=== PATIENT | female | born 1960 | race Caucasian/White ===

== ENCOUNTER 2018-08-10 14:54 | Emergency (ER) | payer OTHER ==
--- OUTSIDE RECORDS SUMMARY | 2018-08-10 14:58 | XMS REPORT ---
:1960 Author Organization [facility] Address [address] [place] [id number] Phone Allergies, Adverse Reactions, Alerts Allergy Name Reaction Description Start Date Severity Status Provider CODEINE Critical Active Husam Vital MD PENICILLIN Critical Active Husam Vital MD Conditions or Problems Problem Name Problem Onset Status Entry Provider Comment Standard Annotate Code Date Date Description DIZZINESS 780.4 Active Husam Dizziness and 06/29 06/29 Zahraa giddiness Hyperlipidemi 272.4 Active Husam Other and a 06/17 02/21 Nemandrew unspecified hyperlipidemia Preventive V70.0 Active Husam Routine general health care 01/03 01/03 Zahraa medical MD examination at a health care facility Screening, V76.51 Active Husam Screening for colon cancer 07/07 07/07 Zahraa malignant neoplasms of colon Hip 719.45 Active Husam Pain in joint arthralgia 03/24 03/24 Nemecek involving pelvic MD region and thigh COPD 496 Active Husam Chronic airway 03/18 03/18 [place] obstruction, not MD elsewhere classified HIV INFECTION 042 2012 Active Husam Human hussein 150 12/13 Nemandrew immunodeficiency MD virus [HIV] disease Hysterectomy, V88.01 2002 Active Husam Acquired absence History of 07/07 Nemecek of both cervix MD and uterus SCHIZOPHRENIA 295.90 1993 Active Husam Unspecified 03/18 Zahraa gunn MD unspecified state Screening for V77.91 Inactive Husam Screening for hyperlipidemi 06/17 06/17 Zahraa lipoid disorders a Medication List Medication Instructions Start Stop Generic NDC Status Provider Patient Date Date Name Instruction NICOTINE NICOTINE 59688269512 Active Malu Active 21-14-7 [place]st MG/24HR TRANSDERMAL KIT NAPROXEN 500 1 by NAPROXEN 36542668457 Active Polina Active MG ORAL mouth Ángel TABLET twice a day as needed for pain BENZTROPINE BENZTROPINE 62817272837 Active Remy Active MESYLATE MESYLATE TABS Perdomo MD TABLET DULOXETINE DULOXETINE 87169287712 Active Remy Active HCL CAPSULE HCL CPEP Perdomo MD DELAYED RELEASE PARTICLES LIPITOR ATORVASTATIN 87517106100 Active Remy Active TABLET CALCIUM TABS Perdomo MD OMEPRAZOLE OMEPRAZOLE 12365571083 Active Remy Active CPDR CPDR Perdomo MD SEROQUEL QUETIAPINE 19951813907 Active Remy Active TABLET FUMARATE TABS Perdomo MD VENLAFAXINE VENLAFAXINE 90457314133 Active Remy Active HCL TABLET HCL TABS Perdomo PROAIR HFA 2 puffs ALBUTEROL 01058620390 Active Husam Active 108 (90 Base) every 4 - SULFATE Zahraa BERRY MCG/ACT 6 hours INHALATION as needed AEROSOL SOLUTION SPIRIVA Inhale 1 TIOTROPIUM 11084992311 Active Husam Active HANDIHALER 18 cap Every BROMIDE Zahraa BERRY MCG Day MONOHYDRATE INHALATION CAPSULE TRIUMEQ One ABACAVIR-DOLU 69562128912 Active Husam Active 600-50-300 MG tablet TEGRAVIR-LAMI Zahraa BERRY ORAL TABLET daily VUD with or without food MECLIZINE 1 by mouth 3 MECLIZINE 103115 MECLIZINE Inactive HCL 25 MG times a day HCL 25 MG HCL ORAL TABLET as needed ORAL TABLET for dizziness MECLIZINE 1 by mouth MECLIZINE 92923663391 No Husam Active HCL 25 MG 3 times a HCL Longer Zahraa ORAL day as Active MD TABLET needed for dizziness Advance Directives Directive Description Start Date DISCUSSED - NO DECISION MADE Immunizations Vaccine Administration Date Value Standard Description influenza immunization given elsewhere influenza virus vaccine, (Flu Vax) has been unspecified formulation administered hepatitis B vaccine #3 given hepatitis B vaccine, unspecified formulation hepatitis B vaccine #2 given hepatitis B vaccine, given unspecified formulation influenza immunization given elsewhere influenza virus vaccine, (Flu Vax) has been unspecified formulation administered hepatitis B vaccine #1 given hepatitis B vaccine, given unspecified formulation pneumococcal given pneumococcal immunization polysaccharide vaccine, administered 23 valent PEDIATRIC PNEUMOCOCCAL given elsewhere pneumococcal conjugate VACCINE ([id number]) #1 vaccine, 13 valent influenza immunization given elsewhere influenza virus vaccine, (Flu Vax) has been unspecified formulation administered Vital Signs Date Name Value Unit Range Description blood pressure, diastolic 79 mm[Hg] BP govea blood pressure, systolic 120 mm[Hg] BP sys height E&M 62 [in_us] Bdy height pulse rate E&M 120 /min Heart rate respiratory rate E&M 20 /min Resp rate temperature E&M 97.7 [degF] Body temperature weight E&M 177 [lb_av] Weight Measured blood pressure, diastolic 74 mm[Hg] BP govea blood pressure, systolic 105 mm[Hg] BP sys height E&M 62 [in_us] Bdy height pulse rate E&M 104 /min Heart rate respiratory rate E&M 16 /min Resp rate temperature E&M 99 [degF] Body temperature weight E&M 175 [lb_av] Weight Measured blood pressure, diastolic 50 mm[Hg] BP govea blood pressure, systolic 86 mm[Hg] BP sys height E&M 62 [in_us] Bdy height pulse rate E&M 100 /min Heart rate respiratory rate E&M 24 /min Resp rate temperature E&M 98.2 [degF] Body temperature weight E&M 169 [lb_av] Weight Measured blood pressure, diastolic 68 mm[Hg] BP govea blood pressure, systolic 97 mm[Hg] BP sys height E&M 62 [in_us] Bdy height pulse rate E&M 106 /min Heart rate temperature E&M 97.5 [degF] Body temperature weight E&M 170.13 [lb_av] Weight Measured blood pressure, diastolic 60 mm[Hg] BP govea blood pressure, systolic 108 mm[Hg] BP sys height E&M 62 [in_us] Bdy height pulse rate E&M 75 /min Heart rate respiratory rate E&M 24 /min Resp rate temperature E&M 99.1 [degF] Body temperature weight E&M 172 [lb_av] Weight Measured Diagnostic Results Date Name Value Unit Range Description Lab Report: CD4/CD8 Ratio Profile, Comp. Metabolic Panel (14), Lipid Wetzel ... - Serology hepatitis C antibody, serum 0.2 0.0-0.9 Lab Report: CD4/CD8 Ratio Profile, Comp. Metabolic Panel (14), Lipid Wetzel ... - Hematology lymphocyte count, blood, automated 1.4 X10E3/UL 10*3/mm3 0.7- 3.1 Lab Report: CD4/CD8 Ratio Profile, Comp. Metabolic Panel (14), Lipid Wetzel ... - Chemistry urea nitrogen, blood 8 mg/dL 6-24 Lab Report: CD4/CD8 Ratio Profile, Comp. Metabolic Panel (14), Lipid Wetzel ... - Serology HIV-1RNA, serum, by PCR, quantitative <20 copies/mL {Copies}/mL Lab Report: CD4/CD8 Ratio Profile, Comp. Metabolic Panel (14), Lipid Wetzel ... - Hematology T-helper cells (CD4) as percent of blood lymphocytes 25.0 % 30.8 -58.5 Lab Report: CD4/CD8 Ratio Profile, Comp. Metabolic Panel (14), Lipid Wetzel ... - Chemistry creatinine, serum 0.69 mg/dL 0.57-1.00 chloride, serum 98 mmol/L 96-106 Lab Report: CD4/CD8 Ratio Profile, Comp. Metabolic Panel (14), Lipid Wetzel ... - Hematology mean corpuscular volume, RBC 101 fL 79-97 Lab Report: CD4/CD8 Ratio Profile, Comp. Metabolic Panel (14), Lipid Wetzel ... - Chemistry triglyceride, serum, fasting 265 mg/dL 0-149 Lab Report: CD4/CD8 Ratio Profile, Comp. Metabolic Panel (14), Lipid Wetzle ... - Hematology erythrocyte (RBC) count 4.09 X10E6/UL 10*6/mm3 3.77-5.28 Lab Report: CD4/CD8 Ratio Profile, Comp. Metabolic Panel (14), Lipid Wetzel ... - Chemistry Estimated Glomerular Filtration Rate (calc) 96 mL/min/1.73m2 > 59 Lab Report: CD4/CD8 Ratio Profile, Comp. Metabolic Panel (14), Lipid Wetzel ... - Hematology platelet count 194 X10E3/UL 10*3/mm3 697-156 8925/03/13 red blood cell distribution width 14.1 % 12.3-15.4 Lab Report: CD4/CD8 Ratio Profile, Comp. Metabolic Panel (14), Lipid Wetzel ... - Chemistry protein, total, serum 7.1 g/dL 6.0-8.5 HDL cholesterol, serum 38 mg/dL >39 Lab Report: CD4/CD8 Ratio Profile, Comp. Metabolic Panel (14), Lipid Wetzel ... - Microbiology hepatitis A antibody, total Negative Negative Lab Report: CD4/CD8 Ratio Profile, Comp. Metabolic Panel (14), Lipid Wetzel ... - Chemistry albumin/globulin ratio, serum 1.3 1.2-2.2 Lab Report: CD4/CD8 Ratio Profile, Comp. Metabolic Panel (14), Lipid Wetzel ... - Hematology eosinophils as percent of blood leukocytes 2 % Not Estab. Lab Report: CD4/CD8 Ratio Profile, Comp. Metabolic Panel (14), Lipid Wetzel ... - Chemistry Absolute Neutrophils 3.3 X10E3/UL 10*3/uL 1.4-7.0 Lab Report: CD4/CD8 Ratio Profile, Comp. Metabolic Panel (14), Lipid Wetzel ... - Hematology basophil count, absolute 0.0 x10E3/uL 0.0-0.2 Lab Report: CD4/CD8 Ratio Profile, Comp. Metabolic Panel (14), Lipid Wetzel ... - Chemistry hepatitis B surface antigen Negative Negative alanine aminotransferase (SGPT), serum 6 U/L 0-32 LDL cholesterol, serum 63 mg/dL 0-99 Lab Report: CD4/CD8 Ratio Profile, Comp. Metabolic Panel (14), Lipid Wetzel ... - Hematology monocytes as percent of blood leukocytes 8 % Not Estab. Lab Report: CD4/CD8 Ratio Profile, Comp. Metabolic Panel (14), Lipid Wetzel ... - Chemistry CD4/CD8 ratio 0.85 0.92-3.72 cholesterol, serum 154 mg/dL 100-199 Office Visit: Adult Followup/H & P/RM # 2 - Hematology T-helper cells (CD4) count, lowest absolute value 150 Lab Report: CD4/CD8 Ratio Profile, Comp. Metabolic Panel (14), Lipid Wetzel ... - Hematology mean corpuscular hemoglobin 33.9 G/DL % 31.5-35.7 concentration, RBC hemoglobin, blood 14.0 g/dL 11.1-15.9 leukocyte count, blood 5.1 X10E3/UL 10*3/mm3 3.4-10.8 Quantiferon Gold TB blood test for Negative Negative tuberculosis screening hematocrit, blood 41.3 % 34.0-46.6 T-suppressor cells (CD8) as percent of 29.5 % 12.0-35.5 blood lymphocytes Lab Report: CD4/CD8 Ratio Profile, Comp. Metabolic Panel (14), Lipid Wetzel ... - Chemistry globulin, serum 3.1 1.5-4.5 vitamin D 25-hydroxy, serum 27.6 ng/mL 30.0-100.0 albumin, serum 4.0 g/dL 3.5-5.5 Internal Correspondence: Pre-Visit Planning H& P Marco A 03/18/15 @ 10:00am LVM - Other List of providers caring for Elodia Cespedes MD, Husam Vital MD, patient Magdalena Segura MD, Rach Avina MARKET DEVELOPMENT SPECIALIST, Samuel Jeffery MARKET DEVELOPMENT SPECIALIST, Myke Coleman NP-C, Lexy Ward MA, Christiano James M.A. ,, Jo Valle MA, Zonia Romero MA, Marlee Prather MA, Kody Baires MA, Corey Encinas MA, Deidra Davison CTA, Tejal Stern CTA. Lab Report: CD4/CD8 Ratio Profile, Comp. Metabolic Panel (14), Lipid Wetzel ... - Chemistry very low density lipoproteins 53 mg/dL 5-40 calcium, serum 9.6 mg/dL 8.7-10.2 Lab Report: CD4/CD8 Ratio Profile, Comp. Metabolic Panel (14), Lipid Wetzel ... - Hematology basophils as percent of blood leukocytes 0 % Not Estab. monocyte count, blood, automated 0.4 X10E3/UL 10*3/uL 0.1-0.9 Lab Report: CD4/CD8 Ratio Profile, Comp. Metabolic Panel (14), Lipid Wetzel ... - Chemistry immature granulocytes, percentage of total cells, blood 0 % Not Estab. urea nitrogen/creatinine ratio, serum 12 9-23 Lab Report: CD4/CD8 Ratio Profile, Comp. Metabolic Panel (14), Lipid Wetzel ... - Genetics/fertility eGFR if 111 mL/min/1.73m2 >59 Lab Report: CD4/CD8 Ratio Profile, Comp. Metabolic Panel (14), Lipid Wetzel ... - Hematology lymphocytes as percent of blood leukocytes 26 % Not Estab. Lab Report: CD4/CD8 Ratio Profile, Comp. Metabolic Panel (14), Lipid Wetzel ... - Chemistry carbon dioxide, venous blood 28 mmol/L 18-29 Lab Report: CD4/CD8 Ratio Profile, Comp. Metabolic Panel (14), Lipid Wetzel ... - Serology rapid plasma reagin antibody, serum Non Reactive Non Reactive Lab Report: Chlamydia/GC Amplification - Lab chlamydia DNA probe Negative Negative Lab Report: Chlamydia/GC Amplification - Microbiology Neisseria gonorrhoeae DNA probe Negative Negative Lab Report: CD4/CD8 Ratio Profile, Comp. Metabolic Panel (14), Lipid Wetzel ... - Chemistry sodium, serum 140 mmol/L 134-144 Lab Report: CD4/CD8 Ratio Profile, Comp. Metabolic Panel (14), Lipid Wetzel ... - Serology hepatitis B core antibody, total Negative Negative Lab Report: CD4/CD8 Ratio Profile, Comp. Metabolic Panel (14), Lipid Wetzel ... - Chemistry alkaline phosphatase, serum 93 U/L 39-117 Lab Report: CD4/CD8 Ratio Profile, Comp. Metabolic Panel (14), Lipid Wetzel ... - Hematology Eosinophil Absolute Count 0.1 X10E3/UL 10*3/uL 0.0-0.4 T-helper cells (CD4) count 350 /UL uL 359-1519 mean corpuscular hemoglobin, RBC 34.2 pg 26.6-33.0 Lab Report: CD4/CD8 Ratio Profile, Comp. Metabolic Panel (14), Lipid Wetzel ... - Chemistry bilirubin, serum, total 0.2 mg/dL 0.0-1.2 Lab Report: CD4/CD8 Ratio Profile, Comp. Metabolic Panel (14), Lipid Wetzel ... - Hematology neutrophils as percent of blood leukocytes 64 % Not Estab. Office Visit: Adult Followup TREATMENT ROOM 2 - Serology human leukocyte antigen B57 negative Lab Report: CD4/CD8 Ratio Profile, Comp. Metabolic Panel (14), Lipid Wetzel ... - Chemistry blood glucose, random 154 mg/dL 65-99 potassium, serum 4.5 mmol/L 3.5-5.2 Lab Report: CD4/CD8 Ratio Profile, Comp. Metabolic Panel (14), Lipid Wetzel ... - Serology hepatitis B surface antibody Non Reactive toxoplasma gondii antibody, IgG <3.0 0.0-5.9 Lab Report: CD4/CD8 Ratio Profile, Comp. Metabolic Panel (14), Lipid Wetzel ... - Chemistry aspartate aminotransferase (SGOT), serum 8 U/L 0-40 absolute CD8 413 109-897 Encounters Date Encounter Provider Code Facility Ofc Vst, Est Level IV Husam Vital MD CPT-22430 [facility] 08:52:18 CDT Ofc Vst, Est Level IV Husam Vital MD CPT-88644 [facility] 09:44:49 SOAP TENDER Ofc Vst, Est Level IV Husam Vital MD CPT-03184 [facility] 09:00:51 CDT Ofc Vst, Est Level IV Husam Vital MD CPT-41573 [facility] 08:21:03 CDT Ofc Vst, Est Level IV Husam Vital MD CPT-36145 [facility] 11:00:32 CDT Ofc Vst, Est Level IV Husam Vital MD CPT-07372 [facility] 09:03:16 SOAP TENDER Ofc Vst, Est Level IV Husam Vital MD CPT-87660 [facility] 08:55:36 CDT Ofc Vst, Est Level III Husam Vital MD CPT-79878 [facility] 15:31:26 CDT Est Patient Detailed - Remy Perdomo MD CPT-71135 [facility] 09:51:50 CDT 70700 Ofc Vst, Est Level III Husam Vital MD CPT-37158 [facility] 10:35:49 CDT Ofc Vst, New Level IV Husam Vital MD CPT-19557 [facility] 11:09:09 CDT Procedures Code Procedure Name Date Entry Date Standard Description CPT-86927 Hepatitis B - Adult 10:55:33 CDT CPT-86624 Hepatitis B - Adult 08:58:24 SOAP TENDER CPT-25525 Hepatitis B - Adult 08:51:40 CDT CPT-61691 Pneumovax Vaccine PPSV23 08:51:40 CDT CPT-31723 Handling of specimen for transfer 09:52:50 CDT CPT-23866 Venipuncture 09:52:50 CDT
--- NOTE | 2018-08-10 15:59 | RAD REPORT ---
EXAM DESCRIPTION: RAD - Chest Single View - 08/10/2018 3:52 pm CLINICAL HISTORY: CHEST PAIN Chest pain. COMPARISON: Chest Single View dated 05/03/2017; Chest Single View dated 05/02/2017; Chest Single View da prieto 04/16/2017; Chest Single View dated 04/15/2017 FINDINGS: Portable technique limits examination quality. The lungs are grossly clear. The heart is normal in size. Small left pleural effusion likely present. IMPRESSION: Small left pleural effusion.
--- NOTE | 2018-08-10 16:00 | RAD REPORT ---
EXAM DESCRIPTION: RAD - Ribs Left - 08/10/2018 3:53 pm CLINICAL HISTORY: trauma Fall COMPARISON: Chest Single View dated 08/10/2018 FINDINGS: Nondisplaced fractures are seen involving the left inferolateral seventh, eighth and ninth ribs. No underlying pneumothorax is seen. A small left pleural effusion is likely present. IMPRESSION: Mild nondisplaced inferolateral left rib fractures as detailed.
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
[2018-08-10 17:29] VITALS: BP 117/82; TEMP 98.2; O2SAT 96
== END 2018-08-10 17:24 | disposition home or self-care (01) ==
LOC: ER 14:54
DX: S22.42XA Multiple fractures of ribs, left side, initial encounter for closed fracture (principal); Y08.89XA Assault by other specified means, initial encounter; Y93.9 Activity, unspecified; Y92.129 Unspecified place in nursing home as the place of occurrence of the external cause; Z21 Asymptomatic human immunodeficiency virus [HIV] infection status; Z88.0 Allergy status to penicillin; Z88.5 Allergy status to narcotic agent; F17.210 Nicotine dependence, cigarettes, uncomplicated
CPT/HCPCS: 71045; 99283

== ENCOUNTER 2018-08-29 16:12 | Inpatient (IN) | payer OTHER ==
--- OUTSIDE RECORDS SUMMARY | 2018-08-29 16:15 | XMS REPORT ---
:1960 Author Organization [facility] Address [address] [place] [id number] Phone Allergies, Adverse Reactions, Alerts Allergy Name [...] Patient Date Date Name Instruction NICOTINE NICOTINE 70732491891 Active Malu Active 21-14-7 [place] MG/24HR TRANSDERMAL KIT NAPROXEN 500 1 by NAPROXEN 03536356287 Active Polina Active MG ORAL mouth Ángel TABLET twice a day as needed for pain BENZTROPINE BENZTROPINE 80813261211 Active Remy Active MESYLATE MESYLATE TABS Perdomo MD TABLET DULOXETINE DULOXETINE 26759021965 Active Remy Active HCL CAPSULE HCL CPEP Perdomo MD DELAYED RELEASE PARTICLES LIPITOR ATORVASTATIN 86524736712 Active Remy Active TABLET CALCIUM TABS Perdomo MD OMEPRAZOLE OMEPRAZOLE 45872703328 Active Remy Active CPDR CPDR Perdomo MD SEROQUEL QUETIAPINE 73843203336 Active Remy Active TABLET FUMARATE TABS Perdomo MD VENLAFAXINE VENLAFAXINE 17568253006 Active Remy Active HCL TABLET HCL TABS Perdomo PROAIR HFA 2 puffs ALBUTEROL 78687509076 Active Husam Active 108 (90 Base) every 4 - SULFATE Zahraa BERRY MCG/ACT 6 hours INHALATION as needed AEROSOL SOLUTION SPIRIVA Inhale 1 TIOTROPIUM 88183660355 Active Husam Active HANDIHALER 18 cap Every BROMIDE Zahraa BERRY MCG Day MONOHYDRATE INHALATION CAPSULE TRIUMEQ One ABACAVIR-DOLU 30712418587 Active Husam Active 600-50-300 MG tablet TEGRAVIR-LAMI Zahraa BERRY ORAL TABLET daily VUD with or without food MECLIZINE 1 by mouth 3 MECLIZINE 380895 MECLIZINE Inactive HCL 25 MG times a day HCL 25 MG HCL ORAL TABLET as needed ORAL TABLET for dizziness MECLIZINE 1 by mouth MECLIZINE 23177362889 No Husam Active HCL 25 MG 3 [...] PEDIATRIC PNEUMOCOCCAL given elsewhere pneumococcal conjugate VACCINE (BCHUEFH23) #1 vaccine, 13 valent influenza immunization given [...] Panel (14), Lipid Wetzel ... - Hematology erythrocyte (RBC) count 4.09 X10E6/UL 10*6/mm3 3.77-5.28 Lab Report: CD4/CD8 Ratio Profile, Comp. Metabolic Panel (14), Lipid Wetzel ... - Chemistry Estimated Glomerular Filtration Rate (calc) 96 mL/min/1.73m2 > 59 Lab Report: CD4/CD8 Ratio Profile, Comp. Metabolic Panel (14), Lipid Wetzel ... - Hematology platelet count 194 X10E3/UL 10*3/mm3 836-377 4712/03/13 red blood cell distribution width 14.1 % [...] MD, patient Magdalena Segura MD, Rach Avina SWIMMING COACH, Samuel Jeffery SWIMMING COACH, Myke Coleman NP-C, Lexy Ward MA, Christiano [...] Vst, Est Level IV Husam Vital MD CPT-82581 [facility] 08:52:18 CDT Ofc Vst, Est Level IV Husam Vital MD CPT-91704 [facility] 09:44:49 TAKER OFF HEMP FIBER Ofc Vst, Est Level IV Husam Vital MD CPT-75781 [facility] 09:00:51 CDT Ofc Vst, Est Level IV Husam Vital MD CPT-29129 [facility] 08:21:03 CDT Ofc Vst, Est Level IV Husam Vital MD CPT-92559 [facility] 11:00:32 CDT Ofc Vst, Est Level IV Husam Vital MD CPT-02512 [facility] 09:03:16 TAKER OFF HEMP FIBER Ofc Vst, Est Level IV Husam Vital MD CPT-14499 [facility] 08:55:36 CDT Ofc Vst, Est Level III Husam Vital MD CPT-74422 [facility] 15:31:26 CDT Est Patient Detailed - Remy Perdomo MD CPT-78196 [facility] 09:51:50 CDT 59992 Ofc Vst, Est Level III Husam Vital MD CPT-17422 [facility] 10:35:49 CDT Ofc Vst, New Level IV Husam Vital MD CPT-63024 [facility] 11:09:09 CDT Procedures Code Procedure Name Date Entry Date Standard Description CPT-76562 Hepatitis B - Adult 10:55:33 CDT CPT-18163 Hepatitis B - Adult 08:58:24 TAKER OFF HEMP FIBER CPT-00216 Hepatitis B - Adult 08:51:40 CDT CPT-49301 Pneumovax Vaccine PPSV23 08:51:40 CDT CPT-28240 Handling of specimen for transfer 09:52:50 CDT CPT-64933 Venipuncture 09:52:50 CDT
[2018-08-29 17:22] LABS: Absolute Monocytes 1.3 K/uL (0.1-1.3); Absolute Neutrophil 11.9 K/uL (1.8-8.0); Basophils % 0.1 % (0-1.3); Eosinophils % 0.1 % (0-4.4); Hematocrit 42.7 % (36.0-45.0); Lymphocytes % 7.3 % (15.3-44.8); MCH 35.5 pg (27.0-35.0); MCV 104.8 fL (80-100); MPV 8.4 fL (7.6-11.3); Monocytes % 8.9 % (3.3-12.3); RBC Red Blood Cell Count 4.08 M/uL (3.86-4.86)
[2018-08-29 17:28] LABS: Protime INR 0.97
--- NOTE | 2018-08-29 17:28 | RAD REPORT ---
EXAM DESCRIPTION: Sachin Single View08/29/2018 5:22 pm CLINICAL HISTORY: Fever COMPARISON: 08/10/2018 FINDINGS: The lungs appear clear of acute infiltrate. The heart is normal size IMPRESSION: No acute abnormalities displayed
[2018-08-29 17:47] LABS: ALT/SGPT 14 U/L (12-78); AST/SGOT 8 U/L (15-37); Albumin 3.2 g/dL (3.4-5.0); Alkaline Phosphatase 143 U/L (45-117); BUN Blood Urea Nitrogen 13 mg/dL (7-18); Bicarbonate 29 mmol/L (21-32); Bilirubin Direct 0.1 mg/dL (0-0.2); Bilirubin Total 0.4 mg/dL (0.2-1.0); Glucose Level 135 mg/dL (74-106); Magnesium 1.9 mg/dL (1.8-2.4); NT PRO-BNP 188 pg/mL (<125); Potassium 4.1 mmol/L (3.5-5.1); Protein, Total 7.6 g/dL (6.4-8.2); Sodium Level 135 mmol/L (136-145); Troponin (Emerg Dept Use Only) < 0.02 ng/mL (0.0-0.045)
--- NOTE | 2018-08-29 17:56 | ER ---
Nurse's Notes [facility] Name: Lucia Arias Age: 57 yrs Sex: Female : 1960 Arrival Date: 08/29/2018 Time: 16:16 Bed 8 Private MD: Diagnosis: Sepsis, unspecified organism;Urinary tract infection, site not specified Presentation: 08/29 16:13 Presenting complaint: EMS states: pt is having LEFT flank pain that started about 10 am tw2 this morning, nothing makes it worse, nothing makes it better, she is tachycardic 120's, hx HIV+, CHF, DM, hyperlipidemia. Transition of care: patient was received from another setting of care ([facility]. Onset of symptoms was August 29, 2018. Risk Assessment: Do you want to hurt yourself or someone else? Patient reports no desire to harm self or others. Initial Sepsis Screen: Does the patient meet any 2 criteria? HR > 90 bpm. Does the patient have a suspected source of infection? No. Patient's initial sepsis screen is negative. Care prior to arrival: None. 16:13 Method Of Arrival: EMS: [facility] tw2 16:13 Acuity: LATONYA 3 tw2 Historical: - Allergies: 17:08 Codeine; bp 17:08 PENICILLINS; bp - Home Meds: 17:08 aspirin 325 mg Oral tab 1 tab once daily [Active]; benztropine 1 mg Oral tab 1 tab once bp daily [Active]; Cymbalta 30 mg Oral cpDR 1 cap once daily [Active]; divalproex 250 mg Oral TbEC 1 tab 2 times per day [Active]; Fanapt 8 mg Oral tab 1 tab 2 times per day [Active]; gabapentin 300 mg Oral cap twice a day [Active]; Lantus 100 unit/mL Sub-Q soln 32 unit nightly [Active]; Lipitor 40 mg Oral tab 1 tab once daily [Active]; proair every 6 hours as needed for wheezing [Active]; Risperdal 1 mg Oral tab 1 tab once daily [Active]; spiriva 18mcg daily [Active]; tramadol 50 mg Oral tab 1 tab at bedtime [Active]; Trileptal 150 mg Oral tab 1 tabs daily [Active]; Triumeq 600-50-300 mg Oral tab 1 tab once daily [Active]; Vitamin D Oral 2000 unit daily [Active]; - PMHx: 17:08 GERD; HIV; Diabetes - IDDM; Chronic pain; pulmonary edema; neuropathy; Hyperlipidemia; bp Difficulty walking; Anxiety; Schizophrenia; LACK OF COORDINATION; Depression; COPD; CAD; Bipolar disorder; - Immunization history:: Adult Immunizations up to date. - Social history:: Smoking status: unknown. - Ebola Screening: : Patient negative for fever greater than or equal to 101.5 degrees Fahrenheit, and additional compatible Ebola Virus Disease symptoms Patient denies exposure to infectious person Patient denies travel to an Ebola-affected area in the 21 days before illness onset No symptoms or risks identified at this time. Screenin:10 Abuse screen: Denies threats or abuse. Denies injuries from another. Nutritional bp screening: No deficits noted. Tuberculosis screening: No symptoms or risk factors identified. Fall Risk None identified. No fall in past 12 months (0 pts). Secondary diagnosis (15 points) SCHIZOPHRENIA. No IV (0 pts). Ambulatory Aid- None/Bed Rest/Nurse Assist (0 pts). Gait- Normal/Bed Rest/Wheelchair (0 pts) Mental Status- Overestimates/Forgets Limitations (15 pts.). Total Tello Fall Scale indicates Low Risk Score (25-44 pts). Fall prevention measures have been instituted. Side Rails Up X 2 Placed close to Nursing Station Frequent Obs/Assesments occuring As available Patient and Family Educated on Fall Prevention Program and strategies. Assessment: 16:20 General: Appears in no apparent distress. Behavior is calm, cooperative, appropriate tw2 for age. Pain: Complains of pain in left flank. Neuro: Level of Consciousness is awake, alert, obeys commands, Oriented to person, place, time, situation. Cardiovascular: Denies chest pain, shortness of breath, Heart tones S1 S2 Patient's skin is warm and dry. Respiratory: Airway is patent Respiratory effort is even, unlabored, Respiratory pattern is regular, symmetrical, Breath sounds are clear bilaterally. GI: Abdomen is round non-distended, obese, Bowel sounds present X 4 quads. : No signs and/or symptoms were reported regarding the genitourinary system. EENT: No signs and/or symptoms were reported regarding the EENT system. EENT: pt is wearing RIGHT hearing aid. Derm: Skin is intact, is healthy with good turgor, Skin is dry. Musculoskeletal: Range of motion: intact in all extremities. 18:52 Reassessment: Patient appears in no apparent distress at this time. No changes from tw2 previously documented assessment. Patient and/or family updated on plan of care and expected duration. Pain level reassessed. 19:33 Reassessment: Patient appears in no apparent distress at this time. Patient and/or aa1 family updated on plan of care and expected duration. Pain level reassessed. Patient is alert, oriented x 3, equal unlabored respirations, skin warm/dry/pink. Report given to Ayaka on 2nd floor. Vital Signs: 16:20 BP 124 / 68; Pulse 134; Resp 19; Temp 99.9(O); Pulse Ox 95% on R/A; Weight 83.91 kg tw2 (R); Height 5 ft. 2 in. (157.48 cm) (R); Pain 7/10; 17:34 BP 115 / 67; Pulse 130; Resp 19; Pulse Ox 95% ; bp 18:52 BP 123 / 76; Pulse 111; Resp 16; Pulse Ox 97% on R/A; tw2 19:37 BP 127 / 69; Pulse 107; Resp 18; Pulse Ox 95% on R/A; aa1 16:20 Body Mass Index 33.84 (83.91 kg, 157.48 cm) tw2 ED Course: 16:16 Patient arrived in ED. mr 16:20 Triage completed. tw2 16:20 Arm band placed on. tw2 16:21 Side rails up X2. residential monitor on. Pulse ox on. NIBP on. tw2 16:23 Justin Ornelas PA is PHCP. jr8 16:23 Jeffy Romero MD is Attending Physician. jr8 16:53 EKG done, by engineering lab technician. reviewed by Justin PANG. sm3 16:58 Contreras Ferreira, AUBREE is Primary Nurse. bp 17:22 X-ray completed. Portable x-ray completed in exam room. Patient tolerated procedure ml well. 17:22 XRAY Chest (1 view) In Process Unspecified. EDMS 17:25 Straight cath inserted, using sterile technique, 18 Fr. Specimen obtained. Returned tw2 cloudy urine. Patient tolerated well. Leo Allred served as instructional developer during procedure. 17:38 Inserted saline lock: 20 gauge in right antecubital area, using aseptic technique. bp Blood collected. 17:55 Monique Mason MD is Hospitalizing Provider. jr8 18:21 Patient moved to DE. charley 19:01 Report given to AUBREE Deleon. tw2 19:29 No provider procedures requiring assistance completed. Patient admitted, IV remains in aa1 place. Administered Medications: 18:15 Drug: Rocephin 1 grams Route: IV; Rate: calculated rate; Site: left antecubital; tw2 18:20 Follow up: Response: No adverse reaction; IV Status: Completed infusion tw2 18:15 Drug: NS 0.9% 1000 ml Route: IV; Rate: 1000 ml; Site: left antecubital; tw2 19:32 Follow up: IV Status: Infusion continued upon admission aa1 18:15 Drug: NS 0.9% 1000 ml Route: IV; Rate: 1000 ml; Site: left antecubital; tw2 19:32 Follow up: IV Status: Infusion continued upon admission aa1 Outcome: 17:55 Decision to Hospitalize by Provider. jr8 19:38 Admitted to Med/surg accompanied by tech, via wheelchair, room 230, on monitor, Report aa1 called to Ayaka 19:38 Condition: stable 19:38 Instructed on the need for admit, Demonstrated understanding of instructions. 19:55 Patient left the ED. aa1 Signatures: Dispatcher [employer] EDMS Adrienne Tierney, RN RN aa1 Alejo, Kailyn mr Anders, Justin Mclaughlin PA PA jr8 Candie Laughlin RN RN tw2 Nicholas Gonzalez Brian, RN RN bp Montes, Shakira 3 Corrections: (The following items were deleted from the chart) 20:14 20:12 Patient left the ED. aa1 aa1
--- NOTE | 2018-08-29 17:56 | EDPHYS ---
Physician Documentation [facility] Name: Lucia Arias Age: 57 yrs Sex: Female : 1960 Arrival Date: 08/29/2018 Time: 16:16 Bed 8 Private MD: ED Physician Jeffy Romero HPI: 08/29 17:26 This 57 yrs old Female presents to ER via EMS with complaints of Flank Pain. jr8 17:26 The patient complains of pain in the left flank. The pain does not radiate. Onset: The jr8 symptoms/episode began/occurred acutely, today. Modifying factors: The symptoms are alleviated by nothing. the symptoms are aggravated by nothing. Associated signs and symptoms: Pertinent positives: cough, Pertinent negatives: diarrhea, nausea, vomiting. Severity of pain: At its worst the pain was moderate in the emergency department the pain is unchanged. The patient has not experienced similar symptoms in the past. The patient has not recently seen a physician. Historical: - Allergies: 17:08 Codeine; bp 17:08 PENICILLINS; bp - Home Meds: 17:08 aspirin 325 mg Oral tab 1 tab once daily [Active]; benztropine 1 mg Oral tab 1 tab once bp daily [Active]; Cymbalta 30 mg Oral cpDR 1 cap once daily [Active]; divalproex 250 mg Oral TbEC 1 tab 2 times per day [Active]; Fanapt 8 mg Oral tab 1 tab 2 times per day [Active]; gabapentin 300 mg Oral cap twice a day [Active]; Lantus 100 unit/mL Sub-Q soln 32 unit nightly [Active]; Lipitor 40 mg Oral tab 1 tab once daily [Active]; proair every 6 hours as needed for wheezing [Active]; Risperdal 1 mg Oral tab 1 tab once daily [Active]; spiriva 18mcg daily [Active]; tramadol 50 mg Oral tab 1 tab at bedtime [Active]; Trileptal 150 mg Oral tab 1 tabs daily [Active]; Triumeq 600-50-300 mg Oral tab 1 tab once daily [Active]; Vitamin D Oral 2000 unit daily [Active]; - PMHx: 17:08 GERD; HIV; Diabetes - IDDM; Chronic pain; pulmonary edema; neuropathy; Hyperlipidemia; bp Difficulty walking; Anxiety; Schizophrenia; LACK OF COORDINATION; Depression; COPD; CAD; Bipolar disorder; - Immunization history:: Adult Immunizations up to date. - Social history:: Smoking status: unknown. - Ebola Screening: : Patient negative for fever greater than or equal to 101.5 degrees Fahrenheit, and additional compatible Ebola Virus Disease symptoms Patient denies exposure to infectious person Patient denies travel to an Ebola-affected area in the 21 days before illness onset No symptoms or risks identified at this time. ROS: 17:26 Eyes: Negative for injury, pain, redness, and discharge, ENT: Negative for injury, jr8 pain, and discharge, Neck: Negative for injury, pain, and swelling, Cardiovascular: Negative for chest pain, palpitations, and edema, Back: Negative for injury and pain, MS/Extremity: Negative for injury and deformity, Skin: Negative for injury, rash, and discoloration, Neuro: Negative for headache, weakness, numbness, tingling, and seizure. 17:26 Respiratory: Positive for cough, Negative for dyspnea on exertion, shortness of breath, sputum production, wheezing. 17:26 Abdomen/GI: Positive for abdominal pain, Negative for nausea, vomiting, and diarrhea, abdominal distension, anorexia, dysphagia, hematemesis, black/tarry stool, rectal pain, rectal bleeding, bowel incontinence, flatulence. Exam: 17:26 Eyes: Pupils equal round and reactive to light, extra-ocular motions intact. Lids and jr8 lashes normal. Conjunctiva and sclera are non-icteric and not injected. Cornea within normal limits. Periorbital areas with no swelling, redness, or edema. ENT: Nares patent. No nasal discharge, no septal abnormalities noted. Tympanic membranes are normal and external auditory canals are clear. Oropharynx with no redness, swelling, or masses, exudates, or evidence of obstruction, uvula midline. Mucous membranes moist. Neck: Trachea midline, no thyromegaly or masses palpated, and no cervical lymphadenopathy. Supple, full range of motion without nuchal rigidity, or vertebral point tenderness. No Meningismus. Cardiovascular: Regular rate and rhythm with a normal S1 and S2. No gallops, murmurs, or rubs. Normal PMI, no JVD. No pulse deficits. Back: No spinal tenderness. No costovertebral tenderness. Full range of motion. Skin: Warm, dry with normal turgor. Normal color with no rashes, no lesions, and no evidence of cellulitis. MS/ Extremity: Pulses equal, no cyanosis. Neurovascular intact. Full, normal range of motion. Neuro: Awake and alert, GCS 15, oriented to person, place, time, and situation. Cranial nerves II-XII grossly intact. Motor strength 5/5 in all extremities. Sensory grossly intact. Cerebellar exam normal. Normal gait. 17:26 Respiratory: the patient does not display signs of respiratory distress, Respirations: normal, Breath sounds: wheezing: expiratory that is mild, is heard in the left posterior lower lobe, right posterior middle lobe and right posterior lower lobe. 17:26 Abdomen/GI: Inspection: abdomen appears normal, Bowel sounds: active, all quadrants, Palpation: soft, in all quadrants, mild abdominal tenderness, in the epigastric area, umbilical area, anterior aspect of left lateral abdomen, right upper quadrant, left upper quadrant and left lower quadrant, mass, is not appreciated, rebound tenderness, is not appreciated, voluntary guarding, is not appreciated, involuntary guarding, is not appreciated, no appreciated organomegaly, Indicators: McBurney's point is not tender, Deluca's sign is negative, Rovsing's sign is negative, Liver: no appreciated palpable abnormalities, tenderness, is not appreciated. Vital Signs: 16:20 BP 124 / 68; Pulse 134; Resp 19; Temp 99.9(O); Pulse Ox 95% on R/A; Weight 83.91 kg tw2 (R); Height 5 ft. 2 in. (157.48 cm) (R); Pain 7/10; 17:34 BP 115 / 67; Pulse 130; Resp 19; Pulse Ox 95% ; bp 18:52 BP 123 / 76; Pulse 111; Resp 16; Pulse Ox 97% on R/A; tw2 19:37 BP 127 / 69; Pulse 107; Resp 18; Pulse Ox 95% on R/A; aa1 16:20 Body Mass Index 33.84 (83.91 kg, 157.48 cm) tw2 MDM: 16:23 Patient medically screened. jr8 17:54 Data reviewed: vital signs, nurses notes, lab test result(s), radiologic studies, CT jr8 scan. Data interpreted: Pulse oximetry: on room air is 95 %. Interpretation: normal. Counseling: I had a detailed discussion with the patient and/or guardian regarding: the historical points, exam findings, and any diagnostic results supporting the discharge/admit diagnosis, lab results, radiology results, the need for further work-up and treatment in the hospital. Physician consultation: Monique Mason MD was called at 17:55, was contacted at 17:55, regarding admission, to the telemetry unit. consult, patient's condition, and will see patient. 08/29 16:42 Order name: Basic Metabolic Panel [facility] 08/29 16:42 Order name: CBC with Diff [facility] 08/29 16:42 Order name: LFT's; Complete Time: 17:54 [facility] 08/29 16:42 Order name: Magnesium; Complete Time: 17:54 [facility] 08/29 16:42 Order name: NT PRO-BNP; Complete Time: 17:54 [facility] 08/29 16:42 Order name: PT-INR; Complete Time: 17:31 [facility] 08/29 16:42 Order name: Troponin (emerg Dept Use Only); Complete Time: 17:54 [facility] 08/29 16:42 Order name: Blood Culture Adult (2) [facility] 08/29 16:42 Order name: Lactate; Complete Time: 17:57 [facility] 08/29 16:42 Order name: Basic Metabolic Panel; Complete Time: 17:54 [facility] 08/29 16:42 Order name: CBC with Automated Diff; Complete Time: 17:28 [facility] 08/29 17:25 Order name: Urine Microscopic Only; Complete Time: 20:42 [facility] 08/29 17:52 Order name: Urine Dipstick--Ancillary (enter results); Complete Time: 20:42 08/29 18:13 Order name: Type and Screen [facility] 08/29 18:13 Order name: Amylase Level; Complete Time: 20:42 [facility] 08/29 18:13 Order name: Creatine Phosphokinase; Complete Time: 20:42 [facility] 08/29 18:13 Order name: C-Reactive Protein; Complete Time: 20:42 [facility] 08/29 18:13 Order name: D-Dimer; Complete Time: 19:14 [facility] 08/29 18:13 Order name: Lipase; Complete Time: 20:42 [facility] 08/29 18:13 Order name: Procalcitonin; Complete Time: 20:42 [facility] 08/29 18:13 Order name: CBC with Automated Diff [facility] 08/29 18:13 Order name: CBC with Automated Diff [facility] 08/29 18:13 Order name: CBC with Automated Diff [facility] 08/29 18:13 Order name: CBC with Automated Diff [facility] 08/29 18:13 Order name: Comprehensive Metabolic Panel [facility] 08/29 18:13 Order name: Comprehensive Metabolic Panel [facility] 08/29 18:13 Order name: Comprehensive Metabolic Panel [facility] 08/29 16:42 Order name: XRAY Chest (1 view); Complete Time: 17:29 [facility] 08/29 16:42 Order name: EKG; Complete Time: 16:42 [facility] 08/29 16:42 Order name: Cardiac monitoring; Complete Time: 16:56 8 08/29 16:42 Order name: EKG - Nurse/Tech; Complete Time: 16:56 [facility] 08/29 16:42 Order name: IV Saline Lock; Complete Time: 16:56 [facility] 08/29 16:42 Order name: Labs collected and sent; Complete Time: 17:33 [facility] 08/29 16:42 Order name: O2 Per Protocol; Complete Time: 16:56 [facility] 08/29 16:42 Order name: O2 Sat Monitoring; Complete Time: 16:56 [facility] 08/29 17:25 Order name: Urine Dipstick-Ancillary (obtain specimen); Complete Time: 19:21 [facility] 08/29 17:30 Order name: Straight Cath - Urine; Complete Time: 17:53 [facility] 08/29 17:46 Order name: CT Abd/Pelvis - W/Contrast [facility] 08/29 18:13 Order name: CONS Pharmacy Consult [facility] 08/29 18:13 Order name: EKG Electrocardiogram [facility] 08/29 18:13 Order name: Comprehensive Metabolic Panel [facility] 08/29 18:13 Order name: Lactate [facility] 08/29 18:13 Order name: Lactate [facility] 08/29 18:13 Order name: Sputum Culture [facility] 08/29 18:14 Order name: ABG Arterial Blood Gas [facility] 08/29 18:38 Order name: CT; Complete Time: 19:14 [facility] Administered Medications: 18:15 Drug: Rocephin 1 grams Route: IV; Rate: calculated rate; Site: left antecubital; tw2 18:20 Follow up: Response: No adverse reaction; IV Status: Completed infusion tw2 18:15 Drug: NS 0.9% 1000 ml Route: IV; Rate: 1000 ml; Site: left antecubital; tw2 19:32 Follow up: IV Status: Infusion continued upon admission aa1 18:15 Drug: NS 0.9% 1000 ml Route: IV; Rate: 1000 ml; Site: left antecubital; tw2 19:32 Follow up: IV Status: Infusion continued upon admission aa1 Disposition: 08/30 07:26 Co-signature as Attending Physician, Jeffy Romero MD I agree with the assessment and shai plan of care. Disposition: 08/29/18 17:55 Hospitalization ordered by Monique Mason for Inpatient Admission. Preliminary diagnosis are Sepsis, unspecified organism, Urinary tract infection, site not specified. - Bed requested for Telemetry/MedSurg (Inpatient). - Status is Inpatient Admission. aa1 - Condition is Stable. - Problem is new. - Symptoms have improved. UTI on Admission? Yes Signatures: [facility] Moon Rodriguez RN RN Adrienne Tierney RN RN aa1 Jeffy Romero MD MD cha Roszak, Josh, PA PA jr8 Flakito Lewis, AYDEN COUNTER WAITRESS/WAITER pm1 Candie Laughlin RN RN tw2 Contreras Ferreira RN RN bp Corrections: (The following items were deleted from the chart) 08/29 18:19 18:13 Platelet Count ordered. [facility] 18:19 18:13 PTT, Activated Partial Thromb ordered. [facility] 18:19 18:13 Troponin I ordered. [facility] 19:03 17:55 Hospitalization Ordered by Monique Mason MD for Inpatient Admission. Preliminary diagnosis is Sepsis, unspecified organism; Urinary tract infection, site not specified. Bed requested for Telemetry/MedSurg (Inpatient). Status is Inpatient Admission. Condition is Stable. Problem is new. Symptoms have improved. UTI on Admission? Yes. jr8 20:12 19:03 08/29/2018 17:55 Hospitalization Ordered by Monique Mason MD for Inpatient aa1 Admission. Preliminary diagnosis is Sepsis, unspecified organism; Urinary tract infection, site not specified. Bed requested for Telemetry/MedSurg (Inpatient). Status is Inpatient Admission. Condition is Stable. Problem is new. Symptoms have improved. UTI on Admission? Yes.
[2018-08-29] MEDS ORDERED: NA CHLORIDE 0.9% 2,000 ML ONE (18:05)
[2018-08-29] MEDS ORDERED: VANCOMYCIN 1 GM in NA CHLORIDE 0.9% 500 ML IVPB ONE (18:05)
[2018-08-29] MEDS ORDERED: CEFTRIAXONE/SWI 1gm 1 GM/10 ML SYR ONE (18:05)
--- NOTE | 2018-08-29 18:28 | P.HP ---
Certification for Inpatient Patient admitted to: Inpatient With expected LOS: >2 Midnights Practitioner: I am a practitioner with admitting privileges, knowledge of patient current condition, hospital course, and medical plan of care. Services: Services provided to patient in accordance with Admission requirements found in Title 42 Section 412.3 of the Code of Federal Regulations Patient History Date of Service: 08/30/18 Reason for admission: Sepsis, UTI History of Present Illness: Patient is a 57-year-old female with past medical history of diabetes hypertension HIV schizophrenia anxiety who is a [facility] [place] comes in with left flank pain. Patient denies any fevers chills nausea or vomiting. Patient's symptoms are constant moderate progressively worsening. No alleviating or aggravating factors. Patient was brought into the ER for further evaluation. Upon arrival she was found to be septic she is tachycardic [place] [address] UA was positive. Sepsis bundle was initiated in the ER. Patient was referred for admission. When the patient was seen in the ER the patient was awake alert oriented x3 in some moderate distress Allergies codeine Allergy (Intermediate, Verified 08/27/15 00:23) Unknown Penicillins Allergy (Intermediate, Verified 08/27/15 00:23) Unknown Home medications list reviewed: Yes Home Medications: Aspirin 325 mg PO DAILY 04/15/17 Atorvastatin Calcium [Lipitor*] 40 mg PO BEDTIME 04/15/17 Gabapentin [Neurontin*] 300 mg PO TID 04/15/17 Benztropine Mesylate [Cogentin] 1 mg PO BID 05/03/17 Iloperidone [Fanapt] 8 mg PO BID 05/03/17 Abacavir/Dolutegravir/Lamivudi [Triumeq Tablet] 1 each PO DAILY 08/29/18 Albuterol Sulfate [Proair Hfa] 2 puff IH Q6HP PRN 08/29/18 Cholecalciferol (Vitamin D3) [Vitamin D3] 2,000 unit PO DAILY 08/29/18 Divalproex [Depakote Sprinkle] 250 mg PO BID 08/29/18 Duloxetine HCl [Cymbalta] 60 mg PO DAILY 08/29/18 Insulin Glargine Human [Lantus] 32 unit SQ BEDTIME 08/29/18 Mag Hydroxide 8% [Milk Of Magnesia] 30 ml PO DAILYPRN PRN 08/29/18 OXcarbazepine [Trileptal] 150 mg PO BID 08/29/18 Tiotropium [Spiriva Handihaler] 18 mcg IH DAILY 08/29/18 Tramadol HCl [Ultram] 50 mg PO BEDTIME 08/29/18 risperiDONE [Risperdal 1 mg tab] 1 mg PO DAILY 08/29/18 - Past Medical/Surgical History Diabetic: No -: Bipolar disorder -: Schizophrenia -: HIV -: COPD -: Depression -: hysterectomy -: appendectomy - Family History Father -: Lung disease, Diabetes Mother -: Lung disease - Social History Smoking Status: Light Tobacco smoker (1-9 cigarettes/day) Counseled patient to stop smoking for: less than 10 minutes Alcohol use: No CD- Drugs: No Caffeine use: Yes Place of Residence: Care Home Review of Systems 10-point ROS is otherwise unremarkable Genitourinary: As per HPI Physical Examination - Vital Signs Temperature: 99.9 F Blood Pressure: 124/68 Pulse: 134 Respirations: 19 Pulse Ox (%): 95 - Physical Exam General: Alert, Oriented x3, Mild distress HEENT: Atraumatic, PERRLA, EOMI, Sclerae nonicteric Neck: Supple, Without JVD or thyroid abnormality Respiratory: Clear to auscultation bilaterally, Normal air movement, Other (No wheezing) Cardiovascular: No edema, Normal pulses, Normal S1 S2, Irregular heart rate/ rhythm Capillary refill: <2 Seconds Gastrointestinal: Normal bowel sounds, Soft and benign, Non-distended, No tenderness Musculoskeletal: No clubbing, No tenderness Integumentary: No rashes, No erythema Neurological: Normal speech, Normal strength at 5/5 x4 extr, Normal tone, Normal affect - Studies Laboratory Data (last 24 hrs) 08/29/18 18:05: Troponin I Cancelled 08/29/18 18:05: APTT Cancelled 08/29/18 18:05: Plt Count Cancelled 08/29/18 17:05: PT 11.5, INR 0.97 08/29/18 17:05: WBC 14.2 H, Hgb 14.5, Hct 42.7, Plt Count 189 08/29/18 17:05: Sodium 135 L, Potassium 4.1, BUN 13, Creatinine 0.80, Glucose 135 H, Magnesium 1.9, Total Bilirubin 0.4, AST 8 L, ALT 14, Alkaline Phosphatase 143 H Imagings Data: Chest x-ray : The lungs appear clear of acute infiltrate. 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: with termite treater helper use Diabetes mellitus complication status: with hyperglycemia Qualified Code(s): E11.65 - Type 2 diabetes mellitus with hyperglycemia; Z79.4 - intermediate project manager (current) use of insulin (4) Anxiety Onset Date: 08/30/18 Current Visit: Yes Status: Acute (5) Schizophrenia Onset Date: 08/30/18 Current Visit: Yes Status: Acute Qualifiers: Schizophrenia type: unspecified Qualified Code(s): F20.9 - Schizophrenia, unspecified (6) Hyperlipidemia Onset Date: 08/30/18 Current Visit: Yes Status: Acute Qualifiers: Hyperlipidemia type: mixed hyperlipidemia Qualified Code(s): E78.2 - Mixed hyperlipidemia (7) HIV (human immunodeficiency virus infection) Onset Date: 07/09/15 Current Visit: No Status: Chronic - Plan Sepsis bundle IV fluid bolus 30 mL/kg IV antibiotics with cefepime and vancomycin patient is immunocompromised due to HIV risk of multi-drug resistant organisms Pseudomonas and MRSA Check lactate per calcitonin ABG Blood cultures sputum cultures and urine culture CT abdomen pelvis pending Discharge Plan: Care Home Plan to discharge in: Greater than 2 days - Advance Directives Does patient have a Living Will: No Does patient have a Durable POA for Healthcare: No - Code Status/Comfort Care Code Status: Full Code
--- NOTE | 2018-08-29 18:35 | RAD REPORT ---
EXAM DESCRIPTION: CTAbdomen Pelvis W Contrast - 08/29/2018 6:25 pm CLINICAL HISTORY: Abdominal pain. IV only;Abd pain COMPARISON: Abdomen Pelvis W Contrast dated 04/15/2017 TECHNIQUE: Biphasic CT imaging of the abdomen and pelvis was performed with 100 ml non-ionic IV cont rast. All CT scans are performed using dose optimization technique as appropriate and may include automated exposure control or mA/KV adjustment according to patient size. FINDINGS: Linear subsegmental atelectasis is present in both posterior lung bases. The liver demonstrates no focal mass or intrahepatic biliary dilatation. The spleen, adrenal glands a nd right kidney are within normal limits. Few small calcifications are seen in the pancreas. The left kidney appears edematous with mild perinephric fat stranding suggesting left pyelonephritis. No bowel obstruction, free air, free fluid or abscess. Moderate fecal material in the colon. The appe ndix is not identified as a discrete structure, however, no secondary findings of appendicitis are id entified. No evidence of significant lymphadenopathy. No suspicious bony findings. A few small air bubbles in the urinary bladder noted. IMPRESSION: Left pyelonephritis without abscess suspected. Air bubbles in the bladder likely indicate cystitis.
[2018-08-29] MEDS ORDERED: D50W 25 GM/50 ML SYRINGE IV PRN (18:43)
[2018-08-29] MEDS ORDERED: GLUCAGON 1 MG/VIAL IM PRN (18:43)
[2018-08-29] MEDS ORDERED: IPRATROPIUM BROM 0.5MG/2.5ML NEB PRN (18:43)
[2018-08-29] MEDS ORDERED: NA CHLORIDE 0.9% 500 ML IV ONE (19:00)
[2018-08-29 20:15] LABS: Urine Blood 2+ (NEG); Urine Glucose NEGATIVE (NEG); Urine Protein 1+ (NEG); Urine Specific Gravity 1.015 (1.005-1.030); Urine pH 6.5 (5.0-7.0)
[2018-08-29 20:21] LABS: Urine Bacteria LOADED /HPF (<20); Urine Culture Reflex Order REFLEXED; Urine RBC NONE SEEN /HPF (NONE SEEN)
[2018-08-29] MEDS: CEFEPIME/SWI 2gm 2 GM/20 ML SYR IVP SCH (20:21)
[2018-08-29] MEDS: ALBUTEROL 2.5 MG/3 ML NEB SOL NEB SCH (20:44)
[2018-08-29] MEDS: INSULIN -REGULAR HUMAN 50 UNIT/0.5 ML ML SQ SCH (21:00)
[2018-08-29] MEDS ORDERED: VANCOMYCIN 2 GM in NA CHLORIDE 0.9% 500 ML IVPB ONE (21:00)
[2018-08-29 23:06] VITALS: BMI 34.0
[2018-08-29] MEDS: NA CHLORIDE 0.9% 1,000 ML IV SCH (23:54)
[2018-08-30] MEDS: ALBUTEROL 2.5 MG/3 ML NEB SOL NEB SCH ×4 (02:24→20:14)
[2018-08-30] MEDS ORDERED: ACETAMINOPHEN 500 MG TAB PO PRN (04:15)
[2018-08-30 05:01] LABS: Absolute Lymphocytes (CBC) 1.5 K/uL (0.7-4.9); Absolute Monocytes 1.1 K/uL (0.1-1.3); Basophils % 0.2 % (0-1.3); Eosinophils % 0.2 % (0-4.4); Hematocrit 37.6 % (36.0-45.0); Lymphocytes % 13.2 % (15.3-44.8); MCH 36.3 pg (27.0-35.0); MCV 103.4 fL (80-100); MPV 8.7 fL (7.6-11.3); Monocytes % 9.6 % (3.3-12.3); RBC Red Blood Cell Count 3.64 M/uL (3.86-4.86)
[2018-08-30 05:19] LABS: ALT/SGPT 9 U/L (12-78); AST/SGOT 7 U/L (15-37); Albumin 2.6 g/dL (3.4-5.0); Alkaline Phosphatase 109 U/L (45-117); BUN Blood Urea Nitrogen 9 mg/dL (7-18); Bicarbonate 26 mmol/L (21-32); Bilirubin Total 0.4 mg/dL (0.2-1.0); Glucose Level 123 mg/dL (74-106); Potassium 3.7 mmol/L (3.5-5.1); Protein, Total 6.4 g/dL (6.4-8.2); Sodium Level 136 mmol/L (136-145)
--- NOTE | 2018-08-30 06:51 | EKG ---
Test Date: 2018-08-29 Test Time: 16:49:02 Forensic Specialist: JASON MEASUREMENT RESULTS: Intervals: Rate: 131 MT: 150 QRSD: 74 QT: 272 QTc: 401 [place]: P: 76 MT: 150 QRS: -71 T: 67 INTERPRETIVE STATEMENTS: Sinus tachycardia Low voltage QRS Left anterior fascicular block Inferior infarct, age undetermined Cannot rule out Anterior infarct, age undetermined Abnormal ECG Compared to ECG 05/03/2017 06:57:18 Left anterior fascicular block now present Myocardial infarct finding now present Sinus rhythm no longer present Electronically Signed On 08-30-18 06:50:28 CDT by Garcia Knapp
[2018-08-30] MEDS: INSULIN -REGULAR HUMAN 50 UNIT/0.5 ML ML SQ SCH ×4 (07:30→21:00)
[2018-08-30] MEDS ORDERED: MAGNESIUM HYDROXIDE 8% 30 ML PO PRN (08:05)
[2018-08-30] MEDS: ILOPERIDONE 8 MG PO SCH ×2 (09:00→21:00)
[2018-08-30] MEDS: LAMIVUDI PO SCH (09:00)
[2018-08-30] MEDS: ABACAVIR PO SCH (09:00)
[2018-08-30] MEDS: DOLUTEGRAVIR PO SCH (09:00)
[2018-08-30] MEDS: DULOXETINE 30 MG CAP PO SCH (09:43)
[2018-08-30] MEDS: GABAPENTIN 300 MG CAP PO SCH ×3 (09:43→21:24)
[2018-08-30] MEDS: DIVALPROEX NA 125 MG CAP PO SCH ×2 (09:43→21:24)
[2018-08-30] MEDS: BENZTROPINE 1 MG TAB PO SCH ×2 (09:43→21:24)
[2018-08-30] MEDS: ASPIRIN 325 MG TAB PO SCH (09:43)
[2018-08-30] MEDS: CEFEPIME/SWI 2gm 2 GM/20 ML SYR IVP SCH ×2 (09:43→21:30)
[2018-08-30] MEDS: RISPERIDONE 1 MG TABLET PO SCH (09:44)
[2018-08-30] MEDS: NA CHLORIDE 0.9% 1,000 ML IV SCH ×2 (09:44→18:00)
[2018-08-30] MEDS: OXcarbazepine 150 MG TAB PO SCH ×2 (09:44→21:26)
[2018-08-30] MEDS ORDERED: VANCOMYCIN 1.5 GM in NA CHLORIDE 0.9% 500 ML IVPB SCH (15:00)
--- NOTE | 2018-08-30 17:12 | CON ---
History Of Present Illness: This is a 57-year-old female coming from [facility] with significant h istory of HIV, coming in for urinary tract infection and sepsis with bacteremia from gram-negative ro ds. The patient also has significant history of diabetes mellitus, hypertension, schizophrenia, anxi ety. She is not a good historian. Most of the history was obtained through medical records and quin lugo. Past Medical History: HIV since 2015, bipolar disorder, schizophrenia, COPD, depression, hysterectom y, appendectomy. Social History: Nonsmoker, nondrinker. Family History: Noncontributory. Medications: Vancomycin and cefepime. See MARs for other medication. Allergies: PENICILLIN, CODEINE. Review of Systems: A 10-point review was performed. Physical Examination: General: This is a 57-year-old female, lying in bed, not in any acute cardiopulmonary distress. Vital Signs: Temperature 99.9, pulse , respiration 19, blood pressure 124/68. HEENT: Unremarkable. Neck: Supple. Lungs: Basal crackles. Heart: S1, S2. Regular. Tachycardic. Abdomen: Soft, nontender. Bowel sounds positive. Extremity: No edema. Laboratory Data: Shows WBC 11.7 down from 14.2, hemoglobin 13.2, platelets are 167. Chemistry shows sodium 136, potassium 3.7, chloride 101, bicarb 26, BUN 9, creatinine 0.6, and glucose 123. Urinaly sis shows WBC more than 50. Urine culture shows the patient has gram-negative rods. Blood cultures growing gram-negative rods. Assessment And Plan: A 57-year-old female with bacteremia secondary to gram-negative amandeep, urinary tr act infection, secondary to gram-negative rods, responding well to cefepime. Recommend to discontinu e vancomycin. The patient has significant history of HIV and still continues to run fevers. Pending culture results. We will follow the patient closely. Dr. Mason for consult. SUSANNA/JOHN Voice ID: [id number] Report ID: [id number]
--- NOTE | 2018-08-30 19:15 | PN ---
Date of Progress Note: 08/30/2018 Subjective: The patient seen and examined. Chart reviewed and case discussed with RN. The patient seems to be doing better. Does not have any complaints. No acute events overnight. Review of Systems: Negative except as above. Medications: List reviewed. Physical Examination: Vital Signs: Temperature 97.6, heart rate 95, blood pressure 102/57, respirations 18, O2 97% on 2 L via nasal cannula. General: Awake, alert, oriented x3, not in acute distress. Appears older than stated age. Obese fe male. CV: S1, S2. No murmurs. Regular rate and rhythm. Peripheral pulses present. Respiratory: Moving air well bilaterally. No wheezing or stridor. Gastrointestinal: Abdomen is soft, nontender, nondistended. Positive bowel sounds. Extremities: No clubbing, cyanosis, or edema. Back: The patient does have some left flank pain. Neurologic: Nonfocal. Laboratory Data: Sodium 136, potassium 3.7, chloride 101, CO2 26, BUN 9, creatinine 0.6, glucose 123 , calcium 8.2. WBC 11.7, H and H 13.2 and 37.6, platelets 167, neutrophils 76.8%. The patient refus ed ABG yesterday. Blood cultures pending. Urine culture prelim shows 3+ gram-negative rods. Assessment And Plan: A 57-year-old female with: 1.Sepsis, improving. WBC count is trending down secondary to acute pyelonephritis. We will continu e with IV fluids and IV antibiotics. Culture growing out gram-negative rods. 2.Acute pyelonephritis. The patient still has some left flank tenderness secondary to gram-negative rods. We will await cultures ID and sensitivity. 3.Diabetes mellitus type 2 with long-term use of insulin with hyperglycemia. We will continue slidi ng scale insulin and home dose. Monitor BBG. 4.Generalized anxiety disorder. 5.Schizophrenia. 6.Hyperlipidemia. Continue home medications. 7.HIV on anti-retroviral. Plan: Continue antibiotics. Follow up on cultures. Likely discharge in next 24-48 hours if continu es to improve. SA/MODL Voice ID: [id number] Report ID: [id number]
[2018-08-30] MEDS: TRAMADOL HCL 50 MG TAB PO SCH (21:23)
[2018-08-30] MEDS: ATORVASTATIN 40 MG TAB PO SCH (21:24)
[2018-08-30] MEDS: INSULIN GLARGINE 100 UNITS/ML SQ SCH (21:32)
[2018-08-31] MEDS: ALBUTEROL 2.5 MG/3 ML NEB SOL NEB SCH ×4 (02:17→19:25)
[2018-08-31] MEDS: NA CHLORIDE 0.9% 1,000 ML IV SCH ×2 (02:40→14:01)
[2018-08-31 05:53] LABS: Absolute Lymphocytes (CBC) 1.2 K/uL (0.7-4.9); Absolute Neutrophil 5.5 K/uL (1.8-8.0); Basophils % 0.3 % (0-1.3); Eosinophils % 0.7 % (0-4.4); Hematocrit 36.4 % (36.0-45.0); Lymphocytes % 15.1 % (15.3-44.8); MCH 36.5 pg (27.0-35.0); MCV 103.9 fL (80-100); MPV 8.7 fL (7.6-11.3); Monocytes % 12.5 % (3.3-12.3)
[2018-08-31 06:04] LABS: ALT/SGPT 12 U/L (12-78); AST/SGOT 7 U/L (15-37); Albumin 2.3 g/dL (3.4-5.0); Alkaline Phosphatase 107 U/L (45-117); BUN Blood Urea Nitrogen 7 mg/dL (7-18); Bicarbonate 26 mmol/L (21-32); Bilirubin Total 0.3 mg/dL (0.2-1.0); Glucose Level 102 mg/dL (74-106); Potassium 3.6 mmol/L (3.5-5.1); Protein, Total 6.2 g/dL (6.4-8.2); Sodium Level 140 mmol/L (136-145)
[2018-08-31] MEDS: INSULIN -REGULAR HUMAN 50 UNIT/0.5 ML ML SQ SCH ×4 (07:30→20:40)
[2018-08-31] MEDS: DOLUTEGRAVIR PO SCH (08:45)
[2018-08-31] MEDS: ILOPERIDONE 8 MG PO SCH ×2 (08:45→20:03)
[2018-08-31] MEDS: ABACAVIR PO SCH (08:45)
[2018-08-31] MEDS: LAMIVUDI PO SCH (08:45)
[2018-08-31] MEDS ORDERED: Meropenem 1000 MG/VIAL IV SCH (09:00)
[2018-08-31] MEDS: ASPIRIN 325 MG TAB PO SCH (10:21)
[2018-08-31] MEDS: DIVALPROEX NA 125 MG CAP PO SCH ×2 (10:22→20:09)
[2018-08-31] MEDS: Meropenem 1,000 MG in NA CHLORIDE 0.9% 100 ML IV SCH ×2 (10:22→16:45)
[2018-08-31] MEDS: DULOXETINE 30 MG CAP PO SCH (10:22)
[2018-08-31] MEDS: BENZTROPINE 1 MG TAB PO SCH ×2 (10:22→20:09)
[2018-08-31] MEDS: GABAPENTIN 300 MG CAP PO SCH ×3 (10:22→20:10)
[2018-08-31] MEDS: RISPERIDONE 1 MG TABLET PO SCH (10:23)
[2018-08-31] MEDS: OXcarbazepine 150 MG TAB PO SCH ×2 (10:55→20:09)
--- NOTE | 2018-08-31 15:39 | RAD REPORT ---
EXAM DESCRIPTION: RAD - Chest Single View - 08/31/2018 3:35 pm CLINICAL HISTORY: confirm picc line placement COMPARISON: Chest Single View dated 08/29/2018; Chest Single View dated 08/10/2018; Chest Single View dated 05/03/2017; Chest Single View dated 05/02/2017 FINDINGS: Portable chest was obtained following placement of a left upper extremity PICC line. The c atheter tip projects over the SVC..
[2018-08-31] MEDS: TRAMADOL HCL 50 MG TAB PO SCH (20:10)
[2018-08-31] MEDS: ATORVASTATIN 40 MG TAB PO SCH (20:10)
[2018-08-31] MEDS: INSULIN GLARGINE 100 UNITS/ML SQ SCH (22:17)
[2018-09-01] MEDS: Meropenem 1,000 MG in NA CHLORIDE 0.9% 100 ML IV SCH ×2 (00:18→10:00)
[2018-09-01] MEDS: NA CHLORIDE 0.9% 1,000 ML IV SCH ×2 (00:19→11:00)
[2018-09-01] MEDS: ALBUTEROL 2.5 MG/3 ML NEB SOL NEB SCH ×3 (01:20→13:49)
--- NOTE | 2018-09-01 03:52 | DS ---
Date of Discharge: 08/31/2018 Admitting Diagnoses: 1. Sepsis. 2. Acute pyelonephritis. 3. Diabetes mellitus type 2 with long-term use of insulin, with hyperglycemia. 4. Generalized anxiety disorder. 5. Schizophrenia. 6. Mixed hyperlipidemia. 7. Human immunodeficiency virus. Discharge Diagnoses: 1. Sepsis, resolving. 2. Acute pyelonephritis, improving secondary to extended-spectrum beta- lactamases Escherichia coli. 3. Diabetes mellitus type 2 with long-term use of insulin with hyperglycemia. 4. Generalized anxiety disorder. 5. Schizophrenia. 6. Mixed hyperlipidemia. 7. Human immunodeficiency virus, on antiretrovirals. 8. Obesity. BMI 34. Consultants: Dr. Damian with Infectious Disease. Hospital Course: The patient is a 57-year-old female from [facility], who has a history of diabetes, hypertension, HIV, schizophrenia, comes in with left flank pain, found to have UTI and the patient was septic. The patient was started on sepsis bundle, given IV fluid hydration. The patient did have some high fevers, 101.7. The patient was also started on IV fluids. The patient responded well to therapy. She was initially placed on broad-spectrum IV antibiotics given her immunocompromised status. The patient responded well. Her white blood cell count normalized. Cultures were obtained. Blood culture showed no growth. However, urine culture did show E. coli secondary to ESBL. Her antibiotics were switched to meropenem and a PICC line was placed for long- term IV antibiotic treatment. The patient was also seen by Dr. Damian with Infectious Disease given her sepsis, her HIV status as well as the resistant organism in her urine culture. The patient was then recommended to finish a course of meropenem for a minimum of 2 weeks. She will need weekly CBC and CMP to monitor her response, ESR and CRP as well. Repeat urine culture after 2 weeks. If still positive, we will extend treatment to a total of 4 weeks. The patient was then doing better. She did not have any further fevers. Her white count was normalized. Vital signs were stable. Her sepsis was improving. Her blood pressure was slightly hypertensive, but she was asymptomatic, did not have any further signs of sepsis. The patient had a PICC line placed and was then cleared for discharge. The patient will be discharged back to [facility] for IV antibiotic treatment. She will need to follow up with her primary care physician in 2 to 3 days, follow up with Infectious Disease doctor in 2 weeks. Return to ER for worsening condition. Medications: As per medication reconciliation list. We will finish up meropenem 1 g IV q.8 hours for 2 weeks. Repeat urine culture at the end of the antibiotics and if still positive, will need to continue meropenem for another 2 weeks. Diet: Diabetic diet. Activity: As tolerated. Total time spent discharging the patient was 33 minutes. Physical Examination: General: Awake, alert, oriented, no acute distress. CV: S1, S2. No murmurs. Respiratory: Moving air well bilaterally. Abdomen: Soft, nontender, nondistended. Positive bowel sounds. Extremities: No clubbing, cyanosis, or edema. Neurologic: Nonfocal. SA/MODL Voice ID: [id number] Report ID: [id number] MTDD
[2018-09-01 05:15] LABS: Absolute Lymphocytes (CBC) 0.9 K/uL (0.7-4.9); Absolute Monocytes 0.7 K/uL (0.1-1.3); Basophils % 0.7 % (0-1.3); Eosinophils % 2.9 % (0-4.4); Hematocrit 35.1 % (36.0-45.0); Lymphocytes % 15.6 % (15.3-44.8); MCH 36.9 pg (27.0-35.0); MCV 104.3 fL (80-100); MPV 8.7 fL (7.6-11.3); Monocytes % 12.6 % (3.3-12.3); RBC Red Blood Cell Count 3.37 M/uL (3.86-4.86)
[2018-09-01 05:28] LABS: ALT/SGPT 13 U/L (12-78); AST/SGOT 8 U/L (15-37); Albumin 2.2 g/dL (3.4-5.0); Alkaline Phosphatase 101 U/L (45-117); BUN Blood Urea Nitrogen 10 mg/dL (7-18); Bicarbonate 28 mmol/L (21-32); Bilirubin Total 0.3 mg/dL (0.2-1.0); Glucose Level 90 mg/dL (74-106); Potassium 4.2 mmol/L (3.5-5.1); Protein, Total 6.1 g/dL (6.4-8.2); Sodium Level 141 mmol/L (136-145)
[2018-09-01] MEDS: INSULIN -REGULAR HUMAN 50 UNIT/0.5 ML ML SQ SCH ×2 (07:30→11:30)
[2018-09-01] MEDS: LAMIVUDI PO SCH (09:00)
[2018-09-01] MEDS: DOLUTEGRAVIR PO SCH (09:00)
[2018-09-01] MEDS: ILOPERIDONE 8 MG PO SCH (09:00)
[2018-09-01] MEDS: ABACAVIR PO SCH (09:00)
[2018-09-01] MEDS: ASPIRIN 325 MG TAB PO SCH (10:01)
[2018-09-01] MEDS: BENZTROPINE 1 MG TAB PO SCH (10:01)
[2018-09-01] MEDS: DIVALPROEX NA 125 MG CAP PO SCH (10:01)
[2018-09-01] MEDS: DULOXETINE 30 MG CAP PO SCH (10:01)
[2018-09-01] MEDS: GABAPENTIN 300 MG CAP PO SCH ×2 (10:01→14:00)
[2018-09-01] MEDS: RISPERIDONE 1 MG TABLET PO SCH (10:01)
[2018-09-01] MEDS: OXcarbazepine 150 MG TAB PO SCH (10:02)
[2018-09-01 14:02] VITALS: O2SAT 95
[2018-09-01 15:27] VITALS: BP 103/60; TEMP 97.3
--- NOTE | 2018-09-01 20:26 | PN ---
Date of Progress Note: 09/01/2018 History: The patient seen and examined. Chart reviewed and case discussed with RN. The patient was unable to be discharged yesterday as antibiotics were not set up until 5 a.m. today. The patient ot herwise did well overnight. No acute events. Review of Systems: Negative except as above. Medications: List reviewed. Physical Examination: Vital Signs: Temperature 97.8, heart rate 81, blood pressure 109/62, respirations 17, O2 95% on 2 L via nasal cannula. General: Awake, alert, oriented x3. No acute distress. CV: S1, S2. No murmurs. Regular rate and rhythm. Peripheral pulses present. Respiratory: Moving air well bilaterally. Abdomen: Soft, nontender, nondistended. Positive bowel sounds. No flank pain. Extremities: No clubbing, cyanosis, edema. Neurologic: Nonfocal. Laboratory Data: Sodium 141, potassium 4.2, chloride 107, CO2 28, BUN 10, creatinine 0.5, glucose 90 , calcium 8.1. WBC 5.9, H and H 12.4, 35.1, platelet 154, neutrophils 68%. Assessment: A 57-year-old female with: 1.Sepsis, resolved. 2.Acute pyelonephritis secondary to extended-spectrum beta-lactamase, Escherichia coli. Continue me ropenem for 2 weeks. 3.Diabetes mellitus, type 2, with long-term use of insulin with hyperglycemia. 4.Generalized anxiety disorder. 5.Schizophrenia. 6.Mixed hyperlipidemia. 7.Human immunodeficiency virus, on antiretrovirals. 8.Obesity, BMI of 34. Plan: Discharge to half-way with long-term IV antibiotics. The patient will need weekly CBC, CM P, ESR, and CRP, and repeat urine culture once meropenem is completed. We need to extend treatment f or 2 more weeks if repeat culture is positive. Follow up with Infectious Disease, Dr. Damian. /JOHN Voice ID: [id number] Report ID: [id number]
== END 2018-09-01 14:25 | DRG 975 ==
LOC: ER 16:12 → ERHOLD 18:15 → 2ND 19:37
PROVIDERS: ADMIT Family Medicine; ATTEND Family Medicine
PROC: 02HV33Z Insertion of Infusion Device into Superior Vena Cava, Percutaneous Approach (ICD-10-PCS; principal; 2018-08-31)
DX: A41.9 Sepsis, unspecified organism (principal); B20 Human immunodeficiency virus [HIV] disease; N10 Acute pyelonephritis; E11.9 Type 2 diabetes mellitus without complications; I10 Essential (primary) hypertension; F20.9 Schizophrenia, unspecified; F41.9 Anxiety disorder, unspecified; F31.9 Bipolar disorder, unspecified; F32.9 Major depressive disorder, single episode, unspecified; F17.210 Nicotine dependence, cigarettes, uncomplicated; E11.65 Type 2 diabetes mellitus with hyperglycemia; E78.5 Hyperlipidemia, unspecified; F41.1 Generalized anxiety disorder; E66.9 Obesity, unspecified; Z79.4 Long term (current) use of insulin; Z68.34 Body mass index [BMI] 34.0-34.9, adult
CPT/HCPCS: 36415; 51702; 71045; 74177; 80048; 80053; 80076; 81003; 81015; 82150; 82550; 82962; 83605; 83690; 83735; 83880; 84145; 84484; 85025; 85379; 85610; 86140; 86850; 86900; 86901; 87040; 87077; 87086; 87088; 87186; 87205; 93005; 94640; 94760; 96361; 96374; 99285; J0692; J0696; J7030; Q9967

== ENCOUNTER 2018-09-06 11:05 | Observation (INO) | payer OTHER ==
--- OUTSIDE RECORDS SUMMARY | 2018-09-06 11:08 | XMS REPORT ---
:1960 Author Organization [facility] Address [address] [place] [phone] Phone Allergies, Adverse Reactions, Alerts Allergy Name [...] Patient Date Date Name Instruction NICOTINE NICOTINE 19318713091 Active Malu Active 21-14-7 [place] MG/24HR TRANSDERMAL KIT NAPROXEN 500 1 by NAPROXEN 83111614277 Active Polina Active MG ORAL mouth Ángel TABLET twice a day as needed for pain BENZTROPINE BENZTROPINE 35918635407 Active Remy Active MESYLATE MESYLATE TABS Perdomo MD TABLET DULOXETINE DULOXETINE 97092840375 Active Remy Active HCL CAPSULE HCL CPEP Perdomo MD DELAYED RELEASE PARTICLES LIPITOR ATORVASTATIN 64576345805 Active Remy Active TABLET CALCIUM TABS Perdomo MD OMEPRAZOLE OMEPRAZOLE 06733395097 Active Remy Active CPDR CPDR Perdomo MD SEROQUEL QUETIAPINE 89901661492 Active Remy Active TABLET FUMARATE TABS Perdomo MD VENLAFAXINE VENLAFAXINE 61499163123 Active Remy Active HCL TABLET HCL TABS Perdomo PROAIR HFA 2 puffs ALBUTEROL 58876067279 Active Husam Active 108 (90 Base) every 4 - SULFATE Zahraa BERRY MCG/ACT 6 hours INHALATION as needed AEROSOL SOLUTION SPIRIVA Inhale 1 TIOTROPIUM 79816475520 Active Husam Active HANDIHALER 18 cap Every BROMIDE Zahraa BERRY MCG Day MONOHYDRATE INHALATION CAPSULE TRIUMEQ One ABACAVIR-DOLU 56014153241 Active Husam Active 600-50-300 MG tablet TEGRAVIR-LAMI Zahraa BERRY ORAL TABLET daily VUD with or without food MECLIZINE 1 by mouth 3 MECLIZINE 528851 MECLIZINE Inactive HCL 25 MG times a day HCL 25 MG HCL ORAL TABLET as needed ORAL TABLET for dizziness MECLIZINE 1 by mouth MECLIZINE 63202369069 No Husam Active HCL 25 MG 3 [...] PEDIATRIC PNEUMOCOCCAL given elsewhere pneumococcal conjugate VACCINE ([id number]) #1 vaccine, 13 valent influenza immunization given [...] - Hematology platelet count 194 X10E3/UL 10*3/mm3 188-238 9196/03/13 red blood cell distribution width 14.1 % [...] MD, patient Magdalena Segura MD, Rach Avina BIKE DESIGNER, Samuel Jeffery BIKE DESIGNER, Myke Coleman NP-C, Lexy Ward MA, Christiano [...] Ratio Profile, Comp. Metabolic Panel (14), Lipid Wtezel ... - Genetics/fertility eGFR if 111 mL/min/1.73m2 [...] Vst, Est Level IV Husam Vital MD CPT-82337 [facility] 08:52:18 CDT Ofc Vst, Est Level IV Husam Vital MD CPT-41652 [facility] 09:44:49 SENIOR ENGINEERING MANAGER Ofc Vst, Est Level IV Husam Vital MD CPT-32615 [facility] 09:00:51 CDT Ofc Vst, Est Level IV Husam Vital MD CPT-14630 [facility] 08:21:03 CDT Ofc Vst, Est Level IV Husam Vital MD CPT-35776 [facility] 11:00:32 CDT Ofc Vst, Est Level IV Husam Vital MD CPT-36727 [facility] 09:03:16 SENIOR ENGINEERING MANAGER Ofc Vst, Est Level IV Husam Vital MD CPT-57698 [facility] 08:55:36 CDT Ofc Vst, Est Level III Husam Vital MD CPT-61879 [facility] 15:31:26 CDT Est Patient Detailed - Remy Perdomo MD CPT-16442 [facility] 09:51:50 CDT 20504 Ofc Vst, Est Level III Husam Vital MD CPT-25994 [facility] 10:35:49 CDT Ofc Vst, New Level IV Husam Vital MD CPT-53653 [facility] 11:09:09 CDT Procedures Code Procedure Name Date Entry Date Standard Description CPT-89934 Hepatitis B - Adult 10:55:33 CDT CPT-78068 Hepatitis B - Adult 08:58:24 SENIOR ENGINEERING MANAGER CPT-77884 Hepatitis B - Adult 08:51:40 CDT CPT-87477 Pneumovax Vaccine PPSV23 08:51:40 CDT CPT-29398 Handling of specimen for transfer 09:52:50 CDT CPT-80273 Venipuncture 09:52:50 CDT
[2018-09-06 12:07] LABS: Absolute Lymphocytes (CBC) 1.6 K/uL (0.7-4.9); Absolute Monocytes 0.4 K/uL (0.1-1.3); Absolute Neutrophil 3.7 K/uL (1.8-8.0); Basophils % 0.7 % (0-1.3); Eosinophils % 3.9 % (0-4.4); Hematocrit 39.9 % (36.0-45.0); Lymphocytes % 27.5 % (15.3-44.8); MCH 35.7 pg (27.0-35.0); MCV 103.7 fL (80-100); Monocytes % 6.5 % (3.3-12.3); RBC Red Blood Cell Count 3.85 M/uL (3.86-4.86)
--- NOTE | 2018-09-06 12:08 | RAD REPORT ---
EXAM DESCRIPTION: RAD - Chest Single View - 09/06/2018 12:03 pm CLINICAL HISTORY: CHEST PAIN Chest pain. COMPARISON: Chest Single View dated 08/31/2018; Chest Single View dated 08/29/2018; Chest Single View dated 08/10/2018; Chest Single View dated 05/03/2017 FINDINGS: Portable technique limits examination quality. Emphysematous changes are present throughout the lungs. The heart is upper limit normal size. No disp laced fractures.Right-sided PICC line has tip in the SVC. IMPRESSION: COPD.
[2018-09-06 12:19] LABS: Protime INR 1.03
[2018-09-06 12:20] LABS: ALT/SGPT 16 U/L (12-78); AST/SGOT 8 U/L (15-37); Albumin 2.9 g/dL (3.4-5.0); Alkaline Phosphatase 124 U/L (45-117); BUN Blood Urea Nitrogen 9 mg/dL (7-18); Bicarbonate 33 mmol/L (21-32); Bilirubin Direct 0.1 mg/dL (0-0.2); Bilirubin Total 0.3 mg/dL (0.2-1.0); Glucose Level 84 mg/dL (74-106); NT PRO-BNP 36 pg/mL (<125); Potassium 4.2 mmol/L (3.5-5.1); Protein, Total 7.2 g/dL (6.4-8.2); Sodium Level 140 mmol/L (136-145); Troponin (Emerg Dept Use Only) < 0.02 ng/mL (0.0-0.045)
--- NOTE | 2018-09-06 12:23 | EKG ---
Test Date: 2018-09-06 Test Time: 11:25:00 Tube Backer: NOELLE MEASUREMENT RESULTS: Intervals: Rate: 76 MT: 184 QRSD: 78 QT: 378 QTc: 425 [place]: P: 74 MT: 184 QRS: -47 T: 47 INTERPRETIVE STATEMENTS: Normal sinus rhythm Left axis deviation Abnormal ECG Compared to ECG 08/29/2018 16:49:02 Sinus tachycardia no longer present Myocardial infarct finding no longer present Electronically Signed On 09-06-18 12:23:41 CDT by Abdon Maguire
[2018-09-06] MEDS ORDERED: HYDROCODONE/APAP 5/325 MG TAB ONE (13:25)
[2018-09-06] MEDS ORDERED: ALBUTEROL 2.5 MG/3 ML NEB SOL ONE (15:07)
--- NOTE | 2018-09-06 16:14 | ER ---
Nurse's Notes [facility] Name: Lucia Arias Age: 57 yrs Sex: Female : 1960 Arrival Date: 09/06/2018 Time: 11:07 Bed 24 Private MD: Diagnosis: Chest pain, unspecified Presentation: 09/06 11:07 Presenting complaint: EMS states: CP that began at 0730 this morning. Pt recently had a ss fall and was diagnosed with multiple rib fx. Pain is reportedly where rib fractures are located and is worse when laying down. Transition of care: patient was not received from another setting of care. Onset of symptoms was September 06, 2018. Risk Assessment: Do you want to hurt yourself or someone else? Patient reports no desire to harm self or others. Care prior to arrival: Medication(s) given: ASA, 81 mg, x 4. 11:07 Method Of Arrival: EMS: [facility] ss 11:07 Acuity: LATONYA 3 ss 13:00 Initial Sepsis Screen: Does the patient meet any 2 criteria? No. Patient's initial kr2 sepsis screen is negative. Does the patient have a suspected source of infection? No. Patient's initial sepsis screen is negative. Historical: - Allergies: 11:09 Codeine; ss 11:09 PENICILLINS; ss - PMHx: 11:09 Anxiety; Bipolar disorder; CAD; Chronic pain; GERD; Hyperlipidemia; LACK OF ss COORDINATION; neuropathy; HIV; Depression; COPD; Diabetes - IDDM; Difficulty walking; pulmonary edema; Schizophrenia; - Immunization history:: Adult Immunizations up to date. - Social history:: Smoking status: Patient uses tobacco products, smokes one-half pack cigarettes per day. - Ebola Screening: : Patient denies exposure to infectious person Patient denies travel to an Ebola-affected area in the 21 days before illness onset. Screenin:30 Abuse screen: Denies threats or abuse. Denies injuries from another. Nutritional ss screening: No deficits noted. Tuberculosis screening: Never had TB. 13:00 Fall Risk Gait- Weak (10 pts.). kr2 Assessment: 11:30 General: Appears in no apparent distress. comfortable, Behavior is calm, cooperative, ss Denies fever, feeling ill, fatigue, chills. General: spoke with nurse at [facility] who reports that patient's R upper arm PICC line has not been cleared to use. prison physician has been contacted that PICC needs adjusting. . Pain: Complains of pain in lateral chest wall pain Pain does not radiate. Pain currently is 5 out of 10 on a pain scale. Quality of pain is described as tender, Pain began has been continuous after fall injury in July. Pt reports she has fractured ribs on that affected side. Pain has gotten worse at 0730 this morning Is continuous. Neuro: Level of Consciousness is awake, alert, obeys commands, Oriented to person, place, time, situation. Cardiovascular: Capillary refill < 3 seconds is brisk in bilateral fingers Patient's skin is warm and dry. Respiratory: Reports pain with cough pain with movement Airway is patent Respiratory effort is even, unlabored, Respiratory pattern is regular, symmetrical, Breath sounds are clear bilaterally. Denies labored breathing. GI: Patient currently denies diarrhea, nausea, vomiting. EENT: Nares are clear Oral mucosa is moist. Throat is clear. Derm: Skin is pink, warm \T\ dry. normal. 13:00 Reassessment: Patient appears in no apparent distress at this time. Patient and/or kr2 family updated on plan of care and expected duration. Pain level reassessed. Patient is alert, oriented x 3, equal unlabored respirations, skin warm/dry/pink. 14:07 Reassessment: Patient appears in no apparent distress at this time. Patient and/or kr2 family updated on plan of care and expected duration. Pain level reassessed. Patient is alert, oriented x 3, equal unlabored respirations, skin warm/dry/pink. Patient states feeling better. 15:00 Reassessment: Patient's O2 saturation down to 89%, had patient reposition with no kr2 improvement. O2 placed at 2 LPM via Marjorie GONZALZE. POLY Mcbride notified. Patient shows no s/sx of distress, respirations even and unlabored. Saturation up to 97% with oxygen. 15:21 Reassessment: Patient appears in no apparent distress at this time. Patient and/or kr2 family updated on plan of care and expected duration. Pain level reassessed. Patient is alert, oriented x 3, equal unlabored respirations, skin warm/dry/pink. Patient denies pain at this time. Patient states symptoms have improved. 15:38 Reassessment: Assisted patient up to ambulate as instructed by provider. Oxygen kr2 saturation decreased to 88-89% on room air after ambulation. Patient with very mild shortness of breath. Placed on oxygen at 2 LPM via NC, saturations up to 95%. Shortness of breath resolved with rest and oxygen. Vital Signs: 11:26 BP 129 / 85; Pulse 75; Resp 16; Temp 98.2(O); Pulse Ox 96% on R/A; Weight 83.91 kg; ss Height 5 ft. 2 in. (157.48 cm); Pain 5/10; 14:07 BP 120 / 86; Pulse 73; Resp 14; Pulse Ox 95% on R/A; kr2 15:21 BP 123 / 82; Pulse 72; Resp 17; Pulse Ox 97% ; kr2 15:38 Pulse Ox 89% on R/A; kr2 15:38 Pulse Ox 95% on 2 lpm NC; kr2 17:30 BP 121 / 70; Pulse 72; Resp 17; Pulse Ox 97% 2 lpm ; kr2 20:08 BP 108 / 69; Pulse 70; Resp 12; Pulse Ox 95% on 2 lpm NC; kr2 11:26 Body Mass Index 33.84 (83.91 kg, 157.48 cm) ss 15:38 after ambulation kr2 ED Course: 11:07 Patient arrived in ED. ss 11:08 Triage completed. ss 11:09 Arm band placed on right wrist. ss 11:19 Jeffy Mcbride PA is PHCP. cp 11:19 Yusef Fernandez MD is Attending Physician. cp 11:20 Warm blanket given. jp3 11:20 Bed in low position. Call light in reach. Side rails up X 1. Side rails up X2. Cardiac jp3 monitor on. Pulse ox on. NIBP on. 11:26 Elva Tay, AUBREE is Primary Nurse. ss 11:30 Patient maintains SpO2 saturation greater than 95% on room air. ss 11:45 Initial lab(s) drawn, by me, sent to lab. EKG done, by ED staff, reviewed by Jeffy PANG. Inserted saline lock: 22 gauge in left antecubital area, using aseptic technique. Blood collected. 11:54 Basic Metabolic Panel Sent. jp3 11:54 CBC with Diff Sent. jp3 11:54 LFT's Sent. jp3 11:54 Basic Metabolic Panel Sent. jp3 11:54 NT PRO-BNP Sent. jp3 11:54 PT-INR Sent. jp3 11:54 Magnesium Sent. jp3 11:54 Troponin (emerg Dept Use Only) Sent. jp3 12:02 X-ray completed. Portable x-ray completed in exam room. Patient tolerated procedure jb2 well. 12:03 XRAY Chest (1 view) In Process Unspecified. EDMS 14:46 REPEAT EKG DONE. 3 14:51 Repeat lab(s) drawn. by oh, sent to lab. kr2 16:13 Mireya Elam MD is Hospitalizing Provider. cp 16:47 CT completed. Patient tolerated procedure well. Patient moved back from CT. me 16:48 CT Chest For PE Angio In Process Unspecified. EDMS 20:36 No provider procedures requiring assistance completed. Patient admitted, IV remains in kr2 place. Administered Medications: 13:23 Drug: HYDROcodone-acetaminophen 5 mg-325 mg 1 tabs Route: PO; kr2 14:08 Follow up: Response: No adverse reaction; Pain is decreased kr2 15:01 Drug: Albuterol 2.5 mg Route: Inhalation; kr2 15:20 Follow up: Response: No adverse reaction; No adverse reaction, oxygen saturation kr2 increased to 97% on room air Outcome: 16:13 Decision to Hospitalize by Provider. cp 20:36 Admitted to Tele accompanied by [facility], via wheelchair, room 224, with oxygen, with kr2 chart, Report called to AUBREE Walsh 20:36 Condition: stable 20:36 Instructed on the need for admit, Demonstrated understanding of instructions. 20:40 Patient left the ED. kr2 Signatures: Dispatcher [employer] EDMS Dave Conde jb2 Elva Tay, RN RN Jeffy Blackmon PA PA cp Jordan, Nathan nj Reaves, Karey, RN RN kr2 Frances Ríos 3 Denys Nieves jp3
--- NOTE | 2018-09-06 16:14 | EDPHYS ---
Physician Documentation [facility] Name: Lucia Arias Age: 57 yrs Sex: Female : 1960 Arrival Date: 09/06/2018 Time: 11:07 Bed 24 Private MD: ED Physician Yusef Fernandez HPI: 09/06 11:30 This 57 yrs old Female presents to ER via EMS with complaints of Chest Pain. cp Historical: - Allergies: 11:09 Codeine; ss 11:09 PENICILLINS; ss - PMHx: 11:09 Anxiety; Bipolar disorder; CAD; Chronic pain; GERD; Hyperlipidemia; LACK OF ss COORDINATION; neuropathy; HIV; Depression; COPD; Diabetes - IDDM; Difficulty walking; pulmonary edema; Schizophrenia; - Immunization history:: Adult Immunizations up to date. - Social history:: Smoking status: Patient uses tobacco products, smokes one-half pack cigarettes per day. - Ebola Screening: : Patient denies exposure to infectious person Patient denies travel to an Ebola-affected area in the 21 days before illness onset. ROS: 11:31 Constitutional: Negative for body aches, chills, fever, poor PO intake. cp 11:31 Eyes: Negative for injury, pain, redness, and discharge. cp 11:31 ENT: Negative for drainage from ear(s), ear pain, sore throat, difficulty swallowing, difficulty handling secretions. 11:31 Neck: Negative for pain with movement, pain at rest, stiffness, tenderness. 11:31 Cardiovascular: Positive for chest pain, of the left lower chest, Negative for edema, palpitations. 11:31 Respiratory: Negative for cough, orthopnea, wheezing. 11:31 Abdomen/GI: Negative for abdominal pain, nausea, vomiting, and diarrhea, anorexia, black/tarry stool, rectal bleeding. 11:31 Back: Negative for pain at rest, pain with movement, radiated pain. 11:31 : Negative for urinary symptoms. 11:31 Skin: Negative for cellulitis, rash. 11:31 Neuro: Negative for altered mental status, headache, syncope, near syncope, weakness. 11:31 All other systems are negative. Exam: 11:31 ECG was reviewed by the Attending Physician. cp 11:35 Constitutional: The patient appears in no acute distress, alert, awake, cp non-diaphoretic, non-toxic, well developed, well nourished. 11:35 Head/Face: Normocephalic, atraumatic. Eyes: Pupils equal round and reactive to light, cp extra-ocular motions intact. Lids and lashes normal. Conjunctiva and sclera are non-icteric and not injected. Cornea within normal limits. Periorbital areas with no swelling, redness, or edema. ENT: Nares patent. No nasal discharge, no septal abnormalities noted. Tympanic membranes are normal and external auditory canals are clear. Oropharynx with no redness, swelling, or masses, exudates, or evidence of obstruction, uvula midline. Mucous membranes moist. 11:35 Neck: External neck: is normal, ROM/movement: is normal, is supple, without pain, no range of motions limitations, no nuchal rigidity. 11:35 Chest/axilla: Inspection: normal, Palpation: crepitus, is not appreciated, tenderness, that is moderate, of the left lower lateral and anterior chest, that partially reproduces the patient's complaints. 11:35 Cardiovascular: Rate: normal, Rhythm: regular, Pulses: Pulses are 2+ in right radial artery and left radial artery. Edema: is not appreciated, JVD: is not appreciated. 11:35 Respiratory: the patient does not display signs of respiratory distress, Respirations: normal, no use of accessory muscles, no retractions, no splinting, no tachypnea, labored breathing, is not present, Breath sounds: are clear throughout, no decreased breath sounds, no stridor, no wheezing. 11:35 Abdomen/GI: Inspection: abdomen appears normal, Bowel sounds: active, all quadrants, Palpation: abdomen is soft and non-tender, in all quadrants, rebound tenderness, is not appreciated, voluntary guarding, is not appreciated, involuntary guarding, is not appreciated. 11:35 Back: pain, is absent, ROM is normal. 11:35 Skin: cellulitis, is not appreciated, no rash present. 11:35 Neuro: Orientation: to person, place \T\ time. Mentation: lucid, able to follow commands, Cerebellar function: is grossly normal, Motor: moves all fours, strength is normal, Sensation: no obvious gross deficits. 14:50 ECG was reviewed by the Attending Physician. cp Vital Signs: 11:26 BP 129 / 85; Pulse 75; Resp 16; Temp 98.2(O); Pulse Ox 96% on R/A; Weight 83.91 kg; ss Height 5 ft. 2 in. (157.48 cm); Pain 5/10; 14:07 BP 120 / 86; Pulse 73; Resp 14; Pulse Ox 95% on R/A; kr2 15:21 BP 123 / 82; Pulse 72; Resp 17; Pulse Ox 97% ; kr2 15:38 Pulse Ox 89% on R/A; kr2 15:38 Pulse Ox 95% on 2 lpm NC; kr2 17:30 BP 121 / 70; Pulse 72; Resp 17; Pulse Ox 97% 2 lpm ; kr2 20:08 BP 108 / 69; Pulse 70; Resp 12; Pulse Ox 95% on 2 lpm NC; kr2 11:26 Body Mass Index 33.84 (83.91 kg, 157.48 cm) ss 15:38 after ambulation kr2 MDM: 11:19 Patient medically screened. cp 12:00 Differential diagnosis: abnormal EKG, acute myocardial infarction, acute pericarditis, cp chest wall pain, cholecystitis, Cholelithiasis costochondritis, pneumonia, pneumothorax, pulmonary embolus, stable angina, unstable angina. 15:35 Data reviewed: vital signs, nurses notes, lab test result(s), EKG, radiologic studies, cp plain films, and as a result, I will admit patient. 15:35 Test interpretation: by ED physician or midlevel provider: ECG, plain radiologic cp studies. 09/06 11:23 Order name: Basic Metabolic Panel cp 09/06 11:23 Order name: CBC with Diff; Complete Time: 12:17 cp 09/06 12:17 Interpretation: Normal except: RBC 3.85; MCV 103.7; MCH 35.7; PLT 270. cp 09/06 11:23 Order name: LFT's; Complete Time: 12:22 cp 09/06 12:22 Interpretation: Normal except: AST 8; ALK 124; ALB 2.9; GLOB 4.3; A/G 0.7. cp 09/06 11:23 Order name: Magnesium; Complete Time: 12:22 cp 09/06 11:23 Order name: NT PRO-BNP; Complete Time: 12:22 cp 09/06 12:47 Interpretation: Within normal limits: NT PRO-BNP 36. cp 09/06 11:23 Order name: PT-INR; Complete Time: 12:46 cp 09/06 12:46 Interpretation: Reviewed. cp 09/06 11:23 Order name: Troponin (emerg Dept Use Only); Complete Time: 12:22 cp 09/06 12:22 Interpretation: TROPED < 0.02; Reviewed. cp 09/06 11:23 Order name: XRAY Chest (1 view); Complete Time: 12:17 cp 09/06 12:46 Interpretation: Report review. cp 09/06 11:23 Order name: EKG; Complete Time: 11:23 cp 09/06 11:23 Order name: Basic Metabolic Panel; Complete Time: 12:22 EDMS 09/06 12:22 Interpretation: Normal except: CO2 33. cp 09/06 14:25 Order name: Troponin I; Complete Time: 15:30 cp 09/06 15:30 Interpretation: Reviewed. cp 09/06 15:53 Order name: CT Chest For PE Angio; Complete Time: 17:18 cp 09/06 11:23 Order name: Cardiac monitoring; Complete Time: 11:39 cp 09/06 11:23 Order name: EKG - Nurse/Tech; Complete Time: 11:39 cp 09/06 11:23 Order name: IV Saline Lock; Complete Time: 11:54 cp 09/06 11:23 Order name: Labs collected and sent; Complete Time: 11:54 cp 09/06 11:23 Order name: O2 Per Protocol; Complete Time: 11:39 cp 09/06 11:23 Order name: O2 Sat Monitoring; Complete Time: 11:39 cp 09/06 14:25 Order name: EKG; Complete Time: 14:25 cp 09/06 14:25 Order name: EKG - Nurse/Tech; Complete Time: 14:50 cp EC:31 Rate is 76 beats/min. Rhythm is regular. MT interval is normal. QRS interval is normal. cp QT interval is normal. Interpreted by me. Reviewed by me. 14:50 Rate is 73 beats/min. Rhythm is regular. MT interval is normal. QRS interval is normal. cp QT interval is normal. Interpreted by me. Reviewed by me. Administered Medications: 13:23 Drug: HYDROcodone-acetaminophen 5 mg-325 mg 1 tabs Route: PO; kr2 14:08 Follow up: Response: No adverse reaction; Pain is decreased kr2 15:01 Drug: Albuterol 2.5 mg Route: Inhalation; kr2 15:20 Follow up: Response: No adverse reaction; No adverse reaction, oxygen saturation kr2 increased to 97% on room air Disposition: 17:53 Co-signature as Attending Physician, Yusef Fernandez MD. Disposition: 09/06/18 16:13 Hospitalization ordered by Mireya Elam for Observation. Preliminary diagnosis is Chest pain, unspecified. - Bed requested for Telemetry/MedSurg (observation). - Status is Observation. kr2 - Condition is Stable. - Problem is new. - Symptoms have improved. UTI on Admission? No Signatures: Dispatcher [employer] EDMS Moon Rodriguez RN RN dw Elva Tay RN RN Jeffy Mcbride PA PA Yusef Reyes MD MD Micheline Bravo RN RN kr2 Corrections: (The following items were deleted from the chart) 19:18 16:13 Hospitalization Ordered by Mireya Elam MD for Observation. Preliminary diagnosis dw is Chest pain, unspecified. Bed requested for Telemetry/MedSurg (observation). Status is Observation. Condition is Stable. Problem is new. Symptoms have improved. UTI on Admission? No. cp 20:40 19:18 09/06/2018 16:13 Hospitalization Ordered by Mireya Elam MD for Observation. kr2 Preliminary diagnosis is Chest pain, unspecified. Bed requested for Telemetry/MedSurg (observation). Status is Observation. Condition is Stable. Problem is new. Symptoms have improved. UTI on Admission? No. dw
--- NOTE | 2018-09-06 17:05 | RAD REPORT ---
EXAM DESCRIPTION: CT - Chest For Pe Angio - 09/06/2018 4:47 pm CLINICAL HISTORY: Chest pain COMPARISON: April 2017 TECHNIQUE: Dynamically enhanced axial 3 mm thick images of the chest were obtained during administra tion of <100> mL Isovue 370 IV contrast. Coronal and oblique reconstruction images were generated and reviewed. Exam utilizes a protocol for optimal evaluation of pulmonary arterial tree. Maximum intensity projections 3D imaging was utilized All CT scans are performed using dose optimization technique as appropriate and may include automated exposure control or mA/KV adjustment according to patient size. FINDINGS: A pulmonary embolus is not seen. A thoracic aortic aneurysm is not noted. A pleural effusion is not seen. A pericardial effusion is not seen. Mild bilateral pulmonary opacities probably represent atelectasis Mild mediastinal and hilar lymphadenopathy is without significant change IMPRESSION: Negative for a pulmonary embolism.
--- NOTE | 2018-09-06 17:38 | EKG ---
Test Date: 2018-09-06 Test Time: 14:43:49 Strip Picker: JASON MEASUREMENT RESULTS: Intervals: Rate: 73 WV: 192 QRSD: 78 QT: 392 QTc: 431 [place]: P: 54 WV: 192 QRS: -50 T: 37 INTERPRETIVE STATEMENTS: Normal sinus rhythm Left anterior fascicular block Abnormal ECG Compared to ECG 09/06/2018 11:25:00 Left anterior fascicular block now present Left-axis deviation no longer present Electronically Signed On 09-06-18 17:37:32 CDT by Abdon Maguire
[2018-09-06] MEDS ORDERED: ALPRAZOLAM 0.25 MG TABLET PO PRN (19:51)
[2018-09-06] MEDS ORDERED: ACETAMINOPHEN 500 MG TAB PO PRN (19:51)
[2018-09-06] MEDS ORDERED: MORPHINE 4 MG/ML SYR IV PRN (19:51)
[2018-09-06] MEDS: METOPROLOL TAR 50 MG TAB PO SCH (20:59)
[2018-09-06 21:29] VITALS: BMI 34.4
[2018-09-06] MEDS ORDERED: MAGNESIUM HYDROXIDE 8% 30 ML PO PRN (23:54)
[2018-09-06] MEDS ORDERED: ALBUTEROL INHALER 60 PUFF/8 GM IH PRN (23:54)
[2018-09-07] MEDS ORDERED: MEROPENEM 1 GM IV SCH (01:00)
[2018-09-07] MEDS: Meropenem 1 GM/100 ML BAG IV SCH ×3 (01:41→18:08)
[2018-09-07] MEDS ORDERED: NA CHLORIDE 0.9% 250 ML ONE (01:43)
[2018-09-07 06:01] LABS: Absolute Lymphocytes (CBC) 1.4 K/uL (0.7-4.9); Absolute Monocytes 0.4 K/uL (0.1-1.3); Absolute Neutrophil 2.9 K/uL (1.8-8.0); Basophils % 0.8 % (0-1.3); Eosinophils % 4.1 % (0-4.4); Hematocrit 38.1 % (36.0-45.0); Lymphocytes % 28.1 % (15.3-44.8); MCH 35.7 pg (27.0-35.0); MCV 104.6 fL (80-100); MPV 8.4 fL (7.6-11.3); Monocytes % 8.3 % (3.3-12.3); RBC Red Blood Cell Count 3.64 M/uL (3.86-4.86)
[2018-09-07 06:23] LABS: BUN Blood Urea Nitrogen 9 mg/dL (7-18); Bicarbonate 31 mmol/L (21-32); Glucose Level 99 mg/dL (74-106); Potassium 4.1 mmol/L (3.5-5.1); Sodium Level 142 mmol/L (136-145); Troponin I < 0.02 ng/mL (0.0-0.045)
[2018-09-07] MEDS ORDERED: ALBUTEROL 2.5 MG/3 ML NEB SOL NEB PRN ×2 (08:05→10:48)
--- NOTE | 2018-09-07 08:40 | P.HP ---
Certification for Inpatient Patient admitted to: Observation With expected LOS: <2 Midnights Patient will require the following post-hospital care: None Practitioner: I am a practitioner with admitting privileges, knowledge of patient current condition, hospital course, and medical plan of care. Services: Services provided to patient in accordance with Admission requirements found in Title 42 Section 412.3 of the Code of Federal Regulations Patient History Date of Service: 09/06/18 Reason for admission: Chest pain rule out acute coronary syndrome History of Present Illness: Patient is a 57-year-old female who came into the hospital with chest pain. Patient has been living at [facility] and has been on IV antibiotics for prior admission for sepsis. While she was there she started experiencing chest discomfort. It was mainly in the sternal region. There was no diaphoresis. There was known nausea or vomiting. Patient's symptoms appeared to be musculoskeletal. However, with her multiple risk factors we decided to observe her in the hospital. Patient is a poor historian and has a hard time communicating effectively how she is feeling. She has multiple psychiatric issues and she has HIV which we have had her her on medications. She was admitted to the hospital for observation to be ruled out for acute coronary syndrome. Allergies codeine Allergy (Intermediate, Verified 08/27/15 00:23) Unknown Penicillins Allergy (Intermediate, Verified 08/27/15 00:23) Unknown Home Medications: Aspirin 325 mg PO DAILY 04/15/17 Atorvastatin Calcium [Lipitor*] 40 mg PO BEDTIME 04/15/17 Gabapentin [Neurontin*] 300 mg PO TID 04/15/17 Benztropine Mesylate [Cogentin*] 1 mg PO BID 05/03/17 Iloperidone [Fanapt] 8 mg PO BID 05/03/17 Abacavir/Dolutegravir/Lamivudi [Triumeq 600-50-300 mg Tablet] 1 each PO DAILY Albuterol Sulfate [Proair Hfa] 2 puff IH Q6HP PRN 08/29/18 Cholecalciferol (Vitamin D3) [Vitamin D3] 2,000 unit PO DAILY 08/29/18 Divalproex [Depakote Sprinkle*] 250 mg PO BID 08/29/18 Duloxetine HCl [Cymbalta] 60 mg PO DAILY 08/29/18 Insulin Glargine Human [Lantus*] 32 unit SQ BEDTIME 08/29/18 Mag Hydroxide 8% [Milk Of Magnesia*] 30 ml PO DAILYPRN PRN 08/29/18 OXcarbazepine [Trileptal*] 150 mg PO BID 08/29/18 Tiotropium [Spiriva Handihaler*] 18 mcg IH DAILY 08/29/18 Tramadol HCl [Ultram] 50 mg PO BEDTIME 08/29/18 risperiDONE [Risperdal 1 mg tab*] 1 mg PO DAILY 08/29/18 Meropenem [Merrem 1 GM/100 ML NS IVPB] 1 gm IV Q8HR #1 bag 08/31/18 - Past Medical/Surgical History Has patient received pneumonia vaccine in the past: Yes Diabetic: No -: Bipolar disorder -: Schizophrenia -: HIV -: COPD -: Depression -: hysterectomy -: appendectomy - Family History Father Medical History: Lung disease, Diabetes Mother Medical History: Lung disease - Social History Smoking Status: Smoker current status UNK Alcohol use: No CD- Drugs: No Caffeine use: Yes [facility] Review of Systems 10-point ROS is otherwise unremarkable Physical Examination - Vital Signs Temperature: 97.9 F Blood Pressure: 98/52 Pulse: 66 Respirations: 15 Pulse Ox (%): 94 - Physical Exam General: Alert, In no apparent distress, Oriented x3 HEENT: Atraumatic, PERRLA, Mucous membr. moist/pink, EOMI, Sclerae nonicteric Neck: Supple, 2+ carotid pulse no bruit, No LAD, Without JVD or thyroid abnormality Respiratory: Clear to auscultation bilaterally, Normal air movement Cardiovascular: Regular rate/rhythm, Normal S1 S2, No murmurs Gastrointestinal: Normal bowel sounds, Soft and benign, Non-distended, No tenderness Musculoskeletal: No clubbing, No swelling, No tenderness Integumentary: No rashes Neurological: Normal gait, Normal speech, Normal strength at 5/5 x4 extr, Normal tone, Sensation intact, Cranial nerves 3-12 intact, Normal affect Lymphatics: No axilla or inguinal lymphadenopathy - Studies Laboratory Data (last 24 hrs) 09/06/18 14:50: Troponin I < 0.02 09/06/18 11:45: PT 12.2, INR 1.03 09/06/18 11:45: WBC 6.0, Hgb 13.7, Hct 39.9, Plt Count 270 D 09/06/18 11:45: Sodium 140, Potassium 4.2, BUN 9, Creatinine 0.60, Glucose 84, Magnesium 2.0, Total Bilirubin 0.3, AST 8 L, ALT 16, Alkaline Phosphatase 124 H Assessment & Plan - Problems (Diagnosis) (1) Chest pain, rule out acute myocardial infarction Current Visit: Yes Status: Acute (2) Diabetes mellitus Onset Date: 08/30/18 Current Visit: No Status: Acute Qualifiers: Diabetes mellitus type: type 2 (3) Schizophrenia Onset Date: 08/30/18 Current Visit: No Status: Acute Qualifiers: (4) Substance abuse Onset Date: 05/03/17 Current Visit: No Status: Acute (5) UTI (urinary tract infection) Onset Date: 07/09/15 Current Visit: No Status: Acute (6) HIV (human immunodeficiency virus infection) Onset Date: 07/09/15 Current Visit: No Status: Chronic - Plan 1. Serial troponins and EKG 2. At this time will hold off on Cardiology consultation as her symptoms appear to be musculoskeletal. Will do serial troponins and EKG and if this is negative she can follow-up as an outpatient. 3. Echocardiogram to assess wall motion 4. Anti-platelet therapy, anti coagulation, beta-bernardino, statin, and O2 as needed 5. IV morphine for pain 6. Nitro p.r.n. 7. Resume antibiotics for sepsis 8. Review chest x-ray for PICC line placement 9. Strict blood pressure and blood sugar control 10. GI and DVT prophylaxis Discharge Plan: Home Plan to discharge in: 24 Hours - Advance Directives Does patient have a Living Will: No Does patient have a Durable POA for Healthcare: No - Code Status/Comfort Care Code Status Assessed: Yes Code Status: Full Code Critical Care: No Time Spent Managing PTS Care (In Minutes): 50
[2018-09-07] MEDS ORDERED: LAMIVUDI PO SCH (09:00)
[2018-09-07] MEDS ORDERED: ENOXAPARIN 40 MG/0.4 ML SQ SCH (09:00)
[2018-09-07] MEDS ORDERED: RISPERIDONE 1 MG TABLET PO SCH (09:00)
[2018-09-07] MEDS ORDERED: ILOPERIDONE 8 MG PO SCH (09:00)
[2018-09-07] MEDS ORDERED: ASPIRIN EC 81 MG TAB PO SCH (09:00)
[2018-09-07] MEDS ORDERED: ASPIRIN 325 MG TAB PO SCH (09:00)
[2018-09-07] MEDS ORDERED: TIOTROPIUM 18 MCG IH SCH (09:00)
[2018-09-07] MEDS ORDERED: VITAMIN D 1000 UNIT TAB PO SCH (09:00)
[2018-09-07] MEDS: METOPROLOL TAR 50 MG TAB PO SCH (09:00)
[2018-09-07] MEDS ORDERED: DOLUTEGRAVIR PO SCH (09:00)
[2018-09-07] MEDS ORDERED: ABACAVIR PO SCH (09:00)
[2018-09-07] MEDS ORDERED: OXcarbazepine 150 MG TAB PO SCH (09:00)
[2018-09-07] MEDS ORDERED: BENZTROPINE 1 MG TAB PO SCH (09:00)
[2018-09-07] MEDS ORDERED: DULOXETINE 30 MG CAP PO SCH (09:00)
[2018-09-07] MEDS ORDERED: [UNRECOGNIZED DRUG - OTHER] PO SCH (09:00)
[2018-09-07] MEDS ORDERED: DIVALPROEX NA 125 MG CAP PO SCH (09:00)
[2018-09-07] MEDS: GABAPENTIN 100 MG CAP PO SCH ×2 (09:53→13:42)
--- NOTE | 2018-09-07 10:54 | ECHO ---
HEIGHT: 5 ft 1 in WEIGHT: 182 lb 3 oz DATE OF STUDY: 09/07/[address]: 2-DIMENSIONAL: YES M.MODE: YES DOPPLER: YES COLOR FLOW: YES TDS: YES PORTABLE: NO DEFINITY: NO BUBBLE STUDY: NO DIAGNOSIS: CHEST PAIN. RULE OUT ACUTE CORONARY SYNDROME CARDIAC HISTORY: CATHERIZATION: NO SURGERY: NO PROSTHETIC VALVE: NO PACEMAKER: NO MEASUREMENTS (cm) DIASTOLIC (NORMALS) SYSTOLIC (NORMALS) IVSd 0.9 (0.6-1.2) LA Diam 3.3 (1.9-4.0) LVEF 69% LVIDd 4.4 (3.5-5.7) LVIDs 2.7 (2.0-3.5) %FS 39% LVPWd 1.1 (0.6-1.2) Ao Diam 2.5 (2.0-3.7) 2 DIMENSIONAL ASSESSMENT: RIGHT ATRIUM: NORMAL LEFT ATRIUM: NORMAL RIGHT VENTRICLE: NORMAL LEFT VENTRICLE: NORMAL TRICUSPID VALVE: NORMAL MITRAL VALVE: NORMAL PULMONIC VALVE: NORMAL AORTIC VALVE: NORMAL PERICARDIAL EFFUSION: NONE AORTIC ROOT: NORMAL LEFT VENTRICULAR WALL MOTION: NORMAL. DOPPLER/COLOR FLOW: TRACE MITRAL REGURGITATION. COMMENTS: NORMAL 2D ECHOCARDIOGRAM. TRACE MITRAL REGURGITATION. TECHNOLOGIST: OPAL CARRILLO RDCS
--- NOTE | 2018-09-07 12:26 | EKG ---
Test Date: 2018-09-07 Test Time: 09:31:31 Furniture Repairer: DARIEN MEASUREMENT RESULTS: Intervals: Rate: 76 OR: 190 QRSD: 76 QT: 370 QTc: 416 [place]: P: 69 OR: 190 QRS: -54 T: 52 INTERPRETIVE STATEMENTS: Normal sinus rhythm Left axis deviation Low voltage QRS Abnormal ECG Compared to ECG 09/06/2018 14:43:49 Left-axis deviation now present Low QRS voltage now present Left anterior fascicular block no longer present Electronically Signed On 09-07-18 12:25:21 CDT by Abdon Maguire
[2018-09-07] MEDS: ALBUTEROL 2.5 MG/3 ML NEB SOL NEB SCH ×2 (13:53→19:48)
--- NOTE | 2018-09-07 13:55 | CON ---
CARDIOLOGY CONSULT Chief Complaint: Chest pain. History Of Present Illness: Ms. Arias has been having the same chest pain for about 3 weeks. It is well localized in the lower axilla lateral to the breast. She points to it with 1 finger. She says when she takes a deep breath, it gets worse; if she coughs, it gets worse. Most of the time, it hines s not bother her too much. I think, the nurses at the longterm where she lives are the ones that encouraged her to seek attention for and I do not think it was so much her idea. She is not worried about her heart in a problem. She was a former cigarette smoker, does not smoke now and has emphyse ma. She has HIV and lives in a longterm. She has a PICC line and receives a lot of antibiotics. Medications: Her home medications are abacavir, dolutegravir, albuterol, alprazolam, aspirin, Lipito r, benztropine, divalproex, duloxetine, Trileptal, tiotropium, risperidone, tramadol, cholecalciferol , iloperidone or Fanapt, meropenem an IV infusion through a PICC line 1 g every 8 hours, and insulin. Physical Examination: General: She is alert, oriented, pleasant, very hard of hearing. Lungs: Clear. Heart: Within normal limits. There is no friction rub. Abdomen: Soft. Extremities: Normal distal pulses. No cyanosis, clubbing, or edema. Laboratory Data: EKG reveals a leftward axis, no infarction, injury, or ischemia. Troponins are all less than 0.02, she has had 4 of them. Plan: Given echocardiogram shows no effusion, I do not see the need to do an ischemic workup, in no way this does seem to be ischemic heart disease. We can see if there is a pericardial effusion, I do ubt if there is. I think, she has chest wall pain or perhaps pleurisy and does not require an extensive workup or further hospitalization. GRANT Voice ID: [id number] Report ID: [id number]
[2018-09-07 17:33] VITALS: BP 97/56; TEMP 98
[2018-09-07 19:54] VITALS: O2SAT 94
[2018-09-07] MEDS ORDERED: TRAMADOL HCL 50 MG TAB PO SCH (21:00)
[2018-09-07] MEDS ORDERED: ATORVASTATIN 20 MG TAB PO SCH (21:00)
[2018-09-07] MEDS ORDERED: INSULIN GLARGINE 100 UNITS/ML SQ SCH (21:00)
== END 2018-09-07 20:33 ==
LOC: ER 11:05 → ERHOLD 17:20 → 2ND 20:26
PROVIDERS: ADMIT Family Medicine; ATTEND Hospitalist
DX: R07.9 Chest pain, unspecified (principal); Z21 Asymptomatic human immunodeficiency virus [HIV] infection status; F31.9 Bipolar disorder, unspecified; F20.9 Schizophrenia, unspecified; F32.9 Major depressive disorder, single episode, unspecified; Z88.0 Allergy status to penicillin; Z79.82 Long term (current) use of aspirin; Z87.891 Personal history of nicotine dependence
CPT/HCPCS: 36415; 71045; 71275; 80048; 80076; 83735; 83880; 84484; 85025; 85610; 93005; 93306; 94640; 97163; 99285; G0378; J1650; J2185; Q9967

== ENCOUNTER 2018-10-24 00:06 | Emergency (ER) | payer OTHER ==
--- OUTSIDE RECORDS SUMMARY | 2018-10-24 00:08 | XMS REPORT ---
:1960 Author Organization [facility] [place] [facility] Address [address] [place] [phone] Phone Allergies, Adverse Reactions, Alerts Allergy Name [...] 03/18 [place] obstruction, not MD elsewhere classified Diabetes 250.00 05/2018 Active Husam Diabetes mellitus mellitus, [place] without mention type II MD of complication, type II or unspecified type, not stated as uncontrolled HIV INFECTION 042 2012 Active Husam Human hussein 150 12/13 Nemandrew immunodeficiency MD virus [HIV] disease Hysterectomy, V88.01 2002 Active Husam Acquired absence History of 07/07 [place] of both cervix MD and uterus SCHIZOPHRENIA 295.90 1993 Active Husam Unspecified 03/18 Nemandrew schizophrenia, MD unspecified state Screening for V77.91 Inactive Husam Screening for hyperlipidemi 06/17 06/17 Nemecekellie lipoid disorders a Medication List Medication Instructions Start Stop Generic NDC Status Provider Patient Date Date Name Instruction NICOTINE NICOTINE 66304301635 Active Malu Active Hurst MG/24HR TRANSDERMAL KIT NAPROXEN 500 1 by NAPROXEN 93277508227 Active Polina Active MG ORAL mouth Ángel TABLET twice a day as needed for pain BENZTROPINE BENZTROPINE 44434578278 Active Remy Active MESYLATE MESYLATE TABS Perdomo MD TABLET DULOXETINE DULOXETINE 69985318166 Active Remy Active HCL CAPSULE HCL CPEP Perdomo DELAYED RELEASE PARTICLES LIPITOR ATORVASTATIN 70166670863 Active Remy Active TABLET CALCIUM TABS Perdomo MD OMEPRAZOLE OMEPRAZOLE 49500109285 Active Remy Active CPDR CPDR Perdomo SEROQUEL QUETIAPINE 16425366906 Active Remy Active TABLET FUMARATE TABS Perdomo VENLAFAXINE VENLAFAXINE 18078299938 Active Remy Active HCL TABLET HCL TABS Perdomo PROAIR HFA 2 puffs ALBUTEROL 50897288849 Active Husam Active 108 (90 Base) every 4 - SULFATE Zahraa BERRY MCG/ACT 6 hours INHALATION as needed AEROSOL SOLUTION SPIRIVA Inhale 1 TIOTROPIUM 92202114855 Active Husam Active HANDIHALER 18 cap Every BROMIDE Zahraa BERRY MCG Day MONOHYDRATE INHALATION CAPSULE TRIUMEQ One ABACAVIR-DOLU 17321119229 Active Husam Active 600-50-300 MG tablet TEGRAVIR-LAMI Zahraa BERRY ORAL TABLET daily VUD with or without food MECLIZINE 1 by mouth 3 MECLIZINE 019547 MECLIZINE Inactive HCL 25 MG times a day HCL 25 MG HCL ORAL TABLET as needed ORAL TABLET for dizziness MECLIZINE 1 by mouth MECLIZINE 74615208750 No Husam Active HCL 25 MG 3 [...] PEDIATRIC PNEUMOCOCCAL given elsewhere pneumococcal conjugate VACCINE ([id number]) #1 vaccine, 13 valent influenza immunization given elsewhere influenza virus vaccine, (Flu Vax) has been unspecified formulation administered Vital Signs Date Name Value Unit Range Description blood pressure, diastolic 73 mm[Hg] BP govea blood pressure, systolic 96 mm[Hg] BP sys height E&M 62 [in_us] Bdy height pulse rate E&M 78 /min Heart rate respiratory rate E&M 16 /min Resp rate temperature E&M 98.2 [degF] Body temperature weight E&M 188.25 [lb_av] Weight Measured blood pressure, diastolic 79 mm[Hg] BP govea [...] temperature weight E&M 175 [lb_av] Weight Measured Diagnostic Results Date Name Value Unit Range Description Lab Report: CD4/CD8 Ratio Profile, Comp. Metabolic Panel (14), Lipid Wetzel ... - Chemistry very low density lipoproteins 29 mg/dL 5-40 hepatitis B surface antigen Negative Negative chloride, serum 98 mmol/L 96-106 Lab Report: CD4/CD8 Ratio Profile, Comp. Metabolic Panel (14), Lipid Wetzel ... - Microbiology hepatitis A antibody, total Negative Negative Lab Report: CD4/CD8 Ratio Profile, Comp. Metabolic Panel (14), Lipid Wetzel ... - Chemistry urea nitrogen, blood 9 mg/dL 6-24 Lab Report: CD4/CD8 Ratio Profile, Comp. Metabolic Panel (14), Lipid Wetzel ... - Hematology Quantiferon Gold TB blood test for tuberculosis Negative Negative screening Office Visit: Adult Followup TREATMENT ROOM 2 - Serology human leukocyte antigen B57 negative Lab Report: CD4/CD8 Ratio Profile, Comp. Metabolic Panel (14), Lipid Wetzel ... - Hematology mean corpuscular hemoglobin 34.0 G/DL % 31.5-35.7 concentration, RBC erythrocyte (RBC) count 4.01 X10E6/UL 10*6/mm3 3.77-5.28 Lab Report: CD4/CD8 Ratio Profile, Comp. Metabolic Panel (14), Lipid Wetzel ... - Serology hepatitis C antibody, serum 0.3 0.0-0.9 Lab Report: CD4/CD8 Ratio Profile, Comp. Metabolic Panel (14), Lipid Wetzel ... - Chemistry absolute CD8 449 625-932 4928/10/30 Absolute Neutrophils 4.3 X10E3/UL 10*3/uL 1.4-7.0 LDL cholesterol, serum 69 mg/dL 0-99 urea nitrogen/creatinine ratio, serum 12 9-23 Lab Report: CD4/CD8 Ratio Profile, Comp. Metabolic Panel (14), Lipid Wetzel ... - Hematology mean corpuscular volume, RBC 102 fL 79-97 Lab Report: CD4/CD8 Ratio Profile, Comp. Metabolic Panel (14), Lipid Wetzel ... - Chemistry HDL cholesterol, serum 41 mg/dL >39 Lab Report: CD4/CD8 Ratio Profile, Comp. Metabolic Panel (14), Lipid Wetzel ... - Hematology monocytes as percent of blood leukocytes 8 % Not Estab. Lab Report: CD4/CD8 Ratio Profile, Comp. Metabolic Panel (14), Lipid Wetzel ... - Chemistry creatinine, serum 0.77 mg/dL 0.57-1.00 albumin/globulin ratio, serum 1.7 1.2-2.2 cholesterol, serum 139 mg/dL 638-480 2533/10/30 bilirubin, serum, total 0.3 mg/dL 0.0-1.2 Lab Report: CD4/CD8 Ratio Profile, Comp. Metabolic Panel (14), Lipid Wetzel ... - Hematology Eosinophil Absolute Count 0.2 X10E3/UL 10*3/uL 0.0-0.4 Lab Report: Chlamydia/GC Amplification - Lab chlamydia DNA probe Negative Negative Lab Report: CD4/CD8 Ratio Profile, Comp. Metabolic Panel (14), Lipid Wetzel ... - Chemistry aspartate aminotransferase (SGOT), serum 12 U/L 0-40 Lab Report: CD4/CD8 Ratio Profile, Comp. Metabolic Panel (14), Lipid Wetzel ... - Hematology red blood cell distribution width 12.4 % 12.3-15.4 leukocyte count, blood 6.8 X10E3/UL 10*3/mm3 3.4-10.8 Lab Report: CD4/CD8 Ratio Profile, Comp. Metabolic Panel (14), Lipid Wetzel ... - Chemistry potassium, serum 4.4 mmol/L 3.5-5.2 immature granulocytes, percentage of total cells, 0 % Not Estab. blood albumin, serum 4.2 g/dL 3.5-5.5 Office Visit: Adult Followup/H & P/RM # 2 - Hematology T-helper cells (CD4) count, lowest absolute value 150 Lab Report: CD4/CD8 Ratio Profile, Comp. Metabolic Panel (14), Lipid Wetzel ... - Hematology lymphocyte count, blood, automated 1.7 X10E3/UL 10*3/mm3 0.7- 3.1 hematocrit, blood 40.9 % 34.0-46.6 Lab Report: Chlamydia/GC Amplification - Microbiology Neisseria gonorrhoeae DNA probe Negative Negative Lab Report: CD4/CD8 Ratio Profile, Comp. Metabolic Panel (14), Lipid Wetzel ... - Chemistry sodium, serum 140 mmol/L 134-144 Lab Report: CD4/CD8 Ratio Profile, Comp. Metabolic Panel (14), Lipid Wetzel ... - Serology toxoplasma gondii antibody, IgG <3.0 0.0-5.9 Lab Report: CD4/CD8 Ratio Profile, Comp. Metabolic Panel (14), Lipid Wetzel ... - Hematology neutrophils as percent of blood leukocytes 64 % Not Estab. basophils as percent of blood leukocytes 0 % Not Estab. Internal Correspondence: Pre-Visit Planning H& P Marco A 03/18/15 @ 10:00am LVM - Other List of providers caring for Elodia Cespedes MD, Husam Vital MD, patient Magdalena Segura MD, Rahc REAP, Samuel Jeffery TILE ROOFER, Myke Coleman MEDICAID BILLING CLERK-C, Lexy Ward MA, Christiano James M.A. ,, Jo Valle MA, Zonia Romero MA, Marlee Prather MA, Kody Baires MA, Corey Encinas MA, Deidra Davison CTA, Tejal Stern CTA. Lab Report: CD4/CD8 Ratio Profile, Comp. Metabolic Panel (14), Lipid Wetzel ... - Serology HIV-1RNA, serum, by PCR, <20 copies/mL {Copies}/mL quantitative rapid plasma reagin antibody, Non Reactive Non Reactive serum Lab Report: CD4/CD8 Ratio Profile, Comp. Metabolic Panel (14), Lipid Wetzel ... - Chemistry CD4/CD8 ratio 0.98 0.92-3.72 carbon dioxide, venous blood 26 mmol/L 20-29 Lab Report: CD4/CD8 Ratio Profile, Comp. Metabolic Panel (14), Lipid Wetzel ... - Serology hepatitis B core antibody, total Negative Negative Lab Report: CD4/CD8 Ratio Profile, Comp. Metabolic Panel (14), Lipid Wetzel ... - Chemistry triglyceride, serum, fasting 143 mg/dL 0-149 calcium, serum 9.4 mg/dL 8.7-10.2 alanine aminotransferase (SGPT), serum 11 U/L 0-32 Lab Report: CD4/CD8 Ratio Profile, Comp. Metabolic Panel (14), Lipid Wetzel ... - Hematology mean corpuscular hemoglobin, RBC 34.7 pg 26.6-33.0 Lab Report: CD4/CD8 Ratio Profile, Comp. Metabolic Panel (14), Lipid Wetzel ... - Chemistry protein, total, serum 6.7 g/dL 6.0-8.5 alkaline phosphatase, serum 141 U/L 39-117 Lab Report: CD4/CD8 Ratio Profile, Comp. Metabolic Panel (14), Lipid Wetzel ... - Hematology T-helper cells (CD4) as percent of blood 25.9 % 30.8-58.5 lymphocytes hemoglobin, blood 13.9 g/dL 11.1-15.9 T-suppressor cells (CD8) as percent of blood 26.4 % 12.0-35.5 lymphocytes lymphocytes as percent of blood leukocytes 25 % Not Estab. Lab Report: CD4/CD8 Ratio Profile, Comp. Metabolic Panel (14), Lipid Wetzel ... - Genetics/fertility eGFR if 98 mL/min/1.73m2 >59 Lab Report: CD4/CD8 Ratio Profile, Comp. Metabolic Panel (14), Lipid Wetzel ... - Hematology basophil count, absolute 0.0 x10E3/uL 0.0-0.2 Lab Report: CD4/CD8 Ratio Profile, Comp. Metabolic Panel (14), Lipid Wetzel ... - Chemistry globulin, serum 2.5 1.5-4.5 Estimated Glomerular Filtration Rate 85 mL/min/1.73m2 >59 (calc) vitamin D 25-hydroxy, serum 27.6 ng/mL 30.0-100.0 Lab Report: CD4/CD8 Ratio Profile, Comp. Metabolic Panel (14), Lipid Wetzel ... - Serology hepatitis B surface antibody Non Reactive Lab Report: CD4/CD8 Ratio Profile, Comp. Metabolic Panel (14), Lipid Wetzel ... - Hematology eosinophils as percent of blood leukocytes 3 % Not Estab. Lab Report: CD4/CD8 Ratio Profile, Comp. Metabolic Panel (14), Lipid Wetzel ... - Chemistry blood glucose, random 129 mg/dL 65-99 Lab Report: CD4/CD8 Ratio Profile, Comp. Metabolic Panel (14), Lipid Wetzel ... - Hematology monocyte count, blood, automated 0.6 X10E3/UL 10*3/uL 0.1-0.9 T-helper cells (CD4) count 440 /UL uL 359-1519 platelet count 173 X10E3/UL 10*3/mm3 150-379 Encounters Date Encounter Provider Code Facility Ofc Vst, Est Level IV Husam Vital MD CPT-88384 [facility] 08:19:52 CDT Ofc Vst, Est Level IV Husam Vital MD CPT-62712 [facility] 08:52:18 CDT Ofc Vst, Est Level IV Husam Vital MD CPT-59378 [facility] 09:44:49 DEVELOPMENT MECHANIC Ofc Vst, Est Level IV Husam Vital MD CPT-93966 [facility] 09:00:51 CDT Ofc Vst, Est Level IV Husam Vital MD CPT-01634 [facility] 08:21:03 CDT Ofc Vst, Est Level IV Husam Vital MD CPT-98461 [facility] 11:00:32 CDT Ofc Vst, Est Level IV Husam Vital MD CPT-06873 [facility] 09:03:16 DEVELOPMENT MECHANIC Ofc Vst, Est Level IV Husam Vital MD CPT-14308 [facility] [place] 08:55:36 CDT Ofc Vst, Est Level III Husam Vital MD CPT-45359 [facility] 15:31:26 CDT Est Patient Detailed - Remy Perdomo MD CPT-09745 [facility] 09:51:50 CDT 27173 Ofc Vst, Est Level III Husam Vital MD CPT-27247 [facility] 10:35:49 CDT Ofc Vst, New Level IV Husam Vital MD CPT-33560 [facility] 11:09:09 CDT Procedures Code Procedure Name Date Entry Date Standard Description CPT-34982 Hepatitis B - Adult 10:55:33 CDT CPT-91797 Hepatitis B - Adult 08:58:24 DEVELOPMENT MECHANIC CPT-37272 Hepatitis B - Adult 08:51:40 CDT CPT-76167 Pneumovax Vaccine PPSV23 08:51:40 CDT CPT-69813 Handling of specimen for transfer 09:52:50 CDT CPT-17836 Venipuncture 09:52:50 CDT
[2018-10-24 00:53] LABS: Absolute Lymphocytes (CBC) 2.1 K/uL (0.7-4.9); Absolute Monocytes 0.6 K/uL (0.1-1.3); Basophils % 0.5 % (0-1.3); Eosinophils % 3.5 % (0-4.4); Hematocrit 37.3 % (36.0-45.0); Lymphocytes % 35.4 % (15.3-44.8); MCH 35.5 pg (27.0-35.0); MCV 101.9 fL (80-100); MPV 9.3 fL (7.6-11.3); Monocytes % 9.5 % (3.3-12.3); RBC Red Blood Cell Count 3.66 M/uL (3.86-4.86)
[2018-10-24 01:18] LABS: Protime INR 0.87
[2018-10-24 01:21] LABS: BUN Blood Urea Nitrogen 11 mg/dL (7-18); Bicarbonate 30 mmol/L (21-32); Glucose Level 170 mg/dL (74-106); NT PRO-BNP 20 pg/mL (<125); Potassium 3.6 mmol/L (3.5-5.1); Sodium Level 140 mmol/L (136-145); Troponin (Emerg Dept Use Only) < 0.02 ng/mL (0.0-0.045)
--- NOTE | 2018-10-24 03:41 | EDPHYS ---
Physician Documentation [facility] Name: Lucia Arias Age: 57 yrs Sex: Female : 1960 Arrival Date: 10/24/2018 Time: 00:15 Bed 7 Private MD: ED Physician Yusef Fernandez HPI: 10/24 00:50 This 57 yrs old Female presents to ER via EMS with complaints of Chest Pain. gs 00:50 The patient or guardian reports chest pain that is located primarily in the anterior gs chest wall. Onset: acutely, at 22:30. The pain does not radiate. Associated signs and symptoms: Pertinent negatives: diaphoresis, lightheadedness, shortness of breath, syncope. The chest pain is described as dull. Duration: The patient or guardian reports multiple episodes, that are intermittent, that wax and wane, with no pattern. Modifying factors: The symptoms are alleviated by nothing. the symptoms are aggravated by nothing. Severity of pain: At its worst the pain was moderate in the emergency department the pain has improved moderately. The patient has experienced similar episodes in the past, several times. Historical: - Allergies: 00:21 Codeine; tl2 00:21 PENICILLINS; tl2 - Home Meds: 00:21 aspirin 325 mg Oral tab 1 tab once daily [Active]; benztropine 1 mg Oral tab 1 tab once tl2 daily [Active]; Cymbalta 30 mg Oral cpDR 1 cap once daily [Active]; divalproex 250 mg Oral TbEC 1 tab 2 times per day [Active]; Fanapt 8 mg Oral tab 1 tab 2 times per day [Active]; gabapentin 300 mg Oral cap twice a day [Active]; Lantus 100 unit/mL Sub-Q soln 32 unit nightly [Active]; Lipitor 40 mg Oral tab 1 tab once daily [Active]; proair every 6 hours as needed for wheezing [Active]; Risperdal 1 mg Oral tab 1 tab once daily [Active]; spiriva 18mcg daily [Active]; tramadol 50 mg Oral tab 1 tab at bedtime [Active]; Trileptal 150 mg Oral tab 1 tabs daily [Active]; Triumeq 600-50-300 mg Oral tab 1 tab once daily [Active]; Vitamin D Oral 2000 unit daily [Active]; - PMHx: 00:21 Anxiety; Bipolar disorder; CAD; Chronic pain; COPD; Depression; Diabetes - IDDM; tl2 Difficulty walking; GERD; HIV; Hyperlipidemia; LACK OF COORDINATION; neuropathy; pulmonary edema; Schizophrenia; - Immunization history:: Adult Immunizations up to date. - Social history:: Smoking status: Patient/guardian denies using tobacco. - Ebola Screening: : No symptoms or risks identified at this time. ROS: 00:50 All other systems are negative. gs Exam: 00:50 Head/Face: Normocephalic, atraumatic. Eyes: Pupils equal round and reactive to light, gs extra-ocular motions intact. Lids and lashes normal. Conjunctiva and sclera are non-icteric and not injected. Cornea within normal limits. Periorbital areas with no swelling, redness, or edema. ENT: Nares patent. No nasal discharge, no septal abnormalities noted. Tympanic membranes are normal and external auditory canals are clear. Oropharynx with no redness, swelling, or masses, exudates, or evidence of obstruction, uvula midline. Mucous membranes moist. Neck: Trachea midline, no thyromegaly or masses palpated, and no cervical lymphadenopathy. Supple, full range of motion without nuchal rigidity, or vertebral point tenderness. No Meningismus. Chest/axilla: Normal chest wall appearance and motion. Nontender with no deformity. No lesions are appreciated. Cardiovascular: Regular rate and rhythm with a normal S1 and S2. No gallops, murmurs, or rubs. Normal PMI, no JVD. No pulse deficits. Respiratory: Lungs have equal breath sounds bilaterally, clear to auscultation and percussion. No rales, rhonchi or wheezes noted. No increased work of breathing, no retractions or nasal flaring. Abdomen/GI: Soft, non-tender, with normal bowel sounds. No distension or tympany. No guarding or rebound. No evidence of tenderness throughout. Back: No spinal tenderness. No costovertebral tenderness. Full range of motion. Skin: Warm, dry with normal turgor. Normal color with no rashes, no lesions, and no evidence of cellulitis. MS/ Extremity: Pulses equal, no cyanosis. Neurovascular intact. Full, normal range of motion. Neuro: Awake and alert, GCS 15, oriented to person, place, time, and situation. Cranial nerves II-XII grossly intact. Motor strength 5/5 in all extremities. Sensory grossly intact. Cerebellar exam normal. Normal gait. 00:50 Constitutional: The patient appears alert, awake. 00:50 ECG was reviewed by the Attending Physician. Vital Signs: 00:21 BP 124 / 75; Pulse 82; Resp 20; Temp 98(O); Pulse Ox 93% on R/A; Weight 86.18 kg; tl2 Height 5 ft. 6 in. (167.64 cm); Pain 7/10; 01:38 BP 104 / 69; Pulse 79; Resp 14; Pulse Ox 94% on 2 lpm NC; tl2 02:24 BP 103 / 65; Pulse 77; Resp 17; Pulse Ox 93% on 2 lpm NC; tl2 03:19 BP 99 / 66; Pulse 78; Resp 19; Pulse Ox 92% on 2 lpm NC; tl2 04:20 BP 104 / 66; Pulse 76; Resp 13; Pulse Ox 93% on 2 lpm NC; tl2 00:21 Body Mass Index 30.67 (86.18 kg, 167.64 cm) tl2 MDM: 00:34 Patient medically screened. gs 00:50 Differential diagnosis: abnormal EKG, acute myocardial infarction, coronary artery gs disease chest wall pain. Data reviewed: vital signs, nurses notes. 03:40 Counseling: I had a detailed discussion with the patient and/or guardian regarding: the gs historical points, exam findings, and any diagnostic results supporting the discharge/admit diagnosis, the need for outpatient follow up. Response to treatment: the patient's symptoms have resolved after treatment, the patient's pain is gone, and as a result, I will discharge patient. 10/24 00:19 Order name: Basic Metabolic Panel; Complete Time: 01:48 10/24 00:19 Order name: CBC with Diff; Complete Time: :48 10/24 00:19 Order name: NT PRO-BNP; Complete Time: :48 10/24 00:19 Order name: PT-INR; Complete Time: :48 10/24 00:19 Order name: Troponin (emerg Dept Use Only); Complete Time: 01:48 10/24 01:50 Order name: Troponin (emerg Dept Use Only); Complete Time: 03:40 10/24 00:19 Order name: XRAY Chest (1 view) 10/24 00:19 Order name: EKG; Complete Time: 00:20 10/24 00:19 Order name: Cardiac monitoring; Complete Time: 00:37 10/24 00:19 Order name: EKG - Nurse/Tech; Complete Time: 00:37 10/24 00:19 Order name: IV Saline Lock; Complete Time: 00:37 10/24 00:19 Order name: Labs collected and sent; Complete Time: 00: 10/24 00:19 Order name: O2 Per Protocol; Complete Time: 00: 10/24 00:19 Order name: O2 Sat Monitoring; Complete Time: 00: EC:50 Rate is 82 beats/min. Rhythm is regular. IN interval is normal. QRS interval is normal. Q waves are Old. T waves are Flattened. Clinical impression: NSR w/ Non-specific ST/T Changes and Abnormal EKG without significant change. Interpreted by me. Administered Medications: No medications were administered Disposition: 10/24/18 03:41 Discharged to Home. Impression: Chest pain, unspecified. - Condition is Stable. - Discharge Instructions: Nonspecific Chest Pain. - SBAR form, Medication Reconciliation Form, Thank You Letter, Antibiotic Education, Prescription Opioid Use form. - Follow up: Private Physician; When: 2 - 3 days; Reason: Re-evaluation by your physician. Signatures: Dispatcher [employer] EDCiara Eddy RN RN tl2 Yusef Fernandez MD MD Corrections: (The following items were deleted from the chart) 04:36 03:41 10/24/2018 03:41 Discharged to Home. Impression: Chest pain, unspecified. tl2 Condition is Stable. Forms are Medication Reconciliation Form, Thank You Letter, Antibiotic Education, Prescription Opioid Use. Follow up: Private Physician; When: 2 - 3 days; Reason: Re-evaluation by your physician.
--- NOTE | 2018-10-24 03:41 | ER ---
Nurse's Notes [facility] Name: Lucia Arias Age: 57 yrs Sex: Female : 1960 Arrival Date: 10/24/2018 Time: 00:15 Bed 7 Private MD: Diagnosis: Chest pain, unspecified Presentation: 10/24 00:15 Presenting complaint: EMS states: midsternal chest pain that started tonight. Received tl2 2 nitro, mylanta and aspirin at the long-term. Pt states pain is improving. Transition of care: patient was received from another setting of care (long-term care facility), [place]. Onset of symptoms was October 23, 2018 at 22:00. Risk Assessment: Do you want to hurt yourself or someone else? Patient reports no desire to harm self or others. Initial Sepsis Screen: Does the patient meet any 2 criteria? No. Patient's initial sepsis screen is negative. Does the patient have a suspected source of infection? No. Patient's initial sepsis screen is negative. Care prior to arrival: IV initiated. 22 GA, in the left antecubital area, Oxygen administered. via nasal cannula. 00:15 Method Of Arrival: EMS: [facility] tl2 00:15 Acuity: LATONYA 3 tl2 Triage Assessment: 00:21 General: Appears in no apparent distress. uncomfortable, Behavior is calm, cooperative, tl2 appropriate for age. Pain: Complains of pain in mid-sternal area Pain does not radiate. Pain currently is 7 out of 10 on a pain scale. at worst was 9 out of 10 on a pain scale. Quality of pain is described as sharp. Neuro: Level of Consciousness is awake, alert, obeys commands, Oriented to person, place, time, situation. Cardiovascular: Chest pain is described as diffuse, quality is sharp. Respiratory: Airway is patent Respiratory effort is even, unlabored, Respiratory pattern is regular, symmetrical. GI: No signs and/or symptoms were reported involving the gastrointestinal system. : No signs and/or symptoms were reported regarding the genitourinary system. Derm: Skin is pink, warm \T\ dry. Historical: - Allergies: 00:21 Codeine; tl2 00:21 PENICILLINS; tl2 - Home Meds: 00:21 aspirin 325 mg Oral tab 1 tab once daily [Active]; benztropine 1 mg Oral tab 1 tab once tl2 daily [Active]; Cymbalta 30 mg Oral cpDR 1 cap once daily [Active]; divalproex 250 mg Oral TbEC 1 tab 2 times per day [Active]; Fanapt 8 mg Oral tab 1 tab 2 times per day [Active]; gabapentin 300 mg Oral cap twice a day [Active]; Lantus 100 unit/mL Sub-Q soln 32 unit nightly [Active]; Lipitor 40 mg Oral tab 1 tab once daily [Active]; proair every 6 hours as needed for wheezing [Active]; Risperdal 1 mg Oral tab 1 tab once daily [Active]; spiriva 18mcg daily [Active]; tramadol 50 mg Oral tab 1 tab at bedtime [Active]; Trileptal 150 mg Oral tab 1 tabs daily [Active]; Triumeq 600-50-300 mg Oral tab 1 tab once daily [Active]; Vitamin D Oral 2000 unit daily [Active]; - PMHx: 00:21 Anxiety; Bipolar disorder; CAD; Chronic pain; COPD; Depression; Diabetes - IDDM; tl2 Difficulty walking; GERD; HIV; Hyperlipidemia; LACK OF COORDINATION; neuropathy; pulmonary edema; Schizophrenia; - Immunization history:: Adult Immunizations up to date. - Social history:: Smoking status: Patient/guardian denies using tobacco. - Ebola Screening: : No symptoms or risks identified at this time. Screenin:27 Abuse screen: Denies threats or abuse. Nutritional screening: No deficits noted. tl2 Tuberculosis screening: No symptoms or risk factors identified. Fall Risk Fall in past 12 months (25 points). Secondary diagnosis (15 points). Assessment: 00:21 General: see triage assessment. tl2 01:39 Reassessment: Patient appears in no apparent distress at this time. No changes from tl2 previously documented assessment. Patient and/or family updated on plan of care and expected duration. Pain level reassessed. Patient is alert, oriented x 3, equal unlabored respirations, skin warm/dry/pink. 03:50 Reassessment: Called [facility] to arrange transport. tl2 03:56 Reassessment: Yesi ETA 20 minutes. 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 tl2 Vital Signs: 00:21 BP 124 / 75; Pulse 82; Resp 20; Temp 98(O); Pulse Ox 93% on R/A; Weight 86.18 kg; tl2 Height 5 ft. 6 in. (167.64 cm); Pain 7/10; 01:38 BP 104 / 69; Pulse 79; Resp 14; Pulse Ox 94% on 2 lpm NC; tl2 02:24 BP 103 / 65; Pulse 77; Resp 17; Pulse Ox 93% on 2 lpm NC; tl2 03:19 BP 99 / 66; Pulse 78; Resp 19; Pulse Ox 92% on 2 lpm NC; tl2 04:20 BP 104 / 66; Pulse 76; Resp 13; Pulse Ox 93% on 2 lpm NC; tl2 00:21 Body Mass Index 30.67 (86.18 kg, 167.64 cm) tl2 ED Course: 00:15 Patient arrived in ED. tl2 00:17 Yusef Fernandez MD is Attending Physician. gs 00:17 Triage completed. tl2 00:21 Arm band placed on right wrist. tl2 00:27 Patient has correct armband on for positive identification. Bed in low position. tl2 awake overnight monitor on. Pulse ox on. NIBP on. 00:29 Oxygen administration via nasal cannula \T\ 2L/min. tl2 00:30 Maintain EMS IV. Dressing intact. Good blood return noted. Site clean \T\ dry. Gauge \T\ tl 2 site: 22 g L AC. 00:47 X-ray completed. Portable x-ray completed in exam room. Patient tolerated procedure kw well. 00:49 XRAY Chest (1 view) In Process Unspecified. EDMS 04:30 No provider procedures requiring assistance completed. IV discontinued, intact, tl2 bleeding controlled, No redness/swelling at site. Pressure dressing applied. Administered Medications: No medications were administered Outcome: 03:41 Discharge ordered by . gs 04:32 Discharged to long-term. Transfer form completed. tl2 04:32 Condition: stable 04:32 Discharge instructions given to patient, Instructed on discharge instructions, follow up and referral plans. 04:36 Patient left the ED. tl2 Signatures: Dispatcher [employer] EDMS Domenica Kothari Taylor, RN RN tl2 Yusef Fernandez MD MD
[2018-10-24 06:12] VITALS: TEMP 98
[2018-10-24 06:18] VITALS: BP 104/66; O2SAT 93
--- NOTE | 2018-10-24 08:44 | RAD REPORT ---
EXAM DESCRIPTION: Sachin Single View10/24/2018 12:50 am CLINICAL HISTORY: Chest pain COMPARISON: August 2018 FINDINGS: The lungs appear clear of acute infiltrate. The heart is normal size IMPRESSION: No acute abnormalities displayed
--- NOTE | 2018-10-24 12:10 | EKG ---
Test Date: 2018-10-24 Test Time: 00:19:16 Assistant Family Teacher: TL MEASUREMENT RESULTS: Intervals: Rate: 82 NJ: 200 QRSD: 80 QT: 382 QTc: 446 [place]: P: 65 NJ: 200 QRS: -44 T: 9 INTERPRETIVE STATEMENTS: Normal sinus rhythm Left axis deviation Low voltage QRS Inferior infarct, age undetermined Cannot rule out Anterior infarct, age undetermined Abnormal ECG Compared to ECG 09/07/2018 09:31:31 Myocardial infarct finding now present Electronically Signed On 10-24-18 12:09:06 ADOBE ARCHITECT by Garcia Knapp
== END 2018-10-24 04:36 | disposition home or self-care (01) ==
LOC: ER 00:06
DX: R07.9 Chest pain, unspecified (principal); E78.5 Hyperlipidemia, unspecified; E11.9 Type 2 diabetes mellitus without complications; F32.9 Major depressive disorder, single episode, unspecified; F41.9 Anxiety disorder, unspecified; J44.9 Chronic obstructive pulmonary disease, unspecified; F31.9 Bipolar disorder, unspecified; Z21 Asymptomatic human immunodeficiency virus [HIV] infection status; Z79.4 Long term (current) use of insulin; Z79.82 Long term (current) use of aspirin; Z88.0 Allergy status to penicillin; Z88.5 Allergy status to narcotic agent
CPT/HCPCS: 36415; 71045; 80048; 83880; 84484; 85025; 85610; 93005; 99285

== ENCOUNTER 2018-12-26 08:41 | Observation (INO) | payer OTHER ==
--- OUTSIDE RECORDS SUMMARY | 2018-12-26 08:43 | XMS REPORT ---
:1960 [facility] Address [address] [place] [address] Care Team Providers Name Role Phone Unavailable Unavailable Unavailable Problems This patient has no known problems. Allergies, Adverse Reactions, Alerts Allergy Name Allergy Status Severity Reaction(s) Onset Inactive Treating Comments Type Date Date Clinician codeine DA Active 2017-03 00:00:0 0 penicillin V DA Active 2017-03 00:00:0 0 Medications This patient has no known medications. Results Test Description Test Time Test Comments Text Results Atomic Results Result Comments BASIC METABOLIC PANEL 2018-12-26 02:25:00 Test Item Value Reference Range Comments SODIUM (test code=NA) 145 mEq/L 134-147 POTASSIUM (test code=K) 4.1 mEq/L 3.4-5.0 CHLORIDE (test code=CL) 106 mEq/L 100-108 CARBON DIOXIDE (test code=CO2) 34 mEq/L 21-33 ANION GAP (test code=GAP) 9 0-20 GLUCOSE (test code=GLU) 84 mg/dL 70-110 BLOOD UREA NITROGEN (test code=BUN) 19 mg/dL 7-18 GLOMERULAR FILTRATION RATE (test 85.9 90-95 Units of measure=ml/min/1.73 code=GFR) m2 CREATININE (test code=CREAT) 0.7 mg/dL 0.6-1.3 CALCIUM (test code=CA) 8.4 mg/dL 8.0-10.5 [facility] PHONE# sip [phone] or [phone] PHONE , FAX# [phone]) [phone] W/AUTO [id number] 02:13:00 Test Item Value Reference Range Comments WHITE BLOOD CELL (test code=WBC) 6.93 x10 3/uL 4.5-11.0 RED BLOOD CELL (test code=RBC) 3.80 x10 6/uL 3.54-5.02 HEMOGLOBIN (test code=HGB) 13.1 g/dL 11.0-15.0 HEMATOCRIT (test code=HCT) 40.9 % 33.0-45.0 MEAN CELL VOLUME (test code=MCV) 107.6 fL 81.0-99.0 MEAN CELL HGB (test code=MCH) 34.5 pg 27.0-33.0 MEAN CELL HGB CONCETRATION (test code=MCHC) 32.0 g/dL 33.0-37.0 RED CELL DISTRIBUTION WIDTH CV (test code=RDW) 12.2 % 11.5-14.5 RED CELL DISTRIBUTION WIDTH SD (test 49.3 fL 37.0-54.0 code=RDW-SD) PLATELET COUNT (test code=PLT) 180 x10 3/uL 150-400 MEAN PLATELET VOLUME (test code=MPV) 10.5 fL 7.0-9.0 NEUTROPHIL % (test code=NT%) 58.1 % 56.0-77.0 IMMATURE GRANULOCYTE % (test code=IG%) 0.3 % 0.0-2.0 LYMPHOCYTE % (test code=LY%) 30.7 % 14.0-32.0 MONOCYTE % (test code=MO%) 9.1 % 4.8-9.0 EOSINOPHIL % (test code=EO%) 1.4 % 0.3-3.7 BASOPHIL % (test code=BA%) 0.4 % 0.0-2.0 NUCLEATED RBC % (test code=NRBC%) 0.0 % 0-0 NEUTROPHIL # (test code=NT#) 4.02 x10 3/uL 2.0-7.6 IMMATURE GRANULOCYTE # (test code=IG#) 0.02 x10 3/uL 0.00-0.03 LYMPHOCYTE # (test code=LY#) 2.13 x10 3/uL 1.0-3.8 MONOCYTE # (test code=MO#) 0.63 x10 3/uL 0.1-0.8 EOSINOPHIL # (test code=EO#) 0.10 x10 3/uL 0.0-0.2 BASOPHIL # (test code=BA#) 0.03 x10 3/uL 0.0-0.2 NUCLEATED RBC # (test code=NRBC#) 0.00 x10 3/uL 0.0-0.1 MANUAL DIFF REQUIRED (test code=MDIFF) NO [facility] PHONE# for [phone] or [phone] PHONE , FAX#
--- OUTSIDE RECORDS SUMMARY | 2018-12-26 08:44 | XMS REPORT ---
:[address] [facility] Address [address] [place] [phone] Phone Allergies, Adverse Reactions, Alerts Allergy Name [...] Inactive Husam Screening for hyperlipidemi 06/17 06/17 Estrellaecekellie lipoid disorders a Medication List Medication Instructions Start Stop Generic NDC Status Provider Patient Date Date Name Instruction NICOTINE NICOTINE 85178809151 Active Malu Active [place]st MG/24HR TRANSDERMAL KIT NAPROXEN 500 1 by NAPROXEN 10502001956 Active Polina Active MG ORAL mouth Ángel TABLET twice a day as needed for pain BENZTROPINE BENZTROPINE 63118472954 Active Remy Active MESYLATE MESYLATE TABS Perdomo MD TABLET DULOXETINE DULOXETINE 15739019155 Active Remy Active HCL CAPSULE HCL CPEP Perdomo DELAYED RELEASE PARTICLES LIPITOR ATORVASTATIN 19999646910 Active Remy Active TABLET CALCIUM TABS Perdomo MD OMEPRAZOLE OMEPRAZOLE 16643833366 Active Remy Active CPDR CPDR Perdomo SEROQUEL QUETIAPINE 11687646467 Active Remy Active TABLET FUMARATE TABS Perdomo VENLAFAXINE VENLAFAXINE 35949717754 Active Remy Active HCL TABLET HCL TABS Perdomo PROAIR HFA 2 puffs ALBUTEROL 86817718365 Active Husam Active 108 (90 Base) every 4 - SULFATE Zharaa BERRY MCG/ACT 6 hours INHALATION as needed AEROSOL SOLUTION SPIRIVA Inhale 1 TIOTROPIUM 40782934898 Active Husam Active HANDIHALER 18 cap Every BROMIDE Zahraa BERRY MCG Day MONOHYDRATE INHALATION CAPSULE TRIUMEQ One ABACAVIR-DOLU 25125738805 Active Husam Active 600-50-300 MG tablet TEGRAVIR-LAMI Zahraa BERRY ORAL TABLET daily VUD with or without food MECLIZINE 1 by mouth 3 MECLIZINE 370585 MECLIZINE Inactive HCL 25 MG times a day HCL 25 MG HCL ORAL TABLET as needed ORAL TABLET for dizziness MECLIZINE 1 by mouth MECLIZINE 22257845896 No Husam Active HCL 25 MG 3 [...] PEDIATRIC PNEUMOCOCCAL given elsewhere pneumococcal conjugate VACCINE ([id number]) #1 vaccine, 13 valent influenza immunization given [...] temperature weight E&M 177 [lb_av] Weight Measured Diagnostic Results Date Name [...] Chemistry urea nitrogen, blood 9 mg/dL 6-24 Preload: Historical Preload - Hematology Quantiferon Gold TB blood test for tuberculosis screening negative Office Visit: Adult Followup TREATMENT ROOM 2 [...] Wetzel ... - Chemistry absolute CD8 [phone] 8563/10/30 Absolute Neutrophils 4.3 X10E3/UL 10*3/uL 1.4-7.0 LDL [...] Wetzel ... - Chemistry albumin/globulin ratio, serum 1.7 1.2-2.2 creatinine, serum 0.77 mg/dL 0.57-1.00 cholesterol, serum 139 mg/dL [phone]/10/30 bilirubin, serum, total 0.3 mg/dL 0.0-1.2 Lab [...] - Chemistry potassium, serum 4.4 mmol/L 3.5-5.2 albumin, serum 4.2 g/dL 3.5-5.5 immature granulocytes, percentage of total cells, 0 % Not Estab. blood Office Visit: Adult Followup/H & P/RM # [...] MD, patient Magdalena Segura MD, Rach Avina BIOMASS PRODUCTION MANAGER, Samuel Jeffery BIOMASS PRODUCTION MANAGER, Myke Coleman NP-C, Lexy Ward MA, Christiano [...] Vst, Est Level IV Husam Vital MD CPT-69677 [facility] 08:19:52 CDT Ofc Vst, Est Level IV Husam Vital MD [id number] [facility] 08:52:18 CDT Ofc Vst, Est Level IV Husam Vital MD [id number] [facility] 09:44:49 METAL TILE SETTER Ofc Vst, Est Level IV Husam Vital MD [id number] [facility] 09:00:51 CDT Ofc Vst, Est Level IV Husam Vital MD [id number] [facility] 08:21:03 CDT Ofc Vst, Est Level IV Husam Vital MD [id number] [facility] 11:00:32 CDT Ofc Vst, Est Level IV Husam Vital MD [id number] [facility] 09:03:16 METAL TILE SETTER Ofc Vst, Est Level IV Husam Vital MD [id number] [facility] 08:55:36 CDT Ofc Vst, Est Level III Husam Vital MD CPT-33314 [facility] 15:31:26 CDT Est Patient Detailed - Remy Perdomo MD CPT-51679 [facility] 09:51:50 CDT 70316 Ofc Vst, Est Level III Husam Vital MD [id number] [facility] 10:35:49 CDT Ofc Vst, New Level IV Husam Vital MD CPT-23066 [facility] 11:09:09 CDT Procedures Code Procedure Name Date Entry Date Standard Description CPT-00201 Hepatitis B - Adult 10:55:33 CDT CPT-01143 Hepatitis B - Adult 08:58:24 METAL TILE SETTER CPT-45445 Hepatitis B - Adult 08:51:40 CDT CPT-83429 Pneumovax Vaccine PPSV23 08:51:40 CDT CPT-75485 Handling of specimen for transfer 09:52:50 CDT CPT-09967 Venipuncture 09:52:50 CDT
[2018-12-26 09:02] LABS: Absolute Lymphocytes (CBC) 1.4 K/uL (0.7-4.9); Absolute Monocytes 0.5 K/uL (0.1-1.3); Absolute Neutrophil 4.5 K/uL (1.8-8.0); Basophils % 0.4 % (0-1.3); Eosinophils % 0.8 % (0-4.4); Hematocrit 39.8 % (36.0-45.0); Lymphocytes % 21.5 % (15.3-44.8); MPV 8.7 fL (7.6-11.3); Monocytes % 8.3 % (3.3-12.3); RBC Red Blood Cell Count 3.85 M/uL (3.86-4.86)
--- NOTE | 2018-12-26 09:09 | RAD REPORT ---
EXAM DESCRIPTION: CT - Head Brain Wo Cont - 12/26/2018 9:03 am CLINICAL HISTORY: MENTAL STATUS CHANGE Headache, drowsiness. COMPARISON: Head Brain Wo Cont dated 04/15/2017; HEAD BRAIN W O CONTRAST dated 08/26/2015 TECHNIQUE: All CT scans are performed using dose optimization technique as appropriate and may inclu de automated exposure control or mA/KV adjustment according to patient size. FINDINGS: No intracranial hemorrhage, hydrocephalus or extra-axial fluid collection.Mild generalized brain atrophy is present with mild periventricular and deep white matter chronic microvascular ische jelly changes.No areas of brain edema or evidence of midline shift. The paranasal sinuses and mastoids are clear. The calvarium is intact. IMPRESSION: No acute intracranial abnormality.
[2018-12-26] MEDS ORDERED: NA CHLORIDE 0.9% 2,000 ML ONE (09:10)
[2018-12-26] MEDS ORDERED: VANCOMYCIN 1 GM/250 ML BAG ONE (09:10)
[2018-12-26] MEDS ORDERED: CEFEPIME 1 GM/100 ML BAG IV ONE (09:10)
[2018-12-26 09:11] LABS: Protime INR 1.01
--- NOTE | 2018-12-26 09:34 | RAD REPORT ---
EXAM DESCRIPTION: RAD - Chest Single View - 12/26/2018 9:26 am CLINICAL HISTORY: CONGESTION Chest pain. COMPARISON: Chest Single View dated 10/24/2018; Chest Single View dated 09/06/2018; Chest Single Vie w dated 08/31/2018; Chest Single View dated 08/29/2018 FINDINGS: Portable technique limits examination quality. Ill-defined opacities are present in both medial lung bases probably representing atelectasis or infi ltrate. The heart is normal in size. No displaced fractures.
[2018-12-26 09:37] LABS: ALT/SGPT 10 U/L (12-78); AST/SGOT 7 U/L (15-37); Albumin 2.8 g/dL (3.4-5.0); Alkaline Phosphatase 90 U/L (45-117); BUN Blood Urea Nitrogen 18 mg/dL (7-18); Bicarbonate 32 mmol/L (21-32); Bilirubin Direct 0.1 mg/dL (0-0.2); Bilirubin Total 0.3 mg/dL (0.2-1.0); CKMB Creatine Kinase MB < 1.0 ng/mL (0.3-3.6); Creatine Phosphokinase 44 U/L (26-192); Glucose Level 90 mg/dL (74-106); Lipase 68 U/L (73-393); Potassium 4.1 mmol/L (3.5-5.1); Protein, Total 6.7 g/dL (6.4-8.2); Sodium Level 145 mmol/L (136-145); Troponin (Emerg Dept Use Only) < 0.02 ng/mL (0.0-0.045)
--- NOTE | 2018-12-26 10:13 | EDPHYS ---
Physician Documentation [facility] Name: Lucia Arias Age: 57 yrs Sex: Female : 1960 Arrival Date: 12/26/2018 Time: 08:43 Bed 3 Private MD: ED Physician Nida Barry HPI: 12/26 09:07 This 57 yrs old Female presents to ER via EMS with complaints of Altered ma2 Mental Status. 09:07 The patient presents with confusion, decreased mental status. Onset: The ma2 symptoms/episode began/occurred gradually, 1 day(s) ago. Associated signs and symptoms: Pertinent positives: cough, Pertinent negatives: abdominal pain, agitation, ataxia, blurred vision, combativeness, confusion, diaphoresis, dizziness, numbness, palpitations, seizure, vertigo. Current symptoms: In the emergency department the patient's symptoms have improved. Unable to obtain HPI due to altered mental status. The patient has experienced similar episodes in the past. Historical: - Allergies: 08:52 Codeine; tw2 08:52 PENICILLINS; tw2 08:52 Demerol; tw2 - Home Meds: 09:37 aspirin 325 mg Oral tab 1 tab once daily [Active]; benztropine 1 mg Oral tab 1 tab once tw2 daily [Active]; Cymbalta 30 mg Oral cpDR 1 cap once daily [Active]; divalproex 250 mg Oral TbEC 1 tab 2 times per day [Active]; Fanapt 8 mg Oral tab 1 tab 2 times per day [Active]; gabapentin 300 mg Oral cap twice a day [Active]; Lipitor 40 mg Oral tab 1 tab once daily [Active]; Lantus 100 unit/mL Sub-Q soln 32 unit nightly [Active]; Risperdal 1 mg Oral tab 1 tab once daily [Active]; proair every 6 hours as needed for wheezing [Active]; Trileptal 150 mg Oral tab 1 tabs daily [Active]; spiriva 18mcg daily [Active]; Triumeq 600-50-300 mg Oral tab 1 tab once daily [Active]; Vitamin D Oral 2000 unit daily [Active]; tramadol 50 mg Oral tab 1 tab at bedtime [Active]; - PMHx: 08:52 Schizophrenia; HIV; Depression; Difficulty walking; Diabetes - IDDM; Anxiety; LACK OF tw2 COORDINATION; COPD; Bipolar disorder; Chronic pain; Hyperlipidemia; GERD; CAD; neuropathy; pulmonary edema; - Immunization history:: Adult Immunizations. - Social history:: Smoking status: Patient/guardian denies using alcohol, street drugs, The patient lives with family. - Ebola Screening: : Patient denies travel to an Ebola-affected area in the 21 days before illness onset. - Family history:: not pertinent. - Hospitalizations: : No recent hospitalization is reported. ROS: 09:07 Neuro: Positive for altered mental status, Negative for dizziness, headache, hearing ma2 loss, numbness, speech changes, syncope. 09:07 All other systems are negative. 10:13 Constitutional: Negative for fever, chills, and weight loss. ma2 Exam: 09:07 Constitutional: This is a well developed, well nourished patient who is awake, alert, ma2 and in no acute distress. Chest/axilla: Normal chest wall appearance and motion. Nontender with no deformity. No lesions are appreciated. Cardiovascular: Regular rate and rhythm with a normal S1 and S2. No gallops, murmurs, or rubs. Normal PMI, no JVD. No pulse deficits. Respiratory: Lungs have equal breath sounds bilaterally, clear to auscultation and percussion. No rales, rhonchi or wheezes noted. No increased work of breathing, no retractions or nasal flaring. Abdomen/GI: Soft, non-tender, with normal bowel sounds. No distension or tympany. No guarding or rebound. No evidence of tenderness throughout. 09:07 Neuro: Orientation: to person, place, Not oriented to time, Mentation: responsive to voice Cranial nerves: grossly normal, Motor: is normal, Sensation: is normal. Vital Signs: 08:50 BP 104 / 90; Pulse 96; Resp 16; Pulse Ox 95% on R/A; tw2 08:53 BP 97 / 60; Pulse 95; Resp 16; Pulse Ox 88% on R/A; Weight 88.45 kg (R); tw2 09:30 BP 89 / 67; Pulse 81; Resp 16; Temp 97.6(O); Pulse Ox 95% on 2 lpm NC; tw2 09:39 BP 105 / 58; Pulse 96; Resp 16; Pulse Ox 95% on NC; tw2 10:36 BP 110 / 84; Pulse 74; Resp 17; Pulse Ox 94% on 2 lpm NC; tw2 11:39 BP 117 / 76; Pulse 97; Resp 16; Pulse Ox 95% on 2 lpm NC; tw2 11:54 BP 117 / 73; Pulse 94; Resp 13; Pulse Ox 98% on 3 lpm NC; aj 13:14 BP 126 / 84; Pulse 94; Resp 20; Pulse Ox 99% 3 lpm ; aj 08:53 pt placed on NRB at 15L o2 for transport to CT,will continue to monitor, provider tw2 notified. 09:30 pt was returned sitting up and was responsive to name when returned from ct, bp reading tw2 taken, pt was placed in trendelenberg and IV fluids administered, provider notified, provider wanted o2 placed on 2l NC at this time, will continue to monitor MDM: 08:44 Patient medically screened. ma2 09:07 Differential Diagnosis: electrolyte abnormality, hypoglycemia, intracranial bleed, ma2 pneumonia, seizure, sepsis, UTI, volume depletion. 10:11 Data reviewed: vital signs, nurses notes, lab test result(s), radiologic studies. ma2 Counseling: I had a detailed discussion with the patient and/or guardian regarding: the historical points, exam findings, and any diagnostic results supporting the discharge/admit diagnosis, the presence of at least one elevated blood pressure reading (>120/80) during this emergency department visit, the need for further work-up and treatment in the hospital. Response to treatment: the patient's symptoms have markedly improved after treatment. 12/26 08:45 Order name: Urine Culture 12/26 08:45 Order name: Basic Metabolic Panel; Complete Time: 09:52 12/26 08:45 Order name: Blood Culture Adult (2) 12/26 08:45 Order name: CBC with Diff; Complete Time: 09:22 12/26 08:45 Order name: Ckmb; Complete Time: 09:52 12/26 08:45 Order name: CPK; Complete Time: 09:52 12/26 08:45 Order name: Lactate; Complete Time: 09:52 12/26 08:45 Order name: LFT's; Complete Time: 09:52 12/26 08:45 Order name: Lipase; Complete Time: 09:52 12/26 08:45 Order name: Procalcitonin; Complete Time: 09:52 12/26 08:45 Order name: Protime (+inr); Complete Time: 09:22 12/26 08:45 Order name: Ptt, Activated; Complete Time: 09:22 12/26 08:45 Order name: Troponin (emerg Dept Use Only); Complete Time: 09:52 12/26 08:45 Order name: Urine Microscopic Only 12/26 08:45 Order name: Chest Single View XRAY; Complete Time: 09:52 12/26 08:45 Order name: Cardiac monitoring; Complete Time: 08:56 12/26 08:45 Order name: EKG - Nurse/Tech; Complete Time: 08:56 12/26 08:45 Order name: IV Saline Lock - Large Bore; Complete Time: 08:57 12/26 08:45 Order name: Labs collected and sent; Complete Time: 08:57 12/26 08:45 Order name: O2 Per Protocol; Complete Time: 08:57 12/26 08:45 Order name: O2 Sat Monitoring; Complete Time: 08:57 12/26 08:46 Order name: CT Head Brain wo Cont; Complete Time: 09:22 12/26 09:23 Order name: EKG Electrocardiogram EDMS Administered Medications: 09:20 Drug: NS 0.9% (30 ml/kg) 30 ml/kg Route: IV; Rate: bolus; Site: right antecubital; tw2 11:55 Follow up: Response: No adverse reaction; IV Status: Completed infusion; IV Intake: tw2 2000ml 09:25 Drug: Cefepime 1 grams Route: IVPB; Rate: 200 ml/hr; Infused Over: 30 mins; Site: left tw2 forearm; 09:58 Follow up: Response: No adverse reaction; IV Status: Completed infusion tw2 10:00 Drug: vancoMYCIN 1 grams Route: IVPB; Infused Over: 2 hrs; Site: right antecubital; tw2 11:55 Follow up: Response: No adverse reaction; IV Status: Completed infusion tw2 Disposition: 12/26/18 10:13 Hospitalization ordered by Margaret Segura for Inpatient Admission. Preliminary diagnosis are Pneumonia due to other specified infectious organisms, Sepsis due to other specified staphylococcus. - Bed requested for Telemetry/MedSurg (Inpatient). - Status is Inpatient Admission. aj - Condition is Stable. - Problem is new. - Symptoms are unchanged. UTI on Admission? No Signatures: Dispatcher [employer] EDMS Lucia Mackey Zonia Frank, RN RN aj Candie Laughlin RN RN 2 Nida Barry MD MD [facility] Corrections: (The following items were deleted from the chart) 08:56 08:45 Accucheck ordered. ky2 tw2 10:46 10:13 Hospitalization Ordered by Monique Mason MD for Inpatient Admission. Preliminary [facility] diagnosis is Pneumonia due to other specified infectious organisms; Sepsis due to other specified staphylococcus. Bed requested for Telemetry/MedSurg (Inpatient). Status is Inpatient Admission. Condition is Stable. Problem is new. Symptoms are unchanged. UTI on Admission? No. ma2 12:28 10:46 12/26/2018 10:13 Hospitalization Ordered by Margaret Segura MD for Inpatient bd Admission. Preliminary diagnosis is Pneumonia due to other specified infectious organisms; Sepsis due to other specified staphylococcus. Bed requested for Telemetry/MedSurg (Inpatient). Status is Inpatient Admission. Condition is Stable. Problem is new. Symptoms are unchanged. UTI on Admission? No. ma2 13:16 12:28 12/26/2018 10:13 Hospitalization Ordered by Margaret Segura MD for Inpatient aj Admission. Preliminary diagnosis is Pneumonia due to other specified infectious organisms; Sepsis due to other specified staphylococcus. Bed requested for Telemetry/MedSurg (Inpatient). Status is Inpatient Admission. Condition is Stable. Problem is new. Symptoms are unchanged. UTI on Admission? No. bd
--- NOTE | 2018-12-26 10:13 | ER ---
Nurse's Notes [facility] Name: Lucia Arias Age: 57 yrs Sex: Female : 1960 Arrival Date: 12/26/2018 Time: 08:43 Bed 3 Private MD: Diagnosis: Pneumonia due to other specified infectious organisms;Sepsis due to other specified staphylococcus Presentation: 12/26 08:36 Method Of Arrival: EMS: [facility] tw2 08:36 Presenting complaint: EMS states: pt from [facility], HIV+, nursing staff stated she was tw2 lethargic yesterday and today it is more pronounce, they did recently increase her Ultram, they didn't tell me the dose, HX: COPD,Schizophrenia, hyperlipidemia,UTI, initial BP was 80/60, we started line and gave 500 NS and placed pt in Trendelenburg and her pressure was 107/72 on arrival here, we placed on her non rebreather at 15 L as she was 90% on room air diminished. Transition of care: patient was received from another setting of care (long-term care facility), [facility]. Onset of symptoms was December 26, 2018. Risk Assessment: Do you want to hurt yourself or someone else? Patient reports no desire to harm self or others. Initial Sepsis Screen: Does the patient meet any 2 criteria? Altered Mental Status. HR > 90 bpm. Yes Does the patient have a suspected source of infection? If YES to both, name of provider notified: Nida Barry MD. Care prior to arrival: Medication(s) given: Normal saline infusion, 500 mL, IV initiated. 20 GA, in the right antecubital area, Glucose check: 111 Oxygen administered. via a non-rebreather mask. 08:36 Acuity: LATONYA 2 tw2 08:36 Note [facility] reported to us that the pt fell last week and was seen here, cleared of any tw2 fractures or broken ribs. Historical: - Allergies: 08:52 Codeine; tw2 08:52 PENICILLINS; tw2 08:52 Demerol; tw2 - Home Meds: 09:37 aspirin 325 mg Oral tab 1 tab once daily [Active]; benztropine 1 mg Oral tab 1 tab once tw2 daily [Active]; Cymbalta 30 mg Oral cpDR 1 cap once daily [Active]; divalproex 250 mg Oral TbEC 1 tab 2 times per day [Active]; Fanapt 8 mg Oral tab 1 tab 2 times per day [Active]; gabapentin 300 mg Oral cap twice a day [Active]; Lipitor 40 mg Oral tab 1 tab once daily [Active]; Lantus 100 unit/mL Sub-Q soln 32 unit nightly [Active]; Risperdal 1 mg Oral tab 1 tab once daily [Active]; proair every 6 hours as needed for wheezing [Active]; Trileptal 150 mg Oral tab 1 tabs daily [Active]; spiriva 18mcg daily [Active]; Triumeq 600-50-300 mg Oral tab 1 tab once daily [Active]; Vitamin D Oral 2000 unit daily [Active]; tramadol 50 mg Oral tab 1 tab at bedtime [Active]; - PMHx: 08:52 Schizophrenia; HIV; Depression; Difficulty walking; Diabetes - IDDM; Anxiety; LACK OF tw2 COORDINATION; COPD; Bipolar disorder; Chronic pain; Hyperlipidemia; GERD; CAD; neuropathy; pulmonary edema; - Immunization history:: Adult Immunizations. - Social history:: Smoking status: Patient/guardian denies using alcohol, street drugs, The patient lives with family. - Ebola Screening: : Patient denies travel to an Ebola-affected area in the 21 days before illness onset. - Family history:: not pertinent. - Hospitalizations: : No recent hospitalization is reported. Screenin:35 Abuse screen: Denies threats or abuse. Nutritional screening: No deficits noted. tw2 Tuberculosis screening: No symptoms or risk factors identified. Fall Risk Secondary diagnosis (15 points) impaired mobility. Assessment: 09:32 General: Appears in no apparent distress. obese, Behavior is calm. Pain: Unable to use tw2 pain scale. Patient appears pt is quiet. Neuro: Level of Consciousness is obeys commands, stuporous. Cardiovascular: Heart tones S1 S2 Patient's skin is warm and dry. Respiratory: Airway is patent Respiratory effort is even, unlabored, Respiratory pattern is hypoventilation Breath sounds are diminished bilaterally. GI: No signs and/or symptoms were reported involving the gastrointestinal system. Abdomen is round non-distended, obese, Bowel sounds present X 4 quads. : No signs and/or symptoms were reported regarding the genitourinary system. EENT: No signs and/or symptoms were reported regarding the EENT system. Derm: No signs and/or symptoms reported regarding the dermatologic system. Musculoskeletal: Circulation, motion, and sensation intact. 09:44 Reassessment: Patient appears in no apparent distress at this time. Patient and/or tw2 family updated on plan of care and expected duration. Pain level reassessed. pt responds to name being called. 10:37 Reassessment: Patient appears in no apparent distress at this time. Patient and/or tw2 family updated on plan of care and expected duration. Pain level reassessed. pt is starting to become more alert, pt is fidgeting with the blankets, pt answers questions. 11:40 Reassessment: Patient appears in no apparent distress at this time. Patient and/or tw2 family updated on plan of care and expected duration. Pain level reassessed. 11:54 General: Appears in no apparent distress. comfortable, Behavior is calm, cooperative, aj appropriate for age. Neuro: Level of Consciousness is awake, obeys commands, Oriented to person, Netbackup Engineer are equal bilaterally Speech is normal, Facial symmetry appears normal. Respiratory: Airway is patent Respiratory effort is even, unlabored, Respiratory pattern is regular, symmetrical. GI: No signs and/or symptoms were reported involving the gastrointestinal system. Abdomen is non-distended, obese. : Genitalia appear normal. Derm: Skin is intact, is healthy with good turgor, Skin is pink, warm \T\ dry. normal. 12:40 Reassessment: Patient is not able to go upstairs as there is no bed in the room. Marco walker will call when bed is in room. Vital Signs: 08:50 BP 104 / 90; Pulse 96; Resp 16; Pulse Ox 95% on R/A; tw2 08:53 BP 97 / 60; Pulse 95; Resp 16; Pulse Ox 88% on R/A; Weight 88.45 kg (R); tw2 09:30 BP 89 / 67; Pulse 81; Resp 16; Temp 97.6(O); Pulse Ox 95% on 2 lpm NC; tw2 09:39 BP 105 / 58; Pulse 96; Resp 16; Pulse Ox 95% on NC; tw2 10:36 BP 110 / 84; Pulse 74; Resp 17; Pulse Ox 94% on 2 lpm NC; tw2 11:39 BP 117 / 76; Pulse 97; Resp 16; Pulse Ox 95% on 2 lpm NC; tw2 11:54 BP 117 / 73; Pulse 94; Resp 13; Pulse Ox 98% on 3 lpm NC; aj 13:14 BP 126 / 84; Pulse 94; Resp 20; Pulse Ox 99% 3 lpm ; aj 08:53 pt placed on NRB at 15L o2 for transport to CT,will continue to monitor, provider tw2 notified. 09:30 pt was returned sitting up and was responsive to name when returned from ct, bp reading tw2 taken, pt was placed in trendelenberg and IV fluids administered, provider notified, provider wanted o2 placed on 2l NC at this time, will continue to monitor ED Course: 08:38 Arm band placed on. tw2 08:38 Call light in reach. Side rails up X2. monitor worker on. Pulse ox on. NIBP on. Warm tw2 blanket given. 08:43 Patient arrived in ED. tw2 08:44 Nida Barry MD is Attending Physician. ma2 08:50 Triage completed. tw2 08:55 Candie Laughlin RN is Primary Nurse. tw2 08:[address] via stretcher. sj 09:00 Inserted saline lock: 22 gauge in right forearm, using aseptic technique. ,using tw2 aseptic technique. per Leo Reynolds Blood collected. 09:02 EKG done, by design technician. reviewed by Nida Barry MD. at1 09:03 CT completed. Patient tolerated procedure well. Patient moved back from CT. sj 09:14 CT Head Brain wo Cont In Process Unspecified. EDMS 09:27 Chest Single View XRAY In Process Unspecified. EDMS 10:12 Monique Mason MD is Hospitalizing Provider. ma2 10:46 Hospitalizing Provider role handed off by Monique Mason MD ma2 10:46 Margaret Segura MD is Hospitalizing Provider. ma2 11:54 IV is intact, Changed dressing on left forearm. aj 11:54 No provider procedures requiring assistance completed. aj 11:55 Report given to AUBREE Brar, pending URINE specimen collection at this time for UMro tw2 and UCulture. 11:55 IV discontinued, intact, bleeding controlled, No redness/swelling at site. Pressure tw2 dressing applied, pt has pulled EMS iv out at this time. 12:40 Report given to Marco MAK. denise Administered Medications: 09:20 Drug: NS 0.9% (30 ml/kg) 30 ml/kg Route: IV; Rate: bolus; Site: right antecubital; tw2 11:55 Follow up: Response: No adverse reaction; IV Status: Completed infusion; IV Intake: tw2 2000ml 09:25 Drug: Cefepime 1 grams Route: IVPB; Rate: 200 ml/hr; Infused Over: 30 mins; Site: left tw2 forearm; 09:58 Follow up: Response: No adverse reaction; IV Status: Completed infusion tw2 10:00 Drug: vancoMYCIN 1 grams Route: IVPB; Infused Over: 2 hrs; Site: right antecubital; tw2 11:55 Follow up: Response: No adverse reaction; IV Status: Completed infusion tw2 Intake: 11:55 IV: 2000ml; Total: 2000ml. tw2 Outcome: 10:13 Decision to Hospitalize by Provider. ma2 11:54 Admitted to Med/surg accompanied by tech, via stretcher, room 431, with chart, Report aj called to Marco 11:54 Condition: stable 11:54 Instructed on the need for admit. 13:16 Patient left the ED. denise Signatures: Dispatcher [employer] EDMS Zonia Love RN Gerri Thrasher Amanda, dismantler EKG Tat1 Candie Laughlin RN RN tw2 Nida Barry MD MD ma2 Corrections: (The following items were deleted from the chart) 13:15 11:54 BP 117 / 73; Pulse 94bpm; Resp 13bpm; Pulse Ox 98% RA; denise walker
[2018-12-26] MEDS ORDERED: ONDANSETRON 4 MG/2 ML VIAL IV PRN (13:21)
[2018-12-26 13:49] VITALS: BMI 25.8
[2018-12-26] MEDS: NA CHLORIDE 0.9% 1,000 ML IV SCH ×2 (14:07→23:21)
[2018-12-26 14:23] LABS: Urine Bacteria 20-50 /HPF (<20); Urine Culture Reflex Order NOT NEEDED; Urine Mucus 2+ /HPF (NONE SEEN)
--- NOTE | 2018-12-26 17:08 | EKG ---
Test Date: 2018-12-26 Test Time: 08:46:14 Metal Cnc Operator: DARIEN MEASUREMENT RESULTS: Intervals: Rate: 95 PA: 182 QRSD: 84 QT: 350 QTc: 439 [place]: P: 63 PA: 182 QRS: -52 T: 29 INTERPRETIVE STATEMENTS: Normal sinus rhythm Left axis deviation Inferior infarct, age undetermined Abnormal ECG Compared to ECG 10/24/2018 00:19:16 No significant changes Electronically Signed On 12-26-18 17:06:55 COATING SUPERVISOR by Garcia Knapp
[2018-12-26] MEDS: ACETAMINOPHEN 500 MG TAB PO PRN (21:41)
[2018-12-26 22:36] VITALS: O2SAT 96
[2018-12-27 04:14] LABS: Absolute Lymphocytes (CBC) 1.4 K/uL (0.7-4.9); Absolute Monocytes 0.4 K/uL (0.1-1.3); Absolute Neutrophil 3.8 K/uL (1.8-8.0); Basophils % 0.4 % (0-1.3); Eosinophils % 2.1 % (0-4.4); Lymphocytes % 24.1 % (15.3-44.8); MPV 8.7 fL (7.6-11.3); Monocytes % 7.5 % (3.3-12.3); RBC Red Blood Cell Count 3.67 M/uL (3.86-4.86)
[2018-12-27 04:39] LABS: ALT/SGPT 9 U/L (12-78); AST/SGOT 10 U/L (15-37); Albumin 2.7 g/dL (3.4-5.0); Alkaline Phosphatase 88 U/L (45-117); BUN Blood Urea Nitrogen 9 mg/dL (7-18); Bicarbonate 28 mmol/L (21-32); Bilirubin Total 0.4 mg/dL (0.2-1.0); Glucose Level 84 mg/dL (74-106); Potassium 3.6 mmol/L (3.5-5.1); Protein, Total 6.5 g/dL (6.4-8.2); Sodium Level 145 mmol/L (136-145)
[2018-12-27 05:17] LABS: Magnesium 1.8 mg/dL (1.8-2.4); Phosphorus 2.4 mg/dL (2.5-4.9)
[2018-12-27] MEDS: NA CHLORIDE 0.9% 1,000 ML IV SCH ×3 (06:23→19:21)
[2018-12-27] MEDS ORDERED: POTASSIUM PHOS IN 0.9 % NACL 15 MMOL/250 ML BAG IV ONE (07:35)
[2018-12-27] MEDS ORDERED: CEFTRIAXONE 1 GM/NS 50 ML 1 GM/50 ML BAG IV SCH (09:00)
[2018-12-27] MEDS ORDERED: MAGNESIUM SULFATE 1 gm IVPB 1 GM/100 ML BAG IV ONE (09:00)
[2018-12-27] MEDS ORDERED: CEFTRIAXONE/SWI 1gm 1 GM/10 ML SYR IV SCH (09:00)
--- NOTE | 2018-12-27 09:14 | P.HP ---
Certification for Inpatient Patient admitted to: Observation With expected LOS: <2 Midnights Patient will require the following post-hospital care: None Practitioner: I am a practitioner with admitting privileges, knowledge of patient current condition, hospital course, and medical plan of care. Services: Services provided to patient in accordance with Admission requirements found in Title 42 Section 412.3 of the Code of Federal Regulations Patient History Date of Service: 12/26/18 Reason for admission: altered mental status History of Present Illness: Patient is a 58-year-old female who has been a resident at [facility] for many years. Patient has a history of bipolar disorder and schizophrenia and she has been managed at [facility]. She takes multiple psychiatric medications. She was sent to the emergency room because her mentation was altered relatively speaking. She was very confused so they brought her into the ER for further evaluation. In the emergency room her workup revealed she had a urinary tract infection. Her chest x-ray also revealed bibasilar infiltrates. She was started on vancomycin and cefepime initially. We will continue her on antibiotics at this time. Will further assess her later in the morning. If her mentation is improving she may be able to go home but if it is still not improve then she will need inpatient admission. Allergies codeine Allergy (Intermediate, Verified 08/27/15 00:23) Unknown Penicillins Allergy (Intermediate, Verified 08/27/15 00:23) Unknown Home Medications: Aspirin 325 mg PO DAILY 04/15/17 Atorvastatin Calcium [Lipitor*] 40 mg PO BEDTIME 04/15/17 Gabapentin [Neurontin*] 300 mg PO TID 04/15/17 Benztropine Mesylate [Cogentin*] 1 mg PO BID 05/03/17 Iloperidone [Fanapt] 8 mg PO BID 05/03/17 Abacavir/Dolutegravir/Lamivudi [Triumeq 600-50-300 mg Tablet] 1 each PO DAILY Albuterol Sulfate [Proair Hfa] 2 puff IH Q6HP PRN 08/29/18 Cholecalciferol (Vitamin D3) [Vitamin D3] 2,000 unit PO DAILY 08/29/18 Divalproex [Depakote Sprinkle*] 250 mg PO BID 08/29/18 Duloxetine HCl [Cymbalta] 60 mg PO DAILY 08/29/18 Insulin Glargine Human [Lantus*] 32 unit SQ BEDTIME 08/29/18 Mag Hydroxide 8% [Milk Of Magnesia*] 30 ml PO DAILYPRN PRN 08/29/18 OXcarbazepine [Trileptal*] 150 mg PO BID 08/29/18 Tiotropium [Spiriva Handihaler*] 18 mcg IH DAILY 08/29/18 Tramadol HCl [Ultram] 50 mg PO BEDTIME 08/29/18 risperiDONE [Risperdal 1 mg tab*] 1 mg PO DAILY 08/29/18 - Past Medical/Surgical History Has patient received pneumonia vaccine in the past: Yes Diabetic: No -: Bipolar disorder -: Schizophrenia -: HIV -: COPD -: Depression -: hysterectomy -: appendectomy - Family History Father Medical History: Lung disease, Diabetes Mother Medical History: Lung disease - Social History Smoking Status: Current every day smoker Alcohol use: No CD- Drugs: No Caffeine use: No Review of Systems 10-point ROS is otherwise unremarkable Physical Examination - Vital Signs Temperature: 98.7 F Blood Pressure: 129/59 Pulse: 81 Respirations: 18 Pulse Ox (%): 92 - Physical Exam General: Alert, In no apparent distress, Confused HEENT: Atraumatic, PERRLA, Mucous membr. moist/pink, EOMI, Sclerae nonicteric Neck: Supple, 2+ carotid pulse no bruit, No LAD, Without JVD or thyroid abnormality Respiratory: Diminished, Expiratory wheezes Cardiovascular: Regular rate/rhythm, Normal S1 S2, Systolic murmur Gastrointestinal: Normal bowel sounds, No tenderness Musculoskeletal: No clubbing, No swelling, No tenderness Integumentary: No rashes Neurological: Normal speech, Normal tone, Sensation intact, Cranial nerves 3-12 intact, Normal affect, Abnormal gait, Abnormal strength Lymphatics: No axilla or inguinal lymphadenopathy - Studies Laboratory Data (last 24 hrs) 12/26/18 08:54: PT 11.9, INR 1.01, APTT 29.0 12/26/18 08:54: Sodium 145, Potassium 4.1, BUN 18, Creatinine 0.72, Glucose 90, Total Bilirubin 0.3, AST 7 L, ALT 10 L, Alkaline Phosphatase 90, Lipase 68 L Assessment & Plan - Problems (Diagnosis) (1) Altered mental status Onset Date: 07/09/15 Current Visit: No Status: Acute Qualifiers: (2) Anxiety Onset Date: 08/30/18 Current Visit: No Status: Acute (3) Diabetes mellitus Onset Date: 08/30/18 Current Visit: No Status: Acute (4) Hyperlipidemia Onset Date: 08/30/18 Current Visit: No Status: Acute Qualifiers: (5) Hypertension Onset Date: 05/03/17 Current Visit: No Status: Acute (6) Schizophrenia Onset Date: 08/30/18 Current Visit: No Status: Acute Qualifiers: (7) UTI (urinary tract infection) Onset Date: 07/09/15 Current Visit: No Status: Acute (8) Weakness Onset Date: 05/03/17 Current Visit: No Status: Acute (9) HIV (human immunodeficiency virus infection) Onset Date: 07/09/15 Current Visit: No Status: Chronic - Plan -IV hydration -IV antibiotics -cultures are pending -check renal function and electrolytes -MRI of the brain if not improving -bed check in place -physical therapy evaluation once mentation is improved -discuss code status with family Discharge Plan: Home Plan to discharge in: 24 Hours - Advance Directives Does patient have a Living Will: No Does patient have a Durable POA for Healthcare: No - Code Status/Comfort Care Code Status Assessed: Yes Code Status: Full Code Critical Care: No Time Spent Managing PTS Care (In Minutes): 50
[2018-12-27 14:12] VITALS: BP 113/62; TEMP 97.9
[2018-12-27] MEDS: ACETAMINOPHEN 500 MG TAB PO PRN (14:15)
--- NOTE | 2018-12-27 16:33 | P.SSS ---
Patient History Date of Service: 12/27/18 Reason for admission: altered mental status History of Present Illness: Patient is a 58-year-old female who has been a resident at [facility] for many years. Patient has a history of bipolar disorder and schizophrenia and she has been managed at [facility]. She takes multiple psychiatric medications. She was sent to the emergency room because her mentation was altered relatively speaking. She was very confused so they brought her into the ER for further evaluation. In the emergency room her workup revealed she had a urinary tract infection. Her chest x-ray also revealed bibasilar infiltrates. She was started on vancomycin and cefepime initially. We will continue her on antibiotics at this time. Will further assess her later in the morning. If her mentation is improving she may be able to go home but if it is still not improve then she will need inpatient admission. Allergies codeine Allergy (Intermediate, Verified 08/27/15 00:23) Unknown Penicillins Allergy (Intermediate, Verified 08/27/15 00:23) Unknown Home Medications: Aspirin 325 mg PO DAILY 04/15/17 Atorvastatin Calcium [Lipitor*] 40 mg PO BEDTIME 04/15/17 Gabapentin [Neurontin*] 300 mg PO TID 04/15/17 Benztropine Mesylate [Cogentin*] 1 mg PO BID 05/03/17 Iloperidone [Fanapt] 8 mg PO BID 05/03/17 Abacavir/Dolutegravir/Lamivudi [Triumeq 600-50-300 mg Tablet] 1 each PO DAILY Albuterol Sulfate [Proair Hfa] 2 puff IH Q6HP PRN 08/29/18 Cholecalciferol (Vitamin D3) [Vitamin D3] 2,000 unit PO DAILY 08/29/18 Divalproex [Depakote Sprinkle*] 250 mg PO BID 08/29/18 Duloxetine HCl [Cymbalta] 60 mg PO DAILY 08/29/18 Insulin Glargine Human [Lantus*] 32 unit SQ BEDTIME 08/29/18 Mag Hydroxide 8% [Milk Of Magnesia*] 30 ml PO DAILYPRN PRN 08/29/18 OXcarbazepine [Trileptal*] 150 mg PO BID 08/29/18 Tiotropium [Spiriva Handihaler*] 18 mcg IH DAILY 08/29/18 Tramadol HCl [Ultram] 50 mg PO BEDTIME 08/29/18 risperiDONE [Risperdal 1 mg tab*] 1 mg PO DAILY 08/29/18 - Past Medical/Surgical History Has patient received pneumonia vaccine in the past: Yes Diabetic: No -: Bipolar disorder -: Schizophrenia -: HIV -: COPD -: Depression -: hysterectomy -: appendectomy - Family History Father -: Lung disease, Diabetes Mother -: Lung disease - Social History Smoking Status: Current every day smoker Alcohol use: No CD- Drugs: No Caffeine use: No Review of Systems 10-point ROS is otherwise unremarkable Physical Examination - Vital Signs Temperature: 97.9 F Blood Pressure: 113/62 Pulse: 73 Respirations: 18 Pulse Ox (%): 93 - Physical Exam General: In no apparent distress HEENT: Atraumatic, PERRLA, Mucous membr. moist/pink, EOMI, Sclerae nonicteric Neck: Supple, 2+ carotid pulse no bruit, No LAD, Without JVD or thyroid abnormality Respiratory: Clear to auscultation bilaterally, Normal air movement Cardiovascular: Regular rate/rhythm, Normal S1 S2 Gastrointestinal: Normal bowel sounds, No tenderness Musculoskeletal: No tenderness Integumentary: No rashes Neurological: Normal gait, Abnormal gait, Abnormal strength Lymphatics: No axilla or inguinal lymphadenopathy - Diagnosis (Problem(s)) (1) Altered mental status Onset Date: 07/09/15 Current Visit: No Status: Resolved Qualifiers: Altered mental status type: disorientation Qualified Code(s): R41.0 - Disorientation, unspecified (2) Anxiety Onset Date: 08/30/18 Current Visit: No Status: Chronic (3) Diabetes mellitus Onset Date: 08/30/18 Current Visit: No Status: Chronic Qualifiers: Diabetes mellitus type: type 2 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 use: with intermediate school teacher use Diabetes mellitus complication status: without complication Qualified Code(s): E11.9 - Type 2 diabetes mellitus without complications; 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 Patient does have underlying bipolar and schizophrenia disease and takes multiple psych medications. The covers a concern for sepsis causing her altered mental status with possibility of toxic encephalopathy. Patient had a urinalysis done here along with x-ray. X-ray was concerning for the possibility of pneumonia pro calcitonin however was negative. Urinalysis done was also concerning for UA however urine culture was negative for any acute abnormality. Patient did went back to her baseline after being admitted here in the hospital receiving fluids. At that time patient was then transferred back to her correction for further care. Patient's altered mental status could be secondary to worsening of her underlying disease versus the head follow up with primary care provider in about 1-2 days post discharge. - Disposition Disposition: ROUTINE DISCHARGE Condition: GOOD Diet: Regular Activity: Ad alonzo
== END 2018-12-27 20:00 ==
LOC: ER 08:41 → ERHOLD 12:11 → 4TH 12:46
PROVIDERS: ADMIT Family Medicine; ATTEND Hospitalist
DX: R41.82 Altered mental status, unspecified (principal); F41.9 Anxiety disorder, unspecified; E11.9 Type 2 diabetes mellitus without complications; E78.5 Hyperlipidemia, unspecified; I10 Essential (primary) hypertension; F31.9 Bipolar disorder, unspecified; F20.9 Schizophrenia, unspecified; Z21 Asymptomatic human immunodeficiency virus [HIV] infection status; F17.210 Nicotine dependence, cigarettes, uncomplicated; Z79.82 Long term (current) use of aspirin; Z88.0 Allergy status to penicillin; Z79.4 Long term (current) use of insulin
CPT/HCPCS: 36415; 70450; 71045; 80048; 80053; 80076; 81015; 82550; 82553; 83605; 83690; 83735; 84100; 84145; 84484; 85025; 85610; 85730; 87040; 87086; 87088; 87205; 93005; 99285; G0378; J0692; J0696; J3370; J3475; J7030

== ENCOUNTER 2019-01-16 01:59 | Inpatient (IN) | payer OTHER ==
--- OUTSIDE RECORDS SUMMARY | 2019-01-16 02:01 | XMS REPORT ---
:1960 [facility] Address [address] [place] [address] Care Team Providers Name Role Phone Unavailable [...] 0.6-1.3 CALCIUM (test code=CA) 8.4 mg/dL 8.0-10.5 [facility] PHONE# jkt [phone] or [phone] PHONE [phone], FAX# [phone] W/AUTO [id number] 02:13:00 Test Item Value Reference Range Comments [...] 0.0-0.1 MANUAL DIFF REQUIRED (test code=MDIFF) NO [facility] PHONE# for [phone] or [phone] PHONE [phone], FAX#
--- OUTSIDE RECORDS SUMMARY | 2019-01-16 02:02 | XMS REPORT ---
:1960 Author Organization [facility] Address [address] [place] [phone] Phone Allergies, Adverse Reactions, Alerts Allergy Name [...] Patient Date Date Name Instruction NICOTINE NICOTINE 76058407140 Active Malu Active Hurst MG/24HR TRANSDERMAL KIT NAPROXEN 500 1 by NAPROXEN 95960158058 Active Polina Active MG ORAL mouth Ángel TABLET twice a day as needed for pain BENZTROPINE BENZTROPINE 14718606633 Active Remy Active MESYLATE MESYLATE TABS Perdomo MD TABLET DULOXETINE DULOXETINE 93250831820 Active Remy Active HCL CAPSULE HCL CPEP Perdomo DELAYED RELEASE PARTICLES LIPITOR ATORVASTATIN 87851540166 Active Remy Active TABLET CALCIUM TABS Perdomo MD OMEPRAZOLE OMEPRAZOLE 18978245776 Active Remy Active CPDR CPDR Perdomo SEROQUEL QUETIAPINE 39444756692 Active Remy Active TABLET FUMARATE TABS Perdomo VENLAFAXINE VENLAFAXINE 64796260261 Active Remy Active HCL TABLET HCL TABS Perdomo PROAIR HFA 2 puffs ALBUTEROL 21649346341 Active Husam Active 108 (90 Base) every 4 - SULFATE Zahraa BERRY MCG/ACT 6 hours INHALATION as needed AEROSOL SOLUTION SPIRIVA Inhale 1 TIOTROPIUM 33798598923 Active Husam Active HANDIHALER 18 cap Every BROMIDE Zahraa BERRY MCG Day MONOHYDRATE INHALATION CAPSULE TRIUMEQ One ABACAVIR-DOLU 46057920578 Active Husam Active 600-50-300 MG tablet TEGRAVIR-LAMI Zahraa BERRY ORAL TABLET daily VUD with or without food MECLIZINE 1 by mouth 3 MECLIZINE 690907 MECLIZINE Inactive HCL 25 MG times a day HCL 25 MG HCL ORAL TABLET as needed ORAL TABLET for dizziness MECLIZINE 1 by mouth MECLIZINE 99577222080 No Husam Active HCL 25 MG 3 [...] PEDIATRIC PNEUMOCOCCAL given elsewhere pneumococcal conjugate VACCINE ([id number]) #1 vaccine, 13 valent influenza immunization given [...] Wetzel ... - Chemistry absolute CD8 449 [id number] 1343/10/30 Absolute Neutrophils 4.3 X10E3/UL 10*3/uL 1.4-7.0 LDL [...] 0.77 mg/dL 0.57-1.00 cholesterol, serum 139 mg/dL [phone]/10/30 bilirubin, serum, total 0.3 mg/dL 0.0-1.2 Lab [...] MD, patient Magdalena Segura MD, Rach Avina RESIDENTIAL TREATMENT SPECIALIST, Samuel Jeffery RESIDENTIAL TREATMENT SPECIALIST, Myek Coleman NP-C, Lexy Ward MA, Christiano James [...] Vst, Est Level IV Husam Vital MD CPT-34650 [facility] 08:19:52 CDT Ofc Vst, Est Level IV Husam Vital MD [facility]-[id number] [facility] 08:52:18 CDT Ofc Vst, Est Level IV Husam Vital MD [facility]-[id number] [facility] 09:44: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 Ofc Vst, Est Level IV Husam Vital MD [facility]-[id number] [facility] 09:00:51 CDT Ofc Vst, Est Level IV Husam Vital MD [facility]-[id number] [facility] 08:21:03 CDT Ofc Vst, Est Level IV Husam Vital MD [facility]-[id number] [facility] 11:00:32 CDT Ofc Vst, Est Level IV Husam Vital MD [facility]-[id number] [facility] 09:03:16 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 Ofc Vst, Est Level IV Husam Vital MD [facility]-66740 [facility] 08:55:36 CDT Ofc Vst, Est Level III Husam Vital MD CPT-77632 [facility] 15:31:26 CDT Est Patient Detailed - Remy Perdomo MD CPT-07250 [facility] 09:51:50 CDT 13561 Ofc Vst, Est Level III Husam Vital MD [facility]-54121 [facility] 10:35:49 CDT Ofc Vst, New Level IV Husam Vital MD CPT-54988 [facility] 11:09:09 CDT Procedures Code Procedure Name Date Entry Date Standard Description CPT-72810 Hepatitis B - Adult 10:55:33 CDT CPT-00284 Hepatitis B - Adult 08:58:24 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
[2019-01-16 02:34] LABS: Arterial Blood Carboxyhemoglob 1.2 % (0-1.5); Blood Gas Oxyhemoglobin 86.1 % (94-97); Blood O2 Saturation 87.8 % (92-98.5)
[2019-01-16 02:43] LABS: Absolute Lymphocytes (CBC) 1.5 K/uL (0.7-4.9); Absolute Monocytes 0.8 K/uL (0.1-1.3); Absolute Neutrophil 8.1 K/uL (1.8-8.0); Basophils % 0.2 % (0-1.3); Eosinophils % 0.9 % (0-4.4); Hematocrit 40.6 % (36.0-45.0); Lymphocytes % 14.2 % (15.3-44.8); Monocytes % 7.3 % (3.3-12.3); RBC Red Blood Cell Count 3.98 M/uL (3.86-4.86)
[2019-01-16 02:46] LABS: Protime INR 1.02
[2019-01-16 02:56] LABS: ALT/SGPT 10 U/L (12-78); AST/SGOT 6 U/L (15-37); Alkaline Phosphatase 104 U/L (45-117); BUN Blood Urea Nitrogen 12 mg/dL (7-18); Bicarbonate 31 mmol/L (21-32); Bilirubin Direct 0.1 mg/dL (0-0.2); Bilirubin Total 0.3 mg/dL (0.2-1.0); CKMB Creatine Kinase MB 1.3 ng/mL (0.3-3.6); Creatine Phosphokinase 74 U/L (26-192); Glucose Level 182 mg/dL (74-106); Lipase 46 U/L (73-393); Magnesium 1.8 mg/dL (1.8-2.4); NT PRO-BNP 198 pg/mL (<125); Potassium 3.5 mmol/L (3.5-5.1); Protein, Total 7.4 g/dL (6.4-8.2); Sodium Level 142 mmol/L (136-145); Troponin (Emerg Dept Use Only) < 0.02 ng/mL (0.0-0.045)
[2019-01-16] MEDS ORDERED: LEVALBUTEROL 1.25 MG/3 ML NEB ONE (03:26)
[2019-01-16] MEDS ORDERED: IPRATROPIUM BROM 0.5MG/2.5ML ONE (03:26)
[2019-01-16] MEDS ORDERED: VANCOMYCIN 1 GM/VIAL ONE (03:26)
[2019-01-16] MEDS ORDERED: NA CHLORIDE 0.9% 1,000 ML ONE (03:26)
[2019-01-16] MEDS ORDERED: CEFEPIME 1 GM/100 ML BAG IV ONE (03:26)
[2019-01-16] MEDS ORDERED: NA CHLORIDE 0.9% 250 ML ONE (03:26)
--- NOTE | 2019-01-16 04:09 | ER ---
Nurse's Notes [facility] Name: Lucia rAias Age: 58 yrs Sex: Female : 1960 Arrival Date: 01/16/2019 Time: 02:05 Bed 4 Private MD: Diagnosis: Pneumonia due to other specified infectious organisms Presentation: 01/16 02:05 Presenting complaint: EMS states: that they were toned to intermediate due to pt having fc shortness of breath with low sats of 85% on roomair. assisted gave pt Albuterol/Atrovent neb and had an xray done which showed infiltrates. Pt was also wheezing and very lethargic. Transition of care: patient was received from another setting of care (long-term care facility), [facility]. Onset of symptoms was January 14, 2019. Risk Assessment: Do you want to hurt yourself or someone else? Patient reports no desire to harm self or others. Initial Sepsis Screen: Does the patient meet any 2 criteria? RR > 20 per min. Altered Mental Status. HR > 90 bpm. Does the patient have a suspected source of infection? Yes: Productive cough/pneumonia If YES to both, name of provider notified: Nida Barry MD Care prior to arrival: Medication(s) given: Albuterol Neb x 1, Atrovent Neb x 1, Solu-Medrol 125 mg IV IV initiated. 20 GA, in the left forearm, Glucose check: 147 Med neb given. Oxygen administered. via a nebulizer mask. 02:05 Method Of Arrival: EMS: [facility] 02:05 Acuity: LATONYA 2 fc Historical: - Allergies: 02:22 PENICILLINS; fc 02:22 Codeine; fc 02:22 Demerol; fc 02:22 Sulfa (Sulfonamide Antibiotics); fc - Home Meds: 02:22 aspirin 325 mg Oral tab 1 tab once daily [Active]; benztropine 1 mg Oral tab 1 tab 2 fc times per day [Active]; Cymbalta 60 mg oral cpDR 1 cap once daily [Active]; Depakote Sprinkles 125 mg Oral cpSP 2 caps every 12 hours [Active]; Fanapt 8 mg Oral tab 1 tab 2 times per day [Active]; gabapentin 300 mg Oral cap 1 cap 3 times per day [Active]; Lantus 100 unit/mL Sub-Q soln 32 unit nightly [Active]; Lipitor 40 mg Oral tab 1 tab nightly [Active]; Milk of Magnesia 400 mg/5 mL Oral susp 30 mL daily prn [Active]; ProAir HFA 90 mcg/actuation inhalation HFAA 2 puffs q6h prn [Active]; Risperdal 1 mg Oral tab 1 tab once daily [Active]; Spiriva with HandiHaler 18 mcg inhalation CpDv 1 cap once daily [Active]; Trileptal 150 mg Oral tab 1 tabs 2 times per day [Active]; Triumeq 600-50-300 mg Oral tab 1 tab once daily [Active]; tramadol 50 mg Oral tab 1 tab three times a day [Active]; Vitamin D Oral 2000 unit daily [Active]; - PMHx: 02:22 HIV; UTI; Cellulitis; Diabetes - IDDM; Chronic pain; CAD; GERD; pulmonary edema; fc neuropathy; Hyperlipidemia; Depression; Anxiety; COPD; Schizophrenia; LACK OF COORDINATION; Bipolar disorder; Difficulty walking; - Immunization history:: Last tetanus immunization: up to date Flu vaccine is up to date. - Social history:: Smoking status: unknown Patient/guardian denies using alcohol, street drugs, The patient lives in a intermediate. - Ebola Screening: : Patient negative for fever greater than or equal to 101.5 degrees Fahrenheit, and additional compatible Ebola Virus Disease symptoms Patient denies exposure to infectious person Patient denies travel to an Ebola-affected area in the 21 days before illness onset. Screenin:05 Abuse screen: Denies threats or abuse. Nutritional screening: No deficits noted. Tuberculosis screening: No symptoms or risk factors identified. 02:10 Fall Risk No fall in past 12 months (0 pts). No secondary diagnosis (0 pts). IV access ed1 (20 points). Ambulatory Aid- None/Bed Rest/Nurse Assist (0 pts). Gait- Weak (10 pts.). Mental Status- Oriented to own ability (0 pts). Total Tello Fall Scale indicates Low Risk Score (25-44 pts). Fall prevention measures have been instituted. Side Rails Up X 2 Frequent Obs/Assesments occuring. Assessment: 02:10 General: Appears distressed, Behavior is calm, cooperative. Pain: Denies pain. Neuro: ed1 Level of Consciousness is lethargic. Cardiovascular: Heart tones S1 S2 present Rhythm is sinus tachycardia. Respiratory: Airway is patent Respiratory effort is weak, Respiratory pattern is Breath sounds are coarse bilaterally. Breath sounds are diminished bilaterally. GI: Abdomen is non-distended. : No signs and/or symptoms were reported regarding the genitourinary system. EENT: Oral mucosa is dry. Derm: Skin is intact, is thin, with poor turgor Skin is dry, Skin is normal, Skin temperature is warm. Musculoskeletal: Circulation, motion, and sensation intact. 02:15 Reassessment: RT at bedside to place patient on BiPap. FiO2 at 65%. SpO2 increased to ed1 91%. 04:09 Reassessment: Patient appears in no apparent distress at this time. Patient and/or ed1 family updated on plan of care and expected duration. Pain level reassessed. Neuro: pt responsive to verbal stimuli. Respiratory: Airway is patent Respiratory effort is even, Respiratory pattern is regular, symmetrical. 05:00 Reassessment: Patient appears in no apparent distress at this time. Patient and/or ed1 family updated on plan of care and expected duration. Pain level reassessed. Respiratory: Airway is patent Respiratory effort is even, Respiratory pattern is regular, symmetrical. 06:00 Reassessment: Patient appears in no apparent distress at this time. Patient and/or ed1 family updated on plan of care and expected duration. Pain level reassessed. Neuro: Level of Consciousness is lethargic. Vital Signs: 02:05 BP 97 / 63; Pulse 120; Resp 24; Temp 97.5(TE); Pulse Ox 84% on R/A; Weight 81.65 kg fc (R); Height 5 ft. 7 in. (170.18 cm) (R); Pain 0/10; 04:09 BP 91 / 65; Pulse 93; Resp 16; Pulse Ox 92% on 65% BiPAP; Pain 0/10; ed1 05:00 BP 104 / 76; Pulse 88; Resp 15; Pulse Ox 95% on 65% BiPAP; Pain 0/10; ed1 06:00 BP 116 / 79; Pulse 95; Resp 17; Temp 97.6(TE); Pulse Ox 95% on 65% BiPAP; Pain 0/10; ed1 07:40 BP 106 / 74; Pulse 85; Resp 14; Pulse Ox 97% on BiPAP; sv 02:05 Body Mass Index 28.19 (81.65 kg, 170.18 cm) ED Course: 02:05 Patient arrived in ED. fc 02:05 Arm band placed on Patient placed in an exam room, on a stretcher. fc 02:05 Patient has correct armband on for positive identification. Placed in gown. Bed in low fc position. Call light in reach. Side rails up X2. school lunch monitor on. Pulse ox on. NIBP on. 02:05 Maintain EMS IV. Dressing intact. Good blood return noted. Site clean \T\ dry. Gauge \T\ fc site: 20 gauge to left a/c. 02:07 Nida Barry MD is Attending Physician. ma2 02:10 Janett Ricks, RN is Primary Nurse. ed1 02:10 Triage completed. fc 02:15 X-ray completed. Portable x-ray completed in exam room. Patient tolerated procedure kw well. 02:20 Initial lab(s) drawn, by me, sent to lab. First set of blood cultures drawn by me. bb 02:23 XRAY CXR (1 view) In Process Unspecified. EDMS 02:32 Missed attempt(s): 18 gauge in left antecubital area. bb 03:18 CT Head Brain wo Cont In Process Unspecified. EDMS 03:32 BIPAP Sent. ed1 04:07 Xi Cobb MD is Hospitalizing Provider. ma2 04:32 Blood Culture Sent. ed1 05:16 Procalcitonin Sent. ed1 05:36 No provider procedures requiring assistance completed. ed1 06:59 Primary Nurse role handed off by Janett Ricks, AUBREE ed1 07:24 Colt Thompson, AUBREE is Primary Nurse. sg 08:15 Patient admitted, IV remains in place. intact, No redness/swelling at site. sg Administered Medications: 02:10 CANCELLED (given by ems): SOLU-Medrol 125 mg IVP once ma2 03:31 Drug: Cefepime 1 grams Route: IVPB; Rate: 200 ml/hr; Infused Over: 30 mins; Site: left ed1 forearm; 04:15 Follow up: Response: No adverse reaction; IV Status: Completed infusion; IV Intake: ed1 100ml 03:31 Drug: NS 0.9% 1000 ml Route: IV; Rate: 1 bolus; Site: left forearm; ed1 03:32 Drug: Xopenex 1.25 mg Route: Inhalation; ed1 03:32 Not Given (Other Intervention Used): AtroVENT Aerosol 0.5 mg Inhalation once; Every 20 ed1 min for a total of 3 treatments x3 03:32 Drug: AtroVENT Aerosol 0.5 mg Route: Inhalation; ed1 04:15 Drug: vancoMYCIN 1 grams Route: IVPB; Infused Over: 2 hrs; Site: left forearm; ed1 05:35 Follow up: Response: No adverse reaction; IV Status: Completed infusion; IV Intake: ed1 250ml Intake: 04:15 IV: 100ml; Total: 100ml. ed1 05:35 IV: 250ml; Total: 350ml. ed1 Outcome: 04:08 Decision to Hospitalize by Provider. ma2 08:15 Admitted to ICU accompanied by tech, via stretcher, room 8, with oxygen, on monitor, sg with chart, Report called to Sheba MAK 08:15 Condition: stable 08:15 Instructed on the need for admit, safety practices, Demonstrated understanding of instructions. 08:24 Patient left the ED. sv Signatures: Dispatcher [employer] EDDestiny Oliveira RN Colt Crump RN RN sg Chretien, Felicia, RN RN fc Ballard, Brenda, RN RN bb Riggs, Erika, RN RN ed1 Domenica Kothari Mohammad, MD MD ma2
--- NOTE | 2019-01-16 04:09 | EDPHYS ---
Physician Documentation [facility] Name: Lucia Arias Age: 58 yrs Sex: Female : 1960 Arrival Date: 01/16/2019 Time: 02:05 Bed 4 Private MD: ED Physician Nida Barry HPI: 01/16 02:11 This 58 yrs old Female presents to ER via EMS with complaints of Shortness Of ma2 Breath. 02:11 The patient has shortness of breath at rest. Onset: The symptoms/episode began/occurred ma2 gradually, 1 day(s) ago. Duration: The symptoms are continuous. Associated signs and symptoms: Pertinent negatives: productive cough, fever, loss of consciousness. Severity of symptoms: At their worst the symptoms were moderate severe in the emergency department the symptoms are unchanged. The patient has experienced similar episodes in the past. Historical: - Allergies: 02:22 PENICILLINS; fc 02:22 Codeine; fc 02:22 Demerol; fc 02:22 Sulfa (Sulfonamide Antibiotics); fc - Home Meds: 02:22 aspirin 325 mg Oral tab 1 tab once daily [Active]; benztropine 1 mg Oral tab 1 tab 2 fc times per day [Active]; Cymbalta 60 mg oral cpDR 1 cap once daily [Active]; Depakote Sprinkles 125 mg Oral cpSP 2 caps every 12 hours [Active]; Fanapt 8 mg Oral tab 1 tab 2 times per day [Active]; gabapentin 300 mg Oral cap 1 cap 3 times per day [Active]; Lantus 100 unit/mL Sub-Q soln 32 unit nightly [Active]; Lipitor 40 mg Oral tab 1 tab nightly [Active]; Milk of Magnesia 400 mg/5 mL Oral susp 30 mL daily prn [Active]; ProAir HFA 90 mcg/actuation inhalation HFAA 2 puffs q6h prn [Active]; Risperdal 1 mg Oral tab 1 tab once daily [Active]; Spiriva with HandiHaler 18 mcg inhalation CpDv 1 cap once daily [Active]; Trileptal 150 mg Oral tab 1 tabs 2 times per day [Active]; Triumeq 600-50-300 mg Oral tab 1 tab once daily [Active]; tramadol 50 mg Oral tab 1 tab three times a day [Active]; Vitamin D Oral 2000 unit daily [Active]; - PMHx: 02:22 HIV; UTI; Cellulitis; Diabetes - IDDM; Chronic pain; CAD; GERD; pulmonary edema; fc neuropathy; Hyperlipidemia; Depression; Anxiety; COPD; Schizophrenia; LACK OF COORDINATION; Bipolar disorder; Difficulty walking; - Immunization history:: Last tetanus immunization: up to date Flu vaccine is up to date. - Social history:: Smoking status: unknown Patient/guardian denies using alcohol, street drugs, The patient lives in a long-term. - Ebola Screening: : Patient negative for fever greater than or equal to 101.5 degrees Fahrenheit, and additional compatible Ebola Virus Disease symptoms Patient denies exposure to infectious person Patient denies travel to an Ebola-affected area in the 21 days before illness onset. ROS: 02:11 Constitutional: Negative for fever, chills, and weight loss. ma2 02:11 Respiratory: Positive for shortness of breath, wheezing, Negative for hemoptysis. 02:11 Neuro: Positive for altered mental status, Negative for headache, seizure activity, weakness. 02:11 All other systems are negative. Exam: 02:11 Constitutional: This is a well developed, well nourished patient who is awake, alert, ma2 and in no acute distress. 02:11 Head/Face: Normocephalic, atraumatic. Chest/axilla: Normal chest wall appearance and motion. Nontender with no deformity. No lesions are appreciated. Cardiovascular: Regular rate and rhythm with a normal S1 and S2. No gallops, murmurs, or rubs. Normal PMI, no JVD. No pulse deficits. Abdomen/GI: Soft, non-tender, with normal bowel sounds. No distension or tympany. No guarding or rebound. No evidence of tenderness throughout. MS/ Extremity: Pulses equal, no cyanosis. Neurovascular intact. Full, normal range of motion. Neuro: Awake and alert, GCS 15, oriented to person, place, time, and situation. Cranial nerves II-XII grossly intact. Motor strength 5/5 in all extremities. Sensory grossly intact. Cerebellar exam normal. Normal gait. 02:11 Respiratory: moderate respiratory distress is noted, Respirations: labored breathing, Breath sounds: bronchial sounds, wheezing: Respiratory rate: 30 02:11 Neuro: Mentation: confused. Vital Signs: 02:05 BP 97 / 63; Pulse 120; Resp 24; Temp 97.5(TE); Pulse Ox 84% on R/A; Weight 81.65 kg fc (R); Height 5 ft. 7 in. (170.18 cm) (R); Pain 0/10; 04:09 BP 91 / 65; Pulse 93; Resp 16; Pulse Ox 92% on 65% BiPAP; Pain 0/10; ed1 05:00 BP 104 / 76; Pulse 88; Resp 15; Pulse Ox 95% on 65% BiPAP; Pain 0/10; ed1 06:00 BP 116 / 79; Pulse 95; Resp 17; Temp 97.6(TE); Pulse Ox 95% on 65% BiPAP; Pain 0/10; ed1 07:40 BP 106 / 74; Pulse 85; Resp 14; Pulse Ox 97% on BiPAP; sv 02:05 Body Mass Index 28.19 (81.65 kg, 170.18 cm) fc MDM: 02:07 Patient medically screened. [facility] 02:11 Differential diagnosis: asthma, Chronic Obstructive Pulmonary Disease pneumonia, ma2 Pneumothorax pulmonary edema, reactive airway disease, Sepsis. Antibiotic administration: 04:05 Data reviewed: vital signs, nurses notes. Counseling: I had a detailed discussion with [facility] the patient and/or guardian regarding: the historical points, exam findings, and any diagnostic results supporting the discharge/admit diagnosis, the presence of at least one elevated blood pressure reading (>120/80) during this emergency department visit, the need for further work-up and treatment in the hospital. Response to treatment: the patient's symptoms have markedly improved after treatment. 04:05 ED course: discussed with dr. lainez. 01/16 02:09 Order name: Blood Culture Adult (2) 01/16 02:09 Order name: BMP 01/16 02:09 Order name: CBC with Diff; Complete Time: 02:50 01/16 02:09 Order name: Ckmb; Complete Time: 03:06 01/16 02:09 Order name: CPK; Complete Time: 03:06 01/16 02:09 Order name: Hepatic Function; Complete Time: 03:06 01/16 02:09 Order name: Lipase; Complete Time: 03:06 01/16 02:09 Order name: Magnesium; Complete Time: 03:06 [facility] 01/16 02:09 Order name: NT PRO-BNP; Complete Time: 03:06 [facility] 01/16 02:09 Order name: PT-INR; Complete Time: 02:50 [facility] 01/16 02:09 Order name: Ptt, Activated; Complete Time: 02:50 [facility] 01/16 02:09 Order name: Troponin (emerg Dept Use Only); Complete Time: 03:06 [facility] 01/16 02:10 Order name: Blood Culture [facility] 01/16 02:10 Order name: Basic Metabolic Panel; Complete Time: 03:06 [facility] 01/16 02:09 Order name: Call RT; Complete Time: 02:14 [facility] 01/16 02:09 Order name: BIPAP [facility] 01/16 02:09 Order name: XRAY CXR (1 view) [facility] 01/16 02:09 Order name: CT Head Brain wo Cont [facility] 01/16 02:11 Order name: ABG; Complete Time: 04:00 [facility] 01/16 02:26 Order name: Lactate; Complete Time: 03:06 [facility] 01/16 04:36 Order name: Influenza Screen (A [facility] 01/16 04:41 Order name: Procalcitonin [facility] 01/16 02:09 Order name: EKG; Complete Time: 02:11 [facility] 01/16 02:09 Order name: Cardiac monitoring; Complete Time: 02:15 [facility] 01/16 02:09 Order name: EKG - Nurse/Tech; Complete Time: 03:02 [facility] 01/16 02:09 Order name: IV Saline Lock; Complete Time: 02:33 [facility] 01/16 02:09 Order name: Labs collected and sent; Complete Time: 02:33 ar01/16 02:09 Order name: O2 Per Protocol; Complete Time: 02:15 [facility] 01/16 02:09 Order name: O2 Sat Monitoring; Complete Time: 02:16 ma2 Administered Medications: 02:10 CANCELLED (given by ems): SOLU-Medrol 125 mg IVP once [facility] 03:31 Drug: Cefepime 1 grams Route: IVPB; Rate: 200 ml/hr; Infused Over: 30 mins; Site: left ed1 forearm; 04:15 Follow up: Response: No adverse reaction; IV Status: Completed infusion; IV Intake: ed1 100ml 03:31 Drug: NS 0.9% 1000 ml Route: IV; Rate: 1 bolus; Site: left forearm; ed1 03:32 Drug: Xopenex 1.25 mg Route: Inhalation; ed1 03:32 Not Given (Other Intervention Used): AtroVENT Aerosol 0.5 mg Inhalation once; Every 20 ed1 min for a total of 3 treatments x3 03:32 Drug: AtroVENT Aerosol 0.5 mg Route: Inhalation; ed1 04:15 Drug: vancoMYCIN 1 grams Route: IVPB; Infused Over: 2 hrs; Site: left forearm; ed1 05:35 Follow up: Response: No adverse reaction; IV Status: Completed infusion; IV Intake: ed1 250ml Disposition: 01/16/19 04:08 Hospitalization ordered by Xi Lainez for Inpatient Admission. Preliminary diagnosis is Pneumonia due to other specified infectious organisms. - Bed requested for Intensive Care Unit. - Status is Inpatient Admission. sv - Condition is Critical. - Problem is new. - Symptoms have improved. UTI on Admission? No Signatures: Dispatcher [employer] [facility] Destiny Shahid RN RN Freya Moise RN RN Martha Israel RN AUBREE Janett Ricks RN RN ed1 Nida Barry MD MD [facility] Corrections: (The following items were deleted from the chart) 02:10 02:09 SOLU-Medrol 125 mg IVP once ordered. [place] [id number] 04:41 04:41 Lactate ordered. [facility] EDNY 05:27 04:08 Hospitalization Ordered by Xi Lainez MD for Inpatient Admission. Preliminary diagnosis is Pneumonia due to other specified infectious organisms. Bed requested for Intensive Care Unit. Status is Inpatient Admission. Condition is Critical. Problem is new. Symptoms have improved. UTI on Admission? No. ar2 05:53 02:09 Funes ordered. ar2 ed1 08:24 05:27 01/16/2019 04:08 Hospitalization Ordered by Xi Lainez MD for Inpatient sv Admission. Preliminary diagnosis is Pneumonia due to other specified infectious organisms. Bed requested for Intensive Care Unit. Status is Inpatient Admission. Condition is Critical. Problem is new. Symptoms have improved. UTI on Admission? No. mw
--- NOTE | 2019-01-16 04:51 | P.HP ---
Certification for Inpatient Patient admitted to: Inpatient With expected LOS: >2 Midnights Practitioner: I am a practitioner with admitting privileges, knowledge of patient current condition, hospital course, and medical plan of care. Services: Services provided to patient in accordance with Admission requirements found in Title 42 Section 412.3 of the Code of Federal Regulations Patient History Date of Service: 01/16/19 Reason for admission: acute respiratory failure History of Present Illness: Ms Arias is a 58 years old woman with history of HIV, COPD, schizophrenia, diabetes mellitus II, resident of a local shelter, who start this morning with SOB, her O2 sat on RA was 85%, she was more lethargic as well. No known history of fever or chills. The patient was unresponsive at my examination. Lab work remarkable for normal WBC, normal lactate. CXR bilateral infiltrate. ABG shows PH 7.35, PCO2 55.9, PO2 60.6. She was placed in BiPAP. No fever in ER. CT head shows no obvious intracranial bleeding. Awaiting radiology report. Allergies codeine Allergy (Intermediate, Verified 08/27/15 00:23) Unknown Penicillins Allergy (Intermediate, Verified 08/27/15 00:23) Unknown Home medications list reviewed: Yes Home Medications: Aspirin 325 mg PO DAILY 04/15/17 Atorvastatin Calcium [Lipitor*] 40 mg PO BEDTIME 04/15/17 Gabapentin [Neurontin*] 300 mg PO TID 04/15/17 Benztropine Mesylate [Cogentin*] 1 mg PO BID 05/03/17 Iloperidone [Fanapt] 8 mg PO BID 05/03/17 Abacavir/Dolutegravir/Lamivudi [Triumeq 600-50-300 mg Tablet] 1 each PO DAILY Albuterol Sulfate [Proair Hfa] 2 puff IH Q6HP PRN 08/29/18 Cholecalciferol (Vitamin D3) [Vitamin D3] 2,000 unit PO DAILY 08/29/18 Divalproex [Depakote Sprinkle*] 250 mg PO BID 08/29/18 Duloxetine HCl [Cymbalta] 60 mg PO DAILY 08/29/18 Insulin Glargine Human [Lantus*] 32 unit SQ BEDTIME 08/29/18 Mag Hydroxide 8% [Milk Of Magnesia*] 30 ml PO DAILYPRN PRN 08/29/18 OXcarbazepine [Trileptal*] 150 mg PO BID 08/29/18 Tiotropium [Spiriva Handihaler*] 18 mcg IH DAILY 08/29/18 Tramadol HCl [Ultram] 50 mg PO BEDTIME 08/29/18 risperiDONE [Risperdal 1 mg tab*] 1 mg PO DAILY 08/29/18 - Past Medical/Surgical History Diabetic: No -: Bipolar disorder -: Schizophrenia -: HIV -: COPD -: Depression -: hysterectomy -: appendectomy - Family History Father -: Lung disease, Diabetes Mother -: Lung disease - Social History Smoking Status: Former smoker Alcohol use: No CD- Drugs: No Caffeine use: No Place of Residence: Home Review of Systems 10-point ROS is otherwise unremarkable Physical Examination - Physical Exam General: In no apparent distress, Unresponsive HEENT: Atraumatic, PERRLA, Sclerae nonicteric Neck: Supple, 2+ carotid pulse no bruit, No LAD, Without JVD or thyroid abnormality Respiratory: Diminished, Crackles/rales (crackles bibasilar), Expiratory wheezes (scattered bilateral) Cardiovascular: Regular rate/rhythm, Normal S1 S2 Gastrointestinal: Normal bowel sounds, No tenderness Musculoskeletal: No tenderness Integumentary: No rashes Neurological: Normal strength at 5/5 x4 extr, Normal tone Lymphatics: No axilla or inguinal lymphadenopathy - Studies Laboratory Data (last 24 hrs) 01/16/19 02:20: PT 12.0, INR 1.02, APTT 31.0 01/16/19 02:20: WBC 10.5, Hgb 13.6, Hct 40.6, Plt Count 191 01/16/19 02:20: Sodium 142, Potassium 3.5, BUN 12, Creatinine 0.72, Glucose 182 H, Magnesium 1.8, Total Bilirubin 0.3, AST 6 L, ALT 10 L, Alkaline Phosphatase 104, Lipase 46 L Assessment and Plan - Problems (Diagnosis) (1) Acute encephalopathy Current Visit: Yes Status: Acute (2) Acute respiratory failure Current Visit: Yes Status: Acute Qualifiers: Respiratory failure complication: hypoxia and hypercapnia Qualified Code(s) : J96.01 - Acute respiratory failure with hypoxia; J96.02 - Acute respiratory failure with hypercapnia (3) COPD exacerbation Current Visit: Yes Status: Acute (4) Diabetes mellitus Onset Date: 08/30/18 Current Visit: No Status: Chronic Qualifiers: Diabetes mellitus type: type 2 Diabetes mellitus chcf insulin use: with chcf use Diabetes mellitus complication status: without complication Qualified Code(s): E11.9 - Type 2 diabetes mellitus without complications; Z79.4 - residential (current) use of insulin (5) HIV (human immunodeficiency virus infection) Onset Date: 07/09/15 Current Visit: No Status: Chronic Qualifiers: HIV symptom status: asymptomatic Qualified Code(s): Z21 - Asymptomatic human immunodeficiency virus [HIV] infection status - Plan Will admit the patient to the hospital due to acute respiratory failure due to COPD exacerbation. Will order procalcitonin, influenza screening. Also order empiric antibiotic therapy, breathing treatment and IV steroids. Continue BiPAP , admit to ICU. Consult Dr Fenton. - Advance Directives Does patient have a Living Will: No Does patient have a Durable POA for Healthcare: No - Code Status/Comfort Care Code Status Assessed: Yes Code Status: Full Code
--- NOTE | 2019-01-16 08:23 | RAD REPORT ---
EXAM DESCRIPTION: RAD - Chest Single View - 01/16/2019 2:16 am CLINICAL HISTORY: CONGESTION Chest pain. COMPARISON: Chest Single View dated 12/26/2018; Chest Single View dated 10/24/2018; Chest Single View dated 09/06/2018; Chest Single View dated 08/31/2018 FINDINGS: Portable technique limits examination quality. Bibasilar lung opacities are present, greater in the left lower lobe, compatible with bibasilar pneum onia. The heart is normal in size. No displaced fractures. IMPRESSION: Moderate bibasilar pneumonia, greater on the left.
--- NOTE | 2019-01-16 08:47 | EKG ---
Test Date: 2019-01-16 Test Time: 02:44:19 Medical Case Manager: AER MEASUREMENT RESULTS: Intervals: Rate: 116 AZ: 164 QRSD: 80 QT: 314 QTc: 436 [place]: P: 78 AZ: 164 QRS: -51 T: 58 INTERPRETIVE STATEMENTS: Sinus tachycardia Low voltage QRS Left anterior fascicular block Abnormal ECG Compared to ECG 12/26/2018 08:46:14 Low QRS voltage now present Left anterior fascicular block now present Sinus rhythm no longer present Left-axis deviation no longer present Myocardial infarct finding no longer present Electronically Signed On 01-16-19 08:45:51 EQUINE INTERN by Garcia Knapp
[2019-01-16] MEDS ORDERED: ONDANSETRON 4 MG/2 ML VIAL IV PRN (09:05)
[2019-01-16] MEDS ORDERED: ALBUTEROL 2.5 MG/3 ML NEB SOL NEB PRN (09:05)
[2019-01-16] MEDS ORDERED: NA CHLORIDE 0.9% 1,000 ML IV SCH (09:05)
[2019-01-16] MEDS ORDERED: ACETAMINOPHEN 500 MG TAB PO PRN (09:05)
[2019-01-16] MEDS: ARFORMOTEROL TARTRATE 15 MCG/2 ML VIAL.NEB NEB SCH ×2 (09:05→20:00)
[2019-01-16] MEDS ORDERED: D50W 25 GM/50 ML SYRINGE IV PRN ×2 (09:05→16:21)
[2019-01-16] MEDS ORDERED: IPRATROPIUM BROM 0.5MG/2.5ML NEB PRN (09:05)
[2019-01-16] MEDS ORDERED: THIAMINE 200 MG/2 ML INJ IM SCH (09:05)
[2019-01-16] MEDS ORDERED: GLUCAGON 1 MG/VIAL IM PRN ×2 (09:05→16:21)
[2019-01-16] MEDS ORDERED: INSULIN -REGULAR HUMAN 50 UNIT/0.5 ML ML SQ SCH ×2 (09:05→12:00)
--- NOTE | 2019-01-16 09:07 | P.PN ---
Subjective Date of Service: 01/16/19 Primary Care Provider: NORA physician Chief Complaint: acute respiratory failure Subjective: Other (Patient on BiPAP. Still confused.) Physical Examination - Vital Signs Temperature: 97.6 F Blood Pressure: 106/74 Pulse: 85 Respirations: 14 - Physical Exam General: Alert, In no apparent distress, Confused, Other (Currently on BiPAP) HEENT: Atraumatic Neck: Supple Respiratory: Crackles/rales (To the bases bilateral) Cardiovascular: Normal pulses, Regular rate/rhythm Gastrointestinal: Normal bowel sounds, Soft and benign, Non-distended, No tenderness, No masses, No rebound, No guarding Musculoskeletal: No erythema, No tenderness, No warmth Integumentary: No tenderness/swelling, No erythema, No warmth, No cyanosis Neurological: Normal strength at 5/5 x4 extr, Normal tone, Other (Patient with increased confusion) - Studies Laboratory Data (last 24 hrs) 01/16/19 02:20: PT 12.0, INR 1.02, APTT 31.0 01/16/19 02:20: WBC 10.5, Hgb 13.6, Hct 40.6, Plt Count 191 01/16/19 02:20: Sodium 142, Potassium 3.5, BUN 12, Creatinine 0.72, Glucose 182 H, Magnesium 1.8, Total Bilirubin 0.3, AST 6 L, ALT 10 L, Alkaline Phosphatase 104, Lipase 46 L Medications List Reviewed: Yes Assessment & Plan Discharge Plan: Longterm Plan to discharge in: Greater than 2 days Physician Review Additional Text: Impression: Acute on chronic respiratory failure with hypoxia and hypercapnia secondary to bilateral pneumonia complicated with COPD exacerbation Toxic encephalopathy likely related to bilateral pneumonia Diabetes mellitus type 2 HIV, chronic Schizophrenia Plan: Acute on chronic respiratory failure with hypoxia and hypercapnia secondary to bilateral pneumonia complicated with COPD exacerbation: Patient remains on BiPAP. Will continue to wean off and monitor closely with respiratory. Pulmonology consulted. Lactic acid and pro calcitonin negative. Patient on antibiotic therapy for coverage for pneumonia. Patient on Solu-Medrol as well. Continue COPD medication. Will continue monitor closely. Patient will remain in ICU until more improvement is noted. Will monitor closely. Continue to reassess. Recheck x-ray and lab. Toxic encephalopathy likely related to bilateral pneumonia: Blood cultures obtained. Continue antibiotic therapy. Will check for influenza. Continue with IV fluids. Diabetes mellitus type 2: Will monitor Accu-Cheks. Will provide sliding scale. HIV, chronic: Will need to review and restart shelter medication Schizophrenia: Will need to review and restart shelter medication once she is more alert. Time Spent Managing Pts Care (In Minutes): 55
[2019-01-16] MEDS: FAMOTIDINE 20 MG/2 ML VIAL IV SCH ×2 (09:30→20:54)
[2019-01-16] MEDS ORDERED: MAGNESIUM SULFATE 1 gm IVPB 1 GM/100 ML BAG IV ONE (09:57)
[2019-01-16] MEDS ORDERED: Levofloxacin 750mg IV 750 MG/150 ML BAG IV SCH (10:00)
[2019-01-16] MEDS ORDERED: KCL 20 MEQ/100 mL IVPB 20 MEQ/100 ML BAG IV SCH (10:00)
[2019-01-16] MEDS: NACHLORIDE 0.45% 1,000 ML IV SCH ×2 (10:10→20:53)
[2019-01-16] MEDS: ENOXAPARIN 40 MG/0.4 ML SQ SCH (10:13)
[2019-01-16] MEDS: METHYLPREDNISOLONE 40 MG INJ IV SCH ×2 (10:13→17:20)
[2019-01-16] MEDS: INSULIN -REGULAR HUMAN 50 UNIT/0.5 ML ML SQ SCH ×2 (16:30→20:54)
--- NOTE | 2019-01-16 16:58 | RAD REPORT ---
EXAM DESCRIPTION: Head Brain Wo Cont CLINICAL HISTORY: 58 years female CONFUSED COMPARISON: Head CT without contrast dated December 26, 2018. TECHNIQUE: Contiguous axial images of the brain were obtained without the administration of intravenous contrast . This exam was performed according to our departmental dose-optimization program, which includes aut omated exposure control, adjustment of the mA and/or kV according to patient size and/or less of iter ative reconstruction technique. FINDINGS: Brain: No acute intracranial hemorrhage. No acute territorial infarct. No extra-axial annie ection. No mass effect or herniation. Mild prominence of the sulci and cisterns Confluent periventric ular and subcortical white matter hypodensity is noted. Ventricles: Allowing for underlying cerebral volume loss, ventricular size appears within normal limi ts. Globes and orbits: No acute abnormality. Bones: No acute osseous finding. Paranasal sinuses: Paranasal sinuses are clear. Mastoid air cells: Right mastoid effusion. Soft tissues: Within normal limits. Manager Fire view shows no additional significant finding. IMPRESSION: No acute intracranial abnormality. Cerebral volume loss and chronic small vesel ischemic changes. Right mastoid effusion. Electronically signed by Kalen Gamble DO 01/16/2019 3:22 AM POL[employer] Due to temporary technical issues with the PACS/Fluency reporting system, reports are being signed by the in house radiologist as a courtesy to ensure prompt reporting. The interpreting radiologist is f ully responsible for the content of the report.
[2019-01-17] MEDS: METHYLPREDNISOLONE 40 MG INJ IV SCH (01:57)
[2019-01-17 05:31] LABS: Absolute Lymphocytes (CBC) 0.7 K/uL (0.7-4.9); Absolute Monocytes 0.3 K/uL (0.1-1.3); Absolute Neutrophil 11.6 K/uL (1.8-8.0); Basophils % 0.1 % (0-1.3); Lymphocytes % 5.7 % (15.3-44.8); Monocytes % 2.1 % (3.3-12.3); RBC Red Blood Cell Count 3.89 M/uL (3.86-4.86)
[2019-01-17 05:39] LABS: BUN Blood Urea Nitrogen 10 mg/dL (7-18); Bicarbonate 29 mmol/L (21-32); Glucose Level 176 mg/dL (74-106); Potassium 4.2 mmol/L (3.5-5.1); Sodium Level 139 mmol/L (136-145)
[2019-01-17 05:59] VITALS: BMI 28.3
[2019-01-17] MEDS: NACHLORIDE 0.45% 1,000 ML IV SCH (06:07)
[2019-01-17 06:15] LABS: Blood Morphology Comment NOT SEEN (NOT SEEN); Platelet Estimate ADEQ
[2019-01-17] MEDS: INSULIN -REGULAR HUMAN 50 UNIT/0.5 ML ML SQ SCH ×4 (07:30→21:00)
--- NOTE | 2019-01-17 08:46 | P.CNS ---
Date of Consult: 01/17/19 Primary Care Provider: NORA physician Chief Complaint: COPD exacerbation History of Present Illness: Patient is 58 years of age with a history of COPD active smoker this found to have low sats in the [place] [facility] and was admitted found to be hypoxic she is an active smoker has COPD is currently doing well apart from wheezing patient does take Spiriva and is doing well denies any cough sputum chest pain Allergies codeine Allergy (Intermediate, Verified 08/27/15 00:23) Unknown Penicillins Allergy (Intermediate, Verified 08/27/15 00:23) Unknown Home Medications: Abacavir/Dolutegravir/Lamivudi [Triumeq 600-50-300 mg Tablet] 1 tab PO DAILY Albuterol Sulfate [Proair Hfa] 2 puff IH Q6H PRN 01/16/19 Aspirin [Aspirin EC 325 MG] 325 mg PO DAILY 01/16/19 Atorvastatin Calcium [Lipitor] 40 mg PO BEDTIME 01/16/19 Benztropine Mesylate [Cogentin] 1 mg PO BID 01/16/19 Cholecalciferol (Vitamin D3) [Vitamin D3] 2,000 unit PO DAILY 01/16/19 Divalproex [Depakote Sprinkle*] 250 mg PO BID 01/16/19 Duloxetine HCl [Cymbalta] 60 mg PO DAILY 01/16/19 Gabapentin [Neurontin*] 300 mg PO TID 01/16/19 Iloperidone [Fanapt] 8 mg PO BID 01/16/19 Magnesium Hydroxide [Milk of Magnesia] 150 mg PO DAILY PRN 01/16/19 Oxcarbazepine [Trileptal] 150 mg PO DAILY 01/16/19 Risperidone [Risperdal] 1 mg PO DAILY 01/16/19 Tiotropium [place] [Spiriva] 1 puff IH DAILY 01/16/19 Tramadol HCl [Ultram] 50 mg PO BEDTIME 01/16/19 - Past Medical/Surgical History Diabetic: No -: Bipolar disorder -: Schizophrenia -: HIV -: COPD -: Depression -: hysterectomy -: appendectomy - Family History Father History Unknown: Yes Medical History: Lung disease, Diabetes Notes: patient is drowsy - unable to proceed. information taken from previous medical record Mother History Unknown: Yes Medical History: Lung disease Notes: patient is drowsy - unable to proceed. information taken from previous medical record - Social History Smoking Status: Unknown if ever smoked Alcohol use: No CD- Drugs: No Caffeine use: No Place of Residence: Care Home Review of Systems 10-point ROS is otherwise unremarkable General: Weakness Respiratory: Shortness of Breath Musculoskeletal: Other (Has some toe fractures) Physical Examination Temp Pulse Resp BP Pulse Ox 98 F 82 14 148/89 H 96 01/17/19 04:00 01/17/19 07:00 01/17/19 07:00 01/17/19 07:00 01/17/19 07:00 General: Alert, In no apparent distress, Oriented x3, Cachectic Neck: Supple Respiratory: Expiratory wheezes Cardiovascular: No edema, Regular rate/rhythm Gastrointestinal: Normal bowel sounds, Soft and benign - Problems (1) COPD exacerbation Onset Date: 01/17/19 Current Visit: Yes Status: Acute Plan: Patient is 58 years of age admitted with COPD exacerbation continues to smoke labs reviewed unremarkable glucose a little elevated chest x-ray abnormal some blunting of the left costophrenic angles patient's has some haziness is no clinical evidence of sepsis is quite possible that she has pneumonia based on her chest x-ray 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
--- NOTE | 2019-01-17 08:58 | RAD REPORT ---
EXAM DESCRIPTION: [place] Single View01/17/2019 6:45 am CLINICAL HISTORY: Chest pain COMPARISON: January 15, 2019 FINDINGS: Partial resolution in the bibasilar opacities. The heart is normal size IMPRESSION: Partial resolution in the bibasilar pneumonia
[2019-01-17] MEDS: ARFORMOTEROL TARTRATE 15 MCG/2 ML VIAL.NEB NEB SCH ×2 (09:20→19:31)
[2019-01-17] MEDS: predniSONE 20 MG TAB PO SCH ×2 (09:37→20:18)
[2019-01-17] MEDS: levoFLOXacin 500 MG TAB PO SCH (09:37)
[2019-01-17] MEDS: ENOXAPARIN 40 MG/0.4 ML SQ SCH (09:37)
[2019-01-17] MEDS: DOXYCYCLINE 100 MG CAP PO SCH ×2 (09:38→20:18)
--- NOTE | 2019-01-17 11:29 | RAD REPORT ---
EXAM DESCRIPTION: RAD - Chest Pa And Lat (2 Views) - 01/17/2019 11:24 am CLINICAL HISTORY: Pneumonia Chest pain. COMPARISON: Chest Single View dated 01/17/2019; Chest Single View dated 01/16/2019; Chest Single View dated 12/26/2018; Chest Single View dated 10/24/2018 FINDINGS: Mild opacities in both lung bases persists, mildly improved since comparative study. Findi ngs are more severe on the left. Small pleural effusions are present bilaterally. The heart is upper limit normal in size. No displaced fractures. IMPRESSION: Mild improvement in bibasilar pneumonia pattern since prior examinations.
[2019-01-17] MEDS ORDERED: TRAMADOL HCL 50 MG TAB PO PRN (13:41)
[2019-01-17] MEDS: IPRATROPIUM BROM 0.5MG/2.5ML NEB SCH ×2 (14:00→19:31)
[2019-01-17] MEDS: GABAPENTIN 300 MG CAP PO SCH ×2 (14:11→20:18)
[2019-01-17] MEDS ORDERED: ALBUTEROL 2.5 MG/3 ML NEB SOL NEB PRN (15:00)
[2019-01-17] MEDS ORDERED: IPRATROPIUM BROM 0.5MG/2.5ML NEB PRN (15:00)
--- NOTE | 2019-01-17 16:11 | P.PN ---
Subjective Date of Service: 01/17/19 Primary Care Provider: NORA physician Chief Complaint: COPD exacerbation Subjective: Improving Physical Examination - Vital Signs Temperature: 98 F Blood Pressure: 135/87 Pulse: 102 Respirations: 13 Pulse Ox (%): 94 - Physical Exam General: Alert, In no apparent distress, Oriented x3, Cooperative HEENT: Atraumatic Neck: Supple Respiratory: Expiratory wheezes, Inspiratory wheezes Cardiovascular: Normal pulses, Regular rate/rhythm Gastrointestinal: Normal bowel sounds, Soft and benign, Non-distended, No masses , No rebound, No guarding Musculoskeletal: No erythema, No tenderness, No warmth Integumentary: No erythema, No warmth, No cyanosis Neurological: Normal speech, Normal strength at 5/5 x4 extr, Normal tone, Normal affect - Studies Medications List Reviewed: Yes Assessment & Plan Discharge Plan: [facility]pc Plan to discharge in: 24 Hours Physician Review Additional Text: Impression: Acute on chronic respiratory failure with hypoxia and hypercapnia secondary to bilateral pneumonia complicated with COPD exacerbation Toxic encephalopathy likely related to bilateral pneumonia Diabetes mellitus type 2 HIV, chronic Schizophrenia Hyperlipidemia Plan: Acute on chronic respiratory failure with hypoxia and hypercapnia secondary to bilateral pneumonia complicated with COPD exacerbation: Patient continues to improve. Patient on nasal cannula. Will transition patient to floor. Pulmonology has adjusted medication. Antibiotics adjusted. Continue with COPD medication. Will have physical therapy assess ambulation. Likely discharge back to the [place] [facility] in the next 1-2 days. Toxic encephalopathy likely related to bilateral pneumonia: Blood cultures obtained. Continue antibiotic therapy. Antibiotics adjusted by pulmonology Diabetes mellitus type 2: Will monitor Accu-Cheks. Will provide sliding scale. HIV, chronic: Restart home medication Schizophrenia: Restart home medication Hyperlipidemia: Restart home medication Time Spent Managing Pts Care (In Minutes): 55
[2019-01-17] MEDS: ILOPERIDONE 8 MG PO SCH (20:15)
[2019-01-17] MEDS: DIVALPROEX NA 125 MG CAP PO SCH (20:17)
[2019-01-17] MEDS: BENZTROPINE 1 MG TAB PO SCH (20:18)
[2019-01-17] MEDS ORDERED: ATORVASTATIN 40 MG TAB PO SCH (21:00)
[2019-01-17] MEDS ORDERED: BENZTROPINE MESYLATE 1 MG PO SCH (21:00)
[2019-01-18] MEDS: IPRATROPIUM BROM 0.5MG/2.5ML NEB SCH ×2 (01:30→07:40)
[2019-01-18 06:22] LABS: Absolute Lymphocytes (CBC) 1.1 K/uL (0.7-4.9); Absolute Monocytes 0.5 K/uL (0.1-1.3); Absolute Neutrophil 6.7 K/uL (1.8-8.0); Basophils % 0.2 % (0-1.3); Hematocrit 40.6 % (36.0-45.0); Lymphocytes % 13.2 % (15.3-44.8); MPV 8.9 fL (7.6-11.3); Monocytes % 6.1 % (3.3-12.3); RBC Red Blood Cell Count 4.06 M/uL (3.86-4.86)
[2019-01-18] MEDS: INSULIN -REGULAR HUMAN 50 UNIT/0.5 ML ML SQ SCH ×2 (07:30→11:30)
[2019-01-18] MEDS: ARFORMOTEROL TARTRATE 15 MCG/2 ML VIAL.NEB NEB SCH (07:40)
--- NOTE | 2019-01-18 08:33 | P.PN ---
Subjective Date of Service: 01/18/19 Primary Care Provider: NORA physician Chief Complaint: COPD exacerbation Subjective: Improving (Patient is doing much better no new complaints poor historian unable to communicate) Review of Systems is unable to be obtained Physical Examination - Vital Signs Temperature: 99.8 F Blood Pressure: 102/50 Pulse: 77 Respirations: 18 Pulse Ox (%): 91 - Physical Exam General: Alert, In no apparent distress Respiratory: Expiratory wheezes Cardiovascular: No edema, Regular rate/rhythm - Studies Medications List Reviewed: Yes Assessment & Plan - Problems (Diagnosis) (1) COPD exacerbation Onset Date: 01/17/19 Current Visit: Yes Status: Acute Plan: Patient admitted with COPD exacerbation and be discharged home on low-dose prednisone 10 mg twice a day for 7 days in addition to levofloxacin for 5 days and that she will need a bronchodilator consider brought Wanna or perform missed 1 amp twice a day patient is on HIV treatment room-air sats satisfactory Physician Review Additional Text: Impression: Acute on chronic respiratory failure with hypoxia and hypercapnia secondary to bilateral pneumonia complicated with COPD exacerbation Toxic encephalopathy likely related to bilateral pneumonia Diabetes mellitus type 2 HIV, chronic Schizophrenia Hyperlipidemia Plan: Acute on chronic respiratory failure with hypoxia and hypercapnia secondary to bilateral pneumonia complicated with COPD exacerbation: Patient continues to improve. Patient on nasal cannula. Will transition patient to floor. Pulmonology has adjusted medication. Antibiotics adjusted. Continue with COPD medication. Will have physical therapy assess ambulation. Likely discharge back to the [facility] in the next 1-2 days. Toxic encephalopathy likely related to bilateral pneumonia: Blood cultures obtained. Continue antibiotic therapy. Antibiotics adjusted by pulmonology Diabetes mellitus type 2: Will monitor Accu-Cheks. Will provide sliding scale. HIV, chronic: Restart home medication Schizophrenia: Restart home medication Hyperlipidemia: Restart home medication
[2019-01-18] MEDS ORDERED: DOLUTEGRAVIR PO SCH (09:00)
[2019-01-18] MEDS ORDERED: OXcarbazepine 150 MG TAB PO SCH (09:00)
[2019-01-18] MEDS ORDERED: HOME MED 1 EA UNK (Cholecalciferol (Vitamin D3) [Vitamin D3] 2,000 UNIT) PO SCH (09:00)
[2019-01-18] MEDS ORDERED: LAMIVUDI PO SCH (09:00)
[2019-01-18] MEDS ORDERED: ABACAVIR PO SCH (09:00)
[2019-01-18] MEDS ORDERED: VITAMIN D 1000 UNIT TAB PO SCH (09:00)
[2019-01-18] MEDS ORDERED: DULOXETINE 30 MG CAP PO SCH (09:00)
[2019-01-18] MEDS: ILOPERIDONE 8 MG PO SCH (09:00)
[2019-01-18] MEDS ORDERED: RISPERIDONE 1 MG TABLET PO SCH (09:00)
[2019-01-18] MEDS ORDERED: HOME MED 1 EA UNK (Duloxetine Hcl [Cymbalta] 60 MG) PO SCH (09:00)
[2019-01-18] MEDS ORDERED: HOME MED 1 EA UNK (Aspirin [Aspirin Ec 325 Mg] 325 MG) PO SCH (09:00)
[2019-01-18] MEDS ORDERED: ASPIRIN EC 325 MG TABLET PO SCH (09:00)
[2019-01-18] MEDS: BENZTROPINE 1 MG TAB PO SCH (09:31)
[2019-01-18] MEDS: DIVALPROEX NA 125 MG CAP PO SCH (09:31)
[2019-01-18] MEDS: levoFLOXacin 500 MG TAB PO SCH (09:31)
[2019-01-18] MEDS: predniSONE 20 MG TAB PO SCH (09:31)
[2019-01-18] MEDS: GABAPENTIN 300 MG CAP PO SCH (09:32)
[2019-01-18] MEDS: ENOXAPARIN 40 MG/0.4 ML SQ SCH (09:32)
--- NOTE | 2019-01-18 10:13 | P.DS ---
Admission Date: 01/16/19 Discharge Date: 01/18/19 Primary Care Provider: NORA physician Disposition: TRANSFER TO SKILLED NURSING Discharge Condition: GOOD Reason for Admission: COPD exacerbation Consultations: Pulmonary-Dr. Fenton Procedures: CT head: COMPARISON: Head CT without contrast dated December 26, 2018. TECHNIQUE: Contiguous axial images of the brain were obtained without the administration of intravenous contrast. This exam was performed according to our departmental dose-optimization program, which includes automated exposure control, adjustment of the mA and/or kV according to patient size and/or less of iterative reconstruction technique. FINDINGS: Brain: No acute intracranial hemorrhage. No acute territorial infarct. No extra-axial collection. No mass effect or herniation. Mild prominence of the sulci and cisterns Confluent periventricular and subcortical white matter hypodensity is noted. Ventricles: Allowing for underlying cerebral volume loss, ventricular size appears within normal limits. Globes and orbits: No acute abnormality. Bones: No acute osseous finding. Paranasal sinuses: Paranasal sinuses are clear. Mastoid air cells: Right mastoid effusion. Soft tissues: Within normal limits. [employer] view shows no additional significant finding. IMPRESSION: No acute intracranial abnormality. Cerebral volume loss and chronic small vesel ischemic changes. Right mastoid effusion. CXR follow up: COMPARISON: January 15, 2019 FINDINGS: Partial resolution in the bibasilar opacities. The heart is normal size IMPRESSION: Partial resolution in the bibasilar pneumonia Medical Problem List: Acute on chronic respiratory failure with hypoxia and hypercapnia secondary to bilateral pneumonia complicated with COPD exacerbation Toxic encephalopathy likely related to bilateral pneumonia Diabetes mellitus type 2 HIV, chronic Schizophrenia Hyperlipidemia Brief History of Present Illness: 58-year-old female presented to the emergency room with shortness of breath and hypoxia. Patient comes from the long-term. Patient with history of diabetes, HIV, schizophrenia, and COPD. Patient required BiPAP in the emergency room. Patient admitted to ICU. Hospital Course: Patient presented with shortness of breath secondary to acute on chronic respiratory failure with hypoxia and hypercapnia secondary to bilateral pneumonia complicated with COPD exacerbation. Patient did well in her stay. Patient was weaned off oxygen. Blood cultures negative. Patient seen and evaluated by pulmonology. At discharge patient will return to the long-term. At discharge she will continue with Levaquin 500 mg daily for 5 more days. Patient will be provided Tessalon Perles 100 mg 3 times a day as needed for cough. For her COPD, new medication includes Brovana 1 unit dose twice daily. She will continue with prednisone 10 mg 1 pill twice daily for 5 days then 1 pill once daily for 5 days. Patient will continue with Spiriva 1 puff daily and albuterol 1 unit dose 3 times a day as needed for shortness of breath. Patient may follow up with pulmonology in 1-2 weeks to follow up this hospitalization. Recommend to recheck lab-CBC in 1 week and chest x-ray in 2-4 weeks to monitor resolution. COPD education and education on pneumonia will be provided. Patient may continue with oxygen at the long-term to maintain sats above 90% if required. Patient with HIV. Patient will continue with her HIV medication-Triumeq daily. Patient with hyperlipidemia. Patient will continue with Lipitor 40 mg daily. Patient with underlying schizophrenia. Patient will continue with her medications including Cogentin 1 mg 1 pill twice daily, Depakote 250 mg 1 pill twice daily, Cymbalta 60 mg 1 pill daily, Trileptal 150 mg daily, and Risperdal 1 mg 1 pill daily. Further adjustment in medication can be done by the long-term physician. Patient with diabetes. Blood sugar remained stable. Patient will continue with diet controlled. Patient may require mild sliding scale in the long-term if required. Patient with diabetic neuropathy. Patient may continue with Neurontin 300 mg 1 pill 3 times a day and tramadol 50 mg at night as needed. Vital Signs/Physical Exam: Temp Pulse Resp BP Pulse Ox 99.8 F 77 18 102/50 L 91 01/18/19 08:33 01/18/19 08:33 01/18/19 08:33 01/18/19 08:33 01/18/19 08:33 General: Alert, In no apparent distress, Oriented x3, Cooperative HEENT: Atraumatic Neck: Supple Respiratory: Clear to auscultation bilaterally, Normal air movement Cardiovascular: Normal pulses, Regular rate/rhythm Gastrointestinal: Normal bowel sounds, Soft and benign, Non-distended, No tenderness, No masses, No rebound, No guarding Musculoskeletal: No erythema, No tenderness, No warmth Integumentary: No tenderness/swelling, No erythema, No warmth, No cyanosis Neurological: Normal speech, Normal strength at 5/5 x4 extr, Normal tone, Normal affect Laboratory Data at Discharge: WBC 8.3 K/uL (4.3-10.9) D 01/18/19 05:29 Hgb 13.7 g/dL (12.0-15.0) 01/18/19 05:29 Hct 40.6 % (36.0-45.0) 01/18/19 05:29 Plt Count 247 K/uL (152-406) 01/18/19 05:29 PT 12.0 SECONDS (9.5-12.5) 01/16/19 02:20 INR 1.02 01/16/19 02:20 APTT 31.0 SECONDS (24.3-36.9) 01/16/19 02:20 Sodium 144 mmol/L (136-145) 01/18/19 05:29 Potassium 4.0 mmol/L (3.5-5.1) 01/18/19 05:29 BUN 22 mg/dL (7-18) H 01/18/19 05:29 Creatinine 0.72 mg/dL (0.55-1.3) 01/18/19 05:29 Glucose 168 mg/dL (74-106) H 01/18/19 05:29 Magnesium 2.0 mg/dL (1.8-2.4) 01/18/19 05:29 Total Bilirubin 0.3 mg/dL (0.2-1.0) 01/16/19 02:20 AST 6 U/L (15-37) L 01/16/19 02:20 ALT 10 U/L (12-78) L 01/16/19 02:20 Alkaline Phosphatase 104 U/L (45-117) 01/16/19 02:20 Lipase 46 U/L (73-393) L 01/16/19 02:20 Home Medications: Abacavir/Dolutegravir/Lamivudi [Triumeq 600-50-300 mg Tablet] 1 tab PO DAILY Albuterol Sulfate [Proair Hfa] 2 puff IH Q6H PRN 01/16/19 Aspirin [Aspirin EC 325 MG] 325 mg PO DAILY 01/16/19 Atorvastatin Calcium [Lipitor] 40 mg PO BEDTIME 01/16/19 Benztropine Mesylate [Cogentin] 1 mg PO BID 01/16/19 Cholecalciferol (Vitamin D3) [Vitamin D3] 2,000 unit PO DAILY 01/16/19 Divalproex [Depakote Sprinkle*] 250 mg PO BID 01/16/19 Duloxetine HCl [Cymbalta] 60 mg PO DAILY 01/16/19 Gabapentin [Neurontin*] 300 mg PO TID 01/16/19 Iloperidone [Fanapt] 8 mg PO BID 01/16/19 Magnesium Hydroxide [Milk of Magnesia] 150 mg PO DAILY PRN 01/16/19 Oxcarbazepine [Trileptal] 150 mg PO DAILY 01/16/19 Risperidone [Risperdal] 1 mg PO DAILY 01/16/19 Tiotropium [place] [Spiriva] 1 puff IH DAILY 01/16/19 Tramadol HCl [Ultram] 50 mg PO BEDTIME 01/16/19 Albuterol Neb [Proventil 0.083% Neb Soln] 2.5 mg NEB TID PRN #90 amp 01/18/19 Arformoterol Tartrate [Brovana] 15 mcg NEB BIDRESP #60 vial.neb 01/18/19 Benzonatate [Tessalon Perle] 100 mg PO TID PRN #30 cap 01/18/19 levoFLOXacin [Levaquin*] 500 mg PO DAILY #5 tab 01/18/19 predniSONE [Deltasone*] 10 mg PO SEECOM #15 tab 01/18/19 New Medications: Albuterol Neb [Proventil 0.083% Neb Soln] 2.5 mg NEB TID PRN #90 amp PRN Reason: Shortness Of Breath Arformoterol Tartrate [Brovana] 15 mcg NEB BIDRESP #60 vial.neb Benzonatate [Tessalon Perle] 100 mg PO TID PRN #30 cap PRN Reason: Cough levoFLOXacin [Levaquin*] 500 mg PO DAILY #5 tab predniSONE [Deltasone*] 10 mg PO SEECOM #15 tab Patient Discharge Instructions: 1. Patient to return to long-term. 2. Patient presented with shortness of breath secondary to acute on chronic respiratory failure with hypoxia and hypercapnia secondary to bilateral pneumonia complicated with COPD exacerbation. Patient did well in her stay. Patient was weaned off oxygen. Blood cultures negative. Patient seen and evaluated by pulmonology. At discharge patient will return to the long-term. At discharge she will continue with Levaquin 500 mg daily for 5 more days. Patient will be provided Tessalon Perles 100 mg 3 times a day as needed for cough. For her COPD, new medication includes Brovana 1 unit dose twice daily. She will continue with prednisone 10 mg 1 pill twice daily for 5 days then 1 pill once daily for 5 days. Patient will continue with Spiriva 1 puff daily and albuterol 1 unit dose 3 times a day as needed for shortness of breath. Patient may follow up with pulmonology in 1-2 weeks to follow up this hospitalization. Recommend to recheck lab-CBC in 1 week and chest x-ray in 2-4 weeks to monitor resolution. COPD education and education on pneumonia will be provided. Patient may continue with oxygen at the long-term to maintain sats above 90% if required. 3. Patient with HIV. Patient will continue with her HIV medication-Triumeq daily. 4. Patient with hyperlipidemia. Patient will continue with Lipitor 40 mg daily. 5. Patient with underlying schizophrenia. Patient will continue with her medications including Cogentin 1 mg 1 pill twice daily, Depakote 250 mg 1 pill twice daily, Cymbalta 60 mg 1 pill daily, Trileptal 150 mg daily, and Risperdal 1 mg 1 pill daily. Further adjustment in medication can be done by the long-term physician. 6. Patient with diabetes. Blood sugar remained stable. Patient will continue with diet controlled. Patient may require mild sliding scale in the long-term if required. 7. Patient with diabetic neuropathy. Patient may continue with Neurontin 300 mg 1 pill 3 times a day and tramadol 50 mg at night as needed. Diet: ADA Activity: Fall precautions Time spent managing pt's care (in minutes): 55
[2019-01-18 12:06] VITALS: BP 140/74; TEMP 98.6
[2019-01-18 12:54] VITALS: O2SAT 93
== END 2019-01-18 16:08 | DRG 190 ==
LOC: ER 01:59 → ERHOLD 05:20 → 3RD-ICU 08:07 → 2ND 01-17 14:25
PROVIDERS: ADMIT Internal Medicine; ATTEND Family Medicine
PROC: 5A09457 Assistance with Respiratory Ventilation, 24-96 Consecutive Hours, Continuous Positive Airway Pressure (ICD-10-PCS; principal; 2019-01-16)
DX: J44.0 Chronic obstructive pulmonary disease with (acute) lower respiratory infection (principal); J18.9 Pneumonia, unspecified organism; J96.21 Acute and chronic respiratory failure with hypoxia; J96.22 Acute and chronic respiratory failure with hypercapnia; G92 Toxic encephalopathy; J44.1 Chronic obstructive pulmonary disease with (acute) exacerbation; Z21 Asymptomatic human immunodeficiency virus [HIV] infection status; F20.9 Schizophrenia, unspecified; E78.5 Hyperlipidemia, unspecified; E11.40 Type 2 diabetes mellitus with diabetic neuropathy, unspecified; Z88.5 Allergy status to narcotic agent; Z88.0 Allergy status to penicillin; Z88.2 Allergy status to sulfonamides; F32.9 Major depressive disorder, single episode, unspecified; F41.9 Anxiety disorder, unspecified; K21.9 Gastro-esophageal reflux disease without esophagitis; Z87.891 Personal history of nicotine dependence
CPT/HCPCS: 36415; 70450; 71045; 71046; 80048; 80076; 82550; 82553; 82805; 82962; 83605; 83690; 83735; 83880; 84145; 84484; 85025; 85610; 85730; 87040; 87804; 93005; 94660; 94760; 96365; 96367; 97116; 97163; 97530; 99285; J0692; J1650; J2920; J3411; J3475; J7030; J7512; J7605

== ENCOUNTER 2019-03-08 21:32 | Observation (INO) | payer OTHER ==
--- OUTSIDE RECORDS SUMMARY | 2019-03-08 21:35 | XMS REPORT ---
:1960 Author Organization [employer] Care Team Providers Name Role Phone GuerreroTerrence Provider Role Unavailable Allergies, Adverse Reactions, Alerts Substance Reaction Event Type penicillin Info Not Available Drug Allergy codeine Info Not Available Drug Allergy Problems Problem Type Condition Code Onset Dates Condition Status Assessment Closed fracture of neck of S92.301D Active metatarsal bone of right foot with routine healing Problem Closed fracture of base of fifth S99.191A Active metatarsal bone of right foot at metaphyseal-diaphyseal junction, initial encounter Problem Pain, joint, foot, right M25.571 Active Problem Closed fracture of neck of S92.301D Active metatarsal bone of right foot with routine healing Assessment Closed fracture of base of fifth S99.191D Active metatarsal bone of right foot at metaphyseal-diaphyseal junction with routine healing, subsequent encounter Assessment Pain, joint, foot, right M25.571 Active Problem Closed fracture of neck of S92.301A Active metatarsal bone of right foot, initial encounter Medications Medication Code Code Instructions Start End Status Dosage System Date Lipitor [facility] 48989850510 40 MG Orally Active 1 tablet Once a day Gabapentin [facility] 32482106140 300 MG Orally Active 1 capsule Once a day Ultram [facility] 48425475633 50 MG Orally Active 1 tablet as every 6 hrs needed ProAir HFA [facility] 54605739564 108 (90 Base) Active 2 puffs as MCG/ACT needed Inhalation every 6 hrs Benztropine [facility] 77319703947 1 MG/ML Active 1 ml Mesylate Injection Once a day Vitamin D3 [facility] 10909344585 1000 UNIT Active 1 capsule Orally Once a day Depakote [facility] 09553261317 125 MG Orally Active as directed Sprinkles Trileptal [facility] 86477784172 150 MG Orally Active 2 tablets Twice a day Triumeq [facility] 13152495377 600-50-300 MG Active 1 tablet Orally Once a day Milk of [place] 03360940650 400 MG/5ML Active 5 ml as Magnesia Orally Four needed times a day Aspirin [facility] 15004310580 325 MG Orally Active 1 tablet Once a day Tramadol HCl [facility] 28374678747 50 MG Orally Active 1 tablet as every 6 hrs needed Butrans [facility] 93989021936 10 MCG/HR Active 1 patch to Transdermal skin Risperdal [facility] 49137430285 1 MG Orally Active 1 tablet Once a day Spiriva [facility] 25163128958 18 MCG Active 1 capsule HandiHaler Inhalation Once a day Lantus [facility] 38492623047 100 UNIT/ML Active as directed Subcutaneous Cymbalta [facility] 57592511912 60 MG Orally Active 1 capsule Once a day Fanapt [facility] 00697025047 8 MG Orally Active 1 tablet Twice a day Results No Known Results Summary Purpose [employer] Submission
--- OUTSIDE RECORDS SUMMARY | 2019-03-08 21:35 | XMS REPORT ---
:1960 Author Organization [facility] Address [address] [place] [address] Care Team Providers Name Role Phone Unavailable [...] 0.6-1.3 CALCIUM (test code=CA) 8.4 mg/dL 8.0-10.5 [facility] PHONE# [phone] or [phone] PHONE [phone], FAX# [phone]) [phone] W/AUTO [id number] 02:13:00 Test Item Value Reference Range Comments [...] 0.0-0.1 MANUAL DIFF REQUIRED (test code=MDIFF) NO [facility] PHONE# for [phone] or [phone] PHONE , FAX#
--- OUTSIDE RECORDS SUMMARY | 2019-03-08 21:35 | XMS REPORT ---
:1960 Author Organization [facility] Address [address] [place] [phone] Phone Allergies, Adverse Reactions, Alerts Allergy Name [...] Status Provider Patient Date Date Name Instruction ASPIRIN 325 1 By Mouth ASPIRIN 19818241584 Active Husam Active MG ORAL Every Day [place] TABLET BREO ELLIPTA 1 FLUTICASONE 52610169434 Active Husam Active 100-25 inhalation FUROATE-VILANT [place] MCG/INH Every Day TONO INHALATION AEROSOL POWDER BREATH ACTIVATED DEPAKOTE 250 2 by mouth DIVALPROEX 31008904988 Active Husam Active MG ORAL twice a day SODIUM [place] TABLET DELAYED RELEASE FANAPT 8 MG 1 Twice a ILOPERIDONE 50133060203 Active Husam Active ORAL TABLET Day [place] GABAPENTIN 1 by mouth GABAPENTIN 61190122854 Active Husam Active 300 MG ORAL three times [place] CAPSULE a day LANTUS 100 32 U sc INSULIN 21463338037 Active Husam Active UNIT/ML Every pm GLARGINE [place] SUBCUTANEOUS MD SOLUTION RISPERDAL 1 1 by mouth RISPERIDONE 23873352045 Active Husam Active MG ORAL once a day [place] TABLET TRAMADOL HCL 1 Three TRAMADOL HCL 45444035184 Active Husam Active 50 MG ORAL Times a Day [place] TABLET TRILEPTAL 150 1 Twice a OXCARBAZEPINE 82129471916 Active Husam Active MG ORAL Day [place] TABLET BENZTROPINE BENZTROPINE 63981641013 Active Remy Active MESYLATE MESYLATE TABS Perdomo TABLET DULOXETINE DULOXETINE HCL 07513041884 Active Remy Active HCL CAPSULE CPEP Perdomo DELAYED MD RELEASE PARTICLES LIPITOR ATORVASTATIN 69088301532 Active Remy Active TABLET CALCIUM TABS Perdomo PROAIR HFA 2 puffs ALBUTEROL 48953938420 Active Husam Active 108 (90 Base) every 4 - 6 SULFATE [place] MCG/ACT hours as MD INHALATION needed AEROSOL SOLUTION SPIRIVA Inhale 1 TIOTROPIUM 49708524235 Active Husam Active HANDIHALER 18 cap Every BROMIDE [place] MCG Day MONOHYDRATE MD INHALATION CAPSULE TRIUMEQ One tablet ABACAVIR-DOLUT 03050440796 Active Husam Active 600-50-300 MG daily with EGRAVIR-LAMIVU [place] ORAL TABLET or without D food MECLIZINE HCL 1 by mouth MECLIZINE 117402 MECLIZINE Inactive 25 MG ORAL 3 times a HCL 25 MG HCL TABLET day as ORAL TABLET needed for dizziness NICOTINE NICOTINE 737142 NICOTINE Inactive -7 14-7 MG/24HR MG/24HR TRANSDERMAL TRANSDERMAL KIT KIT NAPROXEN 500 1 by mouth NAPROXEN 500 834826 NAPROXEN Inactive MG ORAL twice a MG ORAL TABLET day as TABLET needed for pain OMEPRAZOLE OMEPRAZOLE OMEPRAZOLE Inactive CPDR CPDR CPDR SEROQUEL SEROQUEL QUETIAPINE Inactive TABLET TABLET FUMARATE TABS VENLAFAXINE VENLAFAXINE VENLAFAXINE Inactive HCL TABLET HCL TABLET HCL TABS MECLIZINE 1 by mouth MECLIZINE 55585403654 No Husam Active HCL 25 MG 3 times a HCL Longer [place] ORAL day as Active MD TABLET needed for dizziness NICOTINE NICOTINE 66341775275 No Husam Active 14-7 Longer [place] MG/24HR Active TRANSDERMA L KIT NAPROXEN 1 by mouth NAPROXEN 63368075335 No Husam Active 500 MG twice a Longer [place] ORAL day as Active MD TABLET needed for pain OMEPRAZOLE OMEPRAZOLE 30438418313 No Husam Active CPDR CPDR Longer [place] Active SEROANGEL LUISL QUETIAPINE 03573576682 No Husam Active TABLET FUMARATE Longer [place] TABS Active VENLAFAXIN VENLAFAXIN 66510158144 No Husam Active E HCL E HCL TABS Longer [place] TABLET Active Advance Directives Directive Description Start Date DISCUSSED [...] PEDIATRIC PNEUMOCOCCAL given elsewhere pneumococcal conjugate VACCINE ([id number]) #1 vaccine, 13 valent influenza immunization given elsewhere influenza virus vaccine, (Flu Vax) has been unspecified formulation administered Vital Signs Date Name Value Unit Range Description blood pressure, diastolic 80 mm[Hg] BP govea blood pressure, systolic 110 mm[Hg] BP sys height E&M 62 [in_us] Bdy height pulse rate E&M 126 /min Heart rate temperature E&M 98.6 [degF] Body temperature weight E&M 189.13 [lb_av] Weight Measured blood pressure, diastolic 73 mm[Hg] BP govea [...] Name Value Unit Range Description Lab Report: Lipid Panel - Chemistry very low density lipoproteins 38 mg/dL 5-40 Lab Report: CD4/CD8 Ratio Profile, Comp. Metabolic Panel (14), Lipid Wetzel ... - Chemistry hepatitis B surface antigen Negative Negative Lab Report: CD4/CD8 Ratio Profile, Comp. Metabolic Panel (14), RNA, Real ... - Chemistry chloride, serum 102 mmol/L 96-106 Lab Report: CD4/CD8 Ratio Profile, Comp. Metabolic Panel (14), Lipid Wetzel ... - Microbiology hepatitis A antibody, total Negative Negative Lab Report: CD4/CD8 Ratio Profile, Comp. Metabolic Panel (14), RNA, Real ... - Chemistry urea nitrogen, blood 7 mg/dL 6-24 Preload: Historical Preload - Hematology Quantiferon Gold TB blood test for tuberculosis screening negative Office Visit: Adult Followup TREATMENT ROOM 2 - Serology human leukocyte antigen B57 negative Lab Report: CD4/CD8 Ratio Profile, Comp. Metabolic Panel (14), RNA, Real ... - Hematology mean corpuscular hemoglobin 33.7 G/DL % 31.5-35.7 concentration, RBC erythrocyte (RBC) count 4.31 X10E6/UL 10*6/mm3 3.77-5.28 Lab Report: CD4/CD8 Ratio Profile, Comp. Metabolic Panel (14), Lipid Wetzel ... - Serology hepatitis C antibody, serum 0.3 0.0-0.9 Lab Report: CD4/CD8 Ratio Profile, Comp. Metabolic Panel (14), RNA, Real ... - Chemistry absolute CD8 343 491-676 7627/03/14 Absolute Neutrophils 6.1 X10E3/UL 10*3/uL 1.4-7.0 Lab Report: Lipid Panel - Chemistry LDL cholesterol, serum 45 mg/dL 0-99 Lab Report: CD4/CD8 Ratio Profile, Comp. Metabolic Panel (14), RNA, Real ... - Chemistry urea nitrogen/creatinine ratio, serum 11 9-23 Lab Report: CD4/CD8 Ratio Profile, Comp. Metabolic Panel (14), RNA, Real ... - Hematology mean corpuscular volume, RBC 101 fL 79-97 Lab Report: Lipid Panel - Chemistry HDL cholesterol, serum 36 mg/dL >39 Lab Report: CD4/CD8 Ratio Profile, Comp. Metabolic Panel (14), RNA, Real ... - Hematology monocytes as percent of blood leukocytes 8 % Not Estab. Lab Report: CD4/CD8 Ratio Profile, Comp. Metabolic Panel (14), RNA, Real ... - Chemistry creatinine, serum 0.64 mg/dL 0.57-1.00 albumin/globulin ratio, serum 1.5 1.2-2.2 Lab Report: Lipid Panel - Chemistry cholesterol, serum 119 mg/dL 100-199 Lab Report: CD4/CD8 Ratio Profile, Comp. Metabolic Panel (14), RNA, Real ... - Chemistry bilirubin, serum, total 0.2 mg/dL 0.0-1.2 Lab Report: CD4/CD8 Ratio Profile, Comp. Metabolic Panel (14), RNA, Real ... - Hematology Eosinophil Absolute Count 0.2 X10E3/UL 10*3/uL 0.0-0.4 Lab Report: Chlamydia/GC Amplification - Lab chlamydia DNA probe Negative Negative Lab Report: CD4/CD8 Ratio Profile, Comp. Metabolic Panel (14), RNA, Real ... - Chemistry aspartate aminotransferase (SGOT), serum 12 U/L 0-40 Lab Report: CD4/CD8 Ratio Profile, Comp. Metabolic Panel (14), RNA, Real ... - Hematology red blood cell distribution width 13.6 % 12.3-15.4 leukocyte count, blood 8.0 X10E3/UL 10*3/mm3 3.4-10.8 Lab Report: CD4/CD8 Ratio Profile, Comp. Metabolic Panel (14), RNA, Real ... - Chemistry potassium, serum 4.8 mmol/L 3.5-5.2 albumin, serum 4.0 g/dL 3.5-5.5 immature granulocytes, percentage of total cells, 0 % Not Estab. blood Office Visit: Adult Followup/H & P/RM # 2 - Hematology T-helper cells (CD4) count, lowest absolute value 150 Lab Report: CD4/CD8 Ratio Profile, Comp. Metabolic Panel (14), RNA, Real ... - Hematology lymphocyte count, blood, automated 1.2 X10E3/UL 10*3/mm3 0.7- 3.1 hematocrit, blood 43.3 % 34.0-46.6 Lab Report: Chlamydia/GC Amplification - Microbiology Neisseria gonorrhoeae DNA probe Negative Negative Lab Report: CD4/CD8 Ratio Profile, Comp. Metabolic Panel (14), RNA, Real ... - Chemistry sodium, serum 143 mmol/L 134-144 Lab Report: CD4/CD8 Ratio Profile, Comp. Metabolic Panel (14), Lipid Wetzel ... - Serology toxoplasma gondii antibody, IgG <3.0 0.0-5.9 Lab Report: CD4/CD8 Ratio Profile, Comp. Metabolic Panel (14), RNA, Real ... - Hematology neutrophils as percent of blood leukocytes 76 % Not Estab. basophils as percent of blood leukocytes 0 % Not Estab. Internal Correspondence: Pre-Visit Planning H& P Marco A 03/18/15 @ 10:00am LVM - Other List of providers caring for Elodia Cespedes MD, Husam Vital MD, patient Magdalena Segura MD, Rach Avina STONEWORK SUPERVISOR, Samuel Jeffery STONEWORK SUPERVISOR, Myke Coleman NP-C, Lexy Ward MA, Christiano James M.A. ,, Jo Valle MA, Zonia Romero MA, Marlee Prather MA, Kody Baires MA, Corey Encinas MA, Deidra Davison CTA, Tejal Stern CTA. Lab Report: CD4/CD8 Ratio Profile, Comp. Metabolic Panel (14), RNA, Real ... - Serology HIV-1RNA, serum, by PCR, <20 copies/mL {Copies}/mL quantitative rapid plasma reagin antibody, Non Reactive Non Reactive serum Lab Report: CD4/CD8 Ratio Profile, Comp. Metabolic Panel (14), RNA, Real ... - Chemistry CD4/CD8 ratio 1.08 0.92-3.72 carbon dioxide, venous blood 26 mmol/L 20-29 Lab Report: CD4/CD8 Ratio Profile, Comp. Metabolic Panel (14), Lipid Wetzel ... - Serology hepatitis B core antibody, total Negative Negative Lab Report: Lipid Panel - Chemistry triglyceride, serum, fasting 188 mg/dL 0-149 Lab Report: CD4/CD8 Ratio Profile, Comp. Metabolic Panel (14), RNA, Real ... - Chemistry calcium, serum 9.3 mg/dL 8.7-10.2 alanine aminotransferase (SGPT), serum 12 U/L 0-32 Lab Report: CD4/CD8 Ratio Profile, Comp. Metabolic Panel (14), RNA, Real ... - Hematology mean corpuscular hemoglobin, RBC 33.9 pg 26.6-33.0 Lab Report: CD4/CD8 Ratio Profile, Comp. Metabolic Panel (14), RNA, Real ... - Chemistry protein, total, serum 6.6 g/dL 6.0-8.5 alkaline phosphatase, serum 109 U/L 39-117 Lab Report: CD4/CD8 Ratio Profile, Comp. Metabolic Panel (14), RNA, Real ... - Hematology T-helper cells (CD4) as percent of blood 30.9 % 30.8-58.5 lymphocytes hemoglobin, blood 14.6 g/dL 11.1-15.9 T-suppressor cells (CD8) as percent of blood 28.6 % 12.0-35.5 lymphocytes lymphocytes as percent of blood leukocytes 14 % Not Estab. Lab Report: CD4/CD8 Ratio Profile, Comp. Metabolic Panel (14), RNA, Real ... - Genetics/fertility eGFR if 113 mL/min/1.73m2 >59 Lab Report: CD4/CD8 Ratio Profile, Comp. Metabolic Panel (14), RNA, Real ... - Hematology basophil count, absolute 0.0 x10E3/uL 0.0-0.2 Lab Report: CD4/CD8 Ratio Profile, Comp. Metabolic Panel (14), RNA, Real ... - Chemistry globulin, serum 2.6 1.5-4.5 Estimated Glomerular Filtration Rate (calc) 98 mL/min/1.73m2 > 59 Lab Report: CD4/CD8 Ratio Profile, Comp. Metabolic Panel (14), Lipid Wetzel ... - Chemistry vitamin D 25-hydroxy, serum 27.6 ng/mL 30.0-100.0 Lab Report: CD4/CD8 Ratio Profile, Comp. Metabolic Panel (14), Lipid Wetzel ... - Serology hepatitis B surface antibody Non Reactive Lab Report: CD4/CD8 Ratio Profile, Comp. Metabolic Panel (14), RNA, Real ... - Hematology eosinophils as percent of blood leukocytes 2 % Not Estab. Lab Report: CD4/CD8 Ratio Profile, Comp. Metabolic Panel (14), RNA, Real ... - Chemistry blood glucose, random 157 mg/dL 65-99 Lab Report: CD4/CD8 Ratio Profile, Comp. Metabolic Panel (14), RNA, Real ... - Hematology T-helper cells (CD4) count 371 /UL uL 359-1519 monocyte count, blood, automated 0.6 X10E3/UL 10*3/uL 0.1-0.9 platelet count 213 X10E3/UL 10*3/mm3 150-379 Encounters Date Encounter Provider Code Facility Ofc Vst, Est Level IV Husam Vital MD CPT-62860 [facility] 08:34:00 CDT Ofc Vst, Est Level IV Husam Vital MD CPT-97973 [facility] 08:19:52 CDT Ofc Vst, Est Level IV Husam Vital MD CPT-94548 [facility] 08:52:18 CDT Ofc Vst, Est Level IV Husam Vital MD CPT-60533 [facility] 09:44:49 EGG TESTER Ofc Vst, Est Level IV Husam Vital MD CPT-82539 [facility] 09:00:51 CDT Ofc Vst, Est Level IV Husam Vital MD CPT-32427 [facility] 08:21:03 CDT Ofc Vst, Est Level IV Husam Vital MD CPT-67968 [facility] 11:00:32 CDT Ofc Vst, Est Level IV Husam Vital MD CPT-41418 [facility] 09:03:16 EGG TESTER Ofc Vst, Est Level IV Husam Vital MD CPT-37819 [facility] 08:55:36 CDT Ofc Vst, Est Level III Husam Vital MD CPT-68455 [facility] 15:31:26 CDT Est Patient Detailed - Remy Perdomo MD CPT-76684 [facility] 09:51:50 CDT 21324 Ofc Vst, Est Level III Husam Vital MD CPT-76319 [facility] 10:35:49 CDT Ofc Vst, New Level IV Husam Vital MD CPT-73819 [facility] 11:09:09 CDT Procedures Code Procedure Name Date Entry Date Standard Description CPT-32853 Hepatitis B - Adult 10:55:33 CDT CPT-86535 Hepatitis B - Adult 08:58:24 EGG TESTER CPT-95117 Hepatitis B - Adult 08:51:40 CDT CPT-26914 Pneumovax Vaccine PPSV23 08:51:40 CDT CPT-76353 Handling of specimen for transfer 09:52:50 CDT CPT-19608 Venipuncture 09:52:50 CDT
[2019-03-08 23:30] LABS: Absolute Lymphocytes (CBC) 1.7 K/uL (0.7-4.9); Absolute Monocytes 0.7 K/uL (0.1-1.3); Absolute Neutrophil 3.6 K/uL (1.8-8.0); Basophils % 0.8 % (0-1.3); Eosinophils % 3.7 % (0-4.4); Hematocrit 39.8 % (36.0-45.0); Lymphocytes % 27.7 % (15.3-44.8); MPV 8.6 fL (7.6-11.3); Monocytes % 11.2 % (3.3-12.3); Protime INR 0.87; RBC Red Blood Cell Count 3.84 M/uL (3.86-4.86)
[2019-03-08 23:47] LABS: ALT/SGPT 11 U/L (12-78); Albumin 2.9 g/dL (3.4-5.0); Alkaline Phosphatase 84 U/L (45-117); BUN Blood Urea Nitrogen 11 mg/dL (7-18); Bicarbonate 33 mmol/L (21-32); Bilirubin Direct < 0.1 mg/dL (0-0.2); Bilirubin Total 0.2 mg/dL (0.2-1.0); Glucose Level 142 mg/dL (74-106); Magnesium 1.9 mg/dL (1.8-2.4); NT PRO-BNP 35 pg/mL (<125); Potassium 3.8 mmol/L (3.5-5.1); Protein, Total 6.6 g/dL (6.4-8.2); Sodium Level 141 mmol/L (136-145); Troponin (Emerg Dept Use Only) < 0.02 ng/mL (0.0-0.045)
[2019-03-08 23:49] LABS: AST/SGOT < 3 U/L (15-37)
--- NOTE | 2019-03-09 00:42 | EDPHYS ---
Physician Documentation [facility] Name: Lucia Arias Age: 58 yrs Sex: Female : 1960 Arrival Date: 03/08/2019 Time: 21:35 Bed 13 Private MD: ED Physician Alexis Morales HPI: 03/09 00:27 This 58 yrs old Female presents to ER via EMS with complaints of Chest Pain. tw4 00:27 The patient or guardian reports chest pain that is located primarily in the anterior tw4 chest wall. Onset: today. The pain does not radiate. Associated signs and symptoms: The patient has no apparent associated signs or symptoms. The chest pain is described as dull. Duration: The patient or guardian reports a single episode, that is still ongoing. Modifying factors: The symptoms are alleviated by nothing. the symptoms are aggravated by nothing. Historical: - Allergies: 03/08 21:30 Codeine; jb4 21:30 Demerol; jb4 21:30 PENICILLINS; jb4 21:30 Sulfa (Sulfonamide Antibiotics); jb4 - Home Meds: 21:30 Cymbalta 60 mg Oral cpDR 1 cap once daily [Active]; aspirin 325 mg Oral tab 1 tab once jb4 daily [Active]; Depakote Sprinkles 125 mg Oral cpSP 2 caps every 12 hours [Active]; benztropine 1 mg Oral tab 1 tab 2 times per day [Active]; gabapentin 300 mg Oral cap 1 cap 3 times per day [Active]; Fanapt 8 mg Oral tab 1 tab 2 times per day [Active]; Lantus 100 unit/mL Sub-Q soln 32 unit nightly [Active]; Milk of Magnesia 400 mg/5 mL Oral susp 30 mL daily prn [Active]; Lipitor 40 mg Oral tab 1 tab nightly [Active]; Spiriva with HandiHaler 18 mcg inhalation CpDv 1 cap once daily [Active]; ProAir HFA 90 mcg/actuation inhalation HFAA 2 puffs q6h prn [Active]; tramadol 50 mg Oral tab 1 tab three times a day [Active]; Risperdal 1 mg Oral tab 1 tab once daily [Active]; Trileptal 150 mg Oral tab 1 tabs 2 times per day [Active]; Triumeq 600-50-300 mg Oral tab 1 tab once daily [Active]; Vitamin D Oral 2000 unit daily [Active]; - PMHx: 21:30 Anxiety; GERD; Hyperlipidemia; Difficulty walking; Bipolar disorder; CAD; COPD; jb4 Cellulitis; LACK OF COORDINATION; HIV; pulmonary edema; Depression; Chronic pain; Schizophrenia; neuropathy; Diabetes - IDDM; UTI; - Immunization history:: Adult Immunizations up to date. - Social history:: Smoking status: Patient uses tobacco products, "A few a day", Patient/guardian denies using alcohol. - Ebola Screening: : No symptoms or risks identified at this time. ROS: 03/09 00:27 Constitutional: Negative for fever, chills, and weight loss, Eyes: Negative for injury, tw4 pain, redness, and discharge, Cardiovascular: Negative for chest pain, palpitations, and edema, Respiratory: Negative for shortness of breath, cough, wheezing, and pleuritic chest pain, Abdomen/GI: Negative for abdominal pain, nausea, vomiting, diarrhea, and constipation, Back: Negative for injury and pain, MS/Extremity: Negative for injury and deformity, Skin: Negative for injury, rash, and discoloration. Exam: 00:25 Constitutional: This is a well developed, well nourished patient who is awake, alert, tw4 and in no acute distress. Head/Face: Normocephalic, atraumatic. Chest/axilla: Normal chest wall appearance and motion. Nontender with no deformity. No lesions are appreciated. Cardiovascular: Regular rate and rhythm with a normal S1 and S2. No gallops, murmurs, or rubs. Normal PMI, no JVD. No pulse deficits. Respiratory: Lungs have equal breath sounds bilaterally, clear to auscultation and percussion. No rales, rhonchi or wheezes noted. No increased work of breathing, no retractions or nasal flaring. Abdomen/GI: Soft, non-tender, with normal bowel sounds. No distension or tympany. No guarding or rebound. No evidence of tenderness throughout. MS/ Extremity: Pulses equal, no cyanosis. Neurovascular intact. Full, normal range of motion. Neuro: Awake and alert, GCS 15, oriented to person, place, time, and situation. Cranial nerves II-XII grossly intact. Motor strength 5/5 in all extremities. Sensory grossly intact. Cerebellar exam normal. Normal gait. 00:25 Back: No spinal tenderness. No costovertebral tenderness. Full range of motion. 00:25 ECG was reviewed by the Attending Physician. Vital Signs: 03/08 21:30 BP 116 / 69; Pulse 98; Resp 16; Temp 98.2(O); Pulse Ox 90% on R/A; Weight 89.81 kg (R); jb4 Height 5 ft. 5 in. (165.10 cm) (R); Pain 0/10; 21:36 Pulse Ox 92% on 2 lpm NC; jb4 22:30 BP 97 / 64; Pulse 89; Resp 15; Pulse Ox 94% on 2 lpm NC; jb4 23:30 BP 101 / 66; Pulse 88; Resp 16; Pulse Ox 96% on R/A; 4 03/09 00:45 BP 96 / 60; Pulse 86; Resp 16; Pulse Ox 94% on 2 lpm NC; jb4 01:45 BP 82 / 65; Pulse 84; Resp 16; Pulse Ox 96% on 2 lpm NC; jb4 02:30 BP 101 / 59; Pulse 83; Resp 18; Pulse Ox 96% on 2 lpm NC; jb4 02:54 BP 86 / 56; Pulse 84; Resp 16; Pulse Ox 92% on 1 lpm NC; jb4 03:15 BP 102 / 62; Pulse 82; Resp 16; Pulse Ox 94% on 1 lpm NC; jb4 03/08 21:30 Body Mass Index 32.95 (89.81 kg, 165.10 cm) 4 03/08 21:30 Placed on 2l NC [facility] 03/09 02:54 Dr. Langston notified. 250ml bolus administered per Dr. Langston. [facility] MDM: 03/08 21:52 Patient medically screened. tw4 03/09 00:42 Differential diagnosis: pulmonary embolus, stable angina. Data reviewed: vital signs, tw4 nurses notes. Data interpreted: quality assurance monitor final: rhythm is normal sinus rhythm, Pulse oximetry: Interpretation: normal. Counseling: I had a detailed discussion with the patient and/or guardian regarding: the historical points, exam findings, and any diagnostic results supporting the discharge/admit diagnosis. Special discussion: I discussed with the patient/guardian in detail that at this point there is no indication for admission to the hospital. It is understood, however, that if the symptoms persist or worsen the patient needs to return immediately for re-evaluation. 03/08 23:00 Order name: Basic Metabolic Panel; Complete Time: 00:13 [facility] 03/09 00:13 Interpretation: Normal except: CO2 33; GLUC 142; GFR 78. 03/08 23:00 Order name: CBC with Diff; Complete Time: 00:13 03/09 00:13 Interpretation: Normal except: RBC 3.84; MCV 103.6; MCH 35.2. 03/08 23:00 Order name: LFT's; Complete Time: 00:13 03/09 00:13 Interpretation: Normal except: AST < 3; ALT 11; GLOB 3.7; ALB 2.9; A/G 0.8. [facility] 03/08 23:00 Order name: Magnesium; Complete Time: 00:14 [facility] 03/09 00:14 Interpretation: Within normal limits: MG 1.9. [facility] 03/08 23:00 Order name: NT PRO-BNP; Complete Time: 00:14 [facility] 03/09 00:14 Interpretation: Within normal limits: NT PRO-BNP 35. [facility] 03/08 23:00 Order name: PT-INR; Complete Time: 00:14 [facility] 03/09 00:14 Interpretation: Within normal limits: PT 10.3. [facility] 03/08 23:00 Order name: Troponin (emerg Dept Use Only); Complete Time: 00:14 [facility] 03/09 00:14 Interpretation: Within normal limits: TROPED < 0.02. [facility] 03/08 23:00 Order name: XRAY Chest (1 view) [facility] 03/09 01:25 Order name: Echo with Doppler [facility] 03/09 01:25 Order name: Lipid Profile [facility] 03/09 01:25 Order name: Lipid Profile [facility] 03/09 01:25 Order name: Troponin I [facility] 03/09 01:25 Order name: Troponin I [facility] 03/09 01:25 Order name: Troponin I [facility] 03/08 23:00 Order name: EKG; Complete Time: 23:01 [facility] 03/08 23:00 Order name: Cardiac monitoring; Complete Time: 23:01 [facility] 03/08 23:00 Order name: EKG - Nurse/Tech; Complete Time: 23:01 03/08 23:00 Order name: IV Saline Lock; Complete Time: :03/08 23:00 Order name: Labs collected and sent; Complete Time: :03/08 23:00 Order name: O2 Per Protocol; Complete Time: 23:03/08 23:00 Order name: O2 Sat Monitoring; Complete Time: 23:03/09 01:25 Order name: CONS Physician Consult [facility] 03/09 01:25 Order name: Heart Healthy [facility] EC: Rate is 95 beats/min. Rhythm is regular. QRS Grandin is Normal. GA interval is normal. QRS tw4 interval is normal. QT interval is normal. No Q waves. T waves are Normal. No ST changes noted. Clinical impression: NSR w/ Non-specific ST/T Changes. Interpreted by me. Reviewed by me. Administered Medications: No medications were administered Disposition: 03/09/19 00:41 Hospitalization ordered by Nida Langston for Observation. Preliminary diagnosis is Chest pain, unspecified. - Bed requested for Telemetry/MedSurg (observation). - Status is Observation. jb4 - Condition is Stable. - Problem is new. - Symptoms have improved. UTI on Admission? No Signatures: Dispatcher [employer] [facility] Gail Duarte ms, James, RN RN jb4 Alexis Morales MD MD tw4 Corrections: (The following items were deleted from the chart) 01:30 00:41 Hospitalization Ordered by Nida Langston MD for Observation. Preliminary ms diagnosis is Chest pain, unspecified. Bed requested for Telemetry/MedSurg (observation). Status is Observation. Condition is Stable. Problem is new. Symptoms have improved. UTI on Admission? No. tw4 04:22 01:30 03/09/2019 00:41 Hospitalization Ordered by Nida Langston MD for Observation. jb4 Preliminary diagnosis is Chest pain, unspecified. Bed requested for Telemetry/MedSurg (observation). Status is Observation. Condition is Stable. Problem is new. Symptoms have improved. UTI on Admission? No. ms
--- NOTE | 2019-03-09 00:42 | ER ---
Nurse's Notes [facility] Name: Lucia Arias Age: 58 yrs Sex: Female : 1960 Arrival Date: 03/08/2019 Time: 21:35 Bed 13 Private MD: Diagnosis: Chest pain, unspecified Presentation: 03/08 21:30 Presenting complaint: EMS states: Pt reports having a seizure and then having chest and jb4 left arm pain. currently denies all pain. 21:30 Method Of Arrival: EMS: [facility] jb4 21:30 Transition of care: patient was received from another setting of care (long-term care [facility] facility), [facility]. Onset of symptoms was March 08, 2019. Risk Assessment: Do you want to hurt yourself or someone else? Patient reports no desire to harm self or others. Initial Sepsis Screen: Does the patient meet any 2 criteria? HR > 90 bpm. Yes Does the patient have a suspected source of infection? No. Patient's initial sepsis screen is negative. Care prior to arrival: Glucose check: 159. 21:30 Acuity: LATONYA 3 jb4 Historical: - Allergies: 21:30 Codeine; jb4 21:30 Demerol; jb4 21:30 PENICILLINS; jb4 21:30 Sulfa (Sulfonamide Antibiotics); jb4 - Home Meds: 21:30 Cymbalta 60 mg Oral cpDR 1 cap once daily [Active]; aspirin 325 mg Oral tab 1 tab once jb4 daily [Active]; Depakote Sprinkles 125 mg Oral cpSP 2 caps every 12 hours [Active]; benztropine 1 mg Oral tab 1 tab 2 times per day [Active]; gabapentin 300 mg Oral cap 1 cap 3 times per day [Active]; Fanapt 8 mg Oral tab 1 tab 2 times per day [Active]; Lantus 100 unit/mL Sub-Q soln 32 unit nightly [Active]; Milk of Magnesia 400 mg/5 mL Oral susp 30 mL daily prn [Active]; Lipitor 40 mg Oral tab 1 tab nightly [Active]; Spiriva with HandiHaler 18 mcg inhalation CpDv 1 cap once daily [Active]; ProAir HFA 90 mcg/actuation inhalation HFAA 2 puffs q6h prn [Active]; tramadol 50 mg Oral tab 1 tab three times a day [Active]; Risperdal 1 mg Oral tab 1 tab once daily [Active]; Trileptal 150 mg Oral tab 1 tabs 2 times per day [Active]; Triumeq 600-50-300 mg Oral tab 1 tab once daily [Active]; Vitamin D Oral 2000 unit daily [Active]; - PMHx: 21:30 Anxiety; GERD; Hyperlipidemia; Difficulty walking; Bipolar disorder; CAD; COPD; jb4 Cellulitis; LACK OF COORDINATION; HIV; pulmonary edema; Depression; Chronic pain; Schizophrenia; neuropathy; Diabetes - IDDM; UTI; - Immunization history:: Adult Immunizations up to date. - Social history:: Smoking status: Patient uses tobacco products, "A few a day", Patient/guardian denies using alcohol. - Ebola Screening: : No symptoms or risks identified at this time. Screenin:30 Abuse screen: Denies threats or abuse. Nutritional screening: No deficits noted. jb4 Tuberculosis screening: No symptoms or risk factors identified. Fall Risk None identified. Assessment: 21:30 General: Appears in no apparent distress. comfortable, Behavior is calm, cooperative, jb4 appropriate for age. Pain: Complains of pain in chest Pain radiates to left arm Pain currently is 0 out of 10 on a pain scale. Quality of pain is described as stabbing, Pain began Earlier today. Neuro: Level of Consciousness is awake, alert, obeys commands, Oriented to person, place, time, situation. Cardiovascular: Patient's skin is warm and dry. Rhythm is sinus rhythm. Respiratory: Airway is patent Respiratory effort is even, unlabored, Respiratory pattern is regular, symmetrical. GI: : No signs and/or symptoms were reported regarding the genitourinary system. EENT: No signs and/or symptoms were reported regarding the EENT system. Derm: Skin is intact, Skin is pink, warm \\T\\ dry. Musculoskeletal: Circulation, motion, and sensation intact. 22:51 Reassessment: Patient appears in no apparent distress at this time. Patient and/or jb4 family updated on plan of care and expected duration. Pain level reassessed. Pt is resting in bed with eyes closed respirations even and unlabored. reports pain at 2/10. 23:49 Reassessment: Patient appears in no apparent distress at this time. No changes from jb4 previously documented assessment. Patient and/or family updated on plan of care and expected duration. Pain level reassessed. 03/09 00:00 Reassessment: Patient appears in no apparent distress at this time. No changes from jb4 previously documented assessment. Patient and/or family updated on plan of care and expected duration. Pain level reassessed. 01:00 Reassessment: Patient appears in no apparent distress at this time. No changes from jb4 previously documented assessment. Patient and/or family updated on plan of care and expected duration. Pain level reassessed. 01:45 Reassessment: Respirations even and unlabored. Admitting physician at the bedside. jb4 verbal order received for 250ml bolus of NS IV, and IVP 50mg of Hydrocortisone. General:. General: Appears in no apparent distress. Neuro: Level of Consciousness is lethargic. 02:30 Reassessment: Patient appears in no apparent distress at this time. No changes from jb4 previously documented assessment. Patient and/or family updated on plan of care and expected duration. Pain level reassessed. 03:18 Reassessment: pt can be woken more easily with verbal stimuli. blood pressure has jb4 increased to 102/62. pt being transported to room 409 via stretcher with nurse. Pt awake and alert. Oriented x4. Vital Signs: 03/08 21:30 BP 116 / 69; Pulse 98; Resp 16; Temp 98.2(O); Pulse Ox 90% on R/A; Weight 89.81 kg (R); jb4 Height 5 ft. 5 in. (165.10 cm) (R); Pain 0/10; 21:36 Pulse Ox 92% on 2 lpm NC; jb4 22:30 BP 97 / 64; Pulse 89; Resp 15; Pulse Ox 94% on 2 lpm NC; jb4 23:30 BP 101 / 66; Pulse 88; Resp 16; Pulse Ox 96% on R/A; jb4 03/09 00:45 BP 96 / 60; Pulse 86; Resp 16; Pulse Ox 94% on 2 lpm NC; jb4 01:45 BP 82 / 65; Pulse 84; Resp 16; Pulse Ox 96% on 2 lpm NC; jb4 02:30 BP 101 / 59; Pulse 83; Resp 18; Pulse Ox 96% on 2 lpm NC; jb4 02:54 BP 86 / 56; Pulse 84; Resp 16; Pulse Ox 92% on 1 lpm NC; jb4 03:15 BP 102 / 62; Pulse 82; Resp 16; Pulse Ox 94% on 1 lpm NC; jb4 03/08 21:30 Body Mass Index 32.95 (89.81 kg, 165.10 cm) jb4 03/08 21:30 Placed on 2l NC 4 03/09 02:54 Dr. Langston notified. 250ml bolus administered per Dr. Langston. jb4 ED Course: 03/08 21:30 Patient has correct armband on for positive identification. Placed in gown. Bed in low jb4 position. Call light in reach. Side rails up X2. security monitor on. Pulse ox on. NIBP on. 21:30 Arm band placed on right wrist. EKG completed in triage. Results shown to MD. jb4 21:30 Oxygen administration via nasal cannula \\T\\ 2L/min. jb4 21:30 EKG done, by ED staff, reviewed by Alexis Morales MD. jb4 21:35 Patient arrived in ED. 21:38 Beau Card, RN is Primary Nurse. jb4 21:40 Triage completed. jb4 21:52 Alexis Morales MD is Attending Physician. tw4 23:10 Initial lab(s) drawn, by al, sent to lab. Inserted saline lock: 20 gauge in right jb4 antecubital area, using aseptic technique. Blood collected. 23:54 XRAY Chest (1 view) In Process Unspecified. EDCO 03/09 00:40 Nida Langston MD is Hospitalizing Provider. tw4 03:15 No provider procedures requiring assistance completed. Patient admitted, IV remains in jb4 place. Administered Medications: No medications were administered Outcome: 00:41 Decision to Hospitalize by Provider. tw4 03:20 Admitted to Tele accompanied by nurse, via stretcher, with oxygen, with chart, Report jb4 called to Naima MAK 03:20 Condition: stable 03:20 Discharge instructions given to patient, Instructed on the need for admit, Demonstrated understanding of instructions. 04:22 Patient left the ED. 4 Signatures: Dispatcher [employer] EDCO Martha Israel RN RN Beau Card RN RN [facility] Alexis Morales MD MD tw4 Corrections: (The following items were deleted from the chart) 04/11 22:45 21:52 BP 116 / 69; Pulse 98bpm; Resp 16bpm; Pulse Ox 90% RA; 89.81 kg Reported; Height jb4 5 ft. 5 in. Reported; BMI: 32.9; Pain 0/10; jb4 :51 21:30 Pain: Denies pain. jb4 jb4 22:30 Reassessment: Patient appears in no apparent distress at this time. Patient jb4 and/or family updated on plan of care and expected duration. Pain level reassessed. Pt is resting in bed with eyes closed respirations even and unlabored. jb4
[2019-03-09] MEDS ORDERED: ALPRAZOLAM 0.25 MG TABLET PO PRN (01:21)
[2019-03-09] MEDS ORDERED: ACETAMINOPHEN 500 MG TAB PO PRN (01:21)
[2019-03-09] MEDS ORDERED: MORPHINE 4 MG/ML SYR IV PRN (01:21)
[2019-03-09] MEDS ORDERED: METHYLPREDNISOLONE 125 MG INJ IV ONE (01:33)
[2019-03-09] MEDS ORDERED: HYDROCORTISONE SUC 100 MG INJ ONE (01:52)
[2019-03-09] MEDS ORDERED: NA CHLORIDE 0.9% 1,000 ML ONE (01:52)
[2019-03-09] MEDS: NA CHLORIDE 0.9% 1,000 ML IV SCH ×3 (02:00→15:20)
[2019-03-09] MEDS ORDERED: HYDROCORTISONE SUC 100 MG INJ IV ONE (03:49)
[2019-03-09] MEDS ORDERED: NA CHLORIDE 0.9% 500 ML IV ONE (03:50)
[2019-03-09 04:52] VITALS: BMI 31.6
[2019-03-09 05:59] LABS: HDL Cholesterol 38 mg/dL (40-60); LDL Cholesterol, Calculated 36 (<130); Troponin I < 0.02 ng/mL (0.0-0.045)
[2019-03-09] MEDS: METHYLPREDNISOLONE 125 MG INJ IV SCH ×3 (06:00→17:43)
--- NOTE | 2019-03-09 07:44 | EKG ---
Test Date: 2019-03-08 Test Time: 21:43:09 Human Resources Talent Manager: MARISELA MEASUREMENT RESULTS: Intervals: Rate: 95 ID: [id number] QRSD: 82 QT: 356 QTc: 447 Ponce: P: 2 ID: [id number] QRS: -42 T: 16 INTERPRETIVE STATEMENTS: Normal sinus rhythm Left axis deviation Pulmonary disease pattern Abnormal ECG Compared to ECG 01/16/2019 02:44:19 Left-axis deviation now present Sinus tachycardia no longer present Left anterior fascicular block no longer present Electronically Signed On 03-09-19 07:42:33 CDT by Abdon Maguire
--- NOTE | 2019-03-09 08:14 | P.HP ---
Certification for Inpatient Patient admitted to: Observation With expected LOS: <2 Midnights Patient will require the following post-hospital care: None Practitioner: I am a practitioner with admitting privileges, knowledge of patient current condition, hospital course, and medical plan of care. Services: Services provided to patient in accordance with Admission requirements found in Title 42 Section 412.3 of the Code of Federal Regulations Patient History Date of Service: 03/09/19 Reason for admission: Chest pain rule out acute coronary syndrome History of Present Illness: Patient is a 58-year-old female came to the hospital with chest discomfort. Pain was mainly in the sternal region. There was no radiation. Patient states the pain was dull. I want to see her blood pressure was low and she was pretty lethargic. She wake up putting go back to sleep. We give her some fluids in the emergency room and her blood pressure is improved. She is more alert and interacting more at this time. She states that she has not really had any more chest pain. Will go ahead and admit her to the hospital. She will be admitted to the hospital to be ruled out for acute coronary syndrome. Allergies codeine Allergy (Intermediate, Verified 08/27/15 00:23) Unknown Penicillins Allergy (Intermediate, Verified 08/27/15 00:23) Unknown Home Medications: Abacavir/Dolutegravir/Lamivudi [Triumeq 600-50-300 mg Tablet] 1 tab PO DAILY Albuterol Sulfate [Proair Hfa] 2 puff IH Q6H PRN 01/16/19 Aspirin [Aspirin EC 325 MG] 325 mg PO DAILY 01/16/19 Atorvastatin Calcium [Lipitor] 40 mg PO BEDTIME 01/16/19 Benztropine Mesylate [Cogentin] 1 mg PO BID 01/16/19 Cholecalciferol (Vitamin D3) [Vitamin D3] 2,000 unit PO DAILY 01/16/19 Divalproex [Depakote Sprinkle*] 250 mg PO BID 01/16/19 Duloxetine HCl [Cymbalta] 60 mg PO DAILY 01/16/19 Magnesium Hydroxide [Milk of Magnesia] 30 mg PO DAILY PRN 01/16/19 Oxcarbazepine [Trileptal] 150 mg PO BID 01/16/19 Risperidone [Risperdal] 1 mg PO DAILY 01/16/19 Tiotropium [place] [Spiriva] 1 puff IH DAILY 01/16/19 Tramadol HCl [Ultram] 50 mg PO TID 01/16/19 Albuterol Neb [Proventil 0.083% Neb Soln] 2.5 mg NEB TID PRN #90 amp 01/18/19 Benzonatate [Tessalon Perle] 100 mg PO TID PRN #30 cap 01/18/19 Albuterol Sulfate [Albuterol Sulfate 0.083% Neb Soln] 1 vial IN TID PRN Arformoterol Tartrate [Brovana] 15 mcg NEB BID 03/09/19 Fluticasone/Vilanterol [Breo Ellipta 100-25 Mcg INH] 1 puff IN DAILY 03/09/19 Gabapentin 300 mg PO DAILY 03/09/19 Guaif/Dm [Robitussin Dm*] 5 ml PO BID 03/09/19 Guaifenesin [Cough Syrup] 10 ml PO PRN PRN 03/09/19 Insulin Glargine,Hum.rec.anlog [Lantus] 32 units SQ BEDTIME 03/09/19 Ipratropium/Albuterol Sulfate [Iprat-Albut 0.5-3(2.5) mg/3 ml] 1 puff IN PRN PRN 03/09/19 Loratadine [Claritin*] 10 mg PO DAILY 03/09/19 Minocycline HCl [Minocin] 50 mg PO BID 03/09/19 Perforomist 1 inh IH BID 03/09/19 Tramadol HCl [Ultram] 50 mg PO PRN PRN 03/09/19 - Past Medical/Surgical History Has patient received pneumonia vaccine in the past: Yes Diabetic: No -: Bipolar disorder -: Schizophrenia -: HIV -: COPD -: Depression -: HLD -: chronic pain -: heart disease -: anxiety -: hysterectomy -: appendectomy - Family History Father Medical History: Lung disease, Diabetes, Cancer Notes: lung cancer Mother Medical History: Lung disease, Cancer Notes: lung cancer - Social History Smoking Status: Current every day smoker Alcohol use: No CD- Drugs: No Caffeine use: Yes Place of Residence: [facility] Review of Systems 10-point ROS is otherwise unremarkable Physical Examination - Vital Signs Temperature: 98 F Blood Pressure: 110/59 Pulse: 91 Respirations: 20 Pulse Ox (%): 91 - Physical Exam General: Alert, In no apparent distress, Oriented x1 HEENT: Atraumatic, PERRLA, Mucous membr. moist/pink, EOMI, Sclerae nonicteric Neck: Supple, 2+ carotid pulse no bruit, No LAD, Without JVD or thyroid abnormality Respiratory: Clear to auscultation bilaterally, Normal air movement Cardiovascular: Regular rate/rhythm, Normal S1 S2, No murmurs Gastrointestinal: Normal bowel sounds, Soft and benign, Non-distended, No tenderness Musculoskeletal: No clubbing, No swelling, No tenderness Integumentary: No rashes Neurological: Normal speech, Normal tone, Sensation intact, Cranial nerves 3-12 intact, Normal affect, Abnormal gait, Abnormal strength Lymphatics: No axilla or inguinal lymphadenopathy - Studies Laboratory Data (last 24 hrs) 03/08/19 23:10: PT 10.3, INR 0.87 03/08/19 23:10: WBC 6.3, Hgb 13.5, Hct 39.8, Plt Count 203 03/08/19 23:10: Sodium 141, Potassium 3.8, BUN 11, Creatinine 0.76, Glucose 142 H, Magnesium 1.9, Total Bilirubin 0.2, AST < 3 L, ALT 11 L, Alkaline Phosphatase 84 Assessment & Plan - Problems (Diagnosis) (1) Altered mental status Onset Date: 05/03/17 Current Visit: No Status: Acute (2) Chest pain, rule out acute myocardial infarction Onset Date: 09/07/18 Current Visit: No Status: Acute (3) Hypotension Onset Date: 06/13/15 Current Visit: No Status: Acute (4) Schizophrenia Onset Date: 08/30/18 Current Visit: No Status: Acute Qualifiers: (5) Diabetes mellitus Onset Date: 08/30/18 Current Visit: No Status: Chronic Qualifiers: (6) HIV (human immunodeficiency virus infection) Onset Date: 07/09/15 Current Visit: No Status: Chronic Qualifiers: (7) Hyperlipidemia Onset Date: 08/30/18 Current Visit: No Status: Chronic Qualifiers: - Plan 1. Serial troponins and EKG 2. Echocardiogram 3. Anti-platelet therapy, beta-bernardino, statin, and O2 as needed 4. Anti-inflammatory for pain 5. Repeat labs in the morning 6. Continue to hydrate 7. Anticipate discharge home in the next 24-48 hr as long as she improves with her blood pressure. Discharge Plan: Home Plan to discharge in: 24 Hours - Advance Directives Does patient have a Living Will: No Does patient have a Durable POA for Healthcare: No - Code Status/Comfort Care Code Status Assessed: Yes Code Status: Full Code Critical Care: No Time Spent Managing PTS Care (In Minutes): 45
--- NOTE | 2019-03-09 08:24 | RAD REPORT ---
EXAM DESCRIPTION: RAD - Chest Single View - 03/08/2019 11:53 pm CLINICAL HISTORY: Chest pain COMPARISON: January 17 TECHNIQUE: AP portable chest image was obtained 2328 hours . FINDINGS: Lung volumes are low accentuating are a prominent baseline interstitial pattern. No focal mass or consolidations seen. Early interstitial edema or infiltrate could be masked by the chronic pa ttern. Heart and vasculature are normal. No measurable pleural effusion and no pneumothorax. No acute bony abnormality seen. No acute aortic findings suspected. IMPRESSION: Chronic interstitial lung disease is present not substantially different from comparison . Early interstitial infiltrate or edema can be masked by the chronic pattern.
[2019-03-09] MEDS: ENOXAPARIN 40 MG/0.4 ML SQ SCH (09:25)
[2019-03-09] MEDS: METOPROLOL TAR 50 MG TAB PO SCH ×2 (09:27→22:01)
[2019-03-09] MEDS: ASPIRIN EC 81 MG TAB PO SCH (09:27)
[2019-03-09 17:39] LABS: Urine Appearance CLEAR; Urine Bilirubin NEGATIVE (NEG); Urine Blood TRACE (NEG); Urine Color YELLOW; Urine Glucose NEGATIVE (NEG); Urine Protein NEGATIVE (NEG); Urine Specific Gravity <=1.005 (1.005-1.030); Urine Urobilinogen 0.2 mg/dL (0.2-1.0)
[2019-03-09 17:55] LABS: Urine Bacteria <20 /HPF (<20); Urine Culture Reflex Order REFLEXED; Urine Mucus 2+ /HPF (NONE SEEN)
[2019-03-10] MEDS: METHYLPREDNISOLONE 125 MG INJ IV SCH ×4 (00:43→17:13)
[2019-03-10] MEDS: ENOXAPARIN 40 MG/0.4 ML SQ SCH (08:15)
[2019-03-10] MEDS: METOPROLOL TAR 50 MG TAB PO SCH ×2 (08:16→22:21)
[2019-03-10] MEDS: ASPIRIN EC 81 MG TAB PO SCH (08:16)
[2019-03-10 12:57] VITALS: O2SAT 96
[2019-03-10] MEDS: NA CHLORIDE 0.9% 1,000 ML IV SCH ×2 (14:24→18:00)
[2019-03-10] MEDS: CEFTRIAXONE/SWI 1gm 1 GM/10 ML SYR IV SCH (17:14)
[2019-03-10] MEDS ORDERED: TRIUMEQ PO SCH (18:00)
[2019-03-10] MEDS: ARFORMOTEROL TARTRATE 15 MCG/2 ML VIAL.NEB NEB SCH (20:50)
[2019-03-10] MEDS ORDERED: ATORVASTATIN 40 MG TAB PO SCH (21:00)
[2019-03-10] MEDS: MINOCYCLINE HCL 50 MG CAP PO SCH (21:00)
[2019-03-10] MEDS ORDERED: INSULIN GLARGINE 100 UNITS/ML SQ SCH (21:00)
[2019-03-10] MEDS: DIVALPROEX NA 125 MG CAP PO SCH (22:21)
[2019-03-10] MEDS: BENZTROPINE 1 MG TAB PO SCH (22:21)
[2019-03-10] MEDS: OXcarbazepine 150 MG TAB PO SCH (22:21)
--- NOTE | 2019-03-10 22:34 | P.PN ---
Subjective Date of Service: 03/10/19 Chief Complaint: Chest pain rule out acute coronary syndrome Subjective: Improving Patient seen and examined at bedside. No family at bedside. Chart reviewed and case discussed with nursing staff. States she is feeling much better. No more chest pain. Denies any shortness of breath, headache, vision changes. Tolerating oral diet , ambulating well. No acute events noted overnight Review of Systems 10-point ROS is otherwise unremarkable Physical Examination - Vital Signs Temperature: 98.5 F Blood Pressure: 125/60 Pulse: 66 Respirations: 16 Pulse Ox (%): 96 - Physical Exam General: Alert, In no apparent distress HEENT: Atraumatic, PERRLA, EOMI Neck: Supple, JVD not distended Respiratory: Clear to auscultation bilaterally, Normal air movement Cardiovascular: Regular rate/rhythm, Normal S1 S2 Gastrointestinal: Normal bowel sounds, No tenderness Musculoskeletal: No tenderness Integumentary: No rashes Neurological: Normal speech, Normal tone, Normal affect Lymphatics: No axilla or inguinal lymphadenopathy Assessment And Plan - Current Problems (Diagnosis) (1) Chest pain, rule out acute myocardial infarction Onset Date: 09/07/18 Current Visit: No Status: Acute (2) UTI (urinary tract infection) Onset Date: 07/09/15 Current Visit: No Status: Acute (3) Diabetes mellitus Onset Date: 08/30/18 Current Visit: No Status: Chronic Qualifiers: (4) Hyperlipidemia Onset Date: 08/30/18 Current Visit: No Status: Chronic Qualifiers: (5) Schizophrenia Onset Date: 08/30/18 Current Visit: No Status: Acute Qualifiers: (6) Hypotension Onset Date: 06/13/15 Current Visit: No Status: Acute - Plan 1. Troponins negative x3 2. Anti-platelet therapy, beta-bernardino, statin, and O2 as needed 3. Anti-inflammatory for pain 4. Continue to hydrate 5. UA with possibility of your infection. Will stall Rocephin. Pending urine cultures. Patient does have a history of PE sp L UTI in the past. We will continue to monitor and wait for sensitivities. 6. Anticipate discharge home in the next 24-48 hr once urine cultures are back
[2019-03-11] MEDS: METHYLPREDNISOLONE 125 MG INJ IV SCH ×3 (00:38→12:00)
[2019-03-11] MEDS: NA CHLORIDE 0.9% 1,000 ML IV SCH ×2 (04:18→07:20)
[2019-03-11] MEDS: CEFTRIAXONE/SWI 1gm 1 GM/10 ML SYR IV SCH (06:03)
[2019-03-11] MEDS: ARFORMOTEROL TARTRATE 15 MCG/2 ML VIAL.NEB NEB SCH (08:38)
[2019-03-11] MEDS: DIVALPROEX NA 125 MG CAP PO SCH (08:57)
[2019-03-11] MEDS: MINOCYCLINE HCL 50 MG CAP PO SCH (08:58)
[2019-03-11] MEDS: METOPROLOL TAR 50 MG TAB PO SCH (08:59)
[2019-03-11] MEDS: BENZTROPINE 1 MG TAB PO SCH (08:59)
[2019-03-11] MEDS ORDERED: ASPIRIN EC 325 MG TABLET PO SCH (09:00)
[2019-03-11] MEDS ORDERED: TRIUMEQ PO SCH (09:00)
[2019-03-11] MEDS ORDERED: GABAPENTIN 300 MG CAP PO SCH (09:00)
[2019-03-11] MEDS ORDERED: LORATADINE 10 MG TAB PO SCH (09:00)
[2019-03-11] MEDS: OXcarbazepine 150 MG TAB PO SCH (09:00)
[2019-03-11] MEDS ORDERED: HOME MED 1 EA UNK (Fluticasone/Vilanterol [Breo Ellipta 100-25 Mcg Inh] 1 PUFF) IN SCH (09:00)
[2019-03-11] MEDS ORDERED: DULOXETINE 30 MG CAP PO SCH (09:00)
[2019-03-11] MEDS ORDERED: RISPERIDONE 1 MG TABLET PO SCH (09:00)
[2019-03-11] MEDS: ENOXAPARIN 40 MG/0.4 ML SQ SCH (09:00)
[2019-03-11] MEDS ORDERED: HOME MED 1 EA UNK PO SCH (09:00)
[2019-03-11 12:41] VITALS: BP 125/60; TEMP 98.5
--- NOTE | 2019-03-11 12:48 | P.SSS ---
Patient History Date of Service: 03/11/19 Reason for admission: Chest pain rule out acute coronary syndrome History of Present Illness: Patient is a 58-year-old female came to the hospital with chest discomfort. Pain was mainly in the sternal region. There was no radiation. Patient states the pain was dull. Her blood pressure was low and she was pretty lethargic. She wake up putting go back to sleep. We give her some fluids in the emergency room and her blood pressure is improved. She is more alert and interacting more at this time. She states that she has not really had any more chest pain. Will go ahead and admit her to the hospital. She will be admitted to the hospital to be ruled out for acute coronary syndrome. Allergies codeine Allergy (Intermediate, Verified 08/27/15 00:23) Unknown Penicillins Allergy (Intermediate, Verified 08/27/15 00:23) Unknown Home medications list reviewed: Yes Home Medications: RX: Abacavir/Dolutegravir/Lamivudi [Triumeq 600-50-300 mg Tablet] 1 tab PO DAILY 01/16/19 RX: Albuterol Sulfate [Proair Hfa] 2 puff IH Q6H PRN 01/16/19 RX: Aspirin [Aspirin EC 325 MG] 325 mg PO DAILY 01/16/19 RX: Atorvastatin Calcium [Lipitor] 40 mg PO BEDTIME 01/16/19 RX: Benztropine Mesylate [Cogentin] 1 mg PO BID 01/16/19 RX: Cholecalciferol (Vitamin D3) [Vitamin D3] 2,000 unit PO DAILY 01/16/19 RX: Divalproex [Depakote Sprinkle*] 250 mg PO BID 01/16/19 RX: Duloxetine HCl [Cymbalta] 60 mg PO DAILY 01/16/19 RX: Magnesium Hydroxide [Milk of Magnesia] 30 mg PO DAILY PRN 01/16/19 RX: Oxcarbazepine [Trileptal] 150 mg PO BID 01/16/19 RX: Risperidone [Risperdal] 1 mg PO DAILY 01/16/19 RX: Tiotropium [place] [Spiriva] 1 puff IH DAILY 01/16/19 RX: Tramadol HCl [Ultram] 50 mg PO TID 01/16/19 RX: Albuterol Neb [Proventil 0.083% Neb Soln] 2.5 mg NEB TID PRN #90 amp RX: Benzonatate [Tessalon Perle*] 100 mg PO TID PRN #30 cap 01/18/19 Perforomist 1 inh IH BID 03/09/19 RX: Albuterol Sulfate [Albuterol Sulfate 0.083% Neb Soln] 1 vial IN TID PRN 11/15 RX: Arformoterol Tartrate [Brovana] 15 mcg NEB BID 03/09/19 RX: Fluticasone/Vilanterol [Breo Ellipta 100-25 Mcg INH] 1 puff IN DAILY RX: Gabapentin 300 mg PO DAILY 03/09/19 RX: Guaif/Dm [Robitussin Dm*] 5 ml PO BID 03/09/19 RX: Guaifenesin [Cough Syrup] 10 ml PO PRN PRN 03/09/19 RX: Insulin Glargine,Hum.rec.anlog [Lantus] 32 units SQ BEDTIME 03/09/19 RX: Ipratropium/Albuterol Sulfate [Iprat-Albut 0.5-3(2.5) mg/3 ml] 1 puff IN PRN PRN 03/09/19 RX: Loratadine [Claritin*] 10 mg PO DAILY 03/09/19 RX: Minocycline HCl [Minocin] 50 mg PO BID 03/09/19 RX: Tramadol HCl [Ultram] 50 mg PO PRN PRN 03/09/19 levoFLOXacin [Levaquin] 500 mg PO DAILY #5 tab 03/11/19 - Past Medical/Surgical History Has patient received pneumonia vaccine in the past: Yes Diabetic: No -: Bipolar disorder -: Schizophrenia -: HIV -: COPD -: Depression -: HLD -: chronic pain -: heart disease -: anxiety -: hysterectomy -: appendectomy - Family History Father -: Lung disease, Diabetes, Cancer Notes: lung cancer Mother -: Lung disease, Cancer Notes: lung cancer - Social History Smoking Status: Current every day smoker Alcohol use: No CD- Drugs: No Caffeine use: Yes Place of Residence: Shelter Review of Systems 10-point ROS is otherwise unremarkable Physical Examination - Vital Signs Temperature: 98.5 F Blood Pressure: 125/60 Pulse: 66 Respirations: 16 Pulse Ox (%): 96 - Physical Exam General: Alert, In no apparent distress HEENT: Atraumatic, PERRLA, Mucous membr. moist/pink, EOMI, Sclerae nonicteric Neck: Supple, 2+ carotid pulse no bruit, No LAD, Without JVD or thyroid abnormality Respiratory: Clear to auscultation bilaterally, Normal air movement Cardiovascular: Regular rate/rhythm, Normal S1 S2 Gastrointestinal: Normal bowel sounds, No tenderness Musculoskeletal: No tenderness Integumentary: No rashes Neurological: Normal gait, Normal speech, Normal strength at 5/5 x4 extr, Normal tone, Normal affect Lymphatics: No axilla or inguinal lymphadenopathy - Diagnosis (Problem(s)) (1) Chest pain, rule out acute myocardial infarction Onset Date: 09/07/18 Current Visit: No Status: Acute (2) UTI (urinary tract infection) Onset Date: 07/09/15 Current Visit: No Status: Acute (3) Diabetes mellitus Onset Date: 08/30/18 Current Visit: No Status: Chronic Qualifiers: (4) Hyperlipidemia Onset Date: 08/30/18 Current Visit: No Status: Chronic Qualifiers: (5) Schizophrenia Onset Date: 08/30/18 Current Visit: No Status: Acute Qualifiers: (6) Hypotension Onset Date: 06/13/15 Current Visit: No Status: Acute Treatment Summary: Patient was admitted to the hospital for observation. Her troponins were trended, the remained negative x3. She was given IV fluids. Initially her blood pressures were low, but they responded well to IV fluids. Her blood pressure is then remained stable, she was alert and ambulating around the hallway without any problems. She was very eager to go back to the snf , for which she is a resident for a long time. Her chest pain had resolved in the ER itself. She remained chest pain free throughout the rest of the stay. Cardiology was consulted, she was cleared for discharge from cardiology point of view. Her urine analysis was suspicious for a urinary tract infection. Her urine cultures were positive for E. coli, sensitive to the Levaquin. She will return back to [facility], where she is already a resident. She otherwise remained stable throughout the stay New medications: Levaquin, for her UTI. - Disposition Discharge Date: 03/11/19 Disposition: ROUTINE DISCHARGE Condition: GOOD Consultations: Cardiology Patient Discharge Instructions: New medication: Levaquin, antibiotic for urinary tract infection Diet: AHA Activity: Ad alonzo Time Spent Managing Pts Care (In Minutes): 55
--- NOTE | 2019-03-11 23:21 | CON ---
Date of Consultation: 03/10/[address] Elam's service on 03/09/2019. Reason For Consultation: Chest pain. History Of Present Illness: Ms. Arias is a 58-year-old white woman, has not really had any previous cardiac history to speak of. She has multiple medical problems including severe COPD. She is HIV p ositive, has a history of diabetes, bipolar disorder, depression, schizophrenia, gastroesophageal ref lux disease as well as anxiety. She came in with sharp stabbing chest pain without any nausea, vomit ing, diaphoresis, PND, orthopnea, pedal edema, palpitations, or syncope. She denied any fever or chi lls. Symptoms were not exertional and nonradiating. They were left-sided. She has ruled out by the time I saw her. Allergies: SHE IS ALLERGIC TO PENICILLIN, CODEINE, SULFA, AND DEMEROL. Review of Systems: Negative. Social History: Negative. Family History: Noncontributory. Medications At Home: Insulin, Ultram, multiple inhalers, aspirin, Lipitor, Neurontin, Depakote and C ymbalta. Physical Examination: Vital Signs: Stable, afebrile. She was pleasant, wanted to go home. HEENT: Negative. Neck: Supple. No bruit. Chest: Clear to auscultation and percussion. Cardiac: Regular rhythm and rate. No murmurs, gallops, or rubs. Abdomen: Benign. Extremities: No clubbing, cyanosis, or edema. Skin: Dry and intact. Neurologic: She was nonfocal. Diagnostic Data: All within normal limit as far as labs are concerned. She has an EKG showing pulmo nary disease pattern. Echocardiogram was normal in September of 2018. Chest x-ray shows chronic inte rstitial lung disease. Impression And Plan: 1.Atypical chest pain, most likely pleuritic. 2.Diabetes, well controlled. 3.Dyslipidemia, well controlled. 4.Chronic obstructive pulmonary disease with chronic interstitial lung disease. 5.Abnormal EKG secondary to chronic obstructive pulmonary disease. 6.Anxiety, depression, bipolar disorder and schizophrenia. I feel comfortable with Ms. Arias is go ing home. I do not think we need to repeat any cardiac workup at this point. Her echocardiogram was normal in September 2018. I think if her symptoms persist, we need to consider doing an outpatient s tress test. NB/MODL Voice ID: [id number] Report ID: [id number]
--- NOTE | 2019-03-12 08:31 | ECHO ---
HEIGHT: 5 ft 5 in WEIGHT: 190 lb 1.6 oz DATE OF STUDY: 03/09/[address]: Nida Langston MD 2-DIMENSIONAL: YES M.MODE: YES DOPPLER: YES COLOR FLOW: YES TDS: NO PORTABLE: NO DEFINITY: NO BUBBLE STUDY: NO DIAGNOSIS: CHEST PAIN CARDIAC HISTORY: CATHERIZATION: NO SURGERY: NO PROSTHETIC VALVE: NO PACEMAKER: NO MEASUREMENTS (cm) DIASTOLIC (NORMALS) SYSTOLIC (NORMALS) IVSd 1.0 (0.6-1.2) LA Diam 3.4 (1.9-4.0) LVEF 62% LVIDd 3.9 (3.5-5.7) LVIDs 2.6 (2.0-3.5) %FS 33% LVPWd 0.9 (0.6-1.2) Ao Diam 2.9 (2.0-3.7) 2 DIMENSIONAL ASSESSMENT: RIGHT ATRIUM: NORMAL LEFT ATRIUM: NORMAL RIGHT VENTRICLE: NORMAL LEFT VENTRICLE: NORMAL TRICUSPID VALVE: NORMAL MITRAL VALVE: NORMAL PULMONIC VALVE: NORMAL AORTIC VALVE: NORMAL PERICARDIAL EFFUSION: NONE AORTIC ROOT: NORMAL LEFT VENTRICULAR WALL MOTION: NORMAL DOPPLER/COLOR FLOW: NORMAL COMMENTS: NORMAL 2D ECHOCARDIOGRAM WITH DOPPLER. NO MITRAL VALVE PROLAPSE. NO EFFUSION. TECHNOLOGIST: Natalie MOON
== END 2019-03-11 14:20 ==
LOC: ER 21:32 → ERHOLD 03-09 01:29 → 4TH 03-09 03:15
PROVIDERS: ADMIT Hospitalist; ATTEND Family Medicine
DX: R07.9 Chest pain, unspecified (principal); N39.0 Urinary tract infection, site not specified; B96.20 Unspecified Escherichia coli [E. coli] as the cause of diseases classified elsewhere; E11.8 Type 2 diabetes mellitus with unspecified complications; E78.5 Hyperlipidemia, unspecified; F23 Brief psychotic disorder; I95.9 Hypotension, unspecified; F17.210 Nicotine dependence, cigarettes, uncomplicated; J44.9 Chronic obstructive pulmonary disease, unspecified; K21.9 Gastro-esophageal reflux disease without esophagitis; F41.8 Other specified anxiety disorders; J84.89 Other specified interstitial pulmonary diseases; R94.31 Abnormal electrocardiogram [ECG] [EKG]; Z21 Asymptomatic human immunodeficiency virus [HIV] infection status; Z88.0 Allergy status to penicillin; Z88.6 Allergy status to analgesic agent
CPT/HCPCS: 36415; 71045; 80048; 80061; 80076; 81001; 83735; 83880; 84484; 85025; 85610; 87077; 87086; 87088; 87186; 93005; 93306; 94640; 99285; G0378; J0696; J1650; J1720; J2930; J7030; J7605

== ENCOUNTER 2019-09-10 19:17 | Inpatient (IN) | payer OTHER ==
[2019-09-10] MEDS ORDERED: NA CHLORIDE 0.9% 500 ML ONE (19:58)
[2019-09-10] MEDS ORDERED: NA CHLORIDE 0.9% 2,000 ML ONE (19:58)
--- NOTE | 2019-09-10 20:20 | RAD REPORT ---
EXAM DESCRIPTION: RAD - Chest Single View - 09/10/2019 8:11 pm CLINICAL HISTORY: sepsis work up Chest pain. COMPARISON: Chest Single View dated 03/08/2019; Chest Pa And Lat (2 Views) dated 01/17/2019; Chest Sin gle View dated 01/17/2019; Chest Single View dated 01/16/2019 FINDINGS: Portable technique limits examination quality. The lungs are emphysematous. The lung bases appear hazy which may be related to mild infiltrate or at electasis. The heart is upper limit normal in size. No displaced fractures.
[2019-09-10 20:24] LABS: Absolute Lymphocytes (CBC) 2.4 K/uL (0.7-4.9); Basophils % 0.2 % (0-1.3); Hematocrit 44.7 % (36.0-45.0); Lymphocytes % 28.8 % (15.3-44.8); MPV 9.5 fL (7.6-11.3); RBC Red Blood Cell Count 4.27 M/uL (3.86-4.86)
[2019-09-10 20:32] LABS: ALT/SGPT 14 U/L (12-78); AST/SGOT 9 U/L (15-37); Albumin 3.1 g/dL (3.4-5.0); Alkaline Phosphatase 93 U/L (45-117); BUN Blood Urea Nitrogen 11 mg/dL (7-18); Bicarbonate 33 mmol/L (21-32); Bilirubin Direct 0.1 mg/dL (0-0.2); Bilirubin Total 0.4 mg/dL (0.2-1.0); Creatine Phosphokinase 340 U/L (26-192); Glucose Level 114 mg/dL (74-106); Lipase 40 U/L (73-393); Potassium 3.8 mmol/L (3.5-5.1); Protein, Total 6.9 g/dL (6.4-8.2); Sodium Level 143 mmol/L (136-145); Troponin (Emerg Dept Use Only) < 0.02 ng/mL (0.0-0.045)
[2019-09-10 20:34] LABS: Protime INR 0.96
[2019-09-10 20:57] LABS: Blood Morphology Comment NOT SEEN (NOT SEEN); Platelet Estimate DECR; Urine White Blood Cell Casts OK
[2019-09-10 21:16] LABS: Urine Bacteria LOADED /HPF (<20); Urine Culture Reflex Order REFLEXED; Urine Mucus 3+ /HPF (NONE SEEN)
[2019-09-10 21:33] LABS: Urine Blood TRACE (NEG); Urine Glucose NEGATIVE (NEG); Urine Protein 1+ (NEG); Urine Specific Gravity 1.025 (1.005-1.030); Urine pH 6.5 (5.0-7.0)
[2019-09-10 21:34] LABS: Arterial Blood Carboxyhemoglob 1.2 % (0-1.5); Blood Gas Oxyhemoglobin 84.1 % (94-97); Blood O2 Saturation 85.8 % (92-98.5)
[2019-09-10] MEDS ORDERED: CEFTRIAXONE/SWI 1gm 1 GM/10 ML SYR ONE (22:21)
--- NOTE | 2019-09-10 22:35 | P.HP ---
Certification for Inpatient With expected LOS: >2 Midnights Patient will require the following post-hospital care: Care Home Practitioner: I am a practitioner with admitting privileges, knowledge of patient current condition, hospital course, and medical plan of care. Services: Services provided to patient in accordance with Admission requirements found in Title 42 Section 412.3 of the Code of Federal Regulations Patient History Date of Service: 09/11/19 Reason for admission: Altered mental status History of Present Illness: 58-year-old woman, half-way resident with a history of HIV on antiretroviral therapy, history of COPD, schizophrenia, chronic pain syndrome, history of recurrent UTI was transferred from the half-way to the emergency department due to altered mental status. No report of fever or shortness of breath. No report of seizures. In the ED, patient noted to be confused. UA suggest the presence of UTI. She has mild leukocytosis, no fever or tachycardia and does not meet criteria for sepsis. ABG revealed mild CO2 retention and hypoxia. Chest x-ray demonstrated emphysematous changes and mild infiltrate versus atelectasis. Patient is admitted for further management. Allergies codeine Allergy (Intermediate, Verified 08/27/15 00:23) Unknown Penicillins Allergy (Intermediate, Verified 08/27/15 00:23) Unknown Home Medications: Abacavir/Dolutegravir/Lamivudi [Triumeq 600-50-300 mg Tablet] 1 tab PO DAILY Albuterol Sulfate [Proair Hfa] 2 puff IH Q6H PRN 01/16/19 Aspirin [Aspirin EC 325 MG] 325 mg PO DAILY 01/16/19 Atorvastatin Calcium [Lipitor] 40 mg PO BEDTIME 01/16/19 Cholecalciferol (Vitamin D3) [Vitamin D3] 2,000 unit PO DAILY 01/16/19 Divalproex [Depakote Sprinkle*] 250 mg PO BID 01/16/19 Duloxetine HCl [Cymbalta] 60 mg PO DAILY 01/16/19 Magnesium Hydroxide [Milk of Magnesia] 30 mg PO DAILY PRN 01/16/19 Oxcarbazepine [Trileptal] 150 mg PO BID 01/16/19 Risperidone [Risperdal] 1 mg PO DAILY 01/16/19 Albuterol Neb [Proventil 0.083% Neb Soln] 2.5 mg NEB TID PRN #90 amp 01/18/19 Albuterol Sulfate [Albuterol Sulfate 0.083% Neb Soln] 1 vial IN TID PRN Fluticasone/Vilanterol [Breo Ellipta 100-25 Mcg INH] 1 puff IN DAILY 03/09/19 Gabapentin 300 mg PO TID 03/09/19 Insulin Glargine,Hum.rec.anlog [Lantus] 32 units SQ BEDTIME 03/09/19 Ipratropium/Albuterol Sulfate [Iprat-Albut 0.5-3(2.5) mg/3 ml] 1 puff IN PRN PRN 03/09/19 Tramadol HCl [Ultram] 50 mg PO Q6HP PRN 03/09/19 guaiFENesin [Cough Syrup] 10 ml PO BIDP PRN 03/09/19 Benzonatate [Tessalon Perle*] 100 mg PO TIDP PRN 09/11/19 Benztropine Mesylate [Cogentin*] 1 mg PO BID 09/11/19 Iloperidone [Fanapt] 8 mg PO TID 09/11/19 Insulin Lispro [Humalog] See Protocol SQ SEECOM 09/11/19 L.acidoph,Paracasei, B.lactis [Probiotic] 200 milliu PO BID 09/11/19 Risperidone [Risperdal] 1 mg PO DAILY 09/11/19 Tramadol HCl [Ultram] 50 mg PO DAILY 09/11/19 - Past Medical/Surgical History Diabetic: No -: Bipolar disorder -: Schizophrenia -: HIV -: COPD -: Depression -: HLD -: chronic pain -: heart disease -: anxiety -: hysterectomy -: appendectomy - Family History Father -: Lung disease, Diabetes, Cancer Notes: lung cancer Mother -: Lung disease, Cancer Notes: lung cancer - Social History Alcohol use: No CD- Drugs: No Caffeine use: Yes Review of Systems is unable to be obtained (Due to altered mental status) Physical Examination - Physical Exam General: In no apparent distress, Cooperative, Confused HEENT: Normocephalic, PERRLA, Mucous membr. moist/pink Neck: Supple, JVD not distended, No Thyromegaly Respiratory: Clear to auscultation bilaterally, Normal air movement Cardiovascular: No edema, Regular rate/rhythm, Normal S1 S2, No murmurs Capillary refill: <2 Seconds Gastrointestinal: Normal bowel sounds, Soft and benign, Tenderness (Suprapubic tenderness) Musculoskeletal: No swelling, No erythema Integumentary: No rashes Neurological: Normal strength at 5/5 x4 extr - Studies Laboratory Data (last 24 hrs) 09/10/19 19:50: PT 11.4, INR 0.96, APTT 21.0 L 09/10/19 19:50: WBC 8.4, Hgb 15.1 H, Hct 44.7, Plt Count 162 09/10/19 19:50: Sodium 143, Potassium 3.8, BUN 11, Creatinine 0.69, Glucose 114 H, Total Bilirubin 0.4, AST 9 L, ALT 14, Alkaline Phosphatase 93, Lipase 40 L Assessment and Plan - Problems (Diagnosis) (1) Acute encephalopathy Onset Date: 01/17/19 Current Visit: No Status: Acute (2) Acute respiratory failure with hypoxia and hypercapnia Current Visit: Yes Status: Acute (3) COPD exacerbation Onset Date: 01/17/19 Current Visit: No Status: Acute (4) UTI (urinary tract infection) Onset Date: 08/30/18 Current Visit: No Status: Acute (5) Diabetes mellitus Onset Date: 08/30/18 Current Visit: No Status: Chronic Qualifiers: (6) HIV (human immunodeficiency virus infection) Onset Date: 07/09/15 Current Visit: No Status: Chronic Qualifiers: - Plan Admit to F Start IV Levaquin Follow blood cultures and urine culture IV hydration with normal saline Scheduled bronchodilator nebs Advair IV steroids Serial ABG BiPAP as needed for hypercapnia. Continue home antiretrovirals Consult infectious disease. Insulin sliding scale for glucose management Hold Lantus insulin until patient is able to feed well Continue home medications for schizophrenia. - Advance Directives Does patient have a Living Will: No Does patient have a Durable POA for Healthcare: No
--- NOTE | 2019-09-10 22:49 | EDPHYS ---
Physician Documentation [facility] Name: Lucia Arias Age: 58 yrs Sex: Female : 1960 Arrival Date: 09/10/2019 Time: 19:23 Bed 18 Private MD: ED Physician Nida Barry HPI: 09/10 21:15 This 58 yrs old Female presents to ER via EMS with complaints of AMS. jr8 21:15 The patient presents with decreased mental status, disorientation. Onset: The jr8 symptoms/episode began/occurred 3 day(s) ago. Possible causes: CVA or TIA, low blood sugar, sepsis. Associated signs and symptoms: Pertinent negatives: agitation, chest pain, combativeness, diaphoresis, diarrhea, shortness of breath, vomiting. Current symptoms: In the emergency department the patient's symptoms are unchanged from the initial presentation. Patient's baseline: Neuro: alert but confused. penitentiary states patient has been more altered than normal and less alert since Tuesday. Denies fevers, injuries, or any other symptoms but has hx of chronic UTI. Historical: - Allergies: 19:56 Codeine; fc 19:56 Demerol; fc 19:56 PENICILLINS; fc 19:56 Sulfa (Sulfonamide Antibiotics); fc - Home Meds: 19:56 aspirin 325 mg Oral tab 1 tab once daily [Active]; benztropine 1 mg Oral tab 1 tab 2 fc times per day [Active]; Cymbalta 60 mg Oral cpDR 1 cap once daily [Active]; Depakote Sprinkles 125 mg Oral cpSP 2 caps every 12 hours [Active]; Fanapt 8 mg Oral tab 1 tab 2 times per day [Active]; gabapentin 300 mg Oral cap 1 cap 3 times per day [Active]; Humalog 100 unit/mL Sub-Q crtg sliding scale ac hs [Active]; Incruse Ellipta 62.5 mcg/actuation inhalation dsdv 1 puff once daily [Active]; Lantus 100 unit/mL Sub-Q soln 32 unit nightly [Active]; Lipitor 40 mg Oral tab 1 tab nightly [Active]; Risperdal 1 mg Oral tab 1 tab once daily [Active]; tramadol 50 mg Oral tab 1 tab q6h prn [Active]; tramadol 300 mg Oral Tb24 1 tab once daily [Active]; Trileptal 150 mg Oral tab 1 tabs 2 times per day [Active]; Triumeq 600-50-300 mg Oral tab 1 tab once daily [Active]; Vitamin D Oral 2000 unit daily [Active]; fluticasone-salmeterol inhalation inhalation 2 times per day [Active]; - PMHx: 19:56 HIV; Diabetes - IDDM; Schizophrenia; UTI; Cellulitis; Chronic pain; CAD; GERD; Angina; fc Hyperlipidemia; Anxiety; Depression; COPD; Difficulty walking; LACK OF COORDINATION; Bipolar disorder; pulmonary edema; neuropathy; - Immunization history:: Last tetanus immunization: unknown. - Social history:: Smoking status: unknown. - Ebola Screening: : Patient negative for fever greater than or equal to 101.5 degrees Fahrenheit, and additional compatible Ebola Virus Disease symptoms Patient denies exposure to infectious person Patient denies travel to an Ebola-affected area in the 21 days before illness onset. ROS: 21:15 Unable to obtain ROS due to patient's inability to understand questions. jr8 Exam: 21:15 Constitutional: This is a patient who is awake, and in no acute distress. Head/Face: jr8 Normocephalic, atraumatic. Eyes: Pupils equal round and reactive to light, extra-ocular motions intact. Lids and lashes normal. Conjunctiva and sclera are non-icteric and not injected. Cornea within normal limits. Periorbital areas with no swelling, redness, or edema. ENT: Mucous membranes moist. Neck: Trachea midline, no thyromegaly or masses palpated, and no cervical lymphadenopathy. Supple, full range of motion without nuchal rigidity, or vertebral point tenderness. No Meningismus. Chest/axilla: Normal chest wall appearance and motion. Nontender with no deformity. No lesions are appreciated. Cardiovascular: Regular rate and rhythm with a normal S1 and S2. No gallops, murmurs, or rubs. Normal PMI, no JVD. No pulse deficits. Respiratory: Lungs have equal breath sounds bilaterally, clear to auscultation No rales, rhonchi or wheezes noted. No increased work of breathing, no retractions or nasal flaring. Abdomen/GI: Soft, non-tender, with normal bowel sounds. No distension or tympany. No guarding or rebound. No evidence of tenderness throughout. MS/ Extremity: Pulses equal, no cyanosis. Neurovascular intact. Full, normal range of motion. 21:15 Neuro: Orientation: to person, Mentation: responsive to voice slow to respond, sleepy. Vital Signs: 19:17 BP 112 / 73; Pulse 102; Resp 18; Temp 98.0; Pulse Ox 97% on 2 lpm NC; Weight 81.65 kg wh (R); Height 5 ft. 6 in. (167.64 cm) (R); Pain 0/10; 21:00 BP 101 / 69; Pulse 99; Resp 18; Pulse Ox 98% on 4 lpm NC; wh 23:02 BP 120 / 86; Pulse 97; Resp 18; Pulse Ox 98% on 4 lpm NC; wh 19:17 Body Mass Index 29.05 (81.65 kg, 167.64 cm) MDM: 19:24 Patient medically screened. jr8 22:09 Data reviewed: vital signs, nurses notes, lab test result(s), EKG, radiologic studies, jr8 CT scan, plain films. Data interpreted: Pulse oximetry: on room air is 97 %. Interpretation: normal. Counseling: I had a detailed discussion with the patient and/or guardian regarding: the historical points, exam findings, and any diagnostic results supporting the discharge/admit diagnosis, lab results, radiology results, the need for further work-up and treatment in the hospital, to return to the emergency department if symptoms worsen or persist or if there are any questions or concerns that arise at home. 22:20 Physician consultation: was called at 22:20, was contacted at 22:20, regarding jr8 admission, to the telemetry unit. consult, patient's condition, and will see patient. 09/10 19:27 Order name: Basic Metabolic Panel; Complete Time: 21:14 09/10 19:27 Order name: Blood Culture Adult (2) jr8 09/10 19:27 Order name: CBC with Diff; Complete Time: 21:14 8 09/10 19:27 Order name: CPK; Complete Time: 21:14 8 09/10 19:27 Order name: Lactate; Complete Time: 20:29 8 09/10 19:27 Order name: LFT's; Complete Time: 21:14 8 09/10 19:27 Order name: Lipase; Complete Time: 21:14 [facility] 09/10 19:27 Order name: Procalcitonin; Complete Time: 21:14 [facility] 09/10 19:27 Order name: Protime (+inr); Complete Time: 21:14 [facility] 09/10 19:27 Order name: Ptt, Activated; Complete Time: 21:14 [facility] 09/10 19:27 Order name: Troponin (emerg Dept Use Only); Complete Time: 21:14 [facility] 09/10 19:27 Order name: Urine Microscopic Only; Complete Time: 22:06 [facility] 09/10 20:03 Order name: Glucometer Result Nova; Complete Time: 20:29 09/10 20:57 Order name: CBC Smear Scan; Complete Time: 21:14 [facility] 09/10 19:27 Order name: Cath; Complete Time: 20:40 [facility] 09/10 19:27 Order name: Chest Single View XRAY; Complete Time: 20:29 [facility] 09/10 19:27 Order name: Accucheck; Complete Time: 20:01 [facility] 09/10 19:27 Order name: Cardiac monitoring; Complete Time: 20:01 [facility] 09/10 19:27 Order name: EKG - Nurse/Tech; Complete Time: 20:01 [facility] 09/10 19:27 Order name: IV Saline Lock - Large Bore; Complete Time: 20:01 [facility] 09/10 19:27 Order name: Labs collected and sent; Complete Time: 20:01 [facility] 09/10 19:27 Order name: O2 Per Protocol; Complete Time: 20:01 [facility] 09/10 19:27 Order name: O2 Sat Monitoring; Complete Time: 20:01 [facility] 09/10 19:55 Order name: Head Brain Wo Cont CT [facility] 09/10 20:58 Order name: Urine Dipstick--Ancillary (enter results); Complete Time: 22:06 [facility] 09/10 21:15 Order name: AMMONIA; Complete Time: 22:48 [facility] 09/10 21:15 Order name: ABG; Complete Time: 22:06 [facility] 09/10 21:23 Order name: Urine Culture [facility] 09/10 19:27 Order name: Urine Dipstick-Ancillary (obtain specimen); Complete Time: 20:56 [facility] 09/10 21:38 Order name: Oxygen: NC \T\ 4 liters; Complete Time: 21:40 jr Administered Medications: 20:02 Drug: NS 0.9% (30 ml/kg) 30 ml/kg Route: IV; Rate: bolus; Site: left antecubital; 23:21 Follow up: Response: No adverse reaction; IV Status: Completed infusion 22:25 Drug: Rocephin 1 grams Route: IV; Rate: calculated rate; Site: left antecubital; 23:21 Follow up: Response: No adverse reaction; IV Status: Completed infusion Disposition: 09/10/19 22:48 Hospitalization ordered by Toby Brooke for Observation. Preliminary diagnosis are Altered mental status, unspecified, Urinary tract infection, site not specified, Chronic respiratory failure, unspecified whether with hypoxia or hypercapnia. - Bed requested for Telemetry/MedSurg (observation). - Status is Observation. - Condition is Stable. - Problem is new. - Symptoms have improved. UTI on Admission? Yes Signatures: Dispatcher [employer] EDMS Freya Moise RN RN mw Chretien, Felicia, RN RN fc Roszak, Josh, PA PA [facility] Marysol Hendrickson Corrections: (The following items were deleted from the chart) 22:51 22:48 Hospitalization Ordered by Toby Brooke for Observation. Preliminary diagnosis mw is Altered mental status, unspecified; Urinary tract infection, site not specified; Chronic respiratory failure, unspecified whether with hypoxia or hypercapnia. Bed requested for Telemetry/MedSurg (observation). Status is Observation. Condition is Stable. Problem is new. Symptoms have improved. UTI on Admission? Yes. jr 23: 22:51 09/10/2019 22:48 Hospitalization Ordered by Toby Brooke for Observation. Preliminary diagnosis is Altered mental status, unspecified; Urinary tract infection, site not specified; Chronic respiratory failure, unspecified whether with hypoxia or hypercapnia. Bed requested for Telemetry/MedSurg (observation). Status is Observation. Condition is Stable. Problem is new. Symptoms have improved. UTI on Admission? Yes. mw
--- NOTE | 2019-09-10 22:49 | ER ---
Nurse's Notes [facility] Name: Lucia Arias Age: 58 yrs Sex: Female : 1960 Arrival Date: 09/10/2019 Time: 19:23 Bed 18 Private MD: Diagnosis: Altered mental status, unspecified;Urinary tract infection, site not specified;Chronic respiratory failure, unspecified whether with hypoxia or hypercapnia Presentation: 09/10 19:17 Presenting complaint: EMS states: that the senior care told her that pt has been fc altered since last Tuesday more than normal. Pt is oriented to person only. Transition of care: patient was received from another setting of care (long-term care facility), [facility]. Onset of symptoms was September 07, 2019. Risk Assessment: Do you want to hurt yourself or someone else? Patient reports no desire to harm self or others. Initial Sepsis Screen: Does the patient meet any 2 criteria? HR > 90 bpm. Yes Does the patient have a suspected source of infection? No. Patient's initial sepsis screen is negative. Care prior to arrival: IV initiated. 20 GA, in the right wrist, Glucose check: 150 Vital signs : heart rate of 102, bp of 112/73 and sats of 91% on roomair. 19:17 Method Of Arrival: EMS: [facility] 19:17 Acuity: LATONYA 3 fc Triage Assessment: 20:00 General: Behavior is drowsy. wh 20:00 Pain: Denies pain. wh 20:00 General: Appears in no apparent distress. Historical: - Allergies: 19:56 Codeine; 19:56 Demerol; 19:56 PENICILLINS; 19:56 Sulfa (Sulfonamide Antibiotics); fc - Home Meds: 19:56 aspirin 325 mg Oral tab 1 tab once daily [Active]; benztropine 1 mg Oral tab 1 tab 2 fc times per day [Active]; Cymbalta 60 mg Oral cpDR 1 cap once daily [Active]; Depakote Sprinkles 125 mg Oral cpSP 2 caps every 12 hours [Active]; Fanapt 8 mg Oral tab 1 tab 2 times per day [Active]; gabapentin 300 mg Oral cap 1 cap 3 times per day [Active]; Humalog 100 unit/mL Sub-Q crtg sliding scale ac hs [Active]; Incruse Ellipta 62.5 mcg/actuation inhalation dsdv 1 puff once daily [Active]; Lantus 100 unit/mL Sub-Q soln 32 unit nightly [Active]; Lipitor 40 mg Oral tab 1 tab nightly [Active]; Risperdal 1 mg Oral tab 1 tab once daily [Active]; tramadol 50 mg Oral tab 1 tab q6h prn [Active]; tramadol 300 mg Oral Tb24 1 tab once daily [Active]; Trileptal 150 mg Oral tab 1 tabs 2 times per day [Active]; Triumeq 600-50-300 mg Oral tab 1 tab once daily [Active]; Vitamin D Oral 2000 unit daily [Active]; fluticasone-salmeterol inhalation inhalation 2 times per day [Active]; - PMHx: 19:56 HIV; Diabetes - IDDM; Schizophrenia; UTI; Cellulitis; Chronic pain; CAD; GERD; Angina; fc Hyperlipidemia; Anxiety; Depression; COPD; Difficulty walking; LACK OF COORDINATION; Bipolar disorder; pulmonary edema; neuropathy; - Immunization history:: Last tetanus immunization: unknown. - Social history:: Smoking status: unknown. - Ebola Screening: : Patient negative for fever greater than or equal to 101.5 degrees Fahrenheit, and additional compatible Ebola Virus Disease symptoms Patient denies exposure to infectious person Patient denies travel to an Ebola-affected area in the 21 days before illness onset. Screenin:28 Abuse screen: Denies threats or abuse. Nutritional screening: No deficits noted. fc Tuberculosis screening: No symptoms or risk factors identified. Fall Risk None identified. Assessment: 20:20 General: Appears in no apparent distress. Behavior is drowsy. Pain: Denies pain. Neuro: wh Level of Consciousness is awake, alert, obeys commands, Oriented to person. Cardiovascular: Heart tones S1 S2 Rhythm is regular. Respiratory: Airway is patent Respiratory effort is even, unlabored, Respiratory pattern is regular, symmetrical, Breath sounds are clear bilaterally. GI: Abdomen is flat, non-distended. : No signs and/or symptoms were reported regarding the genitourinary system. EENT: No signs and/or symptoms were reported regarding the EENT system. Derm: Skin is intact, is healthy with good turgor, Skin is pink, warm \T\ dry. normal. Musculoskeletal: Circulation, motion, and sensation intact. 21:40 Reassessment: Patient appears in no apparent distress at this time. No changes from previously documented assessment. Patient and/or family updated on plan of care and expected duration. Pain level reassessed. Patient is alert, oriented x 3, equal unlabored respirations, skin warm/dry/pink. Patient states feeling better. Patient states symptoms have improved. 22:59 Reassessment: Patient appears in no apparent distress at this time. No changes from previously documented assessment. Patient and/or family updated on plan of care and expected duration. Pain level reassessed. Patient is alert, oriented x 3, equal unlabored respirations, skin warm/dry/pink. PT now much more alert and oriented, trying to get out of the bed Patient states feeling better. Patient states symptoms have improved. Vital Signs: 19:17 BP 112 / 73; Pulse 102; Resp 18; Temp 98.0; Pulse Ox 97% on 2 lpm NC; Weight 81.65 kg (R); Height 5 ft. 6 in. (167.64 cm) (R); Pain 0/10; 21:00 BP 101 / 69; Pulse 99; Resp 18; Pulse Ox 98% on 4 lpm NC; 23:02 BP 120 / 86; Pulse 97; Resp 18; Pulse Ox 98% on 4 lpm NC; 19:17 Body Mass Index 29.05 (81.65 kg, 167.64 cm) ED Course: 19:17 Arm band placed on Patient placed in an exam room, on a stretcher. 19:17 Patient has correct armband on for positive identification. Placed in gown. Bed in low fc position. Call light in reach. Side rails up X2. 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 Pulse ox on. NIBP on. 19:17 No provider procedures requiring assistance completed. Maintain EMS IV. Dressing fc intact. Good blood return noted. Site clean \T\ dry. Gauge \T\ site: 20 gauge to right wrist. 19:23 Patient arrived in ED. 19:23 Marysol Hendrickson is Primary Nurse. 19:24 Justin Ornelas PA is PHCP. jr8 19:24 Nida Barry MD is Attending Physician. jr8 19:26 Triage completed. 20:03 Inserted saline lock: 20 gauge in left antecubital area, using aseptic technique. Blood collected. 20:11 Chest Single View XRAY In Process Unspecified. EDMS 20:20 Funes cath inserted, using sterile technique, 16 Fr., by hi, balloon inflated, to gravity drainage, clamped. urine specimen collected. 20:52 CT completed. Patient tolerated procedure well. Patient moved to CT via stretcher. nj Patient moved back from CT. 20:58 Head Brain Wo Cont CT In Process Unspecified. EDCO 22:48 Toby Brooke is Hospitalizing Provider. jr8 23:21 Patient admitted, IV remains in place. Administered Medications: 20:02 Drug: NS 0.9% (30 ml/kg) 30 ml/kg Route: IV; Rate: bolus; Site: left antecubital; 23:21 Follow up: Response: No adverse reaction; IV Status: Completed infusion 22:25 Drug: Rocephin 1 grams Route: IV; Rate: calculated rate; Site: left antecubital; 23:21 Follow up: Response: No adverse reaction; IV Status: Completed infusion Outcome: 22:48 Decision to Hospitalize by Provider. jr8 23:20 Admitted to Med/surg accompanied by [facility], via wheelchair, room 202, with oxygen, with chart, Report called to Ayaka Olmedo RN 23:20 Condition: good 23:20 Instructed on the need for admit. 23:23 Patient left the ED. Signatures: Dispatcher [employer] EDCO Martha Israel RN RN Justin Ornelas PA PA jr8 Nicholas Gonzalez Winsy Corrections: (The following items were deleted from the chart) 20:03 19:17 BP 112 / 73; Pulse 102bpm; Resp 18bpm; Pulse Ox 97% 2 lpm Nasal Cannula; 81.65 kg wh Reported; Height 5 ft. 6 in. Reported; BMI: 29.0; Pain 0/10; fc 23:01 20:20 Neuro: Level of Consciousness is awake, alert, obeys commands, [facility]
[2019-09-10] MEDS ORDERED: ACETAMINOPHEN 500 MG TAB PO PRN (23:31)
[2019-09-10] MEDS ORDERED: D50W 25 GM/50 ML SYRINGE IV PRN (23:31)
[2019-09-10] MEDS ORDERED: GLUCAGON 1 MG/VIAL IM PRN (23:31)
[2019-09-10] MEDS ORDERED: ONDANSETRON 4 MG/2 ML VIAL IV PRN (23:31)
[2019-09-10 23:40] VITALS: BMI 28.0
[2019-09-11] MEDS: NA CHLORIDE 0.9% 1,000 ML IV SCH ×3 (00:37→23:27)
[2019-09-11] MEDS: METHYLPREDNISOLONE 40 MG INJ IV SCH ×2 (00:38→05:32)
[2019-09-11] MEDS: Levofloxacin 750mg IV 750 MG/150 ML BAG IV SCH ×2 (00:40→23:27)
[2019-09-11] MEDS: ALBUTEROL 2.5 MG/3 ML NEB SOL NEB SCH ×4 (01:35→20:20)
[2019-09-11] MEDS: IPRATROPIUM BROM 0.5MG/2.5ML NEB SCH ×4 (01:35→20:20)
[2019-09-11 05:36] LABS: Absolute Lymphocytes (CBC) 0.9 K/uL (0.7-4.9); Basophils % 0.2 % (0-1.3); Hematocrit 43.4 % (36.0-45.0); Lymphocytes % 18.7 % (15.3-44.8); MPV 9.6 fL (7.6-11.3); RBC Red Blood Cell Count 4.14 M/uL (3.86-4.86)
[2019-09-11 05:48] LABS: BUN Blood Urea Nitrogen 8 mg/dL (7-18); Bicarbonate 30 mmol/L (21-32); Glucose Level 147 mg/dL (74-106); Magnesium 1.7 mg/dL (1.8-2.4); Potassium 4.4 mmol/L (3.5-5.1); Sodium Level 143 mmol/L (136-145)
[2019-09-11] MEDS ORDERED: MAGNESIUM SULFATE 1 gm IVPB 1 GM/100 ML BAG IV ONE (06:39)
[2019-09-11] MEDS ORDERED: guaiFENesin 100 MG/5 ML UCUP PO PRN (06:47)
[2019-09-11] MEDS ORDERED: BENZONATATE 100 MG CAP PO PRN (06:47)
[2019-09-11] MEDS: DOLUTEGRAVIR PO SCH (09:00)
[2019-09-11] MEDS: ABACAVIR PO SCH (09:00)
[2019-09-11] MEDS: HOME MED 1 EA UNK (Aspirin [Aspirin Ec 325 Mg] 325 MG) PO SCH (09:00)
[2019-09-11] MEDS: ACIDOPH PARACASEI B LACTIS PO SCH ×2 (09:00→20:57)
[2019-09-11] MEDS: ILOPERIDONE 8 MG PO SCH ×3 (09:00→20:57)
[2019-09-11] MEDS: LAMIVUDI PO SCH (09:00)
[2019-09-11] MEDS: HOME MED 1 EA UNK (Duloxetine Hcl [Cymbalta] 60 MG) PO SCH (09:00)
[2019-09-11] MEDS: HOME MED 1 EA UNK (Cholecalciferol (Vitamin D3) [Vitamin D3] 2,000 UNIT) PO SCH (09:00)
[2019-09-11] MEDS: INSULIN -REGULAR HUMAN 50 UNIT/0.5 ML ML SQ SCH ×4 (09:08→21:00)
[2019-09-11] MEDS: ENOXAPARIN 40 MG/0.4 ML SQ SCH (09:09)
[2019-09-11] MEDS: DIVALPROEX NA 125 MG CAP PO SCH ×2 (09:11→20:54)
[2019-09-11] MEDS: RISPERIDONE 1 MG TABLET PO SCH (09:11)
[2019-09-11] MEDS: BENZTROPINE 1 MG TAB PO SCH ×2 (09:11→20:54)
[2019-09-11] MEDS: OXcarbazepine 150 MG TAB PO SCH ×2 (09:12→20:54)
[2019-09-11] MEDS: DULERA 100/5 (MOMETASONE/FORMOTEROL) INHALER IH SCH ×2 (09:13→20:56)
--- NOTE | 2019-09-11 10:12 | RAD REPORT ---
EXAM DESCRIPTION: Head Brain Wo Cont CLINICAL HISTORY: 58 years Female DECLINING STATE COMPARISON: CT head without contrast dated January 16, 2019 TECHNIQUE: Contiguous axial images of the brain were obtained without the administration of intraven ous contrast.This exam was performed according to our departmental dose-optimization program which in cludes use of Automated Exposure Control, adjustment of the mA and/or kV according to patient size an d/or use of iterative reconstruction technique. FINDINGS: Brain: No acute intracranial hemorrhage. No extra-axial collection. No mass effect or katherine iation. Unchanged prominence of the sulci and cisterns Confluent periventricular and subcortical wh ite matter hypodensity is noted. Ventricles: Unchanged prominence of the ventricular system without ventriculomegaly.. Globes and orbits: No acute abnormality. Bones: No acute osseous finding. Paranasal sinuses: Mild opacification of the ethmoid. Partially seen atelectasis of the right maxilla ry sinus. Mastoid air cells: Unchanged small right mastoid effusion. Soft tissues: Within normal limits IMPRESSION: No acute intracranial hemorrhage, hydrocephalus or herniation. Cerebral volume loss and chronic small vessel ischemic changes. If persistent clinical concern for ac varun ischemia, consider MRI brain without contrast for further evaluation. Electronically signed by: Kalen Gamble DO 09/10/2019 9:30 PM CDT Due to temporary technical issues with the PACS/Fluency reporting system, reports are being signed by the in house radiologist as a courtesy to ensure prompt reporting. The interpreting radiologist is f ully responsible for the content of the report.
--- NOTE | 2019-09-11 11:14 | PN ---
Patient seen and examined. Chart reviewed and case discussed with RN. No family at the bedside. Medications: List reviewed. Physical Examination: Vital Signs: Temperature 97.4, heart rate 85, blood pressure 125/81, respirations 18, O2 at 98% on 2 L via nasal cannula. General: Awake, alert, oriented to self only, not agitated. CV: S1, S2. Regular rate and rhythm. Peripheral pulses present. Respiratory: Moving air well bilaterally. Minimal wheezing. No use of accessory muscles. Gastrointestinal: Abdomen is soft, nontender, nondistended. Positive bowel sounds. No guarding or rigidity. Extremities: No clubbing, cyanosis, or edema. No calf tenderness. Neuro: Cranial nerves 2 through 12 intact grossly. No focal neurological deficit. Speech is normal. Psych: Mood is okay. Affect is flat. Insight and judgment are poor. Laboratory Data: WBC 4.6, H and H of 15 and 43.4, platelets 155, neutrophils 79 %. Sodium 143, potassium 4.4, chloride 109, CO2 of 30, BUN 8, creatinine 0.58, glucose 147, calcium 8.4, magnesium is 1.7. Cultures are pending. Head CT scan is negative for any acute changes. Assessment And Plan: A 58-year-old female with 1. Acute metabolic encephalopathy. The patient is not oriented to place or situation, but does have history of HIV, currently with UTI, much more awake than yesterday per nursing staff. We will contact family or intermediate to assess her baseline. 2. Acute respiratory failure with hypoxia and hypercapnia. Patient currently on supplemental oxygen. PCO2 on ABG was elevated, likely secondary to her COPD , improving. We will wean off oxygen as tolerated. 3. Acute chronic obstructive pulmonary disease exacerbation. We will wean off steroids. Continue breathing treatments and supplemental oxygen as needed. 4. Acute cystitis without hematuria. Urine cultures, currently pending. We will continue Levaquin. 5. Diabetes mellitus type 2, insulin requiring with hyperglycemia. We will continue to monitor blood glucose levels. Continue with sliding scale insulin. 6. HIV, unknown CD4 count. ID has been consulted. Disposition: Continue home medications as appropriate. ID consultation. Head CT is negative, likely discharge in the next 24 to 48 hours depending on clinical response. We will reach out to nursing facility and/or family for further background information on patient's mental status. /MODL Voice ID: [id number] Report ID: [id number] MTDSo
--- NOTE | 2019-09-11 12:14 | EKG ---
Test Date: 2019-09-10 Test Time: 19:39:21 Collection Analyst: NESTOR MEASUREMENT RESULTS: Intervals: Rate: 96 OR: 180 QRSD: 88 QT: 364 QTc: 459 [place]: P: 72 OR: 180 QRS: -65 T: 60 INTERPRETIVE STATEMENTS: Normal sinus rhythm Low voltage QRS Left anterior fascicular block Cannot rule out Inferior infarct (masked by fascicular block?), age undetermined Abnormal ECG Compared to ECG 03/08/2019 21:43:09 Low QRS voltage now present Left anterior fascicular block now present Myocardial infarct finding now present Left-axis deviation no longer present Electronically Signed On 09-11-19 12:10:29 CDT by Garcia Knapp
--- NOTE | 2019-09-11 16:41 | CON ---
History Of Present Illness: This is a 58-year-old halfway resident with significant history of HIV and anti-retroviral therapy, coming in with urinary tract infection, sepsis, and altered mental s tatus. Patient has COPD, schizophrenia, chronic pain syndrome, recurrent urinary tract infections. Past Medical History: As per HPI. Social History: Nonsmoker, nondrinker. Family History: Noncontributory. Medications: Tylenol, Proventil, Lipitor, Tessalon, Cogentin, glucagon, Robitussin, HIV medications, Atrovent, Levaquin, Risperdal. Review of Systems: A 10-point review was performed. Allergies: PENICILLIN AND CODEINE. Physical Examination: General: This is a 58-year-old female, lying in bed, not in any acute cardiopulmonary distress. Vital Signs: Temperature 97.4, pulse 85, respiration 18, blood pressure 125/81. HEENT: Unremarkable. Neck: Supple. Lungs: Basal crackles. Heart: S1 and S2 regular. Abdomen: Soft, nontender. Bowel sounds present. Extremities: No edema. Laboratory Data: Shows WBC 4.6, hemoglobin 15, platelets are 155. Chemistry shows sodium 143, potas sium 4.4, chloride 109, bicarb 30, BUN 8, creatinine 0.58, glucose 147. Chest x-ray; lungs are emphy sematous, lung bases appear hazy. Assessment And Plan: Urosepsis, altered mental status in a halfway resident of 58 years of age with significant history of human immunodeficiency virus, on anti-retroviral medication. We will con tinue Levaquin. Recommend for 5 days repeat urinalysis, and pending culture results, we will follow patient closely. Thank you Dr. Mason and Dr. Brooke for consult. NF/MODL Voice ID: [id number] Report ID: [id number]
[2019-09-11] MEDS: ATORVASTATIN 40 MG TAB PO SCH (20:55)
[2019-09-12] MEDS: IPRATROPIUM BROM 0.5MG/2.5ML NEB SCH ×4 (01:34→19:40)
[2019-09-12] MEDS: ALBUTEROL 2.5 MG/3 ML NEB SOL NEB SCH ×4 (01:34→19:40)
[2019-09-12 05:52] LABS: Absolute Lymphocytes (CBC) 1.9 K/uL (0.7-4.9); Basophils % 0.3 % (0-1.3); Hematocrit 37.1 % (36.0-45.0); Lymphocytes % 39.4 % (15.3-44.8); MPV 9.6 fL (7.6-11.3); RBC Red Blood Cell Count 3.58 M/uL (3.86-4.86)
[2019-09-12 06:03] LABS: BUN Blood Urea Nitrogen 9 mg/dL (7-18); Bicarbonate 29 mmol/L (21-32); Glucose Level 90 mg/dL (74-106); Magnesium 1.8 mg/dL (1.8-2.4); Potassium 3.4 mmol/L (3.5-5.1); Sodium Level 145 mmol/L (136-145)
[2019-09-12] MEDS ORDERED: POTASSIUM CL SA 10 MEQ TAB PO ONE (06:22)
[2019-09-12] MEDS ORDERED: MAGNESIUM SULFATE 1 gm IVPB 1 GM/100 ML BAG IV ONE (06:23)
[2019-09-12] MEDS: INSULIN -REGULAR HUMAN 50 UNIT/0.5 ML ML SQ SCH ×4 (07:30→21:00)
[2019-09-12] MEDS: ENOXAPARIN 40 MG/0.4 ML SQ SCH (08:46)
[2019-09-12] MEDS: DIVALPROEX NA 125 MG CAP PO SCH ×2 (08:47→21:42)
[2019-09-12] MEDS: BENZTROPINE 1 MG TAB PO SCH ×2 (08:47→21:42)
[2019-09-12] MEDS: OXcarbazepine 150 MG TAB PO SCH ×2 (08:47→21:42)
[2019-09-12] MEDS: RISPERIDONE 1 MG TABLET PO SCH (08:48)
[2019-09-12] MEDS: ABACAVIR PO SCH (08:49)
[2019-09-12] MEDS: LAMIVUDI PO SCH (08:49)
[2019-09-12] MEDS: DOLUTEGRAVIR PO SCH (08:49)
[2019-09-12] MEDS: DULERA 100/5 (MOMETASONE/FORMOTEROL) INHALER IH SCH ×2 (08:50→21:00)
[2019-09-12] MEDS: HOME MED 1 EA UNK (Cholecalciferol (Vitamin D3) [Vitamin D3] 2,000 UNIT) PO SCH (08:50)
[2019-09-12] MEDS: HOME MED 1 EA UNK (Duloxetine Hcl [Cymbalta] 60 MG) PO SCH (08:50)
[2019-09-12] MEDS: HOME MED 1 EA UNK (Aspirin [Aspirin Ec 325 Mg] 325 MG) PO SCH (08:50)
[2019-09-12] MEDS: ACIDOPH PARACASEI B LACTIS PO SCH (08:51)
[2019-09-12] MEDS: ILOPERIDONE 8 MG PO SCH ×3 (08:51→21:00)
[2019-09-12] MEDS ORDERED: VANCOMYCIN/NS 1 gm 1 GM/250 ML BAG IVPB SCH (10:30)
[2019-09-12] MEDS ORDERED: VANCOMYCIN 2 GM in NA CHLORIDE 0.9% 500 ML IVPB ONE (11:00)
--- NOTE | 2019-09-12 11:33 | PN ---
Patient was seen and examined. Chart reviewed and case discussed with RN and Dr. Damian. Patient seems to be much more awake and alert, more responsive. Today, medications were reviewed. Physical Examination: Vital Signs: Temperature 98.3, heart rate 84, blood pressure 109/58, respirations 17, O2 at 93% on room air. General: Awake, alert, oriented to self and place but not correct year. Does not appear to be any acute distress. CV: S1, S2. Regular rate and rhythm. Peripheral pulses present. Respiratory: Moving air well bilaterally. No wheezing or stridor. No use of accessory muscles. Gastrointestinal: Abdomen is soft, nontender, nondistended. Positive bowel sounds. Extremities: No clubbing, cyanosis, or edema. Neuro: Follows commands. Nonfocal. Speech is normal. Laboratory Data: Sodium 145, potassium 3.4, chloride 112, CO2 of 29, BUN 9, creatinine 0.59, glucose 90, calcium 8.7, magnesium 1.8. WBC 4.7. H and H 12.9 and 37.1, platelets 154. Urine culture growing out 3+ gram-negative rods. ID and sensitivity pending. Blood cultures growing out gram-positive cocci in clusters, 3/3 bottles. Assessment And Plan: A 58-year-old female with; 1. Acute metabolic encephalopathy oriented x2, likely related to urinary tract infection and now with bacteremia improving, less agitated, more awake now. 2. Acute respiratory failure with hypoxia and hypercapnia, currently on supplemental oxygen likely secondary to chronic obstructive pulmonary disease. Wean off oxygen as tolerated. 3. Acute chronic obstructive pulmonary disease exacerbation. Wean off steroids. Continue nebulizer treatments improving. 4. Acute cystitis without hematuria secondary to gram-negative rods. Culture , ID and sensitivity are pending. We will continue IV antibiotics. 5. Bacteremia secondary to gram-positive cocci in clusters. We will add vancomycin until final culture results are obtained. 6. Diabetes mellitus type 2, insulin requiring with hyperglycemia. We will continue Accu-Cheks and sliding scale insulin, stable. 7. HIV. Unknown CD4 count. Appreciate ID input. Plan: Follow up on final culture results depending on ID and sensitivity. Likely discharge in next 24 hours on oral antibiotics. If the patient has resistant bacteremia, may need IV antibiotics. /JOHN Voice ID: [id number] Report ID: [id number] MTDD
[2019-09-12] MEDS: NA CHLORIDE 0.9% 1,000 ML IV SCH (13:57)
--- NOTE | 2019-09-12 16:48 | PN ---
Subjective: The patient is lying in bed. Denies any problems at this time. Objective: Vital Signs: Temperature 98, pulse 100, respirations 17, blood pressure 125/63. No blanc ges in examination. Laboratory Data: WBC 4.7, hemoglobin 12.9, platelets 154. Chemistry shows sodium 145, potassium 3.4 , chloride 112, bicarb 29, BUN 9, creatinine 0.5, glucose 90. No new urinalysis available at this ti wa. Micro Data: Blood cultures are negative for 24 hours. Urine cultures are growing 3+ gram-negative r ods, most likely E coli or pseudomonas. The patient is currently being treated with Levaquin and van comycin. Assessment And Plan: Urinary tract infection. We will recommend to discontinue vancomycin. Gram st ain is showing gram-positive cocci in cluster, coag-negative, most likely contaminant versus bacterem ia. The patient is doing clinically well. We will recommend to stop vancomycin and continue Levaqui n, total course of 2 weeks, can be switched to oral on discharge. We will follow the patient as need ed. NF/MODL Voice ID: [id number] Report ID: [id number]
[2019-09-12] MEDS: LACTOBACILLUS/ACIDOPHILUS TAB PO SCH (17:44)
[2019-09-12] MEDS: ATORVASTATIN 40 MG TAB PO SCH (21:42)
[2019-09-12] MEDS: VANCOMYCIN 1.5 GM in NA CHLORIDE 0.9% 500 ML IVPB SCH (21:42)
[2019-09-13] MEDS: Levofloxacin 750mg IV 750 MG/150 ML BAG IV SCH (00:07)
[2019-09-13] MEDS: NA CHLORIDE 0.9% 1,000 ML IV SCH ×2 (00:20→17:01)
[2019-09-13] MEDS: ALBUTEROL 2.5 MG/3 ML NEB SOL NEB SCH ×4 (02:15→20:00)
[2019-09-13] MEDS: IPRATROPIUM BROM 0.5MG/2.5ML NEB SCH ×4 (02:15→20:00)
[2019-09-13 06:39] LABS: BUN Blood Urea Nitrogen 6 mg/dL (7-18); Bicarbonate 27 mmol/L (21-32); Glucose Level 127 mg/dL (74-106); Magnesium 1.8 mg/dL (1.8-2.4); Potassium 3.4 mmol/L (3.5-5.1); Sodium Level 142 mmol/L (136-145)
[2019-09-13] MEDS: INSULIN -REGULAR HUMAN 50 UNIT/0.5 ML ML SQ SCH ×4 (07:30→21:00)
[2019-09-13] MEDS ORDERED: MAGNESIUM SULFATE 1 gm IVPB 1 GM/100 ML BAG IV ONE (08:00)
[2019-09-13] MEDS: ENOXAPARIN 40 MG/0.4 ML SQ SCH (09:00)
[2019-09-13] MEDS: ABACAVIR PO SCH (09:00)
[2019-09-13] MEDS: LAMIVUDI PO SCH (09:00)
[2019-09-13] MEDS: DULERA 100/5 (MOMETASONE/FORMOTEROL) INHALER IH SCH ×2 (09:00→21:00)
[2019-09-13] MEDS ORDERED: Meropenem 1000 MG/VIAL IV SCH (09:00)
[2019-09-13] MEDS ORDERED: POTASSIUM CL SA 10 MEQ TAB PO ONE (09:00)
[2019-09-13] MEDS: ILOPERIDONE 8 MG PO SCH ×3 (09:00→21:00)
[2019-09-13] MEDS: DOLUTEGRAVIR PO SCH (09:00)
[2019-09-13] MEDS: OXcarbazepine 150 MG TAB PO SCH ×2 (09:25→21:13)
[2019-09-13] MEDS: ASPIRIN EC 325 MG TABLET PO SCH (09:26)
[2019-09-13] MEDS: RISPERIDONE 1 MG TABLET PO SCH (09:26)
[2019-09-13] MEDS: DULOXETINE 30 MG CAP PO SCH (09:26)
[2019-09-13] MEDS: BENZTROPINE 1 MG TAB PO SCH ×2 (09:26→21:13)
[2019-09-13] MEDS: VITAMIN D 1000 UNIT TAB PO SCH (09:26)
[2019-09-13] MEDS: LACTOBACILLUS/ACIDOPHILUS TAB PO SCH ×2 (09:26→16:57)
[2019-09-13] MEDS: DIVALPROEX NA 125 MG CAP PO SCH ×2 (09:26→21:13)
[2019-09-13] MEDS: VANCOMYCIN 1.5 GM in NA CHLORIDE 0.9% 500 ML IVPB SCH (10:15)
[2019-09-13] MEDS: Meropenem 1,000 MG in NA CHLORIDE 0.9% 100 ML IV SCH ×2 (10:16→16:57)
--- NOTE | 2019-09-13 14:13 | RAD REPORT ---
EXAM DESCRIPTION: RAD - Chest Single View - 09/13/2019 1:44 pm CLINICAL HISTORY: PICC line placement COMPARISON: September 10 FINDINGS: Portable chest was obtained following placement of a right upper extremity PICC line. The catheter tip is in the distal SVC.
[2019-09-13] MEDS ORDERED: SODIUM CHLORIDE 0.9% 10ML INJ IV PRN (18:38)
[2019-09-13] MEDS ORDERED: ONDANSETRON 4 MG/2 ML VIAL IV PRN (18:42)
--- NOTE | 2019-09-13 19:43 | RAD REPORT ---
EXAM DESCRIPTION: CT - Chest Abd Pelvis Wo Con - 09/13/2019 7:00 pm CLINICAL HISTORY: Chest and abdominal pain COMPARISON: 2018 TECHNIQUE: Computed axial tomography of the chest, abdomen and pelvis was obtained. Oral contrast wa s given. IV contrast was not requested. All CT scans are performed using dose optimization technique as appropriate and may include automated exposure control or mA/KV adjustment according to patient size. FINDINGS: The evaluation of mediastinum, leydi, vessels and solid organs is limited secondary to the lack of IV contrast administration . Some images are degraded by motion artifact No mediastinal or hilar lymphadenopathy is seen. The wall of the distal esophagus appears thickened Mild bilateral pleural thickening. A pericardial effusion is not seen. The lungs are essentially clear The liver, spleen, pancreas, adrenals and kidneys appear grossly normal There is no evidence of diverticulitis. Air bubble within bladder Small umbilical hernia IMPRESSION: Thickening of the wall of the distal esophagus may indicate inflammation Air bubble within the bladder may be secondary to recent instrumentation. Infection can also result t his appearance
[2019-09-13] MEDS ORDERED: PANTOPRAZOLE 40 MG INJ IVP SCH (20:00)
[2019-09-13 20:01] LABS: Basophils % 0.3 % (0-1.3); Hematocrit 43.6 % (36.0-45.0); Lymphocytes % 13.2 % (15.3-44.8); MPV 9.5 fL (7.6-11.3); RBC Red Blood Cell Count 4.17 M/uL (3.86-4.86)
--- NOTE | 2019-09-13 20:33 | PN ---
Subjective: Patient lying in bed. No new acute event. Chart reviewed. Objective: Vital Signs: Temperature 98, pulse 70, respirations 16, blood pressure 132/63. HEENT: Unremarkable. Neck: Supple. Lungs: Basal crackles. Heart: S1, S2 regular. Abdomen: Soft, nontender. Bowel sounds present. Extremities: No edema. Laboratory Data: No new labs today. WBC 4.7 from yesterday. Chemistry done today; sodium 132, pota ssium 3.4, chloride 110, bicarb 27, BUN 6, creatinine 0.6, glucose 127. Assessment And Plan: Urinary tract infection and bacteremia. Continue supportive care and antibioti c. We will follow the patient as needed. Patient is currently being treated with meropenem and vanc omycin. Plan to be discharged to skilled facility. NF/MODL Voice ID: [id number] Report ID: [id number]
[2019-09-13] MEDS: ATORVASTATIN 40 MG TAB PO SCH (21:13)
[2019-09-14] MEDS: Meropenem 1,000 MG in NA CHLORIDE 0.9% 100 ML IV SCH ×3 (00:20→15:42)
[2019-09-14] MEDS: IPRATROPIUM BROM 0.5MG/2.5ML NEB SCH ×3 (02:00→14:02)
[2019-09-14] MEDS: ALBUTEROL 2.5 MG/3 ML NEB SOL NEB SCH ×3 (02:00→14:02)
[2019-09-14] MEDS: NA CHLORIDE 0.9% 1,000 ML IV SCH ×2 (04:00→16:18)
--- NOTE | 2019-09-14 04:50 | DS ---
Date of service 09/13/19 Procedure: PICC line placement. Consultants: Dr. Damian with Infectious Disease. Admitting Diagnoses: 1. Acute encephalopathy. 2. Acute respiratory failure with hypoxia and hypercapnia. 3. Acute chronic obstructive pulmonary disease exacerbation. 4. Urinary tract infection. 5. Diabetes mellitus, type 2, insulin requiring with hyperglycemia. 6. Human immunodeficiency virus. Discharge Diagnoses: 1. Acute metabolic encephalopathy. 2. Acute respiratory failure with hypoxia and hypercapnia. 3. Acute chronic obstructive pulmonary disease exacerbation, resolved. 4. Acute cystitis without hematuria secondary to extended-spectrum beta- lactamase Escherichia coli. 5. Bacteremia. 6. Diabetes mellitus type 2, insulin requiring with hyperglycemia. 7. Human immunodeficiency virus. 8. Hypokalemia and also hypomagnesemia. Hospital Course: Patient is a 58-year-old female with past medical history of HIV, on antiretrovirals; COPD; schizophrenia; chronic pain syndrome; diabetes; resident of nursing facility, comes in due to altered mental status. Patient was found to have mild CO2 retention and hypoxia. An x-ray was consistent with emphysematous changes. Patient was thought to have COPD exacerbation. She was also found to have UTI and she was started on IV Rocephin. Her urine cultures grew out E coli, ESBL producing. She was switched over to meropenem. PICC line was placed and antibiotic arrangements for long-term were made at the nursing facility for minimum of 2 weeks. She will need weekly CBC, CRP, ESR, and CMP along with a PICC line nursing care and removal. Once antibiotics have been completed, she will need to have a repeat urine culture once antibiotic treatment has been completed. Her blood cultures initially grew out coagulase- negative staph, however, was 3/4 bottles. Therefore, bacteremia was suspected, although contamination from skin organism may be possible, 3/4 bottles may not be a contaminant. Therefore, she was treated prophylactically with vancomycin. Final culture results are pending at the time of this dictation. We will follow up. Patient did have some mild electrolyte abnormalities, which were corrected. Overall, patient's respiratory status improved. Her confusion also resolved. She was back to her baseline. Her head CT scan was negative for any acute changes. Patient's CT scan did show cerebral volume loss and chronic small-vessel ischemic changes. Patient was also evaluated by Infectious Disease , Dr. Damian. Patient's white blood cell count remained stable. She did have some microcytosis without significant anemia. Vitamin B12 level was normal. Patient was then back to her baseline. After antibiotic arrangements are made, the patient will be discharged to nursing facility in a stable condition. Patient will need to follow up with her PCP in 2 to 3 days. Follow up with ID, Dr. Damian in 2 weeks. Return to ER for worsening condition. Diet: Diabetic diet. Activity: As tolerated. Medications: As per medication reconciliation list. Physical Examination: General: Awake, alert, and oriented x3. No acute distress. CV: S1, S2. Respiratory: Moving air well bilaterally. Abdomen: Soft, nontender, nondistended. Positive bowel sounds. Extremities: No clubbing, cyanosis, or edema. Neurologic: Nonfocal. Patient is hard of hearing. Time Spent: Total time spent discharging the patient was 36 minutes. ADDENDUM: Patients IV abx not set up therefore was not discharged. /JOHN Voice ID: [id number] Report ID: [id number] ELIOT
[2019-09-14 06:10] LABS: BUN Blood Urea Nitrogen 10 mg/dL (7-18); Bicarbonate 28 mmol/L (21-32); Glucose Level 128 mg/dL (74-106); Magnesium 1.9 mg/dL (1.8-2.4); Potassium 3.7 mmol/L (3.5-5.1); Sodium Level 142 mmol/L (136-145)
[2019-09-14] MEDS: INSULIN -REGULAR HUMAN 50 UNIT/0.5 ML ML SQ SCH ×3 (07:30→16:04)
[2019-09-14] MEDS: ILOPERIDONE 8 MG PO SCH ×2 (09:00→14:00)
[2019-09-14] MEDS: ABACAVIR PO SCH (09:00)
[2019-09-14] MEDS ORDERED: POTASSIUM CL SA 10 MEQ TAB PO ONE (09:00)
[2019-09-14] MEDS: DOLUTEGRAVIR PO SCH (09:00)
[2019-09-14] MEDS: LAMIVUDI PO SCH (09:00)
[2019-09-14] MEDS: ASPIRIN EC 325 MG TABLET PO SCH (09:00)
[2019-09-14] MEDS: LACTOBACILLUS/ACIDOPHILUS TAB PO SCH ×2 (09:04→16:03)
[2019-09-14] MEDS: VITAMIN D 1000 UNIT TAB PO SCH (09:04)
[2019-09-14] MEDS: DULOXETINE 30 MG CAP PO SCH (09:07)
[2019-09-14] MEDS: DIVALPROEX NA 125 MG CAP PO SCH (09:08)
[2019-09-14] MEDS: BENZTROPINE 1 MG TAB PO SCH (09:08)
[2019-09-14] MEDS: RISPERIDONE 1 MG TABLET PO SCH (09:08)
[2019-09-14] MEDS: OXcarbazepine 150 MG TAB PO SCH (09:10)
[2019-09-14] MEDS: DULERA 100/5 (MOMETASONE/FORMOTEROL) INHALER IH SCH (09:13)
[2019-09-14] MEDS ORDERED: SMZ./TMP. 800/160 MG TABLET PO SCH (10:36)
--- NOTE | 2019-09-14 14:20 | PN ---
Date of Progress Note: 09/14/2019 Subjective: Patient is seen and examined, chart reviewed, and case discussed with RN and Dr. Damian. The patient did not have IV antibiotics set up yesterday and was unable to be discharged. She did have episode of nausea and vomiting with coffee-ground like emesis. Patient is able to tolerate diet today. No further episodes. Medications: List reviewed. Physical Examination: Vital Signs: Temperature 98.5, heart rate 102, blood pressure 112/67, respirations 16, O2 96% on room air. General: Awake, alert, oriented x3. Appears older than stated age female without any acute distress. CV: S1, S2. Sinus tachycardia. Peripheral pulses present. Respiratory: Moving air well bilaterally. No wheezing or stridor. No use of accessory muscles. Gastrointestinal: Abdomen is soft, nontender, nondistended. Positive bowel sounds. Extremities: No clubbing, cyanosis, or edema. Neurologic: Nonfocal. Laboratory Data: Sodium 142, potassium 3.7, chloride 110, CO2 of 28, BUN 10, creatinine 0.6, glucose 128, calcium 8.5, magnesium 1.8. CBC is pending. Lactate was 0.9 yesterday. Cultures, urine culture growing out ESBL E coli. Blood cultures growing out Staph hominis, 3/4 bottles, sensitive to Bactrim and vancomycin. CT scan of the chest, abdomen, and pelvis shows thickening of the wall of the distal esophagus, may indicate inflammation. Air bubble within the bladder may be secondary to recent instrumentation, infection can also result in this appearance. Assessment And Plan: A 58-year-old female with. 1. Acute metabolic encephalopathy, resolved. 2. Acute respiratory failure with hypoxia and hypercapnia, resolved. 3. Acute chronic obstructive pulmonary disease exacerbation, resolved. 4. Acute cystitis without hematuria secondary to extended-spectrum beta- lactamase Escherichia coli, resolved. 5. Bacteremia secondary to Staphylococcus hominis. 6. Diabetes mellitus type 2, insulin requiring with hyperglycemia. 7. Non-intractable nausea and vomiting, resolved. 8. Hypokalemia, corrected. 9. Hypomagnesemia, corrected. 10. Human immunodeficiency virus. Plan: Discharge back to nursing facility once IV antibiotics have been arranged. Patient will be on meropenem for 2 weeks and oral Bactrim for bacteremia for 2 weeks. SA/MODL Voice ID: [id number] Report ID: [id number] MTDD
[2019-09-14 17:21] VITALS: O2SAT 93
[2019-09-14 18:16] VITALS: BP 114/65; TEMP 97.4
== END 2019-09-14 17:25 | DRG 689 ==
LOC: ER 19:17 → ERHOLD 22:44 → 2ND 23:10
PROVIDERS: ADMIT Internal Medicine; ATTEND Internal Medicine
PROC: 02HV33Z Insertion of Infusion Device into Superior Vena Cava, Percutaneous Approach (ICD-10-PCS; principal; 2019-09-13)
DX: N30.90 Cystitis, unspecified without hematuria (principal); G93.41 Metabolic encephalopathy; J96.02 Acute respiratory failure with hypercapnia; J96.01 Acute respiratory failure with hypoxia; R78.81 Bacteremia; J44.1 Chronic obstructive pulmonary disease with (acute) exacerbation; Z16.12 Extended spectrum beta lactamase (ESBL) resistance; B96.20 Unspecified Escherichia coli [E. coli] as the cause of diseases classified elsewhere; E11.65 Type 2 diabetes mellitus with hyperglycemia; Z21 Asymptomatic human immunodeficiency virus [HIV] infection status; E87.6 Hypokalemia; E83.42 Hypomagnesemia; F20.9 Schizophrenia, unspecified; G89.4 Chronic pain syndrome; Z88.0 Allergy status to penicillin
CPT/HCPCS: 36415; 51702; 70450; 71045; 71250; 74176; 80048; 80076; 80202; 81003; 81015; 82140; 82550; 82607; 82805; 82962; 83605; 83690; 83735; 84100; 84132; 84145; 84484; 85025; 85610; 85730; 87040; 87077; 87086; 87088; 87186; 87205; 93005; 94760; 96361; 96365; 96366; 97161; 97530; 99285; C9113; J0696; J1650; J2405; J2920; J3475; J7030; J7040; J7606

== ENCOUNTER 2019-09-21 13:48 | Inpatient (IN) | payer OTHER ==
[2019-09-21] MEDS ORDERED: NA CHLORIDE 0.9% 1,000 ML ONE ×2 (13:59→15:28)
[2019-09-21 14:21] LABS: Absolute Lymphocytes (CBC) 1.6 K/uL (0.7-4.9); Basophils % 0.6 % (0-1.3); Hematocrit 38.9 % (36.0-45.0); Lymphocytes % 23.8 % (15.3-44.8); MPV 9.4 fL (7.6-11.3); RBC Red Blood Cell Count 3.77 M/uL (3.86-4.86)
[2019-09-21 14:32] LABS: Protime INR 0.95
[2019-09-21 14:47] LABS: ALT/SGPT 18 U/L (12-78); AST/SGOT 22 U/L (15-37); Albumin 3.1 g/dL (3.4-5.0); Alkaline Phosphatase 91 U/L (45-117); BUN Blood Urea Nitrogen 11 mg/dL (7-18); Bicarbonate 27 mmol/L (21-32); Bilirubin Direct < 0.1 mg/dL (0-0.2); Bilirubin Total 0.2 mg/dL (0.2-1.0); CKMB Creatine Kinase MB 8.1 ng/mL (0.3-3.6); Creatine Phosphokinase 639 U/L (26-192); Glucose Level 104 mg/dL (74-106); Lipase 51 U/L (73-393); Protein, Total 6.4 g/dL (6.4-8.2); Sodium Level 140 mmol/L (136-145); Troponin (Emerg Dept Use Only) < 0.02 ng/mL (0.0-0.045)
[2019-09-21] MEDS ORDERED: VANCOMYCIN/NS 1 gm 1 GM/250 ML BAG IV ONE (15:00)
[2019-09-21] MEDS ORDERED: CEFEPIME/SWI 2gm 2 GM/20 ML SYR IV ONE (15:00)
[2019-09-21 15:08] LABS: Urine Blood NEGATIVE (NEG); Urine Glucose NEGATIVE (NEG); Urine Protein NEGATIVE (NEG); Urine Specific Gravity 1.025 (1.005-1.030)
[2019-09-21 15:18] LABS: Urine Bacteria <20 /HPF (<20); Urine Culture Reflex Order REFLEXED; Urine RBC <5 /HPF (NONE SEEN); Urine Yeast MANY (NONE SEEN); Urine Yeast with Hyphae PRESENT
[2019-09-21] MEDS ORDERED: NA CHLORIDE 0.9% 500 ML ONE (15:28)
[2019-09-21 15:36] LABS: Arterial Blood Carboxyhemoglob 1.3 % (0-1.5); Blood Gas Oxyhemoglobin 91.1 % (94-97); Blood O2 Saturation 93.1 % (92-98.5)
--- NOTE | 2019-09-21 15:36 | RAD REPORT ---
EXAM DESCRIPTION: [place] Single View09/21/2019 2:43 pm CLINICAL HISTORY: Coronary arterial disease. Alteration of consciousness COMPARISON: September 13, 2019 FINDINGS: The lungs appear clear of acute infiltrate. The heart is normal size. PICC line has tip i n the superior vena cava Mild pleural thickening IMPRESSION: No acute abnormalities displayed
--- NOTE | 2019-09-21 16:32 | EDPHYS ---
Physician Documentation [facility] Name: Lucia Arias Age: 58 yrs Sex: Female : 1960 Arrival Date: 09/21/2019 Time: 13:52 Bed 2 Private MD: ED Physician Jose Simms HPI: 09/21 17:15 This 58 yrs old Female presents to ER via EMS with complaints of Altered kdr Mental Status. 17:15 The patient presents with confusion, decreased mental status, decreased responsiveness. kdr Onset: The symptoms/episode began/occurred this morning, at an unknown time. Possible causes: CVA or TIA, sepsis, medication error. Current symptoms: In the emergency department the patient's symptoms are unchanged from the initial presentation. Patient's baseline: Neuro: alert and fully oriented, Motor: no deficits, Ambulation: walks without assistance, Speech: normal for age, The patient has a previous history of Psych. The patient has experienced similar episodes in the past, a few times. The patient has not recently seen a physician. Historical: - Allergies: 14:13 Codeine; aj1 14:13 Demerol; aj1 14:13 PENICILLINS; aj1 14:13 Sulfa (Sulfonamide Antibiotics); aj1 - Home Meds: 14:13 aspirin 325 mg Oral tab 1 tab once daily [Active]; Bactrim DS 800-160 mg Oral tab 1 tab aj1 2 times per day [Active]; benztropine 1 mg Oral tab 1 tab 2 times per day [Active]; Cymbalta 60 mg Oral cpDR 1 cap once daily [Active]; Depakote Sprinkles 125 mg Oral cpSP 2 caps every 12 hours [Active]; Fanapt 8 mg Oral tab 1 tab 2 times per day [Active]; gabapentin 300 mg Oral cap 1 cap 3 times per day [Active]; Humalog 100 unit/mL Sub-Q crtg sliding scale ac hs [Active]; Incruse Ellipta 62.5 mcg/actuation inhalation dsdv 1 puff once daily [Active]; Lantus 100 unit/mL Sub-Q soln 32 unit nightly [Active]; Lipitor 40 mg Oral tab 1 tab nightly [Active]; Merrem 1 gram intravenous solr every 8 hours [Active]; Risperdal 1 mg Oral tab 1 tab once daily [Active]; tramadol 50 mg Oral tab 1 tab q6h prn [Active]; tramadol 300 mg Oral Tb24 1 tab once daily [Active]; Trileptal 150 mg Oral tab 1 tabs 2 times per day [Active]; Triumeq 600-50-300 mg Oral tab 1 tab once daily [Active]; Vitamin D Oral 2000 unit daily [Active]; fluticasone-salmeterol inhalation 2 times per day [Active]; albuterol sulfate 2.5 mg /3 mL (0.083 %) Nebulizer nebu 3 mL as needed [Active]; - PMHx: 14:13 HIV; COPD; Pneumonia; UTI; Diabetes - IDDM; Chronic pain; Cellulitis; atherosclerosis; aj1 GERD; pulmonary edema; Difficulty walking; muscle weakness; vitamin d deficiency; neuropathy; Hyperlipidemia; Depression; Anxiety; Schizophrenia; Angina; Bipolar disorder; CAD; LACK OF COORDINATION; - Immunization history:: Adult Immunizations up to date. - Social history:: Smoking status: unknown. - Ebola Screening: : Patient denies travel to an Ebola-affected area in the 21 days before illness onset. ROS: 17:15 Constitutional: Unobtainable due to changed kdr 17:15 Unable to obtain ROS due to altered mental status, obtunded state. Exam: 17:15 Constitutional: This is a well developed, well nourished patient who is poorly kdr responsive and not following commands no acute distress. Head/Face: Normocephalic, atraumatic. Eyes: Pupils equal round and reactive to light, extra-ocular motions intact. Lids and lashes normal. Conjunctiva and sclera are non-icteric and not injected. Cornea within normal limits. Periorbital areas with no swelling, redness, or edema. Neck: Trachea midline, no thyromegaly or masses palpated, and no cervical lymphadenopathy. Supple, full range of motion without nuchal rigidity, or vertebral point tenderness. No Meningismus. Chest/axilla: Normal chest wall appearance and motion. Nontender with no deformity. No lesions are appreciated. Cardiovascular: Regular rate and rhythm with a normal S1 and S2. No gallops, murmurs, or rubs. Normal PMI, no JVD. No pulse deficits. Respiratory: Lungs have equal breath sounds bilaterally, clear to auscultation and percussion. No rales, rhonchi or wheezes noted. No increased work of breathing, no retractions or nasal flaring. Abdomen/GI: Soft, non-tender, with normal bowel sounds. No distension or tympany. No guarding or rebound. No evidence of tenderness throughout. Back: No spinal tenderness. No costovertebral tenderness. Full range of motion. Skin: Warm, dry with normal turgor. Normal color with no rashes, no lesions, and no evidence of cellulitis. MS/ Extremity: Pulses equal, no cyanosis. Neurovascular intact. Full, normal range of motion. Psych: Awake, alert, with orientation to person, place and time. Behavior, mood, and affect are within normal limits. Vital Signs: 13:52 BP 69 / 52; Pulse 105; Resp 16; Pulse Ox 86% on R/A; aj1 13:53 Pulse Ox 96% on 4 lpm NC; aj1 13:55 BP 82 / 59; aj1 14:02 Weight 78.93 kg (R); aj1 14:02 Temp 97.0(TE); aj1 14:13 BP 90 / 66; Pulse 97; Resp 17; Pulse Ox 98% on R/A; aj1 14:43 BP 79 / 60; Pulse 97; Resp 15; Temp 97.5; Pulse Ox 96% on 4 lpm NC; aj1 15:00 BP 81 / 63; Pulse 96; Resp 15; Temp 97.4; Pulse Ox 96% on 4 lpm NC; aj1 15:15 BP 78 / 62; Pulse 92; Resp 17; Temp 97.0; Pulse Ox 98% on 4 lpm NC; aj1 15:30 BP 92 / 58; Pulse 89; Resp 16; Temp 96.5; Pulse Ox 98% on 4 lpm NC; aj1 16:00 BP 110 / 70; Pulse 70; Resp 18; Temp 96.8; Pulse Ox 98% on 4 lpm NC; aj1 16:30 BP 83 / 55; Pulse 90; Resp 18; Pulse Ox 99% on 4 lpm NC; aj1 16:51 BP 102 / 78; Pulse 92; Resp 18; Temp 96.6(C); Pulse Ox 95% on 4 lpm NC; aj1 17:02 BP 97 / 63; Pulse 88; Resp 16; Temp 96.5; Pulse Ox 98% on 4 lpm NC; aj1 17:22 BP 91 / 81; Pulse 87; Resp 18; Temp 96.9(C); Pulse Ox 96% on 4 lpm NC; aj1 18:00 BP 94 / 75; Pulse 88; Resp 20; Temp 97.6; Pulse Ox 98% on 4 lpm NC; aj1 MDM: 16:31 Patient medically screened. kdr 17:15 Data reviewed: vital signs, nurses notes, lab test result(s), radiologic studies. kdr Counseling: I had a detailed discussion with the patient and/or guardian regarding: the historical points, exam findings, and any diagnostic results supporting the discharge/admit diagnosis, lab results, radiology results, the need for further work-up and treatment in the hospital. 09/21 13:54 Order name: Basic Metabolic Panel; Complete Time: 14:56 kdr 09/21 13:54 Order name: Blood Culture Adult (2) kdr 09/21 13:54 Order name: CBC with Diff; Complete Time: 14:56 kdr 09/21 13:54 Order name: Ckmb; Complete Time: 14:56 kdr 09/21 13:54 Order name: CPK; Complete Time: 14:56 kdr 09/21 13:54 Order name: Lactate; Complete Time: 14:56 kdr 09/21 13:54 Order name: LFT's; Complete Time: 14:56 kdr 09/21 13:54 Order name: Lipase; Complete Time: 14:56 kdr 09/21 13:54 Order name: Procalcitonin; Complete Time: 16:05 kdr 09/21 13:54 Order name: Protime (+inr); Complete Time: 16:05 kdr 09/21 13:54 Order name: Ptt, Activated; Complete Time: 16:05 kdr 09/21 13:54 Order name: Troponin (emerg Dept Use Only); Complete Time: 14:56 kdr 09/21 13:54 Order name: Urine Microscopic Only; Complete Time: 16:05 kdr 09/21 14:08 Order name: Glucose, Ancillary Testing; Complete Time: 14:56 EDMS 09/21 13:54 Order name: Chest Single View XRAY; Complete Time: 16:05 kdr 09/21 13:54 Order name: Accucheck; Complete Time: 14:02 kdr 09/21 13:54 Order name: Cardiac monitoring; Complete Time: 14:02 kdr 09/21 13:54 Order name: EKG - Nurse/Tech; Complete Time: 14:23 kdr 09/21 13:55 Order name: IV Saline Lock - Large Bore; Complete Time: 14:02 kdr 09/21 13:55 Order name: Labs collected and sent; Complete Time: 14:02 kdr 09/21 13:55 Order name: O2 Per Protocol; Complete Time: 14:02 kdr 09/21 14:04 Order name: EKG Electrocardiogram; Complete Time: 14:05 EDTX 09/21 14:39 Order name: Urine Dipstick--Ancillary (enter results); Complete Time: 16:05 eb 09/21 15:06 Order name: ABG kdr 09/21 15:19 Order name: Urine Culture [facility] 09/21 16:04 Order name: CT Head Brain wo Cont [facility] 09/21 16:04 Order name: CT Chest, Abdomen, Pelvis - W/Contrast kdr 09/21 13:55 Order name: O2 Sat Monitoring; Complete Time: 14:02 kdr 09/21 13:55 Order name: Urine Dipstick-Ancillary (obtain specimen); Complete Time: 14:42 kdr Administered Medications: 13:58 Drug: NS 0.9% (30 ml/kg) 30 ml/kg Route: IV; Rate: bolus; Site: right [facility]; [facility] 18:02 Follow up: IV Status: Completed infusion; IV Intake: 2300ml [facility] 15:00 Drug: Cefepime 2 grams Route: IVPB; Rate: 200 ml/hr; Infused Over: 30 mins; Site: right [address]; 15:05 Follow up: IV Status: Completed infusion; IV Intake: 10ml [facility] 15:05 Drug: vancoMYCIN 1 grams Route: IVPB; Infused Over: 2 hrs; Site: right [facility]; [facility] 17:15 Follow up: IV Status: Completed infusion; IV Intake: 250ml [facility] Disposition: 09/21/19 16:31 Hospitalization ordered by Ge Mixon for Inpatient Admission. Preliminary diagnosis is Altered mental status, unspecified. - Bed requested for Intensive Care Unit. - Status is Inpatient Admission. aj1 - Condition is Serious. - Problem is new. - Symptoms have improved. UTI on Admission? No Signatures: Dispatcher [employer] EDMS Melida Valle RN RN aj1 Moon Rodriguez RN RN dw Jose Simms MD MD kdr Corrections: (The following items were deleted from the chart) 17:05 16:31 Hospitalization Ordered by Ge Mixon DO for Inpatient Admission. Preliminary dw diagnosis is Altered mental status, unspecified. Bed requested for Intensive Care Unit. Status is Inpatient Admission. Condition is Serious. Problem is new. Symptoms have improved. UTI on Admission? No. kdr 18:44 17:05 09/21/2019 16:31 Hospitalization Ordered by Ge Mixon DO for Inpatient aj1 Admission. Preliminary diagnosis is Altered mental status, unspecified. Bed requested for Intensive Care Unit. Status is Inpatient Admission. Condition is Serious. Problem is new. Symptoms have improved. UTI on Admission? No. dw
--- NOTE | 2019-09-21 16:32 | ER ---
Nurse's Notes [facility] Name: Lucia Arias Age: 58 yrs Sex: Female : 1960 Arrival Date: 09/21/2019 Time: 13:52 Bed 2 Private MD: Diagnosis: Altered mental status, unspecified Presentation: 09/21 13:52 Acuity: LATONYA 2 aj1 13:53 Presenting complaint: EMS states: [facility] staff at [facility] noticed some altered aj1 mental status yesterday evening. Today she seemed worse, so they called EMS. BP was 86/52 upon EMS arrival. Patient appears drowsy, oriented to person, will not answer any other questions. [facility] staff reports that patient was recently discharged from this facility after being hospitalized for UTI. Transition of care: patient was not received from another setting of care. Onset of symptoms was September 20, 2019. 13:53 Method Of Arrival: EMS: [facility] aj1 14:03 Risk Assessment: Do you want to hurt yourself or someone else? Patient reports no aj1 desire to harm self or others. Initial Sepsis Screen: Does the patient meet any 2 criteria? Systolic BP < 90 mmHg. Mean Arterial Pressure (MAP) < 65. Altered Mental Status. HR > 90 bpm. Does the patient have a suspected source of infection? Yes: Dysuria/Frequency/Urgency/UTI. Care prior to arrival: Glucose check: 114 Oxygen administered. via a non-rebreather mask. Triage Assessment: 14:13 General: Appears uncomfortable, Behavior is drowsy. Pain: Denies pain. Neuro: Level of aj1 Consciousness is listless, Oriented to person, place. Historical: - Allergies: 14:13 Codeine; aj1 14:13 Demerol; aj1 14:13 PENICILLINS; aj1 14:13 Sulfa (Sulfonamide Antibiotics); aj1 - Home Meds: 14:13 aspirin 325 mg Oral tab 1 tab once daily [Active]; Bactrim DS 800-160 mg Oral tab 1 tab aj1 2 times per day [Active]; benztropine 1 mg Oral tab 1 tab 2 times per day [Active]; Cymbalta 60 mg Oral cpDR 1 cap once daily [Active]; Depakote Sprinkles 125 mg Oral cpSP 2 caps every 12 hours [Active]; Fanapt 8 mg Oral tab 1 tab 2 times per day [Active]; gabapentin 300 mg Oral cap 1 cap 3 times per day [Active]; Humalog 100 unit/mL Sub-Q crtg sliding scale ac hs [Active]; Incruse Ellipta 62.5 mcg/actuation inhalation dsdv 1 puff once daily [Active]; Lantus 100 unit/mL Sub-Q soln 32 unit nightly [Active]; Lipitor 40 mg Oral tab 1 tab nightly [Active]; Merrem 1 gram intravenous solr every 8 hours [Active]; Risperdal 1 mg Oral tab 1 tab once daily [Active]; tramadol 50 mg Oral tab 1 tab q6h prn [Active]; tramadol 300 mg Oral Tb24 1 tab once daily [Active]; Trileptal 150 mg Oral tab 1 tabs 2 times per day [Active]; Triumeq 600-50-300 mg Oral tab 1 tab once daily [Active]; Vitamin D Oral 2000 unit daily [Active]; fluticasone-salmeterol inhalation 2 times per day [Active]; albuterol sulfate 2.5 mg /3 mL (0.083 %) Nebulizer nebu 3 mL as needed [Active]; - PMHx: 14:13 HIV; COPD; Pneumonia; UTI; Diabetes - IDDM; Chronic pain; Cellulitis; atherosclerosis; aj1 GERD; pulmonary edema; Difficulty walking; muscle weakness; vitamin d deficiency; neuropathy; Hyperlipidemia; Depression; Anxiety; Schizophrenia; Angina; Bipolar disorder; CAD; LACK OF COORDINATION; - Immunization history:: Adult Immunizations up to date. - Social history:: Smoking status: unknown. - Ebola Screening: : Patient denies travel to an Ebola-affected area in the 21 days before illness onset. Screenin:14 Abuse screen: Denies threats or abuse. Denies injuries from another. Nutritional aj1 screening: No deficits noted. Tuberculosis screening: No symptoms or risk factors identified. 18:01 Fall Risk No fall in past 12 months (0 pts). Secondary diagnosis (15 points) AMS. IV aj1 access (20 points). Ambulatory Aid- None/Bed Rest/Nurse Assist (0 pts). Gait- Normal/Bed Rest/Wheelchair (0 pts) Mental Status- Overestimates/Forgets Limitations (15 pts.). Total Tello Fall Scale indicates High Risk Score (45 or more points). Fall prevention measures have been instituted. Side Rails Up X 2 Frequent Obs/Assessments Occuring. Assessment: 14:14 General: Appears uncomfortable, Behavior is calm, drowsy. Pain: Denies pain. Neuro: aj1 Level of Consciousness is listless, Oriented to person, place, Speech slow, garbled and at times inappropriate. Cardiovascular: Heart tones S1 S2 present Patient's skin is warm and dry. Rhythm is sinus tachycardia. Respiratory: Airway is patent Respiratory effort is even, unlabored, Respiratory pattern is regular, symmetrical. GI: No signs and/or symptoms were reported involving the gastrointestinal system. Abdomen is non-distended. : Parent/caregiver report the patient having EMS reports recent UTI. EENT: No signs and/or symptoms were reported regarding the EENT system. Derm: Skin is pale, Skin temperature is cool. Musculoskeletal: Circulation, motion, and sensation intact. 15:15 Reassessment: Notified Dr. Simms and Dr. Mixon that patient's systolic BP remains in aj1 the 70's and 80's. Order received to continue to monitor blood pressure and notify MD if MAP is less than 65. 15:15 Reassessment: Patient appears in no apparent distress at this time. No changes from aj1 previously documented assessment. Patient and/or family updated on plan of care and expected duration. Pain level reassessed. 15:25 Reassessment: Dr. Mixon at bedside to evaluate patient. aj1 15:30 Reassessment: Patient placed on Ralf Hugger due to low temperature readings. See vital aj1 signs for more information. 16:02 Reassessment: Dr Mandeep Mixon at bedside. aj1 16:15 Reassessment: Patient and/or family updated on plan of care and expected duration. Pain aj1 level reassessed. General: Appears in no apparent distress. Behavior is calm, drowsy. Pain: Denies pain. Neuro: Level of Consciousness is awake, alert, Oriented to person, place, Speech slow, at times answers are inappropriate or patient will not respond to questions. Cardiovascular: Heart tones S1 S2 present Patient's skin is warm and dry. Rhythm is sinus rhythm. Respiratory: Airway is patent Respiratory effort is even, unlabored, Respiratory pattern is regular, symmetrical. GI: Abdomen is non-distended. Derm: Skin is pink, warm \T\ dry. Skin temperature is cool. 16:20 Reassessment: Patient transported to CT via stretcher, accompanied by myself. aj1 16:50 Reassessment: Patient transported back to ER bed 2, tolerated CT well. aj1 17:21 Reassessment: Patient and/or family updated on plan of care and expected duration. Pain aj1 level reassessed. General: Appears in no apparent distress. comfortable, Behavior is calm, cooperative. Pain: Denies pain. Neuro: Level of Consciousness is awake, alert, Oriented to person, Speech slow. Cardiovascular: Heart tones S1 S2 present Rhythm is sinus rhythm. Respiratory: Airway is patent Respiratory effort is even, unlabored, Respiratory pattern is regular, symmetrical. Derm: Skin temperature is cool. Musculoskeletal: Circulation, motion, and sensation intact. Vital Signs: 13:52 BP 69 / 52; Pulse 105; Resp 16; Pulse Ox 86% on R/A; aj1 13:53 Pulse Ox 96% on 4 lpm NC; aj1 13:55 BP 82 / 59; aj1 14:02 Weight 78.93 kg (R); aj1 14:02 Temp 97.0(TE); aj1 14:13 BP 90 / 66; Pulse 97; Resp 17; Pulse Ox 98% on R/A; aj1 14:43 BP 79 / 60; Pulse 97; Resp 15; Temp 97.5; Pulse Ox 96% on 4 lpm NC; aj1 15:00 BP 81 / 63; Pulse 96; Resp 15; Temp 97.4; Pulse Ox 96% on 4 lpm NC; aj1 15:15 BP 78 / 62; Pulse 92; Resp 17; Temp 97.0; Pulse Ox 98% on 4 lpm NC; aj1 15:30 BP 92 / 58; Pulse 89; Resp 16; Temp 96.5; Pulse Ox 98% on 4 lpm NC; aj1 16:00 BP 110 / 70; Pulse 70; Resp 18; Temp 96.8; Pulse Ox 98% on 4 lpm NC; aj1 16:30 BP 83 / 55; Pulse 90; Resp 18; Pulse Ox 99% on 4 lpm NC; aj1 16:51 BP 102 / 78; Pulse 92; Resp 18; Temp 96.6(C); Pulse Ox 95% on 4 lpm NC; aj1 17:02 BP 97 / 63; Pulse 88; Resp 16; Temp 96.5; Pulse Ox 98% on 4 lpm NC; aj1 17:22 BP 91 / 81; Pulse 87; Resp 18; Temp 96.9(C); Pulse Ox 96% on 4 lpm NC; aj1 18:00 BP 94 / 75; Pulse 88; Resp 20; Temp 97.6; Pulse Ox 98% on 4 lpm NC; aj1 ED Course: 13:52 Patient arrived in ED. aj1 13:52 Triage completed. aj1 13:54 Jose Simms MD is Attending Physician. kdr 13:55 Melida Valle, RN is Primary Nurse. aj1 14:14 Arm band placed on. aj1 14:14 Patient has correct armband on for positive identification. Bed in low position. Call aj1 light in reach. desk monitor on. Pulse ox on. NIBP on. 14:14 No provider procedures requiring assistance completed. Accessed Clean \T\ dry. Dressing aj1 intact. Good blood return. Flushes easily. 14:18 EKG done, by cardiovascular surgical tech. reviewed by Jose Simms MD. sm3 14:40 Chest Single View XRAY In Process Unspecified. EDMS 14:42 Funes cath inserted, using sterile technique, 16 Fr., by ma, balloon inflated, returned aj1 clear yellow urine. Patient tolerated. 16:30 Ge Mixon DO is Hospitalizing Provider. kdr 16:41 CT Head Brain wo Cont In Process Unspecified. EDMS 16:41 CT Chest, Abdomen, Pelvis - W/Contrast In Process Unspecified. EDMS 18:01 Patient admitted, IV remains in place. aj1 Administered Medications: 13:58 Drug: NS 0.9% (30 ml/kg) 30 ml/kg Route: IV; Rate: bolus; Site: right upper arm; aj1 18:02 Follow up: IV Status: Completed infusion; IV Intake: 2300ml aj1 15:00 Drug: Cefepime 2 grams Route: IVPB; Rate: 200 ml/hr; Infused Over: 30 mins; Site: right aj upper arm; 15:05 Follow up: IV Status: Completed infusion; IV Intake: 10ml aj1 15:05 Drug: vancoMYCIN 1 grams Route: IVPB; Infused Over: 2 hrs; Site: right upper arm; aj1 17:15 Follow up: IV Status: Completed infusion; IV Intake: 250ml aj1 Intake: 15:05 IV: 10ml; Total: 10ml. aj1 17:15 IV: 250ml; Total: 260ml. aj1 18:02 IV: 2300ml; Total: 2560ml. aj1 Output: 18:00 Urine: 1000ml (Funes); Total: 1000ml. aj1 Outcome: 16:31 Decision to Hospitalize by Provider. kdr 18:30 Admitted to ICU accompanied by nurse, accompanied by tech, via stretcher, with oxygen, aj1 on monitor, with chart, Report called to AUBREE Pritchard 18:30 critical 18:30 Discharge instructions given to family, Instructed on the need for admit, Demonstrated understanding of instructions. 18:44 Patient left the ED. aj1 Signatures: Dispatcher [employer] Melida Maki RN RN aj1 Jose Simms MD MD kdr Montes, Shakira sm3 Corrections: (The following items were deleted from the chart) 14:04 13:53 Presenting complaint: EMS states: [facility] staff at [facility] noticed some altered [facility] mental status yesterday evening. Today she seemed worse, so they called EMS. BP was 86/52 upon EMS arrival. Patient appears drowsy, oriented to person, will not answer any other questions aj1 16:11 16:00 BP 110 / 70; Pulse 70bpm; Resp 88bpm; Pulse Ox 98% 4 lpm Nasal Cannula; Temp aj1 96.8F; aj1
--- NOTE | 2019-09-21 16:53 | RAD REPORT ---
EXAM DESCRIPTION: CT - Head Brain Wo Cont - 09/21/2019 4:41 pm CLINICAL HISTORY: Alteration of awareness/confusion COMPARISON: September 10, 2019 TECHNIQUE: Computed axial tomography of the head was obtained. IV contrast was not requested. All CT scans are performed using dose optimization technique as appropriate and may include automated exposure control or mA/KV adjustment according to patient size. FINDINGS: Images are degraded by patient motion artifactAn intracranial bleed is not seen . The ventricles are normal in caliber. No extra-axial fluid collection is noted. Mild to moderate low-density areas within periventricular, deep and subcortical white matter likely r epresent ischemic changes secondary to small vessel disease. Fluid within the sinuses/ mastoids is not seen. IMPRESSION: No acute intracranial abnormality is seen. If patient's symptoms persist MRI of the bra in would be recommended.
--- NOTE | 2019-09-21 17:08 | RAD REPORT ---
EXAM DESCRIPTION: CT - Chest Abdomen Pelvis W Cont - 09/21/2019 4:41 pm CLINICAL HISTORY: Chest and abdominal pain. Hypotension. Urinary tract infection COMPARISON: September 10, 2019 chest x-ray TECHNIQUE: Computed axial tomography of the chest, abdomen and pelvis was obtained. 100 cc Isovue-30 0 was administered intravenously. Oral contrast was not requested. This limits evaluation of bowel. All CT scans are performed using dose optimization technique as appropriate and may include automated exposure control or mA/KV adjustment according to patient size. FINDINGS: Tracheal diverticulum unchanged Minimal bilateral pleural effusions appear unchanged. No mediastinal or hilar lymph lymphadenopathy Mild chronic appearing lung opacities. Minimal bibasilar atelectasis unchanged . Mild COPD The liver, spleen, pancreas, adrenals and kidneys appear unremarkable. Diverticula stem from the colon without evidence of diverticulitis Funes catheter within the bladder IMPRESSION: Minimal pleural effusions unchanged from the prior chest x-ray. Minimal bibasilar lung atelectasis unchanged No acute abnormality involving the abdomen/pelvis
--- NOTE | 2019-09-21 17:27 | P.HP ---
Certification for Inpatient Patient admitted to: Inpatient With expected LOS: >2 Midnights Patient will require the following post-hospital care: Other (Return to her prison.) Practitioner: I am a practitioner with admitting privileges, knowledge of patient current condition, hospital course, and medical plan of care. Services: Services provided to patient in accordance with Admission requirements found in Title 42 Section 412.3 of the Code of Federal Regulations Patient History Date of Service: 09/21/19 Primary Care Provider: [facility] Reason for admission: Altered mental status History of Present Illness: 58-year-old female from the prison presented to emergency room with altered mental status. Most of the information came from the ER physician and nurse. Patient was brought in by EMS. It is reported that the patient was having some altered mental status changes since yesterday. Blood pressures were noted to be low in the ER and upon arrival. Patient with history of COPD, HIV, and recently hospitalized and sent to the prison for continued IV antibiotic therapy for UTI-ESBL and bacteremia. Patient has PICC line in place. Nursing reports that the patient continues with meropenem and to Bactrim at the prison. In the ER patient evaluated. Patient was initially hypotensive. Patient required IV fluid bolus. Initial lab shows normal white count at 6.9, hemoglobin 13.4 with a platelet count of 159. Lactic acid within normal range. Pro calcitonin within normal range. Troponin unremarkable. Lipase unremarkable. Sodium 140, potassium 4.0. BUN of 11, creatinine 0.2 with a GFR of 80. Glucose 126. Urinalysis unremarkable. Chest x-ray unremarkable. CT head unremarkable. CT abdomen showed some mild atelectasis, COPD changes and unremarkable GI evaluation. ABG unremarkable. Patient did not appear in any respiratory distress in the emergency room. Patient was admitted for further evaluation. When I saw the patient in the ER, patient was alert but with slight confusion. Patient appeared dry. Patient did not appear in any acute respiratory distress. Patient with history of acute respiratory failure related to her COPD. I called the prison nurse. jail reported that blood pressures have been running around 100-110 systolic. jail reported that blood pressures sometimes are elevated. Patient was acting appropriately yesterday. Today she was with increased fatigue and not readily alert. No indication of recent change in medication or overmedication. Temperature was slightly low in the emergency room. Bear hugger now in place. When I saw the patient in the ER, she did not appear septic. No acute respiratory distress noted. jail medication reviewed. Patient on multiple psychiatric medications. Allergies codeine Allergy (Intermediate, Verified 08/27/15 00:23) Unknown Penicillins Allergy (Intermediate, Verified 08/27/15 00:23) Unknown Home medications list reviewed: Yes Home Medications: Abacavir/Dolutegravir/Lamivudi [Triumeq 600-50-300 mg Tablet] 1 tab PO DAILY Albuterol Sulfate [Proair Hfa] 2 puff IH Q6H PRN 01/16/19 Aspirin [Aspirin EC 325 MG] 325 mg PO DAILY 01/16/19 Atorvastatin Calcium [Lipitor] 40 mg PO BEDTIME 01/16/19 Cholecalciferol (Vitamin D3) [Vitamin D3] 2,000 unit PO DAILY 01/16/19 Divalproex [Depakote Sprinkle*] 250 mg PO BID 01/16/19 Duloxetine HCl [Cymbalta] 60 mg PO DAILY 01/16/19 Magnesium Hydroxide [Milk of Magnesia] 30 mg PO DAILY PRN 01/16/19 Oxcarbazepine [Trileptal] 150 mg PO BID 01/16/19 Risperidone [Risperdal] 1 mg PO DAILY 01/16/19 Albuterol Neb [Proventil 0.083% Neb Soln] 2.5 mg NEB TID PRN #90 amp 01/18/19 Albuterol Sulfate [Albuterol Sulfate 0.083% Neb Soln] 1 vial IN TID PRN Fluticasone/Vilanterol [Breo Ellipta 100-25 Mcg INH] 1 puff IN DAILY 03/09/19 Gabapentin 300 mg PO TID 03/09/19 Insulin Glargine,Hum.rec.anlog [Lantus] 32 units SQ BEDTIME 03/09/19 Ipratropium/Albuterol Sulfate [Iprat-Albut 0.5-3(2.5) mg/3 ml] 1 puff IN PRN PRN 03/09/19 Tramadol HCl [Ultram] 50 mg PO Q6HP PRN 03/09/19 guaiFENesin [Cough Syrup] 10 ml PO BIDP PRN 03/09/19 Benzonatate [Tessalon Perle*] 100 mg PO TIDP PRN 09/11/19 Benztropine Mesylate [Cogentin*] 1 mg PO BID 09/11/19 Iloperidone [Fanapt] 8 mg PO TID 09/11/19 Insulin Lispro [Humalog] See Protocol SQ SEECOM 09/11/19 L.acidoph,Paracasei, B.lactis [Probiotic] 200 milliu PO BID 09/11/19 Risperidone [Risperdal] 1 mg PO DAILY 09/11/19 Tramadol HCl [Ultram] 50 mg PO DAILY 09/11/19 Meropenem [Merrem 1 GM/100 ML NS IVPB] 1 gm IV Q8HR #1 bag 09/14/19 Smz./Tmp. [Bactrim Ds 800 MG/160 MG*] 1 tab PO BID #20 tab 09/14/19 - Past Medical/Surgical History Diabetic: No -: Bipolar disorder -: Schizophrenia -: HIV -: COPD -: Chronic pain -: Hyperlipidemia -: Recent UTI-ESBL and bacteremia -: History of recurrent UTI -: Hysterectomy -: Appendectomy Psychosocial/ Personal History: Patient comes from the prison. - Family History Father -: Lung disease, Diabetes, Cancer Notes: lung cancer Mother -: Lung disease, Cancer Notes: lung cancer - Social History Smoking Status: Unknown if ever smoked Alcohol use: No CD- Drugs: No Caffeine use: Yes Place of Residence: [place]-Term Review of Systems is unable to be obtained Physical Examination - Physical Exam General: Other (Patient slightly alert but still confused. Increase sedation noted. Patient appears slightly disheveled.) HEENT: Atraumatic, Normocephalic, Other (Dry mucous membranes noted) Neck: Supple, No Thyromegaly Respiratory: Clear to auscultation bilaterally, Normal air movement Cardiovascular: Normal pulses, Regular rate/rhythm Gastrointestinal: Normal bowel sounds, Soft and benign, Non-distended, No ascites, No tenderness, No masses, No rebound, No guarding Musculoskeletal: No contractures, No erythema, No tenderness, No warmth Integumentary: No tenderness/swelling, No erythema, No warmth, No cyanosis Neurological: Normal speech, Normal strength at 5/5 x4 extr, Normal tone, Abnormal affect (Flat affect) - Studies Laboratory Data (last 24 hrs) 09/21/19 14:00: PT 11.2, INR 0.95, APTT 32.6 09/21/19 14:00: WBC 6.9, Hgb 13.4, Hct 38.9, Plt Count 159 09/21/19 14:00: Sodium 140, Potassium 4.0, BUN 11, Creatinine 0.74, Glucose 104 , Total Bilirubin 0.2, AST 22, ALT 18, Alkaline Phosphatase 91, Lipase 51 L Assessment and Plan - Plan Impression: Acute encephalopathy etiology unknown with hypotension and hypothermia Hypotension likely volume depletion/dehydration PICC line in place with a recent UTI-ESBL and bacteremia Schizophrenia Depression with anxiety HIV COPD Plan: Acute encephalopathy etiology unknown with hypotension and hypothermia: Patient will be admitted to ICU for further evaluation and monitoring. Patient given IV fluid bolus in the emergency room. No evidence of sepsis at this time. Encephalopathy etiology unknown. Will need to consider medication related, dehydration, versus other. Urinalysis unremarkable, CT head, CT abdomen, CT chest, chest x-ray also all unremarkable. Lactic acid and pro calcitonin negative. Doubt sepsis. Patient with recent hospitalization for UTI -ESBL and bacteremia. Will continue with meropenem. Will add vancomycin. Will need to obtain and review prison medication. Will need to verify and make sure patient has not been overmedicated at the prison. Will check urine drug screen. Will provide bear hugger to maintain temperature. Will continue with IV fluids. Will provide DVT prophylaxis-Lovenox. Will continue to reassess. Repeat blood culture, urine culture have been obtained. Will monitor lab closely. Electrolyte protocol in place. Covering hospitalist will continue her care tomorrow. Hypotension likely volume depletion/dehydration: Patient initially hypotensive in the emergency room. Patient responded to IV fluid bolus. Will continue with IV fluid maintenance. Will adjust accordingly. PICC line in place with a recent UTI-ESBL and bacteremia: PICC line in place. Recent hospitalization for UTI-ESBL and bacteremia. Will continue with meropenem. Will add vancomycin which the patient was recently on. At the prison this was changed to Bactrim. Schizophrenia: Will need to verify prison medication. Will check for any overmedication at the prison. Depression with anxiety: Need to review and restart medication. HIV: Will need to review and restart medication. COPD: Will provide COPD medication. Will maintain sats above 93%. Respiratory did monitor closely. Discharge Plan: Long-Term Plan to discharge in: Greater than 2 days - Advance Directives Does patient have a Living Will: No Does patient have a Durable POA for Healthcare: No - Code Status/Comfort Care Code Status Assessed: No (Not able to be assessed) Time Spent Managing Pts Care (In Minutes): 55
[2019-09-21] MEDS ORDERED: ONDANSETRON 4 MG/2 ML VIAL IV PRN (17:41)
[2019-09-21] MEDS ORDERED: ACETAMINOPHEN 500 MG TAB PO PRN (17:41)
[2019-09-21] MEDS ORDERED: ALBUTEROL 2.5 MG/3 ML NEB SOL NEB PRN (17:57)
[2019-09-21] MEDS: THIAMINE 200 MG/2 ML INJ IVP SCH (18:49)
[2019-09-21] MEDS: D5 0.9 NS 1,000 ML IV SCH (18:49)
[2019-09-21] MEDS: ENOXAPARIN 40 MG/0.4 ML SQ SCH (18:50)
[2019-09-21] MEDS: FOLIC ACID 1 MG in NA CHLORIDE 0.9% 50 ML IV SCH (19:14)
[2019-09-21] MEDS: ARFORMOTEROL TARTRATE 15 MCG/2 ML VIAL.NEB NEB SCH (20:00)
[2019-09-21] MEDS: IPRATROPIUM BROM 0.5MG/2.5ML NEB PRN (20:00)
[2019-09-21] MEDS ORDERED: IPRATROPIUM BROM 0.5MG/2.5ML NEB SCH (20:00)
[2019-09-21] MEDS ORDERED: ALBUTEROL 2.5 MG/3 ML NEB SOL NEB SCH (20:00)
[2019-09-21] MEDS: Meropenem 1,000 MG in NA CHLORIDE 0.9% 100 ML IV SCH (20:48)
[2019-09-21] MEDS ORDERED: Meropenem 1000 MG/VIAL IV SCH (21:00)
[2019-09-21 22:38] LABS: CKMB Creatine Kinase MB 8.8 ng/mL (0.3-3.6); Creatine Phosphokinase 848 U/L (26-192); Troponin I < 0.02 ng/mL (0.0-0.045)
[2019-09-21 23:03] VITALS: BMI 32.1
[2019-09-21 23:44] LABS: Barbiturates NEGATIVE (NEGATIVE); Benzodiazepines NEGATIVE (NEGATIVE); Cocaine NEGATIVE (NEGATIVE); METHAMPHETAM NEGATIVE (NEGATIVE); Methadone NEGATIVE (NEGATIVE); Opiates NEGATIVE (NEGATIVE); Phencyclidine NEGATIVE (NEGATIVE); THC Cannibis NEGATIVE (NEGATIVE)
[2019-09-22 04:56] LABS: Absolute Lymphocytes (CBC) 1.3 K/uL (0.7-4.9); Basophils % 0.8 % (0-1.3); Hematocrit 35.7 % (36.0-45.0); MPV 9.1 fL (7.6-11.3); RBC Red Blood Cell Count 3.44 M/uL (3.86-4.86)
[2019-09-22 05:18] LABS: BUN Blood Urea Nitrogen 4 mg/dL (7-18); Bicarbonate 25 mmol/L (21-32); CKMB Creatine Kinase MB 7.1 ng/mL (0.3-3.6); Creatine Phosphokinase 765 U/L (26-192); Glucose Level 151 mg/dL (74-106); Magnesium 1.6 mg/dL (1.8-2.4); Potassium 3.7 mmol/L (3.5-5.1); Sodium Level 143 mmol/L (136-145); Troponin I < 0.02 ng/mL (0.0-0.045)
[2019-09-22] MEDS: D5 0.9 NS 1,000 ML IV SCH ×3 (05:21→23:41)
[2019-09-22] MEDS ORDERED: MAGNESIUM SULFATE 1 gm IVPB 1 GM/100 ML BAG IV ONE (05:32)
[2019-09-22] MEDS ORDERED: POTASSIUM 25 MEQ EFFERV TAB PO ONE (09:00)
[2019-09-22] MEDS: FOLIC ACID 1 MG in NA CHLORIDE 0.9% 50 ML IV SCH (09:27)
[2019-09-22] MEDS: Meropenem 1,000 MG in NA CHLORIDE 0.9% 100 ML IV SCH ×2 (09:27→20:59)
[2019-09-22] MEDS: THIAMINE 200 MG/2 ML INJ IVP SCH (09:29)
[2019-09-22] MEDS: ENOXAPARIN 40 MG/0.4 ML SQ SCH (09:29)
[2019-09-22] MEDS: VANCOMYCIN 1.5 GM in NA CHLORIDE 0.9% 500 ML IVPB SCH (09:44)
[2019-09-22] MEDS: ARFORMOTEROL TARTRATE 15 MCG/2 ML VIAL.NEB NEB SCH ×2 (11:13→19:40)
--- NOTE | 2019-09-22 12:31 | EKG ---
Test Date: 2019-09-21 Test Time: 14:11:17 Book Retailer: JASON MEASUREMENT RESULTS: Intervals: Rate: 97 TN: 182 QRSD: 84 QT: 376 QTc: 477 [place]: P: 68 TN: 182 QRS: -50 T: 61 INTERPRETIVE STATEMENTS: Normal sinus rhythm Left anterior fascicular block Cannot rule out Inferior infarct (masked by fascicular block?), age undetermined Abnormal ECG Compared to ECG 09/10/2019 19:39:21 No significant changes Electronically Signed On 09-22-19 12:29:26 CDT by Garcia Knapp
--- NOTE | 2019-09-22 13:22 | P.PN ---
Subjective Date of Service: 09/22/19 Primary Care Provider: [facility] Chief Complaint: Altered mental status Subjective: Doing well Patient doing well this morning. Her mental status has improved. Blood pressure has improved and she has been normotensive. She has been afebrile and tolerating feeding. She denied any diarrhea or nausea or vomiting or abdominal pain. Physical Examination - Vital Signs Temperature: 97.9 F Blood Pressure: 115/67 Pulse: 108 Respirations: 16 Pulse Ox (%): 96 - Physical Exam General: In no apparent distress, Oriented x3 HEENT: Mucous membr. moist/pink Neck: Supple, JVD not distended, No Thyromegaly Respiratory: Clear to auscultation bilaterally, Normal air movement Cardiovascular: No edema, Normal pulses, Normal S1 S2, No murmurs, Irregular heart rate/rhythm Capillary refill: <2 Seconds Gastrointestinal: Normal bowel sounds, Soft and benign, Non-distended, No tenderness Musculoskeletal: No swelling, No erythema Integumentary: No rashes Neurological: Normal speech, Normal strength at 5/5 x4 extr - Studies Laboratory Data (last 24 hrs) 09/21/19 14:00: PT 11.2, INR 0.95, APTT 32.6 09/21/19 14:00: WBC 6.9, Hgb 13.4, Hct 38.9, Plt Count 159 09/21/19 14:00: Sodium 140, Potassium 4.0, BUN 11, Creatinine 0.74, Glucose 104 , Total Bilirubin 0.2, AST 22, ALT 18, Alkaline Phosphatase 91, Lipase 51 L Assessment And Plan - Current Problems (Diagnosis) (1) Acute encephalopathy Onset Date: 01/17/19 Current Visit: No Status: Acute (2) Hypotension Onset Date: 06/13/15 Current Visit: No Status: Acute (3) History of UTI Current Visit: Yes Status: Acute (4) History of bacteremia Current Visit: Yes Status: Acute (5) Schizophrenia Onset Date: 08/30/18 Current Visit: No Status: Acute Qualifiers: (6) HIV (human immunodeficiency virus infection) Onset Date: 07/09/15 Current Visit: No Status: Chronic Qualifiers: - Plan Blood pressure has improved and patient is currently normotensive. Continue IV cefepime and vancomycin. Urine culture report mixed growth Follow blood cultures Continue IV hydration Continue HIV medications PT and OT. Continue antipsychotics.
[2019-09-22] MEDS: OXcarbazepine 150 MG TAB PO SCH ×2 (14:15→21:05)
[2019-09-22] MEDS: DIVALPROEX NA 125 MG CAP PO SCH ×2 (14:16→21:05)
[2019-09-22] MEDS: BENZTROPINE 1 MG TAB PO SCH ×2 (14:16→21:05)
[2019-09-22] MEDS: ASPIRIN EC 325 MG TABLET PO SCH (14:18)
[2019-09-22] MEDS: DULOXETINE 30 MG CAP PO SCH (14:18)
[2019-09-22] MEDS: VITAMIN D 1000 UNIT TAB PO SCH (14:18)
[2019-09-22] MEDS ORDERED: HALOPERIDOL LACT 5 MG/ML INJ IV PRN (15:27)
[2019-09-22] MEDS: SALMETEROL IH SCH (21:00)
[2019-09-22] MEDS: FLUTICASONE PROPION IH SCH (21:00)
[2019-09-22] MEDS: ILOPERIDONE 8 MG PO SCH (21:00)
[2019-09-22] MEDS: ATORVASTATIN 40 MG TAB PO SCH (21:05)
[2019-09-22] MEDS: INSULIN GLARGINE 100 UNITS/ML SQ SCH (21:10)
[2019-09-23] MEDS: D5 0.9 NS 1,000 ML IV SCH ×3 (02:22→21:43)
[2019-09-23] MEDS: VANCOMYCIN 1.5 GM in NA CHLORIDE 0.9% 500 ML IVPB SCH ×2 (02:23→21:37)
[2019-09-23 05:01] LABS: Absolute Lymphocytes (CBC) 1.9 K/uL (0.7-4.9); Basophils % 0.9 % (0-1.3); Hematocrit 37.2 % (36.0-45.0); MPV 9.2 fL (7.6-11.3)
[2019-09-23 05:07] LABS: BUN Blood Urea Nitrogen 3 mg/dL (7-18); Bicarbonate 27 mmol/L (21-32); Glucose Level 95 mg/dL (74-106); Magnesium 1.8 mg/dL (1.8-2.4); Potassium 4.1 mmol/L (3.5-5.1); Sodium Level 144 mmol/L (136-145)
[2019-09-23] MEDS ORDERED: MAGNESIUM SULFATE 1 gm IVPB 1 GM/100 ML BAG IV ONE (06:00)
[2019-09-23] MEDS: ARFORMOTEROL TARTRATE 15 MCG/2 ML VIAL.NEB NEB SCH ×2 (08:32→20:00)
[2019-09-23] MEDS: DOLUTEGRAVIR PO SCH (09:00)
[2019-09-23] MEDS: LAMIVUDI PO SCH (09:00)
[2019-09-23] MEDS ORDERED: HOME MED 1 EA UNK (Aspirin [Aspirin Ec 325 Mg] 325 MG) PO SCH (09:00)
[2019-09-23] MEDS ORDERED: HOME MED 1 EA UNK (Duloxetine Hcl [Cymbalta] 60 MG) PO SCH (09:00)
[2019-09-23] MEDS: ILOPERIDONE 8 MG PO SCH ×2 (09:00→21:00)
[2019-09-23] MEDS: FLUTICASONE PROPION IH SCH ×2 (09:00→21:00)
[2019-09-23] MEDS ORDERED: HOME MED 1 EA UNK (Cholecalciferol (Vitamin D3) [Vitamin D3] 2,000 UNIT) PO SCH (09:00)
[2019-09-23] MEDS: HOME MED 1 EA UNK (Umeclidinium Bromide [Incruse Ellipta] 1 PUFF) IH SCH (09:00)
[2019-09-23] MEDS: SALMETEROL IH SCH ×2 (09:00→21:00)
[2019-09-23] MEDS: ABACAVIR PO SCH (09:00)
[2019-09-23] MEDS: RISPERIDONE 1 MG TABLET PO SCH (09:27)
[2019-09-23] MEDS: DULOXETINE 30 MG CAP PO SCH (09:27)
[2019-09-23] MEDS: BENZTROPINE 1 MG TAB PO SCH ×2 (09:27→21:38)
[2019-09-23] MEDS: VITAMIN D 1000 UNIT TAB PO SCH (09:27)
[2019-09-23] MEDS: TRAMADOL HCL 50 MG TAB PO PRN (09:27)
[2019-09-23] MEDS: ASPIRIN EC 325 MG TABLET PO SCH (09:27)
[2019-09-23] MEDS: THIAMINE 200 MG/2 ML INJ IVP SCH (09:28)
[2019-09-23] MEDS: ENOXAPARIN 40 MG/0.4 ML SQ SCH (09:28)
[2019-09-23] MEDS: Meropenem 1,000 MG in NA CHLORIDE 0.9% 100 ML IV SCH ×2 (10:15→21:34)
[2019-09-23] MEDS: OXcarbazepine 150 MG TAB PO SCH ×2 (10:16→21:39)
[2019-09-23] MEDS: DIVALPROEX NA 125 MG CAP PO SCH ×2 (10:16→21:39)
--- NOTE | 2019-09-23 10:31 | P.PN ---
Subjective Date of Service: 09/23/19 Primary Care Provider: [facility] Chief Complaint: Altered mental status Patient's mental status has improved but not tangential in thought and mildly agitated. Blood pressure has improved and she has been normotensive and remained stable. She has been afebrile and tolerating feeding. Physical Examination - Vital Signs Temperature: 97.5 F Blood Pressure: 83/51 Pulse: 99 Respirations: 18 Pulse Ox (%): 95 - Physical Exam General: Alert, In no apparent distress, Oriented x3 HEENT: Mucous membr. moist/pink Neck: Supple, JVD not distended Respiratory: Clear to auscultation bilaterally, Normal air movement Cardiovascular: No edema, Regular rate/rhythm, Normal S1 S2, No murmurs Gastrointestinal: Normal bowel sounds, Soft and benign, Non-distended, No tenderness Musculoskeletal: No swelling Integumentary: No rashes Neurological: Normal speech, Normal strength at 5/5 x4 extr - Studies Microbiology Data (last 24 hrs): 09/21/19 14:35 Clean Catch Urine [place] Count - Final >100,000 CFU/ML. 09/21/19 14:35 Clean Catch Urine - Final Assessment And Plan - Current Problems (Diagnosis) (1) Acute encephalopathy Onset Date: 01/17/19 Current Visit: No Status: Acute (2) Hypotension Onset Date: 06/13/15 Current Visit: No Status: Acute (3) History of UTI Current Visit: Yes Status: Acute (4) History of bacteremia Current Visit: Yes Status: Acute (5) Schizophrenia Onset Date: 08/30/18 Current Visit: No Status: Acute Qualifiers: (6) HIV (human immunodeficiency virus infection) Onset Date: 07/09/15 Current Visit: No Status: Chronic Qualifiers: - Plan Blood pressure has improved and patient is currently normotensive. Continue IV cefepime and vancomycin for 2 more days to complete 14 days of treatment. Start IV Diflucan for yeast UTI. Blood cultures: no growth to date Continue IV hydration Continue HIV medications PT and OT. Continue antipsychotics. Haldol IV p.r.n. for agitation. Consult to social service to aid with disposition
[2019-09-23] MEDS: FOLIC ACID 1 MG in NA CHLORIDE 0.9% 50 ML IV SCH (11:49)
[2019-09-23] MEDS ORDERED: FLUCONAZOLE 200mg IVPB 200 MG/100 ML BAG IV SCH (18:00)
[2019-09-23] MEDS ORDERED: NA CHLORIDE 0.9% 500 ML ONE (21:24)
[2019-09-23] MEDS: MICAFUNGIN SODIUM IV SCH (21:36)
[2019-09-23] MEDS: NA CHLORIDE 0.9% IV SCH (21:36)
[2019-09-23] MEDS: INSULIN GLARGINE 100 UNITS/ML SQ SCH (21:37)
[2019-09-23] MEDS: ATORVASTATIN 40 MG TAB PO SCH (21:41)
[2019-09-24] MEDS: D5 0.9 NS 1,000 ML IV SCH ×3 (04:01→20:25)
[2019-09-24 05:51] LABS: BUN Blood Urea Nitrogen 3 mg/dL (7-18); Bicarbonate 26 mmol/L (21-32); Glucose Level 97 mg/dL (74-106); Magnesium 1.8 mg/dL (1.8-2.4); Potassium 3.8 mmol/L (3.5-5.1); Sodium Level 143 mmol/L (136-145)
[2019-09-24] MEDS ORDERED: MAGNESIUM SULFATE 1 gm IVPB 1 GM/100 ML BAG IV ONE (07:00)
[2019-09-24] MEDS: IPRATROPIUM BROM 0.5MG/2.5ML NEB PRN (08:12)
[2019-09-24] MEDS: ARFORMOTEROL TARTRATE 15 MCG/2 ML VIAL.NEB NEB SCH ×2 (08:15→20:00)
[2019-09-24] MEDS: LAMIVUDI PO SCH (09:00)
[2019-09-24] MEDS: FLUTICASONE PROPION IH SCH ×2 (09:00→20:12)
[2019-09-24] MEDS: ILOPERIDONE 8 MG PO SCH (09:00)
[2019-09-24] MEDS: ABACAVIR PO SCH (09:00)
[2019-09-24] MEDS: SALMETEROL IH SCH ×2 (09:00→20:12)
[2019-09-24] MEDS: DOLUTEGRAVIR PO SCH (09:00)
[2019-09-24] MEDS ORDERED: MICAFUNGIN SODIUM 100 MG VIAL IV SCH (09:00)
[2019-09-24] MEDS: HOME MED 1 EA UNK (Umeclidinium Bromide [Incruse Ellipta] 1 PUFF) IH SCH (09:00)
[2019-09-24] MEDS ORDERED: POTASSIUM CL SA 10 MEQ TAB PO ONE (09:00)
[2019-09-24] MEDS: VITAMIN D 1000 UNIT TAB PO SCH (10:09)
[2019-09-24] MEDS: THIAMINE 200 MG/2 ML INJ IVP SCH (10:09)
[2019-09-24] MEDS: FOLIC ACID 1 MG in NA CHLORIDE 0.9% 50 ML IV SCH (10:09)
[2019-09-24] MEDS: DULOXETINE 30 MG CAP PO SCH (10:09)
[2019-09-24] MEDS: ASPIRIN EC 325 MG TABLET PO SCH (10:10)
[2019-09-24] MEDS: RISPERIDONE 1 MG TABLET PO SCH (10:10)
[2019-09-24] MEDS: ENOXAPARIN 40 MG/0.4 ML SQ SCH (10:10)
[2019-09-24] MEDS: OXcarbazepine 150 MG TAB PO SCH ×2 (10:11→20:12)
[2019-09-24] MEDS: DIVALPROEX NA 125 MG CAP PO SCH ×2 (10:11→20:12)
[2019-09-24] MEDS: TRAMADOL HCL 50 MG TAB PO PRN (10:11)
[2019-09-24] MEDS: BENZTROPINE 1 MG TAB PO SCH (10:12)
[2019-09-24] MEDS: Meropenem 1,000 MG in NA CHLORIDE 0.9% 100 ML IV SCH ×2 (10:12→20:12)
--- NOTE | 2019-09-24 14:36 | PN ---
Date of Progress Note: 09/24/2019 Subjective: Patient seen and examined. Chart reviewed and case discussed with RN. No acute events overnight. Patient is doing well. Medication List: Reviewed. Objective: Vital Signs: Temperature 98.5, heart rate 84, blood pressure 127/68 , respirations 18, O2 of 97% on room air. General: Awake, alert, oriented x3. Does not appear to be in any acute distress. Obese female. CV: S1, S2. Regular rate and rhythm. Peripheral pulses present. Respiratory: Moving air well bilaterally. No wheezing or stridor. Gastrointestinal: Abdomen is soft, nontender, and nondistended. Positive bowel sounds. No guarding or rigidity. Extremities: No clubbing, cyanosis, or edema. Neurologic: Nonfocal. Laboratory Data: Sodium 143, potassium 3.8, chloride 111, CO2 of 26, BUN 3, creatinine 0.46, glucose 97, calcium 8.4, magnesium 1.8. Blood cultures, no growth to date. Urine culture growing out yeast. Assessment And Plan: A 58-year-old female with: 1. Acute metabolic encephalopathy, likely due to dehydration versus medication , now back to baseline, oriented. 2. Acute hypotension, improved. We will continue to monitor blood pressure. Encourage hydration. 3. History of ESBL Escherichia coli urinary tract infection, currently on meropenem, day 13. 4. History of bacteremia. Patient was on Bactrim p.o., now on vancomycin. Repeat cultures showed no growth to date. 5. Urine fungal infection. Patient is on micafungin. No Diflucan due to interaction with her psychiatric medications. 6. History of schizophrenia. Patient is on Risperdal. No signs of tardive dyskinesia. Patient is on benztropine. CK level was elevated upon admission. We will recheck level today. 7. Human immunodeficiency virus, chronic, on antiretrovirals. Continue PT, OT. 8. Obesity, BMI of 32. 9. Deep venous thrombosis prophylaxis with Lovenox. Plan: Arrange for antifungals upon discharge. Encourage hydration. Adjust IV fluids. ID consultation /JOHN Voice ID: [id number] Report ID: [id number] ELIOT
[2019-09-24] MEDS: VANCOMYCIN 1.5 GM in NA CHLORIDE 0.9% 500 ML IVPB SCH (16:00)
[2019-09-24] MEDS: ATORVASTATIN 40 MG TAB PO SCH (20:12)
[2019-09-24] MEDS: MICAFUNGIN SODIUM IV SCH (20:13)
[2019-09-24] MEDS: NA CHLORIDE 0.9% IV SCH (20:13)
[2019-09-24] MEDS: INSULIN GLARGINE 100 UNITS/ML SQ SCH (20:17)
[2019-09-25] MEDS: D5 0.9 NS 1,000 ML IV SCH ×2 (01:41→08:36)
[2019-09-25 04:54] LABS: BUN Blood Urea Nitrogen 6 mg/dL (7-18); Bicarbonate 27 mmol/L (21-32); Glucose Level 92 mg/dL (74-106); Magnesium 1.8 mg/dL (1.8-2.4); Sodium Level 142 mmol/L (136-145)
[2019-09-25] MEDS ORDERED: MAGNESIUM SULFATE 1 gm IVPB 1 GM/100 ML BAG IV ONE (06:00)
[2019-09-25] MEDS: ARFORMOTEROL TARTRATE 15 MCG/2 ML VIAL.NEB NEB SCH (08:25)
[2019-09-25] MEDS: Meropenem 1,000 MG in NA CHLORIDE 0.9% 100 ML IV SCH (08:33)
[2019-09-25] MEDS: ENOXAPARIN 40 MG/0.4 ML SQ SCH (08:34)
[2019-09-25] MEDS: THIAMINE 200 MG/2 ML INJ IVP SCH (08:34)
[2019-09-25] MEDS: RISPERIDONE 1 MG TABLET PO SCH (08:35)
[2019-09-25] MEDS: ASPIRIN EC 325 MG TABLET PO SCH (08:35)
[2019-09-25] MEDS: DIVALPROEX NA 125 MG CAP PO SCH (08:35)
[2019-09-25] MEDS: VITAMIN D 1000 UNIT TAB PO SCH (08:35)
[2019-09-25] MEDS: FOLIC ACID 1 MG in NA CHLORIDE 0.9% 50 ML IV SCH (08:36)
[2019-09-25] MEDS: OXcarbazepine 150 MG TAB PO SCH (08:36)
[2019-09-25] MEDS: DULOXETINE 30 MG CAP PO SCH (08:39)
[2019-09-25] MEDS: LAMIVUDI PO SCH (08:39)
[2019-09-25] MEDS: DOLUTEGRAVIR PO SCH (08:39)
[2019-09-25] MEDS: FLUTICASONE PROPION IH SCH (08:39)
[2019-09-25] MEDS: ABACAVIR PO SCH (08:39)
[2019-09-25] MEDS: SALMETEROL IH SCH (08:39)
[2019-09-25] MEDS: HOME MED 1 EA UNK (Umeclidinium Bromide [Incruse Ellipta] 1 PUFF) IH SCH (08:40)
[2019-09-25] MEDS ORDERED: BENZTROPINE 1 MG TAB PO SCH (09:00)
[2019-09-25 10:55] VITALS: O2SAT 95
[2019-09-25] MEDS: VANCOMYCIN 1.5 GM in NA CHLORIDE 0.9% 500 ML IVPB SCH (12:22)
[2019-09-25 12:29] VITALS: BP 114/80; TEMP 97.1
[2019-09-25] MEDS ORDERED: MICAFUNGIN SODIUM 100 MG in NA CHLORIDE 0.9% 100 ML IV SCH ×2 (13:00→21:00)
--- NOTE | 2019-09-25 19:06 | CON ---
History Of Present Illness: The patient is a 58-year-old female coming in with altered mental status , found to have ESBL in urine with bacteremia. The patient also has significant history of COPD, piper izophrenia, HIV. The patient was on meropenem and Bactrim at [facility] and that symptom developed , and she was transferred to hospital for further investigation. Past Medical History: As per HPI. Social History: Nonsmoker, nondrinker. Lives at [facility]. Family History: Noncontributory. Medications: Meropenem and vancomycin. Allergies: CODEINE AND PENICILLIN. Review of Systems: Unable to obtain as patient is not really cooperative in answering questions. Physical Examination: General: This is a 58-year-old female, lying in bed, not in any acute cardiopulmonary distress. Vital Signs: Temperature 97, pulse 95, respirations 18, blood pressure 114/80. HEENT: Unremarkable. Neck: Supple. Lungs: Basal crackles. Heart: S1, S2. Regular. Abdomen: Soft, nontender. Bowel sounds present. Extremities: No edema. Laboratory Data: WBC 4.8, hemoglobin 12.8, platelets are 178. Chemistry shows sodium 142, potassium 4, chloride 111, bicarb 27, BUN 8, creatinine 0.5, glucose is 92. Microbiology Data: Blood cultures, no preliminary growth in 24 hours. Urine cultures growing more t nuñez 100,000 yeast; sensitivity and specificity pending. Urinalysis shows many yeast and budding yeas t present with wbc 5 to 30. Assessment And Plan: Funguria with more than 100,000 yeast present. We will recommend to start the patient on Diflucan 100 mg p.o. daily for 10 days. Altered mental status improving. Patient with hi story of schizophrenia. Continue antibiotic and supportive care. We will follow patient as needed. Previous cultures from 09/10 has Escherichia coli and blood cultures, Staphylococcus hominis. Thank you, Dr. Mason for consult. NF/MODL Voice ID: [id number] Report ID: [id number]
[2019-09-26] MEDS ORDERED: VANCOMYCIN 1.5 GM in NA CHLORIDE 0.9% 500 ML IVPB SCH ×2
--- NOTE | 2019-09-26 05:59 | DS ---
Date of Discharge: 09/25/2019 Consultants: Dr. Damian with Infectious Disease, Dr. Coto with Psychiatry. Admitting Diagnoses: 1. Acute metabolic encephalopathy. 2. Hypotension due to volume depletion. 3. Acute dehydration. 4. Hypothermia. 5. Recent extended-spectrum beta-lactamases Escherichia coli urinary tract infection. 6. Recent bacteremia secondary to Staphylococcus hominis. 7. Schizophrenia. 8. Depression with anxiety. 9. Human immunodeficiency virus. 10. Chronic obstructive pulmonary disease, chronic bronchitis. Discharge Diagnoses: 1. Acute metabolic encephalopathy resolved likely secondary to dehydration and hypotension. 2. Acute hypotension, improved. 3. Hypothermia, corrected. 4. History of extended-spectrum beta-lactamases Escherichia coli urinary tract infection, currently on meropenem. 5. History of bacteremia secondary to Staphylococcus hominis. 6. Urine fungal infection on micafungin. 7. History of schizophrenia. 8. Human immunodeficiency virus, chronic, on antiretrovirals. 9. Obesity, body mass index 32. 10. Depression with anxiety. 11. Rhabdomyolysis. Hospital Course: Patient is a 58-year-old female who was recently discharged on 09/13/2019 for similar symptoms of altered mental status which was due to urinary tract infection. Patient was found to have ESBL E coli as well as Staph hominis bacteremia. Patient was discharged with PICC line and treatment for her UTI and bacteremia. Patient returns to the ER from nursing facility due to altered mental status. Patient was found to be dehydrated, hypotensive, and also hypothermic. Patient was resuscitated with IV fluids. [facility] was placed in the ICU. Her mental status slowly improved. Her blood pressure also improved. Her temperature was back to normal. Repeat UA showed funguria with yeast growing in the cultures. She was started on mycamin due to drug interactions with diflucan. Spoke with Dr. Damian at length. Her UA showed only a few WBC which is likely residual from previous infection. She also has been on broad spectrum IV abx therefore leading to yeast in the bladder. He recommends no further treatment and to repeat UA in a week. She has no signs of sepsis, no fungus ball on CT scan, no flank pain and ascending infection and her WBC in normal. Her WBC count remained stable. Her tox screen was negative. Her electrolytes also remained stable. She did have elevated CK level, which improved with IV fluid hydration. Thyroid level was normal. Repeat blood cultures were also negative. Patient was initially started on Diflucan, however, was switched to micafungin due to interactions with her psychiatric medications. Infectious Disease was consulted for her funguria. Patient was also seen by Psychiatry for medication adjustments regarding her psychiatric medications. She is on multiple second generation antipsychotics and high dose of Cogentin. Spoke with Dr. Coto with Psychiatry. He agreed with discontinuing the Fanapt. He increased the dose of Cymbalta and discontinued the Depakote. Her Cogentin dose was also decreased. Patient will need to follow up with him in 2 weeks. Overall, patient did well. She was then cleared for discharge back to nursing facility. Patient will need to follow up with primary care physician in 2 to 3 days, return to ER for worsening condition. Follow up with Dr. Coto in 2 weeks, psychiatrist. Follow up with Infectious Disease, Dr. Damian in 2 weeks. Repeat UA in 1 week. DC PICC line once IV abx completed. Medications: As per medication reconciliation list. Diet: Heart healthy. Activity: As tolerated. Physical Examination: General: Awake, alert, oriented x3, not in any acute distress. Obese female. CV: S1-S2. Respiratory: Moving air well bilaterally. Abdomen: Abdomen is soft, nontender, nondistended. Positive bowel sounds. Extremities: No clubbing, cyanosis, or edema. Neurologic: Nonfocal. Patient is hard of hearing. Patient was encouraged to keep hydrated. Total time spent discharging patient was 36 minutes. ENRIQUE Voice ID: [id number] Report ID: [id number] [facility]
--- NOTE | 2019-09-26 08:17 | CON ---
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 Subjective: Ms. Lucia Arias is a 58-year-old female, admitted via the ER on account of altered mental status secondary to acute UTI, was also found to be hypotensive on admission. The pat ient also has psychiatric issues significant for bipolar disorder as well as schizophrenia, on multip le psychotropic medications, which include Cogentin 1 mg daily, Depakote 250 mg p.o. b.i.d., Trilepta l 150 mg PO BID and Risperidone. as well as On evaluation, patient admits mild depression. No feeli ngs of hopelessness or helplessness. No suicidal or homicidal ideation. She states her appetite is fair. Denies psychotic symptoms. She does endorse having anxiety symptoms, which she described as e xcessive worrying about being in the hospital and wanted to be [facility], w here she is a resident. Otherwise, no history of panic attack. Since admission, there is no history of panic episode. Patient has been compliant with medications. She reports her sleep is good. On chart review, she is currently on antibiotics for her urinary tract infection and this has seems to b e improving. CT scan done on admission revealed no significant findings, both head and abdominal. Objective: Vital Signs: Blood pressure is 96/62, O2 sat on room air is 96%, pulse rate is 93, tempe rature is 97 degrees Fahrenheit, respiratory rate 18. Mental Status: Patient is well-nourished female, looked stated age, not in any acute distr ess. Dressed in hospital gown, was lying in bed, watching TV. She is fairly cooperative with interv iew. Patient was noted to be hard of hearing. No stereotype movement. Speech is spontaneous essent ially normal. Concentration is fair. Memory is also fair. Mood she described as worried affect mood congruent. Thought process mostly circumstantial, non-flig ht of ideas. Thought content: No delusional thinking. No suicidal or homicidal ideation. No rumin ation or obsession. Insight and judgment, impulse control: poor. No auditory or visual hallucinatio n. Fund of knowledge verage fair. Diagnoses: A 58-year-old , resident of jail facility with chronic history of bipolar disorder, schizophrenia, and multiple presentation to the ER in 2017 for suicidal ideation, admitted for altered mental status secondary to UTI. 1.Bipolar disorder, most recent episode depressed, mild. 2.History of schizophrenia. 3.Rule out schizoaffective disorder, bipolar type. Plan And Recommendations: 1.Increase Cymbalta to 90 mg p.o. daily for depressive and anxiety symptoms. 2.Continue Trileptal 150 mg p.o. b.i.d. for mood stability. 3.Increase risperidone to 2 mg p.o. daily for mood stabilization. 4.Discontinue Depakote 50 mg p.o. b.i.d. 5.Continue Cogentin 1 mg p.o. 6.Patient to follow up with psychiatrist in 2 weeks following discharge. GABRIELA/JOHN Voice ID: [id number] Report ID: [id number]
[2019-09-26] MEDS ORDERED: DULOXETINE 30 MG CAP PO SCH (09:00)
[2019-09-26] MEDS ORDERED: RISPERIDONE 1 MG TABLET PO SCH (09:00)
--- OUTSIDE RECORDS SUMMARY | 2019-10-07 11:31 | XMS REPORT ---
[...] Start End Status Dosage System Date Lipitor [facility] 37238246827 40 MG Orally Active 1 tablet Once a day Gabapentin [facility] 63622913212 300 MG Orally Active 1 capsule Once a day Ultram [facility] 01925617639 50 MG Orally Active 1 tablet as every 6 hrs needed ProAir HFA [facility] 78052654810 108 (90 Base) Active 2 puffs as MCG/ACT needed Inhalation every 6 hrs Benztropine [facility] 48435423194 1 MG/ML Active 1 ml Mesylate Injection Once a day Vitamin D3 [facility] 49452319061 1000 UNIT Active 1 capsule Orally Once a day Depakote [facility] 71724373277 125 MG Orally Active as directed Sprinkles Trileptal [facility] 20228525621 150 MG Orally Active 2 tablets Twice a day Triumeq [facility] 58969126558 600-50-300 MG Active 1 tablet Orally Once a day Milk of [place] 10731423390 400 MG/5ML Active 5 ml as Magnesia Orally Four needed times a day Aspirin [facility] 53890813668 325 MG Orally Active 1 tablet Once a day Tramadol HCl [facility] 00531619574 50 MG Orally Active 1 tablet as every 6 hrs needed Butrans [facility] 70497578918 10 MCG/HR Active 1 patch to Transdermal skin Risperdal [facility] 99003113300 1 MG Orally Active 1 tablet Once a day Spiriva [facility] 25620839424 18 MCG Active 1 capsule HandiHaler Inhalation Once a day Lantus [facility] 20506690521 100 UNIT/ML Active as directed Subcutaneous Cymbalta [facility] 15335178841 60 MG Orally Active 1 capsule Once a day Fanapt [facility] 95912769149 8 MG Orally Active 1 tablet Twice a day Results No Known Results Summary Purpose eClinicalWorks Submission
--- OUTSIDE RECORDS SUMMARY | 2019-10-07 11:31 | XMS REPORT ---
:1960 [facility] [address] [place] [address] Care Team Providers Name Role Phone Unavailable [...] 0.6-1.3 CALCIUM (test code=CA) 8.4 mg/dL 8.0-10.5 [facility] PHONE# for [phone] or [phone] PHONE , FAX# [facility] W/AUTO [id number] 02:13:00 Test Item Value Reference Range Comments [...] 0.0-0.1 MANUAL DIFF REQUIRED (test code=MDIFF) NO [facility] PHONE# for [phone] or [phone] PHONE , FAX#
--- OUTSIDE RECORDS SUMMARY | 2019-10-07 11:31 | XMS REPORT ---
:1960 Author Organization [facility] Address [address] [place] [phone] Phone Allergies, Adverse Reactions, Alerts Allergy Name Reaction Description Start Date Severity Status Provider CODEINE Critical Active Husam Vital MD PENICILLIN Critical Active Husam Vital MD Conditions or Problems Problem Name Problem Onset Status Entry Provider Comment Standard Annotate Code Date Date Description DIZZINESS 780.4 Active Husam Dizziness and 06/29 06/29 Zahraa giddiness Hyperlipidemi 272.4 Active Husam Other and a 06/17 02/21 Zahraa unspecified hyperlipidemia Preventive V70.0 Active Husam Routine general health care 01/03 01/03 Zahraa medical examination at a health care facility Screening, [...] 2012 Active Husam Human hussein 150 12/13 Zahraa immunodeficiency MD virus [HIV] disease Hysterectomy, V88.01 2002 Active Husam Acquired absence History of 07/07 Nem[place]k of both cervix MD and uterus SCHIZOPHRENIA 295.90 1993 Active Husam Unspecified 03/18 Nemandrew schizophrenia, MD unspecified state Screening for V77.91 Inactive Husam Screening for hyperlipidemi 06/17 06/17 Zahraa lipoid disorders a Medication List Medication Instructions Start Stop Generic NDC Status Provider Patient Date Date Name Instruction BUPROPION HCL 1 By Mouth BUPROPION HCL 01423574482 Active Husam Active 75 MG ORAL Twice a Day [place] TABLET ASPIRIN 325 1 By Mouth ASPIRIN 43506881839 Active Husam Active MG ORAL Every Day [place] TABLET BREO ELLIPTA 1 FLUTICASONE 23333550375 Active Husam Active 100-25 inhalation FUROATE-VILANT [place] MCG/INH Every Day TONO INHALATION AEROSOL POWDER BREATH ACTIVATED DEPAKOTE 250 2 by mouth DIVALPROEX 50107296782 Active Husam Active MG ORAL twice a day SODIUM Nemandrew TABLET DELAYED RELEASE FANAPT 8 MG 1 Twice a ILOPERIDONE 84238808626 Active Husam Active ORAL TABLET Day [place] GABAPENTIN 1 by mouth GABAPENTIN 25855015176 Active Husam Active 300 MG ORAL three times [place] CAPSULE a day LANTUS 100 32 U sc INSULIN 86516957681 Active Husam Active UNIT/ML Every pm GLARGINE Zahraa SUBCUTANEOUS SOLUTION RISPERDAL 1 1 by mouth RISPERIDONE 35438782568 Active Husam Active MG ORAL once a day [place] TABLET TRAMADOL HCL 1 Three TRAMADOL HCL 77106507415 Active Husam Active 50 MG ORAL Times a Day Nemecekellie TABLET TRILEPTAL 150 1 Twice a OXCARBAZEPINE 38785749495 Active Husam Active MG ORAL Day [place] TABLET BENZTROPINE BENZTROPINE 98108599725 Active Remy Active MESYLATE MESYLATE TABS Perdomo TABLET DULOXETINE DULOXETINE HCL 75129510680 Active Remy Active HCL CAPSULE CPEP Predomo DELAYED MD RELEASE PARTICLES LIPITOR ATORVASTATIN 36600326337 Active Remy Active TABLET CALCIUM TABS Perdomo PROAIR HFA 2 puffs ALBUTEROL 45365775020 Active Husam Active 108 (90 Base) every 4 - 6 SULFATE [place] MCG/ACT hours as MD INHALATION needed AEROSOL SOLUTION SPIRIVA Inhale 1 TIOTROPIUM 40942509391 Active Husam Active HANDIHALER 18 cap Every BROMIDE [place] MCG Day MONOHYDRATE MD INHALATION CAPSULE TRIUMEQ One tablet ABACAVIR-DOLUT 62539001490 Active Husam Active 600-50-300 MG daily with EGRAVIR-LAMIVU [place] ORAL TABLET or without D food MECLIZINE HCL 1 by mouth MECLIZINE 683745 MECLIZINE Inactive 25 MG ORAL 3 times a HCL 25 MG HCL TABLET day as ORAL TABLET needed for dizziness NICOTINE NICOTINE 144501 NICOTINE Inactive 14-7 21-14-7 MG/24HR MG/24HR TRANSDERMAL TRANSDERMAL KIT KIT NAPROXEN 500 1 by mouth NAPROXEN 500 629160 NAPROXEN Inactive MG ORAL twice a MG ORAL TABLET day as TABLET needed for pain OMEPRAZOLE OMEPRAZOLE OMEPRAZOLE Inactive CPDR CPDR CPDR SEROQUEL SEROQUEL QUETIAPINE Inactive TABLET TABLET FUMARATE TABS VENLAFAXINE VENLAFAXINE VENLAFAXINE Inactive HCL TABLET HCL TABLET HCL TABS MECLIZINE 1 by mouth MECLIZINE 62598489768 No Husam Active HCL 25 MG 3 times a HCL Longer [place] ORAL day as Active MD TABLET needed for dizziness NICOTINE NICOTINE 16584840354 No Husam Active 21-14-7 Longer [place] MG/24HR Active TRANSDERMA L KIT NAPROXEN 1 by mouth NAPROXEN 75720775587 No Husam Active 500 MG twice a Longer [place] ORAL day as Active MD TABLET needed for pain OMEPRAZOLE OMEPRAZOLE 10819254081 No Husam Active CPDR CPDR Longer [place] Active SEROANGEL LUISL QUETIAPINE 32941201070 No Husam Active TABLET FUMARATE Longer [place] TABS Active VENJAIMIE VENLAFAXIN 16482178170 No Husam Active E HCL E HCL [...] PEDIATRIC PNEUMOCOCCAL given elsewhere pneumococcal conjugate VACCINE ([id number]) #1 vaccine, 13 valent influenza immunization given elsewhere influenza virus vaccine, (Flu Vax) has been unspecified formulation administered Vital Signs Date Name Value Unit Range Description blood pressure, diastolic 60 mm[Hg] BP govea blood pressure, systolic 92 mm[Hg] BP sys height E&M 62 [in_us] Bdy height pulse rate E&M 95 /min Heart rate temperature E&M 97.3 [degF] Body temperature weight E&M 180 [lb_av] Weight Measured blood pressure, diastolic 80 mm[Hg] BP govea [...] temperature weight E&M 188.25 [lb_av] Weight Measured Diagnostic Results Date Name Value Unit Range Description Lab Report: Lipid Panel - Chemistry very low density lipoproteins 35 mg/dL 5-40 Lab Report: CD4/CD8 Ratio Profile, Comp. Metabolic Panel (14), Lipid Wetzel ... - Chemistry hepatitis B surface antigen Negative Negative Lab Report: CD4/CD8 Ratio Profile, Comp. Metabolic Panel (14), RNA, Real ... - Chemistry chloride, serum 99 mmol/L 96-106 Lab Report: CD4/CD8 Ratio Profile, Comp. Metabolic Panel (14), Lipid Wetzel ... - Microbiology hepatitis A antibody, total Negative Negative Lab Report: CD4/CD8 Ratio Profile, Comp. Metabolic Panel (14), RNA, Real ... - Chemistry urea nitrogen, blood 12 mg/dL 6-24 Preload: Historical Preload - Hematology Quantiferon Gold TB blood test for tuberculosis screening negative Office Visit: Adult Followup TREATMENT ROOM 2 - Serology human leukocyte antigen B57 negative Lab Report: CD4/CD8 Ratio Profile, Comp. Metabolic Panel (14), RNA, Real ... - Hematology mean corpuscular hemoglobin 34.2 G/DL % 31.5-35.7 concentration, RBC erythrocyte (RBC) count 4.20 X10E6/UL 10*6/mm3 3.77-5.28 Lab Report: CD4/CD8 Ratio Profile, Comp. Metabolic Panel (14), Lipid Wetzel ... - Serology hepatitis C antibody, serum 0.3 0.0-0.9 Lab Report: CD4/CD8 Ratio Profile, Comp. Metabolic Panel (14), RNA, Real ... - Chemistry absolute CD8 385 443-011 6624/07/11 Absolute Neutrophils 5.3 X10E3/UL 10*3/uL 1.4-7.0 Lab Report: Lipid Panel - Chemistry LDL cholesterol, serum 58 mg/dL 0-99 Lab Report: CD4/CD8 Ratio Profile, Comp. Metabolic Panel (14), RNA, Real ... - Chemistry urea nitrogen/creatinine ratio, serum 20 9-23 Lab Report: CD4/CD8 Ratio Profile, Comp. Metabolic Panel (14), RNA, Real ... - Hematology mean corpuscular volume, RBC 102 fL 79-97 Lab Report: Lipid Panel - Chemistry HDL cholesterol, serum 34 mg/dL >39 Lab Report: CD4/CD8 Ratio Profile, Comp. Metabolic Panel (14), RNA, Real ... - Hematology monocytes as percent of blood leukocytes 5 % Not Estab. Lab Report: CD4/CD8 Ratio Profile, Comp. Metabolic Panel (14), RNA, Real ... - Chemistry albumin/globulin ratio, serum 1.4 1.2-2.2 creatinine, serum 0.61 mg/dL 0.57-1.00 Lab Report: Lipid Panel - Chemistry cholesterol, serum 127 mg/dL 100-199 Lab Report: CD4/CD8 Ratio Profile, Comp. Metabolic Panel (14), RNA, Real ... - Chemistry bilirubin, serum, total 0.4 mg/dL 0.0-1.2 Lab Report: CD4/CD8 Ratio Profile, Comp. Metabolic Panel (14), RNA, Real ... - Hematology Eosinophil Absolute Count 0.1 X10E3/UL 10*3/uL 0.0-0.4 Lab Report: Chlamydia/GC Amplification - Lab chlamydia DNA probe Negative Negative Lab Report: CD4/CD8 Ratio Profile, Comp. Metabolic Panel (14), RNA, Real ... - Chemistry aspartate aminotransferase (SGOT), serum 9 U/L 0-40 Lab Report: CD4/CD8 Ratio Profile, Comp. Metabolic Panel (14), RNA, Real ... - Hematology red blood cell distribution width 13.4 % 12.3-15.4 leukocyte count, blood 7.1 X10E3/UL 10*3/mm3 3.4-10.8 Lab Report: CD4/CD8 Ratio Profile, Comp. Metabolic Panel (14), RNA, Real ... - Chemistry potassium, serum 4.4 mmol/L 3.5-5.2 albumin, serum 4.0 g/dL 3.5-5.5 immature granulocytes, percentage of total cells, 0 % Not Estab. blood Office Visit: Adult Followup/H & P/RM # 2 - Hematology T-helper cells (CD4) count, lowest absolute value 150 Lab Report: CD4/CD8 Ratio Profile, Comp. Metabolic Panel (14), RNA, Real ... - Hematology lymphocyte count, blood, automated 1.4 X10E3/UL 10*3/mm3 0.7- 3.1 hematocrit, blood 42.7 % 34.0-46.6 Lab Report: Chlamydia/GC Amplification - Microbiology Neisseria gonorrhoeae DNA probe Negative Negative Lab Report: CD4/CD8 Ratio Profile, Comp. Metabolic Panel (14), RNA, Real ... - Chemistry sodium, serum 140 mmol/L 134-144 Lab Report: CD4/CD8 Ratio Profile, Comp. Metabolic Panel (14), Lipid Wetzel ... - Serology toxoplasma gondii antibody, IgG <3.0 0.0-5.9 Lab Report: CD4/CD8 Ratio Profile, Comp. Metabolic Panel (14), RNA, Real ... - Hematology neutrophils as percent of blood leukocytes 75 % Not Estab. basophils as percent of blood leukocytes 0 % Not Estab. Internal Correspondence: Pre-Visit Planning H& P Marco A 03/18/15 @ 10:00am [facility] - Other List of providers caring for Elodia Cespedes MD, Husam Vital MD, patient Magdalena Segura MD, Rach REAP, Samuel WOLFE, Myke CLEMENTC, Lexy Ward MA, Christiano James M.A. ,, [...] RNA, Real ... - Chemistry CD4/CD8 ratio 1.00 0.92-3.72 carbon dioxide, venous blood 29 mmol/L 20-29 Lab Report: CD4/CD8 Ratio Profile, Comp. Metabolic Panel (14), Lipid Wetzel ... - Serology hepatitis B core antibody, total Negative Negative Lab Report: Lipid Panel - Chemistry triglyceride, serum, fasting 174 mg/dL 0-149 Lab Report: CD4/CD8 Ratio Profile, Comp. Metabolic Panel (14), RNA, Real ... - Chemistry calcium, serum 9.3 mg/dL 8.7-10.2 alanine aminotransferase (SGPT), serum 12 U/L 0-32 Lab Report: CD4/CD8 Ratio Profile, Comp. Metabolic Panel (14), RNA, Real ... - Hematology mean corpuscular hemoglobin, RBC 34.8 pg 26.6-33.0 Lab Report: CD4/CD8 Ratio Profile, Comp. Metabolic Panel (14), RNA, Real ... - Chemistry protein, total, serum 6.8 g/dL 6.0-8.5 alkaline phosphatase, serum 102 U/L 39-117 Lab Report: CD4/CD8 Ratio Profile, Comp. Metabolic Panel (14), RNA, Real ... - Hematology T-helper cells (CD4) as percent of blood 27.5 % 30.8-58.5 lymphocytes hemoglobin, blood 14.6 g/dL 11.1-15.9 T-suppressor cells (CD8) as percent of blood 27.5 % 12.0-35.5 lymphocytes lymphocytes as percent of blood leukocytes 19 % Not Estab. Lab Report: CD4/CD8 Ratio Profile, Comp. Metabolic Panel (14), RNA, Real ... - Genetics/fertility eGFR if 115 mL/min/1.73m2 >59 Lab Report: CD4/CD8 Ratio Profile, Comp. Metabolic Panel (14), RNA, Real ... - Hematology basophil count, absolute 0.0 x10E3/uL 0.0-0.2 Lab Report: CD4/CD8 Ratio Profile, Comp. Metabolic Panel (14), RNA, Real ... - Chemistry globulin, serum 2.8 1.5-4.5 Estimated Glomerular Filtration Rate (calc) 100 mL/min/1.73m2 > 59 Lab Report: CD4/CD8 Ratio [...] Hematology eosinophils as percent of blood leukocytes 1 % Not Estab. Lab Report: CD4/CD8 Ratio Profile, Comp. Metabolic Panel (14), RNA, Real ... - Chemistry blood glucose, random 131 mg/dL 65-99 Lab Report: CD4/CD8 Ratio Profile, Comp. Metabolic Panel (14), RNA, Real ... - Hematology monocyte count, blood, automated 0.3 X10E3/UL 10*3/uL 0.1-0.9 T-helper cells (CD4) count 385 /UL uL 359-1519 platelet count 227 X10E3/UL 10*3/mm3 150-450 Encounters Date Encounter Provider Code Facility Ofc Vst, Est Level IV Husam Vital MD CPT-71339 [facility] 10:09:08 CDT Ofc Vst, Est Level IV Husam Vital MD CPT-59381 [facility] 08:34:00 CDT Ofc Vst, Est Level IV Husam Vital MD CPT-42358 [facility] 08:19:52 CDT Ofc Vst, Est Level IV Husam Vital MD CPT-45093 [facility] 08:52:18 CDT Ofc Vst, Est Level IV Husam Vital MD CPT-77886 [facility] 09:44:49 [employer]IDER Ofc Vst, Est Level IV Husam Vital MD CPT-21152 [facility] 09:00:51 CDT Ofc Vst, Est Level IV Hsuam Vital MD CPT-92326 [facility] 08:21:03 CDT Ofc Vst, Est Level IV Husam Vital MD CPT-68957 [facility] 11:00:32 CDT Ofc Vst, Est Level IV Husam Vital MD CPT-26666 [facility] 09:03:16 [employer] Ofc Vst, Est Level IV Husam Vital MD CPT-49244 [facility] 08:55:36 CDT Ofc Vst, Est Level III Husam Vital MD CPT-02580 [facility] 15:31:26 CDT Est Patient Detailed - Remy Perdomo MD CPT-67700 [facility] 09:51:50 CDT 82511 Ofc Vst, Est Level III Husam Vital MD CPT-01272 [facility] 10:35:49 CDT Ofc Vst, New Level IV Husam Vital MD CPT-64375 [facility] 11:09:09 CDT Procedures Code Procedure Name Date Entry Date Standard Description CPT-46377 Hepatitis B - Adult 10:55:33 CDT CPT-41742 Hepatitis B - Adult 08:58:24 [employer] RIDER CPT-56479 Hepatitis B - Adult 08:51:40 CDT CPT-68444 Pneumovax Vaccine PPSV23 08:51:40 CDT CPT-87861 Handling of specimen for transfer 09:52:50 CDT CPT-28505 Venipuncture 09:52:50 CDT
== END 2019-09-25 16:28 | DRG 640 ==
LOC: ER 13:48 → ERHOLD 16:56 → 3RD-ICU 18:05 → 4TH 09-22 17:00
PROVIDERS: ADMIT Family Medicine; ATTEND Family Medicine
DX: E86.0 Dehydration (principal); G93.41 Metabolic encephalopathy; B37.49 Other urogenital candidiasis; N39.0 Urinary tract infection, site not specified; I95.9 Hypotension, unspecified; R68.0 Hypothermia, not associated with low environmental temperature; Z21 Asymptomatic human immunodeficiency virus [HIV] infection status; E66.9 Obesity, unspecified; Z68.32 Body mass index [BMI] 32.0-32.9, adult; F41.8 Other specified anxiety disorders; J44.9 Chronic obstructive pulmonary disease, unspecified; B96.20 Unspecified Escherichia coli [E. coli] as the cause of diseases classified elsewhere
CPT/HCPCS: 36415; 51702; 70450; 71045; 71260; 74177; 80048; 80076; 80202; 80307; 80320; 80329; 81003; 81015; 82140; 82550; 82553; 82805; 82947; 83605; 83690; 83735; 84145; 84439; 84443; 84484; 85025; 85610; 85730; 87040; 87086; 87088; 93005; 94640; 96361; 96365; 96366; 96375; 99285; J0692; J1630; J1650; J1815; J2248; J2405; J3370; J3411; J3475; J7030; J7040; J7042; J7605; Q9967

== ENCOUNTER 2020-02-02 19:12 | Emergency (ER) | payer OTHER ==
--- OUTSIDE RECORDS SUMMARY | 2020-02-02 19:15 | XMS REPORT ---
:1960 [facility] Address [address] [place] [address] Care Team Providers Name Role Phone Unavailable [...] 0.6-1.3 CALCIUM (test code=CA) 8.4 mg/dL 8.0-10.5 [facility] PHONE# maq [phone] or [phone] PHONE [phone], FAX# [phone] W/AUTO [id number] 02:13:00 Test Item Value Reference Range Comments [...] 0.0-0.1 MANUAL DIFF REQUIRED (test code=MDIFF) NO [facility] PHONE# for [phone] or [phone] PHONE , FAX#
--- OUTSIDE RECORDS SUMMARY | 2020-02-02 19:15 | XMS REPORT ---
:1960 Author Organization [facility] Address [address] [place] [phone] Phone Allergies, Adverse Reactions, Alerts Allergy Name [...] BUPROPION HCL 1 By Mouth BUPROPION HCL 20558843029 Active Husam Active 75 MG ORAL Twice a Day [place] TABLET ASPIRIN 325 1 By Mouth ASPIRIN 79314555973 Active Husam Active MG ORAL Every Day [place] TABLET BREO ELLIPTA 1 FLUTICASONE 23051836465 Active Husam Active 100-25 inhalation FUROATE-VILANT [place] MCG/INH Every Day TONO INHALATION AEROSOL POWDER BREATH ACTIVATED DEPAKOTE 250 2 by mouth DIVALPROEX 20793259025 Active Husam Active MG ORAL twice a day SODIUM [place] TABLET DELAYED RELEASE FANAPT 8 MG 1 Twice a ILOPERIDONE 95115924477 Active Husam Active ORAL TABLET Day [place] GABAPENTIN 1 by mouth GABAPENTIN 63678350664 Active Husam Active 300 MG ORAL three times [place] CAPSULE a day LANTUS 100 32 U sc INSULIN 58805195108 Active Husam Active UNIT/ML Every pm GLARGINE Zahraa SUBCUTANEOUS SOLUTION RISPERDAL 1 1 by mouth RISPERIDONE 09119079197 Active Husam Active MG ORAL once a day [place] TABLET TRAMADOL HCL 1 Three TRAMADOL HCL 17935193025 Active Husam Active 50 MG ORAL Times a Day [place] TABLET TRILEPTAL 150 1 Twice a OXCARBAZEPINE 65248983883 Active Husam Active MG ORAL Day [place] TABLET BENZTROPINE BENZTROPINE 40171816940 Active Remy Active MESYLATE MESYLATE TABS Perdomo TABLET DULOXETINE DULOXETINE HCL 12957709898 Active Remy Active HCL CAPSULE CPEP Perdomo DELAYED MD RELEASE PARTICLES LIPITOR ATORVASTATIN 37417437912 Active Remy Active TABLET CALCIUM TABS Perdomo PROAIR HFA 2 puffs ALBUTEROL 79941154796 Active Husam Active 108 (90 Base) every 4 - 6 SULFATE [place] MCG/ACT hours as MD INHALATION needed AEROSOL SOLUTION SPIRIVA Inhale 1 TIOTROPIUM 77177689280 Active Husam Active HANDIHALER 18 cap Every BROMIDE [place] MCG Day MONOHYDRATE MD INHALATION CAPSULE TRIUMEQ One tablet ABACAVIR-DOLUT 56071265723 Active Husam Active 600-50-300 MG daily with EGRAVIR-LAMIVU [place] ORAL TABLET or without D food MECLIZINE HCL 1 by mouth MECLIZINE 202019 MECLIZINE Inactive 25 MG ORAL 3 times a HCL 25 MG HCL TABLET day as ORAL TABLET needed for dizziness NICOTINE NICOTINE 264685 NICOTINE Inactive 14-7 21-14-7 MG/24HR MG/24HR TRANSDERMAL TRANSDERMAL KIT KIT NAPROXEN 500 1 by mouth NAPROXEN 500 130241 NAPROXEN Inactive MG ORAL twice a MG ORAL TABLET day as TABLET needed for pain OMEPRAZOLE OMEPRAZOLE OMEPRAZOLE Inactive CPDR CPDR CPDR SEROQUEL SEROQUEL QUETIAPINE Inactive TABLET TABLET FUMARATE TABS VENLAFAXINE VENLAFAXINE VENLAFAXINE Inactive HCL TABLET HCL TABLET HCL TABS MECLIZINE 1 by mouth MECLIZINE 24223045085 No Husam Active HCL 25 MG 3 times a HCL Longer [place] ORAL day as Active MD TABLET needed for dizziness NICOTINE NICOTINE 88636485927 No Husam Active 21-14-7 Longer [place] MG/24HR Active TRANSDERMA L KIT NAPROXEN 1 by mouth NAPROXEN 31776311946 No Husam Active 500 MG twice a Longer [place] ORAL day as Active MD TABLET needed for pain OMEPRAZOLE OMEPRAZOLE 46023991049 No Husam Active CPDR CPDR Longer [place] Active SEROANGEL LUISL QUETIAPINE 72014872308 No Husam Active TABLET FUMARATE Longer [place] TABS Active VENJAIMIE VENLAFAXIN 99794957025 No Husam Active E HCL E HCL [...] PEDIATRIC PNEUMOCOCCAL given elsewhere pneumococcal conjugate VACCINE ([id number]) #1 vaccine, 13 valent influenza immunization given [...] Real ... - Chemistry absolute CD8 [phone] 3823/07/11 Absolute Neutrophils 5.3 X10E3/UL 10*3/uL 1.4-7.0 Lab [...] P Marco A 03/18/15 @ 10:00am [facility] - Other List of providers caring [...] Vst, Est Level IV Husam Vital MD CPT-60707 [facility] 10:09:08 CDT Ofc Vst, Est Level IV Husam Vital MD CPT-37015 [facility] 08:34:00 CDT Ofc Vst, Est Level IV Husam Vital MD CPT-02152 [facility] 08:19:52 CDT Ofc Vst, Est Level IV Husam Vital MD CPT-84937 [facility] 08:52:18 CDT Ofc Vst, Est Level IV Husam Vital MD CPT-02129 [facility] 09:44:49 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 Ofc Vst, Est Level IV Husam Vital MD CPT-60211 [facility] 09:00:51 CDT Ofc Vst, Est Level IV Husam Vital MD CPT-04908 [facility] 08:21:03 CDT Ofc Vst, Est Level IV Husam Vital MD CPT-35280 [facility] 11:00:32 CDT Ofc Vst, Est Level IV Husam Vital MD CPT-93852 [facility] 09:03:16 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 Ofc Vst, Est Level IV Husma Vital MD CPT-61858 [facility] 08:55:36 CDT Ofc Vst, Est Level III Husam Vital MD CPT-28285 [facility] 15:31:26 CDT Est Patient Detailed - Remy Perdomo MD CPT-79167 [facility] 09:51:50 CDT 34602 Ofc Vst, Est Level III Husam Vital MD CPT-21925 [facility] 10:35:49 CDT Ofc Vst, New Level IV Husam Vital MD CPT-36735 [facility] 11:09:09 CDT Procedures Code Procedure Name Date Entry Date Standard Description CPT-17580 Hepatitis B - Adult 10:55:33 CDT CPT-06987 Hepatitis B - Adult 08:58:24 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 CPT-08403 Hepatitis B - Adult 08:51:40 CDT CPT-44497 Pneumovax Vaccine PPSV23 08:51:40 CDT CPT-32602 Handling of specimen for transfer 09:52:50 CDT CPT-50081 Venipuncture 09:52:50 CDT
--- OUTSIDE RECORDS SUMMARY | 2020-02-02 19:15 | XMS REPORT ---
[...] Start End Status Dosage System Date Lipitor [facility] 64002760958 40 MG Orally Active 1 tablet Once a day Gabapentin [facility] 11852085922 300 MG Orally Active 1 capsule Once a day Ultram [facility] 22233132407 50 MG Orally Active 1 tablet as every 6 hrs needed ProAir HFA [facility] 98787290161 108 (90 Base) Active 2 puffs as MCG/ACT needed Inhalation every 6 hrs Benztropine [facility] 55957838635 1 MG/ML Active 1 ml Mesylate Injection Once a day Vitamin D3 [facility] 43254226647 1000 UNIT Active 1 capsule Orally Once a day Depakote [facility] 51204041869 125 MG Orally Active as directed Sprinkles Trileptal [facility] 52231645354 150 MG Orally Active 2 tablets Twice a day Triumeq [facility] 03067944489 600-50-300 MG Active 1 tablet Orally Once a day Milk of [place] 72785122310 400 MG/5ML Active 5 ml as Magnesia Orally Four needed times a day Aspirin [facility] 19113267428 325 MG Orally Active 1 tablet Once a day Tramadol HCl [facility] 29805198731 50 MG Orally Active 1 tablet as every 6 hrs needed Butrans [facility] 13627606026 10 MCG/HR Active 1 patch to Transdermal skin Risperdal [facility] 17773708498 1 MG Orally Active 1 tablet Once a day Spiriva [facility] 79276720751 18 MCG Active 1 capsule HandiHaler Inhalation Once a day Lantus [facility] 10702121386 100 UNIT/ML Active as directed Subcutaneous Cymbalta [facility] 84245745106 60 MG Orally Active 1 capsule Once a day Fanapt [facility] 04771522820 8 MG Orally Active 1 tablet Twice a day Results No Known Results Summary Purpose eClinicalWorks Submission
--- OUTSIDE RECORDS SUMMARY | 2020-02-02 19:23 | XMS REPORT ---
:1960 Author Name Admin, [place] Address Unavailable Unavailable , PROBLEMS Condition Status Date Provider Notes DIZZINESS active [facility] Hyperlipidemia active [facility] Preventive health care active [facility] Screening, colon cancer active [facility] Hip arthralgia active [facility] COPD active [facility] ENCOUNTERS Date Type Provider Location Encounter Diagnosis - Ambulatory Husam Weiner [facility] Adult UNK Encounter [place] [facility] Medicine - Ambulatory Husam Weiner [facility] Adult UNK Encounter [place] Medicine - Ambulatory Husam Weiner [facility] Adult UNK Encounter [facility] Nkechi Medicine Davey Moore - Ambulatory Marlee Oconnro [facility] Adult UNK Encounter Medicine - Ambulatory Husam Weiner [facility] Adult UNK Encounter [place] [facility] Medicine - Ambulatory Husam Weiner [facility] Adult UNK Encounter [place] [facility] Medicine - Ambulatory Husam Weiner [facility] Adult UNK Encounter [place] [facility] Medicine - Ambulatory Palmer Garcia [facility] Adult UNK Encounter Medicine - Ambulatory Husam Weiner [facility] Adult UNK Encounter [place] Medicine - Ambulatory Husam Weiner [facility] Adult UNK Encounter [place] Nkechi Medicine Mariscal - Ambulatory Meka Garcia UNK Encounter Behavioral [facility] - Ambulatory [facility]K En[facility] - Ambulatory [facility] UNK Encounter [place] [facility] Medicine - Ambulatory [facility] UNK Encounter [place] [facility] Medicine - Ambulatory [facility] UNK Encounter [place] [facility] Medicine - Ambulatory [facility] Adult UNK Encounter [place] Medicine - Ambulatory [facility] UNK Encounter [place] Medicine - Ambulatory [facility]iner [facility] Adult UNK Encounter [facility] Valentine Medicine Lance - Ambulatory Marlee Oconnor [facility] Adult UNK Encounter Medicine - Ambulatory Marlee [facility]nor [facility] Adult UNK Encounter Medicine - Ambulatory Marlee [facility] Adult UNK Encounter Medicine - Ambulatory [facility] UNK Encounter [place] [facility] Medicine - Ambulatory Marlee [facility] UNK Encounter [facility] - Ambulatory [facility] Adult UNK Encounter [place] Medicine - Ambulatory Marlee [facility]nor [facility] Adult UNK Encounter Medicine - Ambulatory [facility] Adult UNK Encounter [place] [facility] Medicine - Ambulatory [facility]iner [facility] Adult UNK Encounter [place] [facility] Medicine - Ambulatory [facility]iner [facility] Adult UNK Encounter [place] Medicine - Ambulatory [facility] Adult UNK Encounter Nemandrew [facility] Medicine - Ambulatory [facility]K Encounter [facility] - Ambulatory [facility] Adult UNK Encounter [place] Medicine - Ambulatory [facility] Adult Encounter Zahraa Haddad Medicine Obrien - Ambulatory Marlee [facility]nor [facility] Adult UNK Encounter Medicine - Ambulatory Marlee [facility] UNK Encounter [facility] - [facility]ulatory Marcelle Rosas [facility] UNK Encounter Services - Ambulatory [facility] UNK Encounter [facility] - Ambulatory [facility] UNK Encounter [facility] - Ambulatory [facility] UNK Encounter [facility] - Ambulatory [facility] Adult UNK Encounter [place] Medicine - Ambulatory [facility] Adult UNK Encounter [place] Medicine - Ambulatory [facility] Weiner [facility] Adult Hyperlipidemia Encounter [place] Nkechi Medicine Davey Velazco - Ambulatory [facility] Adult UNK Encounter [place] Medicine - Ambulatory [facility] Weiner [facility] Adult UNK Encounter [place] [facility] Medicine - Ambulatory Marcelle Rosas [facility] Social UNK Encounter Services - Ambulatory [facility] Adult UNK Encounter [place] Leigha Medicine Ankit Cooper - Ambulatory Verito Bethel [place] UNK Encounter Family Practice - Ambulatory Vanessa Tessa [facility] UNK Encounter Health Services - Ambulatory Husam Weiner [facility] Adult UNK Encounter [place] Medicine - Ambulatory Jose Lui [facility] UNK Encounter Marcelle Rosas [facility] Services - Ambulatory Marcelle Rosas [facility] Social UNK Encounter Services - Ambulatory Marcelle Rosas [facility] UNK Encounter Services - Ambulatory Angeles [facility] UNK Encounter - Ambulatory Husam Weiner [facility] Adult UNK Encounter Nemdav[place] [facility] Medicine - Ambulatory Luann Hugo [facility] UNK Encounter Medicine - Ambulatory [facility] Adult UNK Encounter [place] Medicine - Ambulatory [facility]am Weiner [facility] Adult UNK Encounter [place] Medicine - Ambulatory [facility]am [facility]iner [facility] Adult Encounter Nemecekellie Nkechi Medicine Davey Velazco - Ambulatory Richar [facility] Adult UNK Encounter Danish Medicine - Ambulatory Husam [facility]iner [facility] Adult UNK Encounter [place] [facility] - Ambulatory [facility]am [facility]iner [facility] Adult UNK Encounter [place] Ema Medicine Rosas Fonseca - Ambulatory Husam Weiner [facility] Adult UNK Encounter Nemdaviek Molly Medicine Juan A - Ambulatory Husam [facility]iner [facility] Adult UNK Encounter [place] [facility] Medicine - Ambulatory Husam [facility]iner [facility] Adult UNK Encounter [place] Medicine - Ambulatory Husam Weiner [facility] Adult UNK Encounter [place] Medicine - Ambulatory [facility] Adult DIZZINESS Encounter Nemandrew Nkechi Medicine Mariscal - Ambulatory [facility] Adult UNK Encounter Kai-Carlos Medicine - Ambulatory [facility] Adult UNK Encounter [place] Medicine - Ambulatory [facility] Adult UNK Encounter [place] Medicine - Ambulatory [facility]ital [facility] Adult Hyperlipidemia Encounter Nemandrew Kiron Medicine Lance - Ambulatory Choice [facility] Adult UNK Encounter Kai-Carlos Medicine - Ambulatory Marcelle Rosas [facility] Social UNK Encounter Services - Ambulatory Marcelle Rosas [facility] Social UNK Encounter [facility] - [facility] JoOY [facility]ies Jumbo Operator - Ambulatory Bailee Boykin [facility] UNK Encounter JoOY LX Therapies Jumbo Operator - Ambulatory Husam [facility]iner [facility] Adult UNK Encounter Zahraa [facility] Medicine - Ambulatory Hus[facility]iner [facility] Adult UNK Encounter Zahraa Medicine - Ambulatory Marcelle Rosas [facility] Social UNK Encounter Beau Rodriguez Services - Ambulatory Marcelle Rosas [facility] Social UNK Encounter Services - Ambulatory Shaye Boyd [facility] UNK Encounter Polina Rodriguez - Ambulatory Bailee Roman [place] UNK Encounter JoliShopcliq Jumbo Operator - Ambulatory Husam Weiner [facility] Adult UNK Encounter Zahraa Langston - Ambulatory Bailee Boykin [place] UNK Encounter Kyra Davison - Ambulatory Baltazar Davison Juanita [place] UNK Encounter - Ambulatory [facility] Adult UNK Encounter [place] Medicine - Ambulatory [facility] Adult UNK Encounter [place] Medicine - Ambulatory [facility] Adult UNK Encounter [place] Nkechi Medicine Mariscal - Ambulatory Richar [facility] Adult UNK Encounter [place] Medicine - Ambulatory Husam Weiner [facility] Adult UNK Encounter Nemdaviek Polina Medicine Ángel - Ambulatory [facility] Adult UNK Encounter [place] [facility] Medicine - Ambulatory Malu Valladares [facility] Adult UNK Encounter Medicine - Ambulatory [facility] Adult UNK Encounter [place] [facility] Medicine - Ambulatory Malu Hieu [facility] Adult UNK Encounter Medicine - Ambulatory Remy Perdomo [facility] Adult UNK Encounter [facility] Medicine - Ambulatory [facility] Weiner [facility] Adult UNK Encounter [place] Medicine - Ambulatory Husam Weiner [facility] Adult UNK Encounter [place] Medicine - Ambulatory Husam Weiner [facility] Adult Preventive health Encounter [place] Nkechi Medicine care [facility] - Ambulatory Husam Weiner [facility] Adult UNK Encounter [place] [facility] - Ambulatory Husam Weiner [facility] Adult UNK Encounter [place] [facility] Medicine - Ambulatory Tara Haley [facility] UNK Encounter Practice - Ambulatory Malu Hurst [facility] Adult UNK Encounter Medicine - Ambulatory [facility] UNK Encounter [facility] - Ambulatory F[facility] UNK Encounter [facility] - Ambulatory Husam Estrelladaviekellie [facility] UNK Encounter [place] Medicine - Ambulatory [facility] Adult UNK Encounter [place] Medicine - Ambulatory [facility] Adult Screening, colon Encounter [place] Nkechi Medicine cancer Mariscal Molly Velazco - Ambulatory Remy Perdomo [facility] UNK Encounter [facility] Medicine - Ambulatory Chiara Diallo [facility] UNK Encounter Medicine - Ambulatory [facility] Adult UNK Encounter [place] Medicine - Ambulatory Husma Vital [facility] Adult UNK Encounter [place] Medicine - Ambulatory [facility] V[facility] Adult Hip arthralgia Encounter [place] Nkechi Medicine Mariscal - Ambulatory Husam Zahraa Hus[facility] UNK Encounter [place] [facility] - Ambulatory Dilma Velizchance [facility] Social UNK Encounter Services - Ambulatory Remy Perdomo [facility] Adult UNK Encounter Medicine - Ambulatory Remy Perdomo [facility] Adult UNK Encounter Channin Leonard Medicine - Ambulatory Husam Weiner [facility] Adult UNK Encounter [place] [facility] Medicine - Ambulatory Husam Vital [facility] Adult UNK Encounter [place] [facility] Medicine - Ambulatory Chiara Diallo [facility] Adult UNK Encounter Medicine - Ambulatory Nkechi Mariscal [facility] Adult UNK Encounter Medicine - Ambulatory Chiara Diallo [facility] Adult UNK Encounter Medicine - Ambulatory Husam Weiner [facility] Adult UNK Encounter [place] [facility] Medicine - Ambulatory Husam Weiner [facility] Adult UNK Encounter [place] [facility] Medicine - Ambulatory Husam Weiner [facility] Adult UNK Encounter [place] [facility] Medicine - Ambulatory Odin Rinaldi [facility] UNK Encounter Medicine - Ambulatory Zee Michael [facility] Social UNK Encounter Services - Ambulatory Zee Michael [facility] Social UNK Encounter Services - Ambulatory Husam Weiner [facility] Adult UNK Encounter [place] Medicine - Ambulatory Husam Weiner [facility] Adult UNK Encounter [place] Nkechi Medicine Mariscal - Ambulatory Husam Wiener [facility] Adult UNK Encounter [place] [facility] Medicine - Ambulatory Husam Weiner [facility] Adult UNK Encounter [place] [facility] Medicine - Ambulatory Husam Weiner [facility] Adult UNK Encounter [place] [facility] Medicine - Ambulatory Husam Weiner [facility] Adult UNK Encounter [place] [facility] Medicine - Ambulatory Husam Weiner [facility] Adult UNK Encounter [place] [facility] Medicine - Ambulatory Zee Michael [facility] Social UNK Encounter [facility] Services - Ambulatory Zee Michael [facility] Social UNK Encounter Services - Ambulatory Husam Weiner [facility] Adult UNK Encounter [place] [facility] Medicine - Ambulatory Husam Weiner [facility] Adult UNK Encounter [place] [facility] Medicine - Ambulatory Husam Weiner [facility] Adult [facility] - [facility] Sammie Bridger [place] UNK Encounter - Ambulatory Sammie Bridger [place] UNK Encounter [facility] - Ambulatory Deidra Mustafa-Saman [facility] Adult UNK Encounter Medicine - Ambulatory Elodia Rubina [facility] Adult UNK Encounter [facility] Medicine - Ambulatory Elodia Rubina [facility] Adult UNK Encounter [facility] Medicine - Ambulatory Elodia Rubina [facility] Adult UNK Encounter [facility] Medicine - Ambulatory Elodia Rubina [facility] Adult UNK Encounter Atif [place] Medicine - Ambulatory Husam Weiner [facility] No Information Available ALLERGIES Allergy Name Onset Date Reaction Criticality Status CODEINE High Criticality active PENICILLIN High Criticality active REASON FOR REFERRAL No Information Available RESULTS Date Observation Value Provider Reference Interpretation Location Range hepatitis C <0.1 [facility] 0.0-0.9 /07 antibody, serum " rapid plasma reagin Non [facility] Non Reactive antibody, serum Reactive " HIV-1RNA, serum, by 380 /mL [facility] PCR, quantitative " LDL cholesterol, 82 mg/dL [facility] 0-99 serum " very low density 32 mg/dL [facility] 5-40 lipoproteins " HDL cholesterol, 42 mg/dL [facility] >39 serum " triglyceride, 161 mg/dL [facility] 0-149 High serum, fasting " cholesterol, serum 156 mg/dL [facility] 100-199 " alanine 10 1/L [facility] 0-32 aminotransferase (SGPT), serum " aspartate 9 1/L [facility] 0-40 aminotransferase (SGOT), serum " alkaline 99 1/L [facility] 39-117 phosphatase, serum " bilirubin, serum, 0.3 mg/dL [facility] 0.0-1.2 total " albumin/globulin 1.6 [facility] 1.2-2.2 ratio, serum " globulin, serum 2.4 [facility] 1.5-4.5 " albumin, serum 3.9 g/dL [facility] 3.5-5.5 " protein, total, 6.3 g/dL [facility] 6.0-8.5 serum " calcium, serum 9.2 mg/dL [facility] 8.7-10.2 " carbon dioxide, 27 mmol/L [facility] 20-29 venous blood " chloride, serum 102 mmol/L [facility] 96-106 " potassium, serum 4.5 mmol/L [facility] 3.5-5.2 " sodium, serum 140 mmol/L [facility] 134-144 " urea 25 [facility] 9-23 High nitrogen/creatinine ratio, serum " eGFR if 118 [facility] >59 Armenian mL/min/((17 3/100).m2) " Estimated 102 [facility] >59 Glomerular mL/min/((17 Filtration Rate 3/100).m2) (calc) " creatinine, serum 0.56 mg/dL [facility] 0.57-1.00 Low " urea nitrogen, 14 mg/dL [facility] 6-24 blood " blood glucose, 121 mg/dL [facility] 65-99 High random " immature 0 % [facility] Not Estab. granulocytes, percentage of total cells, blood " basophil count, 0.0 [facility] 0.0-0.2 absolute x10E3/uL " Eosinophil Absolute 0.2 [facility] 0.0-0.4 Count X10E3/UL " monocyte count, 0.4 [facility] 0.1-0.9 blood, automated X10E3/UL " lymphocyte count, 1.7 [facility] 0.7-3.1 blood, automated X10E3/UL " Absolute 3.5 [facility] 1.4-7.0 Neutrophils X10E3/UL " basophils as 1 % [facility] Not Estab. percent of blood leukocytes " eosinophils as 3 % [facility] Not Estab. percent of blood leukocytes " monocytes as 7 % [facility] Not Estab. percent of blood leukocytes " lymphocytes as 29 % [facility] Not Estab. percent of blood leukocytes " neutrophils as 60 % [facility] Not Estab. percent of blood leukocytes " platelet count 234 [facility] 150-450 X10E3/UL " red blood cell 13.0 % [facility] 12.3-15.4 distribution width " mean corpuscular 33.8 G/DL [facility] 31.5-35.7 hemoglobin concentration, RBC " mean corpuscular 34.9 pg [facility] 26.6-33.0 High hemoglobin, RBC " mean corpuscular 103 fL [facility] 79-97 High volume, RBC " hematocrit, blood 41.4 % [facility] 34.0-46.6 " hemoglobin, blood 14.0 g/dL [facility] 11.1-15.9 " erythrocyte (RBC) 4.01 [facility] 3.77-5.28 count X10E6/UL " leukocyte count, 5.8 [facility] 3.4-10.8 blood X10E3/UL " CD4/CD8 ratio 0.91 [facility] 0.92-3.72 Low " T-suppressor cells 26.7 % [facility] 12.0-35.5 (CD8) as percent of blood lymphocytes " absolute CD8 454 [facility] 109-897 " T-helper cells 24.4 % [facility] 30.8-58.5 Low (CD4) as percent of blood lymphocytes " T-helper cells 415 /UL [facility] 359-1519 (CD4) count rapid plasma reagin Non [facility] Non Reactive /11 antibody, serum Reactive " HIV-1RNA, serum, by <20 LinkLog PCR, quantitative copies/mL " alanine 12 1/L [facility] 0-32 aminotransferase (SGPT), serum " aspartate 9 1/L [facility] 0-40 aminotransferase (SGOT), serum " alkaline 102 1/L [facility] 39-117 phosphatase, serum " bilirubin, serum, 0.4 mg/dL [facility] 0.0-1.2 total " albumin/globulin 1.4 [facility] 1.2-2.2 ratio, serum " globulin, serum 2.8 [facility] 1.5-4.5 " albumin, serum 4.0 g/dL [facility] 3.5-5.5 " protein, total, 6.8 g/dL [facility] 6.0-8.5 serum " calcium, serum 9.3 mg/dL [facility] 8.7-10.2 " carbon dioxide, 29 mmol/L [facility] 20-29 venous blood " chloride, serum 99 mmol/L [facility] 96-106 " potassium, serum 4.4 mmol/L [facility] 3.5-5.2 " sodium, serum 140 mmol/L [facility] 134-144 " urea 20 [facility] 9-23 nitrogen/creatinine ratio, serum " eGFR if 115 [facility] >59 [place] mL/min/((17 3/100).m2) " Estimated 100 [facility] >59 Glomerular mL/min/((17 Filtration Rate 3/100).m2) (calc) " creatinine, serum 0.61 mg/dL [facility] 0.57-1.00 " urea nitrogen, 12 mg/dL [facility] 6-24 blood " blood glucose, 131 mg/dL [facility] 65-99 High random " immature 0 % [facility] Not Estab. granulocytes, percentage of total cells, blood " basophil count, 0.0 [facility] 0.0-0.2 absolute x10E3/uL " Eosinophil Absolute 0.1 [facility] 0.0-0.4 Count X10E3/UL " monocyte count, 0.3 [facility] 0.1-0.9 blood, automated X10E3/UL " lymphocyte count, 1.4 [facility] 0.7-3.1 blood, automated X10E3/UL " Absolute 5.3 [facility] 1.4-7.0 Neutrophils X10E3/UL " basophils as 0 % [facility] Not Estab. percent of blood leukocytes " eosinophils as 1 % [facility] Not Estab. percent of blood leukocytes " monocytes as 5 % [facility] Not Estab. percent of blood leukocytes " lymphocytes as 19 % [facility] Not Estab. percent of blood leukocytes " neutrophils as 75 % [facility] Not Estab. percent of blood leukocytes " platelet count 227 [facility] 150-450 X10E3/UL " red blood cell 13.4 % [facility] 12.3-15.4 distribution width " mean corpuscular 34.2 G/DL [facility] 31.5-35.7 hemoglobin concentration, RBC " mean corpuscular 34.8 pg [facility] 26.6-33.0 High hemoglobin, RBC " mean corpuscular 102 fL [facility] 79-97 High volume, RBC " hematocrit, blood 42.7 % [facility] 34.0-46.6 " hemoglobin, blood 14.6 g/dL [facility] 11.1-15.9 " erythrocyte (RBC) 4.20 [facility] 3.77-5.28 count X10E6/UL " leukocyte count, 7.1 [facility] 3.4-10.8 blood X10E3/UL " CD4/CD8 ratio 1.00 [facility] 0.92-3.72 " T-suppressor cells 27.5 % [facility] 12.0-35.5 (CD8) as percent of blood lymphocytes " absolute CD8 385 [facility] 109-897 " T-helper cells 27.5 % [facility] 30.8-58.5 Low (CD4) as percent of blood lymphocytes " T-helper cells 385 /UL [facility] [id number] (CD4) count LDL cholesterol, 58 mg/dL [facility] 0-99 /11 serum " very low density 35 mg/dL [facility] 5-40 lipoproteins " HDL cholesterol, 34 mg/dL [facility] >39 Low serum " triglyceride, 174 mg/dL [facility] 0-149 High serum, fasting " cholesterol, serum 127 mg/dL [facility] [phone]/03 rapid plasma reagin Non [facility] Non Reactive /14 antibody, serum Reactive " HIV-1RNA, serum, by <20 [facility] PCR, quantitative copies/mL " alanine 12 1/L [facility] 0-32 aminotransferase (SGPT), serum " aspartate 12 1/L [facility] 0-40 aminotransferase (SGOT), serum " alkaline 109 1/L [facility] 39-117 phosphatase, serum " bilirubin, serum, 0.2 mg/dL [facility] 0.0-1.2 total " albumin/globulin 1.5 [facility] 1.2-2.2 ratio, serum " globulin, serum 2.6 [facility] 1.5-4.5 " albumin, serum 4.0 g/dL [facility] 3.5-5.5 " protein, total, 6.6 g/dL [facility] 6.0-8.5 serum " calcium, serum 9.3 mg/dL [facility] 8.7-10.2 " carbon dioxide, 26 mmol/L [facility] 20-29 venous blood " chloride, serum 102 mmol/L [facility] 96-106 " potassium, serum 4.8 mmol/L [facility] 3.5-5.2 " sodium, serum 143 mmol/L [facility] 134-144 " urea 11 [facility] 9-23 nitrogen/creatinine ratio, serum " eGFR if 113 [facility] >59 [place] mL/min/((17 3/100).m2) " Estimated 98 [facility] >59 Glomerular mL/min/((17 Filtration Rate 3/100).m2) (calc) " creatinine, serum 0.64 mg/dL [facility] 0.57-1.00 " urea nitrogen, 7 mg/dL [facility] 6-24 blood " blood glucose, 157 mg/dL [facility] 65-99 High random " immature 0 % [facility] Not Estab. granulocytes, percentage of total cells, blood " basophil count, 0.0 [facility] 0.0-0.2 absolute x10E3/uL " Eosinophil Absolute 0.2 [facility] 0.0-0.4 Count X10E3/UL " monocyte count, 0.6 [facility] 0.1-0.9 blood, automated X10E3/UL " lymphocyte count, 1.2 [facility] 0.7-3.1 blood, automated X10E3/UL " Absolute 6.1 [facility] 1.4-7.0 Neutrophils X10E3/UL " basophils as 0 % [facility] Not Estab. percent of blood leukocytes " eosinophils as 2 % [facility] Not Estab. percent of blood leukocytes " monocytes as 8 % [facility] Not Estab. percent of blood leukocytes " lymphocytes as 14 % [facility] Not Estab. percent of blood leukocytes " neutrophils as 76 % [facility] Not Estab. percent of blood leukocytes " platelet count 213 [facility] 150-379 X10E3/UL " red blood cell 13.6 % [facility] 12.3-15.4 distribution width " mean corpuscular 33.7 G/DL [facility] 31.5-35.7 hemoglobin concentration, RBC " mean corpuscular 33.9 pg [facility] 26.6-33.0 High hemoglobin, RBC " mean corpuscular 101 fL [facility] 79-97 High volume, RBC " hematocrit, blood 43.3 % [facility] 34.0-46.6 " hemoglobin, blood 14.6 g/dL [facility] 11.1-15.9 " erythrocyte (RBC) 4.31 [facility] 3.77-5.28 count X10E6/UL " leukocyte count, 8.0 [facility] 3.4-10.8 blood X10E3/UL " CD4/CD8 ratio 1.08 [facility] 0.92-3.72 " T-suppressor cells 28.6 % [facility] 12.0-35.5 (CD8) as percent of blood lymphocytes " absolute CD8 343 [facility] 109-897 " T-helper cells 30.9 % [facility] 30.8-58.5 (CD4) as percent of blood lymphocytes " T-helper cells 371 /UL [facility] 359-1519 (CD4) count LDL cholesterol, 45 mg/dL [facility] 0-99 /14 serum " very low density 38 mg/dL [facility] 5-40 lipoproteins " HDL cholesterol, 36 mg/dL [facility] >39 Low serum " triglyceride, 188 mg/dL [facility] 0-149 High serum, fasting " cholesterol, serum 119 mg/dL [facility] [phone]/10 [facility] TB [facility] blood test for tuberculosis screening Quantiferon Gold TB negative [facility] blood test for tuberculosis screening hepatitis C 0.3 [facility] 0.0-0.9 30 antibody, serum " rapid plasma reagin Non [facility] Non Reactive antibody, serum Reactive " HIV-1RNA, serum, by <20 [facility] PCR, quantitative copies/mL " LDL cholesterol, 69 mg/dL [facility] 0-99 serum " very low density 29 mg/dL [facility] 5-40 lipoproteins " HDL cholesterol, 41 mg/dL [facility] >39 serum " triglyceride, 143 mg/dL [facility] 0-149 serum, fasting " cholesterol, serum 139 mg/dL [facility] 100-199 " alanine 11 1/L [facility] 0-32 aminotransferase (SGPT), serum " aspartate 12 1/L [facility] 0-40 aminotransferase (SGOT), serum " alkaline 141 1/L [facility] 39-117 High phosphatase, serum " bilirubin, serum, 0.3 mg/dL [facility] 0.0-1.2 total " albumin/globulin 1.7 [facility] 1.2-2.2 ratio, serum " globulin, serum 2.5 [facility] 1.5-4.5 " albumin, serum 4.2 g/dL [facility] 3.5-5.5 " protein, total, 6.7 g/dL [facility] 6.0-8.5 serum " calcium, serum 9.4 mg/dL [facility] 8.7-10.2 " carbon dioxide, 26 mmol/L [facility] 20-29 venous blood " chloride, serum 98 mmol/L [facility] 96-106 " potassium, serum 4.4 mmol/L [facility] 3.5-5.2 " sodium, serum 140 mmol/L [facility] 134-144 " urea 12 [facility] 9-23 nitrogen/creatinine ratio, serum " eGFR if 98 [facility] >59 Armenian mL/min/((17 3/100).m2) " Estimated 85 [facility] >59 Glomerular mL/min/((17 Filtration Rate 3/100).m2) (calc) " creatinine, serum 0.77 mg/dL [facility] 0.57-1.00 " urea nitrogen, 9 mg/dL [facility] 6-24 blood " blood glucose, 129 mg/dL [facility] 65-99 High random " immature 0 % [facility] Not Estab. granulocytes, percentage of total cells, blood " basophil count, 0.0 [facility] 0.0-0.2 absolute x10E3/uL " Eosinophil Absolute 0.2 [facility] 0.0-0.4 Count X10E3/UL " monocyte count, 0.6 [facility] 0.1-0.9 blood, automated X10E3/UL " lymphocyte count, 1.7 [facility] 0.7-3.1 blood, automated X10E3/UL " Absolute 4.3 [facility] 1.4-7.0 Neutrophils X10E3/UL " basophils as 0 % [facility] Not Estab. percent of blood leukocytes " eosinophils as 3 % [facility] Not Estab. percent of blood leukocytes " monocytes as 8 % [facility] Not Estab. percent of blood leukocytes " lymphocytes as 25 % [facility] Not Estab. percent of blood leukocytes " neutrophils as 64 % [facility] Not Estab. percent of blood leukocytes " platelet count 173 [facility] 150-379 X10E3/UL " red blood cell 12.4 % [facility] 12.3-15.4 distribution width " mean corpuscular 34.0 G/DL [facility] 31.5-35.7 hemoglobin concentration, RBC " mean corpuscular 34.7 pg [facility] 26.6-33.0 High hemoglobin, RBC " mean corpuscular 102 fL [facility] 79-97 High volume, RBC " hematocrit, blood 40.9 % [facility] 34.0-46.6 " hemoglobin, blood 13.9 g/dL [facility] 11.1-15.9 " erythrocyte (RBC) 4.01 [facility] 3.77-5.28 count X10E6/UL " leukocyte count, 6.8 [facility] 3.4-10.8 blood X10E3/UL " CD4/CD8 ratio 0.98 [facility] 0.92-3.72 " T-suppressor cells 26.4 % [facility] 12.0-35.5 (CD8) as percent of blood lymphocytes " absolute CD8 449 [facility] 109-897 " T-helper cells 25.9 % [facility] 30.8-58.5 Low (CD4) as percent of blood lymphocytes " T-helper cells 440 /UL [facility] 359-1519 (CD4) count rapid plasma reagin Non [facility] Non Reactive /13 antibody, serum Reactive " HIV-1RNA, serum, by <20 [facility] PCR, quantitative copies/mL " LDL cholesterol, 63 mg/dL [facility] 0-99 serum " very low density 53 mg/dL [facility] 5-40 High lipoproteins " HDL cholesterol, 38 mg/dL [facility] >39 Low serum " triglyceride, 265 mg/dL [facility] 0-149 High serum, fasting " cholesterol, serum 154 mg/dL [facility] 100-199 " alanine 6 1/L [facility] 0-32 aminotransferase (SGPT), serum " aspartate 8 1/L [facility] 0-40 aminotransferase (SGOT), serum " alkaline 93 1/L [facility] 39-117 phosphatase, serum " bilirubin, serum, 0.2 mg/dL [facility] 0.0-1.2 total " albumin/globulin 1.3 [facility] 1.2-2.2 ratio, serum " globulin, serum 3.1 [facility] 1.5-4.5 " albumin, serum 4.0 g/dL [facility] 3.5-5.5 " protein, total, 7.1 g/dL [facility] 6.0-8.5 serum " calcium, serum 9.6 mg/dL [facility] 8.7-10.2 " carbon dioxide, 28 mmol/L [facility] 18-29 venous blood " chloride, serum 98 mmol/L [facility] 96-106 " potassium, serum 4.5 mmol/L [facility] 3.5-5.2 " sodium, serum 140 mmol/L [facility] 134-144 " urea 12 [facility] 9-23 nitrogen/creatinine ratio, serum " eGFR if 111 [facility] >59 [place] mL/min/((17 3/100).m2) " Estimated 96 [facility] >59 Glomer[place] mL/min/((17 Filtration Rate 3/100).m2) (calc) " creatinine, serum 0.69 mg/dL [facility] 0.57-1.00 " urea nitrogen, 8 mg/dL [facility] 6-24 blood " blood glucose, 154 mg/dL [facility] 65-99 High random " immature 0 % [facility] Not Estab. granulocytes, percentage of total cells, blood " basophil count, 0.0 [facility] 0.0-0.2 absolute x10E3/uL " Eosinophil Absolute 0.1 [facility] 0.0-0.4 Count X10E3/UL " monocyte count, 0.4 [facility] 0.1-0.9 blood, automated X10E3/UL " lymphocyte count, 1.4 [facility] 0.7-3.1 blood, automated X10E3/UL " Absolute 3.3 [facility] 1.4-7.0 Neutrophils X10E3/UL " basophils as 0 % [facility] Not Estab. percent of blood leukocytes " eosinophils as 2 % [facility] Not Estab. percent of blood leukocytes " monocytes as 8 % [facility] Not Estab. percent of blood leukocytes " lymphocytes as 26 % [facility] Not Estab. percent of blood leukocytes " neutrophils as 64 % [facility] Not Estab. percent of blood leukocytes " platelet count 194 [facility] 150-379 X10E3/UL " red blood cell 14.1 % [facility] 12.3-15.4 distribution width " mean corpuscular 33.9 G/DL [facility] 31.5-35.7 hemoglobin concentration, RBC " mean corpuscular 34.2 pg [facility] 26.6-33.0 High hemoglobin, RBC " mean corpuscular 101 fL [facility] 79-97 High volume, RBC " hematocrit, blood 41.3 % [facility] 34.0-46.6 " hemoglobin, blood 14.0 g/dL [facility] 11.1-15.9 " erythrocyte (RBC) 4.09 [facility] 3.77-5.28 count X10E6/UL " leukocyte count, 5.1 [facility] 3.4-10.8 blood X10E3/UL " CD4/CD8 ratio 0.85 [facility] 0.92-3.72 Low " T-suppressor cells 29.5 % [facility] 12.0-35.5 (CD8) as percent of blood lymphocytes " absolute CD8 413 [facility] 109-897 " T-helper cells 25.0 % [facility] 30.8-58.5 Low (CD4) as percent of blood lymphocytes " T-helper cells 350 /UL [facility] 359-1519 Low (CD4) count rapid plasma reagin Non [facility] Non Reactive /16 antibody, serum Reactive " HIV-1RNA, serum, by 50 /mL [facility] PCR, quantitative " LDL cholesterol, 63 mg/dL [facility] 0-99 serum " very low density 32 mg/dL [facility] 5-40 lipoproteins " HDL cholesterol, 47 mg/dL [facility] >39 serum " triglyceride, 162 mg/dL [facility] 0-149 High serum, fasting " cholesterol, serum 142 mg/dL [facility] 100-199 " alanine 9 1/L [facility] 0-32 aminotransferase (SGPT), serum " aspartate 9 1/L [facility] 0-40 aminotransferase (SGOT), serum " alkaline 100 1/L [facility] 39-117 phosphatase, serum " bilirubin, serum, 0.3 mg/dL [facility] 0.0-1.2 total " albumin/globulin 1.4 [facility] 1.2-2.2 ratio, serum " globulin, serum 2.9 [facility] 1.5-4.5 " albumin, serum 4.2 g/dL [facility] 3.5-5.5 " protein, total, 7.1 g/dL [facility] 6.0-8.5 serum " calcium, serum 9.6 mg/dL [facility] 8.7-10.2 " carbon dioxide, 27 mmol/L [facility] 18-29 venous blood " chloride, serum 96 mmol/L [facility] 96-106 " potassium, serum 5.1 mmol/L [facility] 3.5-5.2 " sodium, serum 138 mmol/L [facility] 134-144 " urea 14 [facility] 9-23 nitrogen/creatinine ratio, serum " eGFR if 86 [facility] >59 [place] mL/min/((17 3/100).m2) " Estimated 74 [facility] >59 [place]omerular mL/min/((17 Filtration Rate 3/100).m2) (calc) " creatinine, serum 0.87 mg/dL [facility] 0.57-1.00 " urea nitrogen, 12 mg/dL [facility] 6-24 blood " blood glucose, 119 mg/dL [facility] 65-99 High random " immature 0 % [facility] Not Estab. granulocytes, percentage of total cells, blood " basophil count, 0.0 [facility] 0.0-0.2 absolute x10E3/uL " Eosinophil Absolute 0.1 [facility] 0.0-0.4 Count X10E3/UL " monocyte count, 0.5 [facility] 0.1-0.9 blood, automated X10E3/UL " lymphocyte count, 1.7 [facility] 0.7-3.1 blood, automated X10E3/UL " Absolute 5.4 [facility] 1.4-7.0 Neutrophils X10E3/UL " basophils as 0 % [facility] Not Estab. percent of blood leukocytes " eosinophils as 1 % [facility] Not Estab. percent of blood leukocytes " monocytes as 7 % [facility] Not Estab. percent of blood leukocytes " lymphocytes as 22 % [facility] Not Estab. percent of blood leukocytes " neutrophils as 70 % [facility] Not Estab. percent of blood leukocytes " platelet count 193 [facility] 150-379 X10E3/UL " red blood cell 13.7 % [facility] 12.3-15.4 distribution width " mean corpuscular 35.0 G/DL [facility] 31.5-35.7 hemoglobin concentration, RBC " mean corpuscular 35.6 pg [facility] 26.6-33.0 High hemoglobin, RBC " mean corpuscular 102 fL [facility] 79-97 High volume, RBC " hematocrit, blood 43.7 % [facility] 34.0-46.6 " hemoglobin, blood 15.3 g/dL [facility] 11.1-15.9 " erythrocyte (RBC) 4.30 [facility] 3.77-5.28 count X10E6/UL " leukocyte count, 7.7 [facility] 3.4-10.8 blood X10E3/UL " CD4/CD8 ratio 0.70 [facility] 0.92-3.72 Low " T-suppressor cells 27.8 % [facility] 12.0-35.5 (CD8) as percent of blood lymphocytes " absolute CD8 473 [facility] 109-897 " T-helper cells 19.4 % [facility] 30.8-58.5 Low (CD4) as percent of blood lymphocytes " T-helper cells 330 /UL [facility] [id number] Low (CD4) count rapid plasma reagin Non [facility] Non Reactive /28 antibody, serum Reactive " [place]-1[place] [address] /mL [facility] PCR, quantitative " LDL cholesterol, 38 mg/dL [facility] 0-99 serum " very low density 24 mg/dL [facility] 5-40 lipoproteins " HDL cholesterol, 36 mg/dL [facility] >39 Low serum " triglyceride, 119 mg/dL [facility] 0-149 serum, fasting " cholesterol, serum 98 mg/dL [facility] 100-199 Low " alanine 19 1/L [facility] 0-32 aminotransferase (SGPT), serum " aspartate 18 1/L [facility] 0-40 aminotransferase (SGOT), serum " alkaline 110 1/L [facility] 39-117 phosphatase, serum " bilirubin, serum, 0.3 mg/dL [facility] 0.0-1.2 total " albumin/globulin 1.4 [facility] 1.2-2.2 ratio, serum " globulin, serum 2.7 [facility] 1.5-4.5 " albumin, serum 3.8 g/dL [facility] 3.5-5.5 " protein, total, 6.5 g/dL [facility] 6.0-8.5 serum " calcium, serum 8.9 mg/dL [facility] 8.7-10.2 " carbon dioxide, 24 mmol/L [facility] 18-29 venous blood " chloride, serum 100 mmol/L [facility] 96-106 " potassium, serum 4.1 mmol/L [facility] 3.5-5.2 " sodium, serum 142 mmol/L [facility] 134-144 " urea 13 [facility] 9-23 nitrogen/creatinine ratio, serum " eGFR if 102 [facility] >59 [place] mL/min/((17 3/100).m2) " Estimated 89 [facility] >59 [place]omer[place] mL/min/((17 Filtration Rate 3/100).m2) (calc) " creatinine, serum 0.75 mg/dL [facility] 0.57-1.00 " urea nitrogen, 10 mg/dL [facility] 6-24 blood " blood glucose, 123 mg/dL [facility] 65-99 High random " immature 0 % [facility] granulocytes, percentage of total cells, blood " basophil count, 0.0 [facility] 0.0-0.2 absolute x10E3/uL " Eosinophil Absolute 0.1 [facility] 0.0-0.4 Count X10E3/UL " monocyte count, 0.6 [facility] 0.1-0.9 blood, automated X10E3/UL " lymphocyte count, 0.9 [facility] 0.7-3.1 blood, automated X10E3/UL " Absolute 3.6 [facility] 1.4-7.0 Neutrophils X10E3/UL " basophils as 0 % [facility] percent of blood leukocytes " eosinophils as 2 % [facility] percent of blood leukocytes " monocytes as 11 % [facility] percent of blood leukocytes " lymphocytes as 17 % [facility] percent of blood leukocytes " neutrophils as 70 % [facility] percent of blood leukocytes " platelet count 159 [facility] 150-379 X10E3/UL " red blood cell 12.4 % [facility] 12.3-15.4 distribution width " mean corpuscular 35.4 G/DL [facility] 31.5-35.7 hemoglobin concentration, RBC " mean corpuscular 35.0 pg [facility] 26.6-33.0 High hemoglobin, RBC " mean corpuscular 99 fL [facility] 79-97 High volume, RBC " hematocrit, blood 40.4 % [facility] 34.0-46.6 " hemoglobin, blood 14.3 g/dL [facility] 11.1-15.9 " erythrocyte (RBC) 4.09 [facility] 3.77-5.28 count X10E6/UL " leukocyte count, 5.1 [facility] 3.4-10.8 blood X10E3/UL " CD4/CD8 ratio 0.51 [facility] 0.92-3.72 Low " T-suppressor cells 30.7 % [facility] 12.0-35.5 (CD8) as percent of blood lymphocytes " absolute CD8 276 [facility] 109-897 " T-helper cells 15.7 % [facility] 30.8-58.5 Low (CD4) as percent of blood lymphocytes " T-helper cells 141 /UL [facility] [id number] Low (CD4) count rapid plasma reagin Non [facility] Non Reactive / antibody, serum Reactive " HIV-1RNA, serum, by <20 [facility] PCR, quantitative copies/mL " alanine 12 1/L [facility] 0-32 aminotransferase (SGPT), serum " aspartate 12 1/L [facility] 0-40 aminotransferase (SGOT), serum " alkaline 146 1/L [facility] 39-117 High phosphatase, serum " bilirubin, serum, 0.3 mg/dL [facility] 0.0-1.2 total " albumin/globulin 1.6 [facility] 1.2-2.2 ratio, serum " globulin, serum 2.5 [facility] 1.5-4.5 " albumin, serum 3.9 g/dL [facility] 3.5-5.5 " protein, total, 6.4 g/dL [facility] 6.0-8.5 serum " calcium, serum 9.0 mg/dL [facility] 8.7-10.2 " carbon dioxide, 24 mmol/L [facility] 18-29 venous blood " chloride, serum 95 mmol/L [facility] 96-106 Low " potassium, serum 4.5 mmol/L [facility] 3.5-5.2 " sodium, serum 135 mmol/L [facility] 134-144 " urea 10 [facility] 9-23 nitrogen/creatinine ratio, serum " eGFR if 106 [facility] >59 [place] mL/min/((17 3/100).m2) " Estimated 92 [facility] >59 [place] mL/min/((17 Filtration Rate 3/100).m2) (calc) " creatinine, serum 0.73 mg/dL [facility] 0.57-1.00 " urea nitrogen, 7 mg/dL [facility] 6-24 blood " blood glucose, 130 mg/dL [facility] 65-99 High random " immature 0 % [facility] granulocytes, percentage of total cells, blood " basophil count, 0.0 [facility] 0.0-0.2 absolute x10E3/uL " Eosinophil Absolute 0.1 [facility] 0.0-0.4 Count X10E3/UL " monocyte count, 0.4 [facility] 0.1-0.9 blood, automated X10E3/UL " lymphocyte count, 1.1 [facility] 0.7-3.1 blood, automated X10E3/UL " Absolute 3.7 [facility] 1.4-7.0 Neutrophils X10E3/UL " basophils as 0 % [facility] percent of blood leukocytes " eosinophils as 3 % [facility] percent of blood leukocytes " monocytes as 7 % [facility] percent of blood leukocytes " lymphocytes as 21 % [facility] percent of blood leukocytes " neutrophils as 69 % [facility] percent of blood leukocytes " platelet count 233 [facility] 150-379 X10E3/UL " red blood cell 13.1 % [facility] 12.3-15.4 distribution width " mean corpuscular 34.4 G/DL [facility] 31.5-35.7 hemoglobin concentration, RBC " mean corpuscular 35.0 pg [facility] 26.6-33.0 High hemoglobin, RBC " mean corpuscular 102 fL [facility] 79-97 High volume, RBC " hematocrit, blood 42.2 % [facility] 34.0-46.6 " hemoglobin, blood 14.5 g/dL [facility] 11.1-15.9 " erythrocyte (RBC) 4.14 [facility] 3.77-5.28 count X10E6/UL " leukocyte count, 5.3 [facility] 3.4-10.8 blood X10E3/UL " CD4/CD8 ratio 0.68 [facility] 0.92-3.72 Low " T-suppressor cells 27.9 % [facility] 12.0-35.5 (CD8) as percent of blood lymphocytes " absolute CD8 307 [facility] 109-897 " T-helper cells 19.0 % [facility] 30.8-58.5 Low (CD4) as percent of blood lymphocytes " T-helper cells 209 /UL [facility] [id number] Low (CD4) count Quantiferon Gold TB Negative [facility] Negative /22 blood test for tuberculosis screening " rapid plasma reagin Non [facility] Non Reactive antibody, serum Reactive " HIV-1RNA, serum, by <20 [facility] PCR, quantitative copies/mL " LDL cholesterol, 53 mg/dL [facility] 0-99 serum " very low density 26 mg/dL [facility] 5-40 lipoproteins " HDL cholesterol, 43 mg/dL [facility] >39 serum " triglyceride, 128 mg/dL [facility] 0-149 serum, fasting " cholesterol, serum 122 mg/dL [facility] 100-199 " alanine 18 1/L [facility] 0-32 aminotransferase (SGPT), serum " aspartate 13 1/L [facility] 0-40 aminotransferase (SGOT), serum " alkaline 156 1/L [facility] 39-117 High phosphatase, serum " bilirubin, serum, 0.4 mg/dL [facility] 0.0-1.2 total " albumin/globulin 1.8 [facility] 1.1-2.5 ratio, serum " globulin, serum 2.4 [facility] 1.5-4.5 " albumin, serum 4.3 g/dL [facility] 3.5-5.5 " protein, total, 6.7 g/dL [facility] 6.0-8.5 serum " calcium, serum 9.4 mg/dL [facility] 8.7-10.2 " carbon dioxide, 28 mmol/L [facility] 18-29 venous blood " chloride, serum 93 mmol/L [facility] 97-106 Low " potassium, serum 4.5 mmol/L [facility] 3.5-5.2 " sodium, serum 136 mmol/L [facility] 136-144 " urea 10 [facility] 9-23 nitrogen/creatinine ratio, serum " eGFR if 100 [facility] >59 [place] mL/min/((17 3/100).m2) " Estimated 87 [facility] >59 [place]omer[place] mL/min/((17 Filtration Rate 3/100).m2) (calc) " creatinine, serum 0.77 mg/dL [facility] 0.57-1.00 " urea nitrogen, 8 mg/dL [facility] 6-24 blood " blood glucose, 152 mg/dL [facility] 65-99 High random " immature 0 % [facility] granulocytes, percentage of total cells, blood " basophil count, 0.0 [facility] 0.0-0.2 absolute x10E3/uL " Eosinophil Absolute 0.2 [facility] 0.0-0.4 Count X10E3/UL " monocyte count, 0.5 [facility] 0.1-0.9 blood, automated X10E3/UL " lymphocyte count, 1.7 [facility] 0.7-3.1 blood, automated X10E3/UL " Absolute 5.2 [facility] 1.4-7.0 Neutrophils X10E3/UL " basophils as 0 % [facility] percent of blood leukocytes " eosinophils as 3 % [facility] percent of blood leukocytes " monocytes as 6 % [facility] percent of blood leukocytes " lymphocytes as 22 % [facility] percent of blood leukocytes " neutrophils as 69 % [facility] percent of blood leukocytes " platelet count 257 [facility] 150-379 X10E3/UL " red blood cell 12.9 % [facility] 12.3-15.4 distribution width " mean corpuscular 34.3 G/DL [facility] 31.5-35.7 hemoglobin concentration, RBC " mean corpuscular 34.5 pg [facility] 26.6-33.0 High hemoglobin, RBC " mean corpuscular 101 fL [facility] 79-97 High volume, RBC " hematocrit, blood 44.6 % [facility] 34.0-46.6 " hemoglobin, blood 15.3 g/dL [facility] 11.1-15.9 " erythrocyte (RBC) 4.43 [facility] 3.77-5.28 count X10E6/UL " leukocyte count, 7.7 [facility] 3.4-10.8 blood X10E3/UL " CD4/CD8 ratio 0.84 [facility] 0.92-3.72 Low " T-suppressor cells 26.3 % [facility] 12.0-35.5 (CD8) as percent of blood lymphocytes " absolute CD8 447 [facility] 109-897 " T-helper cells 22.0 % [facility] 30.8-58.5 Low (CD4) as percent of blood lymphocytes " T-helper cells 374 /UL [facility] 359-1519 (CD4) count Neisseria Negative [facility] Negative / gonorrhoeae DNA probe " chlamydia DNA probe Negative [facility] Negative hepatitis B surface Negative [facility] Negative / antigen " hepatitis C 0.2 [facility] 0.0-0.9 antibody, serum " vitamin D 27.6 ng/mL [facility] 30.0-100.0 Low 25-hydroxy, serum " rapid plasma reagin Non [facility] Non Reactive antibody, serum Reactive " HIV-1RNA, serum, by 30 /mL [facility] PCR, quantitative " LDL cholesterol, 82 mg/dL [facility] 0-99 serum " very low density 40 mg/dL [facility] 5-40 lipoproteins " HDL cholesterol, 42 mg/dL [facility] >39 serum " triglyceride, 199 mg/dL [facility] 0-149 High serum, fasting " cholesterol, serum 164 mg/dL [facility] 100-199 " alanine 12 1/L [facility] 0-32 aminotransferase (SGPT), serum " aspartate 14 1/L [facility] 0-40 aminotransferase (SGOT), serum " alkaline 169 1/L [facility] 39-117 High phosphatase, serum " bilirubin, serum, 0.4 mg/dL [facility] 0.0-1.2 total " albumin/globulin 1.8 [facility] 1.1-2.5 ratio, serum " globulin, serum 2.4 [facility] 1.5-4.5 " albumin, serum 4.3 g/dL [facility] 3.5-5.5 " protein, total, 6.7 g/dL [facility] 6.0-8.5 serum " calcium, serum 9.4 mg/dL [facility] 8.7-10.2 " carbon dioxide, 24 mmol/L [facility] 18-29 venous blood " chloride, serum 96 mmol/L [facility] 97-108 Low " potassium, serum 4.4 mmol/L [facility] 3.5-5.2 " sodium, serum 137 mmol/L [facility] 134-144 " urea 13 [facility] 9-23 nitrogen/creatinine ratio, serum " eGFR if 117 [facility] >59 [place] mL/min/((17 3/100).m2) " Estimated 102 [facility] >59 Glomer[place] mL/min/((17 Filtration Rate 3/100).m2) (calc) " creatinine, serum 0.61 mg/dL [facility] 0.57-1.00 " urea nitrogen, 8 mg/dL [facility] 6-24 blood " blood glucose, 106 mg/dL [facility] 65-99 High random " immature 0 % [facility] granulocytes, percentage of total cells, blood " basophil count, 0.0 [facility] 0.0-0.2 absolute x10E3/uL " Eosinophil Absolute 0.3 [facility] 0.0-0.4 Count X10E3/UL " monocyte count, 0.4 [facility] 0.1-0.9 blood, automated X10E3/UL " lymphocyte count, 1.5 [facility] 0.7-3.1 blood, automated X10E3/UL " Absolute 3.6 [facility] 1.4-7.0 Neutrophils X10E3/UL " basophils as 0 % [facility] percent of blood leukocytes " eosinophils as 5 % [facility] percent of blood leukocytes " monocytes as 7 % [facility] percent of blood leukocytes " lymphocytes as 25 % [facility] percent of blood leukocytes " neutrophils as 63 % [facility] percent of blood leukocytes " platelet count 210 [facility] 150-379 X10E3/UL " red blood cell 13.2 % [facility] 12.3-15.4 distribution width " mean corpuscular 35.0 G/DL [facility] 31.5-35.7 hemoglobin concentration, RBC " mean corpuscular 35.2 pg [facility] 26.6-33.0 High hemoglobin, RBC " mean corpuscular 101 fL [facility] 79-97 High volume, RBC " hematocrit, blood 40.8 % [facility] 34.0-46.6 " hemoglobin, blood 14.3 g/dL [facility] 11.1-15.9 " erythrocyte (RBC) 4.06 [facility] 3.77-5.28 count X10E6/UL " leukocyte count, 5.8 [facility] 3.4-10.8 blood X10E3/UL " CD4/CD8 ratio 0.68 [facility] 0.92-3.72 Low " T-suppressor cells 28.2 % [facility] 12.0-35.5 (CD8) as percent of blood lymphocytes " absolute CD8 423 [facility] 109-897 " T-helper cells 19.2 % [facility] 30.8-58.5 Low (CD4) as percent of blood lymphocytes " T-helper cells 288 /UL [facility] [id number] Low (CD4) count rapid plasma reagin Non [facility] Non Reactive /01 antibody, serum Reactive " HIV-1RNA, serum, by <20 [facility] PCR, quantitative copies/mL " LDL cholesterol, 58 mg/dL [facility] 0-99 serum " very low density 32 mg/dL [facility] 5-40 lipoproteins " HDL cholesterol, 43 mg/dL [facility] >39 serum " triglyceride, 161 mg/dL [facility] 0-149 High serum, fasting " cholesterol, serum 133 mg/dL [facility] 100-199 " alanine 15 1/L [facility] 0-32 aminotransferase (SGPT), serum " aspartate 16 1/L [facility] 0-40 aminotransferase (SGOT), serum " alkaline 130 1/L [facility] 39-117 High phosphatase, serum " bilirubin, serum, 0.3 mg/dL [facility] 0.0-1.2 total " albumin/globulin 1.5 [facility] 1.1-2.5 ratio, serum " globulin, serum 2.7 [facility] 1.5-4.5 " albumin, serum 4.1 g/dL [facility] 3.5-5.5 " protein, total, 6.8 g/dL [facility] 6.0-8.5 serum " calcium, serum 9.4 mg/dL [facility] 8.7-10.2 " carbon dioxide, 29 mmol/L [facility] 18-29 venous blood " chloride, serum 104 mmol/L [facility] 97-108 " potassium, serum 4.4 mmol/L [facility] 3.5-5.2 " sodium, serum 145 mmol/L [facility] 134-144 High " urea 20 [facility] 9-23 nitrogen/creatinine ratio, serum " eGFR if 117 [facility] >59 [place] mL/min/((17 3/100).m2) " Estimated 102 [facility] >59 [place] mL/min/((17 Filtration Rate 3/100).m2) (calc) " creatinine, serum 0.61 mg/dL [facility] 0.57-1.00 " urea nitrogen, 12 mg/dL [facility] 6-24 blood " blood glucose, 127 mg/dL [facility] 65-99 High random " immature 0 % [facility] granulocytes, percentage of total cells, blood " basophil count, 0.0 [facility] 0.0-0.2 absolute x10E3/uL " Eosinophil Absolute 0.3 [facility] 0.0-0.4 Count X10E3/UL " monocyte count, 0.4 [facility] 0.1-0.9 blood, automated X10E3/UL " lymphocyte count, 1.4 [facility] 0.7-3.1 blood, automated X10E3/UL " Absolute 3.2 [facility] 1.4-7.0 Neutrophils X10E3/UL " basophils as 0 % [facility] percent of blood leukocytes " eosinophils as 5 % [facility] percent of blood leukocytes " monocytes as 7 % [facility] percent of blood leukocytes " lymphocytes as 26 % [facility] percent of blood leukocytes " neutrophils as 62 % [facility] percent of blood leukocytes " platelet count 197 [facility] 150-379 X10E3/UL " red blood cell 13.6 % [facility] 12.3-15.4 distribution width " mean corpuscular 34.3 G/DL [facility] 31.5-35.7 hemoglobin concentration, RBC " mean corpuscular 35.1 pg [facility] 26.6-33.0 High hemoglobin, RBC " mean corpuscular 102 fL [facility] 79-97 High volume, RBC " hematocrit, blood 40.2 % [facility] 34.0-46.6 " hemoglobin, blood 13.8 g/dL [facility] 11.1-15.9 " erythrocyte (RBC) 3.93 [facility] 3.77-5.28 count X10E6/UL " leukocyte count, 5.2 [facility] 3.4-10.8 blood X10E3/UL " CD4/CD8 ratio 0.67 [facility] 0.92-3.72 Low " T-suppressor cells 28.8 % [facility] 12.0-35.5 (CD8) as percent of blood lymphocytes " absolute CD8 403 [facility] 109-897 " T-helper cells 19.2 % [facility] 30.8-58.5 Low (CD4) as percent of blood lymphocytes " T-helper cells 269 /UL [facility] [id number] Low (CD4) count human leukocyte negative [facility] /21 antigen B57 Quantiferon Gold TB Negative [facility] Negative /21 blood test for tuberculosis screening " HIV-1RNA, serum, by <20 [facility] PCR, quantitative copies/mL " rapid plasma reagin Non [facility] Non Reactive antibody, serum Reactive " LDL cholesterol, 33 mg/dL [facility] 0-99 serum " very low density 17 mg/dL [facility] 5-40 lipoproteins " HDL cholesterol, 38 mg/dL [facility] >39 Low serum " triglyceride, 83 mg/dL [facility] 0-149 serum, fasting " cholesterol, serum 88 mg/dL [facility] 100-199 Low " alanine 15 1/L [facility] 0-32 aminotransferase (SGPT), serum " aspartate 23 1/L [facility] 0-40 aminotransferase (SGOT), serum " alkaline 120 1/L [facility] 39-117 High phosphatase, serum " bilirubin, serum, 0.3 mg/dL [facility] 0.0-1.2 total " albumin/globulin 1.8 [facility] 1.1-2.5 ratio, serum " globulin, serum 2.2 [facility] 1.5-4.5 " albumin, serum 3.9 g/dL [facility] 3.5-5.5 " protein, total, 6.1 g/dL [facility] 6.0-8.5 serum " calcium, serum 9.4 mg/dL [facility] 8.7-10.2 " carbon dioxide, 26 mmol/L [facility] 18-29 venous blood " chloride, serum 102 mmol/L [facility] 97-108 " potassium, serum 3.1 mmol/L [facility] 3.5-5.2 Low " sodium, serum 144 mmol/L [facility] 134-144 " urea 11 [facility] 9-23 nitrogen/creatinine ratio, serum " eGFR if 113 [facility] >59 [place] mL/min/((17 3/100).m2) " Estimated 98 [facility] >59 Glomer[place] mL/min/((17 Filtration Rate 3/100).m2) (calc) " creatinine, serum 0.70 mg/dL [facility] 0.57-1.00 " urea nitrogen, 8 mg/dL [facility] 6-24 blood " blood glucose, 77 mg/dL [facility] 65-99 random " immature 0 % [facility] granulocytes, percentage of total cells, blood " basophil count, 0.0 [facility] 0.0-0.2 absolute x10E3/uL " Eosinophil Absolute 0.2 [facility] 0.0-0.4 Count X10E3/UL " monocyte count, 0.3 [facility] 0.1-0.9 blood, automated X10E3/UL " lymphocyte count, 1.3 [facility] 0.7-3.1 blood, automated X10E3/UL " Absolute 3.5 [facility] 1.4-7.0 Neutrophils X10E3/UL " basophils as 0 % [facility] percent of blood leukocytes " eosinophils as 4 % [facility] percent of blood leukocytes " monocytes as 6 % [facility] percent of blood leukocytes " lymphocytes as 24 % [facility] percent of blood leukocytes " neutrophils as 66 % [facility] percent of blood leukocytes " platelet count 243 [facility] 150-379 X10E3/UL " red blood cell 14.1 % [facility] 12.3-15.4 distribution width " mean corpuscular 35.6 G/DL [facility] 31.5-35.7 hemoglobin concentration, RBC " mean corpuscular 37.0 pg [facility] 26.6-33.0 High hemoglobin, RBC " mean corpuscular 104 fL [facility] 79-97 High volume, RBC " hematocrit, blood 33.1 % [facility] 34.0-46.6 Low " hemoglobin, blood 11.8 g/dL [facility] 11.1-15.9 " erythrocyte (RBC) 3.19 [facility] 3.77-5.28 Low count X10E6/UL " leukocyte count, 5.3 [facility] 3.4-10.8 blood X10E3/UL " CD4/CD8 ratio 0.47 [facility] 0.92-3.72 Low " T-suppressor cells 27.6 % [facility] 12.0-35.5 (CD8) as percent of blood lymphocytes " absolute CD8 359 [facility] 109-897 " T-helper cells 13.0 % [facility] 30.8-58.5 Low (CD4) as percent of blood lymphocytes " T-helper cells 169 /UL [facility] [id number] Low (CD4) count T-helper cells 150 Husam Nemecek /21 (CD4) count, lowest absolute value HIV-CMIA Reactive [facility] Non Reactive (Chemiluminescent Microparticle Immuno Assay) " HIV-1RNA, serum, by <20 [facility] PCR, quantitative copies/mL " hepatitis A Negative [facility] Negative antibody, total " hepatitis B core Negative [facility] Negative antibody, total " hepatitis B surface Negative [facility] Negative antigen " rapid plasma reagin Non [facility] Non Reactive antibody, serum Reactive " hepatitis C <0.1 [facility] 0.0-0.9 antibody, serum " toxoplasma gondii <3.0 [facility] 0.0-5.9 antibody, IgG " hepatitis B surface Non [facility] antibody Reactive " LDL cholesterol, 133 mg/dL [facility] 0-99 High serum " very low density 36 mg/dL [facility] 5-40 lipoproteins " HDL cholesterol, 45 mg/dL [facility] >39 serum " triglyceride, 178 mg/dL [facility] 0-149 High serum, fasting " cholesterol, serum 214 mg/dL [facility] 100-199 High " alanine 9 1/L [facility] 0-32 aminotransferase (SGPT), serum " aspartate 10 1/L [facility] 0-40 aminotransferase (SGOT), serum " alkaline 120 1/L [facility] 39-117 High phosphatase, serum " bilirubin, serum, 0.5 mg/dL [facility] 0.0-1.2 total " albumin/globulin 1.7 [facility] 1.1-2.5 ratio, serum " globulin, serum 2.7 [facility] 1.5-4.5 " albumin, serum 4.6 g/dL [facility] 3.5-5.5 " protein, total, 7.3 g/dL [facility] 6.0-8.5 serum " calcium, serum 9.7 mg/dL [facility] 8.7-10.2 " carbon dioxide, 27 mmol/L [facility] 18-29 venous blood " chloride, serum 100 mmol/L [facility] 97-108 " potassium, serum 4.4 mmol/L [facility] 3.5-5.2 " sodium, serum 142 mmol/L [facility] 134-144 " urea 15 [facility] 9-23 nitrogen/creatinine ratio, serum " eGFR if 105 [facility] >59 Armenian mL/min/((17 3/100).m2) " Estimated 91 [facility] >59 Glomerular mL/min/((17 Filtration Rate 3/100).m2) (calc) " creatinine, serum 0.74 mg/dL [facility] 0.57-1.00 " urea nitrogen, 11 mg/dL [facility] 6-24 blood " blood glucose, 96 mg/dL [facility] 65-99 random " immature 0 % [facility] granulocytes, percentage of total cells, blood " basophil count, 0.0 [facility] 0.0-0.2 absolute x10E3/uL " Eosinophil Absolute 0.2 [facility] 0.0-0.4 Count X10E3/UL " monocyte count, 0.3 [facility] 0.1-0.9 blood, automated X10E3/UL " lymphocyte count, 1.7 [facility] 0.7-3.1 blood, automated X10E3/UL " Absolute 3.5 [facility] 1.4-7.0 Neutrophils X10E3/UL " basophils as 0 % [facility] percent of blood leukocytes " eosinophils as 4 % [facility] percent of blood leukocytes " monocytes as 6 % [facility] percent of blood leukocytes " lymphocytes as 30 % [facility] percent of blood leukocytes " neutrophils as 60 % [facility] percent of blood leukocytes " platelet count 225 [facility] 150-379 X10E3/UL " red blood cell 13.6 % [facility] 12.3-15.4 distribution width " mean corpuscular 33.3 G/DL [facility] 31.5-35.7 hemoglobin concentration, RBC " mean corpuscular 35.4 pg [facility] 26.6-33.0 High hemoglobin, RBC " mean corpuscular 106 fL [facility] 79-97 High volume, RBC " hematocrit, blood 44.1 % [facility] 34.0-46.6 " hemoglobin, blood 14.7 g/dL [facility] 11.1-15.9 " erythrocyte (RBC) 4.15 [facility] 3.77-5.28 count X10E6/UL " leukocyte count, 5.8 [facility] 3.4-10.8 blood X10E3/UL " CD4/CD8 ratio 0.73 [facility] 0.92-3.72 Low " T-suppressor cells 25.7 % [facility] 12.0-35.5 (CD8) as percent of blood lymphocytes " absolute CD8 437 [facility] 109-897 " T-helper cells 18.7 % [facility] 30.8-58.5 Low (CD4) as percent of blood lymphocytes " T-helper cells 318 /UL [facility] [phone] Low (CD4) count HISTORY OF IMMUNIZATIONS Date Vaccine Dose Lot Number Status completed HISTORY OF MEDICATION USE Medication Instructions Dates Provider Comments BUPROPION HCL 75 MG 1 By Mouth Twice a Day Husam Nemecek ORAL TABLET TRAMADOL HCL 50 MG ORAL 1 Three Times a Day Husam Nemecek TABLET TRILEPTAL 150 MG ORAL 1 Twice a Day Husam Nemecek TABLET RISPERDAL 1 MG ORAL 1 by mouth once a day Husam Vital TABLET LANTUS 100 UNIT/ML 32 U sc Every pm Husam Vital SUBCUTANEOUS SOLUTION GABAPENTIN 300 MG ORAL 1 by mouth three times Husam Vital CAPSULE a day FANAPT 8 MG ORAL TABLET 1 Twice a Day Husam Vital DEPAKOTE 250 MG ORAL 2 by mouth twice a day Husam De La Rosaecekellie TABLET DELAYED RELEASE BREO ELLIPTA 100-25 1 inhalation Every Day Husam Alvarezk MCG/INH INHALATION AEROSOL POWDER BREATH ACTIVATED ASPIRIN 325 MG ORAL 1 By Mouth Every Day Husam Vital TABLET MECLIZINE HCL 25 MG 1 by mouth 3 times a - Husam Nemecek ORAL TABLET day as needed for dizziness NICOTINE 21-14-7 - Husam Alvarezk MG/24HR TRANSDERMAL KIT NAPROXEN 500 MG ORAL 1 by mouth twice a day - Husam Nemecek TABLET as needed for pain OMEPRAZOLE CPDR - Husam Nemecek LIPITOR TABLET Remy Perdomo BENZTROPINE MESYLATE Remy Perdomo TABLET SEROQUEL TABLET - Husam Vital DULOXETINE HCL CAPSULE Remy Perdomo DELAYED RELEASE PARTICLES VENLAFAXINE HCL TABLET - Husam Vital TRIUMEQ 600-50-300 MG One tablet daily with Husam De La Rosaecek ORAL TABLET or without food SPIRIVA HANDIHALER 18 Inhale 1 cap Every Day Husam De La Rosaecek MCG INHALATION CAPSULE PROAIR HFA 108 (90 2 puffs every 4 - 6 Husam De La Rosaecek Base) MCG/ACT hours as needed INHALATION AEROSOL SOLUTION SOCIAL HISTORY Date Observation Value Provider smoking, advice to quit Yes Husam Vital " drug use, illicit Previously Tai Dugan Teresa " alcohol use Previously Tai Dugan Teresa " social history E&M . N Tai Dugan ot homeless. Born in [facility]. [place]: [place]. State: [place]. N ot employed. Gender of partner(s): male. Sexually Active: No. Sex at : female. " social history reviewed reviewed today Tai Dugan E&M Teresa " assessment of health Limited Tai Dugan literacy (COMMUNITY HEALTH 2014 [place] Standards, 3C10) " sexual orientation Heterosexual Tai Dugan Teresa " is there any chance that No Tai Dugan you could be ? Teresa " passive cigarette smoke No Tai Dugan exposure " smoking status current every day smoker Tai Dugan Teresa " Exercise Program Referral T Tai Dugan Teresa " Weight Management T Tai Dugan Counseling Provided " Nutrition intervention T Tai Dugan Teresa sexual orientation Heterosexual Husam Vital " smoking, advice to quit Yes Husam Vital " assessment of health Limited Nkechi Mariscal literacy (COMMUNITY HEALTH 2014 Standards, 3C10) " smoking status current every day smoker Nkechi Mariscal " drug use, illicit Previously Nkechi Mariscal " alcohol use Previously Nkechi Mariscal " social history E&M . N Nkechi Mariscal ot homeless. Born in [facility]. City: [place]. State: [place]. N ot employed. Gender of partner(s): male. Sexually Active: No. Sex at : female. " social history reviewed reviewed today Nkechi Mariscal E&M " Exercise Program Referral T Nkechi Mariscal " Weight Management T Nkechi Mariscal Counseling Provided " Nutrition intervention T Nkechi Mariscal time of call 06/06/2019 3:18 PM Meka [place] sexual orientation Heterosexual Husam Nemecek " smoking, advice to quit Yes Husam Nemecek " drug use, illicit Previously Valentine Lance " alcohol use Previously Valentine Lance " social history E&M . N Valentine Lucas ot homeless. Born in [place] City: [place]. State: [place]. N ot employed. Gender of partner(s): male. Sexually Active: No. Sex at : female. " social history reviewed reviewed today Valentine Lucas E&M " is there any chance that No Valentine Lucas you could be ? " assessment of health Limited Valentine Lucas literacy (COMMUNITY HEALTH 2014 Standards, 3C10) " Exercise Program Referral T Valentine Lance " Weight Management T Valentine Lance Counseling Provided " Nutrition intervention T Valentine Lance " passive cigarette smoke No Valentine Lance exposure " smoking status current every day smoker Valentine Lucas time of call 12/25/2018 10:52 AM Phi Pearce sexual orientation Heterosexual Husam Nemecek " smoking, advice to quit Yes Husam Estrellaecek " Exercise Program Referral T Husam De La Rosadaviek " Weight Management T Husam Nemecek Counseling Provided " Nutrition intervention T Husam Nemdaviek " drug use, illicit Previously Sisi J Micah " alcohol use Previously Sisi J Micah " social history E&M . N Sisi Obrien ot homeless. Born in [place] City: [place]. State: [place]. N ot employed. Gender of partner(s): male. Sexually Active: No. Sex at : female. " social history reviewed reviewed today Sisi Obrien E&M " passive cigarette smoke No Sisi J Obrien exposure " smoking status current every day smoker Sisi Catie Obrien sexual orientation Heterosexual Husam Nemecek " smoking, advice to quit Yes Husam De La Rosaecek " drug use, illicit Previously Nkechi Mariscal " alcohol use Previously Nkechi Mariscal " social history E&M . N Nkechi Mariscal ot homeless. Born in [place] City: [place]. State: [place]. N ot employed. Gender of partner(s): male. Sexually Active: No. Sex at : female. " social history reviewed reviewed today Nkechi Mariscal E&M " passive cigarette smoke Yes Nkechi Mariscal exposure " smoking status current every day smoker Nkechi Mariscal " assessment of health Limited Nkechi Mariscal literacy (COMMUNITY HEALTH 2014 Standards, 3C10) " Exercise Program Referral T Nkechi Mariscal " Weight Management T Nkechi Mariscal Counseling Provided " Nutrition intervention T Nkechi Mariscal smoking, advice to quit Yes Husam Vital " sexual orientation Heterosexual Husam Vital " passive cigarette smoke No Nkechi Mariscal exposure " assessment of health Limited Nkechi Mariscal literacy (COMMUNITY HEALTH 2014 Standards, 3C10) " smoking status current every day smoker Nkechi Mariscal " drug use, illicit Previously Nkechi Mariscal " alcohol use Previously Nkechi Mariscal " social history E&M . N Nkechi Mariscal ot homeless. Born in [facility]. City: [place]. State: [place]. N ot employed. Gender of partner(s): male. Sexually Active: No. Sex at : female. " social history reviewed reviewed today Nkechi Mariscal E&M " Exercise Program Referral T Nkechi Mariscal " Weight Management T Nkechi Mariscal Counseling Provided " Nutrition intervention T Nkechi Mariscal smoking, advice to quit Yes Husam Estrellaecek " drug use, illicit Previously Nkechi Mariscal " alcohol use Previously Nkechi Mariscal " cigarettes, number smoked 5-6 Nkechi Mariscal per day " social history E&M . N Nkechi Mariscal ot homeless. Born in [place] City: [place]. State: [place]. N ot employed. Gender of partner(s): male. Sexually Active: No. Sex at : female. " social history reviewed reviewed today Nkechi Mariscal E&M " smoking status current every day smoker Nkechi Mariscal " is there any chance that No Nkechi Mariscal you could be ? " passive cigarette smoke No Nkechi Mariscal exposure " assessment of health Adequate Nkechi Mariscal literacy (COMMUNITY HEALTH 2014 Standards, 3C10) social history E&M . N Husam De La Rosaecek ot homeless. Born in [place] City: [place]. State: [place]. N ot employed. Gender of partner(s): male. Sexually Active: No. Sex at : female. " social history reviewed reviewed today Husam Nemecek E&M " smoking, advice to quit Yes Husam Nemecek " Exercise Program Referral T Husam Vital " Weight Management T Husam Vital Counseling Provided " Nutrition intervention T Husam Vital " drug use, illicit Previously Iesha Lance " alcohol use Previously Kiron Lance " cigarettes, number smoked 10 a day Iesha Lance per day " smoking status current every day smoker Kiron Lance " sexual orientation Heterosexual Kiron Lance " passive cigarette smoke No Kiron Lance exposure " assessment of health Adequate Husam Estrellaecekellie literacy (COMMUNITY HEALTH 2014 Standards, 3C10) smoking, advice to quit Yes Husam Nemecek " drug use, illicit Previously Nkechi Mariscal " alcohol use Previously Nkechi Mariscal " social history E&M . N Nekchi Mariscal ot homeless. Born [place] City[place]. State: [place]. N ot employed. Gender of partner(s): male. Sexually Active: No. Sex at : female. " social history reviewed reviewed today Nkechi Mariscal E&M " is there any chance that No Nkechi Mariscal you could be ? " sexual orientation Heterosexual Nkechi Mariscal " smoking status current every day smoker Nkechi Mariscal " assessment of health Adequate Nkechi Mariscal literacy (COMMUNITY HEALTH 2014 Standards, 3C10) " Exercise Program Referral T Nkechi Mariscal " Weight Management T Nkechi Mariscal Counseling Provided " Nutrition intervention T Nkechi Mariscal sexual orientation Heterosexual Husam Vital " smoking, advice to quit Yes Husam Vital " drug use, illicit Previously Nkechi Mariscal " alcohol use Previously Nkechi Mariscal " social history E&M . N Nkechi Mariscal ot homeless. Born [place] City[place]. State: [place]. N ot employed. Gender of partner(s): male. Sexually Active: No. Sex at : female. " social history reviewed reviewed today Nkechi Mariscal E&M " passive cigarette smoke No Nkechi Mariscal exposure " smoking status current every day smoker Nkechi Mariscal " Exercise Program Referral T Nkechisharita Mariscal " Weight Management T Nkechi Mariscal Counseling Provided " Nutrition intervention T Nkechi Mariscal chewing tobacco use No Malu Hurst " cigar use No Malu Hurst " cigarette use Yes Malu Hurst " tobacco use (cigarettes, Currently Malu Hurst cigar, chew, pipe) " smoking status current every day smoker Malu Hurst sexual orientation Heterosexual Husam Vital " smoking, advice to quit Yes Husam Vital " Exercise Program Referral Jamin Vital " Weight Management T Husam Vital Counseling Provided " Nutrition intervention Jamin Vital " alcohol use Previously Nkechi Mariscal " social history E&M . N Nkechi Mariscal ot homeless. Born in [facility]. City: [place]. State: [place]. N ot employed. Gender of partner(s): male. Sexually Active: No. Sex at : female. " social history reviewed reviewed today Nkechi Mariscal E&M " is there any chance that No Nkechi Mariscal you could be ? " passive cigarette smoke No Nkechi Mariscal exposure " cigarettes, number smoked 2-3 Nkechi Mariscal per day " smoking status current every day smoker Nkechi Mariscal Exercise Program Referral Jamin Vital " Weight Management T Husam Vital Counseling Provided " Nutrition intervention Jamin Vital " alcohol use Previously Nkechi Mariscal " social history E&M . N Nkechi Mariscal ot homeless. Born in [facility]. City: [place]. State: [place]. N ot employed. Gender of partner(s): male. Sexually Active: No. Sex at : female. " social history reviewed reviewed today Nkechi Mariscal E&M " is there any chance that No Nkechi Mariscal you could be ? " passive cigarette smoke No Nkechi Mariscal exposure " cigarettes, number smoked 1-2 Nkechi Mariscal per day " smoking status current every day smoker Nkechi Mariscal drug use, illicit Previously Jo Valle " alcohol use Previously Jo Valle " cigarettes, number smoked 1-2 Jo Leonard per day " smoking status current every day smoker Jo Valle sexual orientation Heterosexual Husam Vital " social history E&M . N Husam Vital ot homeless. Born in [facility]. City: [place]. State: [place]. N ot employed. Gender of partner(s): male. Sexually Active: No. Sex at : female. " social history reviewed reviewed today Huasm Vital E&M " passive cigarette smoke No Nkechi Mariscal exposure " smoking status current every day smoker Nkechi Mariscal sexual orientation Heterosexual Husam Vital " What type of drug was used cocaine Husam Vital " social history E&M . N Valentine Lucas ot homeless. Born in [facility]. City: [place]. State: [place]. N ot employed. Gender of partner(s): male. Sexually Active: No. Sex at : female. " drug use, illicit Previously Husam Vital " alcohol use Previously Husam Antoniokellie " sex at female Valentine Lucas " patient considered to be No Valentine Lance homeless " social history reviewed reviewed today Valentine Lance E&M " passive cigarette smoke No Valentine Lance exposure " cigarettes, number smoked 5-6 Valentine Lance per day " smoking status current every day smoker Valentine Lucas FUNCTIONAL STATUS No Information Available MENTAL STATUS Date Observation Value Provider assessment of mood and no depression, anxiety, Husam Nemecek affect E&M or agitation " Generalized Anxiety Disorder 0 Tai Dugan Teresa Questionnaire - Question 2 " Generalized Anxiety Disorder 0 Tai Dugan Teresa Questionnaire - Question 1 assessment of mood and no depression, anxiety, Husam Nemecek affect E&M or agitation " Generalized Anxiety Disorder 0 Nkechi Mariscal Questionnaire - Question 2 " Generalized Anxiety Disorder 0 Nkechi Mariscal Questionnaire - Question 1 assessment of mood and no depression, anxiety, Husam Nemecek affect E&M or agitation " Generalized Anxiety Disorder 0 Valentine Lance Questionnaire - Question 2 " Generalized Anxiety Disorder 0 Valentine Lance Questionnaire - Question 1 assessment of mood and no depression, anxiety, Husam Nemecek affect E&M or agitation " Generalized Anxiety Disorder 0 Sisi J Obrien Questionnaire - Question 2 " Generalized Anxiety Disorder 0 Sisi J Obrien Questionnaire - Question 1 assessment of mood and no depression, anxiety, Husam Nemecek affect E&M or agitation " Generalized Anxiety Disorder 0 Nkechi Mariscal Questionnaire - Question 2 " Generalized Anxiety Disorder 0 Nkechi Mariscal Questionnaire - Question 1 assessment of mood and no depression, anxiety, Husam Nemecek affect E&M or agitation " Generalized Anxiety Disorder 0 Nkechi Mariscal Questionnaire - Question 2 " Generalized Anxiety Disorder 0 Nkechi Mariscal Questionnaire - Question 1 assessment of mood and no depression, anxiety, Husam Nemecek affect E&M or agitation " Generalized Anxiety Disorder 0 Nkechi Mariscal Questionnaire - Question 2 " Generalized Anxiety Disorder 0 Nkechi Mariscal Questionnaire - Question 1 assessment of mood and no depression, anxiety, Husam Nemecek affect E&M or agitation " Generalized Anxiety Disorder 0 Iesha Lance Questionnaire - Question 2 " Generalized Anxiety Disorder 0 Iesha Lance Questionnaire - Question 1 assessment of mood and no depression, anxiety, Husam Nemecek affect E&M or agitation " Generalized Anxiety Disorder 0 Nkechi Mariscal Questionnaire - Question 2 " Generalized Anxiety Disorder 0 Nkechi Mariscal Questionnaire - Question 1 assessment of mood and no depression, anxiety, Husam Nemecek affect E&M or agitation " Generalized Anxiety Disorder 0 Nkechi Mariscal Questionnaire - Question 2 " Generalized Anxiety Disorder 0 Nkechi Mariscal Questionnaire - Question 1 assessment of mood and no depression, anxiety, Husam Nemecek affect E&M or agitation " Generalized Anxiety Disorder 1 Nkechi Mariscal Questionnaire - Question 2 " Generalized Anxiety Disorder 1 Nkechi Mariscal Questionnaire - Question 1 Generalized Anxiety Disorder 1 Nkechi Mariscal Questionnaire - Question 2 " Generalized Anxiety Disorder 1 Nkechi Mariscal Questionnaire - Question 1 Generalized Anxiety Disorder 1 Channin Leonard Questionnaire - Question 2 " Generalized Anxiety Disorder 2 Channin Leonard Questionnaire - Question 1 Generalized Anxiety Disorder 0 Nkechi Mariscal Questionnaire - Question 2 " Generalized Anxiety Disorder 0 Nkechi Mariscal Questionnaire - Question 1 Generalized Anxiety Disorder 0 Valentine Lance Questionnaire - Question 2 " Generalized Anxiety Disorder 0 Valentine Lance Questionnaire - Question 1 MEDICAL EQUIPMENT No Information Available FAMILY HISTORY No Information Available INSURANCE PROVIDERS Payer name Policy type / Coverage type Covered green party ID *Arthur White 0-100% Other [id number] Sliding Fee - Cat 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 Metabolic Panel (14) CBC With Differential/Platelet CD4/CD8 Ratio Profile Lipid Panel RNA, Real Time PCR (Graph) RPR, Rfx Qn RPR/Confirm TP Comp. Metabolic Panel (14) CBC With Differential/Platelet CD4/CD8 Ratio Profile Lipid Panel RNA, Real Time PCR (Graph) RPR, Rfx Qn RPR/Confirm TP Comp. Metabolic Panel (14) CBC With Differential/Platelet CD4/CD8 Ratio Profile Lipid Panel RNA, Real Time PCR (Graph) QuantiFERON - TB Gold ( Client Incubated ) HCV Antibody RPR, Rfx Qn RPR/Confirm TP Comp. Metabolic Panel (14) CBC With Differential/Platelet CD4/CD8 Ratio Profile Lipid Panel RNA, Real Time PCR (Graph) RPR, Rfx Qn RPR/Confirm TP Comp. Metabolic Panel (14) CBC With Differential/Platelet CD4/CD8 Ratio Profile Lipid Panel RNA, Real Time PCR (Graph) RPR, Rfx Qn RPR/Confirm TP Comp. Metabolic Panel (14) CBC With Differential/Platelet CD4/CD8 Ratio Profile Lipid Panel RNA, Real Time PCR (Graph) RPR, Rfx Qn RPR/Confirm TP Comp. Metabolic Panel (14) CBC With Differential/Platelet CD4/CD8 Ratio Profile Lipid Panel RNA, Real Time PCR (Graph) FIT- Fecal immunoassay test RPR, Rfx Qn RPR/Confirm TP Comp. Metabolic Panel (14) CBC With Differential/Platelet CD4/CD8 Ratio Profile RNA, Real Time PCR (Graph) QuantiFERON TB Gold (In Tube) Lipid Panel RPR, Rfx Qn RPR/Confirm TP Comp. Metabolic Panel (14) CD4/CD8 Ratio Profile RNA, Real Time PCR (Graph) Chlamydia/GC Amplification (Urine) Vitamin D, 25-Hydroxy HBsAg Screen HCV Antibody Lipid Panel RPR, Rfx Qn RPR/Confirm TP Comp. Metabolic Panel (14) CD4/CD8 Ratio Profile RNA, Real Time PCR (Graph) Lipid Panel RPR, Rfx Qn RPR/Confirm TP Comp. Metabolic Panel (14) CD4/CD8 Ratio Profile RNA, Real Time PCR (Graph) QuantiFERON TB Gold (In Tube) HLA [id number] Test Lipid Panel RPR, Rfx Qn RPR/Confirm TP Comp. Metabolic Panel (14) CD4/CD8 Ratio Profile RNA, Real Time PCR (Graph) Toxoplasma gondii Ab, IgG, Qn RPR RNA, Real Time PCR (Graph) Lipid Panel HIV 1/2 ANTIGEN/ANTIBODY, FOURTH GENERATION W/RFL HCV Antibody HBsAg Screen Hep B Surface Ab Hep B Core Ab, Tot Hep A Ab, Total Comp. Metabolic Panel (14) CD4/CD8 Ratio Profile Ofc Vst, Est Level IV Ofc Vst, Est Level IV Ofc Vst, Est Level IV Ofc Vst, Est Level IV Ofc Vst, Est Level IV Ofc Vst, Est Level IV Ofc Vst, Est Level IV Ofc Vst, Est Level IV Ofc Vst, Est Level IV Hepatitis B - Adult Ofc Vst, Est Level IV Hepatitis B - Adult Ofc Vst, Est Level IV Hepatitis B - Adult Pneumovax Vaccine [id number] Ofc Vst, Est Level III Primary Care Medical Case Management Est Patient Detailed - [id number] Primary Care Service Linkage Ofc Vst, Est Level III Primary Care - Assesment-Brief - SLW Primary Care Service Linkage Ofc Vst, New Level IV Vision Handling of specimen for transfer Venipuncture HISTORY OF PROCEDURES Procedure Date Procedure Name Provider Procedure Notes Status Primary Care Medical Dilma Hunt Time spent with completed Case Management patient: 20 Primary Care Service Zee Rodriguez Time spent with completed Linkage patient:68 Primary Care - Zee Rodriguez Time spent with completed Assesment-Brief - SLW patient:15 Primary Care Service Zee Rodriguez Time spent with completed Linkage patient:65 Venipuncture Elodia Cespedes completed GOALS No Information Available HEALTH CONCERNS No Information Available
[2020-02-02] MEDS ORDERED: NA CHLORIDE 0.9% 100 ML IV ONE (19:54)
[2020-02-02] MEDS ORDERED: LEVETIRACETAM 500 MG/5 ML VIAL IV ONE (19:54)
[2020-02-02] MEDS ORDERED: NA CHLORIDE 0.9% 1,000 ML ONE (20:05)
[2020-02-02 20:09] LABS: Absolute Lymphocytes (CBC) 2.3 K/uL (0.7-4.9); Basophils % 0.5 % (0-1.3); Hematocrit 37.8 % (36.0-45.0); Lymphocytes % 39.2 % (15.3-44.8); MPV 8.7 fL (7.6-11.3); RBC Red Blood Cell Count 3.71 M/uL (3.86-4.86)
[2020-02-02 20:23] LABS: Albumin 2.8 g/dL (3.4-5.0); Bilirubin Total 0.2 mg/dL (0.2-1.0); Magnesium 1.8 mg/dL (1.8-2.4); Potassium 3.9 mmol/L (3.5-5.1); Protein, Total 6.7 g/dL (6.4-8.2)
[2020-02-02 20:35] LABS: Urine Blood TRACE (NEG); Urine Glucose NEGATIVE (NEG); Urine Protein NEGATIVE (NEG)
--- NOTE | 2020-02-02 20:37 | RAD REPORT ---
EXAM DESCRIPTION: CTSpine Lumbar Wo Con02/02/2020 8:17 pm CLINICAL HISTORY: Back injury with back pain status post seizure and fall COMPARISON: None TECHNIQUE: Computed axial tomography lumbar spine was obtained with coronal and sagittal reconstruct ion. All CT scans are performed using dose optimization technique as appropriate and may include automated exposure control or mA/KV adjustment according to patient size. FINDINGS: No fracture is seen. No dislocation is noted. Left lateral disc herniation L2-3 narrows the left neural foramina Left lateral disc herniation L3-4 narrows the left neural foramina Small left lateral disc herniation L4-5 mildly narrows the left neural foramina IMPRESSION: Negative for a lumbar fracture. Moderate left lateral disc herniations L3-4 and L4-5
--- NOTE | 2020-02-02 20:37 | RAD REPORT ---
EXAM DESCRIPTION: CT - C Spine Wo Con - 02/02/2020 8:24 pm CLINICAL HISTORY: Seizure with fall and neck pain COMPARISON: None. TECHNIQUE: Computed axial tomography of the cervical spine were obtained with sagittal and coronal r econstruction images generated and reviewed. All CT scans are performed using dose optimization technique as appropriate and may include automated exposure control or mA/KV adjustment according to patient size. FINDINGS: A cervical fracture is not seen. No dislocation Mild spondylosis involves the cervical spine IMPRESSION: A cervical fracture is not seen. Mild spondylosis If there are clinical symptoms to suggest spinal cord pathology MRI would be recommended
--- NOTE | 2020-02-02 20:38 | RAD REPORT ---
EXAM DESCRIPTION: CT - Head Brain W/Wo Con - 02/02/2020 8:24 pm CLINICAL HISTORY: Seizure COMPARISON: 2019 TECHNIQUE: Computed axial tomography of the head was obtained. Unenhanced and enhanced images obtain ed. 50 cc Isovue-[address] scans are performed using dose optimization technique as appropriate and may include automated exposure control or mA/KV adjustment according to patient size. FINDINGS: An intracranial bleed is not seen . The ventricles are normal in caliber. No extra-axial fluid collection is noted. No abnormal enhancement seen Mild to moderate low-density areas within periventricular, deep and subcortical white matter may repr esent ischemic changes secondary to small vessel disease Small amount of fluid is present the left mastoid IMPRESSION: No acute intracranial abnormality is seen. If patient's symptoms persist MRI of the bra in would be recommended.
--- NOTE | 2020-02-02 20:41 | RAD REPORT ---
EXAM DESCRIPTION: Sach[place] Single View02/02/2020 7:41 pm CLINICAL HISTORY: Congestion COMPARISON: 2019 FINDINGS: The lungs appear clear of acute infiltrate. The heart is normal size IMPRESSION: No acute abnormalities displayed
[2020-02-02] MEDS ORDERED: CEFTRIAXONE/SWI 1gm 1 GM/10 ML SYR ONE (21:30)
--- NOTE | 2020-02-02 21:41 | ER ---
Nurse's Notes [facility] Name: Lucia Arias Age: 59 yrs Sex: Female : 1960 Arrival Date: 02/02/2020 Time: 19:16 Bed 6 Private MD: Diagnosis: Cystitis, unspecified without hematuria Presentation: 02/01 19:15 Chief complaint: EMS states: healthcare staff reports that patient had a syncopal jb4 episode with seizure like activity that lasted for 4 minutes. Pt was A\T\O x1 upon EMS arrival, B/P was 80/50, BGL of 199. Pt was A\T\Ox4 upon arrival to the ED. Was given 4 of zofran and 400ml's of NS during transit. 19:15 Coronavirus screen: The patient has NOT traveled to a country currently being monitored jb4 by the [facility] within the last 14 days. Proceed with normal triage procedures. The patient has NOT had contact with any known and/or suspected case of coronavirus. Proceed with normal triage procedures. Ebola Screen: No symptoms or risks identified at this time. Initial Sepsis Screen: Does the patient meet any 2 criteria? No. Patient's initial sepsis screen is negative. Does the patient have a suspected source of infection? No. Patient's initial sepsis screen is negative. Risk Assessment: Do you want to hurt yourself or someone else? Patient reports no desire to harm self or others. Care prior to arrival: Medication(s) given: Normal saline infusion, 400ml zofran 4 mg, IV initiated. 18 GA, in the right antecubital area, Glucose check: 199. 19:15 Method Of Arrival: EMS: [facility] jb4 19:15 Acuity: LATONYA 3 jb4 Historical: - Allergies: 19:15 Codeine; jb4 19:15 Demerol; jb4 19:15 PENICILLINS; jb4 19:15 Sulfa (Sulfonamide Antibiotics); jb4 - Home Meds: 19:15 aspirin 325 mg Oral tab 1 tab once daily [Active]; benztropine 1 mg Oral tab 1 tab 2 jb4 times per day [Active]; buspirone 10 mg Oral tab 1 tab 3 times per day [Active]; cranberry 450 mg oral tab [Active]; Cymbalta 30 mg oral cpDR 1 cap once daily [Active]; Depakote Sprinkles 125 mg Oral cpSP 2 caps every 12 hours [Active]; gabapentin 300 mg Oral cap 1 cap 3 times per day [Active]; Glucagon Emergency Kit (human) 1 mg IM kit 1 mL [Active]; Humalog 100 unit/mL Sub-Q crtg sliding scale ac hs [Active]; Imodium Oral [Active]; isoniazid 300 mg Oral tab once daily [Active]; lactulose 10 gram/15 mL Oral soln 15 mL twice a day [Active]; Lantus 100 unit/mL Sub-Q soln 28 unit nightly [Active]; loratadine 10 mg oral tab 1 tab once daily [Active]; pyridoxine (vitamin B6) 50 mg Oral tab [Active]; Risperdal 1 mg Oral tab 1 tab once daily [Active]; tramadol 50 mg Oral tab 1 tab q6h prn [Active]; tramadol 300 mg Oral Tb24 1 tab once daily [Active]; Spiriva with HandiHaler 18 mcg inhalation CpDv 1 cap once daily [Active]; Trileptal 150 mg Oral tab 1 tabs 2 times per day [Active]; Triumeq 600-50-300 mg Oral tab 1 tab once daily [Active]; Vitamin D Oral 2000 unit daily [Active]; fluticasone-salmeterol inhalation 2 times per day [Active]; - PMHx: 19:15 Angina; Anxiety; ATHEROSCLEROSIS; Bipolar disorder; Chronic pain; MUSCLE WEAKNESS; CAD; jb4 Cellulitis; HIV; GERD; Hyperlipidemia; LACK OF COORDINATION; neuropathy; Pneumonia; pulmonary edema; Schizophrenia; UTI; vitamin d deficiency; Difficulty walking; Diabetes - IDDM; Depression; COPD; - Immunization history:: Adult Immunizations up to date. - Social history:: Smoking status: Patient reports the use of cigarette tobacco products, smokes one-half pack cigarettes per day, Patient/guardian denies using alcohol, street drugs, Patient/guardian denies using The patient lives in an assisted living center. - Family history:: not pertinent. Screenin:15 Abuse screen: Denies threats or abuse. Nutritional screening: No deficits noted. jb4 Tuberculosis screening: No symptoms or risk factors identified. Fall Risk Secondary diagnosis (15 points) seizures, IV access (20 points). Total Tello Fall Scale indicates Low Risk Score (25-44 pts). Fall prevention measures have been instituted. Side Rails Up X 2 Placed close to Nursing Station Frequent Obs/Assesments occuring As available Patient and Family Educated on Fall Prevention Program and strategies. Assessment: 19:15 General: Appears in no apparent distress. comfortable, Behavior is calm, cooperative, jb4 appropriate for age. Pain: Complains of pain in low back area Pain does not radiate. Pain currently is 10 out of 10 on a pain scale. Quality of pain is described as sharp, Pain began 1 day ago. Is continuous, Alleviated by rest, Aggravated by increased activity. Neuro: Level of Consciousness is awake, alert, obeys commands, Oriented to person, place, time, situation, Manager Supply are equal bilaterally Moves all extremities. Speech is normal, Facial symmetry appears normal, Pupils are PERRLA. Cardiovascular: Rhythm is sinus rhythm. Respiratory: Airway is patent Respiratory effort is even, unlabored, Respiratory pattern is regular, symmetrical. GI: No signs and/or symptoms were reported involving the gastrointestinal system. : No signs and/or symptoms were reported regarding the genitourinary system. EENT: No signs and/or symptoms were reported regarding the EENT system. Derm: Skin is intact, Skin is pink, warm \T\ dry. Musculoskeletal: Circulation, motion, and sensation intact. Range of motion: intact in all extremities. 20:35 Reassessment: Patient appears in no apparent distress at this time. Patient and/or jb4 family updated on plan of care and expected duration. Pain level reassessed. Patient is alert, oriented x 3, equal unlabored respirations, skin warm/dry/pink. PT is back from CT. Assisted with bedpan. Given a warm blanket per request. IV site is dry and intact with no s/s of infiltration. Fluids infusing freely. 21:30 Reassessment: Patient appears in no apparent distress at this time. Patient and/or jb4 family updated on plan of care and expected duration. Pain level reassessed. Patient is alert, oriented x 3, equal unlabored respirations, skin warm/dry/pink. 22:00 Reassessment: Report given to AUBREE Almanza \T\ [facility]. jb4 22:07 Reassessment: Spoke with Katt at [facility], states that they do not aj have transport at this time so they are unsure how they will get their resident transferred back. States that she is calling her DON and will call back. 22:20 Reassessment: Linens changed. jb4 22:30 Reassessment: Patient appears in no apparent distress at this time. Patient and/or jb4 family updated on plan of care and expected duration. Pain level reassessed. Patient is alert, oriented x 3, equal unlabored respirations, skin warm/dry/pink. Mary from [facility] called and reports that [facility] will be here in approximately an hour and a half to transport the pt back to [facility]. 23:42 Reassessment: Patient appears in no apparent distress at this time. Patient and/or jb4 family updated on plan of care and expected duration. Pain level reassessed. Patient is alert, oriented x 3, equal unlabored respirations, skin warm/dry/pink. Pt given a bed bath and linens changed. Pt d/c pending transportation back to [facility]. Patient denies pain at this time. 02/02 00:21 Reassessment: Patient appears in no apparent distress at this time. Patient and/or jb4 family updated on plan of care and expected duration. Pain level reassessed. Patient is alert, oriented x 3, equal unlabored respirations, skin warm/dry/pink. PT is being discharged back to [facility] Via [facility]. Verbalized understanding of d/c and follow up instructions. Report given to EMS, verbalized understanding of d/c and follow up instructions. Belongings sent with EMS. Vital Signs: 02/01 19:15 BP 134 / 76; Pulse 78; Resp 18; Temp 98.7(O); Pulse Ox 99% on R/A; Weight 90.54 kg (R); jb4 Height 5 ft. 4 in. (162.56 cm); Pain 10/10; 20:34 BP 106 / 72; Pulse 95; Resp 11; Pulse Ox 96% on R/A; jb4 21:30 BP 125 / 77; Pulse 95; Resp 16; Pulse Ox 99% on R/A; jb4 22:00 BP 114 / 73; Pulse 93; Resp 18; Pulse Ox 93% on R/A; jb4 23:30 BP 108 / 76; Pulse 93; Resp 18; Pulse Ox 90% on R/A; jb4 19:15 Body Mass Index 34.26 (90.54 kg, 162.56 cm) jb4 ED Course: 19:15 Arm band placed on right wrist. jb4 19:15 Patient has correct armband on for positive identification. Placed in gown. Bed in low jb4 position. Call light in reach. Side rails up X 1. equipment monitor phototypesetting on. Pulse ox on. NIBP on. 19:16 Patient arrived in ED. cf2 19:20 Nida Barry MD is Attending Physician. ma2 19:23 Beau Card RN is Primary Nurse. jb4 19:29 Triage completed. jb4 19:34 EKG done, by ED staff, reviewed by Nida Barry MD. ds4 19:42 Chest Single View XRAY In Process Unspecified. EDMS 19:45 Maintain EMS IV. Dressing intact. Good blood return noted. Site clean \T\ dry. Gauge \T\ adela 4 site: 18g RAC. Flushed right antecubital with 5 ml normal saline. 02/02 00:21 No provider procedures requiring assistance completed. IV discontinued, intact, jb4 bleeding controlled, No redness/swelling at site. Pressure dressing applied. Administered Medications: 03 19:55 Drug: Keppra 1000 mg Route: IV; Rate: calculated rate; Site: right antecubital; jb4 20:42 Follow up: Response: No adverse reaction; IV Status: Completed infusion; IV Intake: jb4 100ml 20:00 Drug: NS 0.9% 1000 ml Route: IV; Rate: 1 bolus; Site: right antecubital; jb4 21:00 Follow up: Response: No adverse reaction; IV Status: Completed infusion; IV Intake: jb4 1000ml 21:25 Drug: Rocephin 1 grams Route: IV; Rate: calculated rate; Site: right antecubital; rr5 21:27 Follow up: Response: No adverse reaction; IV Status: Completed infusion; IV Intake: [id number] Intake: 20:42 IV: 100ml; Total: 100ml. jb4 21:00 IV: 1000ml; Total: 1100ml. jb4 21:27 IV: 10ml; Total: 1110ml. jb4 Outcome: 21:39 Discharge ordered by . ma2 02/02 00:21 Discharged to detention. Report called to AUBREE Almanza jb4 Condition: stable Discharge instructions given to patient, detention, EMS, Instructed on discharge instructions, follow up and referral plans. no driving heavy equipment, Demonstrated understanding of instructions, follow-up care, medications, Prescriptions given X 1. 00:26 Patient left the ED. jb4 Signatures: Dispatcher [employer] EDMS Melida Valle RN RN aj1 Elkin Sofia ds4 Beau Card RN RN jb4 Nida Barry MD MD pr2 Humza Nascimento RN RN rr5 Andrea Flores 2 Corrections: (The following items were deleted from the chart) 00:26 00:21 Reassessment: Patient appears in no apparent distress at this time. Patient jb4 and/or family updated on plan of care and expected duration. Pain level reassessed. Patient is alert, oriented x 3, equal unlabored respirations, skin warm/dry/pink. PT is being discharged back to [facility] Via [facility]. Verbalized understanding of d/c and follow up instructions. Report given to EMS, verbalized understanding of d/c and follow up instructions. jb4
--- NOTE | 2020-02-02 21:41 | EDPHYS ---
Physician Documentation [facility] Name: Lucia Arias Age: 59 yrs Sex: Female : 1960 Arrival Date: 02/02/2020 Time: 19:16 Bed 6 Private MD: ED Physician Nida Barry HPI: 02/01 21:37 This 59 yrs old Female presents to ER via EMS with complaints of Syncope. ma2 21:37 The patient has experienced syncope. Onset: The symptoms/episode began/occurred ma2 suddenly, 1 hour(s) ago. Associated signs and symptoms: Pertinent negatives: ataxia, blurred vision, combativeness, confusion, diarrhea. Current symptoms: Currently, the patient is not experiencing any symptoms. The patient has not experienced similar symptoms in the past. she is back to normal now . Historical: - Allergies: 19:15 Codeine; jb4 19:15 Demerol; jb4 19:15 PENICILLINS; jb4 19:15 Sulfa (Sulfonamide Antibiotics); jb4 - Home Meds: 19:15 aspirin 325 mg Oral tab 1 tab once daily [Active]; benztropine 1 mg Oral tab 1 tab 2 jb4 times per day [Active]; buspirone 10 mg Oral tab 1 tab 3 times per day [Active]; cranberry 450 mg oral tab [Active]; Cymbalta 30 mg oral cpDR 1 cap once daily [Active]; Depakote Sprinkles 125 mg Oral cpSP 2 caps every 12 hours [Active]; gabapentin 300 mg Oral cap 1 cap 3 times per day [Active]; Glucagon Emergency Kit (human) 1 mg IM kit 1 mL [Active]; Humalog 100 unit/mL Sub-Q crtg sliding scale ac hs [Active]; Imodium Oral [Active]; isoniazid 300 mg Oral tab once daily [Active]; lactulose 10 gram/15 mL Oral soln 15 mL twice a day [Active]; Lantus 100 unit/mL Sub-Q soln 28 unit nightly [Active]; loratadine 10 mg oral tab 1 tab once daily [Active]; pyridoxine (vitamin B6) 50 mg Oral tab [Active]; Risperdal 1 mg Oral tab 1 tab once daily [Active]; tramadol 50 mg Oral tab 1 tab q6h prn [Active]; tramadol 300 mg Oral Tb24 1 tab once daily [Active]; Spiriva with HandiHaler 18 mcg inhalation CpDv 1 cap once daily [Active]; Trileptal 150 mg Oral tab 1 tabs 2 times per day [Active]; Triumeq 600-50-300 mg Oral tab 1 tab once daily [Active]; Vitamin D Oral 2000 unit daily [Active]; fluticasone-salmeterol inhalation 2 times per day [Active]; - PMHx: 19:15 Angina; Anxiety; ATHEROSCLEROSIS; Bipolar disorder; Chronic pain; MUSCLE WEAKNESS; CAD; jb4 Cellulitis; HIV; GERD; Hyperlipidemia; LACK OF COORDINATION; neuropathy; Pneumonia; pulmonary edema; Schizophrenia; UTI; vitamin d deficiency; Difficulty walking; Diabetes - IDDM; Depression; COPD; - Immunization history:: Adult Immunizations up to date. - Social history:: Smoking status: Patient reports the use of cigarette tobacco products, smokes one-half pack cigarettes per day, Patient/guardian denies using alcohol, street drugs, Patient/guardian denies using The patient lives in an assisted living center. - Family history:: not pertinent. ROS: 21:37 Constitutional: Negative for fever, chills, and weight loss. ma2 21:37 All other systems are negative. Exam: 21:37 Constitutional: This is a well developed, well nourished patient who is awake, alert, ma2 and in no acute distress. Head/Face: Normocephalic, atraumatic. Eyes: Pupils equal round and reactive to light, extra-ocular motions intact. Lids and lashes normal. Conjunctiva and sclera are non-icteric and not injected. Cornea within normal limits. Periorbital areas with no swelling, redness, or edema. ENT: Nares patent. No nasal discharge, no septal abnormalities noted. Tympanic membranes are normal and external auditory canals are clear. Oropharynx with no redness, swelling, or masses, exudates, or evidence of obstruction, uvula midline. Mucous membranes moist. Neck: Trachea midline, no thyromegaly or masses palpated, and no cervical lymphadenopathy. Supple, full range of motion without nuchal rigidity, or vertebral point tenderness. No Meningismus. Chest/axilla: Normal chest wall appearance and motion. Nontender with no deformity. No lesions are appreciated. Cardiovascular: Regular rate and rhythm with a normal S1 and S2. No gallops, murmurs, or rubs. Normal PMI, no JVD. No pulse deficits. Respiratory: Lungs have equal breath sounds bilaterally, clear to auscultation and percussion. No rales, rhonchi or wheezes noted. No increased work of breathing, no retractions or nasal flaring. Abdomen/GI: Soft, non-tender, with normal bowel sounds. No distension or tympany. No guarding or rebound. No evidence of tenderness throughout. Back: No spinal tenderness. No costovertebral tenderness. Full range of motion. Skin: Warm, dry with normal turgor. Normal color with no rashes, no lesions, and no evidence of cellulitis. MS/ Extremity: Pulses equal, no cyanosis. Neurovascular intact. Full, normal range of motion. Neuro: Awake and alert, GCS 15, oriented to person, place, time, and situation. Cranial nerves II-XII grossly intact. Motor strength 5/5 in all extremities. Sensory grossly intact. Cerebellar exam normal. Normal gait. Vital Signs: 19:15 BP 134 / 76; Pulse 78; Resp 18; Temp 98.7(O); Pulse Ox 99% on R/A; Weight 90.54 kg (R); jb4 Height 5 ft. 4 in. (162.56 cm); Pain 10/10; 20:34 BP 106 / 72; Pulse 95; Resp 11; Pulse Ox 96% on R/A; jb4 21:30 BP 125 / 77; Pulse 95; Resp 16; Pulse Ox 99% on R/A; jb4 22:00 BP 114 / 73; Pulse 93; Resp 18; Pulse Ox 93% on R/A; jb4 23:30 BP 108 / 76; Pulse 93; Resp 18; Pulse Ox 90% on R/A; jb4 19:15 Body Mass Index 34.26 (90.54 kg, 162.56 cm) jb4 MDM: 19:20 [facility] 21:37 Differential Diagnosis: emotional response, vasovagal episode, uti. Data reviewed: sc2 vital signs, nurses notes. Counseling: I had a detailed discussion with the patient and/or guardian regarding: the historical points, exam findings, and any diagnostic results supporting the discharge/admit diagnosis, the presence of at least one elevated blood pressure reading (>120/80) during this emergency department visit, the need for outpatient follow up. Response to treatment: the patient's symptoms have resolved after treatment. ED course: seizure is unlikely as lactate is negative. 02/01 19:25 Order name: CBC with Diff; Complete Time: 21:21 sc2 02/01 19:25 Order name: CMP; Complete Time: 21:21 sc2 02/01 19:25 Order name: Magnesium; Complete Time: 21:21 sc2 02/01 19:31 Order name: Lactate; Complete Time: 21:21 sc2 02/01 19:55 Order name: Glucose, Ancillary Testing; Complete Time: 21:21 EDMS 02/01 20:34 Order name: Urine Dipstick--Ancillary (enter results) [facility] 02/01 19:25 Order name: CT C Spine sc2 02/01 19:25 Order name: Chest Single View XRAY; Complete Time: 21:21 sc2 02/01 19:25 Order name: CT Lumbar Spine Wo Con sc2 02/01 19:37 Order name: Head Brain W/Wo Con; Complete Time: 21:21 EDWA 02/01 20:36 Order name: Urine Dipstick-Ancillary; Complete Time: 21:21 [facility] 02/01 20:46 Order name: CT; Complete Time: 21:21 EDMS 02/01 20:47 Order name: CT; Complete Time: 21:21 [facility] 02/01 19:25 Order name: Urine Dipstick-Ancillary (obtain specimen); Complete Time: 20:42 sc2 02/01 19:25 Order name: Seizure Precautions; Complete Time: 19:34 sc2 02/01 19:30 Order name: EKG - Nurse/Tech; Complete Time: 19:34 ma2 Administered Medications: 19:55 Drug: Keppra 1000 mg Route: IV; Rate: calculated rate; Site: right antecubital; jb4 20:42 Follow up: Response: No adverse reaction; IV Status: Completed infusion; IV Intake: jb4 100ml 20:00 Drug: NS 0.9% 1000 ml Route: IV; Rate: 1 bolus; Site: right antecubital; jb4 21:00 Follow up: Response: No adverse reaction; IV Status: Completed infusion; IV Intake: jb4 1000ml 21:25 Drug: Rocephin 1 grams Route: IV; Rate: calculated rate; Site: right antecubital; rr5 21:27 Follow up: Response: No adverse reaction; IV Status: Completed infusion; IV Intake: [id number] Disposition: 02/02/20 21:39 Discharged to Home. Impression: Cystitis, unspecified without hematuria. - Condition is Stable. - Discharge Instructions: Urinary Tract Infection, Adult. - Prescriptions for Cipro 500 mg Oral Tablet - take 1 tablet by ORAL route every 12 hours for 7 days; 14 tablet. - Medication Reconciliation Form, Thank You Letter, Antibiotic Education, Prescription Opioid Use form. - Follow up: Private Physician; When: Tomorrow; Reason: Continuance of care. Signatures: Dispatcher [employer] [facility] Beau Card RN RN jb4 Nida Barry MD MD ma2 Humza Nascimento RN RN rr5 Corrections: (The following items were deleted from the chart) 19:37 19:26 Head Brain W Cont+CT.RAD.BRZ ordered. [facility] 02/02 00:26 02/01 21:39 02/02/2020 21:39 Discharged to Home. Impression: Cystitis, unspecified jb4 without hematuria. Condition is Stable. Prescriptions for Cipro 500 mg Oral Tablet - take 1 tablet by ORAL route every 12 hours for 7 days; 14 tablet. and Forms are Medication Reconciliation Form, Thank You Letter, Antibiotic Education, Prescription Opioid Use. Follow up: Private Physician; When: Tomorrow; Reason: Continuance of care. ma2
[2020-02-03 01:21] VITALS: TEMP 98.7
[2020-02-03 01:26] VITALS: BP 108/76; O2SAT 90
--- NOTE | 2020-02-05 08:56 | EKG ---
Test Date: 2020-02-02 Test Time: 19:31:55 Heating And Refrigeration Inspector: SAMARIA MEASUREMENT RESULTS: Intervals: Rate: 83 MA: 200 QRSD: 86 QT: 376 QTc: 441 [place]: P: 72 MA: 200 QRS: -55 T: 45 INTERPRETIVE STATEMENTS: Sinus rhythm with occasional premature ventricular complexes Left anterior fascicular block Cannot rule out Inferior infarct (masked by fascicular block?), age undetermined Abnormal ECG Compared to ECG 09/21/2019 14:11:17 Ventricular premature complex(es) now present Myocardial infarct finding still present Electronically Signed On 02-05-20 08:53:22 CDT by Garcia Knapp
== END 2020-02-03 00:26 | disposition home or self-care (01) ==
LOC: ER 19:12
DX: N30.90 Cystitis, unspecified without hematuria (principal); F34.1 Dysthymic disorder; E11.9 Type 2 diabetes mellitus without complications; J44.9 Chronic obstructive pulmonary disease, unspecified; F17.210 Nicotine dependence, cigarettes, uncomplicated; Z21 Asymptomatic human immunodeficiency virus [HIV] infection status; Z79.82 Long term (current) use of aspirin; Z79.4 Long term (current) use of insulin; Z88.5 Allergy status to narcotic agent; Z88.0 Allergy status to penicillin; Z88.2 Allergy status to sulfonamides
CPT/HCPCS: 96365; 93005; 85025; 36415; 83735; 82947; 83605; 81003; 80053; 72131; 72125; 71045; 96375; 99284; J1953; J0696; J7030

== ENCOUNTER 2020-07-31 22:40 | Emergency (ER) | payer OTHER ==
--- OUTSIDE RECORDS SUMMARY | 2020-07-31 22:51 | XMS REPORT | Continuity of Care Document ---
:1960 Author Organization [facility] t Address [address] [place] [address] [place] [id number] Care Team Providers Name Role Phone Tai Britt Attending Clinician Unavailable Clarence Mcnamara Attending Clinician Unavailable Husam Vital Attending Clinician [phone] Nkechi Montana Attending Clinician Unavailable Marlee Oconnor Attending Clinician Unavailable Palmer Klein Attending Clinician Unavailable Meka Montana Attending Clinician Unavailable Status, Fax Attending Clinician Unavailable Valentine Lucas Attending Clinician Unavailable Phi Pearce Attending Clinician Unavailable Sisi Obrien Attending Clinician Unavailable Michoacano Attending Clinician Unavailable Rosas Attending Clinician Unavailable Rosas Attending Clinician [phone] Juan A Attending Clinician [phone] Danish Attending Clinician Unavailable Ankit Cooper Attending Clinician Unavailable Bethel Attending Clinician Unavailable Tessa Attending Clinician Unavailable Hu Attending Clinician Unavailable Rakesh Attending Clinician Unavailable Bethel Attending Clinician Unavailable Raymundo Attending Clinician Unavailable Lance Attending Clinician Unavailable Ashutosh Rae Attending Clinician Unavailable Jennifer Attending Clinician [phone] Oliver Attending Clinician Unavailable Ángel Attending Clinician Unavailable Bolivar Attending Clinician Unavailable Michael Attending Clinician [phone] Kian Attending Clinician Unavailable Saman Attending Clinician Unavailable Blaine Attending Clinician Unavailable Tera Attending Clinician Unavailable Conor Attending Clinician [phone] Yoel Attending Clinician Unavailable Marilee Attending Clinician [phone] Leonard Attending Clinician [phone] Gentry Attending Clinician Unavailable Ed Attending Clinician Unavailable Bridger Attending Clinician [phone] Priscilla Attending Clinician Unavailable Rubina Attending Clinician [phone] Kimberly Attending Clinician Unavailable Zahraa Unavailable [phone] Payers Payer Name Policy Type Policy Number Effective Date Expiration Date S ource Sliding Fee - CI [id number] 2019 2020 [facility] 00:00:00 00:00:00 [facility] Health Sliding Fee - 11 [id number] 2019 2019 [facility] 1 00:00:00 00:00:00 [facility] Health Sliding Fee - 11 [id number] 2016 2017 [facility] 1 00:00:00 00:00:00 [facility] Health Sliding Fee - CI [id number] 2016 2017 [facility] 1 00:00:00 00:00:00 [facility] Health Sliding Fee - 11 [id number] 2015 2017 [facility] 1 00:00:00 00:00:00 [facility] Health Problems Condition Condition Condition Status Onset Resolution Last Treating Co mments Source Name Details Category Date Date Treatment Clinician Date NONSPEC Condition Active 2020-02-07 Abel Vital RXN CMI 3-12 10:56:38 Husam Lassiter MSR G-IFN 00:00: ty ANTIG RSPN 00 Health NO ACT TB DIZZINESS Condition Active 2017-10-13 Zahraa Brialison 8 09:19:20 Husam Lassiter 00:00: ty 00 Health Hyperlipid Condition Active 2020-02-07 EstrelladavieAbel hopkins emia 7- 10:44:35 Husam Lassiter 00:00: ty 00 Health Preventive Condition Active 2015-112017-10-13 Bri Vitalalison health 2-06 09:19:20 Husam Lassiter care 00:00: ty 00 Health Screening, Condition Active 2017-10-13 Zahraa Brialison colon 8- 09:19:20 Husam Lassiter cancer 00:00: ty 00 Health Hip Condition Active 2016-07-07 Sarabjit Vital egacy arthralgia 4 08:45:03 Husam dickerson 00:00: ty 00 Health COPD Condition Active 2020-02-07 Sarabjit Vital egacy 4-21 10:44:35 Husam Lassiter 00:00: ty 00 Health Closed Closed Problem Active [facility] neck of of neck of [place] moria metatarsal metatarsal l bone of bone of Outpati right foot right foot en t with with Clinics routine routine healing healing Closed Closed Problem Active [facility] - of base of of base of Me moria fifth fifth l metatarsal metatarsal Ou tpati bone of bone of ent right foot right foot Cl inics at at metaphysea metaphysea l-diaphyse l-diaphyse al al junction, junction, initial initial encounter encounter Pain, Pain, Diagnosis Active [facility] joint[facility] joint[facility] - foot, foot, [facility] Closed Closed Diagnosis Active [facility] fracture fracture [facility] - of base of of base of Me moria fifth fifth l metatarsal metatarsal Ou tpati bone of bone of ent right foot right foot Cl inics at at metaphysea metaphysea l-diaphyse l-diaphyse al al junction junction with with routine routine healing, healing, subsequent subsequent encounter encounter Closed Closed Problem Active [facility] fracture fracture [facility] - of neck of of neck of Me moria metatarsal metatarsal l bone of bone of Outpati right right ent foot, foot, Clinics initial initial encounter encounter Allergies, Adverse Reactions, Alerts Allergy Allergy Status Severity Reaction(s) Onset Inactive Treating Comm ents Source Name Type Date Date Clinician codeine DA Active [facility] 5-23 Clear 00:00: [place] 00 [facility] penicill DA Active [facility] in V - Clear 00:00: [place] 00 [facility] CODEINE Drug Active [facility] allergy Criticali 03-18 Commun i (disorde ty 00:00: ty r) 00 Health PENICILL Drug Active [facility] IN allergy Criticali - Commun i (disorde ty 00:00: ty r) 00 Health penicill Adverse Active Info Not [facility] Reaction Available [facility] Clinics codeine Adverse Active Info Not [facility] Reaction Available [facility] Social History Social Habit Start Date Stop Date Quantity Comments Source time of call 2020-06-16 2020-06-16 06/16/2020 1:54 PM [facility] 13:53:19 13:53:19 Health social history E&M 2020-05-28 2020-05-28 . Not [facility] 09:58:55 09:58:55 homeless. Born in [facility]. City: [place]. State: [place]. Not employed. Gender of partner(s): male. Sexually Active: No. Sex at : female. social history 2020-05-28 2020-05-28 reviewed today [facility] reviewed E&M 09:58:55 09:58:55 Health tobacco use 2020-05-28 2020-05-28 Currently [facility] (cigarettes, 09:58:55 09:58:55 Health cigar, chew, pipe) sexual orientation 2020-02-07 2020-02-07 Heterosexual [facility] 10:26:43 10:26:43 Health drug use, illicit 2020-02-07 2020-02-07 Previously [facility] 10:26:43 10:26:43 Health alcohol use 2020-02-07 2020-02-07 Previously [facility] 10:26:43 10:26:43 Health passive cigarette 2020-02-07 2020-02-07 No [facility] smoke exposure 10:26:43 10:26:43 Health is there any 2020-02-07 2020-02-07 No [facility] nity chance that you 10:26:43 10:26:43 Health could be ? smoking, advice to 2020-02-07 2020-02-07 Yes [facility] quit 10:26:43 10:26:43 Health assessment of 2020-02-07 2020-02-07 Limited [facility] unity health literacy 10:26:43 10:26:43 Health ([facility] 2014 Standards, 3C10) if the patient is 2020-02-07 2020-02-07 No [facility] using/has used a 10:26:43 10:26:43 Health vaping item, Current, Former, Never Used, Not asked cigarettes, number 2017-06-29 2017-06-29 5-6 [facility] smoked per day 08:33:26 08:33:26 Health No 2016-08-31 2016-08-31 [facility] 12:23:52 12:23:52 Health cigar use 2016-08-31 2016-08-31 No [facility] 12:23:52 12:23:52 Health cigarette use 2016-08-31 2016-08-31 Yes [facility] unity 12:23:52 12:23:52 Health What type of drug 2015-03-18 2015-03-18 cocaine [facility] was used 10:06:41 10:06:41 Health sex at 2015-03-18 2015-03-18 female [facility] 10:06:41 10:06:41 Health patient considered 2015-03-18 2015-03-18 No [facility] to be homeless 10:06:41 10:06:41 Health Smoking Status Start Date Stop Date Source Smokes tobacco daily (finding) 2020-05-28 09:58[facility] Medications Ordered Filled Start Stop Current Ordering Indication Dosage Frequency Signature Comments Components Source Medication Medication Date Date Medication? Clinician (SIG) Name Name (BUPROPION Yes 1{Table 2xD 1 By Mouth [facility] HCL) 75 MG 7-11 t} Twice a Commun i TABS 00:00: Day ty Health (TRAMADOL Yes 1{Table 3xD 1 Three [place] [facility] HCL) 50 MG 3-14 t} Times a Commun i TABS 00:00: Day ty Health TRILEPTAL Yes 1{Table 2xD 1 Twice a [facility] (OXCARBAZEP 3-14 t} Day Communi INE) 150 MG 00:00: ty TABS 00 Health RISPERDAL Yes 1{Table 1xD 1 by mouth [facility] (RISPERIDON 3-14 t} once a day Co mmuni E) 1 MG 00:00: ty TABS 00 Health LANTUS Yes 32 [address] [facility] (INSULIN 3-14 Every pm Communi GLARGINE) 00:00: ty 100 UNIT/ML 00 Health SOLN (GABAPENTIN Yes 1{Capsu 3xD 1 by mouth [facility] ) 300 MG 3-14 le} three Communi CAPS 00:00: times a ty 00 day Health FANAPT Yes 1{Table 2xD 1 Twice a Leg [facility] (ILOPERIDON 3-14 t} Day Communi E) 8 MG 00:00: ty TABS 00 Health DEPAKOTE Yes 2 by mouth [facility] (DIVALPROEX 3-14 twice a Commu ni SODIUM) 250 00:00: day ty MG TBEC 00 Health BREO Yes 1 [facility] ELLIPTA 3-14 inhalation Commun i (FLUTICASON 00:00: Every Day t y E 00 Health FUROATE-BAMBI ANTEROL) 100-25 MCG/INH AEPB (ASPIRIN) Yes 1{Table 1xD 1 By Mouth [facility] 325 MG TABS 3-14 t} Every Day Com mychal 00:00: ty 00 Health (MECLIZINE 2018- No 1 by mouth [facility] HCL) 25 MG 06-29 3 times a Com mychal TABS 00:00: 00:00 day as ty 00 :00 needed for Health dizziness (NICOTINE) 2019- No [facility] -7 -02-08 Communi MG/24HR KIT 00:00: 00:00 ty 00 :00 Health (NAPROXEN) 2019- No 1 by mouth [facility] 500 MG TABS 03-24- twice a Comm uni 00:00: 00:00 day as ty 00 :00 needed for Health pain LIPITOR Yes [facility] (ATORVASTAT - Communi IN CALCIUM 00:00: ty TABS) TABS 00 Health BENZTROPINE Yes [facility] MESYLATE -11 Communi (BENZTROPIN 00:00: ty E MESYLATE 00 Health TABS) TABS DULOXETINE Yes [facility] HCL -11 Communi (DULOXETINE 00:00: ty HCL CPEP) 00 Health CPEP OMEPRAZOLE 2019- No [facility] CPDR 03-08 Communi 00:00: 00:00 ty 00 :00 Health SEROQUEL 2019- No [facility] (QUETIAPINE 03-08 Communi FUMARATE 00:00: 00:00 ty TABS) TABS 00 :00 Health VENLAFAXINE 2019- No [facility] HCL 03-08 Communi (VENLAFAXIN 00:00: 00:00 ty E HCL TABS) 00 :00 Health TABS TRIUMEQ Yes Husam One tablet [facility] (ABACAVIR-D 03-18 [place] daily with Communi OLUTEGRAVIR 00:00: or without ty -LAMIVUD) 00 food Health 600-50-300 MG TABS SPIRIVA Yes Husam Inhale 1 [facility] HANDIHALER 4-21 [place] cap Every C ommuni (TIOTROPIUM 00:00: Day ty BROMIDE 00 Health MONOHYDRATE ) 18 MCG CAPS PROAIR HFA Gigi Weiner 2 puffs [facility] (ALBUTEROL 4-21 [place] every 4 - C ommuni SULFATE) 00:00: 6 hours as ty 108 (90 00 needed Health Base) MCG/ACT AERS Lipitor Lipitor Yes Terrence [address] [facility] Gabapentin Gabapentin Yes Terrence [address] [facility] Ultram Ultram Yes [facility] 1 tablet [facility] ProAir HFA ProAir HFA Yes Terrence [address] [facility] Benztropine Benztropine Yes Terrence [address] [facility] Mesylate Mesylate [facility] Vitamin D3 Vitamin D3 Yes Terrence [address] [facility] Depakote Depakote Yes [facility]rence as [facility] Sprinkles Sprinkles [facility] directed [facility] Trileptal Trileptal Yes Terrence [address] [facility] Triumeq Triumeq Yes Terrence [address] [facility] Milk of Milk of Yes Terrence [address] [facility] Magnesia Magnesia [facility]errero needed [facility] Aspirin Aspirin Yes Terrence [address] [facility] Tramadol Tramadol Yes Terrence [address] HCl HCl [facility] as needed [facility] Butrans Butrans Yes Terrence [address] [facility] skin [facility] Risperdal Risperdal Yes Terrence [address] [facility] Spiriva Spiriva Yes Terrence [address] HandiHaler HandiHaler [facility] Lantus Lantus Yes Terrence as [facility] Cymbalta Cyalta Yes Terrence [address] [facility] Fanapt Fanapt Yes [facility] 1 tablet [facility] Immunizations Ordered Immunization Filled Immunization Date Status Commen ts Source Name Name influenza, 2019-09-28 Completed [facility] unspecified 00:00:00 Health formulation flu vax 2017-09-07 Completed [facility] 09:54:47 Health hepbvax#3 2017-04-19 Completed [facility] 10:19:07 Health hepbvax#2 2016-11-02 Completed [facility] 08:40:55 Health flu vax 2016-08-28 Completed [facility] 08:45:22 Health hepbvax#1 2016-07-07 Completed [facility] 08:32:30 Health pneumovax 2016-07-07 Completed [facility] 08:32:30 Health pneumped1 2015-03-14 Completed [facility] 11:24:41 Health flu vax 2014-07-29 Completed [facility] 11:24:11 Health Vital Signs Vital Name Observation Time Observation Value Comments Source oxygen saturation, 2020-05-28 09:58:55 95 % [facility] oximetry Health blood pressure, 2020-05-28 09:58:55 70 mm[Hg] [facility] diastolic Health blood pressure, 2020-05-28 09:58:55 125 mm[Hg] [facility] systolic Health pulse rate 2020-05-28 09:58:55 89 [facility] temperature E&M 2020-05-28 09:58:55 98.2 [degF] [facility] Health height in 2020-05-28 09:58:55 157.48 cm [facility] C ommunity centimeters E&M Health oxygen saturation, 2020-02-07 10:26:43 90 % [facility] oximetry Health blood pressure, 2020-02-07 10:26:43 71 mm[Hg] [facility] diastolic Health blood pressure, 2020-02-07 10:26:43 101 mm[Hg] [facility] systolic Health pulse rate 2020-02-07 10:26:43 112 /min [facility] temperature site 2020-02-07 10:26:43 oral [facility] Health temperature E&M 2020-02-07 10:26:43 98.7 [degF] [facility] weight E&M 2020-02-07 10:26:43 193 [facility]lb_av[facility] weight in kilograms 2020-02-07 10:26:43 87.73 kg L [facility] E& Health height in 2020-02-07 10:26:43 157.48 [facility] centimeters E&M Health oxygen saturation, 2019-10-04 07:16:02 98 % [facility] oximetry Health blood pressure, 2019-10-04 07:16:02 68 mm[Hg] [facility] diastolic Health blood pressure, 2019-10-04 07:16:02 103 mm[Hg] [facility] systolic Health pulse rate 2019-10-04 07:16:02 81 /min [facility] temperature E&M 2019-10-04 07:16:02 98.6 [degF] [facility] Health weight E&M 2019-10-04 07:16:02 169.60 [lb_av] [facility] weight in kilograms 2019-10-04 07:16:02 77.09 kg L [facility] E& Health temperature site 2019-10-04 07:16:02 oral [facility] Health height in 2019-10-04 07:16:02 157.48 [facility] centimeters E&M Health oxygen saturation, 2019-06-07 09:23:42 89 % [facility] oximetry Health pulse rate 2019-06-07 09:23:42 95 /min [facility] temperature site 2019-06-07 09:23:42 oral [facility] Health temperature E&M 2019-06-07 09:23:42 97.3 [degF] [facility] Health blood pressure, 2019-06-07 09:23:42 60 mm[Hg] [facility] diastolic Health blood pressure, 2019-06-07 09:23:42 92 mm[Hg] [facility] systolic Health weight E&M 2019-06-07 09:23:42 180 [lb_av] [facility] weight in kilograms 2019-06-07 09:23:42 81.82 kg L [facility] E& Health height in 2019-06-07 09:23:42 157.48 [facility] centimeters E&M Health blood pressure, 2019-02-08 07:52:46 80 mm[Hg] [facility] diastolic Health blood pressure, 2019-02-08 07:52:46 110 mm[Hg] [facility] systolic Health oxygen saturation, 2019-02-08 07:52:46 89 % [facility] oximetry Health pulse rate 2019-02-08 07:52:46 126 /min [facility] temperature E&M 2019-02-08 07:52:46 98.6 [degF] [facility] Health weight E&M 2019-02-08 07:52:46 189.13 [lb_av] [facility] weight in kilograms 2019-02-08 07:52:46 85.97 kg L [facility] E& Health temperature site 2019-02-08 07:52:46 oral [facility] Health height in 2019-02-08 07:52:46 157.48 [facility] centimeters E&M Health oxygen saturation, 2018-09-26 07:50:53 98 % [facility] oximetry Health respiratory rate E&M 2018-09-26 07:50:53 16 /min [facility] Health pulse rate 2018-09-26 07:50:53 78 /min [facility] temperature E&M 2018-09-26 07:50:53 98.2 [degF] [facility] Health blood pressure, 2018-09-26 07:50:53 73 mm[Hg] [facility] diastolic Health blood pressure, 2018-09-26 07:50:53 96 mm[Hg] [facility] systolic Health weight E&M 2018-09-26 07:50:53 188.25 [lb_av] [facility] Health weight in kilograms 2018-09-26 07:50:53 85.57 kg L [facility] E& Health temperature site 2018-09-26 07:50:53 oral [facility] Health height in 2018-09-26 07:50:53 157.48 cm [facility] C ommunity centimeters E&M Health pulse rate 2018-02-21 08:03:52 120 /min [facility] blood pressure, 2018-02-21 08:03:52 79 mm[Hg] [facility] diastolic Health blood pressure, 2018-02-21 08:03:52 120 mm[Hg] [facility] systolic Health respiratory rate E&M 2018-02-21 08:03:52 20 /min [facility] oxygen saturation, 2018-02-21 08:03:52 99 % [facility] temperature site 2018-02-21 08:03:52 tympanic [facility] Health temperature E&M 2018-02-21 08:03:52 97.7 [degF] [facility] Health weight E&M 2018-02-21 08:03:52 177 [lb_av] [facility] Health weight in kilograms 2018-02-21 08:03:52 80.45 kg L [facility] E& Health height in 2018-02-21 08:03:52 157.48 [facility] E&M Health blood pressure, 2017-10-13 08:35:18 74 mm[Hg] [facility] diastolic Health blood pressure, 2017-10-13 08:35:18 105 mm[Hg] [facility] systolic Health pulse rate 2017-10-13 08:35:18 104 /min [facility] Health respiratory rate E&M 2017-10-13 08:35:18 16 /min [facility] oxygen saturation, 2017-10-13 08:35:18 96 % [facility] oximetry Health temperature site 2017-10-13 08:35:18 tympanic [facility] Health temperature E&M 2017-10-13 08:35:18 99 [degF] [facility] Health weight E&M 2017-10-13 08:35:18 175 [lb_av] [facility] Health weight in kilograms 2017-10-13 08:35:18 79.55 kg L [facility] E& Health height in 2017-10-13 08:35:18 157.[facility]M Health blood pressure, 2017-06-29 08:33:26 50 mm[Hg] [facility] diastolic Health blood pressure, 2017-06-29 08:33:26 86 mm[Hg] [facility] systolic Health pulse rate 2017-06-29 08:33:26 100 /[facility] respiratory rate E&M 2017-06-29 08:33:26 24 /min [facility] Health oxygen saturation, 2017-06-29 08:33:26 97 % [facility] 2017-06-29 08:33:26 tympanic [facility] Health temperature E&M 2017-06-29 08:33:26 98.2 [degF] [facility] Health weight E&M 2017-06-29 08:33:26 169 [lb_av] [facility] weight in kilograms 2017-06-29 08:33:26 76.82 kg L [facility] E& Health height in 2017-06-29 08:33:26 157.48 [facility] E&M Health blood pressure, 2017-06-17 07:40:48 68 mm[Hg] [facility] diastolic Health blood pressure, 2017-06-17 07:40:48 97 mm[Hg] [facility] systolic Health pulse rate 2017-06-17 07:40:48 106 /min [facility] Health oxygen saturation, 2017-06-17 07:40:48 98 % [facility] temperature E&M 2017-06-17 07:40:48 97.5 [degF] [facility] Health weight E&M 2017-06-17 07:40:48 170.13 [lb_av] [facility] weight in kilograms 2017-06-17 07:40:48 77.33 kg L [facility] E&M Health temperature site 2017-06-17 07:40:48 tympanic [facility] Health height in 2017-06-17 07:40:48 157.48 [facility] E&M Health blood pressure, 2017-04-19 10:19:07 60 mm[Hg] [facility] diastolic Health blood pressure, 2017-04-19 10:19:07 108 mm[Hg] [facility] systolic Health pulse rate 2017-04-19 10:19:07 75 /min [facility] respiratory rate E&M 2017-04-19 10:19:07 24 /min [facility] temperature site 2017-04-19 10:19:07 tympanic [facility] Health oxygen saturation, 2017-04-19 10:19:07 96 % [facility] Health temperature E&M 2017-04-19 10:19:07 99.1 [degF] [facility] Health weight E&M 2017-04-19 10:19:07 172 [lb_av] [facility] weight in kilograms 2017-04-19 10:19:07 78.18 kg L [facility] E& Health height in 2017-04-19 10:19:07 157.48 [facility] E&M Health blood pressure, 2016-11-02 08:40:55 79 mm[Hg] [facility] diastolic Health blood pressure, 2016-11-02 08:40:55 113 mm[Hg] [facility] systolic Health pulse rate 2016-11-02 08:40:55 101 /[facility] 2016-11-02 08:40:55 tympanic [facility] Health oxygen saturation, 2016-11-02 08:40:55 97 % [facility] E&M 2016-11-02 08:40:55 97.6 [degF] [facility] Health weight E&M 2016-11-02 08:40:55 180.60 [lb_av] [facility] Health weight in kilograms 2016-11-02 08:40:55 82.09 kg L [facility] E& Health height in 2016-11-02 08:40:55 157.48 cm [facility] ommunity centimeters E&M Health oxygen saturation, 2016-07-07 08:32:30 82 % [facility] blood pressure, 2016-07-07 08:32:30 83 mm[Hg] [facility] diastolic Health blood pressure, 2016-07-07 08:32:30 119 mm[Hg] [facility] systolic Health pulse rate 2016-07-07 08:32:30 82 /[facility] temperature site 2016-07-07 08:32:30 tympanic [facility] Health temperature E&M 2016-07-07 08:32:30 96.4 [degF] [facility] weight E&M 2016-07-07 08:32:30 170.40 [lb_av] [facility] Health weight in kilograms 2016-07-07 08:32:30 77.45 kg L [facility] E& Health height in 2016-07-07 08:32:30 157.48 cm [facility]M [facility] blood pressure, 2016-03-24 15:04:18 74 mm[Hg] Legac [facility] diastolic Health blood pressure, 2016-03-24 15:04:18 107 mm[Hg] Legac y [facility] systolic Health pulse rate 2016-03-24 15:04:18 92 /min [facility] site 2016-03-24 15:04:18 tympanic [facility] Health oxygen saturation, 2016-03-24 15:04:18 94 % [facility] oximetry Health temperature E&M 2016-03-24 15:04:18 97.2 [degF] Legac [facility] Health weight E&M 2016-03-24 15:04:18 147.70 [lb_av] [facility] Health weight in kilograms 2016-03-24 15:04:18 67.14 kg L [facility] E& Health height in 2016-03-24 15:04:18 157.48 cm [facility] ommunity centimeters E&M Health pulse rate 2016-03-08 09:29:07 91 /min [facility] blood pressure, 2016-03-08 09:29:07 76 mm[Hg] Legac y [facility] diastolic Health blood pressure, 2016-03-08 09:29:07 112 mm[Hg] Legac [facility] systolic Health oxygen saturation, 2016-03-08 09:29:07 94 % [facility] temperature site 2016-03-08 09:29:07 tympanic [facility] Health temperature E&M 2016-03-08 09:29:07 96.9 [degF] [facility] weight E&M 2016-03-08 09:29:07 137 [lb_av] [facility] Health weight in kilograms 2016-03-08 09:29:07 62.27 kg L [facility] E& Health height in 2016-03-08 09:29:07 157.48 cm [facility]ity centimeters [facility]M [facility] oxygen saturation, 2015-07-01 10:02:02 94 % [facility] oximetry Health blood pressure, 2015-07-01 10:02:02 64 mm[Hg] Legac y [facility] diastolic Health blood pressure, 2015-07-01 10:02:02 89 mm[Hg] Legac y [facility] systolic Health pulse rate 2015-07-01 10:02:02 103 /min [facility] temperature site 2015-07-01 10:02:02 oral [facility] temperature E&M 2015-07-01 10:02:02 98.5 [degF] Legac y [facility] Health weight E&M 2015-07-01 10:02:02 127.40 [lb_av] [facility] in [facility] 2015-07-01 10:02:02 57.91 kg L [facility] E& Health height in 2015-07-01 10:02:02 157.48 cm [facility]munity centimeters [facility]M Health blood pressure, 2015-03-18 10:06:41 62 mm[Hg] Legac y [facility] diastolic Health blood pressure, 2015-03-18 10:06:41 86 mm[Hg] Legac y [facility] systolic Health temperature E&M 2015-03-18 10:06:41 98.8 [degF] Legac y [facility] Health height in 2015-03-18 10:06:41 157.48 cm [facility]munity centimeters [facility]M [facility] oxygen saturation, 2015-03-18 10:06:41 93 % [facility] oximetry Health pulse rate 2015-03-18 10:06:41 111 /min [facility] Health weight E&M 2015-03-18 10:06:41 137 [lb_av] [facility] Health weight in kilograms 2015-03-18 10:06:41 62.27 [facility] temperature site 2015-03-18 10:06:41 temporal Gold bermeo [facility] Health Procedures Procedure Date / Time Performing Clinician Source Performed Primary Care Medical 2016-03-08 10:18:09 Dilma Hunt Abel [facility] Case Management [facility] Primary Care Service 2015-07-02 08:59:43 Zee Rodriguez [facility] Primary Care - 2015-03-21 13:05:22 Zee Rodriguez Co mmunity Assesment-Brief - SLW [facility] Primary Care Service 2015-03-21 13:05:22 Zee Rodriguez [facility] Venipuncture 2015-03-03 09:52:50 Elodia Cespedes Formerly [facility] Encounters Start End Encounter Admission Attending Care Care Encounter Source Date/Time Date/Time Type Type Clinicians Facility Department ID 2020-07-01 2020-07-01 [facility] Legacy 00:00:00 00:00:00 Visit Teresa [id number] Com mychal Lujan [id number] [facility] 2020-06-16 2020-06-16 Office VERO Mcnamara Encounter/ Legacy 00:00:00 00:00:00 Visit Clarence [id number] Com mychal [id number] Health 2020-05-28 2020-05-28 Office VERO Vital Encounter / Legacy 00:00:00 00:00:00 Visit Husam [id number] Com mychal [id number] [facility] 2020-05-28 2020-05-28 Office Husam Vital [facility] Enco unter/ Legacy 00:00:00 00:00:00 Visit Nkechi [place] [id number] Communi [id number] [facility] 2020-05-28 2020-05-28 Office VERO Vital Encounter / Legacy 00:00:00 00:00:00 Visit Husam [id number] Com mychal [id number] [facility] 2020-02-07 2020-02-07 Office VERO Vital Encounter / Legacy 00:00:00 00:00:00 Visit Husam [id number] Com mychal [id number] [facility] 2020-02-07 2020-02-07 Office Husam Vital OPHELIAFransisca OPHELIA Enco unter/ Legacy 00:00:00 00:00:00 Visit Tai Britt [id number] Communi 049691 ty Health 2020-02-07 2020-02-07 Office Zahraa OPHELIAFransisca LC Encounter / Legacy 00:00:00 00:00:00 Visit Husam [id number] Com mychal 647495 ty Health 2020-02-07 2020-02-07 Office Zahraa OPHELIAFransisca LC Encounter / Legacy 00:00:00 00:00:00 Visit Husam [id number] Com mychal 506694 ty Health 2019-10-10 2019-10-10 Office NanVERO Encounter/ Legacy 00:00:00 00:00:00 Visit Nkechi [id number] Com mychal 578259 ty Health 2019-10-04 2019-10-04 Office Zahraa OPHELIAFransisca VERO Encounter / Legacy 00:00:00 00:00:00 Visit Husam [id number] Com mychal 156363 ty Health 2019-10-04 2019-10-04 Office Zahraa Husam OPHELIAFransisca OPHELIA Enco unter/ Legacy 00:00:00 00:00:00 Visit Nkechi [place] [id number] Communi 915497 ty Health 2019-10-04 2019-10-04 Office ZahraaOPHELIAFransisca LC Encounter / Legacy 00:00:00 00:00:00 Visit Husam [id number] Com mychal 775464 ty Health 2019-10-04 2019-10-04 Office Zahraa OPHELIAFransisca LC Encounter / Legacy 00:00:00 00:00:00 Visit Husam [id number] Com mychal 869775 ty Health 2019-10-04 2019-10-04 Office Zahraa Husam VERO JACINTO Enco unter/ Legacy 00:00:00 00:00:00 Visit Nkechi [place] [id number] Communi Tai Britt 040236 ty Health 2019-10-02 2019-10-02 Office OconnorVEROH Encount er/ Legacy 00:00:00 00:00:00 Visit Marlee [id number] Com mychal 098844 ty Health 2019-06-07 2019-06-07 Office EstrellaVERO morales Encounter / Legacy 00:00:00 00:00:00 Visit Husam [id number] Com mychal 184026 ty Health 2019-06-07 2019-06-07 Office VERO Vital Encounter / Legacy 00:00:00 00:00:00 Visit Husam [id number] Com mychal 128150 ty Health 2019-06-07 2019-06-07 Office VERO Vital Encounter / Legacy 00:00:00 00:00:00 Visit Husam [id number] Com mychal 957640 ty Health 2019-06-07 2019-06-07 Office [facility]/ Legacy 00:00:00 00:00:00 Visit Palmer [id number] Com mychal 141528 ty Health 2019-06-07 2019-06-07 Office VERO Vital Encounter / Legacy 00:00:00 00:00:00 Visit Husam [id number] Com mychal 906788 ty Health 2019-06-07 2019-06-07 Office [facility] unter/ Legacy 00:00:00 00:00:00 Visit Nkechi [place] [id number] 8029 Communi 125306 ty Health 2019-06-06 2019-06-06 Office VERO [place] Encounter/ Legacy 00:00:00 00:00:00 Visit Meka [id number] Com mychal 504592 ty Health 2019-04-19 2019-04-19 Office Status, [facility] Legacy 00:00:00 00:00:00 Visit [id number] Com mychal 320276 Health 2019-02-22 2019-02-22 [facility] [id number] 14:00:00 14:00:00 [facility] Clin[facility] 2019-02-08 2019-02-08 Office VERO Vital Encounter / Legacy 00:00:00 00:00:00 Visit Husam [id number] Com mychal 522878 ty Health 2019-02-08 2019-02-08 Office Nemdaviek, VERO JACINTO Encounter / Legacy 00:00:00 00:00:00 Visit Husam [id number] Com mychal 712838 ty Health 2019-02-08 2019-02-08 Office Nemandrew, VERO JACINTO Encounter / Legacy 00:00:00 00:00:00 Visit Husam [id number] Com mychal 432804 ty Health 2019-02-08 2019-02-08 Office Nemdaviek, VERO JACINTO Encounter / Legacy 00:00:00 00:00:00 Visit Husam [id number] Com mychal 431691 ty Health 2019-02-08 2019-02-08 Office Nemandrew, OPHELIA OPHELIA Encounter / Legacy 00:00:00 00:00:00 Visit Husam [id number] Com mychal 659401 ty Health 2019-02-08 2019-02-08 Office ZahraaHusam OPHELIA Enco unter/ Legacy 00:00:00 00:00:00 Visit Valentine Lucas8 887221 Communi 212929 ty Health 2019-02-05 2019-02-05 Office Oconnor, OPHELIA OPHELIA Encount er/ Legacy 00:00:00 00:00:00 Visit Marlee [id number] Com mychal 376428 ty Health 2019-02-02 2019-02-02 Office Oconnor, [facility] LC Encount er/ Legacy 00:00:00 00:00:00 Visit Marlee [id number] Com mychal 734908 ty Health 2018-12-29 2018-12-29 Office VERO Oconnor Encount er/ Legacy 00:00:00 00:00:00 Visit Marlee [id number] Com mychal 603622 ty Health 2018-12-25 2018-12-25 Office Marlee Oconnor Encounter/ Legacy 00:00:00 00:00:00 Visit Phi Pearce [id number] Communi 290374 ty Health 2018-12-25 2018-12-25 Office VERO Vital Encounter / Legacy 00:00:00 00:00:00 Visit Husam [id number] Com mychal 187971 ty Health 2018-12-22 2018-12-22 Office ElvinVEROH Encount er/ Legacy 00:00:00 00:00:00 Visit Marlee [id number] Com mychal 154470 ty Health 2018-09-28 2018-09-28 Office Zahraa, VERO JACINTOH Encounter / Legacy 00:00:00 00:00:00 Visit Husam [id number] Com mychal 970086 ty Health 2018-09-28 2018-09-28 Office Status, Fax OPHELIAH [facility] Encoun ter/ Legacy 00:00:00 00:00:00 Visit [id number] Com mychal 861424 ty Health 2018-09-26 2018-09-26 Office ZahraaVEROH Encounter / Legacy 00:00:00 00:00:00 Visit Husam [id number] Com mychal 849447 ty Health 2018-09-26 2018-09-26 Office ZahraaVEROH Encounter / Legacy 00:00:00 00:00:00 Visit Husam [id number] Com mychal 975134 ty Health 2018-09-26 2018-09-26 Office Zahraa, OPHELIAFransisca [facility] Encounter / Legacy 00:00:00 00:00:00 Visit Husam [id number] Com mychal 114014 ty Health 2018-09-26 2018-09-26 Office Nemandrew, VERO JACINTOH Encounter / Legacy 00:00:00 00:00:00 Visit Husam [id number] Com mychal 236183 ty Health 2018-09-26 2018-09-26 Office ZahraaHusamH Enco unter/ Legacy 00:00:00 00:00:00 [facility] Sisi [facility] [id number] [facility] 0[facility] 2018-09-25 2018-09-25 Office Zahraa, VERO [facility] Encounter / Legacy 00:00:00 00:00:00 Visit Husam [id number] Com mychal 565070 ty Health 2018-09-23 2018-09-23 Office ElvinVEROH Encount er/ Legacy 00:00:00 00:00:00 Visit Marlee [id number] Com mychal 813336 ty Health 2018-09-07 2018-09-07 Office Elvin Marlee [facility] Encounter/ Legacy 00:00:00 00:00:00 Visit Ríos, Luci [id number] 2405 Communi 896634 ty Health 2018-05-05 2018-05-05 Office VERO Rosas Encoun ter/ Legacy 00:00:00 00:00:00 Visit Marcelle [id number] Com mychal 384605 ty Health 2018-02-21 2018-02-21 Office Status, Fax [facility] Encoun ter/ Legacy 00:00:00 00:00:00 Visit [id number] Com mychal 379457 ty Health 2018-02-21 2018-02-21 Office Status, Fax [facility] Encoun ter/ Legacy 00:00:00 00:00:00 Visit [id number] Com mychal 537972 ty Health 2018-02-21 2018-02-21 Office Status, [facility] Legacy 00:00:00 00:00:00 Visit [id number] Com mychal 526918 ty Health 2018-02-21 2018-02-21 Office [facility] / Legacy 00:00:00 00:00:00 Visit Husam [id number] Com mychal 949602 ty Health 2018-02-21 2018-02-21 Office VERO Vital Encounter / Legacy 00:00:00 00:00:00 Visit Husam [id number] Com mychal 707266 ty Health 2018-02-21 2018-02-21 Office [facility]/ Legacy 00:00:00 00:00:00 Visit Nkechi [place] [id number] 4960 Communi Ema Pillai 78765 0 ty Juan A Molly Health 2018-02-14 2018-02-14 Office Kori [facility] LC Encoun ter/ Legacy 00:00:00 00:00:00 Visit jaron [id number] Com mychal Choice 877275 ty Health 2018-02-08 2018-02-08 Office VERO Rosas Encoun ter/ Legacy 00:00:00 00:00:00 Visit Marcelle [id number] Com mychal 496226 ty Health 2018-02-07 2018-02-07 Office VERO Vital Encounter / Legacy 00:00:00 00:00:00 Visit Husam [id number] Com mychal 612444 ty Health 2018-02-07 2018-02-07 Office Husam Vital Enco unter/ Legacy 00:00:00 00:00:00 Visit Leigha Dumont [id number] Communi 545171 ty Health 2018-01-25 2018-01-25 Office VERO Hugo Encounter/ Legacy 00:00:00 00:00:00 Visit Verito [id number] C ommuni 266324 ty Health 2018-01-25 2018-01-25 Office VERO Zarate Encounte r/ Legacy 00:00:00 00:00:00 Visit Vanessa [id number] Com mychal 996796 ty Health 2018-01-17 2018-01-17 Office VERO Vital Encounter / Legacy 00:00:00 00:00:00 Visit Husam [id number] Com mychal 515174 ty Health 2018-01-17 2018-01-17 Office Jose Lui OPHELIA En counter/ Legacy 00:00:00 00:00:00 Visit Marcelle Rosas [id number] Communi 037266 ty Health 2017-10-26 2017-10-26 Office VERO Rosas Encoun ter/ Legacy 00:00:00 00:00:00 Visit Marcelle [id number] Com mychal 249001 ty Health 2017-10-25 2017-10-25 Office VERO Rosas Encoun ter/ Legacy 00:00:00 00:00:00 Visit Marcelle [id number] Com mychal 299121 ty Health 2017-10-24 2017-10-24 Office VERO Cameron Encounter / Legacy 00:00:00 00:00:00 Visit Angeles [id number] Com mychal 699587 ty Health 2017-10-13 2017-10-13 Office VERO Vital Encounter / Legacy 00:00:00 00:00:00 Visit Husam [id number] Com mychal 413800 ty Health 2017-10-13 2017-10-13 Office Bethel VERO PHAM Encounter/ Legacy 00:00:00 00:00:00 Visit Luann [id number] Co mmuni 342676 ty Health 2017-10-13 2017-10-13 Office Zahraa OPHELIAFransisca VERO Encounter / Legacy 00:00:00 00:00:00 Visit Husam [id number] Com mychal 371705 ty Health 2017-10-13 2017-10-13 Office Zahraa OPHELIAFransisca OPHELIA Encounter / Legacy 00:00:00 00:00:00 Visit Husam [id number] Com mychal 636312 ty Health 2017-10-13 2017-10-13 Office Zahraa Husam VERO JACINTO Enco unter/ Legacy 00:00:00 00:00:00 Visit Nkechi [place] [id number] [place] Griffith 527088 ty [facility] 2017-10-12 2017-10-12 [facility]/ Legacy 00:00:00 00:00:00 Visit jaron [id number] Com mychal Choice 519571 ty Health 2017-07-05 2017-07-05 Office Husam Vital OPHELIAFransisca OPHELIA Enco unter/ Legacy 00:00:00 00:00:00 Visit Ema Pillai [id number] [place] Griffith [id number] [facility] Amanda Fonseca 2017-06-29 2017-06-29 Office Zahraa Husam VERO JACINTO Enco unter/ Legacy 00:00:00 00:00:00 Visit Molly Velazco [id number] Communi 242987 ty Health 2017-06-29 2017-06-29 Office AntonioVERO hopkins Encounter / Legacy 00:00:00 00:00:00 Visit Husam [id number] Com mychal 246378 ty Health 2017-06-29 2017-06-29 Office ZahraaVERO Encounter / Legacy 00:00:00 00:00:00 Visit Husam [id number] Com mychal 142680 ty Health 2017-06-29 2017-06-29 Office ZahraaHusam Enco unter/ Legacy 00:00:00 00:00:00 Visit Nkechi [place] [id number] Communi 249781 ty Health 2017-06-28 2017-06-28 Office Kori OPHELIA OPHELIA Encoun ter/ Legacy 00:00:00 00:00:00 Visit jaron [id number] Com mychal Choice 091157 ty Health 2017-06-20 2017-06-20 Office EstrellaVERO morales Encounter / Legacy 00:00:00 00:00:00 Visit Husam [id number] Com mychal 461661 ty Health 2017-06-17 2017-06-17 Office VERO Vital Encounter / Legacy 00:00:00 00:00:00 Visit Husam [id number] Com mychal 715525 ty Health 2017-06-17 2017-06-17 Office EstrellaVERO morales Encounter / Legacy 00:00:00 00:00:00 Visit Husam [id number] Com mychal 589321 ty Health 2017-06-17 2017-06-17 Office ZahraaHusam OPHELIA Enco unter/ Legacy 00:00:00 00:00:00 Visit Iesha Lucas [id number] Communi 842129 ty Health 2017-06-14 2017-06-14 Office CarinaRonda JACINTO OPHELIA Encoun ter/ Legacy 00:00:00 00:00:00 Visit jaron [id number] Com mychal Choice 877892 ty Health 2017-06-09 2017-06-09 Office VERO Rosas Encoun ter/ Legacy 00:00:00 00:00:00 Visit Marcelle [id number] Com mychal 745570 ty Health 2017-06-08 2017-06-08 Office VERO Rosas Encoun ter/ Legacy 00:00:00 00:00:00 Visit Marcelle [id number] Com mychal 089957 ty Health 2017-05-30 2017-05-30 Office Ashutosh JACINTO Encounter/ Legacy 00:00:00 00:00:00 Visit Kyra [id number] Co obed Morocho 290784 ty Health 2017-05-30 2017-05-30 Office Ashutosh JACINTOH Encounter/ Legacy 00:00:00 00:00:00 Visit Kyra [id number] Co obed Morocho [id number] [facility] 2017-05-27 2017-05-27 Office VERO Vital Encounter / Legacy 00:00:00 00:00:00 Visit Husam [id number] Com mychal 001068 Health 2017-05-26 2017-05-26 Office Marcelle Rosas [facility] Encounter/ Legacy 00:00:00 00:00:00 Visit Beau Rodriguez [id number] Communi 489384 Health 2017-05-25 2017-05-25 Office VERO Vital Encounter / Legacy 00:00:00 00:00:00 Visit Husam [id number] Com mychal [id number] [facility] 2017-05-25 2017-05-25 Office VERO Vital Encounter / Legacy 00:00:00 00:00:00 Visit Husam [id number] Com mychal [id number] [facility] 2017-05-25 2017-05-25 Office VERO Rosas Encoun ter/ Legacy 00:00:00 00:00:00 Visit Marcelle [id number] Com mychal [id number] [facility] 2017-05-24 2017-05-24 Office Shaye Boyd [facility] Enco unter/ Legacy 00:00:00 00:00:00 Visit Polina Neal [id number] Charisma Lugo [id number] Jennifer Beau [facility] 2017-05-18 2017-05-18 Office Ashutosh JACINTO [facility] Encounter/ Legacy 00:00:00 00:00:00 Visit Kyra [id number] Co obed Morocho [id number] [facility] 2017-05-13 2017-05-13 Office Husam Vital Enco unter/ Legacy 00:00:00 00:00:00 Visit Zee Rodriguez [id number] Cara Ray 032207 [facility] 2017-04-22 2017-04-22 Office Bailee Cruz [facility] Encounter/ Legacy 00:00:00 00:00:00 Visit Baltazar Davison [id number] 7577 Communi 381965 ty Health 2017-04-22 2017-04-22 Office Saman OPHELIAFransisca [facility] Encounter / Legacy 00:00:00 00:00:00 Visit Baltazar [id number] Com mychal 614986 ty Health 2017-04-19 2017-04-19 Office Zahraa OPHELIAFransisca [facility] Encounter / Legacy 00:00:00 00:00:00 Visit Husam [id number] Com mychal 046876 ty Health 2017-04-19 2017-04-19 Office Zahraa OPHELIAFransisca [facility] Encounter / Legacy 00:00:00 00:00:00 Visit Husam [id number] Com mychal 196327 ty Health 2017-04-19 2017-04-19 Office Zahraa Husam OPHELIAFransisca OPHELIAH Enco unter/ Legacy 00:00:00 00:00:00 Visit Nan Nkechi [id number] Communi 257956 ty Health 2017-04-18 2017-04-18 Office [facility] OPHELIAFransisca L[facility] Encoun ter/ Legacy 00:00:00 00:00:00 Visit jaron [id number] Com mychal Choice 648689 ty Health 2017-03-11 2017-03-11 Office Zahraa Husam VERO JACINTOH Enco unter/ Legacy 00:00:00 00:00:00 Visit Polina Neal [id number] Communi 152664 ty Health 2017-03-01 2017-03-01 Office ZahraaVERO Encounter / Legacy 00:00:00 00:00:00 Visit Husam [id number] Com mychal 145089 ty Health 2017-02-17 2017-02-17 Office Blaine VERO [facility] Encounter/ Legacy 00:00:00 00:00:00 Visit Malu [id number] C ommuni 742291 ty Health 2016-12-09 2016-12-09 Office Blaine VERO [facility] Encounter/ Legacy 00:00:00 00:00:00 Visit Malu [id number] C ommuni 857520 ty Health 2016-11-02 2016-11-02 Office ZahraaVERO [facility] Encounter / Legacy 00:00:00 00:00:00 Visit Husam [id number] Com mychal 847049 ty Health 2016-11-02 2016-11-02 Office [facility] / Legacy 00:00:00 00:00:00 Visit Husam [id number] Com mychal 410444 ty Health 2016-11-02 2016-11-02 Office Husam Vital OPHELIA OPHELIA Enco unter/ Legacy 00:00:00 00:00:00 Visit Nkechi [place] [id number] 9441 Communi 893851 ty Health 2016-10-19 2016-10-19 Office [facility]a [facility] / Legacy 00:00:00 00:00:00 Visit Husam [id number] Com mychal 497573 ty Health 2016-10-19 2016-10-19 Office Zahraa VERO [facility] Encounter / Legacy 00:00:00 00:00:00 Visit Husam [id number] Com mychal 420724 ty Health 2016-09-21 2016-09-21 Office Tera [facility] En[facility]/ Legacy 00:00:00 00:00:00 Visit Tara [id number] Com mychal 342539 ty Health 2016-08-31 2016-08-31 Office Blaine [facility] En[facility]/ Legacy 00:00:00 00:00:00 Visit Malu [id number] C ommuni 322109 ty Health 2016-07-09 2016-07-09 Office Status, Fax [facility] Encoun ter/ Legacy 00:00:00 00:00:00 Visit [id number] Com mychal 387313 ty Health 2016-07-09 2016-07-09 Office Status, Fax [facility] Encoun ter/ Legacy 00:00:00 00:00:00 Visit [id number] Com mychal 177021 ty Health 2016-07-07 2016-07-07 Office Nemandrew VERO [facility] Encounter / Legacy 00:00:00 00:00:00 Visit Husam [id number] Com mychal 504542 ty Health 2016-07-07 2016-07-07 Office Zahraa VERO [facility] Encounter / Legacy 00:00:00 00:00:00 Visit Husam [id number] Com mychal 039619 ty Health 2016-07-07 2016-07-07 Office VERO Vital LC Encounter / Legacy 00:00:00 00:00:00 Visit Husam [id number] Com mychal 513768 ty Health 2016-07-07 2016-07-07 Office Husam Vital OPHELIA Enco unter/ Legacy 00:00:00 00:00:00 Visit Esdras [place] [id number] 2224 [facility] 732798 ty Health 2016-07-01 2016-07-01 Office Conor VERO LC Encounter/ Legacy 00:00:00 00:00:00 Visit Remy [id number] Com mychal 465046 ty Health 2016-06-28 2016-06-28 Office YoelVERO LC Encounter / Legacy 00:00:00 00:00:00 Visit Chiara [id number] Com mychal 334635 ty Health 2016-03-24 2016-03-24 Office Zahraa OPHELIAFransisca LC Encounter / Legacy 00:00:00 00:00:00 Visit Husam [id number] Com mychal 032934 ty Health 2016-03-24 2016-03-24 Office VERO Vital LC Encounter / Legacy 00:00:00 00:00:00 Visit Husam [id number] Com mychal 283151 ty Health 2016-03-24 2016-03-24 Office Husam Vital OPHELIAFransisca OPHELIA Enco unter/ Legacy 00:00:00 00:00:00 Visit Nkechi [place] [id number] 5618 Communi 096307 ty Health 2016-03-24 2016-03-24 Office VERO Vital LC Encounter / Legacy 00:00:00 00:00:00 Visit Husam [id number] Com mychal 346121 ty Health 2016-03-08 2016-03-08 Office MarileeVERO [facility] Encounter / Legacy 00:00:00 00:00:00 Visit Dilma [id number] Com mychal 766366 ty Health 2016-03-08 2016-03-08 Office ConorVERO [facility] Encounter/ Legacy 00:00:00 00:00:00 Visit Remy [id number] Com mychal 757384 ty Health 2016-03-08 2016-03-08 Office Remy Perdomo LCFransisca [facility] Encou nter/ Legacy 00:00:00 00:00:00 Visit Jo Valle [id number] Communi 526965 ty Health 2016-02-26 2016-02-26 Office VERO Perdomo [facility] Encounter/ Legacy 00:00:00 00:00:00 Visit Remy [id number] Com mychal 418536 ty Health 2016-01-27 2016-01-27 Office Zahraa, VERO [facility] Encounter / Legacy 00:00:00 00:00:00 Visit Husam [id number] Com mychal 911922 ty Health 2016-01-22 2016-01-22 Office VERO Diallo [facility] Encounter / Legacy 00:00:00 00:00:00 Visit Chiara [id number] Com mychal 115274 ty Health 2015-12-02 2015-12-02 Office Nan, VERO [facility] Encounter/ Legacy 00:00:00 00:00:00 Visit Nkechi [id number] Com mychal 578313 ty Health 2015-10-27 2015-10-27 Office Yoel, VERO [facility] Encounter / Legacy 00:00:00 00:00:00 Visit Chiara [id number] Com mychal 722797 ty Health 2015-09-05 2015-09-05 Office Zahraa, VERO [facility] Encounter / Legacy 00:00:00 00:00:00 Visit Husam [id number] Com mychal 889246 ty Health 2015-09-05 2015-09-05 Office Zahraa, VERO [facility] Encounter / Legacy 00:00:00 00:00:00 Visit Husam [id number] Com mychal 857380 ty Health 2015-09-03 2015-09-03 Office Zahraa, OPHELIAH [facility] Encounter / Legacy 00:00:00 00:00:00 Visit Husam [id number] Com mychal 062179 ty Health 2015-07-14 2015-07-14 Office Zahraa, LCFransisca [facility] Encounter / Legacy 00:00:00 00:00:00 Visit Husam [id number] Com mychal 781727 ty Health 2015-07-02 2015-07-02 Office Gentry, LCH [facility] Encounter/ Legacy 00:00:00 00:00:00 Visit Odin [id number] Com mychal 242167 ty Health 2015-07-02 2015-07-02 Office MichaelVERO Encounter / Legacy 00:00:00 00:00:00 Visit Zee [id number] C ommuni 589559 ty Health 2015-07-01 2015-07-01 Office MichaelVERO Encounter / Legacy 00:00:00 00:00:00 Visit Zee [id number] C ommuni 894703 ty Health 2015-07-01 2015-07-01 Office NemandrewVERO Encounter / Legacy 00:00:00 00:00:00 Visit Husam [id number] Com mychal 580808 ty Health 2015-07-01 2015-07-01 Office Husam Vital Enco unter/ Legacy 00:00:00 00:00:00 Visit Nkechi [place] [id number] 9768 Communi 572872 ty Health 2015-06-17 2015-06-17 Office NemVERO morales Encounter / Legacy 00:00:00 00:00:00 Visit Husam [id number] Com mychal 259792 ty Health 2015-06-17 2015-06-17 Office NemdavieVERO hopkins Encounter / Legacy 00:00:00 00:00:00 Visit Husam [id number] Com mychal [id number] ty Health 2015-06-17 2015-06-17 Office NemandrewVERO Encounter / Legacy 00:00:00 00:00:00 Visit Husam [id number] Com mychal [id number] ty Health 2015-06-17 2015-06-17 Office NemandrewVERO Encounter / Legacy 00:00:00 00:00:00 Visit Husam [id number] Com mychal [id number] ty Health 2015-03-18 2015-03-18 Office NemdavieVERO hopkins Encounter / Legacy 00:00:00 00:00:00 Visit Husam [id number] Com mychal 103936 ty Health 2015-03-18 2015-03-18 Office MichaelVERO Encounter / Legacy 00:00:00 00:00:00 Visit Zee [id number] C ommuni [id number] ty Health 2015-03-18 2015-03-18 Office VERO Rodriguez Encounter / Legacy 00:00:00 00:00:00 Visit Zee [id number] C ommuni 459574 ty Health 2015-03-18 2015-03-18 Office VERO Vital Encounter / Legacy 00:00:00 00:00:00 Visit Husam [id number] Com mychal 853368 ty Health 2015-03-18 2015-03-18 Office Husam Vital Enco unter/ Legacy 00:00:00 00:00:00 Visit Lexy Ward [id number] Valentine Diamond [id number] ty Health 2015-03-17 2015-03-17 Office VERO Vital Encounter / Legacy 00:00:00 00:00:00 Visit Husam [id number] Com mychal [id number] ty Health 2015-03-17 2015-03-17 Office VERO Saprks Encounter/ Legacy 00:00:00 00:00:00 Visit Sammie [id number] Co mmuni [id number] ty Health 2015-03-15 2015-03-15 Office VERO Sparks Encounter/ Legacy 00:00:00 00:00:00 Visit Sammie [id number] Co mmuni [id number] ty Health 2015-03-13 2015-03-[address]/ Legacy 00:00:00 00:00:00 Visit Deidra ramon [id number] Co mmuni [id number] ty Health 2015-03-03 2015-03-03 Office VERO Cespedes Encounter/ Legacy 00:00:00 00:00:00 Visit Elodia [id number] Com mychal 530800 ty Health 2015-03-03 2015-03-03 Office VERO Cespedes Encounter/ Legacy 00:00:00 00:00:00 Visit Elodia [id number] Com mychal 960383 ty Health 2015-03-03 2015-03-03 Office VERO Cespedes Encounter/ Legacy 00:00:00 00:00:00 Visit Elodia [id number] Com mychal [id number] Health 2015-03-03 2015-03-03 Office Elodia Cespedes [facility] Enc ounter/ Legacy 00:00:00 00:00:00 Visit Atif Harris [id number] [facility] [id number] Health 2015-03-03 2015-03-03 Office Zahraa [facility] Encounter / Legacy 00:00:00 00:00:00 [facility] [id number] [facility] 0[facility] Results Test Description Test Time Test Comments Results Result Comments Source rapid plasma reagin antibody, serum 2020-05-28 10:39:00 Test Item Value Reference Range Interpretation Comme nts rapid plasma reagin antibody, serum (test code = Non Reactive Non R eactive 5291-0) [facility], blood, as % of total [id number] 10:39:00 Test Item Value Reference Range Interpretation Comments hemoglobin A1C, blood, as % of total 6.3 % 4.8-5.6 H hemoglobin (test code = 4548-4) [facility], serum, by PCR, uvrlrvtrjhsn1939-07-14 10:39:00 Test Item Value Reference Range Interpretation Comments HIV-1RNA, serum, by PCR, quantitative 30 /mL (test code = 93434) [facility]LDL cholesterol, [id number] 10:39:00 Test Item Value Reference Range Interpretation Comments LDL cholesterol, serum (test code = 87 mg/dL 0-99 2088-1) [facility]very low density mwpkbeczylen6745-45-02 10:39:00 Test Item Value Reference Range Interpretation Comments very low density lipoproteins (test 44 mg/dL 5-40 H code = 1-7) [facility]HDL cholesterol, llsbq1693-95-23 10:39:00 Test Item Value Reference Range Interpretation Comments HDL cholesterol, serum (test code = 32 mg/dL >39 L 5-9) [facility]triglyceride, serum, jobnxot2072-75-89 10:39:00 Test Item Value Reference Range Interpretation Comments triglyceride, serum, fasting (test 220 mg/dL 0-149 H code = 2571-8) [facility]cholesterol, ihczu8517-55-25 10:39:00 Test Item Value Reference Range Interpretation Comments cholesterol, serum (test code = 163 mg/dL 050-722 1247-3) [facility] Healthalanine aminotransferase (SGPT), fxbiz7297-23-32 10:39:00 Test Item Value Reference Range Interpretation Comments alanine aminotransferase (SGPT), serum 15 1/L 0-32 (test code = 1742-6) [facility] Hospitalaspartate aminotransferase (SGOT), tusdi9117-06-91 10:39:00 Test Item Value Reference Range Interpretation Comments aspartate aminotransferase (SGOT), 17 1/L 0-40 serum (test code = 1920-8) [facility] Hospitalalkaline phosphatase, yujkf7396-04-88 10:39:00 Test Item Value Reference Range Interpretation Comments alkaline phosphatase, serum (test code 93 1/L 39-117 = 1783-0) [facility]bilirubin, serum, pelbh9162-28-76 10:39:00 Test Item Value Reference Range Interpretation Comments bilirubin, serum, total (test code <0.2 mg/dL 0.0-1.2 = 1975-2) [facility] Healthalbumin/globulin ratio, [id number] 10:39:00 Test Item Value Reference Range Interpretation Comments albumin/globulin ratio, serum (test 1.7 1.2-2.2 code = 1759-0) [facility] Healthglobulin, [id number] 10:39:00 Test Item Value Reference Range Interpretation Comments globulin, serum (test code = 2336-6) 2.4 1.5-4.5 [facility] Healthalbumin, [id number] 10:39:00 Test Item Value Reference Range Interpretation Comments albumin, serum (test code = 1751-7) 4.0 g/dL 3.8-4.9 [facility]protein, total, phaao2758-25-70 10:39:00 Test Item Value Reference Range Interpretation Comments protein, total, serum (test code = 6.4 g/dL 6.0-8.5 2885-2) [facility]calcium, [id number] 10:39:00 Test Item Value Reference Range Interpretation Comments calcium, serum (test code = 1999-8) 9.1 mg/dL 8.7-10.3 [facility]carbon dioxide, venous wctzd5427-19-88 10:39:00 Test Item Value Reference Range Interpretation Comments carbon dioxide, venous blood (test 27 mmol/L 20-29 code = 2027-1) [facility] Healthchloride, [id number] 10:39:00 Test Item Value Reference Range Interpretation Comments chloride, serum (test code = 100 mmol/L 96-106 2075-0) [facility] Healthpotassium, [id number] 10:39:00 Test Item Value Reference Range Interpretation Comments potassium, serum (test code = 4.6 mmol/L 3.5-5.2 2823-3) [facility]alsodium, gasdg0979-41-17 10:39:00 Test Item Value Reference Range Interpretation Comments sodium, serum (test code = 2951-2) 139 mmol/L 134-144 [facility] Hospitalurea nitrogen/creatinine ratio, rtgnn2056-06-76 10:39:00 Test Item Value Reference Range Interpretation Comments urea nitrogen/creatinine ratio, serum 13 12-28 (test code = 3097-3) [facility] HealtheGFR if Uyuahwih9250-82-85 10:39:00 Test Item Value Reference Range Interpretation Comments eGFR if 110 >59 (test code = 19401-7) mL/min/((173/100).m2) [facility] HospitalEstimated Glomerular Filtration Rate (calc)2020-05-28 10:39:00 Test Item Value Reference Range Interpretation Comments Estimated Glomerular 96 >59 Filtration Rate (calc) mL/min/((173/100).m2 (test code = 70719-6) ) [facility] Healthcreatinine, [id number] 10:39:00 Test Item Value Reference Range Interpretation Comments creatinine, serum (test code = 0.67 mg/dL 0.57-1.00 2160-0) [facility] Hospitalurea nitrogen, [id number] 10:39:00 Test Item Value Reference Range Interpretation Comments urea nitrogen, blood (test code = 9 mg/dL 8-27 3094-0) [facility] Hospitalblood glucose, offvni3025-71-58 10:39:00 Test Item Value Reference Range Interpretation Comments blood glucose, random (test code = 106 mg/dL 65-99 H 2339-0) [facility] Hospitalimmature granulocytes, percentage of total cells, blood 2020-05-28 10:39:00 Test Item Value Reference Range Interpretation Comments immature granulocytes, percentage of 0 % total cells, blood (test code = 16446-1) [facility] Healthbasophil count, trkqtezl6771-09-94 10:39:00 Test Item Value Reference Range Interpretation Comments basophil count, absolute (test 0.0 x10E3/uL 0.0-0.2 code = 58718-0) [facility] HealthEosinophil Absolute Hknju0538-40-59 10:39:00 Test Item Value Reference Range Interpretation Comments Eosinophil Absolute Count (test 0.1 X10E3/UL 0.0-0.4 code = 12446-1) [facility] Hospitalmonocyte count, blood, pflchzpiq7462-15-79 10:39:00 Test Item Value Reference Range Interpretation Comments monocyte count, blood, automated 0.4 X10E3/UL 0.1-0.9 (test code = 742-7) [facility] Hospitallymphocyte count, blood, xiolqduzf4704-31-90 10:39:00 Test Item Value Reference Range Interpretation Comments lymphocyte count, blood, 1.5 X10E3/UL 0.7-3.1 automated (test code = 731-0) [facility] HospitalAbsolute Zfiyibmgyzz3915-69-17 10:39:00 Test Item Value Reference Range Interpretation Comments Absolute Neutrophils (test code 4.8 X10E3/UL 1.4-7.0 = 43787-8) [facility] Hospitalbasophils as percent of blood hrwrupqydj6692-06-63 10:39:00 Test Item Value Reference Range Interpretation Comments basophils as percent of blood 0 % leukocytes (test code = 707-0) [facility] Healtheosinophils as percent of blood bgnroxcjhz5327-98-53 10:39:00 Test Item Value Reference Range Interpretation Comments eosinophils as percent of blood 1 % leukocytes (test code = 713-8) [facility] Healthmonocytes as percent of blood rcxchqbegv3559-80-64 10:39:00 Test Item Value Reference Range Interpretation Comments monocytes as percent of blood 6 % leukocytes (test code = 5905-5) [facility] Hospitallymphocytes as percent of blood odvaxqfcsh9935-05-18 10:39:00 Test Item Value Reference Range Interpretation Comments lymphocytes as percent of blood 23 % leukocytes (test code = 736-9) [facility] Hospitalneutrophils as percent of blood hulwnczwle2918-31-14 10:39:00 Test Item Value Reference Range Interpretation Comments neutrophils as percent of blood 70 % leukocytes (test code = 770-8) [facility] Hospitalplatelet iiteg8569-66-94 10:39:00 Test Item Value Reference Range Interpretation Comments platelet count (test code = 203 X10E3/UL 150-450 777-3) [facility] Hospitalred blood cell distribution twulb1584-40-06 10:39:00 Test Item Value Reference Range Interpretation Comments red blood cell distribution width 12.4 % 11.7-15.4 (test code = 788-0) [facility] corpuscular hemoglobin concentration, [id number] 10:39:00 Test Item Value Reference Range Interpretation Comments mean corpuscular hemoglobin 36.0 G/DL 31.5-35.7 H concentration, RBC (test code = 786-4) [facility] corpuscular hemoglobin, [id number] 10:39:00 Test Item Value Reference Range Interpretation Comments mean corpuscular hemoglobin, RBC 34.9 pg 26.6-33.0 H (test code = 785-6) [facility] corpuscular volume, [id number] 10:39:00 Test Item Value Reference Range Interpretation Comments mean corpuscular volume, RBC (test code 97 fL 79-97 = 787-2) [facility] Hospitalhematocrit, yqkuc5510-42-60 10:39:00 Test Item Value Reference Range Interpretation Comments hematocrit, blood (test code = 4544-3) 38.1 % 34.0-46.6 [facility] Hospitalhemoglobin, mxnst0545-36-94 10:39:00 Test Item Value Reference Range Interpretation Comments hemoglobin, blood (test code = 13.7 g/dL 11.1-15.9 718-7) [facility] Hospitalerythrocyte (RBC) nfpoe3107-03-64 10:39:00 Test Item Value Reference Range Interpretation Comments erythrocyte (RBC) count (test 3.93 X10E6/UL 3.77-5.28 code = 789-8) [facility] Hospitalleukocyte count, [id number] 10:39:00 Test Item Value Reference Range Interpretation Comments leukocyte count, blood (test 6.8 X10E3/UL 3.4-10.8 code = 6690-2) [facility] HospitalCD4/CD8 ynjmp6169-55-63 10:39:00 Test Item Value Reference Range Interpretation Comments CD4/CD8 ratio (test code = 86427) 1.20 0.92-3.72 [facility] HospitalT-suppressor cells (CD8) as percent of blood lymphocytes 2020-05-28 10:39:00 Test Item Value Reference Range Interpretation Comments T-suppressor cells (CD8) as percent of 27.1 % 12.0-35.5 blood lymphocytes (test code = 3517) [facility] Hospitalabsolute [id number] 10:39:00 Test Item Value Reference Range Interpretation Comments absolute CD8 (test code = 06552) 407 109-897 [facility] HospitalT-helper cells (CD4) as percent of blood lymphocytes 2020-05-28 10:39:00 Test Item Value Reference Range Interpretation Comments T-helper cells (CD4) as percent of 32.4 % 30.8-58.5 blood lymphocytes (test code = 8123-2) [facility] HospitalT-helper cells (CD4) qagou6439-22-26 10:39:00 Test Item Value Reference Range Interpretation Comments T-helper cells (CD4) count (test code 486 /UL 359-1519 = 64522-8) [facility] Hospitalrapid plasma reagin antibody, sqwgc0791-93-23 11:23:00 Test Item Value Reference Range Interpretation Comments rapid plasma reagin antibody, Non Reactive Non Reactive serum (test code = 5291-0) [facility] Hospitalhemoglobin A1C, blood, as % of total faevdkmlgx5656-46-17 11:23:00 Test Item Value Reference Range Interpretation Comments hemoglobin A1C, blood, as % of total 5.6 % 4.8-5.6 hemoglobin (test code = 4548-4) [facility] HospitalHIV-1RNA, serum, by PCR, fosreijyiteb2317-09-64 11:23:00 Test Item Value Reference Range Interpretation Comments HIV-1RNA, serum, by PCR, <20 copies/mL quantitative (test code = 15670) [facility] HospitalLDL cholesterol, [id number] 11:23:00 Test Item Value Reference Range Interpretation Comments LDL cholesterol, serum (test code = 94 mg/dL 0-99 2088-1) [facility] Hospitalvery low density uiriearqyfwt1981-63-73 11:23:00 Test Item Value Reference Range Interpretation Comments very low density lipoproteins (test 57 mg/dL 5-40 H code = 2090-7) [facility] HospitalHDL cholesterol, [id number] 11:23:00 Test Item Value Reference Range Interpretation Comments HDL cholesterol, serum (test code = 36 mg/dL >39 L 2084-9) [facility] Hospitaltriglyceride, serum, mjdwdhp8134-28-69 11:23:00 Test Item Value Reference Range Interpretation Comments triglyceride, serum, fasting (test 284 mg/dL 0-149 H code = 2571-8) [facility] Hospitalcholesterol, bwgwr2280-79-30 11:23:00 Test Item Value Reference Range Interpretation Comments cholesterol, serum (test code = 187 mg/dL 294-139 4897-3) [facility] Hospitalalanine aminotransferase (SGPT), [id number] 11:23:00 Test Item Value Reference Range Interpretation Comments alanine aminotransferase (SGPT), serum 7 1/L 0-32 (test code = 1742-6) [facility] Hospitalaspartate aminotransferase (SGOT), [id number] 11:23:00 Test Item Value Reference Range Interpretation Comments aspartate aminotransferase (SGOT), 9 1/L 0-40 serum (test code = 1920-8) [facility] Hospitalalkaline phosphatase, [id number] 11:23:00 Test Item Value Reference Range Interpretation Comments alkaline phosphatase, serum (test code 93 1/L 39-117 = 1783-0) [facility] Hospitalbilirubin, serum, [id number] 11:23:00 Test Item Value Reference Range Interpretation Comments bilirubin, serum, total (test code <0.2 mg/dL 0.0-1.2 = 1974-2) [facility] Hospitalalbumin/globulin ratio, [id number] 11:23:00 Test Item Value Reference Range Interpretation Comments albumin/globulin ratio, serum (test 1.4 1.2-2.2 code = 1759-0) [facility] Healthglobulin, [id number] 11:23:00 Test Item Value Reference Range Interpretation Comments globulin, serum (test code = 2336-6) 2.8 1.5-4.5 [facility] Healthalbumin, [id number] 11:23:00 Test Item Value Reference Range Interpretation Comments albumin, serum (test code = 1751-7) 3.9 g/dL 3.8-4.9 [facility] Healthprotein, total, [id number] 11:23:00 Test Item Value Reference Range Interpretation Comments protein, total, serum (test code = 6.7 g/dL 6.0-8.5 2885-2) [facility] Healthcalcium, [id number] 11:23:00 Test Item Value Reference Range Interpretation Comments calcium, serum (test code = 2000-8) 9.1 mg/dL 8.7-10.3 [facility] Hospitalcarbon dioxide, venous [id number] 11:23:00 Test Item Value Reference Range Interpretation Comments carbon dioxide, venous blood (test 27 mmol/L code = 2027-1) [facility] Healthchloride, harco8062-94-15 11:23:00 Test Item Value Reference Range Interpretation Comments chloride, serum (test code = 99 mmol/L 96-106 5-0) [facility] Healthpotassium, kynmy1177-12-44 11:23:00 Test Item Value Reference Range Interpretation Comments potassium, serum (test code = 4.7 mmol/L 3.5-5.2 2823-3) [facility]alsodium, [id number] 11:23:00 Test Item Value Reference Range Interpretation Comments sodium, serum (test code = 2951-2) 140 mmol/L 134-144 [facility] Hospitalurea nitrogen/creatinine ratio, ejxqn5501-06-72 11:23:00 Test Item Value Reference Range Interpretation Comments urea nitrogen/creatinine ratio, serum 17 -28 (test code = 3097-3) [facility] HealtheGFR if Wrrktffa5494-62-45 11:23:00 Test Item Value Reference Range Interpretation Comments eGFR if 100 >59 (test code = 64120-7) mL/min/((173/100).m2) [facility] HospitalEstimated Glomerular Filtration Rate (calc)2020-02-07 11:23:00 Test Item Value Reference Range Interpretation Comments Estimated Glomerular 87 >59 Filtration Rate (calc) mL/min/((173/100).m2 (test code = 44195-7) ) [facility] Hospitalcreatinine, [id number] 11:23:00 Test Item Value Reference Range Interpretation Comments creatinine, serum (test code = 0.75 mg/dL 0.57-1.00 2160-0) [facility]urea nitrogen, [id number] 11:23:00 Test Item Value Reference Range Interpretation Comments urea nitrogen, blood (test code = 13 mg/dL 8-27 3094-0) [facility] Hospitalblood glucose, [id number] 11:23:00 Test Item Value Reference Range Interpretation Comments blood glucose, random (test code = 74 mg/dL 65-99 2339-0) [facility] Hospitalimmature granulocytes, percentage of total cells, blood 2020-02-07 11:23:00 Test Item Value Reference Range Interpretation Comments immature granulocytes, percentage of 0 % total cells, blood (test code = 44139-3) [facility] Hospitalbasophil count, ymajiwyi9346-13-26 11:23:00 Test Item Value Reference Range Interpretation Comments basophil count, absolute (test 0.0 x10E3/uL 0.0-0.2 code = 21272-8) [facility] HospitalEosinophil Absolute [id number] 11:23:00 Test Item Value Reference Range Interpretation Comments Eosinophil Absolute Count (test 0.1 X10E3/UL 0.0-0.4 code = 74847-5) [facility] Hospitalmonocyte count, blood, bmwctxoqb3362-24-65 11:23:00 Test Item Value Reference Range Interpretation Comments monocyte count, blood, automated 0.4 X10E3/UL 0.1-0.9 (test code = 742-7) [facility] Hospitallymphocyte count, blood, ogkcojxed3933-96-64 11:23:00 Test Item Value Reference Range Interpretation Comments lymphocyte count, blood, 1.6 X10E3/UL 0.7-3.1 automated (test code = 731-0) [facility] HealthAbsolute Uholyjsdbtu0421-19-65 11:23:00 Test Item Value Reference Range Interpretation Comments Absolute Neutrophils (test code 5.0 X10E3/UL 1.4-7.0 = 73838-9) [facility] Hospitalbasophils as percent of blood nzsebvdhvp5573-65-11 11:23:00 Test Item Value Reference Range Interpretation Comments basophils as percent of blood 0 % leukocytes (test code = 707-0) [facility]aleosinophils as percent of blood lsquoonuzc5224-70-93 11:23:00 Test Item Value Reference Range Interpretation Comments eosinophils as percent of blood 1 % leukocytes (test code = 713-8) [facility] Healthmonocytes as percent of blood qjbsfergwc7503-34-57 11:23:00 Test Item Value Reference Range Interpretation Comments monocytes as percent of blood 6 % leukocytes (test code = 5905-5) [facility] Hospitallymphocytes as percent of blood adncdqmncz9018-93-10 11:23:00 Test Item Value Reference Range Interpretation Comments lymphocytes as percent of blood 22 % leukocytes (test code = 736-9) [facility] Hospitalneutrophils as percent of blood cjexomrlrb6498-12-82 11:23:00 Test Item Value Reference Range Interpretation Comments neutrophils as percent of blood 71 % leukocytes (test code = 770-8) [facility] Hospitalplatelet lodng3328-42-07 11:23:00 Test Item Value Reference Range Interpretation Comments platelet count (test code = 214 X10E3/UL 150-450 777-3) [facility] Hospitalred blood cell distribution judpq5987-92-42 11:23:00 Test Item Value Reference Range Interpretation Comments red blood cell distribution width 12.8 % 11.7-15.4 (test code = 788-0) [facility] corpuscular hemoglobin concentration, [id number] 11:23:00 Test Item Value Reference Range Interpretation Comments mean corpuscular hemoglobin 33.4 G/DL 31.5-35.7 concentration, RBC (test code = 786-4) [facility] corpuscular hemoglobin, [id number] 11:23:00 Test Item Value Reference Range Interpretation Comments mean corpuscular hemoglobin, RBC 33.8 pg 26.6-33.0 H (test code = 785-6) [facility] Hospitalmean corpuscular volume, [id number] 11:23:00 Test Item Value Reference Range Interpretation Comments mean corpuscular volume, RBC (test 101 fL 79-97 H code = 787-2) [facility] Hospitalhematocrit, [id number] 11:23:00 Test Item Value Reference Range Interpretation Comments hematocrit, blood (test code = 4544-3) 40.1 % 34.0-46.6 [facility] Hospitalhemoglobin, rsiqf3579-86-79 11:23:00 Test Item Value Reference Range Interpretation Comments hemoglobin, blood (test code = 13.4 g/dL 11.1-15.9 718-7) [facility] Hospitalerythrocyte (RBC) [id number] 11:23:00 Test Item Value Reference Range Interpretation Comments erythrocyte (RBC) count (test 3.97 X10E6/UL 3.77-5.28 code = 789-8) [facility] Hospitalleukocyte count, wfaeh3799-87-07 11:23:00 Test Item Value Reference Range Interpretation Comments leukocyte count, blood (test 7.1 X10E3/UL 3.4-10.8 code = 6690-2) [facility] HospitalCD4/CD8 vfnop3696-51-45 11:23:00 Test Item Value Reference Range Interpretation Comments CD4/CD8 ratio (test code = 99595) 1.01 0.92-3.72 [facility] HospitalT-suppressor cells (CD8) as percent of blood lymphocytes 2020-02-07 11:23:00 Test Item Value Reference Range Interpretation Comments T-suppressor cells (CD8) as percent of 28.0 % 12.0-35.5 blood lymphocytes (test code = 3517) [facility] Hospitalabsolute [id number] 11:23:00 Test Item Value Reference Range Interpretation Comments absolute CD8 (test code = 63678) 448 109-897 [facility] HospitalT-helper cells (CD4) as percent of blood lymphocytes 2020-02-07 11:23:00 Test Item Value Reference Range Interpretation Comments T-helper cells (CD4) as percent of 28.4 % 30.8-58.5 L blood lymphocytes (test code = 8123-2) [facility] HospitalT-helper cells (CD4) [id number] 11:23:00 Test Item Value Reference Range Interpretation Comments T-helper cells (CD4) count (test code 454 /UL 359-3129 = 50274-5) [facility] HospitalQuantiferon Gold TB blood test for tuberculosis screening 2019-10-04 09:29:00 Test Item Value Reference Range Interpretation Comments Quantiferon Gold TB blood test for Positive Negative A tuberculosis screening (test code = 41521-2) [facility], [id number] 09:19:00 Test Item Value Reference Range Interpretation Comments hepatitis C antibody, serum (test code <0.1 0.0-0.9 = 5199-5) [facility]id plasma reagin antibody, [id number] 09:19:00 Test Item Value Reference Range Interpretation Comments rapid plasma reagin antibody, Non Reactive Non Reactive serum (test code = 5291-0) [facility]HIV-1RNA, serum, by PCR, [id number] 09:19:00 Test Item Value Reference Range Interpretation Comments HIV-1RNA, serum, by PCR, quantitative 380 /mL (test code = 82796) [facility]LDL cholesterol, [id number] 09:19:00 Test Item Value Reference Range Interpretation Comments LDL cholesterol, serum (test code = 82 mg/dL 0-99 2088-1) [facility]very low density lydjpsjvrhfv1897-27-17 09:19:00 Test Item Value Reference Range Interpretation Comments very low density lipoproteins (test 32 mg/dL 5-40 code = 1-7) [facility]HDL cholesterol, [id number] 09:19:00 Test Item Value Reference Range Interpretation Comments HDL cholesterol, serum (test code = 42 mg/dL >39 5-9) [facility]triglyceride, serum, [id number] 09:19:00 Test Item Value Reference Range Interpretation Comments triglyceride, serum, fasting (test 161 mg/dL 0-149 H code = 2571-8) [facility]cholesterol, [id number] 09:19:00 Test Item Value Reference Range Interpretation Comments cholesterol, serum (test code = 156 mg/dL 236-910 7802-3) [facility] Hospitalalanine aminotransferase (SGPT), [id number] 09:19:00 Test Item Value Reference Range Interpretation Comments alanine aminotransferase (SGPT), serum 10 1/L 0-32 (test code = 1742-6) [facility] Hospitalaspartate aminotransferase (SGOT), [id number] 09:19:00 Test Item Value Reference Range Interpretation Comments aspartate aminotransferase (SGOT), 9 1/L 0-40 serum (test code = 1920-8) [facility]alkaline phosphatase, [id number] 09:19:00 Test Item Value Reference Range Interpretation Comments alkaline phosphatase, serum (test code 99 1/L 39-117 = 1783-0) [facility]bilirubin, serum, [id number] 09:19:00 Test Item Value Reference Range Interpretation Comments bilirubin, serum, total (test code 0.3 mg/dL 0.0-1.2 = 1975-2) [facility]albumin/globulin ratio, [id number] 09:19:00 Test Item Value Reference Range Interpretation Comments albumin/globulin ratio, serum (test 1.6 1.2-2.2 code = 1759-0) [facility] Healthglobulin, [id number] 09:19:00 Test Item Value Reference Range Interpretation Comments globulin, serum (test code = 2336-6) 2.4 1.5-4.5 [facility] Healthalbumin, [id number] 09:19:00 Test Item Value Reference Range Interpretation Comments albumin, serum (test code = 1751-7) 3.9 g/dL 3.5-5.5 [facility] Healthprotein, total, [id number] 09:19:00 Test Item Value Reference Range Interpretation Comments protein, total, serum (test code = 6.3 g/dL 6.0-8.5 2885-2) [facility]calcium, [id number] 09:19:00 Test Item Value Reference Range Interpretation Comments calcium, serum (test code = 2000-8) 9.2 mg/dL 8.7-10.2 [facility]carbon dioxide, venous [id number] 09:19:00 Test Item Value Reference Range Interpretation Comments carbon dioxide, venous blood (test 27 mmol/L 20-29 code = 7-1) [facility] Healthchloride, [id number] 09:19:00 Test Item Value Reference Range Interpretation Comments chloride, serum (test code = 102 mmol/L 96-106 2075-0) [facility] Healthpotassium, [id number] 09:19:00 Test Item Value Reference Range Interpretation Comments potassium, serum (test code = 4.5 mmol/L 3.5-5.2 2823-3) [facility] Healthsodium, [id number] 09:19:00 Test Item Value Reference Range Interpretation Comments sodium, serum (test code = 2951-2) 140 mmol/L 134-144 [facility]urea nitrogen/creatinine ratio, [id number] 09:19:00 Test Item Value Reference Range Interpretation Comments urea nitrogen/creatinine ratio, serum 25 9-23 H (test code = 3097-3) [facility] HealtheGFR if Rbzqkfoy1074-84-69 09:19:00 Test Item Value Reference Range Interpretation Comments eGFR if 118 >59 (test code = 91019-1) mL/min/((173/100).m2) [facility] HospitalEstimated Glomerular Filtration Rate (calc)2019-10-04 09:19:00 Test Item Value Reference Range Interpretation Comments Estimated Glomerular 102 >59 Filtration Rate (calc) mL/min/((173/100).m2 (test code = 62733-2) ) [facility] Hospitalcreatinine, [id number] 09:19:00 Test Item Value Reference Range Interpretation Comments creatinine, serum (test code = 0.56 mg/dL 0.57-1.00 L 2160-0) [facility]urea nitrogen, [id number] 09:19:00 Test Item Value Reference Range Interpretation Comments urea nitrogen, blood (test code = 14 mg/dL 6-24 3094-0) [facility] Hospitalblood glucose, [id number] 09:19:00 Test Item Value Reference Range Interpretation Comments blood glucose, random (test code = 121 mg/dL 65-99 H 2339-0) [facility] Hospitalimmature granulocytes, percentage of total cells, blood 2019-10-04 09:19:00 Test Item Value Reference Range Interpretation Comments immature granulocytes, percentage of 0 % total cells, blood (test code = 88349-3) [facility] Hospitalbasophil count, [id number] 09:19:00 Test Item Value Reference Range Interpretation Comments basophil count, absolute (test 0.0 x10E3/uL 0.0-0.2 code = 38524-1) [facility] HealthEosinophil Absolute Dvlqt3707-20-25 09:19:00 Test Item Value Reference Range Interpretation Comments Eosinophil Absolute Count (test 0.2 X10E3/UL 0.0-0.4 code = 93044-6) [facility] Healthmonocyte count, blood, [id number] 09:19:00 Test Item Value Reference Range Interpretation Comments monocyte count, blood, automated 0.4 X10E3/UL 0.1-0.9 (test code = 742-7) [facility]allymphocyte count, blood, [id number] 09:19:00 Test Item Value Reference Range Interpretation Comments lymphocyte count, blood, 1.7 X10E3/UL 0.7-3.1 automated (test code = 731-0) [facility] HospitalAbsolute Knwdugbdkpk1900-63-48 09:19:00 Test Item Value Reference Range Interpretation Comments Absolute Neutrophils (test code 3.5 X10E3/UL 1.4-7.0 = 14500-9) [facility] Hospitalbasophils as percent of blood pqfsutnfas9607-32-34 09:19:00 Test Item Value Reference Range Interpretation Comments basophils as percent of blood 1 % leukocytes (test code = 707-0) [facility] Healtheosinophils as percent of blood uxeqwjjqnq0167-39-42 09:19:00 Test Item Value Reference Range Interpretation Comments eosinophils as percent of blood 3 % leukocytes (test code = 713-8) [facility] Healthmonocytes as percent of blood jgrjgenxkf5976-00-77 09:19:00 Test Item Value Reference Range Interpretation Comments monocytes as percent of blood 7 % leukocytes (test code = 5905-5) [facility] Hospitallymphocytes as percent of blood itdiwfsqsr9882-01-34 09:19:00 Test Item Value Reference Range Interpretation Comments lymphocytes as percent of blood 29 % leukocytes (test code = 736-9) [facility] Hospitalneutrophils as percent of blood jcbncvquos4706-01-69 09:19:00 Test Item Value Reference Range Interpretation Comments neutrophils as percent of blood 60 % leukocytes (test code = 770-8) [facility] Hospitalplatelet fbmzo9644-43-84 09:19:00 Test Item Value Reference Range Interpretation Comments platelet count (test code = 234 X10E3/UL 150-450 777-3) [facility] Hospitalred blood cell distribution [id number] 09:19:00 Test Item Value Reference Range Interpretation Comments red blood cell distribution width 13.0 % 12.3-15.4 (test code = 788-0) [facility] corpuscular hemoglobin concentration, [id number] 09:19:00 Test Item Value Reference Range Interpretation Comments mean corpuscular hemoglobin 33.8 G/DL 31.5-35.7 concentration, RBC (test code = 786-4) [facility], [id number] 09:19:00 Test Item Value Reference Range Interpretation Comments mean corpuscular hemoglobin, RBC 34.9 pg 26.6-33.0 H (test code = 785-6) [facility], [id number] 09:19:00 Test Item Value Reference Range Interpretation Comments mean corpuscular volume, RBC (test 103 fL 79-97 H code = 787-2) [facility] Hospitalhematocrit, [id number] 09:19:00 Test Item Value Reference Range Interpretation Comments hematocrit, blood (test code = 4544-3) 41.4 % 34.0-46.6 [facility]hemoglobin, [id number] 09:19:00 Test Item Value Reference Range Interpretation Comments hemoglobin, blood (test code = 14.0 g/dL 11.1-15.9 718-7) [facility] Hospitalerythrocyte (RBC) [id number] 09:19:00 Test Item Value Reference Range Interpretation Comments erythrocyte (RBC) count (test 4.01 X10E6/UL 3.77-5.28 code = 789-8) [facility] Hospitalleukocyte count, [id number] 09:19:00 Test Item Value Reference Range Interpretation Comments leukocyte count, blood (test 5.8 X10E3/UL 3.4-10.8 code = 6690-2) [facility] HospitalCD4/CD8 [id number] 09:19:00 Test Item Value Reference Range Interpretation Comments CD4/CD8 ratio (test code = 83229) 0.91 0.92-3.72 L [facility] HospitalT-suppressor cells (CD8) as percent of blood lymphocytes 2019-10-04 09:19:00 Test Item Value Reference Range Interpretation Comments T-suppressor cells (CD8) as percent of 26.7 % 12.0-35.5 blood lymphocytes (test code = 3517) [facility] Healthabsolute [id number] 09:19:00 Test Item Value Reference Range Interpretation Comments absolute CD8 (test code = 76582) 454 109-897 [facility] HospitalT-helper cells (CD4) as percent of blood lymphocytes 2019-10-04 09:19:00 Test Item Value Reference Range Interpretation Comments T-helper cells (CD4) as percent of 24.4 % 30.8-58.5 L blood lymphocytes (test code = 8123-2) [facility] HospitalT-helper cells (CD4) [id number] 09:19:00 Test Item Value Reference Range Interpretation Comments T-helper cells (CD4) count (test code 415 /UL 359-1519 = 36270-6) [facility] HospitalLDL cholesterol, klwjb2873-03-77 10:34:00 Test Item Value Reference Range Interpretation Comments LDL cholesterol, serum (test code = 58 mg/dL 0-99 2088-1) [facility] Hospitalvery low density lvuvyrducbzy4615-28-36 10:34:00 Test Item Value Reference Range Interpretation Comments very low density lipoproteins (test 35 mg/dL 5-40 code = 2091-7) [facility] HospitalHDL cholesterol, [id number] 10:34:00 Test Item Value Reference Range Interpretation Comments HDL cholesterol, serum (test code = 34 mg/dL >39 L 5-9) [facility] Hospitaltriglyceride, serum, [id number] 10:34:00 Test Item Value Reference Range Interpretation Comments triglyceride, serum, fasting (test 174 mg/dL 0-149 H code = 2571-8) [facility] Hospitalcholesterol, [id number] 10:34:00 Test Item Value Reference Range Interpretation Comments cholesterol, serum (test code = 127 mg/dL 969-861 3061-3) [facility] Hospitalrapid plasma reagin antibody, [id number] 10:25:00 Test Item Value Reference Range Interpretation Comments rapid plasma reagin antibody, Non Reactive Non Reactive serum (test code = 5291-0) [facility] HospitalHIV-1RNA, serum, by PCR, luttmtifppvc7934-92-19 10:25:00 Test Item Value Reference Range Interpretation Comments HIV-1RNA, serum, by PCR, <20 copies/mL quantitative (test code = 07489) [facility] Hospitalalanine aminotransferase (SGPT), [id number] 10:25:00 Test Item Value Reference Range Interpretation Comments alanine aminotransferase (SGPT), serum 12 1/L 0-32 (test code = 1742-6) [facility] Hospitalaspartate aminotransferase (SGOT), [id number] 10:25:00 Test Item Value Reference Range Interpretation Comments aspartate aminotransferase (SGOT), 9 1/L 0-40 serum (test code = 1920-8) [facility] Hospitalalkaline phosphatase, [id number] 10:25:00 Test Item Value Reference Range Interpretation Comments alkaline phosphatase, serum (test 102 1/L 39-117 code = 1783-0) [facility] Hospitalbilirubin, serum, [id number] 10:25:00 Test Item Value Reference Range Interpretation Comments bilirubin, serum, total (test code 0.4 mg/dL 0.0-1.2 = 1975-2) [facility] Hospitalalbumin/globulin ratio, [id number] 10:25:00 Test Item Value Reference Range Interpretation Comments albumin/globulin ratio, serum (test 1.4 1.2-2.2 code = 1759-0) [facility] Healthglobulin, [id number] 10:25:00 Test Item Value Reference Range Interpretation Comments globulin, serum (test code = 2336-6) 2.8 1.5-4.5 [facility] Hospitalalbumin, [id number] 10:25:00 Test Item Value Reference Range Interpretation Comments albumin, serum (test code = 1751-7) 4.0 g/dL 3.5-5.5 [facility] Hospitalprotein, total, [id number] 10:25:00 Test Item Value Reference Range Interpretation Comments protein, total, serum (test code = 6.8 g/dL 6.0-8.5 2885-2) [facility] Hospitalcalcium, [id number] 10:25:00 Test Item Value Reference Range Interpretation Comments calcium, serum (test code = 1999-8) 9.3 mg/dL 8.7-10.2 [facility] Hospitalcarbon dioxide, venous [id number] 10:25:00 Test Item Value Reference Range Interpretation Comments carbon dioxide, venous blood (test 29 mmol/L 20- code = 2026-1) [facility] Healthchloride, ksqje7119-42-00 10:25:00 Test Item Value Reference Range Interpretation Comments chloride, serum (test code = 99 mmol/L 96-106 5-0) [facility] Hospitalpotassium, [id number] 10:25:00 Test Item Value Reference Range Interpretation Comments potassium, serum (test code = 4.4 mmol/L 3.5-5.2 2823-3) [facility]alsodium, [id number] 10:25:00 Test Item Value Reference Range Interpretation Comments sodium, serum (test code = 2951-2) 140 mmol/L 134-144 [facility]urea nitrogen/creatinine ratio, [id number] 10:25:00 Test Item Value Reference Range Interpretation Comments urea nitrogen/creatinine ratio, serum 20 9-23 (test code = 3097-3) [facility] HealtheGFR if Itociuuq2267-08-92 10:25:00 Test Item Value Reference Range Interpretation Comments eGFR if 115 >59 (test code = 18204-7) mL/min/((173/100).m2) [facility] HospitalEstimated Glomerular Filtration Rate (calc)2019-06-07 10:25:00 Test Item Value Reference Range Interpretation Comments Estimated Glomerular 100 >59 Filtration Rate (calc) mL/min/((173/100).m2 (test code = 20817-8) ) [facility] Hospitalcreatinine, [id number] 10:25:00 Test Item Value Reference Range Interpretation Comments creatinine, serum (test code = 0.61 mg/dL 0.57-1.00 2160-0) [facility] Healthurea nitrogen, [id number] 10:25:00 Test Item Value Reference Range Interpretation Comments urea nitrogen, blood (test code = 12 mg/dL 6-24 3094-0) [facility] Hospitalblood glucose, [id number] 10:25:00 Test Item Value Reference Range Interpretation Comments blood glucose, random (test code = 131 mg/dL 65-99 H 2339-0) [facility] Hospitalimmature granulocytes, percentage of total cells, blood 2019-06-07 10:25:00 Test Item Value Reference Range Interpretation Comments immature granulocytes, percentage of 0 % total cells, blood (test code = 41645-3) [facility] Hospitalbasophil count, xoecbylb5665-43-56 10:25:00 Test Item Value Reference Range Interpretation Comments basophil count, absolute (test 0.0 x10E3/uL 0.0-0.2 code = 34895-8) [facility] HospitalEosinophil Absolute [id number] 10:25:00 Test Item Value Reference Range Interpretation Comments Eosinophil Absolute Count (test 0.1 X10E3/UL 0.0-0.4 code = 38596-0) [facility] Hospitalmonocyte count, blood, yogvbtbvb2408-80-24 10:25:00 Test Item Value Reference Range Interpretation Comments monocyte count, blood, automated 0.3 X10E3/UL 0.1-0.9 (test code = 742-7) [facility]allymphocyte count, blood, kxymrerow7748-68-23 10:25:00 Test Item Value Reference Range Interpretation Comments lymphocyte count, blood, 1.4 X10E3/UL 0.7-3.1 automated (test code = 731-0) [facility] HospitalAbsolute Kjfvyqjqkbf2777-14-19 10:25:00 Test Item Value Reference Range Interpretation Comments Absolute Neutrophils (test code 5.3 X10E3/UL 1.4-7.0 = 71719-8) [facility] Hospitalbasophils as percent of blood wlsxnypsxr1709-25-72 10:25:00 Test Item Value Reference Range Interpretation Comments basophils as percent of blood 0 % leukocytes (test code = 707-0) [facility]aleosinophils as percent of blood sptaoynjpl6776-62-81 10:25:00 Test Item Value Reference Range Interpretation Comments eosinophils as percent of blood 1 % leukocytes (test code = 713-8) [facility] Healthmonocytes as percent of blood gzsrztazjk2451-24-18 10:25:00 Test Item Value Reference Range Interpretation Comments monocytes as percent of blood 5 % leukocytes (test code = 5905-5) [facility]allymphocytes as percent of blood exbffechgo7112-66-60 10:25:00 Test Item Value Reference Range Interpretation Comments lymphocytes as percent of blood 19 % leukocytes (test code = 736-9) [facility] Healthneutrophils as percent of blood gtmbikymmp2526-27-20 10:25:00 Test Item Value Reference Range Interpretation Comments neutrophils as percent of blood 75 % leukocytes (test code = 770-8) [facility] Hospitalplatelet kvnao5057-55-65 10:25:00 Test Item Value Reference Range Interpretation Comments platelet count (test code = 227 X10E3/UL 150-450 777-3) [facility] Hospitalred blood cell distribution vgfdf9061-41-03 10:25:00 Test Item Value Reference Range Interpretation Comments red blood cell distribution width 13.4 % 12.3-15.4 (test code = 788-0) [facility] corpuscular hemoglobin concentration, [id number] 10:25:00 Test Item Value Reference Range Interpretation Comments mean corpuscular hemoglobin 34.2 G/DL 31.5-35.7 concentration, RBC (test code = 786-4) [facility], [id number] 10:25:00 Test Item Value Reference Range Interpretation Comments mean corpuscular hemoglobin, RBC 34.8 pg 26.6-33.0 H (test code = 785-6) [facility], [id number] 10:25:00 Test Item Value Reference Range Interpretation Comments mean corpuscular volume, RBC (test 102 fL 79-97 H code = 787-2) [facility] Hospitalhematocrit, [id number] 10:25:00 Test Item Value Reference Range Interpretation Comments hematocrit, blood (test code = 4544-3) 42.7 % 34.0-46.6 [facility] Hospitalhemoglobin, [id number] 10:25:00 Test Item Value Reference Range Interpretation Comments hemoglobin, blood (test code = 14.6 g/dL 11.1-15.9 718-7) [facility] Hospitalerythrocyte (RBC) aqtbo0782-79-21 10:25:00 Test Item Value Reference Range Interpretation Comments erythrocyte (RBC) count (test 4.20 X10E6/UL 3.77-5.28 code = 789-8) [facility]leukocyte count, [id number] 10:25:00 Test Item Value Reference Range Interpretation Comments leukocyte count, blood (test 7.1 X10E3/UL 3.4-10.8 code = 6690-2) [facility] HospitalCD4/CD8 [id number] 10:25:00 Test Item Value Reference Range Interpretation Comments CD4/CD8 ratio (test code = 05724) 1.00 0.92-3.72 [facility] HospitalT-suppressor cells (CD8) as percent of blood lymphocytes 2019-06-07 10:25:00 Test Item Value Reference Range Interpretation Comments T-suppressor cells (CD8) as percent of 27.5 % 12.0-35.5 blood lymphocytes (test code = 3517) [facility] Hospitalabsolute [id number] 10:25:00 Test Item Value Reference Range Interpretation Comments absolute CD8 (test code = 38096) 385 109-897 [facility] HospitalT-helper cells (CD4) as percent of blood lymphocytes 2019-06-07 10:25:00 Test Item Value Reference Range Interpretation Comments T-helper cells (CD4) as percent of 27.5 % 30.8-58.5 L blood lymphocytes (test code = 8123-2) [facility] HospitalT-helper cells (CD4) kwhnc4317-99-29 10:25:00 Test Item Value Reference Range Interpretation Comments T-helper cells (CD4) count (test code 385 /UL 359-1519 = 44969-0) [facility] Hospitalrapid plasma reagin antibody, uvpnz8443-82-08 08:54:00 Test Item Value Reference Range Interpretation Comments rapid plasma reagin antibody, Non Reactive Non Reactive serum (test code = 5291-0) [facility] HospitalHIV-1RNA, serum, by PCR, cvczsuvtrgpq6664-21-74 08:54:00 Test Item Value Reference Range Interpretation Comments HIV-1RNA, serum, by PCR, <20 copies/mL quantitative (test code = 58298) [facility] Hospitalalanine aminotransferase (SGPT), [id number] 08:54:00 Test Item Value Reference Range Interpretation Comments alanine aminotransferase (SGPT), serum 12 1/L 0-32 (test code = 1742-6) [facility] Hospitalaspartate aminotransferase (SGOT), uygqp6662-07-69 08:54:00 Test Item Value Reference Range Interpretation Comments aspartate aminotransferase (SGOT), 12 1/L 0-40 serum (test code = 1920-8) [facility] Hospitalalkaline phosphatase, [id number] 08:54:00 Test Item Value Reference Range Interpretation Comments alkaline phosphatase, serum (test 109 1/L 39-117 code = 1783-0) [facility] Hospitalbilirubin, serum, [id number] 08:54:00 Test Item Value Reference Range Interpretation Comments bilirubin, serum, total (test code 0.2 mg/dL 0.0-1.2 = 1975-2) [facility] Hospitalalbumin/globulin ratio, [id number] 08:54:00 Test Item Value Reference Range Interpretation Comments albumin/globulin ratio, serum (test 1.5 1.2-2.2 code = 1759-0) [facility] Healthglobulin, [id number] 08:54:00 Test Item Value Reference Range Interpretation Comments globulin, serum (test code = 2336-6) 2.6 1.5-4.5 [facility] Healthalbumin, [id number] 08:54:00 Test Item Value Reference Range Interpretation Comments albumin, serum (test code = 1751-7) 4.0 g/dL 3.5-5.5 [facility] Hospitalprotein, total, rrijo9423-78-48 08:54:00 Test Item Value Reference Range Interpretation Comments protein, total, serum (test code = 6.6 g/dL 6.0-8.5 2885-2) [facility] Hospitalcalcium, pmpot7813-70-23 08:54:00 Test Item Value Reference Range Interpretation Comments calcium, serum (test code = 1999-) 9.3 mg/dL 8.7-10.2 [facility] Hospitalcarbon dioxide, venous [id number] 08:54:00 Test Item Value Reference Range Interpretation Comments carbon dioxide, venous blood (test 26 mmol/L code = 2026-1) [facility] [facility] [id number] 08:54:00 Test Item Value Reference Range Interpretation Comments chloride, serum (test code = 102 mmol/L 96-106 2075-0) [facility] Healthpotassium, [id number] 08:54:00 Test Item Value Reference Range Interpretation Comments potassium, serum (test code = 4.8 mmol/L 3.5-5.2 2823-3) [facility]alsodium, [id number] 08:54:00 Test Item Value Reference Range Interpretation Comments sodium, serum (test code = 2951-2) 143 mmol/L 134-144 [facility]urea nitrogen/creatinine ratio, [id number] 08:54:00 Test Item Value Reference Range Interpretation Comments urea nitrogen/creatinine ratio, serum 11 -23 (test code = 3097-3) [facility] HealtheGFR if Hwihphzz5522-88-69 08:54:00 Test Item Value Reference Range Interpretation Comments eGFR if 113 >59 (test code = 50906-3) mL/min/((173/100).m2) [facility] HospitalEstimated Glomerular Filtration Rate (calc)2019-02-08 08:54:00 Test Item Value Reference Range Interpretation Comments Estimated Glomerular 98 >59 Filtration Rate (calc) mL/min/((173/100).m2 (test code = 27948-5) ) [facility]creatinine, [id number] 08:54:00 Test Item Value Reference Range Interpretation Comments creatinine, serum (test code = 0.64 mg/dL 0.57-1.00 2160-0) [facility]a nitrogen, [id number] 08:54:00 Test Item Value Reference Range Interpretation Comments urea nitrogen, blood (test code = 7 mg/dL 6-24 3094-0) [facility] Hospitalblood glucose, yshcln0080-22-69 08:54:00 Test Item Value Reference Range Interpretation Comments blood glucose, random (test code = 157 mg/dL 65-99 H 2339-0) [facility] Hospitalimmature granulocytes, percentage of total cells, blood 2019-02-08 08:54:00 Test Item Value Reference Range Interpretation Comments immature granulocytes, percentage of 0 % total cells, blood (test code = 05828-0) [facility] Hospitalbasophil count, zzeltdhw7953-35-90 08:54:00 Test Item Value Reference Range Interpretation Comments basophil count, absolute (test 0.0 x10E3/uL 0.0-0.2 code = 27881-8) [facility] HealthEosinophil Absolute [id number] 08:54:00 Test Item Value Reference Range Interpretation Comments Eosinophil Absolute Count (test 0.2 X10E3/UL 0.0-0.4 code = 64837-5) [facility] Hospitalmonocyte count, blood, mwgzfvpdo8543-77-61 08:54:00 Test Item Value Reference Range Interpretation Comments monocyte count, blood, automated 0.6 X10E3/UL 0.1-0.9 (test code = 742-7) [facility]allymphocyte count, blood, xlubnrlxi4744-48-00 08:54:00 Test Item Value Reference Range Interpretation Comments lymphocyte count, blood, 1.2 X10E3/UL 0.7-3.1 automated (test code = 731-0) [facility] HospitalAbsolute Vsgeqnxzpzw9662-78-44 08:54:00 Test Item Value Reference Range Interpretation Comments Absolute Neutrophils (test code 6.1 X10E3/UL 1.4-7.0 = 78914-7) [facility] Hospitalbasophils as percent of blood pbifxzgwxm7959-97-24 08:54:00 Test Item Value Reference Range Interpretation Comments basophils as percent of blood 0 % leukocytes (test code = 707-0) [facility] Healtheosinophils as percent of blood nikllqxwgd3453-15-35 08:54:00 Test Item Value Reference Range Interpretation Comments eosinophils as percent of blood 2 % leukocytes (test code = 713-8) [facility] Healthmonocytes as percent of blood wkjwhmbpqe6082-49-51 08:54:00 Test Item Value Reference Range Interpretation Comments monocytes as percent of blood 8 % leukocytes (test code = 5905-5) [facility]allymphocytes as percent of blood ogahgqxxre4738-13-78 08:54:00 Test Item Value Reference Range Interpretation Comments lymphocytes as percent of blood 14 % leukocytes (test code = 736-9) [facility] Hospitalneutrophils as percent of blood votgzwpdoz7331-87-48 08:54:00 Test Item Value Reference Range Interpretation Comments neutrophils as percent of blood 76 % leukocytes (test code = 770-8) [facility] Hospitalplatelet bxswx5588-02-02 08:54:00 Test Item Value Reference Range Interpretation Comments platelet count (test code = 213 X10E3/UL 150-379 777-3) [facility] Hospitalred blood cell distribution hqhmr8767-64-53 08:54:00 Test Item Value Reference Range Interpretation Comments red blood cell distribution width 13.6 % 12.3-15.4 (test code = 788-0) [facility] corpuscular hemoglobin concentration, [id number] 08:54:00 Test Item Value Reference Range Interpretation Comments mean corpuscular hemoglobin 33.7 G/DL 31.5-35.7 concentration, RBC (test code = 786-4) [facility] corpuscular hemoglobin, [id number] 08:54:00 Test Item Value Reference Range Interpretation Comments mean corpuscular hemoglobin, RBC 33.9 pg 26.6-33.0 H (test code = 785-6) [facility] corpuscular volume, [id number] 08:54:00 Test Item Value Reference Range Interpretation Comments mean corpuscular volume, RBC (test 101 fL 79-97 H code = 787-2) [facility] Hospitalhematocrit, [id number] 08:54:00 Test Item Value Reference Range Interpretation Comments hematocrit, blood (test code = 4544-3) 43.3 % 34.0-46.6 [facility]hemoglobin, [id number] 08:54:00 Test Item Value Reference Range Interpretation Comments hemoglobin, blood (test code = 14.6 g/dL 11.1-15.9 718-7) [facility] Hospitalerythrocyte (RBC) [id number] 08:54:00 Test Item Value Reference Range Interpretation Comments erythrocyte (RBC) count (test 4.31 X10E6/UL 3.77-5.28 code = 789-8) [facility]leukocyte count, [id number] 08:54:00 Test Item Value Reference Range Interpretation Comments leukocyte count, blood (test 8.0 X10E3/UL 3.4-10.8 code = 6690-2) [facility] HospitalCD4/CD8 swidg4591-30-24 08:54:00 Test Item Value Reference Range Interpretation Comments CD4/CD8 ratio (test code = 71580) 1.08 0.92-3.72 [facility] HospitalT-suppressor cells (CD8) as percent of blood lymphocytes 2019-02-08 08:54:00 Test Item Value Reference Range Interpretation Comments T-suppressor cells (CD8) as percent of 28.6 % 12.0-35.5 blood lymphocytes (test code = 3517) [facility] Hospitalabsolute [id number] 08:54:00 Test Item Value Reference Range Interpretation Comments absolute CD8 (test code = 76300) 343 109-897 [facility] HospitalT-helper cells (CD4) as percent of blood lymphocytes 2019-02-08 08:54:00 Test Item Value Reference Range Interpretation Comments T-helper cells (CD4) as percent of 30.9 % 30.8-58.5 blood lymphocytes (test code = 8123-2) [facility] HospitalT-helper cells (CD4) bcmoh6739-40-08 08:54:00 Test Item Value Reference Range Interpretation Comments T-helper cells (CD4) count (test code 371 /UL 359-1519 = 76446-4) [facility] HospitalLDL cholesterol, [id number] 08:51:00 Test Item Value Reference Range Interpretation Comments LDL cholesterol, serum (test code = 45 mg/dL 0-99 2088-1) [facility] Hospitalvery low density ejfksdftxhos2466-63-53 08:51:00 Test Item Value Reference Range Interpretation Comments very low density lipoproteins (test 38 mg/dL 5-40 code = 2091-7) [facility] HospitalHDL cholesterol, wlspw2806-29-50 08:51:00 Test Item Value Reference Range Interpretation Comments HDL cholesterol, serum (test code = 36 mg/dL >39 L 2084-9) [facility] Hospitaltriglyceride, serum, dfsnlrr4742-02-81 08:51:00 Test Item Value Reference Range Interpretation Comments triglyceride, serum, fasting (test 188 mg/dL 0-149 H code = 2571-8) [facility] Hospitalcholesterol, [id number] 08:51:00 Test Item Value Reference Range Interpretation Comments cholesterol, serum (test code = 119 mg/dL 479-762 1488-3) [facility] [id number] 02:25:00 Test Item Value Reference Range Interpretation Comments SODIUM (test code = NA) 145 mEq/L 134-147 N POTASSIUM (test code = 4.1 mEq/L 3.4-5.0 N K) CHLORIDE (test code = 106 mEq/L 100-108 N CL) CARBON DIOXIDE (test 34 mEq/L 21-33 H code = CO2) ANION GAP (test code = 9 0-20 N GAP) GLUCOSE (test code = 84 mg/dL 70-110 N GLU) BLOOD UREA NITROGEN 19 mg/dL 7-18 H (test code = BUN) GLOMERULAR FILTRATION 85.9 90-95 L Units of measure = RATE (test code = GFR) ml/mi n/1.73 m2 CREATININE (test code = 0.7 mg/dL 0.6-1.3 N CREAT) CALCIUM (test code = 8.4 mg/dL 8.0-10.5 N CA) [facility] PHONE# for [phone] or [phone] PHONE , FAX# cbc W/AUTO [id number] 02:13:00 Test Item Value Reference Range Interpretation Comments WHITE BLOOD CELL (test code = 6.93 x10 3/uL 4.5-11.0 N WBC) RED BLOOD CELL (test code = 3.80 x10 6/uL 3.54-5.02 N RBC) HEMOGLOBIN (test code = HGB) 13.1 g/dL 11.0-15.0 N HEMATOCRIT (test code = HCT) 40.9 % 33.0-45.0 N MEAN CELL VOLUME (test code = 107.6 fL 81.0-99.0 H MCV) MEAN CELL HGB (test code = MCH) 34.5 pg 27.0-33.0 H MEAN CELL HGB CONCETRATION 32.0 g/dL 33.0-37.0 L (test code = MCHC) RED CELL DISTRIBUTION WIDTH CV 12.2 % 11.5-14.5 N (test code = RDW) RED CELL DISTRIBUTION WIDTH SD 49.3 fL 37.0-54.0 N (test code = RDW-SD) PLATELET COUNT (test code = 180 x10 3/uL 150-400 N PLT) MEAN PLATELET VOLUME (test code 10.5 fL 7.0-9.0 H = MPV) NEUTROPHIL % (test code = NT%) 58.1 % 56.0-77.0 N IMMATURE GRANULOCYTE % (test 0.3 % 0.0-2.0 N code = IG%) LYMPHOCYTE % (test code = LY%) 30.7 % 14.0-32.0 N MONOCYTE % (test code = MO%) 9.1 % 4.8-9.0 H EOSINOPHIL % (test code = EO%) 1.4 % 0.3-3.7 N BASOPHIL % (test code = BA%) 0.4 % 0.0-2.0 N NUCLEATED RBC % (test code = 0.0 % 0-0 N NRBC%) NEUTROPHIL # (test code = NT#) 4.02 x10 3/uL 2.0-7.6 N IMMATURE GRANULOCYTE # (test 0.02 x10 3/uL 0.00-0.03 N code = IG#) LYMPHOCYTE # (test code = LY#) 2.13 x10 3/uL 1.0-3.8 N MONOCYTE # (test code = MO#) 0.63 x10 3/uL 0.1-0.8 N EOSINOPHIL # (test code = EO#) 0.10 x10 3/uL 0.0-0.2 N BASOPHIL # (test code = BA#) 0.03 x10 3/uL 0.0-0.2 N NUCLEATED RBC # (test code = 0.00 x10 3/uL 0.0-0.1 N NRBC#) MANUAL DIFF REQUIRED (test code NO = MDIFF) [facility] PHONE# for [phone] or [phone] PHONE , FAX# Quantiferon Gold TB blood test for tuberculosis [id number] 10:19:59 Test Item Value Reference Range Interpretation Comments Quantiferon Gold TB blood test for negative tuberculosis screening (test code = 97117-9) [facility]Quant[facility] TB blood test for tuberculosis screening 2018-09-26 08:58:00 Test Item Value Reference Range Interpretation Comments Quantiferon Gold TB blood test for Negative Negative tuberculosis screening (test code = 51289-4) [facility] Hospitalhepatitis C antibody, [id number] 08:52:00 Test Item Value Reference Range Interpretation Comments hepatitis C antibody, serum (test code 0.3 0.0-0.9 = 5199-5) [facility] Hospitalrapid plasma reagin antibody, [id number] 08:52:00 Test Item Value Reference Range Interpretation Comments rapid plasma reagin antibody, Non Reactive Non Reactive serum (test code = 5291-0) [facility] HospitalHIV-1RNA, serum, by PCR, [id number] 08:52:00 Test Item Value Reference Range Interpretation Comments HIV-1RNA, serum, by PCR, <20 copies/mL quantitative (test code = 78701) [facility] HospitalLDL cholesterol, [id number] 08:52:00 Test Item Value Reference Range Interpretation Comments LDL cholesterol, serum (test code = 69 mg/dL 0-99 2088-1) [facility] low density cukufqtzofeb9806-53-55 08:52:00 Test Item Value Reference Range Interpretation Comments very low density lipoproteins (test 29 mg/dL 5-40 code = 2091-7) [facility] HospitalHDL cholesterol, [id number] 08:52:00 Test Item Value Reference Range Interpretation Comments HDL cholesterol, serum (test code = 41 mg/dL >39 2084-9) [facility] Hospitaltriglyceride, serum, [id number] 08:52:00 Test Item Value Reference Range Interpretation Comments triglyceride, serum, fasting (test 143 mg/dL 0-149 code = 2571-8) [facility]cholesterol, [id number] 08:52:00 Test Item Value Reference Range Interpretation Comments cholesterol, serum (test code = 139 mg/dL 271-173 3367-3) [facility] Hospitalalanine aminotransferase (SGPT), [id number] 08:52:00 Test Item Value Reference Range Interpretation Comments alanine aminotransferase (SGPT), serum 11 1/L 0-32 (test code = 1742-6) [facility] Hospitalaspartate aminotransferase (SGOT), nrymx8101-11-68 08:52:00 Test Item Value Reference Range Interpretation Comments aspartate aminotransferase (SGOT), 12 1/L 0-40 serum (test code = 1920-8) [facility] Hospitalalkaline phosphatase, [id number] 08:52:00 Test Item Value Reference Range Interpretation Comments alkaline phosphatase, serum (test 141 1/L 39-117 H code = 1783-0) [facility] Hospitalbilirubin, serum, [id number] 08:52:00 Test Item Value Reference Range Interpretation Comments bilirubin, serum, total (test code 0.3 mg/dL 0.0-1.2 = 1975-2) [facility] Hospitalalbumin/globulin ratio, kexpn3548-00-04 08:52:00 Test Item Value Reference Range Interpretation Comments albumin/globulin ratio, serum (test 1.7 1.2-2.2 code = 1759-0) [facility] Healthglobulin, [id number] 08:52:00 Test Item Value Reference Range Interpretation Comments globulin, serum (test code = 2336-6) 2.5 1.5-4.5 [facility] Healthalbumin, [id number] 08:52:00 Test Item Value Reference Range Interpretation Comments albumin, serum (test code = 1751-7) 4.2 g/dL 3.5-5.5 [facility] Hospitalprotein, total, [id number] 08:52:00 Test Item Value Reference Range Interpretation Comments protein, total, serum (test code = 6.7 g/dL 6.0-8.5 2885-2) [facility] Hospitalcalcium, vgaeg7748-63-67 08:52:00 Test Item Value Reference Range Interpretation Comments calcium, serum (test code = 2000-8) 9.4 mg/dL 8.7-10.2 [facility] Hospitalcarbon dioxide, venous [id number] 08:52:00 Test Item Value Reference Range Interpretation Comments carbon dioxide, venous blood (test 26 mmol/L code = 2027-1) [facility] Healthchloride, clsqg6231-26-32 08:52:00 Test Item Value Reference Range Interpretation Comments chloride, serum (test code = 98 mmol/L 96-106 2075-0) [facility] Healthpotassium, fzrii2909-18-71 08:52:00 Test Item Value Reference Range Interpretation Comments potassium, serum (test code = 4.4 mmol/L 3.5-5.2 2823-3) [facility] Healthsodium, idaqj2585-83-60 08:52:00 Test Item Value Reference Range Interpretation Comments sodium, serum (test code = 2951-2) 140 mmol/L 134-144 [facility] Hospitalurea nitrogen/creatinine ratio, [id number] 08:52:00 Test Item Value Reference Range Interpretation Comments urea nitrogen/creatinine ratio, serum 12 9-23 (test code = 3097-3) [facility] HealtheGFR if Suyccvjl7329-70-04 08:52:00 Test Item Value Reference Range Interpretation Comments eGFR if 98 >59 (test code = 88963-7) mL/min/((173/100).m2) [facility] HospitalEstimated Glomerular Filtration Rate (calc)2018-09-26 08:52:00 Test Item Value Reference Range Interpretation Comments Estimated Glomerular 85 >59 Filtration Rate (calc) mL/min/((173/100).m2 (test code = 97888-1) ) [facility] Hospitalcreatinine, [id number] 08:52:00 Test Item Value Reference Range Interpretation Comments creatinine, serum (test code = 0.77 mg/dL 0.57-1.00 2160-0) [facility]urea nitrogen, rmjox0253-79-48 08:52:00 Test Item Value Reference Range Interpretation Comments urea nitrogen, blood (test code = 9 mg/dL 6-24 3094-0) [facility] Hospitalblood glucose, kkaptd1848-78-17 08:52:00 Test Item Value Reference Range Interpretation Comments blood glucose, random (test code = 129 mg/dL 65-99 H 2339-0) [facility] Hospitalimmature granulocytes, percentage of total cells, blood 2018-09-26 08:52:00 Test Item Value Reference Range Interpretation Comments immature granulocytes, percentage of 0 % total cells, blood (test code = 30716-8) [facility] Hospitalbasophil count, xeuniiqm1992-95-47 08:52:00 Test Item Value Reference Range Interpretation Comments basophil count, absolute (test 0.0 x10E3/uL 0.0-0.2 code = 09789-2) [facility] HealthEosinophil Absolute [id number] 08:52:00 Test Item Value Reference Range Interpretation Comments Eosinophil Absolute Count (test 0.2 X10E3/UL 0.0-0.4 code = 57281-4) [facility] Healthmonocyte count, blood, suchommkf1111-52-29 08:52:00 Test Item Value Reference Range Interpretation Comments monocyte count, blood, automated 0.6 X10E3/UL 0.1-0.9 (test code = 742-7) [facility] Hospitallymphocyte count, blood, jzivclmmc8360-10-52 08:52:00 Test Item Value Reference Range Interpretation Comments lymphocyte count, blood, 1.7 X10E3/UL 0.7-3.1 automated (test code = 731-0) [facility] HealthAbsolute Ahodropiypw8015-77-38 08:52:00 Test Item Value Reference Range Interpretation Comments Absolute Neutrophils (test code 4.3 X10E3/UL 1.4-7.0 = 39307-5) [facility] Hospitalbasophils as percent of blood qvrlwijmgp8738-36-86 08:52:00 Test Item Value Reference Range Interpretation Comments basophils as percent of blood 0 % leukocytes (test code = 707-0) [facility] Healtheosinophils as percent of blood jvbkoofbzd5355-29-10 08:52:00 Test Item Value Reference Range Interpretation Comments eosinophils as percent of blood 3 % leukocytes (test code = 713-8) [facility] Healthmonocytes as percent of blood nwubofkckx0423-91-70 08:52:00 Test Item Value Reference Range Interpretation Comments monocytes as percent of blood 8 % leukocytes (test code = 5905-5) [facility]allymphocytes as percent of blood dzagilpmmr4338-79-96 08:52:00 Test Item Value Reference Range Interpretation Comments lymphocytes as percent of blood 25 % leukocytes (test code = 736-9) [facility] Hospitalneutrophils as percent of blood nepfdahlhc0120-28-04 08:52:00 Test Item Value Reference Range Interpretation Comments neutrophils as percent of blood 64 % leukocytes (test code = 770-8) [facility] Hospitalplatelet mclyx7351-46-43 08:52:00 Test Item Value Reference Range Interpretation Comments platelet count (test code = 173 X10E3/UL 150-379 777-3) [facility] Hospitalred blood cell distribution bzfoz9101-98-46 08:52:00 Test Item Value Reference Range Interpretation Comments red blood cell distribution width 12.4 % 12.3-15.4 (test code = 788-0) [facility], [id number] 08:52:00 Test Item Value Reference Range Interpretation Comments mean corpuscular hemoglobin 34.0 G/DL 31.5-35.7 concentration, RBC (test code = 786-4) [facility] hemoglobin, [id number] 08:52:00 Test Item Value Reference Range Interpretation Comments mean corpuscular hemoglobin, RBC 34.7 pg 26.6-33.0 H (test code = 785-6) [facility] volume, [id number] 08:52:00 Test Item Value Reference Range Interpretation Comments mean corpuscular volume, RBC (test 102 fL 79-97 H code = 787-2) [facility] Hospitalhematocrit, jxwvm6739-84-15 08:52:00 Test Item Value Reference Range Interpretation Comments hematocrit, blood (test code = 4544-3) 40.9 % 34.0-46.6 [facility] Hospitalhemoglobin, ejhqz7257-01-18 08:52:00 Test Item Value Reference Range Interpretation Comments hemoglobin, blood (test code = 13.9 g/dL 11.1-15.9 718-7) [facility] Hospitalerythrocyte (RBC) bqssz3973-85-10 08:52:00 Test Item Value Reference Range Interpretation Comments erythrocyte (RBC) count (test 4.01 X10E6/UL 3.77-5.28 code = 789-8) [facility] Hospitalleukocyte count, qhdhc5059-72-60 08:52:00 Test Item Value Reference Range Interpretation Comments leukocyte count, blood (test 6.8 X10E3/UL 3.4-10.8 code = 6690-2) [facility] HospitalCD4/CD8 nuftn4710-51-06 08:52:00 Test Item Value Reference Range Interpretation Comments CD4/CD8 ratio (test code = 70784) 0.98 0.92-3.72 [facility] HospitalT-suppressor cells (CD8) as percent of blood lymphocytes 2018-09-26 08:52:00 Test Item Value Reference Range Interpretation Comments T-suppressor cells (CD8) as percent of 26.4 % 12.0-35.5 blood lymphocytes (test code = 3517) [facility] Hospitalabsolute [id number] 08:52:00 Test Item Value Reference Range Interpretation Comments absolute CD8 (test code = 93249) 449 109-897 [facility] HospitalT-helper cells (CD4) as percent of blood lymphocytes 2018-09-26 08:52:00 Test Item Value Reference Range Interpretation Comments T-helper cells (CD4) as percent of 25.9 % 30.8-58.5 L blood lymphocytes (test code = 8123-2) [facility] HospitalT-helper cells (CD4) zcgjc6169-71-64 08:52:00 Test Item Value Reference Range Interpretation Comments T-helper cells (CD4) count (test code 440 /UL 359-1519 = 89421-3) [facility] Hospitalrapid plasma reagin antibody, eogxs9954-98-88 09:22:00 Test Item Value Reference Range Interpretation Comments rapid plasma reagin antibody, Non Reactive Non Reactive serum (test code = 5291-0) [facility] HospitalHIV-1RNA, serum, by PCR, oihdiwnurbtf9345-31-93 09:22:00 Test Item Value Reference Range Interpretation Comments HIV-1RNA, serum, by PCR, <20 copies/mL quantitative (test code = 21900) [facility] HospitalLDL cholesterol, [id number] 09:22:00 Test Item Value Reference Range Interpretation Comments LDL cholesterol, serum (test code = 63 mg/dL 0-99 2088-1) [facility] low density ezhtgwvjaphi1981-07-71 09:22:00 Test Item Value Reference Range Interpretation Comments very low density lipoproteins (test 53 mg/dL 5-40 H code = 2091-7) [facility] HospitalHDL cholesterol, xyfdb8599-57-06 09:22:00 Test Item Value Reference Range Interpretation Comments HDL cholesterol, serum (test code = 38 mg/dL >39 L 5-9) [facility] Hospitaltriglyceride, serum, outydvg5966-55-37 09:22:00 Test Item Value Reference Range Interpretation Comments triglyceride, serum, fasting (test 265 mg/dL 0-149 H code = 2571-8) [facility] Hospitalcholesterol, [id number] 09:22:00 Test Item Value Reference Range Interpretation Comments cholesterol, serum (test code = 154 mg/dL 453-046 5620-3) [facility] Hospitalalanine aminotransferase (SGPT), mkjga3403-93-61 09:22:00 Test Item Value Reference Range Interpretation Comments alanine aminotransferase (SGPT), serum 6 1/L 0-32 (test code = 1742-6) [facility] Hospitalaspartate aminotransferase (SGOT), [id number] 09:22:00 Test Item Value Reference Range Interpretation Comments aspartate aminotransferase (SGOT), 8 1/L 0-40 serum (test code = 1920-8) [facility] Hospitalalkaline phosphatase, [id number] 09:22:00 Test Item Value Reference Range Interpretation Comments alkaline phosphatase, serum (test code 93 1/L 39-117 = 1783-0) [facility] Hospitalbilirubin, serum, [id number] 09:22:00 Test Item Value Reference Range Interpretation Comments bilirubin, serum, total (test code 0.2 mg/dL 0.0-1.2 = 1975-2) [facility], [id number] 09:22:00 Test Item Value Reference Range Interpretation Comments albumin/globulin ratio, serum (test 1.3 1.2-2.2 code = 1759-0) [facility] Healthglobulin, [id number] 09:22:00 Test Item Value Reference Range Interpretation Comments globulin, serum (test code = 2336-6) 3.1 1.5-4.5 [facility]albumin, [id number] 09:22:00 Test Item Value Reference Range Interpretation Comments albumin, serum (test code = 1751-7) 4.0 g/dL 3.5-5.5 [facility] Healthprotein, total, [id number] 09:22:00 Test Item Value Reference Range Interpretation Comments protein, total, serum (test code = 7.1 g/dL 6.0-8.5 2885-2) [facility]calcium, [id number] 09:22:00 Test Item Value Reference Range Interpretation Comments calcium, serum (test code = 1999-8) 9.6 mg/dL 8.7-10.2 [facility]carbon dioxide, venous [id number] 09:22:00 Test Item Value Reference Range Interpretation Comments carbon dioxide, venous blood (test 28 mmol/L 18-29 code = 7-1) [facility]chloride, [id number] 09:22:00 Test Item Value Reference Range Interpretation Comments chloride, serum (test code = 98 mmol/L 96-106 2075-0) [facility]potassium, [id number] 09:22:00 Test Item Value Reference Range Interpretation Comments potassium, serum (test code = 4.5 mmol/L 3.5-5.2 2823-3) [facility]alsodium, [id number] 09:22:00 Test Item Value Reference Range Interpretation Comments sodium, serum (test code = 2951-2) 140 mmol/L 134-144 [facility]urea nitrogen/creatinine ratio, [id number] 09:22:00 Test Item Value Reference Range Interpretation Comments urea nitrogen/creatinine ratio, serum 12 9-23 (test code = 3097-3) [facility] HealtheGFR if [id number] 09:22:00 Test Item Value Reference Range Interpretation Comments eGFR if 111 >59 (test code = 38800-2) mL/min/((173/100).m2) [facility] HospitalEstimated Glomerular Filtration Rate (calc)2018-02-07 09:22:00 Test Item Value Reference Range Interpretation Comments Estimated Glomerular 96 >59 Filtration Rate (calc) mL/min/((173/100).m2 (test code = 74197-9) ) [facility]creatinine, [id number] 09:22:00 Test Item Value Reference Range Interpretation Comments creatinine, serum (test code = 0.69 mg/dL 0.57-1.00 2160-0) [facility]urea nitrogen, [id number] 09:22:00 Test Item Value Reference Range Interpretation Comments urea nitrogen, blood (test code = 8 mg/dL 6-24 3094-0) [facility]blood glucose, isfbom1682-14-13 09:22:00 Test Item Value Reference Range Interpretation Comments blood glucose, random (test code = 154 mg/dL 65-99 H 2339-0) [facility] Hospitalimmature granulocytes, percentage of total cells, blood 2018-02-07 09:22:00 Test Item Value Reference Range Interpretation Comments immature granulocytes, percentage of 0 % total cells, blood (test code = 95142-8) [facility]basophil count, osnpqhnp8298-49-64 09:22:00 Test Item Value Reference Range Interpretation Comments basophil count, absolute (test 0.0 x10E3/uL 0.0-0.2 code = 27935-5) [facility] HospitalEosinophil Absolute Viali6479-12-11 09:22:00 Test Item Value Reference Range Interpretation Comments Eosinophil Absolute Count (test 0.1 X10E3/UL 0.0-0.4 code = 96440-4) [facility] Hospitalmonocyte count, blood, rkycotzwl1327-89-20 09:22:00 Test Item Value Reference Range Interpretation Comments monocyte count, blood, automated 0.4 X10E3/UL 0.1-0.9 (test code = 742-7) [facility] Hospitallymphocyte count, blood, tdblnxbfx9167-55-92 09:22:00 Test Item Value Reference Range Interpretation Comments lymphocyte count, blood, 1.4 X10E3/UL 0.7-3.1 automated (test code = 731-0) [facility] HospitalAbsolute Uwdsbikytkz8073-22-87 09:22:00 Test Item Value Reference Range Interpretation Comments Absolute Neutrophils (test code 3.3 X10E3/UL 1.4-7.0 = 35401-1) [facility] Hospitalbasophils as percent of blood ahbgyynmjw9456-78-58 09:22:00 Test Item Value Reference Range Interpretation Comments basophils as percent of blood 0 % leukocytes (test code = 707-0) [facility]aleosinophils as percent of blood nmodeodonx6879-95-10 09:22:00 Test Item Value Reference Range Interpretation Comments eosinophils as percent of blood 2 % leukocytes (test code = 713-8) [facility] Healthmonocytes as percent of blood zatsvdwcbh3949-16-33 09:22:00 Test Item Value Reference Range Interpretation Comments monocytes as percent of blood 8 % leukocytes (test code = 5905-5) [facility] Hospitallymphocytes as percent of blood boltxpjtre8433-21-70 09:22:00 Test Item Value Reference Range Interpretation Comments lymphocytes as percent of blood 26 % leukocytes (test code = 736-9) [facility] Hospitalneutrophils as percent of blood hsqhxdjcgy5593-93-97 09:22:00 Test Item Value Reference Range Interpretation Comments neutrophils as percent of blood 64 % leukocytes (test code = 770-8) [facility] Hospitalplatelet [id number] 09:22:00 Test Item Value Reference Range Interpretation Comments platelet count (test code = 194 X10E3/UL 150-379 777-3) [facility] Hospitalred blood cell distribution bwqbk0007-43-87 09:22:00 Test Item Value Reference Range Interpretation Comments red blood cell distribution width 14.1 % 12.3-15.4 (test code = 788-0) [facility] corpuscular hemoglobin concentration, [id number] 09:22:00 Test Item Value Reference Range Interpretation Comments mean corpuscular hemoglobin 33.9 G/DL 31.5-35.7 concentration, RBC (test code = 786-4) [facility] corpuscular hemoglobin, [id number] 09:22:00 Test Item Value Reference Range Interpretation Comments mean corpuscular hemoglobin, RBC 34.2 pg 26.6-33.0 H (test code = 785-6) [facility] corpuscular volume, [id number] 09:22:00 Test Item Value Reference Range Interpretation Comments mean corpuscular volume, RBC (test 101 fL 79-97 H code = 787-2) [facility] Hospitalhematocrit, axlrn0432-96-88 09:22:00 Test Item Value Reference Range Interpretation Comments hematocrit, blood (test code = 4544-3) 41.3 % 34.0-46.6 [facility]hemoglobin, [id number] 09:22:00 Test Item Value Reference Range Interpretation Comments hemoglobin, blood (test code = 14.0 g/dL 11.1-15.9 718-7) [facility] Hospitalerythrocyte (RBC) [id number] 09:22:00 Test Item Value Reference Range Interpretation Comments erythrocyte (RBC) count (test 4.09 X10E6/UL 3.77-5.28 code = 789-8) [facility]leukocyte count, dzqpt5238-18-48 09:22:00 Test Item Value Reference Range Interpretation Comments leukocyte count, blood (test 5.1 X10E3/UL 3.4-10.8 code = 6690-2) [facility] HospitalCD4/CD8 bqvlu0357-60-44 09:22:00 Test Item Value Reference Range Interpretation Comments CD4/CD8 ratio (test code = 28476) 0.85 0.92-3.72 L [facility] HospitalT-suppressor cells (CD8) as percent of blood lymphocytes 2018-02-07 09:22:00 Test Item Value Reference Range Interpretation Comments T-suppressor cells (CD8) as percent of 29.5 % 12.0-35.5 blood lymphocytes (test code = 3517) [facility] Hospitalabsolute [id number] 09:22:00 Test Item Value Reference Range Interpretation Comments absolute CD8 (test code = 67304) 413 109-897 [facility] HospitalT-helper cells (CD4) as percent of blood lymphocytes 2018-02-07 09:22:00 Test Item Value Reference Range Interpretation Comments T-helper cells (CD4) as percent of 25.0 % 30.8-58.5 L blood lymphocytes (test code = 8123-2) [facility] HospitalT-helper cells (CD4) lmnje9001-84-81 09:22:00 Test Item Value Reference Range Interpretation Comments T-helper cells (CD4) count (test code 350 /UL 359-1519 L = 00335-2) [facility] Hospitalrapid plasma reagin antibody, [id number] 10:27:00 Test Item Value Reference Range Interpretation Comments rapid plasma reagin antibody, Non Reactive Non Reactive serum (test code = 5291-0) [facility] HospitalHIV-1RNA, serum, by PCR, fpifcvzxwvhz8076-47-35 10:27:00 Test Item Value Reference Range Interpretation Comments HIV-1RNA, serum, by PCR, quantitative 50 /mL (test code = 46315) [facility] HospitalLDL cholesterol, [id number] 10:27:00 Test Item Value Reference Range Interpretation Comments LDL cholesterol, serum (test code = 63 mg/dL 0-99 2088-1) [facility] Hospitalvery low density fihcttovzzeh7409-56-72 10:27:00 Test Item Value Reference Range Interpretation Comments very low density lipoproteins (test 32 mg/dL 5-40 code = 2091-7) [facility] HospitalHDL cholesterol, xapbt1079-96-99 10:27:00 Test Item Value Reference Range Interpretation Comments HDL cholesterol, serum (test code = 47 mg/dL >39 2084-9) [facility] Hospitaltriglyceride, serum, [id number] 10:27:00 Test Item Value Reference Range Interpretation Comments triglyceride, serum, fasting (test 162 mg/dL 0-149 H code = 2571-8) [facility] Hospitalcholesterol, [id number] 10:27:00 Test Item Value Reference Range Interpretation Comments cholesterol, serum (test code = 142 mg/dL 915-261 6776-3) [facility] Hospitalalanine aminotransferase (SGPT), [id number] 10:27:00 Test Item Value Reference Range Interpretation Comments alanine aminotransferase (SGPT), serum 9 1/L 0-32 (test code = 1742-6) [facility] Hospitalaspartate aminotransferase (SGOT), [id number] 10:27:00 Test Item Value Reference Range Interpretation Comments aspartate aminotransferase (SGOT), 9 1/L 0-40 serum (test code = 1920-8) [facility] Hospitalalkaline phosphatase, [id number] 10:27:00 Test Item Value Reference Range Interpretation Comments alkaline phosphatase, serum (test 100 1/L 39-117 code = 1783-0) [facility] Hospitalbilirubin, serum, [id number] 10:27:00 Test Item Value Reference Range Interpretation Comments bilirubin, serum, total (test code 0.3 mg/dL 0.0-1.2 = 1975-2) [facility] Healthalbumin/globulin ratio, [id number] 10:27:00 Test Item Value Reference Range Interpretation Comments albumin/globulin ratio, serum (test 1.4 1.2-2.2 code = 1759-0) [facility] Healthglobulin, [id number] 10:27:00 Test Item Value Reference Range Interpretation Comments globulin, serum (test code = 2336-6) 2.9 1.5-4.5 [facility] Healthalbumin, [id number] 10:27:00 Test Item Value Reference Range Interpretation Comments albumin, serum (test code = 1751-7) 4.2 g/dL 3.5-5.5 [facility] Healthprotein, total, [id number] 10:27:00 Test Item Value Reference Range Interpretation Comments protein, total, serum (test code = 7.1 g/dL 6.0-8.5 2885-2) [facility] Healthcalcium, [id number] 10:27:00 Test Item Value Reference Range Interpretation Comments calcium, serum (test code = 1999-) 9.6 mg/dL 8.7-10.2 [facility] Hospitalcarbon dioxide, venous [id number] 10:27:00 Test Item Value Reference Range Interpretation Comments carbon dioxide, venous blood (test 27 mmol/L -29 code = 2026-1) [facility] Hospitalchloride, [id number] 10:27:00 Test Item Value Reference Range Interpretation Comments chloride, serum (test code = 96 mmol/L 96-106 2074-0) [facility] Healthpotassium, [id number] 10:27:00 Test Item Value Reference Range Interpretation Comments potassium, serum (test code = 5.1 mmol/L 3.5-5.2 2823-3) [facility] Healthsodium, [id number] 10:27:00 Test Item Value Reference Range Interpretation Comments sodium, serum (test code = 2951-2) 138 mmol/L 134-144 [facility]urea nitrogen/creatinine ratio, [id number] 10:27:00 Test Item Value Reference Range Interpretation Comments urea nitrogen/creatinine ratio, serum 14 9-23 (test code = 3097-3) [facility] HospitaleGFR if Oiufatlv5312-70-99 10:27:00 Test Item Value Reference Range Interpretation Comments eGFR if 86 >59 (test code = 74672-8) mL/min/((173/100).m2) [facility] HospitalEstimated Glomerular Filtration Rate (calc)2017-10-13 10:27:00 Test Item Value Reference Range Interpretation Comments Estimated Glomerular 74 >59 Filtration Rate (calc) mL/min/((173/100).m2 (test code = 88645-0) ) [facility] Hospitalcreatinine, [id number] 10:27:00 Test Item Value Reference Range Interpretation Comments creatinine, serum (test code = 0.87 mg/dL 0.57-1.00 2160-0) [facility]urea nitrogen, [id number] 10:27:00 Test Item Value Reference Range Interpretation Comments urea nitrogen, blood (test code = 12 mg/dL 6-24 3094-0) [facility] Hospitalblood glucose, mnkmky1586-14-05 10:27:00 Test Item Value Reference Range Interpretation Comments blood glucose, random (test code = 119 mg/dL 65-99 H 2339-0) [facility] Hospitalimmature granulocytes, percentage of total cells, blood 2017-10-13 10:27:00 Test Item Value Reference Range Interpretation Comments immature granulocytes, percentage of 0 % total cells, blood (test code = 91483-5) [facility] Hospitalbasophil count, nnfeyevo1611-72-79 10:27:00 Test Item Value Reference Range Interpretation Comments basophil count, absolute (test 0.0 x10E3/uL 0.0-0.2 code = 71789-3) [facility] HospitalEosinophil Absolute [id number] 10:27:00 Test Item Value Reference Range Interpretation Comments Eosinophil Absolute Count (test 0.1 X10E3/UL 0.0-0.4 code = 83643-0) [facility] Hospitalmonocyte count, blood, [id number] 10:27:00 Test Item Value Reference Range Interpretation Comments monocyte count, blood, automated 0.5 X10E3/UL 0.1-0.9 (test code = 742-7) [facility]allymphocyte count, blood, gvsrrcfox4125-73-18 10:27:00 Test Item Value Reference Range Interpretation Comments lymphocyte count, blood, 1.7 X10E3/UL 0.7-3.1 automated (test code = 731-0) [facility] HospitalAbsolute Vszcafxsgap2234-36-60 10:27:00 Test Item Value Reference Range Interpretation Comments Absolute Neutrophils (test code 5.4 X10E3/UL 1.4-7.0 = 51977-9) [facility] Hospitalbasophils as percent of blood kdaeeiluxp1113-07-52 10:27:00 Test Item Value Reference Range Interpretation Comments basophils as percent of blood 0 % leukocytes (test code = 707-0) [facility]aleosinophils as percent of blood srucyfmaeu5092-78-55 10:27:00 Test Item Value Reference Range Interpretation Comments eosinophils as percent of blood 1 % leukocytes (test code = 713-8) [facility] Hospitalmonocytes as percent of blood psjbwjtabb2367-25-80 10:27:00 Test Item Value Reference Range Interpretation Comments monocytes as percent of blood 7 % leukocytes (test code = 5905-5) [facility] Hospitallymphocytes as percent of blood botyrqwnes6782-99-93 10:27:00 Test Item Value Reference Range Interpretation Comments lymphocytes as percent of blood 22 % leukocytes (test code = 736-9) [facility] Hospitalneutrophils as percent of blood gqpayzqubs7267-68-12 10:27:00 Test Item Value Reference Range Interpretation Comments neutrophils as percent of blood 70 % leukocytes (test code = 770-8) [facility] Hospitalplatelet dwzpr2308-48-06 10:27:00 Test Item Value Reference Range Interpretation Comments platelet count (test code = 193 X10E3/UL 150-379 777-3) [facility] Hospitalred blood cell distribution lrkmo1817-16-57 10:27:00 Test Item Value Reference Range Interpretation Comments red blood cell distribution width 13.7 % 12.3-15.4 (test code = 788-0) [facility] corpuscular hemoglobin concentration, [id number] 10:27:00 Test Item Value Reference Range Interpretation Comments mean corpuscular hemoglobin 35.0 G/DL 31.5-35.7 concentration, RBC (test code = 786-4) [facility], [id number] 10:27:00 Test Item Value Reference Range Interpretation Comments mean corpuscular hemoglobin, RBC 35.6 pg 26.6-33.0 H (test code = 785-6) [facility] Hospitalmean corpuscular volume, [id number] 10:27:00 Test Item Value Reference Range Interpretation Comments mean corpuscular volume, RBC (test 102 fL 79-97 H code = 787-2) [facility] Hospitalhematocrit, kvsdm4476-15-17 10:27:00 Test Item Value Reference Range Interpretation Comments hematocrit, blood (test code = 4544-3) 43.7 % 34.0-46.6 [facility] Hospitalhemoglobin, [id number] 10:27:00 Test Item Value Reference Range Interpretation Comments hemoglobin, blood (test code = 15.3 g/dL 11.1-15.9 718-7) [facility] Hospitalerythrocyte (RBC) [id number] 10:27:00 Test Item Value Reference Range Interpretation Comments erythrocyte (RBC) count (test 4.30 X10E6/UL 3.77-5.28 code = 789-8) [facility] Hospitalleukocyte count, [id number] 10:27:00 Test Item Value Reference Range Interpretation Comments leukocyte count, blood (test 7.7 X10E3/UL 3.4-10.8 code = 6690-2) [facility] HospitalCD4/CD8 hjnzf2455-27-14 10:27:00 Test Item Value Reference Range Interpretation Comments CD4/CD8 ratio (test code = 48149) 0.70 0.92-3.72 L [facility] HospitalT-suppressor cells (CD8) as percent of blood lymphocytes 2017-10-13 10:27:00 Test Item Value Reference Range Interpretation Comments T-suppressor cells (CD8) as percent of 27.8 % 12.0-35.5 blood lymphocytes (test code = 3517) [facility] Hospitalabsolute [id number] 10:27:00 Test Item Value Reference Range Interpretation Comments absolute CD8 (test code = 45894) 473 109-897 [facility] HospitalT-helper cells (CD4) as percent of blood lymphocytes 2017-10-13 10:27:00 Test Item Value Reference Range Interpretation Comments T-helper cells (CD4) as percent of 19.4 % 30.8-58.5 L blood lymphocytes (test code = 8123-2) [facility] HospitalT-helper cells (CD4) pekmt1016-72-49 10:27:00 Test Item Value Reference Range Interpretation Comments T-helper cells (CD4) count (test code 330 /UL 359-1519 L = 18076-4) [facility] Hospitalrapid plasma reagin antibody, syiuh0604-23-45 13:13:00 Test Item Value Reference Range Interpretation Comments rapid plasma reagin antibody, Non Reactive Non Reactive serum (test code = 5291-0) [facility] HospitalHIV-1RNA, serum, by PCR, zjxatnxjuslq6263-05-15 13:13:00 Test Item Value Reference Range Interpretation Comments HIV-1RNA, serum, by PCR, 30765 /mL quantitative (test code = 91849) [facility] HospitalLDL cholesterol, [id number] 13:13:00 Test Item Value Reference Range Interpretation Comments LDL cholesterol, serum (test code = 38 mg/dL 0-99 2088-1) [facility] Hospitalvery low density bnydruvcymus7193-26-20 13:13:00 Test Item Value Reference Range Interpretation Comments very low density lipoproteins (test 24 mg/dL 5-40 code = 2091-7) [facility] HospitalHDL cholesterol, tedup5131-30-59 13:13:00 Test Item Value Reference Range Interpretation Comments HDL cholesterol, serum (test code = 36 mg/dL >39 L 5-9) [facility] Hospitaltriglyceride, serum, rmebfjs3297-54-54 13:13:00 Test Item Value Reference Range Interpretation Comments triglyceride, serum, fasting (test 119 mg/dL 0-149 code = 2571-8) [facility] Hospitalcholesterol, bzhbj5301-52-71 13:13:00 Test Item Value Reference Range Interpretation Comments cholesterol, serum (test code = 98 mg/dL 100-199 L 3-3) [facility] Hospitalalanine aminotransferase (SGPT), [id number] 13:13:00 Test Item Value Reference Range Interpretation Comments alanine aminotransferase (SGPT), serum 19 1/L 0-32 (test code = 1742-6) [facility] Hospitalaspartate aminotransferase (SGOT), rduff1745-62-89 13:13:00 Test Item Value Reference Range Interpretation Comments aspartate aminotransferase (SGOT), 18 1/L 0-40 serum (test code = 1920-8) [facility] Hospitalalkaline phosphatase, zlhka7356-81-52 13:13:00 Test Item Value Reference Range Interpretation Comments alkaline phosphatase, serum (test 110 1/L 39-117 code = 1783-0) [facility] Hospitalbilirubin, serum, [id number] 13:13:00 Test Item Value Reference Range Interpretation Comments bilirubin, serum, total (test code 0.3 mg/dL 0.0-1.2 = 1975-2) [facility] Healthalbumin/globulin ratio, kchoh0479-68-60 13:13:00 Test Item Value Reference Range Interpretation Comments albumin/globulin ratio, serum (test 1.4 1.2-2.2 code = 1759-0) [facility] Healthglobulin, [id number] 13:13:00 Test Item Value Reference Range Interpretation Comments globulin, serum (test code = 2336-6) 2.7 1.5-4.5 [facility] Healthalbumin, [id number] 13:13:00 Test Item Value Reference Range Interpretation Comments albumin, serum (test code = 1751-7) 3.8 g/dL 3.5-5.5 [facility] Hospitalprotein, total, [id number] 13:13:00 Test Item Value Reference Range Interpretation Comments protein, total, serum (test code = 6.5 g/dL 6.0-8.5 2885-2) [facility] Hospitalcalcium, [id number] 13:13:00 Test Item Value Reference Range Interpretation Comments calcium, serum (test code = 1999-8) 8.9 mg/dL 8.7-10.2 [facility] Hospitalcarbon dioxide, venous wqbwo8790-00-17 13:13:00 Test Item Value Reference Range Interpretation Comments carbon dioxide, venous blood (test 24 mmol/L 18-29 code = 7-1) [facility] Hospitalchloride, [id number] 13:13:00 Test Item Value Reference Range Interpretation Comments chloride, serum (test code = 100 mmol/L 96-106 2075-0) [facility] Healthpotassium, ruhpu8463-21-25 13:13:00 Test Item Value Reference Range Interpretation Comments potassium, serum (test code = 4.1 mmol/L 3.5-5.2 2823-3) [facility]alsodium, [id number] 13:13:00 Test Item Value Reference Range Interpretation Comments sodium, serum (test code = 2951-2) 142 mmol/L 134-144 [facility] Hospitalurea nitrogen/creatinine ratio, [id number] 13:13:00 Test Item Value Reference Range Interpretation Comments urea nitrogen/creatinine ratio, serum 13 9-23 (test code = 3097-3) [facility] HealtheGFR if Gnpvbqzl4797-26-22 13:13:00 Test Item Value Reference Range Interpretation Comments eGFR if 102 >59 (test code = 51720-4) mL/min/((173/100).m2) [facility] HospitalEstimated Glomerular Filtration Rate (calc)2017-05-25 13:13:00 Test Item Value Reference Range Interpretation Comments Estimated Glomerular 89 >59 Filtration Rate (calc) mL/min/((173/100).m2 (test code = 78376-8) ) [facility] Hospitalcreatinine, [id number] 13:13:00 Test Item Value Reference Range Interpretation Comments creatinine, serum (test code = 0.75 mg/dL 0.57-1.00 2160-0) [facility]urea nitrogen, [id number] 13:13:00 Test Item Value Reference Range Interpretation Comments urea nitrogen, blood (test code = 10 mg/dL 6-24 3094-0) [facility] Hospitalblood glucose, [id number] 13:13:00 Test Item Value Reference Range Interpretation Comments blood glucose, random (test code = 123 mg/dL 65-99 H 2339-0) [facility], percentage of total cells, blood 2017-05-25 13:13:00 Test Item Value Reference Range Interpretation Comments immature granulocytes, percentage of 0 % total cells, blood (test code = 17186-0) [facility]basophil count, ebuwpydi3545-20-26 13:13:00 Test Item Value Reference Range Interpretation Comments basophil count, absolute (test 0.0 x10E3/uL 0.0-0.2 code = 52582-6) [facility] HealthEosinophil Absolute Azehs5957-39-83 13:13:00 Test Item Value Reference Range Interpretation Comments Eosinophil Absolute Count (test 0.1 X10E3/UL 0.0-0.4 code = 67016-2) [facility] Healthmonocyte count, blood, zwsjslfdi8202-99-83 13:13:00 Test Item Value Reference Range Interpretation Comments monocyte count, blood, automated 0.6 X10E3/UL 0.1-0.9 (test code = 742-7) [facility] Healthlymphocyte count, blood, twrwroqob0977-52-13 13:13:00 Test Item Value Reference Range Interpretation Comments lymphocyte count, blood, 0.9 X10E3/UL 0.7-3.1 automated (test code = 731-0) [facility] HealthAbsolute Xyzejsbsrlz7501-95-85 13:13:00 Test Item Value Reference Range Interpretation Comments Absolute Neutrophils (test code 3.6 X10E3/UL 1.4-7.0 = 01154-4) [facility] Healthbasophils as percent of blood ipeszgluiz2864-57-26 13:13:00 Test Item Value Reference Range Interpretation Comments basophils as percent of blood 0 % leukocytes (test code = 707-0) [facility] Healtheosinophils as percent of blood fwpkmubclb1992-47-02 13:13:00 Test Item Value Reference Range Interpretation Comments eosinophils as percent of blood 2 % leukocytes (test code = 713-8) [facility] Healthmonocytes as percent of blood doagqofoen9638-44-37 13:13:00 Test Item Value Reference Range Interpretation Comments monocytes as percent of blood 11 % leukocytes (test code = 5905-5) [facility] Healthlymphocytes as percent of blood ldoxkknpid8397-80-26 13:13:00 Test Item Value Reference Range Interpretation Comments lymphocytes as percent of blood 17 % leukocytes (test code = 736-9) [facility] Healthneutrophils as percent of blood mellmhwcfq0194-53-83 13:13:00 Test Item Value Reference Range Interpretation Comments neutrophils as percent of blood 70 % leukocytes (test code = 770-8) [facility] Healthplatelet bptrh0970-90-62 13:13:00 Test Item Value Reference Range Interpretation Comments platelet count (test code = 159 X10E3/UL 150-379 777-3) [facility] cell [facility] tcafd1123-15-57 13:13:00 Test Item Value Reference Range Interpretation Comments red blood cell distribution width 12.4 % 12.3-15.4 (test code = 788-0) [facility] corpuscular hemoglobin concentration, GBB4076-10-02 13:13:00 Test Item Value Reference Range Interpretation Comments mean corpuscular hemoglobin 35.4 G/DL 31.5-35.7 concentration, RBC (test code = 786-4) [facility] corpuscular hemoglobin, KWM8483-10-21 13:13:00 Test Item Value Reference Range Interpretation Comments mean corpuscular hemoglobin, RBC 35.0 pg 26.6-33.0 H (test code = 785-6) [facility] corpuscular volume, [id number] 13:13:00 Test Item Value Reference Range Interpretation Comments mean corpuscular volume, RBC (test code 99 fL 79-97 H = 787-2) [facility]hematocrit, gcnog1146-14-64 13:13:00 Test Item Value Reference Range Interpretation Comments hematocrit, blood (test code = 4544-3) 40.4 % 34.0-46.6 [facility]hemoglobin, ewjci7309-21-58 13:13:00 Test Item Value Reference Range Interpretation Comments hemoglobin, blood (test code = 14.3 g/dL 11.1-15.9 718-7) [facility] Hospitalerythrocyte (RBC) pjjyy8768-49-34 13:13:00 Test Item Value Reference Range Interpretation Comments erythrocyte (RBC) count (test 4.09 X10E6/UL 3.77-5.28 code = 789-8) [facility]leukocyte count, ipvuo1451-76-95 13:13:00 Test Item Value Reference Range Interpretation Comments leukocyte count, blood (test 5.1 X10E3/UL 3.4-10.8 code = 6690-2) [facility] HospitalCD4/CD8 nwsza5426-32-98 13:13:00 Test Item Value Reference Range Interpretation Comments CD4/CD8 ratio (test code = 98874) 0.51 0.92-3.72 L [facility] HospitalT-suppressor cells (CD8) as percent of blood lymphocytes 2017-05-25 13:13:00 Test Item Value Reference Range Interpretation Comments T-suppressor cells (CD8) as percent of 30.7 % 12.0-35.5 blood lymphocytes (test code = 3517) [facility] Hospitalabsolute [id number] 13:13:00 Test Item Value Reference Range Interpretation Comments absolute CD8 (test code = 54518) 276 109-897 [facility] HospitalT-helper cells (CD4) as percent of blood lymphocytes 2017-05-25 13:13:00 Test Item Value Reference Range Interpretation Comments T-helper cells (CD4) as percent of 15.7 % 30.8-58.5 L blood lymphocytes (test code = 8123-2) [facility] HospitalT-helper cells (CD4) peqyx9930-29-61 13:13:00 Test Item Value Reference Range Interpretation Comments T-helper cells (CD4) count (test code 141 /UL 359-1519 L = 91619-4) [facility] Hospitalrapid plasma reagin antibody, jkcja9753-87-03 09:12:00 Test Item Value Reference Range Interpretation Comments rapid plasma reagin antibody, Non Reactive Non Reactive serum (test code = 5291-0) [facility] HospitalHIV-1RNA, serum, by PCR, nzjocmyjrzax5841-84-51 09:12:00 Test Item Value Reference Range Interpretation Comments HIV-1RNA, serum, by PCR, <20 copies/mL quantitative (test code = 87915) [facility] Hospitalalanine aminotransferase (SGPT), uouif6149-57-39 09:12:00 Test Item Value Reference Range Interpretation Comments alanine aminotransferase (SGPT), serum 12 1/L 0-32 (test code = 1742-6) [facility] Hospitalaspartate aminotransferase (SGOT), wltjc4604-12-19 09:12:00 Test Item Value Reference Range Interpretation Comments aspartate aminotransferase (SGOT), 12 1/L 0-40 serum (test code = 1920-8) [facility] Hospitalalkaline phosphatase, yokfc8173-28-75 09:12:00 Test Item Value Reference Range Interpretation Comments alkaline phosphatase, serum (test 146 1/L 39-117 H code = 1783-0) [facility] Healthbilirubin, serum, fmlew4490-24-39 09:12:00 Test Item Value Reference Range Interpretation Comments bilirubin, serum, total (test code 0.3 mg/dL 0.0-1.2 = 1975-2) [facility] Healthalbumin/globulin ratio, moniu1782-49-19 09:12:00 Test Item Value Reference Range Interpretation Comments albumin/globulin ratio, serum (test 1.6 1.2-2.2 code = 1759-0) [facility] Healthglobulin, szypa2623-36-62 09:12:00 Test Item Value Reference Range Interpretation Comments globulin, serum (test code = 2336-6) 2.5 1.5-4.5 [facility] Healthalbumin, [id number] 09:12:00 Test Item Value Reference Range Interpretation Comments albumin, serum (test code = 1751-7) 3.9 g/dL 3.5-5.5 [facility] Healthprotein, total, [id number] 09:12:00 Test Item Value Reference Range Interpretation Comments protein, total, serum (test code = 6.4 g/dL 6.0-8.5 2885-2) [facility] Hospitalcalcium, eylqs8328-01-77 09:12:00 Test Item Value Reference Range Interpretation Comments calcium, serum (test code = 1999-8) 9.0 mg/dL 8.7-10.2 [facility] Hospitalcarbon dioxide, venous zpsva4659-35-10 09:12:00 Test Item Value Reference Range Interpretation Comments carbon dioxide, venous blood (test 24 mmol/L 18-29 code = 2026-1) [facility] Hospitalchloride, [id number] 09:12:00 Test Item Value Reference Range Interpretation Comments chloride, serum (test code = 95 mmol/L 96-106 L 5-0) [facility] Hospitalpotassium, bmzbg9898-04-37 09:12:00 Test Item Value Reference Range Interpretation Comments potassium, serum (test code = 4.5 mmol/L 3.5-5.2 2823-3) [facility]alsodium, vhgdr5739-83-70 09:12:00 Test Item Value Reference Range Interpretation Comments sodium, serum (test code = 2951-2) 135 mmol/L 134-144 [facility] Hospitalurea nitrogen/creatinine ratio, zdarl7208-29-06 09:12:00 Test Item Value Reference Range Interpretation Comments urea nitrogen/creatinine ratio, serum 10 9-23 (test code = 3097-3) [facility] HealtheGFR if Uwcuzpcq6473-53-77 09:12:00 Test Item Value Reference Range Interpretation Comments eGFR if 106 >59 (test code = 40282-8) mL/min/((173/100).m2) [facility] HospitalEstimated Glomerular Filtration Rate (calc)2017-03-01 09:12:00 Test Item Value Reference Range Interpretation Comments Estimated Glomerular 92 >59 Filtration Rate (calc) mL/min/((173/100).m2 (test code = 01331-5) ) [facility] Hospitalcreatinine, utsht7572-03-13 09:12:00 Test Item Value Reference Range Interpretation Comments creatinine, serum (test code = 0.73 mg/dL 0.57-1.00 2160-0) [facility]urea nitrogen, [id number] 09:12:00 Test Item Value Reference Range Interpretation Comments urea nitrogen, blood (test code = 7 mg/dL 6-24 3094-0) [facility] Hospitalblood glucose, tahztr7496-76-40 09:12:00 Test Item Value Reference Range Interpretation Comments blood glucose, random (test code = 130 mg/dL 65-99 H 2339-0) [facility] Hospitalimmature granulocytes, percentage of total cells, blood 2017-03-01 09:12:00 Test Item Value Reference Range Interpretation Comments immature granulocytes, percentage of 0 % total cells, blood (test code = 62707-4) [facility] Hospitalbasophil count, wmxbsgkj0044-40-03 09:12:00 Test Item Value Reference Range Interpretation Comments basophil count, absolute (test 0.0 x10E3/uL 0.0-0.2 code = 75010-9) [facility] HospitalEosinophil Absolute Waqdw0958-31-04 09:12:00 Test Item Value Reference Range Interpretation Comments Eosinophil Absolute Count (test 0.1 X10E3/UL 0.0-0.4 code = 34779-8) [facility] Hospitalmonocyte count, blood, hytlbwkum7013-99-90 09:12:00 Test Item Value Reference Range Interpretation Comments monocyte count, blood, automated 0.4 X10E3/UL 0.1-0.9 (test code = 742-7) [facility] Hospitallymphocyte count, blood, sxqwnunzd7552-87-43 09:12:00 Test Item Value Reference Range Interpretation Comments lymphocyte count, blood, 1.1 X10E3/UL 0.7-3.1 automated (test code = 731-0) [facility] HospitalAbsolute Cxuytuohlfq0563-59-94 09:12:00 Test Item Value Reference Range Interpretation Comments Absolute Neutrophils (test code 3.7 X10E3/UL 1.4-7.0 = 16067-0) [facility] Hospitalbasophils as percent of blood ietnlaynys6686-13-35 09:12:00 Test Item Value Reference Range Interpretation Comments basophils as percent of blood 0 % leukocytes (test code = 707-0) [facility]aleosinophils as percent of blood xfufolkjfj8675-95-46 09:12:00 Test Item Value Reference Range Interpretation Comments eosinophils as percent of blood 3 % leukocytes (test code = 713-8) [facility] Healthmonocytes as percent of blood yambxgbhxr2168-09-34 09:12:00 Test Item Value Reference Range Interpretation Comments monocytes as percent of blood 7 % leukocytes (test code = 5905-5) [facility]allymphocytes as percent of blood ptjjabuplf1947-00-34 09:12:00 Test Item Value Reference Range Interpretation Comments lymphocytes as percent of blood 21 % leukocytes (test code = 736-9) [facility] Hospitalneutrophils as percent of blood vrkghyhlew8514-46-71 09:12:00 Test Item Value Reference Range Interpretation Comments neutrophils as percent of blood 69 % leukocytes (test code = 770-8) [facility] Hospitalplatelet poygw2853-16-78 09:12:00 Test Item Value Reference Range Interpretation Comments platelet count (test code = 233 X10E3/UL 150-379 777-3) [facility] Hospitalred blood cell distribution vglsz3632-02-72 09:12:00 Test Item Value Reference Range Interpretation Comments red blood cell distribution width 13.1 % 12.3-15.4 (test code = 788-0) [facility] corpuscular hemoglobin concentration, [id number] 09:12:00 Test Item Value Reference Range Interpretation Comments mean corpuscular hemoglobin 34.4 G/DL 31.5-35.7 concentration, RBC (test code = 786-4) [facility] [id number] 09:12:00 Test Item Value Reference Range Interpretation Comments mean corpuscular hemoglobin, RBC 35.0 pg 26.6-33.0 H (test code = 785-6) [facility], [id number] 09:12:00 Test Item Value Reference Range Interpretation Comments mean corpuscular volume, RBC (test 102 fL 79-97 H code = 787-2) [facility] Hospitalhematocrit, lzlti4794-10-42 09:12:00 Test Item Value Reference Range Interpretation Comments hematocrit, blood (test code = 4544-3) 42.2 % 34.0-46.6 [facility] Hospitalhemoglobin, sgyvk5112-67-16 09:12:00 Test Item Value Reference Range Interpretation Comments hemoglobin, blood (test code = 14.5 g/dL 11.1-15.9 718-7) [facility] Hospitalerythrocyte (RBC) btvup4953-65-62 09:12:00 Test Item Value Reference Range Interpretation Comments erythrocyte (RBC) count (test 4.14 X10E6/UL 3.77-5.28 code = 789-8) [facility]leukocyte count, zkebm1299-06-48 09:12:00 Test Item Value Reference Range Interpretation Comments leukocyte count, blood (test 5.3 X10E3/UL 3.4-10.8 code = 6690-2) [facility] HospitalCD4/CD8 mnwkc7910-62-55 09:12:00 Test Item Value Reference Range Interpretation Comments CD4/CD8 ratio (test code = 43771) 0.68 0.92-3.72 L [facility] HospitalT-suppressor cells (CD8) as percent of blood lymphocytes 2017-03-01 09:12:00 Test Item Value Reference Range Interpretation Comments T-suppressor cells (CD8) as percent of 27.9 % 12.0-35.5 blood lymphocytes (test code = 3517) [facility] Hospitalabsolute [id number] 09:12:00 Test Item Value Reference Range Interpretation Comments absolute CD8 (test code = 39298) 307 109-897 [facility] HospitalT-helper cells (CD4) as percent of blood lymphocytes 2017-03-01 09:12:00 Test Item Value Reference Range Interpretation Comments T-helper cells (CD4) as percent of 19.0 % 30.8-58.5 L blood lymphocytes (test code = 8123-2) [facility] HospitalT-helper cells (CD4) tecrt8245-18-18 09:12:00 Test Item Value Reference Range Interpretation Comments T-helper cells (CD4) count (test code 209 /UL 359-1519 L = 24581-9) [facility] HospitalNeisseria gonorrhoeae DNA jvuui0478-33-63 11:00:00 Test Item Value Reference Range Interpretation Comments Neisseria gonorrhoeae DNA probe Negative Negative (test code = 81764-0) [facility] Hospitalchlamydia DNA tzcam5944-10-02 11:00:00 Test Item Value Reference Range Interpretation Comments chlamydia DNA probe (test code = Negative Negative 77749-4) [facility] HospitalQuantiferon Gold TB blood test for tuberculosis screening 2016-10-19 08:07:00 Test Item Value Reference Range Interpretation Comments Quantiferon Gold TB blood test for Negative Negative tuberculosis screening (test code = 44157-1) [facility] Hospitalrapid plasma reagin antibody, ccxzg7616-16-31 08:07:00 Test Item Value Reference Range Interpretation Comments rapid plasma reagin antibody, Non Reactive Non Reactive serum (test code = 5291-0) [facility] HospitalHIV-1RNA, serum, by PCR, uagzxtqtiwvm2120-33-25 08:07:00 Test Item Value Reference Range Interpretation Comments HIV-1RNA, serum, by PCR, <20 copies/mL quantitative (test code = 55487) [facility] HospitalLDL cholesterol, bokcr3793-23-27 08:07:00 Test Item Value Reference Range Interpretation Comments LDL cholesterol, serum (test code = 53 mg/dL 0-99 9-1) [facility] Hospitalvery low density wyityarhbsnm3458-95-80 08:07:00 Test Item Value Reference Range Interpretation Comments very low density lipoproteins (test 26 mg/dL 5-40 code = 2091-7) [facility] HospitalHDL cholesterol, fmevw4065-04-48 08:07:00 Test Item Value Reference Range Interpretation Comments HDL cholesterol, serum (test code = 43 mg/dL >39 2084-9) [facility] Hospitaltriglyceride, serum, scieszs2613-95-77 08:07:00 Test Item Value Reference Range Interpretation Comments triglyceride, serum, fasting (test 128 mg/dL 0-149 code = 2571-8) [facility] Hospitalcholesterol, cklwq3544-66-30 08:07:00 Test Item Value Reference Range Interpretation Comments cholesterol, serum (test code = 122 mg/dL 766-381 5068-3) [facility] Hospitalalanine aminotransferase (SGPT), yspfn9022-11-04 08:07:00 Test Item Value Reference Range Interpretation Comments alanine aminotransferase (SGPT), serum 18 1/L 0-32 (test code = 1742-6) [facility] Hospitalaspartate aminotransferase (SGOT), aicop7905-43-32 08:07:00 Test Item Value Reference Range Interpretation Comments aspartate aminotransferase (SGOT), 13 1/L 0-40 serum (test code = 1920-8) [facility] Hospitalalkaline phosphatase, vzztf7221-02-70 08:07:00 Test Item Value Reference Range Interpretation Comments alkaline phosphatase, serum (test 156 1/L 39-117 H code = 1783-0) [facility] Hospitalbilirubin, serum, hakny5584-89-20 08:07:00 Test Item Value Reference Range Interpretation Comments bilirubin, serum, total (test code 0.4 mg/dL 0.0-1.2 = 1975-2) [facility] Hospitalalbumin/globulin ratio, slltb0718-20-57 08:07:00 Test Item Value Reference Range Interpretation Comments albumin/globulin ratio, serum (test 1.8 1.1-2.5 code = 1759-0) [facility] Healthglobulin, fvjav8775-08-80 08:07:00 Test Item Value Reference Range Interpretation Comments globulin, serum (test code = 2336-6) 2.4 1.5-4.5 [facility] Hospitalalbumin, nyxao1722-33-44 08:07:00 Test Item Value Reference Range Interpretation Comments albumin, serum (test code = 1751-7) 4.3 g/dL 3.5-5.5 [facility] Healthprotein, total, [id number] 08:07:00 Test Item Value Reference Range Interpretation Comments protein, total, serum (test code = 6.7 g/dL 6.0-8.5 2885-2) [facility] Hospitalcalcium, hepob9819-52-25 08:07:00 Test Item Value Reference Range Interpretation Comments calcium, serum (test code = 1999-8) 9.4 mg/dL 8.7-10.2 [facility] Hospitalcarbon dioxide, venous syhqk9616-84-21 08:07:00 Test Item Value Reference Range Interpretation Comments carbon dioxide, venous blood (test 28 mmol/L 18-29 code = 2026-1) [facility] Hospitalchloride, gexrq1041-34-39 08:07:00 Test Item Value Reference Range Interpretation Comments chloride, serum (test code = 93 mmol/L 97-106 L 5-0) [facility] Hospitalpotassium, qjigq2792-72-90 08:07:00 Test Item Value Reference Range Interpretation Comments potassium, serum (test code = 4.5 mmol/L 3.5-5.2 2823-3) [facility]alsodium, qrdla3026-07-75 08:07:00 Test Item Value Reference Range Interpretation Comments sodium, serum (test code = 2951-2) 136 mmol/L 136-144 [facility]urea nitrogen/creatinine ratio, jqvvm4120-21-61 08:07:00 Test Item Value Reference Range Interpretation Comments urea nitrogen/creatinine ratio, serum 10 9-23 (test code = 3097-3) [facility] HospitaleGFR if Hqjbyuic1851-37-70 08:07:00 Test Item Value Reference Range Interpretation Comments eGFR if 100 >59 (test code = 00164-3) mL/min/((173/100).m2) [facility] HospitalEstimated Glomerular Filtration Rate (calc)2016-10-19 08:07:00 Test Item Value Reference Range Interpretation Comments Estimated Glomerular 87 >59 Filtration Rate (calc) mL/min/((173/100).m2 (test code = 52669-9) ) [facility] Hospitalcreatinine, qjrjq6910-36-64 08:07:00 Test Item Value Reference Range Interpretation Comments creatinine, serum (test code = 0.77 mg/dL 0.57-1.00 2160-0) [facility] Healthurea nitrogen, ralft3807-72-50 08:07:00 Test Item Value Reference Range Interpretation Comments urea nitrogen, blood (test code = 8 mg/dL 6-24 3094-0) [facility] Hospitalblood glucose, dxobii5869-51-54 08:07:00 Test Item Value Reference Range Interpretation Comments blood glucose, random (test code = 152 mg/dL 65-99 H 2339-0) [facility] Hospitalimmature granulocytes, percentage of total cells, blood 2016-10-19 08:07:00 Test Item Value Reference Range Interpretation Comments immature granulocytes, percentage of 0 % total cells, blood (test code = 53841-4) [facility] Hospitalbasophil count, kpqquouu9795-36-69 08:07:00 Test Item Value Reference Range Interpretation Comments basophil count, absolute (test 0.0 x10E3/uL 0.0-0.2 code = 66363-4) [facility] HospitalEosinophil Absolute Aavkr3652-31-12 08:07:00 Test Item Value Reference Range Interpretation Comments Eosinophil Absolute Count (test 0.2 X10E3/UL 0.0-0.4 code = 56059-6) [facility] Hospitalmonocyte count, blood, cqbhiuivc0704-32-06 08:07:00 Test Item Value Reference Range Interpretation Comments monocyte count, blood, automated 0.5 X10E3/UL 0.1-0.9 (test code = 742-7) [facility]allymphocyte count, blood, huhcphljg0656-13-63 08:07:00 Test Item Value Reference Range Interpretation Comments lymphocyte count, blood, 1.7 X10E3/UL 0.7-3.1 automated (test code = 731-0) [facility] HospitalAbsolute Lxnvwgljdkh2800-92-34 08:07:00 Test Item Value Reference Range Interpretation Comments Absolute Neutrophils (test code 5.2 X10E3/UL 1.4-7.0 = 92121-6) [facility] Hospitalbasophils as percent of blood kzkqatwuhk6632-41-05 08:07:00 Test Item Value Reference Range Interpretation Comments basophils as percent of blood 0 % leukocytes (test code = 707-0) [facility] Healtheosinophils as percent of blood zomctydqnc7403-71-18 08:07:00 Test Item Value Reference Range Interpretation Comments eosinophils as percent of blood 3 % leukocytes (test code = 713-8) [facility] Healthmonocytes as percent of blood masimintde7355-88-26 08:07:00 Test Item Value Reference Range Interpretation Comments monocytes as percent of blood 6 % leukocytes (test code = 5905-5) [facility] Hospitallymphocytes as percent of blood ofopmisyix9709-78-90 08:07:00 Test Item Value Reference Range Interpretation Comments lymphocytes as percent of blood 22 % leukocytes (test code = 736-9) [facility] Hospitalneutrophils as percent of blood mbwomiqbjj8116-67-14 08:07:00 Test Item Value Reference Range Interpretation Comments neutrophils as percent of blood 69 % leukocytes (test code = 770-8) [facility] Hospitalplatelet umnvq3040-66-22 08:07:00 Test Item Value Reference Range Interpretation Comments platelet count (test code = 257 X10E3/UL 150-379 777-3) [facility] Hospitalred blood cell distribution hnchu5083-19-80 08:07:00 Test Item Value Reference Range Interpretation Comments red blood cell distribution width 12.9 % 12.3-15.4 (test code = 788-0) [facility] corpuscular hemoglobin concentration, [id number] 08:07:00 Test Item Value Reference Range Interpretation Comments mean corpuscular hemoglobin 34.3 G/DL 31.5-35.7 concentration, RBC (test code = 786-4) [facility] corpuscular hemoglobin, [id number] 08:07:00 Test Item Value Reference Range Interpretation Comments mean corpuscular hemoglobin, RBC 34.5 pg 26.6-33.0 H (test code = 785-6) [facility] corpuscular volume, [id number] 08:07:00 Test Item Value Reference Range Interpretation Comments mean corpuscular volume, RBC (test 101 fL 79-97 H code = 787-2) [facility] [id number] 08:07:00 Test Item Value Reference Range Interpretation Comments hematocrit, blood (test code = 4544-3) 44.6 % 34.0-46.6 [facility]hemoglobin, [id number] 08:07:00 Test Item Value Reference Range Interpretation Comments hemoglobin, blood (test code = 15.3 g/dL 11.1-15.9 718-7) [facility]erythrocyte (RBC) [id number] 08:07:00 Test Item Value Reference Range Interpretation Comments erythrocyte (RBC) count (test 4.43 X10E6/UL 3.77-5.28 code = 789-8) [facility]leukocyte count, [id number] 08:07:00 Test Item Value Reference Range Interpretation Comments leukocyte count, blood (test 7.7 X10E3/UL 3.4-10.8 code = 6690-2) [facility]CD4/CD8 [id number] 08:07:00 Test Item Value Reference Range Interpretation Comments CD4/CD8 ratio (test code = 15546) 0.84 0.92-3.72 L [facility] HospitalT-suppressor cells (CD8) as percent of blood lymphocytes 2016-10-19 08:07:00 Test Item Value Reference Range Interpretation Comments T-suppressor cells (CD8) as percent of 26.3 % 12.0-35.5 blood lymphocytes (test code = 3517) [facility] Hospitalabsolute [id number] 08:07:00 Test Item Value Reference Range Interpretation Comments absolute CD8 (test code = 67284) 447 [id number] [facility]T-helper cells (CD4) as percent of blood lymphocytes 2016-10-19 08:07:00 Test Item Value Reference Range Interpretation Comments T-helper cells (CD4) as percent of 22.0 % 30.8-58.5 L blood lymphocytes (test code = 8123-2) [facility]T-helper cells (CD4) [id number] 08:07:00 Test Item Value Reference Range Interpretation Comments T-helper cells (CD4) count (test code 374 /UL 359-1519 = 15739-7) [facility] Hospitalhepatitis B surface [id number] 09:14:00 Test Item Value Reference Range Interpretation Comments hepatitis B surface antigen (test Negative Negative code = 79) [facility] antibody, [id number] 09:14:00 Test Item Value Reference Range Interpretation Comments hepatitis C antibody, serum (test code 0.2 0.0-0.9 = 5199-5) [facility] Hospitalvitamin D 25-hydroxy, [id number] 09:14:00 Test Item Value Reference Range Interpretation Comments vitamin D 25-hydroxy, serum (test 27.6 ng/mL 30.0-100.0 L code = 98292-3) [facility] Hospitalrapid plasma reagin antibody, [id number] 09:14:00 Test Item Value Reference Range Interpretation Comments rapid plasma reagin antibody, Non Reactive Non Reactive serum (test code = 5291-0) [facility]HIV-1RNA, serum, by PCR, [id number] 09:14:00 Test Item Value Reference Range Interpretation Comments HIV-1RNA, serum, by PCR, quantitative 30 /mL (test code = 67012) [facility] HospitalLDL cholesterol, [id number] 09:14:00 Test Item Value Reference Range Interpretation Comments LDL cholesterol, serum (test code = 82 mg/dL 0-99 2088-1) [facility] Hospitalvery low density enclvsryqrth2310-02-80 09:14:00 Test Item Value Reference Range Interpretation Comments very low density lipoproteins (test 40 mg/dL 5-40 code = 1-7) [facility] HospitalHDL cholesterol, [id number] 09:14:00 Test Item Value Reference Range Interpretation Comments HDL cholesterol, serum (test code = 42 mg/dL >39 5-9) [facility] Hospitaltriglyceride, serum, [id number] 09:14:00 Test Item Value Reference Range Interpretation Comments triglyceride, serum, fasting (test 199 mg/dL 0-149 H code = 2571-8) [facility]cholesterol, [id number] 09:14:00 Test Item Value Reference Range Interpretation Comments cholesterol, serum (test code = 164 mg/dL 304-277 0854-3) [facility] Hospitalalanine aminotransferase (SGPT), [id number] 09:14:00 Test Item Value Reference Range Interpretation Comments alanine aminotransferase (SGPT), serum 12 1/L 0-32 (test code = 1742-6) [facility] Hospitalaspartate aminotransferase (SGOT), [id number] 09:14:00 Test Item Value Reference Range Interpretation Comments aspartate aminotransferase (SGOT), 14 1/L 0-40 serum (test code = 1920-8) [facility] Hospitalalkaline phosphatase, [id number] 09:14:00 Test Item Value Reference Range Interpretation Comments alkaline phosphatase, serum (test 169 1/L 39-117 H code = 1783-0) [facility] Healthbilirubin, serum, [id number] 09:14:00 Test Item Value Reference Range Interpretation Comments bilirubin, serum, total (test code 0.4 mg/dL 0.0-1.2 = 1975-2) [facility] Healthalbumin/globulin ratio, [id number] 09:14:00 Test Item Value Reference Range Interpretation Comments albumin/globulin ratio, serum (test 1.8 1.1-2.5 code = 1759-0) [facility] Healthglobulin, [id number] 09:14:00 Test Item Value Reference Range Interpretation Comments globulin, serum (test code = 2336-6) 2.4 1.5-4.5 [facility] Healthalbumin, [id number] 09:14:00 Test Item Value Reference Range Interpretation Comments albumin, serum (test code = 1751-7) 4.3 g/dL 3.5-5.5 [facility]protein, total, [id number] 09:14:00 Test Item Value Reference Range Interpretation Comments protein, total, serum (test code = 6.7 g/dL 6.0-8.5 2885-2) [facility] Hospitalcalcium, [id number] 09:14:00 Test Item Value Reference Range Interpretation Comments calcium, serum (test code = 1999-8) 9.4 mg/dL 8.7-10.2 [facility] Hospitalcarbon dioxide, venous [id number] 09:14:00 Test Item Value Reference Range Interpretation Comments carbon dioxide, venous blood (test 24 mmol/L 18-29 code = 7-1) [facility] Hospitalchloride, [id number] 09:14:00 Test Item Value Reference Range Interpretation Comments chloride, serum (test code = 96 mmol/L 97-108 L 2075-0) [facility] Healthpotassium, [id number] 09:14:00 Test Item Value Reference Range Interpretation Comments potassium, serum (test code = 4.4 mmol/L 3.5-5.2 2823-3) [facility]alsodium, [id number] 09:14:00 Test Item Value Reference Range Interpretation Comments sodium, serum (test code = 2951-2) 137 mmol/L 134-144 [facility] Hospitalurea nitrogen/creatinine ratio, [id number] 09:14:00 Test Item Value Reference Range Interpretation Comments urea nitrogen/creatinine ratio, serum 13 9-23 (test code = 3097-3) [facility] HealtheGFR if [id number] 09:14:00 Test Item Value Reference Range Interpretation Comments eGFR if 117 >59 (test code = 36645-3) mL/min/((173/100).m2) [facility] HospitalEstimated Glomerular Filtration Rate (calc)2016-07-01 09:14:00 Test Item Value Reference Range Interpretation Comments Estimated Glomerular 102 >59 Filtration Rate (calc) mL/min/((173/100).m2 (test code = 40226-9) ) [facility] Hospitalcreatinine, [id number] 09:14:00 Test Item Value Reference Range Interpretation Comments creatinine, serum (test code = 0.61 mg/dL 0.57-1.00 2160-0) [facility]urea nitrogen, [id number] 09:14:00 Test Item Value Reference Range Interpretation Comments urea nitrogen, blood (test code = 8 mg/dL 6-24 3094-0) [facility] Hospitalblood glucose, [id number] 09:14:00 Test Item Value Reference Range Interpretation Comments blood glucose, random (test code = 106 mg/dL 65-99 H 2339-0) [facility] Hospitalimmature granulocytes, percentage of total cells, blood 2016-07-01 09:14:00 Test Item Value Reference Range Interpretation Comments immature granulocytes, percentage of 0 % total cells, blood (test code = 64072-8) [facility] Hospitalbasophil count, [id number] 09:14:00 Test Item Value Reference Range Interpretation Comments basophil count, absolute (test 0.0 x10E3/uL 0.0-0.2 code = 40878-5) [facility] HealthEosinophil Absolute [id number] 09:14:00 Test Item Value Reference Range Interpretation Comments Eosinophil Absolute Count (test 0.3 X10E3/UL 0.0-0.4 code = 75425-5) [facility] Healthmonocyte count, blood, rouykbqbh6623-84-87 09:14:00 Test Item Value Reference Range Interpretation Comments monocyte count, blood, automated 0.4 X10E3/UL 0.1-0.9 (test code = 742-7) [facility] Healthlymphocyte count, blood, [id number] 09:14:00 Test Item Value Reference Range Interpretation Comments lymphocyte count, blood, 1.5 X10E3/UL 0.7-3.1 automated (test code = 731-0) [facility] HealthAbsolute [id number] 09:14:00 Test Item Value Reference Range Interpretation Comments Absolute Neutrophils (test code 3.6 X10E3/UL 1.4-7.0 = 70122-3) [facility] Healthbasophils as percent of blood upjwsutxbk3348-17-79 09:14:00 Test Item Value Reference Range Interpretation Comments basophils as percent of blood 0 % leukocytes (test code = 707-0) [facility] Healtheosinophils as percent of blood qaayqhrzsk4793-20-12 09:14:00 Test Item Value Reference Range Interpretation Comments eosinophils as percent of blood 5 % leukocytes (test code = 713-8) [facility] Healthmonocytes as percent of blood pzkmrkcrhv8553-96-41 09:14:00 Test Item Value Reference Range Interpretation Comments monocytes as percent of blood 7 % leukocytes (test code = 5905-5) [facility]allymphocytes as percent of blood ogzcmmeynb2680-41-95 09:14:00 Test Item Value Reference Range Interpretation Comments lymphocytes as percent of blood 25 % leukocytes (test code = 736-9) [facility] Healthneutrophils as percent of blood qyehuhzyxz8932-39-51 09:14:00 Test Item Value Reference Range Interpretation Comments neutrophils as percent of blood 63 % leukocytes (test code = 770-8) [facility] Hospitalplatelet [id number] 09:14:00 Test Item Value Reference Range Interpretation Comments platelet count (test code = 210 X10E3/UL 150-379 777-3) [facility] Hospitalred blood cell distribution [id number] 09:14:00 Test Item Value Reference Range Interpretation Comments red blood cell distribution width 13.2 % 12.3-15.4 (test code = 788-0) [facility] corpuscular hemoglobin concentration, [id number] 09:14:00 Test Item Value Reference Range Interpretation Comments mean corpuscular hemoglobin 35.0 G/DL 31.5-35.7 concentration, RBC (test code = 786-4) [facility] corpuscular hemoglobin, [id number] 09:14:00 Test Item Value Reference Range Interpretation Comments mean corpuscular hemoglobin, RBC 35.2 pg 26.6-33.0 H (test code = 785-6) [facility] corpuscular volume, [id number] 09:14:00 Test Item Value Reference Range Interpretation Comments mean corpuscular volume, RBC (test 101 fL 79-97 H code = 787-2) [facility] Hospitalhematocrit, [id number] 09:14:00 Test Item Value Reference Range Interpretation Comments hematocrit, blood (test code = 4544-3) 40.8 % 34.0-46.6 [facility] Hospitalhemoglobin, [id number] 09:14:00 Test Item Value Reference Range Interpretation Comments hemoglobin, blood (test code = 14.3 g/dL 11.1-15.9 718-7) [facility] Hospitalerythrocyte (RBC) [id number] 09:14:00 Test Item Value Reference Range Interpretation Comments erythrocyte (RBC) count (test 4.06 X10E6/UL 3.77-5.28 code = 789-8) [facility] Hospitalleukocyte count, [id number] 09:14:00 Test Item Value Reference Range Interpretation Comments leukocyte count, blood (test 5.8 X10E3/UL 3.4-10.8 code = 6690-2) [facility] HospitalCD4/CD8 [id number] 09:14:00 Test Item Value Reference Range Interpretation Comments CD4/CD8 ratio (test code = 75335) 0.68 0.92-3.72 L [facility] HospitalT-suppressor cells (CD8) as percent of blood lymphocytes 2016-07-01 09:14:00 Test Item Value Reference Range Interpretation Comments T-suppressor cells (CD8) as percent of 28.2 % 12.0-35.5 blood lymphocytes (test code = 3517) [facility] Hospitalabsolute [id number] 09:14:00 Test Item Value Reference Range Interpretation Comments absolute CD8 (test code = 75530) 423 109-897 [facility] HospitalT-helper cells (CD4) as percent of blood lymphocytes 2016-07-01 09:14:00 Test Item Value Reference Range Interpretation Comments T-helper cells (CD4) as percent of 19.2 % 30.8-58.5 L blood lymphocytes (test code = 8123-2) [facility] HospitalT-helper cells (CD4) [id number] 09:14:00 Test Item Value Reference Range Interpretation Comments T-helper cells (CD4) count (test code 288 /UL 359-1519 L = 68870-7) [facility] Hospitalrapid plasma reagin antibody, [id number] 09:42:00 Test Item Value Reference Range Interpretation Comments rapid plasma reagin antibody, Non Reactive Non Reactive serum (test code = 5291-0) [facility] HospitalHIV-1RNA, serum, by PCR, quksxlnqluom7136-62-37 09:42:00 Test Item Value Reference Range Interpretation Comments HIV-1RNA, serum, by PCR, <20 copies/mL quantitative (test code = 66945) [facility] HospitalLDL cholesterol, [id number] 09:42:00 Test Item Value Reference Range Interpretation Comments LDL cholesterol, serum (test code = 58 mg/dL 0-99 2088-) [facility] glgugtleevyn2938-03-71 09:42:00 Test Item Value Reference Range Interpretation Comments very low density lipoproteins (test 32 mg/dL 5-40 code = 1-7) [facility] HospitalHDL cholesterol, [id number] 09:42:00 Test Item Value Reference Range Interpretation Comments HDL cholesterol, serum (test code = 43 mg/dL >39 2085-9) [facility] Hospitaltriglyceride, serum, [id number] 09:42:00 Test Item Value Reference Range Interpretation Comments triglyceride, serum, fasting (test 161 mg/dL 0-149 H code = 2571-8) [facility] Hospitalcholesterol, [id number] 09:42:00 Test Item Value Reference Range Interpretation Comments cholesterol, serum (test code = 133 mg/dL 412-161 4111-3) [facility] Hospitalalanine aminotransferase (SGPT), [id number] 09:42:00 Test Item Value Reference Range Interpretation Comments alanine aminotransferase (SGPT), serum 15 1/L 0-32 (test code = 1742-6) [facility] Hospitalaspartate aminotransferase (SGOT), [id number] 09:42:00 Test Item Value Reference Range Interpretation Comments aspartate aminotransferase (SGOT), 16 1/L 0-40 serum (test code = 1920-8) [facility] Hospitalalkaline phosphatase, [id number] 09:42:00 Test Item Value Reference Range Interpretation Comments alkaline phosphatase, serum (test 130 1/L 39-117 H code = 1783-0) [facility] Hospitalbilirubin, serum, [id number] 09:42:00 Test Item Value Reference Range Interpretation Comments bilirubin, serum, total (test code 0.3 mg/dL 0.0-1.2 = 1974-2) [facility] Hospitalalbumin/globulin ratio, [id number] 09:42:00 Test Item Value Reference Range Interpretation Comments albumin/globulin ratio, serum (test 1.5 1.1-2.5 code = 1759-0) [facility] Healthglobulin, [id number] 09:42:00 Test Item Value Reference Range Interpretation Comments globulin, serum (test code = 2336-6) 2.7 1.5-4.5 [facility] Hospitalalbumin, [id number] 09:42:00 Test Item Value Reference Range Interpretation Comments albumin, serum (test code = 1751-7) 4.1 g/dL 3.5-5.5 [facility] Hospitalprotein, total, [id number] 09:42:00 Test Item Value Reference Range Interpretation Comments protein, total, serum (test code = 6.8 g/dL 6.0-8.5 2885-2) [facility] Hospitalcalcium, [id number] 09:42:00 Test Item Value Reference Range Interpretation Comments calcium, serum (test code = 1999-) 9.4 mg/dL 8.7-10.2 [facility] Hospitalcarbon dioxide, venous [id number] 09:42:00 Test Item Value Reference Range Interpretation Comments carbon dioxide, venous blood (test 29 mmol/L 18-29 code = 2026-1) [facility] Healthchloride, [id number] 09:42:00 Test Item Value Reference Range Interpretation Comments chloride, serum (test code = 104 mmol/L 97-108 5-0) [facility] Hospitalpotassium, [id number] 09:42:00 Test Item Value Reference Range Interpretation Comments potassium, serum (test code = 4.4 mmol/L 3.5-5.2 2823-3) [facility]alsodium, [id number] 09:42:00 Test Item Value Reference Range Interpretation Comments sodium, serum (test code = 2951-2) 145 mmol/L 134-144 H [facility] Hospitalurea nitrogen/creatinine ratio, [id number] 09:42:00 Test Item Value Reference Range Interpretation Comments urea nitrogen/creatinine ratio, serum 20 9-23 (test code = 3097-3) [facility] HealtheGFR if Qduhtqtc2434-62-68 09:42:00 Test Item Value Reference Range Interpretation Comments eGFR if 117 >59 (test code = 59897-4) mL/min/((173/100).m2) [facility] HospitalEstimated Glomerular Filtration Rate (calc)2016-01-27 09:42:00 Test Item Value Reference Range Interpretation Comments Estimated Glomerular 102 >59 Filtration Rate (calc) mL/min/((173/100).m2 (test code = 89149-7) ) [facility] Hospitalcreatinine, [id number] 09:42:00 Test Item Value Reference Range Interpretation Comments creatinine, serum (test code = 0.61 mg/dL 0.57-1.00 0-0) [facility]urea nitrogen, [id number] 09:42:00 Test Item Value Reference Range Interpretation Comments urea nitrogen, blood (test code = 12 mg/dL 6-24 3094-0) [facility] Hospitalblood glucose, ivfddl4530-69-56 09:42:00 Test Item Value Reference Range Interpretation Comments blood glucose, random (test code = 127 mg/dL 65-99 H 2339-0) [facility] Hospitalimmature granulocytes, percentage of total cells, blood 2016-01-27 09:42:00 Test Item Value Reference Range Interpretation Comments immature granulocytes, percentage of 0 % total cells, blood (test code = 61661-0) [facility] Hospitalbasophil count, [id number] 09:42:00 Test Item Value Reference Range Interpretation Comments basophil count, absolute (test 0.0 x10E3/uL 0.0-0.2 code = 02481-5) [facility] HospitalEosinophil Absolute [id number] 09:42:00 Test Item Value Reference Range Interpretation Comments Eosinophil Absolute Count (test 0.3 X10E3/UL 0.0-0.4 code = 01154-5) [facility] Hospitalmonocyte count, blood, bvdhmhpcw1132-33-11 09:42:00 Test Item Value Reference Range Interpretation Comments monocyte count, blood, automated 0.4 X10E3/UL 0.1-0.9 (test code = 742-7) [facility]allymphocyte count, blood, wpebhywwf2367-97-11 09:42:00 Test Item Value Reference Range Interpretation Comments lymphocyte count, blood, 1.4 X10E3/UL 0.7-3.1 automated (test code = 731-0) [facility] HospitalAbsolute Dwsidevaeuy9425-23-33 09:42:00 Test Item Value Reference Range Interpretation Comments Absolute Neutrophils (test code 3.2 X10E3/UL 1.4-7.0 = 92659-2) [facility] Hospitalbasophils as percent of blood smubzkqmnl8600-86-01 09:42:00 Test Item Value Reference Range Interpretation Comments basophils as percent of blood 0 % leukocytes (test code = 707-0) [facility]aleosinophils as percent of blood ydquwmqaso4700-85-80 09:42:00 Test Item Value Reference Range Interpretation Comments eosinophils as percent of blood 5 % leukocytes (test code = 713-8) [facility] Hospitalmonocytes as percent of blood pulpzkzqfk9229-62-17 09:42:00 Test Item Value Reference Range Interpretation Comments monocytes as percent of blood 7 % leukocytes (test code = 5905-5) [facility]allymphocytes as percent of blood qwalhkorgb7742-92-56 09:42:00 Test Item Value Reference Range Interpretation Comments lymphocytes as percent of blood 26 % leukocytes (test code = 736-9) [facility] Hospitalneutrophils as percent of blood gpbsmomlol3949-08-28 09:42:00 Test Item Value Reference Range Interpretation Comments neutrophils as percent of blood 62 % leukocytes (test code = 770-8) [facility] Hospitalplatelet [id number] 09:42:00 Test Item Value Reference Range Interpretation Comments platelet count (test code = 197 X10E3/UL 150-379 777-3) [facility] Hospitalred blood cell distribution mmiws8692-58-34 09:42:00 Test Item Value Reference Range Interpretation Comments red blood cell distribution width 13.6 % 12.3-15.4 (test code = 788-0) [facility] corpuscular hemoglobin concentration, [id number] 09:42:00 Test Item Value Reference Range Interpretation Comments mean corpuscular hemoglobin 34.3 G/DL 31.5-35.7 concentration, RBC (test code = 786-4) [facility] corpuscular hemoglobin, [id number] 09:42:00 Test Item Value Reference Range Interpretation Comments mean corpuscular hemoglobin, RBC 35.1 pg 26.6-33.0 H (test code = 785-6) [facility] corpuscular volume, [id number] 09:42:00 Test Item Value Reference Range Interpretation Comments mean corpuscular volume, RBC (test 102 fL 79-97 H code = 787-2) [facility] Hospitalhematocrit, rslmq2756-86-12 09:42:00 Test Item Value Reference Range Interpretation Comments hematocrit, blood (test code = 4544-3) 40.2 % 34.0-46.6 [facility] Hospitalhemoglobin, [id number] 09:42:00 Test Item Value Reference Range Interpretation Comments hemoglobin, blood (test code = 13.8 g/dL 11.1-15.9 718-7) [facility] Hospitalerythrocyte (RBC) xykja7361-70-62 09:42:00 Test Item Value Reference Range Interpretation Comments erythrocyte (RBC) count (test 3.93 X10E6/UL 3.77-5.28 code = 789-8) [facility]leukocyte count, [id number] 09:42:00 Test Item Value Reference Range Interpretation Comments leukocyte count, blood (test 5.2 X10E3/UL 3.4-10.8 code = 6690-2) [facility] HospitalCD4/CD8 topsu2994-80-50 09:42:00 Test Item Value Reference Range Interpretation Comments CD4/CD8 ratio (test code = 27079) 0.67 0.92-3.72 L [facility] HospitalT-suppressor cells (CD8) as percent of blood lymphocytes 2016-01-27 09:42:00 Test Item Value Reference Range Interpretation Comments T-suppressor cells (CD8) as percent of 28.8 % 12.0-35.5 blood lymphocytes (test code = 3517) [facility] Hospitalabsolute [id number] 09:42:00 Test Item Value Reference Range Interpretation Comments absolute CD8 (test code = 29412) 403 109-897 [facility] HospitalT-helper cells (CD4) as percent of blood lymphocytes 2016-01-27 09:42:00 Test Item Value Reference Range Interpretation Comments T-helper cells (CD4) as percent of 19.2 % 30.8-58.5 L blood lymphocytes (test code = 8123-2) [facility] HospitalT-helper cells (CD4) ushzm3889-62-83 09:42:00 Test Item Value Reference Range Interpretation Comments T-helper cells (CD4) count (test code 269 /UL 359-1519 L = 54534-9) [facility]human leukocyte antigen [id number] 10:14:15 Test Item Value Reference Range Interpretation Comments human leukocyte antigen B57 (test negative code = 064118) [facility] HospitalQuantiferon Gold TB blood test for tuberculosis screening 2015-06-17 10:13:00 Test Item Value Reference Range Interpretation Comments Quantiferon Gold TB blood test for Negative Negative tuberculosis screening (test code = 08287-8) [facility], serum, by PCR, fujlkmjguhde6849-27-27 10:13:00 Test Item Value Reference Range Interpretation Comments HIV-1RNA, serum, by PCR, <20 copies/mL quantitative (test code = 02893) [facility]id plasma reagin antibody, [id number] 10:13:00 Test Item Value Reference Range Interpretation Comments rapid plasma reagin antibody, Non Reactive Non Reactive serum (test code = 5291-0) [facility]LDL cholesterol, [id number] 10:13:00 Test Item Value Reference Range Interpretation Comments LDL cholesterol, serum (test code = 33 mg/dL 0-99 2088-1) [facility]very low density xblyixswrwyd7012-92-27 10:13:00 Test Item Value Reference Range Interpretation Comments very low density lipoproteins (test 17 mg/dL 5-40 code = 2091-7) [facility]HDL cholesterol, [id number] 10:13:00 Test Item Value Reference Range Interpretation Comments HDL cholesterol, serum (test code = 38 mg/dL >39 L 2084-9) [facility]triglyceride, serum, [id number] 10:13:00 Test Item Value Reference Range Interpretation Comments triglyceride, serum, fasting (test 83 mg/dL 0-149 code = 2571-8) [facility]cholesterol, [id number] 10:13:00 Test Item Value Reference Range Interpretation Comments cholesterol, serum (test code = 88 mg/dL 100-199 L 2092-3) [facility] Hospitalalanine aminotransferase (SGPT), [id number] 10:13:00 Test Item Value Reference Range Interpretation Comments alanine aminotransferase (SGPT), serum 15 1/L 0-32 (test code = 1742-6) [facility] Hospitalaspartate aminotransferase (SGOT), euqpj4622-17-23 10:13:00 Test Item Value Reference Range Interpretation Comments aspartate aminotransferase (SGOT), 23 1/L 0-40 serum (test code = 1920-8) [facility] Hospitalalkaline phosphatase, [id number] 10:13:00 Test Item Value Reference Range Interpretation Comments alkaline phosphatase, serum (test 120 1/L 39-117 H code = 1783-0) [facility] Healthbilirubin, serum, [id number] 10:13:00 Test Item Value Reference Range Interpretation Comments bilirubin, serum, total (test code 0.3 mg/dL 0.0-1.2 = 1975-2) [facility] Healthalbumin/globulin ratio, [id number] 10:13:00 Test Item Value Reference Range Interpretation Comments albumin/globulin ratio, serum (test 1.8 1.1-2.5 code = 1759-0) [facility] Healthglobulin, [id number] 10:13:00 Test Item Value Reference Range Interpretation Comments globulin, serum (test code = 2336-6) 2.2 1.5-4.5 [facility] Healthalbumin, [id number] 10:13:00 Test Item Value Reference Range Interpretation Comments albumin, serum (test code = 1751-7) 3.9 g/dL 3.5-5.5 [facility] Healthprotein, total, [id number] 10:13:00 Test Item Value Reference Range Interpretation Comments protein, total, serum (test code = 6.1 g/dL 6.0-8.5 2885-2) [facility] Hospitalcalcium, [id number] 10:13:00 Test Item Value Reference Range Interpretation Comments calcium, serum (test code = 1999-8) 9.4 mg/dL 8.7-10.2 [facility] Hospitalcarbon dioxide, venous gzcnh5154-74-01 10:13:00 Test Item Value Reference Range Interpretation Comments carbon dioxide, venous blood (test 26 mmol/L 18-29 code = 2026-1) [facility] Healthchloride, [id number] 10:13:00 Test Item Value Reference Range Interpretation Comments chloride, serum (test code = 102 mmol/L 97-108 5-0) [facility] Healthpotassium, [id number] 10:13:00 Test Item Value Reference Range Interpretation Comments potassium, serum (test code = 3.1 mmol/L 3.5-5.2 L 2823-3) [facility]alsodium, [id number] 10:13:00 Test Item Value Reference Range Interpretation Comments sodium, serum (test code = 2951-2) 144 mmol/L 134-144 [facility] Hospitalurea nitrogen/creatinine ratio, [id number] 10:13:00 Test Item Value Reference Range Interpretation Comments urea nitrogen/creatinine ratio, serum 11 9-23 (test code = 3097-3) [facility] HealtheGFR if Nkolglci8580-96-28 10:13:00 Test Item Value Reference Range Interpretation Comments eGFR if 113 >59 (test code = 10198-1) mL/min/((173/100).m2) [facility] HospitalEstimated Glomerular Filtration Rate (calc)2015-06-17 10:13:00 Test Item Value Reference Range Interpretation Comments Estimated Glomerular 98 >59 Filtration Rate (calc) mL/min/((173/100).m2 (test code = 00457-2) ) [facility] Hospitalcreatinine, [id number] 10:13:00 Test Item Value Reference Range Interpretation Comments creatinine, serum (test code = 0.70 mg/dL 0.57-1.00 2160-0) [facility] Hospitalurea nitrogen, [id number] 10:13:00 Test Item Value Reference Range Interpretation Comments urea nitrogen, blood (test code = 8 mg/dL 6-24 3094-0) [facility] Hospitalblood glucose, [id number] 10:13:00 Test Item Value Reference Range Interpretation Comments blood glucose, random (test code = 77 mg/dL 65-99 2339-0) [facility] Hospitalimmature granulocytes, percentage of total cells, blood 2015-06-17 10:13:00 Test Item Value Reference Range Interpretation Comments immature granulocytes, percentage of 0 % total cells, blood (test code = 43108-3) [facility] Hospitalbasophil count, korgifjx8890-09-07 10:13:00 Test Item Value Reference Range Interpretation Comments basophil count, absolute (test 0.0 x10E3/uL 0.0-0.2 code = 45009-8) [facility] HospitalEosinophil Absolute [id number] 10:13:00 Test Item Value Reference Range Interpretation Comments Eosinophil Absolute Count (test 0.2 X10E3/UL 0.0-0.4 code = 12433-1) [facility] Hospitalmonocyte count, blood, qmrnfzlaa5322-33-06 10:13:00 Test Item Value Reference Range Interpretation Comments monocyte count, blood, automated 0.3 X10E3/UL 0.1-0.9 (test code = 742-7) [facility] Hospitallymphocyte count, blood, [id number] 10:13:00 Test Item Value Reference Range Interpretation Comments lymphocyte count, blood, 1.3 X10E3/UL 0.7-3.1 automated (test code = 731-0) [facility] HospitalAbsolute Qkbbsqcotcb0386-92-86 10:13:00 Test Item Value Reference Range Interpretation Comments Absolute Neutrophils (test code 3.5 X10E3/UL 1.4-7.0 = 80603-7) [facility] Hospitalbasophils as percent of blood zrjyxtgpop9967-34-62 10:13:00 Test Item Value Reference Range Interpretation Comments basophils as percent of blood 0 % leukocytes (test code = 707-0) [facility] Hospitaleosinophils as percent of blood oweusdemos1244-97-55 10:13:00 Test Item Value Reference Range Interpretation Comments eosinophils as percent of blood 4 % leukocytes (test code = 713-8) [facility] Healthmonocytes as percent of blood xamqbazdvr6722-94-37 10:13:00 Test Item Value Reference Range Interpretation Comments monocytes as percent of blood 6 % leukocytes (test code = 5905-5) [facility] Hospitallymphocytes as percent of blood sceqfwkosv9302-99-34 10:13:00 Test Item Value Reference Range Interpretation Comments lymphocytes as percent of blood 24 % leukocytes (test code = 736-9) [facility] Hospitalneutrophils as percent of blood gujjsmnemn8406-10-20 10:13:00 Test Item Value Reference Range Interpretation Comments neutrophils as percent of blood 66 % leukocytes (test code = 770-8) [facility] Hospitalplatelet pyokm5777-07-77 10:13:00 Test Item Value Reference Range Interpretation Comments platelet count (test code = 243 X10E3/UL 150-379 777-3) [facility] Hospitalred blood cell distribution kitnb3472-22-77 10:13:00 Test Item Value Reference Range Interpretation Comments red blood cell distribution width 14.1 % 12.3-15.4 (test code = 788-0) [facility] Hospitalmean corpuscular hemoglobin concentration, [id number] 10:13:00 Test Item Value Reference Range Interpretation Comments mean corpuscular hemoglobin 35.6 G/DL 31.5-35.7 concentration, RBC (test code = 786-4) [facility] Hospitalmean corpuscular hemoglobin, [id number] 10:13:00 Test Item Value Reference Range Interpretation Comments mean corpuscular hemoglobin, RBC 37.0 pg 26.6-33.0 H (test code = 785-6) [facility] Hospitalmean corpuscular volume, [id number] 10:13:00 Test Item Value Reference Range Interpretation Comments mean corpuscular volume, RBC (test 104 fL 79-97 H code = 787-2) [facility] Hospitalhematocrit, [id number] 10:13:00 Test Item Value Reference Range Interpretation Comments hematocrit, blood (test code = 4544-3) 33.1 % 34.0-46.6 L [facility] Hospitalhemoglobin, [id number] 10:13:00 Test Item Value Reference Range Interpretation Comments hemoglobin, blood (test code = 11.8 g/dL 11.1-15.9 718-7) [facility] Hospitalerythrocyte (RBC) [id number] 10:13:00 Test Item Value Reference Range Interpretation Comments erythrocyte (RBC) count (test 3.19 X10E6/UL 3.77-5.28 L code = 789-8) [facility] Hospitalleukocyte count, [id number] 10:13:00 Test Item Value Reference Range Interpretation Comments leukocyte count, blood (test 5.3 X10E3/UL 3.4-10.8 code = 6690-2) [facility] HospitalCD4/CD8 mmuor0761-93-15 10:13:00 Test Item Value Reference Range Interpretation Comments CD4/CD8 ratio (test code = 02635) 0.47 0.92-3.72 L [facility] HospitalT-suppressor cells (CD8) as percent of blood lymphocytes 2015-06-17 10:13:00 Test Item Value Reference Range Interpretation Comments T-suppressor cells (CD8) as percent of 27.6 % 12.0-35.5 blood lymphocytes (test code = 3517) [facility] Hospitalabsolute [id number] 10:13:00 Test Item Value Reference Range Interpretation Comments absolute CD8 (test code = 26974) 359 109-897 [facility] HospitalT-helper cells (CD4) as percent of blood lymphocytes 2015-06-17 10:13:00 Test Item Value Reference Range Interpretation Comments T-helper cells (CD4) as percent of 13.0 % 30.8-58.5 L blood lymphocytes (test code = 8123-2) [facility] HospitalT-helper cells (CD4) [id number] 10:13:00 Test Item Value Reference Range Interpretation Comments T-helper cells (CD4) count (test code 169 /UL 359-1519 L = 44292-4) [facility] HospitalT-helper cells (CD4) count, lowest absolute value 2015-03-18 10:06:41 Test Item Value Reference Range Interpretation Comments T-helper cells (CD4) count, lowest 150 absolute value (test code = 71414) [facility] HospitalHIV-CMIA (Chemiluminescent Microparticle Immuno Assay) 2015-03-03 09:53:00 Test Item Value Reference Range Interpretation Comments HIV-CMIA (Chemiluminescent Reactive Non Reactive A Microparticle Immuno Assay) (test code = 305223) [facility]HIV-1RNA, serum, by PCR, zegugdlzrtfd6862-89-23 09:53:00 Test Item Value Reference Range Interpretation Comments HIV-1RNA, serum, by PCR, <20 copies/mL quantitative (test code = 79782) [facility], [id number] 09:53:00 Test Item Value Reference Range Interpretation Comments hepatitis A antibody, total (test Negative Negative code = 75) [facility] Hospitalhepatitis B core antibody, [id number] 09:53:00 Test Item Value Reference Range Interpretation Comments hepatitis B core antibody, total Negative Negative (test code = 77) [facility] [id number] 09:53:00 Test Item Value Reference Range Interpretation Comments hepatitis B surface antigen (test Negative Negative code = 79) [facility], [id number] 09:53:00 Test Item Value Reference Range Interpretation Comments rapid plasma reagin antibody, Non Reactive Non Reactive serum (test code = 5291-0) [facility]hepatitis C antibody, [id number] 09:53:00 Test Item Value Reference Range Interpretation Comments hepatitis C antibody, serum (test code <0.1 0.0-0.9 = 5199-5) [facility] Hospitaltoxoplasma gondii antibody, [id number] 09:53:00 Test Item Value Reference Range Interpretation Comments toxoplasma gondii antibody, IgG (test <3.0 0.0-5.9 code = 2430) [facility]hepatitis B surface uzobheqo8526-51-38 09:53:00 Test Item Value Reference Range Interpretation Comments hepatitis B surface antibody Non Reactive (test code = 78) [facility] HospitalLDL cholesterol, [id number] 09:53:00 Test Item Value Reference Range Interpretation Comments LDL cholesterol, serum (test code = 133 mg/dL 0-99 H 2088-11) [facility] Hospitalvery low density gmcsrmprnjcl1868-60-50 09:53:00 Test Item Value Reference Range Interpretation Comments very low density lipoproteins (test 36 mg/dL 5-40 code = 2090-7) [facility] HospitalHDL cholesterol, [id number] 09:53:00 Test Item Value Reference Range Interpretation Comments HDL cholesterol, serum (test code = 45 mg/dL >39 2085-07) [facility] Hospitaltriglyceride, serum, cekrtvp7313-95-04 09:53:00 Test Item Value Reference Range Interpretation Comments triglyceride, serum, fasting (test 178 mg/dL 0-149 H code = 2571-8) [facility] Hospitalcholesterol, [id number] 09:53:00 Test Item Value Reference Range Interpretation Comments cholesterol, serum (test code = 214 mg/dL 100-199 H 2093-01) [facility] Hospitalalanine aminotransferase (SGPT), [id number] 09:53:00 Test Item Value Reference Range Interpretation Comments alanine aminotransferase (SGPT), serum 9 1/L 0-32 (test code = 1742-6) [facility] Hospitalaspartate aminotransferase (SGOT), [id number] 09:53:00 Test Item Value Reference Range Interpretation Comments aspartate aminotransferase (SGOT), 10 1/L 0-40 serum (test code = 1920-8) [facility]alk[facility], blnpa5059-27-25 09:53:00 Test Item Value Reference Range Interpretation Comments alkaline phosphatase, serum (test 120 1/L 39-117 H code = 1783-0) [facility] Healthbilirubin, serum, [id number] 09:53:00 Test Item Value Reference Range Interpretation Comments bilirubin, serum, total (test code 0.5 mg/dL 0.0-1.2 = 1975-2) [facility] Healthalbumin/globulin ratio, [id number] 09:53:00 Test Item Value Reference Range Interpretation Comments albumin/globulin ratio, serum (test 1.7 1.1-2.5 code = 1759-0) [facility] Healthglobulin, ktuqm8933-07-87 09:53:00 Test Item Value Reference Range Interpretation Comments globulin, serum (test code = 2336-6) 2.7 1.5-4.5 [facility] Healthalbumin, [id number] 09:53:00 Test Item Value Reference Range Interpretation Comments albumin, serum (test code = 1751-7) 4.6 g/dL 3.5-5.5 [facility] Healthprotein, total, [id number] 09:53:00 Test Item Value Reference Range Interpretation Comments protein, total, serum (test code = 7.3 g/dL 6.0-8.5 2885-2) [facility] Healthcalcium, [id number] 09:53:00 Test Item Value Reference Range Interpretation Comments calcium, serum (test code = 1999-8) 9.7 mg/dL 8.7-10.2 [facility] Hospitalcarbon dioxide, venous [id number] 09:53:00 Test Item Value Reference Range Interpretation Comments carbon dioxide, venous blood (test 27 mmol/L 18-29 code = 2026-1) [facility] Hospitalchloride, [id number] 09:53:00 Test Item Value Reference Range Interpretation Comments chloride, serum (test code = 100 mmol/L 97-108 5-0) [facility] Hospitalpotassium, [id number] 09:53:00 Test Item Value Reference Range Interpretation Comments potassium, serum (test code = 4.4 mmol/L 3.5-5.2 2823-3) [facility]alsodium, bxwjw0418-10-22 09:53:00 Test Item Value Reference Range Interpretation Comments sodium, serum (test code = 2951-2) 142 mmol/L 134-144 [facility] Hospitalurea nitrogen/creatinine ratio, [id number] 09:53:00 Test Item Value Reference Range Interpretation Comments urea nitrogen/creatinine ratio, serum 15 9-23 (test code = 3097-3) [facility] HealtheGFR if Mtnubrir8622-00-74 09:53:00 Test Item Value Reference Range Interpretation Comments eGFR if 105 >59 (test code = 38141-1) mL/min/((173/100).m2) [facility] HospitalEstimated Glomerular Filtration Rate (calc)2015-03-03 09:53:00 Test Item Value Reference Range Interpretation Comments Estimated Glomerular 91 >59 Filtration Rate (calc) mL/min/((173/100).m2 (test code = 38792-0) ) [facility] Hospitalcreatinine, [id number] 09:53:00 Test Item Value Reference Range Interpretation Comments creatinine, serum (test code = 0.74 mg/dL 0.57-1.00 2160-0) [facility]urea nitrogen, [id number] 09:53:00 Test Item Value Reference Range Interpretation Comments urea nitrogen, blood (test code = 11 mg/dL 6-24 3094-0) [facility] Hospitalblood glucose, jgdcui9984-57-66 09:53:00 Test Item Value Reference Range Interpretation Comments blood glucose, random (test code = 96 mg/dL 65-99 2339-0) [facility] Hospitalimmature granulocytes, percentage of total cells, blood 2015-03-03 09:53:00 Test Item Value Reference Range Interpretation Comments immature granulocytes, percentage of 0 % total cells, blood (test code = 58558-4) [facility] Hospitalbasophil count, sufucgsx5751-47-19 09:53:00 Test Item Value Reference Range Interpretation Comments basophil count, absolute (test 0.0 x10E3/uL 0.0-0.2 code = 75187-1) [facility] HospitalEosinophil Absolute [id number] 09:53:00 Test Item Value Reference Range Interpretation Comments Eosinophil Absolute Count (test 0.2 X10E3/UL 0.0-0.4 code = 35731-8) [facility] Healthmonocyte count, blood, lxvinabtr5027-08-01 09:53:00 Test Item Value Reference Range Interpretation Comments monocyte count, blood, automated 0.3 X10E3/UL 0.1-0.9 (test code = 742-7) [facility] Hospitallymphocyte count, blood, znihnihby6885-98-64 09:53:00 Test Item Value Reference Range Interpretation Comments lymphocyte count, blood, 1.7 X10E3/UL 0.7-3.1 automated (test code = 731-0) [facility] HospitalAbsolute Dinlwuutghu7872-72-22 09:53:00 Test Item Value Reference Range Interpretation Comments Absolute Neutrophils (test code 3.5 X10E3/UL 1.4-7.0 = 48249-9) [facility] Hospitalbasophils as percent of blood tgzbkoaluz4247-20-35 09:53:00 Test Item Value Reference Range Interpretation Comments basophils as percent of blood 0 % leukocytes (test code = 707-0) [facility]aleosinophils as percent of blood kgbujrlvyj7875-15-08 09:53:00 Test Item Value Reference Range Interpretation Comments eosinophils as percent of blood 4 % leukocytes (test code = 713-8) [facility] Healthmonocytes as percent of blood ruwhmsfxab0034-03-43 09:53:00 Test Item Value Reference Range Interpretation Comments monocytes as percent of blood 6 % leukocytes (test code = 5905-5) [facility] Hospitallymphocytes as percent of blood vfokqfmodn6548-24-78 09:53:00 Test Item Value Reference Range Interpretation Comments lymphocytes as percent of blood 30 % leukocytes (test code = 736-9) [facility] Hospitalneutrophils as percent of blood dbknlokcxj2186-57-92 09:53:00 Test Item Value Reference Range Interpretation Comments neutrophils as percent of blood 60 % leukocytes (test code = 770-8) [facility] Hospitalplatelet gtjkh9306-98-76 09:53:00 Test Item Value Reference Range Interpretation Comments platelet count (test code = 225 X10E3/UL 150-379 777-3) [facility] Hospitalred blood cell distribution zpsdp7878-92-42 09:53:00 Test Item Value Reference Range Interpretation Comments red blood cell distribution width 13.6 % 12.3-15.4 (test code = 788-0) [facility] corpuscular hemoglobin concentration, [id number] 09:53:00 Test Item Value Reference Range Interpretation Comments mean corpuscular hemoglobin 33.3 G/DL 31.5-35.7 concentration, RBC (test code = 786-4) [facility], [id number] 09:53:00 Test Item Value Reference Range Interpretation Comments mean corpuscular hemoglobin, RBC 35.4 pg 26.6-33.0 H (test code = 785-6) [facility], [id number] 09:53:00 Test Item Value Reference Range Interpretation Comments mean corpuscular volume, RBC (test 106 fL 79-97 H code = 787-2) [facility] Hospitalhematocrit, xegcj3819-92-75 09:53:00 Test Item Value Reference Range Interpretation Comments hematocrit, blood (test code = 4544-3) 44.1 % 34.0-46.6 [facility] Hospitalhemoglobin, sraar7670-64-11 09:53:00 Test Item Value Reference Range Interpretation Comments hemoglobin, blood (test code = 14.7 g/dL 11.1-15.9 718-7) [facility] Hospitalerythrocyte (RBC) vrgyh5068-20-32 09:53:00 Test Item Value Reference Range Interpretation Comments erythrocyte (RBC) count (test 4.15 X10E6/UL 3.77-5.28 code = 789-8) [facility] Hospitalleukocyte count, [id number] 09:53:00 Test Item Value Reference Range Interpretation Comments leukocyte count, blood (test 5.8 X10E3/UL 3.4-10.8 code = 6690-2) [facility] HospitalCD4/CD8 lwexs8998-89-49 09:53:00 Test Item Value Reference Range Interpretation Comments CD4/CD8 ratio (test code = 61507) 0.73 0.92-3.72 L [facility] HospitalT-suppressor cells (CD8) as percent of blood lymphocytes 2015-03-03 09:53:00 Test Item Value Reference Range Interpretation Comments T-suppressor cells (CD8) as percent of 25.7 % 12.0-35.5 blood lymphocytes (test code = 3517) [facility] Hospitalabsolute [id number] 09:53:00 Test Item Value Reference Range Interpretation Comments absolute CD8 (test code = 00476) 437 109-897 [facility] HospitalT-helper cells (CD4) as percent of blood lymphocytes 2015-03-03 09:53:00 Test Item Value Reference Range Interpretation Comments T-helper cells (CD4) as percent of 18.7 % 30.8-58.5 L blood lymphocytes (test code = 8123-2) [facility] HospitalT-helper cells (CD4) ntmxo5393-92-65 09:53:00 Test Item Value Reference Range Interpretation Comments T-helper cells (CD4) count (test code 318 /UL 359-2336 L = 42950-9) [facility]- XR CHEST 1 [id number] 08:19:00 FAX: Yudith Crenshaw [phone] [place]: St: DIS FAX: Manuel Esteban [phone] Name: GUERRERO ARIAS [facility] : 1960 Age/S: 53/F [address] [facility] Unit #: [id number] Loc: [place], [place] Phys: [place] [id number] Acct: E [id number] Dis Date: Status: DIS IN PHONE #: [phone] Exam Date: 02/27/2014809 FAX #: [phone] Reason: COPD EXAMS: CPT CODE: [id number] XR CHEST 1 V 29359 CHEST, FRONTAL VIEW HISTORY: COPD FINDINGS: Since 02/26/14, lungs remain emphysematous and clear. The heart size is normal. Aorta is partially calcified. Minimal degenerative changes affect the thoracic spine. IMPRESSION: No ev idence of acute airspace disease. at 0819 Reported and signed by: Anita Gonzales M.D. CC: Yudith Eastman MD; aMnuel Esteban MD Technologist: LEXI HOLCOMB; REGI VINSON [facility] Date/Time/By: 02/27/2014 (08) : By: [email or web address] PAGE 1 Signed Report FAX: Yudith Crenshaw [phone] [place]: St: DIS FAX: Manuel Esteban MD [phone] Name: GUERRERO ARIAS [facility] : 1960 Age/S: 53/F [address] [facility] Unit #: [id number] Loc: [place], [place]: [place] [address] Acct: [id number] Dis Date: Status: DIS IN PHONE #: [phone] Exam Date: 02/27/2014 0810 FAX #: [phone] Reason: COPD EXAMS: CPT CODE: [id number] XR CHEST 1 V 44036 <Continued> Orig Print D/T: S: 02/27/2014 (08) PAGE 2 Signed Report- XR CHEST 1 [id number] 21:21:00 FAX: Manuel Esteban MD [phone] [place]: St: DIS Name: GUERRERO ARIAS [facility] : 1960 Age/S: 53/F [address] [facility] Unit[facility] [id number] Loc: [place], [place]: [place] [address] Acct: [id number] Dis Date: Status: DIS IN PHONE #: [phone] Exam Date: 02/26/2014 1748 FAX #: [phone] Reason: CHEST PAIN EXAMS: CPT CODE: [id number] XR CHEST 1 V 02507 CHEST, FRONTAL VIEW HISTORY: CHEST PAIN FINDINGS: Since 02/03/14, lungs are emphysematous and clear. The heart size is normal. Aorta is partially calcified. The bones are intact. IMPRESSION: No evidence of acute airspace disease. at 2121 Reported and signed by: Anita Gonzales M.D. CC: Manuel Esteban MD Technologist: PEÑA SMITH [facility] Date/Time/By: 02/26/2014 (2120) : By: [email or web address] PAGE 1 Signed Report FAX: Manuel Esteban MD [phone] [place]: St: DIS----- Name: GUERRERO ARIAS [facility] : 1960 Age/S: 53/F [address] [facility] Unit #: [id number] Loc: [place], [place]: [place] [address] Acct: [id number] Dis Date: Status: DIS IN PHONE #: [phone] Exam Date: 02/26/20148 FAX #: [phone] Reason: CHEST PAIN EXAMS: CPT CODE: [id number] XR CHEST 1 V 58615 <Continued> Orig Print D/T: S: 02/26/2014 (2360) PAGE 2 Signed Report- XR CHEST 1 [id number] 16:54:00 FAX: Amaya Estrada MD [phone] [place]: St: UNK Name: GUERRERO ARIAS [facility] : 1960 Age/S: 53/F [address] [facility] Unit#: [id number] Loc: [place], [place]: [place] [address] Acct: [id number] Dis Date: Status: UNK PHONE #: [phone] Exam Date: 02/03/2014 1622 FAX #: [phone] Reason: cp EXAMS: CPT CODE: [id number] XR CHEST 1 V 58190 REASON FOR EXAM: Chest pain COMPARISON: 2012. Chest, single view portable The lungs are hyperinflated and clear. Heart size is normal. No effusion or pneumothorax can be seen. Osseous structures appear to be intact. IMPRESSION: No acute cardiopulmonary disease. Hyperinflated lung pattern. at 9791 Reported and signed by: Zoran Fuller M.D. CC: Amaya Estrada MD Technologist: YESY LOCKETT Trnscrd Date/Time/By: 02/03/2014 (3950) : [facility]: [facility] PAGE 1 Signed Report FAX: Amaya Estrada MD [phone] [place]: St: UNK------- Name: GUERRERO ARIAS [facility] : 1960 Age/S: 53/F [address] [facility] Unit #: [id number] Loc: [place], [place]: [place] [address] Acct: [id number] Dis Date: Status: [facility] PHONE #: [phone] Exam Date: 02/03/2014 1622 FAX #: [phone] Reason: cp EXAMS: CPT CODE: [id number] XR CHEST 1 V 08042 <Continued> Orig Print D/T: S: 02/03/2014 (8716) PAGE 2 Signed Report- CT ABD PELVIS W/[id number] 07:54:00 FAX: Julia Burns MD [phone] [place]: St: [facility] Name: GUERRERO ARIAS [facility] : 1960 Age/S: 52/F [address] [facility] Unit: [id number] Loc: [place], [place]: [place] [address] Acct: [id number] Dis Date: Status: [facility] PHONE #: [phone] Exam Date: 10/18/2013 2345 FAX #: [phone] Reason: gen'd abd pain, IV contrast only EXAMS: CPT CODE: [id number] CT ABD PELVIS W/CONT 40981 HISTORY: Abdominal pain, nausea and vomiting. CT abdomen and pelvis, contrast-enhanced. Following the intravenous administration of 90mL of Isovue 300, but at the request of the referring physician, no oral contrast, a study of the upper abdomen and pelvis was performed. A comparison is made to a study from December 20, 2012 The study includes some of the lung bases, which appear to be clear. There appears to be some minimal atelectasis or chronic lung change in the right heart border medially. No pericardial or pleural fluid can be found. The liver and spleen appear to be uniformly enhancing with fatty liver changes in the large left lobe extending around the edge of the spleen as before. Kidneys appear to be intact. Pancreas is normal. Gallbladder with normal configuration. The retroperitoneum does not show distinct adenopathywith normal aortic diameter seen. Bowel loops appear to be free of obstruction the detail limited by the lack of oral contrast. Some of the left upper quadrant small bowel may have upper normal diameter but no fluid. This could indicate inflammatory change. Imaging the pelvis shows the bladder to be intact. Prominent stool content suggest constipation with similar appearance. No distinct inflammatory changes are seen. The appendix is not conclusively identified. No evidence of edema at the cecum found, however. Hysterectomy changes seen. No free fluid or free air. IMPRESSION: Mild constipation. Questionable significance to left upper quadrant small bowel loops, proximally could indicate enteritis although present before as well. ER notified of the preliminary findingsby the on-call radiology service. PAGE 1 Signed Report (CONTINUED) FAX: Julia Burns MD [phone] [place]: St: [facility] -- Name: GUERRERO ARIAS [facility] : 1960 Age/S: 52/F [address] [facility] Unit: [id number] Loc: [place], [place]: [place] [address] Acct: [id number] Dis Date: Status: UNK PHONE #: [phone] Exam Date: 10/18/2013 2345 FAX #: [phone] Reason: gen'dabd pain, IV contrast only EXAMS: CPT CODE: [id number] CT ABD PELVIS W/CONT 30241 <Continued> Electronically Signed by Aureliano Fuller on10/19/2013 at 0754 Reported and signed by: Zoran Fuller M.D. CC: Julia Burns MD Technologist: YESY Ramirez Dt/Tm: 10/19/2013 (0754) Malik Orig Print D/T: S: 10/19/2013 (0758 6.44 321.13 PAGE 2 Signed Report- XR CHEST 1 [id number] 21:46:00 FAX: Alec Damian MD [phone] [place]: St: [facility] FAX: Julia Burns MD [phone] Name: GUERRERO ARIAS [facility] : 1960 Age/S: 52/F [address] [facility] Unit #: [id number] Loc: [place], [place]: [place] [address] Acct: [id number] Dis Date: Status: [facility] PHONE #: [phone] Exam Date: 10/18/20132131 FAX #: [phone] Reason: abd pain EXAMS: CPT CODE: [id number] XR CHEST 1 V 51860 CHEST, 1 VIEW HISTORY: abd pain FINDINGS: Since 05/18/13, the lungs remain hyperinflated is and clear. No consolidation, pleural effusion or pneumothorax. The heart size is normal. Aorta is partially calcified. The bones are intact. IMPRESSION: No evidence of acute airspace disease. COPD. ElectronicallySigned by Aureliano Gonzales on 10/18/2013 at 2142 Reported and signed by: Anita Gonzales M.D. CC: Alec Damian MD; Julia Burns MD Technologist: PEÑA Ramirez Date/Time/By: 10/18/2013 (2145) : By: [email or web address] PAGE 1 Signed Report FAX: Alec Damian MD [phone] [place]:[facility]: [facility] FAX: Julia Burns MD [phone] Name: GUERRERO ARIAS [facility] : 1960 Age/S: 52/F [address] Unit #: [id number] Loc: [place], [place]: [place] [address] Acct: [id number] Dis Date: Status: [facility] PHONE #: [phone] Exam Date: 10/18/20132131 FAX #: [phone] Reason: abd pain EXAMS: CPT CODE: [id number] XR CHEST 1 V 35608 <Continued> Orig Print D/T: S: 10/18/2013 (0) PAGE 2 Signed Report- XR CHEST 1 [id number] 10:12:00 FAX: Mikhail Bender MD [phone] [place]: [facility]: [facility] FAX: Yudith Crenshaw [phone] Name: GUERRERO ARIAS [facility] : 1960 Age/S: 52/F [address] [facility] Unit #: [id number] Loc: [place], [place]: [place] [address] Acct: [id number] Dis Date: Status: UNK PHONE #: [phone] Exam Date: 05/18/2013904 FAX #: [phone] Reason: SOB EXAMS: CPT CODE: [id number] XR CHEST 1 V 65677 REASON FOR EX AM: Shortness of breath and COPD COMPARISON: May 14, 2013. Chest, single view portable. The lungs are hyperinflated suggesting COPD, and clear. Interstitial fibrosis pattern suspected. Heart size is normal. No effusion or pneumothorax can be seen. Osseous structures appear to be intact. IMPRESSION: No acute cardiopulmonary disease. COPD changes. at 1012 Reported and signed by: Zoran Fuller M.D. CC: Mikhail Lamb MD; Yudith Eastman MD Technologist: ROE GARZA [facility] Date/Time/By: 05/18/2013 (1012) : By: [facility] PAGE 1 Signed Report FAX: Mikhail Bender MD [phone] [place]: St: UNKFAX: Yudith Crenshaw [phone] Name: GUERRERO ARIAS [facility] : 1960 Age/S: 52/F [address] [facility] Unit #: [id number] c: [place], [place]: [place] [address] Acct: [id number] Dis Date: Status: UNK PHONE #: [phone] Exam Date: 05/18/2013904 FAX #: [phone] Reason: SOB EXAMS: CPT CODE: [id number] XR CHEST 1 V 90978 <Continued> Orig Print D/T: S: 05/18/2013 (1015) PAGE 2 Signed Report- MRI BRAIN W WO [id number] 13:45:00 FAX: Mikhail Bender MD [phone] [place]: St: [facility] FAX: Yudith Crenshaw [phone] Name: GUERRERO ARIAS [facility] : 1960 Age/S: 52/F [address] [facility] Unit #: [id number] Loc: [place], [place]: [place] [address] Acct: [id number] Dis Date: Status: [facility] PHONE #: [phone] Exam Date: 05/15/2013 0951 FAX #: [phone] Reason: ANISOCORIA DIPLOPIS EXAMS: CPT CODE: [id number] MRI BRAIN W WO CONT 43285 CLINICAL HISTORY: Anisocoria, diplopia MRI brain ,with and without contrast. Precontrast T1 sagittal images show the pituitary gland to be intact, optic chiasm normal in its position and structures at the base of brain to be appropriate. Contrast axial and coronal imagesare obtained with 8 mL of Magnevist, given intravenously. The enhancement pattern appears to be intact. Motion artifact seen on some of the later sequences. No unusual vascular structures or enhancing mass lesions are seen. The orbital areas do not show any distinct abnormal enhancement. There is a mild asymmetry seen at the posterior inferior orbital floor. A discrepancy in the size of the right maxillary sinus compared to the left side is seen. There does not appear to be any distinct obstruction pattern or chronic sinusitis but there may be evidence for a previous sick Sinus syndrome . The right mastoid and lower temporal bone show fluid present with minimal changes on the left. There does not appearto be middle ear fluid present. T2 axial and coronal images show the cortical pattern to be symmetric and free of any mass effect. The ventricular system is midline. Posterior fossa structures appear to be appropriate. Vestibular-cochlear structures are intact. The orbital contents appear to be intact with conjugate gaze suggested on the sequences. Globes are appropriate. Intra-ocular muscles appear to be symmetric. Appropriate flow-void occurs in the [place]. No evidence of hemorrhage seen. The diffusion- weighted images are unremarkable for bright signal of CVA. The FLAIR sequence does not show evidence of demyelinating disease . No sinusitis changes are seen. IMPRESSION: No acute appearing intracranial abnormality. No enhancing mass lesions. Primarily right mastoiditis changes most likely. Subtle asymmetry in theinferior lateral orbital floor right PAGE 1 Signed Report (CONTINUED) FAX: Mikhail Bender MD [phone] [place]: St: [facility] FAX: Yudith Crenshaw [phone] Name: GUERRERO ARIAS [facility] : 1960 Age/S: 52/F [address] [facility] Unit #: [id number] Loc: [place], [place]: [place] [address] Acct: [id number] Dis Date: Status: [facility] PHONE #: [phone] Exam Date: 05/15/2013 0951 FAX #: [phone] Reason: ANISOCORIA DIPLOPIS EXAMS: CPT CODE: [id number] MRI BRAIN W WO CONT 08387 &lt ;Continued> orbit with hypoplastic right maxillary sinus could support sick sinus syndrome. No current obstruction is seen. at 5501 Reported and signed by: Zoran Fuller M.D. CC: Mikhail Lamb MD; Yudith Eastman MD Technologist: MIO RAMIREZ [facility] Date/Time/By: 05/15/2013 (0995) : By: [facility] PAGE 2 Signed Report FAX: Mikhail Bender MD [phone] [place]: St:[facility] FAX: Yudith Crenshaw [phone] Name: GUERRERO ARIAS [facility] : 1960 Age/S: 52/F [address] Unit #: [id number] Loc: [place], [place]: [place] [address] Acct: [id number] Dis Date: Status: K PHONE #: [phone] Exam Date: 05/15/2013 0951 FAX #: [phone] Reason: ANISOCORIA DIPLOPIS EXAMS: CPT CODE: [id number] MRI BRAIN W WO CONT 95122 <Continued> Orig Print D/T: S: 05/15/2013 (1290) PAGE 3 Signed Report- CT CHEST W/O CONTRAST 2013-05-14 21:40:00 FAX: Mikhail Bender MD [phone] [place]: St: [facility] FAX: Yudith Crenshaw [phone] Name: GUERRERO ARIAS [facility] : 1960 Age/S: 52/F [address] Unit: [id number] Loc: [place], [place]: [place] [address] Acct: [id number] Dis Date: Status: UNK PHONE #: [phone] Exam Date: 05/14/20131953 FAX #: [phone] Reason: SOB EXAMS: CPT CODE: [id number] CT CHEST W/O CONTRAST 39092 Reason for ex am, shortness of breath, pneumonia. CT of the chest, unenhanced. The thyroid tissue appears to be intact and thoracic inlet structures are appropriate.Normal aortic diameter is seen and normal heart size is seen. Anterior thickening of the pericardium is seen which could indicate fluid or thickening. There does not appear to be fluid po steriorly for pericardial effusion distinctly. The mediastinal areas are limited by lack of contrast. No pathologic adenopathy seen in the upper mediastinum with some AP window lymph nodes present. The lung window settings show groundglass appearance in the lungs that may indicate interstitial disease, interstitial pneumonia or pulmonary edema. Vague nodular areas are noted that may need further followup. No consolidation or pneumothorax or pleural effusion noted. A few scattered bulla are seen likely intrinsic lung disease. The airway shadows show a small 4-5 mm diverticulum projecting from the right posterior trachea upper aspect. This does not appear to represent free air. IMPRESSION: Interstitial lung disease or pulmonary edema. Mild COPD changes may be forming. No distinct consolidation at this time. No pleural effusion. Very limited study. t 2139 Reported and signed by: Zoran Fuller M.D. CC: Mikhail Lamb MD; Yudith Eastman MD Technologist: SILVANO WRIGHT Trnscrd Dt/Tm: 05/14/2013 (2139) t.[email or web address] Orig Print D/T: S: 05/14/2013 (2142 6.89 254.08 PAGE 1 Signed Report- XR CHEST 2 [id number] 17:37:00 FAX: Yudith Crenshaw [phone] [place]: St: [facility] Name: GUERRERO ARIAS [facility] : 1960 Age/S: 52/F [address] [facility] [place] Unit#: [id number] Loc: [place], [place]: [place] [address] Acct: [id number] Dis Date: Status: UNK PHONE #: [phone] Exam Date: 05/14/2013 1540 FAX #: [phone] Reason: COPD PNEUMONIA EXAMS: CPT CODE: [id number] XR CHEST 2 V 85925 CHEST, 2 VIEWS HISTORY: COPD PNEUMONIA COMPARISON: Chest x- ray 05/12/2013 FINDINGS: The lungs are hyperexpanded. There are bilateral diffuse interstitial markings. No significant pleural effusions. The cardiomediastinal contours are stable. No acute bone abnormality. IMPRESSION: 1.Diffuse interstitial markings likely represent interstitial pneumonia or other interstitial disease. Followup recommended. 2. Findings compatible clinical diagnosis of COPD. at 4928 Reported and signed by: Gonzalo Hall M.D. CC: Yudith Eastman MD Technologist: PEÑA SMITH Trnrird Date/Time/By: 05/14/2013 (3550) : By: [email or web address] PAGE 1 Signed Report FAX: Yudith Crenshaw [phone] [place]: St: [facility] Name: GU[facility]ERO ARIAS [facility] : 1960 Age/S: 52/F [address] [facility] [id number] Loc: [place], [place] Phys: Мар[place] [address] Acct: [id number] Dis Date: Status: [facility] PHONE #: [phone] Exam Date: 05/14/2013 1548 FAX #: [phone] Reason: COPD PNEUMONIA EXAMS: CPT CODE: [id number] XR CHEST 2 V 36595 <Continued> Orig Print D/T: S: 05/14/2013 (0081) PAGE 2 Signed Report- XR CHEST 1 [id number] 16:06:00 FAX: Melida Borges [phone] [place]: St: UNK Name: GUERRERO ARIAS [facility] : 1960 Age/S: 52/F [address] [facility] [id number] Loc: [place], [place]: [place] [address] Acct: [id number] Dis Date: Status: [facility] PHONE #: [phone] Exam Date: 05/12/2013 1547 FAX #: [phone] Reason: copd/cough, shortness of breath EXAMS: CPT CODE: [id number] XR CHEST 1 V 79000 REASON FOR EXAM: Cough, COPD, shortness of breath COMPARISON: October 18, 2012. Chest, single view portable The lungs are hyperinflated consistent with COPD. More but no infiltrates are appreciated focally. Heart size is intact.. No effusion or pneumothorax can be seen. Osseous structures appear to be intact. IMPRESSION: COPD changes. Interstitial patterncould indicate interstitial pneumonia/ disease or non-cardiogenic edema. at 1606 Reported and signed by: Zoran Fuller M.D. CC: Melida Singh Technologist: LEXI Marrerord Date/Time/By: 05/12/2013 (7301) : By: Malik PAGE 1 Signed Report FAX: Melida Borges [phone] [place]: St: UNK ------ Name: GUERRERO ARIAS [facility] : 1960Age/S: 52/F [address] Unit #: [id number] Loc: [place], [place]: [place] [address] Acct: [id number] Dis Date: Status: UNK PHONE #:[phone] Exam Date: 05/12/2013 1547 FAX #: [phone] Reason: copd/cough, shortness of breath EXAMS: CPT CODE: [id number] XR CHEST 1 V 11847 <Continued> Orig Print D/T: S: 05/12/2013 (7679) PAGE 2 Signed Report- CT ABD PELVIS W/[id number] 17:45:00 FAX: Bossman Nassar MD [place]: St: UNK Name: GUERRERO ARIAS [facility] : 1960 Age/S: 51/F [address] Unit: [id number] Loc: [place], [place]: [place] [address] Acct: [id number] Dis Date: Status: UNK PHONE #: [phone] Exam Date: 12/20/2012 1729 FAX #: [phone] Reason: generalized abd pain EXAMS: CPT CODE: [id number] CT ABD PELVIS W/CONT 52517 HISTORY: Generalized abdominal pain. CT abdomen contrast- enhanced. Following the intravenous administration of 90 mL of Isovue 370, but no oral contrast, a study of the upper abdomen was performed. The study includes some of the lung bases, which show some minimal atelectasis or scarring in the right middle lobe and lingula but otherwise, appear to be clear. No pericardial or pleural fluid can be found. Mild fatty liver changes are seen with the left lobe prominent resting against the spleen which is intact. The pancreas outline is appropriate. Kidneys are intact. Adrenal glands are symmetric. The gallbladder is not well distended but has normal location. Bowel loops are free of obstruction but limited. There may be borderline constipation changes. No ascites. CONCLUSION: No acute abnormality in the upper abdomen. Limited study for bowel assessment. CT pelvis, contrast-enhanced. Continued imaging of the pelvis was performed. The bladder appears to be intact. Diverticulosis changes affect the sigmoid colon. A hysterectomy has been performed. No free fluid or inflammatory change can be seen to support diverticulitis.The appendix is not identified and may have been removed. Iliac vessels are appro priate. No hernia formation seen. The bone window settings show some sclerotic changes possibly in the femoral heads. No bony destructive changes are seen. PAGE 1 Signed Report (CONTINUED) FAX: Bossman Nassar MD [place]: St: [facility] Name: GUERRERO ARIAS [facility] : 1960 Age/S: 51/F [address] [facility] Unit: [id number] Loc: [place], [place] Phys: [place] [address] Acct: [id number] Dis Date: Status: [facility] PHONE #: [phone] Exam Date: 12/20/2012 1729 FAX #: [phone] Reason: generalized abd pain EXAMS: CPT CODE: [id number] CT ABD PELVIS W/CONT 60131 <Continued> CONCLUSION: No acute abnormality in the deep pelvis. Hysterectomy. Sigmoid diverticulosis without obvious active disease. Limited bowel loop assessment however. at 1742 Reported and signed by: RobertC. Alina M.D. CC: Bossman Nassar MD Technologist: SILVANO Whitleyscrd Dt/Tm: 12/20/2012 (2002) Malik Orig Print D/T: S: 12/20/2012 (9139 PAGE 2 Signed Report- XR CHEST 2 [id number] 14:58:00 FAX: Bossman Nassar MD [place]: St: UNK Name: GUERRERO ARIAS [facility] : 1960 Age/S: 51/F [address] [facility] Unit#: [id number] Loc: [place], [place] Phys: [place] [address] Acct: [id number] Dis Date: Status: [facility] PHONE #: [phone] Exam Date: 10/18/2012 1416 FAX #: [phone] Reason: cough, fever EXAMS: CPT CODE: [id number] XR CHEST 2 V 62432 CHEST, 2 VIEWS HISTORY: cough, fever FINDINGS: Since 09/18/12, minimal atelectasis is noted in the left lower lobe. The previously seen faint density in the lung base has resolved. The lungs are otherwise clear. The heart size is normal. Minimal degenerative changes affect the thoracic spine. IMPRESSION: Aside from minimal atelectasis, no evidence of acute airspacedisease. at 7859 Reported and signed by: Anita Gonzales M.D. CC: Bossman Nassar MD Technologist: ANITA KLEIN [facility] Date/Time/By: 10/18/2012 (5314) : By: [email or web address] PAGE 1 Signed Report FAX: Bossman Belcher MD [place]: St: UNK Name: GUERRERO ARIAS [facility] : 1960 Age/S: 51/F [address] [facility] Unit #: [id number] Loc: [place], [place]: [place] [address] Acct: [id number] Dis Date: Status: UNK PHONE #: [phone] Exam Date: 10/18/2012 1416 FAX#: [phone] Reason: cough, fever EXAMS: CPT CODE: [id number] XR CHEST 2 V 31819 <Continued> Orig Print D/T: S: 10/18/2012 (1502) PAGE 2 Signed Report- XR CHEST 1 [id number] 13:03:00 [place]: St: UNK Name: GUERRERO ARIAS [facility] : 1960 Age/S: 51/F [address] Unit#: [id number] Loc: [place], [place] Phys: [place] [address] Acct: [id number] Dis Date: Status: UNK PHONE #: [phone] Exam Date: 09/18/2012 1234 FAX #: [phone] Reason: CHEST PAIN EXAMS: CPT CODE: [id number] XR CHEST 1 V 34048 CHEST, 1 VIEW HISTORY: chest pain. FINDINGS: A faint density is noted in the left lung base. The right lung is clear. The heart size is normal. Aorta is partially calcified. Mild degenerative changes affect the thoracic spine. IMPRESSION: Faint density in the left lung base could relate to scarring, atelectasis or an early infiltrate. Recommend followup with 2 views of the chest. at 1303 Reported and signed by:Anita Gonzales M.D. CC: Technologist: ADELA Ramirez Date/Time/By: 09/18/2012 (6004) : By: [email or web address] PAGE 1 Signed Report [place]: St: [facility] Name: GUERRERO ARIAS [facility] : 1960 Age/S: 51/F [address] Unit #: [id number] Loc: [place], [place]: [place] [address] Acct: [id number] Dis Date: Status: [facility] PHONE #: [phone] Exam Date: 09/18/2012 1234 FAX #: [phone] Reason: CHEST PAIN EXAMS: CPT CODE: [id number] XR CHEST 1 V 60542 <Continued> Orig Print D/T: S: 09/18/2012 (0359) PAGE 2 Signed Report- CT HEAD/BRAIN W/O [id number] 11:38:00 [place]: St: [facility] Name: GUERRERO ARIAS [facility] : 1960 Age/S: 51/F [address] [facility] [address] [facility] Unit: [id number] Loc: [place], [place] Phys: [place] [id number] Acct: [id number] Dis Date: Status: [facility] PHONE #: [phone] Exam Date: 09/18/2012 1139 FAX #: [phone] Reason: dizzy EXAMS: CPT CODE: [id number] CT HEAD/BRAIN W/O CONT 26601 HISTORY: Dizziness. TECHNIQUE: Axial noncontrastCT images of the brain were obtained. COMPARISON: No prior CT scan is available. FINDINGS: The ventricles are midline and symmetric with normal size and configuration.There is no evidence of acute hemorrhage, mass effect or major vascular territory infarct. There is no evidence of extra-axial fluid collection. Visualized extra-axial tissues are otherwise normal in appearance. IMPRESSION: No acute intracranial findings . at 1135 Reported and signed by: Colt Sorensen CC: Technologist: ARIEL KERR Trnscrd Dt/Tm: 09/18/2012 (1940) t.SLNO Orig Print D/T: S: 09/18/2012 (7093 PAGE 1 Signed Report
--- OUTSIDE RECORDS SUMMARY | 2020-07-31 22:53 | XMS REPORT ---
:1960 Author Name Messaging, Secure Address Unavailable Unavailable , Care Team Providers Name Role Phone Antoniokellie Husam Unavailable [phone] PROBLEMS Condition Status Date Provider Notes NONSPEC RXN CMI MSR G-IFN ANTIG RSPN NO ACT TB active Husam Vital DIZZINESS active Husam Vital Hyperlipidemia active Husam Vital Preventive health care active Husam Vital Screening, colon cancer active Husam Vital Hip arthralgia active Husam Vital COPD active Husam Vital ENCOUNTERS Date Type Provider Location Encounter Diagn osis - Ambulatory Tai Dugan UNK Encounter Teresa - Ambulatory Clarence Mcnamara UNK Encounter - Ambulatory Husam Weiner UNK Encounter Zahraa LinkLogic - Ambulatory Husam RAPPK Encounter Zahraa - Ambulatory Husam RAPPK Encounter Zahraa [place] - Ambulatory Husam Weiner UNK Encounter Zahraa LinkLogic - Ambulatory Husam Weiner UNK Encounter Nemandrew LinkLogic - Ambulatory Husam RAPPK Encounter Nemdaviek - Ambulatory Husam Weiner NONSPEC RX N CMI MSR Encounter Zahraa Vegao G-IFN ANTIG RSPN NO ACT Dugan Teresa TB - Ambulatory Nkechi [place] UNK Encounter - Ambulatory Husam Weiner UNK Encounter [place] LinkLogic - Ambulatory Husam Weiner UNK Encounter [place] LinkLogic Nkechi [place] - Ambulatory Husam Weiner UNK Encounter Nemecekellie LinkLogic - Ambulatory Husam Weiner UNK Encounter Nemecek - Ambulatory Husam Weiner UNK Encounter Nemecekellie Arboleda [place] Tai Bergereras Teresa - Ambulatory Marlee Meléndezrez UNK Encounter - Ambulatory Husam Weiner UNK Encounter [place] LinkLogic - Ambulatory Husam Weiner UNK Encounter Nemecekellie LinkLogic - Ambulatory Husam Vital Husam UNK Encounter [place] LinkLogic - Ambulatory Palmer Jose UNK Encounter - Ambulatory Husam Vital Husam UNK Encounter Nemecek - Ambulatory Husam Vital Husam UNK Encounter Nemecekellie Arboleda [place] - Ambulatory Meka [place] UNK Encounter - Ambulatory Fax Status LinkLogic UNK Encounter - Ambulatory Husam Zahraa Husam UNK Encounter [place] LinkLogic - Ambulatory Husam Zahraa Husam UNK Encounter [place] LinkLogic - Ambulatory Husam Zahraa Husam UNK Encounter [place] LinkLogic - Ambulatory Husam Zahraa Husam UNK Encounter Nemecek - Ambulatory Husam Zahraa Husam UNK Encounter Nemecekellie - Ambulatory Husam Weiner UNK Encounter Nemecekellie Lucas - Ambulatory Marlee Oconnor UNK Encounter - Ambulatory Marlee Oconnor UNK Encounter - Ambulatory Marlee Oconnor UNK Encounter - Ambulatory Husam Weiner UNK Encounter [place] LinkLogic - Ambulatory Marlee Oconnor UNK Encounter Hassel Pearce - Ambulatory Husam Weiner UNK Encounter [place] - Ambulatory Marlee Oconnor UNK Encounter - Ambulatory Husam Weiner UNK Encounter [place] LinkLogic - Ambulatory Husam Weiner UNK Encounter Nemecekellie LinkLogic - Ambulatory Husam Weiner UNK Encounter [place] - Ambulatory Husam Weiner UNK Encounter Nemecekellie LinkLogic - Ambulatory Fax Status LinkLogic UNK Encounter - Ambulatory Husam Weiner DIONTEK Encounter Nemecek - Ambulatory Husam Weiner Encounter Nemandrew Sisi Obrien - Ambulatory Marlee Oconnor UNK Encounter - Ambulatory Marlee Oconnor UNK Encounter Luci Ríos - Ambulatory Marcelle Rosas UNK Encounter - Ambulatory Fax Status LinkLogic UNK Encounter - Ambulatory Fax Status LinkLogic UNK Encounter - Ambulatory Fax Status LinkLogic UNK Encounter - Ambulatory Husam Weiner UNK Encounter Nemecek - Ambulatory Husam Weiner UNK Encounter Nemdaviek - Ambulatory Husam Weiner Hyperlipid emia Encounter Zahraa Velazco - Ambulatory Choice UNK Encounter Danish - Ambulatory Husam Weiner UNK Encounter Zahraa Centeno - Ambulatory Marcelle Rosas UNK Encounter - Ambulatory Husam Weiner UNK Encounter Zahraa Pham Kenneth - Ambulatory Verito Garcia UNK Encounter - Ambulatory Vanessa Zarate UNK Encounter - Ambulatory Husam Weiner UNK Encounter [place]dav[place] - Ambulatory Joes Lui UNK Encounter Marcelle Rosas - Ambulatory Marcelle Rosas UNK Encounter - Ambulatory Marcelle Rosas UNK Encounter - Ambulatory Angeles Cameron UNK Encounter - Ambulatory Husam Alvarezkellie RAPPK Encounter Antoniokellie Jacobo - Ambulatory Luann Bethel UNK Encounter - Ambulatory Husam RAPPK Encounter Zahraa - Ambulatory Husam Estrellaandrew MEDINA Encounter Zahraa - Ambulatory Husam Weiner Encounter Zahraa Velazco - Ambulatory Choice DIONTEK Encounter Danish - Ambulatory Husam Zahraa RAPPK Encounter Zahraa Centeno - Ambulatory Husam RAPPK Encounter [place] Ema Pillairyan Fonseca - Ambulatory Husam Weiner UNK Encounter Nemandrew Molly Juan A - Ambulatory Husam Weiner UNK Encounter Nemandrew AkashLogic - Ambulatory Husam Weiner UNK Encounter [place] - Ambulatory Husam Weiner UNK Encounter Nem[place]k - Ambulatory Husam Weiner DIZZINESS Encounter Zahraa Dewittucena Nan - Ambulatory Choice UNK Encounter Danish - Ambulatory Husam Weiner UNK Encounter Nemdaviek - Ambulatory Husam Weiner UNK Encounter Nemecek - Ambulatory Husam Weiner Hyperlipid emia Encounter Zahraa Iesha Lucas - Ambulatory Choice UNK Encounter Danish - Ambulatory Marcelle Rosas UNK Encounter - Ambulatory Marcelle Rosas UNK Encounter - Ambulatory Bailee Rae UNK Encounter - Ambulatory Bailee Rae UNK Encounter - Ambulatory Husam Weiner UNK Encounter Nemandrew AkashLogdeb - Ambulatory Husam Weiner UNK Encounter [place] - Ambulatory Marcelle Rosas UNK Encounter Beau Rodriguez - Ambulatory Marcelle Rosas UNK Encounter - Ambulatory Shaye Fish UNK Encounter Ángel Rodriguez - Ambulatory Bailee Rae UNK Encounter - Ambulatory Husam eWiner UNK Encounter Nemandrew Marroquin Langston - Ambulatory Bailee Rae UNK Encounter Baltazar Romanirez - Ambulatory Baltazar Davison UNK Encounter - Ambulatory Husam Weiner UNK Encounter [place] - Ambulatory Husam Weiner UNK Encounter [place] - Ambulatory Husam Weiner UNK Encounter Nemandrew Dewittucena [place] - Ambulatory Richar UNK Encounter Danish - Ambulatory Husam Weiner UNK Encounter Zahraa Hilllie Ángel - Ambulatory Husam Weiner UNK Encounter Nemecekellie LinkLogic - Ambulatory Malu Hurst UNK Encounter - Ambulatory Husam Weiner UNK Encounter Nemecekellie LinkLogic - Ambulatory Malu Hurst UNK Encounter - Ambulatory Remy Perdomo UNK Encounter LinkLogic - Ambulatory Husam Weiner UNK Encounter [place] - Ambulatory Husam Weiner UNK Encounter [place]dav[place] - Ambulatory Husam Weiner Preventive health care Encounter Nemandrew Arboleda [place] - Ambulatory Husam Weiner UNK Encounter Nemecekellie LinkLogic - Ambulatory Husam Weiner UNK Encounter Nemecekellie LinkLogic - Ambulatory Tara Haley UNK Encounter - Ambulatory Malu Hurst UNK Encounter - Ambulatory Fax Status LinkLogic UNK Encounter - Ambulatory Fax Status LinkLogic UNK Encounter - Ambulatory Husam Weiner UNK Encounter [place] - Ambulatory Husam Weiner UNK Encounter [place] - Ambulatory Husam Weiner Screening, colon cancer Encounter Nemecek Nkechi [place] Molly Velazco - Ambulatory Remy Perdomo UNK Encounter LinkLogic - Ambulatory Chiara Diallo UNK Encounter - Ambulatory Husam Weiner UNK Encounter [place] - Ambulatory Husam Weiner UNK Encounter [place] - Ambulatory Husam Weiner Hip arthra lgia Encounter Nemandrew Nkechi [place] - Ambulatory Husam Weiner UNK Encounter [place] LinkLogic - Ambulatory Dilma Hunt UNK Encounter - Ambulatory Remy Perdomo UNK Encounter - Ambulatory Remy Osorio UNK Encounter Leonard - Ambulatory Husam Weiner UNK Encounter [place] LinkLogic - Ambulatory Husam Weiner UNK Encounter Nemecekellie LinkLogic - Ambulatory Chiara Diallo UNK Encounter - Ambulatory Nkechi [place] UNK Encounter - Ambulatory Chiara Diallo UNK Encounter - Ambulatory Husam Weiner UNK Encounter [place] LinkLogic - Ambulatory Husam Weiner UNK Encounter Nemecekellie LinkLogic - Ambulatory Husam Weiner UNK Encounter [place] LinkLogic - Ambulatory Odin Rinaldi UNK Encounter - Ambulatory Zee Michael UNK Encounter - Ambulatory Zee Michael UNK Encounter - Ambulatory Husam Weiner UNK Encounter [place] - Ambulatory Husam Weiner UNK Encounter Nemandrew Arboleda [place] - Ambulatory Husam Weiner UNK Encounter [place] LinkLogic - Ambulatory Husam Weiner UNK Encounter [place] LinkLogic - Ambulatory Husam Weiner UNK Encounter [place] LinkLogic - Ambulatory Husam Weiner UNK Encounter [place] LinkLogic - Ambulatory Husam Weiner UNK Encounter [place] LinkLogic - Ambulatory Zee Michael UNK Encounter LinkLogic - Ambulatory Zee [place] UNK Encounter - Ambulatory Husam Weiner UNK Encounter [place] LinkLogic - Ambulatory Husam Weiner UNK Encounter [place] LinkLogic - Ambulatory Husam Weiner COPD Encounter [place] Lexy Lucas - Ambulatory Sammie Sparks UNK Encounter - Ambulatory Sammie Sparks UNK Encounter LinkLogic - Ambulatory Deidra Mustafa-Saman UNK Encounter - Ambulatory Elodia Rubina UNK Encounter LinkLogic - Ambulatory Elodia Rubina UNK Encounter LinkLogic - Ambulatory Elodia Rubina UNK Encounter LinkLogic - Ambulatory Elodia Rubina Atif UNK Encounter Wozencraft - Ambulatory Husam MEDINA Encounter Zahraa LinkLogic VITAL SIGNS Date Observation Value Provider oxygen saturation, oximetry 95 % Azuc nikolia [place] " method used to obtain blood pressure automatic Nkechi [place] " Blood Pressure Position 01 sitting Azuce na [place] " blood pressure, site #1 left arm Nkechi [place] " blood pressure, diastolic 70 mm[Hg] Azucen a [place] " blood pressure, systolic 125 mm[Hg] Nkechi [place] " pulse rate 89 /min Nkechi [place] " temperature E&M 98.2 [degF] Nkechi [place] " height E&M 62 [in_i] Nkechi Montna[place] " height in centimeters E&M 157.48 cm Azucen a [place] oxygen saturation, oximetry 90 % Warren ardo Dugan Teresa " method used to obtain blood pressure automatic Tai Dugan Teresa " Blood Pressure Position 01 sitting [place] rdo Dugan Teresa " blood pressure, site #1 left arm Tai Dugan Teresa " blood pressure, diastolic 71 mm[Hg] Leonar do Dugan Teresa " blood pressure, systolic 101 mm[Hg] Gary o Dugan Teresa " pulse rate 112 /min Tai Contrer as Teresa " temperature site oral Tai Contre reynold Teresa " temperature E&M 98.7 [degF] Tai Contrer as Teresa " weight E&M 193 lbs. Tai Contrer as Teresa " weight in kilograms E&M 87.73 kg Tai Dugan Teresa " height E&M 62 [in_i] Tai Contrer as Teresa " height in centimeters E&M 157.48 cm Leonar do Dugan Teresa oxygen saturation, oximetry 98 % Warren ardo Dugan Teresa " blood pressure, diastolic 68 mm[Hg] Leonar do Dugan Teresa " blood pressure, systolic 103 mm[Hg] Gary o Dugan Teresa " pulse rate 81 /min Tai Contrer as Teresa " temperature E&M 98.6 [degF] Tai Contrer as Teresa " weight E&M 169.60 lbs. Tai Contrer as Teresa " weight in kilograms E&M 77.09 kg Tai Casarezs Teresa " method used to obtain blood pressure automatic Tai Dugan Teresa " Blood Pressure Position 01 sitting Michelle pedrozao Dugan Teresa " blood pressure, site #1 left arm Tai Casarezs Teresa " temperature site oral Tai La reynold Teresa " height E&M 62 [in_i] Tai Aber as Teresa " height in centimeters E&M 157.48 cm Leonefrain do Dugan Teresa oxygen saturation, oximetry 89 % Azuc nikolai [place] " pulse rate 95 /min Nkehci [place] " temperature site oral Nkechi [place] " temperature E&M 97.3 [degF] Nkechi [place] " method used to obtain blood pressure automatic Nkechi [place] " Blood Pressure Position 01 sitting Azuce na [place] " blood pressure, site #1 right arm Nkechi [place] " blood pressure, diastolic 60 mm[Hg] Azucen a [place] " blood pressure, systolic 92 mm[Hg] Nkechi [place] " weight E&M 180 lbs. Nkechi [place] " weight in kilograms E&M 81.82 kg Nkechi [place] " height E&M 62 [in_i] Nkechi [place] " height in centimeters E&M 157.48 cm Azucen a [place] blood pressure, diastolic 80 mm[Hg] Valentine Lance " blood pressure, systolic 110 mm[Hg] Valentine Lucas " oxygen saturation, oximetry 89 % Kaleigh Lucas " pulse rate 126 /min Valentine Lucas " temperature E&M 98.6 [degF] Valentine Lucas " weight E&M 189.13 lbs. Valentine Lucas " weight in kilograms E&M 85.97 kg Valentine robertson " method used to obtain blood pressure automatic Valentine Lucas " Blood Pressure Position 01 sitting Dakota Lucas " blood pressure, site #1 left arm Valentine H ailyn " temperature site oral Valentine medina " height E&M 62 [in_i] Valentine Lucas " height in centimeters E&M 157.48 cm Valentine Lucas oxygen saturation, oximetry 98 % Anthony alexander Obrien " respiratory rate E&M 16 /min Sisi J Lb boyce " pulse rate 78 /min Sisi J Obrien " temperature E&M 98.2 [degF] Sisi J Obrien " blood pressure, diastolic 73 mm[Hg] Sisi J Obrien " blood pressure, systolic 96 mm[Hg] Sisi J Obrien " weight E&M 188.25 lbs. Sisi Catie AsherObrien " weight in kilograms E&M 85.57 kg Sisi Catie Obrien " method used to obtain blood pressure automatic Sisi J Obrien " Blood Pressure Position 01 sitting Tamar e Catie Obrien " blood pressure, site #1 left arm Sisi J Obrien " temperature site oral Sisi Catie Obrien " height E&M 62 [in_i] Sisi Catie Obrien " height in centimeters E&M 157.48 cm Sisi Obrien pulse rate 120 /min Nkechi [place] " blood pressure, diastolic 79 mm[Hg] Azucen a [place] " blood pressure, systolic 120 mm[Hg] Nkechi [place] " respiratory rate E&M 20 /min Nkechi Phani quincy " method used to obtain blood pressure automatic Nkechi [place] " Blood Pressure Position 01 sitting Azuce na [place] " blood pressure, site #1 left arm Nkechi [place] " oxygen saturation, oximetry 99 % Azuc nikolai [place] " temperature site tympanic Nkechi [place] " temperature E&M 97.7 [degF] Nkechi [place] " weight E&M 177 lbs. Nkechi [place] " weight in kilograms E&M 80.45 kg Nkechi [place] " height E&M 62 [in_i] Nkechi [place] " height in centimeters E&M 157.48 cm Azucen a [place] blood pressure, diastolic 74 mm[Hg] Azucen a [place] " blood pressure, systolic 105 mm[Hg] Nkechi [place] " pulse rate 104 /min Nkechi [place] " respiratory rate E&M 16 /min Nkechi Phani quincy " method used to obtain blood pressure automatic Nkechi [place] " Blood Pressure Position 01 sitting Azuce na [place] " blood pressure, site #1 left arm Nkechi [place] " oxygen saturation, oximetry 96 % Azuc nikolai [place] " temperature site tympanic Nkechi [place] " temperature E&M 99 [degF] Nkechi [place] " weight E&M 175 lbs. Nkechi [place] " weight in kilograms E&M 79.55 kg Nkechi [place] " height E&M 62 [in_i] Nkechi [place] " height in centimeters E&M 157.48 cm Azucen a [place] blood pressure, diastolic 50 mm[Hg] Azucen a [place] " blood pressure, systolic 86 mm[Hg] Nkechi [place] " pulse rate 100 /min Nkechi [place] " method used to obtain blood pressure manual Nkechi [place] " Blood Pressure Position 01 sitting Azuce na [place] " blood pressure, site #1 right arm Nkechi [place] " respiratory rate E&M 24 /min Nkechi Phani quincy " oxygen saturation, oximetry 97 % Azuc nikolai [place] " temperature site tympanic Nkechi [place] " temperature E&M 98.2 [degF] Nkechi [place] " weight E&M 169 lbs. Nkechi [place] " weight in kilograms E&M 76.82 kg Nkechi [place] " height E&M 62 [in_i] Nkechi [place] " height in centimeters E&M 157.48 cm Azucen a [place] blood pressure, diastolic 68 mm[Hg] Iesha robertson " blood pressure, systolic 97 mm[Hg] Iesha cook " pulse rate 106 /min Iesha Lucas " oxygen saturation, oximetry 98 % Iesha Lucas " temperature E&M 97.5 [degF] Iesha Lucas " weight E&M 170.13 lbs. Iesha Lucas " weight in kilograms E&M 77.33 kg Iesha negrete " method used to obtain blood pressure automatic Iesha Lucas " Blood Pressure Position 01 sitting Iesha Lucas " blood pressure, site #1 right arm Iesha negrete " temperature site tympanic Iesha Lucas " height E&M 62 [in_i] Iesha Lucas " height in centimeters E&M 157.48 cm Iesha H ailyn blood pressure, diastolic 60 mm[Hg] Azucen a [place] " blood pressure, systolic 108 mm[Hg] Nkechi [place] " pulse rate 75 /min Nkechi [place] " method used to obtain blood pressure manual Nkechi [place] " Blood Pressure Position 01 sitting Azuce na [place] " blood pressure, site #1 right arm Nkechi [place] " respiratory rate E&M 24 /min Nkechi Phani quincy " temperature site tympanic Nkechi [place] " oxygen saturation, oximetry 96 % Azuc nikolai [place] " temperature E&M 99.1 [degF] Nkechi [place] " weight E&M 172 lbs. Nkechi [place] " weight in kilograms E&M 78.18 kg Nkechi [place] " height E&M 62 [in_i] Nkechi [place] " height in centimeters E&M 157.48 cm Azucen a [place] blood pressure, diastolic 79 mm[Hg] Azucen a [place] " blood pressure, systolic 113 mm[Hg] Nkechi [place] " pulse rate 101 /min Nkechi [place] " method used to obtain blood pressure automatic Nkechi [place] " Blood Pressure Position 01 sitting Azuce na [place] " blood pressure, site #1 left arm Nkechi [place] " temperature site tympanic Nkechi [place] " oxygen saturation, oximetry 97 % Azuc nikolai [place] " temperature E&M 97.6 [degF] Nkechi [place] " weight E&M 180.60 lbs. Nkechi [place] " weight in kilograms E&M 82.09 kg Nkechi [place] " height E&M 62 [in_i] Nkechi [place] " height in centimeters E&M 157.48 cm Azucen a [place] oxygen saturation, oximetry 82 % Azuc nikolai [place] " method used to obtain blood pressure automatic Nkechi [place] " Blood Pressure Position 01 sitting Azuce na [place] " blood pressure, site #1 left arm Nkechi [place] " blood pressure, diastolic 83 mm[Hg] Azucen a [place] " blood pressure, systolic 119 mm[Hg] Nkechi [place] " pulse rate 82 /min Nkechi [place] " temperature site tympanic Nkechi [place] " temperature E&M 96.4 [degF] Nkechi [place] " weight E&M 170.40 lbs. Nkechi [place] " weight in kilograms E&M 77.45 kg Nkechi [place] " height E&M 62 [in_i] Nkechi [place] " height in centimeters E&M 157.48 cm Azucen a [place] blood pressure, diastolic 74 mm[Hg] Azucen a [place] " blood pressure, systolic 107 mm[Hg] Nkechi [place] " pulse rate 92 /min Nkechi [place] " method used to obtain blood pressure automatic Nkechi [place] " Blood Pressure Position 01 sitting Azuce na [place] " blood pressure, site #1 left arm Nkechi [place] " temperature site tympanic Nkechi [place] " oxygen saturation, oximetry 94 % Azuc nikolai [place] " temperature E&M 97.2 [degF] Nkechi [place] " weight E&M 147.70 lbs. Nkechi [place] " weight in kilograms E&M 67.14 kg Nkechi [place] " height E&M 62 [in_i] Nkechi [place] " height in centimeters E&M 157.48 cm Azucen a [place] pulse rate 91 /min Jo Valle " blood pressure, diastolic 76 mm[Hg] Bernard Valle " blood pressure, systolic 112 mm[Hg] Jo Valle " oxygen saturation, oximetry 94 % Hubert Valle " temperature site tympanic Jo Valle " temperature E&M 96.9 [degF] Jo Valle " weight E&M 137 lbs. Jo Valle " weight in kilograms E&M 62.27 kg Jo Valle " height E&M 62 [in_i] Jo Valle " height in centimeters E&M 157.48 cm Bernard Valle oxygen saturation, oximetry 94 % Azuc nikolai [place] " method used to obtain blood pressure automatic Nkechi [place] " Blood Pressure Position 01 sitting Azuce na [place] " blood pressure, site #1 left arm Nkechi [place] " blood pressure, diastolic 64 mm[Hg] Azucen a [place] " blood pressure, systolic 89 mm[Hg] Nkechi [place] " pulse rate 103 /min Nkechi [place] " temperature site oral Nkechi [place] " temperature E&M 98.5 [degF] Nkechi [place] " weight E&M 127.40 lbs. Nkechi [place] " weight in kilograms E&M 57.91 kg Nkechisharita [place] " height E&M 62 [in_i] Nkechi [place] " height in centimeters E&M 157.48 cm Azucen a [place] blood pressure, diastolic 62 mm[Hg] Valentine Lucas " blood pressure, systolic 86 mm[Hg] Valentine Lucas " temperature E&M 98.8 [degF] Valentine Lucas " height E&M 62 [in_i] Valentine Lucas " height in centimeters E&M 157.48 cm Valentine Lucas " oxygen saturation, oximetry 93 % Kaleigh Lucas " pulse rate 111 /min Valentine Lucas " weight E&M 137 lbs. Valentine Lucas " weight in kilograms E&M 62.27 kg Valentine robertson " method used to obtain blood pressure manual Valentine Lucas " Blood Pressure Position 01 sitting Dakota Lucas " blood pressure, site #1 right arm Valentine robertson " temperature site temporal Valentine medina ALLERGIES Allergy Name Onset Date Reaction Criticality Status CODEINE High Criticality active PENICILLIN High Criticality active REASON FOR REFERRAL No Information Available RESULTS Date Observation Value Provider Reference Interpretation Loc ation Range rapid plasma reagin Non LinkLog[facility] Non Reactive /01 antibody, serum Reactive " hemoglobin A1C, 6.3 % [facility] 4.8-5.6 High blood, as % of total hemoglobin " HIV-1RNA, serum, by 30 /mL [facility] PCR, quantitative " LDL cholesterol, 87 mg/dL [facility] 0-99 serum " very low density 44 mg/dL [facility] 5-40 High lipoproteins " HDL cholesterol, 32 mg/dL Link[facility]ic >39 Low serum " triglyceride, 220 mg/dL [facility] 0-149 High serum, fasting " cholesterol, serum 163 mg/dL [facility] 100-199 " alanine 15 1/L [facility] 0-32 aminotransferase (SGPT), serum " aspartate 17 1/L [facility] 0-40 aminotransferase (SGOT), serum " alkaline 93 1/L [facility] 39-117 phosphatase, serum " bilirubin, serum, <0.2 mg/dL [facility] 0.0-1.2 total " albumin/globulin 1.7 [facility]ic 1.2-2.2 ratio, serum " globulin, serum 2.4 LinkLogic 1.5-4.5 " albumin, serum 4.0 g/dL [facility] 3.8-4.9 " protein, total, 6.4 g/dL [facility] 6.0-8.5 serum " calcium, serum 9.1 mg/dL [facility] 8.7-10.3 " carbon dioxide, 27 mmol/L [facility] 20-29 venous blood " chloride, serum 100 mmol/L [facility] 96-106 " potassium, serum 4.6 mmol/L [facility] 3.5-5.2 " sodium, serum 139 mmol/L [facility] 134-144 " urea 13 [facility] 12-28 nitrogen/creatinine ratio, serum " eGFR if 110 [facility] >59 Guinean mL/min/((17 3/100).m2) " Estimated 96 [facility] >59 Glomerular mL/min/((17 Filtration Rate 3/100).m2) (calc) " creatinine, serum 0.67 mg/dL [facility] 0.57-1.00 " urea nitrogen, 9 mg/dL [facility] 8-27 blood " blood glucose, 106 mg/dL [facility] 65-99 High random " immature 0 % [facility] Not Estab. granulocytes, percentage of total cells, blood " basophil count, 0.0 [facility] 0.0-0.2 absolute x10E3/uL " Eosinophil Absolute 0.1 [facility] 0.0-0.4 Count X10E3/UL " monocyte count, 0.4 [facility] 0.1-0.9 blood, automated X10E3/UL " lymphocyte count, 1.5 [facility] 0.7-3.1 blood, automated X10E3/UL " Absolute 4.8 [facility] 1.4-7.0 Neutrophils X10E3/UL " basophils as 0 % [facility] Not Estab. percent of blood leukocytes " eosinophils as 1 % [facility] Not Estab. percent of blood leukocytes " monocytes as 6 % [facility] Not Estab. percent of blood leukocytes " lymphocytes as 23 % [facility] Not Estab. percent of blood leukocytes " neutrophils as 70 % [facility] Not Estab. percent of blood leukocytes " platelet count 203 [facility] 150-450 X10E3/UL " red blood cell 12.4 % [facility] 11.7-15.4 distribution width " mean corpuscular 36.0 G/DL [facility] 31.5-35.7 High hemoglobin concentration, RBC " mean corpuscular 34.9 pg [facility] 26.6-33.0 High hemoglobin, RBC " mean corpuscular 97 fL [facility] 79-97 volume, RBC " hematocrit, blood 38.1 % [facility] 34.0-46.6 " hemoglobin, blood 13.7 g/dL [facility] 11.1-15.9 " erythrocyte (RBC) 3.93 [facility] 3.77-5.28 count X10E6/UL " leukocyte count, 6.8 [facility] 3.4-10.8 blood X10E3/UL " CD4/CD8 ratio 1.20 [facility] 0.92-3.72 " T-suppressor cells 27.1 % [facility] 12.0-35.5 (CD8) as percent of blood lymphocytes " absolute CD8 407 [facility] 109-897 " T-helper cells 32.4 % [facility] 30.8-58.5 (CD4) as percent of blood lymphocytes " T-helper cells 486 /UL [facility] 359-1519 (CD4) count rapid plasma reagin Non [facility] Non Reactive /12 antibody, serum Reactive " hemoglobin A1C, 5.6 % [facility] 4.8-5.6 blood, as % of total hemoglobin " HIV-1RNA, serum, by <20 [facility] PCR, quantitative copies/mL " LDL cholesterol, 94 mg/dL [facility] 0-99 serum " very low density 57 mg/dL [facility] 5-40 High lipoproteins " HDL cholesterol, 36 mg/dL [facility] >39 Low serum " triglyceride, 284 mg/dL [facility] 0-149 High serum, fasting " cholesterol, serum 187 mg/dL [facility] 100-199 " alanine 7 1/L [facility] 0-32 aminotransferase (SGPT), serum " aspartate 9 1/L [facility] 0-40 aminotransferase (SGOT), serum " alkaline 93 1/L [facility] 39-117 phosphatase, serum " bilirubin, serum, <0.2 mg/dL [facility] 0.0-1.2 total " albumin/globulin 1.4 [facility] 1.2-2.2 ratio, serum " globulin, serum 2.8 [facility] 1.5-4.5 " albumin, serum 3.9 g/dL [facility] 3.8-4.9 " protein, total, 6.7 g/dL [facility] 6.0-8.5 serum " calcium, serum 9.1 mg/dL [facility] 8.7-10.3 " carbon dioxide, 27 mmol/L [facility]Log[facility] 20-29 venous blood " chloride, serum 99 mmol/L [facility] 96-106 " potassium, serum 4.7 mmol/L [facility] 3.5-5.2 " sodium, serum 140 mmol/L [facility] 134-144 " urea 17 [facility]Log[facility] 12-28 nitrogen/creatinine ratio, serum " eGFR if 100 LinkLogic >59 Guinean mL/min/((17 3/100).m2) " Estimated 87 LinkLogic >59 Glomerular mL/min/((17 Filtration Rate 3/100).m2) (calc) " creatinine, serum 0.75 mg/dL [facility] 0.57-1.00 " urea nitrogen, 13 mg/dL [facility] 8-27 blood " blood glucose, 74 mg/dL [facility] 65-99 random " immature 0 % [facility] Not Estab. granulocytes, percentage of total cells, blood " basophil count, 0.0 [facility] 0.0-0.2 absolute x10E3/uL " Eosinophil Absolute 0.1 [facility] 0.0-0.4 Count X10E3/UL " monocyte count, 0.4 [facility] 0.1-0.9 blood, automated X10E3/UL " lymphocyte count, 1.6 [facility] 0.7-3.1 blood, automated X10E3/UL " Absolute 5.0 [facility] 1.4-7.0 Neutrophils X10E3/UL " basophils as 0 % [facility] Not Estab. percent of blood leukocytes " eosinophils as 1 % [facility] Not Estab. percent of blood leukocytes " monocytes as 6 % [facility] Not Estab. percent of blood leukocytes " lymphocytes as 22 % [facility] Not Estab. percent of blood leukocytes " neutrophils as 71 % [facility] Not Estab. percent of blood leukocytes " platelet count 214 [facility] 150-450 X10E3/UL " red blood cell 12.8 % [facility] 11.7-15.4 distribution width " mean corpuscular 33.4 G/DL [facility] 31.5-35.7 hemoglobin concentration, RBC " mean corpuscular 33.8 pg [facility] 26.6-33.0 High hemoglobin, RBC " mean corpuscular 101 fL [facility] 79-97 High volume, RBC " hematocrit, blood 40.1 % [facility] 34.0-46.6 " hemoglobin, blood 13.4 g/dL [facility] 11.1-15.9 " erythrocyte (RBC) 3.97 [facility] 3.77-5.28 count X10E6/UL " leukocyte count, 7.1 [facility] 3.4-10.8 blood X10E3/UL " CD4/CD8 ratio 1.01 [facility] 0.92-3.72 " T-suppressor cells 28.0 % [facility] 12.0-35.5 (CD8) as percent of blood lymphocytes " absolute CD8 448 Link[facility] 109-897 " T-helper cells 28.4 % [facility] 30.8-58.5 Low (CD4) as percent of blood lymphocytes " T-helper cells 454 /UL [facility] 359-1519 (CD4) count Quantiferon Gold TB Positive [facility] Negative Abnormal blood test for tuberculosis screening hepatitis C <0.1 [facility] 0.0-0.9 antibody, serum " rapid plasma reagin Non [...] serum " eGFR if 118 LinkLogic >59 Guinean mL/min/((17 3/100).m2) " Estimated 102 [facility]Logic >59 [...] serum " eGFR if 115 LinkLogic >59 Guinean mL/min/((17 3/100).m2) " Estimated 100 [facility] >59 [...] fasting " cholesterol, serum 127 mg/dL [facility] [phone] rapid plasma reagin Non [facility]Logic Non Reactive [...] serum " eGFR if 113 LinkLogic >59 Guine[place] mL/min/((17 3/100).m2) " Estimated 98 LinkLogic >59 [...] fasting " cholesterol, serum 119 mg/dL [facility] [phone]/10 Quantiferon Gold TB Negative [facility] Negative blood test for tuberculosis screening [facility] blood test for tuberculosis screening hepatitis C [...] serum " eGFR if 98 LinkLogic >59 Guinean mL/min/((17 3/100).m2) " Estimated 85 [facility]Log[facility] >59 [...] by <20 LinkLog PCR, quantitative copies/mL " LDL cholesterol, 63 [...] serum " eGFR if 111 LinkLogic >59 Guinean mL/min/((17 3/100).m2) " Estimated 96 LinkLogic >59 [...] g/dL [facility] 11.1-15.9 " erythrocyte (RBC) 4.09 LinkLog 3.77-5.28 count X10E6/UL " leukocyte count, 5.1 [facility] 3.4-10.8 blood X10E3/UL " CD4/CD8 ratio 0.85 [facility] 0.92-3.72 Low " T-suppressor cells 29.5 % [facility] 12.0-35.5 (CD8) as percent of blood lymphocytes " absolute CD8 413 [facility] 109-897 " [facility] Low (CD4) as percent of blood lymphocytes " T-helper cells 350 /UL LinkLog [phone] Low (CD4) count rapid plasma reagin Non LinkLog[facility] Non Reactive /16 antibody, serum Reactive " HIV-1RNA, serum, by 50 /mL [facility], quantitative " LDL cholesterol, 63 mg/dL [...] serum " eGFR if 86 LinkLogic >59 Guine[place] mL/min/((17 3/100).m2) " Estimated 74 LinkLogic >59 [...] 3.4-10.8 blood X10E3/UL " CD4/CD8 ratio 0.70 LinkLog 0.92-3.72 Low " T-suppressor cells 27.8 % [facility] 12.0-35.5 (CD8) as percent of blood lymphocytes " absolute CD8 473 LinkLog[facility] 109-897 " T-helper cells 19.4 % [facility]Log 30.8-58.5 Low (CD4) as percent of blood lymphocytes " T-helper cells 330 /UL LinkLog [phone] Low (CD4) count rapid plasma reagin Non LinkLogic Non Reactive /28 antibody, serum Reactive " [place]-1[place] [address] /mL LinkLog PCR, quantitative " LDL cholesterol, 38 mg/dL [...] serum " eGFR if 102 LinkLogic >59 Guinean mL/min/((17 3/100).m2) " Estimated 89 LinkLogic >59 [...] rapid plasma reagin Non LinkLogic Non Reactive / antibody, serum Reactive " [...] serum " eGFR if 106 LinkLogic >59 Guinean mL/min/((17 3/100).m2) " Estimated 92 LinkLogic >59 [...] (CD4) count Quantiferon Gold TB Negative [facility] / blood test for tuberculosis screening " rapid plasma reagin Non [facility]Logic Non Reactive antibody, serum Reactive " HIV-1RNA, serum, by <20 LinkLog PCR, quantitative copies/mL " LDL cholesterol, 53 [...] serum " eGFR if 100 LinkLogic >59 Guine[place] mL/min/((17 3/100).m2) " Estimated 87 LinkLogic >59 [...] [id number] (CD4) count Neisseria Negative [facility] Negative /22 gonorrhoeae DNA probe " chlamydia DNA probe Negative [facility] Negative hepatitis B surface Negative [facility] Negative /04 antigen " hepatitis C 0.2 [facility] 0.0-0.9 [...] serum " eGFR if 117 LinkLogic >59 Guinean mL/min/((17 3/100).m2) " Estimated 102 LinkLogic >59 [...] by <20 LinkLog PCR, quantitative copies/mL " LDL cholesterol, 58 [...] serum " eGFR if 117 LinkLogic >59 Guine[place] mL/min/((17 3/100).m2) " Estimated 102 LinkLogic >59 [...] (CD4) count human leukocyte negative Husam Vital / antigen B57 Quantiferon Gold TB Negative [facility] Negative /21 blood test for tuberculosis screening " HIV-1RNA, serum, by <20 LinkLog PCR, quantitative copies/mL " rapid plasma reagin [...] serum " eGFR if 113 LinkLogic >59 Guine[place] mL/min/((17 3/100).m2) " Estimated 98 LinkLogic >59 [...] serum " eGFR if 105 LinkLogic >59 Guine[place] mL/min/((17 3/100).m2) " Estimated 91 LinkLogic >59 [...] Date Vaccine Dose Lot Number Status completed [email or web address] completed flu vax completed flu vax completed flu vax completed hepbvax#3 1 mL [id number] completed hepbvax#2 1 mL [id number] completed hepbvax#1 1 mL [id number] completed pneumovax 0.5 mL [id number] completed HISTORY OF MEDICATION USE Medication Instructions Dates Provider Comments BUPROPION HCL 75 MG 1 By Mouth Twice a Day Husam Alvarez k ORAL TABLET TRAMADOL HCL 50 MG ORAL 1 Three Times a Day Husam Godwin ek TABLET TRILEPTAL 150 MG ORAL 1 Twice a Day Husam Vital TABLET RISPERDAL 1 MG ORAL 1 by mouth once a day Husam Vital TABLET LANTUS 100 UNIT/ML 32 U sc Every pm Husam Vital SUBCUTANEOUS SOLUTION GABAPENTIN 300 MG ORAL 1 by mouth three times Husam morales CAPSULE a day FANAPT 8 MG ORAL TABLET 1 Twice a Day Husam Vital DEPAKOTE 250 MG ORAL 2 by mouth twice a day Husam Godwin ek TABLET DELAYED RELEASE BREO ELLIPTA 100-25 1 inhalation Every Day Husam Alvarez k MCG/INH INHALATION AEROSOL POWDER BREATH ACTIVATED ASPIRIN 325 MG ORAL 1 By Mouth Every Day Husam Vital TABLET MECLIZINE HCL 25 MG 1 by mouth 3 times a - Husam Vital ORAL TABLET day as needed for dizziness NICOTINE 21-14-7 - Husam Vital MG/24HR TRANSDERMAL KIT NAPROXEN 500 MG ORAL 1 by mouth twice a day - Husam De La Rosaec ek TABLET as needed for pain OMEPRAZOLE CPDR - Husam Vital LIPITOR TABLET Remy Perdomo BENZTROPINE MESYLATE Remy Perdomo TABLET SEROQUEL TABLET - Husam Vital DULOXETINE HCL CAPSULE Remy Perdomo DELAYED RELEASE PARTICLES VENLAFAXINE HCL TABLET - Husam Vital TRIUMEQ 600-50-300 MG One tablet daily with Husam De La Rosaec ek ORAL TABLET or without food SPIRIVA HANDIHALER 18 Inhale 1 cap Every Day Husam Angelo cek MCG INHALATION CAPSULE PROAIR HFA 108 (90 2 puffs every 4 - 6 Husam Vital Base) MCG/ACT hours as needed INHALATION AEROSOL SOLUTION SOCIAL HISTORY Date Observation Value Provider time of call 06/16/2020 1:54 PM Clarence Mcnamara tobacco use (cigarettes, Currently Nkechi [place] cigar, chew, pipe) " smoking status current every day smoker Nkechi [place] " social history E&M . N Nkechi [place] ot homeless. Born in [facility]. City: [place]. State: [place]. N ot employed. Gender of partner(s): male. Sexually Active: No. Sex at : female. " social history reviewed reviewed today Nkechi [place] E&M " Exercise Program Referral T Froilan [place] " Weight Management T Nkechi [place] Counseling Provided " Nutrition intervention Jamin robertson sexual orientation Heterosexual Husam Vital " smoking, advice to quit Yes Husam morales " assessment of health Limited Tai Co ntreras literacy ([facility] 2013 [place] Standards, 3C10) " is there any chance that No Gary o Dugan you could be ? Teresa " passive cigarette smoke No Tai Dugan exposure " if the patient is No Tai Contr eras using/has used a vaping Teresa item, Current, Former, Never Used, Not asked " drug use, illicit Previously Tai Contr eras Teresa " alcohol use Previously Tai Contrer as " tobacco use (cigarettes, Currently Gary o Dugan cigar, chew, pipe) " smoking status current every day smoker Gary o Dugan Teresa " social history E&M . N Tai Dugan ot homeless. Born in [facility]. Teresa City: [place]. State: [place]. N ot employed. Gender of partner(s): male. Sexually Active: No. Sex at : female. " social history reviewed reviewed today Tai Dugan E&M " Exercise Program Referral T Jc pierre Dugan " Weight Management T Tai Contr eras Counseling Provided " Nutrition intervention T Tai Dugan Teresa smoking, advice to quit Yes Husam morales " drug use, illicit Previously Tai Contr eras " alcohol use Previously Tai Contrer as " social history E&M . N Tai Dugan ot homeless. Born in [facility]. Teresa City: [place]. State: [place]. N ot employed. Gender of partner(s): male. Sexually Active: No. Sex at : female. " social history reviewed reviewed today Tai Dugan E&M " assessment of health Limited Tai Co ntreras literacy ([facility] 2013 [place] Standards, 3C10) " sexual orientation Heterosexual Tai Cont reras " is there any chance that No Gary o Dugan you could be ? Teresa " passive cigarette smoke No Tai Dugan exposure " smoking status current every day smoker Gary o Dugan Teresa " Exercise Program Referral T Jc do Dugan Teresa " Weight Management T Tai Contr eras Counseling Provided Teresa " Nutrition intervention T Tai Dugan Teresa sexual orientation Heterosexual Husam Vital " smoking, advice to quit Yes Husam morales " assessment of health Limited Nkechi Phani quin[place] literacy ([facility] 2014 Standards, 3C10) " smoking status current every day smoker Nkechi [place] " drug use, illicit Previously Nkechi [place] " alcohol use Previously Nkechi [place] " social history E&M . N Nkechi [place] ot homeless. Born in [place] City: [place]. State: [place]. N ot employed. Gender of partner(s): male. Sexually Active: No. Sex at : female. " social history reviewed reviewed today Nkechi [place] E&M " Exercise Program Referral T Azloyda a [place] " Weight Management T Nkechi [place] Counseling Provided " Nutrition intervention T Nkechi robertson time of call 06/06/2019 3:18 PM Meka Nan sexual orientation Heterosexual Husam Vital " smoking, advice to quit Yes Husam morales " drug use, illicit Previously Valentine Valentin ez " alcohol use Previously Valentine Lance " social history E&M . N Valentine Lance ot homeless. Born in [place] City[place]. State: [place]. N ot employed. Gender of partner(s): male. Sexually Active: No. Sex at : female. " social history reviewed reviewed today Valentine robertson E&M " is there any chance that No Valentine Lucas you could be ? " assessment of health Limited Valentine Ohara andez literacy ([facility] 2014 Standards, 3C10) " Exercise Program Referral T Valentine Lucas " Weight Management T Valentine nand ez Counseling Provided " Nutrition intervention T Valentine cook " passive cigarette smoke No Valentine robertson exposure " smoking status current every day smoker Valentine Lucas time of call 12/25/2018 10:52 AM Phi estrada sexual orientation Heterosexual Husam Vital " smoking, advice to quit Yes Husam Nem ecek " Exercise Program Referral T Husam fairchild " Weight Management T Husam Vital Counseling Provided " Nutrition intervention T Husam conway " drug use, illicit Previously Sisi J Obrien " alcohol use Previously Sisi J Obrien " social history E&M . N Sisialexander Ashremez ot homeless. Born in [place] City[place]. State: [place]. N ot employed. Gender of partner(s): male. Sexually Active: No. Sex at : female. " social history reviewed reviewed today Sisi J Obrien E&M " passive cigarette smoke No Sisi J Obrien exposure " smoking status current every day smoker Sisi Garnettz sexual orientation Heterosexual Husam Vital " smoking, advice to quit Yes Husam De La Rosa ecek " drug use, illicit Previously Nkechi [place] " alcohol use Previously Nkechi [place] " social history E&M . N Nkechi [place] ot homeless. Born [place] City[place]. State: [place]. N ot employed. Gender of partner(s): male. Sexually Active: No. Sex at : female. " social history reviewed reviewed today Nkechi [place] E&M " passive cigarette smoke Yes Nkechi [place] exposure " smoking status current every day smoker Nkechi [place] " assessment of health Limited Nkechi Phani quin[place] literacy ([facility] 2014 Standards, 3C10) " Exercise Program Referral T Froilan [place] " Weight Management T Nkechi [place] Counseling Provided " Nutrition intervention T Nkechi robertson smoking, advice to quit Yes Husam De La Rosa ecventura " sexual orientation Heterosexual Husam Vital " passive cigarette smoke No Nkechi [place] exposure " assessment of health Limited Nkechi Phani quin[place] literacy ([facility] 2014 Standards, 3C10) " smoking status current every day smoker Nkechi [place] " drug use, illicit Previously Nkechi [place] " alcohol use Previously Nkechi [place] " social history E&M . N Nkechi [place] ot homeless. [place] City[place]. State: [place]. N ot employed. Gender of partner(s): male. Sexually Active: No. Sex at : female. " social history reviewed reviewed today Nkechi [place] E&M " Exercise Program Referral T Azucen a [place] " Weight Management T Nkechi [place] Counseling Provided " Nutrition intervention T Nkechi robertson smoking, advice to quit Yes Husam moraels " drug use, illicit Previously Nkechi [place] " alcohol use Previously Nkechi [place] " cigarettes, number smoked 5-6 Azucen a [place] per day " social history E&M . N Nkechi [place] ot homeless. Born in [facility]. City: [place]. State: [place]. N ot employed. Gender of partner(s): male. Sexually Active: No. Sex at : female. " social history reviewed reviewed today Nkechi [place] E&M " smoking status current every day smoker Nkechi [place] " is there any chance that No Nkechi Montana you could be ? " passive cigarette smoke No Nkechi [place] exposure " assessment of health Adequate Nkechi Phani quin[place] literacy ([facility] 2014 Standards, 3C10) social history E&M . N Husam Vital ot homeless. Born in [facility]. City: [place]. State: [place]. N ot employed. Gender of partner(s): male. Sexually Active: No. Sex at : female. " social history reviewed reviewed today Husam morales E&M " smoking, advice to quit Yes Husam morales " Exercise Program Referral T Husam fairchild " Weight Management T Husam Vital Counseling Provided " Nutrition intervention T Husam conway " drug use, illicit Previously Sycamore Lance " alcohol use Previously Iesha Lance " cigarettes, number smoked 10 a day Iesha H ailyn per day " smoking status current every day smoker Iesha He rnandez " sexual orientation Heterosexual Iesha Anup z " passive cigarette smoke No Sycamore Her nandez exposure " assessment of health Adequate Husam hopkins literacy ([facility] 2014 Standards, 3C10) smoking, advice to quit Yes Husam morales " drug use, illicit Previously Nkechi [place] " alcohol use Previously Nkechi [place] " social history E&M . N Nkechi [place] ot homeless. Born in [facility]. City: [place]. State: [place]. N ot employed. Gender of partner(s): male. Sexually Active: No. Sex at : female. " social history reviewed reviewed today Nkechi [place] E&M " is there any chance that No Nkechi [place] you could be ? " sexual orientation Heterosexual Nkechi Phaniil a " smoking status current every day smoker Nkechi [place] " assessment of health Adequate Nkechi Phani [place] literacy ([facility] 2014 Standards, 3C10) " Exercise Program Referral T Azucen a [place] " Weight Management T Nkechi [place] Counseling Provided " Nutrition intervention T Nkechi D robertson sexual orientation Heterosexual Husam Vital " smoking, advice to quit Yes Husam De La Rosa ecek " drug use, illicit Previously Nkechi [place] " alcohol use Previously Nkechi [place] " social history E&M . N Nkechi [place] ot homeless. Born in [facility]. City: [place]. State: [place]. N ot employed. Gender of partner(s): male. Sexually Active: No. Sex at : female. " social history reviewed reviewed today Nkechi [place] E&M " passive cigarette smoke No Nkechi [place] exposure " smoking status current every day smoker Nkechi [place] " Exercise Program Referral T Azucen a [place] " Weight Management T Nkechi [place] Counseling Provided " Nutrition intervention T Nkechi D robertson chewing tobacco use No Malu Hu rst " cigar use No Malu Hurst " cigarette use Yes Malu Hurst " tobacco use (cigarettes, Currently Katheri ne Hurst cigar, chew, pipe) " smoking status current every day smoker Katheri ne Hurst sexual orientation Heterosexual Husam Vital " smoking, advice to quit Yes Husam Nem ecek " Exercise Program Referral T Husam fairchild " Weight Management T Husam Vital Counseling Provided " Nutrition intervention T Husam conway " alcohol use Previously Nkechi [place] " social history E&M . N Nkechi [place] ot homeless. Born in [facility]. City: [place]. State: [place]. N ot employed. Gender of partner(s): male. Sexually Active: No. Sex at : female. " social history reviewed reviewed today Nkechi [place] E&M " is there any chance that No Nkechi Montana you could be ? " passive cigarette smoke No Nkechi [place] exposure " cigarettes, number smoked 2-3 Azucen a [place] per day " smoking status current every day smoker Nkechi [place] Exercise Program Referral Jamin fairchild " Weight Management Jamin Vital Counseling Provided " Nutrition intervention Jamin conway " alcohol use Previously Nkechi [place] " social history E&M . N Nkechi [place] ot homeless. [place]. State: [place]. N ot employed. Gender of partner(s): male. Sexually Active: No. Sex at : female. " social history reviewed reviewed today Nkechi [place] E&M " is there any chance that No Nkechi Montana you could be ? " passive cigarette smoke No Nkechi [place] exposure " cigarettes, number smoked 1-2 Azucen a [place] per day " smoking status current every day smoker Nkechi [place] drug use, illicit Previously Jo toussaint " alcohol use Previously Channin Leonard " cigarettes, number smoked 1-2 Channi n Leonard per day " smoking status current every day smoker Channin Leonard sexual orientation Heterosexual Husam Vital " social history E&M . N Husam Vital ot homeless. [place]. State: [place]. N ot employed. Gender of partner(s): male. Sexually Active: No. Sex at : female. " social history reviewed reviewed today Husam morales E&M " passive cigarette smoke No Nkechi [place] exposure " smoking status current every day smoker Nkechi Montana sexual orientation Heterosexual Husam Vital " What type of drug was used cocaine Husam Vital " social history E&M . N Valentine Lucas ot homeless. Born [place] City[place]. State: [place]. N ot employed. Gender of partner(s): male. Sexually Active: No. Sex at : female. " drug use, illicit Previously Husam Vital " alcohol use Previously Husam Vital " sex at female Valentine Lucas " patient considered to be No Valentine Lucas homeless " social history reviewed reviewed today Valentine H ailyn E&M " passive cigarette smoke No Valentine H ailyn exposure " cigarettes, number smoked 5-6 Valentine Lucas per day " smoking status current every day smoker Valentine Lucas FUNCTIONAL STATUS No Information Available MENTAL STATUS Date Observation Value Provider assessment of mood and no depression, anxiety, J ohn Nemecek affect E&M or agitation " Generalized Anxiety Disorder 0 Debbie ro [place] Questionnaire - Question 2 " Generalized Anxiety Disorder 0 Debbie ro [place] Questionnaire - Question 1 assessment of mood and no depression, anxiety, J ohn Nemecek affect E&M or agitation " Generalized Anxiety Disorder 0 Juan neda Dugan Teresa Questionnaire - Question 2 " Generalized Anxiety Disorder 0 Juan neda Dugan Teresa Questionnaire - Question 1 assessment of mood and no depression, anxiety, J ohn Nemecek affect E&M or agitation " Generalized Anxiety Disorder 0 Juan neda Dugan Teresa Questionnaire - Question 2 " Generalized Anxiety Disorder 0 Juan neda Dugan Teresa Questionnaire - Question 1 assessment of mood and no depression, anxiety, J ohn Nemecek affect E&M or agitation " Generalized Anxiety Disorder 0 Debbie ro [place] Questionnaire - Question 2 " Generalized Anxiety Disorder 0 Debbie ro [place] Questionnaire - Question 1 assessment of mood and no depression, anxiety, J ohn Nemecek affect E&M or agitation " Generalized Anxiety Disorder 0 Darci nca Lance Questionnaire - Question 2 " Generalized Anxiety Disorder 0 Darci nca Lance Questionnaire - Question 1 assessment of mood and no depression, anxiety, J ohn Nemecek affect E&M or agitation " Generalized Anxiety Disorder 0 Yvon ole J Obrien Questionnaire - Question 2 " Generalized Anxiety Disorder 0 Yvon ole J Obrien Questionnaire - Question 1 assessment of mood and no depression, anxiety, J ohn Nemecek affect E&M or agitation " Generalized Anxiety Disorder 0 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 [place] Questionnaire - Question 2 " Generalized Anxiety Disorder 0 Debbie ro [place] Questionnaire - Question 1 assessment of mood and no depression, anxiety, J ohn Nemecek affect E&M or agitation " Generalized Anxiety Disorder 0 Debbie ro [place] Questionnaire - Question 2 " Generalized Anxiety Disorder 0 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 [place] Questionnaire - Question 1 assessment of mood and no depression, anxiety, J ohn Nemecek affect E&M or agitation " Generalized Anxiety Disorder 0 Debbie ro [place] Questionnaire - Question 2 " Generalized Anxiety Disorder 0 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 [place] Questionnaire - Question 1 assessment of mood and no depression, anxiety, J ohn Nemecek affect E&M or agitation " Generalized Anxiety Disorder 0 Ine z Lance Questionnaire - Question 2 " Generalized Anxiety Disorder 0 Ine z Lance Questionnaire - Question 1 assessment of mood and no depression, anxiety, J ohn Nemecek affect E&M or agitation " Generalized Anxiety Disorder 0 Debbie ro [place] Questionnaire - Question 2 " Generalized Anxiety Disorder 0 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 [place] Questionnaire - Question 1 assessment of mood and no depression, anxiety, J ohn Nemecek affect E&M or agitation " Generalized Anxiety Disorder 0 Debbie ro [place] Questionnaire - Question 2 " Generalized Anxiety Disorder 0 Debbie ro [place] Questionnaire - Question 1 assessment of mood and no depression, anxiety, J ohn Nemecek affect E&M or agitation " Generalized Anxiety Disorder 1 Debbie ro [place] Questionnaire - Question 2 " Generalized Anxiety Disorder 1 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 [place] Questionnaire - Question 1 Generalized Anxiety Disorder 1 Debbie ro [place] Questionnaire - Question 2 " Generalized Anxiety Disorder 1 Debbie ro [place] Questionnaire - Question 1 Generalized Anxiety Disorder 1 Ning nnin Leonard Questionnaire - Question 2 " Generalized Anxiety Disorder 2 Ning nnin Leonard Questionnaire - Question 1 Generalized Anxiety Disorder 0 Debbie ro [place] Questionnaire - Question 2 " Generalized Anxiety Disorder 0 Debbie ro [place] Questionnaire - Question 1 Generalized Anxiety Disorder 0 Darci nca Lance Questionnaire - Question 2 " Generalized Anxiety Disorder 0 Darci nca Lance Questionnaire - Question 1 MEDICAL EQUIPMENT No Information Available FAMILY HISTORY No Information Available INSURANCE PROVIDERS Payer name Policy type / Coverage type Covered part y ID Sliding Fee - Cat 1 [employer] [id number] *Arthur White 0-100% Other [id number] 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 Metabolic Panel (14) CBC With Differential/Platel et CD4/CD8 Ratio Profile Lipid Panel RNA, Real Time PCR (Graph) Hemoglobin A1c RPR, Rfx Qn RPR/Confirm TP Comp. Metabolic Panel (14) CBC With Differential/Platel et CD4/CD8 Ratio Profile Lipid Panel RNA, Real Time PCR (Graph) Hemoglobin A1c QuantiFERON TB Gold Plus HCV Antibody RPR, Rfx Qn RPR/Confirm TP Comp. Metabolic Panel (14) CBC With Differential/Platel et CD4/CD8 Ratio Profile Lipid Panel RNA, Real Time PCR (Graph) RPR, Rfx Qn RPR/Confirm TP Comp. Metabolic Panel (14) CBC With Differential/Platel et CD4/CD8 Ratio Profile Lipid Panel RNA, Real Time PCR (Graph) RPR, Rfx Qn RPR/Confirm TP Comp. Metabolic Panel (14) CBC With Differential/Platel et CD4/CD8 Ratio Profile Lipid Panel RNA, Real Time PCR (Graph) QuantiFERON - TB Gold ( Cli ent Incubated ) HCV Antibody RPR, Rfx Qn RPR/Confirm TP Comp. Metabolic Panel (14) CBC With Differential/Platel et CD4/CD8 Ratio Profile Lipid Panel RNA, Real Time PCR (Graph) RPR, Rfx Qn RPR/Confirm TP Comp. Metabolic Panel (14) CBC With Differential/Platel et CD4/CD8 Ratio Profile Lipid Panel RNA, Real Time PCR (Graph) RPR, Rfx Qn RPR/Confirm TP Comp. Metabolic Panel (14) CBC With Differential/Platel et CD4/CD8 Ratio Profile Lipid Panel RNA, Real Time PCR (Graph) RPR, Rfx Qn RPR/Confirm TP Comp. Metabolic Panel (14) CBC With Differential/Platel et CD4/CD8 Ratio Profile Lipid Panel RNA, Real Time PCR (Graph) FIT- Fecal immunoassay test RPR, Rfx Qn RPR/Confirm TP Comp. Metabolic Panel (14) CBC With Differential/Platel et CD4/CD8 Ratio Profile RNA, Real Time PCR (Graph) QuantiFERON TB Gold (In Tube ) Lipid Panel RPR, Rfx Qn RPR/Confirm TP Comp. Metabolic Panel (14) CD4/CD8 Ratio Profile RNA, Real Time PCR (Graph) Chlamydia/GC Amplification ( Urine) Vitamin D, 25-Hydroxy HBsAg Screen HCV Antibody Lipid Panel RPR, Rfx Qn RPR/Confirm TP Comp. Metabolic Panel (14) CD4/CD8 Ratio Profile RNA, Real Time PCR (Graph) Lipid Panel RPR, Rfx Qn RPR/Confirm TP Comp. Metabolic Panel (14) CD4/CD8 Ratio Profile RNA, Real Time PCR (Graph) QuantiFERON TB Gold (In Tube ) HLA [id number] Test Lipid Panel RPR, Rfx Qn RPR/Confirm TP Comp. Metabolic Panel (14) CD4/CD8 Ratio Profile RNA, Real Time PCR (Graph) Toxoplasma gondii Ab, IgG, Q n RPR RNA, Real Time PCR (Graph) Lipid Panel HIV 1/2 ANTIGEN/ANTIBODY, FO URTH GENERATION W/RFL HCV Antibody HBsAg Screen Hep [...] Est Level III Primary Care Medical Case Lan yu Est Patient Detailed - [id number] Primary Care Service Linkage Ofc Vst, Est Level III Primary Care - Assesment-April ef - SLW Primary Care Service Linkage Ofc Vst, New Level IV Vision Handling of specimen for tra nsfer Venipuncture HISTORY OF PROCEDURES Procedure Date Procedure Name Provider Procedure Notes Status Primary Care Medical Dilma Hunt Time spent with comp leted Case Management patient: 20 Primary Care Service Zee Rodriguez Time spent with completed Linkage patient:68 Primary Care - Zee Rodrgiuez Time spent with compl eted Assesment-Brief - SLW patient:15 Primary Care Service Zee Rodriguez Time spent with completed Linkage patient:65 Venipuncture Elodia Cespedes completed GOALS No Information Available HEALTH CONCERNS No Information Available
[2020-07-31] MEDS ORDERED: NA CHLORIDE 0.9% 1,000 ML ONE (23:33)
[2020-08-01 00:03] LABS: Basophils % 0.5 % (0-1.3); Hematocrit 38.5 % (36.0-45.0); Lymphocytes % 37.3 % (15.3-44.8); MPV 8.9 fL (7.6-11.3); RBC Red Blood Cell Count 3.73 M/uL (3.86-4.86)
[2020-08-01 00:07] LABS: Protime INR 0.87
[2020-08-01 00:33] LABS: ALT/SGPT 16 U/L (12-78); AST/SGOT 7 U/L (15-37); Albumin 2.7 g/dL (3.4-5.0); Alkaline Phosphatase 83 U/L (45-117); BUN Blood Urea Nitrogen 12 mg/dL (7-18); Bicarbonate 31 mmol/L (21-32); Bilirubin Direct < 0.1 mg/dL (0-0.2); Bilirubin Total 0.1 mg/dL (0.2-1.0); Ferritin 25.1 ng/mL (8-388); Glucose Level 109 mg/dL (74-106); Lipase 56 U/L (73-393); Magnesium 1.7 mg/dL (1.8-2.4); NT PRO-BNP 33 pg/mL (<125); Protein, Total 6.2 g/dL (6.4-8.2); Sodium Level 141 mmol/L (136-145); Troponin (Emerg Dept Use Only) < 0.02 ng/mL (0.0-0.045)
[2020-08-01 00:49] LABS: Urine Bacteria LOADED /HPF (<20); Urine Culture Reflex Order NOT NEEDED; Urine Mucus 2+ /HPF (NONE SEEN)
[2020-08-01 00:54] LABS: Urine Blood TRACE (NEG); Urine Glucose NEGATIVE (NEG); Urine Protein 1+ (NEG); Urine Specific Gravity >1.030 (1.005-1.030); Urine pH 5.5 (5.0-7.0)
[2020-08-01 00:56] LABS: Arterial Blood Carboxyhemoglob 4.2 % (0-1.5); Blood O2 Saturation 96.7 % (92-98.5)
[2020-08-01] MEDS ORDERED: CIPROFLOXACIN 400mg IV 400 MG/200 ML BAG IV ONE (02:00)
--- NOTE | 2020-08-01 02:14 | EDPHYS ---
Physician Documentation [facility] Name: Lucia Arias Age: 59 yrs Sex: Female : 1960 Arrival Date: 07/31/2020 Time: 22:41 Bed 15 Private MD: ED Physician Karsten Maharaj HPI: 07/31 23:21 This 59 yrs old Female presents to ER via EMS with complaints of COPD pkl Exacerbation. 23:21 The patient has shortness of breath at rest. Onset: The symptoms/episode began/occurred pkl 1 week(s) ago. Associated signs and symptoms: Pertinent positives: productive cough. The patient has experienced similar episodes in the past, several times. Historical: - Allergies: 22:49 Codeine; bb 22:49 Demerol; bb 22:49 PENICILLINS; bb 22:49 Sulfa (Sulfonamide Antibiotics); bb - PMHx: 22:49 Angina; Anxiety; ATHEROSCLEROSIS; Bipolar disorder; CAD; Chronic pain; COPD; bb Depression; Diabetes - IDDM; GERD; HIV; Hyperlipidemia; LACK OF COORDINATION; MUSCLE WEAKNESS; neuropathy; Schizophrenia; vitamin d deficiency; - Immunization history:: Adult Immunizations unknown. - Social history:: Smoking status: Patient reports the use of cigarette tobacco products, 2 or 3 cigarettes daily. ROS: 23:21 Eyes: Negative for injury, pain, redness, and discharge, ENT: Negative for injury, pkl pain, and discharge, Neck: Negative for injury, pain, and swelling, Cardiovascular: Negative for chest pain, palpitations, and edema. 23:21 Respiratory: Positive for cough, with green sputum, shortness of breath, at rest. 23:21 Abdomen/GI: Negative for abdominal pain, nausea, vomiting, and diarrhea. 23:21 Back: Negative for acute changes. 23:21 : Negative for urinary symptoms. 23:21 MS/extremity: Negative for acute changes. 23:21 Skin: Negative for rash. 23:21 Neuro: Negative for altered mental status. Exam: 23:21 Head/Face: Normocephalic, atraumatic. Eyes: Pupils equal round and reactive to light, pkl extra-ocular motions intact. Lids and lashes normal. Conjunctiva and sclera are non-icteric and not injected. Cornea within normal limits. Periorbital areas with no swelling, redness, or edema. ENT: Nares patent. No nasal discharge, no septal abnormalities noted. Tympanic membranes are normal and external auditory canals are clear. Oropharynx with no redness, swelling, or masses, exudates, or evidence of obstruction, uvula midline. Mucous membranes moist. Neck: Trachea midline, no thyromegaly or masses palpated, and no cervical lymphadenopathy. Supple, full range of motion without nuchal rigidity, or vertebral point tenderness. No Meningismus. Chest/axilla: Normal chest wall appearance and motion. Nontender with no deformity. No lesions are appreciated. Cardiovascular: Regular rate and rhythm with a normal S1 and S2. No gallops, murmurs, or rubs. Normal PMI, no JVD. No pulse deficits. 23:21 Respiratory: the patient does not display signs of respiratory distress, Respirations: normal, Breath sounds: bronchial sounds, that are mild, are scattered, rhonchi, that are mild, are scattered. 23:21 Abdomen/GI: Exam negative for acute changes. 23:21 Back: Exam negative for acute changes. 23:21 : Exam negative for acute changes. 23:21 Musculoskeletal/extremity: Exam is negative for acute changes. 23:21 Skin: Exam negative for rash. 23:21 Neuro: Orientation: is normal, Mentation: is normal, Cranial nerves: grossly normal, Motor: is normal. Vital Signs: 22:45 BP 115 / 62; Pulse 88; Resp 18 S; Temp 98.4(O); Pulse Ox 95% on 4 lpm NC; Weight 90.26 bb kg (R); Height 5 ft. 2 in. (157.48 cm) (R); 23:00 BP 109 / 65; Pulse 79; Resp 14; Pulse Ox 100% on 2 lpm NC; Pain 0/10; vc / 00:30 BP 119 / 73; Pulse 82; Resp 13; Pulse Ox 97% on 2 lpm NC; Pain 0/10; vc 01:00 BP 117 / 79; Pulse 77; Resp 14; Pulse Ox 100% on 2 lpm NC; Pain 0/10; vc 01:59 BP 125 / 65; Pulse 81; Resp 17; Pulse Ox 96% on R/A; Pain 0/10; vc 03:00 BP 125 / 78; Pulse 78; Resp 16; Pulse Ox 98% on R/A; vc 04:00 BP 120 / 72; Pulse 81; Resp 14; Pulse Ox 93% on R/A; vc 05:00 BP 122 / 71; Pulse 79; Resp 16; Temp 97.2; Pulse Ox 93% on R/A; Pain 0/10; vc 06:00 BP 119 / 76; Pulse 90; Resp 17; Pulse Ox 94% on R/A; vc 06:35 BP 125 / 70; Pulse 89; Resp 17; Pulse Ox 93% on R/A; vc 07:00 BP 120 / 76; Pulse 93; Resp 13; Pulse Ox 96% ; bp 08:00 BP 91 / 67; Pulse 95; Resp 19; Pulse Ox 95% ; bp 07/31 22:45 Body Mass Index 36.40 (90.26 kg, 157.48 cm) bb MDM: 07/31 22:45 Patient medically screened. pkl 08/01 02:09 Data reviewed: vital signs, nurses notes, lab test result(s), EKG, radiologic studies, pkl CT scan, plain films. ED course: Patient feeling better. Patient not in any distress. Discussed lab. and imaging studies with patient. Advised to follow up with PCP in 2 to 3 days. To return if necessary. Patient understood instructions. 07/31 23:10 Order name: Basic Metabolic Panel pkl 07/31 23:10 Order name: CBC with Diff; Complete Time: 00:22 pkl 07/31 23:10 Order name: LFT's pkl 07/31 23:10 Order name: Magnesium pkl 07/31 23:10 Order name: NT PRO-BNP; Complete Time: 00:35 pkl 07/31 23:10 Order name: PT-INR; Complete Time: 00:22 pkl 07/31 23:10 Order name: Troponin (emerg Dept Use Only); Complete Time: 00:35 pkl 07/31 23:10 Order name: Blood Culture Adult (2) pkl 07/31 23:10 Order name: C-Reactive Protein; Complete Time: 00:35 pkl 07/31 23:10 Order name: COVID-19 pkl 07/31 23:10 Order name: D-Dimer; Complete Time: 00:22 pkl 07/31 23:10 Order name: Ferritin; Complete Time: 00:35 pkl 07/31 23:10 Order name: Flu; Complete Time: 00:35 pkl 07/31 23:10 Order name: Lactate; Complete Time: 00:22 pkl 07/31 23:10 Order name: XRAY Chest (1 view) pkl 07/31 23:10 Order name: EKG; Complete Time: 23:12 pkl 07/31 23:10 Order name: Lipase; Complete Time: 00:35 pkl 07/31 23:10 Order name: Procalcitonin; Complete Time: 00:35 pkl 07/31 23:10 Order name: Ptt, Activated; Complete Time: 00:22 pkl 07/31 23:10 Order name: Strep; Complete Time: 00:35 pkl 07/31 23:10 Order name: Urine Microscopic Only; Complete Time: 01:19 pkl 07/31 23:11 Order name: Basic Metabolic Panel; Complete Time: 00:35 EDMS 07/31 23:11 Order name: Liver (Hepatic) Function; Complete Time: 00:35 EDMS 07/31 23:11 Order name: Magnesium; Complete Time: 00:35 EDMS 08/01 00:01 Order name: Urine Dipstick--Ancillary (enter results); Complete Time: 01:04 mw2 08/01 00:33 Order name: CT Chest Wo Con pkl 08/01 00:33 Order name: Throat Culture EDMS 08/01 00:35 Order name: ABG; Complete Time: 01:19 pkl 07/31 23:10 Order name: Cardiac monitoring; Complete Time: 00:02 pkl 07/31 23:10 Order name: EKG - Nurse/Tech; Complete Time: 00:30 pkl 07/31 23:10 Order name: IV Saline Lock; Complete Time: 00:02 pkl 07/31 23:10 Order name: Labs collected and sent; Complete Time: 00:02 pkl 07/31 23:10 Order name: O2 Per Protocol; Complete Time: 00:02 pkl 07/31 23:10 Order name: O2 Sat Monitoring; Complete Time: 00:01 pkl 07/31 23:10 Order name: Droplet/Contact Precautions; Complete Time: 00:00 pkl 07/31 23:10 Order name: Urine Dipstick-Ancillary (obtain specimen); Complete Time: 00:00 pkl Administered Medications: 07/31 23:59 Drug: NS 0.9% 1000 ml Route: IV; Rate: 100 ml/hr; Site: right antecubital; vc 08/01 01:52 Drug: Ciprofloxacin 400 mg Volume: 200 ml; Route: IVPB; Infused Over: 60 mins; Site: bb right antecubital; 03:00 Follow up: IV Status: Completed infusion; IV Intake: 200ml vc Disposition: 08/01/20 02:13 Discharged to Home. Impression: COPD exacerbation. Urinary tract infection. - Condition is Stable. - Prescriptions for Cipro 500 mg Oral Tablet - take 1 tablet by ORAL route every 12 hours for 7 days; 14 tablet. - Medication Reconciliation Form, Thank You Letter, Antibiotic Education, Prescription Opioid Use form. - Follow up: Private Physician; When: 2 - 3 days; Reason: Re-evaluation by your physician. - Problem is new. - Symptoms have improved. Signatures: Dispatcher [employer] EDMS Karsten Maharaj MD MD pkl Ballard, Brenda, RN RN bb Smirch, Shelby, RN RN ss Billy Mcfadden, PLATFORM ARCHITECT-C PLATFORM ARCHITECT-Cla1 Lindsay Davila RN RN vc Corrections: (The following items were deleted from the chart) 09:32 02:13 08/01/2020 02:13 Discharged to Home. Impression: COPD exacerbation. Urinary tract ss infection. Condition is Stable. Forms are Medication Reconciliation Form, Thank You Letter, Antibiotic Education, Prescription Opioid Use. Follow up: Private Physician; When: 2 - 3 days; Reason: Re-evaluation by your physician. Problem is new. Symptoms have improved. pkl
--- NOTE | 2020-08-01 02:14 | ER ---
Nurse's Notes [facility] Name: Lucia Arias Age: 59 yrs Sex: Female : 1960 Arrival Date: 07/31/2020 Time: 22:41 Bed 15 Private MD: Diagnosis: COPD exacerbation. Urinary tract infection Presentation: 07/31 22:45 Chief complaint: EMS states: they were toned out to [facility] for report of pt with bb SOB x 1 week. Coronavirus screen: shortness of breath, Client presents with at least one sign or symptom that may indicate coronavirus-19. Standard/surgical mask placed on the client. Ebola Screen: No symptoms or risks identified at this time. Initial Sepsis Screen: Does the patient meet any 2 criteria? No. Patient's initial sepsis screen is negative. Does the patient have a suspected source of infection? No. Patient's initial sepsis screen is negative. Risk Assessment: Do you want to hurt yourself or someone else? Patient reports no desire to harm self or others. Onset of symptoms was June 2020. Care prior to arrival: Medication(s) given: Normal saline infusion, 500 mL, solu-medrol 125 mg IV initiated. 18 GA, in the right antecubital area, Glucose check: 133 Oxygen administered. via nasal cannula. 22:45 Method Of Arrival: EMS: [facility] bb 22:45 Acuity: LATONYA 3 bb Historical: - Allergies: 22:49 Codeine; bb 22:49 Demerol; bb 22:49 PENICILLINS; bb 22:49 Sulfa (Sulfonamide Antibiotics); bb - PMHx: 22:49 Angina; Anxiety; ATHEROSCLEROSIS; Bipolar disorder; CAD; Chronic pain; COPD; bb Depression; Diabetes - IDDM; GERD; HIV; Hyperlipidemia; LACK OF COORDINATION; MUSCLE WEAKNESS; neuropathy; Schizophrenia; vitamin d deficiency; - Immunization history:: Adult Immunizations unknown. - Social history:: Smoking status: Patient reports the use of cigarette tobacco products, 2 or 3 cigarettes daily. Screenin:02 Abuse screen: Denies threats or abuse. Nutritional screening: No deficits noted. vc Tuberculosis screening: No symptoms or risk factors identified. Fall Risk None identified. Assessment: 22:59 General: Appears in no apparent distress. uncomfortable, Behavior is calm, cooperative, vc appropriate for age. Pain: Denies pain. Neuro: Level of Consciousness is awake, alert, obeys commands, Oriented to person, place, time, situation, Appropriate for age. Cardiovascular: Capillary refill < 3 seconds Patient's skin is warm and dry. Respiratory: Airway is patent Respiratory effort is even, unlabored, Respiratory pattern is regular, symmetrical. GI: Abdomen is round obese. : No signs and/or symptoms were reported regarding the genitourinary system. EENT: Derm: Skin is intact, is healthy with good turgor, Skin temperature is cool. 08/01 00:00 Reassessment: states still feels SOB. Patient denies pain at this time. vc 00:40 Reassessment: Patient laying with eyes closed, chest rising and falling equally appears vc non labored. 01:56 Reassessment: Patient placed on room air, will continue to monitor oxygen saturation. vc 02:06 Reassessment: Patient and/or family updated on plan of care and expected duration. Pain vc level reassessed. Patient is alert, oriented x 3, equal unlabored respirations, skin warm/dry/pink. New brief placed on patient, no complaint of pain at this time, patient repositioned on stretcher, current SpO2 on room air is 97%, Will continue to monitor. 02:19 Reassessment: Notified [facility] that patient is up for discharge. [facility] nurse will call us with transportation information. 02:22 Reassessment: Crystal at [facility] returned phone call stating they are vc unable to arrange transportation for patient back to their facility until 0600. 02:27 Reassessment: attempted to call pt's son Husam Arias [phone] no answer for bb transportation back to [facility]. 03:00 Reassessment: Patient laying with eyes closed, chest rising and falling equally, non vc labored. 04:00 Reassessment: Patient laying with eyes closed in semi-benítez's, chest rising and vc falling equally, oxygen saturation 95% room air. 04:54 Reassessment: Clean brief applied to patient after using bed rush, SpO2 96% on room air, vc no complaints at this time. 06:00 Reassessment: Attempted to call [facility] to request transportation for vc patient, no answer, will try again. 06:10 Reassessment: Spoke with Mary, director retirement and [facility]. She vc states that they do not provide transportation back to the long-term when they visit the ER, it is up to the hospital to send them back. Mary informed that is we send patient back it would be by ambulance and the patient would be charged Mary responds with, "that's fine she has insurance". Charge Nurse Angeles notified. 06:36 Reassessment: Laying with eyes closed, chest rising and falling equally, non labored. vc 07:00 Reassessment: RECD REPORT FROM DEEPTI MAK. 59YO WF P/W COPD EXACERBATION, D/C SINCE bp 0200. [facility] REFUSING TO PROVIDE TRANSPORT TO RETURN TO FACILITY, CHARGE NURSE NOTIFIED. 07:57 Reassessment: Cleaned patient of urinary incontinence. Offered diet tray. Pt states, ss "I'm okay right now, no thank you.". 08:29 Reassessment: ADMIN INVOLVED IN TRANSPORTATION DISCUSSION. NO CHANGE IN PT STATUS. bp 09:31 Reassessment: EMS wheelchair van here for transportation. ss Vital Signs: 07/31 22:45 BP 115 / 62; Pulse 88; Resp 18 S; Temp 98.4(O); Pulse Ox 95% on 4 lpm NC; Weight 90.26 bb kg (R); Height 5 ft. 2 in. (157.48 cm) (R); 23:00 BP 109 / 65; Pulse 79; Resp 14; Pulse Ox 100% on 2 lpm NC; Pain 0/10; vc 08/01 00:30 BP 119 / 73; Pulse 82; Resp 13; Pulse Ox 97% on 2 lpm NC; Pain 0/10; vc 01:00 BP 117 / 79; Pulse 77; Resp 14; Pulse Ox 100% on 2 lpm NC; Pain 0/10; vc 01:59 BP 125 / 65; Pulse 81; Resp 17; Pulse Ox 96% on R/A; Pain 0/10; vc 03:00 BP 125 / 78; Pulse 78; Resp 16; Pulse Ox 98% on R/A; vc 04:00 BP 120 / 72; Pulse 81; Resp 14; Pulse Ox 93% on R/A; vc 05:00 BP 122 / 71; Pulse 79; Resp 16; Temp 97.2; Pulse Ox 93% on R/A; Pain 0/10; vc 06:00 BP 119 / 76; Pulse 90; Resp 17; Pulse Ox 94% on R/A; vc 06:35 BP 125 / 70; Pulse 89; Resp 17; Pulse Ox 93% on R/A; vc 07:00 BP 120 / 76; Pulse 93; Resp 13; Pulse Ox 96% ; bp 08:00 BP 91 / 67; Pulse 95; Resp 19; Pulse Ox 95% ; bp 07/31 22:45 Body Mass Index 36.40 (90.26 kg, 157.48 cm) bb ED Course: 07/31 22:41 Patient arrived in ED. cf2 22:45 Karsten Maharaj MD is Attending Physician. pkl 22:48 Triage completed. bb 22:49 Arm band placed on Patient placed in an exam room, on a stretcher, on oxygen, on bb library monitor, on pulse oximetry. 22:52 Deepti Davila, RN is Primary Nurse. vc 23:02 Patient has correct armband on for positive identification. Bed in low position. Side vc rails up X2. library monitor on. Pulse ox on. NIBP on. 23:26 Flu and/or RSV swab sent to lab. Strep swab sent to lab. covid. rr5 08/01 00:00 XRAY Chest (1 view) In Process Unspecified. EDMS 00:50 Radiology exam delayed due to Unable to come to CT at this time. With Respiratory. kw1 01:15 CT Chest Wo Con In Process Unspecified. EDMS 08:29 No provider procedures requiring assistance completed. IV discontinued, intact, bp bleeding controlled, No redness/swelling at site. Pressure dressing applied. Administered Medications: 07/31 23:59 Drug: NS 0.9% 1000 ml Route: IV; Rate: 100 ml/hr; Site: right antecubital; vc 08/01 01:52 Drug: Ciprofloxacin 400 mg Volume: 200 ml; Route: IVPB; Infused Over: 60 mins; Site: bb right antecubital; 03:00 Follow up: IV Status: Completed infusion; IV Intake: 200ml vc Intake: 07/31 23:00 IV: 500ml; Total: 500ml. vc 08/01 03:00 IV: 200ml; Total: 700ml. vc Outcome: 02:13 Discharge ordered by . pkl 09:31 Discharged to long-term. ss 09:31 Condition: good :31 Discharge instructions given to patient, Instructed on discharge instructions, follow up and referral plans. medication usage, Demonstrated understanding of instructions, follow-up care, Prescriptions given X 1. 09:32 Patient left the ED. ss Signatures: Dispatcher [employer] EDMS Karsten Maharaj MD MD pkl Ballard, Brenda, RN RN bb Elva Tay RN RN ss Contreras Ferreira RN RN bp Shanique Mata kw1 Humza Nascimento RN RN rr5 Andrea Flores 2 Deepti Davila RN RN vc Corrections: (The following items were deleted from the chart) 02:29 02:19 Reassessment: Notified [facility] that patient is up for discharge. vc vc
--- NOTE | 2020-08-01 09:04 | RAD REPORT ---
EXAM DESCRIPTION: RAD - Chest Single View - 07/31/2020 11:59 pm CLINICAL HISTORY: COPD;Cough;Dyspnea Chest pain. COMPARISON: Chest Single View dated 02/02/2020; Chest Single View dated 09/21/2019; Chest Single View dated 09/13/2019; Chest Single View dated 09/10/2019; Thorax Wo Con dated 08/01/2020 FINDINGS: Portable technique limits examination quality. The lungs are grossly clear. The heart is normal in size. Trace left pleural effusion.
--- NOTE | 2020-08-01 09:57 | RAD REPORT ---
EXAM DESCRIPTION: CT CHEST WITHOUT CONTRAST. CLINICAL HISTORY: Shortness of breath for one week. Angina. COMPARISON: None. TECHNIQUE: Axial CT imaging of the chest performed. Reformatted coronal and sagittal images obtained . This exam was performed according to our departmental dose-optimization program which includes automa prieto exposure control, adjustment of the mA and/or kV according to patient size and/or use of iterativ e reconstruction technique FINDINGS: HEART/VESSELS: Heart is normal in size. Normal caliber thoracic aorta with moderate ather osclerosis. Atherosclerosis within the origin of the arch vessels which are normal in configuration. Normal caliber main pulmonary artery. MEDIASTINUM AND MEGAN: Nonenlarged mediastinal lymph nodes. Normal central airways. Normal esophagus. Small hiatal hernia. LUNGS/PLEURA: Scattered atelectasis in the right middle lobe, right and left lower lobe. There is mi nimal left and trace right pleural fluid. No edema or pneumothorax. CHEST WALL/SOFT TISSUES: Sternum is intact. There is mild mid thoracic degenerative change. Unremark able thyroid. No axillary lymphadenopathy. UPPER ABDOMEN: Normal liver, spleen, pancreas, adrenal glands and included gallbladder. Small hiatal hernia. The included segments of colon appear normal. IMPRESSION: 1. Scattered atelectasis. Minimal left and trace right pleural effusion. 2. Small hiatal hernia. Electronically signed by: Claribel Ramirez DO 08/01/2020 1:36 AM CDT Due to temporary technical issues with the PACS/Fluency reporting system, reports are being signed by the in house radiologist without review as a courtesy to ensure prompt reporting. The interpreting r adiologist is fully responsible for the content of the report.
--- NOTE | 2020-08-01 11:10 | EKG ---
Test Date: 2020-08-01 Test Time: 00:26:18 [employer] Certified Network Professional: MARIZOL MEASUREMENT RESULTS: Intervals: Rate: 80 VT: 202 QRSD: 86 QT: 384 QTc: 442 [place]: P: 49 VT: 202 QRS: -32 T: 24 INTERPRETIVE STATEMENTS: Normal sinus rhythm Left axis deviation Low voltage QRS Abnormal ECG Compared to ECG 02/02/2020 19:31:55 Left-axis deviation now present Low QRS voltage now present Ventricular premature complex(es) no longer present Left anterior fascicular block no longer present Myocardial infarct finding no longer present Electronically Signed On 08-01-20 11:10:10 CDT by Garcia Knapp
[2020-08-02 17:16] VITALS: TEMP 97.2
[2020-08-02 17:22] VITALS: BP 91/67; O2SAT 95
== END 2020-08-01 09:32 | disposition home or self-care (01) ==
LOC: ER 22:40
DX: J44.1 Chronic obstructive pulmonary disease with (acute) exacerbation (principal); Z20.828 Contact with and (suspected) exposure to other viral communicable diseases; N39.0 Urinary tract infection, site not specified
CPT/HCPCS: 96365; 93005; 87040 ×2; 87070; 85025; 80048; 36415; 83735; 85610; 85379; 80076; 87081; 83605; 85730; 81003; 81015; 84484; 82728; 83690; 84145; 83880; 86140; 87804 ×2; 71250; 71045; 82805; 99285; U0002; J7030; J0744

== ENCOUNTER 2020-10-07 19:13 | Emergency (ER) | payer OTHER ==
--- OUTSIDE RECORDS SUMMARY | 2020-10-07 19:20 | XMS REPORT | Continuity of Care Document ---
:1960 Author Organization [facility] t Address [address] [place] [address] Care Team Providers Name Role Phone Desktop Attending Clinician Unavailable Elvin Attending Clinician Unavailable Jose Attending Clinician Unavailable Ritchie Moore Attending Clinician Unavailable Anders Attending Clinician Unavailable Zahraa Attending Clinician [phone] Nan Attending Clinician Unavailable Jose Attending Clinician Unavailable Nan Attending Clinician Unavailable Status Attending Clinician Unavailable Lance Attending Clinician Unavailable Portia Attending Clinician Unavailable Catie Obrien Attending Clinician Unavailable Michoacano Attending Clinician Unavailable Rosas Attending Clinician Unavailable Rosas Attending Clinician [phone] Juan A Attending Clinician [phone] Danish Attending Clinician Unavailable Ankit Cooper Attending Clinician Unavailable Bethel Attending Clinician Unavailable Tessa Attending Clinician Unavailable Hu Attending Clinician Unavailable Rakesh Attending Clinician Unavailable Bethel Attending Clinician Unavailable Raymundo Attending Clinician Unavailable Lance Attending Clinician Unavailable Ashutosh Rae Attending Clinician Unavailable Jennifer Attending Clinician [phone] Oliver Attending Clinician Unavailable Ángel Attending Clinician Unavailable Bolivar Attending Clinician Unavailable Michael Attending Clinician [phone] Kian Attending Clinician Unavailable Saman Attending Clinician Unavailable Blaine Attending Clinician Unavailable Tera Attending Clinician Unavailable Conor Attending Clinician [phone] Yoel Attending Clinician Unavailable Marilee Attending Clinician [phone] Leonard Attending Clinician [phone] Gentry Attending Clinician Unavailable Ed Attending Clinician Unavailable Bridger Attending Clinician [phone] Priscilla Attending Clinician Unavailable Rubina Attending Clinician [phone] Kimberly Attending Clinician Unavailable Nemecek Unavailable [phone] Payers Payer Name Policy Type Policy Number Effective Date Expiration Date S yovanice Sliding Fee - CI [id number] 2019 2020 [facility] - 11 [id number] 2019 2019 [facility] 00:[facility] Sliding Fee - 11 [id number] 2016 2017 [facility] 00:00:00 [facility] Sliding Fee - CI [id number] 2016 2017 [facility] 00:00:00 [facility] Sliding Fee - 11 [id number] 2015 2017 [facility] Problems Condition Condition Condition Status Onset Resolution Last Treating Co mments Source Name Details Category Date Date Treatment Clinician Date NONSPEC Condition Active 2020-02-07 Abel Vital RXN CMI 3-12 10:56:38 Husam Lassiter MSR G-IFN 00:00: ty ANTIG RSPN 00 Health NO ACT TB DIZZINESS Condition Active 2017-10-13 EstrelladavieAbel hopkins 8 09:19:20 Husam Lassiter 00:00: ty 00 Health Hyperlipid Condition Active 2020-02-07 Abel Vital emia 7- 10:44:35 Husam Lassiter 00:00: ty 00 Health Preventive Condition Active 2015-112017-10-13 Bri Vitalalison health 2-06 09:19:20 Husam Lassiter care 00:00: ty 00 Health Screening, Condition Active 2017-10-13 Abel Vital colon 8- 09:19:20 Husam Lassiter cancer 00:00: ty 00 Health Hip Condition Active 2016-07-07 Sarabjit Vital arthralgia 03-24 08:45:03 Husam dickerson 00:00: ty 00 Health COPD Condition Active 2020-02-07 Sarabjit Vital egacy 4- 10:44:35 Husam Lassiter 00:00: ty 00 Health [...] - foot, foot, [facility] Closed Closed Diagnosis Active [facility] [...] Date Clinician codeine DA Active [facility] - Clear 00:00: [place] 00 [facility] penicill DA Active [facility] in V 04-19 Clear 00:00: Choe 00 [facility] CODEINE Drug Active High [facility] allergy Criticali 03-18 Commun i (disorde ty 00:00: ty r) 00 Health PENICILL Drug Active High [facility] IN allergy Criticali 4-21 Commun i (disorde ty 00:00: ty r) 00 Health penicill Adverse Active Info Not [facility] t in Reaction Available [facility] ent Clinics codeine Adverse Active Info Not [facility] Reaction Available [facility] ent Clinics Social History Social Habit Start Date Stop Date Quantity Comments Source time of call 2020-09-24 2020-09-24 09/24/2020 2:27 PM [facility] 14:27:42 14:27:42 Health social history E&M 2020-05-28 2020-05-28 . Not [place] [facility] 09:58:55 09:58:55 homeless. Born in [facility]. City: [place]. State: [place]. Not employed. Gender of partner(s): male. Sexually [...] Comm unity health literacy 10:26:43 10:26:43 Health ([facility] 2014 Standards, 3C10) if the patient [...] What type of drug 2015-03-18 2015-03-18 cocaine [facility] was used 10:06:41 10:06:41 Health sex at 2015-03-18 2015-03-18 female [facility] 10:06:41 10:06:41 Health patient considered 2015-03-18 2015-03-18 No [facility] to be homeless 10:06:41 10:06:41 Health Smoking Status Start Date Stop Date Source Smokes tobacco daily (finding) 2020-05-28 09:58:55 [facility] Medications Ordered Filled Start Stop Current Ordering Indication Dosage Frequency Signature Comments Components Source Medication Medication Date Date Medication? Clinician (SIG) Name Name (BUPROPION Yes 1{Table 2xD 1 By Mouth [facility] HCL) 75 MG 7-11 t} Twice a Commun i TABS 00:00: Day ty 00 Health (TRAMADOL 2018- Yes 1{Table 3xD 1 Three [place] HCL) 50 MG 3-14 t} Times a Commun i TABS 00:00: Day ty 00 Health TRILEPTAL 2018- Yes 1{Table 2xD 1 Twice a [facility] (OXCARBAZEP 3-14 t} Day Communi INE) 150 MG 00:00: ty TABS 00 Health RISPERDAL 2018- Yes 1{Table 1xD 1 by mouth [facility] (RISPERIDON 3-14 t} once a day Co mmuni E) 1 MG 00:00: ty TABS 00 Health LANTUS 2018- Yes 32 [address] [facility] (INSULIN 3-14 Every pm Communi GLARGINE) 00:00: ty 100 UNIT/ML 00 Health SOLN (GABAPENTIN 2018- Yes 1{Capsu 3xD 1 by mouth [facility] ) 300 MG 3-14 le} three Communi CAPS 00:00: times a ty 00 day Health FANAPT 2018- Yes 1{Table 2xD 1 Twice a Leg acy (ILOPERIDON 3-14 t} Day Communi E) 8 MG 00:00: ty TABS 00 Health DEPAKOTE 2018- Yes 2 by mouth [facility] (DIVALPROEX 3-14 twice a Commu ni SODIUM) 250 00:00: day ty MG TBEC 00 Health BREO 2018- Yes 1 [facility] ELLIPTA 3-14 inhalation Commun [...] for Health dizziness (NICOTINE) 2019- No [facility] 14-7 1-02-08 Communi MG/24HR KIT 00:00: 00:00 ty 00 [...] Yes Husam One tablet [facility] (ABACAVIR-D 4-21 [place] daily with Communi OLUTEGRAVIR 00:00: or without ty -LAMIVUD) 00 food Health 600-50-300 MG TABS SPIRIVA Yes Husam Inhale 1 [facility] HANDIHALER 4-21 [place] cap Every C ommuni (TIOTROPIUM 00:00: Day ty BROMIDE 00 Health MONOHYDRATE ) 18 MCG CAPS PROAIR HFA Yes Husam 2 puffs [facility] (ALBUTEROL 4-21 [place] [...] Yes Terrence as [facility] Outpat[facility] Clinics Cymbalta Cymbalta Yes Terrence [address] [facility] l Outpati ent Clinics Fanapt Fanapt Yes Terrence 1 tablet [facility] Outpat[facility] ent Clinics Immunizations Ordered Immunization [...] Source oxygen saturation, 2020-05-28 09:58:55 95 % [facility] oximetry Health blood pressure, 2020-05-28 09:58:55 70 mm[Hg] [facility] diastolic Health blood pressure, 2020-05-28 09:58:55 125 mm[Hg] [facility] systolic Health pulse rate 2020-05-28 09:58:55 89 /[facility] temperature E&M 2020-05-28 09:58:55 98.2 [degF] [facility] Health height in 2020-05-28 09:58:55 157.48 [facility] centimeters E&M Health oxygen saturation, 2020-02-07 10:26:43 90 % [facility] blood pressure, 2020-02-07 10:26:43 71 mm[Hg] [facility] diastolic Health blood pressure, 2020-02-07 10:26:43 101 mm[Hg] [facility] systolic Health pulse rate 2020-02-07 10:26:43 112 /min [facility]ity Health temperature site 2020-02-07 10:26:43 oral [facility] Health temperature E&M 2020-02-07 10:26:43 98.7 [degF] [facility] weight E&M 2020-02-07 10:26:43 193 [lb_av] [facility] weight in kilograms 2020-02-07 10:26:43 87.73 kg L [facility] E& Health height in 2020-02-07 10:26:43 157.48 [facility] centimeters E&M Health oxygen saturation, 2019-10-04 07:16:02 98 % [facility] oximetry Health blood pressure, 2019-10-04 07:16:02 68 mm[Hg] [facility] diastolic Health blood pressure, 2019-10-04 07:16:02 103 mm[Hg] [facility] systolic Health pulse rate 2019-10-04 07:16:02 81 /min [facility] temperature E&M 2019-10-04 07:16:02 98.6 [degF] [facility] Health weight E&M 2019-10-04 07:16:02 169.60 [lb_av] [facility] weight in kilograms 2019-10-04 07:16:02 77.09 kg L [facility] E& Health temperature site 2019-10-04 07:16:02 oral [facility] Health height in 2019-10-04 07:16:02 157.48 cm [facility] ommunity centimeters E&M Health oxygen saturation, 2019-06-07 09:23:42 89 % [facility] pulse rate 2019-06-07 09:23:42 95 /min [facility] Health temperature site 2019-06-07 09:23:42 oral [facility] Health temperature E&M 2019-06-07 09:23:42 97.3 [degF] [facility] Health blood pressure, 2019-06-07 09:23:42 60 mm[Hg] [facility] diastolic Health blood pressure, 2019-06-07 09:23:42 92 mm[Hg] [facility] systolic Health weight E&M 2019-06-07 09:23:42 180 [lb_av] [facility] in kilograms 2019-06-07 09:23:42 81.82 kg L [facility] E& Health height in 2019-06-07 09:23:42 157.48 [facility] blood pressure, 2019-02-08 07:52:46 80 mm[Hg] [facility] diastolic Health blood pressure, 2019-02-08 07:52:46 110 mm[Hg] [facility] systolic Health oxygen saturation, 2019-02-08 07:52:46 89 % [facility] oximetry Health pulse rate 2019-02-08 07:52:46 126 /min [facility] temperature E&M 2019-02-08 07:52:46 98.6 [degF] [facility] Health weight E&M 2019-02-08 07:52:46 189.13 [lb_av] [facility] Health weight in kilograms 2019-02-08 07:52:46 85.97 kg L [facility] E& Health temperature site 2019-02-08 07:52:46 oral [facility] height in 2019-02-08 07:52:46 157.48 cm [facility] oxygen saturation, 2018-09-26 07:50:53 98 % [facility] respiratory rate E&M 2018-09-26 07:50:53 16 /min [facility] Health pulse rate 2018-09-26 07:50:53 78 /min [facility] Health temperature E&M 2018-09-26 07:50:53 98.2 [degF] [facility] Health blood pressure, 2018-09-26 07:50:53 73 mm[Hg] [facility] diastolic Health blood pressure, 2018-09-26 07:50:53 96 mm[Hg] [facility] systolic Health weight E&M 2018-09-26 07:50:53 188.25 [lb_av] [facility] Health weight in kilograms 2018-09-26 07:50:53 85.57 kg L [facility] E& Health temperature site 2018-09-26 07:50:53 oral [facility] Health height in 2018-09-26 07:50:53 157.48 [facility] centimeters E&M Health pulse rate 2018-02-21 08:03:52 120 /min [facility] blood pressure, 2018-02-21 08:03:52 79 mm[Hg] [facility] diastolic Health blood pressure, 2018-02-21 08:03:52 120 mm[Hg] [facility] systolic Health respiratory rate E&M 2018-02-21 08:03:52 20 /min [facility] Health oxygen saturation, 2018-02-21 08:03:52 99 % [facility] oximetry Health temperature site 2018-02-21 08:03:52 tympanic [facility] Health temperature E&M 2018-02-21 08:03:52 97.7 [degF] [facility] Health weight E&M 2018-02-21 08:03:52 177 [lb_av] [facility] Health weight in kilograms 2018-02-21 08:03:52 80.45 kg L [facility] E& Health height in 2018-02-21 08:03:52 157.48 [facility] centimeters E&M Health blood pressure, 2017-10-13 08:35:18 74 mm[Hg] [facility] diastolic Health blood pressure, 2017-10-13 08:35:18 105 mm[Hg] [facility] systolic Health pulse rate 2017-10-13 08:35:18 104 /min [facility] Health respiratory rate E&M 2017-10-13 08:35:18 16 /min [facility] oxygen [facility], 2017-10-13 08:35:18 96 % [facility] 2017-10-13 08:35:18 tympanic [facility] Health temperature E&M 2017-10-13 08:35:18 99 [degF] [facility] weight E&M 2017-10-13 08:35:18 175 [lb_av] [facility] Health weight in kilograms 2017-10-13 08:35:18 79.55 kg L [facility] E& Health height in 2017-10-13 08:35:18 157.48 cm [facility] ommun[facility] centimeters E&M Health blood pressure, 2017-06-29 08:33:26 50 mm[Hg] [facility] diastolic Health blood pressure, 2017-06-29 08:33:26 86 mm[Hg] [facility] systolic Health pulse rate 2017-06-29 08:33:26 100 /[facility] respiratory rate E&M 2017-06-29 08:33:26 24 /min [facility] Health oxygen saturation, 2017-06-29 08:33:26 97 % [facility] temperature site 2017-06-29 08:33:26 tympanic [facility] Health temperature E&M 2017-06-29 08:33:26 98.2 [degF] [facility] Health weight E&M 2017-06-29 08:33:26 169 [lb_av] [facility] weight in kilograms 2017-06-29 08:33:26 76.82 kg L [facility] E& Health height in 2017-06-29 08:33:26 157.48 [facility] centimeters E&M Health blood pressure, 2017-06-17 07:40:48 68 mm[Hg] [facility] diastolic Health blood pressure, 2017-06-17 07:40:48 97 mm[Hg] [facility] systolic Health pulse rate 2017-06-17 07:40:48 106 /min [facility] oxygen saturation, 2017-06-17 07:40:48 98 % [facility] Health temperature E&M 2017-06-17 07:40:48 97.5 [degF] [facility] weight E&M 2017-06-17 07:40:48 170.13 [lb_av] [facility] weight in kilograms 2017-06-17 07:40:48 77.33 kg L [facility] E&M Health temperature site 2017-06-17 07:40:48 tympanic [facility] Health height in 2017-06-17 07:40:48 157.48 [facility] centimeters E&M Health blood pressure, 2017-04-19 10:19:07 60 mm[Hg] [facility] diastolic Health blood pressure, 2017-04-19 10:19:07 108 mm[Hg] [facility] systolic Health pulse rate 2017-04-19 10:19:07 75 /min [facility] respiratory rate E&M 2017-04-19 10:19:07 24 /[facility] 2017-04-19 10:19:07 tympanic [facility] Health oxygen saturation, 2017-04-19 10:19:07 96 % [facility] oximetry Health temperature E&M 2017-04-19 10:19:07 99.1 [degF] [facility] Health weight E&M 2017-04-19 10:19:07 172 [lb_av] [facility] weight in kilograms 2017-04-19 10:19:07 78.18 kg L [facility] E& Health height in 2017-04-19 10:19:07 [facility] blood pressure, 2016-11-02 08:40:55 79 mm[Hg] [facility] diastolic Health blood pressure, 2016-11-02 08:40:55 113 mm[Hg] [facility] systolic Health pulse rate 2016-11-02 08:40:55 101 /[facility] 2016-11-02 08:40:55 tympanic [facility] oxygen saturation, 2016-11-02 08:40:55 97 % [facility] temperature E&M 2016-11-02 08:40:55 97.6 [degF] [facility] Health weight E&M 2016-11-02 08:40:55 180.60 [lb_av] [facility] Health weight in kilograms 2016-11-02 08:40:55 82.09 kg L [facility] E& Health height in 2016-11-02 08:40:55 157.48 cm [facility] oxygen saturation, 2016-07-07 08:32:30 82 % [facility] Health blood pressure, 2016-07-07 08:32:30 83 mm[Hg] [facility] diastolic Health blood pressure, 2016-07-07 08:32:30 119 mm[Hg] [facility] systolic Health pulse rate 2016-07-07 08:32:30 82 /min [facility] temperature site 2016-07-07 08:32:30 tympanic [facility] Health temperature E&M 2016-07-07 08:32:30 96.4 [degF] [facility] weight E&M 2016-07-07 08:32:30 170.40 [lb_av] [facility] Health weight in kilograms 2016-07-07 08:32:30 77.45 kg L [facility] E& Health height in 2016-07-07 08:32:30 157.48 [facility] E[facility]M Health blood pressure, 2016-03-24 15:04:18 74 mm[Hg] [facility] diastolic Health blood pressure, 2016-03-24 15:04:18 107 mm[Hg] [facility] systolic Health pulse rate 2016-03-24 15:04:18 92 /min [facility] temperature site 2016-03-24 15:04:18 tympanic [facility] Health oxygen saturation, 2016-03-24 15:04:18 94 % [facility] temperature E&M 2016-03-24 15:04:18 97.2 [degF] [facility] weight E&M 2016-03-24 15:04:18 147.70 [lb_av] [facility] weight in kilograms 2016-03-24 15:04:18 67.14 kg L [facility] E& Health height in 2016-03-24 15:04:18 157.48 [facility]M Health pulse rate 2016-03-08 09:29:07 91 /min [facility] blood pressure, 2016-03-08 09:29:07 76 mm[Hg] [facility] diastolic Health blood pressure, 2016-03-08 09:29:07 112 mm[Hg] [facility] systolic Health oxygen saturation, 2016-03-08 09:29:07 94 % [facility] temperature site 2016-03-08 09:29:07 tympanic [facility] temperature E&M 2016-03-08 09:29:07 96.9 [degF] [facility] weight E&M 2016-03-08 09:29:07 137 [lb_av] [facility] Health weight in kilograms 2016-03-08 09:29:07 62.27 kg L [facility] E& Health height in 2016-03-08 09:29:07 157.48 [facility] centimeters E&M Health oxygen saturation, 2015-07-01 10:02:02 94 % [facility] oximetry Health blood pressure, 2015-07-01 10:02:02 64 mm[Hg] [facility] diastolic Health blood pressure, 2015-07-01 10:02:02 89 mm[Hg] [facility] systolic Health pulse rate 2015-07-01 10:02:02 103 /min [facility] Health temperature site 2015-07-01 10:02:02 oral [facility] temperature E&M 2015-07-01 10:02:02 98.5 [degF] [facility] Health weight E&M 2015-07-01 10:02:02 127.40 [lb_av] [facility] Health weight in kilograms 2015-07-01 10:02:02 57.91 kg L [facility] E& Health height in 2015-07-01 10:02:02 157.48 cm [facility] centimeters E&M Health blood pressure, 2015-03-18 10:06:41 62 mm[Hg] [facility] diastolic Health blood pressure, 2015-03-18 10:06:41 86 mm[Hg] [facility] systolic Health temperature E&M 2015-03-18 10:06:41 98.8 [degF] [facility] Health height in 2015-03-18 10:06:41 157.48 [facility] centimeters E&M Health oxygen saturation, 2015-03-18 10:06:41 93 % [facility] oximetry Health pulse rate 2015-03-18 10:06:41 111 /min [facility] weight E&M 2015-03-18 10:06:41 137 [lb_av] [facility] weight in kilograms 2015-03-18 10:06:41 62.27 kg L [facility] E& Health temperature site 2015-03-18 10:06:41 temporal Gold bermeo [facility] Procedures Procedure Date / Time Performing Clinician Source Performed Primary Care Medical 2016-03-08 10:18:09 [facility] Case Management [facility] Primary Care Service 2015-07-02 08:59:43 Zee Rodriguez [facility] Primary Care - 2015-03-21 13:05:22 Zee Rodriguez Co mmunity Assesment-Brief - SLW [facility] Primary Care Service 2015-03-21 13:05:22 Zee Rodriguez [facility] Venipuncture 2015-03-03 09:52:50 Elodia Cespedes [facility] Encounters Start End Encounter Admission Attending Care Care Encounter Source Date/Time Date/Time Type Type Clinicians Facility Department ID 2020-09-24 2020-09-24 Office Desktop, [facility] Care Coordination [facility] Encounter/ [facility] 00:00:00 00:00:00 Visit Marlee Oconnor [id number] Nadeen Lowry [id number] Health 2020-07-01 2020-07-01 Office Dugan [facility] Encounte r/ [facility] 00:00:00 00:00:00 Visit Teresa [id number] Com mychal Lujan [id number] Health 2020-06-16 2020-06-16 Office OPHELIA Mcnamara OPHELIA Encounter/ [facility] 00:00:00 00:00:00 Visit Clarence [id number] Com mychal [id number] Health 2020-05-28 2020-05-28 [facility] 00[facility]00:00 Visit Husam [id number] Com mychal [id number] [facility] 2020-05-28 2020-05-28 Office Husam Vital [facility] Enco unter/ [facility] 00:00:00 00:00:00 Visit Nkechi [place] [id number] Communluci [id number] [facility] 2020-05-28 2020-05-28 Office OPHELIA Vital OPHELIA Encounter / [facility] 00:00:00 00:00:00 Visit Husam [id number] Com mychal [id number] Health 2020-02-07 2020-02-07 Office OPHELIA [facility] Encounter / [facility] 00:00:00 00:00:00 Visit Husam [id number] Com mychal [id number] ty Health 2020-02-07 2020-02-07 Office Zahraa Husam JACINTO Enco unter/ [facility] 00:00:00 00:00:00 Visit Tai Brtit [id number] Communi [id number] ty Health 2020-02-07 2020-02-07 Office Zahraa VERO JACINTOH Encounter / [facility] 00:00:00 00:00:00 Visit Husam [id number] Com mychal [id number] ty Health 2020-02-07 2020-02-07 Office Zahraa VERO JACINTO Encounter / [facility] 00:00:00 00:00:00 Visit Husam [id number] Com mychal 247207 ty Health 2019-10-10 2019-10-10 Office NanVERO Encounter/ [facility] 00:00:00 00:00:00 Visit Nkechi [id number] Com mychal [id number] ty Health 2019-10-04 2019-10-04 Office Zahraa OPHELIAFransisca OPHELIA Encounter / [facility] 00:00:00 00:00:00 Visit Husam [id number] Com mychal [id number] ty Health 2019-10-04 2019-10-04 Office ZahraaHusamFransisca OPHELIA Enco unter/ [facility] 00:00:00 00:00:00 Visit Nkechi [place] [id number] Communi [id number] ty Health 2019-10-04 2019-10-04 Office Zahraa OPHELIAFransisca LC Encounter / [facility] 00:00:00 00:00:00 Visit Husam [id number] Com mychal 954960 ty Health 2019-10-04 2019-10-04 Office Zahraa OPHELIAFransisca LC Encounter / [facility] 00:00:00 00:00:00 Visit Husam [id number] Com mychal [id number] ty Health 2019-10-04 2019-10-04 Office Husam Vital VERO JACINTO Enco unter/ [facility] 00:00:00 00:00:00 Visit Nkechi [place] [id number] Communi Tai Britt 909930 ty Health 2019-10-02 2019-10-02 Office Elvin [facility] Encount er/ Legacy 00:00:00 00:00:00 Visit Marlee [id number] Com mychal 059984 ty Health 2019-06-07 2019-06-07 [facility] Legacy 00:00:00 00:00:00 Visit Husam [id number] Com mychal 193702 ty Health 2019-06-07 2019-06-07 Office Zahraa [facility] Encounter / Legacy 00:00:00 00:00:00 Visit Husam [id number] Com mychal 955989 ty Health 2019-06-07 2019-06-07 Office Zahraa [facility] Encounter / Legacy 00:00:00 00:00:00 Visit Husam [id number] Com mychal 925321 ty Health 2019-06-07 2019-06-07 Office Jose [facility] Encounte r/ Legacy 00:00:00 00:00:00 Visit Palmer [id number] Com mychal 234656 ty Health 2019-06-07 2019-06-07 Office Nemandrew [facility] Encounter / Legacy 00:00:00 00:00:00 Visit Husam [id number] Com mychal 129326 ty Health 2019-06-07 2019-06-07 Office Husam Vital [facility] Enco unter/ Legacy 00:00:00 00:00:00 Visit Nkechi [place] [id number] 1027 Communi 212782 ty Health 2019-06-06 2019-06-06 Office Nan [facility] Encounter/ Legacy 00:00:00 00:00:00 Visit Meka [id number] Com mychal 215829 ty Health 2019-04-19 2019-04-19 Office Status, Fax [facility] Encoun ter/ Legacy 00:00:00 00:00:00 Visit [id number] Com mychal 121332 Health 2019-02-22 2019-02-22 [facility] [id number] 14:00:00 14:00:00 [facility] ent Clinics 2019-02-08 2019-02-08 Office Nemdaviek, VERO JACINTO Encounter / Legacy 00:00:00 00:00:00 Visit Husam [id number] Com mychal 851377 ty Health 2019-02-08 2019-02-08 Office Nemandrew, VERO JACINTO Encounter / Legacy 00:00:00 00:00:00 Visit Husam [id number] Com mychal 358438 ty Health 2019-02-08 2019-02-08 Office NemandrewVERO Encounter / Legacy 00:00:00 00:00:00 Visit Husam [id number] Com mychal 666466 ty Health 2019-02-08 2019-02-08 Office Nemandrew, OPHELIA OPHELIA Encounter / Legacy 00:00:00 00:00:00 Visit Husam [id number] Com mychal 274222 ty Health 2019-02-08 2019-02-08 Office Zahraa, VREO JACINTO Encounter / Legacy 00:00:00 00:00:00 Visit Husam [id number] Com mychal 566738 ty Health 2019-02-08 2019-02-08 Office Nemandrew, Husam JACINTO OPHELIA Enco unter/ Legacy 00:00:00 00:00:00 Visit Valentine Lucas [id number] Communi 631815 ty Health 2019-02-05 2019-02-05 Office VERO Oconnor Encount er/ Legacy 00:00:00 00:00:00 Visit Marlee [id number] Com mychal 375382 ty Health 2019-02-02 2019-02-02 Office VERO Oconnor Encount er/ Legacy 00:00:00 00:00:00 Visit Marlee [id number] Com mychal 063714 ty Health 2018-12-29 2018-12-29 Office VERO Oconnor Encount er/ Legacy 00:00:00 00:00:00 Visit Marlee [id number] Com mychal 277313 ty Health 2018-12-25 2018-12-25 Office Marlee Oconnor Encounter/ Legacy 00:00:00 00:00:00 Visit Phi Pearce [id number] Communi 963918 ty Health 2018-12-25 2018-12-25 Office Nemdaviek, VERO [facility] Encounter / Legacy 00:00:00 00:00:00 Visit Husam [id number] Com mychal 884951 ty Health 2018-12-22 2018-12-22 Office Elvin, OPHELIAFransisca [facility] Encount er/ Legacy 00:00:00 00:00:00 Visit Marlee [id number] Com mychal 543837 ty Health 2018-09-28 2018-09-28 Office Nemandrew, OPHELIAFransisca [facility] Encounter / Legacy 00:00:00 00:00:00 Visit Husam [id number] Com mychal 608761 ty Health 2018-09-28 2018-09-28 Office Status, Fax [facility]IAFransisca [facility] Encoun ter/ Legacy 00:00:00 00:00:00 Visit [id number] Com mychal 877189 ty Health 2018-09-26 2018-09-26 Office Zahraa, VERO [facility] Encounter / Legacy 00:00:00 00:00:00 Visit Husam [id number] Com mychal 379679 ty Health 2018-09-26 2018-09-26 Office Nemdaviek, VERO [facility] Encounter / Legacy 00:00:00 00:00:00 Visit Husam [id number] Com mychal 710574 ty Health 2018-09-26 2018-09-26 Office Nemdaviek, VERO [facility] Encounter / Legacy 00:00:00 00:00:00 Visit Husam [id number] Com mychal 416637 ty Health 2018-09-26 2018-09-26 Office Nemdaviek, VERO [facility] Encounter / Legacy 00:00:00 00:00:00 Visit Husam [id number] Com mychal 924903 ty Health 2018-09-26 2018-09-26 Office Nemdaviek, Husam OPHELIA [facility] Enco unter/ Legacy 00:00:00 00:00:00 Visit Sisi Obrien [id number] 7949 Communi 005807 ty Health 2018-09-25 2018-09-25 Office Nemdaviek, VERO [facility] Encounter / Legacy 00:00:00 00:00:00 Visit Husam [id number] Com mychal 555103 ty Health 2018-09-23 2018-09-23 Office VERO Oconnor Encount er/ Legacy 00:00:00 00:00:00 Visit Marlee [id number] Com mychal 465154 ty Health 2018-09-07 2018-09-07 Office Marlee Oconnor Encounter/ Legacy 00:00:00 00:00:00 Visit Luci Ríos [id number] 0585 Communi 078312 ty Health 2018-05-05 2018-05-05 Office VERO Rosas Encoun ter/ Legacy 00:00:00 00:00:00 Visit Marcelle [id number] Com mychal 487729 ty Health 2018-02-21 2018-02-21 Office Status, Fax [facility] Encoun ter/ Legacy 00:00:00 00:00:00 Visit [id number] Com mychal 371789 ty Health 2018-02-21 2018-02-21 Office Status, Fax [facility] Encoun ter/ Legacy 00:00:00 00:00:00 Visit [id number] Com mychal 979081 ty Health 2018-02-21 2018-02-21 Office Status, Fax [facility] Encoun ter/ Legacy 00:00:00 00:00:00 Visit [id number] Com mychal 800473 ty Health 2018-02-21 2018-02-21 Office VERO Vital Encounter / Legacy 00:00:00 00:00:00 Visit Husam [id number] Com mychal 448192 ty Health 2018-02-21 2018-02-21 Office VERO Vital Encounter / Legacy 00:00:00 00:00:00 Visit Huasm [id number] Com mychal 714757 ty Health 2018-02-21 2018-02-21 Office Husam Vital [facility] Enco unter/ Legacy 00:00:00 00:00:00 Visit Nkechi [place] [id number] Ema Gupta 80294 0 ty Juan A [facility] 2018-02-14 2018-02-14 Office Kai-Ronda [facility] LC Encoun ter/ Legacy 00:00:00 00:00:00 Visit jaron [id number] Com mychal Choice 390022 ty Health 2018-02-08 2018-02-08 Office VERO Rosas Encoun ter/ Legacy 00:00:00 00:00:00 Visit Marcelle [id number] Com mychal 345566 ty Health 2018-02-07 2018-02-07 Office VERO Vital Encounter / Legacy 00:00:00 00:00:00 Visit Husam [id number] Com mychal 189720 ty Health 2018-02-07 2018-02-07 Office Husam Vital Enco unter/ Legacy 00:00:00 00:00:00 Visit Leigha Dumont [id number] Communi 617056 ty Health 2018-01-25 2018-01-25 Office VERO Hugo Encounter/ Legacy 00:00:00 00:00:00 Visit Verito [id number] C ommuni 394641 ty Health 2018-01-25 2018-01-25 Office VERO Zarate [facility] Encounte r/ Legacy 00:00:00 00:00:00 Visit Vanessa [id number] Com mychal 002356 ty Health 2018-01-17 2018-01-17 Office VERO Vital Encounter / Legacy 00:00:00 00:00:00 Visit Husam [id number] Com mychal 144847 ty Health 2018-01-17 2018-01-17 Office Jose Lui OPHELIA En counter/ Legacy 00:00:00 00:00:00 Visit Marcelle Rosas [id number] Communi 179035 ty Health 2017-10-26 2017-10-26 Office VERO Rosas Encoun ter/ Legacy 00:00:00 00:00:00 Visit Marcelle [id number] Com mychal 029192 ty Health 2017-10-25 2017-10-25 Office VERO Rosas Encoun ter/ Legacy 00:00:00 00:00:00 Visit Marcelle [id number] Com mychal 777990 ty Health 2017-10-24 2017-10-24 Office VERO Cameron Encounter / Legacy 00:00:00 00:00:00 Visit Angeles [id number] Com mychal 046338 ty Health 2017-10-13 2017-10-13 Office VERO Vital LCFransisca Encounter / Legacy 00:00:00 00:00:00 Visit Husam [id number] Com mychal 576191 ty Health 2017-10-13 2017-10-13 Office VERO Hugo [facility] Encounter/ Legacy 00:00:00 00:00:00 Visit Luann [id number] Co mmuni 763379 ty Health 2017-10-13 2017-10-13 Office VERO Vital [facility] Encounter / Legacy 00:00:00 00:00:00 Visit Husam [id number] Com mychal 323497 ty Health 2017-10-13 2017-10-13 Office VERO Vital LCFransisca Encounter / Legacy 00:00:00 00:00:00 Visit Husam [id number] Com mychal 036566 ty Health 2017-10-13 2017-10-13 Office Husam Vital OPHELIAFransisca Enco unter/ Legacy 00:00:00 00:00:00 Visit Nkechi [place] [id number] [place] Griffith [id number] [facility] 2017-10-12 2017-10-12 Office [facility] Encoun ter/ Legacy 00:00:00 00:00:00 Visit jaron [id number] Com mychal Choice 039926 Health 2017-07-05 2017-07-05 Office Husam Vital OPHELIAFransisca Enco unter/ Legacy 00:00:00 00:00:00 Visit Ema Pillai [id number] [place] Griffith [id number] Juan A [facility] FonsecaAmanda 2017-06-29 2017-06-29 Office Husam Vital OPHELIAFransisca LC Enco unter/ Legacy 00:00:00 00:00:00 Visit Molly Velazco [id number] 06890 Communi 573638 Health 2017-06-29 2017-06-29 Office VERO Vital [facility] Encounter / Legacy 00:00:00 00:00:00 Visit Husam [id number] Com mychal 191202 Health 2017-06-29 2017-06-29 Office VERO Vital [facility] Encounter / Legacy 00:00:00 00:00:00 Visit Husam [id number] Com mychal 401934 ty Health 2017-06-29 2017-06-29 Office Husam Vital Enco unter/ Legacy 00:00:00 00:00:00 Visit Nkechi [place] [id number] 3839 Communi 267661 ty Health 2017-06-28 2017-06-28 Office Kori JACINTO Encoun ter/ Legacy 00:00:00 00:00:00 Visit jaron [id number] Com mychal Choice 126457 ty Health 2017-06-20 2017-06-20 Office VERO Vital Encounter / Legacy 00:00:00 00:00:00 Visit Husam [id number] Com mychal 040941 ty Health 2017-06-17 2017-06-17 Office VERO Vital Encounter / Legacy 00:00:00 00:00:00 Visit Husam [id number] Com mychal 777526 ty Health 2017-06-17 2017-06-17 Office VERO Vital Encounter / Legacy 00:00:00 00:00:00 Visit Husam [id number] Com mychal 225746 ty Health 2017-06-17 2017-06-17 Office Husam Vital Enco unter/ Legacy 00:00:00 00:00:00 Visit Iesha Lucas [id number] 0775 Communi 389008 ty Health 2017-06-14 2017-06-14 Office Kori JACINTO Encoun ter/ Legacy 00:00:00 00:00:00 Visit jaron [id number] Com mychal Choice 457082 ty Health 2017-06-09 2017-06-09 Office VERO Rosas Encoun ter/ Legacy 00:00:00 00:00:00 Visit Marcelle [id number] Com mychal 406970 ty Health 2017-06-08 2017-06-08 Office VERO Rosas Encoun ter/ Legacy 00:00:00 00:00:00 Visit Marcelle [id number] Com mychal 714245 ty Health 2017-05-30 2017-05-30 Office Ashutosh JACINTOH Encounter/ Legacy 00:00:00 00:00:00 Visit Kyra [id number] Co obed Morocho [id number] Health 2017-05-30 2017-05-30 Office Ashutosh PHAM [facility] Encounter/ Legacy 00:00:00 00:00:00 Visit Kyra [id number] Co obed [place] 948545 Health 2017-05-27 2017-05-27 Office VERO Vital Encounter / Legacy 00:00:00 00:00:00 Visit Husam [id number] Com mychal 539078 Health 2017-05-26 2017-05-26 Office Marcelle Rosas [facility] Encounter/ Legacy 00:00:00 00:00:00 Visit Beau Rodriguez [id number] Communi 025589 Health 2017-05-25 2017-05-25 Office VERO Vital Encounter / Legacy 00:00:00 00:00:00 Visit Husam [id number] Com mychal 221063 ty Health 2017-05-25 2017-05-25 Office VERO VitalH Encounter / Legacy 00:00:00 00:00:00 Visit Husam [id number] Com mychal 453783 Health 2017-05-25 2017-05-25 Office VERO Rosas Encoun ter/ Legacy 00:00:00 00:00:00 Visit Marcelle [id number] Com mychal 382235 Health 2017-05-24 2017-05-24 Office Shaye Boyd [facility] Enco unter/ Legacy 00:00:00 00:00:00 Visit Polina Neal [id number] 64 Charisma Lugo 667691 ty Beau Rodriguez [facility] 2017-05-18 2017-05-18 Office Ashutosh JACINTOH Encounter/ Legacy 00:00:00 00:00:00 Visit Kyra [id number] Co obed Morocho [id number] Health 2017-05-13 2017-05-13 Office Husam Vital [facility] Enco unter/ Legacy 00:00:00 00:00:00 Visit Zee Rodriguez [id number] Cara Ray [id number] [facility] 2017-04-22 2017-04-22 Office Ashutosh Kyra Bailee [facility] Encounter/ Legacy 00:00:00 00:00:00 Visit Baltazar Davison [id number] 8178 Communi 281065 ty Health 2017-04-22 2017-04-22 Office SamanVEROH Encounter / Legacy 00:00:00 00:00:00 Visit Baltazar [id number] Com mychal 985672 ty Health 2017-04-19 2017-04-19 Office ZahraaVERO [facility] Encounter / Legacy 00:00:00 00:00:00 Visit Husam [id number] Com mychal 331915 ty Health 2017-04-19 2017-04-19 Office ZahraaVEROH Encounter / Legacy 00:00:00 00:00:00 Visit Husam [id number] Com mychal 582539 ty Health 2017-04-19 2017-04-19 Office EstrelladavieHusam hopkins Enco unter/ Legacy 00:00:00 00:00:00 Visit Nkechi [place] [id number] 8328 Communi 589094 ty Health 2017-04-18 2017-04-18 Office [facility] POHELIA [facility] Encoun ter/ Legacy 00:00:00 00:00:00 Visit jaron [id number] Com mychal Choice 151750 ty Health 2017-03-11 2017-03-11 Office Zahraa Husam VERO JACINTOH Enco unter/ Legacy 00:00:00 00:00:00 Visit Polina Neal [id number] Communi 033623 ty Health 2017-03-01 2017-03-01 Office ZahraaVERO [facility] Encounter / Legacy 00:00:00 00:00:00 Visit Husam [id number] Com mychal 334716 ty Health 2017-02-17 2017-02-17 Office BlaineVERO [facility] Encounter/ Legacy 00:00:00 00:00:00 Visit Malu [id number] C ommuni 122586 ty Health 2016-12-09 2016-12-09 Office BlaineVEROH Encounter/ Legacy 00:00:00 00:00:00 Visit Malu [id number] C ommuni 164197 ty Health 2016-11-02 2016-11-02 Office VERO Vital [facility] Encounter / Legacy 00:00:00 00:00:00 Visit Husam [id number] Com mychal 304461 ty Health 2016-11-02 2016-11-02 Office VERO Vital Encounter / Legacy 00:00:00 00:00:00 Visit Husam [id number] Com mychal 405631 ty Health 2016-11-02 2016-11-02 Office Husam Vital [facility] Enco unter/ Legacy 00:00:00 00:00:00 Visit Nkechi [place] [id number] 3537 Communi 950090 ty Health 2016-10-19 2016-10-19 Office VERO Vital [facility] Encounter / Legacy 00:00:00 00:00:00 Visit Husam [id number] Com mychal 266528 ty Health 2016-10-19 2016-10-19 Office VERO Vital [facility] Encounter / Legacy 00:00:00 00:00:00 Visit Husam [id number] Com mychal 589750 ty Health 2016-09-21 2016-09-21 Office VERO Haley [facility] Encount er/ Legacy 00:00:00 00:00:00 Visit Tara [id number] Com mychal 471358 ty Health 2016-08-31 2016-08-31 Office VERO Valladares Encounter/ Legacy 00:00:00 00:00:00 Visit Malu [id number] C ommuni 067638 ty Health 2016-07-09 2016-07-09 Office Status, Fax [facility] Encoun ter/ Legacy 00:00:00 00:00:00 Visit [id number] Com mychal 984306 ty Health 2016-07-09 2016-07-09 Office Status, Fax [facility] Encoun ter/ Legacy 00:00:00 00:00:00 Visit [id number] Com mychal 545814 ty Health 2016-07-07 2016-07-07 Office VERO Vital OPHELIA Encounter / Legacy 00:00:00 00:00:00 Visit Husam [id number] Com mychal 409488 ty Health 2016-07-07 2016-07-07 Office Zahraa OPHELIAFransisca [facility] Encounter / Legacy 00:00:00 00:00:00 Visit Husam [id number] Com mychal 927903 ty Health 2016-07-07 2016-07-07 Office Zahraa VERO [facility] Encounter / Legacy 00:00:00 00:00:00 Visit Husam [id number] Com mychal 709875 ty Health 2016-07-07 2016-07-07 Office Husam Vital VERO JACINTO Enco unter/ Legacy 00:00:00 00:00:00 Visit Nkechi [place] [id number] 8442 [facility] 186245 ty Health 2016-07-01 2016-07-01 Office PerdomoVERO ashbyH Encounter/ Legacy 00:00:00 00:00:00 Visit Remy [id number] Com mychal 812830 ty Health 2016-06-28 2016-06-28 Office YoelVERO Encounter / Legacy 00:00:00 00:00:00 Visit Chiara [id number] Com mychal 618469 ty Health 2016-03-24 2016-03-24 Office Zahraa VERO JACINTOH Encounter / Legacy 00:00:00 00:00:00 Visit Husam [id number] Com mychal 188440 ty Health 2016-03-24 2016-03-24 Office Zahraa VERO JACINTOH Encounter / Legacy 00:00:00 00:00:00 Visit Husam [id number] Com mychal 501185 ty Health 2016-03-24 2016-03-24 Office ZahraaHusam Enco unter/ Legacy 00:00:00 00:00:00 Visit Nkechi [place] [id number] 3297 Communi 431962 ty Health 2016-03-24 2016-03-24 Office ZahraaVREO Encounter / Legacy 00:00:00 00:00:00 Visit Husam [id number] Com mychal 697660 ty Health 2016-03-08 2016-03-08 Office MarileeVERO [facility] Encounter / Legacy 00:00:00 00:00:00 Visit Dilma [id number] Com mychal 407401 ty Health 2016-03-08 2016-03-08 Office Conor OPHELIAFransisca [facility] Encounter/ Legacy 00:00:00 00:00:00 Visit Remy [id number] Com mychal 549194 ty Health 2016-03-08 2016-03-08 Office Remy Perdomo OPHELIAFransisca [facility] Encou nter/ Legacy 00:00:00 00:00:00 Visit Jo Valle 04112 07715 Communi 395089 ty Health 2016-02-26 2016-02-26 Office Conor OPHELIAFransisca [facility] Encounter/ Legacy 00:00:00 00:00:00 Visit Remy [id number] Com mychal 478040 ty Health 2016-01-27 2016-01-27 Office Zahraa VERO [facility] Encounter / Legacy 00:00:00 00:00:00 Visit Husam [id number] Com mychal 442376 ty Health 2016-01-22 2016-01-22 Office Yoel V[facility] Encounter / Legacy 00:00:00 00:00:00 Visit Chiara [id number] Com mychal 710274 ty Health 2015-12-02 2015-12-02 Office Nan OPHELIA [facility] Encounter/ Legacy 00:00:00 00:00:00 Visit Nkechi [id number] Com mychal 258232 ty Health 2015-10-27 2015-10-27 Office Yoel VERO LC Encounter / Legacy 00:00:00 00:00:00 Visit Chiara [id number] Com mychal 128354 ty Health 2015-09-05 2015-09-05 Office VERO Vital [facility] Encounter / Legacy 00:00:00 00:00:00 Visit Husam [id number] Com mychal 208043 ty Health 2015-09-05 2015-09-05 Office Zahraa OPHELIA [facility] Encounter / Legacy 00:00:00 00:00:00 Visit Husam [id number] Com mychal 229374 ty Health 2015-09-03 2015-09-03 Office Zahraa, OPHELIA LC Encounter / Legacy 00:00:00 00:00:00 Visit Husam [id number] Com mychal 046377 ty Health 2015-07-14 2015-07-14 Office ZahraaOPHELIA [facility] Encounter / Legacy 00:00:00 00:00:00 Visit Husam [id number] Com mychal 206499 ty Health 2015-07-02 2015-07-02 Office RinaldiVERO Encounter/ Legacy 00:00:00 00:00:00 Visit Odin [id number] Com mychal 480381 ty Health 2015-07-02 2015-07-02 Office MichaelVERO Encounter / Legacy 00:00:00 00:00:00 Visit Zee [id number] C ommuni 069649 ty Health 2015-07-01 2015-07-01 Office MichaelVERO Encounter / Legacy 00:00:00 00:00:00 Visit Zee [id number] C ommuni 645472 ty Health 2015-07-01 2015-07-01 Office VERO Vital Encounter / Legacy 00:00:00 00:00:00 Visit Husam [id number] Com mychal 884783 ty Health 2015-07-01 2015-07-01 Office Husam Vital Enco unter/ Legacy 00:00:00 00:00:00 Visit Nkechi [place] 945314 7623 Communi 945010 ty Health 2015-06-17 2015-06-17 Office VERO Vital Encounter / Legacy 00:00:00 00:00:00 Visit Husam [id number] Com mychal 130093 ty Health 2015-06-17 2015-06-17 Office VERO Vital Encounter / Legacy 00:00:00 00:00:00 Visit Husam [id number] Com mychal 687538 ty Health 2015-06-17 2015-06-17 Office VERO Vital Encounter / Legacy 00:00:00 00:00:00 Visit Husam [id number] Com mychal 818280 ty Health 2015-06-17 2015-06-17 Office VERO Vital Encounter / Legacy 00:00:00 00:00:00 Visit Husam [id number] Com mychal 854477 ty Health 2015-03-18 2015-03-18 Office VERO Vital Encounter / Legacy 00:00:00 00:00:00 Visit Husam [id number] Com mychal 444314 ty Health 2015-03-18 2015-03-18 Office MichaelVERO Encounter / Legacy 00:00:00 00:00:00 Visit Zee [id number] C ommuni 296234 ty Health 2015-03-18 2015-03-18 Office MichaelVERO Encounter / Legacy 00:00:00 00:00:00 Visit Zee [id number] C ommuni 780439 ty Health 2015-03-18 2015-03-18 Office AntonioVERO hopkins Encounter / Legacy 00:00:00 00:00:00 Visit Husam [id number] Com mychal 954213 ty Health 2015-03-18 2015-03-18 Office Husam Vital Enco unter/ Legacy 00:00:00 00:00:00 Visit Lexy Ward [id number] 3501 Valentine Diamond 550095 ty Health 2015-03-17 2015-03-17 Office VERO Vital Encounter / Legacy 00:00:00 00:00:00 Visit Husam [id number] Com mychal 468385 ty Health 2015-03-17 2015-03-17 Office BridgerVERO LC Encounter/ Legacy 00:00:00 00:00:00 Visit Sammie [id number] Co mmuni 013333 ty Health 2015-03-15 2015-03-15 Office VERO Sparks Encounter/ Legacy 00:00:00 00:00:00 Visit Sammie [id number] Co mmuni 787005 ty Health 2015-03-13 2015-03-13 Office Lisa JACINTO OPHELIA Encoun ter/ Legacy 00:00:00 00:00:00 Visit Deidra ramon [id number] Co mmuni 197242 ty Health 2015-03-03 2015-03-03 Office VERO Cespedes Encounter/ Legacy 00:00:00 00:00:00 Visit Elodia [id number] Com mychal 116309 ty Health 2015-03-03 2015-03-03 Office VERO Cespedes Encounter/ Legacy 00:00:00 00:00:00 Visit Elodia [id number] Com mychal 390949 ty Health 2015-03-03 2015-03-03 Office Rubina, [facility] Encounter/ Legacy 00:00:00 00:00:00 Visit Elodia [id number] [facility] mychal 577466 [facility] 2015-03-03 2015-03-03 Office Rubina, Elodia [facility] Enc ounter/ Legacy 00:00:00 00:00:00 Visit Atif Harris [id number] [id number] [facility] [id number] [facility] 2015-03-03 2015-03-03 Office Zahraa [facility] Encounter / Legacy 00:00:00 00:00:00 Visit Husam [id number] [facility] mychal 989621 [facility] Results Test Description Test Time Test Comments Results Result Comments Source rapid plasma reagin antibody, serum 2020-05-28 10:39:00 Test Item Value Reference Range Interpretation Comme nts rapid plasma reagin antibody, serum (test code = Non Reactive Non R eactive 5291-0) [facility] blood, as % of total [id number] 10:39:00 Test Item Value Reference Range Interpretation Comments hemoglobin A1C, blood, as % of total 6.3 % 4.8-5.6 H hemoglobin (test code = 4548-4) [facility], serum, by PCR, [id number] 10:39:00 Test Item Value Reference Range Interpretation Comments HIV-1RNA, serum, by PCR, quantitative 30 /mL (test code = 52748) [facility]LDL cholesterol, [id number] 10:39:00 Test Item Value Reference Range Interpretation Comments LDL cholesterol, serum (test code = 87 mg/dL 0-99 2088-1) [facility]very low density [id number] 10:39:00 Test Item Value Reference Range Interpretation Comments very low density lipoproteins (test 44 mg/dL 5-40 H code = 2090-7) [facility] cholesterol, [id number] 10:39:00 Test Item Value Reference Range Interpretation Comments HDL cholesterol, serum (test code = 32 mg/dL >39 L 2084-9) [facility], serum, [id number] 10:39:00 Test Item Value Reference Range Interpretation Comments triglyceride, serum, fasting (test 220 mg/dL 0-149 H code = 2571-8) [facility]olesterol, [id number] 10:39:00 Test Item Value Reference Range Interpretation Comments cholesterol, serum (test code = 163 mg/dL 909-209 5530-3) [facility]alanine aminotransferase (SGPT), [id number] 10:39:00 Test Item Value Reference Range Interpretation Comments alanine aminotransferase (SGPT), serum 15 1/L 0-32 (test code = 1742-6) [facility] Hospitalaspartate aminotransferase (SGOT), [id number] 10:39:00 Test Item Value Reference Range Interpretation Comments aspartate aminotransferase (SGOT), 17 1/L 0-40 serum (test code = 1920-8) [facility] Hospitalalkaline phosphatase, [id number] 10:39:00 Test Item Value Reference Range Interpretation Comments alkaline phosphatase, serum (test code 93 1/L 39-117 = 1783-0) [facility], serum, [id number] 10:39:00 Test Item Value Reference Range Interpretation Comments bilirubin, serum, total (test code <0.2 mg/dL 0.0-1.2 = 1975-2) [facility]albumin/globulin ratio, [id number] 10:39:00 Test Item Value Reference Range Interpretation Comments albumin/globulin ratio, serum (test 1.7 1.2-2.2 code = 1759-0) [facility] Healthglobulin, [id number] 10:39:00 Test Item Value Reference Range Interpretation Comments globulin, serum (test code = 2336-6) 2.4 1.5-4.5 [facility] Healthalbumin, [id number] 10:39:00 Test Item Value Reference Range Interpretation Comments albumin, serum (test code = 1751-7) 4.0 g/dL 3.8-4.9 [facility], total, [id number] 10:39:00 Test Item Value Reference Range Interpretation Comments protein, total, serum (test code = 6.4 g/dL 6.0-8.5 2885-2) [facility]calcium, [id number] 10:39:00 Test Item Value Reference Range Interpretation Comments calcium, serum (test code = 1999-8) 9.1 mg/dL 8.7-10.3 [facility]carbon dioxide, venous [id number] 10:39:00 Test Item Value Reference Range Interpretation Comments carbon dioxide, venous blood (test 27 mmol/L 20-29 code = 2027-1) [facility] Hospitalchloride, [id number] 10:39:00 Test Item Value Reference Range Interpretation Comments chloride, serum (test code = 100 mmol/L 96-106 2075-0) [facility] Healthpotassium, [id number] 10:39:00 Test Item Value Reference Range Interpretation Comments potassium, serum (test code = 4.6 mmol/L 3.5-5.2 2823-3) [facility]alsodium, [id number] 10:39:00 Test Item Value Reference Range Interpretation Comments sodium, serum (test code = 2951-2) 139 mmol/L 134-144 [facility] Hospitalurea nitrogen/creatinine ratio, glwoi7989-06-68 10:39:00 Test Item Value Reference Range Interpretation Comments urea nitrogen/creatinine ratio, serum 13 12-28 (test code = 3097-3) [facility] HealtheGFR if Dojncjpo8317-04-08 10:39:00 Test Item Value Reference Range Interpretation Comments eGFR if 110 >59 (test code = 58020-1) mL/min/((173/100).m2) [facility] HospitalEstimated Glomerular Filtration Rate (calc)2020-05-28 10:39:00 Test Item Value Reference Range Interpretation Comments Estimated Glomerular 96 >59 Filtration Rate (calc) mL/min/((173/100).m2 (test code = 89036-0) ) [facility] Hospitalcreatinine, [id number] 10:39:00 Test Item Value Reference Range Interpretation Comments creatinine, serum (test code = 0.67 mg/dL 0.57-1.00 2160-0) [facility]urea nitrogen, [id number] 10:39:00 Test Item Value Reference Range Interpretation Comments urea nitrogen, blood (test code = 9 mg/dL 8-27 3094-0) [facility]blood glucose, qaczwf7007-37-77 10:39:00 Test Item Value Reference Range Interpretation Comments blood glucose, random (test code = 106 mg/dL 65-99 H 2339-0) [facility] Hospitalimmature granulocytes, percentage of total cells, blood 2020-05-28 10:39:00 Test Item Value Reference Range Interpretation Comments immature granulocytes, percentage of 0 % total cells, blood (test code = 54325-8) [facility] Healthbasophil count, jsmqrkqu4765-95-22 10:39:00 Test Item Value Reference Range Interpretation Comments basophil count, absolute (test 0.0 x10E3/uL 0.0-0.2 code = 70268-5) [facility] HealthEosinophil Absolute Pfieu8673-54-11 10:39:00 Test Item Value Reference Range Interpretation Comments Eosinophil Absolute Count (test 0.1 X10E3/UL 0.0-0.4 code = 14118-3) [facility] Hospitalmonocyte count, blood, jmefllbzn9526-24-21 10:39:00 Test Item Value Reference Range Interpretation Comments monocyte count, blood, automated 0.4 X10E3/UL 0.1-0.9 (test code = 742-7) [facility] Hospitallymphocyte count, blood, hwyylphcg6263-59-71 10:39:00 Test Item Value Reference Range Interpretation Comments lymphocyte count, blood, 1.5 X10E3/UL 0.7-3.1 automated (test code = 731-0) [facility] HealthAbsolute Dbulqeuvqes3248-13-85 10:39:00 Test Item Value Reference Range Interpretation Comments Absolute Neutrophils (test code 4.8 X10E3/UL 1.4-7.0 = 64324-4) [facility] Healthbasophils as percent of blood asulzybfoo1087-13-86 10:39:00 Test Item Value Reference Range Interpretation Comments basophils as percent of blood 0 % leukocytes (test code = 707-0) [facility] Healtheosinophils as percent of blood jwkomkrzqk3044-08-07 10:39:00 Test Item Value Reference Range Interpretation Comments eosinophils as percent of blood 1 % leukocytes (test code = 713-8) [facility] Healthmonocytes as percent of blood arsvumfyws6395-91-69 10:39:00 Test Item Value Reference Range Interpretation Comments monocytes as percent of blood 6 % leukocytes (test code = 5905-5) [facility]allymphocytes as percent of blood bjxfycrfjs4232-76-79 10:39:00 Test Item Value Reference Range Interpretation Comments lymphocytes as percent of blood 23 % leukocytes (test code = 736-9) [facility] Hospitalneutrophils as percent of blood mutrfgvhty9697-48-70 10:39:00 Test Item Value Reference Range Interpretation Comments neutrophils as percent of blood 70 % leukocytes (test code = 770-8) [facility] Hospitalplatelet sghly7613-53-37 10:39:00 Test Item Value Reference Range Interpretation Comments platelet count (test code = 203 X10E3/UL 150-450 777-3) [facility] Hospitalred blood cell distribution qhzca7028-54-81 10:39:00 Test Item Value Reference Range Interpretation Comments red blood cell distribution width 12.4 % 11.7-15.4 (test code = 788-0) [facility], MJZ4011-39-94 10:39:00 Test Item Value Reference Range Interpretation Comments mean corpuscular hemoglobin 36.0 G/DL 31.5-35.7 H concentration, RBC (test code = 786-4) [facility] corpuscular hemoglobin, [id number] 10:39:00 Test Item Value Reference Range Interpretation Comments mean corpuscular hemoglobin, RBC 34.9 pg 26.6-33.0 H (test code = 785-6) [facility] corpuscular volume, QQX5858-97-23 10:39:00 Test Item Value Reference Range Interpretation Comments mean corpuscular volume, RBC (test code 97 fL 79-97 = 787-2) [facility]hematocrit, hmqkw1803-64-73 10:39:00 Test Item Value Reference Range Interpretation Comments hematocrit, blood (test code = 4544-3) 38.1 % 34.0-46.6 [facility] Hospitalhemoglobin, [id number] 10:39:00 Test Item Value Reference Range Interpretation Comments hemoglobin, blood (test code = 13.7 g/dL 11.1-15.9 718-7) [facility] Hospitalerythrocyte (RBC) jfpmh3025-46-37 10:39:00 Test Item Value Reference Range Interpretation Comments erythrocyte (RBC) count (test 3.93 X10E6/UL 3.77-5.28 code = 789-8) [facility] Hospitalleukocyte count, gzfss5325-86-00 10:39:00 Test Item Value Reference Range Interpretation Comments leukocyte count, blood (test 6.8 X10E3/UL 3.4-10.8 code = 6690-2) [facility] HospitalCD4/CD8 yiisi8344-14-77 10:39:00 Test Item Value Reference Range Interpretation Comments CD4/CD8 ratio (test code = 91117) 1.20 0.92-3.72 [facility] HospitalT-suppressor cells (CD8) as percent of blood lymphocytes 2020-05-28 10:39:00 Test Item Value Reference Range Interpretation Comments T-suppressor cells (CD8) as percent of 27.1 % 12.0-35.5 blood lymphocytes (test code = 3517) [facility]absolute [id number] 10:39:00 Test Item Value Reference Range Interpretation Comments absolute CD8 (test code = 64833) 407 109-897 [facility] HospitalT-helper cells (CD4) as percent of blood lymphocytes 2020-05-28 10:39:00 Test Item Value Reference Range Interpretation Comments T-helper cells (CD4) as percent of 32.4 % 30.8-58.5 blood lymphocytes (test code = 8123-2) [facility] HospitalT-helper cells (CD4) ccclx4804-66-80 10:39:00 Test Item Value Reference Range Interpretation Comments T-helper cells (CD4) count (test code 486 /UL 359-1519 = 94355-2) [facility] Hospitalrapid plasma reagin antibody, nbwek0582-13-96 11:23:00 Test Item Value Reference Range Interpretation Comments rapid plasma reagin antibody, Non Reactive Non Reactive serum (test code = 5291-0) [facility] Hospitalhemoglobin A1C, blood, as % of total ptxiiveyeq0532-05-54 11:23:00 Test Item Value Reference Range Interpretation Comments hemoglobin A1C, blood, as % of total 5.6 % 4.8-5.6 hemoglobin (test code = 4548-4) [facility] HospitalHIV-1RNA, serum, by PCR, gothjuzbivgm4401-16-69 11:23:00 Test Item Value Reference Range Interpretation Comments HIV-1RNA, serum, by PCR, <20 copies/mL quantitative (test code = 78500) [facility] HospitalLDL cholesterol, wxawp4282-37-52 11:23:00 Test Item Value Reference Range Interpretation Comments LDL cholesterol, serum (test code = 94 mg/dL 0-99 2088-1) [facility] Hospitalvery low density sofoogusgutm2469-43-99 11:23:00 Test Item Value Reference Range Interpretation Comments very low density lipoproteins (test 57 mg/dL 5-40 H code = 2091-7) [facility] HospitalHDL cholesterol, odwxk5928-77-13 11:23:00 Test Item Value Reference Range Interpretation Comments HDL cholesterol, serum (test code = 36 mg/dL >39 L 2084-9) [facility] Hospitaltriglyceride, serum, [id number] 11:23:00 Test Item Value Reference Range Interpretation Comments triglyceride, serum, fasting (test 284 mg/dL 0-149 H code = 2571-8) [facility] Hospitalcholesterol, [id number] 11:23:00 Test Item Value Reference Range Interpretation Comments cholesterol, serum (test code = 187 mg/dL 689-635 1619-3) [facility] Hospitalalanine aminotransferase (SGPT), qksnn0688-17-29 11:23:00 Test Item Value Reference Range Interpretation Comments alanine aminotransferase (SGPT), serum 7 1/L 0-32 (test code = 1742-6) [facility] Hospitalaspartate aminotransferase (SGOT), [id number] 11:23:00 Test Item Value Reference Range Interpretation Comments aspartate aminotransferase (SGOT), 9 1/L 0-40 serum (test code = 1920-8) [facility] Hospitalalkaline phosphatase, nsduj6445-87-85 11:23:00 Test Item Value Reference Range Interpretation Comments alkaline phosphatase, serum (test code 93 1/L 39-117 = 1783-0) [facility] Hospitalbilirubin, serum, uzwlp6336-35-28 11:23:00 Test Item Value Reference Range Interpretation Comments bilirubin, serum, total (test code <0.2 mg/dL 0.0-1.2 = 1975-2) [facility] Hospitalalbumin/globulin ratio, lvliq4722-73-17 11:23:00 Test Item Value Reference Range Interpretation Comments albumin/globulin ratio, serum (test 1.4 1.2-2.2 code = 1759-0) [facility] Healthglobulin, nqqjy3546-02-40 11:23:00 Test Item Value Reference Range Interpretation Comments globulin, serum (test code = 2336-6) 2.8 1.5-4.5 [facility] Healthalbumin, dbegf7945-03-66 11:23:00 Test Item Value Reference Range Interpretation Comments albumin, serum (test code = 1751-7) 3.9 g/dL 3.8-4.9 [facility] Healthprotein, total, cimnj2149-96-31 11:23:00 Test Item Value Reference Range Interpretation Comments protein, total, serum (test code = 6.7 g/dL 6.0-8.5 2885-2) [facility] Healthcalcium, tbtmq5370-32-27 11:23:00 Test Item Value Reference Range Interpretation Comments calcium, serum (test code = 2000-8) 9.1 mg/dL 8.7-10.3 [facility] Hospitalcarbon dioxide, venous rnpmm8455-37-46 11:23:00 Test Item Value Reference Range Interpretation Comments carbon dioxide, venous blood (test 27 mmol/L - code = 7-1) [facility] Healthchloride, jqinb7383-49-27 11:23:00 Test Item Value Reference Range Interpretation Comments chloride, serum (test code = 99 mmol/L 96-106 2075-0) [facility] Healthpotassium, dvzvt6255-96-33 11:23:00 Test Item Value Reference Range Interpretation Comments potassium, serum (test code = 4.7 mmol/L 3.5-5.2 2823-3) [facility] Healthsodium, uodrb9498-22-59 11:23:00 Test Item Value Reference Range Interpretation Comments sodium, serum (test code = 2951-2) 140 mmol/L 134-144 [facility] Healthurea nitrogen/creatinine ratio, vlrgw5894-96-02 11:23:00 Test Item Value Reference Range Interpretation Comments urea nitrogen/creatinine ratio, serum 17 -28 (test code = 3097-3) [facility] HealtheGFR if Xtsnwwin0032-13-74 11:23:00 Test Item Value Reference Range Interpretation Comments eGFR if 100 >59 (test code = 78825-2) mL/min/((173/100).m2) [facility] HospitalEstimated Glomerular Filtration Rate (calc)2020-02-07 11:23:00 Test Item Value Reference Range Interpretation Comments Estimated Glomerular 87 >59 Filtration Rate (calc) mL/min/((173/100).m2 (test code = 80548-0) ) [facility] Hospitalcreatinine, yugup7340-08-90 11:23:00 Test Item Value Reference Range Interpretation Comments creatinine, serum (test code = 0.75 mg/dL 0.57-1.00 2160-0) [facility] Hospitalurea nitrogen, kipnj5387-62-10 11:23:00 Test Item Value Reference Range Interpretation Comments urea nitrogen, blood (test code = 13 mg/dL 8-27 3094-0) [facility] Hospitalblood glucose, ecpcwn2669-29-96 11:23:00 Test Item Value Reference Range Interpretation Comments blood glucose, random (test code = 74 mg/dL 65-99 2339-0) [facility] Hospitalimmature granulocytes, percentage of total cells, blood 2020-02-07 11:23:00 Test Item Value Reference Range Interpretation Comments immature granulocytes, percentage of 0 % total cells, blood (test code = 09429-7) [facility] Hospitalbasophil count, vixcpual4040-65-37 11:23:00 Test Item Value Reference Range Interpretation Comments basophil count, absolute (test 0.0 x10E3/uL 0.0-0.2 code = 64231-2) [facility] HospitalEosinophil Absolute Fjpob7087-60-13 11:23:00 Test Item Value Reference Range Interpretation Comments Eosinophil Absolute Count (test 0.1 X10E3/UL 0.0-0.4 code = 37883-4) [facility] Hospitalmonocyte count, blood, ogxyferls3354-37-76 11:23:00 Test Item Value Reference Range Interpretation Comments monocyte count, blood, automated 0.4 X10E3/UL 0.1-0.9 (test code = 742-7) [facility] Hospitallymphocyte count, blood, bnquqbqqg9282-04-94 11:23:00 Test Item Value Reference Range Interpretation Comments lymphocyte count, blood, 1.6 X10E3/UL 0.7-3.1 automated (test code = 731-0) [facility] HospitalAbsolute Zonyyvlsibz4768-57-76 11:23:00 Test Item Value Reference Range Interpretation Comments Absolute Neutrophils (test code 5.0 X10E3/UL 1.4-7.0 = 70262-8) [facility] Hospitalbasophils as percent of blood cgpivcfeub1311-26-39 11:23:00 Test Item Value Reference Range Interpretation Comments basophils as percent of blood 0 % leukocytes (test code = 707-0) [facility] Hospitaleosinophils as percent of blood edcafgjunk9373-23-63 11:23:00 Test Item Value Reference Range Interpretation Comments eosinophils as percent of blood 1 % leukocytes (test code = 713-8) [facility] Hospitalmonocytes as percent of blood xouhwukysm4836-90-86 11:23:00 Test Item Value Reference Range Interpretation Comments monocytes as percent of blood 6 % leukocytes (test code = 5905-5) [facility] Hospitallymphocytes as percent of blood iitrlqrorl0843-35-01 11:23:00 Test Item Value Reference Range Interpretation Comments lymphocytes as percent of blood 22 % leukocytes (test code = 736-9) [facility] Hospitalneutrophils as percent of blood irvfgabuco5883-02-92 11:23:00 Test Item Value Reference Range Interpretation Comments neutrophils as percent of blood 71 % leukocytes (test code = 770-8) [facility] Hospitalplatelet gqfmx6191-38-60 11:23:00 Test Item Value Reference Range Interpretation Comments platelet count (test code = 214 X10E3/UL 150-450 777-3) [facility] Hospitalred blood cell distribution fwvzx2022-75-53 11:23:00 Test Item Value Reference Range Interpretation Comments red blood cell distribution width 12.8 % 11.7-15.4 (test code = 788-0) [facility] corpuscular hemoglobin concentration, [id number] 11:23:00 Test Item Value Reference Range Interpretation Comments mean corpuscular hemoglobin 33.4 G/DL 31.5-35.7 concentration, RBC (test code = 786-4) [facility] corpuscular hemoglobin, [id number] 11:23:00 Test Item Value Reference Range Interpretation Comments mean corpuscular hemoglobin, RBC 33.8 pg 26.6-33.0 H (test code = 785-6) [facility] Hospitalmean corpuscular volume, [id number] 11:23:00 Test Item Value Reference Range Interpretation Comments mean corpuscular volume, RBC (test 101 fL 79-97 H code = 787-2) [facility] Hospitalhematocrit, qcqzy7013-96-10 11:23:00 Test Item Value Reference Range Interpretation Comments hematocrit, blood (test code = 4544-3) 40.1 % 34.0-46.6 [facility] Hospitalhemoglobin, vxaiz6932-29-30 11:23:00 Test Item Value Reference Range Interpretation Comments hemoglobin, blood (test code = 13.4 g/dL 11.1-15.9 718-7) [facility] Hospitalerythrocyte (RBC) plpab9032-70-29 11:23:00 Test Item Value Reference Range Interpretation Comments erythrocyte (RBC) count (test 3.97 X10E6/UL 3.77-5.28 code = 789-8) [facility] Hospitalleukocyte count, rmqky2153-57-51 11:23:00 Test Item Value Reference Range Interpretation Comments leukocyte count, blood (test 7.1 X10E3/UL 3.4-10.8 code = 6690-2) [facility] HospitalCD4/CD8 cmmca1160-61-03 11:23:00 Test Item Value Reference Range Interpretation Comments CD4/CD8 ratio (test code = 86833) 1.01 0.92-3.72 [facility] HospitalT-suppressor cells (CD8) as percent of blood lymphocytes 2020-02-07 11:23:00 Test Item Value Reference Range Interpretation Comments T-suppressor cells (CD8) as percent of 28.0 % 12.0-35.5 blood lymphocytes (test code = 3517) [facility]absolute [id number] 11:23:00 Test Item Value Reference Range Interpretation Comments absolute CD8 (test code = 73248) 448 109-897 [facility] HospitalT-helper cells (CD4) as percent of blood lymphocytes 2020-02-07 11:23:00 Test Item Value Reference Range Interpretation Comments T-helper cells (CD4) as percent of 28.4 % 30.8-58.5 L blood lymphocytes (test code = 8123-2) [facility] HospitalT-helper cells (CD4) setur4996-29-12 11:23:00 Test Item Value Reference Range Interpretation Comments T-helper cells (CD4) count (test code 454 /UL 359-1519 = 22785-2) [facility] HospitalQuantiferon Gold TB blood test for tuberculosis screening 2019-10-04 09:29:00 Test Item Value Reference Range Interpretation Comments Quantiferon Gold TB blood test for Positive Negative A tuberculosis screening (test code = 21444-0) [facility] Hospitalhepatitis C antibody, jsyvj8394-59-06 09:19:00 Test Item Value Reference Range Interpretation Comments hepatitis C antibody, serum (test code <0.1 0.0-0.9 = 5199-5) [facility] Hospitalrapid plasma reagin antibody, vqmjk3176-24-72 09:19:00 Test Item Value Reference Range Interpretation Comments rapid plasma reagin antibody, Non Reactive Non Reactive serum (test code = 5291-0) [facility] HospitalHIV-1RNA, serum, by PCR, jfwgpivlcrcj7973-80-60 09:19:00 Test Item Value Reference Range Interpretation Comments HIV-1RNA, serum, by PCR, quantitative 380 /mL (test code = 39587) [facility] HospitalLDL cholesterol, [id number] 09:19:00 Test Item Value Reference Range Interpretation Comments LDL cholesterol, serum (test code = 82 mg/dL 0-99 9-1) [facility] Hospitalvery low density snudhluppzvn2180-69-70 09:19:00 Test Item Value Reference Range Interpretation Comments very low density lipoproteins (test 32 mg/dL 5-40 code = 2091-7) [facility] HospitalHDL cholesterol, tqtxc2865-59-34 09:19:00 Test Item Value Reference Range Interpretation Comments HDL cholesterol, serum (test code = 42 mg/dL >39 5-9) [facility] Hospitaltriglyceride, serum, ktwbsqh0298-82-88 09:19:00 Test Item Value Reference Range Interpretation Comments triglyceride, serum, fasting (test 161 mg/dL 0-149 H code = 2571-8) [facility]cholesterol, xivne2616-52-01 09:19:00 Test Item Value Reference Range Interpretation Comments cholesterol, serum (test code = 156 mg/dL 124-335 6401-3) [facility] Healthalanine aminotransferase (SGPT), bikbz2811-99-17 09:19:00 Test Item Value Reference Range Interpretation Comments alanine aminotransferase (SGPT), serum 10 1/L 0-32 (test code = 1742-6) [facility] Hospitalaspartate aminotransferase (SGOT), xarba1040-86-79 09:19:00 Test Item Value Reference Range Interpretation Comments aspartate aminotransferase (SGOT), 9 1/L 0-40 serum (test code = 1920-8) [facility] Hospitalalkaline phosphatase, zgfzt7729-71-16 09:19:00 Test Item Value Reference Range Interpretation Comments alkaline phosphatase, serum (test code 99 1/L 39-117 = 1783-0) [facility] Healthbilirubin, serum, okmcm7452-79-33 09:19:00 Test Item Value Reference Range Interpretation Comments bilirubin, serum, total (test code 0.3 mg/dL 0.0-1.2 = 1975-2) [facility]albumin/globulin ratio, ujqcj5266-09-70 09:19:00 Test Item Value Reference Range Interpretation Comments albumin/globulin ratio, serum (test 1.6 1.2-2.2 code = 1759-0) [facility] Healthglobulin, uvjye7989-70-25 09:19:00 Test Item Value Reference Range Interpretation Comments globulin, serum (test code = 2336-6) 2.4 1.5-4.5 [facility] Healthalbumin, rmgbh6497-13-80 09:19:00 Test Item Value Reference Range Interpretation Comments albumin, serum (test code = 1751-7) 3.9 g/dL 3.5-5.5 [facility] Healthprotein, total, dgxnp8231-40-90 09:19:00 Test Item Value Reference Range Interpretation Comments protein, total, serum (test code = 6.3 g/dL 6.0-8.5 2885-2) [facility] Hospitalcalcium, tfyer9376-22-87 09:19:00 Test Item Value Reference Range Interpretation Comments calcium, serum (test code = 1999-8) 9.2 mg/dL 8.7-10.2 [facility] Hospitalcarbon dioxide, venous mugve6450-09-70 09:19:00 Test Item Value Reference Range Interpretation Comments carbon dioxide, venous blood (test 27 mmol/L 20-29 code = 2027-1) [facility] Hospitalchloride, psywb3442-07-81 09:19:00 Test Item Value Reference Range Interpretation Comments chloride, serum (test code = 102 mmol/L 96-106 2075-0) [facility] Hospitalpotassium, vrwxd8555-67-38 09:19:00 Test Item Value Reference Range Interpretation Comments potassium, serum (test code = 4.5 mmol/L 3.5-5.2 2823-3) [facility]alsodium, qzdxr0532-81-36 09:19:00 Test Item Value Reference Range Interpretation Comments sodium, serum (test code = 2951-2) 140 mmol/L 134-144 [facility] Hospitalurea nitrogen/creatinine ratio, foxfr3692-29-57 09:19:00 Test Item Value Reference Range Interpretation Comments urea nitrogen/creatinine ratio, serum 25 9-23 H (test code = 3097-3) [facility] HealtheGFR if Fvugvxib9282-14-66 09:19:00 Test Item Value Reference Range Interpretation Comments eGFR if 118 >59 (test code = 41593-7) mL/min/((173/100).m2) [facility] HospitalEstimated Glomerular Filtration Rate (calc)2019-10-04 09:19:00 Test Item Value Reference Range Interpretation Comments Estimated Glomerular 102 >59 Filtration Rate (calc) mL/min/((173/100).m2 (test code = 66888-4) ) [facility] Hospitalcreatinine, ayqwi6934-89-05 09:19:00 Test Item Value Reference Range Interpretation Comments creatinine, serum (test code = 0.56 mg/dL 0.57-1.00 L 2160-0) [facility] Hospitalurea nitrogen, zvdnk3323-06-20 09:19:00 Test Item Value Reference Range Interpretation Comments urea nitrogen, blood (test code = 14 mg/dL 6-24 3094-0) [facility] Hospitalblood glucose, ixavgz5454-00-28 09:19:00 Test Item Value Reference Range Interpretation Comments blood glucose, random (test code = 121 mg/dL 65-99 H 2339-0) [facility] Hospitalimmature granulocytes, percentage of total cells, blood 2019-10-04 09:19:00 Test Item Value Reference Range Interpretation Comments immature granulocytes, percentage of 0 % total cells, blood (test code = 39299-7) [facility] Healthbasophil count, hyecmqar0982-52-84 09:19:00 Test Item Value Reference Range Interpretation Comments basophil count, absolute (test 0.0 x10E3/uL 0.0-0.2 code = 16092-7) [facility] HealthEosinophil Absolute Zfopi8195-16-03 09:19:00 Test Item Value Reference Range Interpretation Comments Eosinophil Absolute Count (test 0.2 X10E3/UL 0.0-0.4 code = 72564-0) [facility] Hospitalmonocyte count, blood, fhevzatbh9693-00-89 09:19:00 Test Item Value Reference Range Interpretation Comments monocyte count, blood, automated 0.4 X10E3/UL 0.1-0.9 (test code = 742-7) [facility] Hospitallymphocyte count, blood, aeoxwipzu9795-80-39 09:19:00 Test Item Value Reference Range Interpretation Comments lymphocyte count, blood, 1.7 X10E3/UL 0.7-3.1 automated (test code = 731-0) [facility] HospitalAbsolute Upvgqhigxrr4347-18-44 09:19:00 Test Item Value Reference Range Interpretation Comments Absolute Neutrophils (test code 3.5 X10E3/UL 1.4-7.0 = 57515-4) [facility] Hospitalbasophils as percent of blood oaeuuqkrth7610-66-14 09:19:00 Test Item Value Reference Range Interpretation Comments basophils as percent of blood 1 % leukocytes (test code = 707-0) [facility] Healtheosinophils as percent of blood wnjdxzhpur8194-19-26 09:19:00 Test Item Value Reference Range Interpretation Comments eosinophils as percent of blood 3 % leukocytes (test code = 713-8) [facility] [facility] blood xgbyhrbufe1171-82-87 09:19:00 Test Item Value Reference Range Interpretation Comments monocytes as percent of blood 7 % leukocytes (test code = 5905-5) [facility] percent of blood onuzmeqrlp4375-53-02 09:19:00 Test Item Value Reference Range Interpretation Comments lymphocytes as percent of blood 29 % leukocytes (test code = 736-9) [facility]neutrophils as percent of blood ettpvgvoop0072-03-86 09:19:00 Test Item Value Reference Range Interpretation Comments neutrophils as percent of blood 60 % leukocytes (test code = 770-8) [facility] Hospitalplatelet [id number] 09:19:00 Test Item Value Reference Range Interpretation Comments platelet count (test code = 234 X10E3/UL 150-450 777-3) [facility]red blood cell distribution vvtca2461-85-02 09:19:00 Test Item Value Reference Range Interpretation Comments red blood cell distribution width 13.0 % 12.3-15.4 (test code = 788-0) [facility] corpuscular hemoglobin concentration, [id number] 09:19:00 Test Item Value Reference Range Interpretation Comments mean corpuscular hemoglobin 33.8 G/DL 31.5-35.7 concentration, RBC (test code = 786-4) [facility], [id number] 09:19:00 Test Item Value Reference Range Interpretation Comments mean corpuscular hemoglobin, RBC 34.9 pg 26.6-33.0 H (test code = 785-6) [facility] corpuscular volume, [id number] 09:19:00 Test Item Value Reference Range Interpretation Comments mean corpuscular volume, RBC (test 103 fL 79-97 H code = 787-2) [facility]ocrit, [id number] 09:19:00 Test Item Value Reference Range Interpretation Comments hematocrit, blood (test code = 4544-3) 41.4 % 34.0-46.6 [facility]hemoglobin, [id number] 09:19:00 Test Item Value Reference Range Interpretation Comments hemoglobin, blood (test code = 14.0 g/dL 11.1-15.9 718-7) [facility] Hospitalerythrocyte (RBC) brgkv6231-21-58 09:19:00 Test Item Value Reference Range Interpretation Comments erythrocyte (RBC) count (test 4.01 X10E6/UL 3.77-5.28 code = 789-8) [facility]leukocyte count, [id number] 09:19:00 Test Item Value Reference Range Interpretation Comments leukocyte count, blood (test 5.8 X10E3/UL 3.4-10.8 code = 6690-2) [facility] HospitalCD4/CD8 iossy0464-92-20 09:19:00 Test Item Value Reference Range Interpretation Comments CD4/CD8 ratio (test code = 48364) 0.91 0.92-3.72 L [facility] HospitalT-suppressor cells (CD8) as percent of blood lymphocytes 2019-10-04 09:19:00 Test Item Value Reference Range Interpretation Comments T-suppressor cells (CD8) as percent of 26.7 % 12.0-35.5 blood lymphocytes (test code = 3517) [facility]absolute [id number] 09:19:00 Test Item Value Reference Range Interpretation Comments absolute CD8 (test code = 66544) 454 109-897 [facility] HospitalT-helper cells (CD4) as percent of blood lymphocytes 2019-10-04 09:19:00 Test Item Value Reference Range Interpretation Comments T-helper cells (CD4) as percent of 24.4 % 30.8-58.5 L blood lymphocytes (test code = 8123-2) [facility] HospitalT-helper cells (CD4) elmsm9765-51-09 09:19:00 Test Item Value Reference Range Interpretation Comments T-helper cells (CD4) count (test code 415 /UL 359-1519 = 50709-9) [facility] HospitalLDL cholesterol, wdfch8476-28-96 10:34:00 Test Item Value Reference Range Interpretation Comments LDL cholesterol, serum (test code = 58 mg/dL 0-99 2088-1) [facility] Hospitalvery low density aooopsgphyxm0437-59-45 10:34:00 Test Item Value Reference Range Interpretation Comments very low density lipoproteins (test 35 mg/dL 5-40 code = 2091-7) [facility] HospitalHDL cholesterol, scjso3058-95-40 10:34:00 Test Item Value Reference Range Interpretation Comments HDL cholesterol, serum (test code = 34 mg/dL >39 L 2084-9) [facility] Hospitaltriglyceride, serum, imyxnyf8892-65-29 10:34:00 Test Item Value Reference Range Interpretation Comments triglyceride, serum, fasting (test 174 mg/dL 0-149 H code = 2571-8) [facility]cholesterol, [id number] 10:34:00 Test Item Value Reference Range Interpretation Comments cholesterol, serum (test code = 127 mg/dL 622-251 3361-3) [facility] Hospitalrapid plasma reagin antibody, [id number] 10:25:00 Test Item Value Reference Range Interpretation Comments rapid plasma reagin antibody, Non Reactive Non Reactive serum (test code = 5291-0) [facility] HospitalHIV-1RNA, serum, by PCR, jnajekeemnjk9348-64-83 10:25:00 Test Item Value Reference Range Interpretation Comments HIV-1RNA, serum, by PCR, <20 copies/mL quantitative (test code = 31372) [facility] Hospitalalanine aminotransferase (SGPT), kfvnb3722-01-79 10:25:00 Test Item Value Reference Range Interpretation Comments alanine aminotransferase (SGPT), serum 12 1/L 0-32 (test code = 1742-6) [facility] Hospitalaspartate aminotransferase (SGOT), [id number] 10:25:00 Test Item Value Reference Range Interpretation Comments aspartate aminotransferase (SGOT), 9 1/L 0-40 serum (test code = 1920-8) [facility] Hospitalalkaline phosphatase, jpdmr8622-71-74 10:25:00 Test Item Value Reference Range Interpretation Comments alkaline phosphatase, serum (test 102 1/L 39-117 code = 1783-0) [facility]bilirubin, serum, kuriy0228-89-40 10:25:00 Test Item Value Reference Range Interpretation Comments bilirubin, serum, total (test code 0.4 mg/dL 0.0-1.2 = 1975-2) [facility] Hospitalalbumin/globulin ratio, ioqpx0563-04-02 10:25:00 Test Item Value Reference Range Interpretation Comments albumin/globulin ratio, serum (test 1.4 1.2-2.2 code = 1759-0) [facility] Hospitalglobulin, drhut1295-07-65 10:25:00 Test Item Value Reference Range Interpretation Comments globulin, serum (test code = 2336-6) 2.8 1.5-4.5 [facility] Hospitalalbumin, ynwaw6793-04-26 10:25:00 Test Item Value Reference Range Interpretation Comments albumin, serum (test code = 1751-7) 4.0 g/dL 3.5-5.5 [facility] Healthprotein, total, [id number] 10:25:00 Test Item Value Reference Range Interpretation Comments protein, total, serum (test code = 6.8 g/dL 6.0-8.5 2885-2) [facility] Hospitalcalcium, [id number] 10:25:00 Test Item Value Reference Range Interpretation Comments calcium, serum (test code = 1999-) 9.3 mg/dL 8.7-10.2 [facility] Hospitalcarbon dioxide, venous [id number] 10:25:00 Test Item Value Reference Range Interpretation Comments carbon dioxide, venous blood (test 29 mmol/L code = 2026-1) [facility] Hospitalchloride, mvfbe6539-69-27 10:25:00 Test Item Value Reference Range Interpretation Comments chloride, serum (test code = 99 mmol/L 96-106 5-0) [facility] Hospitalpotassium, quchj7701-36-92 10:25:00 Test Item Value Reference Range Interpretation Comments potassium, serum (test code = 4.4 mmol/L 3.5-5.2 2823-3) [facility] Hospitalsodium, wzawq7829-05-54 10:25:00 Test Item Value Reference Range Interpretation Comments sodium, serum (test code = 2951-2) 140 mmol/L 134-144 [facility] Hospitalurea nitrogen/creatinine ratio, [id number] 10:25:00 Test Item Value Reference Range Interpretation Comments urea nitrogen/creatinine ratio, serum 20 9-23 (test code = 3097-3) [facility] HealtheGFR if Rezdmijx1979-30-72 10:25:00 Test Item Value Reference Range Interpretation Comments eGFR if 115 >59 (test code = 20782-7) mL/min/((173/100).m2) [facility] HospitalEstimated Glomerular Filtration Rate (calc)2019-06-07 10:25:00 Test Item Value Reference Range Interpretation Comments Estimated Glomerular 100 >59 Filtration Rate (calc) mL/min/((173/100).m2 (test code = 87938-2) ) [facility] Healthcreatinine, [id number] 10:25:00 Test Item Value Reference Range Interpretation Comments creatinine, serum (test code = 0.61 mg/dL 0.57-1.00 2160-0) [facility] Healthurea nitrogen, axvex5512-80-87 10:25:00 Test Item Value Reference Range Interpretation Comments urea nitrogen, blood (test code = 12 mg/dL 6-24 3094-0) [facility] Hospitalblood glucose, [id number] 10:25:00 Test Item Value Reference Range Interpretation Comments blood glucose, random (test code = 131 mg/dL 65-99 H 2339-0) [facility] Hospitalimmature granulocytes, percentage of total cells, blood 2019-06-07 10:25:00 Test Item Value Reference Range Interpretation Comments immature granulocytes, percentage of 0 % total cells, blood (test code = 86809-5) [facility] Hospitalbasophil count, dqffmdsu3950-17-87 10:25:00 Test Item Value Reference Range Interpretation Comments basophil count, absolute (test 0.0 x10E3/uL 0.0-0.2 code = 57468-7) [facility] HospitalEosinophil Absolute Upoie1361-51-89 10:25:00 Test Item Value Reference Range Interpretation Comments Eosinophil Absolute Count (test 0.1 X10E3/UL 0.0-0.4 code = 00709-4) [facility] Hospitalmonocyte count, blood, qujafkbvw5836-76-06 10:25:00 Test Item Value Reference Range Interpretation Comments monocyte count, blood, automated 0.3 X10E3/UL 0.1-0.9 (test code = 742-7) [facility] Hospitallymphocyte count, blood, twrkdkyrt5545-76-06 10:25:00 Test Item Value Reference Range Interpretation Comments lymphocyte count, blood, 1.4 X10E3/UL 0.7-3.1 automated (test code = 731-0) [facility] HospitalAbsolute Vnqzhluhaoz2817-06-26 10:25:00 Test Item Value Reference Range Interpretation Comments Absolute Neutrophils (test code 5.3 X10E3/UL 1.4-7.0 = 81773-4) [facility] Hospitalbasophils as percent of blood zgmcepkgma4892-49-21 10:25:00 Test Item Value Reference Range Interpretation Comments basophils as percent of blood 0 % leukocytes (test code = 707-0) [facility] Healtheosinophils as percent of blood fsslxffelm7992-81-36 10:25:00 Test Item Value Reference Range Interpretation Comments eosinophils as percent of blood 1 % leukocytes (test code = 713-8) [facility] Healthmonocytes as percent of blood xorbcmrmym4917-82-16 10:25:00 Test Item Value Reference Range Interpretation Comments monocytes as percent of blood 5 % leukocytes (test code = 5905-5) [facility]allymphocytes as percent of blood mydjwfccka1416-46-09 10:25:00 Test Item Value Reference Range Interpretation Comments lymphocytes as percent of blood 19 % leukocytes (test code = 736-9) [facility] Hospitalneutrophils as percent of blood aotlffdqns2870-88-96 10:25:00 Test Item Value Reference Range Interpretation Comments neutrophils as percent of blood 75 % leukocytes (test code = 770-8) [facility] Hospitalplatelet vxecd8098-55-69 10:25:00 Test Item Value Reference Range Interpretation Comments platelet count (test code = 227 X10E3/UL 150-450 777-3) [facility] Hospitalred blood cell distribution [id number] 10:25:00 Test Item Value Reference Range Interpretation Comments red blood cell distribution width 13.4 % 12.3-15.4 (test code = 788-0) [facility] corpuscular hemoglobin concentration, [id number] 10:25:00 Test Item Value Reference Range Interpretation Comments mean corpuscular hemoglobin 34.2 G/DL 31.5-35.7 concentration, RBC (test code = 786-4) [facility], [id number] 10:25:00 Test Item Value Reference Range Interpretation Comments mean corpuscular hemoglobin, RBC 34.8 pg 26.6-33.0 H (test code = 785-6) [facility] corpuscular volume, [id number] 10:25:00 Test Item Value Reference Range Interpretation Comments mean corpuscular volume, RBC (test 102 fL 79-97 H code = 787-2) [facility]hematocrit, vvxlw6856-10-70 10:25:00 Test Item Value Reference Range Interpretation Comments hematocrit, blood (test code = 4544-3) 42.7 % 34.0-46.6 [facility] Hospitalhemoglobin, [id number] 10:25:00 Test Item Value Reference Range Interpretation Comments hemoglobin, blood (test code = 14.6 g/dL 11.1-15.9 718-7) [facility] Hospitalerythrocyte (RBC) [id number] 10:25:00 Test Item Value Reference Range Interpretation Comments erythrocyte (RBC) count (test 4.20 X10E6/UL 3.77-5.28 code = 789-8) [facility] Hospitalleukocyte count, fargy0998-80-42 10:25:00 Test Item Value Reference Range Interpretation Comments leukocyte count, blood (test 7.1 X10E3/UL 3.4-10.8 code = 6690-2) [facility] HospitalCD4/CD8 igeoe4180-86-06 10:25:00 Test Item Value Reference Range Interpretation Comments CD4/CD8 ratio (test code = 55732) 1.00 0.92-3.72 [facility] HospitalT-suppressor cells (CD8) as percent of blood lymphocytes 2019-06-07 10:25:00 Test Item Value Reference Range Interpretation Comments T-suppressor cells (CD8) as percent of 27.5 % 12.0-35.5 blood lymphocytes (test code = 3517) [facility]absolute [id number] 10:25:00 Test Item Value Reference Range Interpretation Comments absolute CD8 (test code = 70302) 385 109-897 [facility] HospitalT-helper cells (CD4) as percent of blood lymphocytes 2019-06-07 10:25:00 Test Item Value Reference Range Interpretation Comments T-helper cells (CD4) as percent of 27.5 % 30.8-58.5 L blood lymphocytes (test code = 8123-2) [facility] HospitalT-helper cells (CD4) lbdlk0490-46-72 10:25:00 Test Item Value Reference Range Interpretation Comments T-helper cells (CD4) count (test code 385 /UL 359-1519 = 90496-3) [facility] Hospitalrapid plasma reagin antibody, lggax6372-29-44 08:54:00 Test Item Value Reference Range Interpretation Comments rapid plasma reagin antibody, Non Reactive Non Reactive serum (test code = 5291-0) [facility] HospitalHIV-1RNA, serum, by PCR, ofzwhxmkxsnn8382-81-29 08:54:00 Test Item Value Reference Range Interpretation Comments HIV-1RNA, serum, by PCR, <20 copies/mL quantitative (test code = 99634) [facility] Hospitalalanine aminotransferase (SGPT), chhzk3766-90-48 08:54:00 Test Item Value Reference Range Interpretation Comments alanine aminotransferase (SGPT), serum 12 1/L 0-32 (test code = 1742-6) [facility] Healthaspartate aminotransferase (SGOT), itlht6597-74-83 08:54:00 Test Item Value Reference Range Interpretation Comments aspartate aminotransferase (SGOT), 12 1/L 0-40 serum (test code = 1920-8) [facility] Hospitalalkaline phosphatase, jywhb1250-31-78 08:54:00 Test Item Value Reference Range Interpretation Comments alkaline phosphatase, serum (test 109 1/L 39-117 code = 1783-0) [facility]bilirubin, serum, pwkyq0295-76-43 08:54:00 Test Item Value Reference Range Interpretation Comments bilirubin, serum, total (test code 0.2 mg/dL 0.0-1.2 = 1975-2) [facility]albumin/globulin ratio, amvho0183-90-60 08:54:00 Test Item Value Reference Range Interpretation Comments albumin/globulin ratio, serum (test 1.5 1.2-2.2 code = 1759-0) [facility] Healthglobulin, odxzp2577-96-66 08:54:00 Test Item Value Reference Range Interpretation Comments globulin, serum (test code = 2336-6) 2.6 1.5-4.5 [facility] Healthalbumin, dmhca2303-50-50 08:54:00 Test Item Value Reference Range Interpretation Comments albumin, serum (test code = 1751-7) 4.0 g/dL 3.5-5.5 [facility]protein, total, fveys1473-61-80 08:54:00 Test Item Value Reference Range Interpretation Comments protein, total, serum (test code = 6.6 g/dL 6.0-8.5 4635-2) [facility] Hospitalcalcium, pcnma6748-07-87 08:54:00 Test Item Value Reference Range Interpretation Comments calcium, serum (test code = 1999-8) 9.3 mg/dL 8.7-10.2 [facility] Hospitalcarbon dioxide, venous [id number] 08:54:00 Test Item Value Reference Range Interpretation Comments carbon dioxide, venous blood (test 26 mmol/L 20-29 code = 7-1) [facility] Healthchloride, qvnkz4500-55-16 08:54:00 Test Item Value Reference Range Interpretation Comments chloride, serum (test code = 102 mmol/L 96-106 2075-0) [facility] Hospitalpotassium, ojtlh0427-01-79 08:54:00 Test Item Value Reference Range Interpretation Comments potassium, serum (test code = 4.8 mmol/L 3.5-5.2 2823-3) [facility] Hospitalsodium, tvnbh2865-78-41 08:54:00 Test Item Value Reference Range Interpretation Comments sodium, serum (test code = 2951-2) 143 mmol/L 134-144 [facility] Hospitalurea nitrogen/creatinine ratio, gjebb8143-01-16 08:54:00 Test Item Value Reference Range Interpretation Comments urea nitrogen/creatinine ratio, serum 11 9-23 (test code = 3097-3) [facility] HealtheGFR if Ejaaiyki4970-06-56 08:54:00 Test Item Value Reference Range Interpretation Comments eGFR if 113 >59 (test code = 34931-2) mL/min/((173/100).m2) [facility] HospitalEstimated Glomerular Filtration Rate (calc)2019-02-08 08:54:00 Test Item Value Reference Range Interpretation Comments Estimated Glomerular 98 >59 Filtration Rate (calc) mL/min/((173/100).m2 (test code = 56936-4) ) [facility] Hospitalcreatinine, [id number] 08:54:00 Test Item Value Reference Range Interpretation Comments creatinine, serum (test code = 0.64 mg/dL 0.57-1.00 2160-0) [facility] Hospitalurea nitrogen, olyvx5099-09-51 08:54:00 Test Item Value Reference Range Interpretation Comments urea nitrogen, blood (test code = 7 mg/dL 6-24 3094-0) [facility] Hospitalblood glucose, nmgsye3497-21-30 08:54:00 Test Item Value Reference Range Interpretation Comments blood glucose, random (test code = 157 mg/dL 65-99 H 2339-0) [facility] Hospitalimmature granulocytes, percentage of total cells, blood 2019-02-08 08:54:00 Test Item Value Reference Range Interpretation Comments immature granulocytes, percentage of 0 % total cells, blood (test code = 55040-2) [facility] Healthbasophil count, cxupeelg0899-34-00 08:54:00 Test Item Value Reference Range Interpretation Comments basophil count, absolute (test 0.0 x10E3/uL 0.0-0.2 code = 86858-0) [facility] HealthEosinophil Absolute Ybtvm9365-98-74 08:54:00 Test Item Value Reference Range Interpretation Comments Eosinophil Absolute Count (test 0.2 X10E3/UL 0.0-0.4 code = 46675-7) [facility] Hospitalmonocyte count, blood, vthozfsso2000-92-12 08:54:00 Test Item Value Reference Range Interpretation Comments monocyte count, blood, automated 0.6 X10E3/UL 0.1-0.9 (test code = 742-7) [facility] Hospitallymphocyte count, blood, ansjhwsri6816-93-66 08:54:00 Test Item Value Reference Range Interpretation Comments lymphocyte count, blood, 1.2 X10E3/UL 0.7-3.1 automated (test code = 731-0) [facility] HospitalAbsolute Wcrqfqdqsgh1924-79-41 08:54:00 Test Item Value Reference Range Interpretation Comments Absolute Neutrophils (test code 6.1 X10E3/UL 1.4-7.0 = 42402-0) [facility] Hospitalbasophils as percent of blood grlkshyizg5629-90-68 08:54:00 Test Item Value Reference Range Interpretation Comments basophils as percent of blood 0 % leukocytes (test code = 707-0) [facility] Healtheosinophils as percent of blood abkjztoisl2085-11-75 08:54:00 Test Item Value Reference Range Interpretation Comments eosinophils as percent of blood 2 % leukocytes (test code = 713-8) [facility] Healthmonocytes as percent of blood mutwnvuzwj5294-32-56 08:54:00 Test Item Value Reference Range Interpretation Comments monocytes as percent of blood 8 % leukocytes (test code = 5905-5) [facility] Hospitallymphocytes as percent of blood xwpyunutdb8847-27-52 08:54:00 Test Item Value Reference Range Interpretation Comments lymphocytes as percent of blood 14 % leukocytes (test code = 736-9) [facility] Hospitalneutrophils as percent of blood uazsxageay0017-52-23 08:54:00 Test Item Value Reference Range Interpretation Comments neutrophils as percent of blood 76 % leukocytes (test code = 770-8) [facility] Hospitalplatelet odmnf8297-55-70 08:54:00 Test Item Value Reference Range Interpretation Comments platelet count (test code = 213 X10E3/UL 150-379 777-3) [facility] Hospitalred blood cell distribution jznvh8749-06-29 08:54:00 Test Item Value Reference Range Interpretation Comments red blood cell distribution width 13.6 % 12.3-15.4 (test code = 788-0) [facility] corpuscular hemoglobin concentration, [id number] 08:54:00 Test Item Value Reference Range Interpretation Comments mean corpuscular hemoglobin 33.7 G/DL 31.5-35.7 concentration, RBC (test code = 786-4) [facility] corpuscular hemoglobin, [id number] 08:54:00 Test Item Value Reference Range Interpretation Comments mean corpuscular hemoglobin, RBC 33.9 pg 26.6-33.0 H (test code = 785-6) [facility] corpuscular volume, [id number] 08:54:00 Test Item Value Reference Range Interpretation Comments mean corpuscular volume, RBC (test 101 fL 79-97 H code = 787-2) [facility]hematocrit, ggkts7782-98-76 08:54:00 Test Item Value Reference Range Interpretation Comments hematocrit, blood (test code = 4544-3) 43.3 % 34.0-46.6 [facility]hemoglobin, bbzms6304-27-39 08:54:00 Test Item Value Reference Range Interpretation Comments hemoglobin, blood (test code = 14.6 g/dL 11.1-15.9 718-7) [facility] Hospitalerythrocyte (RBC) dxfuc3843-82-77 08:54:00 Test Item Value Reference Range Interpretation Comments erythrocyte (RBC) count (test 4.31 X10E6/UL 3.77-5.28 code = 789-8) [facility] Hospitalleukocyte count, kiipb7518-30-56 08:54:00 Test Item Value Reference Range Interpretation Comments leukocyte count, blood (test 8.0 X10E3/UL 3.4-10.8 code = 6690-2) [facility] HospitalCD4/CD8 rkhfq1555-21-44 08:54:00 Test Item Value Reference Range Interpretation Comments CD4/CD8 ratio (test code = 76997) 1.08 0.92-3.72 [facility] HospitalT-suppressor cells (CD8) as percent of blood lymphocytes 2019-02-08 08:54:00 Test Item Value Reference Range Interpretation Comments T-suppressor cells (CD8) as percent of 28.6 % 12.0-35.5 blood lymphocytes (test code = 3517) [facility] Hospitalabsolute [id number] 08:54:00 Test Item Value Reference Range Interpretation Comments absolute CD8 (test code = 01129) 343 109-897 [facility] HospitalT-helper cells (CD4) as percent of blood lymphocytes 2019-02-08 08:54:00 Test Item Value Reference Range Interpretation Comments T-helper cells (CD4) as percent of 30.9 % 30.8-58.5 blood lymphocytes (test code = 8123-2) [facility] HospitalT-helper cells (CD4) bpvzx8450-52-17 08:54:00 Test Item Value Reference Range Interpretation Comments T-helper cells (CD4) count (test code 371 /UL 359-1519 = 78999-9) [facility] HospitalLDL cholesterol, fijey8198-49-52 08:51:00 Test Item Value Reference Range Interpretation Comments LDL cholesterol, serum (test code = 45 mg/dL 0-99 2088-1) [facility]y low density komecxavkrkc6675-72-59 08:51:00 Test Item Value Reference Range Interpretation Comments very low density lipoproteins (test 38 mg/dL 5-40 code = 2091-7) [facility] HospitalHDL cholesterol, cnyrq9286-89-16 08:51:00 Test Item Value Reference Range Interpretation Comments HDL cholesterol, serum (test code = 36 mg/dL >39 L 5-9) [facility] Hospitaltriglyceride, serum, lwcryvq8722-53-82 08:51:00 Test Item Value Reference Range Interpretation Comments triglyceride, serum, fasting (test 188 mg/dL 0-149 H code = 2571-8) [facility]cholesterol, pvyuj6130-34-34 08:51:00 Test Item Value Reference Range Interpretation Comments cholesterol, serum (test code = 119 mg/dL 534-518 1821-3) [facility] HospitalBASIC METABOLIC [id number] 02:25:00 Test Item Value Reference Range Interpretation [...] code = 8.4 mg/dL 8.0-10.5 N [place]) [facility] PHONE# for criticals-[phone] or [phone] PHONE [phone], FAX# cbc W/AUTO [id number] 02:13:00 Test Item Value Reference Range Interpretation [...] DIFF REQUIRED (test code NO = [place]) [facility] PHONE# for [phone] or [phone] PHONE [phone], FAX# Quantiferon Gold TB blood test for tuberculosis [id number] 10:19:59 Test Item Value Reference Range Interpretation Comments Quantiferon Gold TB blood test for negative tuberculosis screening (test code = 21056-5) [facility] test for tuberculosis screening 2018-09-26 08:58:00 Test Item Value Reference Range Interpretation Comments Quantiferon Gold TB blood test for Negative Negative tuberculosis screening (test code = 48235-5) [facility]hepat[facility] antibody, [id number] 08:52:00 Test Item Value Reference Range Interpretation Comments hepatitis C antibody, serum (test code 0.3 0.0-0.9 = 5199-5) [facility]rapid plasma reagin antibody, [id number] 08:52:00 Test Item Value Reference Range Interpretation Comments rapid plasma reagin antibody, Non Reactive Non Reactive serum (test code = 5291-0) [facility] HospitalHIV-1RNA, serum, by PCR, [id number] 08:52:00 Test Item Value Reference Range Interpretation Comments HIV-1RNA, serum, by PCR, <20 copies/mL quantitative (test code = 86494) [facility] HospitalLDL cholesterol, [id number] 08:52:00 Test Item Value Reference Range Interpretation Comments LDL cholesterol, serum (test code = 69 mg/dL 0-99 2088-1) [facility]y low density nvsnayervlmr9682-45-66 08:52:00 Test Item Value Reference Range Interpretation Comments very low density lipoproteins (test 29 mg/dL 5-40 code = 2091-7) [facility]HDL cholesterol, jgfup9225-35-67 08:52:00 Test Item Value Reference Range Interpretation Comments HDL cholesterol, serum (test code = 41 mg/dL >39 5-9) [facility]triglyceride, serum, ctwzile6482-07-39 08:52:00 Test Item Value Reference Range Interpretation Comments triglyceride, serum, fasting (test 143 mg/dL 0-149 code = 2571-8) [facility]cholesterol, twyqn8599-68-90 08:52:00 Test Item Value Reference Range Interpretation Comments cholesterol, serum (test code = 139 mg/dL 599-034 5298-3) [facility] Healthalanine aminotransferase (SGPT), ybdoo9665-28-16 08:52:00 Test Item Value Reference Range Interpretation Comments alanine aminotransferase (SGPT), serum 11 1/L 0-32 (test code = 1742-6) [facility] Hospitalaspartate aminotransferase (SGOT), ujyup1483-19-91 08:52:00 Test Item Value Reference Range Interpretation Comments aspartate aminotransferase (SGOT), 12 1/L 0-40 serum (test code = 1920-8) [facility] Hospitalalkaline phosphatase, hiwxc2772-96-04 08:52:00 Test Item Value Reference Range Interpretation Comments alkaline phosphatase, serum (test 141 1/L 39-117 H code = 1783-0) [facility]bilirubin, serum, hiqek5672-38-64 08:52:00 Test Item Value Reference Range Interpretation Comments bilirubin, serum, total (test code 0.3 mg/dL 0.0-1.2 = 1975-2) [facility]albumin/globulin ratio, dnhid2270-24-07 08:52:00 Test Item Value Reference Range Interpretation Comments albumin/globulin ratio, serum (test 1.7 1.2-2.2 code = 1759-0) [facility] Healthglobulin, [id number] 08:52:00 Test Item Value Reference Range Interpretation Comments globulin, serum (test code = 2336-6) 2.5 1.5-4.5 [facility] Healthalbumin, [id number] 08:52:00 Test Item Value Reference Range Interpretation Comments albumin, serum (test code = 1751-7) 4.2 g/dL 3.5-5.5 [facility]protein, total, iamrb3892-86-09 08:52:00 Test Item Value Reference Range Interpretation Comments protein, total, serum (test code = 6.7 g/dL 6.0-8.5 2885-2) [facility] Hospitalcalcium, [id number] 08:52:00 Test Item Value Reference Range Interpretation Comments calcium, serum (test code = 1999-8) 9.4 mg/dL 8.7-10.2 [facility] Hospitalcarbon dioxide, venous ucugy6258-90-66 08:52:00 Test Item Value Reference Range Interpretation Comments carbon dioxide, venous blood (test 26 mmol/L code = 7-1) [facility] Hospitalchloride, mhuhn4748-00-44 08:52:00 Test Item Value Reference Range Interpretation Comments chloride, serum (test code = 98 mmol/L 96-106 2075-0) [facility] Hospitalpotassium, twjwk2972-97-40 08:52:00 Test Item Value Reference Range Interpretation Comments potassium, serum (test code = 4.4 mmol/L 3.5-5.2 2823-3) [facility] Hospitalsodium, xnvcq8225-65-02 08:52:00 Test Item Value Reference Range Interpretation Comments sodium, serum (test code = 2951-2) 140 mmol/L 134-144 [facility] Hospitalurea nitrogen/creatinine ratio, plldt2711-47-95 08:52:00 Test Item Value Reference Range Interpretation Comments urea nitrogen/creatinine ratio, serum 12 9-23 (test code = 3097-3) [facility] HospitaleGFR if Owxzjtin7647-44-82 08:52:00 Test Item Value Reference Range Interpretation Comments eGFR if 98 >59 (test code = 30699-8) mL/min/((173/100).m2) [facility] HospitalEstimated Glomerular Filtration Rate (calc)2018-09-26 08:52:00 Test Item Value Reference Range Interpretation Comments Estimated Glomerular 85 >59 Filtration Rate (calc) mL/min/((173/100).m2 (test code = 19141-5) ) [facility] Hospitalcreatinine, [id number] 08:52:00 Test Item Value Reference Range Interpretation Comments creatinine, serum (test code = 0.77 mg/dL 0.57-1.00 2160-0) [facility] Hospitalurea nitrogen, ctpzl9857-30-30 08:52:00 Test Item Value Reference Range Interpretation Comments urea nitrogen, blood (test code = 9 mg/dL 6-24 3094-0) [facility] Hospitalblood glucose, ujhptr5242-17-72 08:52:00 Test Item Value Reference Range Interpretation Comments blood glucose, random (test code = 129 mg/dL 65-99 H 2339-0) [facility] Hospitalimmature granulocytes, percentage of total cells, blood 2018-09-26 08:52:00 Test Item Value Reference Range Interpretation Comments immature granulocytes, percentage of 0 % total cells, blood (test code = 56120-9) [facility] Healthbasophil count, udlivldo5538-65-11 08:52:00 Test Item Value Reference Range Interpretation Comments basophil count, absolute (test 0.0 x10E3/uL 0.0-0.2 code = 20055-7) [facility] HealthEosinophil Absolute Fecxn4764-06-54 08:52:00 Test Item Value Reference Range Interpretation Comments Eosinophil Absolute Count (test 0.2 X10E3/UL 0.0-0.4 code = 38604-2) [facility] Hospitalmonocyte count, blood, kffgqhtgf7824-41-81 08:52:00 Test Item Value Reference Range Interpretation Comments monocyte count, blood, automated 0.6 X10E3/UL 0.1-0.9 (test code = 742-7) [facility] Hospitallymphocyte count, blood, pllmyprmn5846-90-88 08:52:00 Test Item Value Reference Range Interpretation Comments lymphocyte count, blood, 1.7 X10E3/UL 0.7-3.1 automated (test code = 731-0) [facility] HospitalAbsolute Hfpofmyinpy9032-25-93 08:52:00 Test Item Value Reference Range Interpretation Comments Absolute Neutrophils (test code 4.3 X10E3/UL 1.4-7.0 = 22755-3) [facility] Hospitalbasophils as percent of blood utclcermxk4271-84-77 08:52:00 Test Item Value Reference Range Interpretation Comments basophils as percent of blood 0 % leukocytes (test code = 707-0) [facility] Healtheosinophils as percent of blood hvvbyavycc4698-59-56 08:52:00 Test Item Value Reference Range Interpretation Comments eosinophils as percent of blood 3 % leukocytes (test code = 713-8) [facility] Healthmonocytes as percent of blood grkllvwpif9708-89-38 08:52:00 Test Item Value Reference Range Interpretation Comments monocytes as percent of blood 8 % leukocytes (test code = 5905-5) [facility] Hospitallymphocytes as percent of blood mxusbooxxy8271-51-90 08:52:00 Test Item Value Reference Range Interpretation Comments lymphocytes as percent of blood 25 % leukocytes (test code = 736-9) [facility] Hospitalneutrophils as percent of blood llffawkuoa9710-32-03 08:52:00 Test Item Value Reference Range Interpretation Comments neutrophils as percent of blood 64 % leukocytes (test code = 770-8) [facility] Hospitalplatelet nokdq4280-06-06 08:52:00 Test Item Value Reference Range Interpretation Comments platelet count (test code = 173 X10E3/UL 150-379 777-3) [facility] Hospitalred blood cell distribution cwcgi5841-48-49 08:52:00 Test Item Value Reference Range Interpretation Comments red blood cell distribution width 12.4 % 12.3-15.4 (test code = 788-0) [facility] corpuscular hemoglobin concentration, [id number] 08:52:00 Test Item Value Reference Range Interpretation Comments mean corpuscular hemoglobin 34.0 G/DL 31.5-35.7 concentration, RBC (test code = 786-4) [facility] corpuscular hemoglobin, [id number] 08:52:00 Test Item Value Reference Range Interpretation Comments mean corpuscular hemoglobin, RBC 34.7 pg 26.6-33.0 H (test code = 785-6) [facility] corpuscular volume, [id number] 08:52:00 Test Item Value Reference Range Interpretation Comments mean corpuscular volume, RBC (test 102 fL 79-97 H code = 787-2) [facility] Hospitalhematocrit, pvuqg7807-37-23 08:52:00 Test Item Value Reference Range Interpretation Comments hematocrit, blood (test code = 4544-3) 40.9 % 34.0-46.6 [facility] Hospitalhemoglobin, [id number] 08:52:00 Test Item Value Reference Range Interpretation Comments hemoglobin, blood (test code = 13.9 g/dL 11.1-15.9 718-7) [facility] Hospitalerythrocyte (RBC) ltrtl9689-48-93 08:52:00 Test Item Value Reference Range Interpretation Comments erythrocyte (RBC) count (test 4.01 X10E6/UL 3.77-5.28 code = 789-8) [facility] Hospitalleukocyte count, [id number] 08:52:00 Test Item Value Reference Range Interpretation Comments leukocyte count, blood (test 6.8 X10E3/UL 3.4-10.8 code = 6690-2) [facility] HospitalCD4/CD8 lpzxp0303-66-44 08:52:00 Test Item Value Reference Range Interpretation Comments CD4/CD8 ratio (test code = 40902) 0.98 0.92-3.72 [facility] HospitalT-suppressor cells (CD8) as percent of blood lymphocytes 2018-09-26 08:52:00 Test Item Value Reference Range Interpretation Comments T-suppressor cells (CD8) as percent of 26.4 % 12.0-35.5 blood lymphocytes (test code = 3517) [facility] Hospitalabsolute [id number] 08:52:00 Test Item Value Reference Range Interpretation Comments absolute CD8 (test code = 86279) 449 109-897 [facility] HospitalT-helper cells (CD4) as percent of blood lymphocytes 2018-09-26 08:52:00 Test Item Value Reference Range Interpretation Comments T-helper cells (CD4) as percent of 25.9 % 30.8-58.5 L blood lymphocytes (test code = 8123-2) [facility] HospitalT-helper cells (CD4) deyrb3887-50-03 08:52:00 Test Item Value Reference Range Interpretation Comments T-helper cells (CD4) count (test code 440 /UL 359-1519 = 90855-5) [facility] Hospitalrapid plasma reagin antibody, [id number] 09:22:00 Test Item Value Reference Range Interpretation Comments rapid plasma reagin antibody, Non Reactive Non Reactive serum (test code = 5291-0) [facility] HospitalHIV-1RNA, serum, by PCR, wlccmvdcjhtd6272-55-62 09:22:00 Test Item Value Reference Range Interpretation Comments HIV-1RNA, serum, by PCR, <20 copies/mL quantitative (test code = 11349) [facility] HospitalLDL cholesterol, hwplh0728-07-19 09:22:00 Test Item Value Reference Range Interpretation Comments LDL cholesterol, serum (test code = 63 mg/dL 0-99 2088-1) [facility] rhkdwigfceuk1247-53-76 09:22:00 Test Item Value Reference Range Interpretation Comments very low density lipoproteins (test 53 mg/dL 5-40 H code = 2091-7) [facility] HospitalHDL cholesterol, egwla0082-16-46 09:22:00 Test Item Value Reference Range Interpretation Comments HDL cholesterol, serum (test code = 38 mg/dL >39 L 5-9) [facility] Hospitaltriglyceride, serum, diklpgb8437-40-92 09:22:00 Test Item Value Reference Range Interpretation Comments triglyceride, serum, fasting (test 265 mg/dL 0-149 H code = 2571-8) [facility]cholesterol, grijq8900-75-70 09:22:00 Test Item Value Reference Range Interpretation Comments cholesterol, serum (test code = 154 mg/dL 085-547 0413-3) [facility] Hospitalalanine aminotransferase (SGPT), zevlf4736-07-39 09:22:00 Test Item Value Reference Range Interpretation Comments alanine aminotransferase (SGPT), serum 6 1/L 0-32 (test code = 1742-6) [facility] Hospitalaspartate aminotransferase (SGOT), sklle6801-31-71 09:22:00 Test Item Value Reference Range Interpretation Comments aspartate aminotransferase (SGOT), 8 1/L 0-40 serum (test code = 1920-8) [facility] Hospitalalkaline phosphatase, uazpl6266-38-39 09:22:00 Test Item Value Reference Range Interpretation Comments alkaline phosphatase, serum (test code 93 1/L 39-117 = 1783-0) [facility]bilirubin, serum, aydma7742-08-17 09:22:00 Test Item Value Reference Range Interpretation Comments bilirubin, serum, total (test code 0.2 mg/dL 0.0-1.2 = 1975-2) [facility]albumin/globulin ratio, nldni6568-37-11 09:22:00 Test Item Value Reference Range Interpretation Comments albumin/globulin ratio, serum (test 1.3 1.2-2.2 code = 1759-0) [facility] Hospitalglobulin, nzqid3373-12-12 09:22:00 Test Item Value Reference Range Interpretation Comments globulin, serum (test code = 2336-6) 3.1 1.5-4.5 [facility] Hospitalalbumin, dqjqg6947-70-69 09:22:00 Test Item Value Reference Range Interpretation Comments albumin, serum (test code = 1751-7) 4.0 g/dL 3.5-5.5 [facility] Healthprotein, total, [id number] 09:22:00 Test Item Value Reference Range Interpretation Comments protein, total, serum (test code = 7.1 g/dL 6.0-8.5 2885-2) [facility] Hospitalcalcium, rwkbx7922-30-58 09:22:00 Test Item Value Reference Range Interpretation Comments calcium, serum (test code = 1999-8) 9.6 mg/dL 8.7-10.2 [facility] Hospitalcarbon dioxide, venous orhqg6007-17-50 09:22:00 Test Item Value Reference Range Interpretation Comments carbon dioxide, venous blood (test 28 mmol/L - code = 7-1) [facility] Hospitalchloride, [id number] 09:22:00 Test Item Value Reference Range Interpretation Comments chloride, serum (test code = 98 mmol/L 96-106 5-0) [facility] Hospitalpotassium, ykupk7823-18-33 09:22:00 Test Item Value Reference Range Interpretation Comments potassium, serum (test code = 4.5 mmol/L 3.5-5.2 2823-3) [facility] Hospitalsodium, rleky4544-97-44 09:22:00 Test Item Value Reference Range Interpretation Comments sodium, serum (test code = 2951-2) 140 mmol/L 134-144 [facility] Hospitalurea nitrogen/creatinine ratio, twase8429-80-71 09:22:00 Test Item Value Reference Range Interpretation Comments urea nitrogen/creatinine ratio, serum 12 9-23 (test code = 3097-3) [facility] HealtheGFR if Vcndcwdi5980-75-25 09:22:00 Test Item Value Reference Range Interpretation Comments eGFR if 111 >59 (test code = 23229-8) mL/min/((173/100).m2) [facility] HospitalEstimated Glomerular Filtration Rate (calc)2018-02-07 09:22:00 Test Item Value Reference Range Interpretation Comments Estimated Glomerular 96 >59 Filtration Rate (calc) mL/min/((173/100).m2 (test code = 49384-4) ) [facility] Healthcreatinine, gvzhm5177-31-82 09:22:00 Test Item Value Reference Range Interpretation Comments creatinine, serum (test code = 0.69 mg/dL 0.57-1.00 2160-0) [facility] Healthurea nitrogen, ifixg3637-56-24 09:22:00 Test Item Value Reference Range Interpretation Comments urea nitrogen, blood (test code = 8 mg/dL 6-24 3094-0) [facility] Hospitalblood glucose, wknpwn3233-40-33 09:22:00 Test Item Value Reference Range Interpretation Comments blood glucose, random (test code = 154 mg/dL 65-99 H 2339-0) [facility] Hospitalimmature granulocytes, percentage of total cells, blood 2018-02-07 09:22:00 Test Item Value Reference Range Interpretation Comments immature granulocytes, percentage of 0 % total cells, blood (test code = 22463-8) [facility] Hospitalbasophil count, rlstheay0942-84-44 09:22:00 Test Item Value Reference Range Interpretation Comments basophil count, absolute (test 0.0 x10E3/uL 0.0-0.2 code = 96686-6) [facility] HospitalEosinophil Absolute Aamir9138-23-25 09:22:00 Test Item Value Reference Range Interpretation Comments Eosinophil Absolute Count (test 0.1 X10E3/UL 0.0-0.4 code = 78373-1) [facility] Hospitalmonocyte count, blood, zeizwlmhd8652-53-16 09:22:00 Test Item Value Reference Range Interpretation Comments monocyte count, blood, automated 0.4 X10E3/UL 0.1-0.9 (test code = 742-7) [facility] Hospitallymphocyte count, blood, oxzeyfwoo9943-12-45 09:22:00 Test Item Value Reference Range Interpretation Comments lymphocyte count, blood, 1.4 X10E3/UL 0.7-3.1 automated (test code = 731-0) [facility] HospitalAbsolute Tsfpdewngqb3631-58-47 09:22:00 Test Item Value Reference Range Interpretation Comments Absolute Neutrophils (test code 3.3 X10E3/UL 1.4-7.0 = 45338-0) [facility] Hospitalbasophils as percent of blood uyuchpxlhm9162-90-70 09:22:00 Test Item Value Reference Range Interpretation Comments basophils as percent of blood 0 % leukocytes (test code = 707-0) [facility] Healtheosinophils as percent of blood vkyrpodnzn3475-25-28 09:22:00 Test Item Value Reference Range Interpretation Comments eosinophils as percent of blood 2 % leukocytes (test code = 713-8) [facility] Healthmonocytes as percent of blood cgtsfheyop7733-51-10 09:22:00 Test Item Value Reference Range Interpretation Comments monocytes as percent of blood 8 % leukocytes (test code = 5905-5) [facility] Hospitallymphocytes as percent of blood jxihrwsogd1751-86-09 09:22:00 Test Item Value Reference Range Interpretation Comments lymphocytes as percent of blood 26 % leukocytes (test code = 736-9) [facility] Hospitalneutrophils as percent of blood zttkwlhtfp5501-15-79 09:22:00 Test Item Value Reference Range Interpretation Comments neutrophils as percent of blood 64 % leukocytes (test code = 770-8) [facility] Hospitalplatelet rrzpz6271-75-76 09:22:00 Test Item Value Reference Range Interpretation Comments platelet count (test code = 194 X10E3/UL 150-379 777-3) [facility] Hospitalred blood cell distribution vlvcs0789-06-27 09:22:00 Test Item Value Reference Range Interpretation Comments red blood cell distribution width 14.1 % 12.3-15.4 (test code = 788-0) [facility] corpuscular hemoglobin concentration, [id number] 09:22:00 Test Item Value Reference Range Interpretation Comments mean corpuscular hemoglobin 33.9 G/DL 31.5-35.7 concentration, RBC (test code = 786-4) [facility] corpuscular hemoglobin, [id number] 09:22:00 Test Item Value Reference Range Interpretation Comments mean corpuscular hemoglobin, RBC 34.2 pg 26.6-33.0 H (test code = 785-6) [facility] corpuscular volume, [id number] 09:22:00 Test Item Value Reference Range Interpretation Comments mean corpuscular volume, RBC (test 101 fL 79-97 H code = 787-2) [facility]hematocrit, nolwd0715-71-30 09:22:00 Test Item Value Reference Range Interpretation Comments hematocrit, blood (test code = 4544-3) 41.3 % 34.0-46.6 [facility]hemoglobin, ozwtp6549-49-59 09:22:00 Test Item Value Reference Range Interpretation Comments hemoglobin, blood (test code = 14.0 g/dL 11.1-15.9 718-7) [facility] Hospitalerythrocyte (RBC) tcbvv1407-15-36 09:22:00 Test Item Value Reference Range Interpretation Comments erythrocyte (RBC) count (test 4.09 X10E6/UL 3.77-5.28 code = 789-8) [facility] Hospitalleukocyte count, gywmq2732-45-01 09:22:00 Test Item Value Reference Range Interpretation Comments leukocyte count, blood (test 5.1 X10E3/UL 3.4-10.8 code = 6690-2) [facility] HospitalCD4/CD8 qttvk1108-11-45 09:22:00 Test Item Value Reference Range Interpretation Comments CD4/CD8 ratio (test code = 69694) 0.85 0.92-3.72 L [facility] HospitalT-suppressor cells (CD8) as percent of blood lymphocytes 2018-02-07 09:22:00 Test Item Value Reference Range Interpretation Comments T-suppressor cells (CD8) as percent of 29.5 % 12.0-35.5 blood lymphocytes (test code = 3517) [facility] Hospitalabsolute [id number] 09:22:00 Test Item Value Reference Range Interpretation Comments absolute CD8 (test code = 78503) 413 109-897 [facility] HospitalT-helper cells (CD4) as percent of blood lymphocytes 2018-02-07 09:22:00 Test Item Value Reference Range Interpretation Comments T-helper cells (CD4) as percent of 25.0 % 30.8-58.5 L blood lymphocytes (test code = 8123-2) [facility] HospitalT-helper cells (CD4) gupzr4628-28-48 09:22:00 Test Item Value Reference Range Interpretation Comments T-helper cells (CD4) count (test code 350 /UL 359-1519 L = 74475-1) [facility] Hospitalrapid plasma reagin antibody, odwkm2471-29-86 10:27:00 Test Item Value Reference Range Interpretation Comments rapid plasma reagin antibody, Non Reactive Non Reactive serum (test code = 5291-0) [facility] HospitalHIV-1RNA, serum, by PCR, rpellmcqkwjj4066-80-64 10:27:00 Test Item Value Reference Range Interpretation Comments HIV-1RNA, serum, by PCR, quantitative 50 /mL (test code = 14449) [facility] HospitalLDL cholesterol, smood5763-02-89 10:27:00 Test Item Value Reference Range Interpretation Comments LDL cholesterol, serum (test code = 63 mg/dL 0-99 2088-1) [facility]very low density ovdierjjzano3977-67-22 10:27:00 Test Item Value Reference Range Interpretation Comments very low density lipoproteins (test 32 mg/dL 5-40 code = 2091-7) [facility] HospitalHDL cholesterol, hirxs2342-16-12 10:27:00 Test Item Value Reference Range Interpretation Comments HDL cholesterol, serum (test code = 47 mg/dL >39 2084-9) [facility]triglyceride, serum, qgcucup9365-00-89 10:27:00 Test Item Value Reference Range Interpretation Comments triglyceride, serum, fasting (test 162 mg/dL 0-149 H code = 2571-8) [facility]cholesterol, sdozv2194-06-49 10:27:00 Test Item Value Reference Range Interpretation Comments cholesterol, serum (test code = 142 mg/dL 988-837 4887-3) [facility] Hospitalalanine aminotransferase (SGPT), phjzm7772-83-91 10:27:00 Test Item Value Reference Range Interpretation Comments alanine aminotransferase (SGPT), serum 9 1/L 0-32 (test code = 1742-6) [facility] Hospitalaspartate aminotransferase (SGOT), viwlp6057-25-94 10:27:00 Test Item Value Reference Range Interpretation Comments aspartate aminotransferase (SGOT), 9 1/L 0-40 serum (test code = 1920-8) [facility] Hospitalalkaline phosphatase, nfcfs4522-32-54 10:27:00 Test Item Value Reference Range Interpretation Comments alkaline phosphatase, serum (test 100 1/L 39-117 code = 1783-0) [facility], kuqvu9380-92-67 10:27:00 Test Item Value Reference Range Interpretation Comments bilirubin, serum, total (test code 0.3 mg/dL 0.0-1.2 = 1974-2) [facility] Healthalbumin/globulin ratio, wcqtw6459-72-62 10:27:00 Test Item Value Reference Range Interpretation Comments albumin/globulin ratio, serum (test 1.4 1.2-2.2 code = 1759-0) [facility] Healthglobulin, cbwti3564-37-93 10:27:00 Test Item Value Reference Range Interpretation Comments globulin, serum (test code = 2336-6) 2.9 1.5-4.5 [facility] Healthalbumin, ovpmb8263-10-49 10:27:00 Test Item Value Reference Range Interpretation Comments albumin, serum (test code = 1751-7) 4.2 g/dL 3.5-5.5 [facility] Healthprotein, total, [id number] 10:27:00 Test Item Value Reference Range Interpretation Comments protein, total, serum (test code = 7.1 g/dL 6.0-8.5 2885-2) [facility] Healthcalcium, bwxia8173-91-83 10:27:00 Test Item Value Reference Range Interpretation Comments calcium, serum (test code = 1999-8) 9.6 mg/dL 8.7-10.2 [facility], venous [id number] 10:27:00 Test Item Value Reference Range Interpretation Comments carbon dioxide, venous blood (test 27 mmol/L 18-29 code = 2026-1) [facility] Healthchloride, [id number] 10:27:00 Test Item Value Reference Range Interpretation Comments chloride, serum (test code = 96 mmol/L 96-106 5-0) [facility] Healthpotassium, [id number] 10:27:00 Test Item Value Reference Range Interpretation Comments potassium, serum (test code = 5.1 mmol/L 3.5-5.2 2823-3) [facility]alsodium, [id number] 10:27:00 Test Item Value Reference Range Interpretation Comments sodium, serum (test code = 2951-2) 138 mmol/L 134-144 [facility]/creatinine ratio, [id number] 10:27:00 Test Item Value Reference Range Interpretation Comments urea nitrogen/creatinine ratio, serum 14 9-23 (test code = 3097-3) [facility] HealtheGFR if Okghzfdz2469-48-72 10:27:00 Test Item Value Reference Range Interpretation Comments eGFR if 86 >59 (test code = 20483-6) mL/min/((173/100).m2) [facility]Estimated Glomerular Filtration Rate (calc)2017-10-13 10:27:00 Test Item Value Reference Range Interpretation Comments Estimated Glomerular 74 >59 Filtration Rate (calc) mL/min/((173/100).m2 (test code = 93747-3) ) [facility]creatinine, [id number] 10:27:00 Test Item Value Reference Range Interpretation Comments creatinine, serum (test code = 0.87 mg/dL 0.57-1.00 2160-0) [facility]ure[facility] nitrogen, dgljd2592-77-57 10:27:00 Test Item Value Reference Range Interpretation Comments urea nitrogen, blood (test code = 12 mg/dL 6-24 3094-0) [facility]blood glucose, psssjr4099-08-05 10:27:00 Test Item Value Reference Range Interpretation Comments blood glucose, random (test code = 119 mg/dL 65-99 H 2339-0) [facility] Hospitalimmature granulocytes, percentage of total cells, blood 2017-10-13 10:27:00 Test Item Value Reference Range Interpretation Comments immature granulocytes, percentage of 0 % total cells, blood (test code = 31921-6) [facility]basophil count, rviheedd2630-92-05 10:27:00 Test Item Value Reference Range Interpretation Comments basophil count, absolute (test 0.0 x10E3/uL 0.0-0.2 code = 42085-5) [facility] HospitalEosinophil Absolute Pmhrj4118-46-69 10:27:00 Test Item Value Reference Range Interpretation Comments Eosinophil Absolute Count (test 0.1 X10E3/UL 0.0-0.4 code = 71811-0) [facility]monocyte count, blood, pmrmwghfl4516-98-23 10:27:00 Test Item Value Reference Range Interpretation Comments monocyte count, blood, automated 0.5 X10E3/UL 0.1-0.9 (test code = 742-7) [facility] Hospitallymphocyte count, blood, znekygirt6874-67-35 10:27:00 Test Item Value Reference Range Interpretation Comments lymphocyte count, blood, 1.7 X10E3/UL 0.7-3.1 automated (test code = 731-0) [facility]Absolute Gmroqtqgbye9210-06-99 10:27:00 Test Item Value Reference Range Interpretation Comments Absolute Neutrophils (test code 5.4 X10E3/UL 1.4-7.0 = 96142-9) [facility]basophils as percent of blood gzkuodkybh1635-66-53 10:27:00 Test Item Value Reference Range Interpretation Comments basophils as percent of blood 0 % leukocytes (test code = 707-0) [facility]aleosinophils as percent of blood heuaafazpz3318-14-70 10:27:00 Test Item Value Reference Range Interpretation Comments eosinophils as percent of blood 1 % leukocytes (test code = 713-8) [facility]monocytes as percent of blood ypiewqfryq4177-82-41 10:27:00 Test Item Value Reference Range Interpretation Comments monocytes as percent of blood 7 % leukocytes (test code = 5905-5) [facility] Hospitallymphocytes as percent of blood oelssxtylq6659-60-72 10:27:00 Test Item Value Reference Range Interpretation Comments lymphocytes as percent of blood 22 % leukocytes (test code = 736-9) [facility] Hospitalneutrophils as percent of blood dekphfebia4845-84-60 10:27:00 Test Item Value Reference Range Interpretation Comments neutrophils as percent of blood 70 % leukocytes (test code = 770-8) [facility] Hospitalplatelet qewqm8959-57-67 10:27:00 Test Item Value Reference Range Interpretation Comments platelet count (test code = 193 X10E3/UL 150-379 777-3) [facility]red blood cell distribution oseyq9690-62-77 10:27:00 Test Item Value Reference Range Interpretation Comments red blood cell distribution width 13.7 % 12.3-15.4 (test code = 788-0) [facility] Hospitalmean corpuscular hemoglobin concentration, [id number] 10:27:00 Test Item Value Reference Range Interpretation Comments mean corpuscular hemoglobin 35.0 G/DL 31.5-35.7 concentration, RBC (test code = 786-4) [facility]mean corpuscular hemoglobin, [id number] 10:27:00 Test Item Value Reference Range Interpretation Comments mean corpuscular hemoglobin, RBC 35.6 pg 26.6-33.0 H (test code = 785-6) [facility] Hospitalmean corpuscular volume, [id number] 10:27:00 Test Item Value Reference Range Interpretation Comments mean corpuscular volume, RBC (test 102 fL 79-97 H code = 787-2) [facility] Hospitalhematocrit, chvuu5612-90-75 10:27:00 Test Item Value Reference Range Interpretation Comments hematocrit, blood (test code = 4544-3) 43.7 % 34.0-46.6 [facility]hemoglobin, pbbpy4881-02-49 10:27:00 Test Item Value Reference Range Interpretation Comments hemoglobin, blood (test code = 15.3 g/dL 11.1-15.9 718-7) [facility] Hospitalerythrocyte (RBC) vbwcx9951-17-05 10:27:00 Test Item Value Reference Range Interpretation Comments erythrocyte (RBC) count (test 4.30 X10E6/UL 3.77-5.28 code = 789-8) [facility] Hospitalleukocyte count, [id number] 10:27:00 Test Item Value Reference Range Interpretation Comments leukocyte count, blood (test 7.7 X10E3/UL 3.4-10.8 code = 6690-2) [facility] HospitalCD4/CD8 rubwk7793-20-68 10:27:00 Test Item Value Reference Range Interpretation Comments CD4/CD8 ratio (test code = 17389) 0.70 0.92-3.72 L [facility] HospitalT-suppressor cells (CD8) as percent of blood lymphocytes 2017-10-13 10:27:00 Test Item Value Reference Range Interpretation Comments T-suppressor cells (CD8) as percent of 27.8 % 12.0-35.5 blood lymphocytes (test code = 3517) [facility]absolute [id number] 10:27:00 Test Item Value Reference Range Interpretation Comments absolute CD8 (test code = 52783) 473 109-897 [facility] HospitalT-helper cells (CD4) as percent of blood lymphocytes 2017-10-13 10:27:00 Test Item Value Reference Range Interpretation Comments T-helper cells (CD4) as percent of 19.4 % 30.8-58.5 L blood lymphocytes (test code = 8123-2) [facility] HospitalT-helper cells (CD4) vdtpu9772-63-37 10:27:00 Test Item Value Reference Range Interpretation Comments T-helper cells (CD4) count (test code 330 /UL 359-1519 L = 94930-2) [facility] Hospitalrapid plasma reagin antibody, vichr8646-05-12 13:13:00 Test Item Value Reference Range Interpretation Comments rapid plasma reagin antibody, Non Reactive Non Reactive serum (test code = 5291-0) [facility] HospitalHIV-1RNA, serum, by PCR, dwkeobemqtdq3088-27-58 13:13:00 Test Item Value Reference Range Interpretation Comments HIV-1RNA, serum, by PCR, 13981 /mL quantitative (test code = 58244) [facility] HospitalLDL cholesterol, gyjwz3958-25-52 13:13:00 Test Item Value Reference Range Interpretation Comments LDL cholesterol, serum (test code = 38 mg/dL 0-99 2088-1) [facility] Hospitalvery low density apckciubmkgm2209-92-93 13:13:00 Test Item Value Reference Range Interpretation Comments very low density lipoproteins (test 24 mg/dL 5-40 code = 1-7) [facility] HospitalHDL cholesterol, kkdqy5917-62-43 13:13:00 Test Item Value Reference Range Interpretation Comments HDL cholesterol, serum (test code = 36 mg/dL >39 L 5-9) [facility] Hospitaltriglyceride, serum, lcoxrin8618-55-15 13:13:00 Test Item Value Reference Range Interpretation Comments triglyceride, serum, fasting (test 119 mg/dL 0-149 code = 2571-8) [facility]cholesterol, zruvq0929-61-83 13:13:00 Test Item Value Reference Range Interpretation Comments cholesterol, serum (test code = 98 mg/dL 100-199 L 3-3) [facility] Hospitalalanine aminotransferase (SGPT), urmzu6708-53-04 13:13:00 Test Item Value Reference Range Interpretation Comments alanine aminotransferase (SGPT), serum 19 1/L 0-32 (test code = 1742-6) [facility] Hospitalaspartate aminotransferase (SGOT), xydsz3691-51-14 13:13:00 Test Item Value Reference Range Interpretation Comments aspartate aminotransferase (SGOT), 18 1/L 0-40 serum (test code = 1920-8) [facility] Hospitalalkaline phosphatase, [id number] 13:13:00 Test Item Value Reference Range Interpretation Comments alkaline phosphatase, serum (test 110 1/L 39-117 code = 1783-0) [facility] Healthbilirubin, serum, [id number] 13:13:00 Test Item Value Reference Range Interpretation Comments bilirubin, serum, total (test code 0.3 mg/dL 0.0-1.2 = 1975-2) [facility] Healthalbumin/globulin ratio, mzsza8984-95-30 13:13:00 Test Item Value Reference Range Interpretation Comments albumin/globulin ratio, serum (test 1.4 1.2-2.2 code = 1759-0) [facility] Healthglobulin, ekhva3238-60-72 13:13:00 Test Item Value Reference Range Interpretation Comments globulin, serum (test code = 2336-6) 2.7 1.5-4.5 [facility] Healthalbumin, [id number] 13:13:00 Test Item Value Reference Range Interpretation Comments albumin, serum (test code = 1751-7) 3.8 g/dL 3.5-5.5 [facility] Healthprotein, total, vtqig6188-26-75 13:13:00 Test Item Value Reference Range Interpretation Comments protein, total, serum (test code = 6.5 g/dL 6.0-8.5 2885-2) [facility]calcium, numnk9514-09-22 13:13:00 Test Item Value Reference Range Interpretation Comments calcium, serum (test code = 2000-8) 8.9 mg/dL 8.7-10.2 [facility] Hospitalcarbon dioxide, venous tgmel6381-38-06 13:13:00 Test Item Value Reference Range Interpretation Comments carbon dioxide, venous blood (test 24 mmol/L 18-29 code = 7-1) [facility] Hospitalchloride, pmkrw1584-53-01 13:13:00 Test Item Value Reference Range Interpretation Comments chloride, serum (test code = 100 mmol/L 96-106 2075-0) [facility] Healthpotassium, cryqk9310-15-99 13:13:00 Test Item Value Reference Range Interpretation Comments potassium, serum (test code = 4.1 mmol/L 3.5-5.2 2823-3) [facility] Healthsodium, jnhmi6109-82-05 13:13:00 Test Item Value Reference Range Interpretation Comments sodium, serum (test code = 2951-2) 142 mmol/L 134-144 [facility]urea nitrogen/creatinine ratio, cqlzq5042-44-80 13:13:00 Test Item Value Reference Range Interpretation Comments urea nitrogen/creatinine ratio, serum 13 9-23 (test code = 3097-3) [facility] HealtheGFR if Gklqkkqt8372-06-89 13:13:00 Test Item Value Reference Range Interpretation Comments eGFR if 102 >59 (test code = 27007-1) mL/min/((173/100).m2) [facility] HospitalEstimated Glomerular Filtration Rate (calc)2017-05-25 13:13:00 Test Item Value Reference Range Interpretation Comments Estimated Glomerular 89 >59 Filtration Rate (calc) mL/min/((173/100).m2 (test code = 26590-5) ) [facility]creatinine, apizz4688-28-11 13:13:00 Test Item Value Reference Range Interpretation Comments creatinine, serum (test code = 0.75 mg/dL 0.57-1.00 2160-0) [facility]urea nitrogen, qfkra3625-13-33 13:13:00 Test Item Value Reference Range Interpretation Comments urea nitrogen, blood (test code = 10 mg/dL 6-24 3094-0) [facility] Hospitalblood glucose, ilzumr8675-63-62 13:13:00 Test Item Value Reference Range Interpretation Comments blood glucose, random (test code = 123 mg/dL 65-99 H 2339-0) [facility] Hospitalimmature granulocytes, percentage of total cells, blood 2017-05-25 13:13:00 Test Item Value Reference Range Interpretation Comments immature granulocytes, percentage of 0 % total cells, blood (test code = 22794-2) [facility] Hospitalbasophil count, sjllobzm3758-19-55 13:13:00 Test Item Value Reference Range Interpretation Comments basophil count, absolute (test 0.0 x10E3/uL 0.0-0.2 code = 61000-9) [facility] HealthEosinophil Absolute Oujwg4177-21-13 13:13:00 Test Item Value Reference Range Interpretation Comments Eosinophil Absolute Count (test 0.1 X10E3/UL 0.0-0.4 code = 05959-2) [facility] Healthmonocyte count, blood, xwmdcbpme9262-39-60 13:13:00 Test Item Value Reference Range Interpretation Comments monocyte count, blood, automated 0.6 X10E3/UL 0.1-0.9 (test code = 742-7) [facility]allymphocyte count, blood, pwxqpkckg4910-98-40 13:13:00 Test Item Value Reference Range Interpretation Comments lymphocyte count, blood, 0.9 X10E3/UL 0.7-3.1 automated (test code = 731-0) [facility]Absolute Lvvwdteoczr9960-40-74 13:13:00 Test Item Value Reference Range Interpretation Comments Absolute Neutrophils (test code 3.6 X10E3/UL 1.4-7.0 = 02791-5) [facility] Healthbasophils as percent of blood ntlcdynhou1366-56-89 13:13:00 Test Item Value Reference Range Interpretation Comments basophils as percent of blood 0 % leukocytes (test code = 707-0) [facility] Healtheosinophils as percent of blood qbvufowtla6704-11-71 13:13:00 Test Item Value Reference Range Interpretation Comments eosinophils as percent of blood 2 % leukocytes (test code = 713-8) [facility] Healthmonocytes as percent of blood wcfppglptz0904-75-89 13:13:00 Test Item Value Reference Range Interpretation Comments monocytes as percent of blood 11 % leukocytes (test code = 5905-5) [facility]allymphocytes as percent of blood noguedawqi2652-83-90 13:13:00 Test Item Value Reference Range Interpretation Comments lymphocytes as percent of blood 17 % leukocytes (test code = 736-9) [facility] Hospitalneutrophils as percent of blood qpmuibvqvz6474-64-31 13:13:00 Test Item Value Reference Range Interpretation Comments neutrophils as percent of blood 70 % leukocytes (test code = 770-8) [facility] Hospitalplatelet ffmdp8650-17-59 13:13:00 Test Item Value Reference Range Interpretation Comments platelet count (test code = 159 X10E3/UL 150-379 777-3) [facility] Hospitalred blood cell distribution faqlx7248-29-34 13:13:00 Test Item Value Reference Range Interpretation Comments red blood cell distribution width 12.4 % 12.3-15.4 (test code = 788-0) [facility] corpuscular hemoglobin concentration, [id number] 13:13:00 Test Item Value Reference Range Interpretation Comments mean corpuscular hemoglobin 35.4 G/DL 31.5-35.7 concentration, RBC (test code = 786-4) [facility] corpuscular hemoglobin, JCW0701-03-75 13:13:00 Test Item Value Reference Range Interpretation Comments mean corpuscular hemoglobin, RBC 35.0 pg 26.6-33.0 H (test code = 785-6) [facility] corpuscular volume, [id number] 13:13:00 Test Item Value Reference Range Interpretation Comments mean corpuscular volume, RBC (test code 99 fL 79-97 H = 787-2) [facility]hematocrit, rubuq7829-76-93 13:13:00 Test Item Value Reference Range Interpretation Comments hematocrit, blood (test code = 4544-3) 40.4 % 34.0-46.6 [facility]hemoglobin, uurus7811-04-19 13:13:00 Test Item Value Reference Range Interpretation Comments hemoglobin, blood (test code = 14.3 g/dL 11.1-15.9 718-7) [facility] Hospitalerythrocyte (RBC) cmgej7047-64-84 13:13:00 Test Item Value Reference Range Interpretation Comments erythrocyte (RBC) count (test 4.09 X10E6/UL 3.77-5.28 code = 789-8) [facility]leukocyte count, yyyfc5604-87-30 13:13:00 Test Item Value Reference Range Interpretation Comments leukocyte count, blood (test 5.1 X10E3/UL 3.4-10.8 code = 6690-2) [facility] HospitalCD4/CD8 khfcz1652-21-72 13:13:00 Test Item Value Reference Range Interpretation Comments CD4/CD8 ratio (test code = 68227) 0.51 0.92-3.72 L [facility] HospitalT-suppressor cells (CD8) as percent of blood lymphocytes 2017-05-25 13:13:00 Test Item Value Reference Range Interpretation Comments T-suppressor cells (CD8) as percent of 30.7 % 12.0-35.5 blood lymphocytes (test code = 3517) [facility]absolute [id number] 13:13:00 Test Item Value Reference Range Interpretation Comments absolute CD8 (test code = 70773) 276 109-897 [facility]T-helper cells (CD4) as percent of blood lymphocytes 2017-05-25 13:13:00 Test Item Value Reference Range Interpretation Comments T-helper cells (CD4) as percent of 15.7 % 30.8-58.5 L blood lymphocytes (test code = 8123-2) [facility] HospitalT-helper cells (CD4) jjwix0355-99-47 13:13:00 Test Item Value Reference Range Interpretation Comments T-helper cells (CD4) count (test code 141 /UL 359-1519 L = 84306-5) [facility] Hospitalrapid plasma reagin antibody, jqhba7730-29-86 09:12:00 Test Item Value Reference Range Interpretation Comments rapid plasma reagin antibody, Non Reactive Non Reactive serum (test code = 5291-0) [facility] HospitalHIV-1RNA, serum, by PCR, argdeukbzxei9093-74-71 09:12:00 Test Item Value Reference Range Interpretation Comments HIV-1RNA, serum, by PCR, <20 copies/mL quantitative (test code = 13527) [facility]alanine aminotransferase (SGPT), [id number] 09:12:00 Test Item Value Reference Range Interpretation Comments alanine aminotransferase (SGPT), serum 12 1/L 0-32 (test code = 1742-6) [facility] Hospitalaspartate aminotransferase (SGOT), smwwx1962-39-51 09:12:00 Test Item Value Reference Range Interpretation Comments aspartate aminotransferase (SGOT), 12 1/L 0-40 serum (test code = 1920-8) [facility]alkaline phosphatase, jsrmk4844-59-77 09:12:00 Test Item Value Reference Range Interpretation Comments alkaline phosphatase, serum (test 146 1/L 39-117 H code = 1783-0) [facility] Healthbilirubin, serum, pxnsv2044-28-07 09:12:00 Test Item Value Reference Range Interpretation Comments bilirubin, serum, total (test code 0.3 mg/dL 0.0-1.2 = 1975-2) [facility] Healthalbumin/globulin ratio, lypsd6874-52-05 09:12:00 Test Item Value Reference Range Interpretation Comments albumin/globulin ratio, serum (test 1.6 1.2-2.2 code = 1759-0) [facility] Healthglobulin, ileau3844-70-13 09:12:00 Test Item Value Reference Range Interpretation Comments globulin, serum (test code = 2336-6) 2.5 1.5-4.5 [facility] Healthalbumin, clkae4507-87-19 09:12:00 Test Item Value Reference Range Interpretation Comments albumin, serum (test code = 1751-7) 3.9 g/dL 3.5-5.5 [facility] Healthprotein, total, vavsu8900-38-19 09:12:00 Test Item Value Reference Range Interpretation Comments protein, total, serum (test code = 6.4 g/dL 6.0-8.5 2885-2) [facility]calcium, vdgqw8683-23-77 09:12:00 Test Item Value Reference Range Interpretation Comments calcium, serum (test code = 1999-8) 9.0 mg/dL 8.7-10.2 [facility]carbon dioxide, venous ilmak8141-02-80 09:12:00 Test Item Value Reference Range Interpretation Comments carbon dioxide, venous blood (test 24 mmol/L 18-29 code = 2026-1) [facility] Hospitalchloride, hotmw8863-43-54 09:12:00 Test Item Value Reference Range Interpretation Comments chloride, serum (test code = 95 mmol/L 96-106 L 2074-0) [facility]potassium, puysl2152-47-76 09:12:00 Test Item Value Reference Range Interpretation Comments potassium, serum (test code = 4.5 mmol/L 3.5-5.2 2823-3) [facility]alsodium, ulzje1579-65-40 09:12:00 Test Item Value Reference Range Interpretation Comments sodium, serum (test code = 2951-2) 135 mmol/L 134-144 [facility]urea nitrogen/creatinine ratio, mwgdj3213-61-71 09:12:00 Test Item Value Reference Range Interpretation Comments urea nitrogen/creatinine ratio, serum 10 9-23 (test code = 3097-3) [facility] HospitaleGFR if Jrtmytjl8941-40-09 09:12:00 Test Item Value Reference Range Interpretation Comments eGFR if 106 >59 (test code = 20214-0) mL/min/((173/100).m2) [facility] HospitalEstimated Glomerular Filtration Rate (calc)2017-03-01 09:12:00 Test Item Value Reference Range Interpretation Comments Estimated Glomerular 92 >59 Filtration Rate (calc) mL/min/((173/100).m2 (test code = 44486-9) ) [facility]creatinine, jygyw6762-09-90 09:12:00 Test Item Value Reference Range Interpretation Comments creatinine, serum (test code = 0.73 mg/dL 0.57-1.00 2160-0) [facility]urea nitrogen, nrlzh9452-93-53 09:12:00 Test Item Value Reference Range Interpretation Comments urea nitrogen, blood (test code = 7 mg/dL 6-24 3094-0) [facility]blood glucose, xxgcjw9803-49-04 09:12:00 Test Item Value Reference Range Interpretation Comments blood glucose, random (test code = 130 mg/dL 65-99 H 2339-0) [facility] Hospitalimmature granulocytes, percentage of total cells, blood 2017-03-01 09:12:00 Test Item Value Reference Range Interpretation Comments immature granulocytes, percentage of 0 % total cells, blood (test code = 61875-4) [facility]basophil count, rkgfskze7554-57-78 09:12:00 Test Item Value Reference Range Interpretation Comments basophil count, absolute (test 0.0 x10E3/uL 0.0-0.2 code = 32628-7) [facility] HospitalEosinophil Absolute Bxrax9244-28-05 09:12:00 Test Item Value Reference Range Interpretation Comments Eosinophil Absolute Count (test 0.1 X10E3/UL 0.0-0.4 code = 61996-7) [facility] Healthmonocyte count, blood, lskfwxwvn4458-74-61 09:12:00 Test Item Value Reference Range Interpretation Comments monocyte count, blood, automated 0.4 X10E3/UL 0.1-0.9 (test code = 742-7) [facility]allymphocyte count, blood, kbeeilabt5435-25-37 09:12:00 Test Item Value Reference Range Interpretation Comments lymphocyte count, blood, 1.1 X10E3/UL 0.7-3.1 automated (test code = 731-0) [facility]Absolute Jyymriugqsl4935-84-21 09:12:00 Test Item Value Reference Range Interpretation Comments Absolute Neutrophils (test code 3.7 X10E3/UL 1.4-7.0 = 10280-7) [facility]basophils as percent of blood fhdxxfdmfp0348-48-26 09:12:00 Test Item Value Reference Range Interpretation Comments basophils as percent of blood 0 % leukocytes (test code = 707-0) [facility]aleosinophils as percent of blood efcpfamakr3804-64-26 09:12:00 Test Item Value Reference Range Interpretation Comments eosinophils as percent of blood 3 % leukocytes (test code = 713-8) [facility] Healthmonocytes as percent of blood xlgllxyigz1886-93-33 09:12:00 Test Item Value Reference Range Interpretation Comments monocytes as percent of blood 7 % leukocytes (test code = 5905-5) [facility]allymphocytes as percent of blood ozfiuebpph8141-81-41 09:12:00 Test Item Value Reference Range Interpretation Comments lymphocytes as percent of blood 21 % leukocytes (test code = 736-9) [facility] Hospitalneutrophils as percent of blood xrdgmkaavl3269-43-19 09:12:00 Test Item Value Reference Range Interpretation Comments neutrophils as percent of blood 69 % leukocytes (test code = 770-8) [facility] Hospitalplatelet zujfg6176-40-55 09:12:00 Test Item Value Reference Range Interpretation Comments platelet count (test code = 233 X10E3/UL 150-379 777-3) [facility]red blood cell distribution pmtil2603-69-82 09:12:00 Test Item Value Reference Range Interpretation Comments red blood cell distribution width 13.1 % 12.3-15.4 (test code = 788-0) [facility] corpuscular hemoglobin concentration, [id number] 09:12:00 Test Item Value Reference Range Interpretation Comments mean corpuscular hemoglobin 34.4 G/DL 31.5-35.7 concentration, RBC (test code = 786-4) [facility], [id number] 09:12:00 Test Item Value Reference Range Interpretation Comments mean corpuscular hemoglobin, RBC 35.0 pg 26.6-33.0 H (test code = 785-6) [facility] corpuscular volume, [id number] 09:12:00 Test Item Value Reference Range Interpretation Comments mean corpuscular volume, RBC (test 102 fL 79-97 H code = 787-2) [facility], [id number] 09:12:00 Test Item Value Reference Range Interpretation Comments hematocrit, blood (test code = 4544-3) 42.2 % 34.0-46.6 [facility]hem[facility], [id number] 09:12:00 Test Item Value Reference Range Interpretation Comments hemoglobin, blood (test code = 14.5 g/dL 11.1-15.9 718-7) [facility]erythrocyte (RBC) [id number] 09:12:00 Test Item Value Reference Range Interpretation Comments erythrocyte (RBC) count (test 4.14 X10E6/UL 3.77-5.28 code = 789-8) [facility]leukocyte count, [id number] 09:12:00 Test Item Value Reference Range Interpretation Comments leukocyte count, blood (test 5.3 X10E3/UL 3.4-10.8 code = 6690-2) [facility] HospitalCD4/CD8 [id number] 09:12:00 Test Item Value Reference Range Interpretation Comments CD4/CD8 ratio (test code = 78389) 0.68 0.92-3.72 L [facility] HospitalT-suppressor cells (CD8) as percent of blood lymphocytes 2017-03-01 09:12:00 Test Item Value Reference Range Interpretation Comments T-suppressor cells (CD8) as percent of 27.9 % 12.0-35.5 blood lymphocytes (test code = 3517) [facility]absolute [id number] 09:12:00 Test Item Value Reference Range Interpretation Comments absolute CD8 (test code = 85481) 307 109-897 [facility]T-helper cells (CD4) as percent of blood lymphocytes 2017-03-01 09:12:00 Test Item Value Reference Range Interpretation Comments T-helper cells (CD4) as percent of 19.0 % 30.8-58.5 L blood lymphocytes (test code = 8123-2) [facility] HospitalT-helper cells (CD4) [id number] 09:12:00 Test Item Value Reference Range Interpretation Comments T-helper cells (CD4) count (test code 209 /UL 359-1519 L = 67483-1) [facility] HospitalNeisseria gonorrhoeae DNA [id number] 11:00:00 Test Item Value Reference Range Interpretation Comments Neisseria gonorrhoeae DNA probe Negative Negative (test code = 30133-4) [facility]chlamydia DNA wrlhg8375-03-93 11:00:00 Test Item Value Reference Range Interpretation Comments chlamydia DNA probe (test code = Negative Negative 06163-7) [facility] HospitalQuantiferon Gold TB blood test for tuberculosis screening 2016-10-19 08:07:00 Test Item Value Reference Range Interpretation Comments Quantiferon Gold TB blood test for Negative Negative tuberculosis screening (test code = 14763-9) [facility] Hospitalrapid plasma reagin antibody, [id number] 08:07:00 Test Item Value Reference Range Interpretation Comments rapid plasma reagin antibody, Non Reactive Non Reactive serum (test code = 5291-0) [facility] HospitalHIV-1RNA, serum, by PCR, kcqqosmcddnr3092-35-05 08:07:00 Test Item Value Reference Range Interpretation Comments HIV-1RNA, serum, by PCR, <20 copies/mL quantitative (test code = 26717) [facility] HospitalLDL cholesterol, [id number] 08:07:00 Test Item Value Reference Range Interpretation Comments LDL cholesterol, serum (test code = 53 mg/dL 0-99 2088-1) [facility] Hospitalvery low density hmsltcjaplvj1770-07-98 08:07:00 Test Item Value Reference Range Interpretation Comments very low density lipoproteins (test 26 mg/dL 5-40 code = 1-7) [facility] HospitalHDL cholesterol, [id number] 08:07:00 Test Item Value Reference Range Interpretation Comments HDL cholesterol, serum (test code = 43 mg/dL >39 2084-9) [facility] Hospitaltriglyceride, serum, [id number] 08:07:00 Test Item Value Reference Range Interpretation Comments triglyceride, serum, fasting (test 128 mg/dL 0-149 code = 2571-8) [facility]cholesterol, [id number] 08:07:00 Test Item Value Reference Range Interpretation Comments cholesterol, serum (test code = 122 mg/dL 998-624 2994-3) [facility] Hospitalalanine aminotransferase (SGPT), [id number] 08:07:00 Test Item Value Reference Range Interpretation Comments alanine aminotransferase (SGPT), serum 18 1/L 0-32 (test code = 1742-6) [facility] Hospitalaspartate aminotransferase (SGOT), yzcqu5511-01-45 08:07:00 Test Item Value Reference Range Interpretation Comments aspartate aminotransferase (SGOT), 13 1/L 0-40 serum (test code = 1920-8) [facility] Hospitalalkaline phosphatase, yvvjc6879-83-20 08:07:00 Test Item Value Reference Range Interpretation Comments alkaline phosphatase, serum (test 156 1/L 39-117 H code = 1783-0) [facility] Hospitalbilirubin, serum, [id number] 08:07:00 Test Item Value Reference Range Interpretation Comments bilirubin, serum, total (test code 0.4 mg/dL 0.0-1.2 = 1974-2) [facility] Hospitalalbumin/globulin ratio, [id number] 08:07:00 Test Item Value Reference Range Interpretation Comments albumin/globulin ratio, serum (test 1.8 1.1-2.5 code = 1759-0) [facility] Hospitalglobulin, [id number] 08:07:00 Test Item Value Reference Range Interpretation Comments globulin, serum (test code = 2336-6) 2.4 1.5-4.5 [facility] Healthalbumin, [id number] 08:07:00 Test Item Value Reference Range Interpretation Comments albumin, serum (test code = 1751-7) 4.3 g/dL 3.5-5.5 [facility] Hospitalprotein, total, [id number] 08:07:00 Test Item Value Reference Range Interpretation Comments protein, total, serum (test code = 6.7 g/dL 6.0-8.5 2885-2) [facility] Hospitalcalcium, [id number] 08:07:00 Test Item Value Reference Range Interpretation Comments calcium, serum (test code = 1999-8) 9.4 mg/dL 8.7-10.2 [facility] Hospitalcarbon dioxide, venous ocmje1778-82-25 08:07:00 Test Item Value Reference Range Interpretation Comments carbon dioxide, venous blood (test 28 mmol/L 18-29 code = 7-1) [facility] Hospitalchloride, dbyrx4176-15-51 08:07:00 Test Item Value Reference Range Interpretation Comments chloride, serum (test code = 93 mmol/L 97-106 L 5-0) [facility] Hospitalpotassium, [id number] 08:07:00 Test Item Value Reference Range Interpretation Comments potassium, serum (test code = 4.5 mmol/L 3.5-5.2 2823-3) [facility] Hospitalsodium, [id number] 08:07:00 Test Item Value Reference Range Interpretation Comments sodium, serum (test code = 2951-2) 136 mmol/L 136-144 [facility] Hospitalurea nitrogen/creatinine ratio, [id number] 08:07:00 Test Item Value Reference Range Interpretation Comments urea nitrogen/creatinine ratio, serum 10 9-23 (test code = 3097-3) [facility] HealtheGFR if Vtrumklo1964-04-04 08:07:00 Test Item Value Reference Range Interpretation Comments eGFR if 100 >59 (test code = 22709-2) mL/min/((173/100).m2) [facility] HospitalEstimated Glomerular Filtration Rate (calc)2016-10-19 08:07:00 Test Item Value Reference Range Interpretation Comments Estimated Glomerular 87 >59 Filtration Rate (calc) mL/min/((173/100).m2 (test code = 56665-6) ) [facility] Healthcreatinine, [id number] 08:07:00 Test Item Value Reference Range Interpretation Comments creatinine, serum (test code = 0.77 mg/dL 0.57-1.00 2160-0) [facility] Hospitalurea nitrogen, [id number] 08:07:00 Test Item Value Reference Range Interpretation Comments urea nitrogen, blood (test code = 8 mg/dL 6-24 3094-0) [facility] Hospitalblood glucose, [id number] 08:07:00 Test Item Value Reference Range Interpretation Comments blood glucose, random (test code = 152 mg/dL 65-99 H 2339-0) [facility] Hospitalimmature granulocytes, percentage of total cells, blood 2016-10-19 08:07:00 Test Item Value Reference Range Interpretation Comments immature granulocytes, percentage of 0 % total cells, blood (test code = 48898-1) [facility] Hospitalbasophil count, nernyuxr0960-10-72 08:07:00 Test Item Value Reference Range Interpretation Comments basophil count, absolute (test 0.0 x10E3/uL 0.0-0.2 code = 31459-8) [facility] HospitalEosinophil Absolute Kijsk0010-21-41 08:07:00 Test Item Value Reference Range Interpretation Comments Eosinophil Absolute Count (test 0.2 X10E3/UL 0.0-0.4 code = 89252-6) [facility] Hospitalmonocyte count, blood, rumkykruv1683-87-03 08:07:00 Test Item Value Reference Range Interpretation Comments monocyte count, blood, automated 0.5 X10E3/UL 0.1-0.9 (test code = 742-7) [facility] Hospitallymphocyte count, blood, vtajphjlz3267-11-89 08:07:00 Test Item Value Reference Range Interpretation Comments lymphocyte count, blood, 1.7 X10E3/UL 0.7-3.1 automated (test code = 731-0) [facility] HospitalAbsolute Vwxdbjqchyl4956-32-73 08:07:00 Test Item Value Reference Range Interpretation Comments Absolute Neutrophils (test code 5.2 X10E3/UL 1.4-7.0 = 67261-1) [facility] of blood saosqqcjuc7337-02-07 08:07:00 Test Item Value Reference Range Interpretation Comments basophils as percent of blood 0 % leukocytes (test code = 707-0) [facility] Healtheosinophils as percent of blood mibkecpkqt5142-69-00 08:07:00 Test Item Value Reference Range Interpretation Comments eosinophils as percent of blood 3 % leukocytes (test code = 713-8) [facility] Healthmonocytes as percent of blood orjwvkscuf1150-08-31 08:07:00 Test Item Value Reference Range Interpretation Comments monocytes as percent of blood 6 % leukocytes (test code = 5905-5) [facility] Hospitallymphocytes as percent of blood wmknszqceb6696-38-25 08:07:00 Test Item Value Reference Range Interpretation Comments lymphocytes as percent of blood 22 % leukocytes (test code = 736-9) [facility] Hospitalneutrophils as percent of blood ptbgltkoet9026-16-91 08:07:00 Test Item Value Reference Range Interpretation Comments neutrophils as percent of blood 69 % leukocytes (test code = 770-8) [facility] Hospitalplatelet xptkx7086-97-59 08:07:00 Test Item Value Reference Range Interpretation Comments platelet count (test code = 257 X10E3/UL 150-379 777-3) [facility] Hospitalred blood cell distribution msaxn5855-73-73 08:07:00 Test Item Value Reference Range Interpretation Comments red blood cell distribution width 12.9 % 12.3-15.4 (test code = 788-0) [facility] corpuscular hemoglobin concentration, [id number] 08:07:00 Test Item Value Reference Range Interpretation Comments mean corpuscular hemoglobin 34.3 G/DL 31.5-35.7 concentration, RBC (test code = 786-4) [facility], [id number] 08:07:00 Test Item Value Reference Range Interpretation Comments mean corpuscular hemoglobin, RBC 34.5 pg 26.6-33.0 H (test code = 785-6) [facility] corpuscular volume, [id number] 08:07:00 Test Item Value Reference Range Interpretation Comments mean corpuscular volume, RBC (test 101 fL 79-97 H code = 787-2) [facility] Hospitalhematocrit, [id number] 08:07:00 Test Item Value Reference Range Interpretation Comments hematocrit, blood (test code = 4544-3) 44.6 % 34.0-46.6 [facility] Hospitalhemoglobin, gvcot3751-07-24 08:07:00 Test Item Value Reference Range Interpretation Comments hemoglobin, blood (test code = 15.3 g/dL 11.1-15.9 718-7) [facility] Hospitalerythrocyte (RBC) [id number] 08:07:00 Test Item Value Reference Range Interpretation Comments erythrocyte (RBC) count (test 4.43 X10E6/UL 3.77-5.28 code = 789-8) [facility] Hospitalleukocyte count, mlzfb8595-88-71 08:07:00 Test Item Value Reference Range Interpretation Comments leukocyte count, blood (test 7.7 X10E3/UL 3.4-10.8 code = 6690-2) [facility] HospitalCD4/CD8 [id number] 08:07:00 Test Item Value Reference Range Interpretation Comments CD4/CD8 ratio (test code = 19580) 0.84 0.92-3.72 L [facility] HospitalT-suppressor cells (CD8) as percent of blood lymphocytes 2016-10-19 08:07:00 Test Item Value Reference Range Interpretation Comments T-suppressor cells (CD8) as percent of 26.3 % 12.0-35.5 blood lymphocytes (test code = 3517) [facility]absolute [id number] 08:07:00 Test Item Value Reference Range Interpretation Comments absolute CD8 (test code = 80656) 447 109897 [facility] HospitalT-helper cells (CD4) as percent of blood lymphocytes 2016-10-19 08:07:00 Test Item Value Reference Range Interpretation Comments T-helper cells (CD4) as percent of 22.0 % 30.8-58.5 L blood lymphocytes (test code = 8123-2) [facility] HospitalT-helper cells (CD4) wykki3818-23-75 08:07:00 Test Item Value Reference Range Interpretation Comments T-helper cells (CD4) count (test code 374 /UL 359-1519 = 30992-5) [facility] Hospitalhepatitis B surface qehlojm6285-44-33 09:14:00 Test Item Value Reference Range Interpretation Comments hepatitis B surface antigen (test Negative Negative code = 79) [facility] Hospitalhepatitis C antibody, [id number] 09:14:00 Test Item Value Reference Range Interpretation Comments hepatitis C antibody, serum (test code 0.2 0.0-0.9 = 5199-5) [facility] Hospitalvitamin D 25-hydroxy, ytbmt6890-39-93 09:14:00 Test Item Value Reference Range Interpretation Comments vitamin D 25-hydroxy, serum (test 27.6 ng/mL 30.0-100.0 L code = 97831-3) [facility] Hospitalrapid plasma reagin antibody, [id number] 09:14:00 Test Item Value Reference Range Interpretation Comments rapid plasma reagin antibody, Non Reactive Non Reactive serum (test code = 5291-0) [facility] HospitalHIV-1RNA, serum, by PCR, zuufjcywgkly7672-71-50 09:14:00 Test Item Value Reference Range Interpretation Comments HIV-1RNA, serum, by PCR, quantitative 30 /mL (test code = 93304) [facility] HospitalLDL cholesterol, [id number] 09:14:00 Test Item Value Reference Range Interpretation Comments LDL cholesterol, serum (test code = 82 mg/dL 0-99 2088-1) [facility] Hospitalvery low density tileyedmlyri2581-87-00 09:14:00 Test Item Value Reference Range Interpretation Comments very low density lipoproteins (test 40 mg/dL 5-40 code = 2091-7) [facility] HospitalHDL cholesterol, johsh2426-04-09 09:14:00 Test Item Value Reference Range Interpretation Comments HDL cholesterol, serum (test code = 42 mg/dL >39 2084-9) [facility] Hospitaltriglyceride, serum, hxwqjsg3597-04-49 09:14:00 Test Item Value Reference Range Interpretation Comments triglyceride, serum, fasting (test 199 mg/dL 0-149 H code = 2571-8) [facility]cholesterol, [id number] 09:14:00 Test Item Value Reference Range Interpretation Comments cholesterol, serum (test code = 164 mg/dL 029-058 8185-3) [facility] Hospitalalanine aminotransferase (SGPT), gtgqj4994-33-62 09:14:00 Test Item Value Reference Range Interpretation Comments alanine aminotransferase (SGPT), serum 12 1/L 0-32 (test code = 1742-6) [facility] Hospitalaspartate aminotransferase (SGOT), dveql4589-28-04 09:14:00 Test Item Value Reference Range Interpretation Comments aspartate aminotransferase (SGOT), 14 1/L 0-40 serum (test code = 1920-8) [facility] Hospitalalkaline phosphatase, hlgxt1220-07-08 09:14:00 Test Item Value Reference Range Interpretation Comments alkaline phosphatase, serum (test 169 1/L 39-117 H code = 1783-0) [facility]bilirubin, serum, [id number] 09:14:00 Test Item Value Reference Range Interpretation Comments bilirubin, serum, total (test code 0.4 mg/dL 0.0-1.2 = 1975-2) [facility] Hospitalalbumin/globulin ratio, cwlpa5030-17-15 09:14:00 Test Item Value Reference Range Interpretation Comments albumin/globulin ratio, serum (test 1.8 1.1-2.5 code = 1759-0) [facility] Healthglobulin, utisp6587-79-59 09:14:00 Test Item Value Reference Range Interpretation Comments globulin, serum (test code = 2336-6) 2.4 1.5-4.5 [facility] Healthalbumin, yumfn9597-06-70 09:14:00 Test Item Value Reference Range Interpretation Comments albumin, serum (test code = 1751-7) 4.3 g/dL 3.5-5.5 [facility] Healthprotein, total, rpjyv2805-36-25 09:14:00 Test Item Value Reference Range Interpretation Comments protein, total, serum (test code = 6.7 g/dL 6.0-8.5 2885-2) [facility]calcium, [id number] 09:14:00 Test Item Value Reference Range Interpretation Comments calcium, serum (test code = 2000-8) 9.4 mg/dL 8.7-10.2 [facility] Hospitalcarbon dioxide, venous osvzv7539-00-29 09:14:00 Test Item Value Reference Range Interpretation Comments carbon dioxide, venous blood (test 24 mmol/L 18-29 code = 7-1) [facility] Healthchloride, uocts9911-06-80 09:14:00 Test Item Value Reference Range Interpretation Comments chloride, serum (test code = 96 mmol/L 97-108 L 2075-0) [facility] Healthpotassium, wtkaw7108-84-44 09:14:00 Test Item Value Reference Range Interpretation Comments potassium, serum (test code = 4.4 mmol/L 3.5-5.2 2823-3) [facility] Healthsodium, bjxfu9295-68-08 09:14:00 Test Item Value Reference Range Interpretation Comments sodium, serum (test code = 2951-2) 137 mmol/L 134-144 [facility] Hospitalurea nitrogen/creatinine ratio, wxesz2614-98-27 09:14:00 Test Item Value Reference Range Interpretation Comments urea nitrogen/creatinine ratio, serum 13 9-23 (test code = 3097-3) [facility] HealtheGFR if Mdrqgaxh4396-47-33 09:14:00 Test Item Value Reference Range Interpretation Comments eGFR if 117 >59 (test code = 99237-4) mL/min/((173/100).m2) [facility] HospitalEstimated Glomerular Filtration Rate (calc)2016-07-01 09:14:00 Test Item Value Reference Range Interpretation Comments Estimated Glomerular 102 >59 Filtration Rate (calc) mL/min/((173/100).m2 (test code = 90659-9) ) [facility] Hospitalcreatinine, [id number] 09:14:00 Test Item Value Reference Range Interpretation Comments creatinine, serum (test code = 0.61 mg/dL 0.57-1.00 2160-0) [facility] Hospitalurea nitrogen, hapma4307-57-87 09:14:00 Test Item Value Reference Range Interpretation Comments urea nitrogen, blood (test code = 8 mg/dL 6-24 3094-0) [facility] Hospitalblood glucose, tundzc3400-99-95 09:14:00 Test Item Value Reference Range Interpretation Comments blood glucose, random (test code = 106 mg/dL 65-99 H 2339-0) [facility] Hospitalimmature granulocytes, percentage of total cells, blood 2016-07-01 09:14:00 Test Item Value Reference Range Interpretation Comments immature granulocytes, percentage of 0 % total cells, blood (test code = 00982-3) [facility]basophil count, fokqiuuf2720-40-23 09:14:00 Test Item Value Reference Range Interpretation Comments basophil count, absolute (test 0.0 x10E3/uL 0.0-0.2 code = 18913-0) [facility] HealthEosinophil Absolute [id number] 09:14:00 Test Item Value Reference Range Interpretation Comments Eosinophil Absolute Count (test 0.3 X10E3/UL 0.0-0.4 code = 70136-0) [facility] Healthmonocyte count, blood, aomrioqnd7910-36-05 09:14:00 Test Item Value Reference Range Interpretation Comments monocyte count, blood, automated 0.4 X10E3/UL 0.1-0.9 (test code = 742-7) [facility] Hospitallymphocyte count, blood, kqgrwngki1004-08-56 09:14:00 Test Item Value Reference Range Interpretation Comments lymphocyte count, blood, 1.5 X10E3/UL 0.7-3.1 automated (test code = 731-0) [facility] HospitalAbsolute Uncpaeabkal4442-54-28 09:14:00 Test Item Value Reference Range Interpretation Comments Absolute Neutrophils (test code 3.6 X10E3/UL 1.4-7.0 = 51802-0) [facility] Hospitalbasophils as percent of blood tqnrjmtxhy7595-41-64 09:14:00 Test Item Value Reference Range Interpretation Comments basophils as percent of blood 0 % leukocytes (test code = 707-0) [facility] Healtheosinophils as percent of blood gmdkddqfmw1715-99-58 09:14:00 Test Item Value Reference Range Interpretation Comments eosinophils as percent of blood 5 % leukocytes (test code = 713-8) [facility] Healthmonocytes as percent of blood njxppbmbjo4178-12-13 09:14:00 Test Item Value Reference Range Interpretation Comments monocytes as percent of blood 7 % leukocytes (test code = 5905-5) [facility] Hospitallymphocytes as percent of blood davbdoqcci2620-59-32 09:14:00 Test Item Value Reference Range Interpretation Comments lymphocytes as percent of blood 25 % leukocytes (test code = 736-9) [facility] Healthneutrophils as percent of blood fptorkylgg9460-92-72 09:14:00 Test Item Value Reference Range Interpretation Comments neutrophils as percent of blood 63 % leukocytes (test code = 770-8) [facility] Hospitalplatelet ehgeg5149-71-08 09:14:00 Test Item Value Reference Range Interpretation Comments platelet count (test code = 210 X10E3/UL 150-379 777-3) [facility] Hospitalred blood cell distribution famoy5920-04-03 09:14:00 Test Item Value Reference Range Interpretation Comments red blood cell distribution width 13.2 % 12.3-15.4 (test code = 788-0) [facility] corpuscular hemoglobin concentration, [id number] 09:14:00 Test Item Value Reference Range Interpretation Comments mean corpuscular hemoglobin 35.0 G/DL 31.5-35.7 concentration, RBC (test code = 786-4) [facility] corpuscular hemoglobin, [id number] 09:14:00 Test Item Value Reference Range Interpretation Comments mean corpuscular hemoglobin, RBC 35.2 pg 26.6-33.0 H (test code = 785-6) [facility], [id number] 09:14:00 Test Item Value Reference Range Interpretation Comments mean corpuscular volume, RBC (test 101 fL 79-97 H code = 787-2) [facility]hematocrit, fxshb3286-03-31 09:14:00 Test Item Value Reference Range Interpretation Comments hematocrit, blood (test code = 4544-3) 40.8 % 34.0-46.6 [facility] Hospitalhemoglobin, svgua2023-15-64 09:14:00 Test Item Value Reference Range Interpretation Comments hemoglobin, blood (test code = 14.3 g/dL 11.1-15.9 718-7) [facility] Hospitalerythrocyte (RBC) wkghi1633-67-77 09:14:00 Test Item Value Reference Range Interpretation Comments erythrocyte (RBC) count (test 4.06 X10E6/UL 3.77-5.28 code = 789-8) [facility] Hospitalleukocyte count, rrswz4276-73-35 09:14:00 Test Item Value Reference Range Interpretation Comments leukocyte count, blood (test 5.8 X10E3/UL 3.4-10.8 code = 6690-2) [facility] HospitalCD4/CD8 doted3423-04-93 09:14:00 Test Item Value Reference Range Interpretation Comments CD4/CD8 ratio (test code = 30559) 0.68 0.92-3.72 L [facility] HospitalT-suppressor cells (CD8) as percent of blood lymphocytes 2016-07-01 09:14:00 Test Item Value Reference Range Interpretation Comments T-suppressor cells (CD8) as percent of 28.2 % 12.0-35.5 blood lymphocytes (test code = 3517) [facility]absolute [id number] 09:14:00 Test Item Value Reference Range Interpretation Comments absolute CD8 (test code = 86633) 423 109-897 [facility] HospitalT-helper cells (CD4) as percent of blood lymphocytes 2016-07-01 09:14:00 Test Item Value Reference Range Interpretation Comments T-helper cells (CD4) as percent of 19.2 % 30.8-58.5 L blood lymphocytes (test code = 8123-2) [facility] HospitalT-helper cells (CD4) rubff3169-28-30 09:14:00 Test Item Value Reference Range Interpretation Comments T-helper cells (CD4) count (test code 288 /UL 359-1519 L = 68141-1) [facility] Hospitalrad plasma reagin antibody, ckobs9808-20-84 09:42:00 Test Item Value Reference Range Interpretation Comments rapid plasma reagin antibody, Non Reactive Non Reactive serum (test code = 5291-0) [facility] HospitalHIV-1RNA, serum, by PCR, mfodyjmtjaux8766-12-08 09:42:00 Test Item Value Reference Range Interpretation Comments HIV-1RNA, serum, by PCR, <20 copies/mL quantitative (test code = 21002) [facility] HospitalLDL cholesterol, [id number] 09:42:00 Test Item Value Reference Range Interpretation Comments LDL cholesterol, serum (test code = 58 mg/dL 0-99 2088-1) [facility] low density tfibmlzxlxnn5590-45-66 09:42:00 Test Item Value Reference Range Interpretation Comments very low density lipoproteins (test 32 mg/dL 5-40 code = 2091-7) [facility]HDL cholesterol, [id number] 09:42:00 Test Item Value Reference Range Interpretation Comments HDL cholesterol, serum (test code = 43 mg/dL >39 5-9) [facility]triglyceride, serum, [id number] 09:42:00 Test Item Value Reference Range Interpretation Comments triglyceride, serum, fasting (test 161 mg/dL 0-149 H code = 2571-8) [facility]cholesterol, [id number] 09:42:00 Test Item Value Reference Range Interpretation Comments cholesterol, serum (test code = 133 mg/dL 219-113 6340-3) [facility]alanine aminotransferase (SGPT), [id number] 09:42:00 Test Item Value Reference Range Interpretation Comments alanine aminotransferase (SGPT), serum 15 1/L 0-32 (test code = 1742-6) [facility] Hospitalaspartate aminotransferase (SGOT), [id number] 09:42:00 Test Item Value Reference Range Interpretation Comments aspartate aminotransferase (SGOT), 16 1/L 0-40 serum (test code = 1920-8) [facility]alkaline phosphatase, [id number] 09:42:00 Test Item Value Reference Range Interpretation Comments alkaline phosphatase, serum (test 130 1/L 39-117 H code = 1783-0) [facility]bilirubin, serum, [id number] 09:42:00 Test Item Value Reference Range Interpretation Comments bilirubin, serum, total (test code 0.3 mg/dL 0.0-1.2 = 1975-2) [facility]albumin/globulin ratio, [id number] 09:42:00 Test Item Value Reference Range Interpretation Comments albumin/globulin ratio, serum (test 1.5 1.1-2.5 code = 1759-0) [facility] Healthglobulin, [id number] 09:42:00 Test Item Value Reference Range Interpretation Comments globulin, serum (test code = 2336-6) 2.7 1.5-4.5 [facility]albumin, [id number] 09:42:00 Test Item Value Reference Range Interpretation Comments albumin, serum (test code = 1751-7) 4.1 g/dL 3.5-5.5 [facility], total, [id number] 09:42:00 Test Item Value Reference Range Interpretation Comments protein, total, serum (test code = 6.8 g/dL 6.0-8.5 2885-2) [facility]calcium, [id number] 09:42:00 Test Item Value Reference Range Interpretation Comments calcium, serum (test code = 1999-) 9.4 mg/dL 8.7-10.2 [facility]carbon dioxide, venous [id number] 09:42:00 Test Item Value Reference Range Interpretation Comments carbon dioxide, venous blood (test 29 mmol/L 18-29 code = 2026-1) [facility] Hospitalchloride, [id number] 09:42:00 Test Item Value Reference Range Interpretation Comments chloride, serum (test code = 104 mmol/L 97-108 5-0) [facility] Hospitalpotassium, [id number] 09:42:00 Test Item Value Reference Range Interpretation Comments potassium, serum (test code = 4.4 mmol/L 3.5-5.2 2823-3) [facility] Hospitalsodium, [id number] 09:42:00 Test Item Value Reference Range Interpretation Comments sodium, serum (test code = 2951-2) 145 mmol/L 134-144 H [facility] Hospitalurea nitrogen/creatinine ratio, [id number] 09:42:00 Test Item Value Reference Range Interpretation Comments urea nitrogen/creatinine ratio, serum 20 9-23 (test code = 3097-3) [facility] HospitaleGFR if Aabqmdwa1405-09-56 09:42:00 Test Item Value Reference Range Interpretation Comments eGFR if 117 >59 (test code = 29480-1) mL/min/((173/100).m2) [facility] HospitalEstimated Glomerular Filtration Rate (calc)2016-01-27 09:42:00 Test Item Value Reference Range Interpretation Comments Estimated Glomerular 102 >59 Filtration Rate (calc) mL/min/((173/100).m2 (test code = 80396-3) ) [facility] Hospitalcreatinine, [id number] 09:42:00 Test Item Value Reference Range Interpretation Comments creatinine, serum (test code = 0.61 mg/dL 0.57-1.00 2160-0) [facility] Healthurea nitrogen, [id number] 09:42:00 Test Item Value Reference Range Interpretation Comments urea nitrogen, blood (test code = 12 mg/dL 6-24 3094-0) [facility] Hospitalblood glucose, [id number] 09:42:00 Test Item Value Reference Range Interpretation Comments blood glucose, random (test code = 127 mg/dL 65-99 H 2339-0) [facility] Hospitalimmature granulocytes, percentage of total cells, blood 2016-01-27 09:42:00 Test Item Value Reference Range Interpretation Comments immature granulocytes, percentage of 0 % total cells, blood (test code = 76999-6) [facility] Hospitalbasophil count, [id number] 09:42:00 Test Item Value Reference Range Interpretation Comments basophil count, absolute (test 0.0 x10E3/uL 0.0-0.2 code = 21473-9) [facility] HospitalEosinophil Absolute Tvzmz8865-27-19 09:42:00 Test Item Value Reference Range Interpretation Comments Eosinophil Absolute Count (test 0.3 X10E3/UL 0.0-0.4 code = 63233-6) [facility] Hospitalmonocyte count, blood, fgqvggnfp2497-54-92 09:42:00 Test Item Value Reference Range Interpretation Comments monocyte count, blood, automated 0.4 X10E3/UL 0.1-0.9 (test code = 742-7) [facility] Hospitallymphocyte count, blood, tlhecbgtp8405-14-57 09:42:00 Test Item Value Reference Range Interpretation Comments lymphocyte count, blood, 1.4 X10E3/UL 0.7-3.1 automated (test code = 731-0) [facility] HospitalAbsolute Gplpeuvbsyh7267-85-03 09:42:00 Test Item Value Reference Range Interpretation Comments Absolute Neutrophils (test code 3.2 X10E3/UL 1.4-7.0 = 88428-3) [facility] Hospitalbasophils as percent of blood owpfyutgmb6874-72-02 09:42:00 Test Item Value Reference Range Interpretation Comments basophils as percent of blood 0 % leukocytes (test code = 707-0) [facility] Hospitaleosinophils as percent of blood kctiebpfyj7156-98-46 09:42:00 Test Item Value Reference Range Interpretation Comments eosinophils as percent of blood 5 % leukocytes (test code = 713-8) [facility] Healthmonocytes as percent of blood xfdtthoevg0934-60-01 09:42:00 Test Item Value Reference Range Interpretation Comments monocytes as percent of blood 7 % leukocytes (test code = 5905-5) [facility] Hospitallymphocytes as percent of blood wskzuimnhb4167-03-95 09:42:00 Test Item Value Reference Range Interpretation Comments lymphocytes as percent of blood 26 % leukocytes (test code = 736-9) [facility] Healthneutrophils as percent of blood sxibqmbghy4436-60-57 09:42:00 Test Item Value Reference Range Interpretation Comments neutrophils as percent of blood 62 % leukocytes (test code = 770-8) [facility] Hospitalplatelet mdtuz1836-13-70 09:42:00 Test Item Value Reference Range Interpretation Comments platelet count (test code = 197 X10E3/UL 150-379 777-3) [facility] Hospitalred blood cell distribution fbjyb9778-53-08 09:42:00 Test Item Value Reference Range Interpretation Comments red blood cell distribution width 13.6 % 12.3-15.4 (test code = 788-0) [facility] corpuscular hemoglobin concentration, [id number] 09:42:00 Test Item Value Reference Range Interpretation Comments mean corpuscular hemoglobin 34.3 G/DL 31.5-35.7 concentration, RBC (test code = 786-4) [facility] corpuscular hemoglobin, [id number] 09:42:00 Test Item Value Reference Range Interpretation Comments mean corpuscular hemoglobin, RBC 35.1 pg 26.6-33.0 H (test code = 785-6) [facility], [id number] 09:42:00 Test Item Value Reference Range Interpretation Comments mean corpuscular volume, RBC (test 102 fL 79-97 H code = 787-2) [facility] Hospitalhematocrit, edzrx9133-76-13 09:42:00 Test Item Value Reference Range Interpretation Comments hematocrit, blood (test code = 4544-3) 40.2 % 34.0-46.6 [facility]hemoglobin, [id number] 09:42:00 Test Item Value Reference Range Interpretation Comments hemoglobin, blood (test code = 13.8 g/dL 11.1-15.9 718-7) [facility] Hospitalerythrocyte (RBC) aywrx6934-58-69 09:42:00 Test Item Value Reference Range Interpretation Comments erythrocyte (RBC) count (test 3.93 X10E6/UL 3.77-5.28 code = 789-8) [facility] Hospitalleukocyte count, [id number] 09:42:00 Test Item Value Reference Range Interpretation Comments leukocyte count, blood (test 5.2 X10E3/UL 3.4-10.8 code = 6690-2) [facility] HospitalCD4/CD8 oedqu4302-35-15 09:42:00 Test Item Value Reference Range Interpretation Comments CD4/CD8 ratio (test code = 69342) 0.67 0.92-3.72 L [facility] HospitalT-suppressor cells (CD8) as percent of blood lymphocytes 2016-01-27 09:42:00 Test Item Value Reference Range Interpretation Comments T-suppressor cells (CD8) as percent of 28.8 % 12.0-35.5 blood lymphocytes (test code = 3517) [facility] Hospitalabsolute [id number] 09:42:00 Test Item Value Reference Range Interpretation Comments absolute CD8 (test code = 42240) 403 109-897 [facility] HospitalT-helper cells (CD4) as percent of blood lymphocytes 2016-01-27 09:42:00 Test Item Value Reference Range Interpretation Comments T-helper cells (CD4) as percent of 19.2 % 30.8-58.5 L blood lymphocytes (test code = 8123-2) [facility] HospitalT-helper cells (CD4) tfgvb5287-95-09 09:42:00 Test Item Value Reference Range Interpretation Comments T-helper cells (CD4) count (test code 269 /UL 359-1519 L = 99125-4) [facility] [id number] 10:14:15 Test Item Value Reference Range Interpretation Comments human leukocyte antigen B57 (test negative code = 246328) [facility] HospitalQuantiferon Gold TB blood test for tuberculosis screening 2015-06-17 10:13:00 Test Item Value Reference Range Interpretation Comments Quantiferon Gold TB blood test for Negative Negative tuberculosis screening (test code = 18642-4) [facility] HospitalHIV-1RNA, serum, by PCR, cqdeexfdvlkk2080-08-74 10:13:00 Test Item Value Reference Range Interpretation Comments HIV-1RNA, serum, by PCR, <20 copies/mL quantitative (test code = 55534) [facility] Hospitalrapid plasma reagin antibody, [id number] 10:13:00 Test Item Value Reference Range Interpretation Comments rapid plasma reagin antibody, Non Reactive Non Reactive serum (test code = 5291-0) [facility] HospitalLDL cholesterol, qomps1697-56-78 10:13:00 Test Item Value Reference Range Interpretation Comments LDL cholesterol, serum (test code = 33 mg/dL 0-99 2088-1) [facility] Hospitalvery low density ricmvvarrfnl7967-17-84 10:13:00 Test Item Value Reference Range Interpretation Comments very low density lipoproteins (test 17 mg/dL 5-40 code = 2091-7) [facility] HospitalHDL cholesterol, mvuwz5310-23-56 10:13:00 Test Item Value Reference Range Interpretation Comments HDL cholesterol, serum (test code = 38 mg/dL >39 L 2084-9) [facility] Hospitaltriglyceride, serum, [id number] 10:13:00 Test Item Value Reference Range Interpretation Comments triglyceride, serum, fasting (test 83 mg/dL 0-149 code = 2571-8) [facility]cholesterol, cjlle8174-12-12 10:13:00 Test Item Value Reference Range Interpretation Comments cholesterol, serum (test code = 88 mg/dL 100-199 L 2092-3) [facility] Hospitalalanine aminotransferase (SGPT), [id number] 10:13:00 Test Item Value Reference Range Interpretation Comments alanine aminotransferase (SGPT), serum 15 1/L 0-32 (test code = 1742-6) [facility] Hospitalaspartate aminotransferase (SGOT), [id number] 10:13:00 Test Item Value Reference Range Interpretation Comments aspartate aminotransferase (SGOT), 23 1/L 0-40 serum (test code = 1920-8) [facility]alk[facility], ogmbw1784-79-00 10:13:00 Test Item Value Reference Range Interpretation Comments alkaline phosphatase, serum (test 120 1/L 39-117 H code = 1783-0) [facility] Healthbilirubin, serum, [id number] 10:13:00 Test Item Value Reference Range Interpretation Comments bilirubin, serum, total (test code 0.3 mg/dL 0.0-1.2 = 1975-2) [facility] Healthalbumin/globulin ratio, yyrln5915-58-07 10:13:00 Test Item Value Reference Range Interpretation Comments albumin/globulin ratio, serum (test 1.8 1.1-2.5 code = 1759-0) [facility] Healthglobulin, [id number] 10:13:00 Test Item Value Reference Range Interpretation Comments globulin, serum (test code = 2336-6) 2.2 1.5-4.5 [facility] Healthalbumin, [id number] 10:13:00 Test Item Value Reference Range Interpretation Comments albumin, serum (test code = 1751-7) 3.9 g/dL 3.5-5.5 [facility] Healthprotein, total, jpqbx5158-20-20 10:13:00 Test Item Value Reference Range Interpretation Comments protein, total, serum (test code = 6.1 g/dL 6.0-8.5 2885-2) [facility] Healthcalcium, [id number] 10:13:00 Test Item Value Reference Range Interpretation Comments calcium, serum (test code = 1999-8) 9.4 mg/dL 8.7-10.2 [facility]carbon dioxide, venous [id number] 10:13:00 Test Item Value Reference Range Interpretation Comments carbon dioxide, venous blood (test 26 mmol/L 18-29 code = 7-1) [facility] Hospitalchloride, [id number] 10:13:00 Test Item Value Reference Range Interpretation Comments chloride, serum (test code = 102 mmol/L 97-108 5-0) [facility] Hospitalpotassium, izgft7712-48-94 10:13:00 Test Item Value Reference Range Interpretation Comments potassium, serum (test code = 3.1 mmol/L 3.5-5.2 L 2823-3) [facility] Hospitalsodium, [id number] 10:13:00 Test Item Value Reference Range Interpretation Comments sodium, serum (test code = 2951-2) 144 mmol/L 134-144 [facility]urea nitrogen/creatinine ratio, [id number] 10:13:00 Test Item Value Reference Range Interpretation Comments urea nitrogen/creatinine ratio, serum 11 9-23 (test code = 3097-3) [facility] HealtheGFR if Hbhxfkav4889-45-64 10:13:00 Test Item Value Reference Range Interpretation Comments eGFR if 113 >59 (test code = 63526-6) mL/min/((173/100).m2) [facility] HospitalEstimated Glomerular Filtration Rate (calc)2015-06-17 10:13:00 Test Item Value Reference Range Interpretation Comments Estimated Glomerular 98 >59 Filtration Rate (calc) mL/min/((173/100).m2 (test code = 98435-1) ) [facility] Hospitalcreatinine, [id number] 10:13:00 Test Item Value Reference Range Interpretation Comments creatinine, serum (test code = 0.70 mg/dL 0.57-1.00 2160-0) [facility]urea nitrogen, rjmet2771-76-32 10:13:00 Test Item Value Reference Range Interpretation Comments urea nitrogen, blood (test code = 8 mg/dL 6-24 3094-0) [facility] Hospitalblood glucose, zfskjp1106-99-20 10:13:00 Test Item Value Reference Range Interpretation Comments blood glucose, random (test code = 77 mg/dL 65-99 2339-0) [facility] Hospitalimmature granulocytes, percentage of total cells, blood 2015-06-17 10:13:00 Test Item Value Reference Range Interpretation Comments immature granulocytes, percentage of 0 % total cells, blood (test code = 03330-4) [facility]basophil count, csmocbdq9604-05-06 10:13:00 Test Item Value Reference Range Interpretation Comments basophil count, absolute (test 0.0 x10E3/uL 0.0-0.2 code = 97080-6) [facility] HospitalEosinophil Absolute Fqgvc1179-89-92 10:13:00 Test Item Value Reference Range Interpretation Comments Eosinophil Absolute Count (test 0.2 X10E3/UL 0.0-0.4 code = 71781-8) [facility] Healthmonocyte count, blood, wszjttxbp3031-32-86 10:13:00 Test Item Value Reference Range Interpretation Comments monocyte count, blood, automated 0.3 X10E3/UL 0.1-0.9 (test code = 742-7) [facility]allymphocyte count, blood, sljrfvwhi7181-32-24 10:13:00 Test Item Value Reference Range Interpretation Comments lymphocyte count, blood, 1.3 X10E3/UL 0.7-3.1 automated (test code = 731-0) [facility]Absolute Sqrxqmwboaq1916-68-61 10:13:00 Test Item Value Reference Range Interpretation Comments Absolute Neutrophils (test code 3.5 X10E3/UL 1.4-7.0 = 19068-9) [facility] Hospitalbasophils as percent of blood elhekaqugu3365-63-66 10:13:00 Test Item Value Reference Range Interpretation Comments basophils as percent of blood 0 % leukocytes (test code = 707-0) [facility]aleosinophils as percent of blood obwvivmblq7961-80-32 10:13:00 Test Item Value Reference Range Interpretation Comments eosinophils as percent of blood 4 % leukocytes (test code = 713-8) [facility] Healthmonocytes as percent of blood vkebpivdgo7157-10-46 10:13:00 Test Item Value Reference Range Interpretation Comments monocytes as percent of blood 6 % leukocytes (test code = 5905-5) [facility]allymphocytes as percent of blood gixrirzqgy8035-22-15 10:13:00 Test Item Value Reference Range Interpretation Comments lymphocytes as percent of blood 24 % leukocytes (test code = 736-9) [facility] Hospitalneutrophils as percent of blood tkpdaqnjap5836-61-40 10:13:00 Test Item Value Reference Range Interpretation Comments neutrophils as percent of blood 66 % leukocytes (test code = 770-8) [facility] Hospitalplatelet fbbay4076-63-40 10:13:00 Test Item Value Reference Range Interpretation Comments platelet count (test code = 243 X10E3/UL 150-379 777-3) [facility]red blood cell distribution avlor4960-36-83 10:13:00 Test Item Value Reference Range Interpretation Comments red blood cell distribution width 14.1 % 12.3-15.4 (test code = 788-0) [facility] corpuscular hemoglobin concentration, [id number] 10:13:00 Test Item Value Reference Range Interpretation Comments mean corpuscular hemoglobin 35.6 G/DL 31.5-35.7 concentration, RBC (test code = 786-4) [facility]mean corpuscular hemoglobin, FSF6073-94-91 10:13:00 Test Item Value Reference Range Interpretation Comments mean corpuscular hemoglobin, RBC 37.0 pg 26.6-33.0 H (test code = 785-6) [facility] corpuscular volume, [id number] 10:13:00 Test Item Value Reference Range Interpretation Comments mean corpuscular volume, RBC (test 104 fL 79-97 H code = 787-2) [facility]hematocrit, cuevx2046-87-78 10:13:00 Test Item Value Reference Range Interpretation Comments hematocrit, blood (test code = 4544-3) 33.1 % 34.0-46.6 L [facility]hemoglobin, [id number] 10:13:00 Test Item Value Reference Range Interpretation Comments hemoglobin, blood (test code = 11.8 g/dL 11.1-15.9 718-7) [facility] Hospitalerythrocyte (RBC) ypwla2985-54-19 10:13:00 Test Item Value Reference Range Interpretation Comments erythrocyte (RBC) count (test 3.19 X10E6/UL 3.77-5.28 L code = 789-8) [facility]leukocyte count, qpqva0650-42-82 10:13:00 Test Item Value Reference Range Interpretation Comments leukocyte count, blood (test 5.3 X10E3/UL 3.4-10.8 code = 6690-2) [facility] HospitalCD4/CD8 pzgih6083-56-27 10:13:00 Test Item Value Reference Range Interpretation Comments CD4/CD8 ratio (test code = 00869) 0.47 0.92-3.72 L [facility] HospitalT-suppressor cells (CD8) as percent of blood lymphocytes 2015-06-17 10:13:00 Test Item Value Reference Range Interpretation Comments T-suppressor cells (CD8) as percent of 27.6 % 12.0-35.5 blood lymphocytes (test code = 3517) [facility] Healthabsolute [id number] 10:13:00 Test Item Value Reference Range Interpretation Comments absolute CD8 (test code = 46157) 359 109-897 [facility]T-helper cells (CD4) as percent of blood lymphocytes 2015-06-17 10:13:00 Test Item Value Reference Range Interpretation Comments T-helper cells (CD4) as percent of 13.0 % 30.8-58.5 L blood lymphocytes (test code = 8123-2) [facility] HospitalT-helper cells (CD4) prjar9506-75-22 10:13:00 Test Item Value Reference Range Interpretation Comments T-helper cells (CD4) count (test code 169 /UL 359-1519 L = 49530-2) [facility] HospitalT-helper cells (CD4) count, lowest absolute value 2015-03-18 10:06:41 Test Item Value Reference Range Interpretation Comments T-helper cells (CD4) count, lowest 150 absolute value (test code = 79316) [facility] HospitalHIV-CMIA (Chemiluminescent Microparticle Immuno Assay) 2015-03-03 09:53:00 Test Item Value Reference Range Interpretation Comments HIV-CMIA (Chemiluminescent Reactive Non Reactive A Microparticle Immuno Assay) (test code = 789374) [facility]HIV-1RNA, serum, by PCR, bbhxbcyasqpd1382-92-24 09:53:00 Test Item Value Reference Range Interpretation Comments HIV-1RNA, serum, by PCR, <20 copies/mL quantitative (test code = 19104) [facility] Hospitalhepatitis A antibody, [id number] 09:53:00 Test Item Value Reference Range Interpretation Comments hepatitis A antibody, total (test Negative Negative code = 75) [facility], rcjei5571-46-24 09:53:00 Test Item Value Reference Range Interpretation Comments hepatitis B core antibody, total Negative Negative (test code = 77) [facility] B surface zjhbrzu3076-59-41 09:53:00 Test Item Value Reference Range Interpretation Comments hepatitis B surface antigen (test Negative Negative code = 79) [facility] Hospitalrapid plasma reagin antibody, lubap7805-90-20 09:53:00 Test Item Value Reference Range Interpretation Comments rapid plasma reagin antibody, Non Reactive Non Reactive serum (test code = 5291-0) [facility]hepat[facility] C antibody, jahhe5627-47-04 09:53:00 Test Item Value Reference Range Interpretation Comments hepatitis C antibody, serum (test code <0.1 0.0-0.9 = 5199-5) [facility] Hospitaltoxoplasma gondii antibody, [id number] 09:53:00 Test Item Value Reference Range Interpretation Comments toxoplasma gondii antibody, IgG (test <3.0 0.0-5.9 code = 2430) [facility]hepatitis [facility] surface itkbmskj6648-52-88 09:53:00 Test Item Value Reference Range Interpretation Comments hepatitis B surface antibody Non Reactive (test code = 78) [facility] HospitalLDL cholesterol, tadci6506-03-22 09:53:00 Test Item Value Reference Range Interpretation Comments LDL cholesterol, serum (test code = 133 mg/dL 0-99 H 2088-11) [facility] Hospitalvery low density dcateczgbpwp6327-08-87 09:53:00 Test Item Value Reference Range Interpretation Comments very low density lipoproteins (test 36 mg/dL 5-40 code = 2090-7) [facility] HospitalHDL cholesterol, xbkqh7976-82-02 09:53:00 Test Item Value Reference Range Interpretation Comments HDL cholesterol, serum (test code = 45 mg/dL >39 2084-9) [facility]triglyceride, serum, bclhprw4809-68-33 09:53:00 Test Item Value Reference Range Interpretation Comments triglyceride, serum, fasting (test 178 mg/dL 0-149 H code = 2571-8) [facility]cholesterol, htabj6761-45-56 09:53:00 Test Item Value Reference Range Interpretation Comments cholesterol, serum (test code = 214 mg/dL 100-199 H 2092-3) [facility] Hospitalalanine aminotransferase (SGPT), nwrdb3644-51-79 09:53:00 Test Item Value Reference Range Interpretation Comments alanine aminotransferase (SGPT), serum 9 1/L 0-32 (test code = 1742-6) [facility] Hospitalaspartate aminotransferase (SGOT), sjkzk5118-79-95 09:53:00 Test Item Value Reference Range Interpretation Comments aspartate aminotransferase (SGOT), 10 1/L 0-40 serum (test code = 1920-8) [facility] Healthalkaline phosphatase, thdgt7743-15-56 09:53:00 Test Item Value Reference Range Interpretation Comments alkaline phosphatase, serum (test 120 1/L 39-117 H code = 1783-0) [facility] Healthbilirubin, serum, [id number] 09:53:00 Test Item Value Reference Range Interpretation Comments bilirubin, serum, total (test code 0.5 mg/dL 0.0-1.2 = 1975-2) [facility] [facility] Healthalbumin/globulin ratio, dohru8371-08-47 09:53:00 Test Item Value Reference Range Interpretation Comments albumin/globulin ratio, serum (test 1.7 1.1-2.5 code = 1759-0) [facility] Healthglobulin, hzbve5747-99-75 09:53:00 Test Item Value Reference Range Interpretation Comments globulin, serum (test code = 2336-6) 2.7 1.5-4.5 [facility] Healthalbumin, plvah9672-20-44 09:53:00 Test Item Value Reference Range Interpretation Comments albumin, serum (test code = 1751-7) 4.6 g/dL 3.5-5.5 [facility] Healthprotein, total, nowgh8810-47-09 09:53:00 Test Item Value Reference Range Interpretation Comments protein, total, serum (test code = 7.3 g/dL 6.0-8.5 2885-2) [facility], dbyyt8938-82-33 09:53:00 Test Item Value Reference Range Interpretation Comments calcium, serum (test code = 1999-8) 9.7 mg/dL 8.7-10.2 [facility]carbon dioxide, venous utqcw1625-81-57 09:53:00 Test Item Value Reference Range Interpretation Comments carbon dioxide, venous blood (test 27 mmol/L 18-29 code = 2026-1) [facility] Hospitalchloride, faqxb1974-12-34 09:53:00 Test Item Value Reference Range Interpretation Comments chloride, serum (test code = 100 mmol/L 97-108 2074-0) [facility] Hospitalpotassium, urldt2860-95-95 09:53:00 Test Item Value Reference Range Interpretation Comments potassium, serum (test code = 4.4 mmol/L 3.5-5.2 2823-3) [facility] Hospitalsodium, dogyp6295-16-76 09:53:00 Test Item Value Reference Range Interpretation Comments sodium, serum (test code = 2951-2) 142 mmol/L 134-144 [facility] Hospitalurea nitrogen/creatinine ratio, shxvn1316-18-18 09:53:00 Test Item Value Reference Range Interpretation Comments urea nitrogen/creatinine ratio, serum 15 9-23 (test code = 3097-3) [facility] HospitaleGFR if Fesihndi8142-69-71 09:53:00 Test Item Value Reference Range Interpretation Comments eGFR if 105 >59 (test code = 50443-6) mL/min/((173/100).m2) [facility] HospitalEstimated Glomerular Filtration Rate (calc)2015-03-03 09:53:00 Test Item Value Reference Range Interpretation Comments Estimated Glomerular 91 >59 Filtration Rate (calc) mL/min/((173/100).m2 (test code = 84619-7) ) [facility] Hospitalcreatinine, gitqc0783-05-11 09:53:00 Test Item Value Reference Range Interpretation Comments creatinine, serum (test code = 0.74 mg/dL 0.57-1.00 2160-0) [facility] Hospitalurea nitrogen, hxtbv0834-78-22 09:53:00 Test Item Value Reference Range Interpretation Comments urea nitrogen, blood (test code = 11 mg/dL 6-24 3094-0) [facility] Hospitalblood glucose, hwaoon3982-30-65 09:53:00 Test Item Value Reference Range Interpretation Comments blood glucose, random (test code = 96 mg/dL 65-99 2339-0) [facility] Hospitalimmature granulocytes, percentage of total cells, blood 2015-03-03 09:53:00 Test Item Value Reference Range Interpretation Comments immature granulocytes, percentage of 0 % total cells, blood (test code = 05128-1) [facility] Hospitalbasophil count, xplizjsw9794-00-87 09:53:00 Test Item Value Reference Range Interpretation Comments basophil count, absolute (test 0.0 x10E3/uL 0.0-0.2 code = 85990-9) [facility] HospitalEosinophil Absolute Dhrwo7164-78-02 09:53:00 Test Item Value Reference Range Interpretation Comments Eosinophil Absolute Count (test 0.2 X10E3/UL 0.0-0.4 code = 28238-8) [facility] Healthmonocyte count, blood, uwwdztoea6229-72-78 09:53:00 Test Item Value Reference Range Interpretation Comments monocyte count, blood, automated 0.3 X10E3/UL 0.1-0.9 (test code = 742-7) [facility] Healthlymphocyte count, blood, zsfeesngn1414-06-97 09:53:00 Test Item Value Reference Range Interpretation Comments lymphocyte count, blood, 1.7 X10E3/UL 0.7-3.1 automated (test code = 731-0) [facility] HealthAbsolute Jaivxqspnkr9450-69-73 09:53:00 Test Item Value Reference Range Interpretation Comments Absolute Neutrophils (test code 3.5 X10E3/UL 1.4-7.0 = 40044-0) [facility] Healthbasophils as percent of blood gaymwplhjz1144-15-02 09:53:00 Test Item Value Reference Range Interpretation Comments basophils as percent of blood 0 % leukocytes (test code = 707-0) [facility] Healtheosinophils as percent of blood pyxzjtsagt1851-73-85 09:53:00 Test Item Value Reference Range Interpretation Comments eosinophils as percent of blood 4 % leukocytes (test code = 713-8) [facility] Healthmonocytes as percent of blood stfcruzdki1327-26-14 09:53:00 Test Item Value Reference Range Interpretation Comments monocytes as percent of blood 6 % leukocytes (test code = 5905-5) [facility] Healthlymphocytes as percent of blood uvfgmajrin2537-72-81 09:53:00 Test Item Value Reference Range Interpretation Comments lymphocytes as percent of blood 30 % leukocytes (test code = 736-9) [facility] Hospitalneutrophils as percent of blood yytmmyojqy8278-40-47 09:53:00 Test Item Value Reference Range Interpretation Comments neutrophils as percent of blood 60 % leukocytes (test code = 770-8) [facility] Healthplatelet wojcm2425-86-47 09:53:00 Test Item Value Reference Range Interpretation Comments platelet count (test code = 225 X10E3/UL 150-379 777-3) [facility] Hospitalred blood cell distribution gibhn2686-36-66 09:53:00 Test Item Value Reference Range Interpretation Comments red blood cell distribution width 13.6 % 12.3-15.4 (test code = 788-0) [facility] corpuscular hemoglobin concentration, AGE0364-31-19 09:53:00 Test Item Value Reference Range Interpretation Comments mean corpuscular hemoglobin 33.3 G/DL 31.5-35.7 concentration, RBC (test code = 786-4) [facility] corpuscular hemoglobin, DXY2705-57-01 09:53:00 Test Item Value Reference Range Interpretation Comments mean corpuscular hemoglobin, RBC 35.4 pg 26.6-33.0 H (test code = 785-6) [facility] corpuscular volume, TEZ6318-66-06 09:53:00 Test Item Value Reference Range Interpretation Comments mean corpuscular volume, RBC (test 106 fL 79-97 H code = 787-2) [facility] Hospitalhematocrit, beeyb8750-64-98 09:53:00 Test Item Value Reference Range Interpretation Comments hematocrit, blood (test code = 4544-3) 44.1 % 34.0-46.6 [facility] Hospitalhemoglobin, pohfc0473-43-48 09:53:00 Test Item Value Reference Range Interpretation Comments hemoglobin, blood (test code = 14.7 g/dL 11.1-15.9 718-7) [facility] Hospitalerythrocyte (RBC) otdom6259-53-87 09:53:00 Test Item Value Reference Range Interpretation Comments erythrocyte (RBC) count (test 4.15 X10E6/UL 3.77-5.28 code = 789-8) [facility] Hospitalleukocyte count, iugmk3923-27-72 09:53:00 Test Item Value Reference Range Interpretation Comments leukocyte count, blood (test 5.8 X10E3/UL 3.4-10.8 code = 6690-2) [facility] HospitalCD4/CD8 ttper1182-33-88 09:53:00 Test Item Value Reference Range Interpretation Comments CD4/CD8 ratio (test code = 64958) 0.73 0.92-3.72 L [facility] Access HospitalT-suppressor cells (CD8) as percent of blood lymphocytes 2015-03-03 09:53:00 Test Item Value Reference Range Interpretation Comments T-suppressor cells (CD8) as percent of 25.7 % 12.0-35.5 blood lymphocytes (test code = 3517) [facility] Hospitalabsolute CZ46983-44-84 09:53:00 Test Item Value Reference Range Interpretation Comments absolute CD8 (test code = 27004) 437 109-897 Critical [facility] HospitalT-helper cells (CD4) as percent of blood lymphocytes 2015-03-03 09:53:00 Test Item Value Reference Range Interpretation Comments T-helper cells (CD4) as percent of 18.7 % 30.8-58.5 L blood lymphocytes (test code = 8123-2) [facility] HospitalT-helper cells (CD4) otxai8610-38-69 09:53:00 Test Item Value Reference Range Interpretation Comments T-helper cells (CD4) count (test code 318 /UL 359-1519 L = 92637-9) [facility]- XR CHEST 1 [id number] 08:19:00 FAX: Yudith Crenshaw [phone] [place]: St: DIS FAX: Manuel Esteban [phone] Name: GUERRERO MURRIETA [facility] : 1960 Age/S: 53/F [address] [facility] Unit #: [id number] Loc: [place], [place]: [place] [address] Acct: Cassidy [id number] Dis Date: Status: DIS IN PHONE #: [phone] Exam Date: 02/27/2014 0810 FAX #: [phone] Reason: COPD EXAMS: CPT CODE: [id number] XR CHEST 1 V 03584 CHEST, FRONTAL VIEW HISTORY: COPD FINDINGS: Since 02/26/14, lungs remain emphysematous and clear. The heart size is normal. Aorta is partially calcified. Minimal degenerative changes affect the thoracic spine. IMPRESSION: No ev idence of acute airspace disease. at 0819 Reported and signed by: Anita Gonzales M.D. CC: Yudith Eastman MD; Manuel Esteban MD Technologist: LEXI VINSON [facility] Date/Time/By: 02/27/2014 (0819) : By: [email or web address] PAGE 1 Signed Report FAX: Yudith Crenshaw [phone] [place]: St: DIS FAX: Manuel Esteban MD [phone] Name: GUERRERO MURRIETA [facility] : 1960 Age/S: 53/F [address] [facility] Unit #: [id number] Loc: [place], [place]: [place] [address] Acct: [id number] Dis Date: Status: DIS IN PHONE #: [phone] Exam Date: 02/27/2014809 FAX #: [phone] Reason: COPD EXAMS: CPT CODE: [id number] XR CHEST 1 V 25878 <Continued> Orig Print D/T: S: 02/27/2014 (821) PAGE 2 Signed Report- XR CHEST 1 [id number] 21:21:00 FAX: Manuel Esteban MD [phone] [place]: St: DIS Name: GUERRERO MURRIETA [facility] : 1960 Age/S: 53/F [address] [facility] [place] Unit#: [id number] Loc: [place], [place]: [place] [address] Acct: [id number] Dis Date: Status: DIS IN PHONE #: [phone] Exam Date: 02/26/2014 1748 FAX #: [phone] Reason: CHEST PAIN EXAMS: CPT CODE: [id number] XR CHEST 1 V 22675 CHEST, FRONTAL VIEW HISTORY: CHEST PAIN FINDINGS: Since 02/03/14, lungs are emphysematous and clear. The heart size is normal. Aorta is partially calcified. The bones are intact. IMPRESSION: No evidence of acute airspace disease. at 2121 Reported and signed by: Anita Gonzales M.D. CC: Manuel Esteban MD Technologist: PEÑA Whitleynekasia Date/Time/By: 02/26/2014 (2120) : By: [email or web address] PAGE 1 Signed Report FAX: Manuel Esteban MD [phone] [place]: St: DIS----- Name: GUERRERO MURRIETA [facility] : 1960 Age/S: 53/F [address] [facility] [employer] Unit #: [id number] Loc: [place], [place]: [place] [address] Acct: [id number] Dis Date: Status: DIS IN PHONE #: [phone] Exam Date: 02/26/2014 1748 FAX #: [phone] Reason: CHEST PAIN EXAMS: CPT CODE: [id number] XR CHEST 1 V 55190 <Continued> Orig Print D/T: S: 02/26/2014 (6) PAGE 2 Signed Report- XR CHEST 1 [id number] 16:54:00 FAX: Amaya Estrada MD [phone] [place]: St: UNK Name: GUERRERO MURRIETA [facility] : 1960 Age/S: 53/F [address] [facility] Unit#: [id number] Loc: [place], [place]: [place] [address] Acct: [id number] Dis Date: Status: UNK PHONE #: [phone] Exam Date: 02/03/2014 1622 FAX #: [phone] Reason: cp EXAMS: CPT CODE: [id number] XR CHEST 1 V 46505 REASON FOR EXAM: Chest pain COMPARISON: 2012. Chest, single view portable The lungs are hyperinflated and clear. Heart size is normal. No effusion or pneumothorax can be seen. Osseous structures appear to be intact. IMPRESSION: No acute cardiopulmonary disease. Hyperinflated lung pattern. at 9725 Reported and signed by: Zoran Fuller M.D. CC: Amaya Estrada MD Technologist: YESY LOCKETT [facility] Date/Time/By: 02/03/2014 (1653) : By: [facility] PAGE 1 Signed Report FAX: Amaya Estrada MD [phone] [place]: St: [facility]------- Name: GUERRERO MURRIETA [facility] : 1960 Age/S: 53/F [address] [facility] Unit #: [id number] Loc: [place], [place]: [place] [address] Acct: [id number] Dis Date: Status: [facility] PHONE #: [phone] Exam Date: 02/03/2014 1622 FAX #: [phone] Reason: cp EXAMS: CPT CODE: [id number] XR CHEST 1 V 12740 <Continued> Orig Print D/T: S: 02/03/2014 (9770) PAGE 2 Signed Report- CT ABD PELVIS W/WYXV7667-04-14 07:54:00 FAX: Julia Burns MD [phone] [place]: St: [facility] Name: GUERRERO MURRIETA [facility] : 1960 Age/S: 52/F [address] [facility] Unit: [id number] Loc: [place], [place]: [place] [address] Acct: [id number] Dis Date: Status: [facility] PHONE #: [phone] Exam Date: 10/18/2013 2345 FAX #: [phone] Reason: gen'd abd pain, IV contrast only EXAMS: CPT CODE: [id number] CT ABD PELVIS W/CONT 18047 HISTORY: Abdominal pain, nausea and vomiting. CT [...] Signed Report (CONTINUED) FAX: Julia Burns MD [phone] [place]: St: [facility] -- Name: GUERRERO MURRIETA [facility] : 1960 Age/S: 52/F [address] [facility] Unit: [id number] Loc: [place], [place]: [place] [address] Acct: [id number] Dis Date: Status: [facility] PHONE #: [phone] Exam Date: 10/18/2013 2342 FAX #: [phone] Reason: gen'dabd pain, IV contrast only EXAMS: CPT CODE: [id number] CT ABD PELVIS W/CONT 25972 <Continued> Electronically Signed by Aureliano Fuller on10/19/2013 at 3340 Reported and signed by: Zoran Fuller M.D. CC: Julia Burns MD Technologist: YESY Ramirez Dt/Tm: 10/19/2013 (0754) t.SDR.RCM Orig Print D/T: S: 10/19/2013 (0758 6.44 321.13 PAGE 2 Signed Report- XR CHEST 1 [id number] 21:46:00 FAX: Alec Damian MD [phone] [place]: St: [facility] FAX: Julia Burns MD [phone] Name: GUERRERO MURRIETA [facility] : 1960 Age/S: 52/F [address] [facility] Unit #: [id number] Loc: [place], [place]: [place] [address] Acct: [id number] Dis Date: Status: [facility] PHONE #: [phone] Exam Date: 10/18/20132131 FAX #: [phone] Reason: abd pain EXAMS: CPT CODE: [id number] XR CHEST 1 V 61676 CHEST, 1 VIEW HISTORY: abd pain FINDINGS: Since 05/18/13, the lungs remain hyperinflated is and clear. No consolidation, pleural effusion or pneumothorax. The heart size is normal. Aorta is partially calcified. The bones are intact. IMPRESSION: No evidence of acute airspace disease. COPD. ElectronicallySigned by Aureliano Gonzales on 10/18/2013 at 5804 Reported and signed by: Anita Gonzales M.D. CC: Alec Damian MD; Julia Burns MD Technologist: PEÑA Whitleynerd Date/Time/By: 10/18/2013 (2145) : By: [email or web address] PAGE 1 Signed Report FAX: Alec Damian MD [phone] [place]: [facility]: [facility] FAX: Julia Burns MD [phone] Name: GUERERRO MURRIETA [facility] : 1960 Age/S: 52/F [address] [facility] Unit #: [id number] Loc: [place], [place]: [place] [address] Acct: [id number] Dis Date: Status: [facility] PHONE #: [phone] Exam Date: 10/18/20132131 FAX #: [phone] Reason: abd pain EXAMS: CPT CODE: [id number] XR CHEST 1 V 92324 <Continued> Orig Print D/T: S: 10/18/2013 (7) PAGE 2 Signed Report- XR CHEST 1 [id number] 10:12:00 FAX: Mikhail Bender MD [phone] [place]: St: [facility] FAX: Yudith Crenshaw [phone] Name: GUERRERO MURRIETA NOLVIA [facility] : 1960 Age/S: 52/F [address] [facility] Unit #: [id number] Loc: [place], [place]: [place] [address] Acct: [id number] Dis Date: Status: UNK PHONE #: [phone] Exam Date: 05/18/2013904 FAX #: [phone] Reason: SOB EXAMS: CPT CODE: [id number] XR CHEST 1 V 02669 REASON FOR EX AM: Shortness of breath [...] MD; Yudith Eastman MD Technologist: ROE GARZA [facility] Date/Time/By: 05/18/2013 (1012) : By: [facility]WE[facility] PAGE 1 Signed Report FAX: Mikhail Bender MD [phone] [place] Yudith Crenshaw [phone] Name: GUERRERO MURRIETA [facility] : 1960 Age/S: 52/F [address] [facility] Unit #: [id number] c: [place], [place]: [place] [address] Acct: [id number] Dis Date: Status: UNK PHONE #: [phone] Exam Date: 05/18/2013904 FAX #: [phone] Reason: SOB EXAMS: CPT CODE: [id number] XR CHEST 1 V 71914 <Continued> Orig Print D/T: S: 05/18/2013 (4565) PAGE 2 Signed Report- MRI BRAIN W WO [id number] 13:45:00 FAX: Mikhail Bender MD [phone] [place]: St: [facility] FAX: Alfred Yudith Choi [phone] Name: GUERRERO MURRIETA [facility] : 1960 Age/S: 52/F [address] [facility] Unit #: [id number] Loc: [place], [place]: [place] [address] Acct: [id number] Dis Date: Status: UNK PHONE #: [phone] Exam Date: 05/15/2013 0951 FAX #: [phone] Reason: ANISOCORIA DIPLOPIS EXAMS: CPT CODE: [id number] MRI BRAIN W WO CONT 88415 CLINICAL HISTORY: Anisocoria, diplopia MRI brain ,with [...] be symmetric. Appropriate flow-void occurs in the [place]. No evidence of hemorrhage seen. [...] Signed Report (CONTINUED) FAX: Mikhail Bender MD [phone] [place]: St: [facility] FAX: Alfred EastmanYudith Catie [phone] Name: GUERRERO MURRIETA [facility] : 1960 Age/S: 52/F [address] [facility] Unit #: [id number] Loc: [place], [place]: [place] [address] Acct: [id number] Dis Date: Status: [facility] PHONE #: [phone] Exam Date: 05/15/2013 0951 FAX #: [phone] Reason: ANISOCORIA DIPLOPIS EXAMS: CPT CODE: [id number] MRI BRAIN W WO CONT 50875 &lt ;Continued> orbit with hypoplastic right maxillary sinus could support sick sinus syndrome. No current obstruction is seen. at 1345 Reported and signed by: Zoran Fuller M.D. CC: Mikhail Lamb MD; Yudith Eastman MD Technologist: MIO RAMIREZ Trnscrd Date/Time/By: 05/15/2013 (8573) : By: [facility]WE[facility] PAGE 2 Signed Report FAX: Mikhail Bender MD [phone] [place]: St:[facility] FAX: Yudith Crenshaw [phone] Name: GUERRERO MURRIETA [facility] : 1960 Age/S: 52/F [address] [facility] Unit #: [id number] Loc: [place], [place]: [place] [address] Acct: [id number] Dis Date: Status: K PHONE #: [phone] Exam Date: 05/15/2013 0951 FAX #: [phone] Reason: ANISOCORIA DIPLOPIS EXAMS: CPT CODE: [id number] MRI BRAIN W WO CONT 35974 <Continued> Orig Print D/T: S: 05/15/2013 (2680) PAGE 3 Signed Report- CT CHEST W/O CONTRAST 2013-05-14 21:40:00 FAX: Mikhail Bender MD [phone] [place]: St: [facility] FAX: Yudith Crenshaw [phone] Name: GUERRERO MURRIETA [place] : 1960 Age/S: 52/F [address] [facility] Unit: [id number] Loc: [place], [place]: [place] [address] Acct: [id number] Dis Date: Status: UNK PHONE #: [phone] Exam Date: 05/14/20131953 FAX #: [phone] Reason: SOB EXAMS: CPT CODE: [id number] CT CHEST W/O CONTRAST 71745 Reason for ex am, shortness of breath, [...] MD; Yudith Eastman MD Technologist: SILVANO WRIGHT Trnnerd Dt/Tm: 05/14/2013 (2139) Malik Orig Print D/T: S: 05/14/2013 (2142 6.89 254.08 PAGE 1 Signed Report- XR CHEST 2 [id number] 17:37:00 FAX: Yudith Crenshaw [phone] [place]: St: UNK Name: GUERRERO MURRIETA [facility] : 1960 Age/S: 52/F [address] [facility] [employer] Unit#: [id number] Loc: [place], [place]: [place] [address] Acct: [id number] Dis Date: Status: UNK PHONE #: [phone] Exam Date: 05/14/2013 1548 FAX #: [phone] Reason: COPD PNEUMONIA EXAMS: CPT CODE: [id number] XR CHEST 2 V 64684 CHEST, 2 VIEWS HISTORY: COPD PNEUMONIA COMPARISON: Chest x- ray 05/12/2013 FINDINGS: The lungs are hyperexpanded. There are bilateral diffuse interstitial markings. No significant pleural effusions. The cardiomediastinal contours are stable. No acute bone abnormality. IMPRESSION: 1.Diffuse interstitial markings likely represent interstitial pneumonia or other interstitial disease. Followup recommended. 2. Findings compatible clinical diagnosis of COPD. at 0100 Reported and signed by: Gonzalo Hall M.D. CC: Yudith Eastman MD Technologist: PEÑA SMITH Trnnerd Date/Time/By: 05/14/2013 (9210) : By: [email or web address] PAGE 1 Signed Report FAX: Yudith Crenshaw [phone] [place]: St: K Name: GUERRERO MURRIETA [facility] : 1960 Age/S: 52/F [address] [facility] [place] [facility] [id number] Loc: [place], [place] Phys: Мар[place] [address] Acct: [id number] Dis Date: Status: [facility] PHONE #: [phone] Exam Date: 05/14/2013 1548 FAX #: [phone] Reason: COPD PNEUMONIA EXAMS: CPT CODE: [id number] XR CHEST 2 V 66201 <Continued> Orig Print D/T: S: 05/14/2013 (4079) PAGE 2 Signed Report- XR CHEST 1 [id number] 16:06:00 FAX: Melida Borges [phone] [place]: St: [facility] Name: GUERRERO MURRIETA [facility] : 1960 Age/S: 52/F [address] [facility] [employer] Unit#: [id number] Loc: [place], [place]: [place] [address] Acct: [id number] Dis Date: Status: [facility] PHONE #: [phone] Exam Date: 05/12/2013 1547 FAX #: [phone] Reason: copd/cough, shortness of breath EXAMS: CPT CODE: [id number] XR CHEST 1 V 08848 REASON FOR EXAM: Cough, COPD, shortness of breath COMPARISON: October 18, 2012. Chest, single view portable The lungs are hyperinflated consistent with COPD. More but no infiltrates are appreciated focally. Heart size is intact.. No effusion or pneumothorax can be seen. Osseous structures appear to be intact. IMPRESSION: COPD changes. Interstitial patterncould indicate interstitial pneumonia/ disease or non-cardiogenic edema. at 6602 Reported and signed by: Zoran Fuller M.D. CC: Melida Singh Technologist: LEXI HOLCOMB Trnscrd Date/Time/By: 05/12/2013 (9780) : By: Malik PAGE 1 Signed Report FAX: Melida Borges [phone] [place]: St: UNK ------ Name: GUERRERO MURRIETA [facility] : 1960Age/S: 52/F [address] [facility] [employer] Unit #: [id number] Loc: [place], [place]: [place] [address] Acct: [id number] Dis Date: Status: UNK PHONE #:[phone] Exam Date: 05/12/2013 1547 FAX #: [phone] Reason: copd/cough, shortness of breath EXAMS: CPT CODE: [id number] XR CHEST 1 V 15885 <Continued> Orig Print D/T: S: 05/12/2013 (9424) PAGE 2 Signed Report- CT ABD PELVIS W/[id number] 17:45:00 FAX: Bossman Nassar MD [place]: St: UNK Name: GUERRERO MURRIETA [facility] : 1960 Age/S: 51/F [address] [facility] Unit: [id number] Loc: [place], [place]: [place] [address] Acct: [id number] Dis Date: Status: UNK PHONE #: [phone] Exam Date: 12/20/2012 1729 FAX #: [phone] Reason: generalized abd pain EXAMS: CPT CODE: [id number] CT ABD PELVIS W/CONT 83906 HISTORY: Generalized abdominal pain. CT abdomen contrast- [...] Signed Report (CONTINUED) FAX: Bossman Nassar MD [place]: St: [facility] Name: GUERRERO MURRIETA [facility] : 1960 Age/S: 51/F [address] [employer] Unit: [id number] Loc: [place], [place]: [place] [address] Acct: [id number] Dis Date: Status: UNK PHONE #: [phone] Exam Date: 12/20/2012 1729 FAX #: Reason: generalized abd pain EXAMS: CPT CODE: [id number] CT ABD PELVIS W/CONT 62030 <Continued> CONCLUSION: No acute abnormality in the deep pelvis. Hysterectomy. Sigmoid diverticulosis without obvious active disease. Limited bowel loop assessment however. at 4105 Reported and signed by: RobertC. Alina M.D. CC: Bossman Nassar MD Technologist: SILVANO WRIGHT Trnscrd Dt/Tm: 12/20/2012 (6433) t.IFEOMA Orig Print D/T: S: 12/20/2012 (7409 PAGE 2 Signed Report- XR CHEST 2 [id number] 14:58:00 FAX: Bossman Nassar MD [facility]: St: [facility] Name: GUERRERO MURRIETA [facility] : 1960 Age/S: 51/F [address] Unit#: [id number] Loc: [place], [place]: [place] [address] Acct: [id number] Dis Date: Status: [facility] PHONE #: [phone] Exam Date: 10/18/2012 1416 FAX #: [phone] Reason: cough, fever EXAMS: CPT CODE: [id number] XR CHEST 2 V 55248 CHEST, 2 VIEWS HISTORY: cough, fever FINDINGS: Since 09/18/12, minimal atelectasis is noted in the left lower lobe. The previously seen faint density in the lung base has resolved. The lungs are otherwise clear. The heart size is normal. Minimal degenerative changes affect the thoracic spine. IMPRESSION: Aside from minimal atelectasis, no evidence of acute airspacedisease. at 7727 Reported and signed by: Anita Gonzales M.D. CC: Bossman Nassar MD Technologist: ANITA Ramirez Date/Time/By: 10/18/2012 (4291) : By: [email or web address] PAGE 1 Signed Report FAX: Bossman Belcher MD [facility]: St: [facility] Name: GUERRERO MURRIETA [facility] : 1960 Age/S: 51/F [address] [facility] Unit #: [id number] Loc: [place], [place]: [place] [address] Acct: [id number] Dis Date: Status: UNK PHONE #: [phone] Exam Date: 10/18/2012 1416 FAX#: [phone] Reason: cough, fever EXAMS: CPT CODE: [id number] XR CHEST 2 V 73190 <Continued> Orig Print D/T: S: 10/18/2012 (1507) PAGE 2 Signed Report- XR CHEST 1 [id number] 13:03:00 [facility]: St: [facility] Name: GUERRERO MURRIETA [facility] : 1960 Age/S: 51/F [address] Unit#: [id number] Loc: [place], [place]: [place] [id number] Acct: [id number] Dis Date: Status: [facility] PHONE #: [phone] Exam Date: 09/18/2012 1234 FAX #: [phone] Reason: CHEST PAIN EXAMS: CPT CODE: [id number] XR CHEST 1 V 39922 CHEST, 1 VIEW HISTORY: chest pain. FINDINGS: [...] M.D. CC: Technologist: ADELA Ramirez Date/Time/By: 09/18/2012 (5251) : By: [email or web address] PAGE 1 Signed Report [facility]: St: [facility] Name: GUERRERO MURRIETA [facility] : 1960 Age/S: 51/F [address] Unit #: [id number] Loc: [place], [place]: [place] [address] Acct: [id number] Dis Date: Status: [facility] PHONE #: [phone] Exam Date: 09/18/2012 1234 FAX #: [phone] Reason: CHEST PAIN EXAMS: CPT CODE: [id number] XR CHEST 1 V 50442 <Continued> Orig Print D/T: S: 09/18/2012 (8847) PAGE 2 Signed Report- CT HEAD/BRAIN W/O [id number] 11:38:00 [facility]: St: [facility] Name: GUERRERO MURRIETA [facility] : 1960 Age/S: 51/F [address] [place] [facility] Unit: [id number] Loc: [place], [place]: [place] [address] Acct: [id number] Dis Date: Status: UNK PHONE #: [phone] Exam Date: 09/18/2012 1135 FAX #: [phone] Reason: dizzy EXAMS: CPT CODE: [id number] CT HEAD/BRAIN W/O CONT 16015 HISTORY: Dizziness. TECHNIQUE: Axial noncontrastCT images of [...] IMPRESSION: No acute intracranial findings . at 113 Reported and signed by: Colt Sorensen CC: Technologist: ARIEL KERR Trnscrd Dt/Tm: 09/18/2012 (5503) Chris Orig Print D/T: S: 09/18/2012 (6163 PAGE 1 Signed Report
--- OUTSIDE RECORDS SUMMARY | 2020-10-07 19:22 | XMS REPORT ---
:1960 Author Name Messaging, Secure Address Unavailable Unavailable , Care Team Providers Name Role Phone Zahraa Husam Unavailable [phone] PROBLEMS Condition Status Date Provider Notes NONSPEC RXN CMI MSR G-IFN ANTIG RSPN NO ACT TB active Husam Vital DIZZINESS active Husam Vital Hyperlipidemia active Husam Vital Preventive health care active Husam Vital Screening, colon cancer active Husam Vital Hip arthralgia active Husam Vital COPD active Husam Vital ENCOUNTERS Date Type Provider Location Encounter Diagn osis - Ambulatory [facility] Care Coordination UNK Encounter Desktop Marlee Garcia - Ambulatory Tai Dugan UNK Encounter Teresa - Ambulatory Clarence Mcnamara UNK Encounter - Ambulatory Husam RAPPK Encounter Zahraa LinkLogic - Ambulatory Husam Weiner UNK Encounter Zahraa - Ambulatory Husam RAPPK Encounter Zahraa [place] - Ambulatory Husam RAPPK Encounter Zahraa LinkLogic - Ambulatory Husam RAPPK Encounter Zahraa LinkLogic - Ambulatory Husam RAPPK Encounter Zahraa - Ambulatory Husam Weiner NONSPEC RX N CMI MSR Encounter Zahraa Lujan G-IFN ANTIG RSPN NO ACT Dugan Teresa TB - Ambulatory Nkechi [place] UNK Encounter - Ambulatory Husam Antoniokellie Weiner UNK Encounter Nemecekellie LinkLogic - Ambulatory Husam Estrelladaviekellie Weiner UNK Encounter Nemecekellie LinkLogic Nkechi [place] - Ambulatory Husam Alvarezkellie Husam UNK Encounter Nemecek LinkLogic - Ambulatory Husam Estrellaandrew Weiner UNK Encounter Nemdaviek - Ambulatory Husam Zahraa Husam UNK Encounter Nemecek Nkechi [place] Tai Dugan Teresa - Ambulatory Marleerogelio Oconnor UNK Encounter - Ambulatory Husam Weiner UNK Encounter Nemandrew LinkLogic - Ambulatory Husam Weiner UNK Encounter Nemecek LinkLogic - Ambulatory Husam Estrellaandrew Weiner UNK Encounter Nemecekellie LinkLogic - Ambulatory Palmer Garcia UNK Encounter - Ambulatory Husam Weiner UNK Encounter Nemdaviek - Ambulatory Husam Weiner UNK Encounter Nemdaviekellie DewittNkechi Montana - Ambulatory Meka [place] UNK Encounter - Ambulatory Fax Status LinkLogic UNK Encounter - Ambulatory Husam Weiner UNK Encounter Nemecekellie LinkLogic - Ambulatory Husam Weiner UNK Encounter Nemecekellie LinkLogic - Ambulatory Husam Weiner UNK Encounter Nemecekellie LinkLogic - Ambulatory Husam Weiner UNK Encounter Nemandrew - Ambulatory Husam Weiner UNK Encounter Nemecek - Ambulatory Husam Weiner UNK Encounter Nemandrew Valentine Lucas - Ambulatory Marlee Oconnor UNK Encounter - Ambulatory Marlee Oconnor UNK Encounter - Ambulatory Marlee Oconnor UNK Encounter - Ambulatory Husam Weiner UNK Encounter Nemecek LinkLogic - Ambulatory Marlee Oconnor UNK Encounter Hassaviva Pearce - Ambulatory Husam Weiner UNK Encounter Nemecek - Ambulatory Marlee Oconnor UNK Encounter - Ambulatory Husam Weiner UNK Encounter Nemecekellie LinkLogic - Ambulatory Husam Weiner UNK Encounter Nemecek LinkLogic - Ambulatory Husam Weiner UNK Encounter Nemecekellie - Ambulatory Husam Weiner UNK Encounter Nemecekellie LinkLogic - Ambulatory Fax Status LinkLogic UNK Encounter - Ambulatory Husam Weiner UNK Encounter Nemdaviekellie - Ambulatory Husam Vital Husam Encounter Nemdaviekellie Obrien - Ambulatory Marlee Oconnor UNK Encounter - Ambulatory Marlee Oconnor UNK Encounter Luci Ríos - Ambulatory Marcelle Rosas UNK Encounter - Ambulatory Fax Status LinkLogic UNK Encounter - Ambulatory Fax Status LinkLogic UNK Encounter - Ambulatory Fax Status LinkLogic UNK Encounter - Ambulatory Husam Weiner DIONTEK Encounter Nemdaviekellie - Ambulatory Husam Zahraa RAPPK Encounter Nemdaviekellie - Ambulatory Husam Weiner Hyperlipid emia Encounter Zahraa Nkechijohn Haleymartha Del CastilloPillaichristine Velazco - Ambulatory Choice UNK Encounter Danish - Ambulatory Husam RAPPK Encounter Nemandrew LinkLogic - Ambulatory Marcelle Rosas UNK Encounter - Ambulatory Husam Weiner UNK Encounter Antoniokellie Leigha Cooper - Ambulatory Veritodominguez Hugo UNK Encounter - Ambulatory Vanessa Zarate UNK Encounter - Ambulatory Husam RAPPK Encounter Nemdaviek - Ambulatory Jose Hu Marcelle UNK Encounter Rosas - Ambulatory Marcelle Rosas UNK Encounter - Ambulatory Marcelle Rosas UNK Encounter - Ambulatory Angeles Rakesh UNK Encounter - Ambulatory Husam MEDINA Encounter Nemandrew BustosLogdeb - Ambulatory Luann Hugo UNK Encounter - Ambulatory Husam MEDINA Encounter Nemandrew - Ambulatory Husam MEDINA Encounter Zahraa - Ambulatory Husam Weiner Encounter Zahraa Velazco - Ambulatory Choice UNK Encounter Danish - Ambulatory Husam RAPPK Encounter Zahraa Centeno - Ambulatory Husam Weiner UNK Encounter Nemandrew Ema Rosas Fonseca - Ambulatory Husam Weiner UNK Encounter Nemandrew Velazco - Ambulatory Husam Weiner UNK Encounter Nemandrew AkashLogdeb - Ambulatory Husam Weiner UNK Encounter Nemecek - Ambulatory Husam Weiner UNK Encounter Nemdaviek - Ambulatory Husam Weiner DIZZINESS Encounter Zahraa Dewittjohn Montana - Ambulatory Choice UNK Encounter Danish - Ambulatory Husam Weiner UNK Encounter Nemdaviek - Ambulatory uHsam Weiner UNK Encounter Nemdaviek - Ambulatory Husam Weiner Hyperlipid emia Encounter Zahraa Iesha Lucas - Ambulatory Choice UNK Encounter Danish - Ambulatory Marcelle Rosas UNK Encounter - Ambulatory Marcelle Rosas UNK Encounter - Ambulatory Bailee Rae UNK Encounter - Ambulatory Bailee Rae UNK Encounter - Ambulatory Husam Weiner UNK Encounter Nemandrew AkashLogdeb - Ambulatory Husam Weiner DIONTEK Encounter Nemandrew - Ambulatory Marcelle Rosas UNK Encounter Beau Rodriguez - Ambulatory Marcelle Rosas UNK Encounter - Ambulatory Shaye MEDINA Encounter Ángel Rodriguez - Ambulatory Bailee Rae UNK Encounter - Ambulatory Husam Weiner UNK Encounter Nemandrew Marroquin Langston - Ambulatory Bailee Rae UNK Encounter Baltazar Romanirez - Ambulatory Terlin Saman UNK Encounter - Ambulatory Husam Weiner UNK Encounter Nemecek - Ambulatory Husam Weiner UNK Encounter Nemecek - Ambulatory Husam Weiner UNK Encounter Nemandrew Nkechi Jeronimoila - Ambulatory Richar UNK Encounter Danish - Ambulatory Husam Weiner UNK Encounter Nemandrew Neal - Ambulatory Husam Weiner UNK Encounter Nemecek LinkLogic - Ambulatory Malu Hurst UNK Encounter - Ambulatory Husam Weiner UNK Encounter Nemecekellie LinkLogic - Ambulatory Malu Hurst UNK Encounter - Ambulatory Remy Perdomo LinkLogic UNK Encounter - Ambulatory Husam Weiner UNK Encounter Nemecek - Ambulatory Husam Weiner UNK Encounter Nemecek - Ambulatory Husam Weiner Preventive health care Encounter Nemecekellie Nkechi Jeronimoila - Ambulatory Husam Weiner UNK Encounter Nemecek LinkLogic - Ambulatory Husam Weiner UNK Encounter Nemecek LinkLogic - Ambulatory Tara Haley UNK Encounter - Ambulatory Malu Hurst UNK Encounter - Ambulatory Fax Status LinkLogic UNK Encounter - Ambulatory Fax Status LinkLogic UNK Encounter - Ambulatory Husam Weiner UNK Encounter Nemecek - Ambulatory Husam Weiner UNK Encounter Nemecek - Ambulatory Husam Weiner Screening, colon cancer Encounter Nemecekellie Nkechi [place] Molly Velazco - Ambulatory Remy Perdomo LinkLogic UNK Encounter - Ambulatory Chiara Diallo UNK Encounter - Ambulatory Husam Weiner UNK Encounter Nemecek - Ambulatory Husam Weiner UNK Encounter Nemecek - Ambulatory Husam Weiner Hip arthra lgia Encounter Nemecekellie Nkechi [place] - Ambulatory Husam Weiner UNK Encounter Nemecekellie LinkLogic - Ambulatory Dilma Hunt UNK Encounter - Ambulatory Remy Perdomo UNK Encounter - Ambulatory Remy Perdomo Jo UNK Encounter Leonard - Ambulatory Husam Weiner UNK Encounter Nemandrew LinkLogic - Ambulatory Husam Weiner UNK Encounter [...] Zee Michael UNK Encounter - Ambulatory Zee Tenafly UNK Encounter - Ambulatory Husam Weiner UNK Encounter Nemecek - Ambulatory Husam Weiner UNK Encounter Nemecekellie DewittNkechi Montana - Ambulatory Husam Weiner UNK Encounter Nemecek LinkLogic - Ambulatory Husam Weiner UNK Encounter Nemecek LinkLogic - Ambulatory Husam Weiner UNK Encounter Nemecek LinkLogic - Ambulatory Husam Weiner UNK Encounter Nemecek LinkLogic - Ambulatory Husam Weiner UNK Encounter Nemecek LinkLogic - Ambulatory Zee Michael UNK Encounter LinkLogic - Ambulatory Zee Michael UNK Encounter - Ambulatory Husam Weiner UNK Encounter Nemecek LinkLogic - Ambulatory Husam Weiner UNK Encounter Nemecek LinkLogic - Ambulatory Husam Weiner COPD Encounter Nemecek Lexy Lucas - Ambulatory Sammie Sparks UNK Encounter - Ambulatory Sammie Sparks UNK Encounter LinkLogic - Ambulatory Deidra Wells UNK Encounter - Ambulatory Elodia Cespedes UNK Encounter LinkLogic - Ambulatory Elodia Cespedes UNK Encounter LinkLogic - Ambulatory Elodia Cespedes UNK Encounter LinkLogic - Ambulatory Elodia Srivastava UNK Encounter Wozencraft - Ambulatory Husam Weiner UNK Encounter Nemandrew LinkLogic VITAL SIGNS Date Observation Value Provider oxygen saturation, oximetry 95 % Azuc nikolai [place] " method used [...] to obtain blood pressure automatic Tai Dugan Tereas " Blood Pressure Position 01 sitting Michelle rdo Dugan Teresa " blood pressure, site [...] weight in kilograms E&M 77.09 kg Tai Dugan Teresa " method used to obtain blood pressure automatic Tai Dugan Teresa " Blood Pressure Position 01 sitting Michelle rdo Dugan Teresa " blood pressure, site #1 left arm Tai Dugan Teresa " temperature site oral Tai Contre reynold Teresa " height E&M 62 [in_i] Tai Contrer as Teresa " height in centimeters E&M 157.48 cm Leonefrain do Dugan Teresa oxygen saturation, oximetry 89 % Azuc nikolai [place] " pulse rate 95 /min Nkechi [place] " temperature site oral [...] " blood pressure, systolic 110 mm[Hg] Valentine Lance " oxygen saturation, oximetry 89 % Kaleigh Lucas " pulse rate 126 /min Valentine Lucas " temperature E&M 98.6 [degF] Valentine Lance " weight E&M 189.13 lbs. Valentine Lucas [...] rate E&M 16 /min Sisi J Lb meadam " pulse rate 78 /min Sisi J Obrien " temperature E&M 98.2 [degF] Sisi J Obrien " blood pressure, diastolic 73 mm[Hg] Sisi J Obrien " blood pressure, systolic 96 mm[Hg] Sisi J Obrien " weight E&M 188.25 lbs. Sisi J Obrien " weight in kilograms E&M 85.57 kg Sisi J Obrien " method used to obtain blood pressure automatic Sisi J Obrien " Blood Pressure Position 01 sitting Tamar e Catie Obrien " blood pressure, site #1 left arm Sisialexander Obrien " temperature site oral Sisi J Obrien " height E&M 62 [in_i] Sisi J Obrien " height in centimeters E&M 157.48 cm Sisialexander Garnettz pulse rate 120 /min Nkechi [place] " [...] " Blood Pressure Position 01 sitting Iesha Lance " blood pressure, site #1 right arm Iesha negrete " temperature site tympanic Iesha Lucas " height E&M 62 [in_i] Iesha Lucas " height in centimeters E&M 157.48 cm Iesha whitneyandez blood pressure, diastolic 60 mm[Hg] Azucen a [...] Valle " blood pressure, diastolic 76 mm[Hg] eBrnard Valle " blood pressure, systolic 112 mm[Hg] [...] " weight in kilograms E&M 57.91 kg Nkechi [place] " height E&M 62 [...] blood pressure, site #1 right arm Valentine H ailyn " temperature site temporal Valentine medina ALLERGIES [...] serum " eGFR if 110 LinkLogic >59 Mauritian mL/min/((17 3/100).m2) " Estimated 96 LinkLogic >59 [...] serum " eGFR if 100 LinkLogic >59 Mauritian mL/min/((17 3/100).m2) " Estimated 87 LinkLogic >59 [...] count Quantiferon Gold TB Positive LinkLogic Negative blood test for tuberculosis screening hepatitis C [...] serum " eGFR if 118 LinkLogic >59 Mauritian mL/min/((17 3/100).m2) " Estimated 102 LinkLogic >59 [...] serum " eGFR if 115 LinkLogic >59 Mauritian mL/min/((17 3/100).m2) " Estimated 100 LinkLogic >59 [...] 3.77-5.28 count X10E6/UL " leukocyte count, 7.1 LinkLog 3.4-10.8 blood X10E3/UL " CD4/CD8 ratio 1.00 LinkLogic 0.92-3.72 " T-suppressor cells 27.5 % LinkLogic 12.0-35.5 (CD8) as percent of blood lymphocytes " absolute CD8 385 LinkLogic 109-897 " T-helper cells 27.5 % LinkLogic 30.8-58.5 Low (CD4) as percent of blood lymphocytes " T-helper cells 385 /UL LinkLogic [id number] (CD4) count LDL cholesterol, 58 mg/dL LinkLog 0-99 /11 serum " very low density 35 mg/dL LinkLogic 5-40 lipoproteins " HDL cholesterol, 34 mg/dL LinkLogic >39 Low serum " triglyceride, 174 mg/dL LinkLogic 0-149 High serum, fasting " cholesterol, serum 127 mg/dL LinkLogic [phone]/03 rapid plasma reagin Non LinkLogic Non Reactive [...] serum " eGFR if 113 LinkLogic >59 Mauritian mL/min/((17 3/100).m2) " Estimated 98 LinkLogic >59 [...] fasting " cholesterol, serum 119 mg/dL LinkLogic [phone]/10 [facility] blood test for tuberculosis screening Quantiferon Gold TB negative [facility] blood test for tuberculosis screening hepatitis C 0.3 LinkLogic 0.0-0.9 antibody, serum " rapid plasma [...] serum " eGFR if 98 LinkLogic >59 Mauritian mL/min/((17 3/100).m2) " Estimated 85 LinkLogic >59 [...] serum " eGFR if 111 LinkLogic >59 Mauritian mL/min/((17 3/100).m2) " Estimated 96 LinkLogic >59 [...] LinkLog 34.0-46.6 " hemoglobin, blood 14.0 g/dL LinkLog 11.1-15.9 " erythrocyte (RBC) 4.09 LinkLogic 3.77-5.28 count X10E6/UL " leukocyte count, 5.1 LinkLogic 3.4-10.8 blood X10E3/UL " CD4/CD8 ratio 0.85 LinkLog 0.92-3.72 Low " T-suppressor cells 29.5 % LinkLogic 12.0-35.5 (CD8) as percent of blood lymphocytes " absolute CD8 413 LinkLogic 109-897 " T-helper cells 25.0 % LinkLog 30.8-58.5 Low (CD4) as percent of blood lymphocytes " T-helper cells 350 /UL LinkLog [phone] Low (CD4) count rapid plasma reagin Non LinkLogic Non Reactive /16 antibody, serum Reactive " HIV-1RNA, serum, by 50 /mL [facility] PCR, quantitative " LDL cholesterol, 63 [...] serum " eGFR if 86 LinkLogic >59 Mauritian mL/min/((17 3/100).m2) " Estimated 74 LinkLogic >59 [...] g/dL LinkLogic 11.1-15.9 " erythrocyte (RBC) 4.30 LinkLog 3.77-5.28 count X10E6/UL " leukocyte count, 7.7 [...] antibody, serum Reactive " [place] [address] /mL LinkLog PCR, quantitative " LDL cholesterol, [...] serum " eGFR if 102 LinkLogic >59 Mauritian mL/min/((17 3/100).m2) " Estimated 89 LinkLogic >59 [...] rapid plasma reagin Non LinkLogic Non Reactive /04 antibody, serum Reactive " HIV-1RNA, serum, by [...] serum " eGFR if 106 LinkLogic >59 Mauritian mL/min/((17 3/100).m2) " Estimated 92 LinkLogic >59 [...] Low (CD4) count Quantiferon Gold TB Negative LinkLog Negative /22 blood test for tuberculosis screening " rapid plasma reagin Non LinkLog Non Reactive antibody, serum Reactive " HIV-1RNA, [...] serum " eGFR if 100 LinkLogic >59 Mauritian mL/min/((17 3/100).m2) " Estimated 87 LinkLogic >59 [...] Reactive " HIV-1RNA, serum, by 30 /mL LinkLog PCR, quantitative " LDL cholesterol, 82 mg/dL [...] serum " eGFR if 117 LinkLogic >59 Mauritian mL/min/((17 3/100).m2) " Estimated 102 LinkLogic >59 [...] rapid plasma reagin Non LinkLog Non Reactive /01 antibody, serum Reactive " [...] serum " eGFR if 117 LinkLogic >59 Mauritian mL/min/((17 3/100).m2) " Estimated 102 LinkLogic >59 [...] / antigen B57 Quantiferon Gold TB [facility] / blood test for tuberculosis screening " HIV-1RNA, [...] serum " eGFR if 113 LinkLogic >59 Mauritian mL/min/((17 3/100).m2) " Estimated 98 LinkLogic >59 [...] serum " eGFR if 105 LinkLogic >59 Mauritian mL/min/((17 3/100).m2) " Estimated 91 LinkLogic >59 [...] 1 mL [id number] completed pneumovax 0.5 mL [id number] completed HISTORY OF MEDICATION USE Medication Instructions Dates Provider Comments BUPROPION HCL 75 MG 1 By Mouth Twice a Day Husam hopkins ORAL TABLET TRAMADOL HCL 50 MG ORAL 1 Three Times a Day Husam whitehead TABLET TRILEPTAL 150 MG ORAL 1 Twice [...] mouth twice a day Husam De La Rosaec ek TABLET DELAYED RELEASE BREO ELLIPTA 100-25 [...] Date Observation Value Provider time of call 09/24/2020 2:27 PM Nadeen russell time of call 06/16/2020 1:54 PM Clarence Mcnamara tobacco use (cigarettes, Currently Nkechi [place] cigar, chew, pipe) " smoking status current every day smoker Nkechi [place] " social history E&M . N Nkechi [place] ot homeless. Born in [facility]. City: [place]. State: [place]. N ot employed. Gender of partner(s): male. Sexually Active: No. Sex at : female. " social history reviewed reviewed today Nkechi [place] E&M " Exercise Program Referral T Froilan [place] " Weight Management T Nkechi [place] Counseling Provided " Nutrition intervention T Nkechi robertson sexual orientation Heterosexual Husam Vital " smoking, advice to quit Yes Husam Nem ecek " assessment of health Limited Tai Co ntreras literacy ([facility] 2013 [place] Standards, 3C10) " is there any chance that No Gary o Dugan you could be ? " passive cigarette smoke No Tai Dugan [...] current every day smoker Gary o Dugan " social history E&M . N Tai Dugan ot homeless. Born in [facility]. Teresa City: [place]. State: [place]. N ot employed. Gender of partner(s): male. Sexually Active: No. Sex at : female. " social history reviewed reviewed today Tai Dugan E&M Teresa " Exercise Program Referral T Warrenefrain do Dugan " Weight Management T Tai Contr eras Counseling Provided " Nutrition intervention T Tai Dugan Teresa smoking, advice to quit Yes Husam Nem ecek " drug use, illicit Previously Tai Contr eras " alcohol use Previously Tai Contrer as " social history E&M . N Tai Dugan ot homeless. Born in [facility]. Teresa City: [place]. State: [place]. N ot employed. Gender of partner(s): male. Sexually Active: No. Sex at : female. " social history reviewed reviewed today Tai Dugan E&M Teresa " assessment of health Limited Tai Co ntreras literacy ([facility] 2013 [place] Standards, 3C10) " sexual orientation Heterosexual Tai Cont reras " is there any chance that No Gary o Dugan you could be ? Teresa " passive cigarette smoke No Tai Dugan exposure Teresa " smoking status current every day smoker Gary o Dugan Teresa " Exercise Program Referral T Warrenar do Dugan Teresa " Weight Management T Tai Contr eras Counseling Provided Teresa " Nutrition intervention T Tai Dugan Teresa sexual orientation Heterosexual Husam Vital " smoking, advice to quit Yes Husam Nem ecek " assessment of health Limited Nkechi Phani [place] literacy ([facility] 2014 Standards, 3C10) " smoking status current every day smoker Nkechisharita [place] " drug use, illicit Previously Nkechi [place] " alcohol use Previously Nkechi [place] " social history E&M . N Nkechi [place] ot homeless. Born in [place]. City: [place]. State: [place]. N ot employed. Gender of partner(s): male. Sexually Active: No. Sex at : female. " social history reviewed reviewed today Nkechi [place] E&M " Exercise Program Referral T Azucen a [place] " Weight Management T Nkechi [place] Counseling Provided " Nutrition intervention T Nkechi So robertson time of call 06/06/2019 3:18 PM Meka Nan sexual orientation Heterosexual Husam Vital " smoking, advice to quit Yes Husam Nem ecek " drug use, illicit Previously Valentine Valentin ez " alcohol use Previously Valentine Lance " social history E&M . N Valentine Lucas ot homeless. Born in [place] City: [place]. State: [place]. N ot employed. Gender of partner(s): male. Sexually Active: No. Sex at : female. " social history reviewed reviewed today Valentine robertson E&M " is there any chance that No Valentine Lance you could be ? " assessment of health Limited Valentine spear literacy ([facility] 2014 Standards, 3C10) " Exercise Program Referral T Valentine Lucas " Weight Management T Valentine Hernand ez Counseling Provided " Nutrition intervention T Valentine cook " passive cigarette smoke No Valentine robertson exposure " smoking status current every day smoker Valentine Lucas time of call 12/25/2018 10:52 AM Franklinaviva Roxana estrada sexual orientation Heterosexual Husam Vital " smoking, advice to quit Yes Husam Nem ecek " Exercise Program Referral T Husam Norbert fairchild " Weight Management T Husam Vital Counseling Provided " Nutrition intervention T Husam Angelo man " drug use, illicit Previously Sisi J Obrien " alcohol use Previously Sisi J Obrien " social history E&M . N Sisialexander Ashermez ot homeless. Born in [place] City: [place]. State: [place]. N ot employed. Gender of partner(s): male. Sexually Active: No. Sex at : female. " social history reviewed reviewed today Sisi Catie Micah E&M " passive cigarette smoke No Sisi Catie AsherObrien exposure " smoking status current every day smoker Sisi Obrien sexual orientation Heterosexual Husam Vital " smoking, advice to quit Yes Husam Nem ecek " drug use, illicit Previously Nkechi [place] " alcohol use Previously Nkechi [place] " social history E&M . N Nkechi [place] ot homeless. Born in [place] City: [place]. State: [place]. N ot employed. Gender of partner(s): male. Sexually Active: No. Sex at : female. " social history reviewed reviewed today Nkechi [place] E&M " passive cigarette smoke Yes Nkechi [place] exposure " smoking status current every day smoker Nkechi [place] " assessment of health Limited Nkechi Phani [place] literacy ([facility] 2014 Standards, 3C10) " Exercise Program Referral T Azucen a [place] " Weight Management T Nkechi [place] Counseling Provided " Nutrition intervention T Nkechi robertson smoking, advice to quit Yes Husam Nem ecek " sexual orientation Heterosexual Husam Vital " passive cigarette smoke No Nkechi [place] exposure " assessment of health Limited Nkechi Phani [place] literacy ([facility] 2014 Standards, 3C10) " smoking status current every day smoker Nkechi [place] " drug use, illicit Previously Nkechi [place] " alcohol use Previously Nkechi [place] " social history E&M . N Nkechi [place] ot homeless. Born in [place] City: [place]. State: [place]. N ot employed. Gender of partner(s): male. Sexually Active: No. Sex at : female. " social history reviewed reviewed today Nkechi [place] E&M " Exercise Program Referral T Azucen a [place] " Weight Management T Nkechi [place] Counseling Provided " Nutrition intervention T Nkechi robertson smoking, advice to quit Yes Husam Nem ecek " drug use, illicit Previously Nkechi [place] " alcohol use Previously Nkechi [place] " cigarettes, number smoked 5-6 Azucen a [place] per day " social history E&M . N Nkechi [place] ot homeless. Born in [place] City: [place]. State: [place]. N ot employed. Gender of partner(s): male. Sexually Active: No. Sex at : female. " social history reviewed reviewed today Nkechi [place] E&M " smoking status current every day smoker Nkechi [place] " is there any chance that No Nkechi [place] you could be ? " passive cigarette smoke No Nkechi [place] exposure " assessment of health Adequate Nkechi Phani [place] literacy ([facility] 2014 Standards, 3C10) social history E&M . N Husam De La Rosaecek ot homeless. Born in [place] City: [place]. State: [place]. N ot employed. Gender of partner(s): male. Sexually Active: No. Sex at : female. " social history reviewed reviewed today Husam Nem ecek E&M " smoking, advice to quit Yes Husam Nem ecek " Exercise Program Referral T Husam fairchild " Weight Management T Husam Vital Counseling Provided " Nutrition intervention T Husam conway " drug use, illicit Previously Gwynn Oak Lance " alcohol use Previously Gwynn Oak Lance " cigarettes, number smoked 10 a day Gwynn Oak H ailyn per day " smoking status current every day smoker Iesha He rnandez " sexual orientation Heterosexual Gwynn Oak Anup z " passive cigarette smoke No Iesha Her nandez exposure " assessment of health Adequate Husam De La Rosaece kellie literacy ([facility] 2014 Standards, 3C10) smoking, advice to quit Yes Husam Nem ecek " drug use, illicit Previously Nkechi [place] " alcohol use Previously Nkechi [place] " social history E&M . N Nkechi [place] ot homeless. Born in [place] City: [place]. State: [place]. N ot employed. Gender of partner(s): male. Sexually Active: No. Sex at : female. " social history reviewed reviewed today Nkechi [place] E&M " is there any chance that No Nkechi [place] you could be ? " sexual orientation Heterosexual Nkechi Davil a " smoking status current every day smoker Nkechi [place] " assessment of health Adequate Nkechi Phani [place] literacy ([facility] 2014 Standards, 3C10) " Exercise Program Referral T Azucen a [place] " Weight Management T Nkechi [place] Counseling Provided " Nutrition intervention T Nkechi D ailyn sexual orientation Heterosexual Husam Vital " smoking, advice to quit Yes Husam Nem ecek " drug use, illicit Previously Nkechi [place] " alcohol use Previously Nkechi [place] " social history E&M . N Nkechi [place] ot homeless. Born in [place]. City: [place]. State: [place]. N ot employed. Gender of partner(s): male. Sexually Active: No. Sex at : female. " social history reviewed reviewed today Nkechi [place] E&M " passive cigarette smoke No Nkechi [place] exposure " smoking status current every day smoker Nkechi [place] " Exercise Program Referral T Azucen sean [place] " Weight Management T Nkechi [place] Counseling Provided " Nutrition intervention T Nkechi D robertson chewing tobacco use No Malu Hu rst " cigar use No Maul Hurst " cigarette use Yes Malu Hurst [...] [place] ot homeless. Born in [place] City: [place]. State: [place]. N ot employed. Gender of [...] Program Referral Jamin fairchild " Weight Management T Husam Vital Counseling Provided " Nutrition intervention Jamin conway " alcohol use Previously Nkechi [place] " social history E&M . N Nkechi [place] ot homeless. Born [place] City[place]. State: [place]. N ot employed. Gender of partner(s): male. [...] smoker Nkechi [place] drug use, illicit Previously Channin Johnso norbert " alcohol use Previously Channin Leonard " cigarettes, number smoked 1-2 Channi n Leonard per day " smoking status current every day smoker Channin Leonard sexual orientation Heterosexual Husam Vital " social history E&M . N Husam Vital ot homeless. Born in [place] City: [place]. State: [place]. N ot employed. Gender of [...] [place] ot homeless. Born in [place] City[place]. State: [place]. N ot employed. Gender of partner(s): male. Sexually Active: No. Sex at : female. " drug use, illicit Previously Husam Vital " alcohol use Previously Husam Vital " sex at female Valentine Lucas " patient considered to be No Valentine Lucas homeless " social history reviewed reviewed today Valentine robertson E&M " passive cigarette smoke No Valentine whitneyandez exposure " cigarettes, number smoked 5-6 Valentine Lucas per day " smoking status current every day smoker Valentine Lucas FUNCTIONAL STATUS No Information Available MENTAL STATUS Date Observation Value Provider assessment of mood and no depression, anxiety, J ohn Nemecek affect E&M or agitation " Generalized Anxiety Disorder 0 Debbie operator catalyst concentration [place] Questionnaire - Question 2 " Generalized [...] agitation " Generalized Anxiety Disorder 0 Debbie operator catalyst concentration [place] Questionnaire - Question 2 " Generalized Anxiety Disorder 0 Debbie operator catalyst concentration [place] Questionnaire - Question 1 assessment of [...] agitation " Generalized Anxiety Disorder 0 Debbie operator catalyst concentration [place] Questionnaire - Question 2 " Generalized Anxiety Disorder 0 Debbie ro [place] Questionnaire - Question 1 assessment of mood and no depression, anxiety, J ohn Nemecek affect E&M or agitation " Generalized Anxiety Disorder 0 Debbie operator catalyst concentration [place] Questionnaire - Question 2 " Generalized Anxiety Disorder 0 Debbie operator catalyst concentration [place] Questionnaire - Question 1 assessment of [...] agitation " Generalized Anxiety Disorder 0 Debbie operator catalyst concentration [place] Questionnaire - Question 2 " Generalized Anxiety Disorder 0 Debbie or [place] Questionnaire - Question 1 assessment of [...] 2 " Generalized Anxiety Disorder 1 Debbie operator catalyst concentration [place] Questionnaire - Question 1 Generalized Anxiety Disorder 1 Debbie operator catalyst concentration [place] Questionnaire - Question 2 " Generalized Anxiety Disorder 1 Debbie operator catalyst concentration [place] Questionnaire - Question 1 Generalized Anxiety Disorder 1 Ning nnin Leonard Questionnaire - Question 2 " Generalized Anxiety Disorder 2 Ning nnin Leonard Questionnaire - Question 1 Generalized Anxiety Disorder 0 Debbie operator catalyst concentration [place] Questionnaire - Question 2 " Generalized Anxiety Disorder 0 Debbie operator catalyst concentration [place] Questionnaire - Question 1 Generalized Anxiety Disorder 0 Darci nca Lance Questionnaire - Question 2 " Generalized Anxiety Disorder 0 Darci nca Lance Questionnaire - Question 1 MEDICAL EQUIPMENT No Information Available FAMILY HISTORY No Information Available INSURANCE PROVIDERS Payer name Policy type / Coverage type Covered part y ID Sliding Fee - Cat 1 [employer] insurance [employer] [id number] *Arthur White 0-100% Other [id number] Sliding Fee - Cat 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 *Arthur White 0-100% Other Sliding Fee - Cat 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 *Arthur White 0-100% Other Sliding Fee - Cat 1 [employer] insurance [employer] [id number] *Arthur White 0-100% Other [id number] Expanded Primary Health Care [place] Other [id number] Sliding Fee Scale 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 [id number] Arthur White up to 300% Other [id number] ADVANCE DIRECTIVES Name Date DISCUSSED - NO [...] Est Level III Primary Care Medical Case Ma aimee Est Patient Detailed - [id number] Primary Care Service Linkage Ofc Vst, Est [...] Care - Zee Rodriguez Time spent with compl eted Assesment-Brief - SLW patient:15 Primary Care Service Zee Rodriguez Time spent with completed Linkage patient:65 Venipuncture Elodia Cespedes completed GOALS No Information Available HEALTH CONCERNS No Information Available
[2020-10-07 20:02] LABS: Absolute Lymphocytes (CBC) 2.6 K/uL (0.7-4.9); Basophils % 0.8 % (0-1.3); Lymphocytes % 33.1 % (15.3-44.8); MPV 8.7 fL (7.6-11.3); RBC Red Blood Cell Count 3.97 M/uL (3.86-4.86)
[2020-10-07] MEDS ORDERED: NA CHLORIDE 0.9% 500 ML ONE (20:10)
[2020-10-07 20:16] LABS: ALT/SGPT 21 U/L (12-78); AST/SGOT 7 U/L (15-37); Albumin 3.1 g/dL (3.4-5.0); Alkaline Phosphatase 86 U/L (45-117); BUN Blood Urea Nitrogen 9 mg/dL (7-18); Bicarbonate 31 mmol/L (21-32); Bilirubin Direct < 0.1 mg/dL (0-0.2); Bilirubin Total 0.2 mg/dL (0.2-1.0); Glucose Level 142 mg/dL (74-106); Lipase 115 U/L (73-393); Potassium 3.9 mmol/L (3.5-5.1); Protein, Total 7.2 g/dL (6.4-8.2); Sodium Level 135 mmol/L (136-145)
--- NOTE | 2020-10-07 20:23 | RAD REPORT ---
EXAM DESCRIPTION: CT - Abdomen Pelvis W Contrast - 10/07/2020 8:05 pm CLINICAL HISTORY: Abdominal pain COMPARISON: 2017 TECHNIQUE: Computed axial tomography of the abdomen pelvis was obtained. 100 cc Isovue-300 was admin istered intravenously. Oral contrast was not requested which limits evaluation of bowel and appendix. All CT scans are performed using dose optimization technique as appropriate and may include automated exposure control or mA/KV adjustment according to patient size. FINDINGS: Left lobe of the liver is prominent. It is without significant change from prior exam The gallbladder is contracted Spleen, pancreas, adrenal and kidneys appear unremarkable. There is no evidence of diverticulitis. The appendix is not clearly seen. Hysterectomy. Tiny umbilical hernia IMPRESSION: The gallbladder is contracted Left lobe of the liver is prominent.
[2020-10-07 20:55] LABS: Urine Blood 1+ (NEG); Urine Glucose NEGATIVE (NEG); Urine Protein NEGATIVE (NEG)
--- NOTE | 2020-10-07 21:02 | ER ---
Nurse's Notes [facility] Name: Lucia Arias Age: 59 yrs Sex: Female : 1960 Arrival Date: 10/07/2020 Time: 19:19 Bed 18 Private MD: Diagnosis: Unspecified abdominal pain;Urinary tract infection, site not specified Presentation: 10/07 19:20 Chief complaint: EMS states: They were toned out for AMS, when they arrived patient was aj1 oriented x0, would not follow commands or respond to questions. Once they got patient into the ambulance she immediately perked up and was alert and oriented x4. States that she remembers when the pilot supervisor were talking to her but states that she was having "muscle spasms" that were so bad she could not speak. At that time patient reported LLQ and LUQ abdominal pain that radiates to the back that started yesterday. Reports once loose stool and nausea. Denies vomiting. Patient received Zofran 4mg IV en route by EMS personnel. Coronavirus screen: Client denies travel out of the [place] in the last 14 days. At this time, the client does not indicate any symptoms associated with coronavirus-19. Ebola Screen: Patient denies travel to an Ebola-affected area in the 21 days before illness onset. Initial Sepsis Screen: Does the patient meet any 2 criteria? HR > 90 bpm. No. Patient's initial sepsis screen is negative. Does the patient have a suspected source of infection? Yes: Acute abdominal pain. Risk Assessment: Do you want to hurt yourself or someone else? Patient reports no desire to harm self or others. Onset of symptoms was October 06, 2020. 19:20 Method Of Arrival: EMS: [facility] aj1 19:20 Acuity: LATONYA 3 aj1 Triage Assessment: 19:32 General: Appears in no apparent distress. uncomfortable, Behavior is calm, cooperative, aj1 appropriate for age. Pain: Complains of pain in left upper quadrant and left lower quadrant Pain radiates to back. Neuro: Level of Consciousness is awake, alert, obeys commands, Oriented to person, place, time, situation, Mill Recorder are equal bilaterally Moves all extremities. Speech is normal, Facial symmetry appears normal. GI: Reports lower abdominal pain, upper abdominal pain. Historical: - Allergies: 19:32 Codeine; aj1 19:32 Demerol; aj1 19:32 PENICILLINS; aj1 19:32 Sulfa (Sulfonamide Antibiotics); aj1 - Home Meds: 19:32 Humalog 100 unit/mL Sub-Q crtg sliding scale ac hs [Active]; Imodium Oral as needed aj1 [Active]; lactulose 10 gram/15 mL Oral soln 15 mL three times daily [Active]; Lantus 100 unit/mL Sub-Q soln 24 unit nightly [Active]; loratadine 10 mg Oral tab 1 tab once daily [Active]; melatonin 5 mg Oral tab nightly [Active]; Advair Diskus 500-50 mcg/dose Inhl dsdv 1 puff 2 times per day [Active]; aspirin 81 mg oral chew 1 tab once daily [Active]; benztropine 1 mg Oral tab 1 tab 2 times per day [Active]; buspirone 5 mg oral tab 1 tab 3 times per day [Active]; cranberry 450 mg Oral tab [Active]; Depakote Sprinkles 125 mg Oral cpSP 2 caps three times a day [Active]; Flonase 50 mcg/actuation Nasal spsn 1 spray 2 times per day [Active]; gabapentin 300 mg Oral cap 1 cap 3 times per day [Active]; Glucagon Emergency Kit (human) 1 mg IM kit 1 mL as needed [Active]; Risperdal 1 mg Oral tab 1 tab once daily [Active]; Spiriva with HandiHaler 18 mcg inhalation CpDv 1 cap once daily [Active]; Tradjenta 5 mg oral tab 1 tab once daily [Active]; tramadol 50 mg Oral tab 1 tab q6h prn [Active]; Trileptal 150 mg Oral tab 1 tabs 2 times per day [Active]; Triumeq 600-50-300 mg Oral tab 1 tab once daily [Active]; Vitamin D Oral 2000 unit daily [Active]; Zoloft 50 mg Oral tab 1 tab once daily [Active]; - PMHx: 19:32 Angina; Anxiety; ATHEROSCLEROSIS; Bipolar disorder; CAD; Cellulitis; Chronic pain; aj1 COPD; Depression; Diabetes - IDDM; Difficulty walking; GERD; HIV; Hyperlipidemia; LACK OF COORDINATION; MUSCLE WEAKNESS; neuropathy; Pneumonia; pulmonary edema; Schizophrenia; UTI; vitamin d deficiency; - Immunization history:: Adult Immunizations up to date. - Social history:: Smoking status: Patient reports the use of cigarette tobacco products, smokes one-half pack cigarettes per day. Screenin:34 Abuse screen: Denies threats or abuse. Denies injuries from another. Nutritional aj1 screening: No deficits noted. Tuberculosis screening: No symptoms or risk factors identified. 22:15 Fall Risk None identified. aj1 Assessment: 19:34 General: Appears in no apparent distress. uncomfortable, Behavior is calm, cooperative, aj1 appropriate for age. Pain: Complains of pain in left lower quadrant and left upper quadrant Pain radiates to back Pain currently is 8 out of 10 on a pain scale. Quality of pain is described as crampy, Pain began 1 day ago. Is continuous, Alleviated by nothing. Neuro: Level of Consciousness is awake, alert, obeys commands, Oriented to person, place, time, situation, Mill Recorder are equal bilaterally Moves all extremities. Speech is normal, Facial symmetry appears normal. Cardiovascular: Patient's skin is warm and dry. Respiratory: Airway is patent Respiratory effort is even, unlabored, Respiratory pattern is regular, symmetrical. GI: Abdomen is non-distended, Bowel sounds present X 4 quads. Abd is soft X 4 quads Abdomen is tender to palpation X 4 quads. Reports nausea, Patient currently denies vomiting. : No signs and/or symptoms were reported regarding the genitourinary system. EENT: No signs and/or symptoms were reported regarding the EENT system. Derm: No signs and/or symptoms reported regarding the dermatologic system. Skin is pink, warm \\T\\ dry. normal. Musculoskeletal: No signs and/or symptoms reported regarding the musculoskeletal system. Circulation, motion, and sensation intact. 20:43 Reassessment: Patient appears in no apparent distress at this time. No changes from aj1 previously documented assessment. Patient and/or family updated on plan of care and expected duration. Pain level reassessed. Patient is alert, oriented x 3, equal unlabored respirations, skin warm/dry/pink. 21:42 Reassessment: Report given to Yadira Virk LVN at [facility], who states aj1 that they will be unable to send any kind of transportation to filler picker their resident until at least tomorrow morning. 21:50 Reassessment: Attempted to call [facility] to notify that transport had aj1 been arranged for the patient, no answer to phone calls. 21:55 Reassessment: Attempted to call [facility] to notify that transport had aj1 been arranged for the patient, no answer to phone calls. 22:14 Reassessment: Notified Healthcare staff that patient will be returning now. aj1 Vital Signs: 19:20 BP 114 / 64; Pulse 97; Resp 15; Temp 97.5; Pulse Ox 93% on R/A; Pain 8/10; aj1 20:46 BP 106 / 72; Pulse 84; Resp 16; Pulse Ox 95% on R/A; aj1 21:43 BP 115 / 68; Pulse 88; Resp 18; Pulse Ox 100% on R/A; aj1 ED Course: 19:19 Patient arrived in ED. aj1 19:20 Melida Valle, RN is Primary Nurse. aj1 19:20 Marci Westfall FNP-C is PHCP. snw 19:20 Vern Kidd MD is Attending Physician. snw 19:23 Triage completed. aj1 19:34 Arm band placed on Patient placed in an exam room. aj1 19:34 Patient has correct armband on for positive identification. Bed in low position. Call aj1 light in reach. hall monitor on. Pulse ox on. NIBP on. 19:34 No provider procedures requiring assistance completed. aj1 19:40 Initial lab(s) drawn, by me, sent to lab. Maintain EMS IV. Dressing intact. Good blood jp3 return noted. Site clean \\T\\ dry. Gauge \\T\\ site: 18 GAUGE RAC. Patient maintains SpO2 saturation greater than 95% on room air. 20:05 CT Abd/Pelvis - IV Contrast Only In Process Unspecified. EDMS 20:14 Urine collected: clean catch specimen, cloudy, matt colored. jp3 22:15 IV discontinued, intact, bleeding controlled, No redness/swelling at site. Pressure aj1 dressing applied. Administered Medications: 20:42 Drug: NS 0.9% 500 ml Route: IV; Rate: bolus; Site: right antecubital; aj1 20:55 Drug: Rocephin 1 grams Route: IV; Rate: calculated rate; Site: right antecubital; aj1 20:55 CANCELLED (Physician Discretion): NS 0.9% 1000 ml IV at 1 bolus Per protocol; 1000 mL aj1 bolus 21:27 Drug: Phenergan 6.25 mg Route: IVP; Site: right antecubital; aj1 Outcome: 21:01 Discharge ordered by MD. vora 22:15 Discharged to home ambulatory. aj1 22:15 Condition: good 22:15 Discharge instructions given to patient, jail, Instructed on discharge instructions, follow up and referral plans. medication usage, Demonstrated understanding of instructions, follow-up care, medications, Prescriptions given X 2. 22:15 Patient left the ED. aj1 Signatures: Dispatcher [employer] EDMelida Fernández RN RN aj1 Marci Westfall, HEMODIALYSIS RN-C HEMODIALYSIS RN-Csnw Denys Nieves jp3 Corrections: (The following items were deleted from the chart) 19:34 19:20 Chief complaint: EMS states: They were toned out for AMS, when they arrived aj1 patient was oriented x0, would not follow commands or respond to questions. Once they got patient into the ambulance she immediately perked up and was alert and oriented x4. States that she remembers when the pilot supervisor were talking to her but states that she was having "muscle spasms" that were so bad she could not speak. At that time patient reported RLQ abdominal pain that radiates to the back that started yesterday. Reports once loose stool and nausea. Denies vomiting. Patient received Zofran 4mg IV en route by EMS personnel. aj1
--- NOTE | 2020-10-07 21:02 | EDPHYS ---
Physician Documentation [facility] Name: Lucia Arias Age: 59 yrs Sex: Female : 1960 Arrival Date: 10/07/2020 Time: 19:19 Bed 18 Private MD: ED Physician Vern Kidd HPI: 10/07 19:34 This 59 yrs old Female presents to ER via EMS with complaints of Abdominal snw Pain. 19:34 The patient presents with abdominal pain that is diffuse. Onset: The symptoms/episode snw began/occurred suddenly, last night. The symptoms do not radiate. Associated signs and symptoms: Pertinent positives: nausea, vomiting, and diarrhea. The symptoms are described as crampy. Severity of pain: At its worst the pain was moderate in the emergency department the pain is unchanged. It is unknown whether or not the patient has had similar symptoms in the past. It is unknown whether or not the patient has recently seen a physician. Historical: - Allergies: 19:32 Codeine; aj1 19:32 Demerol; aj1 19:32 PENICILLINS; aj1 19:32 Sulfa (Sulfonamide Antibiotics); aj1 - Home Meds: 19:32 Humalog 100 unit/mL Sub-Q crtg sliding scale ac hs [Active]; Imodium Oral as needed aj1 [Active]; lactulose 10 gram/15 mL Oral soln 15 mL three times daily [Active]; Lantus 100 unit/mL Sub-Q soln 24 unit nightly [Active]; loratadine 10 mg Oral tab 1 tab once daily [Active]; melatonin 5 mg Oral tab nightly [Active]; Advair Diskus 500-50 mcg/dose Inhl dsdv 1 puff 2 times per day [Active]; aspirin 81 mg oral chew 1 tab once daily [Active]; benztropine 1 mg Oral tab 1 tab 2 times per day [Active]; buspirone 5 mg oral tab 1 tab 3 times per day [Active]; cranberry 450 mg Oral tab [Active]; Depakote Sprinkles 125 mg Oral cpSP 2 caps three times a day [Active]; Flonase 50 mcg/actuation Nasal spsn 1 spray 2 times per day [Active]; gabapentin 300 mg Oral cap 1 cap 3 times per day [Active]; Glucagon Emergency Kit (human) 1 mg IM kit 1 mL as needed [Active]; Risperdal 1 mg Oral tab 1 tab once daily [Active]; Spiriva with HandiHaler 18 mcg inhalation CpDv 1 cap once daily [Active]; Tradjenta 5 mg oral tab 1 tab once daily [Active]; tramadol 50 mg Oral tab 1 tab q6h prn [Active]; Trileptal 150 mg Oral tab 1 tabs 2 times per day [Active]; Triumeq 600-50-300 mg Oral tab 1 tab once daily [Active]; Vitamin D Oral 2000 unit daily [Active]; Zoloft 50 mg Oral tab 1 tab once daily [Active]; - PMHx: 19:32 Angina; Anxiety; ATHEROSCLEROSIS; Bipolar disorder; CAD; Cellulitis; Chronic pain; aj1 COPD; Depression; Diabetes - IDDM; Difficulty walking; GERD; HIV; Hyperlipidemia; LACK OF COORDINATION; MUSCLE WEAKNESS; neuropathy; Pneumonia; pulmonary edema; Schizophrenia; UTI; vitamin d deficiency; - Immunization history:: Adult Immunizations up to date. - Social history:: Smoking status: Patient reports the use of cigarette tobacco products, smokes one-half pack cigarettes per day. ROS: 19:24 Constitutional: Negative for fever, chills, and weight loss, Eyes: Negative for injury, snw pain, redness, and discharge, ENT: Negative for injury, pain, and discharge, Neck: Negative for injury, pain, and swelling, Cardiovascular: Negative for chest pain, palpitations, and edema, Respiratory: Negative for shortness of breath, cough, wheezing, and pleuritic chest pain, Back: Negative for injury and pain, : Negative for injury, bleeding, discharge, and swelling, MS/Extremity: Negative for injury and deformity, Skin: Negative for injury, rash, and discoloration, Neuro: Negative for headache, weakness, numbness, tingling, and seizure, Psych: Negative for depression, anxiety, suicide ideation, homicidal ideation, and hallucinations. 19:24 Abdomen/GI: Positive for abdominal pain, nausea, vomiting, diarrhea. Exam: 19:24 Constitutional: This is a well developed, well nourished patient who is awake, alert, snw and in no acute distress. Head/Face: Normocephalic, atraumatic. Eyes: Pupils equal round and reactive to light, extra-ocular motions intact. Lids and lashes normal. Conjunctiva and sclera are non-icteric and not injected. Cornea within normal limits. Periorbital areas with no swelling, redness, or edema. ENT: Nares patent. No nasal discharge, no septal abnormalities noted. Tympanic membranes are normal and external auditory canals are clear. Oropharynx with no redness, swelling, or masses, exudates, or evidence of obstruction, uvula midline. Mucous membranes moist. Neck: Trachea midline, no thyromegaly or masses palpated, and no cervical lymphadenopathy. Supple, full range of motion without nuchal rigidity, or vertebral point tenderness. No Meningismus. Chest/axilla: Normal chest wall appearance and motion. Nontender with no deformity. No lesions are appreciated. Cardiovascular: Regular rate and rhythm with a normal S1 and S2. No gallops, murmurs, or rubs. Normal PMI, no JVD. No pulse deficits. Respiratory: Lungs have equal breath sounds bilaterally, clear to auscultation and percussion. No rales, rhonchi or wheezes noted. No increased work of breathing, no retractions or nasal flaring. Back: No spinal tenderness. No costovertebral tenderness. Full range of motion. Skin: Warm, dry with normal turgor. Normal color with no rashes, no lesions, and no evidence of cellulitis. MS/ Extremity: Pulses equal, no cyanosis. Neurovascular intact. Full, normal range of motion. Neuro: Awake and alert, GCS 15, oriented to person, place, time, and situation. Cranial nerves II-XII grossly intact. Motor strength 5/5 in all extremities. Sensory grossly intact. Cerebellar exam normal. Normal gait. Psych: Awake, alert, with orientation to person, place and time. Behavior, mood, and affect are within normal limits. 19:24 Abdomen/GI: Inspection: obese Bowel sounds: hyperactive, in all quadrants, Palpation: mild abdominal tenderness, in the posterior aspect of left lateral abdomen and left upper quadrant. Vital Signs: 19:20 BP 114 / 64; Pulse 97; Resp 15; Temp 97.5; Pulse Ox 93% on R/A; Pain 8/10; aj1 20:46 BP 106 / 72; Pulse 84; Resp 16; Pulse Ox 95% on R/A; aj1 21:43 BP 115 / 68; Pulse 88; Resp 18; Pulse Ox 100% on R/A; aj1 MDM: 19:22 Patient medically screened. snw 19:25 Data reviewed: vital signs, nurses notes. Data interpreted: Pulse oximetry: on room air snw is 93 %. Interpretation: acceptable. Counseling: I had a detailed discussion with the patient and/or guardian regarding: the historical points, exam findings, and any diagnostic results supporting the discharge/admit diagnosis, lab results. 10/07 19:21 Order name: Basic Metabolic Panel; Complete Time: 20:28 snw 10/07 19:21 Order name: CBC with Diff; Complete Time: 20:06 snw 10/07 19:21 Order name: Hepatic Function; Complete Time: 20:28 snw 10/07 19:21 Order name: Lipase; Complete Time: 20:28 snw 10/07 19:21 Order name: Urine Culture snw 10/07 19:21 Order name: Urine Microscopic Only; Complete Time: 21:17 snw 10/07 19:21 Order name: IV Saline Lock; Complete Time: 19:44 snw 10/07 19:21 Order name: Labs collected and sent; Complete Time: 19:44 snw 10/07 19:21 Order name: CT Abd/Pelvis - IV Contrast Only; Complete Time: 20:28 snw 10/07 20:30 Order name: Urine Dipstick--Ancillary (enter results); Complete Time: 20:59 tt3 10/07 19:21 Order name: Urine Dipstick-Ancillary (obtain specimen); Complete Time: 20:26 snw Administered Medications: 20:42 Drug: NS 0.9% 500 ml Route: IV; Rate: bolus; Site: right antecubital; aj1 20:55 Drug: Rocephin 1 grams Route: IV; Rate: calculated rate; Site: right antecubital; aj1 20:55 CANCELLED (Physician Discretion): NS 0.9% 1000 ml IV at 1 bolus Per protocol; 1000 mL aj1 bolus 21:27 Drug: Phenergan 6.25 mg Route: IVP; Site: right antecubital; aj1 Disposition: 23:14 Co-signature as Attending Physician, Vern Kidd MD. rn Disposition: 10/07/20 21:01 Discharged to Home. Impression: Unspecified abdominal pain, Urinary tract infection, site not specified. - Condition is Stable. - Discharge Instructions: Abdominal Pain, Adult, Food Choices to Help Relieve Diarrhea, Adult, Diarrhea, Adult, Fat and Cholesterol Restricted Diet, Nausea and Vomiting, Adult, Urinary Tract Infection, Adult, Rehydration, Adult. - Prescriptions for cefpodoxime 200 mg Oral Tablet - take 1 tablet by ORAL route every 12 hours with food; 14 tablet. promethazine 25 mg Oral Tablet - take 1 tablet by ORAL route every 6 hours As needed; 20 tablet. - Medication Reconciliation Form, Thank You Letter, Antibiotic Education, Prescription Opioid Use form. - Follow up: Emergency Department; When: As needed; Reason: Worsening of condition. Follow up: Private Physician; When: 2 - 3 days; Reason: Recheck today's complaints, Continuance of care, Re-evaluation by your physician. Signatures: Dispatcher [employer] EDMelida Fernández RN RN aj1 Marci Westfall, SOLAR ENERGY ADVISOR-C SOLAR ENERGY ADVISOR-Csnw Vern Kidd MD MD warning coordination meteorologist: (The following items were deleted from the chart) 20:55 20:31 NS 0.9% 1000 ml IV at 1 bolus Per protocol; 1000 mL bolus ordered. diony aj1 22:15 21:01 10/07/2020 21:01 Discharged to Home. Impression: Unspecified abdominal pain; aj1 Urinary tract infection, site not specified. Condition is Stable. Forms are Medication Reconciliation Form, Thank You Letter, Antibiotic Education, Prescription Opioid Use. Follow up: Emergency Department; When: As needed; Reason: Worsening of condition. Follow up: Private Physician; When: 2 - 3 days; Reason: Recheck today's complaints, Continuance of care, Re-evaluation by your physician. snw
[2020-10-07] MEDS ORDERED: CEFTRIAXONE/SWI 1gm 1 GM/10 ML SYR ONE (21:05)
[2020-10-07 21:16] LABS: Urine Bacteria LOADED /HPF (<20); Urine Culture Reflex Order NOT NEEDED; Urine RBC <5 /HPF (NONE SEEN)
[2020-10-07] MEDS ORDERED: PROMETHAZINE INJ 25 MG/ML AMP ONE (21:36)
[2020-10-08 04:34] VITALS: TEMP 97.5
[2020-10-08 04:38] VITALS: BP 115/68; O2SAT 100
== END 2020-10-07 22:15 | disposition home or self-care (01) ==
LOC: ER 19:13
DX: N39.0 Urinary tract infection, site not specified (principal); I10 Essential (primary) hypertension; E11.9 Type 2 diabetes mellitus without complications; E78.5 Hyperlipidemia, unspecified; F20.9 Schizophrenia, unspecified; F17.210 Nicotine dependence, cigarettes, uncomplicated; Z21 Asymptomatic human immunodeficiency virus [HIV] infection status; Z79.82 Long term (current) use of aspirin; Z79.4 Long term (current) use of insulin; Z88.0 Allergy status to penicillin; Z88.2 Allergy status to sulfonamides; Z88.5 Allergy status to narcotic agent
CPT/HCPCS: 87088; 85025; 87086; 80048; 36415; 82565; 80076; 83690; 74177; Q9967; J2550; J0696; J7040; 81003; 81015; 96374; 96375; 99285

== ENCOUNTER 2021-01-03 09:54 | Emergency (ER) | payer OTHER ==
--- OUTSIDE RECORDS SUMMARY | 2021-01-03 09:56 | XMS REPORT | Summary of Care ---
:1960 Author Organization [facility] [place] Address [address] [place] [address]- Encounter HQ Melbar_marshall(FIN) [id number] Date(s): 10/16/20 - 10/16/20 [facility] [place] [address] [place] [address]- [phone] Discharge Disposition: Home or Self Care Attending Physician: French Saldaña MD Referring Physician: French Saldaña MD Vital Signs Most recent to oldest [Reference Range]: 1 Height 162.56 cm (10/16/20 2:44 PM) Blood Pressure [90-140/60-90 mmHg] 87/60 mmHg *LOW* (10/16/20 2:44 PM) Respiratory Rate [14-20 BRMIN] 16 BRMIN (10/16/20 2:44 PM) Peripheral Pulse Rate [60-100 bpm] 95 bpm (10/16/20 2:44 PM) Weight 94.091 kg (10/16/20 2:44 PM) Body Mass Index 35.61 m2 (10/16/20 2:44 PM) Problem List Condition Effective Dates Status Health Status Informant Diabetes mellitus(Confirmed) Active HIV positive(Confirmed) Active Morbid obesity(Confirmed) Active Schizophrenia(Confirmed) Active Tremor(Confirmed) Active Allergies, Adverse Reactions, Alerts Substance Reaction Severity Status codeine Active penicillin Active Medications Advair Diskus 250 mcg-50 mcg inhalation powder 1 inhalation, INHALATION, BID, 0 Refill(s) Start Date: 10/16/20 Status: Orderedaspirin 81 mg tablet, enteric coated 81 mg = 1 tab, PO, Daily, # 90 tab, 3 Refill(s) Start Date: 10/16/20 Status: OrderedBenadryl 25 mg oral tablet 25 mg = 1 tab, PO, TID, 0 Refill(s) Start Date: 10/16/20 Status: Orderedbenztropine 1 mg oral tablet 1 mg = 1 tab, PO, Daily, 0 Refill(s) Start Date: 10/16/20 Status: OrderedbusPIRone 5 mg oral tablet 5 mg = 1 tab, PO, TID, 0 Refill(s) Start Date: 10/16/20 Status: OrderedChildrens Flonase 50 mcg/inh nasal spray NASAL, Daily, 0 Refill(s) Start Date: 10/16/20 Status: Ordereddivalproex sodium 125 mg oral delayed release sprinkles(Depakote Sprinkles) 250 mg = 2 cap, PO, TID, 0 Refill(s) Start Date: 10/16/20 Status: Orderedgabapentin 300 mg oral capsule 300 mg = 1 cap, PO, TID, # 90 cap, 0 Refill(s) Start Date: 10/16/20 Status: Orderedglucagon ONCE, 0 Refill(s) Start Date: 10/16/20 Status: OrderedHumaLOG 100 units/mL injectable solution SUB-Q, TID-Before Meals, 0 Refill(s) Start Date: 10/16/20 Status: OrderedImodium A-D 2 mg oral tablet 2 mg = 1 tab, PO, Q4H, PRN Loose Stools, # 60 tab, 0 Refill(s) Start Date: 10/16/20 Stop Date: 10/26/20 Status: Orderedlactulose 10 g/15 mL oral syrup 20 gm = 30 mL, PO, TID, PRN constipation, # 240 mL, 0 Refill(s) Start Date: 10/16/20 Stop Date: 10/24/20 Status: Orderedloratadine 10 mg oral tablet 10 mg = 1 tab, PO, Daily, 0 Refill(s) Start Date: 10/16/20 Status: OrderedRisperdal 1 mg oral tablet 1 mg = 1 tab, PO, BID, # 60 tab, 0 Refill(s) Start Date: 10/16/20 Status: OrderedSpiriva HandiHaler 18 microgram, INHALATION, Daily, 0 Refill(s) Start Date: 10/16/20 Status: OrderedTradjenta 5 mg oral tablet 5 mg = 1 tab, PO, Daily, 0 Refill(s) Start Date: 10/16/20 Status: Orderedtramadol 50 mg oral tablet 50 mg = 1 tab, PO, BID, # 30 tab, 0 Refill(s) Start Date: 10/16/20 Stop Date: 10/31/20 Status: Orderedtramadol 50 mg oral tablet 50 mg = 1 tab, PO, Q8H, PRN Pain, # 60 tab, 0 Refill(s) Start Date: 10/16/20 Stop Date: 11/05/20 Status: OrderedTrileptal 150 mg oral tablet 150 mg = 1 tab, PO, BID, 0 Refill(s) Start Date: 10/16/20 Status: OrderedTriumeq 600 mg-50 mg-300 mg oral tablet 1 tab, PO, Daily, 0 Refill(s) Start Date: 10/16/20 Status: OrderedZofran 4 mg oral tablet 4 mg = 1 tab, PO, Q8H, PRN Nausea/vomiting, # 30 tab, 0 Refill(s) Start Date: 10/16/20 Stop Date: 10/26/20 Status: Ordered Results No data available for this section Immunizations No data available for this section Procedures No data available for this section Social History Social History Type Response Smoking Status Current every day smoker; Ty pe: Cigarettes; Exposure to Tobacco Smoke Unable to obtain; Cigarette Smoking Last 365 Days No; Reg Smoking Cessation Counseling No entered on: 10/16/20 Assessment and Plan No data available for this section
--- OUTSIDE RECORDS SUMMARY | 2021-01-03 09:56 | XMS REPORT | Continuity of Care Document ---
:1960 Author Organization [facility] Care Team Providers Name Role Phone [facility] Unavailable Un available Problems Problem Status Onset Classification Date Comments Sourc e Date Reported FLU SYMPTOMS Active 11/16/20 [facility] [place] [facility] Diabetes mellitus Active Problem 10/19/2020 [facility] (disorder) Neuro HIV positive Active Problem 10/19/2020 [facility] (finding) Neuro Morbid obesity Active Problem 10/19/2020 Misc her (disorder) Neuro Schizophrenia Active Problem 10/19/2020 [facility] (disorder) Neuro Tremor (finding) Active Problem 10/19/2020 [facility] Neuro Medications Medication Details Route Status Patient Ordering Order Source Instructions Provider Date Fluticasone NASAL, Active [facility] propionate 0.05 Daily, 0 020 Neuro MG/ACTUAT Metered Refill(s) Dose Nasal [place] [Flonase] gabapentin 300 MG 300 mg = 1 Active [facility] Oral Capsule cap, PO, 020 Neuro TID, # 90 cap, 0 Refill(s) Glucagon ONCE, 0 Active [facility] Refill(s) 020 Neuro Insulin Lispro 100 SUB-Q, Active [facility] er UNT/ML Injectable TID-Before 020 [facility] Solution [Humalog] Meals, 0 Refill(s) Loperamide 2 mg = 1 Active [facility] Hydrochloride 2 MG tab, PO, 020 Neur o Oral Tablet Q4H, PRN [Imodium] Loose Stools, # 60 tab, 0 Refill(s) Lactulose 667 20 gm = 30 Active [facility] MG/ML Oral mL, PO, 020 Neuro Solution TID, PRN constipati on, # 240 mL, 0 Refill(s) Loratadine 10 MG 10 mg = 1 Active Misch er Oral Tablet tab, PO, 020 Neuro Daily, 0 Refill(s) Spiriva HandiHaler 18 Active [facility] er microgram, 020 Neuro INHALATION , Daily, 0 Refill(s) Linagliptin 5 MG 5 mg = 1 Active [facility] r Oral Tablet tab, PO, 020 Neuro [Tradjenta] Daily, 0 Refill(s) tramadol 50 mg = 1 Active [facility] hydrochloride 50 tab, PO, 020 Neuro MG Oral Tablet BID, # 30 tab, 0 Refill(s) Ondansetron 4 MG 4 mg = 1 Active [facility] r Oral Tablet tab, PO, 020 Neuro [Zofran] Q8H, PRN Nausea/vom iting, # 30 tab, 0 Refill(s) Diphenhydramine 25 mg = 1 Active [facility] Hydrochloride 25 tab, PO, 020 Neuro MG Oral Tablet TID, 0 [Benadryl] Refill(s) Risperidone 1 MG 1 mg = 1 Active [facility] Oral Tablet tab, PO, 020 Neuro [Risperdal] BID, # 60 tab, 0 Refill(s) oxcarbazepine 150 150 mg = 1 Active Mis eliana MG Oral Tablet tab, PO, 020 Neuro [Trileptal] BID, 0 Refill(s) abacavir 600 MG / 1 tab, PO, Active Mis eliana dolutegravir 50 MG Daily, 0 020 Neur o / Lamivudine 300 Refill(s) MG Oral Tablet [Triumeq] Advair Diskus 250 1 Active [facility] mcg-50 mcg inhalation 020 Neuro inhalation powder , INHALATION , BID, 0 Refill(s) Aspirin 81 MG 81 mg = 1 Active [facility] Enteric Coated tab, PO, 020 Neuro Tablet Daily, # 90 tab, 3 Refill(s) benztropine 1 mg 1 mg = 1 Active [facility] oral tablet tab, PO, 020 Neuro Daily, 0 Refill(s) busPIRone 5 mg 5 mg = 1 Active [facility] oral tablet tab, PO, 020 Neuro TID, 0 Refill(s) Divalproex Sodium 250 mg = 2 Active Mis eliana 125 MG Enteric cap, PO, 020 Neuro Coated Capsule TID, 0 Refill(s) Allergies, Adverse Reactions, Alerts Substance Category Reaction Severity Reaction Status Date Comments S ource type Reported codeine Assertion Drug Active [facility] r allergy Neuro penicillin Assertion Drug Active Mis eliana allergy Neuro Immunizations No Data Provided for This Section Results No Data Provided for This Section Pathology Reports No Data Provided for This Section Diagnostic Reports No Data Provided for This Section Consultation Notes No Data Provided for This Section Discharge Summaries No Data Provided for This Section History and Physicals No Data Provided for This Section Vital Signs Vital Sign Value Date Comments Source Systolic (mm Hg) 87 10/16/2020 [facility] Diastolic (mm Hg) 60 10/16/2020 [facility] Heart Rate 95 10/16/2020 [facility] Respitory Rate 16 10/16/2020 [facility] Height 162.56 cm 10/16/2020 [facility] Weight 94.091 10/16/2020 [facility] BMI Calculated 35.61 10/16/2020 [facility] Encounters Location Location Encounter Encounter Reason Attending ADM DC Stat us Source Details Type Number For Provider Date Date Visit Emergency [id number] KARMA 11/16 11/16 [facility] [place] [facility] [id number] French 10/16 10/17 [facility]2019 [facility] [id number] French [facility]16 [facility] Procedures No Data Provided for This Section Assessment and Plan No Data Provided for This Section Plan of Care No Data Provided for This Section Social History Social History Date Source Social History TypeResponse 10/16/2020 [facility] Smoking Status Current every day smoker; Type: Cigarett es; Exposure to Tobacco Smoke Unable to obtain; Cigarette Smoking Last 365 Days No; Reg Smoking Cessation Counseling No entered on: 10/16/20 Family History No Data Provided for This Section Advance Directives No Data Provided for This Section Functional Status No Data Provided for This Section
--- OUTSIDE RECORDS SUMMARY | 2021-01-03 10:04 | XMS REPORT | Continuity of Care Document ---
:1960 Author Organization [facility] t Address [address] [place] [address] Care Team Providers Name Role Phone Emerald Attending Clinician Unavailable Zarhaa Attending Clinician [phone] Nan Attending Clinician Unavailable Manav Attending Clinician Unavailable Clarence Saldaña Attending Clinician Loren Attending Clinician Unavailable Elvin Attending Clinician Unavailable Jose Attending Clinician Unavailable Ritchie Moore Attending Clinician Unavailable Anders Attending Clinician Unavailable Jose Attending Clinician Unavailable Nan Attending Clinician Unavailable Status Attending Clinician Unavailable Lance Attending Clinician Unavailable Portia Attending Clinician Unavailable Catie Obrien Attending Clinician Unavailable [place] Attending Clinician Unavailable Rosas Attending Clinician Unavailable Rosas Attending Clinician [phone] Juan A Attending Clinician [phone] Danish Attending Clinician Unavailable Ankit Cooper Attending Clinician Unavailable Bethel Attending Clinician Unavailable Tessa Attending Clinician Unavailable Hu Attending Clinician Unavailable Rakesh Attending Clinician Unavailable Bethel Attending Clinician Unavailable Raymundo Attending Clinician Unavailable Lance Attending Clinician Unavailable Ashutosh Rae Attending Clinician Unavailable Jennifer Attending Clinician [phone] Oliver Attending Clinician Unavailable Ángel Attending Clinician Unavailable Bolivar Attending Clinician Unavailable Michael Attending Clinician [phone] Kian Attending Clinician Unavailable Saman Attending Clinician Unavailable Blaine Attending Clinician Unavailable Tera Attending Clinician Unavailable Conor Attending Clinician [phone] Yoel Attending Clinician Unavailable Marilee Attending Clinician [phone] Leonard Attending Clinician [phone] Gentry Attending Clinician Unavailable Ed Attending Clinician Unavailable Bridger Attending Clinician [phone] Prsicilla Attending Clinician Unavailable Rubina Attending Clinician [phone] Kimberly Attending Clinician Unavailable Zahraa Unavailable [phone] Payers Payer Name Policy Type Policy Number Effective Date Expiration Date S yovanice Sliding Fee - CI [id number] 2019 2020 [facility] 1 00:00:00 00:00:00 [facility] Sl[facility] Fee - 11 [id number] 2019 2019 [facility] 1 00:00:00 00:00:00 [facility] Sliding Fee - [id number] 2016 2020 [facility] 1 00:00:00 00:00:00 [facility] Sliding Fee - 11 [id number] 2016 2017 [facility] 00:00:00 00:00:00 [facility] Sliding Fee - CI [id number] 2016 2017 [facility] 1 00:00:00 00:00:00 [facility] Sliding Fee - 11 [id number] 2015 2017 [facility] 00:00:00 00:00:00 [facility] Problems Condition Condition Condition Status Onset Resolution Last Treating Co mments Source Name Details Category Date Date Treatment Clinician Date NONSPEC Condition Active 2020-02-07 Abel Vital RXN CMI 3-12 10:56:38 Husam Lassiter MSR G-IFN 00:00: ty ANTIG RSPN 00 Health NO ACT TB DIZZINESS Condition Active 2017-10-13 Zahraa Legalison 8 09:19:20 Husam Lassiter 00:00: ty 00 Health Hyperlipid Condition Active 2020-02-07 Abel Vital emia 7-21 10:44:35 Husam Lassiter 00:00: ty 00 Health Preventive Condition Active 2015-112017-10-13 Estrelladaviekellie Legalison health 2-06 09:19:20 Husam Lassiter care 00:00: ty 00 Health Screening, Condition Active 2017-10-13 Abel Vital colon 8 09:19:20 Husam Lassiter cancer 00:00: ty 00 Health Hip Condition Active 2016-07-07 Zahraa Sarabjit egacy arthralgia 03-24 08:45:03 Husam dickerson 00:00: ty 00 Health COPD Condition Active 2020-02-07 Sarabjit Vital 4- 10:44:35 Husam Lassiter 00:00: ty 00 Health FLU Diagnosis Active [id number] Mem oria SYMPTOMS - 12:41:00 l FLU 00:00: [place] SYMPTOMS 00 Active 11/16/2011 [facility] Closed Closed Problem Active [facility] fracture [...] - foot, foot, Memoria right right l Outpati ent Clinics Closed Closed Diagnosis Active [facility] [...] foot, foot, Clinics initial initial encounter encounter Diabetes Problem Active 2020-10-19 Mem oria mellitus 01:22:40 l (disorder) Diabetes He rmann mellitus (disorder) Active Problem 10/19/2020 [facility] HIV Problem Active 2020-10-19 Memor ia positive 01:22:40 l (finding) HIV Oscar positive (finding) Active Problem 10/19/2020 [facility] Morbid Problem Active 2020-10-19 Memor ia obesity 01:22:40 l (disorder) Morbid Herm nolvia obesity (disorder) Active Problem 10/19/2020 [facility] Schizophre Problem Active 2020-10-19 M emoria bhupendra 01:22:40 l (disorder) [place] n Schizophre bhupendra (disorder) Active Problem 10/19/2020 [facility] Tremor Problem Active 2020-10-19 Memor ia (finding) 01:22:40 l Tremor Oscar (finding) Active Problem 10/19/2020 [facility] Allergies, Adverse Reactions, Alerts Allergy Allergy Status Severity Reaction(s) Onset Inactive Treating Comm ents Source Name Type Date Date Clinician codeine DA Active [facility] 04-19 Clear 00:00: [place] 00 [facility] penicill DA Active [facility] in V 04-19 Clear 00:00: [place] 00 [facility] CODEINE Drug Active High [facility] allergy Criticali 03-18 Commun i (disorde ty 00:00: ty r) 00 Health PENICILL Drug Active High [facility] IN allergy Criticali 03-18 Commun i (disorde ty 00:00: ty r) 00 Health penicill Adverse Active Info Not [facility] codeine Adverse Active Info Not [facility] Reaction Available [facility] codeine codeine Active Memoria Oscar penicill penicill Active Memori a in in l Oscar Social History Social Habit Start Date Stop Date Quantity Comments Source time of call 2020-12-05 2020-12-05 12/05/2020 11:45 AM [facility] Community 11:45:23 11:45:23 Health sexual orientation 2020-12-02 2020-12-02 Heterosexual Lega cy Community 10:39:40 10:39:40 Health social history E&M 2020-12-02 2020-12-02 . Not [place] [facility] 10:39:40 10:39:40 homeless. Born in [facility]. City: [place]. State: [place]. Not employed. Gender of partner(s): male. Sexually Active: No. Sex at : female. drug use 2020-12-02 2020-12-02 Previously [facility] ty 10:39:40 10:39:40 Health alcohol use 2020-12-02 2020-12-02 Previously [facility] ity 10:39:40 10:39:40 Health social history 2020-12-02 2020-12-02 reviewed today [facility] reviewed E&M 10:39:40 10:39:40 Health is there any 2020-12-02 2020-12-02 No [facility] Commu nity chance that you 10:39:40 10:39:40 Health could be ? smoking, advice to 2020-12-02 2020-12-02 Yes [facility] quit 10:39:40 10:39:40 Health tobacco use 2020-12-02 2020-12-02 Currently [facility] Bon ity (cigarettes, 10:39:40 10:39:40 Health cigar, chew, pipe) assessment of 2020-12-02 2020-12-02 Limited [facility] Comm unity health literacy 10:39:40 10:39:40 Health (MDQA [facility] 2014 Standards, 3C10) passive cigarette 2020-02-07 2020-02-07 No [facility] smoke exposure 10:26:43 10:26:43 Health if the patient is 2020-02-07 2020-02-07 No [...] What type of drug 2015-03-18 2015-03-18 [facility] was used 10:06:41 10:06:41 Health sex at 2015-03-18 2015-03-18 female [facility] nity 10:06:41 10:06:41 Health patient considered 2015-03-18 2015-03-18 No [facility] to be homeless 10:06:41 10:06:41 Health Smoking Status Start Date Stop Date Source Smokes tobacco daily (finding) 2020-12-02 10:39:40 [facility] Medications Ordered Filled Start Stop Current Ordering Indication Dosage Frequency Signature Comments Components Source Medication Medication Date Date Medication? Clinician (SIG) Name Name TRISTON Yes 1{Table 1xD 1 by mouth Le keysha (SERTRALINE 1-06 t} Every Communi HCL) 50 MG 00:00: Morning ty TABS 00 Health (BUSPIRONE Yes 1{Table 3xD 1 by mouth [facility] HCL) 5 MG 1-06 t} tid Communi TABS 00:00: ty 00 Health ADVAIR Yes 1 puff [facility] DISKUS 1-06 twice Communi (FLUTICASON 00:00: daily ty E-SALMETERO 00 Health L) 250-50 MCG/DOSE AEPB VITAMIN D3 Yes [facility] (CHOLECALCI 1-06 Communi FEROL TABS) 00:00: ty TABS 00 Health TRADJENTA Yes 1{Table 1xD 1 Every [place] (LINAGLIPTI 1-06 t} Day Communi N) 5 MG 00:00: ty TABS 00 Health (LORATADINE Yes 1{Table 1xD 1 By Mouth [facility] ) 10 MG 1-06 t} once a day Commun i TABS 00:00: ty 00 Health HUMALOG Yes sliding [facility] (INSULIN 1-06 scale Communi LISPRO) 100 00:00: ty UNIT/ML 00 Health SOLN (LACTULOSE) Yes 2 tbsp (30 [facility] 10 GM/15ML 1-06 mL) three Comm uni SOLN 00:00: times a ty 00 day as Health needed for constipati on Fluticasone 2019-11 Yes NASAL, Miguelito susan propionate 1-19 Daily, 0 l 0.05 21:07: Refill(s) Oscar MG/ACTUAT 00 Metered Dose Nasal [place] [Flonase] gabapentin 2019-11 Yes 300 mg = 1 M emoria 300 MG Oral 1-19 cap, PO, l Capsule 21:07: TID, # 90 Ebony nn 00 cap, 0 Refill(s) Glucagon 2019-11 Yes ONCE, 0 Memori a 1-19 Refill(s) l 21:07: [place] 00 Insulin 2019-11 Yes SUB-Q, Memoria Lispro 100 1-19 TID-Before l UNT/ML 21:07: Meals, 0 Oscar Injectable 00 Refill(s) Solution [Humalog] Loperamide 2019-11 Yes 2 mg = 1 Mem oria Hydrochlori 1-19 tab, PO, l de 2 MG 21:07: Q4H, PRN [place] Oral Tablet 00 Loose [Imodium] Stools, # 60 tab, 0 Refill(s) Lactulose 2019-11 Yes 20 gm = 30 Me moria 667 MG/ML 1-19 mL, PO, l Oral 21:07: TID, PRN Oscar Solution 00 constipati on, # 240 mL, 0 Refill(s) Loratadine 2019-11 Yes 10 mg = 1 Me moria 10 MG Oral -19 tab, PO, l Tablet 21:07: Daily, 0 Oscar 00 Refill(s) Spiriva 2019-11 Yes 18 Memoria HandiHaler -19 microgram, l 21:07: INHALATION [place] 00 , Daily, 0 Refill(s) Linagliptin 2019-11 Yes 5 mg = 1 Me moria 5 MG Oral -19 tab, PO, l Tablet 21:07: Daily, 0 [place] [Tradjenta] 00 Refill(s) tramadol 2019-11 Yes 50 mg = 1 Miguelito susan hydrochlori -19 tab, PO, l de 50 MG 21:07: BID, # 30 Herm nolvia Oral Tablet 00 tab, 0 Refill(s) Ondansetron 2019-11 Yes 4 mg = 1 Me moria 4 MG Oral -19 tab, PO, l Tablet 21:07: Q8H, PRN Oscar [Zofran] 00 Nausea/vom iting, # 30 tab, 0 Refill(s) Diphenhydra 2019-11 Yes 25 mg = 1 M emoria mine -19 tab, PO, l Hydrochlori 21:07: TID, 0 Herm nolvia de 25 MG 00 Refill(s) Oral Tablet [Benadryl] Risperidone 2019-11 Yes 1 mg = 1 Me moria 1 MG Oral -19 tab, PO, l Tablet 21:07: BID, # 60 [place] [Risperdal] 00 tab, 0 Refill(s) oxcarbazepi 2019-11 Yes 150 mg = 1 Memoria ne 150 MG -19 tab, PO, l Oral Tablet 21:07: BID, 0 Herm nolvia [Trileptal] 00 Refill(s) abacavir 2019-11 Yes 1 tab, PO, Mem oria 600 MG / -19 Daily, 0 l dolutegravi 21:07: Refill(s) H ermann r 50 MG / 00 Lamivudine 300 MG Oral Tablet [Triumeq] Advair 2019-11 Yes 1 Memoria Diskus 250 -19 inhalation l mcg-50 mcg 20:49: , [place] inhalation 00 INHALATION powder , BID, 0 Refill(s) Aspirin 81 2019-11 Yes 81 mg = 1 Me moria MG Enteric -19 tab, PO, l Coated 20:49: Daily, # Oscar Tablet 00 90 tab, 3 Refill(s) benztropine 2019-11 Yes 1 mg = 1 Me moria 1 mg oral -19 tab, PO, l tablet 20:49: Daily, 0 Oscar 00 Refill(s) busPIRone 5 2019-11 Yes 5 mg = 1 Me moria mg oral -19 tab, PO, l tablet 20:49: TID, 0 Oscar 00 Refill(s) Divalproex 2019-11 Yes 250 mg = 2 M emoria Sodium 125 -19 cap, PO, l MG Enteric 20:49: TID, 0 Ebony nn Coated 00 Refill(s) Capsule (BUPROPION 2020- No 1{Table 2xD 1 By Mouth [facility] HCL) 75 MG 7-11 01-06 t} Twice a Commu ni TABS 00:00: 00:00 Day ty 00 :00 Health (TRAMADOL Yes 1{Table 3xD 1 Three [place] HCL) 50 MG 3-14 t} Times a Commun i TABS 00:00: Day ty 00 Health TRILEPTAL Yes 1{Table 2xD 1 Twice a [facility] (OXCARBAZEP 3-14 t} Day Communi INE) 150 MG 00:00: ty TABS 00 Health RISPERDAL Yes 1{Table 1xD 1 by mouth [facility] (RISPERIDON 3-14 t} once a day Co mmuni E) 1 MG 00:00: ty TABS 00 Health LANTUS Yes 24 U sc [facility] (INSULIN 3-14 Every pm Communi GLARGINE) 00:00: ty 100 UNIT/ML 00 Health SOLN (GABAPENTIN Yes 1{Capsu 3xD 1 by mouth [facility] ) 300 MG 3-14 le} three Communi CAPS 00:00: times a ty 00 day Health DEPAKOTE 2018- Yes 2 by mouth Leg acy (DIVALPROEX 3-14 twice a Commu ni SODIUM) 250 00:00: day ty MG TBEC 00 Health (ASPIRIN) Yes 1 by mouth [place] 81 MG TBEC 3-14 every day Comm uni 00:00: ty 00 Health FANAPT 2020- No 1{Table 2xD 1 Twice a [place] (ILOPERIDON 3-14 12-03 t} Day Communi E) 8 MG 00:00: 00:00 ty TABS 00 :00 Health BREO 2020- No 1 [facility] ELLIPTA 3-14 12-03 inhalation Commu ni (FLUTICASON 00:00: 00:00 Every Day ty E 00 :00 Health FUROATE-BAMBI ANTEROL) 100-25 MCG/INH AEPB (MECLIZINE 2017- No 1 by mouth [facility] HCL) 25 MG 06-29 3 times a Com mychal TABS 00:00: 00:00 day as ty 00 :00 needed for Health dizziness (NICOTINE) 2018- No [facility] 21-14-7 1-19 02-08 Communi MG/24HR KIT 00:00: 00:00 ty 00 :00 Health (NAPROXEN) 2018- No 1 by mouth [facility] 500 MG TABS 03-24- twice a Comm uni 00:00: 00:00 day as ty 00 :00 needed for Health pain BENZTROPINE Yes [facility] MESYLATE 03-08 Communi (BENZTROPIN 00:00: ty E MESYLATE 00 Health TABS) TABS LIPITOR 2020- No [facility] (ATORVASTAT 03-08 Communi IN CALCIUM 00:00: 00:00 ty TABS) TABS 00 :00 Health DULOXETINE 2020- No [facility] HCL 03-08 Communi (DULOXETINE 00:00: 00:00 ty HCL CPEP) 00 :00 Health CPEP OMEPRAZOLE 2018- No [facility] CPDR 03-08 Communi 00:00: 00:00 ty 00 :00 Health SEROQUEL 2016-0 2019- No [facility] (QUETIAPINE 03-08 Communi FUMARATE 00:00: 00:00 ty TABS) TABS 00 :00 Health VENLAFAXINE 2018- No Leg[facility] y HCL 03-08 Communi (VENLAFAXIN 00:00: 00:00 ty E HCL TABS) 00 :00 Health TABS TRIUMEQ Yes Husam One tablet [place] (ABACAVIR-D 03-18 [place] daily with Communi OLUTEGRAVIR 00:00: or without ty -LAMIVUD) 00 food Health 600-50-300 MG TABS SPIRIVA Yes Husam Inhale 1 [facility] HANDIHALER - [place] cap Every C ommuni (TIOTROPIUM 00:00: Day ty BROMIDE 00 Health MONOHYDRATE ) 18 MCG CAPS PROAIR HFA 2020- No Husam 2 puffs Leg acy (ALBUTEROL 03-18 [place] every 4 - Communi SULFATE) 00:00: 00:00 6 hours as ty 108 (90 00 :00 needed Health Base) MCG/ACT AERS Lipitor Lipitor [...] Cymbalta Yes Terrence [address] [facility] Fanapt Fanapt Yes Terrence 1 tablet [facility] Immunizations Ordered Immunization Filled Immunization Date Status Commen ts Source Name Name influenza, 2020-09-09 Completed [facility] ty unspecified 00:00:00 Health formulation influenza, 2019-09-28 Completed [facility] ty unspecified [...] Time Observation Value Comments Source oxygen saturation, 2020-12-02 10:39:40 94 /min [facility] oximetry Health blood pressure, 2020-12-02 10:39:40 73 mm[Hg] [facility] Community diastolic Health blood pressure, 2020-12-02 10:39:40 105 mm[Hg] [facility] systolic Health pulse rate 2020-12-02 10:39:40 104 /min [facility] C ommunity Health temperature E&M 2020-12-02 10:39:40 98.1 [degF] Legac [facility] Health weight E&M 2020-12-02 10:39:40 209 [lb_av] [facility] C ommunity Health weight in kilograms 2020-12-02 10:39:40 95 [facility] height in 2020-12-02 10:39:40 157.48 cm [facility] om[facility] centimeters E&M Health Systolic (mm Hg) 2020-10-16 20:44:00 Miguelito rial Oscar Diastolic (mm Hg) 2020-10-16 [facility] 2020-10-16 20:44:00 [facility] Oscar Respitory Rate 2020-10-16 20:44:00 [facility] [place] Height 2020-10-16 20:44:00 162.56 cm [facility] 2020-10-16 20:44:00 [facility] BMI Calculated 2020-10-16 20:44:00 Memori al [place] oxygen saturation, 2020-05-28 09:58:55 95 /min [facility] oximetry Health blood pressure, 2020-05-28 09:58:55 70 mm[Hg] Legac [facility] diastolic Health blood pressure, 2020-05-28 09:58:55 125 mm[Hg] [facility] systolic Health pulse rate 2020-05-28 09:58:55 89 /min [facility] Health temperature E&M 2020-05-28 09:58:55 98.2 [degF] [facility] Health height in 2020-05-28 09:58:55 157.48 cm [facility] C ommunity centimeters E&M Health oxygen saturation, 2020-02-07 10:26:43 90 /min [facility] oximetry Health blood pressure, 2020-02-07 10:26:43 71 mm[Hg] [facility] diastolic Health blood pressure, 2020-02-07 10:26:43 101 mm[Hg] Legac y Community systolic Health pulse rate 2020-02-07 10:26:43 112 /min [facility] temperature site 2020-02-07 10:26:43 oral Lega [facility] Health temperature E&M 2020-02-07 10:26:43 98.7 [degF] [facility] Health weight E&M 2020-02-07 10:26:43 193 [lb_av] [facility] weight in kilograms 2020-02-07 10:26:43 87.73 kg L [facility] E Health height in 2020-02-07 10:26:43 157.48 cm [facility] ommunity centimeters E&M Health oxygen saturation, 2019-10-04 07:16:02 98 /min [facility] oximetry Health blood pressure, 2019-10-04 07:16:02 68 mm[Hg] Legac [facility] diastolic Health blood pressure, 2019-10-04 07:16:02 103 mm[Hg] Legac [facility] systolic Health pulse rate 2019-10-04 07:16:02 81 /min [facility] temperature E&M 2019-10-04 07:16:02 98.6 [degF] [facility] Health weight E&M 2019-10-04 07:16:02 169.60 [lb_av] [facility] Health weight in kilograms 2019-10-04 07:16:02 77.09 kg L [facility] E& Health temperature site 2019-10-04 07:16:02 oral Lega [facility] Health height in 2019-10-04 07:16:02 157.48 cm [facility] C ommunity centimeters E&M Health oxygen saturation, 2019-06-07 09:23:42 89 /min [facility] oximetry Health pulse rate 2019-06-07 09:23:42 95 /min [facility] temperature [facility] 2019-06-07 09:23:42 oral Lega [facility] Health temperature E&M 2019-06-07 09:23:42 97.3 [degF] [facility] Health blood pressure, 2019-06-07 09:23:42 60 mm[Hg] [facility] diastolic Health blood pressure, 2019-06-07 09:23:42 92 mm[Hg] [facility] systolic Health weight E&M 2019-06-07 09:23:42 180 [lb_av] [facility] Health weight in kilograms 2019-06-07 09:23:42 81.82 kg L [facility] E Health height in 2019-06-07 09:23:42 157.48 cm [facility] om[facility] centimeters E&M Health blood pressure, 2019-02-08 07:52:46 80 mm[Hg] Leg[facility] diastolic Health blood pressure, 2019-02-08 07:52:46 110 mm[Hg] [facility] systolic Health oxygen saturation, 2019-02-08 07:52:46 89 /min [facility] oximetry Health pulse rate 2019-02-08 07:52:46 126 /min [facility]munity Health temperature E&M 2019-02-08 07:52:46 98.6 [degF] [facility] Health weight E&M 2019-02-08 07:52:46 189.13 [lb_av] [facility] Health weight in kilograms 2019-02-08 07:52:46 85.97 kg L [facility] E& Health temperature site 2019-02-08 07:52:46 oral Lega cy [facility] Health height in 2019-02-08 07:52:46 157.48 cm [facility] om[facility] centimeters E&M Health oxygen saturation, 2018-09-26 07:50:53 98 /min [facility] oximetry Health respiratory rate E&M 2018-09-26 07:50:53 16 /min [facility] Health pulse rate 2018-09-26 07:50:53 78 /min [facility] temperature E&M 2018-09-26 07:50:53 98.2 [degF] [facility] Health blood pressure, 2018-09-26 07:50:53 73 mm[Hg] [facility] diastolic Health blood pressure, 2018-09-26 07:50:53 96 mm[Hg] [facility] systolic Health weight E&M 2018-09-26 07:50:53 188.25 [lb_av] [facility] Health weight in kilograms 2018-09-26 07:50:53 85.57 kg L [facility] E&M Health temperature site 2018-09-26 07:50:53 oral Lega [facility] Health height in 2018-09-26 07:50:53 157.48 cm [facility] C ommunity centimeters E&M Health pulse rate 2018-02-21 08:03:52 120 /min [facility]ity Health blood pressure, 2018-02-21 08:03:52 79 mm[Hg] [facility] diastolic Health blood pressure, 2018-02-21 08:03:52 120 mm[Hg] [facility] systolic Health respiratory rate E&M 2018-02-21 08:03:52 20 /min [facility] Health oxygen saturation, 2018-02-21 08:03:52 99 /min [facility] oximetry Health temperature site 2018-02-21 08:03:52 tympanic Lega [facility] Health temperature E&M 2018-02-21 08:03:52 97.7 [degF] Legac [facility] Health weight E&M 2018-02-21 08:03:52 177 [lb_av] [facility] Health weight in kilograms 2018-02-21 08:03:52 80.45 kg L [facility] E& Health height in 2018-02-21 08:03:52 157.48 cm [facility] C ommunity centimeters E&M Health blood pressure, 2017-10-13 08:35:18 74 mm[Hg] [facility] diastolic Health blood pressure, 2017-10-13 08:35:18 105 mm[Hg] [facility] systolic Health pulse rate 2017-10-13 08:35:18 104 /min [facility] Health respiratory rate E&M 2017-10-13 08:35:18 16 /min [facility] Health oxygen saturation, 2017-10-13 08:35:18 96 /min [facility] oximetry Health temperature site 2017-10-13 08:35:18 tympanic Lega [facility] Health temperature E&M 2017-10-13 08:35:18 99 [degF] [facility] Health weight E&M 2017-10-13 08:35:18 175 [lb_av] [facility] ommunity Health weight in kilograms 2017-10-13 08:35:18 79.55 kg L [facility] E& Health height in 2017-10-13 08:35:18 157.48 cm [facility] centimeters E&M Health blood pressure, 2017-06-29 08:33:26 50 mm[Hg] [facility] diastolic Health blood pressure, 2017-06-29 08:33:26 86 mm[Hg] Legac [facility] systolic Health pulse rate 2017-06-29 08:33:26 100 /min [facility] Health respiratory rate E&M 2017-06-29 08:33:26 24 /min [facility] Health oxygen saturation, 2017-06-29 08:33:26 97 /[facility] 2017-06-29 08:33:26 tympanic Lega [facility] Health temperature E&M 2017-06-29 08:33:26 98.2 [degF] Legac [facility] Health weight E&M 2017-06-29 08:33:26 169 [lb_av] [facility] weight in kilograms 2017-06-29 08:33:26 76.82 kg L [facility] E& Health height in 2017-06-29 08:33:26 157.48 cm [facility] ommunity centimeters E&M Health blood pressure, 2017-06-17 07:40:48 68 mm[Hg] [facility] diastolic Health blood pressure, 2017-06-17 07:40:48 97 mm[Hg] Legac [facility] systolic Health pulse rate 2017-06-17 07:40:48 106 /min [facility] oxygen saturation, 2017-06-17 07:40:48 98 /min [facility] temperature E&M 2017-06-17 07:40:48 97.5 [degF] Leg[facility] Health weight E&M 2017-06-17 07:40:48 170.13 [lb_av] [facility] Health weight in kilograms 2017-06-17 07:40:48 77.33 kg L [facility] E&M Health temperature site 2017-06-17 07:40:48 tympanic Lega [facility] Health height in 2017-06-17 07:40:48 157.48 cm [facility] om[facility]ity centimeters E&M Health blood pressure, 2017-04-19 10:19:07 60 mm[Hg] Legac y Community diastolic Health blood pressure, 2017-04-19 10:19:07 108 mm[Hg] [facility] systolic Health pulse rate 2017-04-19 10:19:07 75 /min [facility] respiratory rate E&M 2017-04-19 10:19:07 24 [facility] 2017-04-19 10:19:07 tympanic Lega [facility] oxygen saturation, 2017-04-19 10:19:07 96 /[facility] 2017-04-19 10:19:07 99.1 [degF] Legac [facility] weight E&M 2017-04-19 10:19:07 172 [facility]] [facility] in kilograms 2017-04-19 10:19:07 78.18 kg L [facility] E& Health height in 2017-04-19 10:19:07 157.48 [facility] centimeters E&M Health blood pressure, 2016-11-02 08:40:55 79 mm[Hg] Legac [facility] diastolic Health blood pressure, 2016-11-02 08:40:55 113 mm[Hg] Legac [facility] systolic Health pulse rate 2016-11-02 08:40:55 101 /min [facility] site 2016-11-02 08:40:55 tympanic Lega [facility] oxygen saturation, 2016-11-02 08:40:55 97 /min [facility] temperature E&M 2016-11-02 08:40:55 97.6 [degF] [facility]ac [facility] weight E&M 2016-11-02 08:40:55 180.60 [lb_av] [facility] weight in kilograms 2016-11-02 08:40:55 82.09 kg L [facility] E& Health height in 2016-11-02 08:40:55 157.48 [facility] centimeters E&M Health oxygen saturation, 2016-07-07 08:32:30 82 /min [facility] blood pressure, 2016-07-07 08:32:30 83 mm[Hg] Legac [facility] diastolic Health blood pressure, 2016-07-07 08:32:30 119 mm[Hg] [facility] systolic Health pulse rate 2016-07-07 08:32:30 82 /min [facility] temperature site 2016-07-07 08:32:30 tympanic Lega [facility] temperature E&M 2016-07-07 08:32:30 96.4 [degF] Legac [facility] weight E&M 2016-07-07 08:32:30 170.40 [lb_av] [facility] weight in kilograms 2016-07-07 08:32:30 77.45 kg L [facility] E& Health height in 2016-07-07 08:32:30 157.48 cm [facility] centimeters E&M Health blood pressure, 2016-03-24 15:04:18 74 mm[Hg] Legac [facility] diastolic Health blood pressure, 2016-03-24 15:04:18 107 mm[Hg] [facility] systolic Health pulse rate 2016-03-24 15:04:18 92 /min [facility] temperature site 2016-03-24 15:04:18 tympanic Lega [facility] oxygen saturation, 2016-03-24 15:04:18 94 /min [facility] oximetry Health temperature E&M 2016-03-24 15:04:18 97.2 [degF] Legac [facility] Health weight E&M 2016-03-24 15:04:18 147.70 [lb_av] [facility] weight in kilograms 2016-03-24 15:04:18 67.14 kg L [facility] E& Health height in 2016-03-24 15:04:18 157.48 cm [facility] centimeters E&M Health pulse rate 2016-03-08 09:29:07 91 /min [facility] blood pressure, 2016-03-08 09:29:07 76 mm[Hg] Legac [facility] diastolic Health blood pressure, 2016-03-08 09:29:07 112 mm[Hg] Legac [facility] systolic Health oxygen saturation, 2016-03-08 09:29:07 94 /min [facility] oximetry Health temperature site 2016-03-08 09:29:07 tympanic Lega [facility] temperature E&M 2016-03-08 09:29:07 96.9 [degF] Legac [facility] weight E&M 2016-03-08 09:29:07 137 [lb_av] [facility] Health weight in kilograms 2016-03-08 09:29:07 62.27 kg L [facility] E& Health height in 2016-03-08 09:29:07 157.48 cm [facility] C ommunity centimeters E&M Health oxygen saturation, 2015-07-01 10:02:02 94 /min [facility] oximetry Health blood pressure, 2015-07-01 10:02:02 64 mm[Hg] [facility] diastolic Health blood pressure, 2015-07-01 10:02:02 89 mm[Hg] [facility] systolic Health pulse rate 2015-07-01 10:02:02 103 /min [facility] Health temperature site 2015-07-01 10:02:02 oral Lega cy [facility] temperature E&M 2015-07-01 10:02:02 98.5 [degF] [facility] weight E&M 2015-07-01 10:02:02 127.40 [lb_av] [facility] weight in kilograms 2015-07-01 10:02:02 57.91 kg L [facility] E& Health height in 2015-07-01 10:02:02 157.48 cm [facility] C ommunity centimeters E&M Health blood pressure, 2015-03-18 10:06:41 62 mm[Hg] Legac [facility] diastolic Health blood pressure, 2015-03-18 10:06:41 86 mm[Hg] Legac [facility] systolic Health temperature E&M 2015-03-18 10:06:41 98.8 [degF] Legac [facility] height in 2015-03-18 10:06:41 157.48 cm [facility] C ommunity centimeters E&M Health oxygen saturation, 2015-03-18 10:06:41 93 /min [facility] oximetry Health pulse rate 2015-03-18 10:06:41 111 /min [facility] Health weight E&M 2015-03-18 10:06:41 137 [lb_av] [facility] Health weight in kilograms 2015-03-18 10:06:41 62.27 kg L [facility] E&M [facility] temperature site 2015-03-18 10:06:41 temporal [facility] Procedures Procedure Date / Time Performing Clinician Source Performed Primary Care Medical 2016-03-08 10:18:09 Dilma Hunt [facility] Case Management [facility] Primary Care Service 2015-07-02 08:59:43 Zee Rodriguez [facility] Primary Care - 2015-03-21 13:05:22 Zee Rodriguez Co mmunity Assesment-Brief - SLW [facility] Primary Care Service 2015-03-21 13:05:22 Zee Rodriguez [facility] Venipuncture 2015-03-03 09:52:50 Elodia Cespedes [facility] Encounters Start End Encounter Admission Attending Care Care Encounter Source Date/Time Date/Time Type Type Clinicians Facility Department ID 2020-12-05 2020-12-05 Office VERO Corbin Encounte r/ Legacy 00:00:00 00:00:00 Visit Vasyl [id number] Com mychal [id number] [facility] 2020-12-03 2020-12-03 Office VERO Vital Encounter / Legacy 00:00:00 00:00:00 Visit Husam [id number] Com mychal [id number] Health 2020-12-02 2020-12-02 [facility] / Legacy 00:00:00 00:00:00 Visit Husam [id number] Com mychal [id number] Health 2020-12-02 2020-12-02 Office Husam Vital [facility] Enco unter/ Legacy 00:00:00 00:00:00 Visit Nkechi [place] [id number] Communi 582008 Health 2020-11-18 2020-11-18 Office Husam Vital OPHELIA Enco unter/ Legacy 00:00:00 00:00:00 Visit Gavi Em [id number] Communi [id number] [facility] 2020-11-18 2020-11-18 Office VERO Vital Encounter / Legacy 00:00:00 00:00:00 Visit Husam [id number] Com mychal [id number] [facility] 2020-10-16 2020-10-16 Outpatient [facility] [id number] 14:30:00 23:59:59 French 00 Clarence 2020-09-24 2020-09-24 Office Desktop, [facility] Care Coordination VERO JACINTO Encounter/ Legacy 00:00:00 00:00:00 Visit Oconnor, Marlee [id number] Nadeen Lowry 41696 0 ty Health 2020-07-01 2020-07-01 Office Ritchie JACINTO OPHELIA Encounte r/ Legacy 00:00:00 00:00:00 Visit Teresa [id number] Com mychal Lujan [id number] Health 2020-06-16 2020-06-16 Office VERO Mcnamara Encounter/ Legacy 00:00:00 00:00:00 Visit Clarence [id number] Com mychal 021609 ty Health 2020-05-28 2020-05-28 Office VERO Vital Encounter / Legacy 00:00:00 00:00:00 Visit Husam [id number] Com mychal 773137 ty Health 2020-05-28 2020-05-28 Office Husam Vital Enco unter/ Legacy 00:00:00 00:00:00 Visit Nkechi [place] [id number] Communi 094660 ty Health 2020-05-28 2020-05-28 Office VERO Vital Encounter / Legacy 00:00:00 00:00:00 Visit Husam [id number] Com mychal 977331 ty Health 2020-02-07 2020-02-07 Office VERO Vital Encounter / Legacy 00:00:00 00:00:00 Visit Husam [id number] Com mychal 938053 ty Health 2020-02-07 2020-02-07 Office Husam Vital Enco unter/ Legacy 00:00:00 00:00:00 Visit Tai Britt [id number] Communi 731150 ty Health 2020-02-07 2020-02-07 Office VERO Vital Encounter / Legacy 00:00:00 00:00:00 Visit Husam [id number] Com mychal 513342 ty Health 2020-02-07 2020-02-07 Office Zahraa VERO PHAM Encounter / Legacy 00:00:00 00:00:00 Visit Husam [id number] Com mychal 040805 ty Health 2019-10-10 2019-10-10 Office NanVERO Encounter/ Legacy 00:00:00 00:00:00 Visit Nkechi [id number] Com mychal 647820 ty Health 2019-10-04 2019-10-04 Office ZahraaVERO Encounter / Legacy 00:00:00 00:00:00 Visit Husam [id number] Com mychal 165684 ty Health 2019-10-04 2019-10-04 Office Husam Vital Enco unter/ Legacy 00:00:00 00:00:00 Visit [place] [id number] 6332 Communi 432457 ty Health 2019-10-04 2019-10-04 Office VERO Vital Encounter / Legacy 00:00:00 00:00:00 Visit Husam [id number] Com mychal 318846 ty Health 2019-10-04 2019-10-04 Office ZahraaVERO Encounter / Legacy 00:00:00 00:00:00 Visit Husam [id number] Com mychal 454485 ty Health 2019-10-04 2019-10-04 Office ZahraaHusam Enco unter/ Legacy 00:00:00 00:00:00 Visit Nkechi [place] [id number] 8155 Communi DuganTai Pena 330878 ty Health 2019-10-02 2019-10-02 Office OconnorVERO Encount er/ Legacy 00:00:00 00:00:00 Visit Marlee [id number] Com mychal 388180 ty Health 2019-06-07 2019-06-07 Office VERO Vital Encounter / Legacy 00:00:00 00:00:00 Visit Husam [id number] Com mychal 643821 ty Health 2019-06-07 2019-06-07 Office VERO Vital Encounter / Legacy 00:00:00 00:00:00 Visit Husam [id number] Com mychal 377611 ty Health 2019-06-07 2019-06-07 Office VERO Vital Encounter / Legacy 00:00:00 00:00:00 Visit Husam [id number] Com mychal 830907 ty Health 2019-06-07 2019-06-07 Office OPHELIA Garcia OPHELIA Encounte r/ Legacy 00:00:00 00:00:00 Visit Palmer [id number] Com mychal 158650 ty Health 2019-06-07 2019-06-07 Office OPHELIA Vital OPHELIA Encounter / Legacy 00:00:00 00:00:00 Visit Husam [id number] Com mychal 232152 ty Health 2019-06-07 2019-06-07 Office Husam Vital [facility] Enco unter/ Legacy 00:00:00 00:00:00 Visit Nkechi [place] [id number] Communi [id number] Health 2019-06-06 2019-06-06 [facility]/ Legacy 00:00:00 00:00:00 Visit Meka [id number] Com mychal 862209 Health 2019-04-19 2019-04-19 Office Status, [facility]/ Legacy 00:00:00 00:00:00 Visit [id number] Com mychal [id number] [facility] 2019-02-22 2019-02-22 [facility] [id number] 14:00:00 14:00:00 [facility] ent Clinics 2019-02-08 2019-02-08 Office OPHELIA Vital OPHELIA Encounter / Legacy 00:00:00 00:00:00 Visit Husam [id number] Com mychal 789170 Health 2019-02-08 2019-02-08 Office VERO Vital Encounter / Legacy 00:00:00 00:00:00 Visit Husam [id number] Com mychal 671380 ty Health 2019-02-08 2019-02-08 Office VERO Vital Encounter / Legacy 00:00:00 00:00:00 Visit Husam [id number] Com mychal 143072 ty Health 2019-02-08 2019-02-08 Office Nemdaviek, VERO JACINTO Encounter / Legacy 00:00:00 00:00:00 Visit Husam [id number] Com mychal 868802 ty Health 2019-02-08 2019-02-08 Office Nemandrew, VERO JACINTO Encounter / Legacy 00:00:00 00:00:00 Visit Husam [id number] Com mychal 160381 ty Health 2019-02-08 2019-02-08 Office Nemandrew, Husam VERO JACINTO Enco unter/ Legacy 00:00:00 00:00:00 Visit Valentine Lucas [id number] Communi 205207 ty Health 2019-02-05 2019-02-05 Office OconnorVERO cox Encount er/ Legacy 00:00:00 00:00:00 Visit Marlee [id number] Com mychal 088631 ty Health 2019-02-02 2019-02-02 Office VERO Oconnor Encount er/ Legacy 00:00:00 00:00:00 Visit Marlee [id number] Com mychal 057776 ty Health 2018-12-29 2018-12-29 Office OconnorVREO vergara Encount er/ Legacy 00:00:00 00:00:00 Visit Marlee [id number] Com mychal 680578 ty Health 2018-12-25 2018-12-25 Office OconnorMarlee vergara Encounter/ Legacy 00:00:00 00:00:00 Visit Phi Pearce [id number] Communi 035938 ty Health 2018-12-25 2018-12-25 Office AntonioVERO hopkins Encounter / Legacy 00:00:00 00:00:00 Visit Husam [id number] Com mychal 824636 ty Health 2018-12-22 2018-12-22 Office VERO Oconnor Encount er/ Legacy 00:00:00 00:00:00 Visit Marlee [id number] Com mychal 039883 ty Health 2018-09-28 2018-09-28 Office EstrellaVERO morales Encounter / Legacy 00:00:00 00:00:00 Visit Husam [id number] Com mychal 288431 ty Health 2018-09-28 2018-09-28 Office Status, Fax VERO PHAM Encoun ter/ Legacy 00:00:00 00:00:00 Visit [id number] Com mychal 099379 ty Health 2018-09-26 2018-09-26 Office Nemecek, VERO JACINTOH Encounter / Legacy 00:00:00 00:00:00 Visit Husam [id number] Com mychal 505762 ty Health 2018-09-26 2018-09-26 Office Nemecek, VERO JACINTO Encounter / Legacy 00:00:00 00:00:00 Visit Husam [id number] Com mychal 944721 ty Health 2018-09-26 2018-09-26 Office Nemdaviek, VERO JACINTO Encounter / Legacy 00:00:00 00:00:00 Visit Husam [id number] Com mychal 074732 ty Health 2018-09-26 2018-09-26 Office Nemdaviek, VERO JACINTO Encounter / Legacy 00:00:00 00:00:00 Visit Husam [id number] Com mychal 016379 ty Health 2018-09-26 2018-09-26 Office Nemandrew, Husam JACINTO OPHELIA Enco unter/ Legacy 00:00:00 00:00:00 Visit Sisi Obrien [id number] Communi 848135 ty Health 2018-09-25 2018-09-25 Office Nemdaviekellie, VERO JACINTO Encounter / Legacy 00:00:00 00:00:00 Visit Husam [id number] Com mychal 527395 ty Health 2018-09-23 2018-09-23 Office VERO Oconnor Encount er/ Legacy 00:00:00 00:00:00 Visit Marlee [id number] Com mychal 799740 ty Health 2018-09-07 2018-09-07 Office Marlee Oconnor Encounter/ Legacy 00:00:00 00:00:00 Visit Luci Ríos [id number] Communi 297156 ty Health 2018-05-05 2018-05-05 Office VERO Rosas Encoun ter/ Legacy 00:00:00 00:00:00 Visit Marcelle [id number] Com mychal 654274 ty Health 2018-02-21 2018-02-21 Office Status, Fax OPHELIA OPHELIA Encoun ter/ Legacy 00:00:00 00:00:00 Visit [id number] Com mychal 761906 ty Health 2018-02-21 2018-02-21 Office Status, Fax OPHELIA OPHELIA Encoun ter/ Legacy 00:00:00 00:00:00 Visit [id number] Com mychal 051021 ty Health 2018-02-21 2018-02-21 Office Status, Fax OPHELIA OPHELIA Encoun ter/ Legacy 00:00:00 00:00:00 Visit [id number] Com mychal 555797 ty Health 2018-02-21 2018-02-21 Office VERO Vital Encounter / Legacy 00:00:00 00:00:00 Visit Husam [id number] Com mychal 577076 ty [facility] 2018-02-21 2018-02-21 Office VERO Vital Encounter / Legacy 00:00:00 00:00:00 Visit Husam [id number] Com mychal 137136 ty [facility] 2018-02-21 2018-02-21 Office Husam Vital Enco unter/ Legacy 00:00:00 00:00:00 Visit Nkechi [place] [id number] Ema Gupta 61952 0 ty Juan A [facility] 2018-02-14 2018-02-14 Office [facility] OPHELIA OPHELIA Encoun ter/ Legacy 00:00:00 00:00:00 Visit jaron [id number] Com mychal Choice [id number] [facility] 2018-02-08 2018-02-08 Office VERO Rosas Encoun ter/ Legacy 00:00:00 00:00:00 Visit Marcelle [id number] Com mychal 967056 ty Health 2018-02-07 2018-02-07 Office VERO Vital Encounter / Legacy 00:00:00 00:00:00 Visit Husam [id number] Com mychal 628611 ty Health 2018-02-07 2018-02-07 Office Husam Vital Enco unter/ Legacy 00:00:00 00:00:00 Visit Ankit Leigha Cooper [id number] Communi 580723 ty Health 2018-01-25 2018-01-25 Office VERO Hugo Encounter/ Legacy 00:00:00 00:00:00 Visit Verito [id number] C ommuni 712960 ty Health 2018-01-25 2018-01-25 Office VERO Zarate Encounte r/ Legacy 00:00:00 00:00:00 Visit Vanessa [id number] Com mychal 556880 ty Health 2018-01-17 2018-01-17 Office VERO Vital Encounter / Legacy 00:00:00 00:00:00 Visit Husam [id number] Com mychal 833378 ty Health 2018-01-17 2018-01-17 Office Jose Lui En counter/ Legacy 00:00:00 00:00:00 Visit Marcelle Rosas [id number] Communi 038918 ty Health 2017-10-26 2017-10-26 Office VERO Rosas Encoun ter/ Legacy 00:00:00 00:00:00 Visit Marcelle [id number] Com mychal 370186 ty Health 2017-10-25 2017-10-25 Office VERO Rosas Encoun ter/ Legacy 00:00:00 00:00:00 Visit Marcelle [id number] Com mychal 774550 ty Health 2017-10-24 2017-10-24 Office VERO Cameron Encounter / Legacy 00:00:00 00:00:00 Visit Angeles [id number] Com mychal 440234 ty Health 2017-10-13 2017-10-13 Office VERO Vital Encounter / Legacy 00:00:00 00:00:00 Visit Husam [id number] Com mychal 476770 ty Health 2017-10-13 2017-10-13 Office VERO Hugo Encounter/ Legacy 00:00:00 00:00:00 Visit Luann [id number] Co mmuni 781880 ty Health 2017-10-13 2017-10-13 Office VERO Vital Encounter / Legacy 00:00:00 00:00:00 Visit Husam [id number] Com mychal 214035 ty Health 2017-10-13 2017-10-13 Office VERO Vital Encounter / Legacy 00:00:00 00:00:00 Visit Husam [id number] Com mychal 603567 ty Health 2017-10-13 2017-10-13 Office Husam Vital Enco unter/ Legacy 00:00:00 00:00:00 Visit Nkechi [place] [id number] [facility] [place] Cameron [id number] Velazco [facility] 2017-10-12 2017-10-12 [facility]/ Legacy 00:00:00 00:00:00 Visit jaron [id number] Com mychal Choice [id number] Health 2017-07-05 2017-07-05 Office NemHusam morales Enco unter/ Legacy 00:00:00 00:00:00 Visit Ema Pillai [id number] [facility] [place] Cameron [id number] [facility] Romeo Fonsecaqueline 2017-06-29 2017-06-29 Office Zahraa, Husam JACINTO OPHELIA Enco unter/ Legacy 00:00:00 00:00:00 Visit Molly Velazco [id number] [facility] [id number] 2017-06-29 2017-06-29 Office VREO Vital Encounter / Legacy 00:00:00 00:00:00 Visit Husam [id number] Com mychal 233811 ty Health 2017-06-29 2017-06-29 Office NemVERO morales LC Encounter / Legacy 00:00:00 00:00:00 Visit Husam [id number] Com mychal 533495 ty Health 2017-06-29 2017-06-29 Office Husam Vital OPHELIA Enco unter/ Legacy 00:00:00 00:00:00 Visit Nkechi [place] [id number] [facility] 053254 ty Health 2017-06-28 2017-06-28 Office [facility] OPHELIA OPHELIA Encoun ter/ Legacy 00:00:00 00:00:00 Visit jaron [id number] Com mychal Choice 912975 ty Health 2017-06-20 2017-06-20 Office ZahraaOPHELIA OPHELIA Encounter / Legacy 00:00:00 00:00:00 Visit Husam [id number] Com mychal 999465 ty Health 2017-06-17 2017-06-17 Office ZahraaVERO Encounter / Legacy 00:00:00 00:00:00 Visit Husam [id number] Com mychal 856352 ty Health 2017-06-17 2017-06-17 Office AntonioVERO hopkins Encounter / Legacy 00:00:00 00:00:00 Visit Husam [id number] Com mychal 373654 ty Health 2017-06-17 2017-06-17 Office Husam Vital OPHELIA Enco unter/ Legacy 00:00:00 00:00:00 Visit Iesha Lucas [id number] 7911 Communi 102093 ty Health 2017-06-14 2017-06-14 [facility] Encoun ter/ Legacy 00:00:00 00:00:00 Visit jaron [id number] Com mychal Choice 575128 ty Health 2017-06-09 2017-06-09 Office Rosas, LC OPHELIA Encoun ter/ Legacy 00:00:00 00:00:00 Visit Marcelle [id number] Com mychal 788153 ty Health 2017-06-08 2017-06-08 Office Rosas, LC OPHELIA Encoun ter/ Legacy 00:00:00 00:00:00 Visit Marcelle [id number] Com mychal 302383 ty Health 2017-05-30 2017-05-30 Office Ashutosh JACINTO OPHELIA Encounter/ Legacy 00:00:00 00:00:00 Visit Kyra [id number] Co obed Morocho 597648 ty Health 2017-05-30 2017-05-30 Office Ashutosh JACINTO Encounter/ Legacy 00:00:00 00:00:00 Visit Kyra [id number] Co obed Morocho 752672 ty Health 2017-05-27 2017-05-27 Office VERO Vital Encounter / Legacy 00:00:00 00:00:00 Visit Husam [id number] Com mychal 750092 ty Health 2017-05-26 2017-05-26 Office Marcelle RosasH Encounter/ Legacy 00:00:00 00:00:00 Visit Beau Rodriguez [id number] Communi 105175 Health 2017-05-25 2017-05-25 Office VERO Vital Encounter / Legacy 00:00:00 00:00:00 Visit Husam [id number] Com mychal 223341 Health 2017-05-25 2017-05-25 Office VERO Vital Encounter / Legacy 00:00:00 00:00:00 Visit Husam [id number] Com mychal 727800 ty Health 2017-05-25 2017-05-25 Office VERO Rosas Encoun ter/ Legacy 00:00:00 00:00:00 Visit Marcelle [id number] Com mychal [id number] [facility] 2017-05-24 2017-05-24 Office Shaye Boyd [facility] Enco unter/ Legacy 00:00:00 00:00:00 Visit Polina Neal [id number] 64 [facility] Charisma Lutz [id number] Beau Rodriguez [facility] 2017-05-18 2017-05-18 Office Ashutosh JACINTO Encounter/ Legacy 00:00:00 00:00:00 Visit Kyra [id number] Co obed Morocho [id number] [facility] 2017-05-13 2017-05-13 Office Husam Vital Enco unter/ Legacy 00:00:00 00:00:00 Visit Zee Rodriguez [id number] [facility] [id number] [facility] 2017-04-22 2017-04-22 Office Bailee Cruz [facility] Encounter/ Legacy 00:00:00 00:00:00 Visit Baltazar Davison [id number] Communi 014992 Health 2017-04-22 2017-04-22 Office VERO Davison Encounter / Legacy 00:00:00 00:00:00 Visit Baltazar [id number] Com mychal 227841 Health 2017-04-19 2017-04-19 Office VERO Vital Encounter / Legacy 00:00:00 00:00:00 Visit Husam [id number] Com mychal 709509 ty Health 2017-04-19 2017-04-19 Office VERO Vital OPHELIAFransisca Encounter / Legacy 00:00:00 00:00:00 Visit Husam [id number] Com mychal 664862 ty Health 2017-04-19 2017-04-19 Office Husam Vital OPHELIAFransisca Enco unter/ Legacy 00:00:00 00:00:00 Visit Nkechi [place] [id number] Communi 507286 ty Health 2017-04-18 2017-04-18 Office Kori PHAM LC Encoun ter/ Legacy 00:00:00 00:00:00 Visit jaron [id number] Com mychal Choice 817453 ty Health 2017-03-11 2017-03-11 Office Husam Vital OPHELIAFransisca Enco unter/ Legacy 00:00:00 00:00:00 Visit Polina Neal [id number] Communi 765984 ty Health 2017-03-01 2017-03-01 Office VERO Vital OPHELIAFransisca Encounter / Legacy 00:00:00 00:00:00 Visit Husam [id number] Com mychal 082522 ty Health 2017-02-17 2017-02-17 Office VERO Valladares OPHELIAFransisca Encounter/ Legacy 00:00:00 00:00:00 Visit Malu [id number] C ommuni 819428 ty Health 2016-12-09 2016-12-09 Office VERO Valladares OPHELIAFransisca Encounter/ Legacy 00:00:00 00:00:00 Visit Malu [id number] C ommuni 877224 ty Health 2016-11-02 2016-11-02 Office VERO Vital OPHELIAFransisca Encounter / Legacy 00:00:00 00:00:00 Visit Husam [id number] Com mychal 826270 ty Health 2016-11-02 2016-11-02 Office VERO Vital OPHELIAFransisca Encounter / Legacy 00:00:00 00:00:00 Visit Husam [id number] Com mychal 390247 ty Health 2016-11-02 2016-11-02 Office Husam Vital OPHELIA Enco unter/ Legacy 00:00:00 00:00:00 Visit Nkechi [place] [id number] 2060 Communi 619681 ty Health 2016-10-19 2016-10-19 Office [facility] En[facility] / Legacy 00:00:00 00:00:00 Visit Husam [id number] Com mychal 536551 ty Health 2016-10-19 2016-10-19 Office Zahraa VERO JACINTO Encounter / Legacy 00:00:00 00:00:00 Visit Husam [id number] Com mychal 287500 ty Health 2016-09-21 2016-09-21 Office Tera, [facility] Encount er/ Legacy 00:00:00 00:00:00 Visit Tara [id number] Com mychal 051367 ty Health 2016-08-31 2016-08-31 Office Blaine OPHELIA OPHELIA Encounter/ Legacy 00:00:00 00:00:00 Visit Malu [id number] C ommuni 475729 Health 2016-07-09 2016-07-09 Office Status, Fax [facility] Encoun ter/ Legacy 00:00:00 00:00:00 Visit [id number] Com mychal 701053 ty Health 2016-07-09 2016-07-09 Office Status, Fax [facility] Encoun ter/ Legacy 00:00:00 00:00:00 Visit [id number] Com mychal 039317 ty Health 2016-07-07 2016-07-07 Office ZahraaVERO Encounter / Legacy 00:00:00 00:00:00 Visit Husam [id number] Com mychal 179090 ty Health 2016-07-07 2016-07-07 Office Nemandrew [facility] En[facility] / Legacy 00:00:00 00:00:00 Visit Husam [id number] Com mychal [id number] ty Health 2016-07-07 2016-07-07 Office [facility] Legacy 00:00:00 00:00:00 Visit Husam [id number] Com mychal 772206 ty Health 2016-07-07 2016-07-07 Office [facility] Enco unter/ Legacy 00:00:00 00:00:00 Visit Nkechi [place] [id number] [facility] 574202 ty Health 2016-07-01 2016-07-01 Office VERO Perdomo Encounter/ Legacy 00:00:00 00:00:00 Visit Remy [id number] Com mychal 881577 ty Health 2016-06-28 2016-06-28 Office DialloVERO Encounter / Legacy 00:00:00 00:00:00 Visit Chiara [id number] Com mychal 867483 ty Health 2016-03-24 2016-03-24 Office VERO Vital Encounter / Legacy 00:00:00 00:00:00 Visit Husam [id number] Com mychal 783370 ty Health 2016-03-24 2016-03-24 Office VERO Vital Encounter / Legacy 00:00:00 00:00:00 Visit Husam [id number] Com mychal 577075 ty Health 2016-03-24 2016-03-24 Office Huasm Vital Enco unter/ Legacy 00:00:00 00:00:00 Visit Nkechi [place] [id number] [facility] 625798 ty Health 2016-03-24 2016-03-24 Office VERO Vital Encounter / Legacy 00:00:00 00:00:00 Visit Husam [id number] Com mychal 543347 ty Health 2016-03-08 2016-03-08 Office VERO Hunt Encounter / Legacy 00:00:00 00:00:00 Visit Dilma [id number] Com mychal 939312 ty Health 2016-03-08 2016-03-08 Office VERO Perdomo Encounter/ Legacy 00:00:00 00:00:00 Visit Remy [id number] Com mychal 592813 ty Health 2016-03-08 2016-03-08 Office Remy Perdomo Encou nter/ Legacy 00:00:00 00:00:00 Visit Jo Valle [id number] Communi 328857 ty Health 2016-02-26 2016-02-26 Office VERO Perdomo Encounter/ Legacy 00:00:00 00:00:00 Visit Remy [id number] Com mychal 408632 ty Health 2016-01-27 2016-01-27 Office Zahraa, VERO LC Encounter / Legacy 00:00:00 00:00:00 Visit Husam [id number] Com mychal 655196 ty Health 2016-01-22 2016-01-22 Office Yoel, OPHELIA LC Encounter / Legacy 00:00:00 00:00:00 Visit Chiara [id number] Com mychal 032139 ty Health 2015-12-02 2015-12-02 Office Nan, LC LC Encounter/ Legacy 00:00:00 00:00:00 Visit Nkechi [id number] Com mychal 086930 ty Health 2015-10-27 2015-10-27 Office OPHELIA Diallo LC Encounter / Legacy 00:00:00 00:00:00 Visit Chiara [id number] Com mychal 537832 ty Health 2015-09-05 2015-09-05 Office Zahraa, OPHELIA LC Encounter / Legacy 00:00:00 00:00:00 Visit Husam [id number] Com mychal 099472 ty Health 2015-09-05 2015-09-05 Office Zahraa, OPHELIA LC Encounter / Legacy 00:00:00 00:00:00 Visit Husam [id number] Com mychal 418070 ty Health 2015-09-03 2015-09-03 Office Zahraa, LC LC Encounter / Legacy 00:00:00 00:00:00 Visit Husam [id number] Com mychal 316744 ty Health 2015-07-14 2015-07-14 Office Nemandrew, LC LC Encounter / Legacy 00:00:00 00:00:00 Visit Husam [id number] Com mychal 273358 ty Health 2015-07-02 2015-07-02 Office Gentry, LC LC Encounter/ Legacy 00:00:00 00:00:00 Visit Odin [id number] Com mychal 207390 ty Health 2015-07-02 2015-07-02 Office Michael, OPHELIA LC Encounter / Legacy 00:00:00 00:00:00 Visit Zee [id number] Marjorie ommuni 940035 ty Health 2015-07-01 2015-07-01 Office VERO Rodriguez Encounter / Legacy 00:00:00 00:00:00 Visit Zee [id number] C ommuni 089367 ty Health 2015-07-01 2015-07-01 Office AntonioVERO hopkins Encounter / Legacy 00:00:00 00:00:00 Visit Husam [id number] Com mychal 723685 ty Health 2015-07-01 2015-07-01 Office Husam Vital Enco unter/ Legacy 00:00:00 00:00:00 Visit Nkechi [place] [id number] Communi 362293 ty Health 2015-06-17 2015-06-17 Office EstrellaVERO morales Encounter / Legacy 00:00:00 00:00:00 Visit Husam [id number] Com mychal 580431 ty Health 2015-06-17 2015-06-17 Office EstrellaVERO morales Encounter / Legacy 00:00:00 00:00:00 Visit Husam [id number] Com mychal 766205 ty Health 2015-06-17 2015-06-17 Office EstrellaVERO morales Encounter / Legacy 00:00:00 00:00:00 Visit Husam [id number] Com mychal 917541 ty Health 2015-06-17 2015-06-17 Office VERO Vital Encounter / Legacy 00:00:00 00:00:00 Visit Husam [id number] Com mychal 583680 ty Health 2015-03-18 2015-03-18 Office EstrellaVERO morales Encounter / Legacy 00:00:00 00:00:00 Visit Husam [id number] Com mychal 032939 ty Health 2015-03-18 2015-03-18 Office VERO Rodriguez Encounter / Legacy 00:00:00 00:00:00 Visit Zee [id number] C ommuni 851445 ty Health 2015-03-18 2015-03-18 Office VERO Rodriguez Encounter / Legacy 00:00:00 00:00:00 Visit Zee [id number] C ommuni 581436 ty Health 2015-03-18 2015-03-18 Office VERO Vital Encounter / Legacy 00:00:00 00:00:00 Visit Husam [id number] Com mychal 086066 ty Health 2015-03-18 2015-03-18 Office Husam Vital OPHELIA Enco unter/ Legacy 00:00:00 00:00:00 Visit Lexy Ward [id number] Maikol HooknandezDarciValentine 208848 ty Health 2015-03-17 2015-03-17 Office VERO Vital Encounter / Legacy 00:00:00 00:00:00 Visit Husam [id number] Com mychal 231669 ty Health 2015-03-17 2015-03-17 Office SparksOPHELIA OPHELIA Encounter/ Legacy 00:00:00 00:00:00 Visit Sammie [id number] Co mmuni 095772 ty Health 2015-03-15 2015-03-15 Office VERO Sparks Encounter/ Legacy 00:00:00 00:00:00 Visit Sammie [id number] Co mmuni 659585 ty Health 2015-03-13 2015-03-13 Office Lisa JACINTO OPHELIA Encoun ter/ Legacy 00:00:00 00:00:00 Visit Deidra ramon [id number] Co mmuni 153714 ty Health 2015-03-03 2015-03-03 Office VERO Cespedes Encounter/ Legacy 00:00:00 00:00:00 Visit Elodia [id number] Com mychal 461811 ty Health 2015-03-03 2015-03-03 Office VERO Cespedes Encounter/ Legacy 00:00:00 00:00:00 Visit Elodia [id number] Com mychal 704373 ty Health 2015-03-03 2015-03-03 Office VERO Cespedes Encounter/ Legacy 00:00:00 00:00:00 Visit Elodia [id number] Com mychal 417078 ty Health 2015-03-03 2015-03-03 Office Elodia Cespedes Enc ounter/ Legacy 00:00:00 00:00:00 Visit Atif Harris [id number] Communi 441994 ty Health 2015-03-03 2015-03-03 Office VERO Vital Encounter / Legacy 00:00:00 00:00:00 Visit Husam [id number] Counts include 234 beds at the [facility] 156067 ty Health Results Test Description Test Time Test Comments Results Result Comments Source rapid plasma reagin antibody, serum 2020-11-18 10:28:00 Test Item Value Reference Range Interpretation Comme nts rapid plasma reagin antibody, serum (test code = Non Reactive Non R eactive 5291-0) [facility] serum, by PCR, [id number] 10:28:00 Test Item Value Reference Range Interpretation Comments HIV-1RNA, serum, by PCR, <20 copies/mL quantitative (test code = 59846) [facility]LDL cholesterol, [id number] 10:28:00 Test Item Value Reference Range Interpretation Comments LDL cholesterol, serum (test code = 115 mg/dL 0-99 H 2088-11) [facility] Springsvery low density ifafgaadfott0084-91-87 10:28:00 Test Item Value Reference Range Interpretation Comments very low density lipoproteins (test 58 mg/dL 5-40 H code = 2090-7) [facility]HDL cholesterol, [id number] 10:28:00 Test Item Value Reference Range Interpretation Comments HDL cholesterol, serum (test code = 32 mg/dL >39 L 2085-07) [facility] Springstriglyceride, serum, [id number] 10:28:00 Test Item Value Reference Range Interpretation Comments triglyceride, serum, fasting (test 331 mg/dL 0-149 H code = 2571-8) [facility] Springscholesterol, [id number] 10:28:00 Test Item Value Reference Range Interpretation Comments cholesterol, serum (test code = 205 mg/dL 100-199 H 3) [facility]alanine aminotransferase (SGPT), [id number] 10:28:00 Test Item Value Reference Range Interpretation Comments alanine aminotransferase (SGPT), serum 15 1/L 0-32 (test code = 1742-6) [facility] Springsaspartate aminotransferase (SGOT), jknxe8529-28-26 10:28:00 Test Item Value Reference Range Interpretation Comments aspartate aminotransferase (SGOT), 14 1/L 0-40 serum (test code = 1920-8) [facility] Springsalkaline phosphatase, [id number] 10:28:00 Test Item Value Reference Range Interpretation Comments alkaline phosphatase, serum (test code 93 1/L 39-117 = 1783-0) [facility] Healthbilirubin, serum, [id number] 10:28:00 Test Item Value Reference Range Interpretation Comments bilirubin, serum, total (test code <0.2 mg/dL 0.0-1.2 = 1975-2) [facility] Healthalbumin/globulin ratio, [id number] 10:28:00 Test Item Value Reference Range Interpretation Comments albumin/globulin ratio, serum (test 1.4 1.2-2.2 code = 1759-0) [facility] Healthglobulin, [id number] 10:28:00 Test Item Value Reference Range Interpretation Comments globulin, serum (test code = 2336-6) 2.8 1.5-4.5 [facility] Healthalbumin, [id number] 10:28:00 Test Item Value Reference Range Interpretation Comments albumin, serum (test code = 1751-7) 4.0 g/dL 3.8-4.9 [facility] Healthprotein, total, [id number] 10:28:00 Test Item Value Reference Range Interpretation Comments protein, total, serum (test code = 6.8 g/dL 6.0-8.5 2885-2) [facility] Healthcalcium, [id number] 10:28:00 Test Item Value Reference Range Interpretation Comments calcium, serum (test code = 1999-8) 9.2 mg/dL 8.7-10.3 [facility]carbon dioxide, venous [id number] 10:28:00 Test Item Value Reference Range Interpretation Comments carbon dioxide, venous blood (test 27 mmol/L 20-29 code = 7-1) [facility] Healthchloride, [id number] 10:28:00 Test Item Value Reference Range Interpretation Comments chloride, serum (test code = 97 mmol/L 96-106 5-0) [facility] Springspotassium, [id number] 10:28:00 Test Item Value Reference Range Interpretation Comments potassium, serum (test code = 4.1 mmol/L 3.5-5.2 2823-3) [facility] Springssodium, [id number] 10:28:00 Test Item Value Reference Range Interpretation Comments sodium, serum (test code = 2951-2) 139 mmol/L 134-144 [facility] Springsurea nitrogen/creatinine ratio, [id number] 10:28:00 Test Item Value Reference Range Interpretation Comments urea nitrogen/creatinine ratio, serum 15 11-24 (test code = 3097-3) [facility] HealtheGFR if [id number] 10:28:00 Test Item Value Reference Range Interpretation Comments eGFR if 102 >59 (test code = 83733-6) mL/min/((173/100).m2) [facility] SpringsEstimated Glomerular Filtration Rate (calc)2020-11-18 10:28:00 Test Item Value Reference Range Interpretation Comments Estimated Glomerular 88 >59 Filtration Rate (calc) mL/min/((173/100).m2 (test code = 66267-5) ) [facility] Springscreatinine, [id number] 10:28:00 Test Item Value Reference Range Interpretation Comments creatinine, serum (test code = 0.74 mg/dL 0.57-1.00 2160-0) [facility] Springsurea nitrogen, [id number] 10:28:00 Test Item Value Reference Range Interpretation Comments urea nitrogen, blood (test code = 11 mg/dL 07-24 3094-0) [facility] Springsblood glucose, [id number] 10:28:00 Test Item Value Reference Range Interpretation Comments blood glucose, random (test code = 178 mg/dL 65-99 H 2339-0) [facility] Springsimmature granulocytes, percentage of total cells, blood 2020-11-18 10:28:00 Test Item Value Reference Range Interpretation Comments immature granulocytes, percentage of 1 % total cells, blood (test code = 64396-7) [facility] Springsbasophil count, [id number] 10:28:00 Test Item Value Reference Range Interpretation Comments basophil count, absolute (test 0.0 x10E3/uL 0.0-0.2 code = 48659-3) [facility] SpringsEosinophil Absolute [id number] 10:28:00 Test Item Value Reference Range Interpretation Comments Eosinophil Absolute Count (test 0.1 X10E3/UL 0.0-0.4 code = 41615-8) [facility] Healthmonocyte count, blood, [id number] 10:28:00 Test Item Value Reference Range Interpretation Comments monocyte count, blood, automated 0.5 X10E3/UL 0.1-0.9 (test code = 742-7) [facility] Springslymphocyte count, blood, [id number] 10:28:00 Test Item Value Reference Range Interpretation Comments lymphocyte count, blood, 1.3 X10E3/UL 0.7-3.1 automated (test code = 731-0) [facility] SpringsAbsolute [id number] 10:28:00 Test Item Value Reference Range Interpretation Comments Absolute Neutrophils (test code 5.6 X10E3/UL 1.4-7.0 = 04975-0) [facility] Springsbasophils as percent of blood [id number] 10:28:00 Test Item Value Reference Range Interpretation Comments basophils as percent of blood 0 % leukocytes (test code = 707-0) [facility] Springseosinophils as percent of blood iurwbcokuu3306-85-27 10:28:00 Test Item Value Reference Range Interpretation Comments eosinophils as percent of blood 1 % leukocytes (test code = 713-8) [facility] Healthmonocytes as percent of blood ihdivcfqnn1143-56-68 10:28:00 Test Item Value Reference Range Interpretation Comments monocytes as percent of blood 6 % leukocytes (test code = 5905-5) [facility] Springslymphocytes as percent of blood [id number] 10:28:00 Test Item Value Reference Range Interpretation Comments lymphocytes as percent of blood 17 % leukocytes (test code = 736-9) [facility] Springsneutrophils as percent of blood [id number] 10:28:00 Test Item Value Reference Range Interpretation Comments neutrophils as percent of blood 75 % leukocytes (test code = 770-8) [facility] Springsplatelet [id number] 10:28:00 Test Item Value Reference Range Interpretation Comments platelet count (test code = 194 X10E3/UL 150-450 777-3) [facility] Springsred blood cell distribution [id number] 10:28:00 Test Item Value Reference Range Interpretation Comments red blood cell distribution width 11.9 % 11.7-15.4 (test code = 788-0) [facility] corpuscular hemoglobin concentration, [id number] 10:28:00 Test Item Value Reference Range Interpretation Comments mean corpuscular hemoglobin 35.3 G/DL 31.5-35.7 concentration, RBC (test code = 786-4) [facility] Springsmean corpuscular hemoglobin, [id number] 10:28:00 Test Item Value Reference Range Interpretation Comments mean corpuscular hemoglobin, RBC 34.8 pg 26.6-33.0 H (test code = 785-6) [facility], [id number] 10:28:00 Test Item Value Reference Range Interpretation Comments mean corpuscular volume, RBC (test code 99 fL 79-97 H = 787-2) [facility] Springshematocrit, [id number] 10:28:00 Test Item Value Reference Range Interpretation Comments hematocrit, blood (test code = 4544-3) 40.5 % 34.0-46.6 [facility] Springshemoglobin, [id number] 10:28:00 Test Item Value Reference Range Interpretation Comments hemoglobin, blood (test code = 14.3 g/dL 11.1-15.9 718-7) [facility] Springserythrocyte (RBC) [id number] 10:28:00 Test Item Value Reference Range Interpretation Comments erythrocyte (RBC) count (test 4.11 X10E6/UL 3.77-5.28 code = 789-8) [facility] Springsleukocyte count, [id number] 10:28:00 Test Item Value Reference Range Interpretation Comments leukocyte count, blood (test 7.5 X10E3/UL 3.4-10.8 code = 6690-2) [facility] SpringsCD4/CD8 chiac9428-13-18 10:28:00 Test Item Value Reference Range Interpretation Comments CD4/CD8 ratio (test code = 45733) 1.14 0.92-3.72 [facility] SpringsT-suppressor cells (CD8) as percent of blood lymphocytes 2020-11-18 10:28:00 Test Item Value Reference Range Interpretation Comments T-suppressor cells (CD8) as percent of 23.7 % .0-35.5 blood lymphocytes (test code = 3517) [facility] Springsabsolute [id number] 10:28:00 Test Item Value Reference Range Interpretation Comments absolute CD8 (test code = 25789) 308 109-897 [facility] SpringsT-helper cells (CD4) as percent of blood lymphocytes 2020-11-18 10:28:00 Test Item Value Reference Range Interpretation Comments T-helper cells (CD4) as percent of 26.9 % 30.8-58.5 L blood lymphocytes (test code = 8123-2) [facility] SpringsT-helper cells (CD4) [id number] 10:28:00 Test Item Value Reference Range Interpretation Comments T-helper cells (CD4) count (test code 350 /UL 359-1519 L = 09333-2) [facility] Springsrapid plasma reagin antibody, [id number] 10:39:00 Test Item Value Reference Range Interpretation Comments rapid plasma reagin antibody, Non Reactive Non Reactive serum (test code = 5291-0) [facility] Springshemoglobin A1C, blood, as % of total [id number] 10:39:00 Test Item Value Reference Range Interpretation Comments hemoglobin A1C, blood, as % of total 6.3 % 4.8-5.6 H hemoglobin (test code = 4548-4) [facility] SpringsHIV-1RNA, serum, by PCR, qggnjqudlwjk1110-12-26 10:39:00 Test Item Value Reference Range Interpretation Comments HIV-1RNA, serum, by PCR, quantitative 30 /mL (test code = 80309) [facility] SpringsLDL cholesterol, [id number] 10:39:00 Test Item Value Reference Range Interpretation Comments LDL cholesterol, serum (test code = 87 mg/dL 0-99 2088-) [facility] Springsvery low density uhzzuneerwrk6402-28-34 10:39:00 Test Item Value Reference Range Interpretation Comments very low density lipoproteins (test 44 mg/dL 5-40 H code = 2090-7) [facility] SpringsHDL cholesterol, [id number] 10:39:00 Test Item Value Reference Range Interpretation Comments HDL cholesterol, serum (test code = 32 mg/dL >39 L 2084-) [facility] Springstriglyceride, serum, [id number] 10:39:00 Test Item Value Reference Range Interpretation Comments triglyceride, serum, fasting (test 220 mg/dL 0-149 H code = 2571-8) [facility] Springscholesterol, [id number] 10:39:00 Test Item Value Reference Range Interpretation Comments cholesterol, serum (test code = 163 mg/dL 457-389 5936-3) [facility] Springsalanine aminotransferase (SGPT), [id number] 10:39:00 Test Item Value Reference Range Interpretation Comments alanine aminotransferase (SGPT), serum 15 1/L 0-32 (test code = 1742-6) [facility] Springsaspartate aminotransferase (SGOT), [id number] 10:39:00 Test Item Value Reference Range Interpretation Comments aspartate aminotransferase (SGOT), 17 1/L 0-40 serum (test code = 1920-8) [facility] Springsalkaline phosphatase, [id number] 10:39:00 Test Item Value Reference Range Interpretation Comments alkaline phosphatase, serum (test code 93 1/L 39-117 = 1783-0) [facility] Springsbilirubin, serum, [id number] 10:39:00 Test Item Value Reference Range Interpretation Comments bilirubin, serum, total (test code <0.2 mg/dL 0.0-1.2 = 1975-2) [facility] Springsalbumin/globulin ratio, [id number] 10:39:00 Test Item Value Reference Range Interpretation Comments albumin/globulin ratio, serum (test 1.7 1.2-2.2 code = 1759-0) [facility] Healthglobulin, [id number] 10:39:00 Test Item Value Reference Range Interpretation Comments globulin, serum (test code = 2336-6) 2.4 1.5-4.5 [facility] Healthalbumin, [id number] 10:39:00 Test Item Value Reference Range Interpretation Comments albumin, serum (test code = 1751-7) 4.0 g/dL 3.8-4.9 [facility] Springsprotein, total, [id number] 10:39:00 Test Item Value Reference Range Interpretation Comments protein, total, serum (test code = 6.4 g/dL 6.0-8.5 2885-2) [facility] Healthcalcium, [id number] 10:39:00 Test Item Value Reference Range Interpretation Comments calcium, serum (test code = 1999-8) 9.1 mg/dL 8.7-10.3 [facility] Springscarbon dioxide, venous [id number] 10:39:00 Test Item Value Reference Range Interpretation Comments carbon dioxide, venous blood (test 27 mmol/L 20-29 code = 2027-1) [facility] Healthchloride, [id number] 10:39:00 Test Item Value Reference Range Interpretation Comments chloride, serum (test code = 100 mmol/L 96-106 2075-0) [facility] Springspotassium, [id number] 10:39:00 Test Item Value Reference Range Interpretation Comments potassium, serum (test code = 4.6 mmol/L 3.5-5.2 2823-3) [facility] Springssodium, [id number] 10:39:00 Test Item Value Reference Range Interpretation Comments sodium, serum (test code = 2951-2) 139 mmol/L 134-144 [facility] Springsurea nitrogen/creatinine ratio, [id number] 10:39:00 Test Item Value Reference Range Interpretation Comments urea nitrogen/creatinine ratio, serum 13 12-28 (test code = 3097-3) [facility] HealtheGFR if Smksntda2137-73-11 10:39:00 Test Item Value Reference Range Interpretation Comments eGFR if 110 >59 (test code = 16625-7) mL/min/((173/100).m2) [facility] SpringsEstimated Glomerular Filtration Rate (calc)2020-05-28 10:39:00 Test Item Value Reference Range Interpretation Comments Estimated Glomerular 96 >59 Filtration Rate (calc) mL/min/((173/100).m2 (test code = 59608-5) ) [facility] Springscreatinine, [id number] 10:39:00 Test Item Value Reference Range Interpretation Comments creatinine, serum (test code = 0.67 mg/dL 0.57-1.00 2160-0) [facility] Springsurea nitrogen, [id number] 10:39:00 Test Item Value Reference Range Interpretation Comments urea nitrogen, blood (test code = 9 mg/dL 8-27 3094-0) [facility] Springsblood glucose, [id number] 10:39:00 Test Item Value Reference Range Interpretation Comments blood glucose, random (test code = 106 mg/dL 65-99 H 2339-0) [facility] Springsimmature granulocytes, percentage of total cells, blood 2020-05-28 10:39:00 Test Item Value Reference Range Interpretation Comments immature granulocytes, percentage of 0 % total cells, blood (test code = 68859-5) [facility] Healthbasophil count, irwgblpo4765-47-05 10:39:00 Test Item Value Reference Range Interpretation Comments basophil count, absolute (test 0.0 x10E3/uL 0.0-0.2 code = 42392-8) [facility] HealthEosinophil Absolute [id number] 10:39:00 Test Item Value Reference Range Interpretation Comments Eosinophil Absolute Count (test 0.1 X10E3/UL 0.0-0.4 code = 61803-8) [facility] Springsmonocyte count, blood, [id number] 10:39:00 Test Item Value Reference Range Interpretation Comments monocyte count, blood, automated 0.4 X10E3/UL 0.1-0.9 (test code = 742-7) [facility] Springslymphocyte count, blood, [id number] 10:39:00 Test Item Value Reference Range Interpretation Comments lymphocyte count, blood, 1.5 X10E3/UL 0.7-3.1 automated (test code = 731-0) [facility] SpringsAbsolute Lwmfqjiudsh4033-59-92 10:39:00 Test Item Value Reference Range Interpretation Comments Absolute Neutrophils (test code 4.8 X10E3/UL 1.4-7.0 = 97876-6) [facility] Springsbasophils as percent of blood tngwkkfzge7641-79-13 10:39:00 Test Item Value Reference Range Interpretation Comments basophils as percent of blood 0 % leukocytes (test code = 707-0) [facility] Healtheosinophils as percent of blood qdybsuevud1584-29-68 10:39:00 Test Item Value Reference Range Interpretation Comments eosinophils as percent of blood 1 % leukocytes (test code = 713-8) [facility] Healthmonocytes as percent of blood pejxfqkmtp4078-13-71 10:39:00 Test Item Value Reference Range Interpretation Comments monocytes as percent of blood 6 % leukocytes (test code = 5905-5) [facility] Springslymphocytes as percent of blood ttzcagmclk8388-49-13 10:39:00 Test Item Value Reference Range Interpretation Comments lymphocytes as percent of blood 23 % leukocytes (test code = 736-9) [facility] Springsneutrophils as percent of blood owyzlezstz5390-34-12 10:39:00 Test Item Value Reference Range Interpretation Comments neutrophils as percent of blood 70 % leukocytes (test code = 770-8) [facility] Springsplatelet [id number] 10:39:00 Test Item Value Reference Range Interpretation Comments platelet count (test code = 203 X10E3/UL 150-450 777-3) [facility] Springsred blood cell distribution [id number] 10:39:00 Test Item Value Reference Range Interpretation Comments red blood cell distribution width 12.4 % 11.7-15.4 (test code = 788-0) [facility] corpuscular hemoglobin concentration, [id number] 10:39:00 Test Item Value Reference Range Interpretation Comments mean corpuscular hemoglobin 36.0 G/DL 31.5-35.7 H concentration, RBC (test code = 786-4) [facility] corpuscular hemoglobin, [id number] 10:39:00 Test Item Value Reference Range Interpretation Comments mean corpuscular hemoglobin, RBC 34.9 pg 26.6-33.0 H (test code = 785-6) [facility] corpuscular volume, [id number] 10:39:00 Test Item Value Reference Range Interpretation Comments mean corpuscular volume, RBC (test code 97 fL 79-97 = 787-2) [facility]ocrit, [id number] 10:39:00 Test Item Value Reference Range Interpretation Comments hematocrit, blood (test code = 4544-3) 38.1 % 34.0-46.6 [facility] Springshemoglobin, [id number] 10:39:00 Test Item Value Reference Range Interpretation Comments hemoglobin, blood (test code = 13.7 g/dL 11.1-15.9 718-7) [facility] Springserythrocyte (RBC) [id number] 10:39:00 Test Item Value Reference Range Interpretation Comments erythrocyte (RBC) count (test 3.93 X10E6/UL 3.77-5.28 code = 789-8) [facility] Springsleukocyte count, [id number] 10:39:00 Test Item Value Reference Range Interpretation Comments leukocyte count, blood (test 6.8 X10E3/UL 3.4-10.8 code = 6690-2) [facility] SpringsCD4/CD8 [id number] 10:39:00 Test Item Value Reference Range Interpretation Comments CD4/CD8 ratio (test code = 87774) 1.20 0.92-3.72 [facility] SpringsT-suppressor cells (CD8) as percent of blood lymphocytes 2020-05-28 10:39:00 Test Item Value Reference Range Interpretation Comments T-suppressor cells (CD8) as percent of 27.1 % 12.0-35.5 blood lymphocytes (test code = 3517) [facility] Springsabsolute [id number] 10:39:00 Test Item Value Reference Range Interpretation Comments absolute CD8 (test code = 98820) 407 109-897 [facility] SpringsT-helper cells (CD4) as percent of blood lymphocytes 2020-05-28 10:39:00 Test Item Value Reference Range Interpretation Comments T-helper cells (CD4) as percent of 32.4 % 30.8-58.5 blood lymphocytes (test code = 8123-2) [facility] SpringsT-helper cells (CD4) [id number] 10:39:00 Test Item Value Reference Range Interpretation Comments T-helper cells (CD4) count (test code 486 /UL 359-1519 = 89429-1) [facility] Springsrapid plasma reagin antibody, [id number] 11:23:00 Test Item Value Reference Range Interpretation Comments rapid plasma reagin antibody, Non Reactive Non Reactive serum (test code = 5291-0) [facility] Springshemoglobin A1C, blood, as % of total [id number] 11:23:00 Test Item Value Reference Range Interpretation Comments hemoglobin A1C, blood, as % of total 5.6 % 4.8-5.6 hemoglobin (test code = 4548-4) [facility] SpringsHIV-1RNA, serum, by PCR, [id number] 11:23:00 Test Item Value Reference Range Interpretation Comments HIV-1RNA, serum, by PCR, <20 copies/mL quantitative (test code = 39760) [facility] SpringsLDL cholesterol, [id number] 11:23:00 Test Item Value Reference Range Interpretation Comments LDL cholesterol, serum (test code = 94 mg/dL 0-99 2088-1) [facility] Springsvery low density [id number] 11:23:00 Test Item Value Reference Range Interpretation Comments very low density lipoproteins (test 57 mg/dL 5-40 H code = 2091-7) [facility] SpringsHDL cholesterol, [id number] 11:23:00 Test Item Value Reference Range Interpretation Comments HDL cholesterol, serum (test code = 36 mg/dL >39 L 2084-9) [facility] Springstriglyceride, serum, [id number] 11:23:00 Test Item Value Reference Range Interpretation Comments triglyceride, serum, fasting (test 284 mg/dL 0-149 H code = 2571-8) [facility] Springscholesterol, [id number] 11:23:00 Test Item Value Reference Range Interpretation Comments cholesterol, serum (test code = 187 mg/dL 704-860 2692-3) [facility] Springsalanine aminotransferase (SGPT), [id number] 11:23:00 Test Item Value Reference Range Interpretation Comments alanine aminotransferase (SGPT), serum 7 1/L 0-32 (test code = 1742-6) [facility] Springsaspartate aminotransferase (SGOT), [id number] 11:23:00 Test Item Value Reference Range Interpretation Comments aspartate aminotransferase (SGOT), 9 1/L 0-40 serum (test code = 1920-8) [facility] Springsalkaline phosphatase, [id number] 11:23:00 Test Item Value Reference Range Interpretation Comments alkaline phosphatase, serum (test code 93 1/L 39-117 = 1783-0) [facility]bilirubin, serum, [id number] 11:23:00 Test Item Value Reference Range Interpretation Comments bilirubin, serum, total (test code <0.2 mg/dL 0.0-1.2 = 1975-2) [facility] Healthalbumin/globulin ratio, [id number] 11:23:00 Test Item Value Reference Range Interpretation Comments albumin/globulin ratio, serum (test 1.4 1.2-2.2 code = 1759-0) [facility] Healthglobulin, [id number] 11:23:00 Test Item Value Reference Range Interpretation Comments globulin, serum (test code = 2336-6) 2.8 1.5-4.5 [facility] Healthalbumin, [id number] 11:23:00 Test Item Value Reference Range Interpretation Comments albumin, serum (test code = 1751-7) 3.9 g/dL 3.8-4.9 [facility] Springsprotein, total, [id number] 11:23:00 Test Item Value Reference Range Interpretation Comments protein, total, serum (test code = 6.7 g/dL 6.0-8.5 2885-2) [facility] Springscalcium, [id number] 11:23:00 Test Item Value Reference Range Interpretation Comments calcium, serum (test code = 1999-8) 9.1 mg/dL 8.7-10.3 [facility] Springscarbon dioxide, venous [id number] 11:23:00 Test Item Value Reference Range Interpretation Comments carbon dioxide, venous blood (test 27 mmol/L code = 7-1) [facility] Springschloride, [id number] 11:23:00 Test Item Value Reference Range Interpretation Comments chloride, serum (test code = 99 mmol/L 96-106 5-0) [facility] Healthpotassium, [id number] 11:23:00 Test Item Value Reference Range Interpretation Comments potassium, serum (test code = 4.7 mmol/L 3.5-5.2 2823-3) [facility] Springssodium, [id number] 11:23:00 Test Item Value Reference Range Interpretation Comments sodium, serum (test code = 2951-2) 140 mmol/L 134-144 [facility] Springsurea nitrogen/creatinine ratio, [id number] 11:23:00 Test Item Value Reference Range Interpretation Comments urea nitrogen/creatinine ratio, serum 17 11-24 (test code = 3097-3) [facility] HealtheGFR if [id number] 11:23:00 Test Item Value Reference Range Interpretation Comments eGFR if 100 >59 (test code = 60322-9) mL/min/((173/100).m2) [facility] SpringsEstimated Glomerular Filtration Rate (calc)2020-02-07 11:23:00 Test Item Value Reference Range Interpretation Comments Estimated Glomerular 87 >59 Filtration Rate (calc) mL/min/((173/100).m2 (test code = 07042-1) ) [facility] Springscreatinine, [id number] 11:23:00 Test Item Value Reference Range Interpretation Comments creatinine, serum (test code = 0.75 mg/dL 0.57-1.00 2160-0) [facility] Springsurea nitrogen, [id number] 11:23:00 Test Item Value Reference Range Interpretation Comments urea nitrogen, blood (test code = 13 mg/dL 827 3094-0) [facility] Springsblood glucose, [id number] 11:23:00 Test Item Value Reference Range Interpretation Comments blood glucose, random (test code = 74 mg/dL 65-99 2339-0) [facility] Springsimmature granulocytes, percentage of total cells, blood 2020-02-07 11:23:00 Test Item Value Reference Range Interpretation Comments immature granulocytes, percentage of 0 % total cells, blood (test code = 13775-8) [facility] Springsbasophil count, [id number] 11:23:00 Test Item Value Reference Range Interpretation Comments basophil count, absolute (test 0.0 x10E3/uL 0.0-0.2 code = 36969-1) [facility] SpringsEosinophil Absolute [id number] 11:23:00 Test Item Value Reference Range Interpretation Comments Eosinophil Absolute Count (test 0.1 X10E3/UL 0.0-0.4 code = 02182-0) [facility] Springsmonocyte count, blood, [id number] 11:23:00 Test Item Value Reference Range Interpretation Comments monocyte count, blood, automated 0.4 X10E3/UL 0.1-0.9 (test code = 742-7) [facility]lymph[facility], blood, [id number] 11:23:00 Test Item Value Reference Range Interpretation Comments lymphocyte count, blood, 1.6 X10E3/UL 0.7-3.1 automated (test code = 731-0) [facility] SpringsAbsolute Quhdtrgyeaw3162-96-89 11:23:00 Test Item Value Reference Range Interpretation Comments Absolute Neutrophils (test code 5.0 X10E3/UL 1.4-7.0 = 78132-3) [facility] Springsbasophils as percent of blood wbhozvrgei5965-70-52 11:23:00 Test Item Value Reference Range Interpretation Comments basophils as percent of blood 0 % leukocytes (test code = 707-0) [facility] Springseosinophils as percent of blood coyrxlsqjh9162-86-29 11:23:00 Test Item Value Reference Range Interpretation Comments eosinophils as percent of blood 1 % leukocytes (test code = 713-8) [facility] Springsmonocytes as percent of blood rnfyzyfqjj8215-29-58 11:23:00 Test Item Value Reference Range Interpretation Comments monocytes as percent of blood 6 % leukocytes (test code = 5905-5) [facility] Springslymphocytes as percent of blood [id number] 11:23:00 Test Item Value Reference Range Interpretation Comments lymphocytes as percent of blood 22 % leukocytes (test code = 736-9) [facility] Springsneutrophils as percent of blood dgahhrppqc2585-57-60 11:23:00 Test Item Value Reference Range Interpretation Comments neutrophils as percent of blood 71 % leukocytes (test code = 770-8) [facility] Springsplatelet [id number] 11:23:00 Test Item Value Reference Range Interpretation Comments platelet count (test code = 214 X10E3/UL 150-450 777-3) [facility] Springsred blood cell distribution [id number] 11:23:00 Test Item Value Reference Range Interpretation Comments red blood cell distribution width 12.8 % 11.7-15.4 (test code = 788-0) [facility] Springsmean corpuscular hemoglobin concentration, [id number] 11:23:00 Test Item Value Reference Range Interpretation Comments mean corpuscular hemoglobin 33.4 G/DL 31.5-35.7 concentration, RBC (test code = 786-4) [facility] Springsmean corpuscular hemoglobin, [id number] 11:23:00 Test Item Value Reference Range Interpretation Comments mean corpuscular hemoglobin, RBC 33.8 pg 26.6-33.0 H (test code = 785-6) [facility] Springsmean corpuscular volume, [id number] 11:23:00 Test Item Value Reference Range Interpretation Comments mean corpuscular volume, RBC (test 101 fL 79-97 H code = 787-2) [facility] Springshematocrit, [id number] 11:23:00 Test Item Value Reference Range Interpretation Comments hematocrit, blood (test code = 4544-3) 40.1 % 34.0-46.6 [facility] Springshemoglobin, [id number] 11:23:00 Test Item Value Reference Range Interpretation Comments hemoglobin, blood (test code = 13.4 g/dL 11.1-15.9 718-7) [facility] Springserythrocyte (RBC) [id number] 11:23:00 Test Item Value Reference Range Interpretation Comments erythrocyte (RBC) count (test 3.97 X10E6/UL 3.77-5.28 code = 789-8) [facility] Springsleukocyte count, [id number] 11:23:00 Test Item Value Reference Range Interpretation Comments leukocyte count, blood (test 7.1 X10E3/UL 3.4-10.8 code = 6690-2) [facility] SpringsCD4/CD8 [id number] 11:23:00 Test Item Value Reference Range Interpretation Comments CD4/CD8 ratio (test code = 29087) 1.01 0.92-3.72 [facility] SpringsT-suppressor cells (CD8) as percent of blood lymphocytes 2020-02-07 11:23:00 Test Item Value Reference Range Interpretation Comments T-suppressor cells (CD8) as percent of 28.0 % 12.0-35.5 blood lymphocytes (test code = 3517) [facility] Springsabsolute [id number] 11:23:00 Test Item Value Reference Range Interpretation Comments absolute CD8 (test code = 47644) 448 109-897 [facility] SpringsT-helper cells (CD4) as percent of blood lymphocytes 2020-02-07 11:23:00 Test Item Value Reference Range Interpretation Comments T-helper cells (CD4) as percent of 28.4 % 30.8-58.5 L blood lymphocytes (test code = 8123-2) [facility] SpringsT-helper cells (CD4) [id number] 11:23:00 Test Item Value Reference Range Interpretation Comments T-helper cells (CD4) count (test code 454 /UL 359-1519 = 19656-7) [facility] SpringsQuantiferon Gold TB blood test for tuberculosis screening 2019-10-04 09:29:00 Test Item Value Reference Range Interpretation Comments Quantiferon Gold TB blood test for Positive Negative A tuberculosis screening (test code = 64221-5) [facility] Springshepatitis C antibody, [id number] 09:19:00 Test Item Value Reference Range Interpretation Comments hepatitis C antibody, serum (test code <0.1 0.0-0.9 = 5199-5) [facility] Springsrapid plasma reagin antibody, [id number] 09:19:00 Test Item Value Reference Range Interpretation Comments rapid plasma reagin antibody, Non Reactive Non Reactive serum (test code = 5291-0) [facility] SpringsHIV-1RNA, serum, by PCR, dwvwezbcydgz0207-11-13 09:19:00 Test Item Value Reference Range Interpretation Comments HIV-1RNA, serum, by PCR, quantitative 380 /mL (test code = 93810) [facility] SpringsLDL cholesterol, [id number] 09:19:00 Test Item Value Reference Range Interpretation Comments LDL cholesterol, serum (test code = 82 mg/dL 0-99 2088-1) [facility] Springsvery low density bxvswyttliwm4060-85-54 09:19:00 Test Item Value Reference Range Interpretation Comments very low density lipoproteins (test 32 mg/dL 5-40 code = 1-7) [facility] SpringsHDL cholesterol, [id number] 09:19:00 Test Item Value Reference Range Interpretation Comments HDL cholesterol, serum (test code = 42 mg/dL >39 5-9) [facility] Springstriglyceride, serum, [id number] 09:19:00 Test Item Value Reference Range Interpretation Comments triglyceride, serum, fasting (test 161 mg/dL 0-149 H code = 2571-8) [facility] Springscholesterol, [id number] 09:19:00 Test Item Value Reference Range Interpretation Comments cholesterol, serum (test code = 156 mg/dL 008-652 0434-3) [facility] Springsalanine aminotransferase (SGPT), [id number] 09:19:00 Test Item Value Reference Range Interpretation Comments alanine aminotransferase (SGPT), serum 10 1/L 0-32 (test code = 1742-6) [facility] Springsaspartate aminotransferase (SGOT), [id number] 09:19:00 Test Item Value Reference Range Interpretation Comments aspartate aminotransferase (SGOT), 9 1/L 0-40 serum (test code = 1920-8) [facility] Springsalkaline phosphatase, [id number] 09:19:00 Test Item Value Reference Range Interpretation Comments alkaline phosphatase, serum (test code 99 1/L 39-117 = 1783-0) [facility] Springsbilirubin, serum, [id number] 09:19:00 Test Item Value Reference Range Interpretation Comments bilirubin, serum, total (test code 0.3 mg/dL 0.0-1.2 = 1975-2) [facility] Springsalbumin/globulin ratio, [id number] 09:19:00 Test Item Value Reference Range Interpretation Comments albumin/globulin ratio, serum (test 1.6 1.2-2.2 code = 1759-0) [facility] Healthglobulin, [id number] 09:19:00 Test Item Value Reference Range Interpretation Comments globulin, serum (test code = 2336-6) 2.4 1.5-4.5 [facility] Healthalbumin, [id number] 09:19:00 Test Item Value Reference Range Interpretation Comments albumin, serum (test code = 1751-7) 3.9 g/dL 3.5-5.5 [facility] Springsprotein, total, [id number] 09:19:00 Test Item Value Reference Range Interpretation Comments protein, total, serum (test code = 6.3 g/dL 6.0-8.5 2885-2) [facility] Springscalcium, [id number] 09:19:00 Test Item Value Reference Range Interpretation Comments calcium, serum (test code = 2000-8) 9.2 mg/dL 8.7-10.2 [facility] Springscarbon dioxide, venous [id number] 09:19:00 Test Item Value Reference Range Interpretation Comments carbon dioxide, venous blood (test 27 mmol/L code = 7-1) [facility] Springschloride, [id number] 09:19:00 Test Item Value Reference Range Interpretation Comments chloride, serum (test code = 102 mmol/L 96-106 2075-0) [facility] Healthpotassium, [id number] 09:19:00 Test Item Value Reference Range Interpretation Comments potassium, serum (test code = 4.5 mmol/L 3.5-5.2 2823-3) [facility] Springssodium, [id number] 09:19:00 Test Item Value Reference Range Interpretation Comments sodium, serum (test code = 2951-2) 140 mmol/L 134-144 [facility] Springsurea nitrogen/creatinine ratio, [id number] 09:19:00 Test Item Value Reference Range Interpretation Comments urea nitrogen/creatinine ratio, serum 25 9-23 H (test code = 3097-3) [facility] HealtheGFR if Uqebuzrp2680-19-47 09:19:00 Test Item Value Reference Range Interpretation Comments eGFR if 118 >59 (test code = 30962-1) mL/min/((173/100).m2) [facility] SpringsEstimated Glomerular Filtration Rate (calc)2019-10-04 09:19:00 Test Item Value Reference Range Interpretation Comments Estimated Glomerular 102 >59 Filtration Rate (calc) mL/min/((173/100).m2 (test code = 00990-7) ) [facility] Springscreatinine, [id number] 09:19:00 Test Item Value Reference Range Interpretation Comments creatinine, serum (test code = 0.56 mg/dL 0.57-1.00 L 2160-0) [facility] Springsurea nitrogen, [id number] 09:19:00 Test Item Value Reference Range Interpretation Comments urea nitrogen, blood (test code = 14 mg/dL 6-24 3094-0) [facility] Springsblood glucose, [id number] 09:19:00 Test Item Value Reference Range Interpretation Comments blood glucose, random (test code = 121 mg/dL 65-99 H 2339-0) [facility] Springsimmature granulocytes, percentage of total cells, blood 2019-10-04 09:19:00 Test Item Value Reference Range Interpretation Comments immature granulocytes, percentage of 0 % total cells, blood (test code = 60389-1) [facility] Springsbasophil count, [id number] 09:19:00 Test Item Value Reference Range Interpretation Comments basophil count, absolute (test 0.0 x10E3/uL 0.0-0.2 code = 42658-3) [facility] HealthEosinophil Absolute [id number] 09:19:00 Test Item Value Reference Range Interpretation Comments Eosinophil Absolute Count (test 0.2 X10E3/UL 0.0-0.4 code = 10567-7) [facility] Springsmonocyte count, blood, cqssvspho4390-67-06 09:19:00 Test Item Value Reference Range Interpretation Comments monocyte count, blood, automated 0.4 X10E3/UL 0.1-0.9 (test code = 742-7) [facility] Springslymphocyte count, blood, oluvuwwio5230-33-29 09:19:00 Test Item Value Reference Range Interpretation Comments lymphocyte count, blood, 1.7 X10E3/UL 0.7-3.1 automated (test code = 731-0) [facility] SpringsAbsolute Jgghselrzpt7915-70-02 09:19:00 Test Item Value Reference Range Interpretation Comments Absolute Neutrophils (test code 3.5 X10E3/UL 1.4-7.0 = 87330-3) [facility] Springsbasophils as percent of blood pbkpneshol1731-37-16 09:19:00 Test Item Value Reference Range Interpretation Comments basophils as percent of blood 1 % leukocytes (test code = 707-0) [facility] Healtheosinophils as percent of blood hcjphjotxh7511-51-72 09:19:00 Test Item Value Reference Range Interpretation Comments eosinophils as percent of blood 3 % leukocytes (test code = 713-8) [facility] Healthmonocytes as percent of blood hutgiqkzmp1251-95-40 09:19:00 Test Item Value Reference Range Interpretation Comments monocytes as percent of blood 7 % leukocytes (test code = 5905-5) [facility] Springslymphocytes as percent of blood nnveoqcnrt7329-76-61 09:19:00 Test Item Value Reference Range Interpretation Comments lymphocytes as percent of blood 29 % leukocytes (test code = 736-9) [facility] Springsneutrophils as percent of blood yvegjvlgxp6017-59-57 09:19:00 Test Item Value Reference Range Interpretation Comments neutrophils as percent of blood 60 % leukocytes (test code = 770-8) [facility] Springsplatelet [id number] 09:19:00 Test Item Value Reference Range Interpretation Comments platelet count (test code = 234 X10E3/UL 150-450 777-3) [facility] Springsred blood cell distribution [id number] 09:19:00 Test Item Value Reference Range Interpretation Comments red blood cell distribution width 13.0 % 12.3-15.4 (test code = 788-0) [facility] corpuscular hemoglobin concentration, [id number] 09:19:00 Test Item Value Reference Range Interpretation Comments mean corpuscular hemoglobin 33.8 G/DL 31.5-35.7 concentration, RBC (test code = 786-4) [facility] corpuscular hemoglobin, [id number] 09:19:00 Test Item Value Reference Range Interpretation Comments mean corpuscular hemoglobin, RBC 34.9 pg 26.6-33.0 H (test code = 785-6) [facility] corpuscular volume, [id number] 09:19:00 Test Item Value Reference Range Interpretation Comments mean corpuscular volume, RBC (test 103 fL 79-97 H code = 787-2) [facility]hematocrit, [id number] 09:19:00 Test Item Value Reference Range Interpretation Comments hematocrit, blood (test code = 4544-3) 41.4 % 34.0-46.6 [facility] Springshemoglobin, [id number] 09:19:00 Test Item Value Reference Range Interpretation Comments hemoglobin, blood (test code = 14.0 g/dL 11.1-15.9 718-7) [facility] Springserythrocyte (RBC) [id number] 09:19:00 Test Item Value Reference Range Interpretation Comments erythrocyte (RBC) count (test 4.01 X10E6/UL 3.77-5.28 code = 789-8) [facility] Springsleukocyte count, [id number] 09:19:00 Test Item Value Reference Range Interpretation Comments leukocyte count, blood (test 5.8 X10E3/UL 3.4-10.8 code = 6690-2) [facility] SpringsCD4/CD8 [id number] 09:19:00 Test Item Value Reference Range Interpretation Comments CD4/CD8 ratio (test code = 50314) 0.91 0.92-3.72 L [facility] SpringsT-suppressor cells (CD8) as percent of blood lymphocytes 2019-10-04 09:19:00 Test Item Value Reference Range Interpretation Comments T-suppressor cells (CD8) as percent of 26.7 % 12.0-35.5 blood lymphocytes (test code = 3517) [facility] Springsabsolute [id number] 09:19:00 Test Item Value Reference Range Interpretation Comments absolute CD8 (test code = 34867) 454 109-897 [facility] SpringsT-helper cells (CD4) as percent of blood lymphocytes 2019-10-04 09:19:00 Test Item Value Reference Range Interpretation Comments T-helper cells (CD4) as percent of 24.4 % 30.8-58.5 L blood lymphocytes (test code = 8123-2) [facility] SpringsT-helper cells (CD4) [id number] 09:19:00 Test Item Value Reference Range Interpretation Comments T-helper cells (CD4) count (test code 415 /UL 359-1519 = 68230-3) [facility] SpringsLDL cholesterol, kfbzz2442-50-73 10:34:00 Test Item Value Reference Range Interpretation Comments LDL cholesterol, serum (test code = 58 mg/dL 0-99 2088-1) [facility] Springsvery low density rjfdsbvohfrx3411-07-30 10:34:00 Test Item Value Reference Range Interpretation Comments very low density lipoproteins (test 35 mg/dL 5-40 code = 1-7) [facility] SpringsHDL cholesterol, [id number] 10:34:00 Test Item Value Reference Range Interpretation Comments HDL cholesterol, serum (test code = 34 mg/dL >39 L 2084-9) [facility] Springstriglyceride, serum, [id number] 10:34:00 Test Item Value Reference Range Interpretation Comments triglyceride, serum, fasting (test 174 mg/dL 0-149 H code = 2571-8) [facility] [facility]cholesterol, [id number] 10:34:00 Test Item Value Reference Range Interpretation Comments cholesterol, serum (test code = 127 mg/dL 404-028 0614-3) [facility]rapid plasma reagin antibody, [id number] 10:25:00 Test Item Value Reference Range Interpretation Comments rapid plasma reagin antibody, Non Reactive Non Reactive serum (test code = 5291-0) [facility] SpringsHIV-1RNA, serum, by PCR, [id number] 10:25:00 Test Item Value Reference Range Interpretation Comments HIV-1RNA, serum, by PCR, <20 copies/mL quantitative (test code = 76824) [facility]alanine aminotransferase (SGPT), [id number] 10:25:00 Test Item Value Reference Range Interpretation Comments alanine aminotransferase (SGPT), serum 12 1/L 0-32 (test code = 1742-6) [facility] Springsaspartate aminotransferase (SGOT), [id number] 10:25:00 Test Item Value Reference Range Interpretation Comments aspartate aminotransferase (SGOT), 9 1/L 0-40 serum (test code = 1920-8) [facility] Springsalkaline phosphatase, [id number] 10:25:00 Test Item Value Reference Range Interpretation Comments alkaline phosphatase, serum (test 102 1/L 39-117 code = 1783-0) [facility]bilirubin, serum, [id number] 10:25:00 Test Item Value Reference Range Interpretation Comments bilirubin, serum, total (test code 0.4 mg/dL 0.0-1.2 = 1975-2) [facility]albumin/globulin ratio, [id number] 10:25:00 Test Item Value Reference Range Interpretation Comments albumin/globulin ratio, serum (test 1.4 1.2-2.2 code = 1759-0) [facility] Healthglobulin, [id number] 10:25:00 Test Item Value Reference Range Interpretation Comments globulin, serum (test code = 2336-6) 2.8 1.5-4.5 [facility] Healthalbumin, [id number] 10:25:00 Test Item Value Reference Range Interpretation Comments albumin, serum (test code = 1751-7) 4.0 g/dL 3.5-5.5 [facility]protein, total, [id number] 10:25:00 Test Item Value Reference Range Interpretation Comments protein, total, serum (test code = 6.8 g/dL 6.0-8.5 2885-2) [facility]calcium, [id number] 10:25:00 Test Item Value Reference Range Interpretation Comments calcium, serum (test code = 1999-8) 9.3 mg/dL 8.7-10.2 [facility]carbon dioxide, venous [id number] 10:25:00 Test Item Value Reference Range Interpretation Comments carbon dioxide, venous blood (test 29 mmol/L code = 2026-1) [facility] Healthchloride, [id number] 10:25:00 Test Item Value Reference Range Interpretation Comments chloride, serum (test code = 99 mmol/L 96-106 5-0) [facility] Springspotassium, [id number] 10:25:00 Test Item Value Reference Range Interpretation Comments potassium, serum (test code = 4.4 mmol/L 3.5-5.2 2823-3) [facility] Springssodium, [id number] 10:25:00 Test Item Value Reference Range Interpretation Comments sodium, serum (test code = 2951-2) 140 mmol/L 134-144 [facility] Springsurea nitrogen/creatinine ratio, [id number] 10:25:00 Test Item Value Reference Range Interpretation Comments urea nitrogen/creatinine ratio, serum 20 9-23 (test code = 3097-3) [facility] SpringseGFR if Pnovtmbj6942-57-79 10:25:00 Test Item Value Reference Range Interpretation Comments eGFR if 115 >59 (test code = 87986-0) mL/min/((173/100).m2) [facility] SpringsEstimated Glomerular Filtration Rate (calc)2019-06-07 10:25:00 Test Item Value Reference Range Interpretation Comments Estimated Glomerular 100 >59 Filtration Rate (calc) mL/min/((173/100).m2 (test code = 41771-8) ) [facility] Healthcreatinine, [id number] 10:25:00 Test Item Value Reference Range Interpretation Comments creatinine, serum (test code = 0.61 mg/dL 0.57-1.00 2160-0) [facility] Springsurea nitrogen, [id number] 10:25:00 Test Item Value Reference Range Interpretation Comments urea nitrogen, blood (test code = 12 mg/dL 6-24 3094-0) [facility]blood glucose, [id number] 10:25:00 Test Item Value Reference Range Interpretation Comments blood glucose, random (test code = 131 mg/dL 65-99 H 2339-0) [facility] Springsimmature granulocytes, percentage of total cells, blood 2019-06-07 10:25:00 Test Item Value Reference Range Interpretation Comments immature granulocytes, percentage of 0 % total cells, blood (test code = 20678-5) [facility] Springsbasophil count, [id number] 10:25:00 Test Item Value Reference Range Interpretation Comments basophil count, absolute (test 0.0 x10E3/uL 0.0-0.2 code = 81838-8) [facility] SpringsEosinophil Absolute [id number] 10:25:00 Test Item Value Reference Range Interpretation Comments Eosinophil Absolute Count (test 0.1 X10E3/UL 0.0-0.4 code = 17612-4) [facility] Springsmonocyte count, blood, wofmujytw7550-63-31 10:25:00 Test Item Value Reference Range Interpretation Comments monocyte count, blood, automated 0.3 X10E3/UL 0.1-0.9 (test code = 742-7) [facility] Springslymphocyte count, blood, [id number] 10:25:00 Test Item Value Reference Range Interpretation Comments lymphocyte count, blood, 1.4 X10E3/UL 0.7-3.1 automated (test code = 731-0) [facility] SpringsAbsolute Lrreeomwnyw4496-95-95 10:25:00 Test Item Value Reference Range Interpretation Comments Absolute Neutrophils (test code 5.3 X10E3/UL 1.4-7.0 = 94668-1) [facility] Springsbasophils as percent of blood oseiwlefvx7444-83-75 10:25:00 Test Item Value Reference Range Interpretation Comments basophils as percent of blood 0 % leukocytes (test code = 707-0) [facility] Healtheosinophils as percent of blood twsnlgnxxs8278-68-13 10:25:00 Test Item Value Reference Range Interpretation Comments eosinophils as percent of blood 1 % leukocytes (test code = 713-8) [facility] Healthmonocytes as percent of blood wvmakyuykg2640-46-51 10:25:00 Test Item Value Reference Range Interpretation Comments monocytes as percent of blood 5 % leukocytes (test code = 5905-5) [facility] Springslymphocytes as percent of blood ajvetbwfds4345-14-28 10:25:00 Test Item Value Reference Range Interpretation Comments lymphocytes as percent of blood 19 % leukocytes (test code = 736-9) [facility] Springsneutrophils as percent of blood btoqnfrkwc7322-78-72 10:25:00 Test Item Value Reference Range Interpretation Comments neutrophils as percent of blood 75 % leukocytes (test code = 770-8) [facility] Springsplatelet gitdo0226-35-98 10:25:00 Test Item Value Reference Range Interpretation Comments platelet count (test code = 227 X10E3/UL 150-450 777-3) [facility] Springsred blood cell distribution [id number] 10:25:00 Test Item Value Reference Range Interpretation Comments red blood cell distribution width 13.4 % 12.3-15.4 (test code = 788-0) [facility] corpuscular hemoglobin concentration, [id number] 10:25:00 Test Item Value Reference Range Interpretation Comments mean corpuscular hemoglobin 34.2 G/DL 31.5-35.7 concentration, RBC (test code = 786-4) [facility] corpuscular hemoglobin, [id number] 10:25:00 Test Item Value Reference Range Interpretation Comments mean corpuscular hemoglobin, RBC 34.8 pg 26.6-33.0 H (test code = 785-6) [facility] corpuscular volume, [id number] 10:25:00 Test Item Value Reference Range Interpretation Comments mean corpuscular volume, RBC (test 102 fL 79-97 H code = 787-2) [facility]hematocrit, [id number] 10:25:00 Test Item Value Reference Range Interpretation Comments hematocrit, blood (test code = 4544-3) 42.7 % 34.0-46.6 [facility] Springshemoglobin, [id number] 10:25:00 Test Item Value Reference Range Interpretation Comments hemoglobin, blood (test code = 14.6 g/dL 11.1-15.9 718-7) [facility] Springserythrocyte (RBC) [id number] 10:25:00 Test Item Value Reference Range Interpretation Comments erythrocyte (RBC) count (test 4.20 X10E6/UL 3.77-5.28 code = 789-8) [facility] Springsleukocyte count, [id number] 10:25:00 Test Item Value Reference Range Interpretation Comments leukocyte count, blood (test 7.1 X10E3/UL 3.4-10.8 code = 6690-2) [facility] SpringsCD4/CD8 [id number] 10:25:00 Test Item Value Reference Range Interpretation Comments CD4/CD8 ratio (test code = 88870) 1.00 0.92-3.72 [facility] SpringsT-suppressor cells (CD8) as percent of blood lymphocytes 2019-06-07 10:25:00 Test Item Value Reference Range Interpretation Comments T-suppressor cells (CD8) as percent of 27.5 % 12.0-35.5 blood lymphocytes (test code = 3517) [facility] Springsabsolute [id number] 10:25:00 Test Item Value Reference Range Interpretation Comments absolute CD8 (test code = 87560) 385 109-897 [facility] SpringsT-helper cells (CD4) as percent of blood lymphocytes 2019-06-07 10:25:00 Test Item Value Reference Range Interpretation Comments T-helper cells (CD4) as percent of 27.5 % 30.8-58.5 L blood lymphocytes (test code = 8123-2) [facility] SpringsT-helper cells (CD4) [id number] 10:25:00 Test Item Value Reference Range Interpretation Comments T-helper cells (CD4) count (test code 385 /UL 359-1519 = 01057-8) [facility] Springsrapid plasma reagin antibody, [id number] 08:54:00 Test Item Value Reference Range Interpretation Comments rapid plasma reagin antibody, Non Reactive Non Reactive serum (test code = 5291-0) [facility]HIV-1RNA, serum, by PCR, beyfdxkjfnky7520-04-82 08:54:00 Test Item Value Reference Range Interpretation Comments HIV-1RNA, serum, by PCR, <20 copies/mL quantitative (test code = 45577) [facility]alanine aminotransferase (SGPT), [id number] 08:54:00 Test Item Value Reference Range Interpretation Comments alanine aminotransferase (SGPT), serum 12 1/L 0-32 (test code = 1742-6) [facility] Springsaspartate aminotransferase (SGOT), iayzd5582-31-77 08:54:00 Test Item Value Reference Range Interpretation Comments aspartate aminotransferase (SGOT), 12 1/L 0-40 serum (test code = 1920-8) [facility] Springsalkaline phosphatase, [id number] 08:54:00 Test Item Value Reference Range Interpretation Comments alkaline phosphatase, serum (test 109 1/L 39-117 code = 1783-0) [facility]bilirubin, serum, [id number] 08:54:00 Test Item Value Reference Range Interpretation Comments bilirubin, serum, total (test code 0.2 mg/dL 0.0-1.2 = 1975-2) [facility] Springsalbumin/globulin ratio, [id number] 08:54:00 Test Item Value Reference Range Interpretation Comments albumin/globulin ratio, serum (test 1.5 1.2-2.2 code = 1759-0) [facility] Healthglobulin, [id number] 08:54:00 Test Item Value Reference Range Interpretation Comments globulin, serum (test code = 2336-6) 2.6 1.5-4.5 [facility] Healthalbumin, [id number] 08:54:00 Test Item Value Reference Range Interpretation Comments albumin, serum (test code = 1751-7) 4.0 g/dL 3.5-5.5 [facility]protein, total, [id number] 08:54:00 Test Item Value Reference Range Interpretation Comments protein, total, serum (test code = 6.6 g/dL 6.0-8.5 2885-2) [facility]calcium, [id number] 08:54:00 Test Item Value Reference Range Interpretation Comments calcium, serum (test code = 1999-8) 9.3 mg/dL 8.7-10.2 [facility] Springscarbon dioxide, venous [id number] 08:54:00 Test Item Value Reference Range Interpretation Comments carbon dioxide, venous blood (test 26 mmol/L - code = 2026-1) [facility] Healthchloride, [id number] 08:54:00 Test Item Value Reference Range Interpretation Comments chloride, serum (test code = 102 mmol/L 96-106 5-0) [facility] Healthpotassium, [id number] 08:54:00 Test Item Value Reference Range Interpretation Comments potassium, serum (test code = 4.8 mmol/L 3.5-5.2 2823-3) [facility]sodium, [id number] 08:54:00 Test Item Value Reference Range Interpretation Comments sodium, serum (test code = 2951-2) 143 mmol/L 134-144 [facility] Springsurea nitrogen/creatinine ratio, zfztp2621-51-00 08:54:00 Test Item Value Reference Range Interpretation Comments urea nitrogen/creatinine ratio, serum 11 9-23 (test code = 3097-3) [facility] HealtheGFR if Zggutjfc9194-92-62 08:54:00 Test Item Value Reference Range Interpretation Comments eGFR if 113 >59 (test code = 45276-4) mL/min/((173/100).m2) [facility] SpringsEstimated Glomerular Filtration Rate (calc)2019-02-08 08:54:00 Test Item Value Reference Range Interpretation Comments Estimated Glomerular 98 >59 Filtration Rate (calc) mL/min/((173/100).m2 (test code = 14053-9) ) [facility] Springscreatinine, [id number] 08:54:00 Test Item Value Reference Range Interpretation Comments creatinine, serum (test code = 0.64 mg/dL 0.57-1.00 0-0) [facility] Springsurea nitrogen, [id number] 08:54:00 Test Item Value Reference Range Interpretation Comments urea nitrogen, blood (test code = 7 mg/dL 6-24 3094-0) [facility] Springsblood glucose, [id number] 08:54:00 Test Item Value Reference Range Interpretation Comments blood glucose, random (test code = 157 mg/dL 65-99 H 2339-0) [facility] Springsimmature granulocytes, percentage of total cells, blood 2019-02-08 08:54:00 Test Item Value Reference Range Interpretation Comments immature granulocytes, percentage of 0 % total cells, blood (test code = 78314-2) [facility] Springsbasophil count, [id number] 08:54:00 Test Item Value Reference Range Interpretation Comments basophil count, absolute (test 0.0 x10E3/uL 0.0-0.2 code = 94437-6) [facility] SpringsEosinophil Absolute [id number] 08:54:00 Test Item Value Reference Range Interpretation Comments Eosinophil Absolute Count (test 0.2 X10E3/UL 0.0-0.4 code = 18634-1) [facility] Springsmonocyte count, blood, iuzlswdpx6528-88-28 08:54:00 Test Item Value Reference Range Interpretation Comments monocyte count, blood, automated 0.6 X10E3/UL 0.1-0.9 (test code = 742-7) [facility] Springslymphocyte count, blood, njuwommfe1930-61-66 08:54:00 Test Item Value Reference Range Interpretation Comments lymphocyte count, blood, 1.2 X10E3/UL 0.7-3.1 automated (test code = 731-0) [facility] SpringsAbsolute Kuhkuylslaw5029-85-02 08:54:00 Test Item Value Reference Range Interpretation Comments Absolute Neutrophils (test code 6.1 X10E3/UL 1.4-7.0 = 38599-4) [facility] Springsbasophils as percent of blood hgmfbodeou5494-70-23 08:54:00 Test Item Value Reference Range Interpretation Comments basophils as percent of blood 0 % leukocytes (test code = 707-0) [facility] Springseosinophils as percent of blood iyveftbmog3303-70-10 08:54:00 Test Item Value Reference Range Interpretation Comments eosinophils as percent of blood 2 % leukocytes (test code = 713-8) [facility] Healthmonocytes as percent of blood ehkukecyzk7956-12-18 08:54:00 Test Item Value Reference Range Interpretation Comments monocytes as percent of blood 8 % leukocytes (test code = 5905-5) [facility] Springslymphocytes as percent of blood fqwqiupmjm3356-08-97 08:54:00 Test Item Value Reference Range Interpretation Comments lymphocytes as percent of blood 14 % leukocytes (test code = 736-9) [facility] Healthneutrophils as percent of blood jkohkbitvs0806-50-54 08:54:00 Test Item Value Reference Range Interpretation Comments neutrophils as percent of blood 76 % leukocytes (test code = 770-8) [facility] Springsplatelet dpdtb5458-16-31 08:54:00 Test Item Value Reference Range Interpretation Comments platelet count (test code = 213 X10E3/UL 150-379 777-3) [facility] Springsred blood cell distribution [id number] 08:54:00 Test Item Value Reference Range Interpretation Comments red blood cell distribution width 13.6 % 12.3-15.4 (test code = 788-0) [facility] corpuscular hemoglobin concentration, [id number] 08:54:00 Test Item Value Reference Range Interpretation Comments mean corpuscular hemoglobin 33.7 G/DL 31.5-35.7 concentration, RBC (test code = 786-4) [facility] corpuscular hemoglobin, [id number] 08:54:00 Test Item Value Reference Range Interpretation Comments mean corpuscular hemoglobin, RBC 33.9 pg 26.6-33.0 H (test code = 785-6) [facility] corpuscular volume, [id number] 08:54:00 Test Item Value Reference Range Interpretation Comments mean corpuscular volume, RBC (test 101 fL 79-97 H code = 787-2) [facility] Springshematocrit, rthiz1320-05-15 08:54:00 Test Item Value Reference Range Interpretation Comments hematocrit, blood (test code = 4544-3) 43.3 % 34.0-46.6 [facility] Springshemoglobin, [id number] 08:54:00 Test Item Value Reference Range Interpretation Comments hemoglobin, blood (test code = 14.6 g/dL 11.1-15.9 718-7) [facility] Springserythrocyte (RBC) [id number] 08:54:00 Test Item Value Reference Range Interpretation Comments erythrocyte (RBC) count (test 4.31 X10E6/UL 3.77-5.28 code = 789-8) [facility] Springsleukocyte count, [id number] 08:54:00 Test Item Value Reference Range Interpretation Comments leukocyte count, blood (test 8.0 X10E3/UL 3.4-10.8 code = 6690-2) [facility] SpringsCD4/CD8 [id number] 08:54:00 Test Item Value Reference Range Interpretation Comments CD4/CD8 ratio (test code = 63421) 1.08 0.92-3.72 [facility] SpringsT-suppressor cells (CD8) as percent of blood lymphocytes 2019-02-08 08:54:00 Test Item Value Reference Range Interpretation Comments T-suppressor cells (CD8) as percent of 28.6 % 12.0-35.5 blood lymphocytes (test code = 3517) [facility] Springsabsolute [id number] 08:54:00 Test Item Value Reference Range Interpretation Comments absolute CD8 (test code = 53544) 343 109-897 [facility] SpringsT-helper cells (CD4) as percent of blood lymphocytes 2019-02-08 08:54:00 Test Item Value Reference Range Interpretation Comments T-helper cells (CD4) as percent of 30.9 % 30.8-58.5 blood lymphocytes (test code = 8123-2) [facility] SpringsT-helper cells (CD4) [id number] 08:54:00 Test Item Value Reference Range Interpretation Comments T-helper cells (CD4) count (test code 371 /UL 359-1519 = 76446-0) [facility] SpringsLDL cholesterol, ujitx2093-79-02 08:51:00 Test Item Value Reference Range Interpretation Comments LDL cholesterol, serum (test code = 45 mg/dL 0-99 2089-1) [facility] ugrxtfqiqsjw0407-04-78 08:51:00 Test Item Value Reference Range Interpretation Comments very low density lipoproteins (test 38 mg/dL 5-40 code = 2091-7) [facility] SpringsHDL cholesterol, aykks6887-10-82 08:51:00 Test Item Value Reference Range Interpretation Comments HDL cholesterol, serum (test code = 36 mg/dL >39 L 5-9) [facility] Springstriglyceride, serum, tsgsuyg3631-98-59 08:51:00 Test Item Value Reference Range Interpretation Comments triglyceride, serum, fasting (test 188 mg/dL 0-149 H code = 2571-8) [facility] Springscholesterol, [id number] 08:51:00 Test Item Value Reference Range Interpretation Comments cholesterol, serum (test code = 119 mg/dL 303-923 8688-3) [facility] SpringsBASIC METABOLIC [id number] 02:25:00 Test Item Value Reference Range Interpretation [...] code = 8.4 mg/dL 8.0-10.5 N CA) [facility] PHONE# for criticals-[phone] or [phone] PHONE , FAX# cbc W/AUTO [id number] 02:13:00 Test Item Value Reference Range Interpretation [...] code = 0.00 x10 3/uL 0.0-0.1 N BC#) MANUAL DIFF REQUIRED (test code NO = MDIFF) [facility]# yth [phone]-[phone] or [phone] PHONE [phone], FAX# Quantiferon Gold TB blood test for tuberculosis zdovupzen4311-84-93 10:19:59 Test Item Value Reference Range Interpretation Comments Quantiferon Gold TB blood test for negative tuberculosis screening (test code = 71707-9) [facility] SpringsQuantiferon Gold TB blood test for tuberculosis screening 2018-09-26 08:58:00 Test Item Value Reference Range Interpretation Comments Quantiferon Gold TB blood test for Negative Negative tuberculosis screening (test code = 96949-7) [facility] Springshepatitis C antibody, [id number] 08:52:00 Test Item Value Reference Range Interpretation Comments hepatitis C antibody, serum (test code 0.3 0.0-0.9 = 5199-5) [facility] Springsrapid plasma reagin antibody, [id number] 08:52:00 Test Item Value Reference Range Interpretation Comments rapid plasma reagin antibody, Non Reactive Non Reactive serum (test code = 5291-0) [facility] SpringsHIV-1RNA, serum, by PCR, sznmvlredoyj2509-08-46 08:52:00 Test Item Value Reference Range Interpretation Comments HIV-1RNA, serum, by PCR, <20 copies/mL quantitative (test code = 16318) [facility] SpringsLDL cholesterol, [id number] 08:52:00 Test Item Value Reference Range Interpretation Comments LDL cholesterol, serum (test code = 69 mg/dL 0-99 2088-1) [facility] enpayyttzlpe9860-69-47 08:52:00 Test Item Value Reference Range Interpretation Comments very low density lipoproteins (test 29 mg/dL 5-40 code = 2090-7) [facility] SpringsHDL cholesterol, mevdm5527-48-66 08:52:00 Test Item Value Reference Range Interpretation Comments HDL cholesterol, serum (test code = 41 mg/dL >39 5-9) [facility] Springstriglyceride, serum, [id number] 08:52:00 Test Item Value Reference Range Interpretation Comments triglyceride, serum, fasting (test 143 mg/dL 0-149 code = 2571-8) [facility] Springscholesterol, [id number] 08:52:00 Test Item Value Reference Range Interpretation Comments cholesterol, serum (test code = 139 mg/dL 336-362 4989-3) [facility] Springsalanine aminotransferase (SGPT), [id number] 08:52:00 Test Item Value Reference Range Interpretation Comments alanine aminotransferase (SGPT), serum 11 1/L 0-32 (test code = 1742-6) [facility] Springsaspartate aminotransferase (SGOT), naslb5783-30-55 08:52:00 Test Item Value Reference Range Interpretation Comments aspartate aminotransferase (SGOT), 12 1/L 0-40 serum (test code = 1920-8) [facility] Springsalkaline phosphatase, ohnpx4418-06-69 08:52:00 Test Item Value Reference Range Interpretation Comments alkaline phosphatase, serum (test 141 1/L 39-117 H code = 1783-0) [facility] Springsbilirubin, serum, [id number] 08:52:00 Test Item Value Reference Range Interpretation Comments bilirubin, serum, total (test code 0.3 mg/dL 0.0-1.2 = 1975-2) [facility] Springsalbumin/globulin ratio, [id number] 08:52:00 Test Item Value Reference Range Interpretation Comments albumin/globulin ratio, serum (test 1.7 1.2-2.2 code = 1759-0) [facility] Healthglobulin, [id number] 08:52:00 Test Item Value Reference Range Interpretation Comments globulin, serum (test code = 2336-6) 2.5 1.5-4.5 [facility] Healthalbumin, [id number] 08:52:00 Test Item Value Reference Range Interpretation Comments albumin, serum (test code = 1751-7) 4.2 g/dL 3.5-5.5 [facility] Springsprotein, total, [id number] 08:52:00 Test Item Value Reference Range Interpretation Comments protein, total, serum (test code = 6.7 g/dL 6.0-8.5 2885-2) [facility] Springscalcium, [id number] 08:52:00 Test Item Value Reference Range Interpretation Comments calcium, serum (test code = 1999-8) 9.4 mg/dL 8.7-10.2 [facility] Springscarbon dioxide, venous [id number] 08:52:00 Test Item Value Reference Range Interpretation Comments carbon dioxide, venous blood (test 26 mmol/L - code = 7-1) [facility] Springschloride, [id number] 08:52:00 Test Item Value Reference Range Interpretation Comments chloride, serum (test code = 98 mmol/L 96-106 2075-0) [facility] Healthpotassium, [id number] 08:52:00 Test Item Value Reference Range Interpretation Comments potassium, serum (test code = 4.4 mmol/L 3.5-5.2 2823-3) [facility]sodium, [id number] 08:52:00 Test Item Value Reference Range Interpretation Comments sodium, serum (test code = 2951-2) 140 mmol/L 134-144 [facility] Springsurea nitrogen/creatinine ratio, [id number] 08:52:00 Test Item Value Reference Range Interpretation Comments urea nitrogen/creatinine ratio, serum 12 9-23 (test code = 3097-3) [facility] HealtheGFR if Zkeekont1613-01-47 08:52:00 Test Item Value Reference Range Interpretation Comments eGFR if 98 >59 (test code = 72466-8) mL/min/((173/100).m2) [facility] SpringsEstimated Glomerular Filtration Rate (calc)2018-09-26 08:52:00 Test Item Value Reference Range Interpretation Comments Estimated Glomerular 85 >59 Filtration Rate (calc) mL/min/((173/100).m2 (test code = 04973-8) ) [facility] Springscreatinine, [id number] 08:52:00 Test Item Value Reference Range Interpretation Comments creatinine, serum (test code = 0.77 mg/dL 0.57-1.00 2160-0) [facility] Springsurea nitrogen, [id number] 08:52:00 Test Item Value Reference Range Interpretation Comments urea nitrogen, blood (test code = 9 mg/dL 6-24 3094-0) [facility] Springsblood glucose, [id number] 08:52:00 Test Item Value Reference Range Interpretation Comments blood glucose, random (test code = 129 mg/dL 65-99 H 2339-0) [facility] Springsimmature granulocytes, percentage of total cells, blood 2018-09-26 08:52:00 Test Item Value Reference Range Interpretation Comments immature granulocytes, percentage of 0 % total cells, blood (test code = 04713-2) [facility] Healthbasophil count, ggejpxuv3214-12-37 08:52:00 Test Item Value Reference Range Interpretation Comments basophil count, absolute (test 0.0 x10E3/uL 0.0-0.2 code = 13518-9) [facility] HealthEosinophil Absolute Ysvrl5050-14-50 08:52:00 Test Item Value Reference Range Interpretation Comments Eosinophil Absolute Count (test 0.2 X10E3/UL 0.0-0.4 code = 67450-5) [facility] Springsmonocyte count, blood, cylpbwuun7831-93-01 08:52:00 Test Item Value Reference Range Interpretation Comments monocyte count, blood, automated 0.6 X10E3/UL 0.1-0.9 (test code = 742-7) [facility] Springslymphocyte count, blood, tndmwpvbr2434-11-55 08:52:00 Test Item Value Reference Range Interpretation Comments lymphocyte count, blood, 1.7 X10E3/UL 0.7-3.1 automated (test code = 731-0) [facility] HealthAbsolute Ogqhdvobdja0368-30-39 08:52:00 Test Item Value Reference Range Interpretation Comments Absolute Neutrophils (test code 4.3 X10E3/UL 1.4-7.0 = 74469-7) [facility] Springsbasophils as percent of blood bfjjqyipnr7939-89-01 08:52:00 Test Item Value Reference Range Interpretation Comments basophils as percent of blood 0 % leukocytes (test code = 707-0) [facility] Healtheosinophils as percent of blood tsjwsfalrh1371-50-03 08:52:00 Test Item Value Reference Range Interpretation Comments eosinophils as percent of blood 3 % leukocytes (test code = 713-8) [facility] Healthmonocytes as percent of blood zfyceiouvw1260-78-67 08:52:00 Test Item Value Reference Range Interpretation Comments monocytes as percent of blood 8 % leukocytes (test code = 5905-5) [facility] Springslymphocytes as percent of blood dhpritwdhf5405-47-51 08:52:00 Test Item Value Reference Range Interpretation Comments lymphocytes as percent of blood 25 % leukocytes (test code = 736-9) [facility] Springsneutrophils as percent of blood hysthtthwi3686-05-35 08:52:00 Test Item Value Reference Range Interpretation Comments neutrophils as percent of blood 64 % leukocytes (test code = 770-8) [facility] Springsplatelet epcxb2819-34-65 08:52:00 Test Item Value Reference Range Interpretation Comments platelet count (test code = 173 X10E3/UL 150-379 777-3) [facility] Springsred blood cell distribution ffqgg6420-02-85 08:52:00 Test Item Value Reference Range Interpretation Comments red blood cell distribution width 12.4 % 12.3-15.4 (test code = 788-0) [facility] corpuscular hemoglobin concentration, [id number] 08:52:00 Test Item Value Reference Range Interpretation Comments mean corpuscular hemoglobin 34.0 G/DL 31.5-35.7 concentration, RBC (test code = 786-4) [facility] corpuscular hemoglobin, [id number] 08:52:00 Test Item Value Reference Range Interpretation Comments mean corpuscular hemoglobin, RBC 34.7 pg 26.6-33.0 H (test code = 785-6) [facility] corpuscular volume, [id number] 08:52:00 Test Item Value Reference Range Interpretation Comments mean corpuscular volume, RBC (test 102 fL 79-97 H code = 787-2) [facility]hematocrit, wxbgc0398-20-10 08:52:00 Test Item Value Reference Range Interpretation Comments hematocrit, blood (test code = 4544-3) 40.9 % 34.0-46.6 [facility] Springshemoglobin, [id number] 08:52:00 Test Item Value Reference Range Interpretation Comments hemoglobin, blood (test code = 13.9 g/dL 11.1-15.9 718-7) [facility] Springserythrocyte (RBC) [id number] 08:52:00 Test Item Value Reference Range Interpretation Comments erythrocyte (RBC) count (test 4.01 X10E6/UL 3.77-5.28 code = 789-8) [facility] Springsleukocyte count, [id number] 08:52:00 Test Item Value Reference Range Interpretation Comments leukocyte count, blood (test 6.8 X10E3/UL 3.4-10.8 code = 6690-2) [facility] SpringsCD4/CD8 [id number] 08:52:00 Test Item Value Reference Range Interpretation Comments CD4/CD8 ratio (test code = 05640) 0.98 0.92-3.72 [facility] SpringsT-suppressor cells (CD8) as percent of blood lymphocytes 2018-09-26 08:52:00 Test Item Value Reference Range Interpretation Comments T-suppressor cells (CD8) as percent of 26.4 % 12.0-35.5 blood lymphocytes (test code = 3517) [facility] Springsabsolute [id number] 08:52:00 Test Item Value Reference Range Interpretation Comments absolute CD8 (test code = 14696) 449 109-897 [facility] SpringsT-helper cells (CD4) as percent of blood lymphocytes 2018-09-26 08:52:00 Test Item Value Reference Range Interpretation Comments T-helper cells (CD4) as percent of 25.9 % 30.8-58.5 L blood lymphocytes (test code = 8123-2) [facility] SpringsT-helper cells (CD4) glvvf3350-84-51 08:52:00 Test Item Value Reference Range Interpretation Comments T-helper cells (CD4) count (test code 440 /UL 359-1519 = 57556-4) [facility] Springsrapid plasma reagin antibody, ikksq8528-96-05 09:22:00 Test Item Value Reference Range Interpretation Comments rapid plasma reagin antibody, Non Reactive Non Reactive serum (test code = 5291-0) [facility] SpringsHIV-1RNA, serum, by PCR, outwdiocnxkd8734-99-63 09:22:00 Test Item Value Reference Range Interpretation Comments HIV-1RNA, serum, by PCR, <20 copies/mL quantitative (test code = 36789) [facility] SpringsLDL cholesterol, [id number] 09:22:00 Test Item Value Reference Range Interpretation Comments LDL cholesterol, serum (test code = 63 mg/dL 0-99 2088-1) [facility] Springsvery low density twcacwvcwyju5008-98-19 09:22:00 Test Item Value Reference Range Interpretation Comments very low density lipoproteins (test 53 mg/dL 5-40 H code = 1-7) [facility] SpringsHDL cholesterol, [id number] 09:22:00 Test Item Value Reference Range Interpretation Comments HDL cholesterol, serum (test code = 38 mg/dL >39 L 2084-9) [facility] Springstriglyceride, serum, xezgkqk0503-60-36 09:22:00 Test Item Value Reference Range Interpretation Comments triglyceride, serum, fasting (test 265 mg/dL 0-149 H code = 2571-8) [facility] Springscholesterol, ydrff8346-15-26 09:22:00 Test Item Value Reference Range Interpretation Comments cholesterol, serum (test code = 154 mg/dL 103-443 0851-3) [facility] Springsalanine aminotransferase (SGPT), [id number] 09:22:00 Test Item Value Reference Range Interpretation Comments alanine aminotransferase (SGPT), serum 6 1/L 0-32 (test code = 1742-6) [facility] Springsaspartate aminotransferase (SGOT), [id number] 09:22:00 Test Item Value Reference Range Interpretation Comments aspartate aminotransferase (SGOT), 8 1/L 0-40 serum (test code = 1920-8) [facility] Springsalkaline phosphatase, iwpah0057-84-90 09:22:00 Test Item Value Reference Range Interpretation Comments alkaline phosphatase, serum (test code 93 1/L 39-117 = 1783-0) [facility] Springsbilirubin, serum, [id number] 09:22:00 Test Item Value Reference Range Interpretation Comments bilirubin, serum, total (test code 0.2 mg/dL 0.0-1.2 = 1975-2) [facility] Springsalbumin/globulin ratio, atsax2887-58-80 09:22:00 Test Item Value Reference Range Interpretation Comments albumin/globulin ratio, serum (test 1.3 1.2-2.2 code = 1759-0) [facility] Springsglobulin, [id number] 09:22:00 Test Item Value Reference Range Interpretation Comments globulin, serum (test code = 2336-6) 3.1 1.5-4.5 [facility] Healthalbumin, [id number] 09:22:00 Test Item Value Reference Range Interpretation Comments albumin, serum (test code = 1751-7) 4.0 g/dL 3.5-5.5 [facility] Healthprotein, total, [id number] 09:22:00 Test Item Value Reference Range Interpretation Comments protein, total, serum (test code = 7.1 g/dL 6.0-8.5 2885-2) [facility] Springscalcium, [id number] 09:22:00 Test Item Value Reference Range Interpretation Comments calcium, serum (test code = 2000-8) 9.6 mg/dL 8.7-10.2 [facility] Springscarbon dioxide, venous [id number] 09:22:00 Test Item Value Reference Range Interpretation Comments carbon dioxide, venous blood (test 28 mmol/L 18-29 code = 7-1) [facility] Springschloride, [id number] 09:22:00 Test Item Value Reference Range Interpretation Comments chloride, serum (test code = 98 mmol/L 96-106 2075-0) [facility] Springspotassium, [id number] 09:22:00 Test Item Value Reference Range Interpretation Comments potassium, serum (test code = 4.5 mmol/L 3.5-5.2 2823-3) [facility] Springssodium, [id number] 09:22:00 Test Item Value Reference Range Interpretation Comments sodium, serum (test code = 2951-2) 140 mmol/L 134-144 [facility] Springsurea nitrogen/creatinine ratio, [id number] 09:22:00 Test Item Value Reference Range Interpretation Comments urea nitrogen/creatinine ratio, serum 12 9-23 (test code = 3097-3) [facility] HealtheGFR if Unudivzs1940-37-60 09:22:00 Test Item Value Reference Range Interpretation Comments eGFR if 111 >59 (test code = 21325-4) mL/min/((173/100).m2) [facility] SpringsEstimated Glomerular Filtration Rate (calc)2018-02-07 09:22:00 Test Item Value Reference Range Interpretation Comments Estimated Glomerular 96 >59 Filtration Rate (calc) mL/min/((173/100).m2 (test code = 38147-2) ) [facility] Healthcreatinine, wuyjk4516-04-83 09:22:00 Test Item Value Reference Range Interpretation Comments creatinine, serum (test code = 0.69 mg/dL 0.57-1.00 2160-0) [facility] Springsurea nitrogen, [id number] 09:22:00 Test Item Value Reference Range Interpretation Comments urea nitrogen, blood (test code = 8 mg/dL 6-24 3094-0) [facility] Springsblood glucose, [id number] 09:22:00 Test Item Value Reference Range Interpretation Comments blood glucose, random (test code = 154 mg/dL 65-99 H 2339-0) [facility] Springsimmature granulocytes, percentage of total cells, blood 2018-02-07 09:22:00 Test Item Value Reference Range Interpretation Comments immature granulocytes, percentage of 0 % total cells, blood (test code = 85315-6) [facility] Springsbasophil count, tuqsbgry0782-24-37 09:22:00 Test Item Value Reference Range Interpretation Comments basophil count, absolute (test 0.0 x10E3/uL 0.0-0.2 code = 86901-1) [facility] SpringsEosinophil Absolute [id number] 09:22:00 Test Item Value Reference Range Interpretation Comments Eosinophil Absolute Count (test 0.1 X10E3/UL 0.0-0.4 code = 11131-6) [facility] Springsmonocyte count, blood, iooskqbjh9688-02-71 09:22:00 Test Item Value Reference Range Interpretation Comments monocyte count, blood, automated 0.4 X10E3/UL 0.1-0.9 (test code = 742-7) [facility] Springslymphocyte count, blood, eoipoxgue6786-94-52 09:22:00 Test Item Value Reference Range Interpretation Comments lymphocyte count, blood, 1.4 X10E3/UL 0.7-3.1 automated (test code = 731-0) [facility] SpringsAbsolute Fbxsupxskps1695-05-94 09:22:00 Test Item Value Reference Range Interpretation Comments Absolute Neutrophils (test code 3.3 X10E3/UL 1.4-7.0 = 42197-9) [facility] Healthbasophils as percent of blood rtqiwxbwfy4654-14-35 09:22:00 Test Item Value Reference Range Interpretation Comments basophils as percent of blood 0 % leukocytes (test code = 707-0) [facility] Springseosinophils as percent of blood ltzuesngel1236-18-53 09:22:00 Test Item Value Reference Range Interpretation Comments eosinophils as percent of blood 2 % leukocytes (test code = 713-8) [facility] Healthmonocytes as percent of blood aayankdyqt5929-03-01 09:22:00 Test Item Value Reference Range Interpretation Comments monocytes as percent of blood 8 % leukocytes (test code = 5905-5) [facility] Springslymphocytes as percent of blood iuibomdnew4781-72-03 09:22:00 Test Item Value Reference Range Interpretation Comments lymphocytes as percent of blood 26 % leukocytes (test code = 736-9) [facility] Springsneutrophils as percent of blood lcjxqvjkwl9934-88-22 09:22:00 Test Item Value Reference Range Interpretation Comments neutrophils as percent of blood 64 % leukocytes (test code = 770-8) [facility] Springsplatelet oezhw9608-73-46 09:22:00 Test Item Value Reference Range Interpretation Comments platelet count (test code = 194 X10E3/UL 150-379 777-3) [facility] Springsred blood cell distribution kiayy2693-13-98 09:22:00 Test Item Value Reference Range Interpretation Comments red blood cell distribution width 14.1 % 12.3-15.4 (test code = 788-0) [facility] corpuscular hemoglobin concentration, [id number] 09:22:00 Test Item Value Reference Range Interpretation Comments mean corpuscular hemoglobin 33.9 G/DL 31.5-35.7 concentration, RBC (test code = 786-4) [facility], [id number] 09:22:00 Test Item Value Reference Range Interpretation Comments mean corpuscular hemoglobin, RBC 34.2 pg 26.6-33.0 H (test code = 785-6) [facility] corpuscular volume, [id number] 09:22:00 Test Item Value Reference Range Interpretation Comments mean corpuscular volume, RBC (test 101 fL 79-97 H code = 787-2) [facility]hematocrit, [id number] 09:22:00 Test Item Value Reference Range Interpretation Comments hematocrit, blood (test code = 4544-3) 41.3 % 34.0-46.6 [facility] Springshemoglobin, [id number] 09:22:00 Test Item Value Reference Range Interpretation Comments hemoglobin, blood (test code = 14.0 g/dL 11.1-15.9 718-7) [facility] Springserythrocyte (RBC) krzxx9006-93-04 09:22:00 Test Item Value Reference Range Interpretation Comments erythrocyte (RBC) count (test 4.09 X10E6/UL 3.77-5.28 code = 789-8) [facility] Springsleukocyte count, [id number] 09:22:00 Test Item Value Reference Range Interpretation Comments leukocyte count, blood (test 5.1 X10E3/UL 3.4-10.8 code = 6690-2) [facility] SpringsCD4/CD8 [id number] 09:22:00 Test Item Value Reference Range Interpretation Comments CD4/CD8 ratio (test code = 19220) 0.85 0.92-3.72 L [facility] SpringsT-suppressor cells (CD8) as percent of blood lymphocytes 2018-02-07 09:22:00 Test Item Value Reference Range Interpretation Comments T-suppressor cells (CD8) as percent of 29.5 % 12.0-35.5 blood lymphocytes (test code = 3517) [facility] Springsabsolute [id number] 09:22:00 Test Item Value Reference Range Interpretation Comments absolute CD8 (test code = 90922) 413 109-897 [facility] SpringsT-helper cells (CD4) as percent of blood lymphocytes 2018-02-07 09:22:00 Test Item Value Reference Range Interpretation Comments T-helper cells (CD4) as percent of 25.0 % 30.8-58.5 L blood lymphocytes (test code = 8123-2) [facility] SpringsT-helper cells (CD4) desku5992-18-39 09:22:00 Test Item Value Reference Range Interpretation Comments T-helper cells (CD4) count (test code 350 /UL 359-1519 L = 11332-3) [facility] Springsrapid plasma reagin antibody, [id number] 10:27:00 Test Item Value Reference Range Interpretation Comments rapid plasma reagin antibody, Non Reactive Non Reactive serum (test code = 5291-0) [facility] SpringsHIV-1RNA, serum, by PCR, gwrfrtchpqti3735-30-24 10:27:00 Test Item Value Reference Range Interpretation Comments HIV-1RNA, serum, by PCR, quantitative 50 /mL (test code = 33849) [facility] SpringsLDL cholesterol, [id number] 10:27:00 Test Item Value Reference Range Interpretation Comments LDL cholesterol, serum (test code = 63 mg/dL 0-99 2088-1) [facility] Springsvery low density vnctillgvtlg6627-10-77 10:27:00 Test Item Value Reference Range Interpretation Comments very low density lipoproteins (test 32 mg/dL 5-40 code = 1-7) [facility] SpringsHDL cholesterol, zteza9048-11-55 10:27:00 Test Item Value Reference Range Interpretation Comments HDL cholesterol, serum (test code = 47 mg/dL >39 2084-9) [facility] Springstriglyceride, serum, [id number] 10:27:00 Test Item Value Reference Range Interpretation Comments triglyceride, serum, fasting (test 162 mg/dL 0-149 H code = 2571-8) [facility] Springscholesterol, [id number] 10:27:00 Test Item Value Reference Range Interpretation Comments cholesterol, serum (test code = 142 mg/dL 041-832 8490-3) [facility] Springsalanine aminotransferase (SGPT), [id number] 10:27:00 Test Item Value Reference Range Interpretation Comments alanine aminotransferase (SGPT), serum 9 1/L 0-32 (test code = 1742-6) [facility] Springsaspartate aminotransferase (SGOT), nvqtl5912-82-89 10:27:00 Test Item Value Reference Range Interpretation Comments aspartate aminotransferase (SGOT), 9 1/L 0-40 serum (test code = 1920-8) [facility] Springsalkaline phosphatase, psosl1016-79-03 10:27:00 Test Item Value Reference Range Interpretation Comments alkaline phosphatase, serum (test 100 1/L 39-117 code = 1783-0) [facility] Healthbilirubin, serum, ohuzl9926-26-26 10:27:00 Test Item Value Reference Range Interpretation Comments bilirubin, serum, total (test code 0.3 mg/dL 0.0-1.2 = 1975-2) [facility] Healthalbumin/globulin ratio, zueat3782-74-23 10:27:00 Test Item Value Reference Range Interpretation Comments albumin/globulin ratio, serum (test 1.4 1.2-2.2 code = 1759-0) [facility] Healthglobulin, [id number] 10:27:00 Test Item Value Reference Range Interpretation Comments globulin, serum (test code = 2336-6) 2.9 1.5-4.5 [facility] Healthalbumin, [id number] 10:27:00 Test Item Value Reference Range Interpretation Comments albumin, serum (test code = 1751-7) 4.2 g/dL 3.5-5.5 [facility] Healthprotein, total, [id number] 10:27:00 Test Item Value Reference Range Interpretation Comments protein, total, serum (test code = 7.1 g/dL 6.0-8.5 2885-2) [facility] Springscalcium, [id number] 10:27:00 Test Item Value Reference Range Interpretation Comments calcium, serum (test code = 1999-8) 9.6 mg/dL 8.7-10.2 [facility] Springscarbon dioxide, venous onnmh0970-61-88 10:27:00 Test Item Value Reference Range Interpretation Comments carbon dioxide, venous blood (test 27 mmol/L 18-29 code = 2026-1) [facility] Healthchloride, [id number] 10:27:00 Test Item Value Reference Range Interpretation Comments chloride, serum (test code = 96 mmol/L 96-106 5-0) [facility] Healthpotassium, ikaix4956-32-91 10:27:00 Test Item Value Reference Range Interpretation Comments potassium, serum (test code = 5.1 mmol/L 3.5-5.2 2823-3) [facility] Springssodium, wdynx5546-25-05 10:27:00 Test Item Value Reference Range Interpretation Comments sodium, serum (test code = 2951-2) 138 mmol/L 134-144 [facility] Springsurea nitrogen/creatinine ratio, [id number] 10:27:00 Test Item Value Reference Range Interpretation Comments urea nitrogen/creatinine ratio, serum 14 9-23 (test code = 3097-3) [facility] HealtheGFR if Psflsikb9343-35-55 10:27:00 Test Item Value Reference Range Interpretation Comments eGFR if 86 >59 (test code = 40162-4) mL/min/((173/100).m2) [facility] SpringsEstimated Glomerular Filtration Rate (calc)2017-10-13 10:27:00 Test Item Value Reference Range Interpretation Comments Estimated Glomerular 74 >59 Filtration Rate (calc) mL/min/((173/100).m2 (test code = 76201-3) ) [facility] Springscreatinine, allrx9708-57-88 10:27:00 Test Item Value Reference Range Interpretation Comments creatinine, serum (test code = 0.87 mg/dL 0.57-1.00 2160-0) [facility] Springsurea nitrogen, [id number] 10:27:00 Test Item Value Reference Range Interpretation Comments urea nitrogen, blood (test code = 12 mg/dL 6-24 3094-0) [facility] Springsblood glucose, gnjenp5241-65-18 10:27:00 Test Item Value Reference Range Interpretation Comments blood glucose, random (test code = 119 mg/dL 65-99 H 2339-0) [facility] Springsimmature granulocytes, percentage of total cells, blood 2017-10-13 10:27:00 Test Item Value Reference Range Interpretation Comments immature granulocytes, percentage of 0 % total cells, blood (test code = 64163-1) [facility] Springsbasophil count, ovrjzcql3330-08-43 10:27:00 Test Item Value Reference Range Interpretation Comments basophil count, absolute (test 0.0 x10E3/uL 0.0-0.2 code = 11658-0) [facility] SpringsEosinophil Absolute Jnlqg8718-19-07 10:27:00 Test Item Value Reference Range Interpretation Comments Eosinophil Absolute Count (test 0.1 X10E3/UL 0.0-0.4 code = 50659-7) [facility] Springsmonocyte count, blood, tmwfkrcgl7837-59-21 10:27:00 Test Item Value Reference Range Interpretation Comments monocyte count, blood, automated 0.5 X10E3/UL 0.1-0.9 (test code = 742-7) [facility] Springslymphocyte count, blood, wqhyuqhor7062-40-48 10:27:00 Test Item Value Reference Range Interpretation Comments lymphocyte count, blood, 1.7 X10E3/UL 0.7-3.1 automated (test code = 731-0) [facility] SpringsAbsolute Pqlkwzqqaex5746-22-47 10:27:00 Test Item Value Reference Range Interpretation Comments Absolute Neutrophils (test code 5.4 X10E3/UL 1.4-7.0 = 36894-6) [facility] Springsbasophils as percent of blood hycdxnednf1760-48-53 10:27:00 Test Item Value Reference Range Interpretation Comments basophils as percent of blood 0 % leukocytes (test code = 707-0) [facility] Springseosinophils as percent of blood hoftuzgsds9567-87-98 10:27:00 Test Item Value Reference Range Interpretation Comments eosinophils as percent of blood 1 % leukocytes (test code = 713-8) [facility] Healthmonocytes as percent of blood zjxyobxytp9601-70-88 10:27:00 Test Item Value Reference Range Interpretation Comments monocytes as percent of blood 7 % leukocytes (test code = 5905-5) [facility] Springslymphocytes as percent of blood qwzjebgayj2128-89-92 10:27:00 Test Item Value Reference Range Interpretation Comments lymphocytes as percent of blood 22 % leukocytes (test code = 736-9) [facility] Springsneutrophils as percent of blood ytawixmahn6141-45-17 10:27:00 Test Item Value Reference Range Interpretation Comments neutrophils as percent of blood 70 % leukocytes (test code = 770-8) [facility] Springsplatelet [id number] 10:27:00 Test Item Value Reference Range Interpretation Comments platelet count (test code = 193 X10E3/UL 150-379 777-3) [facility] Springsred blood cell distribution [id number] 10:27:00 Test Item Value Reference Range Interpretation Comments red blood cell distribution width 13.7 % 12.3-15.4 (test code = 788-0) [facility] corpuscular hemoglobin concentration, [id number] 10:27:00 Test Item Value Reference Range Interpretation Comments mean corpuscular hemoglobin 35.0 G/DL 31.5-35.7 concentration, RBC (test code = 786-4) [facility], [id number] 10:27:00 Test Item Value Reference Range Interpretation Comments mean corpuscular hemoglobin, RBC 35.6 pg 26.6-33.0 H (test code = 785-6) [facility], [id number] 10:27:00 Test Item Value Reference Range Interpretation Comments mean corpuscular volume, RBC (test 102 fL 79-97 H code = 787-2) [facility]hematocrit, [id number] 10:27:00 Test Item Value Reference Range Interpretation Comments hematocrit, blood (test code = 4544-3) 43.7 % 34.0-46.6 [facility] Springshemoglobin, [id number] 10:27:00 Test Item Value Reference Range Interpretation Comments hemoglobin, blood (test code = 15.3 g/dL 11.1-15.9 718-7) [facility] Springserythrocyte (RBC) [id number] 10:27:00 Test Item Value Reference Range Interpretation Comments erythrocyte (RBC) count (test 4.30 X10E6/UL 3.77-5.28 code = 789-8) [facility] Springsleukocyte count, [id number] 10:27:00 Test Item Value Reference Range Interpretation Comments leukocyte count, blood (test 7.7 X10E3/UL 3.4-10.8 code = 6690-2) [facility] SpringsCD4/CD8 [id number] 10:27:00 Test Item Value Reference Range Interpretation Comments CD4/CD8 ratio (test code = 33201) 0.70 0.92-3.72 L [facility] SpringsT-suppressor cells (CD8) as percent of blood lymphocytes 2017-10-13 10:27:00 Test Item Value Reference Range Interpretation Comments T-suppressor cells (CD8) as percent of 27.8 % 12.0-35.5 blood lymphocytes (test code = 3517) [facility]absolute [id number] 10:27:00 Test Item Value Reference Range Interpretation Comments absolute CD8 (test code = 50210) 473 109-897 [facility] SpringsT-helper cells (CD4) as percent of blood lymphocytes 2017-10-13 10:27:00 Test Item Value Reference Range Interpretation Comments T-helper cells (CD4) as percent of 19.4 % 30.8-58.5 L blood lymphocytes (test code = 8123-2) [facility] SpringsT-helper cells (CD4) [id number] 10:27:00 Test Item Value Reference Range Interpretation Comments T-helper cells (CD4) count (test code 330 /UL 359-1519 L = 03448-2) [facility] Springsrapid plasma reagin antibody, [id number] 13:13:00 Test Item Value Reference Range Interpretation Comments rapid plasma reagin antibody, Non Reactive Non Reactive serum (test code = 5291-0) [facility] SpringsHIV-1RNA, serum, by PCR, [id number] 13:13:00 Test Item Value Reference Range Interpretation Comments HIV-1RNA, serum, by PCR, 85629 /mL quantitative (test code = 28784) [facility] SpringsLDL cholesterol, [id number] 13:13:00 Test Item Value Reference Range Interpretation Comments LDL cholesterol, serum (test code = 38 mg/dL 0-99 2088-1) [facility] Springsvery low density [id number] 13:13:00 Test Item Value Reference Range Interpretation Comments very low density lipoproteins (test 24 mg/dL 5-40 code = 2091-7) [facility] SpringsHDL cholesterol, [id number] 13:13:00 Test Item Value Reference Range Interpretation Comments HDL cholesterol, serum (test code = 36 mg/dL >39 L 5-9) [facility] Springstriglyceride, serum, [id number] 13:13:00 Test Item Value Reference Range Interpretation Comments triglyceride, serum, fasting (test 119 mg/dL 0-149 code = 2571-8) [facility] Springscholesterol, [id number] 13:13:00 Test Item Value Reference Range Interpretation Comments cholesterol, serum (test code = 98 mg/dL 100-199 L 2093-3) [facility] Springsalanine aminotransferase (SGPT), [id number] 13:13:00 Test Item Value Reference Range Interpretation Comments alanine aminotransferase (SGPT), serum 19 1/L 0-32 (test code = 1742-6) [facility] Springsaspartate aminotransferase (SGOT), [id number] 13:13:00 Test Item Value Reference Range Interpretation Comments aspartate aminotransferase (SGOT), 18 1/L 0-40 serum (test code = 1920-8) [facility] Springsalkaline phosphatase, [id number] 13:13:00 Test Item Value Reference Range Interpretation Comments alkaline phosphatase, serum (test 110 1/L 39-117 code = 1783-0) [facility]bilirubin, serum, [id number] 13:13:00 Test Item Value Reference Range Interpretation Comments bilirubin, serum, total (test code 0.3 mg/dL 0.0-1.2 = 1975-2) [facility] Springsalbumin/globulin ratio, [id number] 13:13:00 Test Item Value Reference Range Interpretation Comments albumin/globulin ratio, serum (test 1.4 1.2-2.2 code = 1759-0) [facility] Healthglobulin, [id number] 13:13:00 Test Item Value Reference Range Interpretation Comments globulin, serum (test code = 2336-6) 2.7 1.5-4.5 [facility] Healthalbumin, [id number] 13:13:00 Test Item Value Reference Range Interpretation Comments albumin, serum (test code = 1751-7) 3.8 g/dL 3.5-5.5 [facility] Springsprotein, total, [id number] 13:13:00 Test Item Value Reference Range Interpretation Comments protein, total, serum (test code = 6.5 g/dL 6.0-8.5 2885-2) [facility] Springscalcium, [id number] 13:13:00 Test Item Value Reference Range Interpretation Comments calcium, serum (test code = 2000-8) 8.9 mg/dL 8.7-10.2 [facility] Springscarbon dioxide, venous [id number] 13:13:00 Test Item Value Reference Range Interpretation Comments carbon dioxide, venous blood (test 24 mmol/L 18-29 code = 2027-1) [facility] Healthchloride, [id number] 13:13:00 Test Item Value Reference Range Interpretation Comments chloride, serum (test code = 100 mmol/L 96-106 2075-0) [facility] Healthpotassium, [id number] 13:13:00 Test Item Value Reference Range Interpretation Comments potassium, serum (test code = 4.1 mmol/L 3.5-5.2 2823-3) [facility] Healthsodium, [id number] 13:13:00 Test Item Value Reference Range Interpretation Comments sodium, serum (test code = 2951-2) 142 mmol/L 134-144 [facility] Springsurea nitrogen/creatinine ratio, [id number] 13:13:00 Test Item Value Reference Range Interpretation Comments urea nitrogen/creatinine ratio, serum 13 9-23 (test code = 3097-3) [facility] HealtheGFR if Arzktmzq5955-37-46 13:13:00 Test Item Value Reference Range Interpretation Comments eGFR if 102 >59 (test code = 92812-7) mL/min/((173/100).m2) [facility] SpringsEstimated Glomerular Filtration Rate (calc)2017-05-25 13:13:00 Test Item Value Reference Range Interpretation Comments Estimated Glomerular 89 >59 Filtration Rate (calc) mL/min/((173/100).m2 (test code = 35816-3) ) [facility] Springscreatinine, [id number] 13:13:00 Test Item Value Reference Range Interpretation Comments creatinine, serum (test code = 0.75 mg/dL 0.57-1.00 2160-0) [facility] Springsurea nitrogen, [id number] 13:13:00 Test Item Value Reference Range Interpretation Comments urea nitrogen, blood (test code = 10 mg/dL 6-24 3094-0) [facility] Springsblood glucose, [id number] 13:13:00 Test Item Value Reference Range Interpretation Comments blood glucose, random (test code = 123 mg/dL 65-99 H 2339-0) [facility] Springsimmature granulocytes, percentage of total cells, blood 2017-05-25 13:13:00 Test Item Value Reference Range Interpretation Comments immature granulocytes, percentage of 0 % total cells, blood (test code = 56364-4) [facility] Healthbasophil count, [id number] 13:13:00 Test Item Value Reference Range Interpretation Comments basophil count, absolute (test 0.0 x10E3/uL 0.0-0.2 code = 57616-5) [facility] HealthEosinophil Absolute [id number] 13:13:00 Test Item Value Reference Range Interpretation Comments Eosinophil Absolute Count (test 0.1 X10E3/UL 0.0-0.4 code = 96181-4) [facility] Healthmonocyte count, blood, [id number] 13:13:00 Test Item Value Reference Range Interpretation Comments monocyte count, blood, automated 0.6 X10E3/UL 0.1-0.9 (test code = 742-7) [facility] Springslymphocyte count, blood, [id number] 13:13:00 Test Item Value Reference Range Interpretation Comments lymphocyte count, blood, 0.9 X10E3/UL 0.7-3.1 automated (test code = 731-0) [facility] HealthAbsolute Lgzjwxhakot1914-35-64 13:13:00 Test Item Value Reference Range Interpretation Comments Absolute Neutrophils (test code 3.6 X10E3/UL 1.4-7.0 = 22243-7) [facility] Healthbasophils as percent of blood [id number] 13:13:00 Test Item Value Reference Range Interpretation Comments basophils as percent of blood 0 % leukocytes (test code = 707-0) [facility] Healtheosinophils as percent of blood lenhtzmkev7960-59-85 13:13:00 Test Item Value Reference Range Interpretation Comments eosinophils as percent of blood 2 % leukocytes (test code = 713-8) [facility] Healthmonocytes as percent of blood gbzgozslgu1103-04-47 13:13:00 Test Item Value Reference Range Interpretation Comments monocytes as percent of blood 11 % leukocytes (test code = 5905-5) [facility] Springslymphocytes as percent of blood bsweyzrztk4659-99-99 13:13:00 Test Item Value Reference Range Interpretation Comments lymphocytes as percent of blood 17 % leukocytes (test code = 736-9) [facility] Springsneutrophils as percent of blood qnjsvzodxd4760-33-82 13:13:00 Test Item Value Reference Range Interpretation Comments neutrophils as percent of blood 70 % leukocytes (test code = 770-8) [facility] Springsplatelet [id number] 13:13:00 Test Item Value Reference Range Interpretation Comments platelet count (test code = 159 X10E3/UL 150-379 777-3) [facility] Springsred blood cell distribution [id number] 13:13:00 Test Item Value Reference Range Interpretation Comments red blood cell distribution width 12.4 % 12.3-15.4 (test code = 788-0) [facility] concentration, [id number] 13:13:00 Test Item Value Reference Range Interpretation Comments mean corpuscular hemoglobin 35.4 G/DL 31.5-35.7 concentration, RBC (test code = 786-4) [facility] corpuscular hemoglobin, [id number] 13:13:00 Test Item Value Reference Range Interpretation Comments mean corpuscular hemoglobin, RBC 35.0 pg 26.6-33.0 H (test code = 785-6) [facility], [id number] 13:13:00 Test Item Value Reference Range Interpretation Comments mean corpuscular volume, RBC (test code 99 fL 79-97 H = 787-2) [facility] Springshematocrit, [id number] 13:13:00 Test Item Value Reference Range Interpretation Comments hematocrit, blood (test code = 4544-3) 40.4 % 34.0-46.6 [facility] Springshemoglobin, [id number] 13:13:00 Test Item Value Reference Range Interpretation Comments hemoglobin, blood (test code = 14.3 g/dL 11.1-15.9 718-7) [facility] Springserythrocyte (RBC) [id number] 13:13:00 Test Item Value Reference Range Interpretation Comments erythrocyte (RBC) count (test 4.09 X10E6/UL 3.77-5.28 code = 789-8) [facility] Springsleukocyte count, [id number] 13:13:00 Test Item Value Reference Range Interpretation Comments leukocyte count, blood (test 5.1 X10E3/UL 3.4-10.8 code = 6690-2) [facility] SpringsCD4/CD8 [id number] 13:13:00 Test Item Value Reference Range Interpretation Comments CD4/CD8 ratio (test code = 93405) 0.51 0.92-3.72 L [facility] SpringsT-suppressor cells (CD8) as percent of blood lymphocytes 2017-05-25 13:13:00 Test Item Value Reference Range Interpretation Comments T-suppressor cells (CD8) as percent of 30.7 % 12.0-35.5 blood lymphocytes (test code = 3517) [facility] Springsabsolute [id number] 13:13:00 Test Item Value Reference Range Interpretation Comments absolute CD8 (test code = 80559) 276 109-897 [facility] SpringsT-helper cells (CD4) as percent of blood lymphocytes 2017-05-25 13:13:00 Test Item Value Reference Range Interpretation Comments T-helper cells (CD4) as percent of 15.7 % 30.8-58.5 L blood lymphocytes (test code = 8123-2) [facility] SpringsT-helper cells (CD4) [id number] 13:13:00 Test Item Value Reference Range Interpretation Comments T-helper cells (CD4) count (test code 141 /UL 359-1519 L = 46913-6) [facility] Springsrapid plasma reagin antibody, [id number] 09:12:00 Test Item Value Reference Range Interpretation Comments rapid plasma reagin antibody, Non Reactive Non Reactive serum (test code = 5291-0) [facility] SpringsHIV-1RNA, serum, by PCR, [id number] 09:12:00 Test Item Value Reference Range Interpretation Comments HIV-1RNA, serum, by PCR, <20 copies/mL quantitative (test code = 15918) [facility] Springsalanine aminotransferase (SGPT), [id number] 09:12:00 Test Item Value Reference Range Interpretation Comments alanine aminotransferase (SGPT), serum 12 1/L 0-32 (test code = 1742-6) [facility] Springsaspartate aminotransferase (SGOT), [id number] 09:12:00 Test Item Value Reference Range Interpretation Comments aspartate aminotransferase (SGOT), 12 1/L 0-40 serum (test code = 1920-8) [facility] Healthalkaline phosphatase, [id number] 09:12:00 Test Item Value Reference Range Interpretation Comments alkaline phosphatase, serum (test 146 1/L 39-117 H code = 1783-0) [facility] Healthbilirubin, serum, [id number] 09:12:00 Test Item Value Reference Range Interpretation Comments bilirubin, serum, total (test code 0.3 mg/dL 0.0-1.2 = 1975-2) [facility] Healthalbumin/globulin ratio, [id number] 09:12:00 Test Item Value Reference Range Interpretation Comments albumin/globulin ratio, serum (test 1.6 1.2-2.2 code = 1759-0) [facility] Healthglobulin, [id number] 09:12:00 Test Item Value Reference Range Interpretation Comments globulin, serum (test code = 2336-6) 2.5 1.5-4.5 [facility] Healthalbumin, [id number] 09:12:00 Test Item Value Reference Range Interpretation Comments albumin, serum (test code = 1751-7) 3.9 g/dL 3.5-5.5 [facility] Healthprotein, total, [id number] 09:12:00 Test Item Value Reference Range Interpretation Comments protein, total, serum (test code = 6.4 g/dL 6.0-8.5 2885-2) [facility]calcium, [id number] 09:12:00 Test Item Value Reference Range Interpretation Comments calcium, serum (test code = 1999-8) 9.0 mg/dL 8.7-10.2 [facility] Springscarbon dioxide, venous [id number] 09:12:00 Test Item Value Reference Range Interpretation Comments carbon dioxide, venous blood (test 24 mmol/L 18-29 code = 7-1) [facility] Springschloride, [id number] 09:12:00 Test Item Value Reference Range Interpretation Comments chloride, serum (test code = 95 mmol/L 96-106 L 5-0) [facility] Springspotassium, [id number] 09:12:00 Test Item Value Reference Range Interpretation Comments potassium, serum (test code = 4.5 mmol/L 3.5-5.2 2823-3) [facility] Springssodium, [id number] 09:12:00 Test Item Value Reference Range Interpretation Comments sodium, serum (test code = 2951-2) 135 mmol/L 134-144 [facility] Springsurea nitrogen/creatinine ratio, [id number] 09:12:00 Test Item Value Reference Range Interpretation Comments urea nitrogen/creatinine ratio, serum 10 9-23 (test code = 3097-3) [facility] SpringseGFR if Zzthjgas0034-07-39 09:12:00 Test Item Value Reference Range Interpretation Comments eGFR if 106 >59 (test code = 01764-3) mL/min/((173/100).m2) [facility] SpringsEstimated Glomerular Filtration Rate (calc)2017-03-01 09:12:00 Test Item Value Reference Range Interpretation Comments Estimated Glomerular 92 >59 Filtration Rate (calc) mL/min/((173/100).m2 (test code = 70631-4) ) [facility] Springscreatinine, [id number] 09:12:00 Test Item Value Reference Range Interpretation Comments creatinine, serum (test code = 0.73 mg/dL 0.57-1.00 2160-0) [facility] Springsurea nitrogen, [id number] 09:12:00 Test Item Value Reference Range Interpretation Comments urea nitrogen, blood (test code = 7 mg/dL 6-24 3094-0) [facility] Springsblood glucose, [id number] 09:12:00 Test Item Value Reference Range Interpretation Comments blood glucose, random (test code = 130 mg/dL 65-99 H 2339-0) [facility] Springsimmature granulocytes, percentage of total cells, blood 2017-03-01 09:12:00 Test Item Value Reference Range Interpretation Comments immature granulocytes, percentage of 0 % total cells, blood (test code = 38060-8) [facility] Springsbasophil count, [id number] 09:12:00 Test Item Value Reference Range Interpretation Comments basophil count, absolute (test 0.0 x10E3/uL 0.0-0.2 code = 05490-2) [facility] HealthEosinophil Absolute [id number] 09:12:00 Test Item Value Reference Range Interpretation Comments Eosinophil Absolute Count (test 0.1 X10E3/UL 0.0-0.4 code = 14851-0) [facility] Healthmonocyte count, blood, tnrrkksnb6854-92-58 09:12:00 Test Item Value Reference Range Interpretation Comments monocyte count, blood, automated 0.4 X10E3/UL 0.1-0.9 (test code = 742-7) [facility] Healthlymphocyte count, blood, qlcdwotud1440-53-17 09:12:00 Test Item Value Reference Range Interpretation Comments lymphocyte count, blood, 1.1 X10E3/UL 0.7-3.1 automated (test code = 731-0) [facility] HealthAbsolute Gkbmipybgux1759-99-69 09:12:00 Test Item Value Reference Range Interpretation Comments Absolute Neutrophils (test code 3.7 X10E3/UL 1.4-7.0 = 33875-6) [facility] Healthbasophils as percent of blood suaouselmr5417-24-63 09:12:00 Test Item Value Reference Range Interpretation Comments basophils as percent of blood 0 % leukocytes (test code = 707-0) [facility] Healtheosinophils as percent of blood xuvaocqlep2769-83-18 09:12:00 Test Item Value Reference Range Interpretation Comments eosinophils as percent of blood 3 % leukocytes (test code = 713-8) [facility] Healthmonocytes as percent of blood yyvsvatdkm6584-14-33 09:12:00 Test Item Value Reference Range Interpretation Comments monocytes as percent of blood 7 % leukocytes (test code = 5905-5) [facility] Healthlymphocytes as percent of blood [id number] 09:12:00 Test Item Value Reference Range Interpretation Comments lymphocytes as percent of blood 21 % leukocytes (test code = 736-9) [facility] Healthneutrophils as percent of blood xqkoaawbrq6100-48-30 09:12:00 Test Item Value Reference Range Interpretation Comments neutrophils as percent of blood 69 % leukocytes (test code = 770-8) [facility] Springsplatelet kmkvu4493-70-05 09:12:00 Test Item Value Reference Range Interpretation Comments platelet count (test code = 233 X10E3/UL 150-379 777-3) [facility]red blood cell distribution [id number] 09:12:00 Test Item Value Reference Range Interpretation Comments red blood cell distribution width 13.1 % 12.3-15.4 (test code = 788-0) [facility] corpuscular hemoglobin concentration, [id number] 09:12:00 Test Item Value Reference Range Interpretation Comments mean corpuscular hemoglobin 34.4 G/DL 31.5-35.7 concentration, RBC (test code = 786-4) [facility] corpuscular hemoglobin, [id number] 09:12:00 Test Item Value Reference Range Interpretation Comments mean corpuscular hemoglobin, RBC 35.0 pg 26.6-33.0 H (test code = 785-6) [facility] corpuscular volume, [id number] 09:12:00 Test Item Value Reference Range Interpretation Comments mean corpuscular volume, RBC (test 102 fL 79-97 H code = 787-2) [facility]hematocrit, [id number] 09:12:00 Test Item Value Reference Range Interpretation Comments hematocrit, blood (test code = 4544-3) 42.2 % 34.0-46.6 [facility] Springshemoglobin, [id number] 09:12:00 Test Item Value Reference Range Interpretation Comments hemoglobin, blood (test code = 14.5 g/dL 11.1-15.9 718-7) [facility] Springserythrocyte (RBC) [id number] 09:12:00 Test Item Value Reference Range Interpretation Comments erythrocyte (RBC) count (test 4.14 X10E6/UL 3.77-5.28 code = 789-8) [facility] Springsleukocyte count, [id number] 09:12:00 Test Item Value Reference Range Interpretation Comments leukocyte count, blood (test 5.3 X10E3/UL 3.4-10.8 code = 6690-2) [facility] SpringsCD4/CD8 [id number] 09:12:00 Test Item Value Reference Range Interpretation Comments CD4/CD8 ratio (test code = 15032) 0.68 0.92-3.72 L [facility] SpringsT-suppressor cells (CD8) as percent of blood lymphocytes 2017-03-01 09:12:00 Test Item Value Reference Range Interpretation Comments T-suppressor cells (CD8) as percent of 27.9 % 12.0-35.5 blood lymphocytes (test code = 3517) [facility] Springsabsolute [id number] 09:12:00 Test Item Value Reference Range Interpretation Comments absolute CD8 (test code = 34524) 307 109-897 [facility] SpringsT-helper cells (CD4) as percent of blood lymphocytes 2017-03-01 09:12:00 Test Item Value Reference Range Interpretation Comments T-helper cells (CD4) as percent of 19.0 % 30.8-58.5 L blood lymphocytes (test code = 8123-2) [facility] SpringsT-helper cells (CD4) [id number] 09:12:00 Test Item Value Reference Range Interpretation Comments T-helper cells (CD4) count (test code 209 /UL 359-1519 L = 21821-0) [facility] SpringsNeisseria gonorrhoeae DNA [id number] 11:00:00 Test Item Value Reference Range Interpretation Comments Neisseria gonorrhoeae DNA probe Negative Negative (test code = 18328-1) [facility] Springschlamydia DNA [id number] 11:00:00 Test Item Value Reference Range Interpretation Comments chlamydia DNA probe (test code = Negative Negative 20058-3) [facility] SpringsQuantiferon Gold TB blood test for tuberculosis screening 2016-10-19 08:07:00 Test Item Value Reference Range Interpretation Comments Quantiferon Gold TB blood test for Negative Negative tuberculosis screening (test code = 98846-8) [facility] Springsrapid plasma reagin antibody, [id number] 08:07:00 Test Item Value Reference Range Interpretation Comments rapid plasma reagin antibody, Non Reactive Non Reactive serum (test code = 5291-0) [facility] SpringsHIV-1RNA, serum, by PCR, hucnqponcwix1094-14-30 08:07:00 Test Item Value Reference Range Interpretation Comments HIV-1RNA, serum, by PCR, <20 copies/mL quantitative (test code = 49941) [facility] SpringsLDL cholesterol, [id number] 08:07:00 Test Item Value Reference Range Interpretation Comments LDL cholesterol, serum (test code = 53 mg/dL 0-99 2088-1) [facility] Springsvery low density yugxrbununiu5746-90-45 08:07:00 Test Item Value Reference Range Interpretation Comments very low density lipoproteins (test 26 mg/dL 5-40 code = 2091-7) [facility] SpringsHDL cholesterol, [id number] 08:07:00 Test Item Value Reference Range Interpretation Comments HDL cholesterol, serum (test code = 43 mg/dL >39 2084-9) [facility] Springstriglyceride, serum, igrdzkr6928-27-60 08:07:00 Test Item Value Reference Range Interpretation Comments triglyceride, serum, fasting (test 128 mg/dL 0-149 code = 2571-8) [facility] [facility]cholesterol, [id number] 08:07:00 Test Item Value Reference Range Interpretation Comments cholesterol, serum (test code = 122 mg/dL 173-006 3284-3) [facility] aminotransferase (SGPT), [id number] 08:07:00 Test Item Value Reference Range Interpretation Comments alanine aminotransferase (SGPT), serum 18 1/L 0-32 (test code = 1742-6) [facility] Springsaspartate aminotransferase (SGOT), [id number] 08:07:00 Test Item Value Reference Range Interpretation Comments aspartate aminotransferase (SGOT), 13 1/L 0-40 serum (test code = 1920-8) [facility] Springsalkaline phosphatase, [id number] 08:07:00 Test Item Value Reference Range Interpretation Comments alkaline phosphatase, serum (test 156 1/L 39-117 H code = 1783-0) [facility]bilirubin, serum, [id number] 08:07:00 Test Item Value Reference Range Interpretation Comments bilirubin, serum, total (test code 0.4 mg/dL 0.0-1.2 = 1974-2) [facility]albumin/globulin ratio, [id number] 08:07:00 Test Item Value Reference Range Interpretation Comments albumin/globulin ratio, serum (test 1.8 1.1-2.5 code = 1759-0) [facility] Springsglobulin, [id number] 08:07:00 Test Item Value Reference Range Interpretation Comments globulin, serum (test code = 2336-6) 2.4 1.5-4.5 [facility] Healthalbumin, [id number] 08:07:00 Test Item Value Reference Range Interpretation Comments albumin, serum (test code = 1751-7) 4.3 g/dL 3.5-5.5 [facility] Healthprotein, total, [id number] 08:07:00 Test Item Value Reference Range Interpretation Comments protein, total, serum (test code = 6.7 g/dL 6.0-8.5 2885-2) [facility]calcium, [id number] 08:07:00 Test Item Value Reference Range Interpretation Comments calcium, serum (test code = 2000-8) 9.4 mg/dL 8.7-10.2 [facility]carbon dioxide, venous [id number] 08:07:00 Test Item Value Reference Range Interpretation Comments carbon dioxide, venous blood (test 28 mmol/L 18-29 code = 7-1) [facility] Healthchloride, [id number] 08:07:00 Test Item Value Reference Range Interpretation Comments chloride, serum (test code = 93 mmol/L 97-106 L 5-0) [facility]potassium, [id number] 08:07:00 Test Item Value Reference Range Interpretation Comments potassium, serum (test code = 4.5 mmol/L 3.5-5.2 2823-3) [facility]sodium, [id number] 08:07:00 Test Item Value Reference Range Interpretation Comments sodium, serum (test code = 2951-2) 136 mmol/L 136-144 [facility] Springsurea nitrogen/creatinine ratio, [id number] 08:07:00 Test Item Value Reference Range Interpretation Comments urea nitrogen/creatinine ratio, serum 10 9-23 (test code = 3097-3) [facility] HealtheGFR if Fubihjat2621-24-97 08:07:00 Test Item Value Reference Range Interpretation Comments eGFR if 100 >59 (test code = 40072-6) mL/min/((173/100).m2) [facility] SpringsEstimated Glomerular Filtration Rate (calc)2016-10-19 08:07:00 Test Item Value Reference Range Interpretation Comments Estimated Glomerular 87 >59 Filtration Rate (calc) mL/min/((173/100).m2 (test code = 69041-0) ) [facility] Healthcreatinine, [id number] 08:07:00 Test Item Value Reference Range Interpretation Comments creatinine, serum (test code = 0.77 mg/dL 0.57-1.00 2160-0) [facility] Springsurea nitrogen, [id number] 08:07:00 Test Item Value Reference Range Interpretation Comments urea nitrogen, blood (test code = 8 mg/dL 6-24 3094-0) [facility]blood glucose, [id number] 08:07:00 Test Item Value Reference Range Interpretation Comments blood glucose, random (test code = 152 mg/dL 65-99 H 2339-0) [facility] Springsimmature granulocytes, percentage of total cells, blood 2016-10-19 08:07:00 Test Item Value Reference Range Interpretation Comments immature granulocytes, percentage of 0 % total cells, blood (test code = 49455-9) [facility]basophil count, ldkyuvvg8678-88-51 08:07:00 Test Item Value Reference Range Interpretation Comments basophil count, absolute (test 0.0 x10E3/uL 0.0-0.2 code = 00057-3) [facility] SpringsEosinophil Absolute [id number] 08:07:00 Test Item Value Reference Range Interpretation Comments Eosinophil Absolute Count (test 0.2 X10E3/UL 0.0-0.4 code = 44265-8) [facility] Springsmonocyte count, blood, rkvjjjopw0227-94-37 08:07:00 Test Item Value Reference Range Interpretation Comments monocyte count, blood, automated 0.5 X10E3/UL 0.1-0.9 (test code = 742-7) [facility] Springslymphocyte count, blood, evenxmsbd5410-03-66 08:07:00 Test Item Value Reference Range Interpretation Comments lymphocyte count, blood, 1.7 X10E3/UL 0.7-3.1 automated (test code = 731-0) [facility] SpringsAbsolute Rxctcrqsqvx5626-15-75 08:07:00 Test Item Value Reference Range Interpretation Comments Absolute Neutrophils (test code 5.2 X10E3/UL 1.4-7.0 = 07728-0) [facility] Springsbasophils as percent of blood lgmymzimao8778-37-61 08:07:00 Test Item Value Reference Range Interpretation Comments basophils as percent of blood 0 % leukocytes (test code = 707-0) [facility] Springseosinophils as percent of blood ghehrbqjkp3061-39-95 08:07:00 Test Item Value Reference Range Interpretation Comments eosinophils as percent of blood 3 % leukocytes (test code = 713-8) [facility] Healthmonocytes as percent of blood obyafwzekz7605-96-38 08:07:00 Test Item Value Reference Range Interpretation Comments monocytes as percent of blood 6 % leukocytes (test code = 5905-5) [facility]lymphocytes as percent of blood mdcqfnpfcj8665-93-25 08:07:00 Test Item Value Reference Range Interpretation Comments lymphocytes as percent of blood 22 % leukocytes (test code = 736-9) [facility] Springsneutrophils as percent of blood hiqdfktzmq2677-70-67 08:07:00 Test Item Value Reference Range Interpretation Comments neutrophils as percent of blood 69 % leukocytes (test code = 770-8) [facility] Springsplatelet nwmpe9578-37-33 08:07:00 Test Item Value Reference Range Interpretation Comments platelet count (test code = 257 X10E3/UL 150-379 777-3) [facility]red blood cell distribution gldnr7498-69-21 08:07:00 Test Item Value Reference Range Interpretation Comments red blood cell distribution width 12.9 % 12.3-15.4 (test code = 788-0) [facility] corpuscular hemoglobin concentration, [id number] 08:07:00 Test Item Value Reference Range Interpretation Comments mean corpuscular hemoglobin 34.3 G/DL 31.5-35.7 concentration, RBC (test code = 786-4) [facility] corpuscular hemoglobin, [id number] 08:07:00 Test Item Value Reference Range Interpretation Comments mean corpuscular hemoglobin, RBC 34.5 pg 26.6-33.0 H (test code = 785-6) [facility] corpuscular volume, [id number] 08:07:00 Test Item Value Reference Range Interpretation Comments mean corpuscular volume, RBC (test 101 fL 79-97 H code = 787-2) [facility]hematocrit, [id number] 08:07:00 Test Item Value Reference Range Interpretation Comments hematocrit, blood (test code = 4544-3) 44.6 % 34.0-46.6 [facility]hemoglobin, [id number] 08:07:00 Test Item Value Reference Range Interpretation Comments hemoglobin, blood (test code = 15.3 g/dL 11.1-15.9 718-7) [facility] Springserythrocyte (RBC) woeha2004-92-02 08:07:00 Test Item Value Reference Range Interpretation Comments erythrocyte (RBC) count (test 4.43 X10E6/UL 3.77-5.28 code = 789-8) [facility] Springsleukocyte count, [id number] 08:07:00 Test Item Value Reference Range Interpretation Comments leukocyte count, blood (test 7.7 X10E3/UL 3.4-10.8 code = 6690-2) [facility] SpringsCD4/CD8 [id number] 08:07:00 Test Item Value Reference Range Interpretation Comments CD4/CD8 ratio (test code = 07813) 0.84 0.92-3.72 L [facility] SpringsT-suppressor cells (CD8) as percent of blood lymphocytes 2016-10-19 08:07:00 Test Item Value Reference Range Interpretation Comments T-suppressor cells (CD8) as percent of 26.3 % 12.0-35.5 blood lymphocytes (test code = 3517) [facility]absolute [id number] 08:07:00 Test Item Value Reference Range Interpretation Comments absolute CD8 (test code = 93135) 447 109-897 [facility] SpringsT-helper cells (CD4) as percent of blood lymphocytes 2016-10-19 08:07:00 Test Item Value Reference Range Interpretation Comments T-helper cells (CD4) as percent of 22.0 % 30.8-58.5 L blood lymphocytes (test code = 8123-2) [facility] SpringsT-helper cells (CD4) ozakv9006-59-97 08:07:00 Test Item Value Reference Range Interpretation Comments T-helper cells (CD4) count (test code 374 /UL 359-1519 = 66850-3) [facility] Springshepatitis B surface tsmtcnr5430-17-62 09:14:00 Test Item Value Reference Range Interpretation Comments hepatitis B surface antigen (test Negative Negative code = 79) [facility] [id number] 09:14:00 Test Item Value Reference Range Interpretation Comments hepatitis C antibody, serum (test code 0.2 0.0-0.9 = 5199-5) [facility] Springsvitamin D 25-hydroxy, [id number] 09:14:00 Test Item Value Reference Range Interpretation Comments vitamin D 25-hydroxy, serum (test 27.6 ng/mL 30.0-100.0 L code = 35649-9) [facility] Springsrapid plasma reagin antibody, [id number] 09:14:00 Test Item Value Reference Range Interpretation Comments rapid plasma reagin antibody, Non Reactive Non Reactive serum (test code = 5291-0) [facility] SpringsHIV-1RNA, serum, by PCR, emvmftlgvsuj4990-79-96 09:14:00 Test Item Value Reference Range Interpretation Comments HIV-1RNA, serum, by PCR, quantitative 30 /mL (test code = 60507) [facility] SpringsLDL cholesterol, [id number] 09:14:00 Test Item Value Reference Range Interpretation Comments LDL cholesterol, serum (test code = 82 mg/dL 0-99 9-1) [facility] Springsvery low density xbtydwcxjsal2529-55-00 09:14:00 Test Item Value Reference Range Interpretation Comments very low density lipoproteins (test 40 mg/dL 5-40 code = 2091-7) [facility] SpringsHDL cholesterol, [id number] 09:14:00 Test Item Value Reference Range Interpretation Comments HDL cholesterol, serum (test code = 42 mg/dL >39 5-9) [facility] Springstriglyceride, serum, [id number] 09:14:00 Test Item Value Reference Range Interpretation Comments triglyceride, serum, fasting (test 199 mg/dL 0-149 H code = 2571-8) [facility]cholesterol, [id number] 09:14:00 Test Item Value Reference Range Interpretation Comments cholesterol, serum (test code = 164 mg/dL 728-907 0506-3) [facility]alanine aminotransferase (SGPT), eynij5343-38-38 09:14:00 Test Item Value Reference Range Interpretation Comments alanine aminotransferase (SGPT), serum 12 1/L 0-32 (test code = 1742-6) [facility] Springsaspartate aminotransferase (SGOT), [id number] 09:14:00 Test Item Value Reference Range Interpretation Comments aspartate aminotransferase (SGOT), 14 1/L 0-40 serum (test code = 1920-8) [facility] Springsalkaline phosphatase, xaqyb7928-16-00 09:14:00 Test Item Value Reference Range Interpretation Comments alkaline phosphatase, serum (test 169 1/L 39-117 H code = 1783-0) [facility]bilirubin, serum, [id number] 09:14:00 Test Item Value Reference Range Interpretation Comments bilirubin, serum, total (test code 0.4 mg/dL 0.0-1.2 = 1975-2) [facility]albumin/globulin ratio, [id number] 09:14:00 Test Item Value Reference Range Interpretation Comments albumin/globulin ratio, serum (test 1.8 1.1-2.5 code = 1759-0) [facility] Healthglobulin, [id number] 09:14:00 Test Item Value Reference Range Interpretation Comments globulin, serum (test code = 2336-6) 2.4 1.5-4.5 [facility] Healthalbumin, [id number] 09:14:00 Test Item Value Reference Range Interpretation Comments albumin, serum (test code = 1751-7) 4.3 g/dL 3.5-5.5 [facility]protein, total, [id number] 09:14:00 Test Item Value Reference Range Interpretation Comments protein, total, serum (test code = 6.7 g/dL 6.0-8.5 2885-2) [facility]calcium, [id number] 09:14:00 Test Item Value Reference Range Interpretation Comments calcium, serum (test code = 1999-8) 9.4 mg/dL 8.7-10.2 [facility] Springscarbon dioxide, venous iswvi1533-04-09 09:14:00 Test Item Value Reference Range Interpretation Comments carbon dioxide, venous blood (test 24 mmol/L 18-29 code = 2027-1) [facility] Healthchloride, [id number] 09:14:00 Test Item Value Reference Range Interpretation Comments chloride, serum (test code = 96 mmol/L 97-108 L 2075-0) [facility] Healthpotassium, [id number] 09:14:00 Test Item Value Reference Range Interpretation Comments potassium, serum (test code = 4.4 mmol/L 3.5-5.2 2823-3) [facility] Healthsodium, [id number] 09:14:00 Test Item Value Reference Range Interpretation Comments sodium, serum (test code = 2951-2) 137 mmol/L 134-144 [facility]urea nitrogen/creatinine ratio, epmsb5028-49-15 09:14:00 Test Item Value Reference Range Interpretation Comments urea nitrogen/creatinine ratio, serum 13 9-23 (test code = 3097-3) [facility] HealtheGFR if Qgjvrmtp9538-84-83 09:14:00 Test Item Value Reference Range Interpretation Comments eGFR if 117 >59 (test code = 58144-7) mL/min/((173/100).m2) [facility] SpringsEstimated Glomerular Filtration Rate (calc)2016-07-01 09:14:00 Test Item Value Reference Range Interpretation Comments Estimated Glomerular 102 >59 Filtration Rate (calc) mL/min/((173/100).m2 (test code = 56997-0) ) [facility] Springscreatinine, [id number] 09:14:00 Test Item Value Reference Range Interpretation Comments creatinine, serum (test code = 0.61 mg/dL 0.57-1.00 2160-0) [facility] Springsurea nitrogen, [id number] 09:14:00 Test Item Value Reference Range Interpretation Comments urea nitrogen, blood (test code = 8 mg/dL 6-24 3094-0) [facility]blood glucose, [id number] 09:14:00 Test Item Value Reference Range Interpretation Comments blood glucose, random (test code = 106 mg/dL 65-99 H 2339-0) [facility] Springsimmature granulocytes, percentage of total cells, blood 2016-07-01 09:14:00 Test Item Value Reference Range Interpretation Comments immature granulocytes, percentage of 0 % total cells, blood (test code = 08490-6) [facility] Springsbasophil count, [id number] 09:14:00 Test Item Value Reference Range Interpretation Comments basophil count, absolute (test 0.0 x10E3/uL 0.0-0.2 code = 31347-5) [facility] HealthEosinophil Absolute [id number] 09:14:00 Test Item Value Reference Range Interpretation Comments Eosinophil Absolute Count (test 0.3 X10E3/UL 0.0-0.4 code = 84654-6) [facility] Healthmonocyte count, blood, gyxfewmck7864-67-15 09:14:00 Test Item Value Reference Range Interpretation Comments monocyte count, blood, automated 0.4 X10E3/UL 0.1-0.9 (test code = 742-7) [facility]lymphocyte count, blood, xefzhkoed2834-78-47 09:14:00 Test Item Value Reference Range Interpretation Comments lymphocyte count, blood, 1.5 X10E3/UL 0.7-3.1 automated (test code = 731-0) [facility] SpringsAbsolute Dhpfbtppqil7192-40-30 09:14:00 Test Item Value Reference Range Interpretation Comments Absolute Neutrophils (test code 3.6 X10E3/UL 1.4-7.0 = 27792-6) [facility] Springsbasophils as percent of blood fhhsoovzja3145-72-13 09:14:00 Test Item Value Reference Range Interpretation Comments basophils as percent of blood 0 % leukocytes (test code = 707-0) [facility] Healtheosinophils as percent of blood jirgqfhrnw1081-02-06 09:14:00 Test Item Value Reference Range Interpretation Comments eosinophils as percent of blood 5 % leukocytes (test code = 713-8) [facility] Healthmonocytes as percent of blood piptomrxte6800-87-34 09:14:00 Test Item Value Reference Range Interpretation Comments monocytes as percent of blood 7 % leukocytes (test code = 5905-5) [facility]lymphocytes as percent of blood lmndbidvsg6983-65-60 09:14:00 Test Item Value Reference Range Interpretation Comments lymphocytes as percent of blood 25 % leukocytes (test code = 736-9) [facility] Springsneutrophils as percent of blood wnqejybltp9307-82-85 09:14:00 Test Item Value Reference Range Interpretation Comments neutrophils as percent of blood 63 % leukocytes (test code = 770-8) [facility] Springsplatelet qnthe1309-92-48 09:14:00 Test Item Value Reference Range Interpretation Comments platelet count (test code = 210 X10E3/UL 150-379 777-3) [facility] Springsred blood cell distribution hvpbh6870-52-48 09:14:00 Test Item Value Reference Range Interpretation Comments red blood cell distribution width 13.2 % 12.3-15.4 (test code = 788-0) [facility] corpuscular hemoglobin concentration, [id number] 09:14:00 Test Item Value Reference Range Interpretation Comments mean corpuscular hemoglobin 35.0 G/DL 31.5-35.7 concentration, RBC (test code = 786-4) [facility] corpuscular hemoglobin, [id number] 09:14:00 Test Item Value Reference Range Interpretation Comments mean corpuscular hemoglobin, RBC 35.2 pg 26.6-33.0 H (test code = 785-6) [facility] corpuscular volume, [id number] 09:14:00 Test Item Value Reference Range Interpretation Comments mean corpuscular volume, RBC (test 101 fL 79-97 H code = 787-2) [facility]hematocrit, [id number] 09:14:00 Test Item Value Reference Range Interpretation Comments hematocrit, blood (test code = 4544-3) 40.8 % 34.0-46.6 [facility] Springshemoglobin, [id number] 09:14:00 Test Item Value Reference Range Interpretation Comments hemoglobin, blood (test code = 14.3 g/dL 11.1-15.9 718-7) [facility] Springserythrocyte (RBC) kzmfq0694-35-18 09:14:00 Test Item Value Reference Range Interpretation Comments erythrocyte (RBC) count (test 4.06 X10E6/UL 3.77-5.28 code = 789-8) [facility], nktut1655-23-56 09:14:00 Test Item Value Reference Range Interpretation Comments leukocyte count, blood (test 5.8 X10E3/UL 3.4-10.8 code = 6690-2) [facility] SpringsCD4/CD8 weneg3473-54-48 09:14:00 Test Item Value Reference Range Interpretation Comments CD4/CD8 ratio (test code = 95540) 0.68 0.92-3.72 L [facility] SpringsT-suppressor cells (CD8) as percent of blood lymphocytes 2016-07-01 09:14:00 Test Item Value Reference Range Interpretation Comments T-suppressor cells (CD8) as percent of 28.2 % 12.0-35.5 blood lymphocytes (test code = 3517) [facility] Springsabsolute [id number] 09:14:00 Test Item Value Reference Range Interpretation Comments absolute CD8 (test code = 94664) 423 109-897 [facility] SpringsT-helper cells (CD4) as percent of blood lymphocytes 2016-07-01 09:14:00 Test Item Value Reference Range Interpretation Comments T-helper cells (CD4) as percent of 19.2 % 30.8-58.5 L blood lymphocytes (test code = 8123-2) [facility] SpringsT-helper cells (CD4) icwko2234-84-24 09:14:00 Test Item Value Reference Range Interpretation Comments T-helper cells (CD4) count (test code 288 /UL 359-1519 L = 99454-5) [facility] Springsrapid plasma reagin antibody, ihfcn7015-76-37 09:42:00 Test Item Value Reference Range Interpretation Comments rapid plasma reagin antibody, Non Reactive Non Reactive serum (test code = 5291-0) [facility] SpringsHIV-1RNA, serum, by PCR, gimoybunlhsj0484-29-19 09:42:00 Test Item Value Reference Range Interpretation Comments HIV-1RNA, serum, by PCR, <20 copies/mL quantitative (test code = 55135) [facility] SpringsLDL cholesterol, [id number] 09:42:00 Test Item Value Reference Range Interpretation Comments LDL cholesterol, serum (test code = 58 mg/dL 0-99 9-1) [facility] ctshxnxlpzah6578-03-16 09:42:00 Test Item Value Reference Range Interpretation Comments very low density lipoproteins (test 32 mg/dL 5-40 code = 2091-7) [facility] SpringsHDL cholesterol, iljxr7585-77-64 09:42:00 Test Item Value Reference Range Interpretation Comments HDL cholesterol, serum (test code = 43 mg/dL >39 5-9) [facility] Springstriglyceride, serum, aklmdmw8215-40-95 09:42:00 Test Item Value Reference Range Interpretation Comments triglyceride, serum, fasting (test 161 mg/dL 0-149 H code = 2571-8) [facility] Springscholesterol, kzpth8685-70-20 09:42:00 Test Item Value Reference Range Interpretation Comments cholesterol, serum (test code = 133 mg/dL 979-956 3802-3) [facility]alanine aminotransferase (SGPT), dwzwz4158-85-49 09:42:00 Test Item Value Reference Range Interpretation Comments alanine aminotransferase (SGPT), serum 15 1/L 0-32 (test code = 1742-6) [facility] Springsaspartate aminotransferase (SGOT), kgdxz4707-80-86 09:42:00 Test Item Value Reference Range Interpretation Comments aspartate aminotransferase (SGOT), 16 1/L 0-40 serum (test code = 1920-8) [facility] Springsalkaline phosphatase, gurfd8751-06-58 09:42:00 Test Item Value Reference Range Interpretation Comments alkaline phosphatase, serum (test 130 1/L 39-117 H code = 1783-0) [facility]bilirubin, serum, wheil4463-36-84 09:42:00 Test Item Value Reference Range Interpretation Comments bilirubin, serum, total (test code 0.3 mg/dL 0.0-1.2 = 1974-) [facility] Springsalbumin/globulin ratio, [id number] 09:42:00 Test Item Value Reference Range Interpretation Comments albumin/globulin ratio, serum (test 1.5 1.1-2.5 code = 1759-0) [facility] Springsglobulin, [id number] 09:42:00 Test Item Value Reference Range Interpretation Comments globulin, serum (test code = 2336-6) 2.7 1.5-4.5 [facility] Springsalbumin, [id number] 09:42:00 Test Item Value Reference Range Interpretation Comments albumin, serum (test code = 1751-7) 4.1 g/dL 3.5-5.5 [facility] Healthprotein, total, [id number] 09:42:00 Test Item Value Reference Range Interpretation Comments protein, total, serum (test code = 6.8 g/dL 6.0-8.5 2885-2) [facility] Springscalcium, gtsvi4339-00-19 09:42:00 Test Item Value Reference Range Interpretation Comments calcium, serum (test code = 1999-8) 9.4 mg/dL 8.7-10.2 [facility] Springscarbon dioxide, venous jlbtd4918-09-89 09:42:00 Test Item Value Reference Range Interpretation Comments carbon dioxide, venous blood (test 29 mmol/L 18-29 code = 2026-1) [facility] Springschloride, [id number] 09:42:00 Test Item Value Reference Range Interpretation Comments chloride, serum (test code = 104 mmol/L 97-108 5-0) [facility] Springspotassium, zbaum4187-75-81 09:42:00 Test Item Value Reference Range Interpretation Comments potassium, serum (test code = 4.4 mmol/L 3.5-5.2 2823-3) [facility] Springssodium, eeany3629-25-87 09:42:00 Test Item Value Reference Range Interpretation Comments sodium, serum (test code = 2951-2) 145 mmol/L 134-144 H [facility] Springsurea nitrogen/creatinine ratio, mgxvg8544-07-84 09:42:00 Test Item Value Reference Range Interpretation Comments urea nitrogen/creatinine ratio, serum 20 9-23 (test code = 3097-3) [facility] HealtheGFR if Qgnflhfo5738-65-54 09:42:00 Test Item Value Reference Range Interpretation Comments eGFR if 117 >59 (test code = 81938-7) mL/min/((173/100).m2) [facility] SpringsEstimated Glomerular Filtration Rate (calc)2016-01-27 09:42:00 Test Item Value Reference Range Interpretation Comments Estimated Glomerular 102 >59 Filtration Rate (calc) mL/min/((173/100).m2 (test code = 95617-1) ) [facility]creatinine, [id number] 09:42:00 Test Item Value Reference Range Interpretation Comments creatinine, serum (test code = 0.61 mg/dL 0.57-1.00 2160-0) [facility] nitrogen, [id number] 09:42:00 Test Item Value Reference Range Interpretation Comments urea nitrogen, blood (test code = 12 mg/dL 6-24 3094-0) [facility]blood glucose, [id number] 09:42:00 Test Item Value Reference Range Interpretation Comments blood glucose, random (test code = 127 mg/dL 65-99 H 2339-0) [facility] Springsimmature granulocytes, percentage of total cells, blood 2016-01-27 09:42:00 Test Item Value Reference Range Interpretation Comments immature granulocytes, percentage of 0 % total cells, blood (test code = 07980-7) [facility] Springsbasophil count, [id number] 09:42:00 Test Item Value Reference Range Interpretation Comments basophil count, absolute (test 0.0 x10E3/uL 0.0-0.2 code = 97608-4) [facility] SpringsEosinophil Absolute [id number] 09:42:00 Test Item Value Reference Range Interpretation Comments Eosinophil Absolute Count (test 0.3 X10E3/UL 0.0-0.4 code = 03975-8) [facility] Springsmonocyte count, blood, fhaotdzse7927-53-71 09:42:00 Test Item Value Reference Range Interpretation Comments monocyte count, blood, automated 0.4 X10E3/UL 0.1-0.9 (test code = 742-7) [facility] Springslymphocyte count, blood, [id number] 09:42:00 Test Item Value Reference Range Interpretation Comments lymphocyte count, blood, 1.4 X10E3/UL 0.7-3.1 automated (test code = 731-0) [facility] SpringsAbsolute Xzhsdliuzon2566-01-72 09:42:00 Test Item Value Reference Range Interpretation Comments Absolute Neutrophils (test code 3.2 X10E3/UL 1.4-7.0 = 24332-7) [facility] Springsbasophils as percent of blood huhkxffjiw3705-49-72 09:42:00 Test Item Value Reference Range Interpretation Comments basophils as percent of blood 0 % leukocytes (test code = 707-0) [facility] Healtheosinophils as percent of blood vapwhhcanj1697-16-56 09:42:00 Test Item Value Reference Range Interpretation Comments eosinophils as percent of blood 5 % leukocytes (test code = 713-8) [facility] Healthmonocytes as percent of blood odojyubske3266-59-58 09:42:00 Test Item Value Reference Range Interpretation Comments monocytes as percent of blood 7 % leukocytes (test code = 5905-5) [facility]lymphocytes as percent of blood axmuvuqatu7660-88-41 09:42:00 Test Item Value Reference Range Interpretation Comments lymphocytes as percent of blood 26 % leukocytes (test code = 736-9) [facility] Springsneutrophils as percent of blood whywccinee8596-75-71 09:42:00 Test Item Value Reference Range Interpretation Comments neutrophils as percent of blood 62 % leukocytes (test code = 770-8) [facility] Springsplatelet kzlha7084-72-08 09:42:00 Test Item Value Reference Range Interpretation Comments platelet count (test code = 197 X10E3/UL 150-379 777-3) [facility] Springsred blood cell distribution [id number] 09:42:00 Test Item Value Reference Range Interpretation Comments red blood cell distribution width 13.6 % 12.3-15.4 (test code = 788-0) [facility] corpuscular hemoglobin concentration, [id number] 09:42:00 Test Item Value Reference Range Interpretation Comments mean corpuscular hemoglobin 34.3 G/DL 31.5-35.7 concentration, RBC (test code = 786-4) [facility] corpuscular hemoglobin, [id number] 09:42:00 Test Item Value Reference Range Interpretation Comments mean corpuscular hemoglobin, RBC 35.1 pg 26.6-33.0 H (test code = 785-6) [facility] corpuscular volume, [id number] 09:42:00 Test Item Value Reference Range Interpretation Comments mean corpuscular volume, RBC (test 102 fL 79-97 H code = 787-2) [facility]hematocrit, [id number] 09:42:00 Test Item Value Reference Range Interpretation Comments hematocrit, blood (test code = 4544-3) 40.2 % 34.0-46.6 [facility] Springshemoglobin, [id number] 09:42:00 Test Item Value Reference Range Interpretation Comments hemoglobin, blood (test code = 13.8 g/dL 11.1-15.9 718-7) [facility] Springserythrocyte (RBC) medzy5367-78-98 09:42:00 Test Item Value Reference Range Interpretation Comments erythrocyte (RBC) count (test 3.93 X10E6/UL 3.77-5.28 code = 789-8) [facility] Springsleukocyte count, [id number] 09:42:00 Test Item Value Reference Range Interpretation Comments leukocyte count, blood (test 5.2 X10E3/UL 3.4-10.8 code = 6690-2) [facility] SpringsCD4/CD8 [id number] 09:42:00 Test Item Value Reference Range Interpretation Comments CD4/CD8 ratio (test code = 73908) 0.67 0.92-3.72 L [facility] SpringsT-suppressor cells (CD8) as percent of blood lymphocytes 2016-01-27 09:42:00 Test Item Value Reference Range Interpretation Comments T-suppressor cells (CD8) as percent of 28.8 % 12.0-35.5 blood lymphocytes (test code = 3517) [facility] Springsabsolute [id number] 09:42:00 Test Item Value Reference Range Interpretation Comments absolute CD8 (test code = 11639) 403 109-897 [facility] SpringsT-helper cells (CD4) as percent of blood lymphocytes 2016-01-27 09:42:00 Test Item Value Reference Range Interpretation Comments T-helper cells (CD4) as percent of 19.2 % 30.8-58.5 L blood lymphocytes (test code = 8123-2) [facility] SpringsT-helper cells (CD4) cbgkb4100-21-04 09:42:00 Test Item Value Reference Range Interpretation Comments T-helper cells (CD4) count (test code 269 /UL 359-1519 L = 63724-8) [facility] Springshuman leukocyte antigen [id number] 10:14:15 Test Item Value Reference Range Interpretation Comments human leukocyte antigen B57 (test negative code = 939317) [facility] SpringsQuantiferon Gold TB blood test for tuberculosis screening 2015-06-17 10:13:00 Test Item Value Reference Range Interpretation Comments Quantiferon Gold TB blood test for Negative Negative tuberculosis screening (test code = 78345-2) [facility] SpringsHIV-1RNA, serum, by PCR, pbygzeblryfz0916-42-80 10:13:00 Test Item Value Reference Range Interpretation Comments HIV-1RNA, serum, by PCR, <20 copies/mL quantitative (test code = 82388) [facility] Springsrapid plasma reagin antibody, [id number] 10:13:00 Test Item Value Reference Range Interpretation Comments rapid plasma reagin antibody, Non Reactive Non Reactive serum (test code = 5291-0) [facility] SpringsLDL cholesterol, [id number] 10:13:00 Test Item Value Reference Range Interpretation Comments LDL cholesterol, serum (test code = 33 mg/dL 0-99 2088-1) [facility] Springsvery low density ihuixjrfbpat8427-44-51 10:13:00 Test Item Value Reference Range Interpretation Comments very low density lipoproteins (test 17 mg/dL 5-40 code = 1-7) [facility] SpringsHDL cholesterol, [id number] 10:13:00 Test Item Value Reference Range Interpretation Comments HDL cholesterol, serum (test code = 38 mg/dL >39 L 2084-9) [facility] Springstriglyceride, serum, koequis7523-28-38 10:13:00 Test Item Value Reference Range Interpretation Comments triglyceride, serum, fasting (test 83 mg/dL 0-149 code = 2571-8) [facility] Springscholesterol, jahtl9214-01-92 10:13:00 Test Item Value Reference Range Interpretation Comments cholesterol, serum (test code = 88 mg/dL 100-199 L 2092-3) [facility] Springsalanine aminotransferase (SGPT), [id number] 10:13:00 Test Item Value Reference Range Interpretation Comments alanine aminotransferase (SGPT), serum 15 1/L 0-32 (test code = 1742-6) [facility] Springsaspartate aminotransferase (SGOT), [id number] 10:13:00 Test Item Value Reference Range Interpretation Comments aspartate aminotransferase (SGOT), 23 1/L 0-40 serum (test code = 1920-8) [facility] Springsalkaline phosphatase, [id number] 10:13:00 Test Item Value Reference Range Interpretation Comments alkaline phosphatase, serum (test 120 1/L 39-117 H code = 1783-0) [facility] Healthbilirubin, serum, zqpqr0733-22-64 10:13:00 Test Item Value Reference Range Interpretation Comments bilirubin, serum, total (test code 0.3 mg/dL 0.0-1.2 = 1975-2) [facility] Healthalbumin/globulin ratio, [id number] 10:13:00 Test Item Value Reference Range Interpretation Comments albumin/globulin ratio, serum (test 1.8 1.1-2.5 code = 1759-0) [facility] Healthglobulin, [id number] 10:13:00 Test Item Value Reference Range Interpretation Comments globulin, serum (test code = 2336-6) 2.2 1.5-4.5 [facility] Healthalbumin, [id number] 10:13:00 Test Item Value Reference Range Interpretation Comments albumin, serum (test code = 1751-7) 3.9 g/dL 3.5-5.5 [facility]protein, total, [id number] 10:13:00 Test Item Value Reference Range Interpretation Comments protein, total, serum (test code = 6.1 g/dL 6.0-8.5 2885-2) [facility] Springscalcium, [id number] 10:13:00 Test Item Value Reference Range Interpretation Comments calcium, serum (test code = 1999-8) 9.4 mg/dL 8.7-10.2 [facility] Springscarbon dioxide, venous [id number] 10:13:00 Test Item Value Reference Range Interpretation Comments carbon dioxide, venous blood (test 26 mmol/L 18-29 code = 2026-1) [facility] Springschloride, [id number] 10:13:00 Test Item Value Reference Range Interpretation Comments chloride, serum (test code = 102 mmol/L 97-108 2074-0) [facility] Springspotassium, [id number] 10:13:00 Test Item Value Reference Range Interpretation Comments potassium, serum (test code = 3.1 mmol/L 3.5-5.2 L 2823-3) [facility] Springssodium, [id number] 10:13:00 Test Item Value Reference Range Interpretation Comments sodium, serum (test code = 2951-2) 144 mmol/L 134-144 [facility] Springsurea nitrogen/creatinine ratio, [id number] 10:13:00 Test Item Value Reference Range Interpretation Comments urea nitrogen/creatinine ratio, serum 11 9-23 (test code = 3097-3) [facility] SpringseGFR if Vlxselxq9398-35-96 10:13:00 Test Item Value Reference Range Interpretation Comments eGFR if 113 >59 (test code = 99641-4) mL/min/((173/100).m2) [facility] SpringsEstimated Glomerular Filtration Rate (calc)2015-06-17 10:13:00 Test Item Value Reference Range Interpretation Comments Estimated Glomerular 98 >59 Filtration Rate (calc) mL/min/((173/100).m2 (test code = 58778-7) ) [facility] Springscreatinine, [id number] 10:13:00 Test Item Value Reference Range Interpretation Comments creatinine, serum (test code = 0.70 mg/dL 0.57-1.00 2160-0) [facility] Springsurea nitrogen, [id number] 10:13:00 Test Item Value Reference Range Interpretation Comments urea nitrogen, blood (test code = 8 mg/dL 6-24 3094-0) [facility] Springsblood glucose, twybtm2575-65-10 10:13:00 Test Item Value Reference Range Interpretation Comments blood glucose, random (test code = 77 mg/dL 65-99 2339-0) [facility] Springsimmature granulocytes, percentage of total cells, blood 2015-06-17 10:13:00 Test Item Value Reference Range Interpretation Comments immature granulocytes, percentage of 0 % total cells, blood (test code = 41533-5) [facility] Springsbasophil count, acvjawka6594-04-26 10:13:00 Test Item Value Reference Range Interpretation Comments basophil count, absolute (test 0.0 x10E3/uL 0.0-0.2 code = 37817-1) [facility] SpringsEosinophil Absolute Egfqb6973-96-04 10:13:00 Test Item Value Reference Range Interpretation Comments Eosinophil Absolute Count (test 0.2 X10E3/UL 0.0-0.4 code = 35310-7) [facility] Healthmonocyte count, blood, fdfpmhqym7591-04-01 10:13:00 Test Item Value Reference Range Interpretation Comments monocyte count, blood, automated 0.3 X10E3/UL 0.1-0.9 (test code = 742-7) [facility] Springslymphocyte count, blood, qtkhtzbog9222-84-60 10:13:00 Test Item Value Reference Range Interpretation Comments lymphocyte count, blood, 1.3 X10E3/UL 0.7-3.1 automated (test code = 731-0) [facility] HealthAbsolute Qvpsjokxemz3943-82-26 10:13:00 Test Item Value Reference Range Interpretation Comments Absolute Neutrophils (test code 3.5 X10E3/UL 1.4-7.0 = 81708-2) [facility] Healthbasophils as percent of blood aidaomwqkn2260-40-84 10:13:00 Test Item Value Reference Range Interpretation Comments basophils as percent of blood 0 % leukocytes (test code = 707-0) [facility] Springseosinophils as percent of blood cmnujswvpd7943-22-85 10:13:00 Test Item Value Reference Range Interpretation Comments eosinophils as percent of blood 4 % leukocytes (test code = 713-8) [facility] Healthmonocytes as percent of blood rvbmbkqcdf8867-45-48 10:13:00 Test Item Value Reference Range Interpretation Comments monocytes as percent of blood 6 % leukocytes (test code = 5905-5) [facility] Springslymphocytes as percent of blood ysfqiunyad7770-76-58 10:13:00 Test Item Value Reference Range Interpretation Comments lymphocytes as percent of blood 24 % leukocytes (test code = 736-9) [facility] Springsneutrophils as percent of blood jqdliaqttl0617-90-59 10:13:00 Test Item Value Reference Range Interpretation Comments neutrophils as percent of blood 66 % leukocytes (test code = 770-8) [facility] Healthplatelet [id number] 10:13:00 Test Item Value Reference Range Interpretation Comments platelet count (test code = 243 X10E3/UL 150-379 777-3) [facility]red blood cell distribution [id number] 10:13:00 Test Item Value Reference Range Interpretation Comments red blood cell distribution width 14.1 % 12.3-15.4 (test code = 788-0) [facility] corpuscular hemoglobin concentration, [id number] 10:13:00 Test Item Value Reference Range Interpretation Comments mean corpuscular hemoglobin 35.6 G/DL 31.5-35.7 concentration, RBC (test code = 786-4) [facility] corpuscular hemoglobin, [id number] 10:13:00 Test Item Value Reference Range Interpretation Comments mean corpuscular hemoglobin, RBC 37.0 pg 26.6-33.0 H (test code = 785-6) [facility] corpuscular volume, [id number] 10:13:00 Test Item Value Reference Range Interpretation Comments mean corpuscular volume, RBC (test 104 fL 79-97 H code = 787-2) [facility]hematocrit, [id number] 10:13:00 Test Item Value Reference Range Interpretation Comments hematocrit, blood (test code = 4544-3) 33.1 % 34.0-46.6 L [facility] Springshemoglobin, [id number] 10:13:00 Test Item Value Reference Range Interpretation Comments hemoglobin, blood (test code = 11.8 g/dL 11.1-15.9 718-7) [facility] Springserythrocyte (RBC) [id number] 10:13:00 Test Item Value Reference Range Interpretation Comments erythrocyte (RBC) count (test 3.19 X10E6/UL 3.77-5.28 L code = 789-8) [facility] Springsleukocyte count, zcnzj3663-17-52 10:13:00 Test Item Value Reference Range Interpretation Comments leukocyte count, blood (test 5.3 X10E3/UL 3.4-10.8 code = 6690-2) [facility] SpringsCD4/CD8 taxwa9227-36-31 10:13:00 Test Item Value Reference Range Interpretation Comments CD4/CD8 ratio (test code = 44393) 0.47 0.92-3.72 L [facility] HealthT-suppressor cells (CD8) as percent of blood lymphocytes 2015-06-17 10:13:00 Test Item Value Reference Range Interpretation Comments T-suppressor cells (CD8) as percent of 27.6 % 12.0-35.5 blood lymphocytes (test code = 3517) [facility] Healthabsolute [id number] 10:13:00 Test Item Value Reference Range Interpretation Comments absolute CD8 (test code = 30030) 359 109-897 [facility] HealthT-helper cells (CD4) as percent of blood lymphocytes 2015-06-17 10:13:00 Test Item Value Reference Range Interpretation Comments T-helper cells (CD4) as percent of 13.0 % 30.8-58.5 L blood lymphocytes (test code = 8123-2) [facility] SpringsT-helper cells (CD4) [id number] 10:13:00 Test Item Value Reference Range Interpretation Comments T-helper cells (CD4) count (test code 169 /UL 359-1519 L = 26599-5) [facility] SpringsT-helper cells (CD4) count, lowest absolute value 2015-03-18 10:06:41 Test Item Value Reference Range Interpretation Comments T-helper cells (CD4) count, lowest 150 absolute value (test code = 84231) [facility] SpringsHIV-CMIA (Chemiluminescent Microparticle Immuno Assay) 2015-03-03 09:53:00 Test Item Value Reference Range Interpretation Comments HIV-CMIA (Chemiluminescent Reactive Non Reactive A Microparticle Immuno Assay) (test code = 637128) [facility] SpringsHIV-1RNA, serum, by PCR, xzphxhggmocv4878-32-92 09:53:00 Test Item Value Reference Range Interpretation Comments HIV-1RNA, serum, by PCR, <20 copies/mL quantitative (test code = 50422) [facility] Springshepatitis A antibody, [id number] 09:53:00 Test Item Value Reference Range Interpretation Comments hepatitis A antibody, total (test Negative Negative code = 75) [facility] [id number] 09:53:00 Test Item Value Reference Range Interpretation Comments hepatitis B core antibody, total Negative Negative (test code = 77) [facility] B surface gknkogn3795-98-61 09:53:00 Test Item Value Reference Range Interpretation Comments hepatitis B surface antigen (test Negative Negative code = 79) [facility] Springsrapid plasma reagin antibody, [id number] 09:53:00 Test Item Value Reference Range Interpretation Comments rapid plasma reagin antibody, Non Reactive Non Reactive serum (test code = 5291-0) [facility] Springshepatitis C antibody, [id number] 09:53:00 Test Item Value Reference Range Interpretation Comments hepatitis C antibody, serum (test code <0.1 0.0-0.9 = 5199-5) [facility] Springstoxoplasma gondii antibody, [id number] 09:53:00 Test Item Value Reference Range Interpretation Comments toxoplasma gondii antibody, IgG (test <3.0 0.0-5.9 code = 2430) [facility] Springshepatitis B surface [id number] 09:53:00 Test Item Value Reference Range Interpretation Comments hepatitis B surface antibody Non Reactive (test code = 78) [facility] SpringsLDL cholesterol, [id number] 09:53:00 Test Item Value Reference Range Interpretation Comments LDL cholesterol, serum (test code = 133 mg/dL 0-99 H 2088-11) [facility] Springsvery low density ypdcuqlbjpae6357-09-79 09:53:00 Test Item Value Reference Range Interpretation Comments very low density lipoproteins (test 36 mg/dL 5-40 code = 2090-7) [facility] SpringsHDL cholesterol, [id number] 09:53:00 Test Item Value Reference Range Interpretation Comments HDL cholesterol, serum (test code = 45 mg/dL >39 2084-9) [facility] Springstriglyceride, serum, gifmell2943-72-07 09:53:00 Test Item Value Reference Range Interpretation Comments triglyceride, serum, fasting (test 178 mg/dL 0-149 H code = 2571-8) [facility]cholesterol, [id number] 09:53:00 Test Item Value Reference Range Interpretation Comments cholesterol, serum (test code = 214 mg/dL 100-199 H 2092-3) [facility] Springsalanine aminotransferase (SGPT), [id number] 09:53:00 Test Item Value Reference Range Interpretation Comments alanine aminotransferase (SGPT), serum 9 1/L 0-32 (test code = 1742-6) [facility] Springsaspartate aminotransferase (SGOT), buceb8096-08-17 09:53:00 Test Item Value Reference Range Interpretation Comments aspartate aminotransferase (SGOT), 10 1/L 0-40 serum (test code = 1920-8) [facility] Springsalkaline phosphatase, [id number] 09:53:00 Test Item Value Reference Range Interpretation Comments alkaline phosphatase, serum (test 120 1/L 39-117 H code = 1783-0) [facility]bilirubin, serum, [id number] 09:53:00 Test Item Value Reference Range Interpretation Comments bilirubin, serum, total (test code 0.5 mg/dL 0.0-1.2 = 1975-2) [facility] Healthalbumin/globulin ratio, [id number] 09:53:00 Test Item Value Reference Range Interpretation Comments albumin/globulin ratio, serum (test 1.7 1.1-2.5 code = 1759-0) [facility] Healthglobulin, [id number] 09:53:00 Test Item Value Reference Range Interpretation Comments globulin, serum (test code = 2336-6) 2.7 1.5-4.5 [facility] Healthalbumin, [id number] 09:53:00 Test Item Value Reference Range Interpretation Comments albumin, serum (test code = 1751-7) 4.6 g/dL 3.5-5.5 [facility]protein, total, [id number] 09:53:00 Test Item Value Reference Range Interpretation Comments protein, total, serum (test code = 7.3 g/dL 6.0-8.5 2885-2) [facility] Springscalcium, [id number] 09:53:00 Test Item Value Reference Range Interpretation Comments calcium, serum (test code = 1999-8) 9.7 mg/dL 8.7-10.2 [facility] Springscarbon dioxide, venous kkwnq8344-28-02 09:53:00 Test Item Value Reference Range Interpretation Comments carbon dioxide, venous blood (test 27 mmol/L 18-29 code = 7-1) [facility] Springschloride, [id number] 09:53:00 Test Item Value Reference Range Interpretation Comments chloride, serum (test code = 100 mmol/L 97-108 2074-0) [facility] Healthpotassium, [id number] 09:53:00 Test Item Value Reference Range Interpretation Comments potassium, serum (test code = 4.4 mmol/L 3.5-5.2 2823-3) [facility] Springssodium, yoiwm5819-40-76 09:53:00 Test Item Value Reference Range Interpretation Comments sodium, serum (test code = 2951-2) 142 mmol/L 134-144 [facility] Springsurea nitrogen/creatinine ratio, [id number] 09:53:00 Test Item Value Reference Range Interpretation Comments urea nitrogen/creatinine ratio, serum 15 9-23 (test code = 3097-3) [facility] HealtheGFR if Ocrysbdr4124-82-66 09:53:00 Test Item Value Reference Range Interpretation Comments eGFR if 105 >59 (test code = 27510-3) mL/min/((173/100).m2) [facility] SpringsEstimated Glomerular Filtration Rate (calc)2015-03-03 09:53:00 Test Item Value Reference Range Interpretation Comments Estimated Glomerular 91 >59 Filtration Rate (calc) mL/min/((173/100).m2 (test code = 61559-3) ) [facility] Springscreatinine, [id number] 09:53:00 Test Item Value Reference Range Interpretation Comments creatinine, serum (test code = 0.74 mg/dL 0.57-1.00 2160-0) [facility] Springsurea nitrogen, [id number] 09:53:00 Test Item Value Reference Range Interpretation Comments urea nitrogen, blood (test code = 11 mg/dL 6-24 3094-0) [facility] Springsblood glucose, lgbaok4412-41-27 09:53:00 Test Item Value Reference Range Interpretation Comments blood glucose, random (test code = 96 mg/dL 65-99 2339-0) [facility] Springsimmature granulocytes, percentage of total cells, blood 2015-03-03 09:53:00 Test Item Value Reference Range Interpretation Comments immature granulocytes, percentage of 0 % total cells, blood (test code = 41963-0) [facility] Springsbasophil count, iugnrhts6211-41-93 09:53:00 Test Item Value Reference Range Interpretation Comments basophil count, absolute (test 0.0 x10E3/uL 0.0-0.2 code = 55881-9) [facility] HealthEosinophil Absolute [id number] 09:53:00 Test Item Value Reference Range Interpretation Comments Eosinophil Absolute Count (test 0.2 X10E3/UL 0.0-0.4 code = 74290-2) [facility] Healthmonocyte count, blood, pnoaimbvf5407-60-88 09:53:00 Test Item Value Reference Range Interpretation Comments monocyte count, blood, automated 0.3 X10E3/UL 0.1-0.9 (test code = 742-7) [facility] Healthlymphocyte count, blood, mzqqwqiha7145-95-73 09:53:00 Test Item Value Reference Range Interpretation Comments lymphocyte count, blood, 1.7 X10E3/UL 0.7-3.1 automated (test code = 731-0) [facility] HealthAbsolute Gszofnrhogv9151-91-60 09:53:00 Test Item Value Reference Range Interpretation Comments Absolute Neutrophils (test code 3.5 X10E3/UL 1.4-7.0 = 34439-5) [facility] Healthbasophils as percent of blood vdbtygnkok4418-92-26 09:53:00 Test Item Value Reference Range Interpretation Comments basophils as percent of blood 0 % leukocytes (test code = 707-0) [facility] Healtheosinophils as percent of blood ocsrxgxrpy2112-92-19 09:53:00 Test Item Value Reference Range Interpretation Comments eosinophils as percent of blood 4 % leukocytes (test code = 713-8) [facility] Healthmonocytes as percent of blood dkresczbfe3503-52-07 09:53:00 Test Item Value Reference Range Interpretation Comments monocytes as percent of blood 6 % leukocytes (test code = 5905-5) [facility] Healthlymphocytes as percent of blood cpkdbfrico4899-38-94 09:53:00 Test Item Value Reference Range Interpretation Comments lymphocytes as percent of blood 30 % leukocytes (test code = 736-9) [facility] Healthneutrophils as percent of blood newhgvhzzu0611-35-14 09:53:00 Test Item Value Reference Range Interpretation Comments neutrophils as percent of blood 60 % leukocytes (test code = 770-8) [facility] Healthplatelet pplsb7912-53-52 09:53:00 Test Item Value Reference Range Interpretation Comments platelet count (test code = 225 X10E3/UL 150-379 777-3) [facility] qcdfl0106-97-70 09:53:00 Test Item Value Reference Range Interpretation Comments red blood cell distribution width 13.6 % 12.3-15.4 (test code = 788-0) [facility] corpuscular hemoglobin concentration, CXL2801-96-01 09:53:00 Test Item Value Reference Range Interpretation Comments mean corpuscular hemoglobin 33.3 G/DL 31.5-35.7 concentration, RBC (test code = 786-4) [facility] corpuscular hemoglobin, GFJ2399-35-49 09:53:00 Test Item Value Reference Range Interpretation Comments mean corpuscular hemoglobin, RBC 35.4 pg 26.6-33.0 H (test code = 785-6) [facility] corpuscular volume, QSU4325-04-29 09:53:00 Test Item Value Reference Range Interpretation Comments mean corpuscular volume, RBC (test 106 fL 79-97 H code = 787-2) [facility], shbug5589-76-66 09:53:00 Test Item Value Reference Range Interpretation Comments hematocrit, blood (test code = 4544-3) 44.1 % 34.0-46.6 [facility], wakgf3204-72-40 09:53:00 Test Item Value Reference Range Interpretation Comments hemoglobin, blood (test code = 14.7 g/dL 11.1-15.9 718-7) [facility]throcyte (RBC) supiv2772-08-37 09:53:00 Test Item Value Reference Range Interpretation Comments erythrocyte (RBC) count (test 4.15 X10E6/UL 3.77-5.28 code = 789-8) [facility]ukocyte count, ajclc7786-81-56 09:53:00 Test Item Value Reference Range Interpretation Comments leukocyte count, blood (test 5.8 X10E3/UL 3.4-10.8 code = 6690-2) [facility] SpringsCD4/CD8 ahinx8618-68-28 09:53:00 Test Item Value Reference Range Interpretation Comments CD4/CD8 ratio (test code = 33059) 0.73 0.92-3.72 L [facility] SpringsT-suppressor cells (CD8) as percent of blood lymphocytes 2015-03-03 09:53:00 Test Item Value Reference Range Interpretation Comments T-suppressor cells (CD8) as percent of 25.7 % 12.0-35.5 blood lymphocytes (test code = 3517) [facility] Springsabsolute [id number] 09:53:00 Test Item Value Reference Range Interpretation Comments absolute CD8 (test code = 08337) 437 109-897 [facility] SpringsT-helper cells (CD4) as percent of blood lymphocytes 2015-03-03 09:53:00 Test Item Value Reference Range Interpretation Comments T-helper cells (CD4) as percent of 18.7 % 30.8-58.5 L blood lymphocytes (test code = 8123-2) [facility]T-helper cells (CD4) cexir9250-77-79 09:53:00 Test Item Value Reference Range Interpretation Comments T-helper cells (CD4) count (test code 318 /UL 359-9229 L = 22202-5) [facility]- XR CHEST 1 [id number] 08:19:00 FAX: Yudith Crenshaw [phone] [place]: St: DIS FAX: Manuel Esteban [phone] Name: GUERRERO MURRIETA [facility] [place] [facility] : 1960 Age/S: 53/F [address] [facility] Unit #: [id number] Loc: [place], [place]: [place] [address] Acct: [id number] Dis Date: Status: DIS IN PHONE #: [phone] Exam Date: 02/27/2014 0810 FAX #: [phone] Reason: COPD EXAMS: CPT CODE: [id number] XR CHEST 1 V 75598 CHEST, FRONTAL VIEW HISTORY: COPD FINDINGS: Since 02/26/14, lungs remain emphysematous and clear. The heart size is normal. Aorta is partially calcified. Minimal degenerative changes affect the thoracic spine. IMPRESSION: No ev idence of acute airspace disease. at 0819 Reported and signed by: Anita Gonzales M.D. CC: Yudith Eastman MD; Manuel Esteban MD Technologist: LEXI HOLCOMB; REGI VINSON [facility] Date/Time/By: 02/27/2014 (818) : By: [email or web address] PAGE 1 Signed Report FAX: Yudith Crenshaw [phone] [place]: St: DIS FAX: Manuel Esteban MD [phone] Name: GUERRERO MURRIETA [facility] [place] [facility] : 1960 Age/S: 53/F [address] [facility] Unit #: [id number] Loc: [place], [place]: [place] [address] Acct: [id number] Dis Date: Status: DIS IN PHONE #: [phone] Exam Date: 02/27/2014 0810 FAX #: [phone] Reason: COPD EXAMS: CPT CODE: [id number] XR CHEST 1 V 08422 <Continued> Orig Print D/T: S: 02/27/2014 (08) PAGE 2 Signed Report- XR CHEST 1 [id number] 21:21:00 FAX: Manuel Esteban MD [phone] [place]: St: DIS Name: GUERRERO MURRIETA [facility] [place] [facility] : 1960 Age/S: 53/F [address] [facility] Unit[facility] [id number] Loc: [place], [place]: [place] [address] Acct: [id number] Dis Date: Status: DIS IN PHONE #: [phone] Exam Date: 02/26/2014 1748 FAX #: [phone] Reason: CHEST PAIN EXAMS: CPT CODE: [id number] XR CHEST 1 V 00870 CHEST, FRONTAL VIEW HISTORY: CHEST PAIN FINDINGS: Since 02/03/14, lungs are emphysematous and clear. The heart size is normal. Aorta is partially calcified. The bones are intact. IMPRESSION: No evidence of acute airspace disease. at 2121 Reported and signed by: Anita Gonzales M.D. CC: Manuel Esteban MD Technologist: PEÑA SMITH Trnscrd Date/Time/By: 02/26/2014 (2120) : By: [email or web address] PAGE 1 Signed Report FAX: Manuel Esteban MD [phone] [place]: St: DIS----- Name: GUERRERO MURRIETA [facility] [place] [facility] : 1960 Age/S: 53/F [address] [facility] [employer] Unit #: [id number] Loc: [place], [place]: [place] [address] Acct: [id number] Dis Date: Status: DIS IN PHONE #: [phone] Exam Date: 02/26/2014 1748 FAX #: [phone] Reason: CHEST PAIN EXAMS: CPT CODE: [id number] XR CHEST 1 V 49998 <Continued> Orig Print D/T: S: 02/26/2014 (3597) PAGE 2 Signed Report- XR CHEST 1 [id number] 16:54:00 FAX: Amaya Estrada MD [phone] [place]: St: [facility] Name: GUERRERO MURRIETA [facility] [place] [facility] : 1960 Age/S: 53/F [address] [facility] Unit#: [id number] Loc: [place], [place]: [place] [address] Acct: [id number] Dis Date: Status: UNK PHONE #: [phone] Exam Date: 02/03/2014 1622 FAX #: [phone] Reason: cp EXAMS: CPT CODE: [id number] XR CHEST 1 V 74135 REASON FOR EXAM: Chest pain COMPARISON: 2012. Chest, single view portable The lungs are hyperinflated and clear. Heart size is normal. No effusion or pneumothorax can be seen. Osseous structures appear to be intact. IMPRESSION: No acute cardiopulmonary disease. Hyperinflated lung pattern. at 4389 Reported and signed by: Zoran Fuller M.D. CC: Amaya Estrada MD Technologist: YESY LOCKETT Trnidrd Date/Time/By: 02/03/2014 (6486) : By: [facility] PAGE 1 Signed Report FAX: Amaya Estrada MD [phone] [place]: [facility]: [facility]------- Name: GUERRERO MURRIETA [facility] [place] [facility] : 1960 Age/S: 53/F [address] [facility] Unit #: [id number] Loc: [place], [place]: [place] [address] Acct: [id number] Dis Date: Status: [facility] PHONE #: [phone] Exam Date: 02/03/2014 1622 FAX #: [phone] Reason: cp EXAMS: CPT CODE: [id number] XR CHEST 1 V 39567 <Continued> Orig Print D/T: S: 02/03/2014 (2519) PAGE 2 Signed Report- CT ABD PELVIS W/[id number] 07:54:00 FAX: Julia Burns MD [phone] [place]: St: [facility] Name: GUERRERO MURRIETA [facility] [place] [facility] : 1960 Age/S: 52/F [address] [facility] Unit: [id number] Loc: [place], [place]: [place] [address] Acct: [id number] Dis Date: Status: [facility] PHONE #: [phone] Exam Date: 10/18/2013 2345 FAX #: [phone] Reason: gen'd abd pain, IV contrast only EXAMS: CPT CODE: [id number] CT ABD PELVIS W/CONT 72288 HISTORY: Abdominal pain, nausea and vomiting. CT [...] Signed Report (CONTINUED) FAX: Julia Burns MD [phone] [place]: St: [facility] -- Name: GUERRERO MURRIETA [facility] [place] [facility] : 1960 Age/S: 52/F [address] [facility] Unit: [id number] Loc: [place], [place]: [place] [address] Acct: [id number] Dis Date: Status: [facility] PHONE #: [phone] Exam Date: 10/18/2013 2345 FAX #: [phone] Reason: gen'dabd pain, IV contrast only EXAMS: CPT CODE: [id number] CT ABD PELVIS W/CONT 17935 <Continued> Electronically Signed by Aureliano Fuller on10/19/2013 at 0754 Reported and signed by: Zoran Fuller M.D. CC: Julia Burns MD Technologist: YESY Ramirez Dt/Tm: 10/19/2013 (0754) t.RCM Orig Print D/T: S: 10/19/2013 (0758 6.44 321.13 PAGE 2 Signed Report- XR CHEST 1 [id number] 21:46:00 FAX: Alec Damian MD [phone] [place]: St: [facility] FAX: Julia Burns MD [phone] Name: GUERRERO MURRIETA [facility] [place] [facility] : 1960 Age/S: 52/F [address] [facility] Unit #: [id number] Loc: [place], [place]: [place] [address] Acct: [id number] Dis Date: Status: K PHONE #: [phone] Exam Date: 10/18/2013 2132 FAX #: [phone] Reason: abd pain EXAMS: CPT CODE: [id number] XR CHEST 1 V 81480 CHEST, 1 VIEW HISTORY: abd pain FINDINGS: Since 05/18/13, the lungs remain hyperinflated is and clear. No consolidation, pleural effusion or pneumothorax. The heart size is normal. Aorta is partially calcified. The bones are intact. IMPRESSION: No evidence of acute airspace disease. COPD. ElectronicallySigned by Aureliano Gonzales on 10/18/2013 at 2146 Reported and signed by: Anita Gonzales M.D. CC: Alec Damian MD; Julia Burns MD Technologist: PEÑA Whitleyidkasia Date/Time/By: 10/18/2013 (2145) : By: [email or web address] PAGE 1 Signed Report FAX: Alec Damian MD [phone] [place]: St: [facility] FAX: Julia Burns MD [phone] Name: GUERRERO MURRIETA [facility] [place] [facility] : 1960 Age/S: 52/F [address] [facility] Unit #: [id number] Loc: [place], [place]: [place] [address] Acct: [id number] Dis Date: Status: K PHONE #: [phone] Exam Date: 10/18/20132131 FAX #: [phone] Reason: abd pain EXAMS: CPT CODE: [id number] XR CHEST 1 V 55361 <Continued> Orig Print D/T: S: 10/18/2013 (0) PAGE 2 Signed Report- XR CHEST 1 [id number] 10:12:00 FAX: Mikhail Bender MD [phone] [place]: St: [facility] FAX: Yudith Crenshaw [phone] [facility] 1960 [facility]S: 52/F [address] Unit #: [id number] Loc: [place], [place]: [place] [address] Acct: [id number] Dis Date: Status: [facility] PHONE #: [phone] Exam Date: 05/18/2013 09 FAX #: [phone] Reason: SOB EXAMS: CPT CODE: [id number] XR CHEST 1 V 57783 REASON FOR EX AM: Shortness of breath [...] MD; Yudith Eastman MD Technologist: ROE GARZA [facility] Date/Time/By: 05/18/2013 (1012) : By: [facility]ST[facility] PAGE 1 Signed Report FAX: Mikhail Bender MD [phone] [place]: St: UNKFAX: Yudith Crenshaw [phone] Name: GUERRERO MURRIETA [facility] [place] [facility] : 1960 Age/S: 52/F [address] [facility] [employer] Unit #: [id number] Lo c: [place], [place]: [place] [address] Acct: [id number] Dis Date: Status: UNK PHONE #: [phone] Exam Date: 05/18/2013904 FAX #: [phone] Reason: SOB EXAMS: CPT CODE: [id number] XR CHEST 1 V 01015 <Continued> Orig Print D/T: S: 05/18/2013 (1015) PAGE 2 Signed Report- MRI BRAIN W WO [id number] 13:45:00 FAX: Mikhail Bender MD [phone] [place]: St: [facility] FAX: Alfred Yudith Choi [phone] Name: GUERRERO MURRIETA NOLVIA [facility] [place] [facility] : 1960 Age/S: 52/F [address] [facility] Unit #: [id number] Loc: [place], [place]: [place] [address] Acct: [id number] Dis Date: Status: UNK PHONE #: [phone] Exam Date: 05/15/2013 09 FAX #: [phone] Reason: ANISOCORIA DIPLOPIS EXAMS: CPT CODE: [id number] MRI BRAIN W WO CONT 39842 CLINICAL HISTORY: Anisocoria, diplopia MRI brain ,with [...] be symmetric. Appropriate flow-void occurs in the enterprise of [place]. No evidence of hemorrhage seen. [...] Signed Report (CONTINUED) FAX: Mikhail Bender MD [phone] [place]: St: [facility] FAX: Alfred QuintanillasanthoshYudith Catie [phone] Name: GUERRERO MURRIETA [facility] [place] [facility] : 1960 Age/S: 52/F [address] [facility] Unit #: [id number] Loc: [place], [place]: [place] [address] Acct: [id number] Dis Date: Status: [facility] PHONE #: [phone] Exam Date: 05/15/2013 0951 FAX #: [phone] Reason: ANISOCORIA DIPLOPIS EXAMS: CPT CODE: [id number] MRI BRAIN W WO CONT 88080 &lt ;Continued> orbit with hypoplastic right maxillary sinus could support sick sinus syndrome. No current obstruction is seen. at 1345 Reported and signed by: Zoran Fuller M.D. CC: Mikhail Lamb MD; Yudith Eastman MD Technologist: MIO HSU; ELVIN RAMIREZ Trnscrd Date/Time/By: 05/15/2013 (3522) : By: [facility]ST[facility] PAGE 2 Signed Report FAX: Mikhail Bender MD [phone] [place]: St:[facility] FAX: Yudith Crenshaw [phone] Name: GUERRERO MURRIETA [facility] [place] [facility] : 1960 Age/S: 52/F [address] [facility] Unit #: [id number] Loc: [place], [place]: [place] [address] Acct: [id number] Dis Date: Status: [facility] PHONE #: [phone] Exam Date: 05/15/2013 0951 FAX #: [phone] Reason: ANISOCORIA DIPLOPIS EXAMS: CPT CODE: [id number] MRI BRAIN W WO CONT 66353 <Continued> Orig Print D/T: S: 05/15/2013 (4395) PAGE 3 Signed Report- CT CHEST W/O CONTRAST 2013-05-14 21:40:00 FAX: Mikhail Bender MD [phone] [place]: St: [facility] FAX: Yudith Crenshaw [phone] Name: GUERRERO MURRIETA [facility] [place] [facility] : 1960 Age/S: 52/F [address] Unit: [id number] Loc: [place], [place]: [place] [address] Acct: [id number] Dis Date: Status: UNK PHONE #: [phone] Exam Date: 05/14/20131953 FAX #: [phone] Reason: SOB EXAMS: CPT CODE: [id number] CT CHEST W/O CONTRAST 74837 Reason for ex am, shortness of breath, [...] signed by: Zoran Fuller M.D. CC: Mikhail Lmab MD; Yudith Eastman MD Technologist: SILVANO WRIGHT Trnscrd Dt/Tm: 05/14/2013 (2139) Malik Orig Print D/T: S: 05/14/2013 (2142 6.89 254.08 PAGE 1 Signed Report- XR CHEST 2 [id number] 17:37:00 FAX: Yudith Crenshaw [phone] [place]: St: [facility] Name: GUERRERO MURRIETA [facility] [place] [facility] : 1960 Age/S: 52/F [address] Unit#: [id number] Loc: [place], [place]: [place] [address] Acct: [id number] Dis Date: Status: [facility] PHONE #: [phone] Exam Date: 05/14/2013 1548 FAX #: [phone] Reason: COPD PNEUMONIA EXAMS: CPT CODE: [id number] XR CHEST 2 V 02965 CHEST, 2 VIEWS HISTORY: COPD PNEUMONIA COMPARISON: Chest x- ray 05/12/2013 FINDINGS: The lungs are hyperexpanded. There are bilateral diffuse interstitial markings. No significant pleural effusions. The cardiomediastinal contours are stable. No acute bone abnormality. IMPRESSION: 1.Diffuse interstitial markings likely represent interstitial pneumonia or other interstitial disease. Followup recommended. 2. Findings compatible clinical diagnosis of COPD. at 1738 Reported and signed by: Gonzalo Hall M.D. CC: Yudith Eastman MD Technologist: PEÑA SMITH Trnscrd Date/Time/By: 05/14/2013 (1736) : By: [email or web address] PAGE 1 Signed Report FAX: Yudith Crenshaw [phone] [place]: St: [facility] Name: GUERRERO MURRIETA [facility] : 1960 Age/S: 52/F [address] [facility] [id number] Loc: [place], [place] Phys: Мар[place] [address] Acct: [id number] Dis Date: Status: [facility] PHONE #: [phone] Exam Date: 05/14/2013 1548 FAX #: [phone] Reason: COPD PNEUMONIA EXAMS: CPT CODE: [id number] XR CHEST 2 V 34857 <Continued> Orig Print D/T: S: 05/14/2013 (5252) PAGE 2 Signed Report- XR CHEST 1 [id number] 16:06:00 FAX: Melida Borges [phone] [place]: St: [facility] Name: GUERRERO MURRIETA [facility] [place] [facility] : 1960 Age/S: 52/F [address] Unit#: [id number] Loc: [place], [place]: [place] [address] Acct: [id number] Dis Date: Status: [facility] PHONE #: [phone] Exam Date: 05/12/2013 1547 FAX #: [phone] Reason: copd/cough, shortness of breath EXAMS: CPT CODE: [id number] XR CHEST 1 V 27520 REASON FOR EXAM: Cough, COPD, shortness of breath COMPARISON: October 18, 2012. Chest, single view portable The lungs are hyperinflated consistent with COPD. More but no infiltrates are appreciated focally. Heart size is intact.. No effusion or pneumothorax can be seen. Osseous structures appear to be intact. IMPRESSION: COPD changes. Interstitial patterncould indicate interstitial pneumonia/ disease or non-cardiogenic edema. at 1605 Reported and signed by: Zoran Fuller M.D. CC: Melida Singh Technologist: LEXI HOLCOMB [facility] Date/Time/By: 05/12/2013 (3021) : By: [facility]ST[facility] PAGE 1 Signed Report FAX: Melida Borges [phone] [place]: St: UNK ------ Name: GUERRERO MURRIETA [facility] [place] [facility] : 1960Age/S: 52/F [address] [facility] Unit #: [id number] Loc: [place], [place]: [place] [address] Acct: [id number] Dis Date: Status: UNK PHONE #:[phone] Exam Date: 05/12/2013 1547 FAX #: [phone] Reason: copd/cough, shortness of breath EXAMS: CPT CODE: [id number] XR CHEST 1 V 76764 <Continued> Orig Print D/T: S: 05/12/2013 (0239) PAGE 2 Signed Report- CT ABD PELVIS W/[id number] 17:45:00 FAX: Bossman Nassar MD [place]: St: UNK Name: GUERRERO MURRIETA [facility] [place] [facility] : 1960 Age/S: 51/F [address] Unit: [id number] Loc: [place], [place]: [place] [address] Acct: [id number] Dis Date: Status: UNK PHONE #: [phone] Exam Date: 12/20/2012 1729 FAX #: [phone] Reason: generalized abd pain EXAMS: CPT CODE: [id number] CT ABD PELVIS W/CONT 03356 HISTORY: Generalized abdominal pain. CT abdomen contrast- [...] Signed Report (CONTINUED) FAX: Bossman Nassar MD [place]: St: [facility] Name: GUERRERO MURRIETA [facility] [place] [facility] : 1960 Age/S: 51/F [address] Unit: [id number] Loc: [place], [place]: [place] [address] Acct: [id number] Dis Date: Status: [facility] PHONE #: [phone] Exam Date: 12/20/2012 1729 FAX #: Reason: generalized abd pain EXAMS: CPT CODE: [id number] CT ABD PELVIS W/CONT 30720 <Continued> CONCLUSION: No acute abnormality in the deep pelvis. Hysterectomy. Sigmoid diverticulosis without obvious active disease. Limited bowel loop assessment however. at 4803 Reported and signed by: RobertC. Alina M.D. CC: Bossman Nassar MD Technologist: SILVANO Whitleyidkasia Dt/Tm: 12/20/2012 (5325) t.IFEOMA Orig Print D/T: S: 12/20/2012 (6855 PAGE 2 Signed Report- XR CHEST 2 [id number] 14:58:00 FAX: Bossman Nassar MD [place]: St: [facility] Name: GUERRERO MURRIETA [facility] [place] [facility] : 1960 Age/S: 51/F [address] [facility] Unit[facility] [id number] Loc: [place], [place]: [place] [address] Acct: [id number] Dis Date: Status: [facility] PHONE #: [phone] Exam Date: 10/18/2012 1416 FAX #: [phone] Reason: cough, fever EXAMS: CPT CODE: [id number] XR CHEST 2 V 61369 CHEST, 2 VIEWS HISTORY: cough, fever FINDINGS: Since 09/18/12, minimal atelectasis is noted in the left lower lobe. The previously seen faint density in the lung base has resolved. The lungs are otherwise clear. The heart size is normal. Minimal degenerative changes affect the thoracic spine. IMPRESSION: Aside from minimal atelectasis, no evidence of acute airspacedisease. at 0049 Reported and signed by: Anita Gonzales M.D. CC: Bossman Nassar MD Technologist: ANITA Ramirez Date/Time/By: 10/18/2012 (7576) : By: [email or web address] PAGE 1 Signed Report FAX: Bossman Belcher MD [place]: St: UNK Name: GUERRERO MURRIETA [facility] [place] [facility] : 1960 Age/S: 51/F [address] [facility] Unit #: [id number] Loc: [place], [place]: [place] [address] Acct: [id number] Dis Date: Status: UNK PHONE #: [phone] Exam Date: 10/18/2012 1416 FAX#: [phone] Reason: cough, fever EXAMS: CPT CODE: [id number] XR CHEST 2 V 61011 <Continued> Orig Print D/T: S: 10/18/2012 (1504) PAGE 2 Signed Report- XR CHEST 1 [id number] 13:03:00 [place]: St: UNK Name: GUERRERO MURRIETA [facility] [place] [facility] : 1960 Age/S: 51/F [address] [facility] Unit[facility] [id number] Loc: [place], [place]: [place] [address] Acct: [id number] Dis Date: Status: [facility] PHONE #: [phone] Exam Date: 09/18/2012 1234 FAX #: [phone] Reason: CHEST PAIN EXAMS: CPT CODE: [id number] XR CHEST 1 V 75904 CHEST, 1 VIEW HISTORY: chest pain. FINDINGS: [...] M.D. CC: Technologist: ADELA Ramirez Date/Time/By: 09/18/2012 (9215) : By: [email or web address] PAGE 1 Signed Report [place]: St: [facility] Name: GUERRERO MURRIETA [facility] [place] [facility] : 1960 Age/S: 51/F [address] [facility] Unit #: [id number] Loc: [place], [place]: [place] [address] Acct: [id number] Dis Date: Status: [facility] PHONE #: [phone] Exam Date: 09/18/2012 1234 FAX #: [phone] Reason: CHEST PAIN EXAMS: CPT CODE: [id number] XR CHEST 1 V 28828 <Continued> Orig Print D/T: S: 09/18/2012 (6756) PAGE 2 Signed Report- CT HEAD/BRAIN W/O [id number] 11:38:00 [place]: St: UNK Name: GUERRERO MURRIETA [facility] [place] [facility] : 1960 Age/S: 51/F [address] [facility] Unit: [id number] Loc: [place], [place]: [place] [address] Acct: [id number] Dis Date: Status: UNK PHONE #: [phone] Exam Date: 09/18/2012 1135 FAX #: [phone] Reason: dizzy EXAMS: CPT CODE: [id number] CT HEAD/BRAIN W/O CONT 29095 HISTORY: Dizziness. TECHNIQUE: Axial noncontrastCT images of [...] IMPRESSION: No acute intracranial findings . at 1138 Reported and signed by: Colt Sorensen CC: Technologist: ARIEL KERR Trnvickrd Dt/Tm: 09/18/2012 (1124) Chris Orig Print D/T: S: 09/18/2012 (2423 PAGE 1 Signed Report
--- OUTSIDE RECORDS SUMMARY | 2021-01-03 10:07 | XMS REPORT ---
:1960 Author Name Messaging, Secure Address Unavailable Unavailable , Care Team Providers Name Role Phone Antoniokellie Husam Unavailable [phone] PROBLEMS Condition Status Date Provider Notes NONSPEC RXN CMI MSR G-IFN ANTIG RSPN NO ACT TB active Husam Vital DIZZINESS active Husam Vital Hyperlipidemia active Husam Vital Preventive health care active Husam Vital Screening, colon cancer active Husam Vital Hip arthralgia active Husam Vital COPD active Husam Vital ENCOUNTERS Date Type Provider Location Encounter Diagn osis - Ambulatory Vasyl Corbin UNK Encounter - Ambulatory Husam RAPPK Encounter Zahraa - Ambulatory Husam RAPPK Encounter Zahraa - Ambulatory Husam RAPPK Encounter Zahraa [place] - Ambulatory Husam RAPPK Encounter Zharaa LinkLogdeb - Ambulatory Husam RAPPK Encounter Zahraa Em - Ambulatory [facility] UNK Encounter Feop Marlee Garcia - Ambulatory Tai Dugan UNK Encounter Teresa - Ambulatory Clarence RAPPK Encounter - Ambulatory Husam RAPPK Encounter Zahraa LinkLogdeb - Ambulatory Husam Weiner UNK Encounter Nemandrew - Ambulatory Husam Weiner UNK Encounter Zahraa Dewittucena [place] - Ambulatory Husam Weiner UNK Encounter Nemandrew LinkLogic - Ambulatory Husam Weiner UNK Encounter Nemandrew LinkLogic - Ambulatory Husam Weiner UNK Encounter Nemdaviek - Ambulatory Husam Weiner NONSPEC RX N CMI MSR Encounter Nemdaviekellie Tai G-IFN ANTIG RSPN NO ACT Dugan Teresa TB - Ambulatory Nkechi [place] UNK Encounter - Ambulatory Husam Weiner UNK Encounter Nemandrew LinkLogic - Ambulatory Husam Vital Husam UNK Encounter Nemecekellie LinkLogic Nkechi [place] - Ambulatory Husam Weiner UNK Encounter Nemandrew LinkLogic - Ambulatory Husam Vital Husam UNK Encounter Nemdaviek - Ambulatory Husam Vital Husam UNK Encounter Nemandrew Dewittjohn Lujan Dugan Teresa - Ambulatory Marlee Oconnor UNK Encounter - Ambulatory Husam Zahraa Husam UNK Encounter Nemecek LinkLogic - Ambulatory Husam Zahraa Husam UNK Encounter Nemandrew LinkLogic - Ambulatory Husam Estrelladaviekellie Husam UNK Encounter Nemandrew LinkLogic - Ambulatory Palmer Garcia UNK Encounter - Ambulatory Husam Estrelladaviekellie Husam UNK Encounter Nemandrew - Ambulatory Husam Weiner UNK Encounter Nemecekellie Nkechi [place] - Ambulatory Meka [place] UNK Encounter - Ambulatory Fax Status LinkLogic UNK Encounter - Ambulatory Husam Weiner UNK Encounter Nemecek LinkLogic - Ambulatory Husam Weiner UNK Encounter Nemecekellie LinkLogic - Ambulatory Husam Weiner UNK Encounter Nemecek LinkLogic - Ambulatory Husam Weiner UNK Encounter Nemecek - Ambulatory Husam Weiner UNK Encounter Nemecek - Ambulatory Husam Weiner UNK Encounter Nemandrew Bejaranogee HookLance - Ambulatory Marlee Oconnor UNK Encounter - Ambulatory Marlee Oconnor UNK Encounter - Ambulatory Marlee Oconnor UNK Encounter - Ambulatory Husam Weiner UNK Encounter Nemecek LinkLogic - Ambulatory Mralee Oconnor UNK Encounter Hassel Pearce - Ambulatory Husam Weiner UNK Encounter Nemecek - Ambulatory Marlee Oconnor UNK Encounter - Ambulatory Husam Weiner UNK Encounter Nemecek LinkLogic - Ambulatory Husam Weiner UNK Encounter Nemecekellie LinkLogic - Ambulatory Husam Weiner UNK Encounter Nemecek - Ambulatory Husam Weiner UNK Encounter Nemecek LinkLogic - Ambulatory Fax Status LinkLogic UNK Encounter - Ambulatory Husam Weiner UNK Encounter Nemecek - Ambulatory Husam Weiner Encounter Zahraa Obrien - Ambulatory Marlee Oconnor UNK Encounter - Ambulatory Marlee Oconnor UNK Encounter Luci Martes - Ambulatory Marcelle Rosas UNK Encounter - Ambulatory Fax Status LinkLogic UNK Encounter - Ambulatory Fax Status LinkLogic UNK Encounter - Ambulatory Fax Status LinkLogic UNK Encounter - Ambulatory Husam Weiner UNK Encounter Zahraa - Ambulatory Husam MEDINA Encounter Zahraa - Ambulatory Husam Weiner Hyperlipid emia Encounter Zahraa Velazco - Ambulatory Choice UNK Encounter Kai-Carlos - Ambulatory Husam MEDINA Encounter Zahraa BustosLogdeb - Ambulatory Marcelle Rosas UNK Encounter - Ambulatory Husam RAPPK Encounter Zahraa Cooper - Ambulatory Verito Bethel UNK Encounter - Ambulatory Vanessa Zarate UNK Encounter - Ambulatory Husam Weiner UNK Encounter Zahraa - Ambulatory Jose Ibanez UNK Encounter Rosas - Ambulatory Marcelle Rosas UNK Encounter - Ambulatory Marcelle Rosas UNK Encounter - Ambulatory Angeles Cameron UNK Encounter - Ambulatory Husam Weiner UNK Encounter Nemandrew AkashLogic - Ambulatory Luann Hugo UNK Encounter - Ambulatory Husam Weiner UNK Encounter Nemdaviek - Ambulatory Husam Weiner UNK Encounter Nemdaviek - Ambulatory Husam Weiner Encounter Nemandrew Velazco - Ambulatory Choice UNK Encounter Danish - Ambulatory Husam Weiner UNK Encounter Nemandrew Jacobo - Ambulatory Hsuam Weiner DIONTEK Encounter Nemandrew Ema Fonseca - Ambulatory Husam Weiner DIONTEK Encounter Nemandrew Velazco - Ambulatory Husam Weiner DIONTEK Encounter Nemecekellie AkashLogic - Ambulatory Husam Weiner DIONTEK Encounter Nemecek - Ambulatory Husam Weiner DIONTEK Encounter Nemecek - Ambulatory Husam Weiner FLAKO Encounter Nemandrew Nkechi [place] - Ambulatory Choice UNK Encounter Danish - Ambulatory Husam Weiner DIONTEK Encounter Nemecek - Ambulatory Husam Weiner UNK Encounter Nemecek - Ambulatory Husam Weiner Hyperlipid emia Encounter Nemdaviekellie Lucas - Ambulatory Choice UNK Encounter Danish - Ambulatory Marcelle Rosas UNK Encounter - Ambulatory Marcelle Rosas UNK Encounter - Ambulatory Bailee Rae UNK Encounter - Ambulatory Bailee Ashutosh Rae UNK Encounter - Ambulatory Husam Weiner UNK Encounter Nemandrew LinkLogic - Ambulatory Husam Weiner UNK Encounter Nemecek - Ambulatory Marcelle Rosas UNK Encounter Beau Crandallazolsean - Ambulatory Marcelle Rosas UNK Encounter - Ambulatory Ayusheliu Fish UNK Encounter Ángel Crandallazolsean - Ambulatory Bailee Rae UNK Encounter - Ambulatory Husam Weiner UNK Encounter Nemandrew Langston - Ambulatory Bailee Rae UNK Encounter Terjaimie Saman - Ambulatory Terlin Saman UNK Encounter - Ambulatory Husam Weiner DIONTEK Encounter Nemecek - Ambulatory Husam Weiner DIONTEK Encounter Nemdaviek - Ambulatory Husam Weiner UNK Encounter Antoniokellie Nkechi [place] - Ambulatory Richar UNK Encounter Danish - Ambulatory Husam Weiner UNK Encounter Nemandrew Annee Ángel - Ambulatory Husam Weiner UNK Encounter Nemecekellie LinkLogic - Ambulatory Malu Hurst UNK Encounter - Ambulatory Husam Weiner UNK Encounter Nemdaviekellie LinkLogic - Ambulatory Malu Hurst UNK Encounter - Ambulatory Remy Centeno UNK Encounter - Ambulatory Husam Weiner UNK Encounter Nemecek - Ambulatory Husam Weiner UNK Encounter Nemecek - Ambulatory Husam Weiner Preventive health care Encounter Zharaa Dewittucena [place] - Ambulatory Husam Weiner UNK Encounter Nemandrew LinkLogic - Ambulatory Husam Weiner UNK Encounter Nemandrew LinkLogic - Ambulatory Tara Haley UNK Encounter - Ambulatory Malu Valladares UNK Encounter - Ambulatory Fax Status LinkLogic UNK Encounter - Ambulatory Fax Status LinkLogic UNK Encounter - Ambulatory Husam Weiner UNK Encounter Nemecek - Ambulatory Husam Weiner UNK Encounter Nemecek - Ambulatory Husam Weiner Screening, colon cancer Encounter Nemecekellie Nkechi Velazco - Ambulatory Remy Perdomoisma BustosLogdeb UNK Encounter - Ambulatory Chiara Diallo UNK Encounter - Ambulatory Husam Weiner UNK Encounter Nemecek - Ambulatory Husam Weiner UNK Encounter Nemecek - Ambulatory Husam Weiner Hip arthra lgia Encounter Nemandrew Nkechi [place] - Ambulatory Husam Weiner UNK Encounter Nemandrew LinkLogic - Ambulatory Dilma Hunt UNK Encounter - Ambulatory Remy Perdomo UNK Encounter - Ambulatory Remy Osorio UNK Encounter Leonard - Ambulatory Husam Weiner UNK Encounter Nemecek LinkLogic - Ambulatory Husam Weiner UNK Encounter Nemecek LinkLogic - Ambulatory Chiara Diallo UNK Encounter - Ambulatory Nkechi [place] UNK Encounter - Ambulatory Chiara Diallo UNK Encounter - Ambulatory Husam Wenier UNK Encounter Nemecek LinkLogic - Ambulatory Husam Weiner UNK Encounter Nemecek LinkLogic - Ambulatory Husam Weiner UNK Encounter Nemecek LinkLogic - Ambulatory Odin Rinaldi UNK Encounter - Ambulatory Zee Michael UNK Encounter - Ambulatory Zee Michael UNK Encounter - Ambulatory Husam Weiner UNK Encounter Nemecek - Ambulatory Husam Weiner UNK Encounter Nemecekellie Jeronimoila - Ambulatory Husam Weiner UNK Encounter [...] LinkLogic - Ambulatory Husam Weiner COPD Encounter Nemandrew Bejaranoncsean HookLance - Ambulatory Sammie Sparks UNK Encounter - Ambulatory Sammie Sparks UNK Encounter LinkLogic - Ambulatory Deidrasean Mustafa-Saman UNK Encounter - Ambulatory Elodia Rubina UNK Encounter LinkLogic - Ambulatory Elodia Rubina UNK Encounter LinkLogic - Ambulatory Elodia Cespedes UNK Encounter LinkLogic - Ambulatory Elodia Srivastava UNK Encounter Wozencraft - Ambulatory Husam Weiner UNK Encounter Nemdaviek LinkLogic VITAL SIGNS Date Observation Value Provider oxygen saturation, oximetry 94 % Azuc nikolai [place] " method used to obtain blood pressure automatic Nkechi [place] " Blood Pressure Position 01 sitting Azuce na [place] " blood pressure, site #1 right arm Nkechi [place] " blood pressure, diastolic 73 mm[Hg] Azucen a [place] " blood pressure, systolic 105 mm[Hg] Nkechi [place] " pulse rate 104 /min Nkechi [place] " temperature E&M 98.1 [degF] Nkechi [place] " weight E&M 209 lbs. Nkechi [place] " weight in kilograms E&M 95 kg Nkechi [place] " height E&M 62 [in_i] Nkechi [place] " height in centimeters E&M 157.48 cm Azucen a [place] oxygen saturation, oximetry 95 % Azuc nikolai [place] " method used to obtain blood pressure automatic Knechi [place] " Blood Pressure Position 01 sitting Azuce na [place] " blood pressure, site #1 left arm Nkechi [place] " blood pressure, diastolic 70 mm[Hg] Azucen a [place] " blood pressure, systolic 125 mm[Hg] Nkechi [place] " pulse rate 89 /min Nkechi [place] " temperature E&M 98.2 [degF] Nkecih [place] " height E&M 62 [in_i] Nkechi [place] " height in centimeters E&M 157.48 cm Froilan [place] oxygen saturation, oximetry 90 % Warren ardo Dugan Teresa " method used to obtain blood pressure automatic Tai Dugan Teresa " Blood Pressure Position 01 sitting Ciales rdo Dugan Teresa " blood pressure, site [...] Teresa " Blood Pressure Position 01 sitting Ciales rdo Dugan Teresa " blood pressure, site #1 left arm Tai Dugan Teresa " temperature site oral Tai Contre reynold Teresa " height E&M 62 [in_i] Tai Contrer as Teresa " height in centimeters E&M 157.48 cm Leonar do Dugan Teresa oxygen saturation, oximetry 89 [...] a [place] blood pressure, diastolic 80 mm[Hg] Valentinesean Lucas " blood pressure, systolic 110 mm[Hg] Valentinesean Lucas " oxygen saturation, oximetry 89 % Kaleigh Lucas " pulse rate 126 /min Valentinesean Lucas " temperature E&M 98.6 [degF] Valentine Lucas " weight E&M 189.13 lbs. Valentine Lucas " weight in kilograms E&M 85.97 kg Valentine robertson " method used to obtain blood pressure automatic Valentine Lance " Blood Pressure Position 01 sitting Dakota Lucas " blood pressure, site #1 left arm Valentine H ailyn " temperature site oral Valentine medina " height E&M 62 [in_i] Valentine Lucas " height in centimeters E&M 157.48 cm Valentine Lucas oxygen saturation, oximetry 98 % Anthony Johnson " respiratory rate E&M 16 /min Sisialexander boyce " pulse rate 78 /min Sisialexander Obrien " temperature E&M 98.2 [degF] Sisialexander Obrien " blood pressure, diastolic 73 mm[Hg] Sisi Catie Obrien " blood pressure, systolic 96 mm[Hg] Sisi Catei Obrien " weight E&M 188.25 lbs. Sisi Catie Obrien " weight in kilograms E&M 85.57 kg Sisi Haddad Obrien " method used to obtain blood pressure automatic Sisi J Obrien " Blood Pressure Position 01 sitting Tamar Obrien " blood pressure, site #1 left arm Sisi Haddad Obrien " temperature site oral Sisi Obrien " height E&M 62 [in_i] Sisi Obrien " height in centimeters E&M 157.48 cm Sisi J Obrien pulse rate 120 /min Nkechi [place] " blood pressure, diastolic 79 mm[Hg] Azucen a [place] " blood pressure, systolic 120 mm[Hg] Nkechi [place] " respiratory rate E&M 20 /min Nkechi Phani quincy " method used to obtain blood pressure automatic Nkechi [place] " Blood Pressure Position 01 sitting Azuce [...] in centimeters E&M 157.48 cm Azucen a [place] blood pressure, diastolic 74 mm[Hg] Azucen a [...] height in centimeters E&M 157.48 cm Iesha robertson blood pressure, diastolic 60 mm[Hg] Azucen a [...] [place] " height E&M 62 [in_i] Nkechi [place] " height in centimeters E&M 157.48 cm [...] weight in kilograms E&M 62.27 kg Jo Leonard " height E&M 62 [in_i] Jo Leonard " height in centimeters E&M 157.48 cm [...] Lucas " blood pressure, systolic 86 mm[Hg] Valentinegee Lucas " temperature E&M 98.8 [degF] Valentinegee Lucas " height E&M 62 [in_i] Valentine Lucas " height in centimeters E&M 157.48 cm Valentinesean Lucas " oxygen saturation, oximetry 93 % Kaleigh aisha Lucas " pulse rate 111 /min Valentinesean Lucas " weight E&M 137 lbs. Valentine Lucas " weight in kilograms E&M 62.27 kg Valentine H ailyn " method used to obtain blood pressure manual Valentine Lucas " Blood Pressure Position 01 sitting Dakota sean Lucas " blood pressure, site #1 right arm Valentinegee robertson " temperature site temporal Valentine medina ALLERGIES Allergy Name Onset Date Reaction Criticality Status CODEINE High Criticality active PENICILLIN High Criticality active REASON FOR REFERRAL No Information Available RESULTS Date Observation Value Provider Reference Interpretation Loc ation Range rapid plasma reagin Non LinkLogic Non Reactive /22 antibody, serum Reactive " HIV-1RNA, serum, by <20 LinkLogic PCR, quantitative copies/mL " LDL cholesterol, 115 mg/dL LinkLogic 0-99 High serum " very low density 58 mg/dL LinkLogic 5-40 High lipoproteins " HDL cholesterol, 32 mg/dL LinkLogic >39 Low serum " triglyceride, 331 mg/dL LinkLogic 0-149 High serum, fasting " cholesterol, serum 205 mg/dL LinkLogic 100-199 High " alanine 15 1/L LinkLogic 0-32 aminotransferase (SGPT), serum " aspartate 14 1/L LinkLogic 0-40 aminotransferase (SGOT), serum " alkaline 93 1/L LinkLogic 39-117 phosphatase, serum " bilirubin, serum, <0.2 mg/dL LinkLogic 0.0-1.2 total " albumin/globulin 1.4 LinkLogic 1.2-2.2 ratio, serum " globulin, serum 2.8 LinkLogic 1.5-4.5 " albumin, serum 4.0 g/dL LinkLogic 3.8-4.9 " protein, total, 6.8 g/dL LinkLogic 6.0-8.5 serum " calcium, serum 9.2 mg/dL LinkLogic 8.7-10.3 " carbon dioxide, 27 mmol/L LinkLogic 20-29 venous blood " chloride, serum 97 mmol/L LinkLogic 96-106 " potassium, serum 4.1 mmol/L LinkLogic 3.5-5.2 " sodium, serum 139 mmol/L LinkLogic 134-144 " urea 15 LinkLogic 12-28 nitrogen/creatinine ratio, serum " eGFR if 102 LinkLogic >59 [place]serratian mL/min/((17 3/100).m2) " Estimated 88 LinkLogic >59 Glomerular mL/min/((17 Filtration Rate 3/100).m2) (calc) " creatinine, serum 0.74 mg/dL LinkLogic 0.57-1.00 " urea nitrogen, 11 mg/dL LinkLogic 8-27 blood " blood glucose, 178 mg/dL LinkLogic 65-99 High random " immature 1 % LinkLogic Not Estab. granulocytes, percentage of total cells, blood " basophil count, 0.0 LinkLogic 0.0-0.2 absolute x10E3/uL " Eosinophil Absolute 0.1 LinkLogic 0.0-0.4 Count X10E3/UL " monocyte count, 0.5 LinkLogic 0.1-0.9 blood, automated X10E3/UL " lymphocyte count, 1.3 LinkLogic 0.7-3.1 blood, automated X10E3/UL " Absolute 5.6 LinkLogic 1.4-7.0 Neutrophils X10E3/UL " basophils as 0 % LinkLogic Not Estab. percent of blood leukocytes " eosinophils as 1 % LinkLogic Not Estab. percent of blood leukocytes " monocytes as 6 % LinkLogic Not Estab. percent of blood leukocytes " lymphocytes as 17 % LinkLogic Not Estab. percent of blood leukocytes " neutrophils as 75 % LinkLogic Not Estab. percent of blood leukocytes " platelet count 194 LinkLogic 150-450 X10E3/UL " red blood cell 11.9 % LinkLogic 11.7-15.4 distribution width " mean corpuscular 35.3 G/DL LinkLogic 31.5-35.7 hemoglobin concentration, RBC " mean corpuscular 34.8 pg LinkLogic 26.6-33.0 High hemoglobin, RBC " mean corpuscular 99 fL LinkLogic 79-97 High volume, RBC " hematocrit, blood 40.5 % LinkLogic 34.0-46.6 " hemoglobin, blood 14.3 g/dL LinkLogic 11.1-15.9 " erythrocyte (RBC) 4.11 LinkLogic 3.77-5.28 count X10E6/UL " leukocyte count, 7.5 LinkLogic 3.4-10.8 blood X10E3/UL " CD4/CD8 ratio 1.14 LinkLogic 0.92-3.72 " T-suppressor cells 23.7 % LinkLogic 12.0-35.5 (CD8) as percent of blood lymphocytes " absolute CD8 308 LinkLogic 109-897 " T-helper cells 26.9 % LinkLog 30.8-58.5 Low (CD4) as percent of blood lymphocytes " T-helper cells 350 /UL LinkLogic [phone] Low (CD4) count rapid plasma reagin Non LinkLog Non Reactive /01 antibody, serum Reactive " hemoglobin A1C, 6.3 % LinkLog 4.8-5.6 High blood, as % of total hemoglobin " HIV-1RNA, serum, by 30 /mL [facility] PCR, quantitative " LDL cholesterol, 87 mg/dL [...] serum " eGFR if 110 LinkLogic >59 [place] mL/min/((17 3/100).m2) " Estimated 96 LinkLogic >59 [...] total hemoglobin " HIV-1RNA, serum, by <20 LinkLog PCR, quantitative copies/mL " LDL cholesterol, 94 [...] serum " eGFR if 100 LinkLogic >59 [place] mL/min/((17 3/100).m2) " Estimated 87 LinkLogic >59 [...] LinkLogic 109-897 " T-helper cells 28.4 % LinkLog 30.8-58.5 Low (CD4) as percent of blood lymphocytes " T-helper cells 454 /UL LinkLogic [phone] (CD4) count Quantiferon Gold TB Positive LinkLog Negative blood test for tuberculosis screening hepatitis C <0.1 LinkLogic 0.0-0.9 /07 antibody, serum " rapid plasma reagin Non LinkLogic Non Reactive antibody, serum Reactive " HIV-1RNA, serum, by 380 /mL LinkLog PCR, quantitative " LDL cholesterol, [...] serum " eGFR if 118 LinkLogic >59 [place] mL/min/((17 3/100).m2) " Estimated 102 LinkLogic >59 [...] [facility]Logic 109-897 " [facility]-helper cells 24.4 % [facility] Low (CD4) as percent of blood lymphocytes " T-helper cells 415 /UL LinkLogic [phone] (CD4) count rapid plasma reagin Non LinkLogic Non Reactive /11 antibody, serum Reactive " HIV-1RNA, serum, by <20 [facility] PCR, quantitative copies/mL " alanine 12 1/L [facility] aminotransferase (SGPT), serum " aspartate 9 [...] serum " eGFR if 115 LinkLogic >59 [place] mL/min/((17 3/100).m2) " Estimated 100 LinkLogic >59 [...] fasting " cholesterol, serum 127 mg/dL Link[facility] [id number] 1840/03 rapid plasma reagin Non LinkLogic Non Reactive [...] serum " eGFR if 113 LinkLogic >59 [place] mL/min/((17 3/100).m2) " Estimated 98 LinkLogic >59 [...] fasting " cholesterol, serum 119 mg/dL LinkLogic 167-235 0740/10 Quantiferon Gold TB Negative LinkLogic Negative blood test for tuberculosis screening Quantiferon Gold TB negative [facility] blood test for tuberculosis screening hepatitis C [...] serum " eGFR if 98 LinkLogic >59 [place] mL/min/((17 3/100).m2) " Estimated 85 LinkLogic >59 [...] serum " eGFR if 111 LinkLogic >59 [place] mL/min/((17 3/100).m2) " Estimated 96 LinkLogic >59 [...] volume, RBC " hematocrit, blood 41.3 % LinkLogic 34.0-46.6 " hemoglobin, blood 14.0 g/dL Link[facility]ic 11.1-15.9 " erythrocyte (RBC) 4.09 Link[facility]ic 3.77-5.28 count X10E6/UL " leukocyte count, 5.1 LinkLogic 3.4-10.8 blood X10E3/UL " CD4/CD8 ratio 0.85 LinkLogic 0.92-3.72 Low " T-suppressor cells 29.5 % Link[facility]ic 12.0-35.5 (CD8) as percent of blood lymphocytes " absolute CD8 413 Link[facility] 109-897 " T-helper cells 25.0 % [facility] 30.8-58.5 Low (CD4) as percent of blood lymphocytes " T-helper cells 350 /UL [facility] [phone] Low (CD4) count rapid plasma reagin Non LinkLogic Non Reactive /16 antibody, serum Reactive " HIV-1RNA, serum, by 50 /mL Link[facility] PCR, quantitative " LDL cholesterol, 63 mg/dL [...] serum " eGFR if 86 LinkLogic >59 [place] mL/min/((17 3/100).m2) " Estimated 74 LinkLogic >59 [...] antibody, serum Reactive " [place] [address] /mL LinkLog PCR, quantitative " LDL cholesterol, [...] serum " eGFR if 102 LinkLogic >59 [place] mL/min/((17 3/100).m2) " Estimated 89 LinkLogic >59 [...] serum " eGFR if 106 LinkLogic >59 [place] mL/min/((17 3/100).m2) " Estimated 92 LinkLogic >59 [...] serum " eGFR if 100 LinkLogic >59 [place] mL/min/((17 3/100).m2) " Estimated 87 LinkLogic >59 [...] LinkLogic [phone] (CD4) count Neisseria Negative LinkLogic / gonorrhoeae DNA probe " chlamydia DNA [...] serum " eGFR if 117 LinkLogic >59 [place] mL/min/((17 3/100).m2) " Estimated 102 LinkLogic >59 [...] serum " eGFR if 117 LinkLogic >59 [place] mL/min/((17 3/100).m2) " Estimated 102 LinkLogic >59 [...] [phone] Low (CD4) count human leukocyte negative [facility] antigen B57 Quantiferon Gold TB Negative LinkLogic [...] serum " eGFR if 113 LinkLogic >59 [place] mL/min/((17 3/100).m2) " Estimated 98 LinkLogic >59 [...] absolute value HIV-CMIA Reactive LinkLogic Non Reactive Abnormal /06 (Chemiluminescent Microparticle Immuno Assay) " HIV-1RNA, serum, [...] serum " eGFR if 105 LinkLogic >59 [place] mL/min/((17 3/100).m2) " Estimated 91 LinkLogic >59 [...] Date Vaccine Dose Lot Number Status completed completed [email or web address] completed flu vax completed flu vax completed flu vax completed hepbvax#3 1 mL [id number] completed hepbvax#2 1 mL [id number] completed hepbvax#1 1 mL [id number] completed pneumovax 0.5 mL [id number] completed HISTORY OF MEDICATION USE Medication Instructions Dates Provider Comments ZOLOFT 50 MG ORAL 1 by mouth Every Husam Nemandrew TABLET Morning BUSPIRONE HCL 5 MG ORAL 1 by mouth tid Husam Nemandrew TABLET ADVAIR DISKUS 250-50 1 puff twice daily Husam Vital MCG/DOSE INHALATION AEROSOL POWDER BREATH ACTIVATED VITAMIN D3 TABLET Husam Alvarezk TRADJENTA 5 MG ORAL 1 Every Day Husam Nemandrew TABLET LORATADINE 10 MG ORAL 1 By Mouth once a day Husam Godwin ek TABLET HUMALOG 100 UNIT/ML sliding scale Husam Vital SUBCUTANEOUS SOLUTION LACTULOSE 10 GM/15ML 2 tbsp (30 mL) three Husam Nemandrew ORAL SOLUTION times a day as needed for constipation BUPROPION HCL 75 MG 1 By Mouth Twice a Day - Husam Nemece k ORAL TABLET TRAMADOL HCL 50 MG ORAL 1 Three Times a Day Husam Citlali ek TABLET TRILEPTAL 150 MG ORAL 1 Twice a Day Husam Nemandrew TABLET RISPERDAL 1 MG ORAL 1 by mouth once a day Husam Nemdaviek TABLET LANTUS 100 UNIT/ML 24 U sc Every pm Husam Vital SUBCUTANEOUS SOLUTION GABAPENTIN 300 MG ORAL 1 by mouth three times Husam Estrella morales CAPSULE a day FANAPT 8 MG ORAL TABLET 1 Twice a Day - Husam Vital DEPAKOTE 250 MG ORAL 2 by mouth twice a day Husam Godwin ek TABLET DELAYED RELEASE BREO ELLIPTA 100-25 1 inhalation Every Day - Husam hopkins MCG/INH INHALATION AEROSOL POWDER BREATH ACTIVATED ASPIRIN 81 MG ORAL 1 by mouth every day Husam Vital TABLET DELAYED RELEASE MECLIZINE HCL 25 MG 1 by mouth 3 times a - Husam Vital ORAL TABLET day as needed for dizziness NICOTINE 21-14-7 - Husam Vital MG/24HR TRANSDERMAL KIT NAPROXEN 500 MG ORAL 1 by mouth twice a day - Husam Godwin ek TABLET as needed for pain OMEPRAZOLE CPDR - Husam Vital LIPITOR TABLET - Husam Vital BENZTROPINE MESYLATE Remy Perdomo TABLET SEROQUEL TABLET - Husam Vital DULOXETINE HCL CAPSULE - Husam Vital DELAYED RELEASE PARTICLES VENLAFAXINE HCL TABLET - Husam Vital TRIUMEQ 600-50-300 MG One tablet daily with Husam Godwin ek ORAL TABLET or without food SPIRIVA HANDIHALER 18 Inhale 1 cap Every Day Husam conway MCG INHALATION CAPSULE PROAIR HFA 108 (90 2 puffs every 4 - 6 - Husam Vital BASE) MCG/ACT hours as needed INHALATION AEROSOL SOLUTION SOCIAL HISTORY Date Observation Value Provider time of call 12/05/2020 11:45 AM Vasyl kolb tobacco use (cigarettes, Currently Husam adam cigar, chew, pipe) " sexual orientation Heterosexual Husam Vital " smoking, advice to quit Yes Husam morales " Exercise Program Referral T Husam fairchild " Weight Management T Husam Vital Counseling Provided " Nutrition intervention T Husam conway " drug use Previously Nkechi [place] " smoking status current every day smoker Nkechisharita [place] " alcohol use Previously Nkechi [place] " social history E&M . N Nkechi [place] ot homeless. Born in [place]. City: [place]. State: [place]. N ot employed. Gender of partner(s): male. Sexually Active: No. Sex at : female. " social history reviewed reviewed today Nkechi [place] E&M " assessment of health Limited Nkechi Phani quincy literacy ([facility] 2013 Standards, 3C10) " is there any chance that No Nkechi [place] you could be ? time of call 09/24/2020 2:27 PM Nadeen russell time of call 06/16/2020 1:54 PM Clarence Mcnamara tobacco use (cigarettes, Currently Nkechi [place] cigar, chew, pipe) " smoking status current every day smoker Nkechi [place] " social history E&M . N Nkechi [place] ot homeless. Born in [place] City: [place]. State: [place]. N ot employed. Gender of partner(s): male. Sexually Active: No. Sex at : female. " social history reviewed reviewed today Nkechi [place] E&M " Exercise Program Referral T Froilan [place] " Weight Management T Nkechisharita [place] Counseling Provided " Nutrition intervention Jamin robertson sexual orientation Heterosexual Husam Vital " smoking, advice to quit Yes Husam morales " assessment of health Limited Tai Co ntreras literacy ([facility] 2013 Teresa Standards, 3C10) " is there any chance that No Gayr o Dugan you could be ? Teresa " passive cigarette smoke No Tai Dugan exposure Teresa " if the patient is No Tai Contr eras using/has used a vaping Teresa item, Current, Former, Never Used, Not asked " drug use Previously Tai Contrer as Teresa " alcohol use Previously Tai Contrer as Teresa " tobacco use (cigarettes, Currently Gary o Dugan cigar, chew, pipe) Teresa " smoking status current every day smoker Gary o Dugan Teresa " social history E&M . N Tai Dugan ot homeless. Born in [facility]. [place] City: [place]. State: [place]. N ot employed. Gender of partner(s): male. Sexually Active: No. Sex at : female. " social history reviewed reviewed today Tai Dugan E&M Teresa " Exercise Program Referral T Leonar do Dugan Teresa " Weight Management T Tai Contr eras Counseling Provided " Nutrition intervention T Tai Dugan Teresa smoking, advice to quit Yes Husam Nem ecek " drug use Previously Tai Contrer as Teresa " alcohol use Previously Tai Contrer as Teresa " social history E&M . N Tai Dugan ot homeless. Born in [facility]. [place] City: [place]. State: [place]. N ot employed. Gender of partner(s): male. Sexually Active: No. Sex at : female. " social history reviewed reviewed today Tai Dugan E&M Teresa " assessment of health Limited Tai Co ntreras literacy ([facility] 2013a Standards, 3C10) " sexual orientation Heterosexual Tai Cont reras " is there any chance that No Gary o Dugan you could be ? " passive cigarette smoke No Tai Dugan exposure " smoking status current every day smoker Gary o Dugan Teresa " Exercise Program Referral T Leonar do Dugan Teresa " Weight Management T Tai Contr eras Counseling Provided " Nutrition intervention T Tai Dugan Teresa sexual orientation Heterosexual Husam Nemecek " smoking, advice to quit Yes Husam Nem ecek " assessment of health Limited Nkechi Phani quincy literacy ([facility] 2014 Standards, 3C10) " smoking status current every day smoker Nkechi [place] " drug use Previously Nkechi [place] " alcohol use Previously Nkechi [place] " social history E&M . N Nkechi [place] ot homeless. Born in [facility]. City: [place]. State: [place]. N ot employed. Gender of partner(s): male. Sexually Active: No. Sex at : female. " social history reviewed reviewed today Nkechi [place] E&M " Exercise Program Referral T Froialn [place] " Weight Management T Nkechijohn [place] Counseling Provided " Nutrition intervention T Nkechi robertson time of call 06/06/2019 3:18 PM Meka [place] sexual orientation Heterosexual Husam Nemecek " smoking, advice to quit Yes Husam Nem ecek " drug use Previously Valentine Lance " alcohol use Previously Valentine Lance " social history E&M . N Valentine Lucas ot homeless. Born in [facility]. City: [place]. State: [place]. N ot employed. Gender of partner(s): male. Sexually Active: No. Sex at : female. " social history reviewed reviewed today Valentine Gongora ailyn E&M " is there any chance that No Valentine Lucas you could be ? " assessment of health Limited Valentine Ohara andyenny literacy ([facility] 2014 Standards, 3C10) " Exercise Program Referral T Valentine Lucas " Weight Management T Valentine Hookhailey ez Counseling Provided " Nutrition intervention T Valentine Jose Carlos cook " passive cigarette smoke No Valentine Fransisca whitneyailyn exposure " smoking status current every day smoker Valentine Lucas time of call 12/25/2018 10:52 AM Phi Caleroed a sexual orientation Heterosexual Husam Nemecek " smoking, advice to quit Yes Husam Nem ecek " Exercise Program Referral T Husam fairchild " Weight Management T Husam Nemandrew Counseling Provided " Nutrition intervention T Husam conway " drug use Previously Sisi Obrien " alcohol use Previously Sisi Obrien " social history E&M . N Sisi Obrien ot homeless. Born in [place] City: [place]. State: [place]. N ot employed. Gender of partner(s): male. Sexually Active: No. Sex at : female. " social history reviewed reviewed today Sisi Obrien E&M " passive cigarette smoke No Sisi Obrien exposure " smoking status current every day smoker Sisi Obrien sexual orientation Heterosexual Husam Vital " smoking, advice to quit Yes Husam De La Rosa ecek " drug use Previously Nkechi [place] " alcohol use Previously Nkechi [place] " social history E&M . N Nkechi [place] ot homeless. Born [place] City[place]. State: [place]. N ot employed. Gender of partner(s): male. Sexually Active: No. Sex at : female. " social history reviewed reviewed today Nkechi [place] E&M " passive cigarette smoke Yes Nkechi [place] exposure " smoking status current every day smoker Nkechi [place] " assessment of health Limited Nkechi Phani quincy literacy ([facility] 2014 Standards, 3C10) " Exercise Program Referral T Azucen a [place] " Weight Management T Nkechi [place] Counseling Provided " Nutrition intervention T Nkechi D robertson smoking, advice to quit Yes Husam De La Rosa ecek " sexual orientation Heterosexual Husam Vital " passive cigarette smoke No Nkechi [place] exposure " assessment of health Limited Nkechi Phani quincy literacy ([facility] 2014 Standards, 3C10) " smoking status current every day smoker Nkechi [place] " drug use Previously Nkechi [place] " alcohol use Previously Nkechi [place] " social history E&M . N Nkechi [place] ot homeless. [place] City[place]. State: [place]. N ot employed. Gender of partner(s): male. Sexually Active: No. Sex at : female. " social history reviewed reviewed today Nkechi [place] E&M " Exercise Program Referral T Azucen a [place] " Weight Management T Nkechi [place] Counseling Provided " Nutrition intervention T Nkechi D robertson smoking, advice to quit Yes Husam Nem ecek " drug use Previously Nkechi [place] " alcohol use Previously Nkechi [place] " cigarettes, number smoked 5-6 Azucen a [place] per day " social history E&M . N Nkechi [place] ot homeless. [place] City[place]. State: [place]. N ot employed. Gender of [...] of health Adequate Nkechi Phani quincy literacy ([facility] 2014 Standards, 3C10) social history E&M . N Husam Vital ot homeless. Born in [facility]. City: [place]. State: [place]. N ot employed. Gender of partner(s): male. Sexually Active: No. Sex at : female. " social history reviewed reviewed today Husam Nem ecek E&M " smoking, advice to quit Yes Husam Nem ecek " Exercise Program Referral T Husam fairchild " Weight Management T Husam Vital Counseling Provided " Nutrition intervention T Husam conway " drug use Previously [place] Lance " alcohol use Previously [place] Lance " cigarettes, number smoked 10 a day [place] H ailyn per day " smoking status current every day smoker Iesha He rnandez " sexual orientation Heterosexual Homesteadadam Hebert z " passive cigarette smoke No Homestead Her nandez exposure " assessment of health Adequate Husam hopkins literacy ([facility] 2014 Standards, 3C10) smoking, advice to quit Yes Husam Nem ecek " drug use Previously Nkechi [place] " alcohol use Previously Nkechi [place] " social history E&M . N Nkechi [place] ot homeless. Born [place] City[place]. State: [place]. N ot employed. Gender of partner(s): male. Sexually Active: No. Sex at : female. " social history reviewed reviewed today Nkechi [place] E&M " is there any chance that No Nkechi [place] you could be ? " sexual orientation Heterosexual Nkechi Davil a " smoking status current every day smoker Nkechi [place] " assessment of health Adequate Nkechi Phani quincy literacy ([facility] 2014 Standards, 3C10) " Exercise Program Referral T Azucen sean [place] " Weight Management T Nkechi [place] Counseling Provided " Nutrition intervention T Nkechi robertson sexual orientation Heterosexual Husam Vital " smoking, advice to quit Yes Husam Nem ecek " drug use Previously Nkechi [place] " alcohol use Previously Nkechi [place] " social history E&M . N Nkechi [place] ot homeless. [place]. State: [place]. N ot employed. Gender of [...] Provided " Nutrition intervention T Nkechi robertson chewing tobacco use No Malu Hu rst " cigar use No Malu Hurst " cigarette use Yes Malu Hurst " tobacco use (cigarettes, Currently Katheri ne Hurst cigar, chew, pipe) " smoking status current every day smoker Katheri ne Hurst sexual orientation Heterosexual Husam Vital " smoking, advice to quit Yes Husam morales " Exercise Program Referral Jamin fairchild " Weight Management T Husam Vital Counseling Provided " Nutrition intervention Jamin conway " alcohol use Previously Nkechi [place] " social history E&M . N Nkechi [place] ot homeless. [place] City[place]. State: [place]. N ot employed. Gender of partner(s): male. [...] [place] ot homeless. [place] City[place]. State: [place]. N ot employed. Gender of [...] current every day smoker Nkechi [place] drug use Previously Olenasylvester Leonard " alcohol use Previously Jo Valle " cigarettes, number smoked 1-2 Channi n Leonard per day " smoking status current every day smoker Jo Valle sexual orientation Heterosexual Husam Vital " social history E&M . N Husam Vital ot homeless. Born in [facility]. City: [place]. State: [place]. N ot employed. Gender of partner(s): male. Sexually Active: No. Sex at : female. " social history reviewed reviewed today Husam morales E&M " passive cigarette smoke No Nkechi [place] exposure " smoking status current every day smoker Nkechi [place] sexual orientation Heterosexual Husam Vital " What type of drug was used cocaine Husam Zahraa " social history E&M . N Valentinesean Lucas ot homeless. Born in [facility]. City: [place]. State: [place]. N ot employed. Gender of partner(s): male. Sexually Active: No. Sex at : female. " drug use Previously Husam Vital " alcohol use Previously Husam Vital " sex at female Valentine Lucas " patient considered to be No Valentine Lance homeless " social history reviewed reviewed today Valentine H ailyn E&M " passive cigarette smoke No Valentine H ailyn exposure " cigarettes, number smoked 5-6 Valentine Lance per day " smoking status current every day smoker Valentine Lance FUNCTIONAL STATUS No Information Available MENTAL STATUS Date Observation Value Provider assessment of mood and no depression, anxiety, J ohn Nemecek affect E&M or agitation " Generalized Anxiety Disorder 0 Debbie youth program director [place] Questionnaire - Question 2 " Generalized Anxiety Disorder 0 Debbie youth program director [place] Questionnaire - Question 1 assessment of [...] 2 " Generalized Anxiety Disorder 0 Debbie youth program director [place] Questionnaire - Question 1 assessment of mood and no depression, anxiety, J ohn Nemecek affect E&M or agitation " Generalized Anxiety Disorder 0 Debbie ro [place] Questionnaire - Question 2 " Generalized Anxiety Disorder 0 Debbie ro [place] Questionnaire - Question 1 assessment of mood and no depression, anxiety, J ohn Nemecek affect E&M or agitation " Generalized Anxiety Disorder 0 Debbie youth program director [place] Questionnaire - Question 2 " Generalized [...] agitation " Generalized Anxiety Disorder 0 Debbie youth program director [place] Questionnaire - Question 2 " Generalized Anxiety Disorder 0 Debbie ro [place] Questionnaire - Question 1 assessment of mood and no depression, anxiety, J ohn Nemecek affect E&M or agitation " Generalized Anxiety Disorder 0 Debbie ro [place] Questionnaire - Question 2 " Generalized Anxiety Disorder 0 Debbie youth program director [place] Questionnaire - Question 1 assessment of mood and no depression, anxiety, J ohn Nemecek affect E&M or agitation " Generalized Anxiety Disorder 1 Debbie youth program director [place] Questionnaire - Question 2 " Generalized [...] / Coverage type Covered part y ID *Arthur White 0-100% Other [id number] Sliding Fee - Cat 1 Commercial insurance [employer] [id number] Sliding Fee - Cat 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 *Arthur White 0-100% Other Sliding Fee - Cat 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 *Arthur White 0-100% Other Sliding Fee - Cat 1 Commercial insurance [employer] [id number] *Arthur White 0-100% Other [id number] Expanded Primary Health [facility] [place] Other [id number] Sliding Fee Scale Commercial insurance [employer] [id number] [facility] Medicaid [id number] Arthur White up to 300% Other [id number] ADVANCE DIRECTIVES Name Date DISCUSSED - NO DECISION MADE TREATMENT PLAN Date Name HCV Antibody RPR, Rfx Qn RPR/Confirm TP [...] Level III Primary Care Medical Case Ma nagement Est Patient Detailed - [id number] Primary Care Service Linkage Ofc Vst, Est [...]
[2021-01-03 10:30] LABS: Absolute Lymphocytes (CBC) 1.1 K/uL (0.7-4.9); Basophils % 0.6 % (0-1.3); Hematocrit 40.9 % (36.0-45.0); MPV 8.5 fL (7.6-11.3); RBC Red Blood Cell Count 4.04 M/uL (3.86-4.86)
--- NOTE | 2021-01-03 10:41 | RAD REPORT ---
EXAM DESCRIPTION: RAD - Chest Single View - 01/03/2021 10:23 am CLINICAL HISTORY: Cough;COPD COMPARISON: Portable July 2020 TECHNIQUE: AP portable chest image was obtained 01/03/2021 10:23 am . FINDINGS: Chronic interstitial lung disease is evident. No peripheral mass or consolidation. No fail ure or volume overload. Pattern is similar to the comparison. Heart and vasculature are normal. No measurable pleural effusion and no pneumothorax. No acute bony abnormality seen. No acute aortic findings suspected. IMPRESSION: No acute cardiopulmonary process. No significant change from comparison study.
[2021-01-03 10:45] LABS: Potassium 4.3 mmol/L (3.5-5.1)
--- NOTE | 2021-01-03 10:53 | EDPHYS ---
Physician Documentation [facility] Name: Lucia Arias Age: 60 yrs Sex: Female : 1960 Arrival Date: 01/03/2021 Time: 09:58 Bed 19 Private MD: ED Physician Vern Kidd HPI: 01/03 10:15 This 60 yrs old Female presents to ER via EMS with complaints of doesn't feel rn well. 10:15 Reports "doesn't feel well". UNable to describe anymore than that. She reports hasn't rn felt well for 2 weeks, [facility] reports 2 days. is days days post 2nd moderna vaccine shot, reports fatigue, chronic cough, and mild dysuria. No chest pain/sob/abd pain/focal weakness or numbness.. Onset: The symptoms/episode began/occurred at an unknown time. Severity of symptoms: At their worst the symptoms were mild in the emergency department the symptoms are unchanged. It is unknown whether or not the patient has had similar symptoms in the past. The patient has not recently seen a physician. Historical: - Allergies: 10:06 Codeine; jd3 10:06 Demerol; jd3 10:06 PENICILLINS; jd3 10:06 Sulfa (Sulfonamide Antibiotics); jd3 - PMHx: 10:06 HIV; UTI; MUSCLE WEAKNESS; Pneumonia; Hyperlipidemia; pulmonary edema; LACK OF jd3 COORDINATION; Diabetes - IDDM; GERD; Anxiety; ATHEROSCLEROSIS; Schizophrenia; Depression; Angina; vitamin d deficiency; COPD; Difficulty walking; CAD; Cellulitis; neuropathy; Bipolar disorder; Chronic pain; - Immunization history:: Adult Immunizations up to date. - Social history:: Smoking status: Patient reports the use of cigarette tobacco products, smokes one-half pack cigarettes per day. - Family history:: not pertinent. - Hospitalizations: : No recent hospitalization is reported. ROS: 10:15 Constitutional: Negative for fever, chills, and weight loss, Eyes: Negative for injury, rn pain, redness, and discharge, Neck: Negative for injury, pain, and swelling, Cardiovascular: Negative for chest pain, palpitations, and edema, Respiratory: Negative for shortness of breath, wheezing, and pleuritic chest pain, Abdomen/GI: Negative for abdominal pain, nausea, vomiting, diarrhea, and constipation, Back: Negative for injury and pain, : Negative for injury, bleeding, discharge, and swelling, MS/Extremity: Negative for injury and deformity, Skin: Negative for injury, rash, and discoloration, Neuro: Negative for headache, numbness, tingling, and seizure. Exam: 10:15 Constitutional: This is a well developed, well nourished patient who is awake, alert, rn and in no acute distress. Head/Face: Normocephalic, atraumatic. ENT: dry MM Neck: Trachea midline, no masses palpated, and no cervical lymphadenopathy. Supple, full range of motion without nuchal rigidity, or vertebral point tenderness. No Meningismus. Cardiovascular: Regular rate and rhythm. No pulse deficits. Respiratory: No increased work of breathing, no retractions or nasal flaring. Abdomen/GI: soft, nontender Skin: Warm, dry MS/ Extremity: Pulses equal, no cyanosis. Neurovascular intact. Full, normal range of motion. Equal circumference. Neuro: Awake and alert, GCS 15, oriented to person, place, time, and situation. Vital Signs: 10:06 BP 103 / 72; Pulse 95; Resp 17 S; Temp 98.7(TE); Pulse Ox 96% on R/A; Weight 94.35 kg jd3 (R); Height 5 ft. 2 in. (157.48 cm) (R); Pain 5/10; 11:11 BP 111 / 71; Pulse 88; Resp 17 S; Pulse Ox 95% on R/A; jd3 12:02 BP 100 / 42; Pulse 87; Resp 16 S; Pulse Ox 95% on R/A; jd3 12:47 BP 107 / 61; Pulse 88; Resp 17 S; Pulse Ox 95% on R/A; jd3 10:06 Body Mass Index 38.04 (94.35 kg, 157.48 cm) jd3 MDM: 09:59 Patient medically screened. rn 10:52 Differential Diagnosis UTI, dehydration. Data reviewed: vital signs, nurses notes, component lab tech test result(s), radiologic studies, plain films, and as a result, I will discharge patient. Counseling: I had a detailed discussion with the patient and/or guardian regarding: the historical points, exam findings, and any diagnostic results supporting the discharge/admit diagnosis, lab results, radiology results, the need for outpatient follow up, to return to the emergency department if symptoms worsen or persist or if there are any questions or concerns that arise at home. Special discussion: I discussed with the patient/guardian in detail that at this point there is no indication for admission to the hospital. It is understood, however, that if the symptoms persist or worsen the patient needs to return immediately for re-evaluation. 01/03 10:01 Order name: CBC with Diff; Complete Time: 10:42 rn 01/03 10:01 Order name: Basic Metabolic Panel; Complete Time: 10:50 rn 01/03 10:01 Order name: Urine Microscopic Only 01/03 10:30 Order name: Glucose, Ancillary Testing; Complete Time: 10:42 EDSD 01/03 10:49 Order name: Urine Dipstick--Ancillary (enter results) 01/03 10:52 Order name: Urine Culture 01/03 10:01 Order name: IV Start; Complete Time: 10:41 rn 01/03 10:01 Order name: Urine Dipstick-Ancillary (obtain specimen); Complete Time: 10:41 01/03 10:01 Order name: XRAY Chest (1 view); Complete Time: 10:42 01/03 10:03 Order name: Glucose Level; Complete Time: 10:41 rn 01/03 10:03 Order name: EKG; Complete Time: 10:03 01/03 10:52 Order name: Urine Culture [facility] 01/03 10:03 Order name: EKG - Nurse/Tech; Complete Time: 10:41 rn Administered Medications: 10:46 Drug: NS 0.9% 500 ml Route: IV; Rate: bolus; Site: right antecubital; jd3 11:40 Follow up: Response: No adverse reaction; IV Status: Completed infusion; IV Intake: jd3 500ml 11:07 Drug: Cipro 400 mg Volume: 200 ml; Route: IVPB; Infused Over: 60 mins; Site: right jd3 antecubital; 12:48 Follow up: Response: No adverse reaction; IV Status: Completed infusion; IV Intake: jd3 200ml Disposition: 01/03/21 10:53 Discharged to Home. Impression: Urinary tract infection, site not specified. - Condition is Stable. - Discharge Instructions: Urinary Tract Infection, Adult. - Prescriptions for Cipro 500 mg Oral Tablet - take 1 tablet by ORAL route every 12 hours for 10 days; 20 tablet. - Medication Reconciliation Form, Thank You Letter, Antibiotic Education, Prescription Opioid Use form. - Follow up: Private Physician; When: As needed; Reason: Recheck today's complaints, Re-evaluation by your physician. - Problem is new. - Symptoms have improved. Signatures: Dispatcher [employer] EDMS Vern Kidd MD MD rn Davies, Jonathon, RN RN Rachel Quiñones RN RN zb Corrections: (The following items were deleted from the chart) 13:20 10:53 01/03/2021 10:53 Discharged to Home. Impression: Urinary tract infection, site zb not specified. Condition is Stable. Forms are Medication Reconciliation Form, Thank You Letter, Antibiotic Education, Prescription Opioid Use. Follow up: Private Physician; When: As needed; Reason: Recheck today's complaints, Re-evaluation by your physician. Problem is new. Symptoms have improved. rn
--- NOTE | 2021-01-03 10:53 | ER ---
Nurse's Notes [facility] Name: Lucia Arias Age: 60 yrs Sex: Female : 1960 Arrival Date: 01/03/2021 Time: 09:58 Bed 19 Private MD: Diagnosis: Urinary tract infection, site not specified Presentation: 01/03 10:01 Chief complaint: EMS states: "pt called EMS for 'not feeling right.' she is not jd3 reporting anything in specific just that she is just having generalized malaise. it was reported to us that she did have her 2 dose of her COVID vaccine 3 days ago.". Coronavirus screen: At this time, the client does not indicate any symptoms associated with coronavirus-19. Ebola Screen: Patient negative for fever greater than or equal to 101.5 degrees Fahrenheit, and additional compatible Ebola Virus Disease symptoms. Initial Sepsis Screen: Does the patient meet any 2 criteria? No. Patient's initial sepsis screen is negative. Does the patient have a suspected source of infection? No. Patient's initial sepsis screen is negative. Risk Assessment: Do you want to hurt yourself or someone else? Patient reports no desire to harm self or others. Onset of symptoms was December 28, 2020. Care prior to arrival: Glucose check: 178. Transition of care: patient was received from another setting of care (long[facility] facility[facility]. 10:01 Method Of Arrival: EMS: [facility] jd3 10:01 Acuity: LATONYA 3 jd3 Historical: - Allergies: 10:06 Codeine; jd3 10:06 Demerol; jd3 10:06 PENICILLINS; jd3 10:06 Sulfa (Sulfonamide Antibiotics); jd3 - PMHx: 10:06 HIV; UTI; MUSCLE WEAKNESS; Pneumonia; Hyperlipidemia; pulmonary edema; LACK OF jd3 COORDINATION; Diabetes - IDDM; GERD; Anxiety; ATHEROSCLEROSIS; Schizophrenia; Depression; Angina; vitamin d deficiency; COPD; Difficulty walking; CAD; Cellulitis; neuropathy; Bipolar disorder; Chronic pain; - Immunization history:: Adult Immunizations up to date. - Social history:: Smoking status: Patient reports the use of cigarette tobacco products, smokes one-half pack cigarettes per day. - Family history:: not pertinent. - Hospitalizations: : No recent hospitalization is reported. Screenin:08 Abuse screen: Denies threats or abuse. Nutritional screening: No deficits noted. jd3 Tuberculosis screening: No symptoms or risk factors identified. Fall Risk Ambulatory Aid- None/Bed Rest/Nurse Assist (0 pts). Gait- Normal/Bed Rest/Wheelchair (0 pts) Mental Status- Oriented to own ability (0 pts). Total Tello Fall Scale indicates No Risk (0-24 pts). Assessment: 10:06 General: Appears in no apparent distress. comfortable, Behavior is calm, cooperative, jd3 appropriate for age. Pain: Complains of pain in abdomen Quality of pain is described as aching, crampy. Neuro: Level of Consciousness is awake, alert, obeys commands, Oriented to person, place, time, situation. Cardiovascular: Denies chest pain, Capillary refill < 3 seconds Patient's skin is warm and dry. Respiratory: Airway is patent Respiratory effort is even, unlabored, Respiratory pattern is regular, symmetrical, Denies cough, shortness of breath. GI: Abdomen is round Abd is soft and non tender X 4 quads. Reports diarrhea. : No signs and/or symptoms were reported regarding the genitourinary system. EENT: No signs and/or symptoms were reported regarding the EENT system. Derm: Skin is intact, Skin is dry, Skin is normal, Skin temperature is warm. Musculoskeletal: Circulation, motion, and sensation intact. Range of motion: intact in all extremities. 11:10 Reassessment: Patient appears in no apparent distress at this time. Patient and/or d3 family updated on plan of care and expected duration. Pain level reassessed. Patient is alert, oriented x 3, equal unlabored respirations, skin warm/dry/pink. discharge pending finishing IV antibiotics. 12:01 Reassessment: Patient appears in no apparent distress at this time. No changes from jd3 previously documented assessment. Patient and/or family updated on plan of care and expected duration. Pain level reassessed. Patient is alert, oriented x 3, equal unlabored respirations, skin warm/dry/pink. Patient states feeling better. 12:46 Reassessment: Patient appears in no apparent distress at this time. Patient and/or d3 family updated on plan of care and expected duration. Pain level reassessed. Patient is alert, oriented x 3, equal unlabored respirations, skin warm/dry/pink. Report given to Yomaira at [facility] for discharge home. Yomaira reporting no transportation on weekends, charge nurse notified. Patient states feeling better. 12:48 Reassessment: EMS to pick pt up to take her back to [facility]. jd3 Vital Signs: 10:06 BP 103 / 72; Pulse 95; Resp 17 S; Temp 98.7(TE); Pulse Ox 96% on R/A; Weight 94.35 kg jd3 (R); Height 5 ft. 2 in. (157.48 cm) (R); Pain 5/10; 11:11 BP 111 / 71; Pulse 88; Resp 17 S; Pulse Ox 95% on R/A; jd3 12:02 BP 100 / 42; Pulse 87; Resp 16 S; Pulse Ox 95% on R/A; jd3 12:47 BP 107 / 61; Pulse 88; Resp 17 S; Pulse Ox 95% on R/A; jd3 10:06 Body Mass Index 38.04 (94.35 kg, 157.48 cm) jd3 ED Course: 09:58 Patient arrived in ED. iw 09:59 Vern Kidd MD is Attending Physician. rn 10:01 Federico Cheng RN is Primary Nurse. jd3 10:03 Triage completed. jd3 10:06 Arm band placed on. jd3 10:08 Patient has correct armband on for positive identification. Bed in low position. Call jd3 light in reach. Side rails up X2. Pulse ox on. NIBP on. 10:23 XRAY Chest (1 view) In Process Unspecified. EDMS 10:41 Inserted saline lock: 20 gauge in right antecubital area, using aseptic technique. jd3 Blood collected. 12:46 No provider procedures requiring assistance completed. jd3 13:30 IV discontinued, intact, bleeding controlled, No redness/swelling at site. Pressure jd3 dressing applied. Administered Medications: 10:46 Drug: NS 0.9% 500 ml Route: IV; Rate: bolus; Site: right antecubital; jd3 11:40 Follow up: Response: No adverse reaction; IV Status: Completed infusion; IV Intake: jd3 500ml 11:07 Drug: Cipro 400 mg Volume: 200 ml; Route: IVPB; Infused Over: 60 mins; Site: right jd3 antecubital; 12:48 Follow up: Response: No adverse reaction; IV Status: Completed infusion; IV Intake: jd3 200ml Intake: 11:40 IV: 500ml; Total: 500ml. jd3 12:48 IV: 200ml; Total: 700ml. jd3 Outcome: 10:53 Discharge ordered by . rn 13:20 Patient left the ED. zel 13:20 Discharged to care home. Report called to [facility] jd3 13:20 Condition: stable 13:20 Discharge instructions given to patient, care home, Instructed on discharge instructions, follow up and referral plans. medication usage, Demonstrated understanding of instructions, follow-up care, medications, Prescriptions given X 1. Signatures: Dispatcher [employer] EDAnkita Leyva RN RN iw Nieto, Roman, MD MD rn Davies, Jonathon, RN RN jd3 Brown, Zipporah, RN RN zb Corrections: (The following items were deleted from the chart) 10:08 10:01 Chief complaint: EMS states: "pt called EMS for 'not feeling right.' she is not jd3 reporting anything in specific just that she is just having generalized malaise." jd3 12:49 12:46 Reassessment: Report given to Yomaira at [facility] for discharge home. Yomaira kelly reporting no transportation on weekends, charge nurse notified. jd3
[2021-01-03] MEDS ORDERED: NA CHLORIDE 0.9% 500 ML ONE (10:58)
[2021-01-03] MEDS ORDERED: CIPROFLOXACIN 400mg IV 400 MG/200 ML BAG IV ONE (11:17)
[2021-01-03 11:18] LABS: Urine Bacteria LOADED /HPF (<20); Urine RBC <5 /HPF (NONE SEEN)
[2021-01-03 11:25] LABS: Urine Blood TRACE (NEG); Urine Glucose TRACE (NEG); Urine Protein 1+ (NEG); Urine pH 6.5 (5.0-7.0)
[2021-01-03 13:24] VITALS: TEMP 98.7
[2021-01-03 13:25] VITALS: O2SAT 95
[2021-01-03 13:27] VITALS: BP 107/61
== END 2021-01-03 13:20 | disposition home or self-care (01) ==
LOC: ER 09:54
DX: N39.0 Urinary tract infection, site not specified (principal); F17.210 Nicotine dependence, cigarettes, uncomplicated; Z21 Asymptomatic human immunodeficiency virus [HIV] infection status; Z88.0 Allergy status to penicillin; Z88.2 Allergy status to sulfonamides; Z88.5 Allergy status to narcotic agent
CPT/HCPCS: 96365; 93005; 87088; 85025; 87086; 80048; 36415; 82947; 87077; 87186; 71045; 99284; 96366; J7040; J0744; 81003; 81015

== ENCOUNTER 2021-01-26 16:09 | Emergency (ER) | payer OTHER ==
--- OUTSIDE RECORDS SUMMARY | 2021-01-26 16:22 | XMS REPORT | Continuity of Care Document ---
:1960 Author Organization [facility] t Address [address] [place] [address] Care Team Providers Name Role Phone Emerald Attending Clinician Unavailable Zahraa Attending Clinician [phone] Nan Attending Clinician Unavailable Manav Attending Clinician [...] Rosas Attending Clinician Unavailable Rosas Attending Clinician [phone] Juan A Attending Clinician [phone] Danish Attending Clinician Unavailable Ankit Cooper Attending Clinician Unavailable Bethel Attending Clinician Unavailable Tessa Attending Clinician Unavailable Hu Attending Clinician Unavailable Rakesh Attending Clinician Unavailable Bethel Attending Clinician Unavailable Raymundo Attending Clinician Unavailable Lance Attending Clinician Unavailable Ashutosh Rae Attending Clinician Unavailable Jennifer Attending Clinician [phone] Oliver Attending Clinician Unavailable Ángel Attending Clinician Unavailable Bolivar Attending Clinician Unavailable Michael Attending Clinician [phone] Kian Attending Clinician Unavailable Saman Attending Clinician Unavailable Blaine Attending Clinician Unavailable Tera Attending Clinician Unavailable Conor Attending Clinician [phone] Yoel Attending Clinician Unavailable Marilee Attending Clinician [phone] Leonard Attending Clinician [phone] Gentry Attending Clinician Unavailable Ed Attending Clinician Unavailable Bridger Attending Clinician [phone] Priscilla Attending Clinician Unavailable Rubina Attending Clinician [phone] Wozencraft Attending Clinician Unavailable Nemecek Unavailable [phone] Payers Payer Name Policy Type Policy Number Effective Date Expiration Date S ariane Sliding Fee - CI [id number] 2019 2020 [facility] 1 00:00:00 00:00:00 [facility] Sliding Fee - 11 [id number] 2019 2019 [facility] 1 00:00:00 00:00:00 [facility] Sliding Fee - [id number] 2016 2020 [facility] 1 00:00:00 00:00:00 [facility] Sliding Fee - 11 [id number] 2016 2017 [facility] 1 00:00:00 00:00:00 [facility] Sliding Fee - CI [id number] 2016 2017 [facility] 1 00:00:00 00:00:00 [facility] Sliding Fee - 11 [id number] 2015 2017 [facility] 1 00:00:00 00:00:00 [facility] Problems Condition Condition Condition Status Onset Resolution Last Treating Co mments Source Name Details Category Date Date Treatment Clinician Date NONSPEC Condition Active 2020-02-07 Abel [facility] RXN CMI 3-12 10:56:38 Husam Lassiter MSR G-IFN 00:00: ty ANTIG RSPN 00 Health NO ACT TB DIZZINESS Condition Active 2017-10-13 Abel Vital 8 09:19:20 Husam Lassiter 00:00: ty 00 Health Hyperlipid Condition Active 2020-02-07 Abel [facility]ital emia 7-21 10:44:35 Husam Lassiter 00:00: ty 00 Health Preventive Condition Active 2015-112017-10-13 Antoniokellie [facility] 2-06 09:19:20 Husam Lassiter care 00:00: ty 00 Health Screening, Condition Active 2017-10-13 Abel [facility]ital colon 8 09:19:20 Husam Lassiter cancer 00:00: ty 00 Health Hip Condition Active 2016-07-07 Sarabjit Vital egacy arthralgia 03-24 08:45:03 Husam dickerson 00:00: ty 00 Health COPD Condition Active 2020-02-07 Sarabjit Vital egacy - 10:44:35 Husam Lassiter 00:00: ty 00 Health FLU Diagnosis Active 2010-112011-11-16 Mem oria SYMPTOMS 01-17 12:41:00 l FLU 00:00: [place] SYMPTOMS 00 Active 11/16/2011 [facility] Closed Closed Problem Active [facility] fracture [...] al junction, junction, initial initial encounter encounter HIV Problem Active 2020-10-19 Memor ia positive 01:22:40 l (finding) HIV Oscar positive (finding) Active Problem 10/19/2020 [facility] Morbid Problem Active 2020-10-19 Memor ia obesity 01:22:40 l (disorder) Morbid Herm nolvia obesity (disorder) Active Problem 10/19/2020 [facility] Schizophre Problem Active 2020-10-19 M emoria bhupendra 01:22:40 l (disorder) [place] n Schizophre bhupendra (disorder) Active Problem 10/19/2020 [facility] Pain, Pain, Diagnosis Active [facility], Memoria right right l Outpati ent Clinics Tremor Problem Active 2020-10-19 Memor ia (finding) 01:22:40 l Tremor [place] (finding) Active Problem 10/19/2020 [facility] Diabetes Problem Active 2020-10-19 Mem oria mellitus 01:22:40 l (disorder) Diabetes He rmann mellitus (disorder) Active Problem 10/19/2020 [facility] Closed Closed Diagnosis Active [facility] fracture [...] [facility] 04-19 Clear 00:00: [place] 00 [facility] penicill DA Active [facility] in V 04-19 Clear 00:00: [place] 00 [facility] CODEINE Drug Active High [facility] allergy Criticali 03-18 Commun i (disorde ty 00:00: ty r) 00 Health PENICILL Drug Active High [facility] IN allergy Criticali 03-18 Commun i (disorde ty 00:00: ty r) 00 Health penicill Adverse Active Info Not [facility] codeine Adverse Active Info Not [facility] Reaction Available [facility] ent Clinics codeine codeine Active Memoria [facility] penicill penicill Active Memori a in in [facility] Social History Social Habit Start Date Stop Date Quantity Comments Source time of call 2020-12-05 2020-12-05 12/05/2020 11:45 AM [facility] Community 11:45:23 11:45:23 Health sexual orientation 2020-12-02 2020-12-02 Heterosexual [facility] 10:39:40 10:39:40 Health social history E&M 2020-12-02 2020-12-02 . Not [place] [facility] 10:39:40 10:39:40 homeless. Born in [facility]. City: [place]. State: [place]. Not employed. Gender of partner(s): male. Sexually [...] Comm unity health literacy 10:39:40 10:39:40 Health (NCQA [facility] 2014 Standards, 3C10) passive cigarette 2020-02-07 2020-02-07 [...] What type of drug 2015-03-18 2015-03-18 cocaine [facility] was used 10:06:41 10:06:41 Health sex at 2015-03-18 2015-03-18 female [facility] nity 10:06:41 10:06:41 Health patient considered 2015-03-18 2015-03-18 No [facility] to be homeless 10:06:41 10:06:41 Health Smoking Status Start Date Stop Date Source Social History 2020-10-16 20:46:22 Sarthak guy Medications Ordered Filled Start Stop Current Ordering Indication Dosage Frequency Signature Comments Components Source Medication Medication Date Date Medication? Clinician (SIG) Name Name CARLAJamin Yes 1{Table 1xD 1 by mouth Le [...] MCG/DOSE AEPB VITAMIN D3 Yes [facility] (CHOLECALCI -06 Communi FEROL TABS) 00:00: ty TABS 00 Health TRADJENTA Yes 1{Table 1xD 1 Every [place] (LINAGLIPTI 1-06 t} Day Communi N) 5 MG 00:00: ty TABS 00 Health (LORATADINE Yes 1{Table 1xD 1 By Mouth [facility] ) 10 MG 1-06 t} once a day Commun i TABS 00:00: ty 00 Health HUMALOG Yes sliding [facility] (INSULIN -06 scale Communi LISPRO) 100 00:00: ty UNIT/ML 00 Health SOLN (LACTULOSE) Yes 2 tbsp (30 [facility] 10 GM/15ML 1-06 mL) three Comm uni SOLN 00:00: times a ty 00 day as Health needed for constipati on Fluticasone 2019-11 Yes NASAL, Miguelito susan propionate 1-19 Daily, 0 l 0.05 21:07: Refill(s) [place] MG/ACTUAT 00 Metered Dose Nasal [place] [Flonase] gabapentin 2019-11 Yes 300 mg = 1 M emoria 300 MG Oral 1-19 cap, PO, l Capsule 21:07: TID, # 90 Ebony nn 00 cap, 0 Refill(s) Glucagon 2019-11 Yes ONCE, 0 Memori a 1-19 Refill(s) l 21:07: [place] 00 Insulin 2019-11 Yes SUB-Q, Memoria Lispro 100 1-19 TID-Before l UNT/ML 21:07: Meals, 0 [place] Injectable 00 Refill(s) Solution [Humalog] Loperamide 2019-11 Yes 2 mg = 1 Mem oria Hydrochlori 1-19 tab, PO, l de 2 MG 21:07: Q4H, PRN [place] n Oral Tablet 00 Loose [Imodium] Stools, # 60 tab, 0 Refill(s) Lactulose 2019-11 Yes 20 gm = 30 Me moria 667 MG/ML 1-19 mL, PO, l Oral 21:07: TID, PRN [place] Solution 00 constipati on, # 240 mL, 0 Refill(s) Loratadine 2019-11 Yes 10 mg = 1 Me moria 10 MG Oral 1-19 tab, PO, l Tablet 21:07: Daily, 0 [place] 00 Refill(s) Spiriva 2019-11 Yes 18 Memoria HandiHaler 1-19 microgram, l 21:07: INHALATION Oscar 00 , Daily, 0 Refill(s) Linagliptin 2019-11 Yes 5 mg = 1 Me moria 5 MG Oral 1-19 tab, PO, l Tablet 21:07: Daily, 0 [place] [Tradjenta] 00 Refill(s) tramadol 2019-11 Yes 50 mg = 1 Miguelito susan hydrochlori -19 tab, PO, l de 50 MG 21:07: BID, # 30 Herm nolvia Oral Tablet 00 tab, 0 Refill(s) Ondansetron 2019-11 Yes 4 mg = 1 Me moria 4 MG Oral 1-19 tab, PO, l Tablet 21:07: Q8H, PRN [place] [Zofran] 00 Nausea/vom iting, # 30 tab, 0 Refill(s) Diphenhydra 2019-11 Yes 25 mg = 1 M emoria mine 1-19 tab, PO, l Hydrochlori 21:07: TID, 0 Herm nolvia de 25 MG 00 Refill(s) Oral Tablet [Benadryl] Risperidone 2019-11 Yes 1 mg = 1 Me moria 1 MG Oral 1-19 tab, PO, l Tablet 21:07: BID, # 60 [place] [Risperdal] 00 tab, 0 Refill(s) oxcarbazepi 2019-11 Yes 150 mg = 1 Memoria ne 150 MG 1-19 tab, PO, l Oral Tablet 21:07: BID, 0 Herm nolvia [Trileptal] 00 Refill(s) abacavir 2019-11 Yes 1 tab, PO, Mem oria 600 MG / 1-19 Daily, 0 l dolutegravi 21:07: Refill(s) H ermann r 50 MG / 00 Lamivudine 300 MG Oral Tablet [Triumeq] Advair 2019-11 Yes 1 Memoria Diskus 250 1-19 inhalation l mcg-50 mcg 20:49: , [place] inhalation 00 INHALATION powder , BID, 0 Refill(s) Aspirin 81 2019-11 Yes 81 mg = 1 Me moria MG Enteric 1-19 tab, PO, l Coated 20:49: Daily, # Oscar Tablet 00 90 tab, 3 Refill(s) benztropine 2019-11 Yes 1 mg = 1 Me moria 1 mg oral 1-19 tab, PO, l tablet 20:49: Daily, 0 [place] 00 Refill(s) busPIRone 5 2019-11 Yes 5 mg = 1 Me moria mg oral 1-19 tab, PO, l tablet 20:49: TID, 0 [place] 00 Refill(s) Divalproex 2019-11 Yes 250 mg = 2 M emoria Sodium 125 1-19 cap, PO, l MG Enteric 20:49: TID, [...] i TABS 00:00: Day ty Health TRILEPTAL 2018- Yes 1{Table 2xD 1 Twice a [facility] (OXCARBAZEP 3-14 t} Day Communi INE) 150 MG 00:00: ty TABS 00 Health RISPERDAL 2018- Yes 1{Table 1xD 1 by mouth [facility] (RISPERIDON 3-14 t} once a day Co mmuni E) 1 MG 00:00: ty TABS 00 Health LANTUS 2018- Yes 24 U sc [facility] (INSULIN 3-14 Every pm Communi GLARGINE) 00:00: ty 100 UNIT/ML 00 Health SOLN (GABAPENTIN Yes 1{Capsu 3xD 1 by mouth [facility] ) 300 MG 3-14 le} three Communi CAPS 00:00: times a ty 00 day Health DEPAKOTE Yes 2 by mouth [facility] (DIVALPROEX 3-14 twice a Commu ni SODIUM) 250 00:00: day ty MG TBEC 00 Health (ASPIRIN) Yes 1 by mouth [place] 81 MG TBEC 3-14 every day Comm uni 00:00: ty 00 Health FANAPT 2020- No 1{Table 2xD 1 Twice a [place] (ILOPERIDON 3-14 - t} Day Communi E) 8 MG 00:00: 00:00 ty TABS 00 :00 Health BREO 2020- No 1 [facility] ELLIPTA 3-14 - inhalation Commu ni (FLUTICASON 00:00: 00:00 Every Day ty E 00 :00 Health FUROATE-BAMBI ANTEROL) 100-25 MCG/INH AEPB (MECLIZINE 2018- No 1 by mouth [facility] HCL) 25 MG 06-29- 3 times a Com mychal TABS 00:00: 00:00 day as ty 00 :00 needed for Health dizziness (NICOTINE) 2018- No [facility] -14-7 1-02-08 Communi MG/24HR KIT 00:00: 00:00 ty [...] Source oxygen saturation, 2020-12-02 10:39:40 94 /min [facility] oximetry Health blood pressure, 2020-12-02 10:39:40 73 mm[Hg] [facility] diastolic Health blood pressure, 2020-12-02 10:39:40 105 mm[Hg] [facility] systolic Health pulse rate 2020-12-02 10:39:40 104 /min [facility] Health temperature E&M 2020-12-02 10:39:40 98.1 [degF] [facility] Health weight E&M 2020-12-02 10:39:40 209 [facility] weight in kilograms 2020-12-02 10:39:40 95 kg L egacy Community E&M Health height in 2020-12-02 10:39:40 [facility] centimeters E&M Health Systolic (mm Hg) 2020-10-16 20:44:00 Miguelito rial [place] Diastolic (mm Hg) 2020-10-16 20:44:00 [facility] Heart Rate 2020-10-16 20:44:00 [facility] [place] Respitory Rate 2020-10-16 20:44:00 Memori al [place] Height 2020-10-16 20:44:00 162.56 cm [facility] 2020-10-16 20:44:00 [facility] Oscar BMI Calculated 2020-10-16 20:44:00 Memori al Oscar oxygen saturation, 2020-05-28 09:58:55 95 /min [facility] oximetry Health blood pressure, 2020-05-28 09:58:55 70 mm[Hg] [facility] diastolic Health blood pressure, 2020-05-28 09:58:55 125 mm[Hg] [facility] systolic Health pulse rate 2020-05-28 09:58:55 89 /min [facility] temperature E&M 2020-05-28 09:58:55 98.2 [degF] [facility] Health height in 2020-05-28 09:58:55 157.[facility] centimeters E&M Health oxygen saturation, 2020-02-07 10:26:43 90 /min [facility] oximetry Health blood pressure, 2020-02-07 10:26:43 71 mm[Hg] [facility] diastolic Health blood pressure, 2020-02-07 10:26:43 101 mm[Hg] [facility] systolic Health pulse rate 2020-02-07 10:26:43 112 /min [facility] temperature site 2020-02-07 10:26:43 oral [facility] Health temperature E&M 2020-02-07 10:26:43 98.7 [degF] [facility] Health weight E&M 2020-02-07 10:26:43 193 [facility]lb_av] [facility] 2020-02-07 10:26:43 87.73 kg L [facility] E& Health height in 2020-02-07 10:26:43 157.[facility] centimeters E&M Health oxygen saturation, 2019-10-04 07:16:02 98 /min [facility] oximetry Health blood pressure, 2019-10-04 07:16:02 68 mm[Hg] Legac [facility] diastolic Health blood pressure, 2019-10-04 07:16:02 103 mm[Hg] [facility] systolic Health pulse rate 2019-10-04 07:16:02 81 /min [facility] temperature E&M 2019-10-04 07:16:02 98.6 [degF] [facility] Health weight E&M 2019-10-04 07:16:02 169.60 [lb_av] [facility] Health weight in kilograms 2019-10-04 07:16:02 77.09 kg L [facility] E& Health temperature site 2019-10-04 07:16:02 oral [facility] Health height in 2019-10-04 07:16:02 157.[facility] centimeters E&M Health oxygen saturation, 2019-06-07 09:23:42 89 /min [facility] 2019-06-07 09:23:42 95 /min [facility] temperature site 2019-06-07 09:23:42 oral [facility] Health temperature E&M 2019-06-07 09:23:42 97.3 [degF] [facility] Health blood pressure, 2019-06-07 09:23:42 60 mm[Hg] [facility] diastolic Health blood pressure, 2019-06-07 09:23:42 92 mm[Hg] [facility] systolic Health weight E&M 2019-06-07 09:23:42 180 [facility]lb_av] [facility] 2019-06-07 09:23:42 81.82 kg L [facility] E& Health height in 2019-06-07 09:23:42 [facility] Health blood pressure, 2019-02-08 07:52:46 80 mm[Hg] [facility] diastolic Health blood pressure, 2019-02-08 07:52:46 110 mm[Hg] [facility] systolic Health oxygen saturation, 2019-02-08 07:52:46 89 /min [facility] oximetry Health pulse rate 2019-02-08 07:52:46 126 /min [facility] temperature E&M 2019-02-08 07:52:46 98.6 [degF] [facility] Health weight E&M 2019-02-08 07:52:46 189.13 [lb_av] [facility] Health weight in kilograms 2019-02-08 07:52:46 85.97 kg L [facility] E& Health temperature site 2019-02-08 07:52:46 oral Lega cy [facility] Health height in 2019-02-08 07:52:[address] [facility] ommunity centimeters E&M Health oxygen saturation, 2018-09-26 07:50:53 98 /min [facility] respiratory rate E&M 2018-09-26 07:50:53 16 /min [facility] Health pulse rate 2018-09-26 07:50:53 78 /min [facility] Health temperature E&M 2018-09-26 07:50:53 98.2 [degF] [facility] Health blood pressure, 2018-09-26 07:50:53 73 mm[Hg] [facility] diastolic Health blood pressure, 2018-09-26 07:50:53 96 mm[Hg] Leg[facility] systolic Health weight E&M 2018-09-26 07:50:53 188.25 [lb_av] [facility] Health weight in kilograms 2018-09-26 07:50:53 85.57 kg L [facility] E& Health temperature site 2018-09-26 07:50:53 oral [facility] height in 2018-09-26 07:50:53 157.48 cm [facility] ommunity centimeters E&M Health pulse rate 2018-02-21 08:03:52 120 /[facility] blood pressure, 2018-02-21 08:03:52 79 mm[Hg] [facility] diastolic Health blood pressure, 2018-02-21 08:03:52 120 mm[Hg] [facility] systolic Health respiratory rate E&M 2018-02-21 08:03:52 20 /min [facility] Health oxygen saturation, 2018-02-21 08:03:52 99 /min [facility] oximetry Health temperature site 2018-02-21 08:03:52 tympanic [facility] Health temperature E&M 2018-02-21 08:03:52 97.7 [degF] [facility] Health weight E&M 2018-02-21 08:03:52 177 [lb_av] [facility] Health weight in kilograms 2018-02-21 08:03:52 80.45 kg L [facility] E& Health height in 2018-02-21 08:03:52 157.48 [facility] centimeters E&M Health blood pressure, 2017-10-13 08:35:18 74 mm[Hg] [facility] diastolic Health blood pressure, 2017-10-13 08:35:18 105 mm[Hg] [facility] systolic Health pulse rate 2017-10-13 08:35:18 104 /min [facility] Health respiratory rate E&M 2017-10-13 08:35:18 16 /min [facility] Health oxygen saturation, 2017-10-13 08:35:18 96 /min [facility] oximetry Health temperature site 2017-10-13 08:35:18 tympanic [facility] Health temperature E&M 2017-10-13 08:35:18 99 [degF] [facility] Health weight E&M 2017-10-13 08:35:18 175 [lb_av] [facility] Health weight in kilograms 2017-10-13 08:35:18 79.55 kg L [facility] E& Health height in 2017-10-13 08:35:18 157.48 cm [facility] ommunity centimeters E&M Health blood pressure, 2017-06-29 08:33:26 50 mm[Hg] [facility] diastolic Health blood pressure, 2017-06-29 08:33:26 86 mm[Hg] [facility] systolic Health pulse rate 2017-06-29 08:33:26 100 /min [facility] respiratory rate E&M 2017-06-29 08:33:26 24 /min [facility] Health oxygen saturation, 2017-06-29 08:33:26 97 /min [facility] 2017-06-29 08:33:26 tympanic [facility] Health temperature E&M 2017-06-29 08:33:26 98.2 [degF] [facility] Health weight E&M 2017-06-29 08:33:26 169 [lb_av] [facility] weight in kilograms 2017-06-29 08:33:26 76.82 kg L [facility] E& Health height in 2017-06-29 08:33:26 157.48 [facility] centimeters E&M Health blood pressure, 2017-06-17 07:40:48 68 mm[Hg] [facility] diastolic Health blood pressure, 2017-06-17 07:40:48 97 mm[Hg] [facility] systolic Health pulse rate 2017-06-17 07:40:48 106 /min [facility] oxygen saturation, 2017-06-17 07:40:48 98 /min [facility] Health temperature E&M 2017-06-17 07:40:48 97.5 [degF] [facility] weight E&M 2017-06-17 07:40:48 170.13 [lb_av] [facility] 2017-06-17 07:40:48 77.33 kg L [facility] E& Health temperature site 2017-06-17 07:40:48 tympanic [facility] Health height in 2017-06-17 07:40:48 157.48 [facility] centimeters E&M Health blood pressure, 2017-04-19 10:19:07 60 mm[Hg] [facility] diastolic Health blood pressure, 2017-04-19 10:19:07 108 mm[Hg] Legac [facility] systolic Health pulse rate 2017-04-19 10:19:07 75 /min [facility] respiratory rate E&M 2017-04-19 10:19:07 24 /[facility] 2017-04-19 10:19:07 tympanic [facility] Health oxygen saturation, 2017-04-19 10:19:07 96 /min [facility] oximetry Health temperature E&M 2017-04-19 10:19:07 99.1 [degF] [facility] Health weight E&M 2017-04-19 10:19:07 172 [lb_av] [facility] weight in kilograms 2017-04-19 10:19:07 78.18 kg L [facility] E& Health height in 2017-04-19 10:19:07 157.48 [facility] E[facility]M Health blood pressure, 2016-11-02 08:40:55 79 mm[Hg] Leg[facility] diastolic Health blood pressure, 2016-11-02 08:40:55 113 mm[Hg] [facility] systolic Health pulse rate 2016-11-02 08:40:55 101 /min [facility] 2016-11-02 08:40:55 tympanic [facility] Health oxygen saturation, 2016-11-02 08:40:55 97 /min [facility] temperature E&M 2016-11-02 08:40:55 97.6 [degF] [facility] Health weight E&M 2016-11-02 08:40:55 180.60 [lb_av] [facility] Health weight in kilograms 2016-11-02 08:40:55 82.09 kg L [facility] E&M Health height in 2016-11-02 08:40:55 157.48 cm [facility]M Health oxygen saturation, 2016-07-07 08:32:30 82 /min [facility] Health blood pressure, 2016-07-07 08:32:30 83 mm[Hg] [facility] diastolic Health blood pressure, 2016-07-07 08:32:30 119 mm[Hg] [facility] systolic Health pulse rate 2016-07-07 08:32:30 82 /min [facility] temperature site 2016-07-07 08:32:30 tympanic [facility] Health temperature E&M 2016-07-07 08:32:30 96.4 [degF] [facility] Health weight E&M 2016-07-07 08:32:30 170.40 [lb_av] [facility] 2016-07-07 08:32:30 77.45 kg L [facility] E& Health height in 2016-07-07 08:32:30 157.48 [facility] E[facility]M Health blood pressure, 2016-03-24 15:04:18 74 mm[Hg] [facility] diastolic Health blood pressure, 2016-03-24 15:04:18 107 mm[Hg] [facility] systolic Health pulse rate 2016-03-24 15:04:18 92 /min [facility] temperature site 2016-03-24 15:04:18 tympanic [facility] Health oxygen saturation, 2016-03-24 15:04:18 94 /min [facility] oximetry Health temperature E&M 2016-03-24 15:04:18 97.2 [degF] [facility] Health weight E&M 2016-03-24 15:04:18 147.70 [lb_av] [facility] Health weight in kilograms 2016-03-24 15:04:18 67.14 kg L [facility] E& Health height in 2016-03-24 15:04:18 157.[facility] centimeters E&M Health pulse rate 2016-03-08 09:29:07 91 /[facility] blood pressure, 2016-03-08 09:29:07 76 mm[Hg] [facility] diastolic Health blood pressure, 2016-03-08 09:29:07 112 mm[Hg] [facility] systolic Health oxygen saturation, 2016-03-08 09:29:07 94 /min [facility] oximetry Health temperature site 2016-03-08 09:29:07 tympanic [facility] Health temperature E&M 2016-03-08 09:29:07 96.9 [degF] [facility] Health weight E&M 2016-03-08 09:29:07 137 [lb_av] [facility] Health weight in kilograms 2016-03-08 09:29:07 62.27 kg L [facility] E& Health height in 2016-03-08 09:29:07 157.[facility] centimeters E&M Health oxygen saturation, 2015-07-01 10:02:02 94 /min [facility] oximetry Health blood pressure, 2015-07-01 10:02:02 64 mm[Hg] [facility] diastolic Health blood pressure, 2015-07-01 10:02:02 89 mm[Hg] [facility] systolic Health pulse rate 2015-07-01 10:02:02 103 /min [facility] Health temperature site 2015-07-01 10:02:02 oral [facility] Health temperature E&M 2015-07-01 10:02:02 98.5 [degF] [facility] Health weight E&M 2015-07-01 10:02:02 127.40 [lb_av[facility] in [facility] 2015-07-01 10:02:02 57.91 kg L [facility] E& Health height in 2015-07-01 10:02:02 157.48 [facility] centimeters E&M Health blood pressure, 2015-03-18 10:06:41 62 mm[Hg] [facility] diastolic Health blood pressure, 2015-03-18 10:06:41 86 mm[Hg] [facility] systolic Health temperature E&M 2015-03-18 10:06:41 98.8 [degF] [facility] Health height in 2015-03-18 10:06:41 157.48 [facility] centimeters E&M Health oxygen saturation, 2015-03-18 10:06:41 93 /min [facility] oximetry Health pulse rate 2015-03-18 10:06:41 111 /min [facility] Health weight E&M 2015-03-18 10:06:41 137 [lb_av] [facility] Health weight in kilograms 2015-03-18 10:06:41 62.27 kg L [facility] 2015-03-18 10:06:41 temporal [facility] Procedures Procedure Date / Time Performing Clinician Source Performed Primary Care Medical 2016-03-08 10:18:09 Dilma Huntalison [facility] Case Management [facility] Primary Care Service 2015-07-02 08:59:43 Zee Rodriguez [facility] Primary Care - 2015-03-21 13:05:22 Zee Rodriguez Co mmunity Assesment-Brief - SLW [facility] Primary Care Service 2015-03-21 13:05:22 Zee Rodriguez [facility] Venipuncture 2015-03-03 09:52:50 Elodia Cespedes [facility] Encounters Start End Encounter Admission Attending Care Care Encounter Source Date/Time Date/Time Type Type Clinicians Facility Department ID 2020-12-05 2020-12-05 Office VERO Corbin Encounte r/ Legacy 00:00:00 00:00:00 Visit Vasyl [id number] Com mychal [id number] Health 2020-12-03 2020-12-03 [facility] Legacy 00:00:00 00:00:00 Visit Husam [id number] Com mychal [id number] Health 2020-12-02 2020-12-02 [facility] / Legacy 00:00:00 00:00:00 Visit Husam [id number] Com mychal 502523 Health 2020-12-02 2020-12-02 Office Husam Vital [facility] Enco unter/ Legacy 00:00:00 00:00:00 Visit Nkechi [place] [id number] Communi 984819 [facility] 2020-11-18 2020-11-18 Office Husam Vital OPHELIA Enco unter/ Legacy 00:00:00 00:00:00 Visit Gavi Em [id number] Communi 911204 Health 2020-11-18 2020-11-18 Office OPHELIA Vital OPHELIA Encounter / Legacy 00:00:00 00:00:00 Visit Husam [id number] Com mychal 506591 Health 2020-10-16 2020-10-16 Outpatient WILTON SaldañaPAYEMI [facility] [id number] 14:30:00 23:59:59 French 00 Clarence 2020-09-24 2020-09-24 Office Desktop, [facility] Care Coordination OPHELIA LC Encounter/ Legacy 00:00:00 00:00:00 Visit Oconnor, Marlee [id number] Nadeen Lowry 15050 0 ty Health 2020-07-01 2020-07-01 Office Ritchie JACINTO Encounte r/ Legacy 00:00:00 00:00:00 Visit Teresa [id number] Com mychal Tai 112857 ty Health 2020-06-16 2020-06-16 Office VERO Mcnamara Encounter/ Legacy 00:00:00 00:00:00 Visit Clarence [id number] Com mychal 976395 ty Health 2020-05-28 2020-05-28 Office VERO Vital Encounter / Legacy 00:00:00 00:00:00 Visit Husam [id number] Com mychal 024836 ty Health 2020-05-28 2020-05-28 Office Husam Vital Enco unter/ Legacy 00:00:00 00:00:00 Visit Nkechi [place] [id number] Communi 731056 ty Health 2020-05-28 2020-05-28 Office VERO Vital Encounter / Legacy 00:00:00 00:00:00 Visit Husam [id number] Com mychal 543659 ty Health 2020-02-07 2020-02-07 Office VERO Vital Encounter / Legacy 00:00:00 00:00:00 Visit Husam [id number] Com mychal 823301 ty Health 2020-02-07 2020-02-07 Office Husam Vital Enco unter/ Legacy 00:00:00 00:00:00 Visit Tai Britt [id number] Communi 176466 ty Health 2020-02-07 2020-02-07 Office VERO Vital Encounter / Legacy 00:00:00 00:00:00 Visit Husam [id number] Com mychal 228013 ty Health 2020-02-07 2020-02-07 Office Zahraa VERO JACINTO Encounter / Legacy 00:00:00 00:00:00 Visit Husam [id number] Com mychal 334385 ty Health 2019-10-10 2019-10-10 Office NanVERO Encounter/ Legacy 00:00:00 00:00:00 Visit Nkechi [id number] Com mychal 973501 ty Health 2019-10-04 2019-10-04 Office ZahraaVERO Encounter / Legacy 00:00:00 00:00:00 Visit Husam [id number] Com mychal 289815 ty Health 2019-10-04 2019-10-04 Office Husam Vital Enco unter/ Legacy 00:00:00 00:00:00 Visit [place] [id number] Communi 549470 ty Health 2019-10-04 2019-10-04 Office VERO Vital Encounter / Legacy 00:00:00 00:00:00 Visit Husam [id number] Com mychal 013078 ty Health 2019-10-04 2019-10-04 Office ZahraaVERO Encounter / Legacy 00:00:00 00:00:00 Visit Husam [id number] Com mychal 388537 ty Health 2019-10-04 2019-10-04 Office ZahraaHusam Enco unter/ Legacy 00:00:00 00:00:00 Visit Nkechi [place] [id number] 4752 Communi Tai Britt 168262 ty Health 2019-10-02 2019-10-02 Office OconnorVERO Encount er/ Legacy 00:00:00 00:00:00 Visit Marlee [id number] Com mychal 052500 ty Health 2019-06-07 2019-06-07 Office VERO Vital Encounter / Legacy 00:00:00 00:00:00 Visit Husam [id number] Com mychal 671068 ty Health 2019-06-07 2019-06-07 Office VERO Vital Encounter / Legacy 00:00:00 00:00:00 Visit Husam [id number] Com mychal 048425 ty Health 2019-06-07 2019-06-07 Office VERO Vital Encounter / Legacy 00:00:00 00:00:00 Visit Husam [id number] Com mychal 870923 ty Health 2019-06-07 2019-06-07 Office OPHELIA Garcia OPHELIA Encounte r/ Legacy 00:00:00 00:00:00 Visit Palmer [id number] Com mychal 668117 ty Health 2019-06-07 2019-06-07 Office OPHELIA Vital OPHELIA Encounter / Legacy 00:00:00 00:00:00 Visit Husam [id number] Com mychal 810810 ty Health 2019-06-07 2019-06-07 Office Husam Vital [facility] Enco unter/ Legacy 00:00:00 00:00:00 Visit Nkechi [place] [id number] Communi 378231 Health 2019-06-06 2019-06-06 [facility] Legacy 00:00:00 00:00:00 Visit Meka [id number] Com mychal 872326 Health 2019-04-19 2019-04-19 Office Status, Fax [facility] Encoun ter/ Legacy 00:00:00 00:00:00 Visit [id number] Com mychal 045984 Health 2019-02-22 2019-02-22 [facility] [id number] 14[facility]00:00 14:00:00 [facility] ent Clinics 2019-02-08 2019-02-08 Office VERO Vital Encounter / Legacy 00:00:00 00:00:00 Visit Husam [id number] Com mychal 821004 ty Health 2019-02-08 2019-02-08 Office VERO Vital Encounter / Legacy 00:00:00 00:00:00 Visit Husam [id number] Com mychal 038127 ty Health 2019-02-08 2019-02-08 Office VERO Vital Encounter / Legacy 00:00:00 00:00:00 Visit Husam [id number] Com mychal 159491 ty Health 2019-02-08 2019-02-08 Office Zahraa, OPHELIA OPHELIA Encounter / Legacy 00:00:00 00:00:00 Visit Husam [id number] Com mychal 706164 ty Health 2019-02-08 2019-02-08 Office Zahraa, OPHELIA OPHELIA Encounter / Legacy 00:00:00 00:00:00 Visit Husam [id number] Com mychal 026134 ty Health 2019-02-08 2019-02-08 Office Zahraa, Husam JACINTO OPHELIA Enco unter/ Legacy 00:00:00 00:00:00 Visit Valentine Lucas [id number] Communi 077589 ty Health 2019-02-05 2019-02-05 Office Oconnor, LC OPHELIA Encount er/ Legacy 00:00:00 00:00:00 Visit Marlee [id number] Com mychal 377720 ty Health 2019-02-02 2019-02-02 Office OconnorVERO vergara Encount er/ Legacy 00:00:00 00:00:00 Visit Marlee [id number] Com mychal 242515 ty Health 2018-12-29 2018-12-29 Office OconnorVERO cox Encount er/ Legacy 00:00:00 00:00:00 Visit Marlee [id number] Com mychal 008405 ty Health 2018-12-25 2018-12-25 Office OconnorMarlee vergara Encounter/ Legacy 00:00:00 00:00:00 Visit Phi Pearce [id number] Communi 585626 ty Health 2018-12-25 2018-12-25 Office nAtonioVERO hopkins Encounter / Legacy 00:00:00 00:00:00 Visit Husam [id number] Com mychal 357234 ty Health 2018-12-22 2018-12-22 Office VERO Oconnor Encount er/ Legacy 00:00:00 00:00:00 Visit Marlee [id number] Com mychal 749325 ty Health 2018-09-28 2018-09-28 Office EstrellaVERO morales Encounter / Legacy 00:00:00 00:00:00 Visit Husam [id number] Com mychal 955302 ty Health 2018-09-28 2018-09-28 Office Status, Fax OPHELIA OPHELIAH Encoun ter/ Legacy 00:00:00 00:00:00 Visit [id number] Com mychal 558389 ty Health 2018-09-26 2018-09-26 Office Nemandrew, VERO PHAM Encounter / Legacy 00:00:00 00:00:00 Visit Husam [id number] Com mychal 396785 ty Health 2018-09-26 2018-09-26 Office Nemandrew, VERO JACINTO Encounter / Legacy 00:00:00 00:00:00 Visit Husam [id number] Com mychal 769855 ty Health 2018-09-26 2018-09-26 Office Nemandrew, VERO JACINTO Encounter / Legacy 00:00:00 00:00:00 Visit Husam [id number] Com mychal 719549 ty Health 2018-09-26 2018-09-26 Office Nemandrew, VERO JACINTO Encounter / Legacy 00:00:00 00:00:00 Visit Husam [id number] Com mychal 113616 ty Health 2018-09-26 2018-09-26 Office NemHusam morales OPHELIA OPHELIA Enco unter/ Legacy 00:00:00 00:00:00 Visit Sisi Obrien [id number] 5832 Communi 836858 ty Health 2018-09-25 2018-09-25 Office Nemandrew, VERO JACINTO Encounter / Legacy 00:00:00 00:00:00 Visit Husam [id number] Com mychal 409418 ty Health 2018-09-23 2018-09-23 Office VERO Oconnor Encount er/ Legacy 00:00:00 00:00:00 Visit Marlee [id number] Com mychal 375682 ty Health 2018-09-07 2018-09-07 Office Marlee Oconnor Encounter/ Legacy 00:00:00 00:00:00 Visit Luci Ríos [id number] 4282 Communi 275208 ty Health 2018-05-05 2018-05-05 Office VERO Rosas Encoun ter/ Legacy 00:00:00 00:00:00 Visit Marcelle [id number] Com mychal 613968 ty Health 2018-02-21 2018-02-21 Office Status, Fax OPHELIA OPHELIA Encoun ter/ Legacy 00:00:00 00:00:00 Visit [id number] Com mychal 901880 ty Health 2018-02-21 2018-02-21 Office Status, Fax OPHELIA OPHELIA Encoun ter/ Legacy 00:00:00 00:00:00 Visit [id number] Com mychal 880778 ty Health 2018-02-21 2018-02-21 Office Status, Fax [facility] OPHELIA Encoun ter/ Legacy 00:00:00 00:00:00 Visit [id number] Com mychal 702076 ty Health 2018-02-21 2018-02-21 Office VERO Vital Encounter / Legacy 00:00:00 00:00:00 Visit Husam [id number] Com mychal 525948 [facility] 2018-02-21 2018-02-21 Office VERO Vital Encounter / Legacy 00:00:00 00:00:00 Visit Husam [id number] Com mychal 363637 [facility] 2018-02-21 2018-02-21 Office Husam Vital Enco unter/ Legacy 00:00:00 00:00:00 Visit Nkechi [place] [id number] Ema Gupta 83901 0 ty [facility] 2018-02-14 2018-02-14 Office Kai-Ronda JACINTO LC Encoun ter/ Legacy 00:00:00 00:00:00 Visit jaron [id number] Com mychal Choice 961178 Health 2018-02-08 2018-02-08 Office OPHELIA Rosas OPHELIA Encoun ter/ Legacy 00:00:00 00:00:00 Visit Marcelle [id number] Com mychal 039676 ty Health 2018-02-07 2018-02-07 Office VERO Vital Encounter / Legacy 00:00:00 00:00:00 Visit Husam [id number] Com mychal 125787 ty Health 2018-02-07 2018-02-07 Office Husam Vital Enco unter/ Legacy 00:00:00 00:00:00 Visit Leigha Dumont [id number] Communi 349025 ty Health 2018-01-25 2018-01-25 Office VERO Hugo Encounter/ Legacy 00:00:00 00:00:00 Visit Verito [id number] C ommuni 530604 ty Health 2018-01-25 2018-01-25 Office VERO Zarate Encounte r/ Legacy 00:00:00 00:00:00 Visit Vanessa [id number] Com mychal 869282 ty Health 2018-01-17 2018-01-17 Office VERO Vital Encounter / Legacy 00:00:00 00:00:00 Visit Husam [id number] Com mychal 782490 ty Health 2018-01-17 2018-01-17 Office Jose Lui En counter/ Legacy 00:00:00 00:00:00 Visit Marcelle Rosas [id number] Communi 040518 ty Health 2017-10-26 2017-10-26 Office VERO Rosas Encoun ter/ Legacy 00:00:00 00:00:00 Visit Marcelle [id number] Com mychal 414397 ty Health 2017-10-25 2017-10-25 Office VERO Rosas Encoun ter/ Legacy 00:00:00 00:00:00 Visit Marcelle [id number] Com mychal 222648 ty Health 2017-10-24 2017-10-24 Office VERO Cameron Encounter / Legacy 00:00:00 00:00:00 Visit Angeles [id number] Com mychal 662182 ty Health 2017-10-13 2017-10-13 Office VERO Vital Encounter / Legacy 00:00:00 00:00:00 Visit Husam [id number] Com mychal 374596 ty Health 2017-10-13 2017-10-13 Office VERO Hugo Encounter/ Legacy 00:00:00 00:00:00 Visit Luann [id number] Co mmuni 983428 ty Health 2017-10-13 2017-10-13 Office VERO Vital Encounter / Legacy 00:00:00 00:00:00 Visit Husam [id number] Com mychal 310130 ty Health 2017-10-13 2017-10-13 Office NemOPHELIA morales LC Encounter / Legacy 00:00:00 00:00:00 Visit Husam [id number] Com mychal 872005 ty Health 2017-10-13 2017-10-13 Office Husam Vital Enco unter/ Legacy 00:00:00 00:00:00 Visit Nkechi [place] [id number] [facility] [place] Cameron 245146 ty [facility] 2017-10-12 2017-10-12 [facility] Legacy 00:00:00 00:00:00 Visit jaron [id number] Com mychal Choice 358703 Health 2017-07-05 2017-07-05 Office Husam Vital OPHELIA Enco unter/ Legacy 00:00:00 00:00:00 Visit Ema Pillai [id number] [facility] [place] Cameron [id number] [facility] RaymundoAmanda 2017-06-29 2017-06-29 Office Zahraa, [facility]/ Legacy 00:00:00 00:00:00 Visit Molly Velazco [id number] Communi 461717 [facility] 2017-06-29 2017-06-29 Office OPHELIA Vital OPHELIA Encounter / Legacy 00:00:00 00:00:00 Visit Husam [id number] Com mychal 350597 Health 2017-06-29 2017-06-29 Office NemVERO morales Encounter / Legacy 00:00:00 00:00:00 Visit Husam [id number] Com mychal 536886 ty Health 2017-06-29 2017-06-29 Office [facility] Enco unter/ Legacy 00:00:00 00:00:00 Visit Nkechi [place] [id number] 8854 Communi 943309 ty Health 2017-06-28 2017-06-28 [facility] Legacy 00:00:00 00:00:00 Visit jaron [id number] Com mychal Choice 211393 ty Health 2017-06-20 2017-06-20 Office VERO Vital Encounter / Legacy 00:00:00 00:00:00 Visit Husam [id number] Com mychal 365172 ty Health 2017-06-17 2017-06-17 Office VERO Vital Encounter / Legacy 00:00:00 00:00:00 Visit Husam [id number] Com mychal 736498 ty Health 2017-06-17 2017-06-17 Office VERO Vital Encounter / Legacy 00:00:00 00:00:00 Visit Husam [id number] Com mychal 674809 ty Health 2017-06-17 2017-06-17 Office Husam Vital OPHELIA Enco unter/ Legacy 00:00:00 00:00:00 Visit Iesha Lucas [id number] 7581 Communi 090066 ty Health 2017-06-14 2017-06-14 Office [facility] Legacy 00:00:00 00:00:00 Visit jaron [id number] Com mychal Choice 236915 ty Health 2017-06-09 2017-06-09 Office RosasOPHELIA Tesfaye OPHELIA Encoun ter/ Legacy 00:00:00 00:00:00 Visit Marcelle [id number] Com mychal 909781 ty Health 2017-06-08 2017-06-08 Office RosasOPHELIA Tesfaye OPHELIA Encoun ter/ Legacy 00:00:00 00:00:00 Visit Marcelle [id number] Com mychal 199359 ty Health 2017-05-30 2017-05-30 Office Ashutosh JACINTO Encounter/ Legacy 00:00:00 00:00:00 Visit Kyra [id number] Co obed Morocho 666687 ty Health 2017-05-30 2017-05-30 Office Ashutosh JACINTO Encounter/ Legacy 00:00:00 00:00:00 Visit Kyra [id number] Co obed Morocho 483476 ty Health 2017-05-27 2017-05-27 Office VERO Vital Encounter / Legacy 00:00:00 00:00:00 Visit Husam [id number] Com mychal 934056 ty Health 2017-05-26 2017-05-26 Office Marcelle RosasH Encounter/ Legacy 00:00:00 00:00:00 Visit Beau Rodriguez [id number] [facility] 990029 [facility] 2017-05-25 2017-05-25 Office VERO Vital Encounter / Legacy 00:00:00 00:00:00 Visit Husam [id number] Com mychal 350702 Health 2017-05-25 2017-05-25 Office VERO Vital Encounter / Legacy 00:00:00 00:00:00 Visit Husam [id number] Com mychal 084326 Health 2017-05-25 2017-05-25 Office VERO Rosas Encoun ter/ Legacy 00:00:00 00:00:00 Visit Marcelle [id number] Com mychal 702389 [facility] 2017-05-24 2017-05-24 Office Shaye Boyd [facility] Enco unter/ Legacy 00:00:00 00:00:00 Visit Polina Neal [id number] [address] [place], [place] [address]Charisma Berger [id number] Beau Rodriguez [facility] 2017-05-18 2017-05-18 Office Ashutosh JACINTOH Encounter/ Legacy 00:00:00 00:00:00 Visit Kyra [id number] Co obed Morocho [id number] [facility] 2017-05-13 2017-05-13 Office Husam VitalH Enco unter/ Legacy 00:00:00 00:00:00 Visit Zee Rodriguez [id number] Cara Ray 275174 [facility] 2017-04-22 2017-04-22 Office Bailee CruzH Encounter/ Legacy 00:00:00 00:00:00 Visit Baltazar Davison [id number] [facility] 155073 Health 2017-04-22 2017-04-22 Office VERO Davison Encounter / Legacy 00:00:00 00:00:00 Visit Baltazar [id number] Com mychal 713378 Health 2017-04-19 2017-04-19 Office VERO Vital Encounter / Legacy 00:00:00 00:00:00 Visit Husam [id number] Com mychal 889897 ty Health 2017-04-19 2017-04-19 Office VERO Vital OPHELIAFransisca Encounter / Legacy 00:00:00 00:00:00 Visit Husam [id number] Com mychal 427525 ty Health 2017-04-19 2017-04-19 Office Husam Vital OPHELIAFransisca Enco unter/ Legacy 00:00:00 00:00:00 Visit Nkechi [place] [id number] Communi 678508 ty Health 2017-04-18 2017-04-18 Office Kori PHAM [facility] Encoun ter/ Legacy 00:00:00 00:00:00 Visit jaron [id number] Com mychal Choice 677978 ty Health 2017-03-11 2017-03-11 Office Husam Vital OPHELIAFransisca Enco unter/ Legacy 00:00:00 00:00:00 Visit Polina Neal [id number] 53 Communi 906664 ty Health 2017-03-01 2017-03-01 Office VERO Vital LCFransisca Encounter / Legacy 00:00:00 00:00:00 Visit Husam [id number] Com mychal 275095 ty Health 2017-02-17 2017-02-17 Office VERO Valladares LCFransisca Encounter/ Legacy 00:00:00 00:00:00 Visit Malu [id number] C ommuni 669699 ty Health 2016-12-09 2016-12-09 Office VERO Valladares LCFransisca Encounter/ Legacy 00:00:00 00:00:00 Visit Malu [id number] C ommuni 877258 ty Health 2016-11-02 2016-11-02 Office VERO Vital LCFransisca Encounter / Legacy 00:00:00 00:00:00 Visit Husam [id number] Com mychal 873523 ty Health 2016-11-02 2016-11-02 Office Zahraa OPHELIAFransisca OPHELIA Encounter / Legacy 00:00:00 00:00:00 Visit Husam [id number] Com mychal 364610 ty Health 2016-11-02 2016-11-02 Office Husam Vital OPHELIAFransisca Enco unter/ Legacy 00:00:00 00:00:00 Visit Esdras [place] 606395 3620 Communi 721840 ty Health 2016-10-19 2016-10-19 Office OPHELIA Vital OPHELIA Encounter / Legacy 00:00:00 00:00:00 Visit Husam [id number] Com mychal 636520 ty Health 2016-10-19 2016-10-19 Office VERO Vital OPHELIA Encounter / Legacy 00:00:00 00:00:00 Visit Husam [id number] Com mychal 200272 ty Health 2016-09-21 2016-09-21 Office Tera [facility]/ Legacy 00:00:00 00:00:00 Visit Tara [id number] Com mychal 888642 ty Health 2016-08-31 2016-08-31 Office Blaine OPHELIA OPHELIA Encounter/ Legacy 00:00:00 00:00:00 Visit Malu [id number] Marjorie ommuni 807115 Health 2016-07-09 2016-07-09 Office Status, Fax [facility] Encoun ter/ Legacy 00:00:00 00:00:00 Visit [id number] Com mychal 491744 ty Health 2016-07-09 2016-07-09 Office Status, Fax [facility] Encoun ter/ Legacy 00:00:00 00:00:00 Visit [id number] Com mychal 764958 ty Health 2016-07-07 2016-07-07 Office VERO Vital OPHELIA Encounter / Legacy 00:00:00 00:00:00 Visit Husam [id number] Com mychal 743133 ty Health 2016-07-07 2016-07-07 [facility] / Legacy 00:00:00 00:00:00 Visit Husam [id number] Com mychal 370885 ty Health 2016-07-07 2016-07-07 Office Nemandrew, [facility] En[facility] / Legacy 00:00:00 00:00:00 Visit Husam [id number] Com mychal 396190 ty Health 2016-07-07 2016-07-07 Office Zahraa Husam OPHELIA OPHELIA Enco unter/ Legacy 00:00:00 00:00:00 Visit Nkechi [place] 385414 7378 Communi Molyl Velazco 346220 ty Health 2016-07-01 2016-07-01 Office PerdomoVERO ashby [facility] Encounter/ Legacy 00:00:00 00:00:00 Visit Remy [id number] Com mychal 805661 ty Health 2016-06-28 2016-06-28 Office Yoel VERO [facility] Encounter / Legacy 00:00:00 00:00:00 Visit Chiara [id number] Com mychal 507273 ty Health 2016-03-24 2016-03-24 Office Zahraa, VERO [facility] Encounter / Legacy 00:00:00 00:00:00 Visit Husam [id number] Com mychal 657134 ty Health 2016-03-24 2016-03-24 Office EstrellaVERO morales [facility] Encounter / Legacy 00:00:00 00:00:00 Visit Husam [id number] Com mychal 411372 ty Health 2016-03-24 2016-03-24 Office Husam Vital Enco unter/ Legacy 00:00:00 00:00:00 Visit Nkechi [place] 396398 6128 Communi 822268 ty Health 2016-03-24 2016-03-24 Office AntonioVERO hopknis [facility] Encounter / Legacy 00:00:00 00:00:00 Visit Husam [id number] Com mychal 992415 ty Health 2016-03-08 2016-03-08 Office MarileeVERO [facility] Encounter / Legacy 00:00:00 00:00:00 Visit Dilma [id number] Com mychal 093961 ty Health 2016-03-08 2016-03-08 Office VERO Perdomo [facility] Encounter/ Legacy 00:00:00 00:00:00 Visit Remy [id number] Com mychal 360744 ty Health 2016-03-08 2016-03-08 Office Remy Perdomo Encou nter/ Legacy 00:00:00 00:00:00 Visit Jo Valle [id number] 84639 Communi 880175 ty Health 2016-02-26 2016-02-26 Office VERO Perdomo [facility] Encounter/ Legacy 00:00:00 00:00:00 Visit Remy [id number] Com mychal 636775 ty Health 2016-01-27 2016-01-27 Office Nemandrew, VERO [facility] Encounter / Legacy 00:00:00 00:00:00 Visit Husam [id number] Com mychal 827505 ty Health 2016-01-22 2016-01-22 Office Yoel, VERO [facility] Encounter / Legacy 00:00:00 00:00:00 Visit Chiara [id number] Com mychal 703064 ty Health 2015-12-02 2015-12-02 Office Nan, LCH [facility] Encounter/ Legacy 00:00:00 00:00:00 Visit Nkechi [id number] Com mychal 691634 ty Health 2015-10-27 2015-10-27 Office Yoel, LC [facility] Encounter / Legacy 00:00:00 00:00:00 Visit Chiara [id number] Com mychal 620988 ty Health 2015-09-05 2015-09-05 Office Zahraa, OPHELIA [facility] Encounter / Legacy 00:00:00 00:00:00 Visit Husam [id number] Com mychal 336927 ty Health 2015-09-05 2015-09-05 Office Nemandrew, OPHELIA [facility] Encounter / Legacy 00:00:00 00:00:00 Visit Husam [id number] Com mychal 727089 ty Health 2015-09-03 2015-09-03 Office Zahraa, LC [facility] Encounter / Legacy 00:00:00 00:00:00 Visit Husam [id number] Com mychal 740878 ty Health 2015-07-14 2015-07-14 Office Nemandrew, OPHELIAH [facility] Encounter / Legacy 00:00:00 00:00:00 Visit Husam [id number] Com mychal 434043 ty Health 2015-07-02 2015-07-02 Office Gentry, L[facility] Encounter/ Legacy 00:00:00 00:00:00 Visit Odin [id number] Com mychal 958709 ty Health 2015-07-02 2015-07-02 Office Michael, [facility] Encounter / Legacy 00:00:00 00:00:00 Visit Zee [id number] C ommuni 803006 ty Health 2015-07-01 2015-07-01 Office Michael, [facility] Encounter / Legacy 00:00:00 00:00:00 Visit Zee [id number] C ommuni 464173 ty Health 2015-07-01 2015-07-01 Office AntonioVERO hopkins Encounter / Legacy 00:00:00 00:00:00 Visit Husam [id number] Com mychal 565405 ty Health 2015-07-01 2015-07-01 Office Husam Vital OPHELIA Enco unter/ Legacy 00:00:00 00:00:00 Visit Nkechi [place] 342146 7865 Communi 247423 ty Health 2015-06-17 2015-06-17 Office AntonioOPHELIA hopkins OPHELIA Encounter / Legacy 00:00:00 00:00:00 Visit Husam [id number] Com mychal 867015 ty Health 2015-06-17 2015-06-17 Office EstrellaVERO morales Encounter / Legacy 00:00:00 00:00:00 Visit Husam [id number] Com mychal 525835 ty Health 2015-06-17 2015-06-17 Office EstrellaVREO morales Encounter / Legacy 00:00:00 00:00:00 Visit Husam [id number] Com mychal 748447 ty Health 2015-06-17 2015-06-17 Office VERO Vital Encounter / Legacy 00:00:00 00:00:00 Visit Husam [id number] Com mychal 656183 ty Health 2015-03-18 2015-03-18 Office AntonioVERO hopkins Encounter / Legacy 00:00:00 00:00:00 Visit Husam [id number] Com mychal 157129 ty Health 2015-03-18 2015-03-18 Office MichaelVERO Encounter / Legacy 00:00:00 00:00:00 Visit Zee [id number] C ommuni [id number] [facility] 2015-03-18 2015-03-18 Office VERO Rodriguez Encounter / Legacy 00:00:00 00:00:00 Visit Zee [id number] C ommuni [id number] ty [facility] 2015-03-18 2015-03-18 Office NemVERO morales Encounter / Legacy 00:00:00 00:00:00 Visit Husam [id number] Com mychal [id number] ty [facility] 2015-03-18 2015-03-18 Office Husam Vital OPHELIA Enco unter/ Legacy 00:00:00 00:00:00 Visit Lexy Ward [id number] Maikol Lucas Valentine [id number] ty Health 2015-03-17 2015-03-17 Office VERO Vital Encounter / Legacy 00:00:00 00:00:00 Visit Husam [id number] Com mychal [id number] ty Health 2015-03-17 2015-03-17 Office SparksVERO Encounter/ Legacy 00:00:00 00:00:00 Visit Sammie [id number] Co mmuni [id number] ty Health 2015-03-15 2015-03-15 Office VERO Sparks Encounter/ Legacy 00:00:00 00:00:00 Visit Sammie [id number] Co mmuni [id number] ty Health 2015-03-13 2015-03-13 Office Lisa JACINTO OPHELIA Encoun ter/ Legacy 00:00:00 00:00:00 Visit Deidra ramon [id number] Co mmuni [id number] ty [facility] 2015-03-03 2015-03-03 Office VERO Cespedes Encounter/ Legacy 00:00:00 00:00:00 Visit Elodia [id number] Com mychal [id number] ty Health 2015-03-03 2015-03-03 Office VERO Cespedes Encounter/ Legacy 00:00:00 00:00:00 Visit Elodia [id number] Com mychal [id number] ty Health 2015-03-03 2015-03-03 Office OPHELIA Cespedes OPHELIA Encounter/ Legacy 00:00:00 00:00:00 Visit Elodia [id number] Com mychal [id number] ty Health 2015-03-03 2015-03-03 Office Elodia Cespedes OPHELIA Enc ounter/ Legacy 00:00:00 00:00:00 Visit Atif Harris [phone] Communi [id number] ty Health 2015-03-03 2015-03-03 Office VERO Vital Encounter / Legacy 00:00:00 00:00:00 Visit Husam [id number] [facility] [id number] ty Health Results Test Description Test Time Test Comments Results Result Comments Source rapid plasma reagin antibody, serum 2020-11-18 10:28:00 Test Item Value Reference Range Interpretation Comme nts rapid plasma reagin antibody, serum (test code = Non Reactive Non R eactive 5291-0) [facility], by PCR, nwjtebwrfnfg9900-00-45 10:28:00 Test Item Value Reference Range Interpretation Comments HIV-1RNA, serum, by PCR, <20 copies/mL quantitative (test code = 87237) [facility], [id number] 10:28:00 Test Item Value Reference Range Interpretation Comments LDL cholesterol, serum (test code = 115 mg/dL 0-99 H 2088-11) [facility] low density lgmeyekpzpfb0315-10-19 10:28:00 Test Item Value Reference Range Interpretation Comments very low density lipoproteins (test 58 mg/dL 5-40 H code = 2090-7) [facility], spnjr8092-38-26 10:28:00 Test Item Value Reference Range Interpretation Comments HDL cholesterol, serum (test code = 32 mg/dL >39 L 2085-07) [facility], serum, [id number] 10:28:00 Test Item Value Reference Range Interpretation Comments triglyceride, serum, fasting (test 331 mg/dL 0-149 H code = 2571-8) [facility]olesterol, [id number] 10:28:00 Test Item Value Reference Range Interpretation Comments cholesterol, serum (test code = 205 mg/dL 100-199 H 2092-3) [facility] aminotransferase (SGPT), [id number] 10:28:00 Test Item Value Reference Range Interpretation Comments alanine aminotransferase (SGPT), serum 15 1/L 0-32 (test code = 1742-6) [facility]inghamaspartate aminotransferase (SGOT), ukcwx0911-32-59 10:28:00 Test Item Value Reference Range Interpretation Comments aspartate aminotransferase (SGOT), 14 1/L 0-40 serum (test code = 1920-8) [facility]inghamalk[facility] phosphatase, [id number] 10:28:00 Test Item Value Reference Range Interpretation Comments alkaline phosphatase, serum (test code 93 1/L 39-117 = 1783-0) [facility] Healthbilirubin, serum, [id number] 10:28:00 Test Item Value Reference Range Interpretation Comments bilirubin, serum, total (test code <0.2 mg/dL 0.0-1.2 = 1975-2) [facility] Healthalbumin/globulin ratio, [id number] 10:28:00 Test Item Value Reference Range Interpretation Comments albumin/globulin ratio, serum (test 1.4 1.2-2.2 code = 1759-0) [facility] Healthglobulin, [id number] 10:28:00 Test Item Value Reference Range Interpretation Comments globulin, serum (test code = 2336-6) 2.8 1.5-4.5 [facility] Healthalbumin, [id number] 10:28:00 Test Item Value Reference Range Interpretation Comments albumin, serum (test code = 1751-7) 4.0 g/dL 3.8-4.9 [facility] Healthprotein, total, [id number] 10:28:00 Test Item Value Reference Range Interpretation Comments protein, total, serum (test code = 6.8 g/dL 6.0-8.5 2885-2) [facility], [id number] 10:28:00 Test Item Value Reference Range Interpretation Comments calcium, serum (test code = 1999-8) 9.2 mg/dL 8.7-10.3 [facility] dioxide, venous pyczb9703-76-18 10:28:00 Test Item Value Reference Range Interpretation Comments carbon dioxide, venous blood (test 27 mmol/L -29 code = 7-1) [facility] Healthchloride, [id number] 10:28:00 Test Item Value Reference Range Interpretation Comments chloride, serum (test code = 97 mmol/L 96-106 5-0) [facility]hampotassium, ryjrl4051-97-16 10:28:00 Test Item Value Reference Range Interpretation Comments potassium, serum (test code = 4.1 mmol/L 3.5-5.2 2823-3) [facility]inghamsodium, voapt7652-21-50 10:28:00 Test Item Value Reference Range Interpretation Comments sodium, serum (test code = 2951-2) 139 mmol/L 134-144 [facility]inghamurea nitrogen/creatinine ratio, [id number] 10:28:00 Test Item Value Reference Range Interpretation Comments urea nitrogen/creatinine ratio, serum 11-24 (test code = 3097-3) [facility] HealtheGFR if Rmokcdkn0652-21-54 10:28:00 Test Item Value Reference Range Interpretation Comments eGFR if 102 >59 (test code = 64890-9) mL/min/((173/100).m2) [facility]inghamEstimated Glomerular Filtration Rate (calc)2020-11-18 10:28:00 Test Item Value Reference Range Interpretation Comments Estimated Glomerular 88 >59 Filtration Rate (calc) mL/min/((173/100).m2 (test code = 72582-9) ) [facility]creatinine, [id number] 10:28:00 Test Item Value Reference Range Interpretation Comments creatinine, serum (test code = 0.74 mg/dL 0.57-1.00 2160-0) [facility]inghamurea nitrogen, oldqr5813-99-03 10:28:00 Test Item Value Reference Range Interpretation Comments urea nitrogen, blood (test code = 11 mg/dL 07-24 3094-0) [facility] glucose, [id number] 10:28:00 Test Item Value Reference Range Interpretation Comments blood glucose, random (test code = 178 mg/dL 65-99 H 2339-0) [facility]inghamimmature granulocytes, percentage of total cells, blood 2020-11-18 10:28:00 Test Item Value Reference Range Interpretation Comments immature granulocytes, percentage of 1 % total cells, blood (test code = 46580-8) [facility]inghambasophil count, rrckyjzc3795-58-92 10:28:00 Test Item Value Reference Range Interpretation Comments basophil count, absolute (test 0.0 x10E3/uL 0.0-0.2 code = 15564-7) [facility]inghamEosinophil Absolute [id number] 10:28:00 Test Item Value Reference Range Interpretation Comments Eosinophil Absolute Count (test 0.1 X10E3/UL 0.0-0.4 code = 24499-2) [facility]inghammonocyte count, blood, vytqvdhnk1202-10-25 10:28:00 Test Item Value Reference Range Interpretation Comments monocyte count, blood, automated 0.5 X10E3/UL 0.1-0.9 (test code = 742-7) [facility]lymph[facility] count, blood, xqknrbqxj4045-26-45 10:28:00 Test Item Value Reference Range Interpretation Comments lymphocyte count, blood, 1.3 X10E3/UL 0.7-3.1 automated (test code = 731-0) [facility]Absolute Vgtnlozatxk9038-58-30 10:28:00 Test Item Value Reference Range Interpretation Comments Absolute Neutrophils (test code 5.6 X10E3/UL 1.4-7.0 = 72082-1) [facility]asophils as percent of blood ogsmshvtvl3683-86-94 10:28:00 Test Item Value Reference Range Interpretation Comments basophils as percent of blood 0 % leukocytes (test code = 707-0) [facility]hameosinophils as percent of blood fopuwdliyi9454-93-43 10:28:00 Test Item Value Reference Range Interpretation Comments eosinophils as percent of blood 1 % leukocytes (test code = 713-8) [facility] Healthmonocytes as percent of blood rxaqhdcers8731-60-27 10:28:00 Test Item Value Reference Range Interpretation Comments monocytes as percent of blood 6 % leukocytes (test code = 5905-5) [facility]lymphocytes as percent of blood fbphpswekz5495-22-19 10:28:00 Test Item Value Reference Range Interpretation Comments lymphocytes as percent of blood 17 % leukocytes (test code = 736-9) [facility]inghamneutrophils as percent of blood qvxuanjliv9378-84-28 10:28:00 Test Item Value Reference Range Interpretation Comments neutrophils as percent of blood 75 % leukocytes (test code = 770-8) [facility]inghamplatelet ixepn4921-73-38 10:28:00 Test Item Value Reference Range Interpretation Comments platelet count (test code = 194 X10E3/UL 150-450 777-3) [facility]inghamred blood cell distribution jepnh9654-30-36 10:28:00 Test Item Value Reference Range Interpretation Comments red blood cell distribution width 11.9 % 11.7-15.4 (test code = 788-0) [facility] corpuscular hemoglobin concentration, [id number] 10:28:00 Test Item Value Reference Range Interpretation Comments mean corpuscular hemoglobin 35.3 G/DL 31.5-35.7 concentration, RBC (test code = 786-4) [facility], [id number] 10:28:00 Test Item Value Reference Range Interpretation Comments mean corpuscular hemoglobin, RBC 34.8 pg 26.6-33.0 H (test code = 785-6) [facility] volume, [id number] 10:28:00 Test Item Value Reference Range Interpretation Comments mean corpuscular volume, RBC (test code 99 fL 79-97 H = 787-2) [facility]hematocrit, qutqz1529-15-37 10:28:00 Test Item Value Reference Range Interpretation Comments hematocrit, blood (test code = 4544-3) 40.5 % 34.0-46.6 [facility]oglobin, [id number] 10:28:00 Test Item Value Reference Range Interpretation Comments hemoglobin, blood (test code = 14.3 g/dL 11.1-15.9 718-7) [facility]inghamerythrocyte (RBC) ckapt3405-85-75 10:28:00 Test Item Value Reference Range Interpretation Comments erythrocyte (RBC) count (test 4.11 X10E6/UL 3.77-5.28 code = 789-8) [facility]leukocyte count, rpgjc2910-11-18 10:28:00 Test Item Value Reference Range Interpretation Comments leukocyte count, blood (test 7.5 X10E3/UL 3.4-10.8 code = 6690-2) [facility]inghamCD4/CD8 bscxp0376-35-78 10:28:00 Test Item Value Reference Range Interpretation Comments CD4/CD8 ratio (test code = 06957) 1.14 0.92-3.72 [facility]inghamT-suppressor cells (CD8) as percent of blood lymphocytes 2020-11-18 10:28:00 Test Item Value Reference Range Interpretation Comments T-suppressor cells (CD8) as percent of 23.7 % 12.0-35.5 blood lymphocytes (test code = 3517) [facility]inghamabsolute [id number] 10:28:00 Test Item Value Reference Range Interpretation Comments absolute CD8 (test code = 90968) 308 109-897 [facility]inghamT-helper cells (CD4) as percent of blood lymphocytes 2020-11-18 10:28:00 Test Item Value Reference Range Interpretation Comments T-helper cells (CD4) as percent of 26.9 % 30.8-58.5 L blood lymphocytes (test code = 8123-2) [facility]inghamT-helper cells (CD4) [id number] 10:28:00 Test Item Value Reference Range Interpretation Comments T-helper cells (CD4) count (test code 350 /UL 359-1519 L = 91100-3) [facility]inghamrapid plasma reagin antibody, lywyf3388-86-14 10:39:00 Test Item Value Reference Range Interpretation Comments rapid plasma reagin antibody, Non Reactive Non Reactive serum (test code = 5291-0) [facility]inghamhemoglobin A1C, blood, as % of total tppwthjcfe8263-81-27 10:39:00 Test Item Value Reference Range Interpretation Comments hemoglobin A1C, blood, as % of total 6.3 % 4.8-5.6 H hemoglobin (test code = 4548-4) [facility]HIV-1RNA, serum, by PCR, bzfkcelewbjl3599-97-91 10:39:00 Test Item Value Reference Range Interpretation Comments HIV-1RNA, serum, by PCR, quantitative 30 /mL (test code = 91169) [facility]inghamLDL cholesterol, [id number] 10:39:00 Test Item Value Reference Range Interpretation Comments LDL cholesterol, serum (test code = 87 mg/dL 0-99 2088-1) [facility]inghamvery low density lifzznvafjoz2747-36-22 10:39:00 Test Item Value Reference Range Interpretation Comments very low density lipoproteins (test 44 mg/dL 5-40 H code = 2090-7) [facility]inghamHDL cholesterol, knrmh2675-01-73 10:39:00 Test Item Value Reference Range Interpretation Comments HDL cholesterol, serum (test code = 32 mg/dL >39 L 2084-9) [facility]inghamtriglyceride, serum, [id number] 10:39:00 Test Item Value Reference Range Interpretation Comments triglyceride, serum, fasting (test 220 mg/dL 0-149 H code = 2571-8) [facility]inghamcholesterol, [id number] 10:39:00 Test Item Value Reference Range Interpretation Comments cholesterol, serum (test code = 163 mg/dL 787-735 8712-3) [facility]inghamalanine aminotransferase (SGPT), [id number] 10:39:00 Test Item Value Reference Range Interpretation Comments alanine aminotransferase (SGPT), serum 15 1/L 0-32 (test code = 1742-6) [facility]inghamaspartate aminotransferase (SGOT), [id number] 10:39:00 Test Item Value Reference Range Interpretation Comments aspartate aminotransferase (SGOT), 17 1/L 0-40 serum (test code = 1920-8) [facility]inghamalkaline phosphatase, [id number] 10:39:00 Test Item Value Reference Range Interpretation Comments alkaline phosphatase, serum (test code 93 1/L 39-117 = 1783-0) [facility]ambilirubin, serum, [id number] 10:39:00 Test Item Value Reference Range Interpretation Comments bilirubin, serum, total (test code <0.2 mg/dL 0.0-1.2 = 1975-2) [facility]inghamalbumin/globulin ratio, [id number] 10:39:00 Test Item Value Reference Range Interpretation Comments albumin/globulin ratio, serum (test 1.7 1.2-2.2 code = 1759-0) [facility] Healthglobulin, [id number] 10:39:00 Test Item Value Reference Range Interpretation Comments globulin, serum (test code = 2336-6) 2.4 1.5-4.5 [facility] Healthalbumin, [id number] 10:39:00 Test Item Value Reference Range Interpretation Comments albumin, serum (test code = 1751-7) 4.0 g/dL 3.8-4.9 [facility]protein, total, [id number] 10:39:00 Test Item Value Reference Range Interpretation Comments protein, total, serum (test code = 6.4 g/dL 6.0-8.5 2885-2) [facility]inghamcalcium, [id number] 10:39:00 Test Item Value Reference Range Interpretation Comments calcium, serum (test code = 1999-8) 9.1 mg/dL 8.7-10.3 [facility]inghamcarbon dioxide, venous [id number] 10:39:00 Test Item Value Reference Range Interpretation Comments carbon dioxide, venous blood (test 27 mmol/L 20-29 code = 7-1) [facility] Healthchloride, [id number] 10:39:00 Test Item Value Reference Range Interpretation Comments chloride, serum (test code = 100 mmol/L 96-106 2075-0) [facility] Healthpotassium, [id number] 10:39:00 Test Item Value Reference Range Interpretation Comments potassium, serum (test code = 4.6 mmol/L 3.5-5.2 2823-3) [facility]hamsodium, adpgv1350-58-30 10:39:00 Test Item Value Reference Range Interpretation Comments sodium, serum (test code = 2951-2) 139 mmol/L 134-144 [facility]inghamurea nitrogen/creatinine ratio, tybjo0875-09-40 10:39:00 Test Item Value Reference Range Interpretation Comments urea nitrogen/creatinine ratio, serum 13 12-28 (test code = 3097-3) [facility] HealtheGFR if Zdsuphib5895-27-86 10:39:00 Test Item Value Reference Range Interpretation Comments eGFR if 110 >59 (test code = 61095-3) mL/min/((173/100).m2) [facility]inghamEstimated Glomerular Filtration Rate (calc)2020-05-28 10:39:00 Test Item Value Reference Range Interpretation Comments Estimated Glomerular 96 >59 Filtration Rate (calc) mL/min/((173/100).m2 (test code = 46741-5) ) [facility]inghamcreatinine, [id number] 10:39:00 Test Item Value Reference Range Interpretation Comments creatinine, serum (test code = 0.67 mg/dL 0.57-1.00 2160-0) [facility]inghamurea nitrogen, [id number] 10:39:00 Test Item Value Reference Range Interpretation Comments urea nitrogen, blood (test code = 9 mg/dL 8-27 3094-0) [facility] glucose, jvangx7659-08-70 10:39:00 Test Item Value Reference Range Interpretation Comments blood glucose, random (test code = 106 mg/dL 65-99 H 2339-0) [facility]inghamimmature granulocytes, percentage of total cells, blood 2020-05-28 10:39:00 Test Item Value Reference Range Interpretation Comments immature granulocytes, percentage of 0 % total cells, blood (test code = 25233-5) [facility] Healthbasophil count, axfapmei6725-64-06 10:39:00 Test Item Value Reference Range Interpretation Comments basophil count, absolute (test 0.0 x10E3/uL 0.0-0.2 code = 40983-8) [facility] HealthEosinophil Absolute Aelrq3708-48-41 10:39:00 Test Item Value Reference Range Interpretation Comments Eosinophil Absolute Count (test 0.1 X10E3/UL 0.0-0.4 code = 79608-0) [facility]inghammonocyte count, blood, qydgnulrx8687-42-45 10:39:00 Test Item Value Reference Range Interpretation Comments monocyte count, blood, automated 0.4 X10E3/UL 0.1-0.9 (test code = 742-7) [facility]inghamlymphocyte count, blood, fhbkkxoee5522-46-00 10:39:00 Test Item Value Reference Range Interpretation Comments lymphocyte count, blood, 1.5 X10E3/UL 0.7-3.1 automated (test code = 731-0) [facility]inghamAbsolute Akcyymjnxph1874-86-88 10:39:00 Test Item Value Reference Range Interpretation Comments Absolute Neutrophils (test code 4.8 X10E3/UL 1.4-7.0 = 24465-2) [facility]ambasophils as percent of blood kiksxvgqqr2263-76-35 10:39:00 Test Item Value Reference Range Interpretation Comments basophils as percent of blood 0 % leukocytes (test code = 707-0) [facility] Healtheosinophils as percent of blood nsttmkdanu7833-83-56 10:39:00 Test Item Value Reference Range Interpretation Comments eosinophils as percent of blood 1 % leukocytes (test code = 713-8) [facility] Healthmonocytes as percent of blood vmsczhbert5783-69-80 10:39:00 Test Item Value Reference Range Interpretation Comments monocytes as percent of blood 6 % leukocytes (test code = 5905-5) [facility]lymphocytes as percent of blood vtobvdfxgv6335-42-21 10:39:00 Test Item Value Reference Range Interpretation Comments lymphocytes as percent of blood 23 % leukocytes (test code = 736-9) [facility]inghamneutrophils as percent of blood opuavmdwvt5146-10-30 10:39:00 Test Item Value Reference Range Interpretation Comments neutrophils as percent of blood 70 % leukocytes (test code = 770-8) [facility]inghamplatelet fakrv1431-39-36 10:39:00 Test Item Value Reference Range Interpretation Comments platelet count (test code = 203 X10E3/UL 150-450 777-3) [facility]red blood cell distribution uanlv9070-86-23 10:39:00 Test Item Value Reference Range Interpretation Comments red blood cell distribution width 12.4 % 11.7-15.4 (test code = 788-0) [facility] corpuscular hemoglobin concentration, [id number] 10:39:00 Test Item Value Reference Range Interpretation Comments mean corpuscular hemoglobin 36.0 G/DL 31.5-35.7 H concentration, RBC (test code = 786-4) [facility] corpuscular hemoglobin, [id number] 10:39:00 Test Item Value Reference Range Interpretation Comments mean corpuscular hemoglobin, RBC 34.9 pg 26.6-33.0 H (test code = 785-6) [facility] corpuscular volume, [id number] 10:39:00 Test Item Value Reference Range Interpretation Comments mean corpuscular volume, RBC (test code 97 fL 79-97 = 787-2) [facility]hematocrit, outov0758-42-67 10:39:00 Test Item Value Reference Range Interpretation Comments hematocrit, blood (test code = 4544-3) 38.1 % 34.0-46.6 [facility]hemoglobin, icwhk9153-62-07 10:39:00 Test Item Value Reference Range Interpretation Comments hemoglobin, blood (test code = 13.7 g/dL 11.1-15.9 718-7) [facility]inghamerythrocyte (RBC) ouxcx2843-44-67 10:39:00 Test Item Value Reference Range Interpretation Comments erythrocyte (RBC) count (test 3.93 X10E6/UL 3.77-5.28 code = 789-8) [facility]inghamleukocyte count, zzncf5549-97-36 10:39:00 Test Item Value Reference Range Interpretation Comments leukocyte count, blood (test 6.8 X10E3/UL 3.4-10.8 code = 6690-2) [facility]inghamCD4/CD8 xyqak9036-76-76 10:39:00 Test Item Value Reference Range Interpretation Comments CD4/CD8 ratio (test code = 76658) 1.20 0.92-3.72 [facility]inghamT-suppressor cells (CD8) as percent of blood lymphocytes 2020-05-28 10:39:00 Test Item Value Reference Range Interpretation Comments T-suppressor cells (CD8) as percent of 27.1 % 12.0-35.5 blood lymphocytes (test code = 3517) [facility]absolute [id number] 10:39:00 Test Item Value Reference Range Interpretation Comments absolute CD8 (test code = 51577) 407 109-897 [facility]inghamT-helper cells (CD4) as percent of blood lymphocytes 2020-05-28 10:39:00 Test Item Value Reference Range Interpretation Comments T-helper cells (CD4) as percent of 32.4 % 30.8-58.5 blood lymphocytes (test code = 8123-2) [facility]inghamT-helper cells (CD4) acedn4010-84-24 10:39:00 Test Item Value Reference Range Interpretation Comments T-helper cells (CD4) count (test code 486 /UL 359-1519 = 12275-2) [facility]inghamrapid plasma reagin antibody, [id number] 11:23:00 Test Item Value Reference Range Interpretation Comments rapid plasma reagin antibody, Non Reactive Non Reactive serum (test code = 5291-0) [facility]hemoglobin A1C, blood, as % of total uqmsdcirhn8967-87-54 11:23:00 Test Item Value Reference Range Interpretation Comments hemoglobin A1C, blood, as % of total 5.6 % 4.8-5.6 hemoglobin (test code = 4548-4) [facility]HIV-1RNA, serum, by PCR, uktiziloqazq0789-04-68 11:23:00 Test Item Value Reference Range Interpretation Comments HIV-1RNA, serum, by PCR, <20 copies/mL quantitative (test code = 85547) [facility]inghamLDL cholesterol, [id number] 11:23:00 Test Item Value Reference Range Interpretation Comments LDL cholesterol, serum (test code = 94 mg/dL 0-99 2088-1) [facility]inghamvery low density vnfwhbglveok7987-09-27 11:23:00 Test Item Value Reference Range Interpretation Comments very low density lipoproteins (test 57 mg/dL 5-40 H code = 2090-7) [facility]inghamHDL cholesterol, [id number] 11:23:00 Test Item Value Reference Range Interpretation Comments HDL cholesterol, serum (test code = 36 mg/dL >39 L 2084-9) [facility]triglyceride, serum, dahvmdf0684-94-25 11:23:00 Test Item Value Reference Range Interpretation Comments triglyceride, serum, fasting (test 284 mg/dL 0-149 H code = 2571-8) [facility]cholesterol, [id number] 11:23:00 Test Item Value Reference Range Interpretation Comments cholesterol, serum (test code = 187 mg/dL 811-438 8216-3) [facility]inghamalanine aminotransferase (SGPT), vrrww7312-40-43 11:23:00 Test Item Value Reference Range Interpretation Comments alanine aminotransferase (SGPT), serum 7 1/L 0-32 (test code = 1742-6) [facility]inghamaspartate aminotransferase (SGOT), zmkyz6925-81-32 11:23:00 Test Item Value Reference Range Interpretation Comments aspartate aminotransferase (SGOT), 9 1/L 0-40 serum (test code = 1920-8) [facility]inghamalkaline phosphatase, [id number] 11:23:00 Test Item Value Reference Range Interpretation Comments alkaline phosphatase, serum (test code 93 1/L 39-117 = 1783-0) [facility]ambilirubin, serum, [id number] 11:23:00 Test Item Value Reference Range Interpretation Comments bilirubin, serum, total (test code <0.2 mg/dL 0.0-1.2 = 1974-2) [facility] Healthalbumin/globulin ratio, [id number] 11:23:00 Test Item Value Reference Range Interpretation Comments albumin/globulin ratio, serum (test 1.4 1.2-2.2 code = 1759-0) [facility] Healthglobulin, [id number] 11:23:00 Test Item Value Reference Range Interpretation Comments globulin, serum (test code = 2336-6) 2.8 1.5-4.5 [facility] Healthalbumin, [id number] 11:23:00 Test Item Value Reference Range Interpretation Comments albumin, serum (test code = 1751-7) 3.9 g/dL 3.8-4.9 [facility], [id number] 11:23:00 Test Item Value Reference Range Interpretation Comments protein, total, serum (test code = 6.7 g/dL 6.0-8.5 2885-2) [facility], [id number] 11:23:00 Test Item Value Reference Range Interpretation Comments calcium, serum (test code = 1999-8) 9.1 mg/dL 8.7-10.3 [facility] dioxide, venous [id number] 11:23:00 Test Item Value Reference Range Interpretation Comments carbon dioxide, venous blood (test 27 mmol/L - code = 2026-1) [facility]chloride, [id number] 11:23:00 Test Item Value Reference Range Interpretation Comments chloride, serum (test code = 99 mmol/L 96-106 5-0) [facility], [id number] 11:23:00 Test Item Value Reference Range Interpretation Comments potassium, serum (test code = 4.7 mmol/L 3.5-5.2 2823-3) [facility]odium, [id number] 11:23:00 Test Item Value Reference Range Interpretation Comments sodium, serum (test code = 2951-2) 140 mmol/L 134-144 [facility] nitrogen/creatinine ratio, [id number] 11:23:00 Test Item Value Reference Range Interpretation Comments urea nitrogen/creatinine ratio, serum 17 - (test code = 3097-3) [facility]GFR if Jbxqamvs2205-10-50 11:23:00 Test Item Value Reference Range Interpretation Comments eGFR if 100 >59 (test code = 23007-5) mL/min/((173/100).m2) [facility]inghamEstimated Glomerular Filtration Rate (calc)2020-02-07 11:23:00 Test Item Value Reference Range Interpretation Comments Estimated Glomerular 87 >59 Filtration Rate (calc) mL/min/((173/100).m2 (test code = 70302-9) ) [facility]inine, [id number] 11:23:00 Test Item Value Reference Range Interpretation Comments creatinine, serum (test code = 0.75 mg/dL 0.57-1.00 2160-0) [facility]inghamurea nitrogen, [id number] 11:23:00 Test Item Value Reference Range Interpretation Comments urea nitrogen, blood (test code = 13 mg/dL 8-27 3094-0) [facility] glucose, [id number] 11:23:00 Test Item Value Reference Range Interpretation Comments blood glucose, random (test code = 74 mg/dL 65-99 2339-0) [facility]inghamimmature granulocytes, percentage of total cells, blood 2020-02-07 11:23:00 Test Item Value Reference Range Interpretation Comments immature granulocytes, percentage of 0 % total cells, blood (test code = 53834-6) [facility]ophil count, gpawtyia9120-26-22 11:23:00 Test Item Value Reference Range Interpretation Comments basophil count, absolute (test 0.0 x10E3/uL 0.0-0.2 code = 26593-9) [facility]inghamEosinophil Absolute [id number] 11:23:00 Test Item Value Reference Range Interpretation Comments Eosinophil Absolute Count (test 0.1 X10E3/UL 0.0-0.4 code = 55175-2) [facility]inghammonocyte count, blood, eqcqjmequ0737-05-35 11:23:00 Test Item Value Reference Range Interpretation Comments monocyte count, blood, automated 0.4 X10E3/UL 0.1-0.9 (test code = 742-7) [facility]lymphocyte count, blood, eurbiehik7039-19-37 11:23:00 Test Item Value Reference Range Interpretation Comments lymphocyte count, blood, 1.6 X10E3/UL 0.7-3.1 automated (test code = 731-0) [facility]Absolute Kcehgcxmyat4433-42-38 11:23:00 Test Item Value Reference Range Interpretation Comments Absolute Neutrophils (test code 5.0 X10E3/UL 1.4-7.0 = 09558-9) [facility] as percent of blood ompalinogp8370-21-60 11:23:00 Test Item Value Reference Range Interpretation Comments basophils as percent of blood 0 % leukocytes (test code = 707-0) [facility]ophils as percent of blood aixerudtrl6030-87-05 11:23:00 Test Item Value Reference Range Interpretation Comments eosinophils as percent of blood 1 % leukocytes (test code = 713-8) [facility]ocytes as percent of blood mrxygcvuqa5401-54-54 11:23:00 Test Item Value Reference Range Interpretation Comments monocytes as percent of blood 6 % leukocytes (test code = 5905-5) [facility]lymphocytes as percent of blood kzysxtxxbr7966-73-46 11:23:00 Test Item Value Reference Range Interpretation Comments lymphocytes as percent of blood 22 % leukocytes (test code = 736-9) [facility]inghamneutrophils as percent of blood gvsskfxluf6047-86-23 11:23:00 Test Item Value Reference Range Interpretation Comments neutrophils as percent of blood 71 % leukocytes (test code = 770-8) [facility]inghamplatelet hjjfk8122-20-98 11:23:00 Test Item Value Reference Range Interpretation Comments platelet count (test code = 214 X10E3/UL 150-450 777-3) [facility]red blood cell distribution sfuws0934-86-30 11:23:00 Test Item Value Reference Range Interpretation Comments red blood cell distribution width 12.8 % 11.7-15.4 (test code = 788-0) [facility] corpuscular hemoglobin concentration, [id number] 11:23:00 Test Item Value Reference Range Interpretation Comments mean corpuscular hemoglobin 33.4 G/DL 31.5-35.7 concentration, RBC (test code = 786-4) [facility], [id number] 11:23:00 Test Item Value Reference Range Interpretation Comments mean corpuscular hemoglobin, RBC 33.8 pg 26.6-33.0 H (test code = 785-6) [facility] corpuscular volume, [id number] 11:23:00 Test Item Value Reference Range Interpretation Comments mean corpuscular volume, RBC (test 101 fL 79-97 H code = 787-2) [facility]hematocrit, [id number] 11:23:00 Test Item Value Reference Range Interpretation Comments hematocrit, blood (test code = 4544-3) 40.1 % 34.0-46.6 [facility]hemoglobin, gukjn5384-06-40 11:23:00 Test Item Value Reference Range Interpretation Comments hemoglobin, blood (test code = 13.4 g/dL 11.1-15.9 718-7) [facility]erythrocyte (RBC) qmfwf1827-28-21 11:23:00 Test Item Value Reference Range Interpretation Comments erythrocyte (RBC) count (test 3.97 X10E6/UL 3.77-5.28 code = 789-8) [facility]leukocyte count, qccpi4915-55-60 11:23:00 Test Item Value Reference Range Interpretation Comments leukocyte count, blood (test 7.1 X10E3/UL 3.4-10.8 code = 6690-2) [facility]inghamCD4/CD8 vtvoh9688-43-31 11:23:00 Test Item Value Reference Range Interpretation Comments CD4/CD8 ratio (test code = 99170) 1.01 0.92-3.72 [facility]inghamT-suppressor cells (CD8) as percent of blood lymphocytes 2020-02-07 11:23:00 Test Item Value Reference Range Interpretation Comments T-suppressor cells (CD8) as percent of 28.0 % 12.0-35.5 blood lymphocytes (test code = 3517) [facility]absolute [id number] 11:23:00 Test Item Value Reference Range Interpretation Comments absolute CD8 (test code = 49006) 448 109-897 [facility]inghamT-helper cells (CD4) as percent of blood lymphocytes 2020-02-07 11:23:00 Test Item Value Reference Range Interpretation Comments T-helper cells (CD4) as percent of 28.4 % 30.8-58.5 L blood lymphocytes (test code = 8123-2) [facility]inghamT-helper cells (CD4) zrazv4412-21-24 11:23:00 Test Item Value Reference Range Interpretation Comments T-helper cells (CD4) count (test code 454 /UL 359-1519 = 48014-6) [facility]inghamQuantiferon Gold TB blood test for tuberculosis screening 2019-10-04 09:29:00 Test Item Value Reference Range Interpretation Comments Quantiferon Gold TB blood test for Positive Negative A tuberculosis screening (test code = 74080-4) [facility]inghamhepatitis C antibody, [id number] 09:19:00 Test Item Value Reference Range Interpretation Comments hepatitis C antibody, serum (test code <0.1 0.0-0.9 = 5199-5) [facility]inghamrapid plasma reagin antibody, mmkqj5148-22-25 09:19:00 Test Item Value Reference Range Interpretation Comments rapid plasma reagin antibody, Non Reactive Non Reactive serum (test code = 5291-0) [facility]inghamHIV-1RNA, serum, by PCR, xycmggzhsfxv7149-68-47 09:19:00 Test Item Value Reference Range Interpretation Comments HIV-1RNA, serum, by PCR, quantitative 380 /mL (test code = 74501) [facility]inghamLDL cholesterol, [id number] 09:19:00 Test Item Value Reference Range Interpretation Comments LDL cholesterol, serum (test code = 82 mg/dL 0-99 2088-1) [facility]very low density bsmkxmkkojqd3989-30-59 09:19:00 Test Item Value Reference Range Interpretation Comments very low density lipoproteins (test 32 mg/dL 5-40 code = 2091-7) [facility]HDL cholesterol, evkjq4987-00-19 09:19:00 Test Item Value Reference Range Interpretation Comments HDL cholesterol, serum (test code = 42 mg/dL >39 5-9) [facility]triglyceride, serum, bzuspmq9211-35-00 09:19:00 Test Item Value Reference Range Interpretation Comments triglyceride, serum, fasting (test 161 mg/dL 0-149 H code = 2571-8) [facility]cholesterol, uzjlb6459-30-96 09:19:00 Test Item Value Reference Range Interpretation Comments cholesterol, serum (test code = 156 mg/dL 926-718 8141-3) [facility]inghamalanine aminotransferase (SGPT), drwuj2474-47-77 09:19:00 Test Item Value Reference Range Interpretation Comments alanine aminotransferase (SGPT), serum 10 1/L 0-32 (test code = 1742-6) [facility]inghamaspartate aminotransferase (SGOT), oelbq3359-14-66 09:19:00 Test Item Value Reference Range Interpretation Comments aspartate aminotransferase (SGOT), 9 1/L 0-40 serum (test code = 1920-8) [facility]inghamalkaline phosphatase, zcpyy0102-68-71 09:19:00 Test Item Value Reference Range Interpretation Comments alkaline phosphatase, serum (test code 99 1/L 39-117 = 1783-0) [facility]ambilirubin, serum, [id number] 09:19:00 Test Item Value Reference Range Interpretation Comments bilirubin, serum, total (test code 0.3 mg/dL 0.0-1.2 = 1975-2) [facility]albumin/globulin ratio, mvluz0271-01-51 09:19:00 Test Item Value Reference Range Interpretation Comments albumin/globulin ratio, serum (test 1.6 1.2-2.2 code = 1759-0) [facility] Healthglobulin, [id number] 09:19:00 Test Item Value Reference Range Interpretation Comments globulin, serum (test code = 2336-6) 2.4 1.5-4.5 [facility] Healthalbumin, [id number] 09:19:00 Test Item Value Reference Range Interpretation Comments albumin, serum (test code = 1751-7) 3.9 g/dL 3.5-5.5 [facility]protein, total, [id number] 09:19:00 Test Item Value Reference Range Interpretation Comments protein, total, serum (test code = 6.3 g/dL 6.0-8.5 2885-2) [facility]calcium, [id number] 09:19:00 Test Item Value Reference Range Interpretation Comments calcium, serum (test code = 1999-8) 9.2 mg/dL 8.7-10.2 [facility]carbon dioxide, venous [id number] 09:19:00 Test Item Value Reference Range Interpretation Comments carbon dioxide, venous blood (test 27 mmol/L 20-29 code = 7-1) [facility]inghamchloride, [id number] 09:19:00 Test Item Value Reference Range Interpretation Comments chloride, serum (test code = 102 mmol/L 96-106 2075-0) [facility] Healthpotassium, izsan0177-07-18 09:19:00 Test Item Value Reference Range Interpretation Comments potassium, serum (test code = 4.5 mmol/L 3.5-5.2 2823-3) [facility]amsodium, wkkyq7920-09-27 09:19:00 Test Item Value Reference Range Interpretation Comments sodium, serum (test code = 2951-2) 140 mmol/L 134-144 [facility]urea nitrogen/creatinine ratio, [id number] 09:19:00 Test Item Value Reference Range Interpretation Comments urea nitrogen/creatinine ratio, serum 25 9-23 H (test code = 3097-3) [facility]ameGFR if Elngsusw1409-20-05 09:19:00 Test Item Value Reference Range Interpretation Comments eGFR if 118 >59 (test code = 62724-7) mL/min/((173/100).m2) [facility]inghamEstimated Glomerular Filtration Rate (calc)2019-10-04 09:19:00 Test Item Value Reference Range Interpretation Comments Estimated Glomerular 102 >59 Filtration Rate (calc) mL/min/((173/100).m2 (test code = 72988-6) ) [facility]creatinine, [id number] 09:19:00 Test Item Value Reference Range Interpretation Comments creatinine, serum (test code = 0.56 mg/dL 0.57-1.00 L 2160-0) [facility]a nitrogen, [id number] 09:19:00 Test Item Value Reference Range Interpretation Comments urea nitrogen, blood (test code = 14 mg/dL 6-24 3094-0) [facility] glucose, [id number] 09:19:00 Test Item Value Reference Range Interpretation Comments blood glucose, random (test code = 121 mg/dL 65-99 H 2339-0) [facility]immature granulocytes, percentage of total cells, blood 2019-10-04 09:19:00 Test Item Value Reference Range Interpretation Comments immature granulocytes, percentage of 0 % total cells, blood (test code = 09173-0) [facility]asophil count, dvbbgbrr6227-23-29 09:19:00 Test Item Value Reference Range Interpretation Comments basophil count, absolute (test 0.0 x10E3/uL 0.0-0.2 code = 49768-1) [facility] HealthEosinophil Absolute [id number] 09:19:00 Test Item Value Reference Range Interpretation Comments Eosinophil Absolute Count (test 0.2 X10E3/UL 0.0-0.4 code = 98952-1) [facility]monocyte count, blood, enchjhhnm4681-26-06 09:19:00 Test Item Value Reference Range Interpretation Comments monocyte count, blood, automated 0.4 X10E3/UL 0.1-0.9 (test code = 742-7) [facility]lymph[facility] count, blood, frzongjqj2479-02-81 09:19:00 Test Item Value Reference Range Interpretation Comments lymphocyte count, blood, 1.7 X10E3/UL 0.7-3.1 automated (test code = 731-0) [facility] HealthAbsolute Fcmtbcikubv9820-53-48 09:19:00 Test Item Value Reference Range Interpretation Comments Absolute Neutrophils (test code 3.5 X10E3/UL 1.4-7.0 = 87506-1) [facility] Healthbasophils as percent of blood tfqzqujzir9359-55-36 09:19:00 Test Item Value Reference Range Interpretation Comments basophils as percent of blood 1 % leukocytes (test code = 707-0) [facility] Healtheosinophils as percent of blood budlhaqrcm7765-61-50 09:19:00 Test Item Value Reference Range Interpretation Comments eosinophils as percent of blood 3 % leukocytes (test code = 713-8) [facility] Healthmonocytes as percent of blood fesglvnuso7907-20-11 09:19:00 Test Item Value Reference Range Interpretation Comments monocytes as percent of blood 7 % leukocytes (test code = 5905-5) [facility] as percent of blood mmzieoiwjm4667-47-81 09:19:00 Test Item Value Reference Range Interpretation Comments lymphocytes as percent of blood 29 % leukocytes (test code = 736-9) [facility]inghamneutrophils as percent of blood xneyydsvga4144-31-55 09:19:00 Test Item Value Reference Range Interpretation Comments neutrophils as percent of blood 60 % leukocytes (test code = 770-8) [facility]inghamplatelet ixdog3834-97-43 09:19:00 Test Item Value Reference Range Interpretation Comments platelet count (test code = 234 X10E3/UL 150-450 777-3) [facility]red blood cell distribution mvmzq0971-97-46 09:19:00 Test Item Value Reference Range Interpretation Comments red blood cell distribution width 13.0 % 12.3-15.4 (test code = 788-0) [facility] corpuscular hemoglobin concentration, [id number] 09:19:00 Test Item Value Reference Range Interpretation Comments mean corpuscular hemoglobin 33.8 G/DL 31.5-35.7 concentration, RBC (test code = 786-4) [facility] corpuscular hemoglobin, [id number] 09:19:00 Test Item Value Reference Range Interpretation Comments mean corpuscular hemoglobin, RBC 34.9 pg 26.6-33.0 H (test code = 785-6) [facility] corpuscular volume, [id number] 09:19:00 Test Item Value Reference Range Interpretation Comments mean corpuscular volume, RBC (test 103 fL 79-97 H code = 787-2) [facility]hematocrit, xeleu9705-13-35 09:19:00 Test Item Value Reference Range Interpretation Comments hematocrit, blood (test code = 4544-3) 41.4 % 34.0-46.6 [facility]hemoglobin, [id number] 09:19:00 Test Item Value Reference Range Interpretation Comments hemoglobin, blood (test code = 14.0 g/dL 11.1-15.9 718-7) [facility]inghamerythrocyte (RBC) tqnle2465-21-58 09:19:00 Test Item Value Reference Range Interpretation Comments erythrocyte (RBC) count (test 4.01 X10E6/UL 3.77-5.28 code = 789-8) [facility]leukocyte count, ouwdf4597-26-19 09:19:00 Test Item Value Reference Range Interpretation Comments leukocyte count, blood (test 5.8 X10E3/UL 3.4-10.8 code = 6690-2) [facility]inghamCD4/CD8 [id number] 09:19:00 Test Item Value Reference Range Interpretation Comments CD4/CD8 ratio (test code = 34855) 0.91 0.92-3.72 L [facility]inghamT-suppressor cells (CD8) as percent of blood lymphocytes 2019-10-04 09:19:00 Test Item Value Reference Range Interpretation Comments T-suppressor cells (CD8) as percent of 26.7 % 12.0-35.5 blood lymphocytes (test code = 3517) [facility]absolute [id number] 09:19:00 Test Item Value Reference Range Interpretation Comments absolute CD8 (test code = 61226) 454 109-897 [facility]inghamT-helper cells (CD4) as percent of blood lymphocytes 2019-10-04 09:19:00 Test Item Value Reference Range Interpretation Comments T-helper cells (CD4) as percent of 24.4 % 30.8-58.5 L blood lymphocytes (test code = 8123-2) [facility]inghamT-helper cells (CD4) qaiwf0918-10-95 09:19:00 Test Item Value Reference Range Interpretation Comments T-helper cells (CD4) count (test code 415 /UL 359-1519 = 62285-1) [facility]LDL cholesterol, vvnaq0815-04-68 10:34:00 Test Item Value Reference Range Interpretation Comments LDL cholesterol, serum (test code = 58 mg/dL 0-99 2088-1) [facility]very low density qwssfpwwbgsy7874-32-19 10:34:00 Test Item Value Reference Range Interpretation Comments very low density lipoproteins (test 35 mg/dL 5-40 code = 2091-7) [facility]HDL cholesterol, xskzb7590-29-40 10:34:00 Test Item Value Reference Range Interpretation Comments HDL cholesterol, serum (test code = 34 mg/dL >39 L 2084-9) [facility], ocxtira8166-03-00 10:34:00 Test Item Value Reference Range Interpretation Comments triglyceride, serum, fasting (test 174 mg/dL 0-149 H code = 2571-8) [facility]olesterol, qfikk9512-99-97 10:34:00 Test Item Value Reference Range Interpretation Comments cholesterol, serum (test code = 127 mg/dL 851-011 0269-3) [facility]inghamrapid plasma reagin antibody, xrcrx9764-00-29 10:25:00 Test Item Value Reference Range Interpretation Comments rapid plasma reagin antibody, Non Reactive Non Reactive serum (test code = 5291-0) [facility]HIV-1RNA, serum, by PCR, fvkubzvoqpnm8608-07-45 10:25:00 Test Item Value Reference Range Interpretation Comments HIV-1RNA, serum, by PCR, <20 copies/mL quantitative (test code = 30734) [facility]alanine aminotransferase (SGPT), [id number] 10:25:00 Test Item Value Reference Range Interpretation Comments alanine aminotransferase (SGPT), serum 12 1/L 0-32 (test code = 1742-6) [facility]inghamaspartate aminotransferase (SGOT), xslhp0472-57-78 10:25:00 Test Item Value Reference Range Interpretation Comments aspartate aminotransferase (SGOT), 9 1/L 0-40 serum (test code = 1920-8) [facility]inghamalkaline phosphatase, wrbcr7522-05-64 10:25:00 Test Item Value Reference Range Interpretation Comments alkaline phosphatase, serum (test 102 1/L 39-117 code = 1783-0) [facility]ambilirubin, serum, odngj8892-05-18 10:25:00 Test Item Value Reference Range Interpretation Comments bilirubin, serum, total (test code 0.4 mg/dL 0.0-1.2 = 1975-2) [facility]albumin/globulin ratio, [id number] 10:25:00 Test Item Value Reference Range Interpretation Comments albumin/globulin ratio, serum (test 1.4 1.2-2.2 code = 1759-0) [facility] Healthglobulin, glcau5882-71-13 10:25:00 Test Item Value Reference Range Interpretation Comments globulin, serum (test code = 2336-6) 2.8 1.5-4.5 [facility] Healthalbumin, [id number] 10:25:00 Test Item Value Reference Range Interpretation Comments albumin, serum (test code = 1751-7) 4.0 g/dL 3.5-5.5 [facility] Healthprotein, total, [id number] 10:25:00 Test Item Value Reference Range Interpretation Comments protein, total, serum (test code = 6.8 g/dL 6.0-8.5 2885-2) [facility]calcium, veasu0642-00-39 10:25:00 Test Item Value Reference Range Interpretation Comments calcium, serum (test code = 1999-) 9.3 mg/dL 8.7-10.2 [facility]carbon dioxide, venous smhij4338-46-44 10:25:00 Test Item Value Reference Range Interpretation Comments carbon dioxide, venous blood (test 29 mmol/L 29 code = 2026-1) [facility]inghamchloride, tjwfs3409-66-89 10:25:00 Test Item Value Reference Range Interpretation Comments chloride, serum (test code = 99 mmol/L 96-106 5-0) [facility]ampotassium, bosdf5003-79-81 10:25:00 Test Item Value Reference Range Interpretation Comments potassium, serum (test code = 4.4 mmol/L 3.5-5.2 2823-3) [facility]amsodium, amxtj2521-12-03 10:25:00 Test Item Value Reference Range Interpretation Comments sodium, serum (test code = 2951-2) 140 mmol/L 134-144 [facility]urea nitrogen/creatinine ratio, rthem2439-09-85 10:25:00 Test Item Value Reference Range Interpretation Comments urea nitrogen/creatinine ratio, serum 20 9-23 (test code = 3097-3) [facility] HealtheGFR if Mgznbyvf9321-22-33 10:25:00 Test Item Value Reference Range Interpretation Comments eGFR if 115 >59 (test code = 94100-4) mL/min/((173/100).m2) [facility]inghamEstimated Glomerular Filtration Rate (calc)2019-06-07 10:25:00 Test Item Value Reference Range Interpretation Comments Estimated Glomerular 100 >59 Filtration Rate (calc) mL/min/((173/100).m2 (test code = 96597-7) ) [facility] Healthcreatinine, [id number] 10:25:00 Test Item Value Reference Range Interpretation Comments creatinine, serum (test code = 0.61 mg/dL 0.57-1.00 2160-0) [facility]urea nitrogen, sjofq8993-59-15 10:25:00 Test Item Value Reference Range Interpretation Comments urea nitrogen, blood (test code = 12 mg/dL 6-24 3094-0) [facility] glucose, fxqxqv5031-35-63 10:25:00 Test Item Value Reference Range Interpretation Comments blood glucose, random (test code = 131 mg/dL 65-99 H 2339-0) [facility]inghamimmature granulocytes, percentage of total cells, blood 2019-06-07 10:25:00 Test Item Value Reference Range Interpretation Comments immature granulocytes, percentage of 0 % total cells, blood (test code = 59887-7) [facility]ambasophil count, lgseiiqx5237-96-76 10:25:00 Test Item Value Reference Range Interpretation Comments basophil count, absolute (test 0.0 x10E3/uL 0.0-0.2 code = 96372-3) [facility]inghamEosinophil Absolute Otykd5801-32-66 10:25:00 Test Item Value Reference Range Interpretation Comments Eosinophil Absolute Count (test 0.1 X10E3/UL 0.0-0.4 code = 62938-6) [facility]inghammonocyte count, blood, zcevrdlow6499-66-35 10:25:00 Test Item Value Reference Range Interpretation Comments monocyte count, blood, automated 0.3 X10E3/UL 0.1-0.9 (test code = 742-7) [facility]inghamlymphocyte count, blood, qmpwnkldq8333-05-78 10:25:00 Test Item Value Reference Range Interpretation Comments lymphocyte count, blood, 1.4 X10E3/UL 0.7-3.1 automated (test code = 731-0) [facility]inghamAbsolute Hhomrhapism2483-33-70 10:25:00 Test Item Value Reference Range Interpretation Comments Absolute Neutrophils (test code 5.3 X10E3/UL 1.4-7.0 = 64545-9) [facility] blood mdkskvtocp2326-31-17 10:25:00 Test Item Value Reference Range Interpretation Comments basophils as percent of blood 0 % leukocytes (test code = 707-0) [facility]altheosinophils as percent of blood qofhqaiieb3978-89-78 10:25:00 Test Item Value Reference Range Interpretation Comments eosinophils as percent of blood 1 % leukocytes (test code = 713-8) [facility] Healthmonocytes as percent of blood rdaxtompys1749-11-75 10:25:00 Test Item Value Reference Range Interpretation Comments monocytes as percent of blood 5 % leukocytes (test code = 5905-5) [facility] mfxtomlgrh5667-95-37 10:25:00 Test Item Value Reference Range Interpretation Comments lymphocytes as percent of blood 19 % leukocytes (test code = 736-9) [facility]rophils [facility] percent of blood ohbjnxrxib0295-83-18 10:25:00 Test Item Value Reference Range Interpretation Comments neutrophils as percent of blood 75 % leukocytes (test code = 770-8) [facility]inghamplatelet khcre6585-52-09 10:25:00 Test Item Value Reference Range Interpretation Comments platelet count (test code = 227 X10E3/UL 150-450 777-3) [facility] blood cell distribution parbw6935-57-86 10:25:00 Test Item Value Reference Range Interpretation Comments red blood cell distribution width 13.4 % 12.3-15.4 (test code = 788-0) [facility] corpuscular hemoglobin concentration, [id number] 10:25:00 Test Item Value Reference Range Interpretation Comments mean corpuscular hemoglobin 34.2 G/DL 31.5-35.7 concentration, RBC (test code = 786-4) [facility], WBA2425-11-72 10:25:00 Test Item Value Reference Range Interpretation Comments mean corpuscular hemoglobin, RBC 34.8 pg 26.6-33.0 H (test code = 785-6) [facility] corpuscular volume, [id number] 10:25:00 Test Item Value Reference Range Interpretation Comments mean corpuscular volume, RBC (test 102 fL 79-97 H code = 787-2) [facility]oc[facility], ambdz9522-66-53 10:25:00 Test Item Value Reference Range Interpretation Comments hematocrit, blood (test code = 4544-3) 42.7 % 34.0-46.6 [facility]hemoglobin, ylzzm9841-08-57 10:25:00 Test Item Value Reference Range Interpretation Comments hemoglobin, blood (test code = 14.6 g/dL 11.1-15.9 718-7) [facility]throcyte (RBC) pzafo4432-59-61 10:25:00 Test Item Value Reference Range Interpretation Comments erythrocyte (RBC) count (test 4.20 X10E6/UL 3.77-5.28 code = 789-8) [facility]leukocyte count, epvkp2325-06-36 10:25:00 Test Item Value Reference Range Interpretation Comments leukocyte count, blood (test 7.1 X10E3/UL 3.4-10.8 code = 6690-2) [facility]CD4/CD8 ywptl9486-76-13 10:25:00 Test Item Value Reference Range Interpretation Comments CD4/CD8 ratio (test code = 39253) 1.00 0.92-3.72 [facility]inghamT-suppressor cells (CD8) as percent of blood lymphocytes 2019-06-07 10:25:00 Test Item Value Reference Range Interpretation Comments T-suppressor cells (CD8) as percent of 27.5 % 12.0-35.5 blood lymphocytes (test code = 3517) [facility] [id number] 10:25:00 Test Item Value Reference Range Interpretation Comments absolute CD8 (test code = 73676) 385 109-897 [facility]inghamT-helper cells (CD4) as percent of blood lymphocytes 2019-06-07 10:25:00 Test Item Value Reference Range Interpretation Comments T-helper cells (CD4) as percent of 27.5 % 30.8-58.5 L blood lymphocytes (test code = 8123-2) [facility]T-helper cells (CD4) ctskj0484-19-62 10:25:00 Test Item Value Reference Range Interpretation Comments T-helper cells (CD4) count (test code 385 /UL 359-1519 = 41105-0) [facility]inghamrapid plasma reagin antibody, mwjee4447-05-61 08:54:00 Test Item Value Reference Range Interpretation Comments rapid plasma reagin antibody, Non Reactive Non Reactive serum (test code = 5291-0) [facility]inghamHIV-1RNA, serum, by PCR, efrrlupqrqhg0725-00-61 08:54:00 Test Item Value Reference Range Interpretation Comments HIV-1RNA, serum, by PCR, <20 copies/mL quantitative (test code = 13343) [facility]inghamalanine aminotransferase (SGPT), ymfvb7652-03-65 08:54:00 Test Item Value Reference Range Interpretation Comments alanine aminotransferase (SGPT), serum 12 1/L 0-32 (test code = 1742-6) [facility]inghamaspartate aminotransferase (SGOT), wopak4416-93-46 08:54:00 Test Item Value Reference Range Interpretation Comments aspartate aminotransferase (SGOT), 12 1/L 0-40 serum (test code = 1920-8) [facility]inghamalkaline phosphatase, trday3767-99-24 08:54:00 Test Item Value Reference Range Interpretation Comments alkaline phosphatase, serum (test 109 1/L 39-117 code = 1783-0) [facility]ambilirubin, serum, mxkin3312-13-32 08:54:00 Test Item Value Reference Range Interpretation Comments bilirubin, serum, total (test code 0.2 mg/dL 0.0-1.2 = 1975-2) [facility]inghamalbumin/globulin ratio, ndsec1731-26-78 08:54:00 Test Item Value Reference Range Interpretation Comments albumin/globulin ratio, serum (test 1.5 1.2-2.2 code = 1759-0) [facility] Healthglobulin, vgrbt7357-13-60 08:54:00 Test Item Value Reference Range Interpretation Comments globulin, serum (test code = 2336-6) 2.6 1.5-4.5 [facility] Healthalbumin, flbdo4680-85-13 08:54:00 Test Item Value Reference Range Interpretation Comments albumin, serum (test code = 1751-7) 4.0 g/dL 3.5-5.5 [facility]protein, total, vulal5586-96-07 08:54:00 Test Item Value Reference Range Interpretation Comments protein, total, serum (test code = 6.6 g/dL 6.0-8.5 2885-2) [facility]calcium, tkzkj0561-32-48 08:54:00 Test Item Value Reference Range Interpretation Comments calcium, serum (test code = 1999-8) 9.3 mg/dL 8.7-10.2 [facility]carbon dioxide, venous gstnl0531-88-94 08:54:00 Test Item Value Reference Range Interpretation Comments carbon dioxide, venous blood (test 26 mmol/L 20-29 code = 2026-1) [facility]inghamchloride, pcugu3546-62-65 08:54:00 Test Item Value Reference Range Interpretation Comments chloride, serum (test code = 102 mmol/L 96-106 5-0) [facility] Healthpotassium, huhnz7131-89-80 08:54:00 Test Item Value Reference Range Interpretation Comments potassium, serum (test code = 4.8 mmol/L 3.5-5.2 2823-3) [facility]hamsodium, wlguo7393-63-97 08:54:00 Test Item Value Reference Range Interpretation Comments sodium, serum (test code = 2951-2) 143 mmol/L 134-144 [facility]inghamurea nitrogen/creatinine ratio, svqmk1926-38-07 08:54:00 Test Item Value Reference Range Interpretation Comments urea nitrogen/creatinine ratio, serum 11 9-23 (test code = 3097-3) [facility] HealtheGFR if Qgjdzlag6104-05-51 08:54:00 Test Item Value Reference Range Interpretation Comments eGFR if 113 >59 (test code = 56831-0) mL/min/((173/100).m2) [facility]inghamEstimated Glomerular Filtration Rate (calc)2019-02-08 08:54:00 Test Item Value Reference Range Interpretation Comments Estimated Glomerular 98 >59 Filtration Rate (calc) mL/min/((173/100).m2 (test code = 51231-3) ) [facility]inghamcreatinine, payeh4531-69-42 08:54:00 Test Item Value Reference Range Interpretation Comments creatinine, serum (test code = 0.64 mg/dL 0.57-1.00 2160-0) [facility]inghamurea nitrogen, qlynx3486-16-38 08:54:00 Test Item Value Reference Range Interpretation Comments urea nitrogen, blood (test code = 7 mg/dL 6-24 3094-0) [facility] glucose, gzrslt1139-35-02 08:54:00 Test Item Value Reference Range Interpretation Comments blood glucose, random (test code = 157 mg/dL 65-99 H 2339-0) [facility]inghamimmature granulocytes, percentage of total cells, blood 2019-02-08 08:54:00 Test Item Value Reference Range Interpretation Comments immature granulocytes, percentage of 0 % total cells, blood (test code = 07209-9) [facility]ambasophil count, locsezpo4885-51-03 08:54:00 Test Item Value Reference Range Interpretation Comments basophil count, absolute (test 0.0 x10E3/uL 0.0-0.2 code = 57628-7) [facility]inghamEosinophil Absolute Zqele5427-37-93 08:54:00 Test Item Value Reference Range Interpretation Comments Eosinophil Absolute Count (test 0.2 X10E3/UL 0.0-0.4 code = 42519-5) [facility]inghammonocyte count, blood, whiwoxfrj6537-69-36 08:54:00 Test Item Value Reference Range Interpretation Comments monocyte count, blood, automated 0.6 X10E3/UL 0.1-0.9 (test code = 742-7) [facility]inghamlymphocyte count, blood, vgqvbtgon8927-43-53 08:54:00 Test Item Value Reference Range Interpretation Comments lymphocyte count, blood, 1.2 X10E3/UL 0.7-3.1 automated (test code = 731-0) [facility]inghamAbsolute Rkrudhyrfxt3799-75-73 08:54:00 Test Item Value Reference Range Interpretation Comments Absolute Neutrophils (test code 6.1 X10E3/UL 1.4-7.0 = 28576-3) [facility]asophils as percent of blood inoxniylpd2883-73-82 08:54:00 Test Item Value Reference Range Interpretation Comments basophils as percent of blood 0 % leukocytes (test code = 707-0) [facility]hameosinophils as percent of blood kjlpkodjhl2622-06-42 08:54:00 Test Item Value Reference Range Interpretation Comments eosinophils as percent of blood 2 % leukocytes (test code = 713-8) [facility]inghammonocytes as percent of blood hbzriecpga7486-72-18 08:54:00 Test Item Value Reference Range Interpretation Comments monocytes as percent of blood 8 % leukocytes (test code = 5905-5) [facility]inghamlymphocytes as percent of blood dqjpwabrvy3968-88-62 08:54:00 Test Item Value Reference Range Interpretation Comments lymphocytes as percent of blood 14 % leukocytes (test code = 736-9) [facility]inghamneutrophils as percent of blood czmotibnkm4190-84-46 08:54:00 Test Item Value Reference Range Interpretation Comments neutrophils as percent of blood 76 % leukocytes (test code = 770-8) [facility]inghamplatelet pekfb1834-80-06 08:54:00 Test Item Value Reference Range Interpretation Comments platelet count (test code = 213 X10E3/UL 150-379 777-3) [facility]inghamred blood cell distribution adfls3176-46-57 08:54:00 Test Item Value Reference Range Interpretation Comments red blood cell distribution width 13.6 % 12.3-15.4 (test code = 788-0) [facility] corpuscular hemoglobin concentration, HMD2502-30-36 08:54:00 Test Item Value Reference Range Interpretation Comments mean corpuscular hemoglobin 33.7 G/DL 31.5-35.7 concentration, RBC (test code = 786-4) [facility] corpuscular hemoglobin, [id number] 08:54:00 Test Item Value Reference Range Interpretation Comments mean corpuscular hemoglobin, RBC 33.9 pg 26.6-33.0 H (test code = 785-6) [facility] corpuscular volume, [id number] 08:54:00 Test Item Value Reference Range Interpretation Comments mean corpuscular volume, RBC (test 101 fL 79-97 H code = 787-2) [facility]ocrit, vbfix9898-50-46 08:54:00 Test Item Value Reference Range Interpretation Comments hematocrit, blood (test code = 4544-3) 43.3 % 34.0-46.6 [facility]inghamhemoglobin, [id number] 08:54:00 Test Item Value Reference Range Interpretation Comments hemoglobin, blood (test code = 14.6 g/dL 11.1-15.9 718-7) [facility]inghamerythrocyte (RBC) mznzj7157-53-60 08:54:00 Test Item Value Reference Range Interpretation Comments erythrocyte (RBC) count (test 4.31 X10E6/UL 3.77-5.28 code = 789-8) [facility]leukocyte count, nniri4574-78-72 08:54:00 Test Item Value Reference Range Interpretation Comments leukocyte count, blood (test 8.0 X10E3/UL 3.4-10.8 code = 6690-2) [facility]CD4/CD8 zgbar4965-03-42 08:54:00 Test Item Value Reference Range Interpretation Comments CD4/CD8 ratio (test code = 17192) 1.08 0.92-3.72 [facility]inghamT-suppressor cells (CD8) as percent of blood lymphocytes 2019-02-08 08:54:00 Test Item Value Reference Range Interpretation Comments T-suppressor cells (CD8) as percent of 28.6 % 12.0-35.5 blood lymphocytes (test code = 3517) [facility]absolute [id number] 08:54:00 Test Item Value Reference Range Interpretation Comments absolute CD8 (test code = 32840) 343 109-897 [facility]inghamT-helper cells (CD4) as percent of blood lymphocytes 2019-02-08 08:54:00 Test Item Value Reference Range Interpretation Comments T-helper cells (CD4) as percent of 30.9 % 30.8-58.5 blood lymphocytes (test code = 8123-2) [facility]inghamT-helper cells (CD4) gdcoo3928-89-15 08:54:00 Test Item Value Reference Range Interpretation Comments T-helper cells (CD4) count (test code 371 /UL 359-1519 = 19613-7) [facility]inghamLDL cholesterol, pftvf0851-27-47 08:51:00 Test Item Value Reference Range Interpretation Comments LDL cholesterol, serum (test code = 45 mg/dL 0-99 9-1) [facility]inghamvery low density emmgzudvttao5846-71-62 08:51:00 Test Item Value Reference Range Interpretation Comments very low density lipoproteins (test 38 mg/dL 5-40 code = 1-7) [facility]inghamHDL cholesterol, zzegy5428-16-58 08:51:00 Test Item Value Reference Range Interpretation Comments HDL cholesterol, serum (test code = 36 mg/dL >39 L 2084-9) [facility]inghamtriglyceride, serum, cqhwwrg9687-18-02 08:51:00 Test Item Value Reference Range Interpretation Comments triglyceride, serum, fasting (test 188 mg/dL 0-149 H code = 2571-8) [facility]inghamcholesterol, gesop3321-29-62 08:51:00 Test Item Value Reference Range Interpretation Comments cholesterol, serum (test code = 119 mg/dL 294-212 4846-3) [facility]inghamBASIC METABOLIC JJIKH7723-20-54 02:25:00 Test Item Value Reference Range Interpretation [...] code = 8.4 mg/dL 8.0-10.5 N [place]) [facility] PHONE# for criticals-[phone] or [phone] PHONE , FAX# cbc W/AUTO MSGD2625-71-78 02:13:00 Test Item Value Reference Range Interpretation [...] DIFF REQUIRED (test code NO = MDIFF) [facility] PHONE# for YAZCLJYAW-[phone] or [phone] PHONE , FAX# Quantiferon Gold TB blood test for tuberculosis cyksjikoa8974-26-24 10:19:59 Test Item Value Reference Range Interpretation Comments Quantiferon Gold TB blood test for negative tuberculosis screening (test code = 78908-2) [facility]Quantifer[facility] TB blood test for tuberculosis screening 2018-09-26 08:58:00 Test Item Value Reference Range Interpretation Comments Quantiferon Gold TB blood test for Negative Negative tuberculosis screening (test code = 02209-8) [facility]inghamhepatitis C antibody, kuprv0607-21-59 08:52:00 Test Item Value Reference Range Interpretation Comments hepatitis C antibody, serum (test code 0.3 0.0-0.9 = 5199-5) [facility]inghamrapid plasma reagin antibody, vxrfp0537-07-78 08:52:00 Test Item Value Reference Range Interpretation Comments rapid plasma reagin antibody, Non Reactive Non Reactive serum (test code = 5291-0) [facility]inghamHIV-1RNA, serum, by PCR, ghpipbvxeenb0367-23-99 08:52:00 Test Item Value Reference Range Interpretation Comments HIV-1RNA, serum, by PCR, <20 copies/mL quantitative (test code = 97011) [facility]inghamLDL cholesterol, fcwvt9300-05-18 08:52:00 Test Item Value Reference Range Interpretation Comments LDL cholesterol, serum (test code = 69 mg/dL 0-99 2088-1) [facility]inghamvery low density ifwcgjeixeqa9391-72-95 08:52:00 Test Item Value Reference Range Interpretation Comments very low density lipoproteins (test 29 mg/dL 5-40 code = 1-7) [facility]inghamHDL cholesterol, uwpex5764-12-47 08:52:00 Test Item Value Reference Range Interpretation Comments HDL cholesterol, serum (test code = 41 mg/dL >39 2084-9) [facility]inghamtriglyceride, serum, abtbfpr1540-70-45 08:52:00 Test Item Value Reference Range Interpretation Comments triglyceride, serum, fasting (test 143 mg/dL 0-149 code = 7911-8) [facility]inghamcholesterol, fmnkr7398-12-64 08:52:00 Test Item Value Reference Range Interpretation Comments cholesterol, serum (test code = 139 mg/dL 771-112 4617-3) [facility]inghamalanine aminotransferase (SGPT), jbsip5376-04-59 08:52:00 Test Item Value Reference Range Interpretation Comments alanine aminotransferase (SGPT), serum 11 1/L 0-32 (test code = 1742-6) [facility]inghamaspartate aminotransferase (SGOT), kyksl2838-19-44 08:52:00 Test Item Value Reference Range Interpretation Comments aspartate aminotransferase (SGOT), 12 1/L 0-40 serum (test code = 1920-8) [facility]inghamalkaline phosphatase, glqpo0131-09-39 08:52:00 Test Item Value Reference Range Interpretation Comments alkaline phosphatase, serum (test 141 1/L 39-117 H code = 1783-0) [facility]ambilirubin, serum, ywqvt8857-90-13 08:52:00 Test Item Value Reference Range Interpretation Comments bilirubin, serum, total (test code 0.3 mg/dL 0.0-1.2 = 1975-2) [facility]inghamalbumin/globulin ratio, cizwq3051-80-96 08:52:00 Test Item Value Reference Range Interpretation Comments albumin/globulin ratio, serum (test 1.7 1.2-2.2 code = 1759-0) [facility] Healthglobulin, epyih5066-37-49 08:52:00 Test Item Value Reference Range Interpretation Comments globulin, serum (test code = 2336-6) 2.5 1.5-4.5 [facility] Healthalbumin, oxeku7699-92-13 08:52:00 Test Item Value Reference Range Interpretation Comments albumin, serum (test code = 1751-7) 4.2 g/dL 3.5-5.5 [facility]protein, total, dtliq7361-14-39 08:52:00 Test Item Value Reference Range Interpretation Comments protein, total, serum (test code = 6.7 g/dL 6.0-8.5 2885-2) [facility]inghamcalcium, tkidp9295-34-65 08:52:00 Test Item Value Reference Range Interpretation Comments calcium, serum (test code = 2000-8) 9.4 mg/dL 8.7-10.2 [facility]inghamcarbon dioxide, venous hitsh2006-24-25 08:52:00 Test Item Value Reference Range Interpretation Comments carbon dioxide, venous blood (test 26 mmol/L code = 2026-1) [facility]inghamchloride, afxti7924-45-90 08:52:00 Test Item Value Reference Range Interpretation Comments chloride, serum (test code = 98 mmol/L 96-106 2075-0) [facility] Healthpotassium, zwtnn7470-74-79 08:52:00 Test Item Value Reference Range Interpretation Comments potassium, serum (test code = 4.4 mmol/L 3.5-5.2 2823-3) [facility]amsodium, roypc3393-02-73 08:52:00 Test Item Value Reference Range Interpretation Comments sodium, serum (test code = 2951-2) 140 mmol/L 134-144 [facility]inghamurea nitrogen/creatinine ratio, ddnlw1836-85-69 08:52:00 Test Item Value Reference Range Interpretation Comments urea nitrogen/creatinine ratio, serum 12 9-23 (test code = 3097-3) [facility] HealtheGFR if Ngvsqdib3915-24-64 08:52:00 Test Item Value Reference Range Interpretation Comments eGFR if 98 >59 (test code = 02624-0) mL/min/((173/100).m2) [facility]inghamEstimated Glomerular Filtration Rate (calc)2018-09-26 08:52:00 Test Item Value Reference Range Interpretation Comments Estimated Glomerular 85 >59 Filtration Rate (calc) mL/min/((173/100).m2 (test code = 32614-5) ) [facility]inghamcreatinine, bxmhx9462-79-50 08:52:00 Test Item Value Reference Range Interpretation Comments creatinine, serum (test code = 0.77 mg/dL 0.57-1.00 2160-0) [facility]inghamurea nitrogen, mycxo0634-08-26 08:52:00 Test Item Value Reference Range Interpretation Comments urea nitrogen, blood (test code = 9 mg/dL 6-24 3094-0) [facility] glucose, lgzbaa4077-29-28 08:52:00 Test Item Value Reference Range Interpretation Comments blood glucose, random (test code = 129 mg/dL 65-99 H 2339-0) [facility]inghamimmature granulocytes, percentage of total cells, blood 2018-09-26 08:52:00 Test Item Value Reference Range Interpretation Comments immature granulocytes, percentage of 0 % total cells, blood (test code = 05204-8) [facility] Healthbasophil count, wgegcydn4440-85-77 08:52:00 Test Item Value Reference Range Interpretation Comments basophil count, absolute (test 0.0 x10E3/uL 0.0-0.2 code = 41881-7) [facility] HealthEosinophil Absolute Ridhu0258-03-48 08:52:00 Test Item Value Reference Range Interpretation Comments Eosinophil Absolute Count (test 0.2 X10E3/UL 0.0-0.4 code = 53729-3) [facility]inghammonocyte count, blood, jockcjiqn4454-75-23 08:52:00 Test Item Value Reference Range Interpretation Comments monocyte count, blood, automated 0.6 X10E3/UL 0.1-0.9 (test code = 742-7) [facility]inghamlymphocyte count, blood, tuxiljbpe9522-26-85 08:52:00 Test Item Value Reference Range Interpretation Comments lymphocyte count, blood, 1.7 X10E3/UL 0.7-3.1 automated (test code = 731-0) [facility]Absolute Kcqruhzsozx6416-99-69 08:52:00 Test Item Value Reference Range Interpretation Comments Absolute Neutrophils (test code 4.3 X10E3/UL 1.4-7.0 = 35928-8) [facility]ambasophils as percent of blood vncylcxizt1389-91-19 08:52:00 Test Item Value Reference Range Interpretation Comments basophils as percent of blood 0 % leukocytes (test code = 707-0) [facility] Healtheosinophils as percent of blood hprxavimlk3423-75-96 08:52:00 Test Item Value Reference Range Interpretation Comments eosinophils as percent of blood 3 % leukocytes (test code = 713-8) [facility] Healthmonocytes as percent of blood kjfsgkkkmm4399-14-06 08:52:00 Test Item Value Reference Range Interpretation Comments monocytes as percent of blood 8 % leukocytes (test code = 5905-5) [facility]inghamlymphocytes as percent of blood kzdzfllsiu3992-76-02 08:52:00 Test Item Value Reference Range Interpretation Comments lymphocytes as percent of blood 25 % leukocytes (test code = 736-9) [facility]inghamneutrophils as percent of blood fmrfdagrnq8056-82-37 08:52:00 Test Item Value Reference Range Interpretation Comments neutrophils as percent of blood 64 % leukocytes (test code = 770-8) [facility]inghamplatelet ckyzv2754-49-11 08:52:00 Test Item Value Reference Range Interpretation Comments platelet count (test code = 173 X10E3/UL 150-379 777-3) [facility]inghamred blood cell distribution pxqpl2321-42-22 08:52:00 Test Item Value Reference Range Interpretation Comments red blood cell distribution width 12.4 % 12.3-15.4 (test code = 788-0) [facility] corpuscular hemoglobin concentration, ZPG7464-82-24 08:52:00 Test Item Value Reference Range Interpretation Comments mean corpuscular hemoglobin 34.0 G/DL 31.5-35.7 concentration, RBC (test code = 786-4) [facility], PEI9481-14-00 08:52:00 Test Item Value Reference Range Interpretation Comments mean corpuscular hemoglobin, RBC 34.7 pg 26.6-33.0 H (test code = 785-6) [facility] corpuscular volume, FLJ2842-56-13 08:52:00 Test Item Value Reference Range Interpretation Comments mean corpuscular volume, RBC (test 102 fL 79-97 H code = 787-2) [facility]hematocrit, stysz0934-26-24 08:52:00 Test Item Value Reference Range Interpretation Comments hematocrit, blood (test code = 4544-3) 40.9 % 34.0-46.6 [facility]inghamhemoglobin, krijc7548-63-75 08:52:00 Test Item Value Reference Range Interpretation Comments hemoglobin, blood (test code = 13.9 g/dL 11.1-15.9 718-7) [facility]inghamerythrocyte (RBC) tmfhv0684-97-27 08:52:00 Test Item Value Reference Range Interpretation Comments erythrocyte (RBC) count (test 4.01 X10E6/UL 3.77-5.28 code = 789-8) [facility]inghamleukocyte count, udbuj6001-44-37 08:52:00 Test Item Value Reference Range Interpretation Comments leukocyte count, blood (test 6.8 X10E3/UL 3.4-10.8 code = 6690-2) [facility]inghamCD4/CD8 iccgl0201-90-33 08:52:00 Test Item Value Reference Range Interpretation Comments CD4/CD8 ratio (test code = 55082) 0.98 0.92-3.72 [facility]inghamT-suppressor cells (CD8) as percent of blood lymphocytes 2018-09-26 08:52:00 Test Item Value Reference Range Interpretation Comments T-suppressor cells (CD8) as percent of 26.4 % 12.0-35.5 blood lymphocytes (test code = 3517) [facility] [facility] [id number] 08:52:00 Test Item Value Reference Range Interpretation Comments absolute CD8 (test code = 01288) 449 109-897 [facility] cells (CD4) as percent of blood lymphocytes 2018-09-26 08:52:00 Test Item Value Reference Range Interpretation Comments T-helper cells (CD4) as percent of 25.9 % 30.8-58.5 L blood lymphocytes (test code = 8123-2) [facility] cells (CD4) [id number] 08:52:00 Test Item Value Reference Range Interpretation Comments T-helper cells (CD4) count (test code 440 /UL 359-1519 = 34008-6) [facility]rapid plasma reagin antibody, [id number] 09:22:00 Test Item Value Reference Range Interpretation Comments rapid plasma reagin antibody, Non Reactive Non Reactive serum (test code = 5291-0) [facility]HIV-1RNA, serum, by PCR, [id number] 09:22:00 Test Item Value Reference Range Interpretation Comments HIV-1RNA, serum, by PCR, <20 copies/mL quantitative (test code = 03871) [facility]LDL cholesterol, [id number] 09:22:00 Test Item Value Reference Range Interpretation Comments LDL cholesterol, serum (test code = 63 mg/dL 0-99 2088-1) [facility] [place] low density swjoxmzbwnps1586-07-76 09:22:00 Test Item Value Reference Range Interpretation Comments very low density lipoproteins (test 53 mg/dL 5-40 H code = 1-7) [facility]HDL cholesterol, [id number] 09:22:00 Test Item Value Reference Range Interpretation Comments HDL cholesterol, serum (test code = 38 mg/dL >39 L 2084-9) [facility]triglyceride, serum, [id number] 09:22:00 Test Item Value Reference Range Interpretation Comments triglyceride, serum, fasting (test 265 mg/dL 0-149 H code = 2571-8) [facility]cholesterol, [id number] 09:22:00 Test Item Value Reference Range Interpretation Comments cholesterol, serum (test code = 154 mg/dL 085-488 4329-3) [facility]alanine aminotransferase (SGPT), [id number] 09:22:00 Test Item Value Reference Range Interpretation Comments alanine aminotransferase (SGPT), serum 6 1/L 0-32 (test code = 1742-6) [facility]inghamaspartate aminotransferase (SGOT), [id number] 09:22:00 Test Item Value Reference Range Interpretation Comments aspartate aminotransferase (SGOT), 8 1/L 0-40 serum (test code = 1920-8) [facility]alkaline phosphatase, [id number] 09:22:00 Test Item Value Reference Range Interpretation Comments alkaline phosphatase, serum (test code 93 1/L 39-117 = 1783-0) [facility] [place]ilirubin, serum, [id number] 09:22:00 Test Item Value Reference Range Interpretation Comments bilirubin, serum, total (test code 0.2 mg/dL 0.0-1.2 = 1975-2) [facility]albumin/globulin ratio, [id number] 09:22:00 Test Item Value Reference Range Interpretation Comments albumin/globulin ratio, serum (test 1.3 1.2-2.2 code = 1759-0) [facility] [place]globulin, [id number] 09:22:00 Test Item Value Reference Range Interpretation Comments globulin, serum (test code = 2336-6) 3.1 1.5-4.5 [facility] Healthalbumin, [id number] 09:22:00 Test Item Value Reference Range Interpretation Comments albumin, serum (test code = 1751-7) 4.0 g/dL 3.5-5.5 [facility] [place]protein, total, [id number] 09:22:00 Test Item Value Reference Range Interpretation Comments protein, total, serum (test code = 7.1 g/dL 6.0-8.5 2885-2) [facility] Healthcalcium, [id number] 09:22:00 Test Item Value Reference Range Interpretation Comments calcium, serum (test code = 1999-8) 9.6 mg/dL 8.7-10.2 [facility] [place]carbon dioxide, venous [id number] 09:22:00 Test Item Value Reference Range Interpretation Comments carbon dioxide, venous blood (test 28 mmol/L 18-29 code = 7-1) [facility] Healthchloride, [id number] 09:22:00 Test Item Value Reference Range Interpretation Comments chloride, serum (test code = 98 mmol/L 96-106 2075-0) [facility]ampotassium, [id number] 09:22:00 Test Item Value Reference Range Interpretation Comments potassium, serum (test code = 4.5 mmol/L 3.5-5.2 2823-3) [facility]amsodium, [id number] 09:22:00 Test Item Value Reference Range Interpretation Comments sodium, serum (test code = 2951-2) 140 mmol/L 134-144 [facility] [place]urea nitrogen/creatinine ratio, [id number] 09:22:00 Test Item Value Reference Range Interpretation Comments urea nitrogen/creatinine ratio, serum 12 9-23 (test code = 3097-3) [facility]hameGFR if Ztaakjqe1825-19-55 09:22:00 Test Item Value Reference Range Interpretation Comments eGFR if 111 >59 (test code = 62037-7) mL/min/((173/100).m2) [facility]inghamEstimated Glomerular Filtration Rate (calc)2018-02-07 09:22:00 Test Item Value Reference Range Interpretation Comments Estimated Glomerular 96 >59 Filtration Rate (calc) mL/min/((173/100).m2 (test code = 41488-9) ) [facility]creatinine, [id number] 09:22:00 Test Item Value Reference Range Interpretation Comments creatinine, serum (test code = 0.69 mg/dL 0.57-1.00 2160-0) [facility]inghamurea nitrogen, [id number] 09:22:00 Test Item Value Reference Range Interpretation Comments urea nitrogen, blood (test code = 8 mg/dL 6-24 3094-0) [facility] [place] glucose, [id number] 09:22:00 Test Item Value Reference Range Interpretation Comments blood glucose, random (test code = 154 mg/dL 65-99 H 2339-0) [facility] [place]immature granulocytes, percentage of total cells, blood 2018-02-07 09:22:00 Test Item Value Reference Range Interpretation Comments immature granulocytes, percentage of 0 % total cells, blood (test code = 39449-8) [facility]ambasophil count, [id number] 09:22:00 Test Item Value Reference Range Interpretation Comments basophil count, absolute (test 0.0 x10E3/uL 0.0-0.2 code = 50294-5) [facility]inghamEosinophil Absolute [id number] 09:22:00 Test Item Value Reference Range Interpretation Comments Eosinophil Absolute Count (test 0.1 X10E3/UL 0.0-0.4 code = 24567-7) [facility]monocyte count, blood, vncxtghnl9446-22-78 09:22:00 Test Item Value Reference Range Interpretation Comments monocyte count, blood, automated 0.4 X10E3/UL 0.1-0.9 (test code = 742-7) [facility] [place]lymphocyte count, blood, [id number] 09:22:00 Test Item Value Reference Range Interpretation Comments lymphocyte count, blood, 1.4 X10E3/UL 0.7-3.1 automated (test code = 731-0) [facility] [place] Gzemadvfhah6356-53-57 09:22:00 Test Item Value Reference Range Interpretation Comments Absolute Neutrophils (test code 3.3 X10E3/UL 1.4-7.0 = 39036-9) [facility] Healthbasophils as percent of blood lxxinvkvjl6591-65-20 09:22:00 Test Item Value Reference Range Interpretation Comments basophils as percent of blood 0 % leukocytes (test code = 707-0) [facility]ameosinophils as percent of blood hgqyzbqkzz6481-67-81 09:22:00 Test Item Value Reference Range Interpretation Comments eosinophils as percent of blood 2 % leukocytes (test code = 713-8) [facility] Healthmonocytes as percent of blood jevqkjirrc2074-79-07 09:22:00 Test Item Value Reference Range Interpretation Comments monocytes as percent of blood 8 % leukocytes (test code = 5905-5) [facility]lymphocytes as percent of blood knrfylkhdm6275-80-74 09:22:00 Test Item Value Reference Range Interpretation Comments lymphocytes as percent of blood 26 % leukocytes (test code = 736-9) [facility]inghamneutrophils as percent of blood dbmtemruai9603-26-91 09:22:00 Test Item Value Reference Range Interpretation Comments neutrophils as percent of blood 64 % leukocytes (test code = 770-8) [facility] [place]inghamplatelet dtfmi3623-92-03 09:22:00 Test Item Value Reference Range Interpretation Comments platelet count (test code = 194 X10E3/UL 150-379 777-3) [facility] [place]red blood cell distribution wrjlu9227-79-35 09:22:00 Test Item Value Reference Range Interpretation Comments red blood cell distribution width 14.1 % 12.3-15.4 (test code = 788-0) [facility] corpuscular hemoglobin concentration, [id number] 09:22:00 Test Item Value Reference Range Interpretation Comments mean corpuscular hemoglobin 33.9 G/DL 31.5-35.7 concentration, RBC (test code = 786-4) [facility], [id number] 09:22:00 Test Item Value Reference Range Interpretation Comments mean corpuscular hemoglobin, RBC 34.2 pg 26.6-33.0 H (test code = 785-6) [facility] corpuscular volume, [id number] 09:22:00 Test Item Value Reference Range Interpretation Comments mean corpuscular volume, RBC (test 101 fL 79-97 H code = 787-2) [facility]hematocrit, [id number] 09:22:00 Test Item Value Reference Range Interpretation Comments hematocrit, blood (test code = 4544-3) 41.3 % 34.0-46.6 [facility]hemoglobin, [id number] 09:22:00 Test Item Value Reference Range Interpretation Comments hemoglobin, blood (test code = 14.0 g/dL 11.1-15.9 718-7) [facility]erythrocyte (RBC) [id number] 09:22:00 Test Item Value Reference Range Interpretation Comments erythrocyte (RBC) count (test 4.09 X10E6/UL 3.77-5.28 code = 789-8) [facility]leukocyte count, [id number] 09:22:00 Test Item Value Reference Range Interpretation Comments leukocyte count, blood (test 5.1 X10E3/UL 3.4-10.8 code = 6690-2) [facility]CD4/CD8 pwgsj3345-96-65 09:22:00 Test Item Value Reference Range Interpretation Comments CD4/CD8 ratio (test code = 49975) 0.85 0.92-3.72 L [facility]T-suppressor cells (CD8) as percent of blood lymphocytes 2018-02-07 09:22:00 Test Item Value Reference Range Interpretation Comments T-suppressor cells (CD8) as percent of 29.5 % 12.0-35.5 blood lymphocytes (test code = 3517) [facility] [place]absolute [id number] 09:22:00 Test Item Value Reference Range Interpretation Comments absolute CD8 (test code = 35690) 413 109-897 [facility]T-helper cells (CD4) as percent of blood lymphocytes 2018-02-07 09:22:00 Test Item Value Reference Range Interpretation Comments T-helper cells (CD4) as percent of 25.0 % 30.8-58.5 L blood lymphocytes (test code = 8123-2) [facility]T-helper cells (CD4) [id number] 09:22:00 Test Item Value Reference Range Interpretation Comments T-helper cells (CD4) count (test code 350 /UL 359-1519 L = 13835-9) [facility]rapid plasma reagin antibody, plles0372-18-17 10:27:00 Test Item Value Reference Range Interpretation Comments rapid plasma reagin antibody, Non Reactive Non Reactive serum (test code = 5291-0) [facility]HIV-1RNA, serum, by PCR, vgvdhiefcncy0173-26-77 10:27:00 Test Item Value Reference Range Interpretation Comments HIV-1RNA, serum, by PCR, quantitative 50 /mL (test code = 91170) [facility]LDL cholesterol, [id number] 10:27:00 Test Item Value Reference Range Interpretation Comments LDL cholesterol, serum (test code = 63 mg/dL 0-99 2088-1) [facility] [place]very low density jppzkaddumzz6332-70-35 10:27:00 Test Item Value Reference Range Interpretation Comments very low density lipoproteins (test 32 mg/dL 5-40 code = 2091-7) [facility]HDL cholesterol, [id number] 10:27:00 Test Item Value Reference Range Interpretation Comments HDL cholesterol, serum (test code = 47 mg/dL >39 2084-9) [facility]triglyceride, serum, [id number] 10:27:00 Test Item Value Reference Range Interpretation Comments triglyceride, serum, fasting (test 162 mg/dL 0-149 H code = 2571-8) [facility]cholesterol, ezahr6532-68-80 10:27:00 Test Item Value Reference Range Interpretation Comments cholesterol, serum (test code = 142 mg/dL 610-625 5365-3) [facility] [place]alanine aminotransferase (SGPT), izxns4925-50-87 10:27:00 Test Item Value Reference Range Interpretation Comments alanine aminotransferase (SGPT), serum 9 1/L 0-32 (test code = 1742-6) [facility]inghamaspartate aminotransferase (SGOT), sjfqn8342-64-88 10:27:00 Test Item Value Reference Range Interpretation Comments aspartate aminotransferase (SGOT), 9 1/L 0-40 serum (test code = 1920-8) [facility]alkaline phosphatase, [id number] 10:27:00 Test Item Value Reference Range Interpretation Comments alkaline phosphatase, serum (test 100 1/L 39-117 code = 1783-0) [facility] Healthbilirubin, serum, [id number] 10:27:00 Test Item Value Reference Range Interpretation Comments bilirubin, serum, total (test code 0.3 mg/dL 0.0-1.2 = 1975-2) [facility] Healthalbumin/globulin ratio, [id number] 10:27:00 Test Item Value Reference Range Interpretation Comments albumin/globulin ratio, serum (test 1.4 1.2-2.2 code = 1759-0) [facility] Healthglobulin, [id number] 10:27:00 Test Item Value Reference Range Interpretation Comments globulin, serum (test code = 2336-6) 2.9 1.5-4.5 [facility] Healthalbumin, [id number] 10:27:00 Test Item Value Reference Range Interpretation Comments albumin, serum (test code = 1751-7) 4.2 g/dL 3.5-5.5 [facility] Healthprotein, total, [id number] 10:27:00 Test Item Value Reference Range Interpretation Comments protein, total, serum (test code = 7.1 g/dL 6.0-8.5 2885-2) [facility]calcium, [id number] 10:27:00 Test Item Value Reference Range Interpretation Comments calcium, serum (test code = 1999-8) 9.6 mg/dL 8.7-10.2 [facility] [place]carbon dioxide, venous edvyi1189-94-72 10:27:00 Test Item Value Reference Range Interpretation Comments carbon dioxide, venous blood (test 27 mmol/L 18-29 code = 2026-1) [facility] Healthchloride, gtrxh0033-60-25 10:27:00 Test Item Value Reference Range Interpretation Comments chloride, serum (test code = 96 mmol/L 96-106 5-0) [facility] Healthpotassium, [id number] 10:27:00 Test Item Value Reference Range Interpretation Comments potassium, serum (test code = 5.1 mmol/L 3.5-5.2 2823-3) [facility]amsodium, [id number] 10:27:00 Test Item Value Reference Range Interpretation Comments sodium, serum (test code = 2951-2) 138 mmol/L 134-144 [facility]urea nitrogen/creatinine ratio, igmlu4141-38-61 10:27:00 Test Item Value Reference Range Interpretation Comments urea nitrogen/creatinine ratio, serum 14 9-23 (test code = 3097-3) [facility] HealtheGFR if Kkzklgpc5108-77-98 10:27:00 Test Item Value Reference Range Interpretation Comments eGFR if 86 >59 (test code = 40568-4) mL/min/((173/100).m2) [facility]inghamEstimated Glomerular Filtration Rate (calc)2017-10-13 10:27:00 Test Item Value Reference Range Interpretation Comments Estimated Glomerular 74 >59 Filtration Rate (calc) mL/min/((173/100).m2 (test code = 59840-2) ) [facility]creatinine, [id number] 10:27:00 Test Item Value Reference Range Interpretation Comments creatinine, serum (test code = 0.87 mg/dL 0.57-1.00 2160-0) [facility]urea nitrogen, [id number] 10:27:00 Test Item Value Reference Range Interpretation Comments urea nitrogen, blood (test code = 12 mg/dL 6-24 3094-0) [facility] [place] glucose, burpez9563-30-73 10:27:00 Test Item Value Reference Range Interpretation Comments blood glucose, random (test code = 119 mg/dL 65-99 H 2339-0) [facility] [place]immature granulocytes, percentage of total cells, blood 2017-10-13 10:27:00 Test Item Value Reference Range Interpretation Comments immature granulocytes, percentage of 0 % total cells, blood (test code = 95221-7) [facility] [place]asophil count, gvdmspav0408-62-65 10:27:00 Test Item Value Reference Range Interpretation Comments basophil count, absolute (test 0.0 x10E3/uL 0.0-0.2 code = 87421-8) [facility]inghamEosinophil Absolute [id number] 10:27:00 Test Item Value Reference Range Interpretation Comments Eosinophil Absolute Count (test 0.1 X10E3/UL 0.0-0.4 code = 80503-0) [facility]inghammonocyte count, blood, djgfniicz2868-63-11 10:27:00 Test Item Value Reference Range Interpretation Comments monocyte count, blood, automated 0.5 X10E3/UL 0.1-0.9 (test code = 742-7) [facility] [place]lymphocyte count, blood, xtkosnzrw7318-61-17 10:27:00 Test Item Value Reference Range Interpretation Comments lymphocyte count, blood, 1.7 X10E3/UL 0.7-3.1 automated (test code = 731-0) [facility] [place]Absolute Ulckxttghlm0784-06-89 10:27:00 Test Item Value Reference Range Interpretation Comments Absolute Neutrophils (test code 5.4 X10E3/UL 1.4-7.0 = 31525-8) [facility]ambasophils as percent of blood xkjazdumhj9322-91-69 10:27:00 Test Item Value Reference Range Interpretation Comments basophils as percent of blood 0 % leukocytes (test code = 707-0) [facility]ameosinophils as percent of blood czhknhzdqb3167-94-00 10:27:00 Test Item Value Reference Range Interpretation Comments eosinophils as percent of blood 1 % leukocytes (test code = 713-8) [facility] Healthmonocytes as percent of blood rusttflosp9857-86-36 10:27:00 Test Item Value Reference Range Interpretation Comments monocytes as percent of blood 7 % leukocytes (test code = 5905-5) [facility]lymphocytes as percent of blood gacarvojxg2971-60-91 10:27:00 Test Item Value Reference Range Interpretation Comments lymphocytes as percent of blood 22 % leukocytes (test code = 736-9) [facility]inghamneutrophils as percent of blood yrxwwjdisl9409-08-52 10:27:00 Test Item Value Reference Range Interpretation Comments neutrophils as percent of blood 70 % leukocytes (test code = 770-8) [facility]inghamplatelet vwgvn8305-80-43 10:27:00 Test Item Value Reference Range Interpretation Comments platelet count (test code = 193 X10E3/UL 150-379 777-3) [facility]red blood cell distribution jepkm2748-37-93 10:27:00 Test Item Value Reference Range Interpretation Comments red blood cell distribution width 13.7 % 12.3-15.4 (test code = 788-0) [facility]mean corpuscular hemoglobin concentration, [id number] 10:27:00 Test Item Value Reference Range Interpretation Comments mean corpuscular hemoglobin 35.0 G/DL 31.5-35.7 concentration, RBC (test code = 786-4) [facility]mean corpuscular hemoglobin, [id number] 10:27:00 Test Item Value Reference Range Interpretation Comments mean corpuscular hemoglobin, RBC 35.6 pg 26.6-33.0 H (test code = 785-6) [facility]mean corpuscular volume, [id number] 10:27:00 Test Item Value Reference Range Interpretation Comments mean corpuscular volume, RBC (test 102 fL 79-97 H code = 787-2) [facility]inghamhematocrit, [id number] 10:27:00 Test Item Value Reference Range Interpretation Comments hematocrit, blood (test code = 4544-3) 43.7 % 34.0-46.6 [facility]inghamhemoglobin, [id number] 10:27:00 Test Item Value Reference Range Interpretation Comments hemoglobin, blood (test code = 15.3 g/dL 11.1-15.9 718-7) [facility]inghamerythrocyte (RBC) qfmxn4263-53-77 10:27:00 Test Item Value Reference Range Interpretation Comments erythrocyte (RBC) count (test 4.30 X10E6/UL 3.77-5.28 code = 789-8) [facility]inghamleukocyte count, [id number] 10:27:00 Test Item Value Reference Range Interpretation Comments leukocyte count, blood (test 7.7 X10E3/UL 3.4-10.8 code = 6690-2) [facility]inghamCD4/CD8 klbmi0149-25-67 10:27:00 Test Item Value Reference Range Interpretation Comments CD4/CD8 ratio (test code = 94406) 0.70 0.92-3.72 L [facility]inghamT-suppressor cells (CD8) as percent of blood lymphocytes 2017-10-13 10:27:00 Test Item Value Reference Range Interpretation Comments T-suppressor cells (CD8) as percent of 27.8 % 12.0-35.5 blood lymphocytes (test code = 3517) [facility] [place]absolute [id number] 10:27:00 Test Item Value Reference Range Interpretation Comments absolute CD8 (test code = 97800) 473 109-897 [facility]inghamT-helper cells (CD4) as percent of blood lymphocytes 2017-10-13 10:27:00 Test Item Value Reference Range Interpretation Comments T-helper cells (CD4) as percent of 19.4 % 30.8-58.5 L blood lymphocytes (test code = 8123-2) [facility]inghamT-helper cells (CD4) pteaa8009-64-56 10:27:00 Test Item Value Reference Range Interpretation Comments T-helper cells (CD4) count (test code 330 /UL 359-1519 L = 35743-1) [facility] plasma reagin antibody, ybigz1988-65-01 13:13:00 Test Item Value Reference Range Interpretation Comments rapid plasma reagin antibody, Non Reactive Non Reactive serum (test code = 5291-0) [facility]HIV-1RNA, serum, by PCR, mhjythhdwfbw4520-89-06 13:13:00 Test Item Value Reference Range Interpretation Comments HIV-1RNA, serum, by PCR, 72232 /mL quantitative (test code = 58733) [facility]inghamLDL cholesterol, [id number] 13:13:00 Test Item Value Reference Range Interpretation Comments LDL cholesterol, serum (test code = 38 mg/dL 0-99 2088-1) [facility] low density xwqknksnbacf4603-75-59 13:13:00 Test Item Value Reference Range Interpretation Comments very low density lipoproteins (test 24 mg/dL 5-40 code = 1-7) [facility]HDL cholesterol, [id number] 13:13:00 Test Item Value Reference Range Interpretation Comments HDL cholesterol, serum (test code = 36 mg/dL >39 L 5-9) [facility]triglyceride, serum, uxgkzgd6402-29-91 13:13:00 Test Item Value Reference Range Interpretation Comments triglyceride, serum, fasting (test 119 mg/dL 0-149 code = 2571-8) [facility]inghamcholesterol, [id number] 13:13:00 Test Item Value Reference Range Interpretation Comments cholesterol, serum (test code = 98 mg/dL 100-199 L 3-3) [facility]alanine aminotransferase (SGPT), xzlce7689-90-60 13:13:00 Test Item Value Reference Range Interpretation Comments alanine aminotransferase (SGPT), serum 19 1/L 0-32 (test code = 1742-6) [facility]inghamaspartate aminotransferase (SGOT), eawee5896-31-21 13:13:00 Test Item Value Reference Range Interpretation Comments aspartate aminotransferase (SGOT), 18 1/L 0-40 serum (test code = 1920-8) [facility]inghamalkaline phosphatase, [id number] 13:13:00 Test Item Value Reference Range Interpretation Comments alkaline phosphatase, serum (test 110 1/L 39-117 code = 1783-0) [facility]ambilirubin, serum, [id number] 13:13:00 Test Item Value Reference Range Interpretation Comments bilirubin, serum, total (test code 0.3 mg/dL 0.0-1.2 = 1975-2) [facility]inghamalbumin/globulin ratio, [id number] 13:13:00 Test Item Value Reference Range Interpretation Comments albumin/globulin ratio, serum (test 1.4 1.2-2.2 code = 1759-0) [facility] Healthglobulin, [id number] 13:13:00 Test Item Value Reference Range Interpretation Comments globulin, serum (test code = 2336-6) 2.7 1.5-4.5 [facility] Healthalbumin, [id number] 13:13:00 Test Item Value Reference Range Interpretation Comments albumin, serum (test code = 1751-7) 3.8 g/dL 3.5-5.5 [facility]protein, total, jybzk2894-34-10 13:13:00 Test Item Value Reference Range Interpretation Comments protein, total, serum (test code = 6.5 g/dL 6.0-8.5 2885-2) [facility]inghamcalcium, kkmwz8748-22-94 13:13:00 Test Item Value Reference Range Interpretation Comments calcium, serum (test code = 2000-8) 8.9 mg/dL 8.7-10.2 [facility]inghamcarbon dioxide, venous mabbm9343-48-04 13:13:00 Test Item Value Reference Range Interpretation Comments carbon dioxide, venous blood (test 24 mmol/L 18- code = 2027-1) [facility] Healthchloride, [id number] 13:13:00 Test Item Value Reference Range Interpretation Comments chloride, serum (test code = 100 mmol/L 96-106 2075-0) [facility] Healthpotassium, [id number] 13:13:00 Test Item Value Reference Range Interpretation Comments potassium, serum (test code = 4.1 mmol/L 3.5-5.2 2823-3) [facility] Healthsodium, [id number] 13:13:00 Test Item Value Reference Range Interpretation Comments sodium, serum (test code = 2951-2) 142 mmol/L 134-144 [facility]inghamurea nitrogen/creatinine ratio, qjpnz6798-56-59 13:13:00 Test Item Value Reference Range Interpretation Comments urea nitrogen/creatinine ratio, serum 13 9-23 (test code = 3097-3) [facility]altheGFR if Ccktvcqq7414-17-73 13:13:00 Test Item Value Reference Range Interpretation Comments eGFR if 102 >59 (test code = 73827-8) mL/min/((173/100).m2) [facility] Gl[facility] Fil[facility] Rate (calc)2017-05-25 13:13:00 Test Item Value Reference Range Interpretation Comments Estimated Glomerular 89 >59 Filtration Rate (calc) mL/min/((173/100).m2 (test code = 38439-7) ) [facility]inine, [id number] 13:13:00 Test Item Value Reference Range Interpretation Comments creatinine, serum (test code = 0.75 mg/dL 0.57-1.00 2160-0) [facility]ingham[facility]a nitrogen, waoyn9034-43-76 13:13:00 Test Item Value Reference Range Interpretation Comments urea nitrogen, blood (test code = 10 mg/dL 6-24 3094-0) [facility] glucose, qbkmne6264-07-56 13:13:00 Test Item Value Reference Range Interpretation Comments blood glucose, random (test code = 123 mg/dL 65-99 H 2339-0) [facility]immature granulocytes, percentage of total cells, blood 2017-05-25 13:13:00 Test Item Value Reference Range Interpretation Comments immature granulocytes, percentage of 0 % total cells, blood (test code = 22222-6) [facility]ophil count, xgckbzgx1603-68-01 13:13:00 Test Item Value Reference Range Interpretation Comments basophil count, absolute (test 0.0 x10E3/uL 0.0-0.2 code = 80356-0) [facility] HealthEosinophil Absolute Onzen3369-85-01 13:13:00 Test Item Value Reference Range Interpretation Comments Eosinophil Absolute Count (test 0.1 X10E3/UL 0.0-0.4 code = 81941-4) [facility] Healthmonocyte count, blood, beiwpzgbz8360-48-23 13:13:00 Test Item Value Reference Range Interpretation Comments monocyte count, blood, automated 0.6 X10E3/UL 0.1-0.9 (test code = 742-7) [facility] count, blood, svxsizjnv4665-67-03 13:13:00 Test Item Value Reference Range Interpretation Comments lymphocyte count, blood, 0.9 X10E3/UL 0.7-3.1 automated (test code = 731-0) [facility]Absolute Laggtdiyivu9011-90-15 13:13:00 Test Item Value Reference Range Interpretation Comments Absolute Neutrophils (test code 3.6 X10E3/UL 1.4-7.0 = 89666-7) [facility] as percent of blood fweznlklwz9012-38-84 13:13:00 Test Item Value Reference Range Interpretation Comments basophils as percent of blood 0 % leukocytes (test code = 707-0) [facility] Healtheosinophils as percent of blood ugrlnbkgef0435-62-70 13:13:00 Test Item Value Reference Range Interpretation Comments eosinophils as percent of blood 2 % leukocytes (test code = 713-8) [facility] Healthmonocytes as percent of blood pnoxbbjcnw6256-65-46 13:13:00 Test Item Value Reference Range Interpretation Comments monocytes as percent of blood 11 % leukocytes (test code = 5905-5) [facility]lymphocytes as percent of blood imgdlsxkmq8488-73-06 13:13:00 Test Item Value Reference Range Interpretation Comments lymphocytes as percent of blood 17 % leukocytes (test code = 736-9) [facility] Healthneutrophils as percent of blood stypczkufu8395-62-54 13:13:00 Test Item Value Reference Range Interpretation Comments neutrophils as percent of blood 70 % leukocytes (test code = 770-8) [facility]inghamplatelet hqwqk1675-78-78 13:13:00 Test Item Value Reference Range Interpretation Comments platelet count (test code = 159 X10E3/UL 150-379 777-3) [facility]red blood cell distribution xgxlh6497-57-20 13:13:00 Test Item Value Reference Range Interpretation Comments red blood cell distribution width 12.4 % 12.3-15.4 (test code = 788-0) [facility] corpuscular hemoglobin concentration, [id number] 13:13:00 Test Item Value Reference Range Interpretation Comments mean corpuscular hemoglobin 35.4 G/DL 31.5-35.7 concentration, RBC (test code = 786-4) [facility] corpuscular hemoglobin, [id number] 13:13:00 Test Item Value Reference Range Interpretation Comments mean corpuscular hemoglobin, RBC 35.0 pg 26.6-33.0 H (test code = 785-6) [facility], [id number] 13:13:00 Test Item Value Reference Range Interpretation Comments mean corpuscular volume, RBC (test code 99 fL 79-97 H = 787-2) [facility]hematocrit, bvzyl8990-20-13 13:13:00 Test Item Value Reference Range Interpretation Comments hematocrit, blood (test code = 4544-3) 40.4 % 34.0-46.6 [facility]hemoglobin, vxyil4928-48-14 13:13:00 Test Item Value Reference Range Interpretation Comments hemoglobin, blood (test code = 14.3 g/dL 11.1-15.9 718-7) [facility]erythrocyte (RBC) weyws2386-29-09 13:13:00 Test Item Value Reference Range Interpretation Comments erythrocyte (RBC) count (test 4.09 X10E6/UL 3.77-5.28 code = 789-8) [facility]leukocyte count, oalrk2598-29-41 13:13:00 Test Item Value Reference Range Interpretation Comments leukocyte count, blood (test 5.1 X10E3/UL 3.4-10.8 code = 6690-2) [facility]inghamCD4/CD8 vcsel0273-84-03 13:13:00 Test Item Value Reference Range Interpretation Comments CD4/CD8 ratio (test code = 07400) 0.51 0.92-3.72 L [facility]inghamT-suppressor cells (CD8) as percent of blood lymphocytes 2017-05-25 13:13:00 Test Item Value Reference Range Interpretation Comments T-suppressor cells (CD8) as percent of 30.7 % 12.0-35.5 blood lymphocytes (test code = 3517) [facility]absolute [id number] 13:13:00 Test Item Value Reference Range Interpretation Comments absolute CD8 (test code = 59573) 276 109-897 [facility]inghamT-helper cells (CD4) as percent of blood lymphocytes 2017-05-25 13:13:00 Test Item Value Reference Range Interpretation Comments T-helper cells (CD4) as percent of 15.7 % 30.8-58.5 L blood lymphocytes (test code = 8123-2) [facility]T-helper cells (CD4) irttn1875-51-67 13:13:00 Test Item Value Reference Range Interpretation Comments T-helper cells (CD4) count (test code 141 /UL 359-1519 L = 55636-9) [facility]inghamrapid plasma reagin antibody, vokoz9956-12-60 09:12:00 Test Item Value Reference Range Interpretation Comments rapid plasma reagin antibody, Non Reactive Non Reactive serum (test code = 5291-0) [facility]inghamHIV-1RNA, serum, by PCR, cusnxebxgroq2542-83-40 09:12:00 Test Item Value Reference Range Interpretation Comments HIV-1RNA, serum, by PCR, <20 copies/mL quantitative (test code = 19699) [facility]inghamalanine aminotransferase (SGPT), crdbb5049-54-87 09:12:00 Test Item Value Reference Range Interpretation Comments alanine aminotransferase (SGPT), serum 12 1/L 0-32 (test code = 1742-6) [facility]inghamaspartate aminotransferase (SGOT), axgwq1716-80-46 09:12:00 Test Item Value Reference Range Interpretation Comments aspartate aminotransferase (SGOT), 12 1/L 0-40 serum (test code = 1920-8) [facility]inghamalkaline phosphatase, lrdrh0841-09-42 09:12:00 Test Item Value Reference Range Interpretation Comments alkaline phosphatase, serum (test 146 1/L 39-117 H code = 1783-0) [facility] Healthbilirubin, serum, apoah0304-07-75 09:12:00 Test Item Value Reference Range Interpretation Comments bilirubin, serum, total (test code 0.3 mg/dL 0.0-1.2 = 1975-2) [facility] Healthalbumin/globulin ratio, jddzc6407-64-31 09:12:00 Test Item Value Reference Range Interpretation Comments albumin/globulin ratio, serum (test 1.6 1.2-2.2 code = 1759-0) [facility] Healthglobulin, fddqj4023-57-75 09:12:00 Test Item Value Reference Range Interpretation Comments globulin, serum (test code = 2336-6) 2.5 1.5-4.5 [facility] Healthalbumin, [id number] 09:12:00 Test Item Value Reference Range Interpretation Comments albumin, serum (test code = 1751-7) 3.9 g/dL 3.5-5.5 [facility]protein, total, oynvj7173-15-82 09:12:00 Test Item Value Reference Range Interpretation Comments protein, total, serum (test code = 6.4 g/dL 6.0-8.5 2885-2) [facility]inghamcalcium, blehl6929-09-97 09:12:00 Test Item Value Reference Range Interpretation Comments calcium, serum (test code = 1999-8) 9.0 mg/dL 8.7-10.2 [facility]carbon dioxide, venous tmuld9087-03-90 09:12:00 Test Item Value Reference Range Interpretation Comments carbon dioxide, venous blood (test 24 mmol/L 18-29 code = 7-1) [facility]inghamchloride, rrfhu8421-00-77 09:12:00 Test Item Value Reference Range Interpretation Comments chloride, serum (test code = 95 mmol/L 96-106 L 5-0) [facility]hampotassium, onxxr4973-88-27 09:12:00 Test Item Value Reference Range Interpretation Comments potassium, serum (test code = 4.5 mmol/L 3.5-5.2 2823-3) [facility]hamsodium, ziunk9447-35-81 09:12:00 Test Item Value Reference Range Interpretation Comments sodium, serum (test code = 2951-2) 135 mmol/L 134-144 [facility]inghamurea nitrogen/creatinine ratio, daesg3767-67-77 09:12:00 Test Item Value Reference Range Interpretation Comments urea nitrogen/creatinine ratio, serum 10 9-23 (test code = 3097-3) [facility]hameGFR if Wgnhtknl8335-04-09 09:12:00 Test Item Value Reference Range Interpretation Comments eGFR if 106 >59 (test code = 56458-4) mL/min/((173/100).m2) [facility]Estimated Glomerular Filtration Rate (calc)2017-03-01 09:12:00 Test Item Value Reference Range Interpretation Comments Estimated Glomerular 92 >59 Filtration Rate (calc) mL/min/((173/100).m2 (test code = 21790-5) ) [facility]creatinine, comxt7688-95-30 09:12:00 Test Item Value Reference Range Interpretation Comments creatinine, serum (test code = 0.73 mg/dL 0.57-1.00 2160-0) [facility] nitrogen, [id number] 09:12:00 Test Item Value Reference Range Interpretation Comments urea nitrogen, blood (test code = 7 mg/dL 6-24 3094-0) [facility] glucose, kpibtv2080-89-38 09:12:00 Test Item Value Reference Range Interpretation Comments blood glucose, random (test code = 130 mg/dL 65-99 H 2339-0) [facility]immature granulocytes, percentage of total cells, blood 2017-03-01 09:12:00 Test Item Value Reference Range Interpretation Comments immature granulocytes, percentage of 0 % total cells, blood (test code = 59134-3) [facility]ophil count, ljabbqoq3968-53-18 09:12:00 Test Item Value Reference Range Interpretation Comments basophil count, absolute (test 0.0 x10E3/uL 0.0-0.2 code = 65182-8) [facility] HealthEosinophil Absolute Aglnv2938-72-72 09:12:00 Test Item Value Reference Range Interpretation Comments Eosinophil Absolute Count (test 0.1 X10E3/UL 0.0-0.4 code = 73213-2) [facility] Healthmonocyte count, blood, pjwfaveic5333-78-82 09:12:00 Test Item Value Reference Range Interpretation Comments monocyte count, blood, automated 0.4 X10E3/UL 0.1-0.9 (test code = 742-7) [facility]lymph[facility] count, blood, lnfasdver9539-00-84 09:12:00 Test Item Value Reference Range Interpretation Comments lymphocyte count, blood, 1.1 X10E3/UL 0.7-3.1 automated (test code = 731-0) [facility]Absolute Expzkdxxapf9209-97-46 09:12:00 Test Item Value Reference Range Interpretation Comments Absolute Neutrophils (test code 3.7 X10E3/UL 1.4-7.0 = 60461-7) [facility] Healthbasophils as percent of blood mzfyxfnrac8918-95-04 09:12:00 Test Item Value Reference Range Interpretation Comments basophils as percent of blood 0 % leukocytes (test code = 707-0) [facility] Healtheosinophils as percent of blood gggczcicwf4825-28-04 09:12:00 Test Item Value Reference Range Interpretation Comments eosinophils as percent of blood 3 % leukocytes (test code = 713-8) [facility] Healthmonocytes as percent of blood vqggodzozc8699-04-60 09:12:00 Test Item Value Reference Range Interpretation Comments monocytes as percent of blood 7 % leukocytes (test code = 5905-5) [facility] Healthlymphocytes as percent of blood kemizejjcc8189-32-90 09:12:00 Test Item Value Reference Range Interpretation Comments lymphocytes as percent of blood 21 % leukocytes (test code = 736-9) [facility] Healthneutrophils as percent of blood yaihasosfp7867-03-61 09:12:00 Test Item Value Reference Range Interpretation Comments neutrophils as percent of blood 69 % leukocytes (test code = 770-8) [facility] Healthplatelet yykgd0972-57-60 09:12:00 Test Item Value Reference Range Interpretation Comments platelet count (test code = 233 X10E3/UL 150-379 777-3) [facility]red blood cell distribution pcuyi8870-81-01 09:12:00 Test Item Value Reference Range Interpretation Comments red blood cell distribution width 13.1 % 12.3-15.4 (test code = 788-0) [facility], ESX0494-07-12 09:12:00 Test Item Value Reference Range Interpretation Comments mean corpuscular hemoglobin 34.4 G/DL 31.5-35.7 concentration, RBC (test code = 786-4) [facility] corpuscular hemoglobin, [id number] 09:12:00 Test Item Value Reference Range Interpretation Comments mean corpuscular hemoglobin, RBC 35.0 pg 26.6-33.0 H (test code = 785-6) [facility] corpuscular volume, [id number] 09:12:00 Test Item Value Reference Range Interpretation Comments mean corpuscular volume, RBC (test 102 fL 79-97 H code = 787-2) [facility]ocrit, mxyxl9147-95-77 09:12:00 Test Item Value Reference Range Interpretation Comments hematocrit, blood (test code = 4544-3) 42.2 % 34.0-46.6 [facility]hemoglobin, wynyh7678-88-26 09:12:00 Test Item Value Reference Range Interpretation Comments hemoglobin, blood (test code = 14.5 g/dL 11.1-15.9 718-7) [facility]inghamerythrocyte (RBC) cxitr3492-07-91 09:12:00 Test Item Value Reference Range Interpretation Comments erythrocyte (RBC) count (test 4.14 X10E6/UL 3.77-5.28 code = 789-8) [facility]leukocyte count, pxpbl3319-39-44 09:12:00 Test Item Value Reference Range Interpretation Comments leukocyte count, blood (test 5.3 X10E3/UL 3.4-10.8 code = 6690-2) [facility]CD4/CD8 lyisg9992-19-10 09:12:00 Test Item Value Reference Range Interpretation Comments CD4/CD8 ratio (test code = 99406) 0.68 0.92-3.72 L [facility]inghamT-suppressor cells (CD8) as percent of blood lymphocytes 2017-03-01 09:12:00 Test Item Value Reference Range Interpretation Comments T-suppressor cells (CD8) as percent of 27.9 % 12.0-35.5 blood lymphocytes (test code = 3517) [facility]absolute PO28801-25-32 09:12:00 Test Item Value Reference Range Interpretation Comments absolute CD8 (test code = 61633) 307 109-897 [facility]inghamT-helper cells (CD4) as percent of blood lymphocytes 2017-03-01 09:12:00 Test Item Value Reference Range Interpretation Comments T-helper cells (CD4) as percent of 19.0 % 30.8-58.5 L blood lymphocytes (test code = 8123-2) [facility]T-helper cells (CD4) mzmgu5551-91-01 09:12:00 Test Item Value Reference Range Interpretation Comments T-helper cells (CD4) count (test code 209 /UL 359-1519 L = 30305-2) [facility]inghamNeisseria gonorrhoeae DNA cxfwk8138-23-87 11:00:00 Test Item Value Reference Range Interpretation Comments Neisseria gonorrhoeae DNA probe Negative Negative (test code = 21546-0) [facility]inghamchlamydia DNA gkgae0038-67-56 11:00:00 Test Item Value Reference Range Interpretation Comments chlamydia DNA probe (test code = Negative Negative 86887-1) [facility]inghamQuantiferon Gold TB blood test for tuberculosis screening 2016-10-19 08:07:00 Test Item Value Reference Range Interpretation Comments Quantiferon Gold TB blood test for Negative Negative tuberculosis screening (test code = 26199-2) [facility]inghamrapid plasma reagin antibody, psixz8921-67-65 08:07:00 Test Item Value Reference Range Interpretation Comments rapid plasma reagin antibody, Non Reactive Non Reactive serum (test code = 5291-0) [facility]HIV-1RNA, serum, by PCR, ynbimkkuvlka0219-17-79 08:07:00 Test Item Value Reference Range Interpretation Comments HIV-1RNA, serum, by PCR, <20 copies/mL quantitative (test code = 41062) [facility]inghamLDL cholesterol, utrgv2253-74-20 08:07:00 Test Item Value Reference Range Interpretation Comments LDL cholesterol, serum (test code = 53 mg/dL 0-99 2088-1) [facility]inghamvery low density ushrkgppurhi6164-74-27 08:07:00 Test Item Value Reference Range Interpretation Comments very low density lipoproteins (test 26 mg/dL 5-40 code = 2091-7) [facility]HDL cholesterol, wpkny5728-59-37 08:07:00 Test Item Value Reference Range Interpretation Comments HDL cholesterol, serum (test code = 43 mg/dL >39 2084-9) [facility]triglyceride, serum, kluewyb4517-74-26 08:07:00 Test Item Value Reference Range Interpretation Comments triglyceride, serum, fasting (test 128 mg/dL 0-149 code = 2571-8) [facility]cholesterol, bllit5931-38-82 08:07:00 Test Item Value Reference Range Interpretation Comments cholesterol, serum (test code = 122 mg/dL 493-531 7171-3) [facility]alanine aminotransferase (SGPT), cajrh6125-23-02 08:07:00 Test Item Value Reference Range Interpretation Comments alanine aminotransferase (SGPT), serum 18 1/L 0-32 (test code = 1742-6) [facility]inghamaspartate aminotransferase (SGOT), kyxjd1055-73-65 08:07:00 Test Item Value Reference Range Interpretation Comments aspartate aminotransferase (SGOT), 13 1/L 0-40 serum (test code = 1920-8) [facility]alkaline phosphatase, vhuxn1946-22-87 08:07:00 Test Item Value Reference Range Interpretation Comments alkaline phosphatase, serum (test 156 1/L 39-117 H code = 1783-0) [facility]ambilirubin, serum, wifrd2536-44-20 08:07:00 Test Item Value Reference Range Interpretation Comments bilirubin, serum, total (test code 0.4 mg/dL 0.0-1.2 = 1974-2) [facility]albumin/globulin ratio, yzrsx9780-58-23 08:07:00 Test Item Value Reference Range Interpretation Comments albumin/globulin ratio, serum (test 1.8 1.1-2.5 code = 1759-0) [facility]inghamglobulin, xfygl0522-06-68 08:07:00 Test Item Value Reference Range Interpretation Comments globulin, serum (test code = 2336-6) 2.4 1.5-4.5 [facility] Healthalbumin, [id number] 08:07:00 Test Item Value Reference Range Interpretation Comments albumin, serum (test code = 1751-7) 4.3 g/dL 3.5-5.5 [facility]protein, total, imfpn5598-11-77 08:07:00 Test Item Value Reference Range Interpretation Comments protein, total, serum (test code = 6.7 g/dL 6.0-8.5 2885-2) [facility]calcium, kwvmd9656-00-37 08:07:00 Test Item Value Reference Range Interpretation Comments calcium, serum (test code = 1999-8) 9.4 mg/dL 8.7-10.2 [facility]carbon dioxide, venous ukowf6967-98-63 08:07:00 Test Item Value Reference Range Interpretation Comments carbon dioxide, venous blood (test 28 mmol/L 18-29 code = 7-1) [facility]inghamchloride, syjoi7774-09-99 08:07:00 Test Item Value Reference Range Interpretation Comments chloride, serum (test code = 93 mmol/L 97-106 L 5-0) [facility]ampotassium, ruezs1400-98-28 08:07:00 Test Item Value Reference Range Interpretation Comments potassium, serum (test code = 4.5 mmol/L 3.5-5.2 2823-3) [facility]amsodium, slllq0865-47-19 08:07:00 Test Item Value Reference Range Interpretation Comments sodium, serum (test code = 2951-2) 136 mmol/L 136-144 [facility]urea nitrogen/creatinine ratio, rrklt7548-18-85 08:07:00 Test Item Value Reference Range Interpretation Comments urea nitrogen/creatinine ratio, serum 10 9-23 (test code = 3097-3) [facility]altheGFR if Jdwsaolo2938-42-56 08:07:00 Test Item Value Reference Range Interpretation Comments eGFR if 100 >59 (test code = 89602-8) mL/min/((173/100).m2) [facility]Estimated Glomerular Filtration Rate (calc)2016-10-19 08:07:00 Test Item Value Reference Range Interpretation Comments Estimated Glomerular 87 >59 Filtration Rate (calc) mL/min/((173/100).m2 (test code = 23146-8) ) [facility] Healthcreatinine, roztz3539-72-41 08:07:00 Test Item Value Reference Range Interpretation Comments creatinine, serum (test code = 0.77 mg/dL 0.57-1.00 2160-0) [facility]urea nitrogen, hgagn3340-15-60 08:07:00 Test Item Value Reference Range Interpretation Comments urea nitrogen, blood (test code = 8 mg/dL 6-24 3094-0) [facility] glucose, xhezxj6379-33-61 08:07:00 Test Item Value Reference Range Interpretation Comments blood glucose, random (test code = 152 mg/dL 65-99 H 2339-0) [facility]inghamimmature granulocytes, percentage of total cells, blood 2016-10-19 08:07:00 Test Item Value Reference Range Interpretation Comments immature granulocytes, percentage of 0 % total cells, blood (test code = 17342-9) [facility]ambasophil count, rgbjzupr1694-87-93 08:07:00 Test Item Value Reference Range Interpretation Comments basophil count, absolute (test 0.0 x10E3/uL 0.0-0.2 code = 92579-5) [facility]inghamEosinophil Absolute Lpzou4470-75-92 08:07:00 Test Item Value Reference Range Interpretation Comments Eosinophil Absolute Count (test 0.2 X10E3/UL 0.0-0.4 code = 24167-3) [facility]inghammonocyte count, blood, gwjaxtupt0637-46-74 08:07:00 Test Item Value Reference Range Interpretation Comments monocyte count, blood, automated 0.5 X10E3/UL 0.1-0.9 (test code = 742-7) [facility]lymphocyte count, blood, znidcquea5731-23-36 08:07:00 Test Item Value Reference Range Interpretation Comments lymphocyte count, blood, 1.7 X10E3/UL 0.7-3.1 automated (test code = 731-0) [facility]Absolute Arqvkwzardy2239-63-39 08:07:00 Test Item Value Reference Range Interpretation Comments Absolute Neutrophils (test code 5.2 X10E3/UL 1.4-7.0 = 34713-3) [facility] Healthbasophils as percent of blood bwuptkoczw0993-85-76 08:07:00 Test Item Value Reference Range Interpretation Comments basophils as percent of blood 0 % leukocytes (test code = 707-0) [facility]ameosinophils as percent of blood zuwdazltyo0779-50-65 08:07:00 Test Item Value Reference Range Interpretation Comments eosinophils as percent of blood 3 % leukocytes (test code = 713-8) [facility] Healthmonocytes as percent of blood dfyxrzpsoh2966-57-75 08:07:00 Test Item Value Reference Range Interpretation Comments monocytes as percent of blood 6 % leukocytes (test code = 5905-5) [facility]lymphocytes as percent of blood sodjbfawzl9031-88-17 08:07:00 Test Item Value Reference Range Interpretation Comments lymphocytes as percent of blood 22 % leukocytes (test code = 736-9) [facility]inghamneutrophils as percent of blood rspcfhvbrh4499-49-09 08:07:00 Test Item Value Reference Range Interpretation Comments neutrophils as percent of blood 69 % leukocytes (test code = 770-8) [facility]inghamplatelet kcqlv6592-00-59 08:07:00 Test Item Value Reference Range Interpretation Comments platelet count (test code = 257 X10E3/UL 150-379 777-3) [facility]red blood cell distribution nkpnp1088-64-45 08:07:00 Test Item Value Reference Range Interpretation Comments red blood cell distribution width 12.9 % 12.3-15.4 (test code = 788-0) [facility] corpuscular hemoglobin concentration, [id number] 08:07:00 Test Item Value Reference Range Interpretation Comments mean corpuscular hemoglobin 34.3 G/DL 31.5-35.7 concentration, RBC (test code = 786-4) [facility] corpuscular hemoglobin, [id number] 08:07:00 Test Item Value Reference Range Interpretation Comments mean corpuscular hemoglobin, RBC 34.5 pg 26.6-33.0 H (test code = 785-6) [facility] corpuscular volume, [id number] 08:07:00 Test Item Value Reference Range Interpretation Comments mean corpuscular volume, RBC (test 101 fL 79-97 H code = 787-2) [facility]hematocrit, rqrnp8974-02-84 08:07:00 Test Item Value Reference Range Interpretation Comments hematocrit, blood (test code = 4544-3) 44.6 % 34.0-46.6 [facility]inghamhemoglobin, ubtke8181-34-94 08:07:00 Test Item Value Reference Range Interpretation Comments hemoglobin, blood (test code = 15.3 g/dL 11.1-15.9 718-7) [facility] [id number] 08:07:00 Test Item Value Reference Range Interpretation Comments erythrocyte (RBC) count (test 4.43 X10E6/UL 3.77-5.28 code = 789-8) [facility]uk[facility] count, [id number] 08:07:00 Test Item Value Reference Range Interpretation Comments leukocyte count, blood (test 7.7 X10E3/UL 3.4-10.8 code = 6690-2) [facility]CD4/CD8 [id number] 08:07:00 Test Item Value Reference Range Interpretation Comments CD4/CD8 ratio (test code = 02621) 0.84 0.92-3.72 L [facility]T-suppressor cells (CD8) as percent of blood lymphocytes 2016-10-19 08:07:00 Test Item Value Reference Range Interpretation Comments T-suppressor cells (CD8) as percent of 26.3 % 12.0-35.5 blood lymphocytes (test code = 3517) [facility] [id number] 08:07:00 Test Item Value Reference Range Interpretation Comments absolute CD8 (test code = 01333) 447 109-897 [facility]T-helper cells (CD4) as percent of blood lymphocytes 2016-10-19 08:07:00 Test Item Value Reference Range Interpretation Comments T-helper cells (CD4) as percent of 22.0 % 30.8-58.5 L blood lymphocytes (test code = 8123-2) [facility] cells (CD4) [id number] 08:07:00 Test Item Value Reference Range Interpretation Comments T-helper cells (CD4) count (test code 374 /UL 359-1519 = 42790-2) [facility]hepatitis B surface gjseljl2328-93-12 09:14:00 Test Item Value Reference Range Interpretation Comments hepatitis B surface antigen (test Negative Negative code = 79) [facility] antibody, [id number] 09:14:00 Test Item Value Reference Range Interpretation Comments hepatitis C antibody, serum (test code 0.2 0.0-0.9 = 5199-5) [facility]vitamin D 25-hydroxy, [id number] 09:14:00 Test Item Value Reference Range Interpretation Comments vitamin D 25-hydroxy, serum (test 27.6 ng/mL 30.0-100.0 L code = 20587-3) [facility]rapid plasma reagin antibody, [id number] 09:14:00 Test Item Value Reference Range Interpretation Comments rapid plasma reagin antibody, Non Reactive Non Reactive serum (test code = 5291-0) [facility]HIV-1RNA, serum, by PCR, [id number] 09:14:00 Test Item Value Reference Range Interpretation Comments HIV-1RNA, serum, by PCR, quantitative 30 /mL (test code = 29670) [facility]LDL cholesterol, [id number] 09:14:00 Test Item Value Reference Range Interpretation Comments LDL cholesterol, serum (test code = 82 mg/dL 0-99 2088-1) [facility]very low density casfmrrbymxk0932-52-36 09:14:00 Test Item Value Reference Range Interpretation Comments very low density lipoproteins (test 40 mg/dL 5-40 code = 1-7) [facility]HDL cholesterol, [id number] 09:14:00 Test Item Value Reference Range Interpretation Comments HDL cholesterol, serum (test code = 42 mg/dL >39 5-9) [facility]triglyceride, serum, [id number] 09:14:00 Test Item Value Reference Range Interpretation Comments triglyceride, serum, fasting (test 199 mg/dL 0-149 H code = 2571-8) [facility]cholesterol, ydzup0025-00-76 09:14:00 Test Item Value Reference Range Interpretation Comments cholesterol, serum (test code = 164 mg/dL 035-161 1141-3) [facility]alanine aminotransferase (SGPT), [id number] 09:14:00 Test Item Value Reference Range Interpretation Comments alanine aminotransferase (SGPT), serum 12 1/L 0-32 (test code = 1742-6) [facility]inghamaspartate aminotransferase (SGOT), [id number] 09:14:00 Test Item Value Reference Range Interpretation Comments aspartate aminotransferase (SGOT), 14 1/L 0-40 serum (test code = 1920-8) [facility]alkaline phosphatase, [id number] 09:14:00 Test Item Value Reference Range Interpretation Comments alkaline phosphatase, serum (test 169 1/L 39-117 H code = 1783-0) [facility]ilirubin, serum, [id number] 09:14:00 Test Item Value Reference Range Interpretation Comments bilirubin, serum, total (test code 0.4 mg/dL 0.0-1.2 = 1975-2) [facility]albumin/globulin ratio, [id number] 09:14:00 Test Item Value Reference Range Interpretation Comments albumin/globulin ratio, serum (test 1.8 1.1-2.5 code = 1759-0) [facility] Healthglobulin, [id number] 09:14:00 Test Item Value Reference Range Interpretation Comments globulin, serum (test code = 2336-6) 2.4 1.5-4.5 [facility] Healthalbumin, [id number] 09:14:00 Test Item Value Reference Range Interpretation Comments albumin, serum (test code = 1751-7) 4.3 g/dL 3.5-5.5 [facility]protein, total, [id number] 09:14:00 Test Item Value Reference Range Interpretation Comments protein, total, serum (test code = 6.7 g/dL 6.0-8.5 2885-2) [facility]calcium, [id number] 09:14:00 Test Item Value Reference Range Interpretation Comments calcium, serum (test code = 2000-8) 9.4 mg/dL 8.7-10.2 [facility]carbon dioxide, venous [id number] 09:14:00 Test Item Value Reference Range Interpretation Comments carbon dioxide, venous blood (test 24 mmol/L 18-29 code = 2027-1) [facility] Healthchloride, [id number] 09:14:00 Test Item Value Reference Range Interpretation Comments chloride, serum (test code = 96 mmol/L 97-108 L 2075-0) [facility] Healthpotassium, [id number] 09:14:00 Test Item Value Reference Range Interpretation Comments potassium, serum (test code = 4.4 mmol/L 3.5-5.2 2823-3) [facility] Healthsodium, [id number] 09:14:00 Test Item Value Reference Range Interpretation Comments sodium, serum (test code = 2951-2) 137 mmol/L 134-144 [facility]urea nitrogen/creatinine ratio, [id number] 09:14:00 Test Item Value Reference Range Interpretation Comments urea nitrogen/creatinine ratio, serum 13 9-23 (test code = 3097-3) [facility] HealtheGFR if Bntzngje1484-06-96 09:14:00 Test Item Value Reference Range Interpretation Comments eGFR if 117 >59 (test code = 94722-9) mL/min/((173/100).m2) [facility]Estimated Glomerular Filtration Rate (calc)2016-07-01 09:14:00 Test Item Value Reference Range Interpretation Comments Estimated Glomerular 102 >59 Filtration Rate (calc) mL/min/((173/100).m2 (test code = 71046-7) ) [facility]creatinine, [id number] 09:14:00 Test Item Value Reference Range Interpretation Comments creatinine, serum (test code = 0.61 mg/dL 0.57-1.00 2160-0) [facility]urea nitrogen, [id number] 09:14:00 Test Item Value Reference Range Interpretation Comments urea nitrogen, blood (test code = 8 mg/dL 6-24 3094-0) [facility] glucose, [id number] 09:14:00 Test Item Value Reference Range Interpretation Comments blood glucose, random (test code = 106 mg/dL 65-99 H 2339-0) [facility]inghamimmature granulocytes, percentage of total cells, blood 2016-07-01 09:14:00 Test Item Value Reference Range Interpretation Comments immature granulocytes, percentage of 0 % total cells, blood (test code = 23454-9) [facility]asophil count, [id number] 09:14:00 Test Item Value Reference Range Interpretation Comments basophil count, absolute (test 0.0 x10E3/uL 0.0-0.2 code = 79032-1) [facility] HealthEosinophil Absolute [id number] 09:14:00 Test Item Value Reference Range Interpretation Comments Eosinophil Absolute Count (test 0.3 X10E3/UL 0.0-0.4 code = 50561-9) [facility] Healthmonocyte count, blood, hmqkjtfer3629-06-62 09:14:00 Test Item Value Reference Range Interpretation Comments monocyte count, blood, automated 0.4 X10E3/UL 0.1-0.9 (test code = 742-7) [facility]lymph[facility] count, blood, [id number] 09:14:00 Test Item Value Reference Range Interpretation Comments lymphocyte count, blood, 1.5 X10E3/UL 0.7-3.1 automated (test code = 731-0) [facility] HealthAbsolute Zytvaficflu8444-82-90 09:14:00 Test Item Value Reference Range Interpretation Comments Absolute Neutrophils (test code 3.6 X10E3/UL 1.4-7.0 = 11093-1) [facility]ophils as percent of blood vhmeesleiz8027-33-85 09:14:00 Test Item Value Reference Range Interpretation Comments basophils as percent of blood 0 % leukocytes (test code = 707-0) [facility] Healtheosinophils as percent of blood kzfcurygzo2570-70-38 09:14:00 Test Item Value Reference Range Interpretation Comments eosinophils as percent of blood 5 % leukocytes (test code = 713-8) [facility] Healthmonocytes as percent of blood exubrtyzxf5754-96-64 09:14:00 Test Item Value Reference Range Interpretation Comments monocytes as percent of blood 7 % leukocytes (test code = 5905-5) [facility]lymphocytes as percent of blood wfsxxailtp4945-36-67 09:14:00 Test Item Value Reference Range Interpretation Comments lymphocytes as percent of blood 25 % leukocytes (test code = 736-9) [facility]inghamneutrophils as percent of blood mtqnuvhsnc8461-02-55 09:14:00 Test Item Value Reference Range Interpretation Comments neutrophils as percent of blood 63 % leukocytes (test code = 770-8) [facility]inghamplatelet jvrko8763-60-32 09:14:00 Test Item Value Reference Range Interpretation Comments platelet count (test code = 210 X10E3/UL 150-379 777-3) [facility]red blood cell distribution [id number] 09:14:00 Test Item Value Reference Range Interpretation Comments red blood cell distribution width 13.2 % 12.3-15.4 (test code = 788-0) [facility] corpuscular hemoglobin concentration, [id number] 09:14:00 Test Item Value Reference Range Interpretation Comments mean corpuscular hemoglobin 35.0 G/DL 31.5-35.7 concentration, RBC (test code = 786-4) [facility] corpuscular hemoglobin, [id number] 09:14:00 Test Item Value Reference Range Interpretation Comments mean corpuscular hemoglobin, RBC 35.2 pg 26.6-33.0 H (test code = 785-6) [facility], [id number] 09:14:00 Test Item Value Reference Range Interpretation Comments mean corpuscular volume, RBC (test 101 fL 79-97 H code = 787-2) [facility]hematocrit, ztipt1269-98-34 09:14:00 Test Item Value Reference Range Interpretation Comments hematocrit, blood (test code = 4544-3) 40.8 % 34.0-46.6 [facility]hemoglobin, [id number] 09:14:00 Test Item Value Reference Range Interpretation Comments hemoglobin, blood (test code = 14.3 g/dL 11.1-15.9 718-7) [facility]erythrocyte (RBC) [id number] 09:14:00 Test Item Value Reference Range Interpretation Comments erythrocyte (RBC) count (test 4.06 X10E6/UL 3.77-5.28 code = 789-8) [facility]leukocyte count, [id number] 09:14:00 Test Item Value Reference Range Interpretation Comments leukocyte count, blood (test 5.8 X10E3/UL 3.4-10.8 code = 6690-2) [facility]CD4/CD8 [id number] 09:14:00 Test Item Value Reference Range Interpretation Comments CD4/CD8 ratio (test code = 66032) 0.68 0.92-3.72 L [facility]T-suppressor cells (CD8) as percent of blood lymphocytes 2016-07-01 09:14:00 Test Item Value Reference Range Interpretation Comments T-suppressor cells (CD8) as percent of 28.2 % 12.0-35.5 blood lymphocytes (test code = 3517) [facility]absolute [id number] 09:14:00 Test Item Value Reference Range Interpretation Comments absolute CD8 (test code = 51374) 423 109-897 [facility]T-helper cells (CD4) as percent of blood lymphocytes 2016-07-01 09:14:00 Test Item Value Reference Range Interpretation Comments T-helper cells (CD4) as percent of 19.2 % 30.8-58.5 L blood lymphocytes (test code = 8123-2) [facility]T-[facility] cells (CD4) [id number] 09:14:00 Test Item Value Reference Range Interpretation Comments T-helper cells (CD4) count (test code 288 /UL 359-1519 L = 40572-3) [facility] cells (CD4) as percent of blood lymphocytes 2016-01-27 09:42:00 Test Item Value Reference Range Interpretation Comments T-helper cells (CD4) as percent of 19.2 % 30.8-58.5 L blood lymphocytes (test code = 8123-2) [facility]T-helper cells (CD4) jxvys5908-42-13 09:42:00 Test Item Value Reference Range Interpretation Comments T-helper cells (CD4) count (test code 269 /UL 359-1519 L = 00300-7) [facility]inghamrapid plasma reagin antibody, exprn8470-09-43 09:42:00 Test Item Value Reference Range Interpretation Comments rapid plasma reagin antibody, Non Reactive Non Reactive serum (test code = 5291-0) [facility]HIV-1RNA, serum, by PCR, [id number] 09:42:00 Test Item Value Reference Range Interpretation Comments HIV-1RNA, serum, by PCR, <20 copies/mL quantitative (test code = 29250) [facility]LDL cholesterol, [id number] 09:42:00 Test Item Value Reference Range Interpretation Comments LDL cholesterol, serum (test code = 58 mg/dL 0-99 2088-1) [facility]very low density cozugxwxligk1007-76-98 09:42:00 Test Item Value Reference Range Interpretation Comments very low density lipoproteins (test 32 mg/dL 5-40 code = 2091-7) [facility]HDL cholesterol, [id number] 09:42:00 Test Item Value Reference Range Interpretation Comments HDL cholesterol, serum (test code = 43 mg/dL >39 2084-9) [facility]triglyceride, serum, [id number] 09:42:00 Test Item Value Reference Range Interpretation Comments triglyceride, serum, fasting (test 161 mg/dL 0-149 H code = 2571-8) [facility]cholesterol, [id number] 09:42:00 Test Item Value Reference Range Interpretation Comments cholesterol, serum (test code = 133 mg/dL 381-692 3477-3) [facility]alanine aminotransferase (SGPT), zjmyq5499-62-24 09:42:00 Test Item Value Reference Range Interpretation Comments alanine aminotransferase (SGPT), serum 15 1/L 0-32 (test code = 1742-6) [facility]inghamaspartate aminotransferase (SGOT), [id number] 09:42:00 Test Item Value Reference Range Interpretation Comments aspartate aminotransferase (SGOT), 16 1/L 0-40 serum (test code = 1920-8) [facility]alkaline phosphatase, [id number] 09:42:00 Test Item Value Reference Range Interpretation Comments alkaline phosphatase, serum (test 130 1/L 39-117 H code = 1783-0) [facility]ilirubin, serum, fflhw4626-50-01 09:42:00 Test Item Value Reference Range Interpretation Comments bilirubin, serum, total (test code 0.3 mg/dL 0.0-1.2 = 1975-2) [facility]albumin/globulin ratio, [id number] 09:42:00 Test Item Value Reference Range Interpretation Comments albumin/globulin ratio, serum (test 1.5 1.1-2.5 code = 1759-0) [facility] Healthglobulin, [id number] 09:42:00 Test Item Value Reference Range Interpretation Comments globulin, serum (test code = 2336-6) 2.7 1.5-4.5 [facility] Healthalbumin, [id number] 09:42:00 Test Item Value Reference Range Interpretation Comments albumin, serum (test code = 1751-7) 4.1 g/dL 3.5-5.5 [facility] Healthprotein, total, [id number] 09:42:00 Test Item Value Reference Range Interpretation Comments protein, total, serum (test code = 6.8 g/dL 6.0-8.5 2885-2) [facility] Healthcalcium, [id number] 09:42:00 Test Item Value Reference Range Interpretation Comments calcium, serum (test code = 2000-8) 9.4 mg/dL 8.7-10.2 [facility]carbon dioxide, venous ymuos9624-39-98 09:42:00 Test Item Value Reference Range Interpretation Comments carbon dioxide, venous blood (test 29 mmol/L 18-29 code = 7-1) [facility] Healthchloride, [id number] 09:42:00 Test Item Value Reference Range Interpretation Comments chloride, serum (test code = 104 mmol/L 97-108 5-0) [facility] Healthpotassium, [id number] 09:42:00 Test Item Value Reference Range Interpretation Comments potassium, serum (test code = 4.4 mmol/L 3.5-5.2 2823-3) [facility] Healthsodium, [id number] 09:42:00 Test Item Value Reference Range Interpretation Comments sodium, serum (test code = 2951-2) 145 mmol/L 134-144 H [facility] Healthurea nitrogen/creatinine ratio, mjxwr8067-37-17 09:42:00 Test Item Value Reference Range Interpretation Comments urea nitrogen/creatinine ratio, serum 20 9-23 (test code = 3097-3) [facility] HealtheGFR if Cimgsehm4172-89-49 09:42:00 Test Item Value Reference Range Interpretation Comments eGFR if 117 >59 (test code = 83855-2) mL/min/((173/100).m2) [facility]Estimated Glomerular Filtration Rate (calc)2016-01-27 09:42:00 Test Item Value Reference Range Interpretation Comments Estimated Glomerular 102 >59 Filtration Rate (calc) mL/min/((173/100).m2 (test code = 77558-9) ) [facility]creatinine, olsbw2047-09-06 09:42:00 Test Item Value Reference Range Interpretation Comments creatinine, serum (test code = 0.61 mg/dL 0.57-1.00 2160-0) [facility]urea nitrogen, [id number] 09:42:00 Test Item Value Reference Range Interpretation Comments urea nitrogen, blood (test code = 12 mg/dL 6-24 3094-0) [facility] glucose, edocco4706-35-86 09:42:00 Test Item Value Reference Range Interpretation Comments blood glucose, random (test code = 127 mg/dL 65-99 H 2339-0) [facility]inghamimmature granulocytes, percentage of total cells, blood 2016-01-27 09:42:00 Test Item Value Reference Range Interpretation Comments immature granulocytes, percentage of 0 % total cells, blood (test code = 66602-5) [facility]ophil count, qnrdekxg7690-84-96 09:42:00 Test Item Value Reference Range Interpretation Comments basophil count, absolute (test 0.0 x10E3/uL 0.0-0.2 code = 95930-6) [facility]inghamEosinophil Absolute [id number] 09:42:00 Test Item Value Reference Range Interpretation Comments Eosinophil Absolute Count (test 0.3 X10E3/UL 0.0-0.4 code = 86182-3) [facility]inghammonocyte count, blood, ubclrxsqt2937-88-17 09:42:00 Test Item Value Reference Range Interpretation Comments monocyte count, blood, automated 0.4 X10E3/UL 0.1-0.9 (test code = 742-7) [facility]lymphocyte count, blood, ciztrcmil5282-80-79 09:42:00 Test Item Value Reference Range Interpretation Comments lymphocyte count, blood, 1.4 X10E3/UL 0.7-3.1 automated (test code = 731-0) [facility]Absolute Hqoqzvrzjky2411-55-56 09:42:00 Test Item Value Reference Range Interpretation Comments Absolute Neutrophils (test code 3.2 X10E3/UL 1.4-7.0 = 38297-2) [facility]ophils as percent of blood fjiocezzki2943-64-65 09:42:00 Test Item Value Reference Range Interpretation Comments basophils as percent of blood 0 % leukocytes (test code = 707-0) [facility] Healtheosinophils as percent of blood dqpzkgxblw2407-83-16 09:42:00 Test Item Value Reference Range Interpretation Comments eosinophils as percent of blood 5 % leukocytes (test code = 713-8) [facility] Healthmonocytes as percent of blood yilchbjcoa8421-35-23 09:42:00 Test Item Value Reference Range Interpretation Comments monocytes as percent of blood 7 % leukocytes (test code = 5905-5) [facility]lymphocytes as percent of blood ttfaeyvovd0747-01-65 09:42:00 Test Item Value Reference Range Interpretation Comments lymphocytes as percent of blood 26 % leukocytes (test code = 736-9) [facility]inghamneutrophils as percent of blood dtmpkbcypm2101-72-25 09:42:00 Test Item Value Reference Range Interpretation Comments neutrophils as percent of blood 62 % leukocytes (test code = 770-8) [facility]inghamplatelet pjrpw5174-27-91 09:42:00 Test Item Value Reference Range Interpretation Comments platelet count (test code = 197 X10E3/UL 150-379 777-3) [facility]red blood cell distribution lopvj8714-32-63 09:42:00 Test Item Value Reference Range Interpretation Comments red blood cell distribution width 13.6 % 12.3-15.4 (test code = 788-0) [facility] corpuscular hemoglobin concentration, [id number] 09:42:00 Test Item Value Reference Range Interpretation Comments mean corpuscular hemoglobin 34.3 G/DL 31.5-35.7 concentration, RBC (test code = 786-4) [facility], [id number] 09:42:00 Test Item Value Reference Range Interpretation Comments mean corpuscular hemoglobin, RBC 35.1 pg 26.6-33.0 H (test code = 785-6) [facility]mean corpuscular volume, [id number] 09:42:00 Test Item Value Reference Range Interpretation Comments mean corpuscular volume, RBC (test 102 fL 79-97 H code = 787-2) [facility]hematocrit, [id number] 09:42:00 Test Item Value Reference Range Interpretation Comments hematocrit, blood (test code = 4544-3) 40.2 % 34.0-46.6 [facility]hemoglobin, [id number] 09:42:00 Test Item Value Reference Range Interpretation Comments hemoglobin, blood (test code = 13.8 g/dL 11.1-15.9 718-7) [facility]inghamerythrocyte (RBC) [id number] 09:42:00 Test Item Value Reference Range Interpretation Comments erythrocyte (RBC) count (test 3.93 X10E6/UL 3.77-5.28 code = 789-8) [facility]leukocyte count, fgmea3841-31-38 09:42:00 Test Item Value Reference Range Interpretation Comments leukocyte count, blood (test 5.2 X10E3/UL 3.4-10.8 code = 6690-2) [facility]CD4/CD8 [id number] 09:42:00 Test Item Value Reference Range Interpretation Comments CD4/CD8 ratio (test code = 46419) 0.67 0.92-3.72 L [facility]inghamT-suppressor cells (CD8) as percent of blood lymphocytes 2016-01-27 09:42:00 Test Item Value Reference Range Interpretation Comments T-suppressor cells (CD8) as percent of 28.8 % 12.0-35.5 blood lymphocytes (test code = 3517) [facility]absolute [id number] 09:42:00 Test Item Value Reference Range Interpretation Comments absolute CD8 (test code = 28685) 403 109-897 [facility]human leukocyte antigen [id number] 10:14:15 Test Item Value Reference Range Interpretation Comments human leukocyte antigen B57 (test negative code = 067530) [facility]inghamQuantiferon Gold TB blood test for tuberculosis screening 2015-06-17 10:13:00 Test Item Value Reference Range Interpretation Comments Quantiferon Gold TB blood test for Negative Negative tuberculosis screening (test code = 61656-5) [facility]HIV-1RNA, serum, by PCR, wpodojtlsumk7147-12-82 10:13:00 Test Item Value Reference Range Interpretation Comments HIV-1RNA, serum, by PCR, <20 copies/mL quantitative (test code = 45492) [facility]inghamrapid plasma reagin antibody, [id number] 10:13:00 Test Item Value Reference Range Interpretation Comments rapid plasma reagin antibody, Non Reactive Non Reactive serum (test code = 5291-0) [facility]inghamLDL cholesterol, swvsj7791-92-53 10:13:00 Test Item Value Reference Range Interpretation Comments LDL cholesterol, serum (test code = 33 mg/dL 0-99 2088-1) [facility]inghamvery low density yingbakxrurm0018-81-41 10:13:00 Test Item Value Reference Range Interpretation Comments very low density lipoproteins (test 17 mg/dL 5-40 code = 2091-7) [facility]HDL cholesterol, mejaj9784-90-89 10:13:00 Test Item Value Reference Range Interpretation Comments HDL cholesterol, serum (test code = 38 mg/dL >39 L 2084-9) [facility]triglyceride, serum, ymetyjj5681-51-92 10:13:00 Test Item Value Reference Range Interpretation Comments triglyceride, serum, fasting (test 83 mg/dL 0-149 code = 2571-8) [facility]cholesterol, [id number] 10:13:00 Test Item Value Reference Range Interpretation Comments cholesterol, serum (test code = 88 mg/dL 100-199 L 3-3) [facility]inghamalanine aminotransferase (SGPT), lsvqm4270-31-09 10:13:00 Test Item Value Reference Range Interpretation Comments alanine aminotransferase (SGPT), serum 15 1/L 0-32 (test code = 1742-6) [facility]inghamaspartate aminotransferase (SGOT), tetwx3514-20-52 10:13:00 Test Item Value Reference Range Interpretation Comments aspartate aminotransferase (SGOT), 23 1/L 0-40 serum (test code = 1920-8) [facility] Healthalkaline phosphatase, [id number] 10:13:00 Test Item Value Reference Range Interpretation Comments alkaline phosphatase, serum (test 120 1/L 39-117 H code = 1783-0) [facility] Healthbilirubin, serum, [id number] 10:13:00 Test Item Value Reference Range Interpretation Comments bilirubin, serum, total (test code 0.3 mg/dL 0.0-1.2 = 1975-2) [facility] Healthalbumin/globulin ratio, iskir4908-33-82 10:13:00 Test Item Value Reference Range Interpretation Comments albumin/globulin ratio, serum (test 1.8 1.1-2.5 code = 1759-0) [facility] Healthglobulin, [id number] 10:13:00 Test Item Value Reference Range Interpretation Comments globulin, serum (test code = 2336-6) 2.2 1.5-4.5 [facility] Healthalbumin, [id number] 10:13:00 Test Item Value Reference Range Interpretation Comments albumin, serum (test code = 1751-7) 3.9 g/dL 3.5-5.5 [facility] Healthprotein, total, [id number] 10:13:00 Test Item Value Reference Range Interpretation Comments protein, total, serum (test code = 6.1 g/dL 6.0-8.5 2885-2) [facility] tfssj2215-83-20 10:13:00 Test Item Value Reference Range Interpretation Comments calcium, serum (test code = 1999-8) 9.4 mg/dL 8.7-10.2 [facility], venous pvcnj9929-08-01 10:13:00 Test Item Value Reference Range Interpretation Comments carbon dioxide, venous blood (test 26 mmol/L 18-29 code = 2026-1) [facility]inghamchloride, swcfc5961-29-69 10:13:00 Test Item Value Reference Range Interpretation Comments chloride, serum (test code = 102 mmol/L 97-108 2074-0) [facility]ampotassium, moufy3574-75-78 10:13:00 Test Item Value Reference Range Interpretation Comments potassium, serum (test code = 3.1 mmol/L 3.5-5.2 L 2823-3) [facility]hamsodium, htmhm2941-02-51 10:13:00 Test Item Value Reference Range Interpretation Comments sodium, serum (test code = 2951-2) 144 mmol/L 134-144 [facility] nitrogen/creatinine ratio, rqxvh9314-51-36 10:13:00 Test Item Value Reference Range Interpretation Comments urea nitrogen/creatinine ratio, serum 11 9-23 (test code = 3097-3) [facility]hameGFR if Qifuwzjp4867-54-85 10:13:00 Test Item Value Reference Range Interpretation Comments eGFR if 113 >59 (test code = 38401-1) mL/min/((173/100).m2) [facility]inghamEstimated Glomerular Filtration Rate (calc)2015-06-17 10:13:00 Test Item Value Reference Range Interpretation Comments Estimated Glomerular 98 >59 Filtration Rate (calc) mL/min/((173/100).m2 (test code = 43366-6) ) [facility]inine, mastz1472-96-70 10:13:00 Test Item Value Reference Range Interpretation Comments creatinine, serum (test code = 0.70 mg/dL 0.57-1.00 2160-0) [facility] nitrogen, lnrae1803-35-15 10:13:00 Test Item Value Reference Range Interpretation Comments urea nitrogen, blood (test code = 8 mg/dL 6-24 3094-0) [facility] glucose, bnqabx4679-13-39 10:13:00 Test Item Value Reference Range Interpretation Comments blood glucose, random (test code = 77 mg/dL 65-99 2339-0) [facility]inghamimmature granulocytes, percentage of total cells, blood 2015-06-17 10:13:00 Test Item Value Reference Range Interpretation Comments immature granulocytes, percentage of 0 % total cells, blood (test code = 59583-4) [facility]ambasophil count, gqetmral9198-38-64 10:13:00 Test Item Value Reference Range Interpretation Comments basophil count, absolute (test 0.0 x10E3/uL 0.0-0.2 code = 50954-0) [facility]inghamEosinophil Absolute Xtpbw0472-03-38 10:13:00 Test Item Value Reference Range Interpretation Comments Eosinophil Absolute Count (test 0.2 X10E3/UL 0.0-0.4 code = 47565-8) [facility] Healthmonocyte count, blood, zbkinghoz7588-48-14 10:13:00 Test Item Value Reference Range Interpretation Comments monocyte count, blood, automated 0.3 X10E3/UL 0.1-0.9 (test code = 742-7) [facility] count, blood, zerqvrycc5659-77-81 10:13:00 Test Item Value Reference Range Interpretation Comments lymphocyte count, blood, 1.3 X10E3/UL 0.7-3.1 automated (test code = 731-0) [facility]Absolute Zydijpttduo0472-56-11 10:13:00 Test Item Value Reference Range Interpretation Comments Absolute Neutrophils (test code 3.5 X10E3/UL 1.4-7.0 = 08878-1) [facility]ophils as percent of blood jiqidkuwiy4240-40-00 10:13:00 Test Item Value Reference Range Interpretation Comments basophils as percent of blood 0 % leukocytes (test code = 707-0) [facility]osinophils as percent of blood xuazkggffn2440-15-63 10:13:00 Test Item Value Reference Range Interpretation Comments eosinophils as percent of blood 4 % leukocytes (test code = 713-8) [facility] Healthmonocytes as percent of blood fdhwjyhwaw8655-21-38 10:13:00 Test Item Value Reference Range Interpretation Comments monocytes as percent of blood 6 % leukocytes (test code = 5905-5) [facility]lymphocytes as percent of blood qeczzqfdzg0150-04-80 10:13:00 Test Item Value Reference Range Interpretation Comments lymphocytes as percent of blood 24 % leukocytes (test code = 736-9) [facility]inghamneutrophils as percent of blood yvdbsdnrep9132-01-50 10:13:00 Test Item Value Reference Range Interpretation Comments neutrophils as percent of blood 66 % leukocytes (test code = 770-8) [facility]inghamplatelet saswt1794-42-68 10:13:00 Test Item Value Reference Range Interpretation Comments platelet count (test code = 243 X10E3/UL 150-379 777-3) [facility]inghamred blood cell distribution smage1896-98-89 10:13:00 Test Item Value Reference Range Interpretation Comments red blood cell distribution width 14.1 % 12.3-15.4 (test code = 788-0) [facility] corpuscular hemoglobin concentration, HRW1359-76-00 10:13:00 Test Item Value Reference Range Interpretation Comments mean corpuscular hemoglobin 35.6 G/DL 31.5-35.7 concentration, RBC (test code = 786-4) [facility] corpuscular hemoglobin, NXS1012-28-74 10:13:00 Test Item Value Reference Range Interpretation Comments mean corpuscular hemoglobin, RBC 37.0 pg 26.6-33.0 H (test code = 785-6) [facility] corpuscular volume, VSR6048-21-30 10:13:00 Test Item Value Reference Range Interpretation Comments mean corpuscular volume, RBC (test 104 fL 79-97 H code = 787-2) [facility]ocrit, hokgq5988-08-01 10:13:00 Test Item Value Reference Range Interpretation Comments hematocrit, blood (test code = 4544-3) 33.1 % 34.0-46.6 L [facility]inghamhemoglobin, hgqic4155-93-53 10:13:00 Test Item Value Reference Range Interpretation Comments hemoglobin, blood (test code = 11.8 g/dL 11.1-15.9 718-7) [facility]inghamerythrocyte (RBC) bbibh8843-97-24 10:13:00 Test Item Value Reference Range Interpretation Comments erythrocyte (RBC) count (test 3.19 X10E6/UL 3.77-5.28 L code = 789-8) [facility]ukocyte count, sgmla4620-51-82 10:13:00 Test Item Value Reference Range Interpretation Comments leukocyte count, blood (test 5.3 X10E3/UL 3.4-10.8 code = 6690-2) [facility]inghamCD4/CD8 cvmds6535-93-61 10:13:00 Test Item Value Reference Range Interpretation Comments CD4/CD8 ratio (test code = 73064) 0.47 0.92-3.72 L [facility]inghamT-suppressor cells (CD8) as percent of blood lymphocytes 2015-06-17 10:13:00 Test Item Value Reference Range Interpretation Comments T-suppressor cells (CD8) as percent of 27.6 % 12.0-35.5 blood lymphocytes (test code = 3517) [facility] Healthabsolute [id number] 10:13:00 Test Item Value Reference Range Interpretation Comments absolute CD8 (test code = 79666) 359 109-897 [facility]inghamT-helper cells (CD4) as percent of blood lymphocytes 2015-06-17 10:13:00 Test Item Value Reference Range Interpretation Comments T-helper cells (CD4) as percent of 13.0 % 30.8-58.5 L blood lymphocytes (test code = 8123-2) [facility]inghamT-helper cells (CD4) rvzxx2007-72-07 10:13:00 Test Item Value Reference Range Interpretation Comments T-helper cells (CD4) count (test code 169 /UL 359-1519 L = 13051-5) [facility]inghamT-helper cells (CD4) count, lowest absolute value 2015-03-18 10:06:41 Test Item Value Reference Range Interpretation Comments T-helper cells (CD4) count, lowest 150 absolute value (test code = 00375) [facility]inghamHIV-CMIA (Chemiluminescent Microparticle Immuno Assay) 2015-03-03 09:53:00 Test Item Value Reference Range Interpretation Comments HIV-CMIA (Chemiluminescent Reactive Non Reactive A Microparticle Immuno Assay) (test code = 686089) [facility]HIV-1RNA, serum, by PCR, gbyoxxqbmvik8776-64-65 09:53:00 Test Item Value Reference Range Interpretation Comments HIV-1RNA, serum, by PCR, <20 copies/mL quantitative (test code = 54526) [facility] antibody, bybgq4472-86-08 09:53:00 Test Item Value Reference Range Interpretation Comments hepatitis A antibody, total (test Negative Negative code = 75) [facility] B core antibody, vqspx7824-90-26 09:53:00 Test Item Value Reference Range Interpretation Comments hepatitis B core antibody, total Negative Negative (test code = 77) [facility] B surface bcphdju1124-77-79 09:53:00 Test Item Value Reference Range Interpretation Comments hepatitis B surface antigen (test Negative Negative code = 79) [facility]inghamrapid plasma reagin antibody, xlimi8917-13-78 09:53:00 Test Item Value Reference Range Interpretation Comments rapid plasma reagin antibody, Non Reactive Non Reactive serum (test code = 5291-0) [facility] C antibody, fijcf1050-97-10 09:53:00 Test Item Value Reference Range Interpretation Comments hepatitis C antibody, serum (test code <0.1 0.0-0.9 = 5199-5) [facility]inghamtoxoplasma gondii antibody, KuS0698-72-17 09:53:00 Test Item Value Reference Range Interpretation Comments toxoplasma gondii antibody, IgG (test <3.0 0.0-5.9 code = 2430) [facility] B surface tujaxtdi6069-83-53 09:53:00 Test Item Value Reference Range Interpretation Comments hepatitis B surface antibody Non Reactive (test code = 78) [facility]inghamLDL cholesterol, mafoz7593-76-35 09:53:00 Test Item Value Reference Range Interpretation Comments LDL cholesterol, serum (test code = 133 mg/dL 0-99 H 2088-11) [facility] low density movimgufjhff8712-66-41 09:53:00 Test Item Value Reference Range Interpretation Comments very low density lipoproteins (test 36 mg/dL 5-40 code = 2090-7) [facility]HDL cholesterol, cfppx0278-35-87 09:53:00 Test Item Value Reference Range Interpretation Comments HDL cholesterol, serum (test code = 45 mg/dL >39 2084-9) [facility]lycer[facility], serum, cekyoer9564-15-73 09:53:00 Test Item Value Reference Range Interpretation Comments triglyceride, serum, fasting (test 178 mg/dL 0-149 H code = 2571-8) [facility]cholesterol, eclbu5874-55-80 09:53:00 Test Item Value Reference Range Interpretation Comments cholesterol, serum (test code = 214 mg/dL 100-199 H 2092-3) [facility]inghamalanine aminotransferase (SGPT), wyibm0278-90-64 09:53:00 Test Item Value Reference Range Interpretation Comments alanine aminotransferase (SGPT), serum 9 1/L 0-32 (test code = 1742-6) [facility]ate [facility]otransferase (SGOT), zpmqr3141-95-74 09:53:00 Test Item Value Reference Range Interpretation Comments aspartate aminotransferase (SGOT), 10 1/L 0-40 serum (test code = 1920-8) [facility]inghamalkaline phosphatase, hxcaz0337-42-75 09:53:00 Test Item Value Reference Range Interpretation Comments alkaline phosphatase, serum (test 120 1/L 39-117 H code = 1783-0) [facility] Healthbilirubin, serum, ulrrs4927-35-34 09:53:00 Test Item Value Reference Range Interpretation Comments bilirubin, serum, total (test code 0.5 mg/dL 0.0-1.2 = 1974-2) [facility] Healthalbumin/globulin ratio, wwatc8394-01-74 09:53:00 Test Item Value Reference Range Interpretation Comments albumin/globulin ratio, serum (test 1.7 1.1-2.5 code = 1759-0) [facility] Healthglobulin, mjhzt9471-42-48 09:53:00 Test Item Value Reference Range Interpretation Comments globulin, serum (test code = 2336-6) 2.7 1.5-4.5 [facility] Healthalbumin, jiusc0116-92-36 09:53:00 Test Item Value Reference Range Interpretation Comments albumin, serum (test code = 1751-7) 4.6 g/dL 3.5-5.5 [facility] Healthprotein, total, mdswy8677-91-71 09:53:00 Test Item Value Reference Range Interpretation Comments protein, total, serum (test code = 7.3 g/dL 6.0-8.5 2885-2) [facility] Healthcalcium, fbupd8144-70-61 09:53:00 Test Item Value Reference Range Interpretation Comments calcium, serum (test code = 1999-8) 9.7 mg/dL 8.7-10.2 [facility] dioxide, venous swkqy4685-23-18 09:53:00 Test Item Value Reference Range Interpretation Comments carbon dioxide, venous blood (test 27 mmol/L 18-29 code = 2026-1) [facility]inghamchloride, jsntu9447-77-15 09:53:00 Test Item Value Reference Range Interpretation Comments chloride, serum (test code = 100 mmol/L 97-108 2074-0) [facility]ampotassium, smigl4277-80-99 09:53:00 Test Item Value Reference Range Interpretation Comments potassium, serum (test code = 4.4 mmol/L 3.5-5.2 2823-3) [facility]amsodium, xolia7404-30-33 09:53:00 Test Item Value Reference Range Interpretation Comments sodium, serum (test code = 2951-2) 142 mmol/L 134-144 [facility]ingham[facility]a nitrogen/creatinine ratio, xxdjy4535-53-90 09:53:00 Test Item Value Reference Range Interpretation Comments urea nitrogen/creatinine ratio, serum 15 9-23 (test code = 3097-3) [facility] HealtheGFR if Wfqxqvgy0835-82-79 09:53:00 Test Item Value Reference Range Interpretation Comments eGFR if 105 >59 (test code = 70771-9) mL/min/((173/100).m2) [facility]inghamEstimated Glomerular Filtration Rate (calc)2015-03-03 09:53:00 Test Item Value Reference Range Interpretation Comments Estimated Glomerular 91 >59 Filtration Rate (calc) mL/min/((173/100).m2 (test code = 34917-7) ) [facility]inghamcreatinine, dhbua4861-86-82 09:53:00 Test Item Value Reference Range Interpretation Comments creatinine, serum (test code = 0.74 mg/dL 0.57-1.00 2160-0) [facility]ingham[facility] nitrogen, lplkk3204-79-93 09:53:00 Test Item Value Reference Range Interpretation Comments urea nitrogen, blood (test code = 11 mg/dL 6-24 3094-0) [facility] glucose, ezaims3939-07-38 09:53:00 Test Item Value Reference Range Interpretation Comments blood glucose, random (test code = 96 mg/dL 65-99 2339-0) [facility]inghamimmature granulocytes, percentage of total cells, blood 2015-03-03 09:53:00 Test Item Value Reference Range Interpretation Comments immature granulocytes, percentage of 0 % total cells, blood (test code = 15964-4) [facility]ophil count, gcohmpvq9532-45-27 09:53:00 Test Item Value Reference Range Interpretation Comments basophil count, absolute (test 0.0 x10E3/uL 0.0-0.2 code = 34124-3) [facility] HealthEosinophil Absolute Vhoeu2498-92-05 09:53:00 Test Item Value Reference Range Interpretation Comments Eosinophil Absolute Count (test 0.2 X10E3/UL 0.0-0.4 code = 84141-6) [facility] Healthmonocyte count, blood, eplwvcmoc8207-86-54 09:53:00 Test Item Value Reference Range Interpretation Comments monocyte count, blood, automated 0.3 X10E3/UL 0.1-0.9 (test code = 742-7) [facility] Healthlymphocyte count, blood, gvkvgknbr3916-20-22 09:53:00 Test Item Value Reference Range Interpretation Comments lymphocyte count, blood, 1.7 X10E3/UL 0.7-3.1 automated (test code = 731-0) [facility] HealthAbsolute Tbxrivaovbq0538-42-63 09:53:00 Test Item Value Reference Range Interpretation Comments Absolute Neutrophils (test code 3.5 X10E3/UL 1.4-7.0 = 88354-4) [facility] Healthbasophils as percent of blood iqtpzpdrwk8026-56-84 09:53:00 Test Item Value Reference Range Interpretation Comments basophils as percent of blood 0 % leukocytes (test code = 707-0) [facility] Healtheosinophils as percent of blood jskjnliyiw6764-00-96 09:53:00 Test Item Value Reference Range Interpretation Comments eosinophils as percent of blood 4 % leukocytes (test code = 713-8) [facility] Healthmonocytes as percent of blood cayydwrrng5272-63-35 09:53:00 Test Item Value Reference Range Interpretation Comments monocytes as percent of blood 6 % leukocytes (test code = 5905-5) [facility] Healthlymphocytes as percent of blood zlrilzwqyd7461-09-56 09:53:00 Test Item Value Reference Range Interpretation Comments lymphocytes as percent of blood 30 % leukocytes (test code = 736-9) [facility] Healthneutrophils as percent of blood jrnmpebidp6793-57-49 09:53:00 Test Item Value Reference Range Interpretation Comments neutrophils as percent of blood 60 % leukocytes (test code = 770-8) [facility] Healthplatelet wdahy6357-33-13 09:53:00 Test Item Value Reference Range Interpretation Comments platelet count (test code = 225 X10E3/UL 150-379 777-3) [facility] blood cell distribution lttfi8309-54-92 09:53:00 Test Item Value Reference Range Interpretation Comments red blood cell distribution width 13.6 % 12.3-15.4 (test code = 788-0) [facility] corpuscular hemoglobin concentration, [id number] 09:53:00 Test Item Value Reference Range Interpretation Comments mean corpuscular hemoglobin 33.3 G/DL 31.5-35.7 concentration, RBC (test code = 786-4) [facility] corpuscular hemoglobin, [id number] 09:53:00 Test Item Value Reference Range Interpretation Comments mean corpuscular hemoglobin, RBC 35.4 pg 26.6-33.0 H (test code = 785-6) [facility] corpuscular volume, XTX1788-13-54 09:53:00 Test Item Value Reference Range Interpretation Comments mean corpuscular volume, RBC (test 106 fL 79-97 H code = 787-2) [facility]ocrit, bjcde2853-94-64 09:53:00 Test Item Value Reference Range Interpretation Comments hematocrit, blood (test code = 4544-3) 44.1 % 34.0-46.6 [facility]oglobin, dtwst3610-58-41 09:53:00 Test Item Value Reference Range Interpretation Comments hemoglobin, blood (test code = 14.7 g/dL 11.1-15.9 718-7) [facility]ingham[facility]throcyte (RBC) vrhqn4865-21-05 09:53:00 Test Item Value Reference Range Interpretation Comments erythrocyte (RBC) count (test 4.15 X10E6/UL 3.77-5.28 code = 789-8) [facility]leukocyte count, ywxqu4314-20-13 09:53:00 Test Item Value Reference Range Interpretation Comments leukocyte count, blood (test 5.8 X10E3/UL 3.4-10.8 code = 6690-2) [facility]inghamCD4/CD8 fuxge2701-70-93 09:53:00 Test Item Value Reference Range Interpretation Comments CD4/CD8 ratio (test code = 96350) 0.73 0.92-3.72 L [facility]inghamT-suppressor cells (CD8) as percent of blood lymphocytes 2015-03-03 09:53:00 Test Item Value Reference Range Interpretation Comments T-suppressor cells (CD8) as percent of 25.7 % 12.0-35.5 blood lymphocytes (test code = 3517) [facility] [id number] 09:53:00 Test Item Value Reference Range Interpretation Comments absolute CD8 (test code = 14613) 437 109-897 [facility]inghamT-helper cells (CD4) as percent of blood lymphocytes 2015-03-03 09:53:00 Test Item Value Reference Range Interpretation Comments T-helper cells (CD4) as percent of 18.7 % 30.8-58.5 L blood lymphocytes (test code = 8123-2) [facility]inghamT-helper cells (CD4) twbaz2114-79-76 09:53:00 Test Item Value Reference Range Interpretation Comments T-helper cells (CD4) count (test code 318 /UL 359-2539 L = 49770-4) [facility]- XR CHEST 1 [id number] 08:19:00 FAX: Yudith Crenshaw [phone] [place]: St: DIS FAX: Manuel Esteban [phone] Name: GUERRERO MURRIETA [facility] : 1960 Age/S: 53/F [address] [facility] Unit #: [id number] Loc: [place], [place] Phys: [place] [id number] Acct: [id number] Dis Date: Status: DIS IN PHONE #: [phone] Exam Date: 02/27/2014 08 FAX #: [phone] Reason: COPD EXAMS: CPT CODE: [id number] XR CHEST 1 V 60803 CHEST, FRONTAL VIEW HISTORY: COPD FINDINGS: Since 02/26/14, lungs remain emphysematous and clear. The heart size is normal. Aorta is partially calcified. Minimal degenerative changes affect the thoracic spine. IMPRESSION: No ev idence of acute airspace disease. at 0819 Reported and signed by: Anita Gonzales M.D. CC: Yudith Eastman MD; Manuel Esteban MD Technologist: LEXI VINSON Trnmerd Date/Time/By: 02/27/2014 (0819) : By: [email or web address] PAGE 1 Signed Report FAX: Yudith Crenshaw [phone] [place]: St: DIS FAX: Manuel Esteban MD [phone] Name: GUERRERO MURRIETA [facility] : 1960 Age/S: 53/F [address] [facility] Unit #: [id number] Loc: [place], [place] Phys: [place] [id number] Acct: [id number] Dis Date: Status: DIS IN PHONE #: [phone] Exam Date: 02/27/2014 08 FAX #: [phone] Reason: COPD EXAMS: CPT CODE: [id number] XR CHEST 1 V 77540 <Continued> Orig Print D/T: S: 02/27/2014 (0822) PAGE 2 Signed Report- XR CHEST 1 [id number] 21:21:00 FAX: Manuel Esteban MD [phone] [place]: St: DIS Name: GUERRERO MURRIETA [facility] : 1960 Age/S: 53/F [address] [facility] Unit[facility] [id number] Loc: [place], [place]: [place] [id number] Acct: [id number] Dis Date: Status: DIS IN PHONE #: [phone] Exam Date: 02/26/2014 1748 FAX #: [phone] Reason: CHEST PAIN EXAMS: CPT CODE: [id number] XR CHEST 1 V 28907 CHEST, FRONTAL VIEW HISTORY: CHEST PAIN FINDINGS: Since 02/03/14, lungs are emphysematous and clear. The heart size is normal. Aorta is partially calcified. The bones are intact. IMPRESSION: No evidence of acute airspace disease. at 2121 Reported and signed by: Anita Gonzales M.D. CC: Manuel Esteban MD Technologist: PEÑA SMITH [facility] Date/Time/By: 02/26/2014 (2120) : By: [email or web address] PAGE 1 Signed Report FAX: Manuel Esteban MD [phone] [place]: St: DIS----- Name: GUERRERO MURRIETA [facility] : 1960 Age/S: 53/F [address] [facility] Unit #: [id number] Loc: [place], [place]: [place] [id number] Acct: [id number] Dis Date: Status: DIS IN PHONE #: [phone] Exam Date: 02/26/2014 1748 FAX #: [phone] Reason: CHEST PAIN EXAMS: CPT CODE: [id number] XR CHEST 1 V 66692 <Continued> Orig Print D/T: S: 02/26/2014 (5157) PAGE 2 Signed Report- XR CHEST 1 [id number] 16:54:00 FAX: Amaya Estrada MD [phone] [place]: St: [facility] Name: GUERRERO MURRIETA [facility] : 1960 Age/S: 53/F [address] [facility] Unit#: [id number] Loc: [place], [place]: [place] [address] Acct: [id number] Dis Date: Status: UNK PHONE #: [phone] Exam Date: 02/03/2014 1622 FAX #: [phone] Reason: cp EXAMS: CPT CODE: [id number] XR CHEST 1 V 49352 REASON FOR EXAM: Chest pain COMPARISON: 2012. Chest, single view portable The lungs are hyperinflated and clear. Heart size is normal. No effusion or pneumothorax can be seen. Osseous structures appear to be intact. IMPRESSION: No acute cardiopulmonary disease. Hyperinflated lung pattern. at 5781 Reported and signed by: Zoran Fuller M.D. CC: Amaya Estrada MD Technologist: YESY LOCKETT Trnmerd Date/Time/By: 02/03/2014 (7067) : By: [facility] PAGE 1 Signed Report FAX: Amaya Estrada MD [phone] [place]: St: UNK------- Name: GUERRERO MURRIETA [facility] : 1960 Age/S: 53/F [address] Unit #: [id number] Loc: [place], [place]: [place] [address] Acct: [id number] Dis Date: Status: [facility] PHONE #: [phone] Exam Date: 02/03/2014 1622 FAX #: [phone] Reason: cp EXAMS: CPT CODE: [id number] XR CHEST 1 V 19817 <Continued> Orig Print D/T: S: 02/03/2014 (8808) PAGE 2 Signed Report- CT ABD PELVIS W/[id number] 07:54:00 FAX: Julia Burns MD [phone] [place]: St: CAROL Name: GUERRERO MURRIETA [facility] : 1960 Age/S: 52/F [address] Unit: [id number] Loc: [place], [place]: [place] [address] Acct: [id number] Dis Date: Status: [employer] PHONE #: [phone] Exam Date: 10/18/2013 2345 FAX #: [phone] Reason: gen'd abd pain, IV contrast only EXAMS: CPT CODE: [id number] CT ABD PELVIS W/CONT 67228 HISTORY: Abdominal pain, nausea and vomiting. CT [...] Signed Report (CONTINUED) FAX: Julia Burns MD [phone] [place]: St: [facility] -- Name: GUERRERO MURRIETA [facility] : 1960 Age/S: 52/F [address] [employer] Unit: [id number] Loc: [place], [place]: [place] [address] Acct: [id number] Dis Date: Status: [facility] PHONE #: [phone] Exam Date: 10/18/2013 8352 FAX #: [phone] Reason: gen'dabd pain, IV contrast only EXAMS: CPT CODE: [id number] CT ABD PELVIS W/CONT 18305 <Continued> Electronically Signed by Aureliano Fuller on10/19/2013 at 6025 Reported and signed by: Zoran Fuller M.D. CC: Julia Burns MD Technologist: YESY Ramirez Dt/Tm: 10/19/2013 (0754) [email or web address] Orig Print D/T: S: 10/19/2013 (0758 6.44 321.13 PAGE 2 Signed Report- XR CHEST 1 [id number] 21:46:00 FAX: Alec Damian MD [phone] [place]: St: [facility] FAX: Julia Burns MD [phone] Name: GUERRERO MURRIETA [facility] : 1960 Age/S: 52/F [address] [facility] Unit #: [id number] Loc: [place], [place]: [place] [address] Acct: [id number] Dis Date: Status: [facility] PHONE #: [phone] Exam Date: 10/18/20132131 FAX #: [phone] Reason: abd pain EXAMS: CPT CODE: [id number] XR CHEST 1 V 45892 CHEST, 1 VIEW HISTORY: abd pain FINDINGS: [...] PEÑA Ramirez Date/Time/By: 10/18/2013 (2145) : By: [email or web address] PAGE 1 Signed Report FAX: Alec Damian MD [phone] [place]: St: [facility] FAX: Julia Burns MD [phone] Name: GUERRERO MURRIETA NOLVIA [facility] : 1960 Age/S: 52/F [address] [facility] Unit #: [id number] Loc: [place], [place]: [place] [address] Acct: [id number] Dis Date: Status: UNK PHONE #: [phone] Exam Date: 10/18/20132131 FAX #: [phone] Reason: abd pain EXAMS: CPT CODE: [id number] XR CHEST 1 V 99589 <Continued> Orig Print D/T: S: 10/18/2013 (5463) PAGE 2 Signed Report- XR CHEST 1 [id number] 10:12:00 FAX: Mikhail eBnder MD [phone] [place]: St: [facility] FAX: Yudith Crenshaw [phone] Name: GLENNYGUERRERO ANN [facility] : 1960 Age/S: 52/F [address] Unit #: [id number] Loc: [place], [place]: [place] [address] Acct: [id number] Dis Date: Status: [facility] PHONE #: [phone] Exam Date: 05/18/2013 09 FAX #: [phone] Reason: SOB EXAMS: CPT CODE: [id number] XR CHEST 1 V 87546 REASON FOR EX AM: Shortness of breath [...] MD; Yudith Eastman MD Technologist: ROE GARZA [facility] Date/Time/By: 05/18/2013 (1012) : By: [facility] PAGE 1 Signed Report FAX: Mikhail Bender MD [phone] [place]: Yudith Crenshaw [phone] Name: GUERRERO MURRIETA [facility] : 1960 Age/S: 52/F [address] Unit #: [id number] c: [place], [place]: [place] [address] Acct: [id number] Dis Date: Status: [facility] PHONE #: [phone] Exam Date: 05/18/2013904 FAX #: [phone] Reason: SOB EXAMS: CPT CODE: [id number] XR CHEST 1 V 13403 <Continued> Orig Print D/T: S: 05/18/2013 (1015) PAGE 2 Signed Report- MRI BRAIN W WO [id number] 13:45:00 FAX: Mikhail Bender MD [phone] [place]: St: [facility] FAX: Alfred Yudith Choi [phone] Name: GUERRERO MURRIETA [facility] : 1960 Age/S: 52/F [address] [facility] Unit #: [id number] Loc: [place], [place]: [place] [address] Acct: [id number] Dis Date: Status: K PHONE #: [phone] Exam Date: 05/15/2013950 FAX #: [phone] Reason: ANISOCORIA DIPLOPIS EXAMS: CPT CODE: [id number] MRI BRAIN W WO CONT 15281 CLINICAL HISTORY: Anisocoria, diplopia MRI brain ,with [...] be symmetric. Appropriate flow-void occurs in the [place] of [place]. No evidence of hemorrhage seen. [...] Signed Report (CONTINUED) FAX: Mikhail Bender MD [phone] [place]: St: [facility] FAX: Alfred EastmanYudith Catie [phone] Name: GUERRERO MURRIETA [facility] : 1960 Age/S: 52/F [address] [facility] Unit #: [id number] Loc: [place], [place]: [place] [address] Acct: [id number] Dis Date: Status: [facility] PHONE #: [phone] Exam Date: 05/15/2013 0951 FAX #: [phone] Reason: ANISOCORIA DIPLOPIS EXAMS: CPT CODE: [id number] MRI BRAIN W WO CONT 33369 &lt ;Continued> orbit with hypoplastic right maxillary sinus could support sick sinus syndrome. No current obstruction is seen. at 1349 Reported and signed by: Zoran Fuller M.D. CC: Mikhail Lamb MD; Yudith Eastman MD Technologist: MIO HSU; ELVIN RAMIREZ Trnscrd Date/Time/By: 05/15/2013 (0394) : By: [facility] PAGE 2 Signed Report FAX: Mikhail Bender MD [phone] [place]: St:[facility] FAX: Yudith Crenshaw [phone] Name: GUERRERO MURRIETA [facility] : 1960 Age/S: 52/F [address] [facility] Unit #: [id number] Loc: [place], [place]: [place] [address] Acct: [id number] Dis Date: Status: K PHONE #: [phone] Exam Date: 05/15/2013 0951 FAX #: [phone] Reason: ANISOCORIA DIPLOPIS EXAMS: CPT CODE: [id number] MRI BRAIN W WO CONT 31623 <Continued> Orig Print D/T: S: 05/15/2013 (9789) PAGE 3 Signed Report- CT CHEST W/O CONTRAST 2013-05-14 21:40:00 FAX: Mikhail Bender MD [phone] [place]: St: [facility] FAX: Yudith Crenshaw [phone] Name: GUERRERO MURRIETA [facility] : 1960 Age/S: 52/F [address] Unit: [id number] Loc: [place], [place]: [place] [address] Acct: [id number] Dis Date: Status: UNK PHONE #: [phone] Exam Date: 05/14/20131953 FAX #: [phone] Reason: SOB EXAMS: CPT CODE: [id number] CT CHEST W/O CONTRAST 40175 Reason for ex am, shortness of breath, [...] PAGE 1 Signed Report- XR CHEST 2 [id number] 17:37:00 FAX: Yudith Crenshaw [phone] [place]: St: UNK Name: GUERRERO MURRIETA [facility] : 1960 Age/S: 52/F [address] [facility] [employer] Unit#: [id number] Loc: [place], [place] [address] Acct: [id number] Dis Date: Status: K PHONE #: [phone] Exam Date: 05/14/2013 1548 FAX #: [phone] Reason: COPD PNEUMONIA EXAMS: CPT CODE: [id number] XR CHEST 2 V 31916 CHEST, 2 VIEWS HISTORY: COPD PNEUMONIA COMPARISON: Chest x- ray 05/12/2013 FINDINGS: The lungs are hyperexpanded. There are bilateral diffuse interstitial markings. No significant pleural effusions. The cardiomediastinal contours are stable. No acute bone abnormality. IMPRESSION: 1.Diffuse interstitial markings likely represent interstitial pneumonia or other interstitial disease. Followup recommended. 2. Findings compatible clinical diagnosis of COPD. at 1733 Reported and signed by: Gonzalo Hall M.D. CC: Yudith Eastman MD Technologist: PEÑA SMITH Trnscrd Date/Time/By: 05/14/2013 (6624) : By: [email or web address] PAGE 1 Signed Report FAX: Yudith Crenshaw [phone] [place]: St: UNK Name: GUERRERO MURRIETA [facility] : 1960 Age/S: 52/F [address] [facility] [id number] Loc: [place], [place] Phys: [place] [address] Acct: [id number] Dis Date: Status: [facility] PHONE #: [phone] Exam Date: 05/14/2013 1548 FAX #: [phone] Reason: COPD PNEUMONIA EXAMS: CPT CODE: [id number] XR CHEST 2 V 82759 <Continued> Orig Print D/T: S: 05/14/2013 (0641) PAGE 2 Signed Report- XR CHEST 1 [id number] 16:06:00 FAX: Melida Borges [phone] [place]: St: [facility] Name: GUERRERO MURRIETA [facility] : 1960 Age/S: 52/F [address] [facility] Unit#: [id number] Loc: [place], [place]: [place] [address] Acct: [id number] Dis Date: Status: [facility] PHONE #: [phone] Exam Date: 05/12/2013 1547 FAX #: [phone] Reason: copd/cough, shortness of breath EXAMS: CPT CODE: [id number] XR CHEST 1 V 89620 REASON FOR EXAM: Cough, COPD, shortness of breath COMPARISON: October 18, 2012. Chest, single view portable The lungs are hyperinflated consistent with COPD. More but no infiltrates are appreciated focally. Heart size is intact.. No effusion or pneumothorax can be seen. Osseous structures appear to be intact. IMPRESSION: COPD changes. Interstitial patterncould indicate interstitial pneumonia/ disease or non-cardiogenic edema. at 8232 Reported and signed by: Zoran Fuller M.D. CC: Melida Singh Technologist: LEXI HOLCOMB [facility] Date/Time/By: 05/12/2013 (7601) : By: [facility] PAGE 1 Signed Report FAX: Melida Borges [phone] [place]: St: UNK ------ Name: GUERRERO MURRIETA [facility] : 1960Age/S: 52/F [address] [facility] [employer] Unit #: [id number] Loc: [place], [place]: [place] [address] Acct: [id number] Dis Date: Status: UNK PHONE #:[phone] Exam Date: 05/12/2013 1547 FAX #: [phone] Reason: copd/cough, shortness of breath EXAMS: CPT CODE: [id number] XR CHEST 1 V 89667 <Continued> Orig Print D/T: S: 05/12/2013 (6584) PAGE 2 Signed Report- CT ABD PELVIS [id number] 17:45:00 FAX: Bossman Nassar MD [place]: [facility]: UNK Name: GUERRERO MURRIETA [facility] : 1960 Age/S: 51/F [address] [facility] Unit: [id number] Loc: [place], [place]: [place] [address] Acct: [id number] Dis Date: Status: UNK PHONE #: [phone] Exam Date: 12/20/2012 1729 FAX #: [phone] Reason: generalized abd pain EXAMS: CPT CODE: [id number] CT ABD PELVIS W/CONT 70619 HISTORY: Generalized abdominal pain. CT abdomen contrast- [...] Signed Report (CONTINUED) FAX: Bossman Nassar MD [place]: St: [facility] Name: GUERRERO MURRIETA [facility] : 1960 Age/S: 51/F [address] Unit: [id number] Loc: [place], [place]: [place] [address] Acct: [id number] Dis Date: Status: [facility] PHONE #: [phone] Exam Date: 12/20/2012 1729 FAX #: Reason: generalized abd pain EXAMS: CPT CODE: [id number] CT ABD PELVIS W/CONT 01587 <Continued> CONCLUSION: No acute abnormality in the deep pelvis. Hysterectomy. Sigmoid diverticulosis without obvious active disease. Limited bowel loop assessment however. at 2288 Reported and signed by: RobertC. Alina M.D. CC: Bossman Nassar MD Technologist: SILVANO WRIGHT Trnmerd Dt/Tm: 12/20/2012 (7004) [email or web address] Orig Print D/T: S: 12/20/2012 (2641 PAGE 2 Signed Report- XR CHEST 2 [id number] 14:58:00 FAX: Bossman Nassar MD [place]: St: [facility] Name: GUERRERO MURRIETA [facility] : 1960 Age/S: 51/F [address] Unit#: [id number] Loc: [place], [place]: [place] [address] Acct: [id number] Dis Date: Status: [facility] PHONE #: [phone] Exam Date: 10/18/2012 1416 FAX #: [phone] Reason: cough, fever EXAMS: CPT CODE: [id number] XR CHEST 2 V 41737 CHEST, 2 VIEWS HISTORY: cough, fever FINDINGS: Since 09/18/12, minimal atelectasis is noted in the left lower lobe. The previously seen faint density in the lung base has resolved. The lungs are otherwise clear. The heart size is normal. Minimal degenerative changes affect the thoracic spine. IMPRESSION: Aside from minimal atelectasis, no evidence of acute airspacedisease. at 6168 Reported and signed by: Anita Gonzales M.D. CC: Bossman Nassar MD Technologist: ANITA Ramirez Date/Time/By: 10/18/2012 (7214) : By: [email or web address] PAGE 1 Signed Report FAX: Bossman Belcher MD [place]: St: UNK Name: GUERRERO MURRIETA [facility] : 1960 Age/S: 51/F [address] [facility] Unit #: [id number] Loc: [place], [place]: [place] [address] Acct: [id number] Dis Date: Status: UNK PHONE #: [phone] Exam Date: 10/18/2012 1416 FAX#: [phone] Reason: cough, fever EXAMS: CPT CODE: [id number] XR CHEST 2 V 42460 <Continued> Orig Print D/T: S: 10/18/2012 (150) PAGE 2 Signed Report- XR CHEST 1 [id number] 13:03:00 [place]: St: UNK Name: GUERRERO MURRIETA [facility] : 1960 Age/S: 51/F [address] [facility] [address] Unit#: [id number] Loc: [place], [place]: [place] [address] Acct: [id number] Dis Date: Status: [facility] PHONE #: [phone] Exam Date: 09/18/2012 1234 FAX #: [phone] Reason: CHEST PAIN EXAMS: CPT CODE: [id number] XR CHEST 1 V 46417 CHEST, 1 VIEW HISTORY: chest pain. FINDINGS: [...] M.D. CC: Technologist: ADELA Ramirez Date/Time/By: 09/18/2012 (1303) : By: [email or web address] PAGE 1 Signed Report [place]: St: [facility] Name: GUERRERO MURRIETA [facility] : 1960 Age/S: 51/F [address] [facility] [address] Unit #: [id number] Loc: [place], [place]: [place] [address] Acct: [id number] Dis Date: Status: [facility] PHONE #: [phone] Exam Date: 09/18/2012 1234 FAX #: [phone] Reason: CHEST PAIN EXAMS: CPT CODE: [id number] XR CHEST 1 V 27439 <Continued> Orig Print D/T: S: 09/18/2012 (8603) PAGE 2 Signed Report- CT HEAD/BRAIN W/O [id number] 11:38:00 [place]: St: UNK Name: GUERRERO MURRIETA [facility] : 1960 Age/S: 51/F [address] [facility] Unit: [id number] Loc: [place], [place]: [place] [address] Acct: [id number] Dis Date: Status: UNK PHONE #: [phone] Exam Date: 09/18/2012 1135 FAX #: [phone] Reason: dizzy EXAMS: CPT CODE: [id number] CT HEAD/BRAIN W/O CONT 15760 HISTORY: Dizziness. TECHNIQUE: Axial noncontrastCT images of [...] signed by: Colt Sorensen CC: Technologist: ARIEL Ramirez Dt/Tm: 09/18/2012 (9025) [email or web address] Orig Print D/T: S: 09/18/2012 (2633 PAGE 1 Signed Report
[2021-01-26 16:52] LABS: Basophils % 0.4 % (0-1.3); Hematocrit 38.9 % (36.0-45.0); Lymphocytes % 10.9 % (15.3-44.8); MPV 8.5 fL (7.6-11.3); RBC Red Blood Cell Count 3.84 M/uL (3.86-4.86)
[2021-01-26 17:09] LABS: ALT/SGPT 20 U/L (12-78); AST/SGOT 11 U/L (15-37); Albumin 2.8 g/dL (3.4-5.0); Alkaline Phosphatase 88 U/L (45-117); BUN Blood Urea Nitrogen 9 mg/dL (7-18); Bicarbonate 31 mmol/L (21-32); Bilirubin Direct < 0.1 mg/dL (0-0.2); Bilirubin Total 0.2 mg/dL (0.2-1.0); Glucose Level 131 mg/dL (74-106); Lipase 58 U/L (73-393); Potassium 4.2 mmol/L (3.5-5.1); Protein, Total 6.9 g/dL (6.4-8.2); Sodium Level 137 mmol/L (136-145)
--- NOTE | 2021-01-26 18:00 | RAD REPORT ---
EXAM DESCRIPTION: CTAbdomen Pelvis W Contrast - 01/26/2021 5:47 pm CLINICAL HISTORY: Abdominal pain. abdominal pain COMPARISON: Abdomen Pelvis W Contrast dated 10/07/2020; Abdomen Pelvis W Contrast dated 8; Abdomen Pelvis W Contrast dated 04/15/2017 TECHNIQUE: Biphasic CT imaging of the abdomen and pelvis was performed with 100 ml non-ionic IV cont rast. All CT scans are performed using dose optimization technique as appropriate and may include automated exposure control or mA/KV adjustment according to patient size. FINDINGS: Linear subsegmental atelectasis is present in both posterior lung bases. The liver, spleen, pancreas, adrenal glands and kidneys are within normal limits. No bowel obstruction, free air, free fluid or abscess. Sigmoid diverticulosis is present without evid ence of diverticulitis. Moderate fecal retention throughout the colon is seen. The appendix is not id entified as a discrete structure, however, no secondary findings of appendicitis are identified. No evidence of significant lymphadenopathy. No suspicious bony findings. IMPRESSION: No acute intra-abdominal or pelvic finding. Moderate sigmoid diverticulosis coli without diverticulitis. Moderate stool retention throughout the colon is seen.
--- NOTE | 2021-01-26 18:05 | EDPHYS ---
Physician Documentation [facility] Name: Lucia Arias Age: 60 yrs Sex: Female : 1960 Arrival Date: 01/26/2021 Time: 16:10 Bed 13 Private MD: ED Physician Vern Kidd HPI: 01/26 16:31 This 60 yrs old Female presents to ER via EMS with complaints of Abdominal jmm Pain, Constipation. 16:31 The patient presents with abdominal pain. Onset: The symptoms/episode began/occurred jmm gradually, 1 week(s) ago. The symptoms do not radiate. Associated signs and symptoms: Pertinent negatives: vomiting. The symptoms are described as achy. This is a 60 year old female with a history of atherosclerosis, bipolar, CAD, that presents to the ED with complaints of generalized abdominal pain and distension for the past week. Denies vomiting but has no had a BM since this past Tuesday. Denies fever. . Historical: - Allergies: 16:13 Codeine; iw 16:13 Demerol; iw 16:13 PENICILLINS; iw 16:13 Sulfa (Sulfonamide Antibiotics); iw 16:15 Codeine; ca1 16:15 Demerol; ca1 16:15 PENICILLINS; ca1 16:15 Sulfa (Sulfonamide Antibiotics); ca1 - PMHx: 16:15 Angina; Anxiety; ATHEROSCLEROSIS; Bipolar disorder; CAD; Cellulitis; Chronic pain; ca1 COPD; Depression; Diabetes - IDDM; Difficulty walking; GERD; HIV; Hyperlipidemia; LACK OF COORDINATION; MUSCLE WEAKNESS; neuropathy; Pneumonia; pulmonary edema; Schizophrenia; UTI; vitamin d deficiency; - Immunization history:: Flu vaccine is up to date. - Social history:: Smoking status: Patient reports the use of cigarette tobacco products, smokes one-half pack cigarettes per day. ROS: 16:31 Constitutional: Negative for fever, chills, and weight loss, Cardiovascular: Negative jmm for chest pain, palpitations, and edema, Respiratory: Negative for shortness of breath, cough, wheezing, and pleuritic chest pain. 16:31 Abdomen/GI: Positive for abdominal pain. 16:31 All other systems are negative. Exam: 16:31 Constitutional: This is a well developed, well nourished patient who is awake, alert, jmm and in no acute distress. Head/Face: atraumatic. Eyes: EOMI, no conjunctival erythema appreciated ENT: Moist Mucus Membranes Neck: Trachea midline, Supple Chest/axilla: Normal chest wall appearance and motion. Cardiovascular: Regular rate and rhythm. No edema appreciated Respiratory: Normal respirations, no respiratory distress appreciated 16:31 Skin: General appearance color normal MS/ Extremity: Moves all extremities, no obvious deformities appreciated, no edema noted to the lower extremities Neuro: Awake and alert, normal gait Psych: Behavior is normal, Mood is normal, Patient is cooperative and pleasant 16:31 Abdomen/GI: Inspection: distension, that is moderate, Bowel sounds: normal, Palpation: soft, moderate abdominal tenderness, in the right upper quadrant, left upper quadrant, right lower quadrant and left lower quadrant. Vital Signs: 16:11 BP 104 / 67; Pulse 102; Resp 16 S; Temp 99.1(O); Pulse Ox 96% on 2 lpm NC; Weight 92.99 ca1 kg (R); Height 5 ft. 2 in. (157.48 cm) (R); Pain 10/10; 17:30 BP 110 / 72; Pulse 99; Resp 16; Pulse Ox 96% on 2 lpm NC; iw 16:11 Body Mass Index 37.49 (92.99 kg, 157.48 cm) ca1 MDM: 16:31 Patient medically screened. [facility] 18:02 Data reviewed: vital signs, nurses notes. Counseling: I had a detailed discussion with mak the patient and/or guardian regarding: the historical points, exam findings, and any diagnostic results supporting the discharge/admit diagnosis, lab results, radiology results, the need for outpatient follow up, to return to the emergency department if symptoms worsen or persist or if there are any questions or concerns that arise at home. ED course: Patient is alert and non toxic in appearance in the ED. No signs of resp distress appreciated. CT is negative for an acute process. Patient is advised to follow up with GI. Patient is otherwise given strict return precautions. Patient understood and agrees with the plan of care. . 01/26 16:31 Order name: Basic Metabolic Panel; Complete Time: 17:11 [facility] 01/26 16:31 Order name: CBC with Diff; Complete Time: 17:11 [facility] 01/26 16:31 Order name: Hepatic Function; Complete Time: 17:11 [facility] 01/26 16: Order name: Lipase; Complete Time: 17:11 [facility] 01/26 16:31 Order name: IV Saline Lock; Complete Time: 16:51 [facility] 01/26 16:31 Order name: CT Abd/Pelvis - IV Contrast Only; Complete Time: 18:02 [facility] 01/26 16:31 Order name: Labs collected and sent; Complete Time: 16:51 [facility] Administered Medications: No medications were administered Disposition: 19:00 Co-signature as Attending Physician, Vern Kidd MD. rn Disposition: 01/26/21 18:05 Discharged to Home. Impression: Generalized abdominal pain, Constipation, unspecified. - Condition is Stable. - Discharge Instructions: Abdominal Pain, Adult, Constipation, Adult. - Prescriptions for Miralax 17 gram/dose Oral - take 1 packet by ORAL route once daily dilute powder in 8 ounces of water or juice; 1 Pack. - Medication Reconciliation Form, Thank You Letter, Antibiotic Education, Prescription Opioid Use form. - Follow up: Mary Mata MD; When: 2 - 3 days; Reason: Recheck today's complaints, Continuance of care, Re-evaluation by your physician. Signatures: Dispatcher [employer] EDMS Juan Jose Pandey PA PA jmm Williams, Irene, RN RN iw Nieto, Roman, MD MD rn Martinez, Eric Loreto Frederick RN RN [facility] Corrections: (The following items were deleted from the chart) 18:57 18:05 01/26/2021 18:05 Discharged to Home. Impression: Generalized abdominal pain; em1 Constipation, unspecified. Condition is Stable. Forms are Medication Reconciliation Form, Thank You Letter, Antibiotic Education, Prescription Opioid Use. Follow up: Mary Mata; When: 2 - 3 days; Reason: Recheck today's complaints, Continuance of care, Re-evaluation by your physician. [facility]
--- NOTE | 2021-01-26 18:05 | ER ---
Nurse's Notes [facility] Name: Lucia Arias Age: 60 yrs Sex: Female : 1960 Arrival Date: 01/26/2021 Time: 16:10 Bed 13 Private MD: Diagnosis: Generalized abdominal pain;Constipation, unspecified Presentation: 01/26 16:11 Chief complaint: EMS states: Abdominal pain, all over. Reports nausea and constipation. ca1 Has not eaten since Tuesday. Last BM Tuesday. Denies vomiting. IV 18G LFA, IV bolus given 200cc NS. Coronavirus screen: Client denies travel out of the [place] in the last 14 days. nausea, Client presents with at least one sign or symptom that may indicate coronavirus-19. Standard/surgical mask placed on the client. Provider contacted for isolation considerations. Ebola Screen: Patient negative for fever greater than or equal to 101.5 degrees Fahrenheit, and additional compatible Ebola Virus Disease symptoms Patient denies exposure to infectious person. Patient denies travel to an Ebola-affected area in the 21 days before illness onset. No symptoms or risks identified at this time. Initial Sepsis Screen: Does the patient meet any 2 criteria? No. Patient's initial sepsis screen is negative. Does the patient have a suspected source of infection? No. Patient's initial sepsis screen is negative. Risk Assessment: Do you want to hurt yourself or someone else? Patient reports no desire to harm self or others. Onset of symptoms was January 26, 2021. 16:11 Method Of Arrival: EMS: [facility] ca1 16:11 Acuity: LATONYA 3 ca1 Triage Assessment: 17:00 General: Appears in no apparent distress. Behavior is calm, cooperative. Pain: iw Complains of pain in abdomen. Historical: - Allergies: 16:13 Codeine; iw 16:13 Demerol; iw 16:13 PENICILLINS; iw 16:13 Sulfa (Sulfonamide Antibiotics); iw 16:15 Codeine; ca1 16:15 Demerol; ca1 16:15 PENICILLINS; ca1 16:15 Sulfa (Sulfonamide Antibiotics); ca1 - PMHx: 16:15 Angina; Anxiety; ATHEROSCLEROSIS; Bipolar disorder; CAD; Cellulitis; Chronic pain; ca1 COPD; Depression; Diabetes - IDDM; Difficulty walking; GERD; HIV; Hyperlipidemia; LACK OF COORDINATION; MUSCLE WEAKNESS; neuropathy; Pneumonia; pulmonary edema; Schizophrenia; UTI; vitamin d deficiency; - Immunization history:: Flu vaccine is up to date. - Social history:: Smoking status: Patient reports the use of cigarette tobacco products, smokes one-half pack cigarettes per day. Screenin:29 Abuse screen: Denies threats or abuse. Denies injuries from another. Nutritional iw screening: No deficits noted. Tuberculosis screening: No symptoms or risk factors identified. Assessment: 17:29 Reassessment: Patient appears in no apparent distress at this time. Patient and/or iw family updated on plan of care and expected duration. Pain level reassessed. Patient is alert, oriented x 3, equal unlabored respirations, skin warm/dry/pink. pt requesting warm blankets, given, awaiting CT. Vital Signs: 16:11 BP 104 / 67; Pulse 102; Resp 16 S; Temp 99.1(O); Pulse Ox 96% on 2 lpm NC; Weight 92.99 ca1 kg (R); Height 5 ft. 2 in. (157.48 cm) (R); Pain 10/10; 17:30 BP 110 / 72; Pulse 99; Resp 16; Pulse Ox 96% on 2 lpm NC; iw 16:11 Body Mass Index 37.49 (92.99 kg, 157.48 cm) ca1 ED Course: 16:10 Patient arrived in ED. iw 16:10 Maintain EMS IV. Dressing intact. Good blood return noted. Site clean \T\ dry. Gauge \T\ iw site: 18 LFA. 16:14 Triage completed. ca1 16:15 Arm band placed on right wrist. ca1 16:21 Juan Jose Pandey PA is PHCP. jmm 16:21 Vern Kidd MD is Attending Physician. jmm 16:51 Ankita Ding, AUBREE is Primary Nurse. iw 17:47 CT Abd/Pelvis - IV Contrast Only In Process Unspecified. EDMS 18:04 Mary Mata MD is Referral Physician. jmm 18:46 No provider procedures requiring assistance completed. IV discontinued, intact, iw bleeding controlled, No redness/swelling at site. Pressure dressing applied. Administered Medications: No medications were administered Outcome: 18:05 Discharge ordered by MD. jmm 18:55 Discharged to residential. iw 18:55 Condition: good 18:55 Discharge instructions given to patient, residential, Instructed on discharge instructions, follow up and referral plans. Demonstrated understanding of instructions, follow-up care. 18:57 Patient left the ED. em1 Signatures: Dispatcher [employer] EDMS Juan Jose Pandey PA PA jmm Williams, Irene, Chalino Raphael RN em1 Loreto Vallejo RN RN ca1 Corrections: (The following items were deleted from the chart) 17:30 17:29 Reassessment: Patient appears in no apparent distress at this time. Patient iw and/or family updated on plan of care and expected duration. Pain level reassessed. Patient is alert, oriented x 3, equal unlabored respirations, skin warm/dry/pink. pt requesting warm blankets, given, awaiting CT iw 17:30 16:00 Maintain EMS IV. Dressing intact. Good blood return noted. Site clean \T\ dry. iw Gauge \T\ site: 18 LFA. iw
[2021-01-26 19:03] VITALS: TEMP 99.1; O2SAT 96
[2021-01-26 19:05] VITALS: BP 110/72
== END 2021-01-26 18:57 | disposition home or self-care (01) ==
LOC: ER 16:09
DX: K59.00 Constipation, unspecified (principal); F17.210 Nicotine dependence, cigarettes, uncomplicated; Z21 Asymptomatic human immunodeficiency virus [HIV] infection status; Z88.0 Allergy status to penicillin; Z88.2 Allergy status to sulfonamides; Z88.5 Allergy status to narcotic agent
CPT/HCPCS: 85025; 80048; 36415; 80076; 83690; 74177; 99283; Q9967

== ENCOUNTER 2021-04-08 21:33 | Emergency (ER) | payer OTHER ==
--- OUTSIDE RECORDS SUMMARY | 2021-04-08 21:42 | XMS REPORT | Continuity of Care Document ---
:1960 Author Organization [facility] t Address [address] [place] [address] Care Team Providers Name Role Phone Emerald Attending Clinician Unavailable Zahraa Attending Clinician [phone] Nan Attending Clinician Unavailable Manav Attending Clinician [...] Rosas Attending Clinician Unavailable Rosas Attending Clinician [phone] Juan A Attending Clinician [phone] Danish Attending Clinician Unavailable Ankit Cooper Attending Clinician Unavailable Bethel Attending Clinician Unavailable Tessa Attending Clinician Unavailable Hu Attending Clinician Unavailable Rakesh Attending Clinician Unavailable Bethel Attending Clinician Unavailable Raymundo Attending Clinician Unavailable Lance Attending Clinician Unavailable Ashutosh Rae Attending Clinician Unavailable Jennifer Attending Clinician [phone] Oliver Attending Clinician Unavailable Ángel Attending Clinician Unavailable Bolivar Attending Clinician Unavailable Michael Attending Clinician [phone] Kian Attending Clinician Unavailable Saman Attending Clinician Unavailable Blaine Attending Clinician Unavailable Tera Attending Clinician Unavailable Conor Attending Clinician [phone] Yoel Attending Clinician Unavailable Marilee Attending Clinician [phone] Leonard Attending Clinician [phone] Gentry Attending Clinician Unavailable Ed Attending Clinician Unavailable Bridger Attending Clinician [phone] Priscilla Attending Clinician Unavailable Rubina Attending Clinician [phone] Wozencraft Attending Clinician Unavailable Nemecek Unavailable [phone] Payers Payer Name Policy Type Policy Number Effective Date Expiration Date S ariane Sliding Fee - CI [id number] 2019 2020 [facility] 00:00:00 [facility] - 11 [id number] 2019 2019 [facility] 00:00:00 00:00:00 [facility] Sliding Fee - [id number] 2016 2020 [facility] 00:00:00 00:00:00 [facility] Sliding Fee - 11 [id number] 2016 2017 [facility] 00:00:00 00:00:00 [facility] Sliding Fee - CI [id number] 2016 2017 [facility] 00:00:00 00:00:00 [facility] Sliding Fee - 11 [id number] 2015 2017 [facility] 1 00:00:00 00:00:00 [facility] Problems Condition Condition Condition Status Onset Resolution [...] Health COPD Condition Active 2020-02-07 Sarabjit Vital - 10:44:35 Husam Lassiter 00:00: ty 00 Health FLU Diagnosis Active 2010-112011-11-16 Mem oria SYMPTOMS 01-17 12:41:00 l FLU 00:00: Oscar SYMPTOMS 00 Active 11/16/2011 [facility] Closed Closed Problem Active [facility] [...] foot, foot, Clinics initial initial encounter encounter HIV Problem Active [...] Oscar (finding) Active Problem 10/19/2020 [facility] Diabetes Problem Active 2020-10-19 Mem oria mellitus 01:22:40 l (disorder) Diabetes He rmnolvia mellitus (disorder) Active Problem 10/19/2020 [facility] Allergies, Adverse Reactions, Alerts Allergy Allergy Status Severity Reaction(s) Onset Inactive Treating Comm ents Source Name Type Date Date Clinician codeine DA Active [facility] 04-19 Clear 00:00: Choe 00 [facility] penicill DA Active [facility] in V 04-19 Clear 00:00: Choe 00 [facility] CODEINE Drug Active High [facility] allergy Criticali 03-18 Commun i (disorde ty 00:00: ty r) 00 Health PENICILL Drug Active High [facility] IN allergy Criticali 03-18 Commun i (disorde ty 00:00: ty r) 00 Health penicill Adverse Active Info Not [facility] Reaction [facility] codeine Adverse Active Info Not [facility] Reaction Available kes [facility] code[facility]ine [facility] pen[facility]ill Active [facility] Social [facility] Social Habit Start Date Stop Date Quantity Comments Source time of call 2020-12-05 2020-12-05 12/05/2020 11:45 AM [facility] 11:45:23 11:45:23 Health sexual orientation 2020-12-02 2020-12-02 Heterosexual [facility] 10:39:40 10:39:40 Health social history E&M 2020-12-02 2020-12-02 . Not [place] [facility] 10:39:40 10:39:40 homeless. Born in [facility]. City: [place]. State: [place]. Not employed. Gender of partner(s): male. Sexually [...] unity health literacy 10:39:40 10:39:40 Health (NCQA [facility] 2014 Standards, 3C10) passive cigarette 2020-02-07 [...] Refill(s) Oscar MG/ACTUAT 00 Metered Dose Nasal [place] [Flonase] gabapentin 2019-11 Yes 300 mg = 1 M emoria 300 MG Oral 1-19 cap, PO, l Capsule 21:07: TID, # 90 Ebony nn 00 cap, 0 Refill(s) Glucagon 2019-11 Yes ONCE, 0 Memori a 1-19 Refill(s) l 21:07: [place] 00 Insulin 2019-11 Yes SUB-Q, Memoria Lispro 100 1-19 TID-Before l UNT/ML 21:07: Meals, 0 [place] Injectable 00 Refill(s) Solution [Humalog] Loperamide 2019-11 Yes 2 mg = 1 Mem oria Hydrochlori 1-19 tab, PO, l de 2 MG 21:07: Q4H, PRN [place] n Oral Tablet 00 Loose [Imodium] Stools, # 60 tab, 0 Refill(s) Lactulose 2019-11 Yes 20 gm = 30 Me moria 667 MG/ML 1-19 mL, PO, l Oral 21:07: TID, PRN [place] Solution 00 constipati on, # 240 mL, 0 Refill(s) Loratadine 2019-11 Yes 10 mg = 1 Me moria 10 MG Oral 1-19 tab, PO, l Tablet 21:07: Daily, 0 [place] 00 Refill(s) Spiriva 2019-11 Yes 18 Memoria HandiHaler 1-19 microgram, l 21:07: INHALATION Oscar 00 , Daily, 0 Refill(s) Linagliptin 2019-11 Yes 5 mg = 1 Me moria 5 MG Oral 1-19 tab, PO, l Tablet 21:07: Daily, 0 Oscar [Tradjenta] 00 Refill(s) tramadol 2019-11 Yes 50 [...] 1-19 inhalation l mcg-50 mcg 20:49: , Oscar inhalation 00 INHALATION powder , BID, 0 Refill(s) Aspirin 81 2019-11 Yes 81 mg = 1 Me moria MG Enteric 1-19 tab, PO, l Coated 20:49: Daily, # [place] Tablet 00 90 tab, 3 Refill(s) benztropine 2019-11 Yes 1 mg = 1 Me moria 1 mg oral 1-19 tab, PO, l tablet 20:49: Daily, 0 [place] 00 Refill(s) busPIRone 5 2019-11 Yes 5 mg = 1 Me moria mg oral 1-19 tab, PO, l tablet 20:49: TID, 0 [place] 00 Refill(s) Divalproex 2019-11 Yes 250 mg [...] Source oxygen saturation, 2020-12-02 10:39:40 94 /min [facility] oximetry Health blood pressure, 2020-12-02 10:39:40 73 mm[Hg] [facility] diastolic Health blood pressure, 2020-12-02 10:39:40 105 mm[Hg] [facility] systolic Health pulse rate 2020-12-02 10:39:40 104 /min [facility] temperature E&M 2020-12-02 10:39:40 98.1 [degF] [facility] Health weight E&M 2020-12-02 10:39:40 209 [lb_av] [facility] weight in kilograms 2020-12-02 10:39:40 95 kg [facility] E&M Health height in 2020-12-02 10:39:40 157.48 [facility] centimeters E&M Health Systolic (mm Hg) 2020-10-16 20:44:00 Miguelito rial [place] Diastolic (mm Hg) 2020-10-16 20:44:00 [facility] Heart Rate 2020-10-16 20:44:00 [facility] Oscar Respitory Rate 2020-10-16 20:44:00 Memori al [facility] Height 2020-10-16 20:44:00 [facility] 2020-10-16 20:44:00 [facility] [place] BMI Calculated 2020-10-16 20:44:00 Memori al Oscar oxygen saturation, 2020-05-28 09:58:55 95 /min [facility] oximetry Health blood pressure, 2020-05-28 09:58:55 70 mm[Hg] [facility] diastolic Health blood pressure, 2020-05-28 09:58:55 125 mm[Hg] [facility] systolic Health pulse rate 2020-05-28 09:58:55 89 /min [facility] temperature E&M 2020-05-28 09:58:55 98.2 [degF] [facility] Health height in 2020-05-28 09:58:55 157.48 [facility] centimeters E&M Health oxygen saturation, 2020-02-07 10:26:43 90 /min [facility] oximetry Health blood pressure, 2020-02-07 10:26:43 71 mm[Hg] [facility] diastolic Health blood pressure, 2020-02-07 10:26:43 101 mm[Hg] [facility] systolic Health pulse rate 2020-02-07 10:26:43 112 /min [facility] temperature site 2020-02-07 10:26:43 oral [facility] Replaced by [facility] Health temperature E&M 2020-02-07 10:26:43 98.7 [degF] [facility] weight E&M 2020-02-07 10:26:43 193 [lb_av] [facility] weight in kilograms 2020-02-07 10:26:43 87.73 kg L [facility] E& Health height in 2020-02-07 10:26:43 157.48 cm [facility] centimeters E&M Health oxygen saturation, 2019-10-04 07:16:02 98 /min [facility] oximetry Health blood pressure, 2019-10-04 07:16:02 68 mm[Hg] [facility] diastolic Health blood pressure, 2019-10-04 07:16:02 103 mm[Hg] [facility] systolic Health pulse rate 2019-10-04 07:16:02 81 /min [facility] temperature E&M 2019-10-04 07:16:02 98.6 [degF] [facility] Health weight E&M 2019-10-04 07:16:02 169.60 [lb_av] [facility] Health weight in kilograms 2019-10-04 07:16:02 77.09 kg L [facility] E& Health temperature site 2019-10-04 07:16:02 oral [facility] Replaced by [facility] Health height in 2019-10-04 07:16:02 157.48 cm [facility] centimeters E&M Health oxygen saturation, 2019-06-07 09:23:42 89 /min [facility] pulse rate 2019-06-07 09:23:42 95 /min [facility] temperature site 2019-06-07 09:23:42 oral [place] Replaced by [facility] Health temperature E&M 2019-06-07 09:23:42 97.3 [degF] [facility] Health blood pressure, 2019-06-07 09:23:42 60 mm[Hg] [facility] diastolic Health blood pressure, 2019-06-07 09:23:42 92 mm[Hg] [facility] systolic Health weight E&M 2019-06-07 09:23:42 180 [lb_av] [facility] weight in kilograms 2019-06-07 09:23:42 81.82 kg L [facility] E& Health height in 2019-06-07 09:23:42 157.48 cm [facility] centimeters E&M Health blood pressure, 2019-02-08 07:52:46 80 mm[Hg] [facility] diastolic Health blood pressure, 2019-02-08 07:52:46 110 mm[Hg] [facility] systolic Health oxygen saturation, 2019-02-08 07:52:46 89 /min [facility] oximetry Health pulse rate 2019-02-08 07:52:46 126 /min [facility] temperature E&M 2019-02-08 07:52:46 98.6 [degF] [facility] Health weight E&M 2019-02-08 07:52:46 189.13 [lb_av] [facility] Health weight in kilograms 2019-02-08 07:52:46 85.97 kg L [facility] E& Health temperature site 2019-02-08 07:52:46 oral [facility] Health height in 2019-02-08 07:52:46 157.48 cm [facility] ommunity centimeters E&M Health oxygen saturation, 2018-09-26 07:50:53 98 /min [facility] respiratory rate E&M 2018-09-26 07:50:53 16 /min [facility] Health pulse rate 2018-09-26 07:50:53 78 /min [facility] Health temperature E&M 2018-09-26 07:50:53 98.2 [degF] [facility] Health blood pressure, 2018-09-26 07:50:53 73 mm[Hg] [facility] diastolic Health blood pressure, 2018-09-26 07:50:53 96 mm[Hg] [facility] systolic Health weight E&M 2018-09-26 07:50:53 188.25 [lb_av] [facility] Health weight in kilograms 2018-09-26 07:50:53 85.57 kg L [facility] E& Health temperature site 2018-09-26 07:50:53 oral [facility] height in 2018-09-26 07:50:53 157.48 cm [facility] centimeters E&M Health pulse rate 2018-02-21 08:03:52 120 /min [facility] blood pressure, 2018-02-21 08:03:52 79 mm[Hg] [facility] diastolic Health blood pressure, 2018-02-21 08:03:52 120 mm[Hg] [facility] systolic Health respiratory rate E&M 2018-02-21 08:03:52 20 /min [facility] Health oxygen saturation, 2018-02-21 08:03:52 99 /min [facility] oximetry Health temperature site 2018-02-21 08:03:52 tympanic [facility] Replaced by [facility] Health temperature E&M 2018-02-21 08:03:52 97.7 [degF] [facility] Health weight E&M 2018-02-21 08:03:52 177 [lb_av] [facility] weight in kilograms 2018-02-21 08:03:52 80.45 kg L [facility] E& Health height in 2018-02-21 08:03:52 157.48 cm [facility] centimeters E&M Health blood pressure, 2017-10-13 08:35:18 74 mm[Hg] [facility] diastolic Health blood pressure, 2017-10-13 08:35:18 105 mm[Hg] [facility] systolic Health pulse rate 2017-10-13 08:35:18 104 /min [facility] respiratory rate E&M 2017-10-13 08:35:18 16 /min [facility] Health oxygen saturation, 2017-10-13 08:35:18 96 /min [facility] oximetry Health temperature site 2017-10-13 08:35:18 tympanic [facility] Replaced by [facility] Health temperature E&M 2017-10-13 08:35:18 99 [degF] [facility] Health weight E&M 2017-10-13 08:35:18 175 [lb_av] [facility] weight in kilograms 2017-10-13 08:35:18 79.55 kg L [facility] E& Health height in 2017-10-13 08:35:18 157.48 cm [facility] centimeters E&M Health blood pressure, 2017-06-29 08:33:26 50 mm[Hg] [facility] diastolic Health blood pressure, 2017-06-29 08:33:26 86 mm[Hg] [facility] systolic Health pulse rate 2017-06-29 08:33:26 100 /min [facility] respiratory rate E&M 2017-06-29 08:33:26 24 /min [facility] Health oxygen saturation, 2017-06-29 08:33:26 97 /min [facility] temperature site 2017-06-29 08:33:26 tympanic [facility] Replaced by [facility] Health temperature E&M 2017-06-29 08:33:26 98.2 [degF] [facility] Health weight E&M 2017-06-29 08:33:26 169 [lb_av] [facility] weight in kilograms 2017-06-29 08:33:26 76.82 kg L [facility] E& Health height in 2017-06-29 08:33:26 157.48 cm [facility] centimeters E&M Health blood pressure, 2017-06-17 07:40:48 68 mm[Hg] [facility] diastolic Health blood pressure, 2017-06-17 07:40:48 97 mm[Hg] [facility] systolic Health pulse rate 2017-06-17 07:40:48 106 /min [facility] oxygen saturation, 2017-06-17 07:40:48 98 /min [facility] Health temperature E&M 2017-06-17 07:40:48 97.5 [degF] [facility] weight E&M 2017-06-17 07:40:48 170.13 [lb_av] [facility] 2017-06-17 07:40:48 77.33 kg L [facility] E& Health temperature site 2017-06-17 07:40:48 tympanic [facility] Replaced by [facility] Health height in 2017-06-17 07:40:48 157.48 cm [facility] centimeters E&M Health blood pressure, 2017-04-19 10:19:07 60 mm[Hg] [facility] diastolic Health blood pressure, 2017-04-19 10:19:07 108 mm[Hg] [facility] systolic Health pulse rate 2017-04-19 10:19:07 75 /min [facility] respiratory rate E&M 2017-04-19 10:19:07 24 /min [facility] 2017-04-19 10:19:07 tympanic [facility] Replaced by [facility] Health oxygen saturation, 2017-04-19 10:19:07 96 /min [facility] oximetry Health temperature E&M 2017-04-19 10:19:07 99.1 [degF] [facility] Health weight E&M 2017-04-19 10:19:07 172 [lb_av] [facility] weight in kilograms 2017-04-19 10:19:07 78.18 kg L [facility] E& Health height in 2017-04-19 10:19:07 157.48 cm [facility] om[facility] centimeters E&M Health blood pressure, 2016-11-02 08:40:55 79 mm[Hg] [facility] diastolic Health blood pressure, 2016-11-02 08:40:55 113 mm[Hg] [facility] systolic Health pulse rate 2016-11-02 08:40:55 101 /[facility] 2016-11-02 08:40:55 tympanic [place] Replaced by [facility] Health oxygen saturation, 2016-11-02 08:40:55 97 /min [facility] temperature E&M 2016-11-02 08:40:55 97.6 [degF] [facility] Health weight E&M 2016-11-02 08:40:55 180.60 [lb_av] [facility] Health weight in kilograms 2016-11-02 08:40:55 82.09 kg L [facility] E&M Health height in 2016-11-02 08:40:55 157.48 cm [facility] oxygen saturation, 2016-07-07 08:32:30 82 /min [facility] Health blood pressure, 2016-07-07 08:32:30 83 mm[Hg] [facility] diastolic Health blood pressure, 2016-07-07 08:32:30 119 mm[Hg] [facility] systolic Health pulse rate 2016-07-07 08:32:30 82 /min [facility] temperature site 2016-07-07 08:32:30 tympanic [facility] Replaced by [facility] Health temperature E&M 2016-07-07 08:32:30 96.4 [degF] [facility] weight E&M 2016-07-07 08:32:30 170.40 [lb_av] [facility] weight in kilograms 2016-07-07 08:32:30 77.45 kg L [facility] E& Health height in 2016-07-07 08:32:30 157.48 cm [facility] om[facility] centimeters E&M Health blood pressure, 2016-03-24 15:04:18 74 mm[Hg] [facility] diastolic Health blood pressure, 2016-03-24 15:04:18 107 mm[Hg] [facility] systolic Health pulse rate 2016-03-24 15:04:18 92 /min [facility] temperature site 2016-03-24 15:04:18 tympanic [facility] Replaced by [facility] Health oxygen saturation, 2016-03-24 15:04:18 94 /min [facility] oximetry Health temperature E&M 2016-03-24 15:04:18 97.2 [degF] [facility] Health weight E&M 2016-03-24 15:04:18 147.70 [lb_av] [facility] Health weight in kilograms 2016-03-24 15:04:18 67.14 kg L [facility] E& Health height in 2016-03-24 15:04:18 157.48 cm [facility] centimeters E&M Health pulse rate 2016-03-08 09:29:07 91 /min [facility] blood pressure, 2016-03-08 09:29:07 76 mm[Hg] [facility] diastolic Health blood pressure, 2016-03-08 09:29:07 112 mm[Hg] [facility] systolic Health oxygen saturation, 2016-03-08 09:29:07 94 /min [facility] oximetry Health temperature site 2016-03-08 09:29:07 tympanic [facility] Replaced by [facility] Health temperature E&M 2016-03-08 09:29:07 96.9 [degF] [facility] Health weight E&M 2016-03-08 09:29:07 137 [lb_av] [facility] weight in kilograms 2016-03-08 09:29:07 62.27 kg L [facility] E& Health height in 2016-03-08 09:29:07 157.48 cm [facility] centimeters E&M Health oxygen saturation, 2015-07-01 10:02:02 94 /min [facility] oximetry Health blood pressure, 2015-07-01 10:02:02 64 mm[Hg] [facility] diastolic Health blood pressure, 2015-07-01 10:02:02 89 mm[Hg] [facility] systolic Health pulse rate 2015-07-01 10:02:02 103 /min [facility] temperature site 2015-07-01 10:02:02 oral [facility] Health temperature E&M 2015-07-01 10:02:02 98.5 [degF] [facility] Health weight E&M 2015-07-01 10:02:02 127.40 [lb_av] [facility] weight in kilograms 2015-07-01 10:02:02 57.91 kg L [facility] E& Health height in 2015-07-01 10:02:02 157.48 cm [facility] centimeters E&M Health blood pressure, 2015-03-18 10:06:41 62 mm[Hg] [facility] diastolic Health blood pressure, 2015-03-18 10:06:41 86 mm[Hg] [facility] systolic Health temperature E&M 2015-03-18 10:06:41 98.8 [degF] [facility] Health height in 2015-03-18 10:06:41 157.48 cm [facility] centimeters E&M Health oxygen saturation, 2015-03-18 10:06:41 93 /min [facility] oximetry Health pulse rate 2015-03-18 10:06:41 111 /min [facility] Health weight E&M 2015-03-18 10:06:41 137 [lb_av] [facility] Health weight in kilograms 2015-03-18 10:06:41 62.27 kg L [facility] 2015-03-18 10:06:41 [facility] Procedures Procedure Date / Time Performing Clinician Source Performed Primary Care Medical 2016-03-08 10:18:09 [facility] Case Management [facility] Primary Care Service 2015-07-02 08:59:43 Zee Rodriguez [facility] - 2015-03-21 13:05:22 Zee Rodriguez Co mmunity Assesment-Brief - [facility] Primary Care Service 2015-03-21 13:05:22 Zee Rodriguez [facility] Venipuncture 2015-03-03 09:52:50 Elodia Cespedes [facility] Encounters Start End Encounter Admission Attending Care Care Encounter Source Date/Time Date/Time Type Type Clinicians Facility Department ID 2020-12-05 2020-12-05 Office VERO Corbin Encounte r/ [facility] 00:00:00 00:00:00 Visit Vasyl [id number] Com mychal [id number] Health 2020-12-03 2020-12-03 Office [facility]HELIA [facility] Encounter / [facility] 00:00:00 00:00:00 Visit Husam [id number] Com mychal [id number] Health 2020-12-02 2020-12-02 Office [facility]HELIA [facility] Encounter / [facility] 00:00:00 00:00:00 Visit Husam [id number] Com mychal [id number] Health 2020-12-02 2020-12-02 Office Husam Vital [facility] Enco unter/ [facility] 00:00:00 00:00:00 Visit Nkechi [place] [id number] Communi [id number] [facility] 2020-11-18 2020-11-18 Office Husam Vital OPHELIA Enco unter/ [facility] 00:00:00 00:00:00 Visit Gavi mE [id number] 11 Communi [id number] Health 2020-11-18 2020-11-18 Office OPHELIA Vital OPHELIA Encounter / [facility] 00:00:00 00:00:00 Visit Husam [id number] Com mychal [id number] Health 2020-10-16 2020-10-16 Outpatient WILTON Saldaña[facility]EM[facility] [id number] 14:30:00 23:59:59 French 00 Clarence 2020-09-24 2020-09-24 Office Desktop, [facility] Care Coordination OPHELIA LC Encounter/ [facility] 00:00:00 00:00:00 Visit Oconnor, Marlee [id number] Nadeen Lowry [id number] [id number] ty Health 2020-07-01 2020-07-01 Office Ritchie JACINTO Encounte r/ [facility] 00:00:00 00:00:00 Visit Teresa [id number] Com mychal Tai [id number] ty Health 2020-06-16 2020-06-16 Office VERO Mcnamara Encounter/ [facility] 00:00:00 00:00:00 Visit Clarence [id number] Com mychal [id number] ty Health 2020-05-28 2020-05-28 Office VERO Vital Encounter / [facility] 00:00:00 00:00:00 Visit Husam [id number] Com mychal [id number] ty Health 2020-05-28 2020-05-28 Office Husam Vital Enco unter/ [facility] 00:00:00 00:00:00 Visit Nkechi [place] [id number] Communi [id number] ty Health 2020-05-28 2020-05-28 Office VERO Vital Encounter / [facility] 00:00:00 00:00:00 Visit Husam [id number] Com mychal [id number] ty Health 2020-02-07 2020-02-07 Office VERO Vital Encounter / [facility] 00:00:00 00:00:00 Visit Husam [id number] Com mychal [id number] ty Health 2020-02-07 2020-02-07 Office Husam Vital Enco unter/ [facility] 00:00:00 00:00:00 Visit Tai Britt [id number] Communi 729549 ty Health 2020-02-07 2020-02-07 Office VERO Vital Encounter / Legacy 00:00:00 00:00:00 Visit Husam [id number] Com mychal 920983 ty Health 2020-02-07 2020-02-07 Office Zahraa VERO JACINTO Encounter / Legacy 00:00:00 00:00:00 Visit Husam [id number] Com mychal 340318 ty Health 2019-10-10 2019-10-10 Office NanVERO Encounter/ Legacy 00:00:00 00:00:00 Visit Nkechi [id number] Com mychal 544764 ty Health 2019-10-04 2019-10-04 Office ZahraaVERO Encounter / Legacy 00:00:00 00:00:00 Visit Husam [id number] Com mychal 357091 ty Health 2019-10-04 2019-10-04 Office Husam Vital Enco unter/ Legacy 00:00:00 00:00:00 Visit [place] [id number] 4835 Communi 453810 ty Health 2019-10-04 2019-10-04 Office VERO Vital Encounter / Legacy 00:00:00 00:00:00 Visit Husam [id number] Com mychal 534203 ty Health 2019-10-04 2019-10-04 Office ZahraaVERO Encounter / Legacy 00:00:00 00:00:00 Visit Husam [id number] Com mychal 774634 ty Health 2019-10-04 2019-10-04 Office ZahraaHusam Enco unter/ Legacy 00:00:00 00:00:00 Visit Nkechi [place] [id number] 8676 Communi Tai Britt 341537 ty Health 2019-10-02 2019-10-02 Office OconnorVERO Encount er/ Legacy 00:00:00 00:00:00 Visit Marlee [id number] Com mychal 985647 ty Health 2019-06-07 2019-06-07 Office VERO Vital Encounter / Legacy 00:00:00 00:00:00 Visit Husam [id number] Com mychal 351825 ty Health 2019-06-07 2019-06-07 Office VERO Vital Encounter / Legacy 00:00:00 00:00:00 Visit Husam [id number] Com mychal 854494 ty Health 2019-06-07 2019-06-07 Office VERO Vtial Encounter / Legacy 00:00:00 00:00:00 Visit Husam [id number] Com mychal 364801 ty Health 2019-06-07 2019-06-07 Office OPHELIA Garcia OPHELIA Encounte r/ Legacy 00:00:00 00:00:00 Visit Palmer [id number] Com mychal 676869 ty Health 2019-06-07 2019-06-07 Office OPHELIA Vital OPHELIA Encounter / Legacy 00:00:00 00:00:00 Visit Husam [id number] Com mychal 494634 ty Health 2019-06-07 2019-06-07 Office Husam Vital [facility] Enco unter/ Legacy 00:00:00 00:00:00 Visit Nkechi [place] [id number] Communi [id number] Health 2019-06-06 2019-06-06 Office OPHELIA [place] Encounter/ Legacy 00:00:00 00:00:00 Visit Meka [id number] Com mychal [id number] [facility] 2019-04-19 2019-04-19 Office Status, Fax [facility] Encoun ter/ Legacy 00:00:00 00:00:00 Visit [id number] Com mychal 557888 Health 2019-02-22 2019-02-22 [facility] [address] 14:00:00 14:00:00 [facility] 2019-02-08 2019-02-08 Office VERO Vital Encounter / Legacy 00:00:00 00:00:00 Visit Husam [id number] Com mychal 184201 ty Health 2019-02-08 2019-02-08 Office Husam VitalCOX MONETT Enco unter/ Legacy 00:00:00 00:00:00 Visit Valentine Lucas [id number] Communi 025976 Health 2019-02-08 2019-02-08 Office VERO Vital Encounter / Legacy 00:00:00 00:00:00 Visit Husam [id number] Com mychal 484685 ty Health 2019-02-08 2019-02-08 Office Nemandrew, OPHELIA OPHELIA Encounter / Legacy 00:00:00 00:00:00 Visit Husam [id number] Com mychal 154561 ty Health 2019-02-08 2019-02-08 Office Zahraa, OPHELIA OPHELIA Encounter / Legacy 00:00:00 00:00:00 Visit Husam [id number] Com mychal 756508 ty Health 2019-02-08 2019-02-08 Office Zahraa, OPHELIA OPHELIA Encounter / Legacy 00:00:00 00:00:00 Visit Husam [id number] Com mychal 126202 ty Health 2019-02-05 2019-02-05 Office Oconnor, OPHELIA OPHELIA Encount er/ Legacy 00:00:00 00:00:00 Visit Marlee [id number] Com mychal 067377 ty Health 2019-02-02 2019-02-02 Office OconnorVERO vergara Encount er/ Legacy 00:00:00 00:00:00 Visit Marlee [id number] Com mychal 724049 ty Health 2018-12-29 2018-12-29 Office Oconnor, [facility] Encount er/ Legacy 00:00:00 00:00:00 Visit Marlee [id number] Com mychal 708896 ty Health 2018-12-25 2018-12-25 Office OconnorMarlee vergara Encounter/ Legacy 00:00:00 00:00:00 Visit Phi Pearce [id number] Communi 047546 ty Health 2018-12-25 2018-12-25 Office AntonioOPHELIA hopkins OPHELIA Encounter / Legacy 00:00:00 00:00:00 Visit Husam [id number] Com mychal 203277 ty Health 2018-12-22 2018-12-22 Office VERO Oconnor Encount er/ Legacy 00:00:00 00:00:00 Visit Marlee [id number] Com mychal 082601 ty Health 2018-09-28 2018-09-28 Office EstrellaOPHELIA morales OPHELIA Encounter / Legacy 00:00:00 00:00:00 Visit Husam [id number] Com mychal 051935 ty Health 2018-09-28 2018-09-28 Office Status, Fax OPHELIA OPHELIAH Encoun ter/ Legacy 00:00:00 00:00:00 Visit [id number] Com mychal 194997 ty Health 2018-09-26 2018-09-26 Office Nemandrew, VERO PHAM Encounter / Legacy 00:00:00 00:00:00 Visit Husam [id number] Com mychal 506626 ty Health 2018-09-26 2018-09-26 Office Nemandrew, VERO JACINTO Encounter / Legacy 00:00:00 00:00:00 Visit Husam [id number] Com mychal 572194 ty Health 2018-09-26 2018-09-26 Office Nemandrew, VERO JACINTO Encounter / Legacy 00:00:00 00:00:00 Visit Husam [id number] Com mychal 798775 ty Health 2018-09-26 2018-09-26 Office Nemandrew, VERO JACINTO Encounter / Legacy 00:00:00 00:00:00 Visit Husam [id number] Com mychal 448435 ty Health 2018-09-26 2018-09-26 Office NemHusam morales OPHELIA OPHELIA Enco unter/ Legacy 00:00:00 00:00:00 Visit Sisi Obrien [id number] 2963 Communi 477911 ty Health 2018-09-25 2018-09-25 Office Nemandrew, VERO JACINTO Encounter / Legacy 00:00:00 00:00:00 Visit Husam [id number] Com mychal 133865 ty Health 2018-09-23 2018-09-23 Office VERO Oconnor Encount er/ Legacy 00:00:00 00:00:00 Visit Marlee [id number] Com mychal 700639 ty Health 2018-09-07 2018-09-07 Office Marlee Oconnor Encounter/ Legacy 00:00:00 00:00:00 Visit Luci Ríos [id number] 5634 Communi 721006 ty Health 2018-05-05 2018-05-05 Office VERO Rosas Encoun ter/ Legacy 00:00:00 00:00:00 Visit Marcelle [id number] Com mychal 235958 ty Health 2018-02-21 2018-02-21 Office Status, Fax OPHELIA OPHELIA Encoun ter/ Legacy 00:00:00 00:00:00 Visit [id number] Com mychal 463601 ty Health 2018-02-21 2018-02-21 Office Status, Fax OPHELIA OPHELIA Encoun ter/ Legacy 00:00:00 00:00:00 Visit [id number] Com mychal 711292 ty Health 2018-02-21 2018-02-21 Office Status, Fax [facility] OPHELIA Encoun ter/ Legacy 00:00:00 00:00:00 Visit [id number] Com mychal 421062 ty Health 2018-02-21 2018-02-21 Office VERO Vital Encounter / Legacy 00:00:00 00:00:00 Visit Husam [id number] Com mychal 876193 [facility] 2018-02-21 2018-02-21 Office VERO Vital Encounter / Legacy 00:00:00 00:00:00 Visit Husam [id number] Com mychal 095207 [facility] 2018-02-21 2018-02-21 Office Husam Vital Enco unter/ Legacy 00:00:00 00:00:00 Visit Nkechi [place] [id number] 1898 Ema Gupta 12588 0 ty [facility] 2018-02-14 2018-02-14 Office Kai-Ronda JACINTO LC Encoun ter/ Legacy 00:00:00 00:00:00 Visit jaron [id number] Com mychal Choice 171294 Health 2018-02-08 2018-02-08 Office OPHELIA Rosas OPHELIA Encoun ter/ Legacy 00:00:00 00:00:00 Visit Marcelle [id number] Com mychal 337806 ty Health 2018-02-07 2018-02-07 Office VERO Vital Encounter / Legacy 00:00:00 00:00:00 Visit Husam [id number] Com mychal 507772 ty Health 2018-02-07 2018-02-07 Office Husam Vital Enco unter/ Legacy 00:00:00 00:00:00 Visit Leigha Dumont [id number] Communi 169041 ty Health 2018-01-25 2018-01-25 Office VERO Hugo Encounter/ Legacy 00:00:00 00:00:00 Visit Verito [id number] C ommuni 965093 ty Health 2018-01-25 2018-01-25 Office VERO Zarate Encounte r/ Legacy 00:00:00 00:00:00 Visit Vanessa [id number] Com mychal 785058 ty Health 2018-01-17 2018-01-17 Office VERO Vital Encounter / Legacy 00:00:00 00:00:00 Visit Husam [id number] Com mychal 667579 ty Health 2018-01-17 2018-01-17 Office Jose Lui En counter/ Legacy 00:00:00 00:00:00 Visit Marcelle Rosas [id number] Communi 185536 ty Health 2017-10-26 2017-10-26 Office VERO Rosas Encoun ter/ Legacy 00:00:00 00:00:00 Visit Marcelle [id number] Com mychal 863928 ty Health 2017-10-25 2017-10-25 Office VERO Rosas Encoun ter/ Legacy 00:00:00 00:00:00 Visit Marcelle [id number] Com mychal 751110 ty Health 2017-10-24 2017-10-24 Office VERO Cameron Encounter / Legacy 00:00:00 00:00:00 Visit Angeles [id number] Com mychal 826142 ty Health 2017-10-13 2017-10-13 Office VERO Vital Encounter / Legacy 00:00:00 00:00:00 Visit Husam [id number] Com mychal 039054 ty Health 2017-10-13 2017-10-13 Office VERO Hugo Encounter/ Legacy 00:00:00 00:00:00 Visit Luann [id number] Co mmuni 860092 ty Health 2017-10-13 2017-10-13 Office VERO Vital Encounter / Legacy 00:00:00 00:00:00 Visit Husam [id number] Com mychal 387002 ty Health 2017-10-13 2017-10-13 Office NemOPHELIA morales LC Encounter / Legacy 00:00:00 00:00:00 Visit Husam [id number] Com mychal 683680 ty Health 2017-10-13 2017-10-13 Office Husam Vital Enco unter/ Legacy 00:00:00 00:00:00 Visit Nkechi [place] [id number] 7819 [facility] [place] Cameron 930470 ty [facility] 2017-10-12 2017-10-12 [facility] Legacy 00:00:00 00:00:00 Visit jaron [id number] Com mychal Choice 375999 Health 2017-07-05 2017-07-05 Office Husam Vital OPHELIA Enco unter/ Legacy 00:00:00 00:00:00 Visit Ema Pillai [id number] [facility] [place] Cameron [id number] [facility] RaymundoAmanda 2017-06-29 2017-06-29 Office Zahraa, Husam [facility] Enco unter/ Legacy 00:00:00 00:00:00 Visit Molly Velazco [id number] Communi 771499 [facility] 2017-06-29 2017-06-29 Office OPHELIA Vital OPHELIA Encounter / Legacy 00:00:00 00:00:00 Visit Husam [id number] Com mychal 503698 Health 2017-06-29 2017-06-29 Office NemVERO morales Encounter / Legacy 00:00:00 00:00:00 Visit Husam [id number] Com mychal 465649 ty Health 2017-06-29 2017-06-29 Office Husam VitalCOX MONETT Enco unter/ Legacy 00:00:00 00:00:00 Visit Nkechi [place] [id number] 2929 Communi 467134 ty Health 2017-06-28 2017-06-28 [facility] Legacy 00:00:00 00:00:00 Visit jaron [id number] Com mychal Choice 508482 ty Health 2017-06-20 2017-06-20 Office VERO Vital Encounter / Legacy 00:00:00 00:00:00 Visit Husam [id number] Com mychal 800475 ty Health 2017-06-17 2017-06-17 Office VERO Vital Encounter / Legacy 00:00:00 00:00:00 Visit Husam [id number] Com mychal 239452 ty Health 2017-06-17 2017-06-17 Office VERO Vital Encounter / Legacy 00:00:00 00:00:00 Visit Husam [id number] Com mychal 133979 ty Health 2017-06-17 2017-06-17 Office Husam Vital OPHELIA Enco unter/ Legacy 00:00:00 00:00:00 Visit Iesha Lucas [id number] Communi 262977 ty Health 2017-06-14 2017-06-14 Office [facility] OPHELIACOX MONETT Encoun ter/ Legacy 00:00:00 00:00:00 Visit jaron [id number] Com mychal Choice 915390 ty Health 2017-06-09 2017-06-09 Office RosasOPHELIA Tesfaye OPHELIA Encoun ter/ Legacy 00:00:00 00:00:00 Visit Marcelle [id number] Com mychal 127588 ty Health 2017-06-08 2017-06-08 Office RosasOPHELIA Tesfaye OPHELIA Encoun ter/ Legacy 00:00:00 00:00:00 Visit Marcelle [id number] Com mychal 672205 ty Health 2017-05-30 2017-05-30 Office Ashutosh JACINTO Encounter/ Legacy 00:00:00 00:00:00 Visit Kyra [id number] Co obed Morocho 586354 ty Health 2017-05-30 2017-05-30 Office Ashutosh JACINTO Encounter/ Legacy 00:00:00 00:00:00 Visit Kyra [id number] Co obed Morocho 260816 ty Health 2017-05-27 2017-05-27 Office VERO Vital Encounter / Legacy 00:00:00 00:00:00 Visit Husam [id number] Com mychal 842571 ty Health 2017-05-26 2017-05-26 Office Marcelle RosasH Encounter/ Legacy 00:00:00 00:00:00 Visit Beau Rodriguez [id number] [facility] 666636 [facility] 2017-05-25 2017-05-25 Office VERO Vital Encounter / Legacy 00:00:00 00:00:00 Visit Husam [id number] Com mychal 314247 Health 2017-05-25 2017-05-25 Office VERO Vital Encounter / Legacy 00:00:00 00:00:00 Visit Husam [id number] Com mychal 406952 Health 2017-05-25 2017-05-25 Office VERO Rosas Encoun ter/ Legacy 00:00:00 00:00:00 Visit Marcelle [id number] Com mychal 408737 [facility] 2017-05-24 2017-05-24 Office Shaye Boyd [facility] Enco unter/ Legacy 00:00:00 00:00:00 Visit Polina Neal [id number] [address] [place], [place] [address]Charisma Berger [id number] Beau Rodriguez [facility] 2017-05-18 2017-05-18 Office Ashutosh JACINTOH Encounter/ Legacy 00:00:00 00:00:00 Visit Kyra [id number] Co obed Morocho [id number] [facility] 2017-05-13 2017-05-13 Office Husam VitalH Enco unter/ Legacy 00:00:00 00:00:00 Visit Zee Rodriguez [id number] Cara Ray [id number] [facility] 2017-04-22 2017-04-22 Office Bailee CruzH Encounter/ Legacy 00:00:00 00:00:00 Visit Baltazar Davison [id number] 4410 [facility] 411443 Health 2017-04-22 2017-04-22 Office VERO Davison Encounter / Legacy 00:00:00 00:00:00 Visit Baltazar [id number] Com mychal 984973 Health 2017-04-19 2017-04-19 Office VERO Vital Encounter / Legacy 00:00:00 00:00:00 Visit Husam [id number] Com mychal 109841 ty Health 2017-04-19 2017-04-19 Office VERO Vital OPHELIAFransisca Encounter / Legacy 00:00:00 00:00:00 Visit Husam [id number] Com mychal 219274 ty Health 2017-04-19 2017-04-19 Office Husam Vital OPHELIAFransisca Enco unter/ Legacy 00:00:00 00:00:00 Visit Nkechi [place] [id number] 7796 Communi 717215 ty Health 2017-04-18 2017-04-18 Office Kori PHAM [facility] Encoun ter/ Legacy 00:00:00 00:00:00 Visit jaron [id number] Com mychal Choice 445869 ty Health 2017-03-11 2017-03-11 Office Husam Vital OPHELIAFransisca Enco unter/ Legacy 00:00:00 00:00:00 Visit Polina Neal [id number] Communi 305982 ty Health 2017-03-01 2017-03-01 Office VERO Vital LCFransisca Encounter / Legacy 00:00:00 00:00:00 Visit Husam [id number] Com mychal 303201 ty Health 2017-02-17 2017-02-17 Office VERO Valladares LCFransisca Encounter/ Legacy 00:00:00 00:00:00 Visit Malu [id number] C ommuni 304332 ty Health 2016-12-09 2016-12-09 Office VERO Valladares LCFransisca Encounter/ Legacy 00:00:00 00:00:00 Visit Malu [id number] C ommuni 923954 ty Health 2016-11-02 2016-11-02 Office VERO Vital LCFransisca Encounter / Legacy 00:00:00 00:00:00 Visit Husam [id number] Com mychal 337376 ty Health 2016-11-02 2016-11-02 Office Zahraa OPHELIAFransisca OPHELIA Encounter / Legacy 00:00:00 00:00:00 Visit Husam [id number] Com mychal 689120 ty Health 2016-11-02 2016-11-02 Office Husam Vital OPHELIAFransisca Enco unter/ Legacy 00:00:00 00:00:00 Visit Esdras [place] [id number] 8856 Communi 357066 ty Health 2016-10-19 2016-10-19 Office OPHELIA Vital OPHELIA Encounter / Legacy 00:00:00 00:00:00 Visit Husam [id number] Com mychal 512933 ty Health 2016-10-19 2016-10-19 Office VERO Vital OPHELIA Encounter / Legacy 00:00:00 00:00:00 Visit Husam [id number] Com mychal 502160 ty Health 2016-09-21 2016-09-21 Office Tera OPHELIACOX MONETT Encount er/ Legacy 00:00:00 00:00:00 Visit Tara [id number] Com mychal 555104 ty Health 2016-08-31 2016-08-31 Office Blaine OPHELIA OPHELIA Encounter/ Legacy 00:00:00 00:00:00 Visit Malu [id number] Marjorie ommuni [id number] Health 2016-07-09 2016-07-09 Office Status, Fax [facility] Encoun ter/ Legacy 00:00:00 00:00:00 Visit [id number] Com mychal 319177 ty Health 2016-07-09 2016-07-09 Office Status, Fax [facility] Encoun ter/ Legacy 00:00:00 00:00:00 Visit [id number] Com mychal 316462 ty Health 2016-07-07 2016-07-07 Office VERO Vital OPHELIA Encounter / Legacy 00:00:00 00:00:00 Visit Husam [id number] Com mychal 619444 ty Health 2016-07-07 2016-07-07 Office OPHELIA VitalCOX MONETT Encounter / Legacy 00:00:00 00:00:00 Visit Husam [id number] Com mychal 866160 ty Health 2016-07-07 2016-07-07 Office Nemandrew, OPHELIACOX MONETT Encounter / Legacy 00:00:00 00:00:00 Visit Husam [id number] Com mychal 040532 ty Health 2016-07-07 2016-07-07 Office Zahraa Husam OPHELIA OPHELIA Enco unter/ Legacy 00:00:00 00:00:00 Visit Nkechi [place] [id number] 8887 Communi Molly Velazco 587217 ty Health 2016-07-01 2016-07-01 Office PerdomoVERO ashby [facility] Encounter/ Legacy 00:00:00 00:00:00 Visit Remy [id number] Com mychal 452174 ty Health 2016-06-28 2016-06-28 Office Yoel VERO [facility] Encounter / Legacy 00:00:00 00:00:00 Visit Chiara [id number] Com mychal 079632 ty Health 2016-03-24 2016-03-24 Office Zahraa, VERO [facility] Encounter / Legacy 00:00:00 00:00:00 Visit Husam [id number] Com mychal 406458 ty Health 2016-03-24 2016-03-24 Office EstrellaVERO morales [facility] Encounter / Legacy 00:00:00 00:00:00 Visit Husam [id number] Com mychal 649359 ty Health 2016-03-24 2016-03-24 Office Husam Vtial Enco unter/ Legacy 00:00:00 00:00:00 Visit Nkechi [place] 772113 8742 Communi 220506 ty Health 2016-03-24 2016-03-24 Office AntonioVERO hopkins [facility] Encounter / Legacy 00:00:00 00:00:00 Visit Husam [id number] Com mychal 161696 ty Health 2016-03-08 2016-03-08 Office MarileeVERO [facility] Encounter / Legacy 00:00:00 00:00:00 Visit Dilma [id number] Com mychal 257160 ty Health 2016-03-08 2016-03-08 Office VERO Perdomo [facility] Encounter/ Legacy 00:00:00 00:00:00 Visit Remy [id number] Com mychal 277870 ty Health 2016-03-08 2016-03-08 Office Remy Perdomo Encou nter/ Legacy 00:00:00 00:00:00 Visit Jo Valle [id number] Communi 364021 ty Health 2016-02-26 2016-02-26 Office VERO Perdomo [facility] Encounter/ Legacy 00:00:00 00:00:00 Visit Remy [id number] Com mychal 397410 ty Health 2016-01-27 2016-01-27 Office Nemandrew, VERO [facility] Encounter / Legacy 00:00:00 00:00:00 Visit Husam [id number] Com mychal 833730 ty Health 2016-01-22 2016-01-22 Office Yoel, VERO [facility] Encounter / Legacy 00:00:00 00:00:00 Visit Chiara [id number] Com mychal 004474 ty Health 2015-12-02 2015-12-02 Office Nan, LCH [facility] Encounter/ Legacy 00:00:00 00:00:00 Visit Nkechi [id number] Com mychal 468476 ty Health 2015-10-27 2015-10-27 Office Yoel, LC [facility] Encounter / Legacy 00:00:00 00:00:00 Visit Chiara [id number] Com mychal 977191 ty Health 2015-09-05 2015-09-05 Office Zahraa, OPHELIA [facility] Encounter / Legacy 00:00:00 00:00:00 Visit Husam [id number] Com mychal 312904 ty Health 2015-09-05 2015-09-05 Office Nemandrew, OPHELIA [facility] Encounter / Legacy 00:00:00 00:00:00 Visit Husam [id number] Com mychal 717322 ty Health 2015-09-03 2015-09-03 Office Zahraa, LC [facility] Encounter / Legacy 00:00:00 00:00:00 Visit Husam [id number] Com mychal 273044 ty Health 2015-07-14 2015-07-14 Office Nemandrew, OPHELIAH [facility] Encounter / Legacy 00:00:00 00:00:00 Visit Husam [id number] Com mychal 008297 ty Health 2015-07-02 2015-07-02 Office Gentry, LCH [facility] Encounter/ Legacy 00:00:00 00:00:00 Visit Odin [id number] Com mychal 281656 ty Health 2015-07-02 2015-07-02 Office Michael, L[facility] Encounter / Legacy 00:00:00 00:00:00 Visit Zee [id number] C ommuni 400561 ty Health 2015-07-01 2015-07-01 Office [place], LCH [facility] Encounter / Legacy 00:00:00 00:00:00 Visit Zee [id number] C ommuni 837524 ty Health 2015-07-01 2015-07-01 Office AntonioVERO hopkins Encounter / Legacy 00:00:00 00:00:00 Visit Husam [id number] Com mychal 851218 ty Health 2015-07-01 2015-07-01 Office Husam Vital OPHELIA Enco unter/ Legacy 00:00:00 00:00:00 Visit Nkechi [place] 799067 5628 Communi 822837 ty Health 2015-06-17 2015-06-17 Office AntonioOPHELIA hopkins OPHELIA Encounter / Legacy 00:00:00 00:00:00 Visit Husam [id number] Com mychal 217220 ty Health 2015-06-17 2015-06-17 Office EstrellaVERO morales Encounter / Legacy 00:00:00 00:00:00 Visit Husam [id number] Com mychal 371383 ty Health 2015-06-17 2015-06-17 Office EstrellaVERO morales Encounter / Legacy 00:00:00 00:00:00 Visit Husam [id number] Com mychal 394135 ty Health 2015-06-17 2015-06-17 Office VERO Vital Encounter / Legacy 00:00:00 00:00:00 Visit Husam [id number] Com mychal 210857 ty Health 2015-03-18 2015-03-18 Office AntonioVERO hopkins Encounter / Legacy 00:00:00 00:00:00 Visit Husam [id number] Com mychal 368583 ty Health 2015-03-18 2015-03-18 Office MichaelVERO Encounter / Legacy 00:00:00 00:00:00 Visit Zee [id number] C ommuni 021255 ty Health 2015-03-18 2015-03-18 Office VERO Rodriguez Encounter / Legacy 00:00:00 00:00:00 Visit Zee [id number] C ommuni 175827 ty Health 2015-03-18 2015-03-18 Office NemVERO morales Encounter / Legacy 00:00:00 00:00:00 Visit Husam [id number] Com mychal 580126 ty Health 2015-03-18 2015-03-18 Office Husam Vital OPHELIA Enco unter/ Legacy 00:00:00 00:00:00 Visit Lexy Ward [id number] 4539 Maikol Lucas Valentine 184234 ty Health 2015-03-17 2015-03-17 Office VERO Vital Encounter / Legacy 00:00:00 00:00:00 Visit Husam [id number] Com mychal 317706 ty Health 2015-03-17 2015-03-17 Office SparksVERO Encounter/ Legacy 00:00:00 00:00:00 Visit Sammie [id number] Co mmuni 331051 ty Health 2015-03-15 2015-03-15 Office VERO Sparks Encounter/ Legacy 00:00:00 00:00:00 Visit Sammie [id number] Co mmuni 717487 ty Health 2015-03-13 2015-03-13 Office Lisa JACINTO OPHELIA Encoun ter/ Legacy 00:00:00 00:00:00 Visit Deidra ramon [id number] Co mmuni 333378 ty Health 2015-03-03 2015-03-03 Office VERO Cespedes Encounter/ Legacy 00:00:00 00:00:00 Visit Elodia [id number] Com mychal 698617 ty Health 2015-03-03 2015-03-03 Office VERO Cespedes Encounter/ Legacy 00:00:00 00:00:00 Visit Elodia [id number] Com mcyhal 250960 ty Health 2015-03-03 2015-03-03 Office OPHELIA Cespedes OPHELIA Encounter/ Legacy 00:00:00 00:00:00 Visit Elodia [id number] Com mychal 296699 ty Health 2015-03-03 2015-03-03 Office Elodia Cespedes OPHELIA Enc ounter/ Legacy 00:00:00 00:00:00 Visit Atif Harris [id number] Communi 520616 ty Health 2015-03-03 2015-03-03 Office VERO Vital Encounter / Legacy 00:00:00 00:00:00 Visit Husam [id number] [facility] 997701 ty Health Results Test Description Test Time Test Comments Results Result Comments Source rapid plasma reagin antibody, serum 2020-11-18 10:28:00 Test Item Value Reference Range Interpretation Comme nts rapid plasma reagin antibody, serum (test code = Non Reactive Non R eactive 5291-0) [facility], serum, by PCR, [id number] 10:28:00 Test Item Value Reference Range Interpretation Comments HIV-1RNA, serum, by PCR, <20 copies/mL quantitative (test code = 29963) [facility], [id number] 10:28:00 Test Item Value Reference Range Interpretation Comments LDL cholesterol, serum (test code = 115 mg/dL 0-99 H 2088-11) [facility] low density [id number] 10:28:00 Test Item Value Reference Range Interpretation Comments very low density lipoproteins (test 58 mg/dL 5-40 H code = 2090-7) [facility] cholesterol, [id number] 10:28:00 Test Item Value Reference Range Interpretation Comments HDL cholesterol, serum (test code = 32 mg/dL >39 L 2085-07) [facility], serum, [id number] 10:28:00 Test Item Value Reference Range Interpretation Comments triglyceride, serum, fasting (test 331 mg/dL 0-149 H code = 2571-8) [facility]cholesterol, [id number] 10:28:00 Test Item Value Reference Range Interpretation Comments cholesterol, serum (test code = 205 mg/dL 100-199 H 2092-3) [facility]alanine aminotransferase (SGPT), [id number] 10:28:00 Test Item Value Reference Range Interpretation Comments alanine aminotransferase (SGPT), serum 15 1/L 0-32 (test code = 1742-6) Count [facility] Hospitalaspartate aminotransferase (SGOT), [id number] 10:28:00 Test Item Value Reference Range Interpretation Comments aspartate aminotransferase (SGOT), 14 1/L 0-40 serum (test code = 1920-8) Count [facility] Hospitalalkaline phosphatase, [id number] 10:28:00 Test Item Value Reference Range Interpretation Comments alkaline phosphatase, serum (test code 93 1/L 39-117 = 1783-0) [facility] Healthbilirubin, serum, [id number] 10:28:00 Test Item Value Reference Range Interpretation Comments bilirubin, serum, total (test code <0.2 mg/dL 0.0-1.2 = 1975-2) [facility] Healthalbumin/globulin ratio, [id number] 10:28:00 Test Item Value Reference Range Interpretation Comments albumin/globulin ratio, serum (test 1.4 1.2-2.2 code = 1759-0) [facility] Healthglobulin, [id number] 10:28:00 Test Item Value Reference Range Interpretation Comments globulin, serum (test code = 2336-6) 2.8 1.5-4.5 [facility] Healthalbumin, [id number] 10:28:00 Test Item Value Reference Range Interpretation Comments albumin, serum (test code = 1751-7) 4.0 g/dL 3.8-4.9 [facility] Healthprotein, total, [id number] 10:28:00 Test Item Value Reference Range Interpretation Comments protein, total, serum (test code = 6.8 g/dL 6.0-8.5 2885-2) [facility] [id number] 10:28:00 Test Item Value Reference Range Interpretation Comments calcium, serum (test code = 1999-8) 9.2 mg/dL 8.7-10.3 [facility] Hospitalcarbon dioxide, venous [id number] 10:28:00 Test Item Value Reference Range Interpretation Comments carbon dioxide, venous blood (test 27 mmol/L -29 code = 7-1) [facility] Healthchloride, [id number] 10:28:00 Test Item Value Reference Range Interpretation Comments chloride, serum (test code = 97 mmol/L 96-106 5-0) [facility] Hospitalpotassium, [id number] 10:28:00 Test Item Value Reference Range Interpretation Comments potassium, serum (test code = 4.1 mmol/L 3.5-5.2 2823-3) [facility] Hospitalsodium, xpcaz4940-93-93 10:28:00 Test Item Value Reference Range Interpretation Comments sodium, serum (test code = 2951-2) 139 mmol/L 134-144 Count [facility] Hospitalurea nitrogen/creatinine ratio, [id number] 10:28:00 Test Item Value Reference Range Interpretation Comments urea nitrogen/creatinine ratio, serum 11-24 (test code = 3097-3) [facility] HealtheGFR if Hgsonudb0915-61-10 10:28:00 Test Item Value Reference Range Interpretation Comments eGFR if 102 >59 (test code = 75947-1) mL/min/((173/100).m2) Count [facility] HospitalEstimated Glomerular Filtration Rate (calc)2020-11-18 10:28:00 Test Item Value Reference Range Interpretation Comments Estimated Glomerular 88 >59 Filtration Rate (calc) mL/min/((173/100).m2 (test code = 21244-7) ) [facility] Hospitalcreatinine, [id number] 10:28:00 Test Item Value Reference Range Interpretation Comments creatinine, serum (test code = 0.74 mg/dL 0.57-1.00 2160-0) [facility] Hospitalurea nitrogen, [id number] 10:28:00 Test Item Value Reference Range Interpretation Comments urea nitrogen, blood (test code = 11 mg/dL 07-24 3094-0) [facility] Hospitalblood glucose, mikyxq3658-06-63 10:28:00 Test Item Value Reference Range Interpretation Comments blood glucose, random (test code = 178 mg/dL 65-99 H 2339-0) Count [facility]cludes [facility] Hospitalimmature granulocytes, percentage of total cells, blood 2020-11-18 10:28:00 Test Item Value Reference Range Interpretation Comments immature granulocytes, percentage of 1 % total cells, blood (test code = 09778-8) [facility] Hospitalbasophil count, mynpcsyk0138-71-33 10:28:00 Test Item Value Reference Range Interpretation Comments basophil count, absolute (test 0.0 x10E3/uL 0.0-0.2 code = 80736-1) Count [facility] HospitalEosinophil Absolute Vgzun1328-18-92 10:28:00 Test Item Value Reference Range Interpretation Comments Eosinophil Absolute Count (test 0.1 X10E3/UL 0.0-0.4 code = 12970-3) Count [facility] Hospitalmonocyte count, blood, azajcvqjh1535-26-70 10:28:00 Test Item Value Reference Range Interpretation Comments monocyte count, blood, automated 0.5 X10E3/UL 0.1-0.9 (test code = 742-7) Count Includes [facility] Hospitallymphocyte count, blood, gexgafrdr2794-21-44 10:28:00 Test Item Value Reference Range Interpretation Comments lymphocyte count, blood, 1.3 X10E3/UL 0.7-3.1 automated (test code = 731-0) Count [facility]cludes [facility] HospitalAbsolute Ukcbchektun4522-60-32 10:28:00 Test Item Value Reference Range Interpretation Comments Absolute Neutrophils (test code 5.6 X10E3/UL 1.4-7.0 = 76110-7) Count [facility] Hospitalbasophils as percent of blood xksknxlfog9264-33-57 10:28:00 Test Item Value Reference Range Interpretation Comments basophils as percent of blood 0 % leukocytes (test code = 707-0) Count Includes [facility] Hospitaleosinophils as percent of blood lgvukcpkca1597-49-35 10:28:00 Test Item Value Reference Range Interpretation Comments eosinophils as percent of blood 1 % leukocytes (test code = 713-8) [facility] Healthmonocytes as percent of blood upxlnophzs5405-80-32 10:28:00 Test Item Value Reference Range Interpretation Comments monocytes as percent of blood 6 % leukocytes (test code = 5905-5) Count Includes [facility] Hospitallymphocytes as percent of blood mhkufibvaf9928-90-55 10:28:00 Test Item Value Reference Range Interpretation Comments lymphocytes as percent of blood 17 % leukocytes (test code = 736-9) Count [facility]cludes [facility] Hospitalneutrophils as percent of blood cjksntmpnd6685-35-11 10:28:00 Test Item Value Reference Range Interpretation Comments neutrophils as percent of blood 75 % leukocytes (test code = 770-8) Count [facility]cludes [facility] Hospitalplatelet rinsy3294-02-33 10:28:00 Test Item Value Reference Range Interpretation Comments platelet count (test code = 194 X10E3/UL 150-450 777-3) Count Includes [facility] Hospitalred blood cell distribution [id number] 10:28:00 Test Item Value Reference Range Interpretation Comments red blood cell distribution width 11.9 % 11.7-15.4 (test code = 788-0) [facility] corpuscular hemoglobin concentration, [id number] 10:28:00 Test Item Value Reference Range Interpretation Comments mean corpuscular hemoglobin 35.3 G/DL 31.5-35.7 concentration, RBC (test code = 786-4) [facility] [id number] 10:28:00 Test Item Value Reference Range Interpretation Comments mean corpuscular hemoglobin, RBC 34.8 pg 26.6-33.0 H (test code = 785-6) [facility], [id number] 10:28:00 Test Item Value Reference Range Interpretation Comments mean corpuscular volume, RBC (test code 99 fL 79-97 H = 787-2) [facility] Hospitalhematocrit, [id number] 10:28:00 Test Item Value Reference Range Interpretation Comments hematocrit, blood (test code = 4544-3) 40.5 % 34.0-46.6 Count [facility] Hospitalhemoglobin, evtyj2650-40-22 10:28:00 Test Item Value Reference Range Interpretation Comments hemoglobin, blood (test code = 14.3 g/dL 11.1-15.9 718-7) Count [facility] Hospitalerythrocyte (RBC) dfohf7052-15-78 10:28:00 Test Item Value Reference Range Interpretation Comments erythrocyte (RBC) count (test 4.11 X10E6/UL 3.77-5.28 code = 789-8) Count [facility] Hospitalleukocyte count, ckrpp9098-75-17 10:28:00 Test Item Value Reference Range Interpretation Comments leukocyte count, blood (test 7.5 X10E3/UL 3.4-10.8 code = 6690-2) Count [facility]cludes [facility] HospitalCD4/CD8 zdfob8383-50-08 10:28:00 Test Item Value Reference Range Interpretation Comments CD4/CD8 ratio (test code = 18421) 1.14 0.92-3.72 Count Includes [facility] HospitalT-suppressor cells (CD8) as percent of blood lymphocytes 2020-11-18 10:28:00 Test Item Value Reference Range Interpretation Comments T-suppressor cells (CD8) as percent of 23.7 % 12.0-35.5 blood lymphocytes (test code = 3517) Count Includes [facility] Hospitalabsolute [id number] 10:28:00 Test Item Value Reference Range Interpretation Comments absolute CD8 (test code = 63762) 308 109-897 Count In[facility] HospitalT-helper cells (CD4) as percent of blood lymphocytes 2020-11-18 10:28:00 Test Item Value Reference Range Interpretation Comments T-helper cells (CD4) as percent of 26.9 % 30.8-58.5 L blood lymphocytes (test code = 8123-2) Count [facility] HospitalT-helper cells (CD4) npdem1222-48-62 10:28:00 Test Item Value Reference Range Interpretation Comments T-helper cells (CD4) count (test code 350 /UL 359-1519 L = 19364-4) Count Includes [facility] Hospitalrapid plasma reagin antibody, dedvd4817-98-76 10:39:00 Test Item Value Reference Range Interpretation Comments rapid plasma reagin antibody, Non Reactive Non Reactive serum (test code = 5291-0) Count Includes [facility] Hospitalhemoglobin A1C, blood, as % of total ndgawtdeda2798-91-07 10:39:00 Test Item Value Reference Range Interpretation Comments hemoglobin A1C, blood, as % of total 6.3 % 4.8-5.6 H hemoglobin (test code = 4548-4) Count Includes [facility] HospitalHIV-1RNA, serum, by PCR, enhgixmvswzb7675-80-27 10:39:00 Test Item Value Reference Range Interpretation Comments HIV-1RNA, serum, by PCR, quantitative 30 /mL (test code = 55902) Count Includes [facility] HospitalLDL cholesterol, xesnw7051-45-07 10:39:00 Test Item Value Reference Range Interpretation Comments LDL cholesterol, serum (test code = 87 mg/dL 0-99 2088-1) Count Includes [facility] Hospitalvery low density raxtyjruuiit5905-05-35 10:39:00 Test Item Value Reference Range Interpretation Comments very low density lipoproteins (test 44 mg/dL 5-40 H code = 2090-7) Count Includes [facility] HospitalHDL cholesterol, eytfv2075-48-81 10:39:00 Test Item Value Reference Range Interpretation Comments HDL cholesterol, serum (test code = 32 mg/dL >39 L 2084-9) Count [facility]cludes [facility] Hospitaltriglyceride, serum, snlszwj6834-40-85 10:39:00 Test Item Value Reference Range Interpretation Comments triglyceride, serum, fasting (test 220 mg/dL 0-149 H code = 2571-8) Count [facility] Hospitalcholesterol, khcvy7277-72-85 10:39:00 Test Item Value Reference Range Interpretation Comments cholesterol, serum (test code = 163 mg/dL 821-380 4317-3) Count Includes [facility] Hospitalalanine aminotransferase (SGPT), oymnu0587-94-80 10:39:00 Test Item Value Reference Range Interpretation Comments alanine aminotransferase (SGPT), serum 15 1/L 0-32 (test code = 1742-6) Count Includes [facility] Hospitalaspartate aminotransferase (SGOT), dqpsp1413-13-82 10:39:00 Test Item Value Reference Range Interpretation Comments aspartate aminotransferase (SGOT), 17 1/L 0-40 serum (test code = 1920-8) Count Includes [facility] Hospitalalkaline phosphatase, [id number] 10:39:00 Test Item Value Reference Range Interpretation Comments alkaline phosphatase, serum (test code 93 1/L 39-117 = 1783-0) Count [facility]cludes [facility] Hospitalbilirubin, serum, zvrai0363-77-03 10:39:00 Test Item Value Reference Range Interpretation Comments bilirubin, serum, total (test code <0.2 mg/dL 0.0-1.2 = 1975-2) Count Includes [facility] Hospitalalbumin/globulin ratio, lhzue4204-32-67 10:39:00 Test Item Value Reference Range Interpretation Comments albumin/globulin ratio, serum (test 1.7 1.2-2.2 code = 1759-0) [facility] Healthglobulin, [id number] 10:39:00 Test Item Value Reference Range Interpretation Comments globulin, serum (test code = 2336-6) 2.4 1.5-4.5 [facility] Healthalbumin, [id number] 10:39:00 Test Item Value Reference Range Interpretation Comments albumin, serum (test code = 1751-7) 4.0 g/dL 3.8-4.9 Count [facility]cludes [facility] Hospitalprotein, total, qgzfz5293-99-06 10:39:00 Test Item Value Reference Range Interpretation Comments protein, total, serum (test code = 6.4 g/dL 6.0-8.5 2885-2) Count [facility] Hospitalcalcium, rdczz5589-85-91 10:39:00 Test Item Value Reference Range Interpretation Comments calcium, serum (test code = 1999-8) 9.1 mg/dL 8.7-10.3 Count Includes [facility] Hospitalcarbon dioxide, venous rznfu8840-99-12 10:39:00 Test Item Value Reference Range Interpretation Comments carbon dioxide, venous blood (test 27 mmol/L 20-29 code = 7-1) [facility] Healthchloride, [id number] 10:39:00 Test Item Value Reference Range Interpretation Comments chloride, serum (test code = 100 mmol/L 96-106 2075-0) [facility] Healthpotassium, [id number] 10:39:00 Test Item Value Reference Range Interpretation Comments potassium, serum (test code = 4.6 mmol/L 3.5-5.2 2823-3) Count [facility]cludes [facility] Hospitalsodium, [id number] 10:39:00 Test Item Value Reference Range Interpretation Comments sodium, serum (test code = 2951-2) 139 mmol/L 134-144 Count Includes [facility] Hospitalurea nitrogen/creatinine ratio, itmyp8969-09-76 10:39:00 Test Item Value Reference Range Interpretation Comments urea nitrogen/creatinine ratio, serum 13 12-28 (test code = 3097-3) [facility] HealtheGFR if Xenezvma6376-45-45 10:39:00 Test Item Value Reference Range Interpretation Comments eGFR if 110 >59 (test code = 53981-0) mL/min/((173/100).m2) Count Includes [facility] HospitalEstimated Glomerular Filtration Rate (calc)2020-05-28 10:39:00 Test Item Value Reference Range Interpretation Comments Estimated Glomerular 96 >59 Filtration Rate (calc) mL/min/((173/100).m2 (test code = 85928-8) ) Count Includes [facility] Hospitalcreatinine, rtvnl4630-20-46 10:39:00 Test Item Value Reference Range Interpretation Comments creatinine, serum (test code = 0.67 mg/dL 0.57-1.00 2160-0) Count Includes [facility] Hospitalurea nitrogen, ofsms1552-43-57 10:39:00 Test Item Value Reference Range Interpretation Comments urea nitrogen, blood (test code = 9 mg/dL 8-27 3094-0) Count [facility] Hospitalblood glucose, zzhdlw3570-25-30 10:39:00 Test Item Value Reference Range Interpretation Comments blood glucose, random (test code = 106 mg/dL 65-99 H 2339-0) Count Includes [facility] Hospitalimmature granulocytes, percentage of total cells, blood 2020-05-28 10:39:00 Test Item Value Reference Range Interpretation Comments immature granulocytes, percentage of 0 % total cells, blood (test code = 02548-7) [facility] Healthbasophil count, sbvkvtzk2388-80-85 10:39:00 Test Item Value Reference Range Interpretation Comments basophil count, absolute (test 0.0 x10E3/uL 0.0-0.2 code = 17511-4) [facility] HealthEosinophil Absolute Diney6902-37-55 10:39:00 Test Item Value Reference Range Interpretation Comments Eosinophil Absolute Count (test 0.1 X10E3/UL 0.0-0.4 code = 80190-2) Count Includes [facility] Hospitalmonocyte count, blood, azqorfntx4280-48-48 10:39:00 Test Item Value Reference Range Interpretation Comments monocyte count, blood, automated 0.4 X10E3/UL 0.1-0.9 (test code = 742-7) Count Includes [facility] Hospitallymphocyte count, blood, edtbghvvf9230-90-25 10:39:00 Test Item Value Reference Range Interpretation Comments lymphocyte count, blood, 1.5 X10E3/UL 0.7-3.1 automated (test code = 731-0) Count Includes [facility] HospitalAbsolute Atooemefzzc7818-41-98 10:39:00 Test Item Value Reference Range Interpretation Comments Absolute Neutrophils (test code 4.8 X10E3/UL 1.4-7.0 = 65886-6) Count [facility]cludes [facility] Hospitalbasophils as percent of blood jhzpgixvkq9958-09-46 10:39:00 Test Item Value Reference Range Interpretation Comments basophils as percent of blood 0 % leukocytes (test code = 707-0) [facility] Healtheosinophils as percent of blood soibvgcfug7545-41-06 10:39:00 Test Item Value Reference Range Interpretation Comments eosinophils as percent of blood 1 % leukocytes (test code = 713-8) [facility] Healthmonocytes as percent of blood vzufgeeifc6976-56-07 10:39:00 Test Item Value Reference Range Interpretation Comments monocytes as percent of blood 6 % leukocytes (test code = 5905-5) Count Includes [facility] Hospitallymphocytes as percent of blood htkjumngub9178-28-97 10:39:00 Test Item Value Reference Range Interpretation Comments lymphocytes as percent of blood 23 % leukocytes (test code = 736-9) Count Includes [facility] Hospitalneutrophils as percent of blood shpsuvmdmo4112-49-98 10:39:00 Test Item Value Reference Range Interpretation Comments neutrophils as percent of blood 70 % leukocytes (test code = 770-8) Count [facility] Hospitalplatelet leuio0888-22-43 10:39:00 Test Item Value Reference Range Interpretation Comments platelet count (test code = 203 X10E3/UL 150-450 777-3) Count [facility] Hospitalred blood cell distribution kdejq0895-64-07 10:39:00 Test Item Value Reference Range Interpretation Comments red blood cell distribution width 12.4 % 11.7-15.4 (test code = 788-0) [facility] corpuscular hemoglobin concentration, [id number] 10:39:00 Test Item Value Reference Range Interpretation Comments mean corpuscular hemoglobin 36.0 G/DL 31.5-35.7 H concentration, RBC (test code = 786-4) [facility] corpuscular hemoglobin, [id number] 10:39:00 Test Item Value Reference Range Interpretation Comments mean corpuscular hemoglobin, RBC 34.9 pg 26.6-33.0 H (test code = 785-6) [facility] corpuscular volume, [id number] 10:39:00 Test Item Value Reference Range Interpretation Comments mean corpuscular volume, RBC (test code 97 fL 79-97 = 787-2) [facility] Hospitalhematocrit, vqdtj2825-21-51 10:39:00 Test Item Value Reference Range Interpretation Comments hematocrit, blood (test code = 4544-3) 38.1 % 34.0-46.6 Count Includes [facility] Hospitalhemoglobin, nmwhu9206-19-94 10:39:00 Test Item Value Reference Range Interpretation Comments hemoglobin, blood (test code = 13.7 g/dL 11.1-15.9 718-7) Count [facility] Hospitalerythrocyte (RBC) pfowx6872-93-77 10:39:00 Test Item Value Reference Range Interpretation Comments erythrocyte (RBC) count (test 3.93 X10E6/UL 3.77-5.28 code = 789-8) Count [facility] Hospitalleukocyte count, nunif3190-92-25 10:39:00 Test Item Value Reference Range Interpretation Comments leukocyte count, blood (test 6.8 X10E3/UL 3.4-10.8 code = 6690-2) Count [facility]cludes [facility] HospitalCD4/CD8 ijuzz6260-63-23 10:39:00 Test Item Value Reference Range Interpretation Comments CD4/CD8 ratio (test code = 91553) 1.20 0.92-3.72 Count Includes [facility] HospitalT-suppressor cells (CD8) as percent of blood lymphocytes 2020-05-28 10:39:00 Test Item Value Reference Range Interpretation Comments T-suppressor cells (CD8) as percent of 27.1 % 12.0-35.5 blood lymphocytes (test code = 3517) Count Includes [facility] Hospitalabsolute [id number] 10:39:00 Test Item Value Reference Range Interpretation Comments absolute CD8 (test code = 86441) 407 109-897 Count In[facility] HospitalT-helper cells (CD4) as percent of blood lymphocytes 2020-05-28 10:39:00 Test Item Value Reference Range Interpretation Comments T-helper cells (CD4) as percent of 32.4 % 30.8-58.5 blood lymphocytes (test code = 8123-2) Count [facility] HospitalT-helper cells (CD4) sefbc9605-28-21 10:39:00 Test Item Value Reference Range Interpretation Comments T-helper cells (CD4) count (test code 486 /UL 359-1519 = 46925-4) Count Includes [facility] Hospitalrapid plasma reagin antibody, [id number] 11:23:00 Test Item Value Reference Range Interpretation Comments rapid plasma reagin antibody, Non Reactive Non Reactive serum (test code = 5291-0) Count Includes [facility] Hospitalhemoglobin A1C, blood, as % of total gptpgsqpkp6594-18-04 11:23:00 Test Item Value Reference Range Interpretation Comments hemoglobin A1C, blood, as % of total 5.6 % 4.8-5.6 hemoglobin (test code = 4548-4) Count [facility] HospitalHIV-1RNA, serum, by PCR, gxhscrgaffsy9794-70-25 11:23:00 Test Item Value Reference Range Interpretation Comments HIV-1RNA, serum, by PCR, <20 copies/mL quantitative (test code = 15049) Count Includes [facility] HospitalLDL cholesterol, cshrf0420-07-86 11:23:00 Test Item Value Reference Range Interpretation Comments LDL cholesterol, serum (test code = 94 mg/dL 0-99 2088-1) Count Includes [facility] Hospitalvery low density hltcbqgljppc1813-75-69 11:23:00 Test Item Value Reference Range Interpretation Comments very low density lipoproteins (test 57 mg/dL 5-40 H code = 2090-7) Count [facility] HospitalHDL cholesterol, xwuvd9312-55-07 11:23:00 Test Item Value Reference Range Interpretation Comments HDL cholesterol, serum (test code = 36 mg/dL >39 L 2084-9) [facility] Hospitaltriglyceride, serum, lpfjped5349-25-63 11:23:00 Test Item Value Reference Range Interpretation Comments triglyceride, serum, fasting (test 284 mg/dL 0-149 H code = 2571-8) Count [facility] Hospitalcholesterol, ejnok0828-20-92 11:23:00 Test Item Value Reference Range Interpretation Comments cholesterol, serum (test code = 187 mg/dL 536-350 1322-3) Count [facility]cludes [facility] Hospitalalanine aminotransferase (SGPT), vsscb8665-35-17 11:23:00 Test Item Value Reference Range Interpretation Comments alanine aminotransferase (SGPT), serum 7 1/L 0-32 (test code = 1742-6) Count Includes [facility] Hospitalaspartate aminotransferase (SGOT), famtn0213-10-53 11:23:00 Test Item Value Reference Range Interpretation Comments aspartate aminotransferase (SGOT), 9 1/L 0-40 serum (test code = 1920-8) Count [facility]cludes [facility] Hospitalalkaline phosphatase, oqfbn4205-72-70 11:23:00 Test Item Value Reference Range Interpretation Comments alkaline phosphatase, serum (test code 93 1/L 39-117 = 1783-0) Count [facility] Hospitalbilirubin, serum, womgs9733-80-19 11:23:00 Test Item Value Reference Range Interpretation Comments bilirubin, serum, total (test code <0.2 mg/dL 0.0-1.2 = 1974-2) [facility] Healthalbumin/globulin ratio, fbvxk7271-15-84 11:23:00 Test Item Value Reference Range Interpretation Comments albumin/globulin ratio, serum (test 1.4 1.2-2.2 code = 1759-0) [facility] Healthglobulin, lgqfu1778-74-05 11:23:00 Test Item Value Reference Range Interpretation Comments globulin, serum (test code = 2336-6) 2.8 1.5-4.5 [facility] Healthalbumin, jgqhg4883-77-02 11:23:00 Test Item Value Reference Range Interpretation Comments albumin, serum (test code = 1751-7) 3.9 g/dL 3.8-4.9 Count [facility]cludes [facility] Hospitalprotein, total, wgcgm3282-00-12 11:23:00 Test Item Value Reference Range Interpretation Comments protein, total, serum (test code = 6.7 g/dL 6.0-8.5 2885-2) [facility] Hospitalcalcium, [id number] 11:23:00 Test Item Value Reference Range Interpretation Comments calcium, serum (test code = 1999-8) 9.1 mg/dL 8.7-10.3 Count Includes [facility] Hospitalcarbon dioxide, venous hwbso3589-99-65 11:23:00 Test Item Value Reference Range Interpretation Comments carbon dioxide, venous blood (test 27 mmol/L - code = 2026-1) Count [facility] Hospitalchloride, qmmuk1875-80-75 11:23:00 Test Item Value Reference Range Interpretation Comments chloride, serum (test code = 99 mmol/L 96-106 5-0) [facility] Hospitalpotassium, ujtsb9568-91-52 11:23:00 Test Item Value Reference Range Interpretation Comments potassium, serum (test code = 4.7 mmol/L 3.5-5.2 2823-3) [facility] [facility], [id number] 11:23:00 Test Item Value Reference Range Interpretation Comments sodium, serum (test code = 2951-2) 140 mmol/L 134-144 [facility] Hospitalurea nitrogen/creatinine ratio, [id number] 11:23:00 Test Item Value Reference Range Interpretation Comments urea nitrogen/creatinine ratio, serum 17 - (test code = 3097-3) Count [facility]cludes [facility] HospitaleGFR if Qjblzyfk7972-33-58 11:23:00 Test Item Value Reference Range Interpretation Comments eGFR if 100 >59 (test code = 60546-5) mL/min/((173/100).m2) Count [facility]cludes [facility] HospitalEstimated Glomerular Filtration Rate (calc)2020-02-07 11:23:00 Test Item Value Reference Range Interpretation Comments Estimated Glomerular 87 >59 Filtration Rate (calc) mL/min/((173/100).m2 (test code = 12805-5) ) [facility] Hospitalcreatinine, [id number] 11:23:00 Test Item Value Reference Range Interpretation Comments creatinine, serum (test code = 0.75 mg/dL 0.57-1.00 2160-0) [facility]cludes [facility] Hospitalurea nitrogen, [id number] 11:23:00 Test Item Value Reference Range Interpretation Comments urea nitrogen, blood (test code = 13 mg/dL 8-27 3094-0) [facility] Hospitalblood glucose, [id number] 11:23:00 Test Item Value Reference Range Interpretation Comments blood glucose, random (test code = 74 mg/dL 65-99 2339-0) Count [facility]cludes [facility] Hospitalimmature granulocytes, percentage of total cells, blood 2020-02-07 11:23:00 Test Item Value Reference Range Interpretation Comments immature granulocytes, percentage of 0 % total cells, blood (test code = 35783-4) Count [facility] Hospitalbasophil count, fqwwztot0192-73-57 11:23:00 Test Item Value Reference Range Interpretation Comments basophil count, absolute (test 0.0 x10E3/uL 0.0-0.2 code = 08026-6) Count [facility]cludes [facility] HospitalEosinophil Absolute Sehuj6691-13-30 11:23:00 Test Item Value Reference Range Interpretation Comments Eosinophil Absolute Count (test 0.1 X10E3/UL 0.0-0.4 code = 58129-8) Count [facility]cludes [facility] Hospitalmonocyte count, blood, xmffizrnz7921-25-64 11:23:00 Test Item Value Reference Range Interpretation Comments monocyte count, blood, automated 0.4 X10E3/UL 0.1-0.9 (test code = 742-7) Count Includes [facility] Hospitallymphocyte count, blood, tvjlphmel6974-94-59 11:23:00 Test Item Value Reference Range Interpretation Comments lymphocyte count, blood, 1.6 X10E3/UL 0.7-3.1 automated (test code = 731-0) Count [facility]cludes [facility] HospitalAbsolute Qskeirsesgz9587-75-94 11:23:00 Test Item Value Reference Range Interpretation Comments Absolute Neutrophils (test code 5.0 X10E3/UL 1.4-7.0 = 78659-1) Count [facility]cludes [facility] Hospitalbasophils as percent of blood riduneczos9545-19-35 11:23:00 Test Item Value Reference Range Interpretation Comments basophils as percent of blood 0 % leukocytes (test code = 707-0) Count [facility]cludes [facility] Hospitaleosinophils as percent of blood dslqtynaxi4825-90-99 11:23:00 Test Item Value Reference Range Interpretation Comments eosinophils as percent of blood 1 % leukocytes (test code = 713-8) Count [facility]cludes [facility] Hospitalmonocytes as percent of blood lnsnxhhamv6903-65-59 11:23:00 Test Item Value Reference Range Interpretation Comments monocytes as percent of blood 6 % leukocytes (test code = 5905-5) Count Includes [facility] Hospitallymphocytes as percent of blood blrbsdtfqh6194-47-28 11:23:00 Test Item Value Reference Range Interpretation Comments lymphocytes as percent of blood 22 % leukocytes (test code = 736-9) Count Includes [facility] Hospitalneutrophils as percent of blood njzbqediaz4106-78-13 11:23:00 Test Item Value Reference Range Interpretation Comments neutrophils as percent of blood 71 % leukocytes (test code = 770-8) Count Includes [facility] Hospitalplatelet [id number] 11:23:00 Test Item Value Reference Range Interpretation Comments platelet count (test code = 214 X10E3/UL 150-450 777-3) Count [facility] Hospitalred blood cell distribution zqfnj9949-06-29 11:23:00 Test Item Value Reference Range Interpretation Comments red blood cell distribution width 12.8 % 11.7-15.4 (test code = 788-0) [facility] corpuscular hemoglobin concentration, [id number] 11:23:00 Test Item Value Reference Range Interpretation Comments mean corpuscular hemoglobin 33.4 G/DL 31.5-35.7 concentration, RBC (test code = 786-4) [facility], [id number] 11:23:00 Test Item Value Reference Range Interpretation Comments mean corpuscular hemoglobin, RBC 33.8 pg 26.6-33.0 H (test code = 785-6) Count Includes [facility] Hospitalmean corpuscular volume, [id number] 11:23:00 Test Item Value Reference Range Interpretation Comments mean corpuscular volume, RBC (test 101 fL 79-97 H code = 787-2) Count [facility]cludes [facility] Hospitalhematocrit, [id number] 11:23:00 Test Item Value Reference Range Interpretation Comments hematocrit, blood (test code = 4544-3) 40.1 % 34.0-46.6 Count Includes [facility] Hospitalhemoglobin, [id number] 11:23:00 Test Item Value Reference Range Interpretation Comments hemoglobin, blood (test code = 13.4 g/dL 11.1-15.9 718-7) Count Includes [facility] Hospitalerythrocyte (RBC) wnblo4555-39-84 11:23:00 Test Item Value Reference Range Interpretation Comments erythrocyte (RBC) count (test 3.97 X10E6/UL 3.77-5.28 code = 789-8) Count Includes [facility] Hospitalleukocyte count, [id number] 11:23:00 Test Item Value Reference Range Interpretation Comments leukocyte count, blood (test 7.1 X10E3/UL 3.4-10.8 code = 6690-2) Count Includes [facility] HospitalCD4/CD8 [id number] 11:23:00 Test Item Value Reference Range Interpretation Comments CD4/CD8 ratio (test code = 92496) 1.01 0.92-3.72 Count Includes [facility] HospitalT-suppressor cells (CD8) as percent of blood lymphocytes 2020-02-07 11:23:00 Test Item Value Reference Range Interpretation Comments T-suppressor cells (CD8) as percent of 28.0 % 12.0-35.5 blood lymphocytes (test code = 3517) Count Includes [facility] Hospitalabsolute [id number] 11:23:00 Test Item Value Reference Range Interpretation Comments absolute CD8 (test code = 11188) 448 109-897 Count Includes [facility] HospitalT-helper cells (CD4) as percent of blood lymphocytes 2020-02-07 11:23:00 Test Item Value Reference Range Interpretation Comments T-helper cells (CD4) as percent of 28.4 % 30.8-58.5 L blood lymphocytes (test code = 8123-2) Count Includes [facility] HospitalT-helper cells (CD4) [id number] 11:23:00 Test Item Value Reference Range Interpretation Comments T-helper cells (CD4) count (test code 454 /UL 359-1519 = 12404-3) Count Includes [facility] HospitalQuantiferon Gold TB blood test for tuberculosis screening 2019-10-04 09:29:00 Test Item Value Reference Range Interpretation Comments Quantiferon Gold TB blood test for Positive Negative A tuberculosis screening (test code = 93831-3) Count Includes [facility] Hospitalhepatitis C antibody, [id number] 09:19:00 Test Item Value Reference Range Interpretation Comments hepatitis C antibody, serum (test code <0.1 0.0-0.9 = 5199-5) Count Includes [facility] Hospitalrapid plasma reagin antibody, [id number] 09:19:00 Test Item Value Reference Range Interpretation Comments rapid plasma reagin antibody, Non Reactive Non Reactive serum (test code = 5291-0) Count Includes [facility] HospitalHIV-1RNA, serum, by PCR, enjtlekyhbaf8006-05-73 09:19:00 Test Item Value Reference Range Interpretation Comments HIV-1RNA, serum, by PCR, quantitative 380 /mL (test code = 82668) Count Includes [facility] HospitalLDL cholesterol, wsiqw0324-90-05 09:19:00 Test Item Value Reference Range Interpretation Comments LDL cholesterol, serum (test code = 82 mg/dL 0-99 2088-1) Count Includes [facility] Hospitalvery low density gcmgncqdhvgd5480-09-75 09:19:00 Test Item Value Reference Range Interpretation Comments very low density lipoproteins (test 32 mg/dL 5-40 code = 2091-7) Count Includes [facility] HospitalHDL cholesterol, hsyjp4441-29-74 09:19:00 Test Item Value Reference Range Interpretation Comments HDL cholesterol, serum (test code = 42 mg/dL >39 5-9) Count Includes [facility] Hospitaltriglyceride, serum, plqotru5850-84-00 09:19:00 Test Item Value Reference Range Interpretation Comments triglyceride, serum, fasting (test 161 mg/dL 0-149 H code = 2571-8) Count Includes [facility] Hospitalcholesterol, kvqdj5427-39-87 09:19:00 Test Item Value Reference Range Interpretation Comments cholesterol, serum (test code = 156 mg/dL 911-964 7041-3) Count Includes [facility] Hospitalalanine aminotransferase (SGPT), nkmnx1678-87-89 09:19:00 Test Item Value Reference Range Interpretation Comments alanine aminotransferase (SGPT), serum 10 1/L 0-32 (test code = 1742-6) Count Includes [facility] Hospitalaspartate aminotransferase (SGOT), oqtwx6862-50-35 09:19:00 Test Item Value Reference Range Interpretation Comments aspartate aminotransferase (SGOT), 9 1/L 0-40 serum (test code = 1920-8) Count Includes [facility] Hospitalalkaline phosphatase, dzpzo3093-26-63 09:19:00 Test Item Value Reference Range Interpretation Comments alkaline phosphatase, serum (test code 99 1/L 39-117 = 1783-0) Count Includes [facility] Hospitalbilirubin, serum, [id number] 09:19:00 Test Item Value Reference Range Interpretation Comments bilirubin, serum, total (test code 0.3 mg/dL 0.0-1.2 = 1975-2) Count Includes [facility] Hospitalalbumin/globulin ratio, jgacq1354-00-25 09:19:00 Test Item Value Reference Range Interpretation Comments albumin/globulin ratio, serum (test 1.6 1.2-2.2 code = 1759-0) [facility] Healthglobulin, [id number] 09:19:00 Test Item Value Reference Range Interpretation Comments globulin, serum (test code = 2336-6) 2.4 1.5-4.5 [facility] Healthalbumin, [id number] 09:19:00 Test Item Value Reference Range Interpretation Comments albumin, serum (test code = 1751-7) 3.9 g/dL 3.5-5.5 Count Includes [facility] Hospitalprotein, total, [id number] 09:19:00 Test Item Value Reference Range Interpretation Comments protein, total, serum (test code = 6.3 g/dL 6.0-8.5 2885-2) Count Includes [facility] Hospitalcalcium, vqjdr1871-87-92 09:19:00 Test Item Value Reference Range Interpretation Comments calcium, serum (test code = 1999-8) 9.2 mg/dL 8.7-10.2 Count Includes [facility] Hospitalcarbon dioxide, venous dxxpt1481-00-85 09:19:00 Test Item Value Reference Range Interpretation Comments carbon dioxide, venous blood (test 27 mmol/L 20-29 code = 7-1) Count Includes [facility] Hospitalchloride, [id number] 09:19:00 Test Item Value Reference Range Interpretation Comments chloride, serum (test code = 102 mmol/L 96-106 2075-0) [facility] Healthpotassium, tsmub7157-55-96 09:19:00 Test Item Value Reference Range Interpretation Comments potassium, serum (test code = 4.5 mmol/L 3.5-5.2 2823-3) Count [facility]cludes [facility] Hospitalsodium, [id number] 09:19:00 Test Item Value Reference Range Interpretation Comments sodium, serum (test code = 2951-2) 140 mmol/L 134-144 Count Includes [facility] Hospitalurea nitrogen/creatinine ratio, hfbxe1087-66-29 09:19:00 Test Item Value Reference Range Interpretation Comments urea nitrogen/creatinine ratio, serum 25 9-23 H (test code = 3097-3) Count Includes [facility] HospitaleGFR if Ftyinzkq1801-68-18 09:19:00 Test Item Value Reference Range Interpretation Comments eGFR if 118 >59 (test code = 56883-6) mL/min/((173/100).m2) Count Includes [facility] HospitalEstimated Glomerular Filtration Rate (calc)2019-10-04 09:19:00 Test Item Value Reference Range Interpretation Comments Estimated Glomerular 102 >59 Filtration Rate (calc) mL/min/((173/100).m2 (test code = 96005-2) ) Count Includes [facility] Hospitalcreatinine, [id number] 09:19:00 Test Item Value Reference Range Interpretation Comments creatinine, serum (test code = 0.56 mg/dL 0.57-1.00 L 2160-0) Count Includes [facility] Hospitalurea nitrogen, [id number] 09:19:00 Test Item Value Reference Range Interpretation Comments urea nitrogen, blood (test code = 14 mg/dL 6-24 3094-0) Count Includes [facility] Hospitalblood glucose, kwtyec9691-12-64 09:19:00 Test Item Value Reference Range Interpretation Comments blood glucose, random (test code = 121 mg/dL 65-99 H 2339-0) Count Includes [facility] Hospitalimmature granulocytes, percentage of total cells, blood 2019-10-04 09:19:00 Test Item Value Reference Range Interpretation Comments immature granulocytes, percentage of 0 % total cells, blood (test code = 20292-4) Count Includes [facility] Hospitalbasophil count, qltvqrwq3643-77-94 09:19:00 Test Item Value Reference Range Interpretation Comments basophil count, absolute (test 0.0 x10E3/uL 0.0-0.2 code = 44484-7) [facility] HealthEosinophil Absolute Sgrnr1276-68-05 09:19:00 Test Item Value Reference Range Interpretation Comments Eosinophil Absolute Count (test 0.2 X10E3/UL 0.0-0.4 code = 48397-0) Count Includes [facility] Hospitalmonocyte count, blood, egvvhdagt6716-10-59 09:19:00 Test Item Value Reference Range Interpretation Comments monocyte count, blood, automated 0.4 X10E3/UL 0.1-0.9 (test code = 742-7) Count Includes [facility] Hospitallymphocyte count, blood, suqylpafd8694-32-32 09:19:00 Test Item Value Reference Range Interpretation Comments lymphocyte count, blood, 1.7 X10E3/UL 0.7-3.1 automated (test code = 731-0) [facility] HealthAbsolute Akiuaqjutpd1554-00-72 09:19:00 Test Item Value Reference Range Interpretation Comments Absolute Neutrophils (test code 3.5 X10E3/UL 1.4-7.0 = 81319-1) [facility] Healthbasophils as percent of blood fcmhpucioq2505-80-98 09:19:00 Test Item Value Reference Range Interpretation Comments basophils as percent of blood 1 % leukocytes (test code = 707-0) [facility] Healtheosinophils as percent of blood kyyhpsgxfr6621-14-26 09:19:00 Test Item Value Reference Range Interpretation Comments eosinophils as percent of blood 3 % leukocytes (test code = 713-8) [facility] Healthmonocytes as percent of blood zfwwjfsded5981-86-29 09:19:00 Test Item Value Reference Range Interpretation Comments monocytes as percent of blood 7 % leukocytes (test code = 5905-5) Count Includes [facility] Hospitallymphocytes as percent of blood herzgsxayn8489-42-45 09:19:00 Test Item Value Reference Range Interpretation Comments lymphocytes as percent of blood 29 % leukocytes (test code = 736-9) Count Includes [facility] Hospitalneutrophils as percent of blood huqmqazndk1747-51-89 09:19:00 Test Item Value Reference Range Interpretation Comments neutrophils as percent of blood 60 % leukocytes (test code = 770-8) Count Includes [facility] Hospitalplatelet flpik9703-44-20 09:19:00 Test Item Value Reference Range Interpretation Comments platelet count (test code = 234 X10E3/UL 150-450 777-3) Count Includes [facility] Hospitalred blood cell distribution wcbqf0754-99-50 09:19:00 Test Item Value Reference Range Interpretation Comments red blood cell distribution width 13.0 % 12.3-15.4 (test code = 788-0) [facility] corpuscular hemoglobin concentration, [id number] 09:19:00 Test Item Value Reference Range Interpretation Comments mean corpuscular hemoglobin 33.8 G/DL 31.5-35.7 concentration, RBC (test code = 786-4) [facility] corpuscular hemoglobin, [id number] 09:19:00 Test Item Value Reference Range Interpretation Comments mean corpuscular hemoglobin, RBC 34.9 pg 26.6-33.0 H (test code = 785-6) [facility] corpuscular volume, [id number] 09:19:00 Test Item Value Reference Range Interpretation Comments mean corpuscular volume, RBC (test 103 fL 79-97 H code = 787-2) Count [facility] Hospitalhematocrit, [id number] 09:19:00 Test Item Value Reference Range Interpretation Comments hematocrit, blood (test code = 4544-3) 41.4 % 34.0-46.6 Count Includes [facility] Hospitalhemoglobin, [id number] 09:19:00 Test Item Value Reference Range Interpretation Comments hemoglobin, blood (test code = 14.0 g/dL 11.1-15.9 718-7) Count Includes [facility] Hospitalerythrocyte (RBC) kuppg2004-72-67 09:19:00 Test Item Value Reference Range Interpretation Comments erythrocyte (RBC) count (test 4.01 X10E6/UL 3.77-5.28 code = 789-8) Count Includes [facility] Hospitalleukocyte count, lxkvr0601-65-02 09:19:00 Test Item Value Reference Range Interpretation Comments leukocyte count, blood (test 5.8 X10E3/UL 3.4-10.8 code = 6690-2) Count Includes [facility] HospitalCD4/CD8 ttklv6513-79-90 09:19:00 Test Item Value Reference Range Interpretation Comments CD4/CD8 ratio (test code = 24564) 0.91 0.92-3.72 L Count Includes [facility] HospitalT-suppressor cells (CD8) as percent of blood lymphocytes 2019-10-04 09:19:00 Test Item Value Reference Range Interpretation Comments T-suppressor cells (CD8) as percent of 26.7 % 12.0-35.5 blood lymphocytes (test code = 3517) Count Includes [facility] Hospitalabsolute [id number] 09:19:00 Test Item Value Reference Range Interpretation Comments absolute CD8 (test code = 89396) 454 109-897 Count Includes [facility] HospitalT-helper cells (CD4) as percent of blood lymphocytes 2019-10-04 09:19:00 Test Item Value Reference Range Interpretation Comments T-helper cells (CD4) as percent of 24.4 % 30.8-58.5 L blood lymphocytes (test code = 8123-2) Count In[facility] HospitalT-helper cells (CD4) ecycl1551-47-15 09:19:00 Test Item Value Reference Range Interpretation Comments T-helper cells (CD4) count (test code 415 /UL 359-1519 = 24762-6) Count Includes [facility] HospitalLDL cholesterol, zcnyy3853-79-04 10:34:00 Test Item Value Reference Range Interpretation Comments LDL cholesterol, serum (test code = 58 mg/dL 0-99 2088-1) Count Includes [facility] Hospitalvery low density iyzzgnngvsen7222-28-20 10:34:00 Test Item Value Reference Range Interpretation Comments very low density lipoproteins (test 35 mg/dL 5-40 code = 2091-7) Count In[facility] HospitalHDL cholesterol, xvrqz3564-43-25 10:34:00 Test Item Value Reference Range Interpretation Comments HDL cholesterol, serum (test code = 34 mg/dL >39 L 2084-9) [facility], vgmxaxy4601-31-03 10:34:00 Test Item Value Reference Range Interpretation Comments triglyceride, serum, fasting (test 174 mg/dL 0-149 H code = 2571-8) Count Includes [facility] Hospitalcholesterol, [id number] 10:34:00 Test Item Value Reference Range Interpretation Comments cholesterol, serum (test code = 127 mg/dL 814-004 4100-3) Count Includes [facility] Hospitalrapid plasma reagin antibody, jcgox5084-22-64 10:25:00 Test Item Value Reference Range Interpretation Comments rapid plasma reagin antibody, Non Reactive Non Reactive serum (test code = 5291-0) Count Includes [facility] HospitalHIV-1RNA, serum, by PCR, pbqbwdqivtin7666-52-26 10:25:00 Test Item Value Reference Range Interpretation Comments HIV-1RNA, serum, by PCR, <20 copies/mL quantitative (test code = 40958) Count Includes [facility] Hospitalalanine aminotransferase (SGPT), kalrt9450-21-54 10:25:00 Test Item Value Reference Range Interpretation Comments alanine aminotransferase (SGPT), serum 12 1/L 0-32 (test code = 1742-6) Count Includes [facility] Hospitalaspartate aminotransferase (SGOT), ixllq5558-50-99 10:25:00 Test Item Value Reference Range Interpretation Comments aspartate aminotransferase (SGOT), 9 1/L 0-40 serum (test code = 1920-8) Count Includes [facility] Hospitalalkaline phosphatase, keunt5578-15-68 10:25:00 Test Item Value Reference Range Interpretation Comments alkaline phosphatase, serum (test 102 1/L 39-117 code = 1783-0) Count [facility] Hospitalbilirubin, serum, fhpxw8758-53-18 10:25:00 Test Item Value Reference Range Interpretation Comments bilirubin, serum, total (test code 0.4 mg/dL 0.0-1.2 = 1975-2) Count [facility] Hospitalalbumin/globulin ratio, mequc9986-88-05 10:25:00 Test Item Value Reference Range Interpretation Comments albumin/globulin ratio, serum (test 1.4 1.2-2.2 code = 1759-0) [facility] Healthglobulin, gdoux2163-94-64 10:25:00 Test Item Value Reference Range Interpretation Comments globulin, serum (test code = 2336-6) 2.8 1.5-4.5 [facility] Healthalbumin, hhrho2501-32-11 10:25:00 Test Item Value Reference Range Interpretation Comments albumin, serum (test code = 1751-7) 4.0 g/dL 3.5-5.5 [facility] Healthprotein, total, zhkgq6615-17-69 10:25:00 Test Item Value Reference Range Interpretation Comments protein, total, serum (test code = 6.8 g/dL 6.0-8.5 2885-2) Count [facility] Hospitalcalcium, ojkrs2797-67-67 10:25:00 Test Item Value Reference Range Interpretation Comments calcium, serum (test code = 1999-) 9.3 mg/dL 8.7-10.2 Count Includes [facility] Hospitalcarbon dioxide, venous [id number] 10:25:00 Test Item Value Reference Range Interpretation Comments carbon dioxide, venous blood (test 29 mmol/L 29 code = 2026-1) Count [facility] Hospitalchloride, vkogw4804-59-68 10:25:00 Test Item Value Reference Range Interpretation Comments chloride, serum (test code = 99 mmol/L 96-106 5-0) Count [facility] Hospitalpotassium, [id number] 10:25:00 Test Item Value Reference Range Interpretation Comments potassium, serum (test code = 4.4 mmol/L 3.5-5.2 2823-3) [facility]cludes [facility] Hospitalsodium, uolqx9082-53-94 10:25:00 Test Item Value Reference Range Interpretation Comments sodium, serum (test code = 2951-2) 140 mmol/L 134-144 Count Includes [facility] Hospitalurea nitrogen/creatinine ratio, pbkew1403-72-68 10:25:00 Test Item Value Reference Range Interpretation Comments urea nitrogen/creatinine ratio, serum 20 9-23 (test code = 3097-3) [facility] HealtheGFR if Opbxmcpz4930-51-11 10:25:00 Test Item Value Reference Range Interpretation Comments eGFR if 115 >59 (test code = 20075-0) mL/min/((173/100).m2) Count Includes [facility] HospitalEstimated Glomerular Filtration Rate (calc)2019-06-07 10:25:00 Test Item Value Reference Range Interpretation Comments Estimated Glomerular 100 >59 Filtration Rate (calc) mL/min/((173/100).m2 (test code = 17540-8) ) [facility] Healthcreatinine, [id number] 10:25:00 Test Item Value Reference Range Interpretation Comments creatinine, serum (test code = 0.61 mg/dL 0.57-1.00 2160-0) Count Includes [facility] Hospitalurea nitrogen, stemr5811-20-86 10:25:00 Test Item Value Reference Range Interpretation Comments urea nitrogen, blood (test code = 12 mg/dL 6-24 3094-0) [facility] Hospitalblood glucose, ytfwqw3702-57-71 10:25:00 Test Item Value Reference Range Interpretation Comments blood glucose, random (test code = 131 mg/dL 65-99 H 2339-0) Count Includes [facility] Hospitalimmature granulocytes, percentage of total cells, blood 2019-06-07 10:25:00 Test Item Value Reference Range Interpretation Comments immature granulocytes, percentage of 0 % total cells, blood (test code = 19226-0) Count [facility] Hospitalbasophil count, [id number] 10:25:00 Test Item Value Reference Range Interpretation Comments basophil count, absolute (test 0.0 x10E3/uL 0.0-0.2 code = 51273-1) Count [facility]cludes [facility] HospitalEosinophil Absolute Ixoih1729-36-90 10:25:00 Test Item Value Reference Range Interpretation Comments Eosinophil Absolute Count (test 0.1 X10E3/UL 0.0-0.4 code = 75846-3) Count [facility] Hospitalmonocyte count, blood, uqpwevhwp0069-22-19 10:25:00 Test Item Value Reference Range Interpretation Comments monocyte count, blood, automated 0.3 X10E3/UL 0.1-0.9 (test code = 742-7) Count Includes [facility] Hospitallymphocyte count, blood, towlqkrgy0535-45-54 10:25:00 Test Item Value Reference Range Interpretation Comments lymphocyte count, blood, 1.4 X10E3/UL 0.7-3.1 automated (test code = 731-0) Count Includes [facility] HospitalAbsolute Ethywzbmcmo3462-88-57 10:25:00 Test Item Value Reference Range Interpretation Comments Absolute Neutrophils (test code 5.3 X10E3/UL 1.4-7.0 = 70951-5) [facility] zmifscboke7431-47-57 10:25:00 Test Item Value Reference Range Interpretation Comments basophils as percent of blood 0 % leukocytes (test code = 707-0) [facility] Healtheosinophils as percent of blood xdjictbtyj6448-46-33 10:25:00 Test Item Value Reference Range Interpretation Comments eosinophils as percent of blood 1 % leukocytes (test code = 713-8) [facility] Healthmonocytes as percent of blood lrayzeplqh9084-94-62 10:25:00 Test Item Value Reference Range Interpretation Comments monocytes as percent of blood 5 % leukocytes (test code = 5905-5) Count Includes [facility] Hospitallymphocytes as percent of blood ytdqaxywlo0289-09-21 10:25:00 Test Item Value Reference Range Interpretation Comments lymphocytes as percent of blood 19 % leukocytes (test code = 736-9) Count Includes [facility] Hospitalneutrophils as percent of blood fzroccbztq7230-05-63 10:25:00 Test Item Value Reference Range Interpretation Comments neutrophils as percent of blood 75 % leukocytes (test code = 770-8) Count Includes [facility] Hospitalplatelet mcjxl4894-41-09 10:25:00 Test Item Value Reference Range Interpretation Comments platelet count (test code = 227 X10E3/UL 150-450 777-3) Count Includes [facility] Hospitalred blood cell distribution zltaq7097-16-23 10:25:00 Test Item Value Reference Range Interpretation Comments red blood cell distribution width 13.4 % 12.3-15.4 (test code = 788-0) [facility] corpuscular hemoglobin concentration, [id number] 10:25:00 Test Item Value Reference Range Interpretation Comments mean corpuscular hemoglobin 34.2 G/DL 31.5-35.7 concentration, RBC (test code = 786-4) [facility] [id number] 10:25:00 Test Item Value Reference Range Interpretation Comments mean corpuscular hemoglobin, RBC 34.8 pg 26.6-33.0 H (test code = 785-6) [facility] corpuscular volume, [id number] 10:25:00 Test Item Value Reference Range Interpretation Comments mean corpuscular volume, RBC (test 102 fL 79-97 H code = 787-2) Count Includes [facility] Hospitalhematocrit, ipzzr4183-39-07 10:25:00 Test Item Value Reference Range Interpretation Comments hematocrit, blood (test code = 4544-3) 42.7 % 34.0-46.6 Count Includes [facility] Hospitalhemoglobin, elcxk7526-33-52 10:25:00 Test Item Value Reference Range Interpretation Comments hemoglobin, blood (test code = 14.6 g/dL 11.1-15.9 718-7) Count Includes [facility] Hospitalerythrocyte (RBC) zxrgt4265-17-47 10:25:00 Test Item Value Reference Range Interpretation Comments erythrocyte (RBC) count (test 4.20 X10E6/UL 3.77-5.28 code = 789-8) Count Includes [facility] Hospitalleukocyte count, vkxct6697-24-30 10:25:00 Test Item Value Reference Range Interpretation Comments leukocyte count, blood (test 7.1 X10E3/UL 3.4-10.8 code = 6690-2) Count Includes [facility] HospitalCD4/CD8 jpdwl7201-71-41 10:25:00 Test Item Value Reference Range Interpretation Comments CD4/CD8 ratio (test code = 74447) 1.00 0.92-3.72 Count Includes [facility] HospitalT-suppressor cells (CD8) as percent of blood lymphocytes 2019-06-07 10:25:00 Test Item Value Reference Range Interpretation Comments T-suppressor cells (CD8) as percent of 27.5 % 12.0-35.5 blood lymphocytes (test code = 3517) Count Includes [facility] Hospitalabsolute [id number] 10:25:00 Test Item Value Reference Range Interpretation Comments absolute CD8 (test code = 47213) 385 109-897 Count Includes [facility] HospitalT-helper cells (CD4) as percent of blood lymphocytes 2019-06-07 10:25:00 Test Item Value Reference Range Interpretation Comments T-helper cells (CD4) as percent of 27.5 % 30.8-58.5 L blood lymphocytes (test code = 8123-2) Count Includes [facility] HospitalT-helper cells (CD4) euorv8035-90-82 10:25:00 Test Item Value Reference Range Interpretation Comments T-helper cells (CD4) count (test code 385 /UL 359-1519 = 95336-5) Count Includes [facility] Hospitalrapid plasma reagin antibody, kbtiv0231-37-25 08:54:00 Test Item Value Reference Range Interpretation Comments rapid plasma reagin antibody, Non Reactive Non Reactive serum (test code = 5291-0) Count Includes [facility] HospitalHIV-1RNA, serum, by PCR, jjtlpzrjriei1598-26-84 08:54:00 Test Item Value Reference Range Interpretation Comments HIV-1RNA, serum, by PCR, <20 copies/mL quantitative (test code = 82603) Count Includes [facility] Hospitalalanine aminotransferase (SGPT), vwbpz6899-69-64 08:54:00 Test Item Value Reference Range Interpretation Comments alanine aminotransferase (SGPT), serum 12 1/L 0-32 (test code = 1742-6) Count Includes [facility] Hospitalaspartate aminotransferase (SGOT), hcngu6109-64-01 08:54:00 Test Item Value Reference Range Interpretation Comments aspartate aminotransferase (SGOT), 12 1/L 0-40 serum (test code = 1920-8) Count Includes [facility] Hospitalalkaline phosphatase, nahnq9684-62-66 08:54:00 Test Item Value Reference Range Interpretation Comments alkaline phosphatase, serum (test 109 1/L 39-117 code = 1783-0) Count Includes [facility] Hospitalbilirubin, serum, iolfr8698-58-20 08:54:00 Test Item Value Reference Range Interpretation Comments bilirubin, serum, total (test code 0.2 mg/dL 0.0-1.2 = 1975-2) Count Includes [facility] Hospitalalbumin/globulin ratio, dqhco9235-19-23 08:54:00 Test Item Value Reference Range Interpretation Comments albumin/globulin ratio, serum (test 1.5 1.2-2.2 code = 1759-0) [facility] Healthglobulin, ovmuq1587-05-57 08:54:00 Test Item Value Reference Range Interpretation Comments globulin, serum (test code = 2336-6) 2.6 1.5-4.5 [facility] Healthalbumin, jymue1876-77-63 08:54:00 Test Item Value Reference Range Interpretation Comments albumin, serum (test code = 1751-7) 4.0 g/dL 3.5-5.5 Count Includes [facility] Hospitalprotein, total, pyclo8093-29-82 08:54:00 Test Item Value Reference Range Interpretation Comments protein, total, serum (test code = 6.6 g/dL 6.0-8.5 2885-2) Count Includes [facility] Hospitalcalcium, rzups5562-48-79 08:54:00 Test Item Value Reference Range Interpretation Comments calcium, serum (test code = 1999-8) 9.3 mg/dL 8.7-10.2 Count Includes [facility] Hospitalcarbon dioxide, venous aokqt6004-80-59 08:54:00 Test Item Value Reference Range Interpretation Comments carbon dioxide, venous blood (test 26 mmol/L 20-29 code = 2026-1) Count Includes [facility] Hospitalchloride, wlmqb0242-27-14 08:54:00 Test Item Value Reference Range Interpretation Comments chloride, serum (test code = 102 mmol/L 96-106 5-0) [facility] Healthpotassium, likeo2211-01-98 08:54:00 Test Item Value Reference Range Interpretation Comments potassium, serum (test code = 4.8 mmol/L 3.5-5.2 2823-3) Count Includes [facility] Hospitalsodium, lvuxl8998-59-33 08:54:00 Test Item Value Reference Range Interpretation Comments sodium, serum (test code = 2951-2) 143 mmol/L 134-144 Count Includes [facility] Hospitalurea nitrogen/creatinine ratio, qktpp0105-74-35 08:54:00 Test Item Value Reference Range Interpretation Comments urea nitrogen/creatinine ratio, serum 11 9-23 (test code = 3097-3) [facility] HealtheGFR if Qcmtfkmi0811-35-34 08:54:00 Test Item Value Reference Range Interpretation Comments eGFR if 113 >59 (test code = 37002-6) mL/min/((173/100).m2) Count Includes [facility] HospitalEstimated Glomerular Filtration Rate (calc)2019-02-08 08:54:00 Test Item Value Reference Range Interpretation Comments Estimated Glomerular 98 >59 Filtration Rate (calc) mL/min/((173/100).m2 (test code = 62601-1) ) Count Includes [facility] Hospitalcreatinine, [id number] 08:54:00 Test Item Value Reference Range Interpretation Comments creatinine, serum (test code = 0.64 mg/dL 0.57-1.00 2160-0) Count Includes [facility] Hospitalurea nitrogen, dvxnz7042-58-86 08:54:00 Test Item Value Reference Range Interpretation Comments urea nitrogen, blood (test code = 7 mg/dL 6-24 3094-0) Count Includes [facility] Hospitalblood glucose, [id number] 08:54:00 Test Item Value Reference Range Interpretation Comments blood glucose, random (test code = 157 mg/dL 65-99 H 2339-0) Count Includes [facility] Hospitalimmature granulocytes, percentage of total cells, blood 2019-02-08 08:54:00 Test Item Value Reference Range Interpretation Comments immature granulocytes, percentage of 0 % total cells, blood (test code = 01242-3) Count Includes [facility] Hospitalbasophil count, bnoltptk9048-97-89 08:54:00 Test Item Value Reference Range Interpretation Comments basophil count, absolute (test 0.0 x10E3/uL 0.0-0.2 code = 70022-4) Count Includes [facility] HospitalEosinophil Absolute Fpada2228-36-91 08:54:00 Test Item Value Reference Range Interpretation Comments Eosinophil Absolute Count (test 0.2 X10E3/UL 0.0-0.4 code = 69455-3) Count Includes [facility] Hospitalmonocyte count, blood, vuhgjxwug6507-07-09 08:54:00 Test Item Value Reference Range Interpretation Comments monocyte count, blood, automated 0.6 X10E3/UL 0.1-0.9 (test code = 742-7) Count Includes [facility] Hospitallymphocyte count, blood, nxlkhezep3146-38-29 08:54:00 Test Item Value Reference Range Interpretation Comments lymphocyte count, blood, 1.2 X10E3/UL 0.7-3.1 automated (test code = 731-0) Count Includes [facility] HospitalAbsolute Ciyzdwhybph8904-83-27 08:54:00 Test Item Value Reference Range Interpretation Comments Absolute Neutrophils (test code 6.1 X10E3/UL 1.4-7.0 = 49344-1) Count Includes [facility] Hospitalbasophils as percent of blood qtnxazwijk6461-00-57 08:54:00 Test Item Value Reference Range Interpretation Comments basophils as percent of blood 0 % leukocytes (test code = 707-0) Count Includes [facility] Hospitaleosinophils as percent of blood ajlvvaleak4223-30-26 08:54:00 Test Item Value Reference Range Interpretation Comments eosinophils as percent of blood 2 % leukocytes (test code = 713-8) Count Includes [facility] Hospitalmonocytes as percent of blood ymdnexfbot6704-85-17 08:54:00 Test Item Value Reference Range Interpretation Comments monocytes as percent of blood 8 % leukocytes (test code = 5905-5) Count Includes [facility] Hospitallymphocytes as percent of blood mrrvcpllgp5711-24-73 08:54:00 Test Item Value Reference Range Interpretation Comments lymphocytes as percent of blood 14 % leukocytes (test code = 736-9) Count Includes [facility] Hospitalneutrophils as percent of blood ncyamrtbqf8768-06-59 08:54:00 Test Item Value Reference Range Interpretation Comments neutrophils as percent of blood 76 % leukocytes (test code = 770-8) Count Includes [facility] Hospitalplatelet ymlsy7894-85-41 08:54:00 Test Item Value Reference Range Interpretation Comments platelet count (test code = 213 X10E3/UL 150-379 777-3) Count Includes [facility] Hospitalred blood cell distribution iuipv9984-78-48 08:54:00 Test Item Value Reference Range Interpretation Comments red blood cell distribution width 13.6 % 12.3-15.4 (test code = 788-0) [facility] corpuscular hemoglobin concentration, [id number] 08:54:00 Test Item Value Reference Range Interpretation Comments mean corpuscular hemoglobin 33.7 G/DL 31.5-35.7 concentration, RBC (test code = 786-4) [facility] corpuscular hemoglobin, [id number] 08:54:00 Test Item Value Reference Range Interpretation Comments mean corpuscular hemoglobin, RBC 33.9 pg 26.6-33.0 H (test code = 785-6) [facility] corpuscular volume, [id number] 08:54:00 Test Item Value Reference Range Interpretation Comments mean corpuscular volume, RBC (test 101 fL 79-97 H code = 787-2) Count Includes [facility] Hospitalhematocrit, wcvau3925-75-50 08:54:00 Test Item Value Reference Range Interpretation Comments hematocrit, blood (test code = 4544-3) 43.3 % 34.0-46.6 Count Includes [facility] Hospitalhemoglobin, zmnra0377-55-11 08:54:00 Test Item Value Reference Range Interpretation Comments hemoglobin, blood (test code = 14.6 g/dL 11.1-15.9 718-7) Count Includes [facility] Hospitalerythrocyte (RBC) [id number] 08:54:00 Test Item Value Reference Range Interpretation Comments erythrocyte (RBC) count (test 4.31 X10E6/UL 3.77-5.28 code = 789-8) Count Includes [facility] Hospitalleukocyte count, uapdx0771-58-00 08:54:00 Test Item Value Reference Range Interpretation Comments leukocyte count, blood (test 8.0 X10E3/UL 3.4-10.8 code = 6690-2) Count Includes [facility] HospitalCD4/CD8 uielp9474-76-34 08:54:00 Test Item Value Reference Range Interpretation Comments CD4/CD8 ratio (test code = 29405) 1.08 0.92-3.72 Count Includes [facility] HospitalT-suppressor cells (CD8) as percent of blood lymphocytes 2019-02-08 08:54:00 Test Item Value Reference Range Interpretation Comments T-suppressor cells (CD8) as percent of 28.6 % 12.0-35.5 blood lymphocytes (test code = 3517) Count Includes [facility] Hospitalabsolute [id number] 08:54:00 Test Item Value Reference Range Interpretation Comments absolute CD8 (test code = 46043) 343 109-897 Count Includes [facility] HospitalT-helper cells (CD4) as percent of blood lymphocytes 2019-02-08 08:54:00 Test Item Value Reference Range Interpretation Comments T-helper cells (CD4) as percent of 30.9 % 30.8-58.5 blood lymphocytes (test code = 8123-2) Count Includes [facility] HospitalT-helper cells (CD4) zlpvv3623-63-09 08:54:00 Test Item Value Reference Range Interpretation Comments T-helper cells (CD4) count (test code 371 /UL 359-1519 = 95183-9) Count Includes [facility] HospitalLDL cholesterol, rolqs7701-92-29 08:51:00 Test Item Value Reference Range Interpretation Comments LDL cholesterol, serum (test code = 45 mg/dL 0-99 9-1) Count Includes [facility] Hospitalvery low density ajyuixpkmfpl2372-78-99 08:51:00 Test Item Value Reference Range Interpretation Comments very low density lipoproteins (test 38 mg/dL 5-40 code = 1-7) Count Includes [facility] HospitalHDL cholesterol, yiflj3878-63-73 08:51:00 Test Item Value Reference Range Interpretation Comments HDL cholesterol, serum (test code = 36 mg/dL >39 L 2084-9) Count Includes [facility] Hospitaltriglyceride, serum, zjvfubw1060-36-86 08:51:00 Test Item Value Reference Range Interpretation Comments triglyceride, serum, fasting (test 188 mg/dL 0-149 H code = 2571-8) Count Includes [facility] Hospitalcholesterol, bxgnz1186-68-47 08:51:00 Test Item Value Reference Range Interpretation Comments cholesterol, serum (test code = 119 mg/dL 781-055 0775-3) Count Includes [facility] HospitalBASIC METABOLIC [id number] 02:25:00 Test Item Value Reference Range Interpretation [...] code = 8.4 mg/dL 8.0-10.5 N [place]) [facility] PHONE# for [phone]-[phone] or [phone] PHONE , FAX# cbc W/AUTO BUNY7844-73-40 02:13:00 Test Item Value Reference Range Interpretation [...] code NO = MDIFF) BHARATHI PHONE# for [phone] or [phone] PHONE [phone], FAX# Quantiferon Gold TB blood test for tuberculosis dhjmdpkle3191-39-97 10:19:59 Test Item Value Reference Range Interpretation Comments Quantiferon Gold TB blood test for negative tuberculosis screening (test code = 27475-3) Count Includes [facility] HospitalQuantiferon Gold TB blood test for tuberculosis screening 2018-09-26 08:58:00 Test Item Value Reference Range Interpretation Comments Quantiferon Gold TB blood test for Negative Negative tuberculosis screening (test code = 72318-6) Count Includes [facility] Hospitalhepatitis C antibody, zpltl8510-76-73 08:52:00 Test Item Value Reference Range Interpretation Comments hepatitis C antibody, serum (test code 0.3 0.0-0.9 = 5199-5) Count Includes [facility] Hospitalrapid plasma reagin antibody, mznbm3727-94-65 08:52:00 Test Item Value Reference Range Interpretation Comments rapid plasma reagin antibody, Non Reactive Non Reactive serum (test code = 5291-0) Count Includes [facility] HospitalHIV-1RNA, serum, by PCR, szoektrrsqkr2903-67-37 08:52:00 Test Item Value Reference Range Interpretation Comments HIV-1RNA, serum, by PCR, <20 copies/mL quantitative (test code = 98082) Count Includes [facility] HospitalLDL cholesterol, [id number] 08:52:00 Test Item Value Reference Range Interpretation Comments LDL cholesterol, serum (test code = 69 mg/dL 0-99 2088-1) Count Includes [facility] Hospitalvery low density jymdchbkoqup1737-58-32 08:52:00 Test Item Value Reference Range Interpretation Comments very low density lipoproteins (test 29 mg/dL 5-40 code = 1-7) Count Includes [facility] HospitalHDL cholesterol, [id number] 08:52:00 Test Item Value Reference Range Interpretation Comments HDL cholesterol, serum (test code = 41 mg/dL >39 2084-9) Count Includes [facility] Hospitaltriglyceride, serum, mugtjkn0566-13-03 08:52:00 Test Item Value Reference Range Interpretation Comments triglyceride, serum, fasting (test 143 mg/dL 0-149 code = 9561-8) Count Includes [facility] Hospitalcholesterol, [id number] 08:52:00 Test Item Value Reference Range Interpretation Comments cholesterol, serum (test code = 139 mg/dL 704-411 5673-3) Count Includes [facility] Hospitalalanine aminotransferase (SGPT), bzuov5412-90-42 08:52:00 Test Item Value Reference Range Interpretation Comments alanine aminotransferase (SGPT), serum 11 1/L 0-32 (test code = 1742-6) Count Includes [facility] Hospitalaspartate aminotransferase (SGOT), klsrp0893-70-19 08:52:00 Test Item Value Reference Range Interpretation Comments aspartate aminotransferase (SGOT), 12 1/L 0-40 serum (test code = 1920-8) Count Includes [facility] Hospitalalkaline phosphatase, [id number] 08:52:00 Test Item Value Reference Range Interpretation Comments alkaline phosphatase, serum (test 141 1/L 39-117 H code = 1783-0) Count Includes [facility] Hospitalbilirubin, serum, nhbja9901-41-02 08:52:00 Test Item Value Reference Range Interpretation Comments bilirubin, serum, total (test code 0.3 mg/dL 0.0-1.2 = 1975-2) Count Includes [facility] Hospitalalbumin/globulin ratio, uhqji3497-04-36 08:52:00 Test Item Value Reference Range Interpretation Comments albumin/globulin ratio, serum (test 1.7 1.2-2.2 code = 1759-0) [facility] Healthglobulin, rlsdz0757-45-26 08:52:00 Test Item Value Reference Range Interpretation Comments globulin, serum (test code = 2336-6) 2.5 1.5-4.5 [facility] Healthalbumin, [id number] 08:52:00 Test Item Value Reference Range Interpretation Comments albumin, serum (test code = 1751-7) 4.2 g/dL 3.5-5.5 Count Includes [facility] Hospitalprotein, total, yaijl4462-85-00 08:52:00 Test Item Value Reference Range Interpretation Comments protein, total, serum (test code = 6.7 g/dL 6.0-8.5 2885-2) Count Includes [facility] Hospitalcalcium, slzjn1883-63-98 08:52:00 Test Item Value Reference Range Interpretation Comments calcium, serum (test code = 2000-8) 9.4 mg/dL 8.7-10.2 Count Includes [facility] Hospitalcarbon dioxide, venous czjtp1619-40-23 08:52:00 Test Item Value Reference Range Interpretation Comments carbon dioxide, venous blood (test 26 mmol/L code = 2026-1) Count Includes [facility] Hospitalchloride, bfgxb2723-97-16 08:52:00 Test Item Value Reference Range Interpretation Comments chloride, serum (test code = 98 mmol/L 96-106 2075-0) [facility] Healthpotassium, [id number] 08:52:00 Test Item Value Reference Range Interpretation Comments potassium, serum (test code = 4.4 mmol/L 3.5-5.2 2823-3) Count Includes [facility] Hospitalsodium, hkewy0993-63-98 08:52:00 Test Item Value Reference Range Interpretation Comments sodium, serum (test code = 2951-2) 140 mmol/L 134-144 Count Includes [facility] Hospitalurea nitrogen/creatinine ratio, eubmz1964-42-75 08:52:00 Test Item Value Reference Range Interpretation Comments urea nitrogen/creatinine ratio, serum 12 9-23 (test code = 3097-3) [facility] HealtheGFR if Bhydqask2347-93-88 08:52:00 Test Item Value Reference Range Interpretation Comments eGFR if 98 >59 (test code = 19289-8) mL/min/((173/100).m2) Count Includes [facility] HospitalEstimated Glomerular Filtration Rate (calc)2018-09-26 08:52:00 Test Item Value Reference Range Interpretation Comments Estimated Glomerular 85 >59 Filtration Rate (calc) mL/min/((173/100).m2 (test code = 85270-0) ) Count Includes [facility] Hospitalcreatinine, [id number] 08:52:00 Test Item Value Reference Range Interpretation Comments creatinine, serum (test code = 0.77 mg/dL 0.57-1.00 2160-0) Count Includes [facility] Hospitalurea nitrogen, zmdfw4917-48-94 08:52:00 Test Item Value Reference Range Interpretation Comments urea nitrogen, blood (test code = 9 mg/dL 6-24 3094-0) Count Includes [facility] Hospitalblood glucose, vsaisw8813-47-21 08:52:00 Test Item Value Reference Range Interpretation Comments blood glucose, random (test code = 129 mg/dL 65-99 H 2339-0) Count Includes [facility] Hospitalimmature granulocytes, percentage of total cells, blood 2018-09-26 08:52:00 Test Item Value Reference Range Interpretation Comments immature granulocytes, percentage of 0 % total cells, blood (test code = 86392-3) [facility] Healthbasophil count, nqllwlrb5625-02-02 08:52:00 Test Item Value Reference Range Interpretation Comments basophil count, absolute (test 0.0 x10E3/uL 0.0-0.2 code = 11191-8) [facility] HealthEosinophil Absolute Hrepo1742-34-22 08:52:00 Test Item Value Reference Range Interpretation Comments Eosinophil Absolute Count (test 0.2 X10E3/UL 0.0-0.4 code = 60248-2) Count Includes [facility] Hospitalmonocyte count, blood, okbrnyjph7750-47-31 08:52:00 Test Item Value Reference Range Interpretation Comments monocyte count, blood, automated 0.6 X10E3/UL 0.1-0.9 (test code = 742-7) [facility], blood, kckmflrkn4751-39-36 08:52:00 Test Item Value Reference Range Interpretation Comments lymphocyte count, blood, 1.7 X10E3/UL 0.7-3.1 automated (test code = 731-0) [facility] HospitalAbsolute Nbdjqeniiyk1328-79-29 08:52:00 Test Item Value Reference Range Interpretation Comments Absolute Neutrophils (test code 4.3 X10E3/UL 1.4-7.0 = 88503-9) Count [facility]basophils as percent of blood fwgnjapziv3208-46-49 08:52:00 Test Item Value Reference Range Interpretation Comments basophils as percent of blood 0 % leukocytes (test code = 707-0) [facility] Healtheosinophils as percent of blood wbocjyzkob5512-92-62 08:52:00 Test Item Value Reference Range Interpretation Comments eosinophils as percent of blood 3 % leukocytes (test code = 713-8) [facility] Healthmonocytes as percent of blood rxiksdrfov7589-00-47 08:52:00 Test Item Value Reference Range Interpretation Comments monocytes as percent of blood 8 % leukocytes (test code = 5905-5) Count [facility]cludes [facility]allymphocytes as percent of blood oqtbcfyhsv8046-24-34 08:52:00 Test Item Value Reference Range Interpretation Comments lymphocytes as percent of blood 25 % leukocytes (test code = 736-9) Count [facility] Hospitalneutrophils as percent of blood pelcqdoilw1098-69-10 08:52:00 Test Item Value Reference Range Interpretation Comments neutrophils as percent of blood 64 % leukocytes (test code = 770-8) Count [facility] Hospitalplatelet qzjmt2082-46-96 08:52:00 Test Item Value Reference Range Interpretation Comments platelet count (test code = 173 X10E3/UL 150-379 777-3) Count [facility] Hospitalred blood cell distribution pqtqh7115-89-08 08:52:00 Test Item Value Reference Range Interpretation Comments red blood cell distribution width 12.4 % 12.3-15.4 (test code = 788-0) [facility] corpuscular hemoglobin concentration, [id number] 08:52:00 Test Item Value Reference Range Interpretation Comments mean corpuscular hemoglobin 34.0 G/DL 31.5-35.7 concentration, RBC (test code = 786-4) [facility], [id number] 08:52:00 Test Item Value Reference Range Interpretation Comments mean corpuscular hemoglobin, RBC 34.7 pg 26.6-33.0 H (test code = 785-6) [facility] corpuscular volume, [id number] 08:52:00 Test Item Value Reference Range Interpretation Comments mean corpuscular volume, RBC (test 102 fL 79-97 H code = 787-2) [facility] Hospitalhematocrit, [id number] 08:52:00 Test Item Value Reference Range Interpretation Comments hematocrit, blood (test code = 4544-3) 40.9 % 34.0-46.6 Count [facility] Hospitalhemoglobin, bubqf7923-90-30 08:52:00 Test Item Value Reference Range Interpretation Comments hemoglobin, blood (test code = 13.9 g/dL 11.1-15.9 718-7) Count [facility] Hospitalerythrocyte (RBC) juagh7008-19-96 08:52:00 Test Item Value Reference Range Interpretation Comments erythrocyte (RBC) count (test 4.01 X10E6/UL 3.77-5.28 code = 789-8) Count [facility] Hospitalleukocyte count, [id number] 08:52:00 Test Item Value Reference Range Interpretation Comments leukocyte count, blood (test 6.8 X10E3/UL 3.4-10.8 code = 6690-2) Count [facility]cludes [facility] HospitalCD4/CD8 acapg3167-17-05 08:52:00 Test Item Value Reference Range Interpretation Comments CD4/CD8 ratio (test code = 65330) 0.98 0.92-3.72 Count [facility]cludes [facility] HospitalT-suppressor cells (CD8) as percent of blood lymphocytes 2018-09-26 08:52:00 Test Item Value Reference Range Interpretation Comments T-suppressor cells (CD8) as percent of 26.4 % 12.0-35.5 blood lymphocytes (test code = 3517) Count [facility]cludes [facility] Hospitalabsolute [id number] 08:52:00 Test Item Value Reference Range Interpretation Comments absolute CD8 (test code = 29700) 449 109-897 Count [facility] HospitalT-helper cells (CD4) as percent of blood lymphocytes 2018-09-26 08:52:00 Test Item Value Reference Range Interpretation Comments T-helper cells (CD4) as percent of 25.9 % 30.8-58.5 L blood lymphocytes (test code = 8123-2) Count [facility] HospitalT-helper cells (CD4) ukjhi9715-25-48 08:52:00 Test Item Value Reference Range Interpretation Comments T-helper cells (CD4) count (test code 440 /UL 359-1519 = 24814-1) Count Includes [facility] Hospitalrapid plasma reagin antibody, [id number] 09:22:00 Test Item Value Reference Range Interpretation Comments rapid plasma reagin antibody, Non Reactive Non Reactive serum (test code = 5291-0) Count [facility]cludes [facility] HospitalHIV-1RNA, serum, by PCR, kfpdufsybzqz1960-38-97 09:22:00 Test Item Value Reference Range Interpretation Comments HIV-1RNA, serum, by PCR, <20 copies/mL quantitative (test code = 84328) Count Includes [facility] HospitalLDL cholesterol, jvtgz8592-22-76 09:22:00 Test Item Value Reference Range Interpretation Comments LDL cholesterol, serum (test code = 63 mg/dL 0-99 2088-1) Count [facility] Hospitalvery low density qqycxcpyytqh9944-00-17 09:22:00 Test Item Value Reference Range Interpretation Comments very low density lipoproteins (test 53 mg/dL 5-40 H code = 1-7) Count [facility] HospitalHDL cholesterol, fwmnc0360-19-33 09:22:00 Test Item Value Reference Range Interpretation Comments HDL cholesterol, serum (test code = 38 mg/dL >39 L 2084-9) Count [facility] Hospitaltriglyceride, serum, etoxjuk8590-36-08 09:22:00 Test Item Value Reference Range Interpretation Comments triglyceride, serum, fasting (test 265 mg/dL 0-149 H code = 2571-8) Count [facility] Hospitalcholesterol, [id number] 09:22:00 Test Item Value Reference Range Interpretation Comments cholesterol, serum (test code = 154 mg/dL 474-688 6821-3) Count [facility] Hospitalalanine aminotransferase (SGPT), myxoq4231-52-73 09:22:00 Test Item Value Reference Range Interpretation Comments alanine aminotransferase (SGPT), serum 6 1/L 0-32 (test code = 1742-6) Count Includes [facility] Hospitalaspartate aminotransferase (SGOT), fmhby0135-73-14 09:22:00 Test Item Value Reference Range Interpretation Comments aspartate aminotransferase (SGOT), 8 1/L 0-40 serum (test code = 1920-8) Count [facility] Hospitalalkaline phosphatase, [id number] 09:22:00 Test Item Value Reference Range Interpretation Comments alkaline phosphatase, serum (test code 93 1/L 39-117 = 1783-0) [facility] Hospitalbilirubin, serum, ouabn1229-07-84 09:22:00 Test Item Value Reference Range Interpretation Comments bilirubin, serum, total (test code 0.2 mg/dL 0.0-1.2 = 1975-2) Count [facility] Hospitalalbumin/globulin ratio, [id number] 09:22:00 Test Item Value Reference Range Interpretation Comments albumin/globulin ratio, serum (test 1.3 1.2-2.2 code = 1759-0) Count [facility] Hospitalglobulin, qkklg0417-43-28 09:22:00 Test Item Value Reference Range Interpretation Comments globulin, serum (test code = 2336-6) 3.1 1.5-4.5 [facility] Healthalbumin, [id number] 09:22:00 Test Item Value Reference Range Interpretation Comments albumin, serum (test code = 1751-7) 4.0 g/dL 3.5-5.5 Count [facility] Hospitalprotein, total, [id number] 09:22:00 Test Item Value Reference Range Interpretation Comments protein, total, serum (test code = 7.1 g/dL 6.0-8.5 2885-2) [facility] Healthcalcium, [id number] 09:22:00 Test Item Value Reference Range Interpretation Comments calcium, serum (test code = 1999-8) 9.6 mg/dL 8.7-10.2 Count Includes [facility] Hospitalcarbon dioxide, venous qwyvv8085-38-90 09:22:00 Test Item Value Reference Range Interpretation Comments carbon dioxide, venous blood (test 28 mmol/L 18-29 code = 7-1) [facility] Healthchloride, [id number] 09:22:00 Test Item Value Reference Range Interpretation Comments chloride, serum (test code = 98 mmol/L 96-106 2075-0) Count [facility] Hospitalpotassium, [id number] 09:22:00 Test Item Value Reference Range Interpretation Comments potassium, serum (test code = 4.5 mmol/L 3.5-5.2 2823-3) Count [facility]cludes [facility] Hospitalsodium, [id number] 09:22:00 Test Item Value Reference Range Interpretation Comments sodium, serum (test code = 2951-2) 140 mmol/L 134-144 Count Includes [facility] Hospitalurea nitrogen/creatinine ratio, fqriy4177-85-87 09:22:00 Test Item Value Reference Range Interpretation Comments urea nitrogen/creatinine ratio, serum 12 9-23 (test code = 3097-3) Count Includes [facility] HospitaleGFR if Rwwfnqev4841-60-51 09:22:00 Test Item Value Reference Range Interpretation Comments eGFR if 111 >59 (test code = 08351-6) mL/min/((173/100).m2) Count Includes [facility] HospitalEstimated Glomerular Filtration Rate (calc)2018-02-07 09:22:00 Test Item Value Reference Range Interpretation Comments Estimated Glomerular 96 >59 Filtration Rate (calc) mL/min/((173/100).m2 (test code = 60003-2) ) Count [facility] Hospitalcreatinine, [id number] 09:22:00 Test Item Value Reference Range Interpretation Comments creatinine, serum (test code = 0.69 mg/dL 0.57-1.00 2160-0) Count Includes [facility] Hospitalurea nitrogen, [id number] 09:22:00 Test Item Value Reference Range Interpretation Comments urea nitrogen, blood (test code = 8 mg/dL 6-24 3094-0) Count Includes [facility] Hospitalblood glucose, [id number] 09:22:00 Test Item Value Reference Range Interpretation Comments blood glucose, random (test code = 154 mg/dL 65-99 H 2339-0) Count Includes [facility] Hospitalimmature granulocytes, percentage of total cells, blood 2018-02-07 09:22:00 Test Item Value Reference Range Interpretation Comments immature granulocytes, percentage of 0 % total cells, blood (test code = 02461-3) Count Includes [facility] Hospitalbasophil count, rufekvel8113-34-09 09:22:00 Test Item Value Reference Range Interpretation Comments basophil count, absolute (test 0.0 x10E3/uL 0.0-0.2 code = 08127-0) Count Includes [facility] HospitalEosinophil Absolute Kxsgh5215-84-46 09:22:00 Test Item Value Reference Range Interpretation Comments Eosinophil Absolute Count (test 0.1 X10E3/UL 0.0-0.4 code = 66390-3) Count Includes [facility] Hospitalmonocyte count, blood, niqfhhksz5820-60-54 09:22:00 Test Item Value Reference Range Interpretation Comments monocyte count, blood, automated 0.4 X10E3/UL 0.1-0.9 (test code = 742-7) Count Includes [facility] Hospitallymphocyte count, blood, mvfuwcgbg3141-35-29 09:22:00 Test Item Value Reference Range Interpretation Comments lymphocyte count, blood, 1.4 X10E3/UL 0.7-3.1 automated (test code = 731-0) Count [facility] HospitalAbsolute Szgnxongxoj3203-14-89 09:22:00 Test Item Value Reference Range Interpretation Comments Absolute Neutrophils (test code 3.3 X10E3/UL 1.4-7.0 = 34665-6) [facility] Healthbasophils as percent of blood dniarsjlkm7510-67-46 09:22:00 Test Item Value Reference Range Interpretation Comments basophils as percent of blood 0 % leukocytes (test code = 707-0) Count [facility]cludes [facility] Hospitaleosinophils as percent of blood nraxvkweed0229-60-98 09:22:00 Test Item Value Reference Range Interpretation Comments eosinophils as percent of blood 2 % leukocytes (test code = 713-8) [facility] Healthmonocytes as percent of blood peqbwgpnnc5772-32-94 09:22:00 Test Item Value Reference Range Interpretation Comments monocytes as percent of blood 8 % leukocytes (test code = 5905-5) Count Includes [facility] Hospitallymphocytes as percent of blood mncaqtriug5566-08-36 09:22:00 Test Item Value Reference Range Interpretation Comments lymphocytes as percent of blood 26 % leukocytes (test code = 736-9) Count Includes [facility] Hospitalneutrophils as percent of blood idxwpwnsuz8688-73-78 09:22:00 Test Item Value Reference Range Interpretation Comments neutrophils as percent of blood 64 % leukocytes (test code = 770-8) Count [facility] Hospitalplatelet jomlz0719-03-43 09:22:00 Test Item Value Reference Range Interpretation Comments platelet count (test code = 194 X10E3/UL 150-379 777-3) Count In[facility] Hospitalred blood cell distribution dxzbn2748-70-79 09:22:00 Test Item Value Reference Range Interpretation Comments red blood cell distribution width 14.1 % 12.3-15.4 (test code = 788-0) [facility] corpuscular hemoglobin concentration, [id number] 09:22:00 Test Item Value Reference Range Interpretation Comments mean corpuscular hemoglobin 33.9 G/DL 31.5-35.7 concentration, RBC (test code = 786-4) [facility], [id number] 09:22:00 Test Item Value Reference Range Interpretation Comments mean corpuscular hemoglobin, RBC 34.2 pg 26.6-33.0 H (test code = 785-6) [facility] corpuscular volume, [id number] 09:22:00 Test Item Value Reference Range Interpretation Comments mean corpuscular volume, RBC (test 101 fL 79-97 H code = 787-2) Count [facility] Hospitalhematocrit, dsmtl6504-15-55 09:22:00 Test Item Value Reference Range Interpretation Comments hematocrit, blood (test code = 4544-3) 41.3 % 34.0-46.6 Count Includes [facility] Hospitalhemoglobin, [id number] 09:22:00 Test Item Value Reference Range Interpretation Comments hemoglobin, blood (test code = 14.0 g/dL 11.1-15.9 718-7) Count Includes [facility] Hospitalerythrocyte (RBC) gxcta3810-98-65 09:22:00 Test Item Value Reference Range Interpretation Comments erythrocyte (RBC) count (test 4.09 X10E6/UL 3.77-5.28 code = 789-8) Count Includes [facility] Hospitalleukocyte count, rkujt6351-09-57 09:22:00 Test Item Value Reference Range Interpretation Comments leukocyte count, blood (test 5.1 X10E3/UL 3.4-10.8 code = 6690-2) Count Includes [facility] HospitalCD4/CD8 ltdxh6467-42-36 09:22:00 Test Item Value Reference Range Interpretation Comments CD4/CD8 ratio (test code = 64851) 0.85 0.92-3.72 L Count Includes [facility] HospitalT-suppressor cells (CD8) as percent of blood lymphocytes 2018-02-07 09:22:00 Test Item Value Reference Range Interpretation Comments T-suppressor cells (CD8) as percent of 29.5 % 12.0-35.5 blood lymphocytes (test code = 3517) Count Includes [facility] Hospitalabsolute [id number] 09:22:00 Test Item Value Reference Range Interpretation Comments absolute CD8 (test code = 20886) 413 109-897 Count Includes [facility] HospitalT-helper cells (CD4) as percent of blood lymphocytes 2018-02-07 09:22:00 Test Item Value Reference Range Interpretation Comments T-helper cells (CD4) as percent of 25.0 % 30.8-58.5 L blood lymphocytes (test code = 8123-2) Count [facility] HospitalT-helper cells (CD4) [id number] 09:22:00 Test Item Value Reference Range Interpretation Comments T-helper cells (CD4) count (test code 350 /UL 359-1519 L = 42043-0) Count Includes [facility] Hospitalrapid plasma reagin antibody, [id number] 10:27:00 Test Item Value Reference Range Interpretation Comments rapid plasma reagin antibody, Non Reactive Non Reactive serum (test code = 5291-0) Count Includes [facility] HospitalHIV-1RNA, serum, by PCR, mgjkrogigshd8530-37-29 10:27:00 Test Item Value Reference Range Interpretation Comments HIV-1RNA, serum, by PCR, quantitative 50 /mL (test code = 82813) Count Includes [facility] HospitalLDL cholesterol, hrlmu7619-84-52 10:27:00 Test Item Value Reference Range Interpretation Comments LDL cholesterol, serum (test code = 63 mg/dL 0-99 2088-1) Count Includes [facility] Hospitalvery low density ckcqgbwxwygo5850-06-91 10:27:00 Test Item Value Reference Range Interpretation Comments very low density lipoproteins (test 32 mg/dL 5-40 code = 2091-7) Count [facility] HospitalHDL cholesterol, suxnm9095-77-29 10:27:00 Test Item Value Reference Range Interpretation Comments HDL cholesterol, serum (test code = 47 mg/dL >39 2084-9) Count [facility] Hospitaltriglyceride, serum, arumcww9621-58-05 10:27:00 Test Item Value Reference Range Interpretation Comments triglyceride, serum, fasting (test 162 mg/dL 0-149 H code = 2571-8) Count [facility] Hospitalcholesterol, [id number] 10:27:00 Test Item Value Reference Range Interpretation Comments cholesterol, serum (test code = 142 mg/dL 617-920 1376-3) Count [facility] Hospitalalanine aminotransferase (SGPT), dgcax7331-38-03 10:27:00 Test Item Value Reference Range Interpretation Comments alanine aminotransferase (SGPT), serum 9 1/L 0-32 (test code = 1742-6) Count Includes [facility] Hospitalaspartate aminotransferase (SGOT), ghopu9058-43-88 10:27:00 Test Item Value Reference Range Interpretation Comments aspartate aminotransferase (SGOT), 9 1/L 0-40 serum (test code = 1920-8) Count [facility] Hospitalalkaline phosphatase, ssyie3354-18-09 10:27:00 Test Item Value Reference Range Interpretation Comments alkaline phosphatase, serum (test 100 1/L 39-117 code = 1783-0) [facility] Healthbilirubin, serum, [id number] 10:27:00 Test Item Value Reference Range Interpretation Comments bilirubin, serum, total (test code 0.3 mg/dL 0.0-1.2 = 1975-2) [facility] Healthalbumin/globulin ratio, hcnlo4969-15-51 10:27:00 Test Item Value Reference Range Interpretation Comments albumin/globulin ratio, serum (test 1.4 1.2-2.2 code = 1759-0) [facility] Healthglobulin, [id number] 10:27:00 Test Item Value Reference Range Interpretation Comments globulin, serum (test code = 2336-6) 2.9 1.5-4.5 [facility] Healthalbumin, [id number] 10:27:00 Test Item Value Reference Range Interpretation Comments albumin, serum (test code = 1751-7) 4.2 g/dL 3.5-5.5 [facility] Healthprotein, total, djehr9595-00-50 10:27:00 Test Item Value Reference Range Interpretation Comments protein, total, serum (test code = 7.1 g/dL 6.0-8.5 2885-2) Count [facility] Hospitalcalcium, [id number] 10:27:00 Test Item Value Reference Range Interpretation Comments calcium, serum (test code = 1999-8) 9.6 mg/dL 8.7-10.2 Count Includes [facility] Hospitalcarbon dioxide, venous sntfu3510-31-18 10:27:00 Test Item Value Reference Range Interpretation Comments carbon dioxide, venous blood (test 27 mmol/L 18-29 code = 2026-1) [facility] Healthchloride, fphxe0930-77-46 10:27:00 Test Item Value Reference Range Interpretation Comments chloride, serum (test code = 96 mmol/L 96-106 5-0) [facility] Healthpotassium, [id number] 10:27:00 Test Item Value Reference Range Interpretation Comments potassium, serum (test code = 5.1 mmol/L 3.5-5.2 2823-3) Count [facility] Hospitalsodium, kkzfa6680-34-49 10:27:00 Test Item Value Reference Range Interpretation Comments sodium, serum (test code = 2951-2) 138 mmol/L 134-144 Count Includes [facility] Hospitalurea nitrogen/creatinine ratio, imcxk2996-88-09 10:27:00 Test Item Value Reference Range Interpretation Comments urea nitrogen/creatinine ratio, serum 14 9-23 (test code = 3097-3) [facility] HealtheGFR if Sufnjeaf1921-80-03 10:27:00 Test Item Value Reference Range Interpretation Comments eGFR if 86 >59 (test code = 31841-5) mL/min/((173/100).m2) Count Includes [facility] HospitalEstimated Glomerular Filtration Rate (calc)2017-10-13 10:27:00 Test Item Value Reference Range Interpretation Comments Estimated Glomerular 74 >59 Filtration Rate (calc) mL/min/((173/100).m2 (test code = 04292-9) ) Count [facility] Hospitalcreatinine, [id number] 10:27:00 Test Item Value Reference Range Interpretation Comments creatinine, serum (test code = 0.87 mg/dL 0.57-1.00 2160-0) Count Includes [facility] Hospitalurea nitrogen, [id number] 10:27:00 Test Item Value Reference Range Interpretation Comments urea nitrogen, blood (test code = 12 mg/dL 6-24 3094-0) [facility] Hospitalblood glucose, rhesds4092-86-06 10:27:00 Test Item Value Reference Range Interpretation Comments blood glucose, random (test code = 119 mg/dL 65-99 H 2339-0) Count Includes [facility] Hospitalimmature granulocytes, percentage of total cells, blood 2017-10-13 10:27:00 Test Item Value Reference Range Interpretation Comments immature granulocytes, percentage of 0 % total cells, blood (test code = 59386-0) Count [facility] Hospitalbasophil count, jvhocdjb1547-19-83 10:27:00 Test Item Value Reference Range Interpretation Comments basophil count, absolute (test 0.0 x10E3/uL 0.0-0.2 code = 97641-9) Count Includes [facility] HospitalEosinophil Absolute Kafod4556-43-03 10:27:00 Test Item Value Reference Range Interpretation Comments Eosinophil Absolute Count (test 0.1 X10E3/UL 0.0-0.4 code = 35601-8) Count [facility] Hospitalmonocyte count, blood, dqbxetzai9336-66-89 10:27:00 Test Item Value Reference Range Interpretation Comments monocyte count, blood, automated 0.5 X10E3/UL 0.1-0.9 (test code = 742-7) Count Includes [facility] Hospitallymphocyte count, blood, gxrikfujk1647-30-68 10:27:00 Test Item Value Reference Range Interpretation Comments lymphocyte count, blood, 1.7 X10E3/UL 0.7-3.1 automated (test code = 731-0) Count [facility]cludes [facility] HospitalAbsolute Ghluilrchsz5010-69-88 10:27:00 Test Item Value Reference Range Interpretation Comments Absolute Neutrophils (test code 5.4 X10E3/UL 1.4-7.0 = 43165-3) Count [facility] Hospitalbasophils as percent of blood lhetbtqrdj0171-76-79 10:27:00 Test Item Value Reference Range Interpretation Comments basophils as percent of blood 0 % leukocytes (test code = 707-0) Count [facility]cludes [facility] Hospitaleosinophils as percent of blood qersfnlikp4638-08-39 10:27:00 Test Item Value Reference Range Interpretation Comments eosinophils as percent of blood 1 % leukocytes (test code = 713-8) [facility] Healthmonocytes as percent of blood gaulnfuqne6466-89-02 10:27:00 Test Item Value Reference Range Interpretation Comments monocytes as percent of blood 7 % leukocytes (test code = 5905-5) Count [facility]cludes [facility] Hospitallymphocytes as percent of blood qbfcfhmxpd4988-80-93 10:27:00 Test Item Value Reference Range Interpretation Comments lymphocytes as percent of blood 22 % leukocytes (test code = 736-9) Count [facility] Hospitalneutrophils as percent of blood tstrmnqeds8501-01-48 10:27:00 Test Item Value Reference Range Interpretation Comments neutrophils as percent of blood 70 % leukocytes (test code = 770-8) Count [facility] Hospitalplatelet lvgjz5494-29-89 10:27:00 Test Item Value Reference Range Interpretation Comments platelet count (test code = 193 X10E3/UL 150-379 777-3) Count [facility] Hospitalred blood cell distribution srmxd1642-67-18 10:27:00 Test Item Value Reference Range Interpretation Comments red blood cell distribution width 13.7 % 12.3-15.4 (test code = 788-0) [facility], [id number] 10:27:00 Test Item Value Reference Range Interpretation Comments mean corpuscular hemoglobin 35.0 G/DL 31.5-35.7 concentration, RBC (test code = 786-4) [facility]mean [facility] hemoglobin, [id number] 10:27:00 Test Item Value Reference Range Interpretation Comments mean corpuscular hemoglobin, RBC 35.6 pg 26.6-33.0 H (test code = 785-6) [facility]mean corpuscular volume, [id number] 10:27:00 Test Item Value Reference Range Interpretation Comments mean corpuscular volume, RBC (test 102 fL 79-97 H code = 787-2) [facility] Hospitalhematocrit, [id number] 10:27:00 Test Item Value Reference Range Interpretation Comments hematocrit, blood (test code = 4544-3) 43.7 % 34.0-46.6 Count [facility] Hospitalhemoglobin, [id number] 10:27:00 Test Item Value Reference Range Interpretation Comments hemoglobin, blood (test code = 15.3 g/dL 11.1-15.9 718-7) Count [facility] Hospitalerythrocyte (RBC) [id number] 10:27:00 Test Item Value Reference Range Interpretation Comments erythrocyte (RBC) count (test 4.30 X10E6/UL 3.77-5.28 code = 789-8) Count [facility] Hospitalleukocyte count, [id number] 10:27:00 Test Item Value Reference Range Interpretation Comments leukocyte count, blood (test 7.7 X10E3/UL 3.4-10.8 code = 6690-2) Count [facility] HospitalCD4/CD8 [id number] 10:27:00 Test Item Value Reference Range Interpretation Comments CD4/CD8 ratio (test code = 72187) 0.70 0.92-3.72 L Count [facility] HospitalT-suppressor cells (CD8) as percent of blood lymphocytes 2017-10-13 10:27:00 Test Item Value Reference Range Interpretation Comments T-suppressor cells (CD8) as percent of 27.8 % 12.0-35.5 blood lymphocytes (test code = 3517) Count [facility] Hospitalabsolute [id number] 10:27:00 Test Item Value Reference Range Interpretation Comments absolute CD8 (test code = 71249) 473 109-897 Count [facility] HospitalT-helper cells (CD4) as percent of blood lymphocytes 2017-10-13 10:27:00 Test Item Value Reference Range Interpretation Comments T-helper cells (CD4) as percent of 19.4 % 30.8-58.5 L blood lymphocytes (test code = 8123-2) Count [facility] HospitalT-helper cells (CD4) [id number] 10:27:00 Test Item Value Reference Range Interpretation Comments T-helper cells (CD4) count (test code 330 /UL 359-1519 L = 90279-0) [facility], [id number] 13:13:00 Test Item Value Reference Range Interpretation Comments rapid plasma reagin antibody, Non Reactive Non Reactive serum (test code = 5291-0) Count [facility] HospitalHIV-1RNA, serum, by PCR, [id number] 13:13:00 Test Item Value Reference Range Interpretation Comments HIV-1RNA, serum, by PCR, 68964 /mL quantitative (test code = 68621) Count [facility]cludes [facility] HospitalLDL cholesterol, [id number] 13:13:00 Test Item Value Reference Range Interpretation Comments LDL cholesterol, serum (test code = 38 mg/dL 0-99 2088-1) [facility] low density pvjomyoiywds3297-58-73 13:13:00 Test Item Value Reference Range Interpretation Comments very low density lipoproteins (test 24 mg/dL 5-40 code = 1-7) Count [facility] HospitalHDL cholesterol, [id number] 13:13:00 Test Item Value Reference Range Interpretation Comments HDL cholesterol, serum (test code = 36 mg/dL >39 L 5-9) Count [facility] Hospitaltriglyceride, serum, [id number] 13:13:00 Test Item Value Reference Range Interpretation Comments triglyceride, serum, fasting (test 119 mg/dL 0-149 code = 2571-8) Count [facility] Hospitalcholesterol, [id number] 13:13:00 Test Item Value Reference Range Interpretation Comments cholesterol, serum (test code = 98 mg/dL 100-199 L 3-3) Count [facility] Hospitalalanine aminotransferase (SGPT), [id number] 13:13:00 Test Item Value Reference Range Interpretation Comments alanine aminotransferase (SGPT), serum 19 1/L 0-32 (test code = 1742-6) Count Includes [facility] Hospitalaspartate aminotransferase (SGOT), [id number] 13:13:00 Test Item Value Reference Range Interpretation Comments aspartate aminotransferase (SGOT), 18 1/L 0-40 serum (test code = 1920-8) Count [facility] Hospitalalkaline phosphatase, [id number] 13:13:00 Test Item Value Reference Range Interpretation Comments alkaline phosphatase, serum (test 110 1/L 39-117 code = 1783-0) Count [facility] Hospitalbilirubin, serum, [id number] 13:13:00 Test Item Value Reference Range Interpretation Comments bilirubin, serum, total (test code 0.3 mg/dL 0.0-1.2 = 1975-2) Count [facility] Hospitalalbumin/globulin ratio, [id number] 13:13:00 Test Item Value Reference Range Interpretation Comments albumin/globulin ratio, serum (test 1.4 1.2-2.2 code = 1759-0) [facility] Healthglobulin, [id number] 13:13:00 Test Item Value Reference Range Interpretation Comments globulin, serum (test code = 2336-6) 2.7 1.5-4.5 [facility] Healthalbumin, [id number] 13:13:00 Test Item Value Reference Range Interpretation Comments albumin, serum (test code = 1751-7) 3.8 g/dL 3.5-5.5 Count [facility] Hospitalprotein, total, [id number] 13:13:00 Test Item Value Reference Range Interpretation Comments protein, total, serum (test code = 6.5 g/dL 6.0-8.5 2885-2) Count [facility] Hospitalcalcium, [id number] 13:13:00 Test Item Value Reference Range Interpretation Comments calcium, serum (test code = 2000-8) 8.9 mg/dL 8.7-10.2 Count Includes [facility] Hospitalcarbon dioxide, venous [id number] 13:13:00 Test Item Value Reference Range Interpretation Comments carbon dioxide, venous blood (test 24 mmol/L 18- code = 2027-1) [facility] Healthchloride, [id number] 13:13:00 Test Item Value Reference Range Interpretation Comments chloride, serum (test code = 100 mmol/L 96-106 2075-0) [facility] Healthpotassium, [id number] 13:13:00 Test Item Value Reference Range Interpretation Comments potassium, serum (test code = 4.1 mmol/L 3.5-5.2 2823-3) [facility] Healthsodium, [id number] 13:13:00 Test Item Value Reference Range Interpretation Comments sodium, serum (test code = 2951-2) 142 mmol/L 134-144 Count Includes [facility] Hospitalurea nitrogen/creatinine ratio, [id number] 13:13:00 Test Item Value Reference Range Interpretation Comments urea nitrogen/creatinine ratio, serum 13 9-23 (test code = 3097-3) [facility] HealtheGFR if [id number] 13:13:00 Test Item Value Reference Range Interpretation Comments eGFR if 102 >59 (test code = 04437-2) mL/min/((173/100).m2) Count Includes [facility] HospitalEstimated Glomerular Filtration Rate (calc)2017-05-25 13:13:00 Test Item Value Reference Range Interpretation Comments Estimated Glomerular 89 >59 Filtration Rate (calc) mL/min/((173/100).m2 (test code = 71930-6) ) Count In[facility] Hospitalcreatinine, [id number] 13:13:00 Test Item Value Reference Range Interpretation Comments creatinine, serum (test code = 0.75 mg/dL 0.57-1.00 2160-0) Count Includes [facility] Hospitalurea nitrogen, [id number] 13:13:00 Test Item Value Reference Range Interpretation Comments urea nitrogen, blood (test code = 10 mg/dL 6-24 3094-0) Count [facility] Hospitalblood glucose, [id number] 13:13:00 Test Item Value Reference Range Interpretation Comments blood glucose, random (test code = 123 mg/dL 65-99 H 2339-0) Count Includes [facility] Hospitalimmature granulocytes, percentage of total cells, blood 2017-05-25 13:13:00 Test Item Value Reference Range Interpretation Comments immature granulocytes, percentage of 0 % total cells, blood (test code = 47733-5) Count [facility] Hospitalbasophil count, ulqebypp0182-82-16 13:13:00 Test Item Value Reference Range Interpretation Comments basophil count, absolute (test 0.0 x10E3/uL 0.0-0.2 code = 64723-7) [facility] HealthEosinophil Absolute [id number] 13:13:00 Test Item Value Reference Range Interpretation Comments Eosinophil Absolute Count (test 0.1 X10E3/UL 0.0-0.4 code = 30476-4) [facility] Healthmonocyte count, blood, [id number] 13:13:00 Test Item Value Reference Range Interpretation Comments monocyte count, blood, automated 0.6 X10E3/UL 0.1-0.9 (test code = 742-7) Count Includes [facility] Hospitallymphocyte count, blood, gmxxazodi1889-65-10 13:13:00 Test Item Value Reference Range Interpretation Comments lymphocyte count, blood, 0.9 X10E3/UL 0.7-3.1 automated (test code = 731-0) Count Includes [facility] HospitalAbsolute Byuzbwkdduh2906-00-66 13:13:00 Test Item Value Reference Range Interpretation Comments Absolute Neutrophils (test code 3.6 X10E3/UL 1.4-7.0 = 50095-9) Count Includes [facility] Hospitalbasophils as percent of blood lnoecpvrxa4143-10-93 13:13:00 Test Item Value Reference Range Interpretation Comments basophils as percent of blood 0 % leukocytes (test code = 707-0) [facility] Healtheosinophils as percent of blood dvlsgurijd3014-26-79 13:13:00 Test Item Value Reference Range Interpretation Comments eosinophils as percent of blood 2 % leukocytes (test code = 713-8) [facility] Healthmonocytes as percent of blood lnfkasmdbz6136-99-47 13:13:00 Test Item Value Reference Range Interpretation Comments monocytes as percent of blood 11 % leukocytes (test code = 5905-5) Count Includes [facility] Hospitallymphocytes as percent of blood wueomzdkwe8964-34-49 13:13:00 Test Item Value Reference Range Interpretation Comments lymphocytes as percent of blood 17 % leukocytes (test code = 736-9) [facility]neutrophils as percent of blood udznbsrsbf1506-80-49 13:13:00 Test Item Value Reference Range Interpretation Comments neutrophils as percent of blood 70 % leukocytes (test code = 770-8) Count Includes [facility] Hospitalplatelet [id number] 13:13:00 Test Item Value Reference Range Interpretation Comments platelet count (test code = 159 X10E3/UL 150-379 777-3) Count In[facility] Hospitalred blood cell distribution fzmoy3462-28-58 13:13:00 Test Item Value Reference Range Interpretation Comments red blood cell distribution width 12.4 % 12.3-15.4 (test code = 788-0) [facility] corpuscular hemoglobin concentration, [id number] 13:13:00 Test Item Value Reference Range Interpretation Comments mean corpuscular hemoglobin 35.4 G/DL 31.5-35.7 concentration, RBC (test code = 786-4) [facility] corpuscular hemoglobin, [id number] 13:13:00 Test Item Value Reference Range Interpretation Comments mean corpuscular hemoglobin, RBC 35.0 pg 26.6-33.0 H (test code = 785-6) [facility] [id number] 13:13:00 Test Item Value Reference Range Interpretation Comments mean corpuscular volume, RBC (test code 99 fL 79-97 H = 787-2) Count [facility] Hospitalhematocrit, [id number] 13:13:00 Test Item Value Reference Range Interpretation Comments hematocrit, blood (test code = 4544-3) 40.4 % 34.0-46.6 Count Includes [facility] Hospitalhemoglobin, [id number] 13:13:00 Test Item Value Reference Range Interpretation Comments hemoglobin, blood (test code = 14.3 g/dL 11.1-15.9 718-7) Count Includes [facility] Hospitalerythrocyte (RBC) [id number] 13:13:00 Test Item Value Reference Range Interpretation Comments erythrocyte (RBC) count (test 4.09 X10E6/UL 3.77-5.28 code = 789-8) Count In[facility] Hospitalleukocyte count, [id number] 13:13:00 Test Item Value Reference Range Interpretation Comments leukocyte count, blood (test 5.1 X10E3/UL 3.4-10.8 code = 6690-2) Count Includes [facility] HospitalCD4/CD8 rblyo5994-22-25 13:13:00 Test Item Value Reference Range Interpretation Comments CD4/CD8 ratio (test code = 50172) 0.51 0.92-3.72 L Count Includes [facility] HospitalT-suppressor cells (CD8) as percent of blood lymphocytes 2017-05-25 13:13:00 Test Item Value Reference Range Interpretation Comments T-suppressor cells (CD8) as percent of 30.7 % 12.0-35.5 blood lymphocytes (test code = 3517) Count Includes [facility] Hospitalabsolute [id number] 13:13:00 Test Item Value Reference Range Interpretation Comments absolute CD8 (test code = 65539) 276 109-897 Count Includes [facility] HospitalT-helper cells (CD4) as percent of blood lymphocytes 2017-05-25 13:13:00 Test Item Value Reference Range Interpretation Comments T-helper cells (CD4) as percent of 15.7 % 30.8-58.5 L blood lymphocytes (test code = 8123-2) Count [facility] HospitalT-helper cells (CD4) [id number] 13:13:00 Test Item Value Reference Range Interpretation Comments T-helper cells (CD4) count (test code 141 /UL 359-1519 L = 27239-6) Count Includes [facility] Hospitalrapid plasma reagin antibody, [id number] 09:12:00 Test Item Value Reference Range Interpretation Comments rapid plasma reagin antibody, Non Reactive Non Reactive serum (test code = 5291-0) Count [facility] HospitalHIV-1RNA, serum, by PCR, jjqpezqlxiyw1740-29-78 09:12:00 Test Item Value Reference Range Interpretation Comments HIV-1RNA, serum, by PCR, <20 copies/mL quantitative (test code = 87089) Count Includes [facility] Hospitalalanine aminotransferase (SGPT), [id number] 09:12:00 Test Item Value Reference Range Interpretation Comments alanine aminotransferase (SGPT), serum 12 1/L 0-32 (test code = 1742-6) Count Includes [facility] Hospitalaspartate aminotransferase (SGOT), ljwwy4634-01-05 09:12:00 Test Item Value Reference Range Interpretation Comments aspartate aminotransferase (SGOT), 12 1/L 0-40 serum (test code = 1920-8) Count Includes [facility] Hospitalalkaline phosphatase, [id number] 09:12:00 Test Item Value Reference Range Interpretation Comments alkaline phosphatase, serum (test 146 1/L 39-117 H code = 1783-0) [facility] Healthbilirubin, serum, [id number] 09:12:00 Test Item Value Reference Range Interpretation Comments bilirubin, serum, total (test code 0.3 mg/dL 0.0-1.2 = 1975-2) [facility] Healthalbumin/globulin ratio, [id number] 09:12:00 Test Item Value Reference Range Interpretation Comments albumin/globulin ratio, serum (test 1.6 1.2-2.2 code = 1759-0) [facility] Healthglobulin, [id number] 09:12:00 Test Item Value Reference Range Interpretation Comments globulin, serum (test code = 2336-6) 2.5 1.5-4.5 [facility] Healthalbumin, [id number] 09:12:00 Test Item Value Reference Range Interpretation Comments albumin, serum (test code = 1751-7) 3.9 g/dL 3.5-5.5 Count [facility] Hospitalprotein, total, [id number] 09:12:00 Test Item Value Reference Range Interpretation Comments protein, total, serum (test code = 6.4 g/dL 6.0-8.5 2885-2) [facility] Hospitalcalcium, [id number] 09:12:00 Test Item Value Reference Range Interpretation Comments calcium, serum (test code = 1999-8) 9.0 mg/dL 8.7-10.2 Count Includes [facility] Hospitalcarbon dioxide, venous [id number] 09:12:00 Test Item Value Reference Range Interpretation Comments carbon dioxide, venous blood (test 24 mmol/L 18-29 code = 7-1) Count [facility] Hospitalchloride, [id number] 09:12:00 Test Item Value Reference Range Interpretation Comments chloride, serum (test code = 95 mmol/L 96-106 L 5-0) Count [facility] Hospitalpotassium, [id number] 09:12:00 Test Item Value Reference Range Interpretation Comments potassium, serum (test code = 4.5 mmol/L 3.5-5.2 2823-3) [facility] Hospitalsodium, [id number] 09:12:00 Test Item Value Reference Range Interpretation Comments sodium, serum (test code = 2951-2) 135 mmol/L 134-144 Count Includes [facility] Hospitalurea nitrogen/creatinine ratio, [id number] 09:12:00 Test Item Value Reference Range Interpretation Comments urea nitrogen/creatinine ratio, serum 10 9-23 (test code = 3097-3) Count [facility] HospitaleGFR if Dkywrwlg0661-67-02 09:12:00 Test Item Value Reference Range Interpretation Comments eGFR if 106 >59 (test code = 88767-3) mL/min/((173/100).m2) Count In[facility] HospitalEstimated Glomerular Filtration Rate (calc)2017-03-01 09:12:00 Test Item Value Reference Range Interpretation Comments Estimated Glomerular 92 >59 Filtration Rate (calc) mL/min/((173/100).m2 (test code = 67677-9) ) Count [facility] Hospitalcreatinine, [id number] 09:12:00 Test Item Value Reference Range Interpretation Comments creatinine, serum (test code = 0.73 mg/dL 0.57-1.00 2160-0) Count Includes [facility] Hospitalurea nitrogen, [id number] 09:12:00 Test Item Value Reference Range Interpretation Comments urea nitrogen, blood (test code = 7 mg/dL 6-24 3094-0) [facility] Hospitalblood glucose, [id number] 09:12:00 Test Item Value Reference Range Interpretation Comments blood glucose, random (test code = 130 mg/dL 65-99 H 2339-0) Count Includes [facility] Hospitalimmature granulocytes, percentage of total cells, blood 2017-03-01 09:12:00 Test Item Value Reference Range Interpretation Comments immature granulocytes, percentage of 0 % total cells, blood (test code = 14783-0) Count [facility] Hospitalbasophil count, kwqvibqx8697-75-12 09:12:00 Test Item Value Reference Range Interpretation Comments basophil count, absolute (test 0.0 x10E3/uL 0.0-0.2 code = 93070-2) [facility]Eosinophil Absolute Jrwlv7362-16-30 09:12:00 Test Item Value Reference Range Interpretation Comments Eosinophil Absolute Count (test 0.1 X10E3/UL 0.0-0.4 code = 14590-3) [facility] Healthmonocyte count, blood, ekhjhoqdm6352-32-25 09:12:00 Test Item Value Reference Range Interpretation Comments monocyte count, blood, automated 0.4 X10E3/UL 0.1-0.9 (test code = 742-7) Count Includes [facility] Hospitallymphocyte count, blood, mjdyhravm9977-52-48 09:12:00 Test Item Value Reference Range Interpretation Comments lymphocyte count, blood, 1.1 X10E3/UL 0.7-3.1 automated (test code = 731-0) Count Includes [facility] HospitalAbsolute Wrnasobzhqx3556-12-60 09:12:00 Test Item Value Reference Range Interpretation Comments Absolute Neutrophils (test code 3.7 X10E3/UL 1.4-7.0 = 49646-9) [facility] Healthbasophils as percent of blood yszotryirg1453-36-42 09:12:00 Test Item Value Reference Range Interpretation Comments basophils as percent of blood 0 % leukocytes (test code = 707-0) [facility] Healtheosinophils as percent of blood jxyvnnjqxp3117-92-59 09:12:00 Test Item Value Reference Range Interpretation Comments eosinophils as percent of blood 3 % leukocytes (test code = 713-8) [facility] Healthmonocytes as percent of blood blnkvonkme8747-47-77 09:12:00 Test Item Value Reference Range Interpretation Comments monocytes as percent of blood 7 % leukocytes (test code = 5905-5) [facility] Healthlymphocytes as percent of blood gxejvcwbdr4900-70-73 09:12:00 Test Item Value Reference Range Interpretation Comments lymphocytes as percent of blood 21 % leukocytes (test code = 736-9) [facility] Healthneutrophils as percent of blood vyxcthrnfs7285-82-91 09:12:00 Test Item Value Reference Range Interpretation Comments neutrophils as percent of blood 69 % leukocytes (test code = 770-8) [facility] Healthplatelet ydozw6971-55-42 09:12:00 Test Item Value Reference Range Interpretation Comments platelet count (test code = 233 X10E3/UL 150-379 777-3) [facility] Hospitalred blood cell distribution yanez3983-36-84 09:12:00 Test Item Value Reference Range Interpretation Comments red blood cell distribution width 13.1 % 12.3-15.4 (test code = 788-0) [facility], [id number] 09:12:00 Test Item Value Reference Range Interpretation Comments mean corpuscular hemoglobin 34.4 G/DL 31.5-35.7 concentration, RBC (test code = 786-4) [facility] corpuscular hemoglobin, [id number] 09:12:00 Test Item Value Reference Range Interpretation Comments mean corpuscular hemoglobin, RBC 35.0 pg 26.6-33.0 H (test code = 785-6) [facility] corpuscular volume, [id number] 09:12:00 Test Item Value Reference Range Interpretation Comments mean corpuscular volume, RBC (test 102 fL 79-97 H code = 787-2) [facility] Hospitalhematocrit, [id number] 09:12:00 Test Item Value Reference Range Interpretation Comments hematocrit, blood (test code = 4544-3) 42.2 % 34.0-46.6 Count [facility] Hospitalhemoglobin, [id number] 09:12:00 Test Item Value Reference Range Interpretation Comments hemoglobin, blood (test code = 14.5 g/dL 11.1-15.9 718-7) Count [facility] Hospitalerythrocyte (RBC) [id number] 09:12:00 Test Item Value Reference Range Interpretation Comments erythrocyte (RBC) count (test 4.14 X10E6/UL 3.77-5.28 code = 789-8) Count [facility] Hospitalleukocyte count, [id number] 09:12:00 Test Item Value Reference Range Interpretation Comments leukocyte count, blood (test 5.3 X10E3/UL 3.4-10.8 code = 6690-2) Count [facility]cludes [facility] HospitalCD4/CD8 tibdt2787-71-05 09:12:00 Test Item Value Reference Range Interpretation Comments CD4/CD8 ratio (test code = 03198) 0.68 0.92-3.72 L Count In[facility] HospitalT-suppressor cells (CD8) as percent of blood lymphocytes 2017-03-01 09:12:00 Test Item Value Reference Range Interpretation Comments T-suppressor cells (CD8) as percent of 27.9 % 12.0-35.5 blood lymphocytes (test code = 3517) Count [facility] Hospitalabsolute [id number] 09:12:00 Test Item Value Reference Range Interpretation Comments absolute CD8 (test code = 96678) 307 109-897 Count [facility] HospitalT-helper cells (CD4) as percent of blood lymphocytes 2017-03-01 09:12:00 Test Item Value Reference Range Interpretation Comments T-helper cells (CD4) as percent of 19.0 % 30.8-58.5 L blood lymphocytes (test code = 8123-2) [facility] HospitalT-helper cells (CD4) uznfm9506-94-55 09:12:00 Test Item Value Reference Range Interpretation Comments T-helper cells (CD4) count (test code 209 /UL 359-1519 L = 66521-1) Count [facility] HospitalNeisseria gonorrhoeae DNA mjfpz8551-18-48 11:00:00 Test Item Value Reference Range Interpretation Comments Neisseria gonorrhoeae DNA probe Negative Negative (test code = 64745-9) Count [facility]cludes [facility] Hospitalchlamydia DNA bhoya1733-83-02 11:00:00 Test Item Value Reference Range Interpretation Comments chlamydia DNA probe (test code = Negative Negative 69575-2) [facility] HospitalQuantifer[facility] Gold TB blood test for tuberculosis screening 2016-10-19 08:07:00 Test Item Value Reference Range Interpretation Comments Quantiferon Gold TB blood test for Negative Negative tuberculosis screening (test code = 27639-2) [facility] Hospitalrapid plasma reagin antibody, idqwd4093-01-25 08:07:00 Test Item Value Reference Range Interpretation Comments rapid plasma reagin antibody, Non Reactive Non Reactive serum (test code = 5291-0) [facility] HospitalHIV-1RNA, serum, by PCR, [id number] 08:07:00 Test Item Value Reference Range Interpretation Comments HIV-1RNA, serum, by PCR, <20 copies/mL quantitative (test code = 66364) [facility] HospitalLDL cholesterol, [id number] 08:07:00 Test Item Value Reference Range Interpretation Comments LDL cholesterol, serum (test code = 53 mg/dL 0-99 2088-1) [facility] Hospitalvery low density gzurueiaowac6803-12-25 08:07:00 Test Item Value Reference Range Interpretation Comments very low density lipoproteins (test 26 mg/dL 5-40 code = 2091-7) [facility] HospitalHDL cholesterol, gfgbl8625-50-54 08:07:00 Test Item Value Reference Range Interpretation Comments HDL cholesterol, serum (test code = 43 mg/dL >39 2084-9) [facility] Hospitaltriglyceride, serum, [id number] 08:07:00 Test Item Value Reference Range Interpretation Comments triglyceride, serum, fasting (test 128 mg/dL 0-149 code = 2571-8) [facility] Hospitalcholesterol, [id number] 08:07:00 Test Item Value Reference Range Interpretation Comments cholesterol, serum (test code = 122 mg/dL 188-279 4318-3) [facility] Hospitalalanine aminotransferase (SGPT), [id number] 08:07:00 Test Item Value Reference Range Interpretation Comments alanine aminotransferase (SGPT), serum 18 1/L 0-32 (test code = 1742-6) Count [facility]cludes [facility] Hospitalaspartate aminotransferase (SGOT), hnrla8175-70-74 08:07:00 Test Item Value Reference Range Interpretation Comments aspartate aminotransferase (SGOT), 13 1/L 0-40 serum (test code = 1920-8) Count [facility]cludes [facility] Hospitalalkaline phosphatase, odcxi2903-41-16 08:07:00 Test Item Value Reference Range Interpretation Comments alkaline phosphatase, serum (test 156 1/L 39-117 H code = 1783-0) [facility] Hospitalbilirubin, serum, gftuh6932-80-68 08:07:00 Test Item Value Reference Range Interpretation Comments bilirubin, serum, total (test code 0.4 mg/dL 0.0-1.2 = 1974-2) [facility] Hospitalalbumin/globulin ratio, ylhkq0964-10-31 08:07:00 Test Item Value Reference Range Interpretation Comments albumin/globulin ratio, serum (test 1.8 1.1-2.5 code = 1759-0) [facility] Hospitalglobulin, qlith5018-22-12 08:07:00 Test Item Value Reference Range Interpretation Comments globulin, serum (test code = 2336-6) 2.4 1.5-4.5 [facility] Healthalbumin, fplke6718-07-86 08:07:00 Test Item Value Reference Range Interpretation Comments albumin, serum (test code = 1751-7) 4.3 g/dL 3.5-5.5 Count [facility] Hospitalprotein, total, yygea0962-19-33 08:07:00 Test Item Value Reference Range Interpretation Comments protein, total, serum (test code = 6.7 g/dL 6.0-8.5 2885-2) [facility] Hospitalcalcium, szxac5432-54-67 08:07:00 Test Item Value Reference Range Interpretation Comments calcium, serum (test code = 1999-8) 9.4 mg/dL 8.7-10.2 Count Includes [facility] Hospitalcarbon dioxide, venous rpdeg4748-35-13 08:07:00 Test Item Value Reference Range Interpretation Comments carbon dioxide, venous blood (test 28 mmol/L 18-29 code = 7-1) Count [facility]cludes [facility] Hospitalchloride, [id number] 08:07:00 Test Item Value Reference Range Interpretation Comments chloride, serum (test code = 93 mmol/L 97-106 L 5-0) Count [facility]cludes [facility] Hospitalpotassium, [id number] 08:07:00 Test Item Value Reference Range Interpretation Comments potassium, serum (test code = 4.5 mmol/L 3.5-5.2 2823-3) [facility]cludes [facility] Hospitalsodium, otvtl0937-95-44 08:07:00 Test Item Value Reference Range Interpretation Comments sodium, serum (test code = 2951-2) 136 mmol/L 136-144 Count Includes [facility] Hospitalurea nitrogen/creatinine ratio, [id number] 08:07:00 Test Item Value Reference Range Interpretation Comments urea nitrogen/creatinine ratio, serum 10 9-23 (test code = 3097-3) [facility] HealtheGFR if Uwojczol8910-46-01 08:07:00 Test Item Value Reference Range Interpretation Comments eGFR if 100 >59 (test code = 53035-8) mL/min/((173/100).m2) Count Includes [facility] HospitalEstimated Glomerular Filtration Rate (calc)2016-10-19 08:07:00 Test Item Value Reference Range Interpretation Comments Estimated Glomerular 87 >59 Filtration Rate (calc) mL/min/((173/100).m2 (test code = 63688-2) ) [facility] Healthcreatinine, whwyg3606-77-21 08:07:00 Test Item Value Reference Range Interpretation Comments creatinine, serum (test code = 0.77 mg/dL 0.57-1.00 2160-0) Count Includes [facility] Hospitalurea nitrogen, [id number] 08:07:00 Test Item Value Reference Range Interpretation Comments urea nitrogen, blood (test code = 8 mg/dL 6-24 3094-0) Count [facility] Hospitalblood glucose, [id number] 08:07:00 Test Item Value Reference Range Interpretation Comments blood glucose, random (test code = 152 mg/dL 65-99 H 2339-0) Count Includes [facility] Hospitalimmature granulocytes, percentage of total cells, blood 2016-10-19 08:07:00 Test Item Value Reference Range Interpretation Comments immature granulocytes, percentage of 0 % total cells, blood (test code = 41172-7) Count Includes [facility] Hospitalbasophil count, ublvcxeb5047-50-39 08:07:00 Test Item Value Reference Range Interpretation Comments basophil count, absolute (test 0.0 x10E3/uL 0.0-0.2 code = 52608-0) Count Includes [facility] HospitalEosinophil Absolute Blgns6908-10-29 08:07:00 Test Item Value Reference Range Interpretation Comments Eosinophil Absolute Count (test 0.2 X10E3/UL 0.0-0.4 code = 38829-2) Count Includes [facility] Hospitalmonocyte count, blood, deevopnxb2428-64-34 08:07:00 Test Item Value Reference Range Interpretation Comments monocyte count, blood, automated 0.5 X10E3/UL 0.1-0.9 (test code = 742-7) Count Includes [facility] Hospitallymphocyte count, blood, czvrklxvz1340-99-36 08:07:00 Test Item Value Reference Range Interpretation Comments lymphocyte count, blood, 1.7 X10E3/UL 0.7-3.1 automated (test code = 731-0) Count Includes [facility] HospitalAbsolute Aiynyzrohpo8860-43-94 08:07:00 Test Item Value Reference Range Interpretation Comments Absolute Neutrophils (test code 5.2 X10E3/UL 1.4-7.0 = 24917-5) [facility] Healthbasophils as percent of blood sfhaxehevw2210-76-84 08:07:00 Test Item Value Reference Range Interpretation Comments basophils as percent of blood 0 % leukocytes (test code = 707-0) Count Includes [facility] Hospitaleosinophils as percent of blood thzsrtzawy8511-92-92 08:07:00 Test Item Value Reference Range Interpretation Comments eosinophils as percent of blood 3 % leukocytes (test code = 713-8) [facility] Healthmonocytes as percent of blood akarqaeiyp7713-49-22 08:07:00 Test Item Value Reference Range Interpretation Comments monocytes as percent of blood 6 % leukocytes (test code = 5905-5) Count Includes [facility] Hospitallymphocytes as percent of blood bufcnczfmk5621-80-68 08:07:00 Test Item Value Reference Range Interpretation Comments lymphocytes as percent of blood 22 % leukocytes (test code = 736-9) Count Includes [facility] Hospitalneutrophils as percent of blood vkufculwsp2662-11-29 08:07:00 Test Item Value Reference Range Interpretation Comments neutrophils as percent of blood 69 % leukocytes (test code = 770-8) Count Includes [facility] Hospitalplatelet avyat0986-34-42 08:07:00 Test Item Value Reference Range Interpretation Comments platelet count (test code = 257 X10E3/UL 150-379 777-3) Count Includes [facility] Hospitalred blood cell distribution zwqlk2227-11-03 08:07:00 Test Item Value Reference Range Interpretation Comments red blood cell distribution width 12.9 % 12.3-15.4 (test code = 788-0) [facility] corpuscular hemoglobin concentration, [id number] 08:07:00 Test Item Value Reference Range Interpretation Comments mean corpuscular hemoglobin 34.3 G/DL 31.5-35.7 concentration, RBC (test code = 786-4) [facility] corpuscular hemoglobin, [id number] 08:07:00 Test Item Value Reference Range Interpretation Comments mean corpuscular hemoglobin, RBC 34.5 pg 26.6-33.0 H (test code = 785-6) [facility] corpuscular volume, [id number] 08:07:00 Test Item Value Reference Range Interpretation Comments mean corpuscular volume, RBC (test 101 fL 79-97 H code = 787-2) Count Includes [facility] Hospitalhematocrit, [id number] 08:07:00 Test Item Value Reference Range Interpretation Comments hematocrit, blood (test code = 4544-3) 44.6 % 34.0-46.6 Count Includes [facility] Hospitalhemoglobin, xrsss0234-03-91 08:07:00 Test Item Value Reference Range Interpretation Comments hemoglobin, blood (test code = 15.3 g/dL 11.1-15.9 718-7) Count Includes [facility] Hospitalerythrocyte (RBC) wcvth6814-32-28 08:07:00 Test Item Value Reference Range Interpretation Comments erythrocyte (RBC) count (test 4.43 X10E6/UL 3.77-5.28 code = 789-8) Count Includes [facility] Hospitalleukocyte count, nosve1514-81-81 08:07:00 Test Item Value Reference Range Interpretation Comments leukocyte count, blood (test 7.7 X10E3/UL 3.4-10.8 code = 6690-2) Count Includes [facility] HospitalCD4/CD8 baxmr3508-59-62 08:07:00 Test Item Value Reference Range Interpretation Comments CD4/CD8 ratio (test code = 12629) 0.84 0.92-3.72 L Count Includes [facility] HospitalT-suppressor cells (CD8) as percent of blood lymphocytes 2016-10-19 08:07:00 Test Item Value Reference Range Interpretation Comments T-suppressor cells (CD8) as percent of 26.3 % 12.0-35.5 blood lymphocytes (test code = 3517) Count Includes [facility] Hospitalabsolute [id number] 08:07:00 Test Item Value Reference Range Interpretation Comments absolute CD8 (test code = 92377) 447 109-897 Count Includes [facility] HospitalT-helper cells (CD4) as percent of blood lymphocytes 2016-10-19 08:07:00 Test Item Value Reference Range Interpretation Comments T-helper cells (CD4) as percent of 22.0 % 30.8-58.5 L blood lymphocytes (test code = 8123-2) Count Includes [facility] HospitalT-helper cells (CD4) wliva2114-60-51 08:07:00 Test Item Value Reference Range Interpretation Comments T-helper cells (CD4) count (test code 374 /UL 359-1519 = 06861-6) Count Includes [facility] Hospitalhepatitis B surface leerjkb6359-26-55 09:14:00 Test Item Value Reference Range Interpretation Comments hepatitis B surface antigen (test Negative Negative code = 79) Count Includes [facility] Hospitalhepatitis C antibody, lthmo7090-23-44 09:14:00 Test Item Value Reference Range Interpretation Comments hepatitis C antibody, serum (test code 0.2 0.0-0.9 = 5199-5) Count Includes [facility] Hospitalvitamin D 25-hydroxy, agxhm1214-22-50 09:14:00 Test Item Value Reference Range Interpretation Comments vitamin D 25-hydroxy, serum (test 27.6 ng/mL 30.0-100.0 L code = 15155-8) Count Includes [facility] Hospitalrapid plasma reagin antibody, yiuuy3306-16-20 09:14:00 Test Item Value Reference Range Interpretation Comments rapid plasma reagin antibody, Non Reactive Non Reactive serum (test code = 5291-0) Count Includes [facility] HospitalHIV-1RNA, serum, by PCR, dtwaomzfkpyv1614-42-91 09:14:00 Test Item Value Reference Range Interpretation Comments HIV-1RNA, serum, by PCR, quantitative 30 /mL (test code = 05638) Count Includes [facility] HospitalLDL cholesterol, qtcgn5583-10-13 09:14:00 Test Item Value Reference Range Interpretation Comments LDL cholesterol, serum (test code = 82 mg/dL 0-99 2088-1) Count Includes [facility] Hospitalvery low density edftzisenetq7259-02-91 09:14:00 Test Item Value Reference Range Interpretation Comments very low density lipoproteins (test 40 mg/dL 5-40 code = 1-7) Count Includes [facility] HospitalHDL cholesterol, alepj1654-92-51 09:14:00 Test Item Value Reference Range Interpretation Comments HDL cholesterol, serum (test code = 42 mg/dL >39 5-9) Count Includes [facility] Hospitaltriglyceride, serum, qdzlpvk0439-72-90 09:14:00 Test Item Value Reference Range Interpretation Comments triglyceride, serum, fasting (test 199 mg/dL 0-149 H code = 2571-8) Count Includes [facility] Hospitalcholesterol, dhkuz0972-75-22 09:14:00 Test Item Value Reference Range Interpretation Comments cholesterol, serum (test code = 164 mg/dL 257-242 0204-3) Count Includes [facility] Hospitalalanine aminotransferase (SGPT), wtsmu6621-50-16 09:14:00 Test Item Value Reference Range Interpretation Comments alanine aminotransferase (SGPT), serum 12 1/L 0-32 (test code = 1742-6) Count Includes [facility] Hospitalaspartate aminotransferase (SGOT), pdqdu6011-83-12 09:14:00 Test Item Value Reference Range Interpretation Comments aspartate aminotransferase (SGOT), 14 1/L 0-40 serum (test code = 1920-8) Count Includes [facility] Hospitalalkaline phosphatase, [id number] 09:14:00 Test Item Value Reference Range Interpretation Comments alkaline phosphatase, serum (test 169 1/L 39-117 H code = 1783-0) Count Includes [facility] Hospitalbilirubin, serum, zblth9036-91-77 09:14:00 Test Item Value Reference Range Interpretation Comments bilirubin, serum, total (test code 0.4 mg/dL 0.0-1.2 = 1975-2) Count Includes [facility] Hospitalalbumin/globulin ratio, txich7392-61-93 09:14:00 Test Item Value Reference Range Interpretation Comments albumin/globulin ratio, serum (test 1.8 1.1-2.5 code = 1759-0) [facility] Healthglobulin, gzowa2567-73-43 09:14:00 Test Item Value Reference Range Interpretation Comments globulin, serum (test code = 2336-6) 2.4 1.5-4.5 [facility] Healthalbumin, zrcag1647-81-14 09:14:00 Test Item Value Reference Range Interpretation Comments albumin, serum (test code = 1751-7) 4.3 g/dL 3.5-5.5 Count Includes [facility] Hospitalprotein, total, vvaji5690-29-26 09:14:00 Test Item Value Reference Range Interpretation Comments protein, total, serum (test code = 6.7 g/dL 6.0-8.5 2885-2) Count Includes [facility] Hospitalcalcium, supwd9928-02-19 09:14:00 Test Item Value Reference Range Interpretation Comments calcium, serum (test code = 2000-8) 9.4 mg/dL 8.7-10.2 Count Includes [facility] Hospitalcarbon dioxide, venous mbutk0329-32-69 09:14:00 Test Item Value Reference Range Interpretation Comments carbon dioxide, venous blood (test 24 mmol/L 18-29 code = 2027-1) [facility] Healthchloride, axise3087-18-83 09:14:00 Test Item Value Reference Range Interpretation Comments chloride, serum (test code = 96 mmol/L 97-108 L 2075-0) [facility] Healthpotassium, ykukj0297-83-16 09:14:00 Test Item Value Reference Range Interpretation Comments potassium, serum (test code = 4.4 mmol/L 3.5-5.2 2823-3) [facility] Healthsodium, vhmjw3759-49-64 09:14:00 Test Item Value Reference Range Interpretation Comments sodium, serum (test code = 2951-2) 137 mmol/L 134-144 Count Includes [facility] Hospitalurea nitrogen/creatinine ratio, oclcp1155-88-52 09:14:00 Test Item Value Reference Range Interpretation Comments urea nitrogen/creatinine ratio, serum 13 9-23 (test code = 3097-3) [facility] HealtheGFR if Uodkblnz3126-93-49 09:14:00 Test Item Value Reference Range Interpretation Comments eGFR if 117 >59 (test code = 74448-1) mL/min/((173/100).m2) Count Includes [facility] HospitalEstimated Glomerular Filtration Rate (calc)2016-07-01 09:14:00 Test Item Value Reference Range Interpretation Comments Estimated Glomerular 102 >59 Filtration Rate (calc) mL/min/((173/100).m2 (test code = 80897-3) ) Count Includes [facility] Hospitalcreatinine, frvvb9091-97-92 09:14:00 Test Item Value Reference Range Interpretation Comments creatinine, serum (test code = 0.61 mg/dL 0.57-1.00 2160-0) Count Includes [facility] Hospitalurea nitrogen, zzbsc7271-33-87 09:14:00 Test Item Value Reference Range Interpretation Comments urea nitrogen, blood (test code = 8 mg/dL 6-24 3094-0) Count Includes [facility] Hospitalblood glucose, hydiyx8423-23-66 09:14:00 Test Item Value Reference Range Interpretation Comments blood glucose, random (test code = 106 mg/dL 65-99 H 2339-0) Count Includes [facility] Hospitalimmature granulocytes, percentage of total cells, blood 2016-07-01 09:14:00 Test Item Value Reference Range Interpretation Comments immature granulocytes, percentage of 0 % total cells, blood (test code = 19536-5) Count Includes [facility] Hospitalbasophil count, srdssdrk0424-73-88 09:14:00 Test Item Value Reference Range Interpretation Comments basophil count, absolute (test 0.0 x10E3/uL 0.0-0.2 code = 59491-4) [facility] HealthEosinophil Absolute Cdesn8873-27-62 09:14:00 Test Item Value Reference Range Interpretation Comments Eosinophil Absolute Count (test 0.3 X10E3/UL 0.0-0.4 code = 23679-8) [facility] Healthmonocyte count, blood, tuumvgamq9431-36-01 09:14:00 Test Item Value Reference Range Interpretation Comments monocyte count, blood, automated 0.4 X10E3/UL 0.1-0.9 (test code = 742-7) Count Includes [facility] Hospitallymphocyte count, blood, eamyaduvh0851-98-06 09:14:00 Test Item Value Reference Range Interpretation Comments lymphocyte count, blood, 1.5 X10E3/UL 0.7-3.1 automated (test code = 731-0) [facility] HealthAbsolute Ouyfvmhzyhi8701-73-65 09:14:00 Test Item Value Reference Range Interpretation Comments Absolute Neutrophils (test code 3.6 X10E3/UL 1.4-7.0 = 59706-8) Count Includes [facility] Hospitalbasophils as percent of blood brgyafviwg7767-74-81 09:14:00 Test Item Value Reference Range Interpretation Comments basophils as percent of blood 0 % leukocytes (test code = 707-0) [facility] Healtheosinophils as percent of blood uzuvvwkxcm9396-08-38 09:14:00 Test Item Value Reference Range Interpretation Comments eosinophils as percent of blood 5 % leukocytes (test code = 713-8) [facility] Healthmonocytes as percent of blood qyhsvlghts5722-17-04 09:14:00 Test Item Value Reference Range Interpretation Comments monocytes as percent of blood 7 % leukocytes (test code = 5905-5) Count Includes [facility] Hospitallymphocytes as percent of blood bcwnnfuiib2425-27-86 09:14:00 Test Item Value Reference Range Interpretation Comments lymphocytes as percent of blood 25 % leukocytes (test code = 736-9) Count Includes [facility] Hospitalneutrophils as percent of blood chjdwfynxp0754-48-94 09:14:00 Test Item Value Reference Range Interpretation Comments neutrophils as percent of blood 63 % leukocytes (test code = 770-8) Count Includes [facility] Hospitalplatelet xrngi5329-67-19 09:14:00 Test Item Value Reference Range Interpretation Comments platelet count (test code = 210 X10E3/UL 150-379 777-3) Count Includes [facility] Hospitalred blood cell distribution vursp2982-35-47 09:14:00 Test Item Value Reference Range Interpretation Comments red blood cell distribution width 13.2 % 12.3-15.4 (test code = 788-0) [facility] corpuscular hemoglobin concentration, [id number] 09:14:00 Test Item Value Reference Range Interpretation Comments mean corpuscular hemoglobin 35.0 G/DL 31.5-35.7 concentration, RBC (test code = 786-4) [facility] corpuscular hemoglobin, [id number] 09:14:00 Test Item Value Reference Range Interpretation Comments mean corpuscular hemoglobin, RBC 35.2 pg 26.6-33.0 H (test code = 785-6) [facility] [id number] 09:14:00 Test Item Value Reference Range Interpretation Comments mean corpuscular volume, RBC (test 101 fL 79-97 H code = 787-2) Count [facility] Hospitalhematocrit, ikgkx7361-33-16 09:14:00 Test Item Value Reference Range Interpretation Comments hematocrit, blood (test code = 4544-3) 40.8 % 34.0-46.6 Count Includes [facility] Hospitalhemoglobin, xbzfj7698-44-38 09:14:00 Test Item Value Reference Range Interpretation Comments hemoglobin, blood (test code = 14.3 g/dL 11.1-15.9 718-7) Count Includes [facility] Hospitalerythrocyte (RBC) dlafw9360-93-05 09:14:00 Test Item Value Reference Range Interpretation Comments erythrocyte (RBC) count (test 4.06 X10E6/UL 3.77-5.28 code = 789-8) Count Includes [facility] Hospitalleukocyte count, svypd5182-29-99 09:14:00 Test Item Value Reference Range Interpretation Comments leukocyte count, blood (test 5.8 X10E3/UL 3.4-10.8 code = 6690-2) Count Includes [facility] HospitalCD4/CD8 eehjw5480-79-32 09:14:00 Test Item Value Reference Range Interpretation Comments CD4/CD8 ratio (test code = 27765) 0.68 0.92-3.72 L [facility] HealthT-suppressor cells (CD8) as percent of blood lymphocytes 2016-07-01 09:14:00 Test Item Value Reference Range Interpretation Comments T-suppressor cells (CD8) as percent of 28.2 % 12.0-35.5 blood lymphocytes (test code = 3517) Count Includes [facility] Hospitalabsdetar healthcare [facility] [id number] 09:14:00 Test Item Value Reference Range Interpretation Comments absolute CD8 (test code = 32665) 423 109-897 [facility] HealthT-helper cells (CD4) as percent of blood lymphocytes 2016-07-01 09:14:00 Test Item Value Reference Range Interpretation Comments T-helper cells (CD4) as percent of 19.2 % 30.8-58.5 L blood lymphocytes (test code = 8123-2) [facility] HealthT-helper cells (CD4) ddpfy0885-27-18 09:14:00 Test Item Value Reference Range Interpretation Comments T-helper cells (CD4) count (test code 288 /UL 359-1519 L = 47795-4) [facility] HealthT-suppressor cells (CD8) as percent of blood lymphocytes 2016-01-27 09:42:00 Test Item Value Reference Range Interpretation Comments T-suppressor cells (CD8) as percent of 28.8 % 12.0-35.5 blood lymphocytes (test code = 3517) Count Includes [facility] Hospitalabsdetar [facility] [id number] 09:42:00 Test Item Value Reference Range Interpretation Comments absolute CD8 (test code = 77657) 403 109-897 [facility] HealthT-helper cells (CD4) as percent of blood lymphocytes 2016-01-27 09:42:00 Test Item Value Reference Range Interpretation Comments T-helper cells (CD4) as percent of 19.2 % 30.8-58.5 L blood lymphocytes (test code = 8123-2) [facility] HealthT-helper cells (CD4) fjocn6885-19-31 09:42:00 Test Item Value Reference Range Interpretation Comments T-helper cells (CD4) count (test code 269 /UL 359-1519 L = 20587-8) Count Includes [facility] Hospitalrapid plasma reagin antibody, dvmhd5567-10-19 09:42:00 Test Item Value Reference Range Interpretation Comments rapid plasma reagin antibody, Non Reactive Non Reactive serum (test code = 5291-0) [facility]HIV-1RNA, serum, by PCR, [id number] 09:42:00 Test Item Value Reference Range Interpretation Comments HIV-1RNA, serum, by PCR, <20 copies/mL quantitative (test code = 26290) [facility] HospitalLDL cholesterol, zakbi2694-01-60 09:42:00 Test Item Value Reference Range Interpretation Comments LDL cholesterol, serum (test code = 58 mg/dL 0-99 2088-1) [facility] Hospitalvery low density bcehknbbgpmx7167-76-27 09:42:00 Test Item Value Reference Range Interpretation Comments very low density lipoproteins (test 32 mg/dL 5-40 code = 1-7) [facility] HospitalHDL cholesterol, qvbpc1106-85-84 09:42:00 Test Item Value Reference Range Interpretation Comments HDL cholesterol, serum (test code = 43 mg/dL >39 2084-9) [facility] Hospitaltriglyceride, serum, [id number] 09:42:00 Test Item Value Reference Range Interpretation Comments triglyceride, serum, fasting (test 161 mg/dL 0-149 H code = 2571-8) [facility] Hospitalcholesterol, ettuk5920-08-48 09:42:00 Test Item Value Reference Range Interpretation Comments cholesterol, serum (test code = 133 mg/dL 117-355 8873-3) Count [facility] Hospitalalanine aminotransferase (SGPT), [id number] 09:42:00 Test Item Value Reference Range Interpretation Comments alanine aminotransferase (SGPT), serum 15 1/L 0-32 (test code = 1742-6) Count Includes [facility] Hospitalaspartate aminotransferase (SGOT), ghrno0788-20-22 09:42:00 Test Item Value Reference Range Interpretation Comments aspartate aminotransferase (SGOT), 16 1/L 0-40 serum (test code = 1920-8) [facility], [id number] 09:42:00 Test Item Value Reference Range Interpretation Comments alkaline phosphatase, serum (test 130 1/L 39-117 H code = 1783-0) [facility] Healthbilirubin, serum, [id number] 09:42:00 Test Item Value Reference Range Interpretation Comments bilirubin, serum, total (test code 0.3 mg/dL 0.0-1.2 = 1975-2) [facility] Healthalbumin/globulin ratio, weesr7364-10-35 09:42:00 Test Item Value Reference Range Interpretation Comments albumin/globulin ratio, serum (test 1.5 1.1-2.5 code = 1759-0) [facility] Healthglobulin, nxewm4627-03-62 09:42:00 Test Item Value Reference Range Interpretation Comments globulin, serum (test code = 2336-6) 2.7 1.5-4.5 [facility] Healthalbumin, [id number] 09:42:00 Test Item Value Reference Range Interpretation Comments albumin, serum (test code = 1751-7) 4.1 g/dL 3.5-5.5 [facility] Healthprotein, total, [id number] 09:42:00 Test Item Value Reference Range Interpretation Comments protein, total, serum (test code = 6.8 g/dL 6.0-8.5 2885-2) [facility] Healthcalcium, lphud0527-02-18 09:42:00 Test Item Value Reference Range Interpretation Comments calcium, serum (test code = 1999-8) 9.4 mg/dL 8.7-10.2 Count [facility] Hospitalcarbon dioxide, venous loevq4653-42-92 09:42:00 Test Item Value Reference Range Interpretation Comments carbon dioxide, venous blood (test 29 mmol/L 18-29 code = 2026-1) [facility] Healthchloride, dmthj1190-65-54 09:42:00 Test Item Value Reference Range Interpretation Comments chloride, serum (test code = 104 mmol/L 97-108 5-0) [facility] Hospitalpotassium, [id number] 09:42:00 Test Item Value Reference Range Interpretation Comments potassium, serum (test code = 4.4 mmol/L 3.5-5.2 2823-3) [facility] Hospitalsodium, uiwkt7033-60-74 09:42:00 Test Item Value Reference Range Interpretation Comments sodium, serum (test code = 2951-2) 145 mmol/L 134-144 H Count Includes [facility] Hospitalurea nitrogen/creatinine ratio, urakp3856-41-54 09:42:00 Test Item Value Reference Range Interpretation Comments urea nitrogen/creatinine ratio, serum 20 9-23 (test code = 3097-3) [facility] HealtheGFR if Loxulfyh2858-21-77 09:42:00 Test Item Value Reference Range Interpretation Comments eGFR if 117 >59 (test code = 06815-0) mL/min/((173/100).m2) Count Includes [facility] HospitalEstimated Glomerular Filtration Rate (calc)2016-01-27 09:42:00 Test Item Value Reference Range Interpretation Comments Estimated Glomerular 102 >59 Filtration Rate (calc) mL/min/((173/100).m2 (test code = 68172-9) ) Count [facility] Hospitalcreatinine, bhrnt4791-29-30 09:42:00 Test Item Value Reference Range Interpretation Comments creatinine, serum (test code = 0.61 mg/dL 0.57-1.00 2160-0) Count Includes [facility] Hospitalurea nitrogen, wvmyg6539-30-31 09:42:00 Test Item Value Reference Range Interpretation Comments urea nitrogen, blood (test code = 12 mg/dL 6-24 3094-0) Count [facility] Hospitalblood glucose, mzolsv1602-64-42 09:42:00 Test Item Value Reference Range Interpretation Comments blood glucose, random (test code = 127 mg/dL 65-99 H 2339-0) Count Includes [facility] Hospitalimmature granulocytes, percentage of total cells, blood 2016-01-27 09:42:00 Test Item Value Reference Range Interpretation Comments immature granulocytes, percentage of 0 % total cells, blood (test code = 53845-3) Count [facility] Hospitalbasophil count, ceikjvsw1062-84-24 09:42:00 Test Item Value Reference Range Interpretation Comments basophil count, absolute (test 0.0 x10E3/uL 0.0-0.2 code = 03596-7) Count Includes [facility] HospitalEosinophil Absolute Fovxg9845-61-60 09:42:00 Test Item Value Reference Range Interpretation Comments Eosinophil Absolute Count (test 0.3 X10E3/UL 0.0-0.4 code = 59822-2) [facility] Healthmonocyte count, blood, eiwybiyxm4133-29-57 09:42:00 Test Item Value Reference Range Interpretation Comments monocyte count, blood, automated 0.4 X10E3/UL 0.1-0.9 (test code = 742-7) Count Includes [facility] Hospitallymphocyte count, blood, ouifnejkg1086-14-54 09:42:00 Test Item Value Reference Range Interpretation Comments lymphocyte count, blood, 1.4 X10E3/UL 0.7-3.1 automated (test code = 731-0) Count [facility]cludes [facility] HospitalAbsolute Pbvkftycmmi8650-49-47 09:42:00 Test Item Value Reference Range Interpretation Comments Absolute Neutrophils (test code 3.2 X10E3/UL 1.4-7.0 = 88460-0) Count Includes [facility] Hospitalbasophils as percent of blood pdnhapofje3660-89-09 09:42:00 Test Item Value Reference Range Interpretation Comments basophils as percent of blood 0 % leukocytes (test code = 707-0) Count Includes [facility] Hospitaleosinophils as percent of blood pkjcmpykak8553-58-73 09:42:00 Test Item Value Reference Range Interpretation Comments eosinophils as percent of blood 5 % leukocytes (test code = 713-8) [facility] Healthmonocytes as percent of blood zgubetnykp8978-50-49 09:42:00 Test Item Value Reference Range Interpretation Comments monocytes as percent of blood 7 % leukocytes (test code = 5905-5) Count Includes [facility] Hospitallymphocytes as percent of blood dhdrtbftdj1421-88-02 09:42:00 Test Item Value Reference Range Interpretation Comments lymphocytes as percent of blood 26 % leukocytes (test code = 736-9) Count Includes [facility] Hospitalneutrophils as percent of blood llrcemnzan2845-79-02 09:42:00 Test Item Value Reference Range Interpretation Comments neutrophils as percent of blood 62 % leukocytes (test code = 770-8) Count Includes [facility] Hospitalplatelet xovct6622-55-05 09:42:00 Test Item Value Reference Range Interpretation Comments platelet count (test code = 197 X10E3/UL 150-379 777-3) Count Includes [facility] Hospitalred blood cell distribution ucwlt1097-78-38 09:42:00 Test Item Value Reference Range Interpretation Comments red blood cell distribution width 13.6 % 12.3-15.4 (test code = 788-0) [facility], [id number] 09:42:00 Test Item Value Reference Range Interpretation Comments mean corpuscular hemoglobin 34.3 G/DL 31.5-35.7 concentration, RBC (test code = 786-4) [facility], [id number] 09:42:00 Test Item Value Reference Range Interpretation Comments mean corpuscular hemoglobin, RBC 35.1 pg 26.6-33.0 H (test code = 785-6) [facility] corpuscular volume, EHI5075-30-33 09:42:00 Test Item Value Reference Range Interpretation Comments mean corpuscular volume, RBC (test 102 fL 79-97 H code = 787-2) Count [facility] Hospitalhematocrit, slmrj2442-09-85 09:42:00 Test Item Value Reference Range Interpretation Comments hematocrit, blood (test code = 4544-3) 40.2 % 34.0-46.6 Count Includes [facility] Hospitalhemoglobin, soiya7121-33-14 09:42:00 Test Item Value Reference Range Interpretation Comments hemoglobin, blood (test code = 13.8 g/dL 11.1-15.9 718-7) Count Includes [facility] Hospitalerythrocyte (RBC) uuvcr3348-94-19 09:42:00 Test Item Value Reference Range Interpretation Comments erythrocyte (RBC) count (test 3.93 X10E6/UL 3.77-5.28 code = 789-8) Count Includes [facility] Hospitalleukocyte count, zfsys5608-74-89 09:42:00 Test Item Value Reference Range Interpretation Comments leukocyte count, blood (test 5.2 X10E3/UL 3.4-10.8 code = 6690-2) Count Includes [facility] HospitalCD4/CD8 jmecl9938-33-76 09:42:00 Test Item Value Reference Range Interpretation Comments CD4/CD8 ratio (test code = 37286) 0.67 0.92-3.72 L [facility] leukocyte antigen [id number] 10:14:15 Test Item Value Reference Range Interpretation Comments human leukocyte antigen B57 (test negative code = 301280) Count Includes [facility] HospitalQuantiferon Gold TB blood test for tuberculosis screening 2015-06-17 10:13:00 Test Item Value Reference Range Interpretation Comments Quantiferon Gold TB blood test for Negative Negative tuberculosis screening (test code = 04570-8) Count Includes [facility] HospitalHIV-1RNA, serum, by PCR, jbwitclfmkyf8550-66-53 10:13:00 Test Item Value Reference Range Interpretation Comments HIV-1RNA, serum, by PCR, <20 copies/mL quantitative (test code = 83265) Count Includes [facility] Hospitalrapid plasma reagin antibody, kaeku4833-18-31 10:13:00 Test Item Value Reference Range Interpretation Comments rapid plasma reagin antibody, Non Reactive Non Reactive serum (test code = 5291-0) Count Includes [facility] HospitalLDL cholesterol, ouets8401-74-20 10:13:00 Test Item Value Reference Range Interpretation Comments LDL cholesterol, serum (test code = 33 mg/dL 0-99 2088-1) Count Includes [facility] Hospitalvery low density nnmmpctwlngb3398-01-98 10:13:00 Test Item Value Reference Range Interpretation Comments very low density lipoproteins (test 17 mg/dL 5-40 code = 2091-7) Count Includes [facility] HospitalHDL cholesterol, izdmg2557-63-17 10:13:00 Test Item Value Reference Range Interpretation Comments HDL cholesterol, serum (test code = 38 mg/dL >39 L 2084-9) Count Includes [facility] Hospitaltriglyceride, serum, crlvvze7994-55-86 10:13:00 Test Item Value Reference Range Interpretation Comments triglyceride, serum, fasting (test 83 mg/dL 0-149 code = 2571-8) Count Includes [facility] Hospitalcholesterol, jkehw6145-28-31 10:13:00 Test Item Value Reference Range Interpretation Comments cholesterol, serum (test code = 88 mg/dL 100-199 L 3-3) Count Includes [facility] Hospitalalanine aminotransferase (SGPT), rvcaq4733-75-30 10:13:00 Test Item Value Reference Range Interpretation Comments alanine aminotransferase (SGPT), serum 15 1/L 0-32 (test code = 1742-6) Count Includes [facility] Hospitalaspartate aminotransferase (SGOT), cnezz6616-65-66 10:13:00 Test Item Value Reference Range Interpretation Comments aspartate aminotransferase (SGOT), 23 1/L 0-40 serum (test code = 1920-8) [facility] Healthalkaline phosphatase, lvkgm5946-20-91 10:13:00 Test Item Value Reference Range Interpretation Comments alkaline phosphatase, serum (test 120 1/L 39-117 H code = 1783-0) [facility] Healthbilirubin, serum, zqsel1906-35-10 10:13:00 Test Item Value Reference Range Interpretation Comments bilirubin, serum, total (test code 0.3 mg/dL 0.0-1.2 = 1975-2) [facility] Healthalbumin/globulin ratio, pxdeg0744-68-17 10:13:00 Test Item Value Reference Range Interpretation Comments albumin/globulin ratio, serum (test 1.8 1.1-2.5 code = 1759-0) [facility] Healthglobulin, cmetm6431-39-92 10:13:00 Test Item Value Reference Range Interpretation Comments globulin, serum (test code = 2336-6) 2.2 1.5-4.5 [facility] Healthalbumin, dbiiy5274-81-56 10:13:00 Test Item Value Reference Range Interpretation Comments albumin, serum (test code = 1751-7) 3.9 g/dL 3.5-5.5 [facility] Healthprotein, total, [id number] 10:13:00 Test Item Value Reference Range Interpretation Comments protein, total, serum (test code = 6.1 g/dL 6.0-8.5 2885-2) Count [facility] Hospitalcalcium, iswam2030-70-89 10:13:00 Test Item Value Reference Range Interpretation Comments calcium, serum (test code = 1999-8) 9.4 mg/dL 8.7-10.2 Count Includes [facility] Hospitalcarbon dioxide, venous lpoze5527-11-32 10:13:00 Test Item Value Reference Range Interpretation Comments carbon dioxide, venous blood (test 26 mmol/L 18-29 code = 2026-1) Count Includes [facility] Hospitalchloride, odsnn8041-19-46 10:13:00 Test Item Value Reference Range Interpretation Comments chloride, serum (test code = 102 mmol/L 97-108 2074-0) Count [facility] Hospitalpotassium, [id number] 10:13:00 Test Item Value Reference Range Interpretation Comments potassium, serum (test code = 3.1 mmol/L 3.5-5.2 L 2823-3) Count [facility]cludes [facility] Hospitalsodium, bampz2018-10-43 10:13:00 Test Item Value Reference Range Interpretation Comments sodium, serum (test code = 2951-2) 144 mmol/L 134-144 Count Includes [facility] Hospitalurea nitrogen/creatinine ratio, wfmij8766-74-26 10:13:00 Test Item Value Reference Range Interpretation Comments urea nitrogen/creatinine ratio, serum 11 9-23 (test code = 3097-3) Count Includes [facility] HospitaleGFR if Oyfwkzbl1724-58-67 10:13:00 Test Item Value Reference Range Interpretation Comments eGFR if 113 >59 (test code = 95154-8) mL/min/((173/100).m2) Count Includes [facility] HospitalEstimated Glomerular Filtration Rate (calc)2015-06-17 10:13:00 Test Item Value Reference Range Interpretation Comments Estimated Glomerular 98 >59 Filtration Rate (calc) mL/min/((173/100).m2 (test code = 93270-5) ) Count Includes [facility] Hospitalcreatinine, eagdi3502-87-47 10:13:00 Test Item Value Reference Range Interpretation Comments creatinine, serum (test code = 0.70 mg/dL 0.57-1.00 2160-0) Count Includes [facility] Hospitalurea nitrogen, cmidp8427-41-68 10:13:00 Test Item Value Reference Range Interpretation Comments urea nitrogen, blood (test code = 8 mg/dL 6-24 3094-0) Count Includes [facility] Hospitalblood glucose, sepxbh8797-57-20 10:13:00 Test Item Value Reference Range Interpretation Comments blood glucose, random (test code = 77 mg/dL 65-99 2339-0) Count Includes [facility] Hospitalimmature granulocytes, percentage of total cells, blood 2015-06-17 10:13:00 Test Item Value Reference Range Interpretation Comments immature granulocytes, percentage of 0 % total cells, blood (test code = 42347-2) Count Includes [facility] Hospitalbasophil count, soaohrqs0601-71-33 10:13:00 Test Item Value Reference Range Interpretation Comments basophil count, absolute (test 0.0 x10E3/uL 0.0-0.2 code = 55730-2) Count Includes [facility] HospitalEosinophil Absolute Jeuto8671-89-51 10:13:00 Test Item Value Reference Range Interpretation Comments Eosinophil Absolute Count (test 0.2 X10E3/UL 0.0-0.4 code = 05840-1) [facility] Healthmonocyte count, blood, oylbnlxqj4366-13-85 10:13:00 Test Item Value Reference Range Interpretation Comments monocyte count, blood, automated 0.3 X10E3/UL 0.1-0.9 (test code = 742-7) Count Includes [facility] Hospitallymphocyte count, blood, tghhvsizu3903-99-82 10:13:00 Test Item Value Reference Range Interpretation Comments lymphocyte count, blood, 1.3 X10E3/UL 0.7-3.1 automated (test code = 731-0) Count Includes [facility] HospitalAbsolute Utuahzfgbim7548-76-49 10:13:00 Test Item Value Reference Range Interpretation Comments Absolute Neutrophils (test code 3.5 X10E3/UL 1.4-7.0 = 66935-1) Count Includes [facility] Hospitalbasophils as percent of blood fecnxoxtfb9880-68-17 10:13:00 Test Item Value Reference Range Interpretation Comments basophils as percent of blood 0 % leukocytes (test code = 707-0) Count [facility]cludes [facility] Hospitaleosinophils as percent of blood aybmhvqrsy4357-08-89 10:13:00 Test Item Value Reference Range Interpretation Comments eosinophils as percent of blood 4 % leukocytes (test code = 713-8) [facility] Healthmonocytes as percent of blood oifdbvsaas4972-57-24 10:13:00 Test Item Value Reference Range Interpretation Comments monocytes as percent of blood 6 % leukocytes (test code = 5905-5) Count Includes [facility] Hospitallymphocytes as percent of blood vvynpqvuhb7783-65-62 10:13:00 Test Item Value Reference Range Interpretation Comments lymphocytes as percent of blood 24 % leukocytes (test code = 736-9) Count Includes [facility] Hospitalneutrophils as percent of blood xljeueipgw0818-96-89 10:13:00 Test Item Value Reference Range Interpretation Comments neutrophils as percent of blood 66 % leukocytes (test code = 770-8) Count Includes [facility] Hospitalplatelet pgzdj9249-89-87 10:13:00 Test Item Value Reference Range Interpretation Comments platelet count (test code = 243 X10E3/UL 150-379 777-3) Count In[facility] Hospitalred blood cell distribution vstac9804-54-45 10:13:00 Test Item Value Reference Range Interpretation Comments red blood cell distribution width 14.1 % 12.3-15.4 (test code = 788-0) [facility] corpuscular hemoglobin concentration, [id number] 10:13:00 Test Item Value Reference Range Interpretation Comments mean corpuscular hemoglobin 35.6 G/DL 31.5-35.7 concentration, RBC (test code = 786-4) [facility] corpuscular hemoglobin, [id number] 10:13:00 Test Item Value Reference Range Interpretation Comments mean corpuscular hemoglobin, RBC 37.0 pg 26.6-33.0 H (test code = 785-6) [facility] corpuscular volume, [id number] 10:13:00 Test Item Value Reference Range Interpretation Comments mean corpuscular volume, RBC (test 104 fL 79-97 H code = 787-2) Count [facility] Hospitalhematocrit, pnahs1291-42-46 10:13:00 Test Item Value Reference Range Interpretation Comments hematocrit, blood (test code = 4544-3) 33.1 % 34.0-46.6 L Count Includes [facility] Hospitalhemoglobin, pvjrs6470-23-26 10:13:00 Test Item Value Reference Range Interpretation Comments hemoglobin, blood (test code = 11.8 g/dL 11.1-15.9 718-7) Count Includes [facility] Hospitalerythrocyte (RBC) otgyb4063-90-83 10:13:00 Test Item Value Reference Range Interpretation Comments erythrocyte (RBC) count (test 3.19 X10E6/UL 3.77-5.28 L code = 789-8) Count Includes [facility] Hospitalleukocyte count, bgxtn0445-12-01 10:13:00 Test Item Value Reference Range Interpretation Comments leukocyte count, blood (test 5.3 X10E3/UL 3.4-10.8 code = 6690-2) Count Includes [facility] HospitalCD4/CD8 dbedb4051-84-47 10:13:00 Test Item Value Reference Range Interpretation Comments CD4/CD8 ratio (test code = 36508) 0.47 0.92-3.72 L Count Includes [facility] HospitalT-suppressor cells (CD8) as percent of blood lymphocytes 2015-06-17 10:13:00 Test Item Value Reference Range Interpretation Comments T-suppressor cells (CD8) as percent of 27.6 % 12.0-35.5 blood lymphocytes (test code = 3517) [facility] Healthabsolute [id number] 10:13:00 Test Item Value Reference Range Interpretation Comments absolute CD8 (test code = 72891) 359 109-897 Count Includes [facility] HospitalT-helper cells (CD4) as percent of blood lymphocytes 2015-06-17 10:13:00 Test Item Value Reference Range Interpretation Comments T-helper cells (CD4) as percent of 13.0 % 30.8-58.5 L blood lymphocytes (test code = 8123-2) Count In[facility] HospitalT-helper cells (CD4) euzat7086-30-67 10:13:00 Test Item Value Reference Range Interpretation Comments T-helper cells (CD4) count (test code 169 /UL 359-1519 L = 95266-0) Count [facility] HospitalT-helper cells (CD4) count, lowest absolute value 2015-03-18 10:06:41 Test Item Value Reference Range Interpretation Comments T-helper cells (CD4) count, lowest 150 absolute value (test code = 17533) Count Includes [facility] HospitalHIV-CMIA (Chemiluminescent Microparticle Immuno Assay) 2015-03-03 09:53:00 Test Item Value Reference Range Interpretation Comments HIV-CMIA (Chemiluminescent Reactive Non Reactive A Microparticle Immuno Assay) (test code = 418084) Count Includes [facility] HospitalHIV-1RNA, serum, by PCR, xjfeuvgkkqub9753-69-91 09:53:00 Test Item Value Reference Range Interpretation Comments HIV-1RNA, serum, by PCR, <20 copies/mL quantitative (test code = 65926) [facility] [id number] 09:53:00 Test Item Value Reference Range Interpretation Comments hepatitis A antibody, total (test Negative Negative code = 75) [facility] core antibody, qcdlj4563-74-92 09:53:00 Test Item Value Reference Range Interpretation Comments hepatitis B core antibody, total Negative Negative (test code = 77) [facility] B surface sexbqgv7048-34-48 09:53:00 Test Item Value Reference Range Interpretation Comments hepatitis B surface antigen (test Negative Negative code = 79) Count Includes [facility] Hospitalrapid plasma reagin antibody, efkus0158-87-65 09:53:00 Test Item Value Reference Range Interpretation Comments rapid plasma reagin antibody, Non Reactive Non Reactive serum (test code = 5291-0) Count [facility]cludes [facility] Hospitalhepatitis C antibody, rfnnm4524-58-00 09:53:00 Test Item Value Reference Range Interpretation Comments hepatitis C antibody, serum (test code <0.1 0.0-0.9 = 5199-5) Count Includes [facility] Hospitaltoxoplasma gondii antibody, [id number] 09:53:00 Test Item Value Reference Range Interpretation Comments toxoplasma gondii antibody, IgG (test <3.0 0.0-5.9 code = 2430) Count [facility]cludes [facility] Hospitalhepatitis B surface itzhjirb2480-10-72 09:53:00 Test Item Value Reference Range Interpretation Comments hepatitis B surface antibody Non Reactive (test code = 78) Count Includes [facility] HospitalLDL cholesterol, dseya3268-76-47 09:53:00 Test Item Value Reference Range Interpretation Comments LDL cholesterol, serum (test code = 133 mg/dL 0-99 H 2088-11) [facility] low density yhvhgxxleunw6071-83-11 09:53:00 Test Item Value Reference Range Interpretation Comments very low density lipoproteins (test 36 mg/dL 5-40 code = 2090-7) [facility] HospitalHDL cholesterol, tbgpn2485-41-78 09:53:00 Test Item Value Reference Range Interpretation Comments HDL cholesterol, serum (test code = 45 mg/dL >39 2084-9) [facility]triglyceride, serum, tefituj3822-52-97 09:53:00 Test Item Value Reference Range Interpretation Comments triglyceride, serum, fasting (test 178 mg/dL 0-149 H code = 2571-8) Count Includes [facility] Hospitalcholesterol, twoga6199-39-73 09:53:00 Test Item Value Reference Range Interpretation Comments cholesterol, serum (test code = 214 mg/dL 100-199 H 2092-3) Count Includes [facility] Hospitalalanine aminotransferase (SGPT), azltv9905-02-61 09:53:00 Test Item Value Reference Range Interpretation Comments alanine aminotransferase (SGPT), serum 9 1/L 0-32 (test code = 1742-6) [facility] (SGOT), egloi2879-33-65 09:53:00 Test Item Value Reference Range Interpretation Comments aspartate aminotransferase (SGOT), 10 1/L 0-40 serum (test code = 1920-8) Count Includes [facility] Hospitalalkaline phosphatase, ftboe0127-62-56 09:53:00 Test Item Value Reference Range Interpretation Comments alkaline phosphatase, serum (test 120 1/L 39-117 H code = 1783-0) [facility] Healthbilirubin, serum, jzoar1366-93-29 09:53:00 Test Item Value Reference Range Interpretation Comments bilirubin, serum, total (test code 0.5 mg/dL 0.0-1.2 = 1974-2) [facility] Healthalbumin/globulin ratio, phbhu8263-21-58 09:53:00 Test Item Value Reference Range Interpretation Comments albumin/globulin ratio, serum (test 1.7 1.1-2.5 code = 1759-0) [facility] Healthglobulin, hzhuj2853-82-08 09:53:00 Test Item Value Reference Range Interpretation Comments globulin, serum (test code = 2336-6) 2.7 1.5-4.5 [facility] Healthalbumin, lxeek2971-82-80 09:53:00 Test Item Value Reference Range Interpretation Comments albumin, serum (test code = 1751-7) 4.6 g/dL 3.5-5.5 [facility] Healthprotein, total, ehjag7228-79-95 09:53:00 Test Item Value Reference Range Interpretation Comments protein, total, serum (test code = 7.3 g/dL 6.0-8.5 2885-2) [facility] Healthcalcium, gjdut6860-57-12 09:53:00 Test Item Value Reference Range Interpretation Comments calcium, serum (test code = 1999-8) 9.7 mg/dL 8.7-10.2 Count Includes [facility] Hospitalcarbon dioxide, venous eyefp7054-42-14 09:53:00 Test Item Value Reference Range Interpretation Comments carbon dioxide, venous blood (test 27 mmol/L 18-29 code = 2026-1) Count Includes [facility] Hospitalchloride, uyehd2824-78-18 09:53:00 Test Item Value Reference Range Interpretation Comments chloride, serum (test code = 100 mmol/L 97-108 2074-0) Count Includes [facility] Hospitalpotassium, wkthy6995-01-31 09:53:00 Test Item Value Reference Range Interpretation Comments potassium, serum (test code = 4.4 mmol/L 3.5-5.2 2823-3) Count Includes [facility] Hospitalsodium, lqbby5186-34-41 09:53:00 Test Item Value Reference Range Interpretation Comments sodium, serum (test code = 2951-2) 142 mmol/L 134-144 Count Includes [facility] Hospitalurea nitrogen/creatinine ratio, hsnaf8788-99-42 09:53:00 Test Item Value Reference Range Interpretation Comments urea nitrogen/creatinine ratio, serum 15 9-23 (test code = 3097-3) [facility] HealtheGFR if Lxdroskm1747-93-47 09:53:00 Test Item Value Reference Range Interpretation Comments eGFR if 105 >59 (test code = 53646-1) mL/min/((173/100).m2) Count Includes [facility] HospitalEstimated Glomerular Filtration Rate (calc)2015-03-03 09:53:00 Test Item Value Reference Range Interpretation Comments Estimated Glomerular 91 >59 Filtration Rate (calc) mL/min/((173/100).m2 (test code = 47109-7) ) Count Includes [facility] Hospitalcreatinine, xrxmp2458-26-14 09:53:00 Test Item Value Reference Range Interpretation Comments creatinine, serum (test code = 0.74 mg/dL 0.57-1.00 2160-0) Count Includes [facility] Hospitalurea nitrogen, rmyub7488-83-03 09:53:00 Test Item Value Reference Range Interpretation Comments urea nitrogen, blood (test code = 11 mg/dL 6-24 3094-0) Count Includes [facility] Hospitalblood glucose, jjqjqx8971-04-29 09:53:00 Test Item Value Reference Range Interpretation Comments blood glucose, random (test code = 96 mg/dL 65-99 2339-0) Count Includes [facility] Hospitalimmature granulocytes, percentage of total cells, blood 2015-03-03 09:53:00 Test Item Value Reference Range Interpretation Comments immature granulocytes, percentage of 0 % total cells, blood (test code = 54902-4) Count Includes [facility] Hospitalbasophil count, uqiogenk9496-31-83 09:53:00 Test Item Value Reference Range Interpretation Comments basophil count, absolute (test 0.0 x10E3/uL 0.0-0.2 code = 77245-3) [facility] HealthEosinophil Absolute Dganp3835-37-76 09:53:00 Test Item Value Reference Range Interpretation Comments Eosinophil Absolute Count (test 0.2 X10E3/UL 0.0-0.4 code = 78236-5) [facility] Healthmonocyte count, blood, qdhfepacw6624-36-84 09:53:00 Test Item Value Reference Range Interpretation Comments monocyte count, blood, automated 0.3 X10E3/UL 0.1-0.9 (test code = 742-7) [facility] Healthlymphocyte count, blood, wjsaitwmv6309-97-41 09:53:00 Test Item Value Reference Range Interpretation Comments lymphocyte count, blood, 1.7 X10E3/UL 0.7-3.1 automated (test code = 731-0) [facility] HealthAbsolute Mpvkhcelzss7206-15-14 09:53:00 Test Item Value Reference Range Interpretation Comments Absolute Neutrophils (test code 3.5 X10E3/UL 1.4-7.0 = 08050-5) [facility] Healthbasophils as percent of blood aqdvbzwtpn8041-23-46 09:53:00 Test Item Value Reference Range Interpretation Comments basophils as percent of blood 0 % leukocytes (test code = 707-0) [facility] Healtheosinophils as percent of blood glrmkwpmqi7300-09-74 09:53:00 Test Item Value Reference Range Interpretation Comments eosinophils as percent of blood 4 % leukocytes (test code = 713-8) [facility] Healthmonocytes as percent of blood jhtgshspyo5629-90-49 09:53:00 Test Item Value Reference Range Interpretation Comments monocytes as percent of blood 6 % leukocytes (test code = 5905-5) [facility] Healthlymphocytes as percent of blood zeqtouctck3640-26-10 09:53:00 Test Item Value Reference Range Interpretation Comments lymphocytes as percent of blood 30 % leukocytes (test code = 736-9) [facility] Healthneutrophils as percent of blood puxdnitdlq6679-05-16 09:53:00 Test Item Value Reference Range Interpretation Comments neutrophils as percent of blood 60 % leukocytes (test code = 770-8) [facility] Healthplatelet rpwtw5911-06-62 09:53:00 Test Item Value Reference Range Interpretation Comments platelet count (test code = 225 X10E3/UL 150-379 777-3) Count Includes [facility] Hospitalred blood cell distribution mrhwu9117-18-99 09:53:00 Test Item Value Reference Range Interpretation Comments red blood cell distribution width 13.6 % 12.3-15.4 (test code = 788-0) [facility] corpuscular hemoglobin concentration, WRE1004-85-08 09:53:00 Test Item Value Reference Range Interpretation Comments mean corpuscular hemoglobin 33.3 G/DL 31.5-35.7 concentration, RBC (test code = 786-4) Count Includes [facility] Hospitalmean corpuscular hemoglobin, ZGK6431-62-81 09:53:00 Test Item Value Reference Range Interpretation Comments mean corpuscular hemoglobin, RBC 35.4 pg 26.6-33.0 H (test code = 785-6) [facility] corpuscular volume, ZGT7696-58-49 09:53:00 Test Item Value Reference Range Interpretation Comments mean corpuscular volume, RBC (test 106 fL 79-97 H code = 787-2) Count Includes [facility] Hospitalhematocrit, naqgf6659-92-94 09:53:00 Test Item Value Reference Range Interpretation Comments hematocrit, blood (test code = 4544-3) 44.1 % 34.0-46.6 Count Includes [facility] Hospitalhemoglobin, xqljj2006-43-83 09:53:00 Test Item Value Reference Range Interpretation Comments hemoglobin, blood (test code = 14.7 g/dL 11.1-15.9 718-7) Count Includes [facility] Hospitalerythrocyte (RBC) fpaug9401-19-46 09:53:00 Test Item Value Reference Range Interpretation Comments erythrocyte (RBC) count (test 4.15 X10E6/UL 3.77-5.28 code = 789-8) Count Includes [facility] Hospitalleukocyte count, sqsjs3469-20-11 09:53:00 Test Item Value Reference Range Interpretation Comments leukocyte count, blood (test 5.8 X10E3/UL 3.4-10.8 code = 6690-2) Count Includes [facility] HospitalCD4/CD8 brsmy3757-16-10 09:53:00 Test Item Value Reference Range Interpretation Comments CD4/CD8 ratio (test code = 68795) 0.73 0.92-3.72 L Count Includes [facility] HospitalT-suppressor cells (CD8) as percent of blood lymphocytes 2015-03-03 09:53:00 Test Item Value Reference Range Interpretation Comments T-suppressor cells (CD8) as percent of 25.7 % 12.0-35.5 blood lymphocytes (test code = 3517) Count Includes [facility] Hospitalabsolute RZ89769-08-10 09:53:00 Test Item Value Reference Range Interpretation Comments absolute CD8 (test code = 57900) 437 109-897 Count Includes [facility] HospitalT-helper cells (CD4) as percent of blood lymphocytes 2015-03-03 09:53:00 Test Item Value Reference Range Interpretation Comments T-helper cells (CD4) as percent of 18.7 % 30.8-58.5 L blood lymphocytes (test code = 8123-2) Count Includes [facility] HospitalT-helper cells (CD4) lgqyw5927-90-45 09:53:00 Test Item Value Reference Range Interpretation Comments T-helper cells (CD4) count (test code 318 /UL 359-6399 L = 05996-8) Count Includes [facility]- XR CHEST 1 D4034-03-65 08:19:00 FAX: Yudith Crenshaw [phone] [place]: St: DIS FAX: Manuel Esteban [phone] Name: GUERRERO MURRIETA [facility] : 1960 Age/S: 53/F [address] [facility] Unit #: [id number] Loc: [place], [place] Phys: [place] [address] Acct: [id number] Dis Date: Status: DIS IN PHONE #: [phone] Exam Date: 02/27/2014 08 FAX #: [phone] Reason: COPD EXAMS: CPT CODE: [id number] XR CHEST 1 V 35997 CHEST, FRONTAL VIEW HISTORY: COPD FINDINGS: Since 02/26/14, lungs remain emphysematous and clear. The heart size is normal. Aorta is partially calcified. Minimal degenerative changes affect the thoracic spine. IMPRESSION: No ev idence of acute airspace disease. at 0819 Reported and signed by: Anita Gonzales M.D. CC: Yudith Eastman MD; Manuel Esteban MD Technologist: LEXI VINSON Trnrird Date/Time/By: 02/27/2014 (0819) : By: [email or web address] PAGE 1 Signed Report FAX: Yudith Crenshaw [phone] [place]: St: DIS FAX: Manuel Esteban MD [phone] Name: GUERRERO MURRIETA [facility] : 1960 Age/S: 53/F [address] [facility] Unit #: [id number] Loc: [place], [place]: [place] [address] Acct: [id number] Dis Date: Status: DIS IN PHONE #: [phone] Exam Date: 02/27/2014 08 FAX #: [phone] Reason: COPD EXAMS: CPT CODE: [id number] XR CHEST 1 V 50025 <Continued> Orig Print D/T: S: 02/27/2014 (0822) PAGE 2 Signed Report- XR CHEST 1 [id number] 21:21:00 FAX: Manuel Esteban MD [phone] [place]: St: DIS Name: GUERRERO MURRIETA [facility] : 1960 Age/S: 53/F [address] [facility] [id number] Loc: [place], [place]: [place] [address] Acct: [id number] Dis Date: Status: DIS IN PHONE #: [phone] Exam Date: 02/26/2014 1748 FAX #: [phone] Reason: CHEST PAIN EXAMS: CPT CODE: [id number] XR CHEST 1 V 58198 CHEST, FRONTAL VIEW HISTORY: CHEST PAIN FINDINGS: Since 02/03/14, lungs are emphysematous and clear. The heart size is normal. Aorta is partially calcified. The bones are intact. IMPRESSION: No evidence of acute airspace disease. at 2121 Reported and signed by: Anita Gonzales M.D. CC: Manuel Esteban MD Technologist: PEÑA SMITH [facility] Date/Time/By: 02/26/2014 (2120) : By: [email or web address] PAGE 1 Signed Report FAX: Manuel Esteban MD [phone] [place]: St: DIS----- Name: GUERRERO MURRIETA [facility] : 1960 Age/S: 53/F [address] [facility] #: [id number] Loc: [place], [place]: [place] [address] Acct: [id number] Dis Date: Status: DIS IN PHONE #: [phone] Exam Date: 02/26/2014 1748 FAX #: [phone] Reason: CHEST PAIN EXAMS: CPT CODE: [id number] XR CHEST 1 V 68746 <Continued> Orig Print D/T: S: 02/26/2014 (0278) PAGE 2 Signed Report- XR CHEST 1 [id number] 16:54:00 FAX: Amaya Estrada MD [phone] [place]: St: [facility] Name: GUERRERO MURRIETA [facility] : 1960 Age/S: 53/F [address] [facility] Unit#: [id number] Loc: [place], [place]: [place] [address] Acct: [id number] Dis Date: Status: UNK PHONE #: [phone] Exam Date: 02/03/2014 1622 FAX #: [phone] Reason: cp EXAMS: CPT CODE: [id number] XR CHEST 1 V 52102 REASON FOR EXAM: Chest pain COMPARISON: 2012. Chest, single view portable The lungs are hyperinflated and clear. Heart size is normal. No effusion or pneumothorax can be seen. Osseous structures appear to be intact. IMPRESSION: No acute cardiopulmonary disease. Hyperinflated lung pattern. at 4648 Reported and signed by: Zoran Fuller M.D. CC: Amaya Estrada MD Technologist: YESY LOCKETT Trnrird Date/Time/By: 02/03/2014 (5535) : By: [facility] PAGE 1 Signed Report FAX: Amaya Estrada MD [phone] [place]: St: UNK------- Name: GUERRERO MURRIETA [facility] : 1960 Age/S: 53/F [address] [facility] Unit #: [id number] Loc: [place], [place]: [place] [address] Acct: [id number] Dis Date: Status: [facility] PHONE #: [phone] Exam Date: 02/03/2014 1622 FAX #: [phone] Reason: cp EXAMS: CPT CODE: [id number] XR CHEST 1 V 21781 <Continued> Orig Print D/T: S: 02/03/2014 (4978) PAGE 2 Signed Report- CT ABD PELVIS W/KHJT2508-06-21 07:54:00 FAX: Julia Burns MD [phone] [place]: St: CAROL Name: GUERRERO MURRIETA [facility] : 1960 Age/S: 52/F [address] [facility] Unit: [id number] Loc: [place], [place]: [place] [address] Acct: [id number] Dis Date: Status: Ajaline PHONE #: [phone] Exam Date: 10/18/2013 2345 FAX #: [phone] Reason: gen'd abd pain, IV contrast only EXAMS: CPT CODE: [id number] CT ABD PELVIS W/CONT 82027 HISTORY: Abdominal pain, nausea and vomiting. CT [...] Signed Report (CONTINUED) FAX: Julia Burns MD [phone] [place]: St: [facility] -- Name: GUERRERO MURRIETA [facility] : 1960 Age/S: 52/F [address] [employer] Unit: [id number] Loc: [place], [place]: [place] [address] Acct: [id number] Dis Date: Status: [facility] PHONE #: [phone] Exam Date: 10/18/2013 7252 FAX #: [phone] Reason: gen'dabd pain, IV contrast only EXAMS: CPT CODE: [id number] CT ABD PELVIS W/CONT 93279 <Continued> Electronically Signed by Aureliano Fuller on10/19/2013 at 3940 Reported and signed by: Zoran Fuller M.D. CC: Julia Burns MD Technologist: YESY Ramirez Dt/Tm: 10/19/2013 (0754) [email or web address] Orig Print D/T: S: 10/19/2013 (0758 6.44 321.13 PAGE 2 Signed Report- XR CHEST 1 [id number] 21:46:00 FAX: Alec Damian MD [phone] [place]: St: [facility] FAX: Julia Burns MD [phone] Name: GUERRERO MURRIETA [facility] : 1960 Age/S: 52/F [address] [facility] Unit #: [id number] Loc: [place], [place]: [place] [address] Acct: [id number] Dis Date: Status: [facility] PHONE #: [phone] Exam Date: 10/18/20132131 FAX #: [phone] Reason: abd pain EXAMS: CPT CODE: [id number] XR CHEST 1 V 64493 CHEST, 1 VIEW HISTORY: abd pain FINDINGS: Since 05/18/13, the lungs remain hyperinflated is and clear. No consolidation, pleural effusion or pneumothorax. The heart size is normal. Aorta is partially calcified. The bones are intact. IMPRESSION: No evidence of acute airspace disease. COPD. ElectronicallySigned by Aureliano Gonzales on 10/18/2013 at 2146 Reported and signed by: Anita Gonzales M.D. CC: Alec aDmian MD; Julia Burns MD Technologist: PEÑA Ramirez Date/Time/By: 10/18/2013 (2145) : By: [email or web address] PAGE 1 Signed Report FAX: Alec Damian MD [phone] [place]: St: [facility] FAX: Julia Burns MD [phone] Name: GUERRERO MURRIETA NOLVIA [facility] : 1960 Age/S: 52/F [address] [facility] Unit #: [id number] Loc: [place], [place]: [place] [address] Acct: [id number] Dis Date: Status: UNK PHONE #: [phone] Exam Date: 10/18/20132131 FAX #: [phone] Reason: abd pain EXAMS: CPT CODE: [id number] XR CHEST 1 V 94397 <Continued> Orig Print D/T: S: 10/18/2013 (9754) PAGE 2 Signed Report- XR CHEST 1 [id number] 10:12:00 FAX: Mikhail Bender MD [phone] [place]: St: [facility] FAX: Yudith Crenshaw [phone] Name: GLENNYGUERRERO ANN [facility] : 1960 Age/S: 52/F [address] Unit #: [id number] Loc: [place], [place]: [place] [address] Acct: [id number] Dis Date: Status: [facility] PHONE #: [phone] Exam Date: 05/18/2013 09 FAX #: [phone] Reason: SOB EXAMS: CPT CODE: [id number] XR CHEST 1 V 41808 REASON FOR EX AM: Shortness of breath [...] MD; Yudith Eastman MD Technologist: ROE GARZA [facility] Date/Time/By: 05/18/2013 (1012) : By: [facility]MISS[facility] PAGE 1 Signed Report FAX: Mikhail Bender MD [phone] [place]: St: [facility]: Yudith Crenshaw [phone] Name: GUERRERO MURRIETA [facility] : 1960 Age/S: 52/F [address] Unit #: [id number] c: [place], [place]: [place] [address] Acct: [id number] Dis Date: Status: [facility] PHONE #: [phone] Exam Date: 05/18/2013904 FAX #: [phone] Reason: SOB EXAMS: CPT CODE: [id number] XR CHEST 1 V 65606 <Continued> Orig Print D/T: S: 05/18/2013 (1015) PAGE 2 Signed Report- MRI BRAIN W WO [id number] 13:45:00 FAX: Mikhail Bender MD [phone] [place]: St: [facility] FAX: Alfred Yudith Choi [phone] Name: GUERRERO MURRIETA [facility] : 1960 Age/S: 52/F [address] [facility] Unit #: [id number] Loc: [place], [place]: [place] [address] Acct: [id number] Dis Date: Status: K PHONE #: [phone] Exam Date: 05/15/2013950 FAX #: [phone] Reason: ANISOCORIA DIPLOPIS EXAMS: CPT CODE: [id number] MRI BRAIN W WO CONT 45470 CLINICAL HISTORY: Anisocoria, diplopia MRI brain ,with [...] be symmetric. Appropriate flow-void occurs in the nulato of [place]. No evidence of hemorrhage seen. 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 No current obstruction is seen. at 1341 Reported and signed by: Zoran Fuller M.D. CC: Mikhail Lamb MD; Yudith Eastman MD Technologist: MIO HSU; ELVIN RAMIREZ Trnscrd Date/Time/By: 05/15/2013 (8174) : By: JonathonMISSION [facility] PAGE 2 Signed Report FAX: Mikhail Bender MD [phone] [place]: St:[facility] FAX: Yudith Crenshaw [phone] Name: GUERRERO MURRIETA [facility] : 1960 Age/S: 52/F [address] [facility] Unit #: [id number] Loc: [place], [place]: [place] [address] Acct: [id number] Dis Date: Status: K PHONE #: [phone] Exam Date: 05/15/2013 0951 FAX #: [phone] Reason: ANISOCORIA DIPLOPIS EXAMS: CPT CODE: [id number] MRI BRAIN W WO CONT 04054 <Continued> Orig Print D/T: S: 05/15/2013 (5965) PAGE 3 Signed Report- CT CHEST W/O CONTRAST 2013-05-14 21:40:00 FAX: Mikhail Bender MD [phone] [place]: St: [facility] FAX: Yudith Crenshaw [phone] Name: GUERRERO MURRIETA [facility] : 1960 Age/S: 52/F [address] Unit: [id number] Loc: [place], [place]: [place] [address] Acct: [id number] Dis Date: Status: UNK PHONE #: [phone] Exam Date: 05/14/20131953 FAX #: [phone] Reason: SOB EXAMS: CPT CODE: [id number] CT CHEST W/O CONTRAST 22843 Reason for ex am, shortness of breath, [...] PAGE 1 Signed Report- XR CHEST 2 [id number] 17:37:00 FAX: Yudith Crenshaw [phone] [place]: St: UNK Name: GUERRERO MURRIETA [facility] : 1960 Age/S: 52/F [address] [facility] [employer] Unit#: [id number] Loc: [place], [place]: [place] [address] Acct: [id number] Dis Date: Status: K PHONE #: [phone] Exam Date: 05/14/2013 1548 FAX #: [phone] Reason: COPD PNEUMONIA EXAMS: CPT CODE: [id number] XR CHEST 2 V 71415 CHEST, 2 VIEWS HISTORY: COPD PNEUMONIA COMPARISON: [...] MD Technologist: PEÑA SMITH Trnscrd Date/Time/By: 05/14/2013 (4277) : By: [email or web address] PAGE 1 Signed Report FAX: Yudith Crenshaw [phone] [place]: St: UNK Name: GUERRERO MURRIETA [facility] : 1960 Age/S: 52/F [address] [facility] [id number] Loc: [place], [place] Phys: Мар[place] [address] Acct: [id number] Dis Date: Status: [facility] PHONE #: [phone] Exam Date: 05/14/2013 1548 FAX #: [phone] Reason: COPD PNEUMONIA EXAMS: CPT CODE: [id number] XR CHEST 2 V 21223 <Continued> Orig Print D/T: S: 05/14/2013 (8318) PAGE 2 Signed Report- XR CHEST 1 [id number] 16:06:00 FAX: Melida Borges [phone] [place]: St: [facility] Name: GUERRERO MURRIETA [facility] : 1960 Age/S: 52/F [address] [facility] [id number] Loc: [place], [place]: [place] [address] Acct: [id number] Dis Date: Status: [facility] PHONE #: [phone] Exam Date: 05/12/2013 1547 FAX #: [phone] Reason: copd/cough, shortness of breath EXAMS: CPT CODE: [id number] XR CHEST 1 V 04611 REASON FOR EXAM: Cough, COPD, shortness of breath COMPARISON: October 18, 2012. Chest, single view portable The lungs are hyperinflated consistent with COPD. More but no infiltrates are appreciated focally. Heart size is intact.. No effusion or pneumothorax can be seen. Osseous structures appear to be intact. IMPRESSION: COPD changes. Interstitial patterncould indicate interstitial pneumonia/ disease or non-cardiogenic edema. at 6759 Reported and signed by: Zoran Fuller M.D. CC: Melida Singh Technologist: LEXI HOLCOMB [facility] Date/Time/By: 05/12/2013 (6606) : By: [facility]athonMISS[facility] PAGE 1 Signed Report FAX: Melida Borges [phone] [place]: St: UNK ------ Name: GUERRERO MURRIETA [facility] : 1960Age/S: 52/F [address] [facility] [employer] Unit #: [id number] Loc: [place], [place]: [place] [address] Acct: [id number] Dis Date: Status: UNK PHONE #:[phone] Exam Date: 05/12/2013 1547 FAX #: [phone] Reason: copd/cough, shortness of breath EXAMS: CPT CODE: [id number] XR CHEST 1 V 54530 <Continued> Orig Print D/T: S: 05/12/2013 (4405) PAGE 2 Signed Report- CT ABD PELVIS W/[id number] 17:45:00 FAX: Bossman Nassar MD [place]: [facility]: UNK Name: GUERRERO MURRIETA [facility] : 1960 Age/S: 51/F [address] Unit: [id number] Loc: [place], [place]: [place] [address] Acct: [id number] Dis Date: Status: UNK PHONE #: [phone] Exam Date: 12/20/2012 1729 FAX #: [phone] Reason: generalized abd pain EXAMS: CPT CODE: [id number] CT ABD PELVIS W/CONT 16642 HISTORY: Generalized abdominal pain. CT abdomen contrast- [...] Signed Report (CONTINUED) FAX: Bossman Nassar MD [place]: St: [facility] Name: GUERRERO MURRIETA [facility] : 1960 Age/S: 51/F [address] [facility] Unit: [id number] Loc: [place], [place]: [place] [address] Acct: [id number] Dis Date: Status: [facility] PHONE #: [phone] Exam Date: 12/20/2012 1729 FAX #: [phone] Reason: generalized abd pain EXAMS: CPT CODE: [id number] CT ABD PELVIS W/CONT 04059 <Continued> CONCLUSION: No acute abnormality in the deep pelvis. Hysterectomy. Sigmoid diverticulosis without obvious active disease. Limited bowel loop assessment however. at 4131 Reported and signed by: RobertC. Alina M.D. CC: Bossman Nassar MD Technologist: SILVANO WRIGHT Trnrird Dt/Tm: 12/20/2012 (8377) t.[email or web address] Orig Print D/T: S: 12/20/2012 (5451 PAGE 2 Signed Report- XR CHEST 2 [id number] 14:58:00 FAX: Bossman Nassar MD [place]: St: [facility] Name: GUERRERO MURRIETA [facility] : 1960 Age/S: 51/F [address] [facility] Unit#: [id number] Loc: [place], [place]: [place] [address] Acct: [id number] Dis Date: Status: [facility] PHONE #: [phone] Exam Date: 10/18/2012 1416 FAX #: [phone] Reason: cough, fever EXAMS: CPT CODE: [id number] XR CHEST 2 V 64702 CHEST, 2 VIEWS HISTORY: cough, fever FINDINGS: Since 09/18/12, minimal atelectasis is noted in the left lower lobe. The previously seen faint density in the lung base has resolved. The lungs are otherwise clear. The heart size is normal. Minimal degenerative changes affect the thoracic spine. IMPRESSION: Aside from minimal atelectasis, no evidence of acute airspacedisease. at 0248 Reported and signed by: Anita Gonzales M.D. CC: Bossman Nassar MD Technologist: ANITA Ramirez Date/Time/By: 10/18/2012 (1573) : By: [email or web address] PAGE 1 Signed Report FAX: Bossman Belcher MD [place]: St: UNK Name: GUERRERO MURRIETA [facility] : 1960 Age/S: 51/F [address] [facility] Unit #: [id number] Loc: [place], [place]: [place] [address] Acct: [id number] Dis Date: Status: UNK PHONE #: [phone] Exam Date: 10/18/2012 1416 FAX#: [phone] Reason: cough, fever EXAMS: CPT CODE: [id number] XR CHEST 2 V 71172 <Continued> Orig Print D/T: S: 10/18/2012 (1501) PAGE 2 Signed Report- XR CHEST 1 [id number] 13:03:00 [place]: St: UNK Name: GUERRERO MURRIETA [facility] : 1960 Age/S: 51/F [address] [facility] [facility] [place] Unit#: [id number] Loc: [place], [place]: [place] [address] Acct: [id number] Dis Date: Status: [facility] PHONE #: [phone] Exam Date: 09/18/2012 1234 FAX #: [phone] Reason: CHEST PAIN EXAMS: CPT CODE: [id number] XR CHEST 1 V 31533 CHEST, 1 VIEW HISTORY: chest pain. FINDINGS: [...] : By: [email or web address] PAGE 1 Signed Report [place]: St: [facility] Name: GUERRERO MURRIETA [facility] : 1960 Age/S: 51/F [address] [facility] [employer] [facility] [place] Unit #: [id number] Loc: [place], [place]: [place] [address] Acct: [id number] Dis Date: Status: [facility] PHONE #: [phone] Exam Date: 09/18/2012 1234 FAX #: [phone] Reason: CHEST PAIN EXAMS: CPT CODE: [id number] XR CHEST 1 V 84988 <Continued> Orig Print D/T: S: 09/18/2012 (5420) PAGE 2 Signed Report- CT HEAD/BRAIN W/O [id number] 11:38:00 [place]: St: UNK Name: GUERRERO MURRIETA [facility] : 1960 Age/S: 51/F [address] [facility]: [id number] Loc: [place], [place]: [place] [address] Acct: [id number] Dis Date: Status: UNK PHONE #: [phone] Exam Date: 09/18/2012 1135 FAX #: [phone] Reason: dizzy EXAMS: CPT CODE: [id number] CT HEAD/BRAIN W/O CONT 68629 HISTORY: Dizziness. TECHNIQUE: Axial noncontrastCT images of [...] Sorensen CC: Technologist: ARIEL Ramirez Dt/Tm: 09/18/2012 (2779) tMITRA Orig Print D/T: S: 09/18/2012 (9023 PAGE 1 Signed Report
[2021-04-08 21:59] LABS: Hematocrit 39.6 % (36.0-45.0); Lymphocytes % 28.6 % (15.3-44.8); RBC Red Blood Cell Count 3.93 M/uL (3.86-4.86)
[2021-04-08 22:19] LABS: Potassium 3.8 mmol/L (3.5-5.1)
[2021-04-08] MEDS ORDERED: GLUCAGON 1 MG/VIAL ONE (22:22)
[2021-04-08] MEDS ORDERED: LEVALBUTEROL 1.25 MG/3 ML NEB ONE (22:22)
[2021-04-08] MEDS ORDERED: NA CHLORIDE 0.9% 500 ML ONE (22:22)
--- NOTE | 2021-04-08 23:56 | ER ---
Nurse's Notes [facility] Name: Lucia Arias Age: 60 yrs Sex: Female : 1960 Arrival Date: 04/08/2021 Time: 21:38 Bed 7 Private MD: Diagnosis: Chronic obstructive pulmonary disease with (acute) exacerbation;Esophageal foreign body, candy, resolved Presentation: 04/08 21:38 Chief complaint: EMS states: was toned for SOB and , Pt with Hx of COPD, was 94-95% wh in RA, was given A\T\A treatment and 125 Solumedrol. Coronavirus screen: Client denies travel out of the [place] in the last 14 days. difficulty breathing, shortness of breath. Ebola Screen: Patient negative for fever greater than or equal to 101.5 degrees Fahrenheit, and additional compatible Ebola Virus Disease symptoms Patient denies exposure to infectious person. Initial Sepsis Screen: Does the patient meet any 2 criteria? HR > 90 bpm. Does the patient have a suspected source of infection? No. Patient's initial sepsis screen is negative. Risk Assessment: Do you want to hurt yourself or someone else? Patient reports no desire to harm self or others. Onset of symptoms was April 08, 2021. 21:38 Method Of Arrival: EMS: [facility] 21:38 Acuity: LATONYA 3 21:46 Care prior to arrival: Medication(s) given: Albuterol Neb Atrovent Neb x 1, Solumedrol wh 125 mg IV initiated. 18 GA, in the left antecubital area, Med neb given. Historical: - Allergies: 21:43 Codeine; 21:43 Demerol; 21:43 PENICILLINS; 21:43 Sulfa (Sulfonamide Antibiotics); wh - PMHx: 21:43 Angina; Anxiety; ATHEROSCLEROSIS; Bipolar disorder; CAD; Cellulitis; Chronic pain; wh COPD; Depression; Diabetes - IDDM; Difficulty walking; GERD; HIV; Hyperlipidemia; LACK OF COORDINATION; MUSCLE WEAKNESS; neuropathy; Pneumonia; pulmonary edema; Schizophrenia; UTI; vitamin d deficiency; - Immunization history:: Adult Immunizations up to date. - Social history:: Smoking status: Patient reports the use of cigarette tobacco products, smokes one-half pack cigarettes per day. - Family history:: not pertinent. - Hospitalizations: : No recent hospitalization is reported. Screenin:45 Abuse screen: Denies threats or abuse. Nutritional screening: No deficits noted. jb4 Tuberculosis screening: No symptoms or risk factors identified. Fall Risk None identified. Assessment: 21:45 General: Appears in no apparent distress. comfortable, Behavior is calm, cooperative, jb4 appropriate for age. Pain: Denies pain. Neuro: Level of Consciousness is awake, alert, obeys commands, Oriented to person, place, time, situation. Cardiovascular: Patient's skin is warm and dry. Respiratory: Airway is patent Respiratory effort is even, unlabored, Respiratory pattern is regular, symmetrical. GI: No signs and/or symptoms were reported involving the gastrointestinal system. : EENT: No signs and/or symptoms were reported regarding the EENT system. Derm: Skin is intact, Skin is pink, warm \T\ dry. Musculoskeletal: Circulation, motion, and sensation intact. Range of motion: intact in all extremities. 22:45 Reassessment: Patient appears in no apparent distress at this time. Patient and/or jb4 family updated on plan of care and expected duration. Pain level reassessed. Patient is alert, oriented x 3, equal unlabored respirations, skin warm/dry/pink. 04/09 00:07 Reassessment: Spoke with [facility] Nurse, report given. Vital Signs: 0512 21:38 Pulse 102; Resp 16; Temp 98.7; Pulse Ox 95% on R/A; Weight 91.17 kg; Height 5 ft. 2 in. (157.48 cm); 23:00 BP 112 / 66; Pulse 97; Resp 17; Pulse Ox 92% on 2 lpm NC; jb4 21:38 Body Mass Index 36.76 (91.17 kg, 157.48 cm) ED Course: 21:38 Patient arrived in ED. 21:38 Vern Kidd MD is Attending Physician. rn 21:42 Triage completed. 21:45 Patient has correct armband on for positive identification. Placed in gown. Bed in low jb4 position. Call light in reach. Side rails up X 1. Pulse ox on. NIBP on. 21:46 Maintain EMS IV. Dressing intact. Good blood return noted. Site clean \T\ dry. 21:49 Beau Card, AUBREE is Primary Nurse. jb4 22:15 XRAY Chest (1 view) In Process Unspecified. EDMS 04/09 00:15 No provider procedures requiring assistance completed. IV discontinued, intact, jb4 bleeding controlled, No redness/swelling at site. Pressure dressing applied. Administered Medications: 04/08 22:09 Drug: Glucagon 1 mg Route: IVP; Site: left antecubital; jb4 04/09 00:05 Follow up: Response: No adverse reaction 04/08 22:10 Drug: Xopenex (levalbuterol) (3) 1.25 mg Route: Inhalation; jb4 22:40 Follow up: Response: No adverse reaction; Marked relief of symptoms jb4 22:10 Drug: NS 0.9% 500 ml Route: IV; Rate: bolus; Site: left antecubital; jb4 22:40 Follow up: Response: No adverse reaction; IV Status: Completed infusion; IV Intake: jb4 500ml Intake: 22:40 IV: 500ml; Total: 500ml. jb4 Outcome: 23:56 Discharge ordered by . rn 04/09 00:15 Discharged to residential. jb4 Condition: stable Discharge instructions given to patient, EMS, Instructed on discharge instructions, follow up and referral plans. medication usage, Demonstrated understanding of instructions, follow-up care, medications, Prescriptions given X 2. 00:16 Patient left the ED. jb4 Signatures: Dispatcher [employer] [facility] Vern Kidd MD MD rn Bryson, James, RN RN jb Marysol Hendrickson RN RN
--- NOTE | 2021-04-08 23:57 | EDPHYS ---
Physician Documentation [facility] Name: Lucia Arias Age: 60 yrs Sex: Female : 1960 Arrival Date: 04/08/2021 Time: 21:38 Bed 7 Private MD: ED Physician Vern Kidd HPI: 04/08 21:46 This 60 yrs old Female presents to ER via EMS with complaints of Shortness Of rn Breath. 21:46 The patient has shortness of breath at rest. Onset: The symptoms/episode began/occurred rn just prior to arrival. Duration: The symptoms are continuous. The patient's shortness of breath is aggravated by swallowing, is alleviated by nebulizer treatment. Associated signs and symptoms: Pertinent positives: non-productive cough, Pertinent negatives: fever, hemoptysis, loss of consciousness. Severity of symptoms: At their worst the symptoms were moderate in the emergency department the symptoms have improved. The patient has experienced similar episodes in the past. The patient has not recently seen a physician. Reports was coloring pictures, feeling fine, ate a piece of [place] candy, felt it didn't pass well, felt liek was choking, feels better but feels "Something weird" in right throat, no fever, does not feel ill. No known sick contacts. . Historical: - Allergies: 21:43 Codeine; 21:43 Demerol; 21:43 PENICILLINS; 21:43 Sulfa (Sulfonamide Antibiotics); wh - PMHx: 21:43 Angina; Anxiety; ATHEROSCLEROSIS; Bipolar disorder; CAD; Cellulitis; Chronic pain; wh COPD; Depression; Diabetes - IDDM; Difficulty walking; GERD; HIV; Hyperlipidemia; LACK OF COORDINATION; MUSCLE WEAKNESS; neuropathy; Pneumonia; pulmonary edema; Schizophrenia; UTI; vitamin d deficiency; - Immunization history:: Adult Immunizations up to date. - Social history:: Smoking status: Patient reports the use of cigarette tobacco products, smokes one-half pack cigarettes per day. - Family history:: not pertinent. - Hospitalizations: : No recent hospitalization is reported. ROS: 21:46 Constitutional: Negative for fever, chills, and weight loss, Eyes: Negative for injury, rn pain, redness, and discharge, Neck: Negative for injury, pain, and swelling, Cardiovascular: Negative for chest pain, palpitations, and edema, Respiratory: Negative for wheezing, and pleuritic chest pain, Abdomen/GI: Negative for abdominal pain, nausea, vomiting, diarrhea, and constipation, Back: Negative for injury and pain, MS/Extremity: Negative for injury and deformity, Skin: Negative for injury, rash, and discoloration, Neuro: Negative for headache, weakness, numbness, tingling, and seizure. Exam: 21:46 Constitutional: This is a well developed, well nourished patient who is awake, alert, rn and in no acute distress. Head/Face: Normocephalic, atraumatic. ENT: No stridor, no oral swelling Neck: Trachea midline, no thyromegaly or masses palpated, and no cervical lymphadenopathy. Supple, full range of motion without nuchal rigidity, or vertebral point tenderness. No Meningismus. Cardiovascular: Regular rate and rhythm. No pulse deficits. Respiratory: No increased work of breathing, no retractions or nasal flaring. Faint wheezing bilaterally. Abdomen/GI: Soft, non-tender Skin: Warm, dry, no rashes, no urticaria MS/ Extremity: Pulses equal, no cyanosis. Neuro: Awake and alert, GCS 15 Vital Signs: 21:38 Pulse 102; Resp 16; Temp 98.7; Pulse Ox 95% on R/A; Weight 91.17 kg; Height 5 ft. 2 in. wh (157.48 cm); 23:00 BP 112 / 66; Pulse 97; Resp 17; Pulse Ox 92% on 2 lpm NC; jb4 21:38 Body Mass Index 36.76 (91.17 kg, 157.48 cm) MDM: 21:38 Patient medically screened. rn 21:49 Differential diagnosis: Anxiety Reaction Bronchitis Chronic Obstructive Pulmonary rn Disease esophageal foreign body. 23:52 Data reviewed: vital signs, nurses notes, lab test result(s), EKG, radiologic studies, rn plain films, and as a result, I will discharge patient. Counseling: I had a detailed discussion with the patient and/or guardian regarding: the historical points, exam findings, and any diagnostic results supporting the discharge/admit diagnosis, lab results, radiology results, the need for outpatient follow up, to return to the emergency department if symptoms worsen or persist or if there are any questions or concerns that arise at home. Response to treatment: the patient's symptoms have markedly improved after treatment, and as a result, I will discharge patient. Special discussion: I discussed with the patient/guardian in detail that at this point there is no indication for admission to the hospital. It is understood, however, that if the symptoms persist or worsen the patient needs to return immediately for re-evaluation. ED course: Pt feels much better, resting comfortably, feels like food bolus has passed, cxr without penumonia, covid neg, procal normal, wbc wnl. Denies sob. Will dc home with steroids and inhaler prn for COPD exacerbation. . 04/08 21:44 Order name: COVID-19 : Document "Date of Symptom Onset" if Symptomatic. rn 04/08 21:44 Order name: Procalcitonin 04/08 21:44 Order name: CBC with Diff rn 04/08 21:44 Order name: Basic Metabolic Panel 04/08 21:45 Order name: Procalcitonin; Complete Time: 23:50 EDMS 04/08 21:44 Order name: IV Start; Complete Time: 21:46 rn 04/08 21:44 Order name: XRAY Chest (1 view) 04/08 21:45 Order name: CBC with Automated Diff; Complete Time: 22:52 EDMS 04/08 21:45 Order name: Basic Metabolic Panel; Complete Time: 22:52 EDMS 04/08 23:47 Order name: SARS-COV-2 RT PCR; Complete Time: 23:50 EDMS 04/08 21:44 Order name: PO challenge; Complete Time: 21:45 rn Administered Medications: 22:09 Drug: Glucagon 1 mg Route: IVP; Site: left antecubital; jb4 04/09 00:05 Follow up: Response: No adverse reaction 04/08 22:10 Drug: Xopenex (levalbuterol) (3) 1.25 mg Route: Inhalation; jb4 22:40 Follow up: Response: No adverse reaction; Marked relief of symptoms jb4 22:10 Drug: NS 0.9% 500 ml Route: IV; Rate: bolus; Site: left antecubital; jb4 22:40 Follow up: Response: No adverse reaction; IV Status: Completed infusion; IV Intake: jb4 500ml Disposition: 04/08/21 23:56 Discharged to Home. Impression: Chronic obstructive pulmonary disease with (acute) exacerbation, Esophageal foreign body, candy, resolved. - Condition is Stable. - Discharge Instructions: Chronic Obstructive Pulmonary Disease, Swallowed Foreign Body, Adult. - Prescriptions for Prednisone 20 mg Oral Tablet - take 3 tablet by ORAL route once daily for 5 days; 15 tablet. Albuterol Sulfate 90 mcg/actuation - inhale 1-2 puff by INHALATION route every 4-6 hours; 1 Inhaler. - Medication Reconciliation Form, Thank You Letter, Antibiotic Education, Prescription Opioid Use form. - Follow up: Private Physician; When: As needed; Reason: Recheck today's complaints, Re-evaluation by your physician. - Problem is an acute exacerbation. - Symptoms have improved. Signatures: Dispatcher [employer] [facility] Vern Kidd MD MD rn Bryson, James, RN RN jb Marysol Hendrickson RN RN Corrections: (The following items were deleted from the chart) 22:45 21:44 CORONAVIRUS ordered. [facility] 04/09 00:16 04/08 23:56 04/08/2021 23:56 Discharged to Home. Impression: Chronic obstructive jb4 pulmonary disease with (acute) exacerbation; Esophageal foreign body, candy, resolved. Condition is Stable. Forms are Medication Reconciliation Form, Thank You Letter, Antibiotic Education, Prescription Opioid Use. Follow up: Private Physician; When: As needed; Reason: Recheck today's complaints, Re-evaluation by your physician. Problem is an acute exacerbation. Symptoms have improved. rn
[2021-04-09 00:20] VITALS: TEMP 98.7
[2021-04-09 00:22] VITALS: BP 112/66; O2SAT 92
--- NOTE | 2021-04-09 07:32 | RAD REPORT ---
EXAM DESCRIPTION: RAD - Chest Single View - 04/08/2021 10:15 pm CLINICAL HISTORY: DYSPNEA COMPARISON: Portable January 03 TECHNIQUE: AP portable chest image was obtained 04/08/2021 10:15 pm . FINDINGS: No peripheral mass or consolidation. Interstitial pattern is increased slightly from promi nent baseline comparison study. Heart size and vasculature are normal range. No measurable pleural ef fusion and no pneumothorax. No acute bony abnormality seen. No acute aortic findings suspected. IMPRESSION: Mild interstitial edema or infiltrate pattern superimposed on chronic lung disease.
== END 2021-04-09 00:16 | disposition home or self-care (01) ==
LOC: ER 21:33
DX: J44.1 Chronic obstructive pulmonary disease with (acute) exacerbation (principal); F17.210 Nicotine dependence, cigarettes, uncomplicated; Z20.822 Contact with and (suspected) exposure to COVID-19; Z21 Asymptomatic human immunodeficiency virus [HIV] infection status; Z88.0 Allergy status to penicillin; Z88.2 Allergy status to sulfonamides; Z88.5 Allergy status to narcotic agent
CPT/HCPCS: 85025; 80048; 36415; 84145; 71045; 96374; 99284; U0003; J1610; J7040

== ENCOUNTER 2021-12-05 05:45 | Inpatient (IN) | payer OTHER ==
[2021-12-05] MEDS ORDERED: LEVALBUTEROL 1.25 MG/3 ML NEB ONE (05:50)
--- OUTSIDE RECORDS SUMMARY | 2021-12-05 05:56 | XMS REPORT | Continuity of Care Document ---
:1960 Author Organization [facility] t Address [address] [place] [address] Care Team Providers Name Role Phone KNOW Attending Clinician Unavailable Zahraa Attending Clinician [phone] Nan Attending Clinician Unavailable Ritchie Moore Attending Clinician Unavailable Lance Attending Clinician Unavailable Catie Obrien Attending Clinician Unavailable Rosas Attending Clinician [phone] Juan A Attending Clinician [phone] Rakesh Attending Clinician Unavailable Lance Attending Clinician Unavailable Conor Attending Clinician [phone] Leonard Attending Clinician [phone] Ed Attending Clinician Unavailable KNOW Admitting Clinician Unavailable Zahraa Stevens [phone] Problems Condition Condition Condition Status Onset Resolution Last Treating Co mments Source Name Details Category Date Date Treatment Clinician Date NONSPEC Condition Active 2020-02-07 Abel Vital RXN CMI 3-12 10:56:38 Husam Lassiter MSR G-IFN 00:00: ty ANTIG RSPN 00 Health NO ACT TB DIZZINESS Condition Active 2017-10-13 Abel Vital 8-02 09:19:20 Husam Lassiter 00:00: ty 00 Health Hyperlipid Condition Active 2020-02-07 Abel Vital emia 7-21 10:44:35 Husam Lassiter 00:00: ty 00 Health Preventive Condition Active 2015-112017-10-13 Abel Vital health 2-06 09:19:20 Husam Lassiter care 00:00: ty 00 Health Screening, Condition Active 2017-10-13 Abel Vital colon 8-10 09:19:20 Husam Lassiter cancer 00:00: ty 00 Health Hip Condition Active 2016-07-07 Sarabjit Vital egacy arthralgia 4-27 08:45:03 Husam Ricci uni 00:00: ty 00 Health COPD Condition Active 2020-02-07 Sarabjit Vital egacy 4-21 10:44:35 Husam Lassiter 00:00: ty 00 Health HIV Condition Active 2020-02-07 Zahraa, hussein 15 0 [facility] INFECTION 10:44:35 Husam Commu ni ty Health Diabetes Condition Active 2020-02-07 Zahraa Legalison mellitus, 10:44:35 Husam Commu ni type II ty Health Hysterecto Condition Active 2016-07-07 Abel Vital my, 08:55:52 Husam Lassiter History of ty Health SCHIZOPHRE Condition Active 2016-07-07 Abel Vital MARELY 08:45:03 Husam Lassiter ty Health Closed Closed Problem Active [facility] [...] [facility] 04-19 Clear 00:00: [place] 00 [facility] penicill DA Active [facility] in V 04-19 Clear 00:00: [place] 00 [facility] CODEINE Drug Active High [facility] allergy Criticali 03-18 Commun i (disorde ty 00:00: ty r) 00 Health PENICILL Drug Active High [facility] IN allergy Criticali 03-18 Commun i (disorde ty 00:00: ty r) 00 Health penicill Adverse Active Info Not [facility] Reaction [facility] codeine Adverse Active Info Not [facility] Reaction [facility] Social History Social Habit Start Date Stop Date Quantity Comments Source time of call 2021-07-17 2021-07-17 07/17/2021 11:37 [facility] 11:36:30 11:36:30 AM [facility] drug use 2020-12-02 2020-12-02 Previously [facility] 10:39:40 10:39:40 [facility] alcohol use 2020-12-02 2020-12-02 Previously [facility] 10:39:40 10:39:40 [facility] smoking, advice to 2020-12-02 2020-12-02 Yes [facility] quit 10:39:40 10:39:40 [facility] sexual orientation 2020-12-02 2020-12-02 Heterosexual Lega cy 10:39:40 10:39:40 [facility] social history E&M 2020-12-02 2020-12-02 . Not [place] 10:39:40 10:39:40 homeless. Born in [facility]. City: On license of [facility]. State: [place]. Not employed. Gender of partner(s): male. Sexually Active: No. Sex at : female. social history 2020-12-02 2020-12-02 reviewed today [facility] reviewed E&M 10:39:40 10:39:40 [facility] PHQ2 Questionairre 2020-12-02 2020-12-02 [facility] Score 10:39:40 10:39:40 [facility] is there any chance 2020-12-02 2020-12-02 No Legac y that you could be 10:39:40 10:39:40 Communi ty ? Health tobacco use 2020-12-02 2020-12-02 Currently [facility] (cigarettes, cigar, 10:39:40 10:39:40 Commu nity chew, pipe) Health assessment of health 2020-12-02 2020-12-02 Limited Lega cy literacy (NCQA [facility] 10:39:40 10:39:40 Commu nity 2014 Standards, Health 3C10) albumin, serum 2020-11-18 2020-11-18 4.0 g/dL [facility] 10:28:00 10:28:00 [facility] passive cigarette 2020-02-07 2020-02-07 No [facility] smoke exposure 10:26:43 10:26:43 [facility] if the patient is 2020-02-07 2020-02-07 No [facility] using/has used a 10:26:43 10:26:43 Communit y vaping item, Health Current, Former, Never Used, Not asked cigarettes, number 2017-06-29 2017-06-29 5-6 [facility] smoked per day 08:33:26 08:33:26 [facility] Health No 2016-08-31 2016-08-31 [facility] 12:23:52 12:23:52 [facility] cigar use 2016-08-31 2016-08-31 No [facility] 12:23:52 12:23:52 [facility] age when patient 2016-08-31 2016-08-31 [facility] began smoking 12:23:52 12:23:52 [facility] cigarette use 2016-08-31 2016-08-31 Yes [facility] 12:23:52 12:23:52 [facility] What type of drug 2015-03-18 2015-03-18 cocaine [facility] was used 10:06:41 10:06:41 [facility] sex at 2015-03-18 2015-03-18 female [facility] 10:06:41 10:06:41 [facility] patient considered 2015-03-18 2015-03-18 No [facility] to be homeless 10:06:41 10:06:41 [facility] Smoking Status Start Date Stop Date Source Smokes tobacco daily (finding) 2020-12-02 10:39:40 [facility] Medications Ordered Filled Start Stop Current Ordering Indication Dosage Frequency Signature Comments Components Source Medication Medication Date Date Medication? Clinician (SIG) Name Name TRISTON Yes 1{Table 1xD 1 by mouth [place] (SERTRALINE 1-06 t} Every Communi HCL) 50 [...] day as Health needed for constipati on (BUPROPION 2020- No 1{Table 2xD 1 By [...] 1 Twice a [place] (ILOPERIDON 3-14 -06 t} Day Communi E) 8 MG 00:00: 00:00 ty TABS 00 :00 Health BREO 2020- No 1 [facility] ELLIPTA 3-14 -06 inhalation Commu ni (FLUTICASON 00:00: 00:00 Every Day ty E 00 :00 Health FUROATE-BAMBI ANTEROL) 100-25 MCG/INH AEPB (MECLIZINE 2018- No 1 by mouth [facility] HCL) 25 MG 8-27 3 times a Com mychal TABS 00:00: 00:00 day as ty 00 :00 needed for Health dizziness (NICOTINE) 2019- No [facility] 14-7 1-19 -14 Communi MG/24HR KIT 00:00: 00:00 ty 00 :00 Health (NAPROXEN) 2019- No 1 by mouth [facility] 500 MG TABS 03-24-14 twice a Comm uni 00:00: 00:00 day as ty 00 :00 needed for Health pain BENZTROPINE Yes [facility] MESYLATE - Communi (BENZTROPIN 00:00: ty E MESYLATE 00 Health TABS) TABS LIPITOR 2020- No [facility] (ATORVASTAT 03-08 Communi IN CALCIUM 00:00: 00:00 ty TABS) TABS 00 :00 Health DULOXETINE 2020- No [facility] HCL 03-08 Communi (DULOXETINE 00:00: 00:00 ty HCL CPEP) 00 :00 Health CPEP OMEPRAZOLE 2018- No [facility] CPDR 03-08 Communi 00:00: 00:00 ty 00 :00 Health SEROQUEL 2018- No [facility] (QUETIAPINE 03-08 Communi FUMARATE 00:00: 00:00 ty TABS) TABS 00 :00 Health VENLAFAXINE 2018- No Legac y HCL 03-08 Communi (VENLAFAXIN 00:00: 00:00 ty E HCL TABS) 00 :00 Health TABS TRIUMEQ Yes Husam Take 1 [facility] (ABACAVIR-D - [place] [facility] OLUTE[facility]RAVIR 00:00: mouth once ty -LAMIVUD) 00 a day with Heal th 600-50-300 or without MG TABS food SPIRIVA Yes Husam Inhale 1 [facility] HANDIHALER [...] Source oxygen saturation, 2020-12-02 10:39:40 94 /min [facility] Health blood pressure, 2020-12-02 10:39:40 73 mm[Hg] Legac y [facility] diastolic Health blood pressure, 2020-12-02 10:39:40 105 mm[Hg] Legac [facility] systolic Health pulse rate 2020-12-02 10:39:40 104 /[facility] temperature E&M 2020-12-02 10:39:40 98.1 [degF] [facility]&M 2020-12-02 10:39:40 209 [facility]_av[facility] weight in kilograms 2020-12-02 10:39:40 95 kg [facility] E&M Health height in 2020-12-02 10:39:[address] [facility] C ommunity centimeters E&M Health oxygen saturation, 2020-05-28 09:58:55 95 /min [facility] blood pressure, 2020-05-28 09:58:55 70 mm[Hg] Legac [facility] diastolic Health blood pressure, 2020-05-28 09:58:55 125 mm[Hg] Legac y [facility] systolic Health pulse rate 2020-05-28 09:58:55 89 /min [facility] Health temperature E&M 2020-05-28 09:58:55 98.2 [degF] Legac [facility] Health height in 2020-05-28 09:58:[address] [facility] C ommunity centimeters E&M Health oxygen saturation, 2020-02-07 10:26:43 90 /min [facility] Health blood pressure, 2020-02-07 10:26:43 71 mm[Hg] Legac [facility] diastolic Health blood pressure, 2020-02-07 10:26:43 101 mm[Hg] Legac y [facility] systolic Health pulse rate 2020-02-07 10:26:43 112 /min [facility] Health temperature E&M 2020-02-07 10:26:43 98.7 [degF] [facility] weight E&M 2020-02-07 10:26:43 193 [lb_av] [facility] C ommunity Health weight in kilograms 2020-02-07 10:26:43 87.73 kg [facility] E& Health height in 2020-02-07 10:26:43 157.48 cm [facility] ommunity centimeters E&M Health temperature site 2020-02-07 10:26:43 oral Lega [facility] Health oxygen saturation, 2019-10-04 07:16:02 98 /min [facility] oximetry Health blood pressure, 2019-10-04 07:16:02 68 mm[Hg] Legac y [facility] diastolic Health blood pressure, 2019-10-04 07:16:02 103 mm[Hg] Legac [facility] systolic Health pulse rate 2019-10-04 07:16:02 81 /min [facility] temperature E&M 2019-10-04 07:16:02 98.6 [degF] Legac y [facility] Health weight E&M 2019-10-04 07:16:02 169.60 [lb_av] [facility] in kilograms 2019-10-04 07:16:02 77.09 kg [facility] E& Health height in 2019-10-04 07:16:02 157.48 [facility] E[facility]M Health temperature site 2019-10-04 07:16:02 oral Lega [facility] Health oxygen saturation, 2019-06-07 09:23:42 89 /min [facility] oximetry Health pulse rate 2019-06-07 09:23:42 95 /min [facility] Health temperature E&M 2019-06-07 09:23:42 97.3 [degF] Legac [facility] Health blood pressure, 2019-06-07 09:23:42 60 mm[Hg] Legac y [facility] diastolic Health blood pressure, 2019-06-07 09:23:42 92 mm[Hg] Legac [facility] systolic Health weight E&M 2019-06-07 09:23:42 180 [lb_av] [facility] weight in kilograms 2019-06-07 09:23:42 81.82 kg [facility] E& Health height in 2019-06-07 09:23:42 157.48 cm [facility] ommunity centimeters E&M Health temperature site 2019-06-07 09:23:42 oral Lega cy [facility] Health blood pressure, 2019-02-08 07:52:46 80 mm[Hg] Legac y [facility] diastolic Health blood pressure, 2019-02-08 07:52:46 110 mm[Hg] Legac y [facility] systolic Health oxygen saturation, 2019-02-08 07:52:46 89 /min [facility] oximetry Health pulse rate 2019-02-08 07:52:46 126 /min [facility] temperature E&M 2019-02-08 07:52:46 98.6 [degF] Legac y [facility] Health weight E&M 2019-02-08 07:52:46 189.13 [lb_av] [facility] Health weight in kilograms 2019-02-08 07:52:46 85.97 kg [facility] E& Health height in 2019-02-08 07:52:[address] [facility] C ommunity centimeters E&M Health temperature site 2019-02-08 07:52:46 oral Lega [facility] Health oxygen saturation, 2018-09-26 07:50:53 98 /min [facility] oximetry Health respiratory rate E&M 2018-09-26 07:50:53 16 /min [facility] Health pulse rate 2018-09-26 07:50:53 78 /[facility] temperature E&M 2018-09-26 07:50:53 98.2 [degF] Legac y [facility] Health blood pressure, 2018-09-26 07:50:53 73 mm[Hg] Legac y [facility] diastolic Health blood pressure, 2018-09-26 07:50:53 96 mm[Hg] Legac y [facility] systolic Health weight E&M 2018-09-26 07:50:53 188.25 [lb_av] [facility] Health weight in kilograms 2018-09-26 07:50:53 85.57 kg [facility] E& Health height in 2018-09-26 07:50:53 157.48 [facility] E&M Health temperature site 2018-09-26 07:50:53 oral Lega [facility] Health pulse rate 2018-02-21 08:03:52 120 /min [facility] Health blood pressure, 2018-02-21 08:03:52 79 mm[Hg] Legac y [facility] diastolic Health blood pressure, 2018-02-21 08:03:52 120 mm[Hg] Legac [facility] systolic Health respiratory rate E&M 2018-02-21 08:03:52 20 /min [facility] Health oxygen saturation, 2018-02-21 08:03:52 99 /min [facility] oximetry Health temperature E&M 2018-02-21 08:03:52 97.7 [degF] Legac [facility] Health weight E&M 2018-02-21 08:03:52 177 [lb_av] [facility] C ommunity Health weight in kilograms 2018-02-21 08:03:52 80.45 kg [facility] E& Health height in 2018-02-21 08:03:52 157.48 cm [facility] om[facility] centimeters E&M Health temperature site 2018-02-21 08:03:52 tympanic Lega [facility] Health blood pressure, 2017-10-13 08:35:18 74 mm[Hg] Legac y [facility] diastolic Health blood pressure, 2017-10-13 08:35:18 105 mm[Hg] Legac [facility] systolic Health pulse rate 2017-10-13 08:35:18 104 /min [facility] Health respiratory rate E&M 2017-10-13 08:35:18 16 /min [facility] Health oxygen saturation, 2017-10-13 08:35:18 96 /min [facility] Health temperature E&M 2017-10-13 08:35:18 99 [degF] Legac y [facility] Health weight E&M 2017-10-13 08:35:18 175 [lb_av] [facility] C ommunity Health weight in kilograms 2017-10-13 08:35:18 79.55 kg [facility] E& Health height in 2017-10-13 08:35:18 157.48 cm [facility] ommun[facility] centimeters E&M Health temperature site 2017-10-13 08:35:18 tympanic Lega [facility] Health blood pressure, 2017-06-29 08:33:26 50 mm[Hg] Legac y [facility] diastolic Health blood pressure, 2017-06-29 08:33:26 86 mm[Hg] Legac y [facility] systolic Health pulse rate 2017-06-29 08:33:26 100 /min [facility] respiratory rate E&M 2017-06-29 08:33:26 24 /min [facility] Health oxygen saturation, 2017-06-29 08:33:26 97 /min [facility] oximetry Health temperature E&M 2017-06-29 08:33:26 98.2 [degF] [facility] weight E&M 2017-06-29 08:33:26 169 [lb_av] [facility] weight in kilograms 2017-06-29 08:33:26 76.82 kg [facility] E& Health height in 2017-06-29 08:33:26 [facility] temperature site 2017-06-29 08:33:26 tympanic Lega [facility] Health blood pressure, 2017-06-17 07:40:48 68 mm[Hg] Legac y [facility] diastolic Health blood pressure, 2017-06-17 07:40:48 97 mm[Hg] Legac [facility] systolic Health pulse rate 2017-06-17 07:40:48 106 /min [facility] oxygen saturation, 2017-06-17 07:40:48 98 /min [facility] oximetry Health temperature E&M 2017-06-17 07:40:48 97.5 [degF] Legac y [facility] Health weight E&M 2017-06-17 07:40:48 170.13 [lb_av] [facility] weight in kilograms 2017-06-17 07:40:48 77.33 kg [facility] E&M Health height in 2017-06-17 07:40:48 157.48 [facility] E&M Health temperature site 2017-06-17 07:40:48 tympanic Lega [facility] Health blood pressure, 2017-04-19 10:19:07 60 mm[Hg] Legac y [facility] diastolic Health blood pressure, 2017-04-19 10:19:07 108 mm[Hg] Legac y [facility] systolic Health pulse rate 2017-04-19 10:19:07 75 /min [facility] Health respiratory rate E&M 2017-04-19 10:19:07 24 /min [facility] Health oxygen saturation, 2017-04-19 10:19:07 96 /min [facility] oximetry Health temperature E&M 2017-04-19 10:19:07 99.1 [degF] Legac [facility] Health weight E&M 2017-04-19 10:19:07 172 [lb_av] [facility] Health weight in kilograms 2017-04-19 10:19:07 78.18 kg [facility] Health height in 2017-04-19 10:19:07 [facility] temperature site 2017-04-19 10:19:07 tympanic Lega [facility] Health blood pressure, 2016-11-02 08:40:55 79 mm[Hg] Legac y [facility] diastolic Health blood pressure, 2016-11-02 08:40:55 113 mm[Hg] Legac [facility] systolic Health pulse rate 2016-11-02 08:40:55 101 /min [facility] oxygen saturation, 2016-11-02 08:40:55 97 /min [facility] oximetry Health temperature E&M 2016-11-02 08:40:55 97.6 [degF] Legac [facility] Health weight E&M 2016-11-02 08:40:55 180.60 [lb_av] [facility] Health weight in kilograms 2016-11-02 08:40:55 82.09 kg [facility] E& Health height in 2016-11-02 08:40:55 157.48 cm [facility] temperature site 2016-11-02 08:40:55 tympanic [facility]ega [facility] Health oxygen saturation, 2016-07-07 08:32:30 82 /min [facility] Health blood pressure, 2016-07-07 08:32:30 83 mm[Hg] Legac [facility] diastolic Health blood pressure, 2016-07-07 08:32:30 119 mm[Hg] Legac [facility] systolic Health pulse rate 2016-07-07 08:32:30 82 /min [facility] Health temperature E&M 2016-07-07 08:32:30 96.4 [degF] Legac y [facility] Health weight E&M 2016-07-07 08:32:30 170.40 [lb_av] [facility] weight in kilograms 2016-07-07 08:32:30 77.45 kg [facility] E& Health height in 2016-07-07 08:32:30 157.48 cm [facility] centimeters E&M Health temperature site 2016-07-07 08:32:30 tympanic Lega [facility] Health blood pressure, 2016-03-24 15:04:18 74 mm[Hg] Legac y [facility] diastolic Health blood pressure, 2016-03-24 15:04:18 107 mm[Hg] Legac y [facility] systolic Health pulse rate 2016-03-24 15:04:18 92 /min [facility] oxygen saturation, 2016-03-24 15:04:18 94 /min [facility] oximetry Health temperature E&M 2016-03-24 15:04:18 97.2 [degF] Legac [facility] Health weight E&M 2016-03-24 15:04:18 147.70 [lb_av] [facility] Health weight in kilograms 2016-03-24 15:04:18 67.14 kg [facility] E Health height in 2016-03-24 15:04:18 157.48 [facility] E& Health temperature site 2016-03-24 15:04:18 tympanic Lega [facility] Health pulse rate 2016-03-08 09:29:07 91 /min [facility] blood pressure, 2016-03-08 09:29:07 76 mm[Hg] Legac [facility] diastolic Health blood pressure, 2016-03-08 09:29:07 112 mm[Hg] Legac [facility] systolic Health oxygen saturation, 2016-03-08 09:29:07 94 /min [facility] oximetry Health temperature E&M 2016-03-08 09:29:07 96.9 [degF] Legac y [facility] Health weight E&M 2016-03-08 09:29:07 137 [lb_av] [facility] weight in kilograms 2016-03-08 09:29:07 62.27 kg [facility] E Health height in 2016-03-08 09:29:07 157.48 cm [facility] om[facility] centimeters E&[facility] temperature site 2016-03-08 09:29:07 tympanic [facility] oxygen saturation, 2015-07-01 10:02:02 94 /min [facility] oximetry Health blood pressure, 2015-07-01 10:02:02 64 mm[Hg] Legac y [facility] diastolic Health blood pressure, 2015-07-01 10:02:02 89 mm[Hg] Legac y [facility] systolic Health pulse rate 2015-07-01 10:02:02 103 /min [facility] Health temperature E&M 2015-07-01 10:02:02 98.5 [degF] [facility] E&M 2015-07-01 10:02:02 127.40 [lb_av] [facility] weight in kilograms 2015-07-01 10:02:02 57.91 kg L [facility] height in 2015-07-01 10:02:02 157.48 cm [facility] ommunity centimeters E&[facility] temperature site 2015-07-01 10:02:02 oral [facility] blood pressure, 2015-03-18 10:06:41 62 mm[Hg] Legac [facility] diastolic Health blood pressure, 2015-03-18 10:06:41 86 mm[Hg] Legac [facility] systolic Health temperature E&M 2015-03-18 10:06:41 98.8 [degF] Legac [facility] Health height in 2015-03-18 10:06:41 157.48 cm [facility] ommunity centimeters E&[facility] oxygen saturation, 2015-03-18 10:06:41 93 /min [facility] oximetry Health pulse rate 2015-03-18 10:06:41 111 /min [facility] weight E&M 2015-03-18 10:06:41 137 [lb_av] [facility] Health weight in kilograms 2015-03-18 10:06:41 62.27 kg [facility] E&[facility] temperature site 2015-03-18 10:06:41 temporal [facility] Procedures Procedure Date / Time Performing Clinician Source Performed Primary Care Medical 2016-03-08 10:18:09 Dilma Hunt [facility] Case Management [facility] Primary Care Service 2015-07-02 08:59:43 Zee Rodriguez [facility] Primary Care - 2015-03-21 13:05:22 Zee Rodriguez Co mmunity Assesment-Brief [facility] Primary Care Service 2015-03-21 13:05:22 Zee Rodriguez [facility] Venipuncture 2015-03-03 09:52:50 Elodia Cespedes [facility] Encounters Start End Encounter Admission Attending Care Care Encounter Source Date/Time Date/Time Type Type Clinicians Facility Department ID 2021-02-27 2021-02-27 Outpatient KNOW, KENJI GIRONA [id number] [facility] 23:38:00 23:38:00 DOES_NOT [id number] [facility] 2020-12-02 2020-12-02 Office Husam Vital [place] [id number] [facility] 00:00:00 00:00:00 Visit NanNke[place] [id number] [facility] 2020-05-28 2020-05-28 Office Husam Vital [facility] [id number] [facility] 00:00:00 00:00:00 Visit NanNkechi [id number] [facility] 2020-02-07 2020-02-07 Office Husam Vital [place] [id number] [facility] 00:00:00 00:00:00 Visit Tai Britt [id number] [facility] 2019-10-04 2019-10-04 Office Husam Vital [facility] [id number] [facility] 00:00:00 00:00:00 Visit Nkechi [place] [id number] [facility] Tai Britt [facility] 2019-06-07 2019-06-07 Office Husam Vital [facility] [id number] [facility] 00:00:00 00:00:00 [place] [id number] [facility] 2019-02-22 2019-02-22 [facility] [id number] [address] 14:00:00 14:00:00 [facility] 2019-02-08 2019-02-08 Office Husam Vital [facility] 3507 [id number] [facility] 00:00:00 00:00:00 Visit Valentine Lucas 9031 4 [facility] 2018-09-26 2018-09-26 Office [facility] 350 [id number] [facility] 00:00:00 00:00:00 Visit Sisi Obrien [address] [facility] 2018-02-21 2018-02-21 Office NemHusam morales [facility] 350 [id number] [facility] 00:00:00 00:00:00 Visit [place] [address] [facility] Ema Pillai [facility] 2017-10-13 2017-10-13 Office Zahraa Husam [facility] 3507 72-201 [facility] 00:00:00 00:00:00 Visit [place] [address] [facility] 2017-06-29 2017-06-29 Office Nemandrew Husam [facility] 3507 72-201 [facility] 00:00:00 00:00:00 Visit Nke[place] [address] [facility] 2017-06-17 2017-06-17 Office Nemandrew Husam [facility] 3507 72-201 [facility] 00:00:00 00:00:00 Visit Iesha Lucas [address] [facility] 2017-04-19 2017-04-19 Office Nemdavie Husam [facility] 3507 72-201 [facility] 00:00:00 00:00:00 Visit Nke[place] [address] [facility] 2016-11-02 2016-11-02 Office NemandrewHusam [facility] 350 [id number] [facility] 00:00:00 00:00:00 Visit Nke[place] [address] [facility] 2016-07-07 2016-07-07 Office NemandrewHusam [facility] 3507 72-201 [facility] 00:00:00 00:00:00 Visit [place] [address] [facility] Molly Velazco [facility] 2016-03-24 2016-03-24 Office Husam Vital [facility] 3507 72-201 [facility] 00:00:00 00:00:00 Visit Nke[place] [address] [facility] 2016-03-08 2016-03-08 Office Remy Perdomo [facility] [address]115 2-201 [facility] 00:00:00 00:00:00 Visit Jo Valle [address] [facility] 2015-07-01 2015-07-01 Office Husam Vital [facility] 3507 72-201 [facility] 00:00:00 00:00:00 Visit N[place] [address] [facility] 2015-03-18 2015-03-18 Office Husam Vital [facility] 3507 72-201 [facility] 00:00:00 00:00:00 Visit Lexy Ward [address] [facility] Results Test Description Test Time Test Comments Results Result Comments Source AMMONIA 2021-02-28 00:14:00 Test Item Value Reference Range Interpretation Comme nts AMMONIA (test code = AMM) 24 umol/L 11-32 N rapid plasma reagin antibody, [id number] 10:28:00 Test Item Value Reference Range Interpretation Comments rapid plasma reagin antibody, Non Reactive Non Reactive serum (test code = 5291-0) [facility] [id number] 10:28:00 Test Item Value Reference Range Interpretation Comments LDL cholesterol, serum (test code = 115 mg/dL 0-99 H 2088-11) [facility] Centervery low density aegytrairugq6589-64-99 10:28:00 Test Item Value Reference Range Interpretation Comments very low density lipoproteins (test 58 mg/dL 5-40 H code = 2091-7) [facility] CenterHDL [facility], [id number] 10:28:00 Test Item Value Reference Range Interpretation Comments HDL cholesterol, serum (test code = 32 mg/dL >39 L 2084-9) [facility], serum, [id number] 10:28:00 Test Item Value Reference Range Interpretation Comments triglyceride, serum, fasting (test 331 mg/dL 0-149 H code = 2571-8) [facility] Centercholesterol, [id number] 10:28:00 Test Item Value Reference Range Interpretation Comments cholesterol, serum (test code = 205 mg/dL 100-199 H 2093-3) [facility] Centeralanine aminotransferase (SGPT), [id number] 10:28:00 Test Item Value Reference Range Interpretation Comments alanine aminotransferase (SGPT), serum 15 1/L 0-32 (test code = 1742-6) [facility] Centeraspartate aminotransferase (SGOT), [id number] 10:28:00 Test Item Value Reference Range Interpretation Comments aspartate aminotransferase (SGOT), 14 1/L 0-40 serum (test code = 1920-8) [facility] Centeralkaline phosphatase, [id number] 10:28:00 Test Item Value Reference Range Interpretation Comments alkaline phosphatase, serum (test code 93 1/L 39-117 = 1783-0) [facility] Centerbilirubin, serum, [id number] 10:28:00 Test Item Value Reference Range Interpretation Comments bilirubin, serum, total (test code <0.2 mg/dL 0.0-1.2 = 1975-2) [facility] Centeralbumin/globulin ratio, [id number] 10:28:00 Test Item Value Reference Range Interpretation Comments albumin/globulin ratio, 1.4 (unknown unit) 1.2-2.2 serum (test code = 1759-0) [facility] Healthglobulin, [id number] 10:28:00 Test Item Value Reference Range Interpretation Comments globulin, serum (test code 2.8 (unknown unit) 1.5-4.5 = 2336-6) [facility] Healthalbumin, [id number] 10:28:00 Test Item Value Reference Range Interpretation Comments albumin, serum (test code = 1751-7) 4.0 g/dL 3.8-4.9 [facility] Centerprotein, total, [id number] 10:28:00 Test Item Value Reference Range Interpretation Comments protein, total, serum (test code = 6.8 g/dL 6.0-8.5 2885-2) [facility] Centercalcium, [id number] 10:28:00 Test Item Value Reference Range Interpretation Comments calcium, serum (test code = 1999-8) 9.2 mg/dL 8.7-10.3 [facility] Centercarbon dioxide, venous [id number] 10:28:00 Test Item Value Reference Range Interpretation Comments carbon dioxide, venous blood (test 27 mmol/L code = 2026-1) [facility] Centerchloride, [id number] 10:28:00 Test Item Value Reference Range Interpretation Comments chloride, serum (test code = 97 mmol/L 96-106 5-0) [facility] Healthpotassium, [id number] 10:28:00 Test Item Value Reference Range Interpretation Comments potassium, serum (test code = 4.1 mmol/L 3.5-5.2 2823-3) [facility] Centersodium, [id number] 10:28:00 Test Item Value Reference Range Interpretation Comments sodium, serum (test code = 2951-2) 139 mmol/L 134-144 [facility] Centerurea nitrogen/creatinine ratio, [id number] 10:28:00 Test Item Value Reference Range Interpretation Comments urea nitrogen/creatinine 15 (unknown unit) 11-24 ratio, serum (test code = 3097-3) [facility] HealtheGFR if Duaehmnt8565-87-64 10:28:00 Test Item Value Reference Range Interpretation Comments eGFR if 102 mL/min/{1.73 m2} >59 (test code = 01049-5) [facility] CenterEstimated Glomerular Filtration Rate (calc)2020-11-18 10:28:00 Test Item Value Reference Range Interpretation Comments Estimated Glomerular 88 mL/min/{1.73 m2} >59 Filtration Rate (calc) (test code = 24514-6) [facility] Centercreatinine, [id number] 10:28:00 Test Item Value Reference Range Interpretation Comments creatinine, serum (test code = 0.74 mg/dL 0.57-1.00 2160-0) [facility] Centerurea nitrogen, [id number] 10:28:00 Test Item Value Reference Range Interpretation Comments urea nitrogen, blood (test code = 11 mg/dL 8 3094-0) [facility] Centerblood glucose, [id number] 10:28:00 Test Item Value Reference Range Interpretation Comments blood glucose, random (test code = 178 mg/dL 65-99 H 2339-0) [facility] Centerimmature granulocytes, percentage of total cells, blood 2020-11-18 10:28:00 Test Item Value Reference Range Interpretation Comments immature granulocytes, percentage of 1 % total cells, blood (test code = 90379-6) [facility] Healthbasophil count, cdfswgjj8516-44-85 10:28:00 Test Item Value Reference Range Interpretation Comments basophil count, absolute (test 0.0 x10E3/uL 0.0-0.2 code = 93339-6) [facility] HealthEosinophil Absolute [id number] 10:28:00 Test Item Value Reference Range Interpretation Comments Eosinophil Absolute Count (test 0.1 X10E3/UL 0.0-0.4 code = 36234-8) [facility] Centermonocyte count, blood, qmilbezyi3822-16-83 10:28:00 Test Item Value Reference Range Interpretation Comments monocyte count, blood, automated 0.5 X10E3/UL 0.1-0.9 (test code = 742-7) [facility] Centerlymphocyte count, blood, azinuszdw9886-99-74 10:28:00 Test Item Value Reference Range Interpretation Comments lymphocyte count, blood, 1.3 X10E3/UL 0.7-3.1 automated (test code = 731-0) [facility] CenterAbsolute Pezzircqmvq5855-78-10 10:28:00 Test Item Value Reference Range Interpretation Comments Absolute Neutrophils (test code 5.6 X10E3/UL 1.4-7.0 = 28847-3) [facility] Centerbasophils as percent of blood qidgbnjynp2366-55-85 10:28:00 Test Item Value Reference Range Interpretation Comments basophils as percent of blood 0 % leukocytes (test code = 707-0) [facility] Healtheosinophils as percent of blood zgqaqrkyct9357-70-58 10:28:00 Test Item Value Reference Range Interpretation Comments eosinophils as percent of blood 1 % leukocytes (test code = 713-8) [facility] Healthmonocytes as percent of blood yitipjujji2599-67-34 10:28:00 Test Item Value Reference Range Interpretation Comments monocytes as percent of blood 6 % leukocytes (test code = 5905-5) [facility] Centerlymphocytes as percent of blood qnegiqvcai8230-39-22 10:28:00 Test Item Value Reference Range Interpretation Comments lymphocytes as percent of blood 17 % leukocytes (test code = 736-9) [facility] Centerneutrophils as percent of blood fjgagpepfc8935-91-01 10:28:00 Test Item Value Reference Range Interpretation Comments neutrophils as percent of blood 75 % leukocytes (test code = 770-8) [facility] Centerplatelet hadow1522-85-56 10:28:00 Test Item Value Reference Range Interpretation Comments platelet count (test code = 194 X10E3/UL 150-450 777-3) [facility] Centerred blood cell distribution [id number] 10:28:00 Test Item Value Reference Range Interpretation Comments red blood cell distribution width 11.9 % 11.7-15.4 (test code = 788-0) [facility] hemoglobin concentration, [id number] 10:28:00 Test Item Value Reference Range Interpretation Comments mean corpuscular hemoglobin 35.3 G/DL 31.5-35.7 concentration, RBC (test code = 786-4) [facility] corpus[facility] hemoglobin, [id number] 10:28:00 Test Item Value Reference Range Interpretation Comments mean corpuscular hemoglobin, RBC 34.8 pg 26.6-33.0 H (test code = 785-6) [facility] corpus[facility] volume, [id number] 10:28:00 Test Item Value Reference Range Interpretation Comments mean corpuscular volume, RBC (test code 99 fL 79-97 H = 787-2) [facility] Centerhematocrit, [id number] 10:28:00 Test Item Value Reference Range Interpretation Comments hematocrit, blood (test code = 4544-3) 40.5 % 34.0-46.6 [facility] Centerhemoglobin, [id number] 10:28:00 Test Item Value Reference Range Interpretation Comments hemoglobin, blood (test code = 14.3 g/dL 11.1-15.9 718-7) [facility] Centererythrocyte (RBC) [id number] 10:28:00 Test Item Value Reference Range Interpretation Comments erythrocyte (RBC) count (test 4.11 X10E6/UL 3.77-5.28 code = 789-8) [facility] Centerleukocyte count, [id number] 10:28:00 Test Item Value Reference Range Interpretation Comments leukocyte count, blood (test 7.5 X10E3/UL 3.4-10.8 code = 6690-2) [facility] CenterT-helper cells (CD4) as percent of blood lymphocytes 2020-11-18 10:28:00 Test Item Value Reference Range Interpretation Comments T-helper cells (CD4) as percent of 26.9 % 30.8-58.5 L blood lymphocytes (test code = 8123-2) [facility] CenterT-helper cells (CD4) [id number] 10:28:00 Test Item Value Reference Range Interpretation Comments T-helper cells (CD4) count (test code 350 /UL 359-1519 L = 02353-5) [facility] CenterHIV-1RNA, serum, by PCR, rgzyyrxsqekv0312-16-25 10:28:00 Test Item Value Reference Range Interpretation Comments HIV-1RNA, serum, by PCR, <20 copies/mL quantitative (test code = 98085) [facility] CenterCD4/CD8 [id number] 10:28:00 Test Item Value Reference Range Interpretation Comments CD4/CD8 ratio (test code 1.14 (unknown unit) 0.92-3.72 = 68798) [facility] CenterT-suppressor cells (CD8) as percent of blood lymphocytes 2020-11-18 10:28:00 Test Item Value Reference Range Interpretation Comments T-suppressor cells (CD8) as percent of 23.7 % 12.0-35.5 blood lymphocytes (test code = 3517) [facility] Centerabsolute [id number] 10:28:00 Test Item Value Reference Range Interpretation Comments absolute CD8 (test code = 308 (unknown unit) 732-651 28739) [facility] Centerrapid plasma reagin antibody, [id number] 10:39:00 Test Item Value Reference Range Interpretation Comments rapid plasma reagin antibody, Non Reactive Non Reactive serum (test code = 5291-0) [facility] Centerhemoglobin A1C, blood, as % of total whwlyhoswn7607-57-75 10:39:00 Test Item Value Reference Range Interpretation Comments hemoglobin A1C, blood, as % of total 6.3 % 4.8-5.6 H hemoglobin (test code = 4548-4) [facility] CenterLDL cholesterol, cczlz6540-46-21 10:39:00 Test Item Value Reference Range Interpretation Comments LDL cholesterol, serum (test code = 87 mg/dL 0-99 2088-1) [facility] Centervery low density dooxpmggdugb7743-92-64 10:39:00 Test Item Value Reference Range Interpretation Comments very low density lipoproteins (test 44 mg/dL 5-40 H code = 2091-7) [facility] CenterHDL cholesterol, [id number] 10:39:00 Test Item Value Reference Range Interpretation Comments HDL cholesterol, serum (test code = 32 mg/dL >39 L 2084-9) [facility] Centertriglyceride, serum, [id number] 10:39:00 Test Item Value Reference Range Interpretation Comments triglyceride, serum, fasting (test 220 mg/dL 0-149 H code = 2571-8) [facility] Centercholesterol, [id number] 10:39:00 Test Item Value Reference Range Interpretation Comments cholesterol, serum (test code = 163 mg/dL 133-923 2287-3) [facility] Centeralanine aminotransferase (SGPT), noliq5211-39-68 10:39:00 Test Item Value Reference Range Interpretation Comments alanine aminotransferase (SGPT), serum 15 1/L 0-32 (test code = 1742-6) [facility] Centeraspartate aminotransferase (SGOT), [id number] 10:39:00 Test Item Value Reference Range Interpretation Comments aspartate aminotransferase (SGOT), 17 1/L 0-40 serum (test code = 1920-8) [facility] Centeralkaline phosphatase, [id number] 10:39:00 Test Item Value Reference Range Interpretation Comments alkaline phosphatase, serum (test code 93 1/L 39-117 = 1783-0) [facility] Centerbilirubin, serum, [id number] 10:39:00 Test Item Value Reference Range Interpretation Comments bilirubin, serum, total (test code <0.2 mg/dL 0.0-1.2 = 1974-2) [facility]album[facility]/globulin ratio, mlhag7551-95-33 10:39:00 Test Item Value Reference Range Interpretation Comments albumin/globulin ratio, 1.7 (unknown unit) 1.2-2.2 serum (test code = 1759-0) [facility] Healthglobulin, azlrw2516-28-64 10:39:00 Test Item Value Reference Range Interpretation Comments globulin, serum (test code 2.4 (unknown unit) 1.5-4.5 = 2336-6) [facility] Healthalbumin, yzufh1342-57-03 10:39:00 Test Item Value Reference Range Interpretation Comments albumin, serum (test code = 1751-7) 4.0 g/dL 3.8-4.9 [facility] Healthprotein, total, [id number] 10:39:00 Test Item Value Reference Range Interpretation Comments protein, total, serum (test code = 6.4 g/dL 6.0-8.5 2885-2) [facility] Healthcalcium, [id number] 10:39:00 Test Item Value Reference Range Interpretation Comments calcium, serum (test code = 1999-8) 9.1 mg/dL 8.7-10.3 [facility] Centercarbon dioxide, venous [id number] 10:39:00 Test Item Value Reference Range Interpretation Comments carbon dioxide, venous blood (test 27 mmol/L - code = 2026-1) [facility] Healthchloride, [id number] 10:39:00 Test Item Value Reference Range Interpretation Comments chloride, serum (test code = 100 mmol/L 96-106 5-0) [facility] Healthpotassium, cggwt6325-17-99 10:39:00 Test Item Value Reference Range Interpretation Comments potassium, serum (test code = 4.6 mmol/L 3.5-5.2 2823-3) [facility] Healthsodium, [id number] 10:39:00 Test Item Value Reference Range Interpretation Comments sodium, serum (test code = 2951-2) 139 mmol/L 134-144 [facility] Centerurea nitrogen/creatinine ratio, xdgip5111-98-97 10:39:00 Test Item Value Reference Range Interpretation Comments urea nitrogen/creatinine 13 (unknown unit) 12-28 ratio, serum (test code = 3097-3) [facility] CentereGFR if Jcckjksl3321-07-19 10:39:00 Test Item Value Reference Range Interpretation Comments eGFR if 110 mL/min/{1.73 m2} >59 (test code = 65041-3) [facility] CenterEstimated Glomerular Filtration Rate (calc)2020-05-28 10:39:00 Test Item Value Reference Range Interpretation Comments Estimated Glomerular 96 mL/min/{1.73 m2} >59 Filtration Rate (calc) (test code = 16999-7) [facility] Centercreatinine, [id number] 10:39:00 Test Item Value Reference Range Interpretation Comments creatinine, serum (test code = 0.67 mg/dL 0.57-1.00 2160-0) [facility] Centerurea nitrogen, yszdn0038-04-94 10:39:00 Test Item Value Reference Range Interpretation Comments urea nitrogen, blood (test code = 9 mg/dL 8-27 3094-0) [facility] Centerblood glucose, foiozg5542-94-25 10:39:00 Test Item Value Reference Range Interpretation Comments blood glucose, random (test code = 106 mg/dL 65-99 H 2339-0) [facility] Centerimmature granulocytes, percentage of total cells, blood 2020-05-28 10:39:00 Test Item Value Reference Range Interpretation Comments immature granulocytes, percentage of 0 % total cells, blood (test code = 73271-2) [facility] Centerbasophil count, arcsexjs9889-68-54 10:39:00 Test Item Value Reference Range Interpretation Comments basophil count, absolute (test 0.0 x10E3/uL 0.0-0.2 code = 69735-8) [facility] CenterEosinophil Absolute [id number] 10:39:00 Test Item Value Reference Range Interpretation Comments Eosinophil Absolute Count (test 0.1 X10E3/UL 0.0-0.4 code = 52577-9) [facility] Centermonocyte count, blood, qngxnsdjz8669-08-88 10:39:00 Test Item Value Reference Range Interpretation Comments monocyte count, blood, automated 0.4 X10E3/UL 0.1-0.9 (test code = 742-7) [facility] Centerlymphocyte count, blood, ptwoyoxyi0122-38-33 10:39:00 Test Item Value Reference Range Interpretation Comments lymphocyte count, blood, 1.5 X10E3/UL 0.7-3.1 automated (test code = 731-0) [facility] CenterAbsolute Tprmyuwtlcm9259-84-62 10:39:00 Test Item Value Reference Range Interpretation Comments Absolute Neutrophils (test code 4.8 X10E3/UL 1.4-7.0 = 89476-7) [facility] Centerbasophils as percent of blood nwttafrxbb2296-75-23 10:39:00 Test Item Value Reference Range Interpretation Comments basophils as percent of blood 0 % leukocytes (test code = 707-0) [facility] Centereosinophils as percent of blood xaexhttkrz5034-21-60 10:39:00 Test Item Value Reference Range Interpretation Comments eosinophils as percent of blood 1 % leukocytes (test code = 713-8) [facility] Centermonocytes as percent of blood asygrgqpwo1245-95-05 10:39:00 Test Item Value Reference Range Interpretation Comments monocytes as percent of blood 6 % leukocytes (test code = 5905-5) [facility] Centerlymphocytes as percent of blood hsvdnopzax3818-58-50 10:39:00 Test Item Value Reference Range Interpretation Comments lymphocytes as percent of blood 23 % leukocytes (test code = 736-9) [facility] Centerneutrophils as percent of blood rwxjymuiqm3044-91-94 10:39:00 Test Item Value Reference Range Interpretation Comments neutrophils as percent of blood 70 % leukocytes (test code = 770-8) [facility] Centerplatelet ayzkb1655-88-82 10:39:00 Test Item Value Reference Range Interpretation Comments platelet count (test code = 203 X10E3/UL 150-450 777-3) [facility] Centerred blood cell distribution yjnpq9051-37-75 10:39:00 Test Item Value Reference Range Interpretation Comments red blood cell distribution width 12.4 % 11.7-15.4 (test code = 788-0) [facility] corpuscular hemoglobin concentration, [id number] 10:39:00 Test Item Value Reference Range Interpretation Comments mean corpuscular hemoglobin 36.0 G/DL 31.5-35.7 H concentration, RBC (test code = 786-4) [facility] corpuscular hemoglobin, [id number] 10:39:00 Test Item Value Reference Range Interpretation Comments mean corpuscular hemoglobin, RBC 34.9 pg 26.6-33.0 H (test code = 785-6) [facility] Centermean corpuscular volume, [id number] 10:39:00 Test Item Value Reference Range Interpretation Comments mean corpuscular volume, RBC (test code 97 fL 79-97 = 787-2) [facility] Centerhematocrit, mazft9346-52-31 10:39:00 Test Item Value Reference Range Interpretation Comments hematocrit, blood (test code = 4544-3) 38.1 % 34.0-46.6 [facility] Centerhemoglobin, [id number] 10:39:00 Test Item Value Reference Range Interpretation Comments hemoglobin, blood (test code = 13.7 g/dL 11.1-15.9 718-7) [facility] Centererythrocyte (RBC) [id number] 10:39:00 Test Item Value Reference Range Interpretation Comments erythrocyte (RBC) count (test 3.93 X10E6/UL 3.77-5.28 code = 789-8) [facility] Centerleukocyte count, wmudq5475-95-30 10:39:00 Test Item Value Reference Range Interpretation Comments leukocyte count, blood (test 6.8 X10E3/UL 3.4-10.8 code = 6690-2) [facility] CenterT-helper cells (CD4) as percent of blood lymphocytes 2020-05-28 10:39:00 Test Item Value Reference Range Interpretation Comments T-helper cells (CD4) as percent of 32.4 % 30.8-58.5 blood lymphocytes (test code = 8123-2) [facility] CenterT-helper cells (CD4) wmibt5783-05-02 10:39:00 Test Item Value Reference Range Interpretation Comments T-helper cells (CD4) count (test code 486 /UL 359-1519 = 03325-7) [facility] CenterHIV-1RNA, serum, by PCR, fymrjjpzizny8437-23-35 10:39:00 Test Item Value Reference Range Interpretation Comments HIV-1RNA, serum, by PCR, quantitative 30 /mL (test code = 36503) [facility] CenterCD4/CD8 gcefp5873-64-97 10:39:00 Test Item Value Reference Range Interpretation Comments CD4/CD8 ratio (test code 1.20 (unknown unit) 0.92-3.72 = 70666) [facility] CenterT-suppressor cells (CD8) as percent of blood lymphocytes 2020-05-28 10:39:00 Test Item Value Reference Range Interpretation Comments T-suppressor cells (CD8) as percent of 27.1 % 12.0-35.5 blood lymphocytes (test code = 3517) [facility] Centerabsolute [id number] 10:39:00 Test Item Value Reference Range Interpretation Comments absolute CD8 (test code = 407 (unknown unit) 109-792 99074) [facility] Centerrapid plasma reagin antibody, qwimy9084-92-56 11:23:00 Test Item Value Reference Range Interpretation Comments rapid plasma reagin antibody, Non Reactive Non Reactive serum (test code = 5291-0) [facility] Centerhemoglobin A1C, blood, as % of total uiwznygzjk8853-08-97 11:23:00 Test Item Value Reference Range Interpretation Comments hemoglobin A1C, blood, as % of total 5.6 % 4.8-5.6 hemoglobin (test code = 4548-4) [facility] CenterLDL cholesterol, [id number] 11:23:00 Test Item Value Reference Range Interpretation Comments LDL cholesterol, serum (test code = 94 mg/dL 0-99 2088-1) [facility] yckzpdobtpjh7756-61-13 11:23:00 Test Item Value Reference Range Interpretation Comments very low density lipoproteins (test 57 mg/dL 5-40 H code = 2090-7) [facility] CenterHDL cholesterol, [id number] 11:23:00 Test Item Value Reference Range Interpretation Comments HDL cholesterol, serum (test code = 36 mg/dL >39 L 2084-9) [facility]ert[facility], serum, [id number] 11:23:00 Test Item Value Reference Range Interpretation Comments triglyceride, serum, fasting (test 284 mg/dL 0-149 H code = 2571-8) [facility]cholesterol, [id number] 11:23:00 Test Item Value Reference Range Interpretation Comments cholesterol, serum (test code = 187 mg/dL 161-002 2371-3) [facility] Centeralanine aminotransferase (SGPT), [id number] 11:23:00 Test Item Value Reference Range Interpretation Comments alanine aminotransferase (SGPT), serum 7 1/L 0-32 (test code = 1742-6) [facility] Centeraspartate aminotransferase (SGOT), envsy6077-85-08 11:23:00 Test Item Value Reference Range Interpretation Comments aspartate aminotransferase (SGOT), 9 1/L 0-40 serum (test code = 1920-8) [facility] Centeralkaline phosphatase, [id number] 11:23:00 Test Item Value Reference Range Interpretation Comments alkaline phosphatase, serum (test code 93 1/L 39-117 = 1783-0) [facility]bilirubin, serum, [id number] 11:23:00 Test Item Value Reference Range Interpretation Comments bilirubin, serum, total (test code <0.2 mg/dL 0.0-1.2 = 1975-2) [facility] Healthalbumin/globulin ratio, ecsmn2948-55-04 11:23:00 Test Item Value Reference Range Interpretation Comments albumin/globulin ratio, 1.4 (unknown unit) 1.2-2.2 serum (test code = 1759-0) [facility] Healthglobulin, [id number] 11:23:00 Test Item Value Reference Range Interpretation Comments globulin, serum (test code 2.8 (unknown unit) 1.5-4.5 = 2336-6) [facility] Healthalbumin, [id number] 11:23:00 Test Item Value Reference Range Interpretation Comments albumin, serum (test code = 1751-7) 3.9 g/dL 3.8-4.9 [facility]protein, total, [id number] 11:23:00 Test Item Value Reference Range Interpretation Comments protein, total, serum (test code = 6.7 g/dL 6.0-8.5 2885-2) [facility] Centercalcium, [id number] 11:23:00 Test Item Value Reference Range Interpretation Comments calcium, serum (test code = 1999-8) 9.1 mg/dL 8.7-10.3 [facility] Centercarbon dioxide, venous spnfs2477-07-86 11:23:00 Test Item Value Reference Range Interpretation Comments carbon dioxide, venous blood (test 27 mmol/L 20-29 code = 2027-1) [facility] Healthchloride, [id number] 11:23:00 Test Item Value Reference Range Interpretation Comments chloride, serum (test code = 99 mmol/L 96-106 2075-0) [facility] Healthpotassium, [id number] 11:23:00 Test Item Value Reference Range Interpretation Comments potassium, serum (test code = 4.7 mmol/L 3.5-5.2 2823-3) [facility] Centersodium, [id number] 11:23:00 Test Item Value Reference Range Interpretation Comments sodium, serum (test code = 2951-2) 140 mmol/L 134-144 [facility] Centerurea nitrogen/creatinine ratio, [id number] 11:23:00 Test Item Value Reference Range Interpretation Comments urea nitrogen/creatinine 17 (unknown unit) 12-28 ratio, serum (test code = 3097-3) [facility] HealtheGFR if Hehoansf9541-65-18 11:23:00 Test Item Value Reference Range Interpretation Comments eGFR if 100 mL/min/{1.73 m2} >59 (test code = 06542-7) [facility] CenterEstimated Glomerular Filtration Rate (calc)2020-02-07 11:23:00 Test Item Value Reference Range Interpretation Comments Estimated Glomerular 87 mL/min/{1.73 m2} >59 Filtration Rate (calc) (test code = 65670-8) [facility] Centercreatinine, [id number] 11:23:00 Test Item Value Reference Range Interpretation Comments creatinine, serum (test code = 0.75 mg/dL 0.57-1.00 2160-0) [facility] Centerurea nitrogen, [id number] 11:23:00 Test Item Value Reference Range Interpretation Comments urea nitrogen, blood (test code = 13 mg/dL 8-27 3094-0) [facility] Centerblood glucose, [id number] 11:23:00 Test Item Value Reference Range Interpretation Comments blood glucose, random (test code = 74 mg/dL 65-99 2339-0) [facility] Centerimmature granulocytes, percentage of total cells, blood 2020-02-07 11:23:00 Test Item Value Reference Range Interpretation Comments immature granulocytes, percentage of 0 % total cells, blood (test code = 82712-7) [facility] Centerbasophil count, sblmxalh0704-99-76 11:23:00 Test Item Value Reference Range Interpretation Comments basophil count, absolute (test 0.0 x10E3/uL 0.0-0.2 code = 67005-6) [facility] HealthEosinophil Absolute Emoeh6586-04-94 11:23:00 Test Item Value Reference Range Interpretation Comments Eosinophil Absolute Count (test 0.1 X10E3/UL 0.0-0.4 code = 43131-8) [facility] Healthmonocyte count, blood, dndspmbwn4115-06-60 11:23:00 Test Item Value Reference Range Interpretation Comments monocyte count, blood, automated 0.4 X10E3/UL 0.1-0.9 (test code = 742-7) [facility] Centerlymphocyte count, blood, duhbkbbnq0760-74-72 11:23:00 Test Item Value Reference Range Interpretation Comments lymphocyte count, blood, 1.6 X10E3/UL 0.7-3.1 automated (test code = 731-0) [facility] CenterAbsolute Soqbsnwsaml6543-02-11 11:23:00 Test Item Value Reference Range Interpretation Comments Absolute Neutrophils (test code 5.0 X10E3/UL 1.4-7.0 = 69358-1) [facility] Centerbasophils as percent of blood pynomibvxa4631-10-78 11:23:00 Test Item Value Reference Range Interpretation Comments basophils as percent of blood 0 % leukocytes (test code = 707-0) [facility] Healtheosinophils as percent of blood cdehbmxdrh2590-97-87 11:23:00 Test Item Value Reference Range Interpretation Comments eosinophils as percent of blood 1 % leukocytes (test code = 713-8) [facility] Healthmonocytes as percent of blood vcbvijysod1565-58-29 11:23:00 Test Item Value Reference Range Interpretation Comments monocytes as percent of blood 6 % leukocytes (test code = 5905-5) [facility] Centerlymphocytes as percent of blood piqnbfhmcz0736-55-80 11:23:00 Test Item Value Reference Range Interpretation Comments lymphocytes as percent of blood 22 % leukocytes (test code = 736-9) [facility] Centerneutrophils as percent of blood icqzvgvjbp3553-29-24 11:23:00 Test Item Value Reference Range Interpretation Comments neutrophils as percent of blood 71 % leukocytes (test code = 770-8) [facility] Centerplatelet dwuex1596-76-13 11:23:00 Test Item Value Reference Range Interpretation Comments platelet count (test code = 214 X10E3/UL 150-450 777-3) [facility] Centerred blood cell distribution iljlw1354-53-83 11:23:00 Test Item Value Reference Range Interpretation Comments red blood cell distribution width 12.8 % 11.7-15.4 (test code = 788-0) [facility], [id number] 11:23:00 Test Item Value Reference Range Interpretation Comments mean corpuscular hemoglobin 33.4 G/DL 31.5-35.7 concentration, RBC (test code = 786-4) [facility] hemoglobin, [id number] 11:23:00 Test Item Value Reference Range Interpretation Comments mean corpuscular hemoglobin, RBC 33.8 pg 26.6-33.0 H (test code = 785-6) [facility] volume, [id number] 11:23:00 Test Item Value Reference Range Interpretation Comments mean corpuscular volume, RBC (test 101 fL 79-97 H code = 787-2) [facility] Centerhematocrit, [id number] 11:23:00 Test Item Value Reference Range Interpretation Comments hematocrit, blood (test code = 4544-3) 40.1 % 34.0-46.6 [facility] Centerhemoglobin, [id number] 11:23:00 Test Item Value Reference Range Interpretation Comments hemoglobin, blood (test code = 13.4 g/dL 11.1-15.9 718-7) [facility] Centererythrocyte (RBC) wread7276-02-11 11:23:00 Test Item Value Reference Range Interpretation Comments erythrocyte (RBC) count (test 3.97 X10E6/UL 3.77-5.28 code = 789-8) [facility] Centerleukocyte count, [id number] 11:23:00 Test Item Value Reference Range Interpretation Comments leukocyte count, blood (test 7.1 X10E3/UL 3.4-10.8 code = 6690-2) [facility] CenterT-helper cells (CD4) as percent of blood lymphocytes 2020-02-07 11:23:00 Test Item Value Reference Range Interpretation Comments T-helper cells (CD4) as percent of 28.4 % 30.8-58.5 L blood lymphocytes (test code = 8123-2) [facility] CenterT-helper cells (CD4) fcgwm9553-36-68 11:23:00 Test Item Value Reference Range Interpretation Comments T-helper cells (CD4) count (test code 454 /UL 359-1519 = 85393-5) [facility] CenterHIV-1RNA, serum, by PCR, imzogglxeocf3130-24-20 11:23:00 Test Item Value Reference Range Interpretation Comments HIV-1RNA, serum, by PCR, <20 copies/mL quantitative (test code = 89977) [facility] CenterCD4/CD8 qgkzi3757-70-85 11:23:00 Test Item Value Reference Range Interpretation Comments CD4/CD8 ratio (test code 1.01 (unknown unit) 0.92-3.72 = 05101) [facility] CenterT-suppressor cells (CD8) as percent of blood lymphocytes 2020-02-07 11:23:00 Test Item Value Reference Range Interpretation Comments T-suppressor cells (CD8) as percent of 28.0 % 12.0-35.5 blood lymphocytes (test code = 3517) [facility] Centerabsolute [id number] 11:23:00 Test Item Value Reference Range Interpretation Comments absolute CD8 (test code = 448 (unknown unit) 862-457 74797) [facility] CenterQuantiferon Gold TB blood test for tuberculosis screening 2019-10-04 09:29:00 Test Item Value Reference Range Interpretation Comments Quantiferon Gold TB blood test for Positive Negative A tuberculosis screening (test code = 91642-4) [facility] Centerhepatitis C antibody, [id number] 09:19:00 Test Item Value Reference Range Interpretation Comments hepatitis C antibody, serum (test code <0.1 0.0-0.9 = 5199-5) [facility] Centerrapid plasma reagin antibody, [id number] 09:19:00 Test Item Value Reference Range Interpretation Comments rapid plasma reagin antibody, Non Reactive Non Reactive serum (test code = 5291-0) [facility] CenterLDL cholesterol, [id number] 09:19:00 Test Item Value Reference Range Interpretation Comments LDL cholesterol, serum (test code = 82 mg/dL 0-99 9-1) [facility] Centervery low density jwnbezvcrahh9655-19-05 09:19:00 Test Item Value Reference Range Interpretation Comments very low density lipoproteins (test 32 mg/dL 5-40 code = 2091-7) [facility] CenterHDL cholesterol, [id number] 09:19:00 Test Item Value Reference Range Interpretation Comments HDL cholesterol, serum (test code = 42 mg/dL >39 5-9) [facility] Centertriglyceride, serum, vebafgq8306-61-07 09:19:00 Test Item Value Reference Range Interpretation Comments triglyceride, serum, fasting (test 161 mg/dL 0-149 H code = 2571-8) [facility] Centercholesterol, anexg2504-20-29 09:19:00 Test Item Value Reference Range Interpretation Comments cholesterol, serum (test code = 156 mg/dL 440-944 6165-3) [facility] Centeralanine aminotransferase (SGPT), knjog9371-94-48 09:19:00 Test Item Value Reference Range Interpretation Comments alanine aminotransferase (SGPT), serum 10 1/L 0-32 (test code = 1742-6) [facility] Centeraspartate aminotransferase (SGOT), qqhqs1975-30-74 09:19:00 Test Item Value Reference Range Interpretation Comments aspartate aminotransferase (SGOT), 9 1/L 0-40 serum (test code = 1920-8) [facility] Centeralkaline phosphatase, ejmzk5946-87-20 09:19:00 Test Item Value Reference Range Interpretation Comments alkaline phosphatase, serum (test code 99 1/L 39-117 = 1783-0) [facility] Centerbilirubin, serum, [id number] 09:19:00 Test Item Value Reference Range Interpretation Comments bilirubin, serum, total (test code 0.3 mg/dL 0.0-1.2 = 1975-2) [facility] Centeralbumin/globulin ratio, [id number] 09:19:00 Test Item Value Reference Range Interpretation Comments albumin/globulin ratio, 1.6 (unknown unit) 1.2-2.2 serum (test code = 1759-0) [facility] Healthglobulin, afgie7591-85-48 09:19:00 Test Item Value Reference Range Interpretation Comments globulin, serum (test code 2.4 (unknown unit) 1.5-4.5 = 2336-6) [facility] Healthalbumin, kzjmc6773-33-07 09:19:00 Test Item Value Reference Range Interpretation Comments albumin, serum (test code = 1751-7) 3.9 g/dL 3.5-5.5 [facility] Healthprotein, total, [id number] 09:19:00 Test Item Value Reference Range Interpretation Comments protein, total, serum (test code = 6.3 g/dL 6.0-8.5 2885-2) [facility] Healthcalcium, [id number] 09:19:00 Test Item Value Reference Range Interpretation Comments calcium, serum (test code = 2000-8) 9.2 mg/dL 8.7-10.2 [facility] Centercarbon dioxide, venous [id number] 09:19:00 Test Item Value Reference Range Interpretation Comments carbon dioxide, venous blood (test 27 mmol/L - code = 2026-1) [facility] Healthchloride, [id number] 09:19:00 Test Item Value Reference Range Interpretation Comments chloride, serum (test code = 102 mmol/L 96-106 2075-0) [facility] Healthpotassium, [id number] 09:19:00 Test Item Value Reference Range Interpretation Comments potassium, serum (test code = 4.5 mmol/L 3.5-5.2 2823-3) [facility] Healthsodium, [id number] 09:19:00 Test Item Value Reference Range Interpretation Comments sodium, serum (test code = 2951-2) 140 mmol/L 134-144 [facility] Healthurea nitrogen/creatinine ratio, [id number] 09:19:00 Test Item Value Reference Range Interpretation Comments urea nitrogen/creatinine 25 (unknown unit) 9-23 H ratio, serum (test code = 3097-3) [facility] HealtheGFR if Kusnmeen2166-91-20 09:19:00 Test Item Value Reference Range Interpretation Comments eGFR if 118 mL/min/{1.73 m2} >59 (test code = 83222-2) [facility] CenterEstimated Glomerular Filtration Rate (calc)2019-10-04 09:19:00 Test Item Value Reference Range Interpretation Comments Estimated Glomerular 102 mL/min/{1.73 m2} >59 Filtration Rate (calc) (test code = 76292-5) [facility] Centercreatinine, [id number] 09:19:00 Test Item Value Reference Range Interpretation Comments creatinine, serum (test code = 0.56 mg/dL 0.57-1.00 L 2160-0) [facility] Centerurea nitrogen, [id number] 09:19:00 Test Item Value Reference Range Interpretation Comments urea nitrogen, blood (test code = 14 mg/dL 6-24 3094-0) [facility] Centerblood glucose, [id number] 09:19:00 Test Item Value Reference Range Interpretation Comments blood glucose, random (test code = 121 mg/dL 65-99 H 2339-0) [facility] Centerimmature granulocytes, percentage of total cells, blood 2019-10-04 09:19:00 Test Item Value Reference Range Interpretation Comments immature granulocytes, percentage of 0 % total cells, blood (test code = 01011-0) [facility] Centerbasophil count, ybwmhkfu2732-70-64 09:19:00 Test Item Value Reference Range Interpretation Comments basophil count, absolute (test 0.0 x10E3/uL 0.0-0.2 code = 44523-2) [facility] CenterEosinophil Absolute [id number] 09:19:00 Test Item Value Reference Range Interpretation Comments Eosinophil Absolute Count (test 0.2 X10E3/UL 0.0-0.4 code = 27358-1) [facility] Centermonocyte count, blood, goejuphoy6308-04-95 09:19:00 Test Item Value Reference Range Interpretation Comments monocyte count, blood, automated 0.4 X10E3/UL 0.1-0.9 (test code = 742-7) [facility] Centerlymphocyte count, blood, fonjeslff0893-60-82 09:19:00 Test Item Value Reference Range Interpretation Comments lymphocyte count, blood, 1.7 X10E3/UL 0.7-3.1 automated (test code = 731-0) [facility] CenterAbsolute Wjmsedsgnxu3562-10-10 09:19:00 Test Item Value Reference Range Interpretation Comments Absolute Neutrophils (test code 3.5 X10E3/UL 1.4-7.0 = 45805-6) [facility] Healthbasophils as percent of blood ykhvgxazlv8951-90-58 09:19:00 Test Item Value Reference Range Interpretation Comments basophils as percent of blood 1 % leukocytes (test code = 707-0) [facility] Healtheosinophils as percent of blood svzahdzeej2150-90-54 09:19:00 Test Item Value Reference Range Interpretation Comments eosinophils as percent of blood 3 % leukocytes (test code = 713-8) [facility] Healthmonocytes as percent of blood lizqrinjkf0946-41-08 09:19:00 Test Item Value Reference Range Interpretation Comments monocytes as percent of blood 7 % leukocytes (test code = 5905-5) [facility] Centerlymphocytes as percent of blood jkmbgvypfx8273-76-48 09:19:00 Test Item Value Reference Range Interpretation Comments lymphocytes as percent of blood 29 % leukocytes (test code = 736-9) [facility] Centerneutrophils as percent of blood akfbeqssxj4392-57-59 09:19:00 Test Item Value Reference Range Interpretation Comments neutrophils as percent of blood 60 % leukocytes (test code = 770-8) [facility] Centerplatelet uyrbd7042-03-93 09:19:00 Test Item Value Reference Range Interpretation Comments platelet count (test code = 234 X10E3/UL 150-450 777-3) [facility] Centerred blood cell distribution yiyiz7597-58-28 09:19:00 Test Item Value Reference Range Interpretation Comments red blood cell distribution width 13.0 % 12.3-15.4 (test code = 788-0) [facility] corpuscular hemoglobin concentration, [id number] 09:19:00 Test Item Value Reference Range Interpretation Comments mean corpuscular hemoglobin 33.8 G/DL 31.5-35.7 concentration, RBC (test code = 786-4) [facility], [id number] 09:19:00 Test Item Value Reference Range Interpretation Comments mean corpuscular hemoglobin, RBC 34.9 pg 26.6-33.0 H (test code = 785-6) [facility] Centermean corpuscular volume, [id number] 09:19:00 Test Item Value Reference Range Interpretation Comments mean corpuscular volume, RBC (test 103 fL 79-97 H code = 787-2) [facility] Centerhematocrit, gipan5986-59-53 09:19:00 Test Item Value Reference Range Interpretation Comments hematocrit, blood (test code = 4544-3) 41.4 % 34.0-46.6 [facility] Centerhemoglobin, [id number] 09:19:00 Test Item Value Reference Range Interpretation Comments hemoglobin, blood (test code = 14.0 g/dL 11.1-15.9 718-7) [facility] Centererythrocyte (RBC) [id number] 09:19:00 Test Item Value Reference Range Interpretation Comments erythrocyte (RBC) count (test 4.01 X10E6/UL 3.77-5.28 code = 789-8) [facility] Centerleukocyte count, ptorw1056-13-87 09:19:00 Test Item Value Reference Range Interpretation Comments leukocyte count, blood (test 5.8 X10E3/UL 3.4-10.8 code = 6690-2) [facility] CenterT-helper cells (CD4) as percent of blood lymphocytes 2019-10-04 09:19:00 Test Item Value Reference Range Interpretation Comments T-helper cells (CD4) as percent of 24.4 % 30.8-58.5 L blood lymphocytes (test code = 8123-2) [facility] CenterT-helper cells (CD4) agiyu9492-84-96 09:19:00 Test Item Value Reference Range Interpretation Comments T-helper cells (CD4) count (test code 415 /UL 359-1519 = 79461-0) [facility] CenterHIV-1RNA, serum, by PCR, ljbrkvyrcrtf2273-38-95 09:19:00 Test Item Value Reference Range Interpretation Comments HIV-1RNA, serum, by PCR, quantitative 380 /mL (test code = 42958) [facility] CenterCD4/CD8 mssmn7178-90-23 09:19:00 Test Item Value Reference Range Interpretation Comments CD4/CD8 ratio (test code 0.91 (unknown unit) 0.92-3.72 L = 80776) [facility] CenterT-suppressor cells (CD8) as percent of blood lymphocytes 2019-10-04 09:19:00 Test Item Value Reference Range Interpretation Comments T-suppressor cells (CD8) as percent of 26.7 % 12.0-35.5 blood lymphocytes (test code = 3517) [facility] Centerabsolute [id number] 09:19:00 Test Item Value Reference Range Interpretation Comments absolute CD8 (test code = 454 (unknown unit) 109-277 08793) [facility] CenterLDL cholesterol, qkxfh6788-28-01 10:34:00 Test Item Value Reference Range Interpretation Comments LDL cholesterol, serum (test code = 58 mg/dL 0-99 2088-1) [facility] Centervery low density wssixudyffpv4018-85-09 10:34:00 Test Item Value Reference Range Interpretation Comments very low density lipoproteins (test 35 mg/dL 5-40 code = 1-7) [facility] CenterHDL cholesterol, isngc5600-78-60 10:34:00 Test Item Value Reference Range Interpretation Comments HDL cholesterol, serum (test code = 34 mg/dL >39 L 2084-) [facility] Centertriglyceride, serum, zmmyxkl6113-81-80 10:34:00 Test Item Value Reference Range Interpretation Comments triglyceride, serum, fasting (test 174 mg/dL 0-149 H code = 2571-8) [facility] Centercholesterol, wcjih1396-90-52 10:34:00 Test Item Value Reference Range Interpretation Comments cholesterol, serum (test code = 127 mg/dL 254-034 7219-3) [facility] Centerrapid plasma reagin antibody, cjgho6976-65-27 10:25:00 Test Item Value Reference Range Interpretation Comments rapid plasma reagin antibody, Non Reactive Non Reactive serum (test code = 5291-0) [facility] Centeralanine aminotransferase (SGPT), etsvh9710-01-17 10:25:00 Test Item Value Reference Range Interpretation Comments alanine aminotransferase (SGPT), serum 12 1/L 0-32 (test code = 1742-6) [facility] Centeraspartate aminotransferase (SGOT), wcjor1031-54-57 10:25:00 Test Item Value Reference Range Interpretation Comments aspartate aminotransferase (SGOT), 9 1/L 0-40 serum (test code = 1920-8) [facility] Centeralkaline phosphatase, qlkne0248-63-96 10:25:00 Test Item Value Reference Range Interpretation Comments alkaline phosphatase, serum (test 102 1/L 39-117 code = 1783-0) [facility] Centerbilirubin, serum, [id number] 10:25:00 Test Item Value Reference Range Interpretation Comments bilirubin, serum, total (test code 0.4 mg/dL 0.0-1.2 = 1975-2) [facility] Healthalbumin/globulin ratio, eumqx6796-57-28 10:25:00 Test Item Value Reference Range Interpretation Comments albumin/globulin ratio, 1.4 (unknown unit) 1.2-2.2 serum (test code = 1759-0) [facility] Healthglobulin, [id number] 10:25:00 Test Item Value Reference Range Interpretation Comments globulin, serum (test code 2.8 (unknown unit) 1.5-4.5 = 2336-6) [facility] Healthalbumin, ytxdg8619-14-94 10:25:00 Test Item Value Reference Range Interpretation Comments albumin, serum (test code = 1751-7) 4.0 g/dL 3.5-5.5 [facility] Centerprotein, total, nlqjg8461-44-41 10:25:00 Test Item Value Reference Range Interpretation Comments protein, total, serum (test code = 6.8 g/dL 6.0-8.5 2885-2) [facility] Centercalcium, [id number] 10:25:00 Test Item Value Reference Range Interpretation Comments calcium, serum (test code = 1999-8) 9.3 mg/dL 8.7-10.2 [facility] Centercarbon dioxide, venous [id number] 10:25:00 Test Item Value Reference Range Interpretation Comments carbon dioxide, venous blood (test 29 mmol/L 20-29 code = 7-1) [facility]chlor[facility], [id number] 10:25:00 Test Item Value Reference Range Interpretation Comments chloride, serum (test code = 99 mmol/L 96-106 2074-0) [facility] Healthpotassium, smogu2839-74-30 10:25:00 Test Item Value Reference Range Interpretation Comments potassium, serum (test code = 4.4 mmol/L 3.5-5.2 2823-3) [facility] Centersodium, rmala2388-67-40 10:25:00 Test Item Value Reference Range Interpretation Comments sodium, serum (test code = 2951-2) 140 mmol/L 134-144 [facility] Centerurea nitrogen/creatinine ratio, [id number] 10:25:00 Test Item Value Reference Range Interpretation Comments urea nitrogen/creatinine 20 (unknown unit) 9-23 ratio, serum (test code = 3097-3) [facility] HealtheGFR if Bkvvrkdx6196-66-94 10:25:00 Test Item Value Reference Range Interpretation Comments eGFR if 115 mL/min/{1.73 m2} >59 (test code = 88352-5) [facility] CenterEstimated Glomerular Filtration Rate (calc)2019-06-07 10:25:00 Test Item Value Reference Range Interpretation Comments Estimated Glomerular 100 mL/min/{1.73 m2} >59 Filtration Rate (calc) (test code = 51173-6) [facility]ercreatinine, [id number] 10:25:00 Test Item Value Reference Range Interpretation Comments creatinine, serum (test code = 0.61 mg/dL 0.57-1.00 2160-0) [facility] Centerurea nitrogen, [id number] 10:25:00 Test Item Value Reference Range Interpretation Comments urea nitrogen, blood (test code = 12 mg/dL 6-24 3094-0) [facility] Centerblood glucose, jsqopg6318-07-22 10:25:00 Test Item Value Reference Range Interpretation Comments blood glucose, random (test code = 131 mg/dL 65-99 H 2339-0) [facility] Centerimmature granulocytes, percentage of total cells, blood 2019-06-07 10:25:00 Test Item Value Reference Range Interpretation Comments immature granulocytes, percentage of 0 % total cells, blood (test code = 43547-0) [facility] Centerbasophil count, [id number] 10:25:00 Test Item Value Reference Range Interpretation Comments basophil count, absolute (test 0.0 x10E3/uL 0.0-0.2 code = 65621-1) [facility] HealthEosinophil Absolute Axotv5298-05-11 10:25:00 Test Item Value Reference Range Interpretation Comments Eosinophil Absolute Count (test 0.1 X10E3/UL 0.0-0.4 code = 59487-7) [facility] Healthmonocyte count, blood, dudnlwhdw9256-46-02 10:25:00 Test Item Value Reference Range Interpretation Comments monocyte count, blood, automated 0.3 X10E3/UL 0.1-0.9 (test code = 742-7) [facility] Healthlymphocyte count, blood, nopfyumom2536-10-52 10:25:00 Test Item Value Reference Range Interpretation Comments lymphocyte count, blood, 1.4 X10E3/UL 0.7-3.1 automated (test code = 731-0) [facility] HealthAbsolute Ewtnvdzzgcw5582-86-45 10:25:00 Test Item Value Reference Range Interpretation Comments Absolute Neutrophils (test code 5.3 X10E3/UL 1.4-7.0 = 34579-2) [facility] Healthbasophils as percent of blood ildcsktnkk5207-44-19 10:25:00 Test Item Value Reference Range Interpretation Comments basophils as percent of blood 0 % leukocytes (test code = 707-0) [facility] Healtheosinophils as percent of blood ypobymxmqe2354-74-59 10:25:00 Test Item Value Reference Range Interpretation Comments eosinophils as percent of blood 1 % leukocytes (test code = 713-8) [facility] Healthmonocytes as percent of blood usxamwwnqg8999-04-52 10:25:00 Test Item Value Reference Range Interpretation Comments monocytes as percent of blood 5 % leukocytes (test code = 5905-5) [facility] Healthlymphocytes as percent of blood ejxockcxfp1820-82-84 10:25:00 Test Item Value Reference Range Interpretation Comments lymphocytes as percent of blood 19 % leukocytes (test code = 736-9) [facility] Healthneutrophils as percent of blood uhayzssmzv9979-32-15 10:25:00 Test Item Value Reference Range Interpretation Comments neutrophils as percent of blood 75 % leukocytes (test code = 770-8) [facility] Healthplatelet wwtss5092-79-35 10:25:00 Test Item Value Reference Range Interpretation Comments platelet count (test code = 227 X10E3/UL 150-450 777-3) [facility] Centerred blood cell distribution ndvku8604-61-17 10:25:00 Test Item Value Reference Range Interpretation Comments red blood cell distribution width 13.4 % 12.3-15.4 (test code = 788-0) [facility] corpuscular hemoglobin concentration, [id number] 10:25:00 Test Item Value Reference Range Interpretation Comments mean corpuscular hemoglobin 34.2 G/DL 31.5-35.7 concentration, RBC (test code = 786-4) [facility], HFW6628-12-19 10:25:00 Test Item Value Reference Range Interpretation Comments mean corpuscular hemoglobin, RBC 34.8 pg 26.6-33.0 H (test code = 785-6) [facility] corpuscular volume, [id number] 10:25:00 Test Item Value Reference Range Interpretation Comments mean corpuscular volume, RBC (test 102 fL 79-97 H code = 787-2) [facility] Centerhematocrit, wuxcj4092-01-54 10:25:00 Test Item Value Reference Range Interpretation Comments hematocrit, blood (test code = 4544-3) 42.7 % 34.0-46.6 [facility] Centerhemoglobin, bdjzw2479-81-45 10:25:00 Test Item Value Reference Range Interpretation Comments hemoglobin, blood (test code = 14.6 g/dL 11.1-15.9 718-7) [facility] Centererythrocyte (RBC) nuqrr4835-31-01 10:25:00 Test Item Value Reference Range Interpretation Comments erythrocyte (RBC) count (test 4.20 X10E6/UL 3.77-5.28 code = 789-8) [facility] Centerleukocyte count, sdrid7195-82-99 10:25:00 Test Item Value Reference Range Interpretation Comments leukocyte count, blood (test 7.1 X10E3/UL 3.4-10.8 code = 6690-2) [facility] CenterT-helper cells (CD4) as percent of blood lymphocytes 2019-06-07 10:25:00 Test Item Value Reference Range Interpretation Comments T-helper cells (CD4) as percent of 27.5 % 30.8-58.5 L blood lymphocytes (test code = 8123-2) [facility] CenterT-helper cells (CD4) scswg0991-94-30 10:25:00 Test Item Value Reference Range Interpretation Comments T-helper cells (CD4) count (test code 385 /UL 359-1519 = 29589-3) [facility] CenterHIV-1RNA, serum, by PCR, fvwloddqmdqf4698-94-27 10:25:00 Test Item Value Reference Range Interpretation Comments HIV-1RNA, serum, by PCR, <20 copies/mL quantitative (test code = 73469) [facility] CenterCD4/CD8 smlne7085-22-54 10:25:00 Test Item Value Reference Range Interpretation Comments CD4/CD8 ratio (test code 1.00 (unknown unit) 0.92-3.72 = 49478) [facility] CenterT-suppressor cells (CD8) as percent of blood lymphocytes 2019-06-07 10:25:00 Test Item Value Reference Range Interpretation Comments T-suppressor cells (CD8) as percent of 27.5 % 12.0-35.5 blood lymphocytes (test code = 3517) [facility] Centerabsolute [id number] 10:25:00 Test Item Value Reference Range Interpretation Comments absolute CD8 (test code = 385 (unknown unit) 352-747 94237) [facility] Centerrapid plasma reagin antibody, rrtgr8289-66-91 08:54:00 Test Item Value Reference Range Interpretation Comments rapid plasma reagin antibody, Non Reactive Non Reactive serum (test code = 5291-0) [facility] Centeralanine aminotransferase (SGPT), rfnoo8439-02-67 08:54:00 Test Item Value Reference Range Interpretation Comments alanine aminotransferase (SGPT), serum 12 1/L 0-32 (test code = 1742-6) [facility] Centeraspartate aminotransferase (SGOT), zenbz8718-10-70 08:54:00 Test Item Value Reference Range Interpretation Comments aspartate aminotransferase (SGOT), 12 1/L 0-40 serum (test code = 1920-8) [facility] Centeralkaline phosphatase, cwewi1393-51-98 08:54:00 Test Item Value Reference Range Interpretation Comments alkaline phosphatase, serum (test 109 1/L 39-117 code = 1783-0) [facility] Healthbilirubin, serum, [id number] 08:54:00 Test Item Value Reference Range Interpretation Comments bilirubin, serum, total (test code 0.2 mg/dL 0.0-1.2 = 1975-2) [facility] Healthalbumin/globulin ratio, pqjeg2018-23-21 08:54:00 Test Item Value Reference Range Interpretation Comments albumin/globulin ratio, 1.5 (unknown unit) 1.2-2.2 serum (test code = 1759-0) [facility] Healthglobulin, qjmxh8677-43-31 08:54:00 Test Item Value Reference Range Interpretation Comments globulin, serum (test code 2.6 (unknown unit) 1.5-4.5 = 2336-6) [facility] Healthalbumin, piokp3122-70-15 08:54:00 Test Item Value Reference Range Interpretation Comments albumin, serum (test code = 1751-7) 4.0 g/dL 3.5-5.5 [facility] Healthprotein, total, vlsuv4363-75-88 08:54:00 Test Item Value Reference Range Interpretation Comments protein, total, serum (test code = 6.6 g/dL 6.0-8.5 2885-2) [facility] Centercalcium, aqwno2743-45-44 08:54:00 Test Item Value Reference Range Interpretation Comments calcium, serum (test code = 1999-8) 9.3 mg/dL 8.7-10.2 [facility] Centercarbon dioxide, venous mshfy9132-16-10 08:54:00 Test Item Value Reference Range Interpretation Comments carbon dioxide, venous blood (test 26 mmol/L 20-29 code = 2026-1) [facility] Healthchloride, yiwyu4712-67-68 08:54:00 Test Item Value Reference Range Interpretation Comments chloride, serum (test code = 102 mmol/L 96-106 5-0) [facility] Centerpotassium, zfhxr1613-56-79 08:54:00 Test Item Value Reference Range Interpretation Comments potassium, serum (test code = 4.8 mmol/L 3.5-5.2 2823-3) [facility] Centersodium, skwas6561-67-08 08:54:00 Test Item Value Reference Range Interpretation Comments sodium, serum (test code = 2951-2) 143 mmol/L 134-144 [facility] Centerurea nitrogen/creatinine ratio, yibbu9865-77-77 08:54:00 Test Item Value Reference Range Interpretation Comments urea nitrogen/creatinine 11 (unknown unit) 9-23 ratio, serum (test code = 3097-3) [facility] HealtheGFR if Tgovkqjg8887-00-41 08:54:00 Test Item Value Reference Range Interpretation Comments eGFR if 113 mL/min/{1.73 m2} >59 (test code = 87088-2) [facility] CenterEstimated Glomerular Filtration Rate (calc)2019-02-08 08:54:00 Test Item Value Reference Range Interpretation Comments Estimated Glomerular 98 mL/min/{1.73 m2} >59 Filtration Rate (calc) (test code = 19164-6) [facility] Centercreatinine, pdkep8029-88-78 08:54:00 Test Item Value Reference Range Interpretation Comments creatinine, serum (test code = 0.64 mg/dL 0.57-1.00 2160-0) [facility] Centerurea nitrogen, [id number] 08:54:00 Test Item Value Reference Range Interpretation Comments urea nitrogen, blood (test code = 7 mg/dL 6-24 3094-0) [facility] Centerblood glucose, cqmnpt6533-64-82 08:54:00 Test Item Value Reference Range Interpretation Comments blood glucose, random (test code = 157 mg/dL 65-99 H 2339-0) [facility] Centerimmature granulocytes, percentage of total cells, blood 2019-02-08 08:54:00 Test Item Value Reference Range Interpretation Comments immature granulocytes, percentage of 0 % total cells, blood (test code = 48148-3) [facility] Centerbasophil count, qzqypzgw0447-28-29 08:54:00 Test Item Value Reference Range Interpretation Comments basophil count, absolute (test 0.0 x10E3/uL 0.0-0.2 code = 66091-7) [facility] CenterEosinophil Absolute Ulbgt9493-56-18 08:54:00 Test Item Value Reference Range Interpretation Comments Eosinophil Absolute Count (test 0.2 X10E3/UL 0.0-0.4 code = 91791-2) [facility] Centermonocyte count, blood, dhzegyaxr5378-97-34 08:54:00 Test Item Value Reference Range Interpretation Comments monocyte count, blood, automated 0.6 X10E3/UL 0.1-0.9 (test code = 742-7) [facility] Centerlymphocyte count, blood, kajpjrcun8443-79-53 08:54:00 Test Item Value Reference Range Interpretation Comments lymphocyte count, blood, 1.2 X10E3/UL 0.7-3.1 automated (test code = 731-0) [facility] CenterAbsolute Plamkdnvbmf8703-16-65 08:54:00 Test Item Value Reference Range Interpretation Comments Absolute Neutrophils (test code 6.1 X10E3/UL 1.4-7.0 = 80255-8) [facility] Centerbasophils as percent of blood jawaraezyo2975-34-65 08:54:00 Test Item Value Reference Range Interpretation Comments basophils as percent of blood 0 % leukocytes (test code = 707-0) [facility] Centereosinophils as percent of blood neivenwagg5177-47-26 08:54:00 Test Item Value Reference Range Interpretation Comments eosinophils as percent of blood 2 % leukocytes (test code = 713-8) [facility] Healthmonocytes as percent of blood jbkeixxafj0722-77-23 08:54:00 Test Item Value Reference Range Interpretation Comments monocytes as percent of blood 8 % leukocytes (test code = 5905-5) [facility] Centerlymphocytes as percent of blood zobdjwuhnq3409-96-23 08:54:00 Test Item Value Reference Range Interpretation Comments lymphocytes as percent of blood 14 % leukocytes (test code = 736-9) [facility] Centerneutrophils as percent of blood aawwqckbwe8662-24-08 08:54:00 Test Item Value Reference Range Interpretation Comments neutrophils as percent of blood 76 % leukocytes (test code = 770-8) [facility] Centerplatelet xwqbn7903-27-97 08:54:00 Test Item Value Reference Range Interpretation Comments platelet count (test code = 213 X10E3/UL 150-379 777-3) [facility] Centerred blood cell distribution clzqv2104-35-82 08:54:00 Test Item Value Reference Range Interpretation Comments red blood cell distribution width 13.6 % 12.3-15.4 (test code = 788-0) [facility] concentration, [id number] 08:54:00 Test Item Value Reference Range Interpretation Comments mean corpuscular hemoglobin 33.7 G/DL 31.5-35.7 concentration, RBC (test code = 786-4) [facility] hemoglobin, [id number] 08:54:00 Test Item Value Reference Range Interpretation Comments mean corpuscular hemoglobin, RBC 33.9 pg 26.6-33.0 H (test code = 785-6) [facility], [id number] 08:54:00 Test Item Value Reference Range Interpretation Comments mean corpuscular volume, RBC (test 101 fL 79-97 H code = 787-2) [facility] Centerhematocrit, kgeoq0899-93-71 08:54:00 Test Item Value Reference Range Interpretation Comments hematocrit, blood (test code = 4544-3) 43.3 % 34.0-46.6 [facility] Centerhemoglobin, umahf5528-65-15 08:54:00 Test Item Value Reference Range Interpretation Comments hemoglobin, blood (test code = 14.6 g/dL 11.1-15.9 718-7) [facility] Centererythrocyte (RBC) ghypa8711-75-74 08:54:00 Test Item Value Reference Range Interpretation Comments erythrocyte (RBC) count (test 4.31 X10E6/UL 3.77-5.28 code = 789-8) [facility] Centerleukocyte count, vyuif2438-63-21 08:54:00 Test Item Value Reference Range Interpretation Comments leukocyte count, blood (test 8.0 X10E3/UL 3.4-10.8 code = 6690-2) [facility] CenterT-helper cells (CD4) as percent of blood lymphocytes 2019-02-08 08:54:00 Test Item Value Reference Range Interpretation Comments T-helper cells (CD4) as percent of 30.9 % 30.8-58.5 blood lymphocytes (test code = 8123-2) [facility] CenterT-helper cells (CD4) mhsei9316-37-41 08:54:00 Test Item Value Reference Range Interpretation Comments T-helper cells (CD4) count (test code 371 /UL 359-1519 = 85809-0) [facility] CenterHIV-1RNA, serum, by PCR, gbkbbskkobmk8021-56-53 08:54:00 Test Item Value Reference Range Interpretation Comments HIV-1RNA, serum, by PCR, <20 copies/mL quantitative (test code = 44051) [facility] CenterCD4/CD8 vzvqf6621-98-85 08:54:00 Test Item Value Reference Range Interpretation Comments CD4/CD8 ratio (test code 1.08 (unknown unit) 0.92-3.72 = 13955) [facility] CenterT-suppressor cells (CD8) as percent of blood lymphocytes 2019-02-08 08:54:00 Test Item Value Reference Range Interpretation Comments T-suppressor cells (CD8) as percent of 28.6 % 12.0-35.5 blood lymphocytes (test code = 3517) [facility] Centerabsolute [id number] 08:54:00 Test Item Value Reference Range Interpretation Comments absolute CD8 (test code = 343 (unknown unit) [phone]) [facility] CenterLDL cholesterol, hwmby8393-58-57 08:51:00 Test Item Value Reference Range Interpretation Comments LDL cholesterol, serum (test code = 45 mg/dL 0-99 2088-1) [facility] Centervery low density klcjqhubefxq1529-02-88 08:51:00 Test Item Value Reference Range Interpretation Comments very low density lipoproteins (test 38 mg/dL 5-40 code = 1-7) [facility] CenterHDL cholesterol, dnlht3429-57-22 08:51:00 Test Item Value Reference Range Interpretation Comments HDL cholesterol, serum (test code = 36 mg/dL >39 L 5-9) [facility] Centertriglyceride, serum, coptrrz3975-99-38 08:51:00 Test Item Value Reference Range Interpretation Comments triglyceride, serum, fasting (test 188 mg/dL 0-149 H code = 2571-8) [facility] Centercholesterol, qmarj6564-95-78 08:51:00 Test Item Value Reference Range Interpretation Comments cholesterol, serum (test code = 119 mg/dL 158-040 3438-3) [facility] CenterBASIC METABOLIC [id number] 02:25:00 Test Item Value Reference Range Interpretation [...] code = 8.4 mg/dL 8.0-10.5 N [place]) [facility] PHONE# for [phone] or [phone] PHONE , FAX# cbc W/AUTO [id number] 02:13:00 Test Item Value Reference Range Interpretation [...] DIFF REQUIRED (test code NO = MDIFF) [facility] PHONE# for [phone] or [phone] PHONE [phone], FAX# Quantiferon Gold TB blood test for tuberculosis xtaqekatk1902-60-29 10:19:59 Test Item Value Reference Range Interpretation Comments Quantiferon Gold TB blood test for negative tuberculosis screening (test code = 59791-1) [facility] CenterQuantiferon Gold TB blood test for tuberculosis screening 2018-09-26 08:58:00 Test Item Value Reference Range Interpretation Comments Quantiferon Gold TB blood test for Negative Negative tuberculosis screening (test code = 22687-2) [facility] Centerhepatitis C antibody, hzwek0560-87-61 08:52:00 Test Item Value Reference Range Interpretation Comments hepatitis C antibody, 0.3 (unknown unit) 0.0-0.9 serum (test code = 5199-5) [facility] Centerrapid plasma reagin antibody, tgaek3683-47-16 08:52:00 Test Item Value Reference Range Interpretation Comments rapid plasma reagin antibody, Non Reactive Non Reactive serum (test code = 5291-0) [facility] CenterLDL cholesterol, qjsyg0801-74-06 08:52:00 Test Item Value Reference Range Interpretation Comments LDL cholesterol, serum (test code = 69 mg/dL 0-99 2088-1) [facility] Centervery low density zvwwgfwchujy6098-41-08 08:52:00 Test Item Value Reference Range Interpretation Comments very low density lipoproteins (test 29 mg/dL 5-40 code = 2091-7) [facility] CenterHDL cholesterol, szcvy5409-96-32 08:52:00 Test Item Value Reference Range Interpretation Comments HDL cholesterol, serum (test code = 41 mg/dL >39 2084-9) [facility] Centertriglyceride, serum, xwdwnzz0317-53-70 08:52:00 Test Item Value Reference Range Interpretation Comments triglyceride, serum, fasting (test 143 mg/dL 0-149 code = 2571-8) [facility] Centercholesterol, edkei1292-36-94 08:52:00 Test Item Value Reference Range Interpretation Comments cholesterol, serum (test code = 139 mg/dL 912-153 1831-3) [facility] Centeralanine aminotransferase (SGPT), cjkxh8750-09-47 08:52:00 Test Item Value Reference Range Interpretation Comments alanine aminotransferase (SGPT), serum 11 1/L 0-32 (test code = 1742-6) [facility] Centeraspartate aminotransferase (SGOT), ugzhz8612-92-31 08:52:00 Test Item Value Reference Range Interpretation Comments aspartate aminotransferase (SGOT), 12 1/L 0-40 serum (test code = 1920-8) [facility] Centeralkaline phosphatase, ebawb8805-57-96 08:52:00 Test Item Value Reference Range Interpretation Comments alkaline phosphatase, serum (test 141 1/L 39-117 H code = 1783-0) [facility] Centerbilirubin, serum, wedxd4087-22-02 08:52:00 Test Item Value Reference Range Interpretation Comments bilirubin, serum, total (test code 0.3 mg/dL 0.0-1.2 = 1975-2) [facility] Healthalbumin/globulin ratio, [id number] 08:52:00 Test Item Value Reference Range Interpretation Comments albumin/globulin ratio, 1.7 (unknown unit) 1.2-2.2 serum (test code = 1759-0) [facility] Healthglobulin, [id number] 08:52:00 Test Item Value Reference Range Interpretation Comments globulin, serum (test code 2.5 (unknown unit) 1.5-4.5 = 2336-6) [facility] Healthalbumin, zhxby2776-14-21 08:52:00 Test Item Value Reference Range Interpretation Comments albumin, serum (test code = 1751-7) 4.2 g/dL 3.5-5.5 [facility] Healthprotein, total, gqijm7262-52-19 08:52:00 Test Item Value Reference Range Interpretation Comments protein, total, serum (test code = 6.7 g/dL 6.0-8.5 2885-2) [facility] Healthcalcium, cnkui0412-61-04 08:52:00 Test Item Value Reference Range Interpretation Comments calcium, serum (test code = 1999-8) 9.4 mg/dL 8.7-10.2 [facility] Centercarbon dioxide, venous pjgox9405-13-28 08:52:00 Test Item Value Reference Range Interpretation Comments carbon dioxide, venous blood (test 26 mmol/L 20-29 code = 2026-1) [facility] Healthchloride, wxgnq7526-46-27 08:52:00 Test Item Value Reference Range Interpretation Comments chloride, serum (test code = 98 mmol/L 96-106 5-0) [facility] Healthpotassium, zijlc5371-36-24 08:52:00 Test Item Value Reference Range Interpretation Comments potassium, serum (test code = 4.4 mmol/L 3.5-5.2 2823-3) [facility] Centersodium, [id number] 08:52:00 Test Item Value Reference Range Interpretation Comments sodium, serum (test code = 2951-2) 140 mmol/L 134-144 [facility] Centerurea nitrogen/creatinine ratio, jzlvu3895-96-92 08:52:00 Test Item Value Reference Range Interpretation Comments urea nitrogen/creatinine 12 (unknown unit) 9-23 ratio, serum (test code = 3097-3) [facility] HealtheGFR if Eccfurgk1921-24-65 08:52:00 Test Item Value Reference Range Interpretation Comments eGFR if 98 mL/min/{1.73 m2} >59 (test code = 76762-9) [facility] CenterEstimated Glomerular Filtration Rate (calc)2018-09-26 08:52:00 Test Item Value Reference Range Interpretation Comments Estimated Glomerular 85 mL/min/{1.73 m2} >59 Filtration Rate (calc) (test code = 35520-7) [facility] Centercreatinine, [id number] 08:52:00 Test Item Value Reference Range Interpretation Comments creatinine, serum (test code = 0.77 mg/dL 0.57-1.00 2160-0) [facility] Centerurea nitrogen, qvzyf3826-74-81 08:52:00 Test Item Value Reference Range Interpretation Comments urea nitrogen, blood (test code = 9 mg/dL 6-24 3094-0) [facility] Centerblood glucose, cnqdwg6697-97-81 08:52:00 Test Item Value Reference Range Interpretation Comments blood glucose, random (test code = 129 mg/dL 65-99 H 2339-0) [facility] Centerimmature granulocytes, percentage of total cells, blood 2018-09-26 08:52:00 Test Item Value Reference Range Interpretation Comments immature granulocytes, percentage of 0 % total cells, blood (test code = 29150-7) [facility], kbihxrht4625-33-57 08:52:00 Test Item Value Reference Range Interpretation Comments basophil count, absolute (test 0.0 x10E3/uL 0.0-0.2 code = 88539-3) [facility] CenterEosinophil Absolute Shina7661-11-56 08:52:00 Test Item Value Reference Range Interpretation Comments Eosinophil Absolute Count (test 0.2 X10E3/UL 0.0-0.4 code = 96740-3) [facility] Centermonocyte count, blood, zjfhbgxgs6296-07-97 08:52:00 Test Item Value Reference Range Interpretation Comments monocyte count, blood, automated 0.6 X10E3/UL 0.1-0.9 (test code = 742-7) [facility] Centerlymph[facility] count, blood, ppxgvprrp3343-45-09 08:52:00 Test Item Value Reference Range Interpretation Comments lymphocyte count, blood, 1.7 X10E3/UL 0.7-3.1 automated (test code = 731-0) [facility] CenterAbsolute Iuaqtqiklqy5002-15-32 08:52:00 Test Item Value Reference Range Interpretation Comments Absolute Neutrophils (test code 4.3 X10E3/UL 1.4-7.0 = 72220-3) [facility] Centerbasophils as percent of blood uullspnult2743-61-15 08:52:00 Test Item Value Reference Range Interpretation Comments basophils as percent of blood 0 % leukocytes (test code = 707-0) [facility]ereosinophils as percent of blood vxcmpuhnqf9065-83-04 08:52:00 Test Item Value Reference Range Interpretation Comments eosinophils as percent of blood 3 % leukocytes (test code = 713-8) [facility] Centermonocytes as percent of blood kbcvbarskp4010-42-51 08:52:00 Test Item Value Reference Range Interpretation Comments monocytes as percent of blood 8 % leukocytes (test code = 5905-5) [facility] Centerlymphocytes as percent of blood jmvqocfkjg8915-84-04 08:52:00 Test Item Value Reference Range Interpretation Comments lymphocytes as percent of blood 25 % leukocytes (test code = 736-9) [facility] Centerneutrophils as percent of blood gteguhieim3717-72-05 08:52:00 Test Item Value Reference Range Interpretation Comments neutrophils as percent of blood 64 % leukocytes (test code = 770-8) [facility] Centerplatelet kveow7010-90-46 08:52:00 Test Item Value Reference Range Interpretation Comments platelet count (test code = 173 X10E3/UL 150-379 777-3) [facility] Centerred blood cell distribution vuthk8824-96-15 08:52:00 Test Item Value Reference Range Interpretation Comments red blood cell distribution width 12.4 % 12.3-15.4 (test code = 788-0) [facility] Centermean corpuscular hemoglobin concentration, [id number] 08:52:00 Test Item Value Reference Range Interpretation Comments mean corpuscular hemoglobin 34.0 G/DL 31.5-35.7 concentration, RBC (test code = 786-4) [facility] Centermean corpuscular hemoglobin, [id number] 08:52:00 Test Item Value Reference Range Interpretation Comments mean corpuscular hemoglobin, RBC 34.7 pg 26.6-33.0 H (test code = 785-6) [facility] Centermean corpuscular volume, [id number] 08:52:00 Test Item Value Reference Range Interpretation Comments mean corpuscular volume, RBC (test 102 fL 79-97 H code = 787-2) [facility] Centerhematocrit, wypxe3861-57-06 08:52:00 Test Item Value Reference Range Interpretation Comments hematocrit, blood (test code = 4544-3) 40.9 % 34.0-46.6 [facility] Centerhemoglobin, rxjya7474-28-93 08:52:00 Test Item Value Reference Range Interpretation Comments hemoglobin, blood (test code = 13.9 g/dL 11.1-15.9 718-7) [facility] Centererythrocyte (RBC) ydrhf4574-50-92 08:52:00 Test Item Value Reference Range Interpretation Comments erythrocyte (RBC) count (test 4.01 X10E6/UL 3.77-5.28 code = 789-8) [facility] Centerleukocyte count, jdxyf0415-03-51 08:52:00 Test Item Value Reference Range Interpretation Comments leukocyte count, blood (test 6.8 X10E3/UL 3.4-10.8 code = 6690-2) [facility] CenterT-helper cells (CD4) as percent of blood lymphocytes 2018-09-26 08:52:00 Test Item Value Reference Range Interpretation Comments T-helper cells (CD4) as percent of 25.9 % 30.8-58.5 L blood lymphocytes (test code = 8123-2) [facility] CenterT-helper cells (CD4) vnodb5093-70-40 08:52:00 Test Item Value Reference Range Interpretation Comments T-helper cells (CD4) count (test code 440 /UL 359-1519 = 08249-0) [facility] CenterHIV-1RNA, serum, by PCR, gtupqzgveoob4748-41-86 08:52:00 Test Item Value Reference Range Interpretation Comments HIV-1RNA, serum, by PCR, <20 copies/mL quantitative (test code = 67297) [facility] CenterCD4/CD8 [id number] 08:52:00 Test Item Value Reference Range Interpretation Comments CD4/CD8 ratio (test code 0.98 (unknown unit) 0.92-3.72 = 71668) [facility] CenterT-suppressor cells (CD8) as percent of blood lymphocytes 2018-09-26 08:52:00 Test Item Value Reference Range Interpretation Comments T-suppressor cells (CD8) as percent of 26.4 % 12.0-35.5 blood lymphocytes (test code = 3517) [facility] Centerabsolute [id number] 08:52:00 Test Item Value Reference Range Interpretation Comments absolute CD8 (test code = 449 (unknown unit) 413-984 87221) [facility] Centerrapid plasma reagin antibody, qdzcm4222-78-35 09:22:00 Test Item Value Reference Range Interpretation Comments rapid plasma reagin antibody, Non Reactive Non Reactive serum (test code = 5291-0) [facility] CenterLDL cholesterol, [id number] 09:22:00 Test Item Value Reference Range Interpretation Comments LDL cholesterol, serum (test code = 63 mg/dL 0-99 2088-1) [facility] Centervery low density vsczlalddkhu3214-06-41 09:22:00 Test Item Value Reference Range Interpretation Comments very low density lipoproteins (test 53 mg/dL 5-40 H code = 2090-7) [facility] CenterHDL cholesterol, xagjh8214-19-26 09:22:00 Test Item Value Reference Range Interpretation Comments HDL cholesterol, serum (test code = 38 mg/dL >39 L 2084-9) [facility] Centertriglyceride, serum, larhlfs2677-04-93 09:22:00 Test Item Value Reference Range Interpretation Comments triglyceride, serum, fasting (test 265 mg/dL 0-149 H code = 2571-8) [facility] Centercholesterol, uvjcu4501-38-37 09:22:00 Test Item Value Reference Range Interpretation Comments cholesterol, serum (test code = 154 mg/dL 652-438 3365-3) [facility] Centeralanine aminotransferase (SGPT), fgkhz9099-06-67 09:22:00 Test Item Value Reference Range Interpretation Comments alanine aminotransferase (SGPT), serum 6 1/L 0-32 (test code = 1742-6) [facility] Centeraspartate aminotransferase (SGOT), jgtts1157-29-05 09:22:00 Test Item Value Reference Range Interpretation Comments aspartate aminotransferase (SGOT), 8 1/L 0-40 serum (test code = 1920-8) [facility] Centeralkaline phosphatase, [id number] 09:22:00 Test Item Value Reference Range Interpretation Comments alkaline phosphatase, serum (test code 93 1/L 39-117 = 1783-0) [facility] Centerbilirubin, serum, [id number] 09:22:00 Test Item Value Reference Range Interpretation Comments bilirubin, serum, total (test code 0.2 mg/dL 0.0-1.2 = 1975-2) [facility] Healthalbumin/globulin ratio, [id number] 09:22:00 Test Item Value Reference Range Interpretation Comments albumin/globulin ratio, 1.3 (unknown unit) 1.2-2.2 serum (test code = 1759-0) [facility] Healthglobulin, sjnqz5068-31-94 09:22:00 Test Item Value Reference Range Interpretation Comments globulin, serum (test code 3.1 (unknown unit) 1.5-4.5 = 2336-6) [facility] Healthalbumin, hlmfc0699-60-61 09:22:00 Test Item Value Reference Range Interpretation Comments albumin, serum (test code = 1751-7) 4.0 g/dL 3.5-5.5 [facility] Healthprotein, total, [id number] 09:22:00 Test Item Value Reference Range Interpretation Comments protein, total, serum (test code = 7.1 g/dL 6.0-8.5 2885-2) [facility] Centercalcium, fpdtt9851-88-01 09:22:00 Test Item Value Reference Range Interpretation Comments calcium, serum (test code = 1999-8) 9.6 mg/dL 8.7-10.2 [facility] Centercarbon dioxide, venous vjliy4926-67-66 09:22:00 Test Item Value Reference Range Interpretation Comments carbon dioxide, venous blood (test 28 mmol/L 18-29 code = 2027-1) [facility] Healthchloride, xqoio3660-33-97 09:22:00 Test Item Value Reference Range Interpretation Comments chloride, serum (test code = 98 mmol/L 96-106 2075-0) [facility] Healthpotassium, ylgah3112-84-79 09:22:00 Test Item Value Reference Range Interpretation Comments potassium, serum (test code = 4.5 mmol/L 3.5-5.2 2823-3) [facility] Healthsodium, epelo3638-56-83 09:22:00 Test Item Value Reference Range Interpretation Comments sodium, serum (test code = 2951-2) 140 mmol/L 134-144 [facility] Centerurea nitrogen/creatinine ratio, rpjkw7149-33-35 09:22:00 Test Item Value Reference Range Interpretation Comments urea nitrogen/creatinine 12 (unknown unit) 9-23 ratio, serum (test code = 3097-3) [facility] HealtheGFR if Ogpfnafn3034-54-32 09:22:00 Test Item Value Reference Range Interpretation Comments eGFR if 111 mL/min/{1.73 m2} >59 (test code = 92111-3) [facility] CenterEstimated Glomerular Filtration Rate (calc)2018-02-07 09:22:00 Test Item Value Reference Range Interpretation Comments Estimated Glomerular 96 mL/min/{1.73 m2} >59 Filtration Rate (calc) (test code = 47568-7) [facility] Centercreatinine, qxzse1589-44-97 09:22:00 Test Item Value Reference Range Interpretation Comments creatinine, serum (test code = 0.69 mg/dL 0.57-1.00 2160-0) [facility] Centerurea nitrogen, kqcfm3079-75-32 09:22:00 Test Item Value Reference Range Interpretation Comments urea nitrogen, blood (test code = 8 mg/dL 6-24 3094-0) [facility] Centerblood glucose, fpgiuk7008-65-47 09:22:00 Test Item Value Reference Range Interpretation Comments blood glucose, random (test code = 154 mg/dL 65-99 H 2339-0) [facility] Centerimmature granulocytes, percentage of total cells, blood 2018-02-07 09:22:00 Test Item Value Reference Range Interpretation Comments immature granulocytes, percentage of 0 % total cells, blood (test code = 72951-4) [facility] Centerbasophil count, rgsqxumo4469-69-52 09:22:00 Test Item Value Reference Range Interpretation Comments basophil count, absolute (test 0.0 x10E3/uL 0.0-0.2 code = 93628-2) [facility] HealthEosinophil Absolute [id number] 09:22:00 Test Item Value Reference Range Interpretation Comments Eosinophil Absolute Count (test 0.1 X10E3/UL 0.0-0.4 code = 28981-3) [facility] Healthmonocyte count, blood, fuhgnvaja5281-63-26 09:22:00 Test Item Value Reference Range Interpretation Comments monocyte count, blood, automated 0.4 X10E3/UL 0.1-0.9 (test code = 742-7) [facility] Centerlymphocyte count, blood, qgsqgciji3751-06-20 09:22:00 Test Item Value Reference Range Interpretation Comments lymphocyte count, blood, 1.4 X10E3/UL 0.7-3.1 automated (test code = 731-0) [facility] CenterAbsolute Adiulafzjuj7093-65-02 09:22:00 Test Item Value Reference Range Interpretation Comments Absolute Neutrophils (test code 3.3 X10E3/UL 1.4-7.0 = 92208-8) [facility] Centerbasophils as percent of blood ieffalstwl1592-73-59 09:22:00 Test Item Value Reference Range Interpretation Comments basophils as percent of blood 0 % leukocytes (test code = 707-0) [facility] Healtheosinophils as percent of blood wvxbiyeeyu7848-48-90 09:22:00 Test Item Value Reference Range Interpretation Comments eosinophils as percent of blood 2 % leukocytes (test code = 713-8) [facility] Healthmonocytes as percent of blood ufaticxjds1870-15-99 09:22:00 Test Item Value Reference Range Interpretation Comments monocytes as percent of blood 8 % leukocytes (test code = 5905-5) [facility] Centerlymphocytes as percent of blood oecrqvdtyf9067-41-43 09:22:00 Test Item Value Reference Range Interpretation Comments lymphocytes as percent of blood 26 % leukocytes (test code = 736-9) [facility] Healthneutrophils as percent of blood vgtnzefoac4133-58-01 09:22:00 Test Item Value Reference Range Interpretation Comments neutrophils as percent of blood 64 % leukocytes (test code = 770-8) [facility] Centerplatelet zfbco4103-19-94 09:22:00 Test Item Value Reference Range Interpretation Comments platelet count (test code = 194 X10E3/UL 150-379 777-3) [facility] Centerred blood cell distribution wncds7423-94-44 09:22:00 Test Item Value Reference Range Interpretation Comments red blood cell distribution width 14.1 % 12.3-15.4 (test code = 788-0) [facility] corpuscular hemoglobin concentration, [id number] 09:22:00 Test Item Value Reference Range Interpretation Comments mean corpuscular hemoglobin 33.9 G/DL 31.5-35.7 concentration, RBC (test code = 786-4) [facility], [id number] 09:22:00 Test Item Value Reference Range Interpretation Comments mean corpuscular hemoglobin, RBC 34.2 pg 26.6-33.0 H (test code = 785-6) [facility], [id number] 09:22:00 Test Item Value Reference Range Interpretation Comments mean corpuscular volume, RBC (test 101 fL 79-97 H code = 787-2) [facility] Centerhematocrit, agujj5919-80-20 09:22:00 Test Item Value Reference Range Interpretation Comments hematocrit, blood (test code = 4544-3) 41.3 % 34.0-46.6 [facility] Centerhemoglobin, tiqyt5024-10-04 09:22:00 Test Item Value Reference Range Interpretation Comments hemoglobin, blood (test code = 14.0 g/dL 11.1-15.9 718-7) [facility] Centererythrocyte (RBC) xykyy4655-02-37 09:22:00 Test Item Value Reference Range Interpretation Comments erythrocyte (RBC) count (test 4.09 X10E6/UL 3.77-5.28 code = 789-8) [facility] Centerleukocyte count, pwfek1731-42-97 09:22:00 Test Item Value Reference Range Interpretation Comments leukocyte count, blood (test 5.1 X10E3/UL 3.4-10.8 code = 6690-2) [facility] CenterT-helper cells (CD4) as percent of blood lymphocytes 2018-02-07 09:22:00 Test Item Value Reference Range Interpretation Comments T-helper cells (CD4) as percent of 25.0 % 30.8-58.5 L blood lymphocytes (test code = 8123-2) [facility] CenterT-helper cells (CD4) mnxio9923-55-82 09:22:00 Test Item Value Reference Range Interpretation Comments T-helper cells (CD4) count (test code 350 /UL 359-1519 L = 69521-4) [facility] CenterHIV-1RNA, serum, by PCR, lwweuvvhmavp2445-40-08 09:22:00 Test Item Value Reference Range Interpretation Comments HIV-1RNA, serum, by PCR, <20 copies/mL quantitative (test code = 40598) [facility] CenterCD4/CD8 bpxfx9789-63-56 09:22:00 Test Item Value Reference Range Interpretation Comments CD4/CD8 ratio (test code 0.85 (unknown unit) 0.92-3.72 L = 41918) [facility] CenterT-suppressor cells (CD8) as percent of blood lymphocytes 2018-02-07 09:22:00 Test Item Value Reference Range Interpretation Comments T-suppressor cells (CD8) as percent of 29.5 % 12.0-35.5 blood lymphocytes (test code = 3517) [facility] Centerabsolute [id number] 09:22:00 Test Item Value Reference Range Interpretation Comments absolute CD8 (test code = 413 (unknown unit) 654-411 21917) [facility] Centerrapid plasma reagin antibody, xhrcj8005-91-28 10:27:00 Test Item Value Reference Range Interpretation Comments rapid plasma reagin antibody, Non Reactive Non Reactive serum (test code = 5291-0) [facility] CenterLDL cholesterol, nkclp1814-13-21 10:27:00 Test Item Value Reference Range Interpretation Comments LDL cholesterol, serum (test code = 63 mg/dL 0-99 9-1) [facility] low density jmgzkxnswrmi7852-20-12 10:27:00 Test Item Value Reference Range Interpretation Comments very low density lipoproteins (test 32 mg/dL 5-40 code = 2091-7) [facility] CenterHDL cholesterol, kuvvw2404-11-82 10:27:00 Test Item Value Reference Range Interpretation Comments HDL cholesterol, serum (test code = 47 mg/dL >39 2084-9) [facility] Centertriglyceride, serum, giemupt2587-43-51 10:27:00 Test Item Value Reference Range Interpretation Comments triglyceride, serum, fasting (test 162 mg/dL 0-149 H code = 2571-8) [facility] Centercholesterol, kepvw9055-40-00 10:27:00 Test Item Value Reference Range Interpretation Comments cholesterol, serum (test code = 142 mg/dL 470-111 3290-3) [facility] Centeralanine aminotransferase (SGPT), hapsz3811-36-35 10:27:00 Test Item Value Reference Range Interpretation Comments alanine aminotransferase (SGPT), serum 9 1/L 0-32 (test code = 1742-6) [facility] Centeraspartate aminotransferase (SGOT), nrung4916-02-85 10:27:00 Test Item Value Reference Range Interpretation Comments aspartate aminotransferase (SGOT), 9 1/L 0-40 serum (test code = 1920-8) [facility] Centeralkaline phosphatase, xldaw0232-43-16 10:27:00 Test Item Value Reference Range Interpretation Comments alkaline phosphatase, serum (test 100 1/L 39-117 code = 1783-0) [facility] Centerbilirubin, serum, evtqm6248-19-92 10:27:00 Test Item Value Reference Range Interpretation Comments bilirubin, serum, total (test code 0.3 mg/dL 0.0-1.2 = 1975-2) [facility] Centeralbumin/globulin ratio, ydpmx2054-52-12 10:27:00 Test Item Value Reference Range Interpretation Comments albumin/globulin ratio, 1.4 (unknown unit) 1.2-2.2 serum (test code = 1759-0) [facility] Healthglobulin, whrml8919-11-76 10:27:00 Test Item Value Reference Range Interpretation Comments globulin, serum (test code 2.9 (unknown unit) 1.5-4.5 = 2336-6) [facility] Centeralbumin, oyevb5849-06-18 10:27:00 Test Item Value Reference Range Interpretation Comments albumin, serum (test code = 1751-7) 4.2 g/dL 3.5-5.5 [facility] Healthprotein, total, sssqo5557-63-80 10:27:00 Test Item Value Reference Range Interpretation Comments protein, total, serum (test code = 7.1 g/dL 6.0-8.5 2885-2) [facility] Centercalcium, snwrd1698-07-25 10:27:00 Test Item Value Reference Range Interpretation Comments calcium, serum (test code = 1999-8) 9.6 mg/dL 8.7-10.2 [facility] Centercarbon dioxide, venous [id number] 10:27:00 Test Item Value Reference Range Interpretation Comments carbon dioxide, venous blood (test 27 mmol/L code = 2026-1) [facility] Centerchloride, yczhs9045-83-61 10:27:00 Test Item Value Reference Range Interpretation Comments chloride, serum (test code = 96 mmol/L 96-106 5-0) [facility] Centerpotassium, zywid5525-13-49 10:27:00 Test Item Value Reference Range Interpretation Comments potassium, serum (test code = 5.1 mmol/L 3.5-5.2 2823-3) [facility] Centersodium, dpvgn8085-61-68 10:27:00 Test Item Value Reference Range Interpretation Comments sodium, serum (test code = 2951-2) 138 mmol/L 134-144 [facility] Centerurea nitrogen/creatinine ratio, rdxzv0759-70-88 10:27:00 Test Item Value Reference Range Interpretation Comments urea nitrogen/creatinine 14 (unknown unit) 9-23 ratio, serum (test code = 3097-3) [facility] HealtheGFR if Gxsqrunv4122-23-10 10:27:00 Test Item Value Reference Range Interpretation Comments eGFR if 86 mL/min/{1.73 m2} >59 (test code = 48529-5) [facility] CenterEstimated Glomerular Filtration Rate (calc)2017-10-13 10:27:00 Test Item Value Reference Range Interpretation Comments Estimated Glomerular 74 mL/min/{1.73 m2} >59 Filtration Rate (calc) (test code = 29256-5) [facility] Centercreatinine, [id number] 10:27:00 Test Item Value Reference Range Interpretation Comments creatinine, serum (test code = 0.87 mg/dL 0.57-1.00 2160-0) [facility] Centerurea nitrogen, skxmo0956-72-69 10:27:00 Test Item Value Reference Range Interpretation Comments urea nitrogen, blood (test code = 12 mg/dL 6-24 3094-0) [facility] Centerblood glucose, xptoru6933-74-02 10:27:00 Test Item Value Reference Range Interpretation Comments blood glucose, random (test code = 119 mg/dL 65-99 H 2339-0) [facility] Centerimmature granulocytes, percentage of total cells, blood 2017-10-13 10:27:00 Test Item Value Reference Range Interpretation Comments immature granulocytes, percentage of 0 % total cells, blood (test code = 26462-9) [facility] Centerbasophil count, kwypgblu0234-17-99 10:27:00 Test Item Value Reference Range Interpretation Comments basophil count, absolute (test 0.0 x10E3/uL 0.0-0.2 code = 59724-5) [facility] CenterEosinophil Absolute Pyeio6480-61-20 10:27:00 Test Item Value Reference Range Interpretation Comments Eosinophil Absolute Count (test 0.1 X10E3/UL 0.0-0.4 code = 26210-8) [facility] Centermonocyte count, blood, auqscfver8322-39-83 10:27:00 Test Item Value Reference Range Interpretation Comments monocyte count, blood, automated 0.5 X10E3/UL 0.1-0.9 (test code = 742-7) [facility] Centerlymphocyte count, blood, cxljolidy7876-75-47 10:27:00 Test Item Value Reference Range Interpretation Comments lymphocyte count, blood, 1.7 X10E3/UL 0.7-3.1 automated (test code = 731-0) [facility] CenterAbsolute Zgujxnedzci0883-74-46 10:27:00 Test Item Value Reference Range Interpretation Comments Absolute Neutrophils (test code 5.4 X10E3/UL 1.4-7.0 = 43898-9) [facility] Centerbasophils as percent of blood tjlnimiduj4995-50-91 10:27:00 Test Item Value Reference Range Interpretation Comments basophils as percent of blood 0 % leukocytes (test code = 707-0) [facility] Centereosinophils as percent of blood axrcrjrtcj2429-58-20 10:27:00 Test Item Value Reference Range Interpretation Comments eosinophils as percent of blood 1 % leukocytes (test code = 713-8) [facility] Healthmonocytes as percent of blood gqqzlpuerl8391-95-62 10:27:00 Test Item Value Reference Range Interpretation Comments monocytes as percent of blood 7 % leukocytes (test code = 5905-5) [facility] Centerlymphocytes as percent of blood qugcqdioqc5169-94-41 10:27:00 Test Item Value Reference Range Interpretation Comments lymphocytes as percent of blood 22 % leukocytes (test code = 736-9) [facility] Centerneutrophils as percent of blood uzjbamjszq1317-40-62 10:27:00 Test Item Value Reference Range Interpretation Comments neutrophils as percent of blood 70 % leukocytes (test code = 770-8) [facility] Centerplatelet lqyrg1916-10-25 10:27:00 Test Item Value Reference Range Interpretation Comments platelet count (test code = 193 X10E3/UL 150-379 777-3) [facility] Centerred blood cell distribution boskk9388-60-16 10:27:00 Test Item Value Reference Range Interpretation Comments red blood cell distribution width 13.7 % 12.3-15.4 (test code = 788-0) [facility] corpuscular hemoglobin concentration, [id number] 10:27:00 Test Item Value Reference Range Interpretation Comments mean corpuscular hemoglobin 35.0 G/DL 31.5-35.7 concentration, RBC (test code = 786-4) [facility] corpuscular hemoglobin, [id number] 10:27:00 Test Item Value Reference Range Interpretation Comments mean corpuscular hemoglobin, RBC 35.6 pg 26.6-33.0 H (test code = 785-6) [facility] corpuscular volume, [id number] 10:27:00 Test Item Value Reference Range Interpretation Comments mean corpuscular volume, RBC (test 102 fL 79-97 H code = 787-2) [facility] Centerhematocrit, qdipe2631-54-92 10:27:00 Test Item Value Reference Range Interpretation Comments hematocrit, blood (test code = 4544-3) 43.7 % 34.0-46.6 [facility] Centerhemoglobin, [id number] 10:27:00 Test Item Value Reference Range Interpretation Comments hemoglobin, blood (test code = 15.3 g/dL 11.1-15.9 718-7) [facility] Centererythrocyte (RBC) [id number] 10:27:00 Test Item Value Reference Range Interpretation Comments erythrocyte (RBC) count (test 4.30 X10E6/UL 3.77-5.28 code = 789-8) [facility] Centerleukocyte count, [id number] 10:27:00 Test Item Value Reference Range Interpretation Comments leukocyte count, blood (test 7.7 X10E3/UL 3.4-10.8 code = 6690-2) [facility] CenterT-helper cells (CD4) as percent of blood lymphocytes 2017-10-13 10:27:00 Test Item Value Reference Range Interpretation Comments T-helper cells (CD4) as percent of 19.4 % 30.8-58.5 L blood lymphocytes (test code = 8123-2) [facility] CenterT-helper cells (CD4) arqsf7609-03-41 10:27:00 Test Item Value Reference Range Interpretation Comments T-helper cells (CD4) count (test code 330 /UL 359-1519 L = 52748-9) [facility] CenterHIV-1RNA, serum, by PCR, gltdsyuvoltv4581-83-37 10:27:00 Test Item Value Reference Range Interpretation Comments HIV-1RNA, serum, by PCR, quantitative 50 /mL (test code = 10010) [facility] CenterCD4/CD8 [id number] 10:27:00 Test Item Value Reference Range Interpretation Comments CD4/CD8 ratio (test code 0.70 (unknown unit) 0.92-3.72 L = 36000) [facility] CenterT-suppressor cells (CD8) as percent of blood lymphocytes 2017-10-13 10:27:00 Test Item Value Reference Range Interpretation Comments T-suppressor cells (CD8) as percent of 27.8 % 12.0-35.5 blood lymphocytes (test code = 3517) [facility] Centerabsolute [id number] 10:27:00 Test Item Value Reference Range Interpretation Comments absolute CD8 (test code = 473 (unknown unit) [phone]) [facility] Centerrapid plasma reagin antibody, [id number] 13:13:00 Test Item Value Reference Range Interpretation Comments rapid plasma reagin antibody, Non Reactive Non Reactive serum (test code = 5291-0) [facility] CenterLDL cholesterol, [id number] 13:13:00 Test Item Value Reference Range Interpretation Comments LDL cholesterol, serum (test code = 38 mg/dL 0-99 2088-1) [facility] Centervery low density zobycfwobivv3162-48-78 13:13:00 Test Item Value Reference Range Interpretation Comments very low density lipoproteins (test 24 mg/dL 5-40 code = 2091-7) [facility] CenterHDL cholesterol, [id number] 13:13:00 Test Item Value Reference Range Interpretation Comments HDL cholesterol, serum (test code = 36 mg/dL >39 L 2084-9) [facility] Centertriglyceride, serum, [id number] 13:13:00 Test Item Value Reference Range Interpretation Comments triglyceride, serum, fasting (test 119 mg/dL 0-149 code = 2571-8) [facility] Centercholesterol, [id number] 13:13:00 Test Item Value Reference Range Interpretation Comments cholesterol, serum (test code = 98 mg/dL 100-199 L 3-3) [facility] Centeralanine aminotransferase (SGPT), [id number] 13:13:00 Test Item Value Reference Range Interpretation Comments alanine aminotransferase (SGPT), serum 19 1/L 0-32 (test code = 1742-6) [facility] Centeraspartate aminotransferase (SGOT), [id number] 13:13:00 Test Item Value Reference Range Interpretation Comments aspartate aminotransferase (SGOT), 18 1/L 0-40 serum (test code = 1920-8) [facility] Centeralkaline phosphatase, [id number] 13:13:00 Test Item Value Reference Range Interpretation Comments alkaline phosphatase, serum (test 110 1/L 39-117 code = 1783-0) [facility] Centerbilirubin, serum, [id number] 13:13:00 Test Item Value Reference Range Interpretation Comments bilirubin, serum, total (test code 0.3 mg/dL 0.0-1.2 = 1975-2) [facility] Healthalbumin/globulin ratio, [id number] 13:13:00 Test Item Value Reference Range Interpretation Comments albumin/globulin ratio, 1.4 (unknown unit) 1.2-2.2 serum (test code = 1759-0) [facility] Healthglobulin, [id number] 13:13:00 Test Item Value Reference Range Interpretation Comments globulin, serum (test code 2.7 (unknown unit) 1.5-4.5 = 2336-6) [facility] Healthalbumin, [id number] 13:13:00 Test Item Value Reference Range Interpretation Comments albumin, serum (test code = 1751-7) 3.8 g/dL 3.5-5.5 [facility] Centerprotein, total, [id number] 13:13:00 Test Item Value Reference Range Interpretation Comments protein, total, serum (test code = 6.5 g/dL 6.0-8.5 2885-2) [facility] Healthcalcium, [id number] 13:13:00 Test Item Value Reference Range Interpretation Comments calcium, serum (test code = 1999-8) 8.9 mg/dL 8.7-10.2 [facility] Centercarbon dioxide, venous [id number] 13:13:00 Test Item Value Reference Range Interpretation Comments carbon dioxide, venous blood (test 24 mmol/L code = 7-1) [facility] Centerchloride, [id number] 13:13:00 Test Item Value Reference Range Interpretation Comments chloride, serum (test code = 100 mmol/L 96-106 5-0) [facility] Centerpotassium, [id number] 13:13:00 Test Item Value Reference Range Interpretation Comments potassium, serum (test code = 4.1 mmol/L 3.5-5.2 2823-3) [facility] Centersodium, [id number] 13:13:00 Test Item Value Reference Range Interpretation Comments sodium, serum (test code = 2951-2) 142 mmol/L 134-144 [facility] Centerurea nitrogen/creatinine ratio, qdnzw0305-16-02 13:13:00 Test Item Value Reference Range Interpretation Comments urea nitrogen/creatinine 13 (unknown unit) 9-23 ratio, serum (test code = 3097-3) [facility] HealtheGFR if Qczdcjra7622-00-60 13:13:00 Test Item Value Reference Range Interpretation Comments eGFR if 102 mL/min/{1.73 m2} >59 (test code = 28726-4) [facility] CenterEstimated Glomerular Filtration Rate (calc)2017-05-25 13:13:00 Test Item Value Reference Range Interpretation Comments Estimated Glomerular 89 mL/min/{1.73 m2} >59 Filtration Rate (calc) (test code = 99060-1) [facility] Centercreatinine, [id number] 13:13:00 Test Item Value Reference Range Interpretation Comments creatinine, serum (test code = 0.75 mg/dL 0.57-1.00 2160-0) [facility] Centerurea nitrogen, [id number] 13:13:00 Test Item Value Reference Range Interpretation Comments urea nitrogen, blood (test code = 10 mg/dL 6-24 3094-0) [facility] Centerblood glucose, cxeaxm7968-32-77 13:13:00 Test Item Value Reference Range Interpretation Comments blood glucose, random (test code = 123 mg/dL 65-99 H 2339-0) [facility] Centerimmature granulocytes, percentage of total cells, blood 2017-05-25 13:13:00 Test Item Value Reference Range Interpretation Comments immature granulocytes, percentage of 0 % total cells, blood (test code = 87762-5) [facility] Centerbasophil count, vxvjaosp1772-73-16 13:13:00 Test Item Value Reference Range Interpretation Comments basophil count, absolute (test 0.0 x10E3/uL 0.0-0.2 code = 24433-3) [facility] CenterEosinophil Absolute [id number] 13:13:00 Test Item Value Reference Range Interpretation Comments Eosinophil Absolute Count (test 0.1 X10E3/UL 0.0-0.4 code = 43224-0) [facility] Centermonocyte count, blood, hqdzbyujz2601-24-94 13:13:00 Test Item Value Reference Range Interpretation Comments monocyte count, blood, automated 0.6 X10E3/UL 0.1-0.9 (test code = 742-7) [facility] Centerlymphocyte count, blood, lrqiflame0400-52-28 13:13:00 Test Item Value Reference Range Interpretation Comments lymphocyte count, blood, 0.9 X10E3/UL 0.7-3.1 automated (test code = 731-0) [facility] CenterAbsolute Yqdfxtznrur9603-39-08 13:13:00 Test Item Value Reference Range Interpretation Comments Absolute Neutrophils (test code 3.6 X10E3/UL 1.4-7.0 = 63362-7) [facility] Centerbasophils as percent of blood shbnjlsfmv3188-66-82 13:13:00 Test Item Value Reference Range Interpretation Comments basophils as percent of blood 0 % leukocytes (test code = 707-0) [facility] Centereosinophils as percent of blood rnwspztrqs9774-20-09 13:13:00 Test Item Value Reference Range Interpretation Comments eosinophils as percent of blood 2 % leukocytes (test code = 713-8) [facility] Centermonocytes as percent of blood plkwmseicw6480-33-77 13:13:00 Test Item Value Reference Range Interpretation Comments monocytes as percent of blood 11 % leukocytes (test code = 5905-5) [facility] Centerlymphocytes as percent of blood ajdcjqzluj8817-25-58 13:13:00 Test Item Value Reference Range Interpretation Comments lymphocytes as percent of blood 17 % leukocytes (test code = 736-9) [facility] Centerneutrophils as percent of blood tbzpflkjih5414-49-29 13:13:00 Test Item Value Reference Range Interpretation Comments neutrophils as percent of blood 70 % leukocytes (test code = 770-8) [facility] Centerplatelet afdid2000-75-70 13:13:00 Test Item Value Reference Range Interpretation Comments platelet count (test code = 159 X10E3/UL 150-379 777-3) [facility] Centerred blood cell distribution eelqm1550-07-95 13:13:00 Test Item Value Reference Range Interpretation Comments red blood cell distribution width 12.4 % 12.3-15.4 (test code = 788-0) [facility] Centermean corpuscular hemoglobin concentration, [id number] 13:13:00 Test Item Value Reference Range Interpretation Comments mean corpuscular hemoglobin 35.4 G/DL 31.5-35.7 concentration, RBC (test code = 786-4) [facility] Centermean corpuscular hemoglobin, [id number] 13:13:00 Test Item Value Reference Range Interpretation Comments mean corpuscular hemoglobin, RBC 35.0 pg 26.6-33.0 H (test code = 785-6) [facility] Centermean corpuscular volume, [id number] 13:13:00 Test Item Value Reference Range Interpretation Comments mean corpuscular volume, RBC (test code 99 fL 79-97 H = 787-2) [facility] Centerhematocrit, pleow8580-25-97 13:13:00 Test Item Value Reference Range Interpretation Comments hematocrit, blood (test code = 4544-3) 40.4 % 34.0-46.6 [facility] Centerhemoglobin, [id number] 13:13:00 Test Item Value Reference Range Interpretation Comments hemoglobin, blood (test code = 14.3 g/dL 11.1-15.9 718-7) [facility] Centererythrocyte (RBC) [id number] 13:13:00 Test Item Value Reference Range Interpretation Comments erythrocyte (RBC) count (test 4.09 X10E6/UL 3.77-5.28 code = 789-8) [facility] Centerleukocyte count, [id number] 13:13:00 Test Item Value Reference Range Interpretation Comments leukocyte count, blood (test 5.1 X10E3/UL 3.4-10.8 code = 6690-2) [facility] CenterT-helper cells (CD4) as percent of blood lymphocytes 2017-05-25 13:13:00 Test Item Value Reference Range Interpretation Comments T-helper cells (CD4) as percent of 15.7 % 30.8-58.5 L blood lymphocytes (test code = 8123-2) [facility] CenterT-helper cells (CD4) wyoqo0812-07-94 13:13:00 Test Item Value Reference Range Interpretation Comments T-helper cells (CD4) count (test code 141 /UL 359-1519 L = 56663-0) [facility] CenterHIV-1RNA, serum, by PCR, [id number] 13:13:00 Test Item Value Reference Range Interpretation Comments HIV-1RNA, serum, by PCR, 24007 /mL quantitative (test code = 52437) [facility] CenterCD4/CD8 qowgb1633-03-32 13:13:00 Test Item Value Reference Range Interpretation Comments CD4/CD8 ratio (test code 0.51 (unknown unit) 0.92-3.72 L = 35473) [facility] CenterT-suppressor cells (CD8) as percent of blood lymphocytes 2017-05-25 13:13:00 Test Item Value Reference Range Interpretation Comments T-suppressor cells (CD8) as percent of 30.7 % 12.0-35.5 blood lymphocytes (test code = 3517) [facility] Centerabsolute [id number] 13:13:00 Test Item Value Reference Range Interpretation Comments absolute CD8 (test code = 276 (unknown unit) 376-740 16062) [facility] Centerrapid plasma reagin antibody, [id number] 09:12:00 Test Item Value Reference Range Interpretation Comments rapid plasma reagin antibody, Non Reactive Non Reactive serum (test code = 5291-0) [facility] Centeralanine aminotransferase (SGPT), [id number] 09:12:00 Test Item Value Reference Range Interpretation Comments alanine aminotransferase (SGPT), serum 12 1/L 0-32 (test code = 1742-6) [facility] Centeraspartate aminotransferase (SGOT), [id number] 09:12:00 Test Item Value Reference Range Interpretation Comments aspartate aminotransferase (SGOT), 12 1/L 0-40 serum (test code = 1920-8) [facility] Centeralkaline phosphatase, yfhel2209-07-83 09:12:00 Test Item Value Reference Range Interpretation Comments alkaline phosphatase, serum (test 146 1/L 39-117 H code = 1783-0) [facility] Centerbilirubin, serum, [id number] 09:12:00 Test Item Value Reference Range Interpretation Comments bilirubin, serum, total (test code 0.3 mg/dL 0.0-1.2 = 1975-2) [facility] Centeralbumin/globulin ratio, knvtt1949-78-93 09:12:00 Test Item Value Reference Range Interpretation Comments albumin/globulin ratio, 1.6 (unknown unit) 1.2-2.2 serum (test code = 1759-0) [facility] Healthglobulin, pvzme1295-59-38 09:12:00 Test Item Value Reference Range Interpretation Comments globulin, serum (test code 2.5 (unknown unit) 1.5-4.5 = 2336-6) [facility] Healthalbumin, peyjs7844-99-95 09:12:00 Test Item Value Reference Range Interpretation Comments albumin, serum (test code = 1751-7) 3.9 g/dL 3.5-5.5 [facility] Healthprotein, total, fecht1200-82-18 09:12:00 Test Item Value Reference Range Interpretation Comments protein, total, serum (test code = 6.4 g/dL 6.0-8.5 2885-2) [facility] Centercalcium, [id number] 09:12:00 Test Item Value Reference Range Interpretation Comments calcium, serum (test code = 2000-8) 9.0 mg/dL 8.7-10.2 [facility] Centercarbon dioxide, venous [id number] 09:12:00 Test Item Value Reference Range Interpretation Comments carbon dioxide, venous blood (test 24 mmol/L 18-29 code = 7-1) [facility] Centerchloride, tahcs3537-17-25 09:12:00 Test Item Value Reference Range Interpretation Comments chloride, serum (test code = 95 mmol/L 96-106 L 5-0) [facility] Centerpotassium, [id number] 09:12:00 Test Item Value Reference Range Interpretation Comments potassium, serum (test code = 4.5 mmol/L 3.5-5.2 2823-3) [facility] Centersodium, ubghi9886-16-14 09:12:00 Test Item Value Reference Range Interpretation Comments sodium, serum (test code = 2951-2) 135 mmol/L 134-144 [facility] Centerurea nitrogen/creatinine ratio, [id number] 09:12:00 Test Item Value Reference Range Interpretation Comments urea nitrogen/creatinine 10 (unknown unit) 9-23 ratio, serum (test code = 3097-3) [facility] HealtheGFR if Wojsajmu6556-58-66 09:12:00 Test Item Value Reference Range Interpretation Comments eGFR if 106 mL/min/{1.73 m2} >59 (test code = 67138-1) [facility] CenterEstimated Glomerular Filtration Rate (calc)2017-03-01 09:12:00 Test Item Value Reference Range Interpretation Comments Estimated Glomerular 92 mL/min/{1.73 m2} >59 Filtration Rate (calc) (test code = 28512-1) [facility] Centercreatinine, [id number] 09:12:00 Test Item Value Reference Range Interpretation Comments creatinine, serum (test code = 0.73 mg/dL 0.57-1.00 2160-0) [facility] Centerurea nitrogen, [id number] 09:12:00 Test Item Value Reference Range Interpretation Comments urea nitrogen, blood (test code = 7 mg/dL 6-24 3094-0) [facility] Centerblood glucose, kmmrcd2384-12-50 09:12:00 Test Item Value Reference Range Interpretation Comments blood glucose, random (test code = 130 mg/dL 65-99 H 2339-0) [facility] Centerimmature granulocytes, percentage of total cells, blood 2017-03-01 09:12:00 Test Item Value Reference Range Interpretation Comments immature granulocytes, percentage of 0 % total cells, blood (test code = 09184-4) [facility] Centerbasophil count, pbsujzos4075-12-33 09:12:00 Test Item Value Reference Range Interpretation Comments basophil count, absolute (test 0.0 x10E3/uL 0.0-0.2 code = 61061-1) [facility] CenterEosinophil Absolute Inaee4899-97-29 09:12:00 Test Item Value Reference Range Interpretation Comments Eosinophil Absolute Count (test 0.1 X10E3/UL 0.0-0.4 code = 02943-9) [facility] Centermonocyte count, blood, zznumgdyy2737-60-45 09:12:00 Test Item Value Reference Range Interpretation Comments monocyte count, blood, automated 0.4 X10E3/UL 0.1-0.9 (test code = 742-7) [facility] Centerlymphocyte count, blood, vhiwtfltw9147-04-85 09:12:00 Test Item Value Reference Range Interpretation Comments lymphocyte count, blood, 1.1 X10E3/UL 0.7-3.1 automated (test code = 731-0) [facility] CenterAbsolute Fhoppunspbk9174-73-12 09:12:00 Test Item Value Reference Range Interpretation Comments Absolute Neutrophils (test code 3.7 X10E3/UL 1.4-7.0 = 58398-6) [facility] Centerbasophils as percent of blood tbvxbkxfkc8896-66-00 09:12:00 Test Item Value Reference Range Interpretation Comments basophils as percent of blood 0 % leukocytes (test code = 707-0) [facility] Centereosinophils as percent of blood sackczhpwo2913-95-45 09:12:00 Test Item Value Reference Range Interpretation Comments eosinophils as percent of blood 3 % leukocytes (test code = 713-8) [facility] Healthmonocytes as percent of blood guzdzihodj1360-12-42 09:12:00 Test Item Value Reference Range Interpretation Comments monocytes as percent of blood 7 % leukocytes (test code = 5905-5) [facility] Centerlymphocytes as percent of blood ljinkqldoe2064-96-35 09:12:00 Test Item Value Reference Range Interpretation Comments lymphocytes as percent of blood 21 % leukocytes (test code = 736-9) [facility] Centerneutrophils as percent of blood odexwmvfkm1771-68-75 09:12:00 Test Item Value Reference Range Interpretation Comments neutrophils as percent of blood 69 % leukocytes (test code = 770-8) [facility] Centerplatelet cisux2101-68-60 09:12:00 Test Item Value Reference Range Interpretation Comments platelet count (test code = 233 X10E3/UL 150-379 777-3) [facility] Centerred blood cell distribution vwjyr4115-98-45 09:12:00 Test Item Value Reference Range Interpretation Comments red blood cell distribution width 13.1 % 12.3-15.4 (test code = 788-0) [facility] Centermean corpuscular hemoglobin concentration, [id number] 09:12:00 Test Item Value Reference Range Interpretation Comments mean corpuscular hemoglobin 34.4 G/DL 31.5-35.7 concentration, RBC (test code = 786-4) [facility] hemoglobin, [id number] 09:12:00 Test Item Value Reference Range Interpretation Comments mean corpuscular hemoglobin, RBC 35.0 pg 26.6-33.0 H (test code = 785-6) [facility] Centermean corpuscular volume, [id number] 09:12:00 Test Item Value Reference Range Interpretation Comments mean corpuscular volume, RBC (test 102 fL 79-97 H code = 787-2) [facility] Centerhematocrit, dlnll8669-93-00 09:12:00 Test Item Value Reference Range Interpretation Comments hematocrit, blood (test code = 4544-3) 42.2 % 34.0-46.6 [facility] Centerhemoglobin, qnywe3574-44-72 09:12:00 Test Item Value Reference Range Interpretation Comments hemoglobin, blood (test code = 14.5 g/dL 11.1-15.9 718-7) [facility] Centererythrocyte (RBC) [id number] 09:12:00 Test Item Value Reference Range Interpretation Comments erythrocyte (RBC) count (test 4.14 X10E6/UL 3.77-5.28 code = 789-8) [facility] Centerleukocyte count, sdhxe5585-81-03 09:12:00 Test Item Value Reference Range Interpretation Comments leukocyte count, blood (test 5.3 X10E3/UL 3.4-10.8 code = 6690-2) [facility] CenterT-helper cells (CD4) as percent of blood lymphocytes 2017-03-01 09:12:00 Test Item Value Reference Range Interpretation Comments T-helper cells (CD4) as percent of 19.0 % 30.8-58.5 L blood lymphocytes (test code = 8123-2) [facility] CenterT-helper cells (CD4) ovywq1327-01-68 09:12:00 Test Item Value Reference Range Interpretation Comments T-helper cells (CD4) count (test code 209 /UL 359-1519 L = 36153-1) [facility] CenterHIV-1RNA, serum, by PCR, ciexfmoykvbp5627-08-04 09:12:00 Test Item Value Reference Range Interpretation Comments HIV-1RNA, serum, by PCR, <20 copies/mL quantitative (test code = 12116) [facility] CenterCD4/CD8 mnhav1896-96-92 09:12:00 Test Item Value Reference Range Interpretation Comments CD4/CD8 ratio (test code 0.68 (unknown unit) 0.92-3.72 L = 85996) [facility] CenterT-suppressor cells (CD8) as percent of blood lymphocytes 2017-03-01 09:12:00 Test Item Value Reference Range Interpretation Comments T-suppressor cells (CD8) as percent of 27.9 % 12.0-35.5 blood lymphocytes (test code = 3517) [facility] Centerabsolute [id number] 09:12:00 Test Item Value Reference Range Interpretation Comments absolute CD8 (test code = 307 (unknown unit) [phone]) [facility] CenterNeisseria gonorrhoeae DNA kfcab5547-28-31 11:00:00 Test Item Value Reference Range Interpretation Comments Neisseria gonorrhoeae DNA probe Negative Negative (test code = 91560-0) [facility] Centerchlamydia DNA [id number] 11:00:00 Test Item Value Reference Range Interpretation Comments chlamydia DNA probe (test code = Negative Negative 96235-3) [facility] CenterQuantiferon Gold TB blood test for tuberculosis screening 2016-10-19 08:07:00 Test Item Value Reference Range Interpretation Comments Quantiferon Gold TB blood test for Negative Negative tuberculosis screening (test code = 57493-4) [facility] Centerrapid plasma reagin antibody, vzzki6442-88-98 08:07:00 Test Item Value Reference Range Interpretation Comments rapid plasma reagin antibody, Non Reactive Non Reactive serum (test code = 5291-0) [facility] CenterLDL cholesterol, mpnau7919-00-08 08:07:00 Test Item Value Reference Range Interpretation Comments LDL cholesterol, serum (test code = 53 mg/dL 0-99 2088-1) [facility] Centervery low density xacuvlhbhggm4690-98-78 08:07:00 Test Item Value Reference Range Interpretation Comments very low density lipoproteins (test 26 mg/dL 5-40 code = 2091-7) [facility] CenterHDL cholesterol, majvm1361-28-92 08:07:00 Test Item Value Reference Range Interpretation Comments HDL cholesterol, serum (test code = 43 mg/dL >39 5-9) [facility] Centertriglyceride, serum, dannosi4325-72-39 08:07:00 Test Item Value Reference Range Interpretation Comments triglyceride, serum, fasting (test 128 mg/dL 0-149 code = 2571-8) [facility] Centercholesterol, [id number] 08:07:00 Test Item Value Reference Range Interpretation Comments cholesterol, serum (test code = 122 mg/dL 099-776 2492-3) [facility] Centeralanine aminotransferase (SGPT), vyirs4399-18-95 08:07:00 Test Item Value Reference Range Interpretation Comments alanine aminotransferase (SGPT), serum 18 1/L 0-32 (test code = 1742-6) [facility] Centeraspartate aminotransferase (SGOT), onoew3497-57-08 08:07:00 Test Item Value Reference Range Interpretation Comments aspartate aminotransferase (SGOT), 13 1/L 0-40 serum (test code = 1920-8) [facility] Centeralkaline phosphatase, zpfkw4747-30-87 08:07:00 Test Item Value Reference Range Interpretation Comments alkaline phosphatase, serum (test 156 1/L 39-117 H code = 1783-0) [facility] [id number] 08:07:00 Test Item Value Reference Range Interpretation Comments bilirubin, serum, total (test code 0.4 mg/dL 0.0-1.2 = 1975-2) [facility]eralbumin/globulin ratio, [id number] 08:07:00 Test Item Value Reference Range Interpretation Comments albumin/globulin ratio, 1.8 (unknown unit) 1.1-2.5 serum (test code = 1759-0) [facility] Healthglobulin, [id number] 08:07:00 Test Item Value Reference Range Interpretation Comments globulin, serum (test code 2.4 (unknown unit) 1.5-4.5 = 2336-6) [facility] Healthalbumin, osrei7622-30-06 08:07:00 Test Item Value Reference Range Interpretation Comments albumin, serum (test code = 1751-7) 4.3 g/dL 3.5-5.5 [facility]protein, total, [id number] 08:07:00 Test Item Value Reference Range Interpretation Comments protein, total, serum (test code = 6.7 g/dL 6.0-8.5 2885-2) [facility]calcium, [id number] 08:07:00 Test Item Value Reference Range Interpretation Comments calcium, serum (test code = 2000-8) 9.4 mg/dL 8.7-10.2 [facility] Centercarbon dioxide, venous [id number] 08:07:00 Test Item Value Reference Range Interpretation Comments carbon dioxide, venous blood (test 28 mmol/L -29 code = 2026-1) [facility] Centerchloride, [id number] 08:07:00 Test Item Value Reference Range Interpretation Comments chloride, serum (test code = 93 mmol/L 97-106 L 2075-0) [facility] Healthpotassium, [id number] 08:07:00 Test Item Value Reference Range Interpretation Comments potassium, serum (test code = 4.5 mmol/L 3.5-5.2 2823-3) [facility] Centersodium, [id number] 08:07:00 Test Item Value Reference Range Interpretation Comments sodium, serum (test code = 2951-2) 136 mmol/L 136-144 [facility] Centerurea nitrogen/creatinine ratio, [id number] 08:07:00 Test Item Value Reference Range Interpretation Comments urea nitrogen/creatinine 10 (unknown unit) 9-23 ratio, serum (test code = 3097-3) [facility] HealtheGFR if Ufpfroyq0917-14-90 08:07:00 Test Item Value Reference Range Interpretation Comments eGFR if 100 mL/min/{1.73 m2} >59 (test code = 59286-2) [facility] CenterEstimated Glomerular Filtration Rate (calc)2016-10-19 08:07:00 Test Item Value Reference Range Interpretation Comments Estimated Glomerular 87 mL/min/{1.73 m2} >59 Filtration Rate (calc) (test code = 34850-0) [facility] Centercreatinine, [id number] 08:07:00 Test Item Value Reference Range Interpretation Comments creatinine, serum (test code = 0.77 mg/dL 0.57-1.00 2160-0) [facility] Centerurea nitrogen, [id number] 08:07:00 Test Item Value Reference Range Interpretation Comments urea nitrogen, blood (test code = 8 mg/dL 6-24 3094-0) [facility] Centerblood glucose, [id number] 08:07:00 Test Item Value Reference Range Interpretation Comments blood glucose, random (test code = 152 mg/dL 65-99 H 2339-0) [facility] Centerimmature granulocytes, percentage of total cells, blood 2016-10-19 08:07:00 Test Item Value Reference Range Interpretation Comments immature granulocytes, percentage of 0 % total cells, blood (test code = 51001-7) [facility] Healthbasophil count, usvgklng5701-89-86 08:07:00 Test Item Value Reference Range Interpretation Comments basophil count, absolute (test 0.0 x10E3/uL 0.0-0.2 code = 50787-0) [facility] HealthEosinophil Absolute Nvglo0273-52-69 08:07:00 Test Item Value Reference Range Interpretation Comments Eosinophil Absolute Count (test 0.2 X10E3/UL 0.0-0.4 code = 80749-6) [facility] Centermonocyte count, blood, [id number] 08:07:00 Test Item Value Reference Range Interpretation Comments monocyte count, blood, automated 0.5 X10E3/UL 0.1-0.9 (test code = 742-7) [facility] Centerlymphocyte count, blood, vuxbsgtrq4236-85-04 08:07:00 Test Item Value Reference Range Interpretation Comments lymphocyte count, blood, 1.7 X10E3/UL 0.7-3.1 automated (test code = 731-0) [facility] CenterAbsolute Ovlntbljjhk8707-18-07 08:07:00 Test Item Value Reference Range Interpretation Comments Absolute Neutrophils (test code 5.2 X10E3/UL 1.4-7.0 = 91725-7) [facility] Centerbasophils as percent of blood brcazcxqlc5403-67-55 08:07:00 Test Item Value Reference Range Interpretation Comments basophils as percent of blood 0 % leukocytes (test code = 707-0) [facility] Healtheosinophils as percent of blood fdywumzndt5120-13-43 08:07:00 Test Item Value Reference Range Interpretation Comments eosinophils as percent of blood 3 % leukocytes (test code = 713-8) [facility] Healthmonocytes as percent of blood napftiaevj0202-12-53 08:07:00 Test Item Value Reference Range Interpretation Comments monocytes as percent of blood 6 % leukocytes (test code = 5905-5) [facility] Centerlymphocytes as percent of blood fwepxusunl9787-99-60 08:07:00 Test Item Value Reference Range Interpretation Comments lymphocytes as percent of blood 22 % leukocytes (test code = 736-9) [facility] Centerneutrophils as percent of blood bcwbhpzyzs2028-45-07 08:07:00 Test Item Value Reference Range Interpretation Comments neutrophils as percent of blood 69 % leukocytes (test code = 770-8) [facility] Centerplatelet vyzvj5485-42-31 08:07:00 Test Item Value Reference Range Interpretation Comments platelet count (test code = 257 X10E3/UL 150-379 777-3) [facility] Centerred blood cell distribution bhwtw3451-42-72 08:07:00 Test Item Value Reference Range Interpretation Comments red blood cell distribution width 12.9 % 12.3-15.4 (test code = 788-0) [facility] corpuscular hemoglobin concentration, [id number] 08:07:00 Test Item Value Reference Range Interpretation Comments mean corpuscular hemoglobin 34.3 G/DL 31.5-35.7 concentration, RBC (test code = 786-4) [facility], [id number] 08:07:00 Test Item Value Reference Range Interpretation Comments mean corpuscular hemoglobin, RBC 34.5 pg 26.6-33.0 H (test code = 785-6) [facility] corpuscular volume, [id number] 08:07:00 Test Item Value Reference Range Interpretation Comments mean corpuscular volume, RBC (test 101 fL 79-97 H code = 787-2) [facility] Centerhematocrit, [id number] 08:07:00 Test Item Value Reference Range Interpretation Comments hematocrit, blood (test code = 4544-3) 44.6 % 34.0-46.6 [facility] Centerhemoglobin, [id number] 08:07:00 Test Item Value Reference Range Interpretation Comments hemoglobin, blood (test code = 15.3 g/dL 11.1-15.9 718-7) [facility] Centererythrocyte (RBC) [id number] 08:07:00 Test Item Value Reference Range Interpretation Comments erythrocyte (RBC) count (test 4.43 X10E6/UL 3.77-5.28 code = 789-8) [facility] Centerleukocyte count, amzgs3615-09-02 08:07:00 Test Item Value Reference Range Interpretation Comments leukocyte count, blood (test 7.7 X10E3/UL 3.4-10.8 code = 6690-2) [facility] CenterT-helper cells (CD4) as percent of blood lymphocytes 2016-10-19 08:07:00 Test Item Value Reference Range Interpretation Comments T-helper cells (CD4) as percent of 22.0 % 30.8-58.5 L blood lymphocytes (test code = 8123-2) [facility] CenterT-helper cells (CD4) olrqt0374-05-58 08:07:00 Test Item Value Reference Range Interpretation Comments T-helper cells (CD4) count (test code 374 /UL 359-1519 = 46740-8) [facility] CenterHIV-1RNA, serum, by PCR, bwxlkyebgnlq1043-91-34 08:07:00 Test Item Value Reference Range Interpretation Comments HIV-1RNA, serum, by PCR, <20 copies/mL quantitative (test code = 28620) [facility] CenterCD4/CD8 solsz1936-23-23 08:07:00 Test Item Value Reference Range Interpretation Comments CD4/CD8 ratio (test code 0.84 (unknown unit) 0.92-3.72 L = 70581) [facility] CenterT-suppressor cells (CD8) as percent of blood lymphocytes 2016-10-19 08:07:00 Test Item Value Reference Range Interpretation Comments T-suppressor cells (CD8) as percent of 26.3 % 12.0-35.5 blood lymphocytes (test code = 3517) [facility] Centerabsolute [id number] 08:07:00 Test Item Value Reference Range Interpretation Comments absolute CD8 (test code = 447 (unknown unit) 177-933 18202) [facility] Centerhepatitis C antibody, [id number] 09:14:00 Test Item Value Reference Range Interpretation Comments hepatitis C antibody, 0.2 (unknown unit) 0.0-0.9 serum (test code = 5199-5) [facility] Centervitamin D 25-hydroxy, qngjk0543-28-33 09:14:00 Test Item Value Reference Range Interpretation Comments vitamin D 25-hydroxy, serum (test 27.6 ng/mL 30.0-100.0 L code = 24147-1) [facility] Centerrapid plasma reagin antibody, [id number] 09:14:00 Test Item Value Reference Range Interpretation Comments rapid plasma reagin antibody, Non Reactive Non Reactive serum (test code = 5291-0) [facility] CenterLDL cholesterol, [id number] 09:14:00 Test Item Value Reference Range Interpretation Comments LDL cholesterol, serum (test code = 82 mg/dL 0-99 2088-1) [facility] Centervery low density rniicahvmvnf8923-98-25 09:14:00 Test Item Value Reference Range Interpretation Comments very low density lipoproteins (test 40 mg/dL 5-40 code = 1-7) [facility] CenterHDL cholesterol, sircz2975-95-49 09:14:00 Test Item Value Reference Range Interpretation Comments HDL cholesterol, serum (test code = 42 mg/dL >39 2084-9) [facility] Centertriglyceride, serum, jntdrjo2066-85-27 09:14:00 Test Item Value Reference Range Interpretation Comments triglyceride, serum, fasting (test 199 mg/dL 0-149 H code = 2571-8) [facility] Centercholesterol, nqpxu3443-04-06 09:14:00 Test Item Value Reference Range Interpretation Comments cholesterol, serum (test code = 164 mg/dL 780-538 0503-3) [facility] Centeralanine aminotransferase (SGPT), snend3311-13-29 09:14:00 Test Item Value Reference Range Interpretation Comments alanine aminotransferase (SGPT), serum 12 1/L 0-32 (test code = 1742-6) [facility] Centeraspartate aminotransferase (SGOT), [id number] 09:14:00 Test Item Value Reference Range Interpretation Comments aspartate aminotransferase (SGOT), 14 1/L 0-40 serum (test code = 1920-8) [facility] Centeralkaline phosphatase, [id number] 09:14:00 Test Item Value Reference Range Interpretation Comments alkaline phosphatase, serum (test 169 1/L 39-117 H code = 1783-0) [facility] Centerbilirubin, serum, cmzoi3815-03-38 09:14:00 Test Item Value Reference Range Interpretation Comments bilirubin, serum, total (test code 0.4 mg/dL 0.0-1.2 = 1975-2) [facility] Healthalbumin/globulin ratio, [id number] 09:14:00 Test Item Value Reference Range Interpretation Comments albumin/globulin ratio, 1.8 (unknown unit) 1.1-2.5 serum (test code = 1759-0) [facility] Healthglobulin, [id number] 09:14:00 Test Item Value Reference Range Interpretation Comments globulin, serum (test code 2.4 (unknown unit) 1.5-4.5 = 2336-6) [facility] Healthalbumin, [id number] 09:14:00 Test Item Value Reference Range Interpretation Comments albumin, serum (test code = 1751-7) 4.3 g/dL 3.5-5.5 [facility] Healthprotein, total, [id number] 09:14:00 Test Item Value Reference Range Interpretation Comments protein, total, serum (test code = 6.7 g/dL 6.0-8.5 2885-2) [facility] Centercalcium, [id number] 09:14:00 Test Item Value Reference Range Interpretation Comments calcium, serum (test code = 1999-8) 9.4 mg/dL 8.7-10.2 [facility] Centercarbon dioxide, venous zxrem2402-07-96 09:14:00 Test Item Value Reference Range Interpretation Comments carbon dioxide, venous blood (test 24 mmol/L 18-29 code = 2026-1) [facility] Healthchloride, munub8375-48-85 09:14:00 Test Item Value Reference Range Interpretation Comments chloride, serum (test code = 96 mmol/L 97-108 L 5-0) [facility] Healthpotassium, [id number] 09:14:00 Test Item Value Reference Range Interpretation Comments potassium, serum (test code = 4.4 mmol/L 3.5-5.2 2823-3) [facility] Centersodium, [id number] 09:14:00 Test Item Value Reference Range Interpretation Comments sodium, serum (test code = 2951-2) 137 mmol/L 134-144 [facility] Centerurea nitrogen/creatinine ratio, wjaka6216-71-09 09:14:00 Test Item Value Reference Range Interpretation Comments urea nitrogen/creatinine 13 (unknown unit) 9-23 ratio, serum (test code = 3097-3) [facility] HealtheGFR if Hdmipike0011-18-19 09:14:00 Test Item Value Reference Range Interpretation Comments eGFR if 117 mL/min/{1.73 m2} >59 (test code = 22080-0) [facility] CenterEstimated Glomerular Filtration Rate (calc)2016-07-01 09:14:00 Test Item Value Reference Range Interpretation Comments Estimated Glomerular 102 mL/min/{1.73 m2} >59 Filtration Rate (calc) (test code = 61185-1) [facility] Centercreatinine, [id number] 09:14:00 Test Item Value Reference Range Interpretation Comments creatinine, serum (test code = 0.61 mg/dL 0.57-1.00 2160-0) [facility] Centerurea nitrogen, [id number] 09:14:00 Test Item Value Reference Range Interpretation Comments urea nitrogen, blood (test code = 8 mg/dL 6-24 3094-0) [facility] Centerblood glucose, [id number] 09:14:00 Test Item Value Reference Range Interpretation Comments blood glucose, random (test code = 106 mg/dL 65-99 H 2339-0) [facility] Centerimmature granulocytes, percentage of total cells, blood 2016-07-01 09:14:00 Test Item Value Reference Range Interpretation Comments immature granulocytes, percentage of 0 % total cells, blood (test code = 94002-1) [facility] Centerbasophil count, ngtpsjmm0531-48-45 09:14:00 Test Item Value Reference Range Interpretation Comments basophil count, absolute (test 0.0 x10E3/uL 0.0-0.2 code = 32338-0) [facility] CenterEosinophil Absolute Ieukz3750-98-07 09:14:00 Test Item Value Reference Range Interpretation Comments Eosinophil Absolute Count (test 0.3 X10E3/UL 0.0-0.4 code = 26165-7) [facility] Centermonocyte count, blood, roeabqtbc5064-18-50 09:14:00 Test Item Value Reference Range Interpretation Comments monocyte count, blood, automated 0.4 X10E3/UL 0.1-0.9 (test code = 742-7) [facility] Centerlymphocyte count, blood, duvijwtks6021-04-95 09:14:00 Test Item Value Reference Range Interpretation Comments lymphocyte count, blood, 1.5 X10E3/UL 0.7-3.1 automated (test code = 731-0) [facility] CenterAbsolute Hrgbiwsueat9221-27-45 09:14:00 Test Item Value Reference Range Interpretation Comments Absolute Neutrophils (test code 3.6 X10E3/UL 1.4-7.0 = 40127-7) [facility] Centerbasophils as percent of blood eychfqvpaj8116-17-43 09:14:00 Test Item Value Reference Range Interpretation Comments basophils as percent of blood 0 % leukocytes (test code = 707-0) [facility] Centereosinophils as percent of blood bluualpbqu4909-84-38 09:14:00 Test Item Value Reference Range Interpretation Comments eosinophils as percent of blood 5 % leukocytes (test code = 713-8) [facility] Healthmonocytes as percent of blood rygwzcghtj0932-16-02 09:14:00 Test Item Value Reference Range Interpretation Comments monocytes as percent of blood 7 % leukocytes (test code = 5905-5) [facility] Centerlymphocytes as percent of blood noxscpwmbr1274-81-96 09:14:00 Test Item Value Reference Range Interpretation Comments lymphocytes as percent of blood 25 % leukocytes (test code = 736-9) [facility] Centerneutrophils as percent of blood mzcgqzjgpw6776-19-14 09:14:00 Test Item Value Reference Range Interpretation Comments neutrophils as percent of blood 63 % leukocytes (test code = 770-8) [facility] Centerplatelet xscfs5007-10-01 09:14:00 Test Item Value Reference Range Interpretation Comments platelet count (test code = 210 X10E3/UL 150-379 777-3) [facility] Centerred blood cell distribution rhfrp0550-19-59 09:14:00 Test Item Value Reference Range Interpretation Comments red blood cell distribution width 13.2 % 12.3-15.4 (test code = 788-0) [facility] Centermean corpuscular hemoglobin concentration, [id number] 09:14:00 Test Item Value Reference Range Interpretation Comments mean corpuscular hemoglobin 35.0 G/DL 31.5-35.7 concentration, RBC (test code = 786-4) [facility] Centermean corpuscular hemoglobin, [id number] 09:14:00 Test Item Value Reference Range Interpretation Comments mean corpuscular hemoglobin, RBC 35.2 pg 26.6-33.0 H (test code = 785-6) [facility] Centermean corpuscular volume, [id number] 09:14:00 Test Item Value Reference Range Interpretation Comments mean corpuscular volume, RBC (test 101 fL 79-97 H code = 787-2) [facility] Centerhematocrit, lficn0671-23-09 09:14:00 Test Item Value Reference Range Interpretation Comments hematocrit, blood (test code = 4544-3) 40.8 % 34.0-46.6 [facility] Centerhemoglobin, quqtc2208-67-07 09:14:00 Test Item Value Reference Range Interpretation Comments hemoglobin, blood (test code = 14.3 g/dL 11.1-15.9 718-7) [facility] Centererythrocyte (RBC) ftqiy1946-15-69 09:14:00 Test Item Value Reference Range Interpretation Comments erythrocyte (RBC) count (test 4.06 X10E6/UL 3.77-5.28 code = 789-8) [facility] Centerleukocyte count, phfdh0321-85-16 09:14:00 Test Item Value Reference Range Interpretation Comments leukocyte count, blood (test 5.8 X10E3/UL 3.4-10.8 code = 6690-2) [facility] CenterT-helper cells (CD4) as percent of blood lymphocytes 2016-07-01 09:14:00 Test Item Value Reference Range Interpretation Comments T-helper cells (CD4) as percent of 19.2 % 30.8-58.5 L blood lymphocytes (test code = 8123-2) [facility] CenterT-helper cells (CD4) eoajf5930-54-32 09:14:00 Test Item Value Reference Range Interpretation Comments T-helper cells (CD4) count (test code 288 /UL 359-1519 L = 75069-5) [facility] Centerhepatitis B surface okwuhpn5908-84-81 09:14:00 Test Item Value Reference Range Interpretation Comments hepatitis B surface antigen (test Negative Negative code = 79) [facility] CenterHIV-1RNA, serum, by PCR, jzgmhgbgmnub4491-48-87 09:14:00 Test Item Value Reference Range Interpretation Comments HIV-1RNA, serum, by PCR, quantitative 30 /mL (test code = 07178) [facility] CenterCD4/CD8 [id number] 09:14:00 Test Item Value Reference Range Interpretation Comments CD4/CD8 ratio (test code 0.68 (unknown unit) 0.92-3.72 L = 32452) [facility] CenterT-suppressor cells (CD8) as percent of blood lymphocytes 2016-07-01 09:14:00 Test Item Value Reference Range Interpretation Comments T-suppressor cells (CD8) as percent of 28.2 % 12.0-35.5 blood lymphocytes (test code = 3517) [facility] Centerabsolute [id number] 09:14:00 Test Item Value Reference Range Interpretation Comments absolute CD8 (test code = 423 (unknown unit) [phone]) [facility] Centerrapid plasma reagin antibody, [id number] 09:42:00 Test Item Value Reference Range Interpretation Comments rapid plasma reagin antibody, Non Reactive Non Reactive serum (test code = 5291-0) [facility] CenterLDL cholesterol, seybr9668-23-77 09:42:00 Test Item Value Reference Range Interpretation Comments LDL cholesterol, serum (test code = 58 mg/dL 0-99 9-1) [facility] Centervery low density gvjuffawuoer3733-67-78 09:42:00 Test Item Value Reference Range Interpretation Comments very low density lipoproteins (test 32 mg/dL 5-40 code = 2091-7) [facility] CenterHDL cholesterol, mhhsn9424-01-19 09:42:00 Test Item Value Reference Range Interpretation Comments HDL cholesterol, serum (test code = 43 mg/dL >39 5-9) [facility] Centertriglyceride, serum, qvsvkyf3449-36-48 09:42:00 Test Item Value Reference Range Interpretation Comments triglyceride, serum, fasting (test 161 mg/dL 0-149 H code = 2571-8) [facility] Centercholesterol, [id number] 09:42:00 Test Item Value Reference Range Interpretation Comments cholesterol, serum (test code = 133 mg/dL 931-461 1964-3) [facility] Healthalanine aminotransferase (SGPT), pnldt7223-48-24 09:42:00 Test Item Value Reference Range Interpretation Comments alanine aminotransferase (SGPT), serum 15 1/L 0-32 (test code = 1742-6) [facility] Centeraspartate aminotransferase (SGOT), ixlcm9087-08-95 09:42:00 Test Item Value Reference Range Interpretation Comments aspartate aminotransferase (SGOT), 16 1/L 0-40 serum (test code = 1920-8) [facility] Centeralkaline phosphatase, iognl2019-51-76 09:42:00 Test Item Value Reference Range Interpretation Comments alkaline phosphatase, serum (test 130 1/L 39-117 H code = 1783-0) [facility] Centerbilirubin, serum, [id number] 09:42:00 Test Item Value Reference Range Interpretation Comments bilirubin, serum, total (test code 0.3 mg/dL 0.0-1.2 = 1975-2) [facility] Centeralbumin/globulin ratio, jfomn7777-63-09 09:42:00 Test Item Value Reference Range Interpretation Comments albumin/globulin ratio, 1.5 (unknown unit) 1.1-2.5 serum (test code = 1759-0) [facility] Healthglobulin, lnsio6421-33-98 09:42:00 Test Item Value Reference Range Interpretation Comments globulin, serum (test code 2.7 (unknown unit) 1.5-4.5 = 2336-6) [facility] Healthalbumin, [id number] 09:42:00 Test Item Value Reference Range Interpretation Comments albumin, serum (test code = 1751-7) 4.1 g/dL 3.5-5.5 [facility] Centerprotein, total, [id number] 09:42:00 Test Item Value Reference Range Interpretation Comments protein, total, serum (test code = 6.8 g/dL 6.0-8.5 2885-2) [facility] Centercalcium, [id number] 09:42:00 Test Item Value Reference Range Interpretation Comments calcium, serum (test code = 1999-8) 9.4 mg/dL 8.7-10.2 [facility]carbon [facility], venous yvhjd4980-08-87 09:42:00 Test Item Value Reference Range Interpretation Comments carbon dioxide, venous blood (test 29 mmol/L 18-29 code = 7-1) [facility] Centerchloride, fdvyb0049-73-27 09:42:00 Test Item Value Reference Range Interpretation Comments chloride, serum (test code = 104 mmol/L 97-108 2075-0) [facility] Centerpotassium, djbon1627-39-74 09:42:00 Test Item Value Reference Range Interpretation Comments potassium, serum (test code = 4.4 mmol/L 3.5-5.2 2823-3) [facility] Centersodium, [id number] 09:42:00 Test Item Value Reference Range Interpretation Comments sodium, serum (test code = 2951-2) 145 mmol/L 134-144 H [facility] Centerurea nitrogen/creatinine ratio, odnja9266-04-12 09:42:00 Test Item Value Reference Range Interpretation Comments urea nitrogen/creatinine 20 (unknown unit) 9-23 ratio, serum (test code = 3097-3) [facility] CentereGFR if Ecutbnbr9357-87-53 09:42:00 Test Item Value Reference Range Interpretation Comments eGFR if 117 mL/min/{1.73 m2} >59 (test code = 80717-4) [facility] CenterEstimated Glomerular Filtration Rate (calc)2016-01-27 09:42:00 Test Item Value Reference Range Interpretation Comments Estimated Glomerular 102 mL/min/{1.73 m2} >59 Filtration Rate (calc) (test code = 19859-2) [facility] Centercreatinine, [id number] 09:42:00 Test Item Value Reference Range Interpretation Comments creatinine, serum (test code = 0.61 mg/dL 0.57-1.00 2160-0) [facility] Centerurea [facility], [id number] 09:42:00 Test Item Value Reference Range Interpretation Comments urea nitrogen, blood (test code = 12 mg/dL 6-24 3094-0) [facility] Centerblood glucose, [id number] 09:42:00 Test Item Value Reference Range Interpretation Comments blood glucose, random (test code = 127 mg/dL 65-99 H 2339-0) [facility] Centerimmature granulocytes, percentage of total cells, blood 2016-01-27 09:42:00 Test Item Value Reference Range Interpretation Comments immature granulocytes, percentage of 0 % total cells, blood (test code = 44907-9) [facility] Healthbasophil count, epuardtz9159-63-11 09:42:00 Test Item Value Reference Range Interpretation Comments basophil count, absolute (test 0.0 x10E3/uL 0.0-0.2 code = 01626-4) [facility] HealthEosinophil Absolute [id number] 09:42:00 Test Item Value Reference Range Interpretation Comments Eosinophil Absolute Count (test 0.3 X10E3/UL 0.0-0.4 code = 37405-2) [facility] Centermonocyte count, blood, kbfbngort2490-34-20 09:42:00 Test Item Value Reference Range Interpretation Comments monocyte count, blood, automated 0.4 X10E3/UL 0.1-0.9 (test code = 742-7) [facility] Centerlymphocyte count, blood, pbxtqxazd4396-39-44 09:42:00 Test Item Value Reference Range Interpretation Comments lymphocyte count, blood, 1.4 X10E3/UL 0.7-3.1 automated (test code = 731-0) [facility] CenterAbsolute Fjuqjqvdmqj3741-03-59 09:42:00 Test Item Value Reference Range Interpretation Comments Absolute Neutrophils (test code 3.2 X10E3/UL 1.4-7.0 = 71746-2) [facility] Centerbasophils as percent of blood bxjhfibxff8086-18-94 09:42:00 Test Item Value Reference Range Interpretation Comments basophils as percent of blood 0 % leukocytes (test code = 707-0) [facility] Healtheosinophils as percent of blood tvpxylcodb1283-67-98 09:42:00 Test Item Value Reference Range Interpretation Comments eosinophils as percent of blood 5 % leukocytes (test code = 713-8) [facility] Healthmonocytes as percent of blood knpxswsjwo1511-89-58 09:42:00 Test Item Value Reference Range Interpretation Comments monocytes as percent of blood 7 % leukocytes (test code = 5905-5) [facility] Centerlymphocytes as percent of blood umnrxbnbxg2175-77-27 09:42:00 Test Item Value Reference Range Interpretation Comments lymphocytes as percent of blood 26 % leukocytes (test code = 736-9) [facility] Centerneutrophils as percent of blood gzksqdbisr2414-54-09 09:42:00 Test Item Value Reference Range Interpretation Comments neutrophils as percent of blood 62 % leukocytes (test code = 770-8) [facility] Centerplatelet [id number] 09:42:00 Test Item Value Reference Range Interpretation Comments platelet count (test code = 197 X10E3/UL 150-379 777-3) [facility] Centerred blood cell distribution fcaui4371-36-93 09:42:00 Test Item Value Reference Range Interpretation Comments red blood cell distribution width 13.6 % 12.3-15.4 (test code = 788-0) [facility] hemoglobin concentration, [id number] 09:42:00 Test Item Value Reference Range Interpretation Comments mean corpuscular hemoglobin 34.3 G/DL 31.5-35.7 concentration, RBC (test code = 786-4) [facility] corpuscular hemoglobin, [id number] 09:42:00 Test Item Value Reference Range Interpretation Comments mean corpuscular hemoglobin, RBC 35.1 pg 26.6-33.0 H (test code = 785-6) [facility] corpuscular volume, [id number] 09:42:00 Test Item Value Reference Range Interpretation Comments mean corpuscular volume, RBC (test 102 fL 79-97 H code = 787-2) [facility] Centerhematocrit, cfpna1424-17-27 09:42:00 Test Item Value Reference Range Interpretation Comments hematocrit, blood (test code = 4544-3) 40.2 % 34.0-46.6 [facility] Centerhemoglobin, zeudm0145-69-59 09:42:00 Test Item Value Reference Range Interpretation Comments hemoglobin, blood (test code = 13.8 g/dL 11.1-15.9 718-7) [facility] Centererythrocyte (RBC) drvlx7607-26-43 09:42:00 Test Item Value Reference Range Interpretation Comments erythrocyte (RBC) count (test 3.93 X10E6/UL 3.77-5.28 code = 789-8) [facility] Centerleukocyte count, [id number] 09:42:00 Test Item Value Reference Range Interpretation Comments leukocyte count, blood (test 5.2 X10E3/UL 3.4-10.8 code = 6690-2) [facility] CenterT-helper cells (CD4) as percent of blood lymphocytes 2016-01-27 09:42:00 Test Item Value Reference Range Interpretation Comments T-helper cells (CD4) as percent of 19.2 % 30.8-58.5 L blood lymphocytes (test code = 8123-2) [facility] CenterT-helper cells (CD4) wzzjt7040-09-72 09:42:00 Test Item Value Reference Range Interpretation Comments T-helper cells (CD4) count (test code 269 /UL 359-1519 L = 72307-1) [facility] CenterHIV-1RNA, serum, by PCR, nxywuegtxdwd3206-60-39 09:42:00 Test Item Value Reference Range Interpretation Comments HIV-1RNA, serum, by PCR, <20 copies/mL quantitative (test code = 67185) [facility] CenterCD4/CD8 [id number] 09:42:00 Test Item Value Reference Range Interpretation Comments CD4/CD8 ratio (test code 0.67 (unknown unit) 0.92-3.72 L = 30214) [facility] CenterT-suppressor cells (CD8) as percent of blood lymphocytes 2016-01-27 09:42:00 Test Item Value Reference Range Interpretation Comments T-suppressor cells (CD8) as percent of 28.8 % 12.0-35.5 blood lymphocytes (test code = 3517) [facility] Centerabsolute [id number] 09:42:00 Test Item Value Reference Range Interpretation Comments absolute CD8 (test code = 403 (unknown unit) 881-007 49280) [facility] Centerhuman leukocyte antigen [id number] 10:14:15 Test Item Value Reference Range Interpretation Comments human leukocyte antigen B57 (test negative code = 873004) [facility] CenterQuantiferon Gold TB blood test for tuberculosis screening 2015-06-17 10:13:00 Test Item Value Reference Range Interpretation Comments Quantiferon Gold TB blood test for Negative Negative tuberculosis screening (test code = 95023-0) [facility] Centerrapid plasma reagin antibody, ehqpi4356-35-60 10:13:00 Test Item Value Reference Range Interpretation Comments rapid plasma reagin antibody, Non Reactive Non Reactive serum (test code = 5291-0) [facility] CenterLDL cholesterol, zfybd9298-36-69 10:13:00 Test Item Value Reference Range Interpretation Comments LDL cholesterol, serum (test code = 33 mg/dL 0-99 2088-1) [facility] Centervery low density cpiyvhyftoyb3710-89-20 10:13:00 Test Item Value Reference Range Interpretation Comments very low density lipoproteins (test 17 mg/dL 5-40 code = 2091-7) [facility] CenterHDL cholesterol, izwdw5387-92-18 10:13:00 Test Item Value Reference Range Interpretation Comments HDL cholesterol, serum (test code = 38 mg/dL >39 L 2084-9) [facility] Centertriglyceride, serum, ieimqln6344-91-01 10:13:00 Test Item Value Reference Range Interpretation Comments triglyceride, serum, fasting (test 83 mg/dL 0-149 code = 2571-8) [facility] Centercholesterol, vmjqe4585-90-44 10:13:00 Test Item Value Reference Range Interpretation Comments cholesterol, serum (test code = 88 mg/dL 100-199 L 2092-3) [facility] Centeralanine aminotransferase (SGPT), mkxhe2975-34-95 10:13:00 Test Item Value Reference Range Interpretation Comments alanine aminotransferase (SGPT), serum 15 1/L 0-32 (test code = 1742-6) [facility] Centeraspartate aminotransferase (SGOT), luxcu1771-77-65 10:13:00 Test Item Value Reference Range Interpretation Comments aspartate aminotransferase (SGOT), 23 1/L 0-40 serum (test code = 1920-8) [facility] Centeralkaline phosphatase, hwckk0486-85-01 10:13:00 Test Item Value Reference Range Interpretation Comments alkaline phosphatase, serum (test 120 1/L 39-117 H code = 1783-0) [facility] Centerbilirubin, serum, mwiuj3905-44-30 10:13:00 Test Item Value Reference Range Interpretation Comments bilirubin, serum, total (test code 0.3 mg/dL 0.0-1.2 = 1974-) [facility] Healthalbumin/globulin ratio, mltia2158-79-24 10:13:00 Test Item Value Reference Range Interpretation Comments albumin/globulin ratio, 1.8 (unknown unit) 1.1-2.5 serum (test code = 1759-0) [facility] Healthglobulin, gczbe1424-92-54 10:13:00 Test Item Value Reference Range Interpretation Comments globulin, serum (test code 2.2 (unknown unit) 1.5-4.5 = 2336-6) [facility] Healthalbumin, uvzcg9482-86-09 10:13:00 Test Item Value Reference Range Interpretation Comments albumin, serum (test code = 1751-7) 3.9 g/dL 3.5-5.5 [facility] Centerprotein, total, [id number] 10:13:00 Test Item Value Reference Range Interpretation Comments protein, total, serum (test code = 6.1 g/dL 6.0-8.5 2885-2) [facility] Centercalcium, [id number] 10:13:00 Test Item Value Reference Range Interpretation Comments calcium, serum (test code = 1999-8) 9.4 mg/dL 8.7-10.2 [facility] Centercarbon dioxide, venous gucyf2454-50-20 10:13:00 Test Item Value Reference Range Interpretation Comments carbon dioxide, venous blood (test 26 mmol/L 18-29 code = 2026-1) [facility] Centerchloride, [id number] 10:13:00 Test Item Value Reference Range Interpretation Comments chloride, serum (test code = 102 mmol/L 97-108 5-0) [facility] Healthpotassium, tyflg2864-99-85 10:13:00 Test Item Value Reference Range Interpretation Comments potassium, serum (test code = 3.1 mmol/L 3.5-5.2 L 2823-3) [facility] Centersodium, xteij8687-29-06 10:13:00 Test Item Value Reference Range Interpretation Comments sodium, serum (test code = 2951-2) 144 mmol/L 134-144 [facility] Centerurea nitrogen/creatinine ratio, sbcht8271-94-59 10:13:00 Test Item Value Reference Range Interpretation Comments urea nitrogen/creatinine 11 (unknown unit) 9-23 ratio, serum (test code = 3097-3) [facility] HealtheGFR if Qkkkamjp9416-79-14 10:13:00 Test Item Value Reference Range Interpretation Comments eGFR if 113 mL/min/{1.73 m2} >59 (test code = 84880-8) [facility] CenterEstimated Glomerular Filtration Rate (calc)2015-06-17 10:13:00 Test Item Value Reference Range Interpretation Comments Estimated Glomerular 98 mL/min/{1.73 m2} >59 Filtration Rate (calc) (test code = 35086-7) [facility] Centercreatinine, [id number] 10:13:00 Test Item Value Reference Range Interpretation Comments creatinine, serum (test code = 0.70 mg/dL 0.57-1.00 2160-0) [facility] Centerurea nitrogen, hjgqo3810-68-22 10:13:00 Test Item Value Reference Range Interpretation Comments urea nitrogen, blood (test code = 8 mg/dL 6-24 3094-0) [facility] Centerblood glucose, oeppzw8035-57-06 10:13:00 Test Item Value Reference Range Interpretation Comments blood glucose, random (test code = 77 mg/dL 65-99 2339-0) [facility] Centerimmature granulocytes, percentage of total cells, blood 2015-06-17 10:13:00 Test Item Value Reference Range Interpretation Comments immature granulocytes, percentage of 0 % total cells, blood (test code = 64276-2) [facility] Centerbasophil count, locdeedt4283-55-92 10:13:00 Test Item Value Reference Range Interpretation Comments basophil count, absolute (test 0.0 x10E3/uL 0.0-0.2 code = 67821-8) [facility] CenterEosinophil Absolute [id number] 10:13:00 Test Item Value Reference Range Interpretation Comments Eosinophil Absolute Count (test 0.2 X10E3/UL 0.0-0.4 code = 25501-9) [facility] Centermonocyte count, blood, pdvuswtkq8800-94-73 10:13:00 Test Item Value Reference Range Interpretation Comments monocyte count, blood, automated 0.3 X10E3/UL 0.1-0.9 (test code = 742-7) [facility] Centerlymphocyte count, blood, gudacywzj7179-69-99 10:13:00 Test Item Value Reference Range Interpretation Comments lymphocyte count, blood, 1.3 X10E3/UL 0.7-3.1 automated (test code = 731-0) [facility] CenterAbsolute Vufbardotyv3561-14-55 10:13:00 Test Item Value Reference Range Interpretation Comments Absolute Neutrophils (test code 3.5 X10E3/UL 1.4-7.0 = 85386-4) [facility] Centerbasophils as percent of blood tkqydplblt5382-02-32 10:13:00 Test Item Value Reference Range Interpretation Comments basophils as percent of blood 0 % leukocytes (test code = 707-0) [facility] Centereosinophils as percent of blood algexytdos0286-10-48 10:13:00 Test Item Value Reference Range Interpretation Comments eosinophils as percent of blood 4 % leukocytes (test code = 713-8) [facility] Centermonocytes as percent of blood qacedbeybp5985-88-13 10:13:00 Test Item Value Reference Range Interpretation Comments monocytes as percent of blood 6 % leukocytes (test code = 5905-5) [facility] Centerlymphocytes as percent of blood bcpwjblidw4264-94-11 10:13:00 Test Item Value Reference Range Interpretation Comments lymphocytes as percent of blood 24 % leukocytes (test code = 736-9) [facility] Centerneutrophils as percent of blood tsdaotxuig3016-82-56 10:13:00 Test Item Value Reference Range Interpretation Comments neutrophils as percent of blood 66 % leukocytes (test code = 770-8) [facility] Centerplatelet bxtjx6067-03-42 10:13:00 Test Item Value Reference Range Interpretation Comments platelet count (test code = 243 X10E3/UL 150-379 777-3) [facility] Centerred blood cell distribution cvhvj1636-06-75 10:13:00 Test Item Value Reference Range Interpretation Comments red blood cell distribution width 14.1 % 12.3-15.4 (test code = 788-0) [facility] corpuscular hemoglobin concentration, LPR9415-95-00 10:13:00 Test Item Value Reference Range Interpretation Comments mean corpuscular hemoglobin 35.6 G/DL 31.5-35.7 concentration, RBC (test code = 786-4) [facility] hemoglobin, [id number] 10:13:00 Test Item Value Reference Range Interpretation Comments mean corpuscular hemoglobin, RBC 37.0 pg 26.6-33.0 H (test code = 785-6) [facility] Centermean corpuscular volume, YBF9332-00-01 10:13:00 Test Item Value Reference Range Interpretation Comments mean corpuscular volume, RBC (test 104 fL 79-97 H code = 787-2) [facility] Centerhematocrit, zwiqu2959-92-88 10:13:00 Test Item Value Reference Range Interpretation Comments hematocrit, blood (test code = 4544-3) 33.1 % 34.0-46.6 L [facility] Centerhemoglobin, gplsk7169-53-00 10:13:00 Test Item Value Reference Range Interpretation Comments hemoglobin, blood (test code = 11.8 g/dL 11.1-15.9 718-7) [facility] Centererythrocyte (RBC) kvoeq4506-31-66 10:13:00 Test Item Value Reference Range Interpretation Comments erythrocyte (RBC) count (test 3.19 X10E6/UL 3.77-5.28 L code = 789-8) [facility] Centerleukocyte count, noakl3472-12-61 10:13:00 Test Item Value Reference Range Interpretation Comments leukocyte count, blood (test 5.3 X10E3/UL 3.4-10.8 code = 6690-2) [facility] CenterT-helper cells (CD4) as percent of blood lymphocytes 2015-06-17 10:13:00 Test Item Value Reference Range Interpretation Comments T-helper cells (CD4) as percent of 13.0 % 30.8-58.5 L blood lymphocytes (test code = 8123-2) [facility] CenterT-helper cells (CD4) svwvl5022-23-68 10:13:00 Test Item Value Reference Range Interpretation Comments T-helper cells (CD4) count (test code 169 /UL 359-1519 L = 13045-4) [facility] CenterHIV-1RNA, serum, by PCR, plecyrdsxqvu6109-22-92 10:13:00 Test Item Value Reference Range Interpretation Comments HIV-1RNA, serum, by PCR, <20 copies/mL quantitative (test code = 45925) [facility] CenterCD4/CD8 ebiab3891-87-46 10:13:00 Test Item Value Reference Range Interpretation Comments CD4/CD8 ratio (test code 0.47 (unknown unit) 0.92-3.72 L = 39901) [facility] CenterT-suppressor cells (CD8) as percent of blood lymphocytes 2015-06-17 10:13:00 Test Item Value Reference Range Interpretation Comments T-suppressor cells (CD8) as percent of 27.6 % 12.0-35.5 blood lymphocytes (test code = 3517) [facility] Centerabsolute [id number] 10:13:00 Test Item Value Reference Range Interpretation Comments absolute CD8 (test code = 359 (unknown unit) 109-688 45327) [facility] CenterT-helper cells (CD4) count, lowest absolute value 2015-03-18 10:06:41 Test Item Value Reference Range Interpretation Comments T-helper cells (CD4) 150 (unknown unit) count, lowest absolute value (test code = 36683) [facility] Centerrapid plasma reagin antibody, wzbhl8208-04-51 09:53:00 Test Item Value Reference Range Interpretation Comments rapid plasma reagin antibody, Non Reactive Non Reactive serum (test code = 5291-0) [facility] Centerhepatitis C antibody, grary5463-48-31 09:53:00 Test Item Value Reference Range Interpretation Comments hepatitis C antibody, serum (test code <0.1 0.0-0.9 = 5199-5) [facility] CenterLDL cholesterol, xmjfj8281-09-96 09:53:00 Test Item Value Reference Range Interpretation Comments LDL cholesterol, serum (test code = 133 mg/dL 0-99 H 2088-) [facility] Centervery low density bqjqshwukujq2389-79-20 09:53:00 Test Item Value Reference Range Interpretation Comments very low density lipoproteins (test 36 mg/dL 5-40 code = 2091-7) [facility] CenterHDL cholesterol, qzpkm4775-01-16 09:53:00 Test Item Value Reference Range Interpretation Comments HDL cholesterol, serum (test code = 45 mg/dL >39 2084-9) [facility] Centertriglyceride, serum, kbumuun9629-15-58 09:53:00 Test Item Value Reference Range Interpretation Comments triglyceride, serum, fasting (test 178 mg/dL 0-149 H code = 2571-8) [facility] Centercholesterol, nfpkq7564-34-93 09:53:00 Test Item Value Reference Range Interpretation Comments cholesterol, serum (test code = 214 mg/dL 100-199 H 2093-3) [facility] Centeralanine aminotransferase (SGPT), verfw0620-52-65 09:53:00 Test Item Value Reference Range Interpretation Comments alanine aminotransferase (SGPT), serum 9 1/L 0-32 (test code = 1742-6) [facility] Centeraspartate aminotransferase (SGOT), cwxfq5947-94-65 09:53:00 Test Item Value Reference Range Interpretation Comments aspartate aminotransferase (SGOT), 10 1/L 0-40 serum (test code = 1920-8) [facility] Centeralkaline phosphatase, [id number] 09:53:00 Test Item Value Reference Range Interpretation Comments alkaline phosphatase, serum (test 120 1/L 39-117 H code = 1783-0) [facility] Centerbilirubin, serum, [id number] 09:53:00 Test Item Value Reference Range Interpretation Comments bilirubin, serum, total (test code 0.5 mg/dL 0.0-1.2 = 1975-2) [facility] Centeralbumin/globulin ratio, usfdc9311-15-71 09:53:00 Test Item Value Reference Range Interpretation Comments albumin/globulin ratio, 1.7 (unknown unit) 1.1-2.5 serum (test code = 1759-0) [facility] Healthglobulin, rqmys6186-42-63 09:53:00 Test Item Value Reference Range Interpretation Comments globulin, serum (test code 2.7 (unknown unit) 1.5-4.5 = 2336-6) [facility] Healthalbumin, nyksf1420-38-92 09:53:00 Test Item Value Reference Range Interpretation Comments albumin, serum (test code = 1751-7) 4.6 g/dL 3.5-5.5 [facility] Centerprotein, total, [id number] 09:53:00 Test Item Value Reference Range Interpretation Comments protein, total, serum (test code = 7.3 g/dL 6.0-8.5 2885-2) [facility] Centercalcium, lxwru9779-82-56 09:53:00 Test Item Value Reference Range Interpretation Comments calcium, serum (test code = 1999-8) 9.7 mg/dL 8.7-10.2 [facility] Centercarbon dioxide, venous nihjx9320-29-97 09:53:00 Test Item Value Reference Range Interpretation Comments carbon dioxide, venous blood (test 27 mmol/L 18-29 code = 7-1) [facility] Healthchloride, ngsvt0033-43-92 09:53:00 Test Item Value Reference Range Interpretation Comments chloride, serum (test code = 100 mmol/L 97-108 5-0) [facility] Healthpotassium, bygav0532-93-09 09:53:00 Test Item Value Reference Range Interpretation Comments potassium, serum (test code = 4.4 mmol/L 3.5-5.2 2823-3) [facility] Centersodium, [id number] 09:53:00 Test Item Value Reference Range Interpretation Comments sodium, serum (test code = 2951-2) 142 mmol/L 134-144 [facility] Centerurea nitrogen/creatinine ratio, easfk6674-22-34 09:53:00 Test Item Value Reference Range Interpretation Comments urea nitrogen/creatinine 15 (unknown unit) 9-23 ratio, serum (test code = 3097-3) [facility] HealtheGFR if Kqfgmsli0848-77-94 09:53:00 Test Item Value Reference Range Interpretation Comments eGFR if 105 mL/min/{1.73 m2} >59 (test code = 61852-1) [facility] CenterEstimated Glomerular Filtration Rate (calc)2015-03-03 09:53:00 Test Item Value Reference Range Interpretation Comments Estimated Glomerular 91 mL/min/{1.73 m2} >59 Filtration Rate (calc) (test code = 85551-4) [facility] Centercreatinine, [id number] 09:53:00 Test Item Value Reference Range Interpretation Comments creatinine, serum (test code = 0.74 mg/dL 0.57-1.00 2160-0) [facility] Centerurea nitrogen, qknzg8479-27-12 09:53:00 Test Item Value Reference Range Interpretation Comments urea nitrogen, blood (test code = 11 mg/dL 6-24 3094-0) [facility] Centerblood glucose, jvkyxw0946-74-56 09:53:00 Test Item Value Reference Range Interpretation Comments blood glucose, random (test code = 96 mg/dL 65-99 2339-0) [facility] Centerimmature granulocytes, percentage of total cells, blood 2015-03-03 09:53:00 Test Item Value Reference Range Interpretation Comments immature granulocytes, percentage of 0 % total cells, blood (test code = 67014-2) [facility] Healthbasophil count, bhcwiegd3802-39-67 09:53:00 Test Item Value Reference Range Interpretation Comments basophil count, absolute (test 0.0 x10E3/uL 0.0-0.2 code = 47928-2) [facility] HealthEosinophil Absolute Cgxzf7830-73-12 09:53:00 Test Item Value Reference Range Interpretation Comments Eosinophil Absolute Count (test 0.2 X10E3/UL 0.0-0.4 code = 74169-1) [facility] Centermonocyte count, blood, kvsbzskxl4215-47-57 09:53:00 Test Item Value Reference Range Interpretation Comments monocyte count, blood, automated 0.3 X10E3/UL 0.1-0.9 (test code = 742-7) [facility] Centerlymphocyte count, blood, duxkmjpds1127-84-89 09:53:00 Test Item Value Reference Range Interpretation Comments lymphocyte count, blood, 1.7 X10E3/UL 0.7-3.1 automated (test code = 731-0) [facility] CenterAbsolute Kegvmjoescm1952-27-92 09:53:00 Test Item Value Reference Range Interpretation Comments Absolute Neutrophils (test code 3.5 X10E3/UL 1.4-7.0 = 72545-0) [facility] Centerbasophils as percent of blood imgitenxsd8407-62-21 09:53:00 Test Item Value Reference Range Interpretation Comments basophils as percent of blood 0 % leukocytes (test code = 707-0) [facility] Healtheosinophils as percent of blood vwzpzuzmzj1276-74-46 09:53:00 Test Item Value Reference Range Interpretation Comments eosinophils as percent of blood 4 % leukocytes (test code = 713-8) [facility] Healthmonocytes as percent of blood ppdjkswjzb7035-78-84 09:53:00 Test Item Value Reference Range Interpretation Comments monocytes as percent of blood 6 % leukocytes (test code = 5905-5) [facility] [facility] zjiugydaxy8038-74-37 09:53:00 Test Item Value Reference Range Interpretation Comments lymphocytes as percent of blood 30 % leukocytes (test code = 736-9) [facility] blood aijikqeqeb4288-21-79 09:53:00 Test Item Value Reference Range Interpretation Comments neutrophils as percent of blood 60 % leukocytes (test code = 770-8) [facility]platelet vzhlx2605-84-12 09:53:00 Test Item Value Reference Range Interpretation Comments platelet count (test code = 225 X10E3/UL 150-379 777-3) [facility] distribution ocyyx9195-71-24 09:53:00 Test Item Value Reference Range Interpretation Comments red blood cell distribution width 13.6 % 12.3-15.4 (test code = 788-0) [facility] concentration, [id number] 09:53:00 Test Item Value Reference Range Interpretation Comments mean corpuscular hemoglobin 33.3 G/DL 31.5-35.7 concentration, RBC (test code = 786-4) [facility] hemoglobin, [id number] 09:53:00 Test Item Value Reference Range Interpretation Comments mean corpuscular hemoglobin, RBC 35.4 pg 26.6-33.0 H (test code = 785-6) [facility] corpus[facility] volume, [id number] 09:53:00 Test Item Value Reference Range Interpretation Comments mean corpuscular volume, RBC (test 106 fL 79-97 H code = 787-2) [facility]oc[facility], [id number] 09:53:00 Test Item Value Reference Range Interpretation Comments hematocrit, blood (test code = 4544-3) 44.1 % 34.0-46.6 [facility]oglobin, myllu8298-88-78 09:53:00 Test Item Value Reference Range Interpretation Comments hemoglobin, blood (test code = 14.7 g/dL 11.1-15.9 718-7) [facility] sgnli0598-65-09 09:53:00 Test Item Value Reference Range Interpretation Comments erythrocyte (RBC) count (test 4.15 X10E6/UL 3.77-5.28 code = 789-8) [facility]ukocyte count, zcvar1966-11-28 09:53:00 Test Item Value Reference Range Interpretation Comments leukocyte count, blood (test 5.8 X10E3/UL 3.4-10.8 code = 6690-2) [facility] CenterT-helper cells (CD4) as percent of blood lymphocytes 2015-03-03 09:53:00 Test Item Value Reference Range Interpretation Comments T-helper cells (CD4) as percent of 18.7 % 30.8-58.5 L blood lymphocytes (test code = 8123-2) [facility] cells (CD4) gwhjy0299-53-74 09:53:00 Test Item Value Reference Range Interpretation Comments T-helper cells (CD4) count (test code 318 /UL 359-1519 L = 18876-4) [facility] CenterHIV-CMIA (Chemiluminescent Microparticle Immuno Assay) 2015-03-03 09:53:00 Test Item Value Reference Range Interpretation Comments HIV-CMIA (Chemiluminescent Reactive Non Reactive A Microparticle Immuno Assay) (test code = 720565) [facility] CenterHIV-1RNA, serum, by PCR, pakjzawkvhne1027-22-07 09:53:00 Test Item Value Reference Range Interpretation Comments HIV-1RNA, serum, by PCR, <20 copies/mL quantitative (test code = 88031) [facility], wgjqz9707-12-85 09:53:00 Test Item Value Reference Range Interpretation Comments hepatitis A antibody, total (test Negative Negative code = 75) [facility] B core antibody, ertyd5617-34-87 09:53:00 Test Item Value Reference Range Interpretation Comments hepatitis B core antibody, total Negative Negative (test code = 77) [facility] surface hioezkf1342-20-69 09:53:00 Test Item Value Reference Range Interpretation Comments hepatitis B surface antigen (test Negative Negative code = 79) [facility] Centertoxoplasma gondii antibody, [id number] 09:53:00 Test Item Value Reference Range Interpretation Comments toxoplasma gondii antibody, IgG (test <3.0 0.0-5.9 code = 2430) [facility]he[facility] surface cuxzrxvj8485-31-93 09:53:00 Test Item Value Reference Range Interpretation Comments hepatitis B surface antibody Non Reactive (test code = 78) [facility] CenterCD4/CD8 limmg8434-70-61 09:53:00 Test Item Value Reference Range Interpretation Comments CD4/CD8 ratio (test code 0.73 (unknown unit) 0.92-3.72 L = 45871) [facility] CenterT-suppressor cells (CD8) as percent of blood lymphocytes 2015-03-03 09:53:00 Test Item Value Reference Range Interpretation Comments T-suppressor cells (CD8) as percent of 25.7 % 12.0-35.5 blood lymphocytes (test code = 3517) [facility] Centerabsolute [id number] 09:53:00 Test Item Value Reference Range Interpretation Comments absolute CD8 (test code = 437 (unknown unit) [phone]) [facility]- XR CHEST 1 [id number] 08:19:00 FAX: Yudith Crenshaw [phone] [place]: St: DIS FAX: Manuel Esteban [phone] Name: GUERRERO MURRIETA [facility] : 1960 Age/S: 53/F [address] [facility] Unit #: [id number] Loc: [place], [place]: [place] [address] Acct: [id number] Dis Date: Status: DIS IN PHONE #: [phone] Exam Date: 02/27/2014809 FAX #: [phone] Reason: COPD EXAMS: CPT CODE: [id number] XR CHEST 1 V 84339 CHEST, FRONTAL VIEW HISTORY: COPD FINDINGS: Since 02/26/14, lungs remain emphysematous and clear. The heart size is normal. Aorta is partially calcified. Minimal degenerative changes affect the thoracic spine. IMPRESSION: No ev idence of acute airspace disease. at 0819 Reported and signed by: Anita Gonzales M.D. CC: Yudith Eastman MD; Manuel Esteban MD Technologist: LEXI VINSON [facility] Date/Time/By: 02/27/2014 (818) : By: [email or web address] PAGE 1 Signed Report FAX: Yudith Crenshaw [phone] [place]: St: DIS FAX: Manuel Esteban MD [phone] Name: GUERRERO MURRIETA [facility] : 1960 Age/S: 53/F [address] [facility] Unit #: [id number] Loc: [place], [place]: [place] [address] Acct: [id number] Dis Date: Status: DIS IN PHONE #: [phone] Exam Date: 02/27/2014809 FAX #: [phone] Reason: COPD EXAMS: CPT CODE: [id number] XR CHEST 1 V 45767 <Continued> Orig Print D/T: S: 02/27/2014 (08) PAGE 2 Signed Report- XR CHEST 1 [id number] 21:21:00 FAX: Manuel Esteban MD [phone] [place]: St: DIS Name: GUERRERO MURRIETA [facility] : 1960 Age/S: 53/F [address] [facility] [id number] Loc: [place], [place]: [place] [address] Acct: [id number] Dis Date: Status: DIS IN PHONE #: [phone] Exam Date: 02/26/20141747 FAX #: [phone] Reason: CHEST PAIN EXAMS: CPT CODE: [id number] XR CHEST 1 V 03160 CHEST, FRONTAL VIEW HISTORY: CHEST PAIN FINDINGS: Since 02/03/14, lungs are emphysematous and clear. The heart size is normal. Aorta is partially calcified. The bones are intact. IMPRESSION: No evidence of acute airspace disease. at 2121 Reported and signed by: Anita Gonzales M.D. CC: Manuel Esteban MD Technologist: PEÑA SMITH [facility] Date/Time/By: 02/26/2014 (2120) : By: [email or web address] PAGE 1 Signed Report FAX: Manuel Esteban MD [phone] [place]: St: DIS----- Name: GUERRERO MURRIETA [facility] : 1960 Age/S: 53/F [address] [facility] #: [id number] Loc: [place], [place]: [place] [address] Acct: [id number] Dis Date: Status: DIS IN PHONE #: [phone] Exam Date: 02/26/20141747 FAX #: [phone] Reason: CHEST PAIN EXAMS: CPT CODE: [id number] XR CHEST 1 V 67339 <Continued> Orig Print D/T: S: 02/26/2014 (7565) PAGE 2 Signed Report- XR CHEST 1 [id number] 16:54:00 FAX: Amaya Estrada MD [phone] [place]: St: UNK Name: GUERRERO MURRIETA [facility] : 1960 Age/S: 53/F [address] [facility] [employer] Unit#: [id number] Loc: [place], [place]: [place] [address] Acct: [id number] Dis Date: Status: UNK PHONE #: [phone] Exam Date: 02/03/2014 1622 FAX #: [phone] Reason: cp EXAMS: CPT CODE: [id number] XR CHEST 1 V 77486 REASON FOR EXAM: Chest pain COMPARISON: 2012. Chest, single view portable The lungs are hyperinflated and clear. Heart size is normal. No effusion or pneumothorax can be seen. Osseous structures appear to be intact. IMPRESSION: No acute cardiopulmonary disease. Hyperinflated lung pattern. at 4609 Reported and signed by: Zoran Fuller M.D. CC: Amaya Estrada MD Technologist: YESY LOCKETT [facility] Date/Time/By: 02/03/2014 (3697) : By: [facility] PAGE 1 Signed Report FAX: Amaya Estrada MD [phone] [place]: St: UNK------- Name: GUERRERO MURRIETA [facility] : 1960 Age/S: 53/F [address] [facility] Unit #: [id number] Loc: [place], [place]: [place] [address] Acct: [id number] Dis Date: Status: [facility] PHONE #: [phone] Exam Date: 02/03/2014 1622 FAX #: [phone] Reason: cp EXAMS: CPT CODE: [id number] XR CHEST 1 V 52966 <Continued> Orig Print D/T: S: 02/03/2014 (4841) PAGE 2 Signed Report- CT ABD PELVIS W/[id number] 07:54:00 FAX: Julia Burns MD [phone] [place]: St: [facility] Name: GUERRERO MURRIETA [facility] : 1960 Age/S: 52/F [address] [facility] Unit: [id number] Loc: [place], [place]: [place] [address] Acct: [id number] Dis Date: Status: [facility] PHONE #: [phone] Exam Date: 10/18/2013 2345 FAX #: [phone] Reason: gen'd abd pain, IV contrast only EXAMS: CPT CODE: [id number] CT ABD PELVIS W/CONT 82059 HISTORY: Abdominal pain, nausea and vomiting. CT [...] Signed Report (CONTINUED) FAX: Julia Burns MD [phone] [place]: St: [facility] -- Name: GUERRERO MURRIETA [facility] : 1960 Age/S: 52/F [address] [facility] Unit: [id number] Loc: [place], [place]: [place] [address] Acct: [id number] Dis Date: Status: [facility] PHONE #: [phone] Exam Date: 10/18/2013 9841 FAX #: [phone] Reason: gen'dabd pain, IV contrast only EXAMS: CPT CODE: [id number] CT ABD PELVIS W/CONT 65557 <Continued> Electronically Signed by Aureliano Fuller on10/19/2013 at 7162 Reported and signed by: Zoran Fuller M.D. CC: Julia Burns MD Technologist: YESY Ramirez Dt/Tm: 10/19/2013 (0754) t.RCM Orig Print D/T: S: 10/19/2013 (0758 6.44 321.13 PAGE 2 Signed Report- XR CHEST 1 [id number] 21:46:00 FAX: Alec Damian MD [phone] [place]: St: [facility] FAX: Julia Burns MD [phone] Name: GUERRERO MURRIETA [facility] : 1960 Age/S: 52/F [address] [facility] Unit #: [id number] Loc: [place], [place]: [place] [address] Acct: [id number] Dis Date: Status: [facility] PHONE #: [phone] Exam Date: 10/18/20132131 FAX #: [phone] Reason: abd pain EXAMS: CPT CODE: [id number] XR CHEST 1 V 50839 CHEST, 1 VIEW HISTORY: abd pain FINDINGS: Since 05/18/13, the lungs remain hyperinflated is and clear. No consolidation, pleural effusion or pneumothorax. The heart size is normal. Aorta is partially calcified. The bones are intact. IMPRESSION: No evidence of acute airspace disease. COPD. ElectronicallySigned by Aureliano Gonzales on 10/18/2013 at 9791 Reported and signed by: Anita Gonzales M.D. CC: Alec Damian MD; Julia Burns MD Technologist: PEÑA SMITH Trnscrd Date/Time/By: 10/18/2013 (2145) : By: [email or web address] PAGE 1 Signed Report FAX: Alec Damian MD [phone] [place]: St: [facility] FAX: Julia Burns MD [phone] Name: GUERRERO MURRIETA [facility] : 1960 Age/S: 52/F [address] Unit #: [id number] Loc: [place], [place]: [place] [address] Acct: [id number] Dis Date: Status: UNK PHONE #: [phone] Exam Date: 10/18/20132131 FAX #: [phone] Reason: abd pain EXAMS: CPT CODE: [id number] XR CHEST 1 V 01614 <Continued> Orig Print D/T: S: 10/18/2013 (2148) PAGE 2 Signed Report- XR CHEST 1 [id number] 10:12:00 FAX: Mikhail Bender MD [phone] [place]: St: [facility] FAX: Yudith Crenshaw [phone] Name: GUERRERO MURRIETA [facility] : 1960 Age/S: 52/F [address] Unit #: [id number] Loc: [place], [place]: [place] [address] Acct: [id number] Dis Date: Status: UN PHONE #: [phone] Exam Date: 05/18/2013904 FAX #: [phone] Reason: SOB EXAMS: CPT CODE: [id number] XR CHEST 1 V 37471 REASON FOR EX AM: Shortness of breath [...] MD; Yudith Eastman MD Technologist: ROE GARZA [facility] Date/Time/By: 05/18/2013 (1012) : By: [facility] PAGE 1 Signed Report FAX: Mikhail Bender MD [phone] [place]: St: [facility]: Yudith Crenshaw [phone] Name: GUERRERO MURRIETA [facility] : 1960 Age/S: 52/F [address] [facility] Unit #: [id number] c: [place], [place]: [place] [address] Acct: [id number] Dis Date: Status: [facility] PHONE #: [phone] Exam Date: 05/18/2013904 FAX #: [phone] Reason: SOB EXAMS: CPT CODE: [id number] XR CHEST 1 V 64827 <Continued> Orig Print D/T: S: 05/18/2013 (2060) PAGE 2 Signed Report- MRI BRAIN W WO [id number] 13:45:00 FAX: Mikhail Bender MD [phone] [place]: St: [facility] FAX: Alfred Yudith Choi [phone] Name: GUERRERO MURRIETA [facility] : 1960 Age/S: 52/F [address] [facility] Unit #: [id number] Loc: [place], [place]: [place] [address] Acct: [id number] Dis Date: Status: K PHONE #: [phone] Exam Date: 05/15/2013 0951 FAX #: [phone] Reason: ANISOCORIA DIPLOPIS EXAMS: CPT CODE: [id number] MRI BRAIN W WO CONT 30204 CLINICAL HISTORY: Anisocoria, diplopia MRI brain ,with [...] be symmetric. Appropriate flow-void occurs in the havasupai of [place]. No evidence of hemorrhage seen. [...] Signed Report (CONTINUED) FAX: Mikhail Bender MD [phone] [place]: St: [facility] FAX: Yudith Crenshaw [phone] Name: GUERRERO MURRIETA [facility] : 1960 Age/S: 52/F [address] [facility] Unit #: [id number] Loc: [place], [place]: [place] [address] Acct: [id number] Dis Date: Status: [facility] PHONE #: [phone] Exam Date: 05/15/2013 0951 FAX #: [phone] Reason: ANISOCORIA DIPLOPIS EXAMS: CPT CODE: [id number] MRI BRAIN W WO CONT 59051 &lt ;Continued> orbit with hypoplastic right maxillary sinus could support sick sinus syndrome. No current obstruction is seen. at 1345 Reported and signed by: Zoran Fuller M.D. CC: Mikhail Lamb MD; Yudith Eastman MD Technologist: MIO HSU; ELVIN RAMIREZ Trnscrd Date/Time/By: 05/15/2013 (5332) : By: [facility]athon[facility] PAGE 2 Signed Report FAX: Mikhail Bender MD [phone] [place]: St:[facility] FAX: Yudith Crenshaw [phone] Name: GUERRERO MURRIETA [facility] : 1960 Age/S: 52/F [address] [facility] [employer] Unit #: [id number] Loc: [place], [place]: [place] [address] Acct: [id number] Dis Date: Status: UNK PHONE #: [phone] Exam Date: 05/15/2013 0951 FAX #: [phone] Reason: ANISOCORIA DIPLOPIS EXAMS: CPT CODE: [id number] MRI BRAIN W WO CONT 10191 <Continued> Orig Print D/T: S: 05/15/2013 (2843) PAGE 3 Signed Report- CT CHEST W/O CONTRAST 2013-05-14 21:40:00 FAX: Mikhail Bender MD [phone] [place]: St: [facility] FAX: Yudith Crenshaw [phone] Name: GUERRERO MURRIETA [facility] : 1960 Age/S: 52/F [address] [facility] Unit: [id number] Loc: [place], [place]: [place] [address] Acct: [id number] Dis Date: Status: UNK PHONE #: [phone] Exam Date: 05/14/20131953 FAX #: [phone] Reason: SOB EXAMS: CPT CODE: [id number] CT CHEST W/O CONTRAST 46250 Reason for ex am, shortness of breath, [...] PAGE 1 Signed Report- XR CHEST 2 [id number] 17:37:00 FAX: Yudith Crenshaw [phone] [place]: St: UN Name: GUERRERO MURRIETA [facility] : 1960 Age/S: 52/F [address] [facility] [employer] Unit#: [id number] Loc: [place], [place]: [place] [address] Acct: [id number] Dis Date: Status: UNK PHONE #: [phone] Exam Date: 05/14/2013 1548 FAX #: [phone] Reason: COPD PNEUMONIA EXAMS: CPT CODE: [id number] XR CHEST 2 V 61814 CHEST, 2 VIEWS HISTORY: COPD PNEUMONIA COMPARISON: Chest x- ray 05/12/2013 FINDINGS: The lungs are hyperexpanded. There are bilateral diffuse interstitial markings. No significant pleural effusions. The cardiomediastinal contours are stable. No acute bone abnormality. IMPRESSION: 1.Diffuse interstitial markings likely represent interstitial pneumonia or other interstitial disease. Followup recommended. 2. Findings compatible clinical diagnosis of COPD. at 8259 Reported and signed by: Gonzalo Hall M.D. CC: Yudith Eastman MD Technologist: PEÑA SMITH Trnscrd Date/Time/By: 05/14/2013 (9189) : By: [email or web address] PAGE 1 Signed Report FAX: Yudith Crenshaw [phone] [place]: St: [facility] Name: GUERRERO MURRIETA [facility] : 1960 Age/S: 52/F [address] [facility] [employer] center[facility] #: [id number] Loc: [place], [place] Phys: Мар[place] [address] Acct: [id number] Dis Date: Status: [facility] PHONE #: [phone] Exam Date: 05/14/2013 1548 FAX #: [phone] Reason: COPD PNEUMONIA EXAMS: CPT CODE: [id number] XR CHEST 2 V 02269 <Continued> Orig Print D/T: S: 05/14/2013 (5233) PAGE 2 Signed Report- XR CHEST 1 [id number] 16:06:00 FAX: Melida Borges [phone] [place]: St: K Name: GUERRERO MURRIETA [facility] : 1960 Age/S: 52/F [address] [facility] Unit#: [id number] Loc: [place], [place]: [place] [address] Acct: [id number] Dis Date: Status: [facility] PHONE #: [phone] Exam Date: 05/12/2013 1547 FAX #: [phone] Reason: copd/cough, shortness of breath EXAMS: CPT CODE: [id number] XR CHEST 1 V 36180 REASON FOR EXAM: Cough, COPD, shortness of breath COMPARISON: October 18, 2012. Chest, single view portable The lungs are hyperinflated consistent with COPD. More but no infiltrates are appreciated focally. Heart size is intact.. No effusion or pneumothorax can be seen. Osseous structures appear to be intact. IMPRESSION: COPD changes. Interstitial patterncould indicate interstitial pneumonia/ disease or non-cardiogenic edema. at 6439 Reported and signed by: Zoran Fuller M.D. CC: Melida Singh Technologist: LEXI HOLCOMB Trnscrd Date/Time/By: 05/12/2013 (2651) : By: Malik PAGE 1 Signed Report FAX: Melida Borges [phone] [place]: St: UNK ------ Name: GUERRERO MURRIETA [facility] : 1960Age/S: 52/F [address] [facility] Unit #: [id number] Loc: [place], [place]: [place] [address] Acct: [id number] Dis Date: Status: UNK PHONE #:[phone] Exam Date: 05/12/2013 1547 FAX #: [phone] Reason: copd/cough, shortness of breath EXAMS: CPT CODE: [id number] XR CHEST 1 V 54637 <Continued> Orig Print D/T: S: 05/12/2013 (8095) PAGE 2 Signed Report- CT ABD PELVIS W/[id number] 17:45:00 FAX: Bossman Nassar MD [place]: [facility]: UNK Name: GUERRERO MURRIETA [facility] : 1960 Age/S: 51/F [address] Unit: [id number] Loc: [place], [place]: [place] [address] Acct: [id number] Dis Date: Status: UNK PHONE #: [phone] Exam Date: 12/20/2012 1729 FAX #: [phone] Reason: generalized abd pain EXAMS: CPT CODE: [id number] CT ABD PELVIS W/CONT 36398 HISTORY: Generalized abdominal pain. CT abdomen contrast- [...] Signed Report (CONTINUED) FAX: Bossman Nassar MD [place]: St: [facility] Name: GUERRERO MURRIETA [facility] : 1960 Age/S: 51/F [address] Unit: [id number] Loc: [place], [place]: [place] [address] Acct: [id number] Dis Date: Status: [facility] PHONE #: [phone] Exam Date: 12/20/2012 1729 FAX #: Reason: generalized abd pain EXAMS: CPT CODE: [id number] CT ABD PELVIS W/CONT 61270 <Continued> CONCLUSION: No acute abnormality in the deep pelvis. Hysterectomy. Sigmoid diverticulosis without obvious active disease. Limited bowel loop assessment however. at 2525 Reported and signed by: RobertC. Alina M.D. CC: Bossman Nassar MD Technologist: SILVANO WRIGHT Trnscrd Dt/Tm: 12/20/2012 (0828) [email or web address] Orig Print D/T: S: 12/20/2012 (8143 PAGE 2 Signed Report- XR CHEST 2 [id number] 14:58:00 FAX: Bossman Nassar MD [place]: St: [facility] Name: GUERRERO MURRIETA [facility] : 1960 Age/S: 51/F [address] [facility] [employer] Unit#: [id number] Loc: [place], [place]: [place] [address] Acct: [id number] Dis Date: Status: [facility] PHONE #: [phone] Exam Date: 10/18/2012 1416 FAX #: [phone] Reason: cough, fever EXAMS: CPT CODE: [id number] XR CHEST 2 V 57429 CHEST, 2 VIEWS HISTORY: cough, fever FINDINGS: Since 09/18/12, minimal atelectasis is noted in the left lower lobe. The previously seen faint density in the lung base has resolved. The lungs are otherwise clear. The heart size is normal. Minimal degenerative changes affect the thoracic spine. IMPRESSION: Aside from minimal atelectasis, no evidence of acute airspacedisease. at 6053 Reported and signed by: Anita Gonzales M.D. CC: Bossman Nassar MD Technologist: ANITA Ramirez Date/Time/By: 10/18/2012 (9043) : By: [email or web address] PAGE 1 Signed Report FAX: Bossman Belcher MD [place]: St: UNK Name: GUERRERO MURRIETA [facility] : 1960 Age/S: 51/F [address] [facility] Unit #: [id number] Loc: [place], [place]: [place] [address] Acct: [id number] Dis Date: Status: UNK PHONE #: [phone] Exam Date: 10/18/2012 1416 FAX#: [phone] Reason: cough, fever EXAMS: CPT CODE: [id number] XR CHEST 2 V 42505 <Continued> Orig Print D/T: S: 10/18/2012 (1502) PAGE 2 Signed Report- XR CHEST 1 [id number] 13:03:00 [place]: St: UNK Name: GUERRERO MURRIETA [facility] : 1960 Age/S: 51/F [address] [employer] Unit#: [id number] Loc: [place], [place]: [place] [address] Acct: [id number] Dis Date: Status: [facility] PHONE #: [phone] Exam Date: 09/18/2012 1234 FAX #: [phone] Reason: CHEST PAIN EXAMS: CPT CODE: [id number] XR CHEST 1 V 56975 CHEST, 1 VIEW HISTORY: chest pain. FINDINGS: [...] M.D. CC: Technologist: ADELA Ramirez Date/Time/By: 09/18/2012 (8792) : By: [email or web address] PAGE 1 Signed Report [place]: St: [facility] Name: GUERRERO MURRIETA [facility] : 1960 Age/S: 51/F [address] [facility] [employer] Unit #: [id number] Loc: [place], [place]: [place] [address] Acct: [id number] Dis Date: Status: [facility] PHONE #: [phone] Exam Date: 09/18/2012 1234 FAX #: [phone] Reason: CHEST PAIN EXAMS: CPT CODE: [id number] XR CHEST 1 V 70256 <Continued> Orig Print D/T: S: 09/18/2012 (8514) PAGE 2 Signed Report- CT HEAD/BRAIN W/O [id number] 11:38:00 [place]: St: [facility] Name: GUERRERO MURRIETA [facility] : 1960 Age/S: 51/F [address] [facility] [address] [facility] Unit: [id number] Loc: [place], [place]: [place] [id number] Acct: [id number] Dis Date: Status: [facility] PHONE #: [phone] Exam Date: 09/18/2012 1135 FAX #: [phone] Reason: dizzy EXAMS: CPT CODE: [id number] CT HEAD/BRAIN W/O CONT 33516 HISTORY: Dizziness. TECHNIQUE: Axial noncontrastCT images of [...] IMPRESSION: No acute intracranial findings . at 1130 Reported and signed by: Colt Sorensen CC: Technologist: ARIEL KERR Trnscrd Dt/Tm: 09/18/2012 (1248) Chris Orig Print D/T: S: 09/18/2012 (7043 PAGE 1 Signed Report
[2021-12-05 06:13] LABS: Absolute Lymphocytes (CBC) 0.9 K/uL (0.7-4.9); Hematocrit 43.4 % (36.0-45.0); Lymphocytes % 7.3 % (15.3-44.8); MPV 8.9 fL (7.6-11.3)
[2021-12-05 06:16] LABS: Arterial Blood Carboxyhemoglob 3.1 % (0-1.5); Blood Gas Oxyhemoglobin 93.8 % (94-97); Blood O2 Saturation 97.8 % (92-98.5)
[2021-12-05 06:19] LABS: Protime INR 0.92
[2021-12-05 06:32] LABS: ALT/SGPT 20 U/L (12-78); AST/SGOT 9 U/L (15-37); Albumin 3.2 g/dL (3.4-5.0); Alkaline Phosphatase 71 U/L (45-117); BUN Blood Urea Nitrogen 12 mg/dL (7-18); Bicarbonate 32 mmol/L (21-32); Bilirubin Direct < 0.1 mg/dL (0-0.2); Bilirubin Total 0.3 mg/dL (0.2-1.0); Glucose Level 214 mg/dL (74-106); Magnesium 1.9 mg/dL (1.8-2.4); NT PRO-BNP 1892 pg/mL (<125); Potassium 3.9 mmol/L (3.5-5.1); Protein, Total 7.8 g/dL (6.4-8.2); Sodium Level 138 mmol/L (136-145); Troponin (Emerg Dept Use Only) 0.14 ng/mL (0.0-0.045)
--- NOTE | 2021-12-05 06:56 | ER ---
Nurse's Notes [facility] Name: Lucia Arias Age: 60 yrs Sex: Female : 1960 Arrival Date: 12/05/2021 Time: 05:49 Bed 4 Private MD: Diagnosis: COPD/ Chronic obstructive pulmonary disease with (acute) exacerbation;Acute respiratory failure with hypoxia;Shortness of breath Presentation: 12/05 05:50 Chief complaint: EMS states: SOB starting tonight, 2 rounds of albuterol given at [facility], one round by EMS with 125 mg solumedrol IVP. Pt reports cough x4 days. Hx COPD, pulmonary edema, angina, DM, GERD. Tachypenic at 30-40 on 8L simple mask. Coronavirus screen: Vaccine status: Patient reports receiving the 2nd dose of the covid vaccine. Ebola Screen: Patient negative for fever greater than or equal to 101.5 degrees Fahrenheit, and additional compatible Ebola Virus Disease symptoms. Initial Sepsis Screen: Does the patient meet any 2 criteria? RR > 20 per min. HR > 90 bpm. Yes Does the patient have a suspected source of infection? Yes: Productive cough/pneumonia If YES to both, name of provider notified: Jose Simms MD. Risk Assessment: Do you want to hurt yourself or someone else? Patient reports no desire to harm self or others. Onset of symptoms was December 05, 2021. 05:50 Method Of Arrival: EMS: [facility] 05:50 Acuity: LATONYA 2 Triage Assessment: 06:04 General: Appears distressed, Behavior is restless. 06:04 Neuro: Level of Consciousness is awake, alert, obeys commands. Cardiovascular: Heart mk tones S1 S2 Pulses are 1+ in right radial artery and left radial artery. Respiratory: Airway is patent Trachea midline Respiratory effort is with retractions. 06:21 Pain: Denies pain. Historical: - Allergies: 06:08 Codeine; 06:08 PENICILLINS; 06:08 Demerol; 06:08 Sulfa (Sulfonamide Antibiotics); - Home Meds: 06:08 aspirin 81 mg oral TbEC once daily [Active]; benztropine 1 mg oral tab [Active]; buspirone 5 mg Oral tab 1 tab 3 times per day [Active]; azithromycin 250 mg oral cap 250 mg daily [Active]; Depakote 125 mg Oral TbEC 1 tab once daily [Active]; ergocalciferol (vitamin D2) 1,250 mcg (50,000 unit) oral cap daily [Active]; gabapentin 100 mg oral cap 3 caps 3 times per day [Active]; Lantus U-100 Insulin 100 unit/mL Sub-Q crtg daily [Active]; prednisone 10 mg Oral DsPk 10 mg daily [Active]; Tradjenta 5 mg oral tab 1 tab once daily [Active]; cjraqayk-aeujzlvqckvy-hwmfppe 600-50-300 mg oral tab 1 tab once daily [Active]; Zoloft 100 mg oral tab 1 tab once daily [Active]; - PMHx: 06:08 HIV; CAD; GERD; pulmonary edema; Angina; COPD; mk - Immunization history:: Adult Immunizations up to date, . - Social history:: Smoking status: Patient reports the use of cigarette tobacco products, smokes one-half pack cigarettes per day. Screenin:03 Abuse screen: Denies threats or abuse. Nutritional screening: No deficits noted. Tuberculosis screening: No symptoms or risk factors identified. Fall Risk Fall in past 12 months (25 points). Secondary diagnosis (15 points) impaired mobility, IV access (20 points). Ambulatory Aid- None/Bed Rest/Nurse Assist (0 pts). Gait- Weak (10 pts.). Mental Status- Oriented to own ability (0 pts). Total Tello Fall Scale indicates High Risk Score (45 or more points). Fall prevention measures have been instituted. Side Rails Up X 2 Placed Close to Nursing Station As available patient and family educated on Fall Prevention Program and Strategies. Assessment: 06:21 Reassessment: Patient states symptoms have improved. Neuro: Level of Consciousness is mk awake, alert, obeys commands, Oriented to person, place, time, situation, [employer] are equal bilaterally Moves all extremities. Facial symmetry appears normal. Cardiovascular: Heart tones S1 S2 Pulses are 2+ in right radial artery, right dorsalis pedis artery, left radial artery and left dorsalis pedis artery Rhythm is sinus tachycardia. Respiratory: Airway is patent Trachea midline Respiratory effort is labored, Respiratory pattern is regular, tachypnea breathing slightly less tachypneic and labored s/p BIPAP Breath sounds with crackles bilaterally. GI: Abdomen is flat, non-distended. : No signs and/or symptoms were reported regarding the genitourinary system. Derm: Skin is intact, is fragile, Skin is dry, Skin temperature is warm. Musculoskeletal: Circulation, motion, and sensation intact. Capillary refill < 3 seconds, Range of motion: intact in all extremities. 07:00 Reassessment: RECD REPORT FROM XANDER RN . 60YO WF P/W SOB. PT ADMIT IN PROCESS. bp 09:00 Reassessment: PT ER HOLD, SEE [facility]. bp Vital Signs: 05:50 BP 111 / 75; Pulse 134; Resp 32; Temp 99.5(O); Pulse Ox 89% on 8% Simple Mask; Weight bp 90.72 kg; Height 5 ft. 2 in. (157.48 cm); 06:05 BP 130 / 66; Pulse 128; Resp 40; Pulse Ox 98% on BiPAP; mk 06:35 BP 120 / 77; Pulse 122; Resp 30; Pulse Ox 99% on BiPAP; mk 07:28 BP 123 / 79; Pulse 122; Resp 33; Pulse Ox 98% on BiPAP; tw2 09:30 BP 130 / 101; Pulse 108; Resp 25; Pulse Ox 90% ; bp 11:30 BP 131 / 72; Pulse 99; Resp 21; Pulse Ox 95% ; bp 05:50 Body Mass Index 36.58 (90.72 kg, 157.48 cm) bp Moreland Coma Score: 06:35 Eye Response: spontaneous(4). Verbal Response: oriented(5). Motor Response: obeys commands(6). Total: 15. ED Course: 05:49 Patient arrived in ED. mk 05:49 Concetta Yates, RN is Primary Nurse. mk 05:50 Jose Simms MD is Attending Physician. kdr 05:56 Triage completed. mk 06:02 CBC with Diff Sent. mk 06:02 LFT's Sent. mk 06:02 Magnesium Sent. mk 06:02 NT PRO-BNP Sent. mk 06:02 PT-INR Sent. mk 06:02 Troponin (emerg Dept Use Only) Sent. mk 06:02 Basic Metabolic Panel Sent. mk 06:02 Basic Metabolic Panel Sent. mk 06:04 No provider procedures requiring assistance completed. Maintain EMS IV. Dressing mk intact. Good blood return noted. Site clean \T\ dry. Gauge \T\ site: 20 G RAC. 06:04 Arm band placed on. EKG completed in triage. Results shown to . mk 06:24 Patient has correct armband on for positive identification. Allergy band placed. Fall mk risk band placed. Placed in gown. Bed in low position. Call light in reach. Side rails up X 1. quality assurance monitor on. Pulse ox on. NIBP on. 06:31 Basic Metabolic Panel Sent. mk 06:33 BIPAP Sent. mk 06:55 Ge Mixon DO is Hospitalizing Provider. kdr 07:06 XRAY Chest (1 view) In Process Unspecified. EDMS 07:08 Report given to Contreras. mk 12:26 Patient admitted, IV remains in place. bp Administered Medications: 05:56 Drug: Xopenex (levalbuterol) (3) 1.25 mg Route: Inhalation; mk 07:06 Follow up: Response: No adverse reaction mk Outcome: 06:55 Decision to Hospitalize by Provider. kdr 09:30 Admitted to ER Hold. Please see [facility] for further documentation. bp 09:30 Condition: stable 09:30 Instructed on the need for admit. 13:35 Patient left the ED. eb Signatures: Dispatcher [employer] EDMS Jose Simms MD MD kdr Candie Laughlin, RN RN tw2 Contreras Ferreira, RN RN bp Cielo Perez Concetta Yates, RN RN xander Corrections: (The following items were deleted from the chart) 06:07 05:50 Chief complaint: EMS states: SOB starting tonight, 2 rounds of albuterol given at nursing facility, one round by EMS with 125 mg solumedrol IVP 06:19 06:08 PMHx: neuropathy; [facility] 06: 06:08 PMHx: Bipolar disorder; [facility] 06: 06:08 PMHx: Chronic pain; [facility] 06: 06:08 PMHx: Depression; [facility] 06: 06:08 PMHx: Schizophrenia; [facility] 06: 06:08 PMHx: Anxiety; [facility] 06: 06:08 PMHx: LACK OF COORDINATION; [facility] 06: 06:08 PMHx: Difficulty walking; [facility] 06: 06:08 PMHx: Diabetes - IDDM; [facility] 06: 06:08 PMHx: UTI; [facility] 06: 06:08 PMHx: Cellulitis; [facility] : 06:08 PMHx: Hyperlipidemia; [facility] : 06:08 PMHx: Pneumonia; [facility] 06: 06:08 PMHx: ATHEROSCLEROSIS; [facility] 06: 06:08 PMHx: MUSCLE WEAKNESS; [facility] 06: 06:08 PMHx: vitamin d deficiency; [facility] 12:27 05:50 BP 111 / 75; Pulse 134bpm; Resp 32bpm; Pulse Ox 89% 02 8% Simple Mask; Temp 99.5F bp Oral;
--- NOTE | 2021-12-05 06:56 | EDPHYS ---
Physician Documentation [facility] Name: Lucia Arias Age: 60 yrs Sex: Female : 1960 Arrival Date: 12/05/2021 Time: 05:49 Bed 4 Private MD: ED Physician Jose Simms HPI: 12/05 05:51 This 60 yrs old Female presents to ER via Unassigned with complaints of Shortness of kdr breath, COPD exacerbation. 05:51 The patient has shortness of breath at rest. Onset: The symptoms/episode began/occurred kdr gradually, 3 day(s) ago. Duration: The symptoms are continuous, and are steadily getting worse. The patient's shortness of breath is aggravated by coughing, exertion, light activity, talking. Associated signs and symptoms: Pertinent positives: chest pain, productive cough, Pertinent negatives: loss of consciousness, nausea, numbness in extremities, visual changes, vomiting. Severity of symptoms: At their worst the symptoms were moderate incapacitating in the emergency department the symptoms are unchanged. The patient has experienced similar episodes in the past, multiple times. It is unknown whether or not the patient has recently seen a physician. [facility] after she is become progressively worse over the last 3 days. She had been given two nebulizer treatments by the [facility] and one by EMS prior to arrival. EMS had also given her Solu-Medrol 125 mg IV. Historical: - Allergies: 06:08 Codeine; mk 06:08 PENICILLINS; mk 06:08 Demerol; 06:08 Sulfa (Sulfonamide Antibiotics); - Home Meds: 06:08 aspirin 81 mg oral TbEC once daily [Active]; benztropine 1 mg oral tab [Active]; buspirone 5 mg Oral tab 1 tab 3 times per day [Active]; azithromycin 250 mg oral cap 250 mg daily [Active]; Depakote 125 mg Oral TbEC 1 tab once daily [Active]; ergocalciferol (vitamin D2) 1,250 mcg (50,000 unit) oral cap daily [Active]; gabapentin 100 mg oral cap 3 caps 3 times per day [Active]; Lantus U-100 Insulin 100 unit/mL Sub-Q crtg daily [Active]; prednisone 10 mg Oral DsPk 10 mg daily [Active]; Tradjenta 5 mg oral tab 1 tab once daily [Active]; ranxebju-lyxfujfnxpgy-ghnjkxv 600-50-300 mg oral tab 1 tab once daily [Active]; Zoloft 100 mg oral tab 1 tab once daily [Active]; - PMHx: 06:08 HIV; CAD; GERD; pulmonary edema; Angina; COPD; mk - Immunization history:: Adult Immunizations up to date, . - Social history:: Smoking status: Patient reports the use of cigarette tobacco products, smokes one-half pack cigarettes per day. ROS: 05:51 Constitutional: Negative for fever, chills, and weight loss, Eyes: Negative for injury, kdr pain, redness, and discharge, ENT: Negative for injury, pain, and discharge, Neck: Negative for injury, pain, and swelling, Cardiovascular: Negative for chest pain, palpitations, and edema, Abdomen/GI: Negative for abdominal pain, nausea, vomiting, diarrhea, and constipation, Back: Negative for injury and pain, : Negative for injury, bleeding, discharge, and swelling, MS/Extremity: Negative for injury and deformity, Skin: Negative for injury, rash, and discoloration, Neuro: Negative for headache, weakness, numbness, tingling, and seizure activity. Psych: Negative for depression, anxiety, suicide ideation, homicidal ideation, and hallucinations, Allergy/Immunology: Negative for hives, rash, and allergies, Endocrine: Negative for neck swelling, polydipsia, polyuria, polyphagia, and marked weight changes, Hematologic/Lymphatic: Negative for swollen nodes, abnormal bleeding, and unusual bruising. 05:51 Respiratory: Positive for cough, with yellow sputum, dyspnea on exertion, shortness of breath, wheezing, inspiratory, Negative for hemoptysis, orthopnea, pleurisy. Exam: 05:51 Constitutional: This is a well developed, well nourished patient who is awake, alert, kdr and in no acute distress. Head/Face: Normocephalic, atraumatic. Eyes: Pupils equal round and reactive to light, extra-ocular motions intact. Lids and lashes normal. Conjunctiva and sclera are non-icteric and not injected. Cornea within normal limits. Periorbital areas with no swelling, redness, or edema. Neck: Trachea midline, no thyromegaly or masses palpated, and no cervical lymphadenopathy. Supple, full range of motion without nuchal rigidity, or vertebral point tenderness. No Meningismus. Chest/axilla: Normal chest wall appearance and motion. Nontender with no deformity. No lesions are appreciated. Cardiovascular: Regular rate and rhythm with a normal S1 and S2. No gallops, murmurs, or rubs. Normal PMI, no JVD. No pulse deficits. Abdomen/GI: Soft, non-tender, with normal bowel sounds. No distension or tympany. No guarding or rebound. No evidence of tenderness throughout. Back: No spinal tenderness. No costovertebral tenderness. Full range of motion. Skin: Warm, dry with normal turgor. Normal color with no rashes, no lesions, and no evidence of cellulitis. MS/ Extremity: Pulses equal, no cyanosis. Neurovascular intact. Full, normal range of motion. Neuro: Awake and alert, GCS 15, oriented to person, place, time, and situation. Cranial nerves II-XII grossly intact. Motor strength 5/5 in all extremities. Sensory grossly intact. Cerebellar exam normal. Normal gait. Psych: Awake, alert, with orientation to person, place and time. Behavior, mood, and affect are within normal limits. 05:51 Respiratory: moderate respiratory distress is noted, Respirations: labored breathing, that is moderate, Breath sounds: wheezing: inspiratory expiratory that is moderate, is heard diffusely. Vital Signs: 05:50 BP 111 / 75; Pulse 134; Resp 32; Temp 99.5(O); Pulse Ox 89% on 8% Simple Mask; Weight bp 90.72 kg; Height 5 ft. 2 in. (157.48 cm); 06:05 BP 130 / 66; Pulse 128; Resp 40; Pulse Ox 98% on BiPAP; mk 06:35 BP 120 / 77; Pulse 122; Resp 30; Pulse Ox 99% on BiPAP; mk 07:28 BP 123 / 79; Pulse 122; Resp 33; Pulse Ox 98% on BiPAP; tw2 09:30 BP 130 / 101; Pulse 108; Resp 25; Pulse Ox 90% ; bp 11:30 BP 131 / 72; Pulse 99; Resp 21; Pulse Ox 95% ; bp 05:50 Body Mass Index 36.58 (90.72 kg, 157.48 cm) bp Grant Coma Score: 06:35 Eye Response: spontaneous(4). Verbal Response: oriented(5). Motor Response: obeys mk commands(6). Total: 15. MDM: 05:51 Data reviewed: vital signs, nurses notes, lab test result(s), EKG, radiologic studies. kdr Counseling: I had a detailed discussion with the patient and/or guardian regarding: the historical points, exam findings, and any diagnostic results supporting the discharge/admit diagnosis, lab results, radiology results, the need for further work-up and treatment in the hospital. 06:55 Patient medically screened. kdr 12/05 05:51 Order name: Basic Metabolic Panel kdr 12/05 05:51 Order name: CBC with Diff kdr 12/05 05:51 Order name: LFT's; Complete Time: 06:48 kdr 12/05 05:51 Order name: Magnesium; Complete Time: 06:48 kdr 12/05 05:51 Order name: NT PRO-BNP; Complete Time: 06:48 kdr 12/05 05:51 Order name: PT-INR; Complete Time: 06:48 kdr 12/05 05:51 Order name: Troponin (emerg Dept Use Only); Complete Time: 06:48 kdr 12/05 05:51 Order name: ABG; Complete Time: 06:48 kdr 12/05 05:51 Order name: Basic Metabolic Panel; Complete Time: 06:48 EDKS 12/05 06:58 Order name: COVID-19 SARS RT PCR (Document "Date of Onset" if Symptomatic) kdr 12/05 08:43 Order name: CBC Smear Scan EDKS 12/05 12:05 Order name: Glucose, Ancillary Testing EDKS 12/05 12:35 Order name: Procalcitonin EDKS 12/05 12:52 Order name: Creatine Phosphokinase EDKS 12/05 05:51 Order name: XRAY Chest (1 view) kdr 12/05 05:51 Order name: EKG; Complete Time: 05:52 kdr 12/05 05:51 Order name: Cardiac monitoring; Complete Time: 06:02 kdr 12/05 05:51 Order name: EKG - Nurse/Tech; Complete Time: 06:02 kdr 12/05 05:51 Order name: IV Saline Lock; Complete Time: 06:02 kdr 12/05 05:51 Order name: Labs collected and sent; Complete Time: 06:02 kdr 12/05 05:51 Order name: O2 Per Protocol; Complete Time: 06:02 kdr 12/05 05:51 Order name: O2 Sat Monitoring; Complete Time: 06:02 kdr 12/05 05:51 Order name: BIPAP kdr 12/05 12:52 Order name: CKMB Creatine Kinase MB EDMS 12/05 12:52 Order name: Troponin I EDMS Administered Medications: 05:56 Drug: Xopenex (levalbuterol) (3) 1.25 mg Route: Inhalation; mk 07:06 Follow up: Response: No adverse reaction mk Disposition Summary: 12/05/21 06:55 Hospitalization Ordered Hospitalization Status: Inpatient Admission kdr Provider: Ge Mixon Condition: Fair kdr Problem: an acute exacerbation kdr Symptoms: have improved kdr Bed/Room Type: Standard kdr Location: Telemetry/MedSurg (Inpatient)(12/05/21 11:40) eb Room Assignment: [facility](12/05/21 11:40) eb Diagnosis - COPD/ Chronic obstructive pulmonary disease with (acute) exacerbation kdr - Acute respiratory failure with hypoxia kdr - Shortness of breath kdr Forms: - Medication Reconciliation Form kdr - SBAR form kdr Signatures: Dispatcher [employer] EDMS Jose Simms MD MD kdr Contreras Ferreira RN RN bp Botello, Elizabeth eb Kotarski, Madeline, RN RN xander Corrections: (The following items were deleted from the chart) 06:19 06:08 PMHx: neuropathy; [facility] 06:19 06:08 PMHx: Bipolar disorder; [facility] 06:19 06:08 PMHx: Chronic pain; [facility] 06:19 06:08 PMHx: Depression; [facility] 06:19 06:08 PMHx: Schizophrenia; [facility] 06:19 06:08 PMHx: Anxiety; [facility] 06:19 06:08 PMHx: LACK OF COORDINATION; [facility] 06:19 06:08 PMHx: Difficulty walking; [facility] 06:19 06:08 PMHx: Diabetes - IDDM; [facility] 06:19 06:08 PMHx: UTI; [facility] 06:19 06:08 PMHx: Cellulitis; [facility] 06:19 06:08 PMHx: Hyperlipidemia; [facility] 06:19 06:08 PMHx: Pneumonia; [facility] 06:19 06:08 PMHx: ATHEROSCLEROSIS; [facility] 06: 06:08 PMHx: MUSCLE WEAKNESS; [facility] : 06:08 PMHx: vitamin d deficiency; [facility] 06:55 Telemetry/MedSurg (observation) kdr bp 06:55 kdr bp 11:40 10:58 [facility] ER HOLD bp eb 11:40 10:58 ERHOLD- bp eb
--- NOTE | 2021-12-05 07:43 | P.HP ---
Certification for Inpatient Patient admitted to: Inpatient With expected LOS: >2 Midnights Patient will require the following post-hospital care: Other (halfway) Practitioner: I am a practitioner with admitting privileges, knowledge of patient current condition, hospital course, and medical plan of care. Services: Services provided to patient in accordance with Admission requirements found in Title 42 Section 412.3 of the Code of Federal Regulations Patient History Date of Service: 12/05/21 Primary Care Provider: [facility] Reason for admission: Shortness of breath History of Present Illness: 60-year-old female with history of COPD on chronic steroid, HIV, diabetes mellitus insulin-dependent, bipolar disorder, GERD, and diabetic neuropathy. Symptoms have been worsening. Some cough noted. She denies any fever. Patient presented with increasing shortness of breath. She denies any chest pain, nausea or vomiting. Symptoms became worse. She was sent from the assisted to the ER for further evaluation. In the ER patient was evaluated. On lab ABG showed pH of 7.33 with a CO2 of 62. Troponin 0 0.14 with a BNP 1892. White count 12.8, hemoglobin 14. Platelet count 158. Sodium 138, potassium 3.9. BUN of 12, creatinine 0.8 with a GFR of 61. Glucose 214. Chest x-ray showed COPD pattern. Recent results from assisted show recent Covid test negative. Repeat Covid test pending. Patient was placed on BiPAP. Symptoms have improved. Patient remained stable on BiPAP. Patient admitted for further evaluation and treatment. Allergies codeine Allergy (Intermediate, Verified 09/21/19 23:29) Shortness of breath Penicillins Allergy (Intermediate, Verified 09/21/19 23:29) Shortness of breath Home medications list reviewed: Yes Home Medications: Abacavir/Dolutegravir/Lamivudi [Triumeq 600-50-300 mg Tablet] 1 tab PO DAILY 01/16/19 Aspirin [Aspirin EC 325 MG] 325 mg PO DAILY 01/16/19 Atorvastatin Calcium [Lipitor] 40 mg PO BEDTIME 01/16/19 Cholecalciferol (Vitamin D3) [Vitamin D3] 2,000 unit PO DAILY 01/16/19 OXcarbazepine [Trileptal] 150 mg PO BID 01/16/19 Gabapentin 300 mg PO TID 03/09/19 Insulin Glargine,Hum.rec.anlog [Lantus] 32 units SQ BEDTIME 03/09/19 Insulin Lispro [Humalog] See Protocol SQ SEECOM 09/11/19 Meropenem [Merrem 1 GM/100 ML NS IVPB] 1 gm IV Q8HR #1 bag 09/14/19 Umeclidinium Milnor [Incruse Ellipta] 1 puff IH DAILY 09/21/19 0.9 % Sodium Chloride [Saline Flush] 10 ml IV Q8H 09/22/19 Fluticasone Propion/Salmeterol [Wixela 250-50 Inhub] 1 puff IH BID 09/22/19 Tramadol HCl [Tramadol HCl ER] 300 mg PO DAILY 09/22/19 Benztropine Mesylate [Cogentin*] 1 mg PO DAILY #30 tab 09/25/19 Duloxetine HCl [Cymbalta] 90 mg PO DAILY #90 cap 09/25/19 Risperidone [Risperdal] 2 mg PO DAILY #60 tablet 09/25/19 - Past Medical/Surgical History Diabetic: Yes -: Bipolar disorder -: Schizophrenia -: HIV -: COPD on chronic steroid -: Chronic pain -: Hyperlipidemia -: Diabetes mellitus type 2 insulin-dependent -: History of recurrent UTI -: Diabetic neuropathy -: GERD -: Hysterectomy -: Appendectomy Psychosocial/ Personal History: Patient comes from the assisted. - Family History Father -: Lung disease, Diabetes, Cancer Notes: lung cancer Mother -: Lung disease, Cancer Notes: lung cancer - Social History Smoking Status: Unknown if ever smoked Alcohol use: No CD- Drugs: No Caffeine use: Yes Place of Residence: Residential Review of Systems General: As per HPI Eyes: Unremarkable ENT: Unremarkable Respiratory: Cough, Shortness of Breath, SOB with Excertion, As per HPI Cardiovascular: Unremarkable Gastrointestinal: Unremarkable Genitourinary: Unremarkable Musculoskeletal: Unremarkable Integumentary: Unremarkable Neurological: Unremarkable Lymphatics: Unremarkable Physical Examination - Studies Laboratory Data (last 24 hrs) 12/05/21 05:59: PT 10.6, INR 0.92 12/05/21 05:59: WBC 12.90 H, Hgb 14.4, Hct 43.4, Plt Count 158 12/05/21 05:59: Sodium 138, Potassium 3.9, BUN 12, Creatinine 0.94, Glucose 214 H, Magnesium 1.9, Total Bilirubin 0.3, AST 9 L, ALT 20, Alkaline Phosphatase 71 Assessment and Plan - Plan COVID: Pending Chest x-ray: Chest x-ray shows COPD pattern Physical Exam: GENERAL: The patient is a well-developed, well-nourished, in no apparent distr ess. Alert and oriented x3. VITAL SIGNS: Reviewed HEENT: Head is normocephalic and atraumatic. Extraocular muscles are intact. Pupils are equal, round, and reactive to light and accommodation. Nares appeared normal. Mouth is well hydrated and without lesions. Mucous membranes are moist. NECK: Supple. No carotid bruits. No lymphadenopathy or thyromegaly. LUNGS: Wheezing bilateral. Currently on BiPAP. HEART: Regular rate and rhythm, no appreciable gallops, rubs, murmurs or extra heart sounds ABDOMEN: Soft, nontender, and nondistended. Positive bowel sounds. No hepatosplenomegaly was noted. EXTREMITIES: Without any cyanosis, clubbing, rash, lesions or peripheral edema. NEUROLOGIC: The patient is oriented to person, place and time. Strength and sensation are grossly intact. Face is symmetric. SKIN: Normal color, turgor and temperature. No ulcerations or rashes noted. Impression: Dyspnea secondary to acute respiratory failure with hypoxia/hypercapnia related to COPD exacerbation on chronic steroid Diabetes mellitus type 2 insulin-dependent with hyperglycemia Elevated troponin likely ischemic demand Bipolar disorder with schizophrenia Diabetic neuropathy GERD Plan: Dyspnea secondary to acute respiratory failure with hypoxia/hypercapnia related to COPD exacerbation on chronic steroid: Patient admitted for further evaluation and treatment. Patient remains on BiPAP. Continue to wean off to maintain sats above 93%. halfway meds reviewed. Appears patient on chronic steroids. Continue Solu-Medrol for now. Will place on IV Levaquin to cover for possible infection. Continue Brovana, albuterol and Atrovent. Pulmonology consulted for further recommendation. Troponin elevated likely ischemic demand. Will consult cardiology for further evaluation. Continue monitor closely. Recheck chest x-ray tomorrow. Continue monitor lab. Electrolyte protocol in place. DVT prophylaxisLovenox in place. Spoke with son in detail concerning plan of care. Back to assisted at discharge. Diabetes mellitus type 2 insulin-dependent with hyperglycemia: We will check A1c. Continue Accu-Cheks and sliding scale. Will start basal insulinLantus 10 units subcu at night. Will monitor and adjust appropriately. Elevated troponin likely ischemic demand: We will monitor cardiac enzymes and telemetry. Cardiology consulted to further evaluate. Likely no need for intervention. Bipolar disorder with schizophrenia: Continue with medication including benztropine 1 mg daily, buspirone 5 mg 3 times a day, Depakote sprinkles 250 mg 3 times a day, melatonin 5 mg at bedtime, Zoloft 100 mg daily, and Risperdal 1 mg daily. Diabetic neuropathy: Continue with gabapentin 300 mg 3 times a day GERD: Continue Protonix 40 mg daily HIV: We will need to obtain assisted HIV medication to restart. Patient takesabacavir/dolugravir/lamivud 600/50/300 mg daily Code Status: Spoke with son. Patient full code. DVT prophylaxis: Lovenox Advanced Care Planning-30 minutes: Spoke with son. Patient will return back to the assisted at discharge. Discharge Plan: Residential Plan to discharge in: Greater than 2 days - Advance Directives Does patient have a Living Will: No Does patient have a Durable POA for Healthcare: Yes - Code Status/Comfort Care Code Status Assessed: Yes (Patient is full code) Time Spent Managing Pts Care (In Minutes): 55
[2021-12-05 08:42] LABS: Blood Morphology Comment NOT SEEN (NOT SEEN); Platelet Estimate ADEQ; White Blood Cell Scan OK (OK)
--- NOTE | 2021-12-05 10:24 | P.CNS ---
Date of Consult: 12/05/21 Reason for Consult: Respiratory failure Primary Care Provider: [facility] Chief Complaint: Shortness of breath History of Present Illness: Patient is 60 years of age with a history of COPD chronic steroid therapy HIV pa rabolic disorder mated with worsening dyspnea some cough sent home from the longterm shown to be hypoxic hypercarbic currently on BiPAP Allergies codeine Allergy (Intermediate, Verified 09/21/19 23:29) Shortness of breath Penicillins Allergy (Intermediate, Verified 09/21/19 23:29) Shortness of breath Home Medications: Abacavir/Dolutegravir/Lamivudi [Triumeq 600-50-300 mg Tablet] 1 tab PO DAILY 01/16/19 Cholecalciferol (Vitamin D3) [Vitamin D3] 2,000 unit PO DAILY 01/16/19 Gabapentin 300 mg PO TID 03/09/19 Benztropine Mesylate [Cogentin*] 1 mg PO DAILY #30 tab 09/25/19 Abacavir/Dolutegravir/Lamivudi [Triumeq 600-50-300 mg Tablet] 1 tab PO DAILY 12/06/21 Acetaminophen [Tylenol Extra Strength] 1 tab PO BID 12/06/21 Ascorbic Acid [Vitamin C] 1 cap PO DAILY 12/06/21 Aspirin 1 tab PO DAILY 12/06/21 Azithromycin Tab [Zithromax*] 1 tab PO DAILY 12/06/21 Buspirone HCl 1 tab PO TID 12/06/21 Divalproex Sodium [Depakote Sprinkle] 1 cap PO TID 12/06/21 Ergocalciferol (Vitamin D2) [Vitamin D2] 1 cap PO DAILY 12/06/21 Fluticasone/Salmeterol [Advair Hfa 115-21 Mcg Inhaler] 2 puff IH BID 12/06/21 Guaif/Dm [Robitussin Dm*] 15 ml PO Q6H 12/06/21 Insulin Glargine,Hum.rec.anlog [Lantus] 24 units SQ BEDTIME 12/06/21 Linagliptin [Tradjenta] 1 tab PO DAILY 12/06/21 Melatonin 1 tab PO BEDTIME 12/06/21 Mineral Oil/Petrolatum,White [Artificial Eye Lub 15-83% Oint] 1 gtt EACH EYE DAILY 12/06/21 Omeprazole 0.5 tab PO DAILY 12/06/21 Polyethylene Glycol 3350 [Miralax] 1 packet PO DAILY 12/06/21 Risperidone [Risperdal] 1 mg PO DAILY 12/06/21 Sertraline [Zoloft*] 1 tab PO DAILY 12/06/21 Tiotropium [Spiriva Handihaler*] 1 puff IH DAILY 12/06/21 Zinc 1 tab PO DAILY 12/06/21 glucagon HCL [Glucagon HCl] 1 mg IM SEECOM PRN 12/06/21 Albuterol Inhaler [Ventolin Inhaler*] 2 puff IH Q6H PRN #1 hfa.aer.ad 12/07/21 Albuterol Neb [Proventil 0.083% Neb Soln] 2.5 mg NEB [id number] PRN #60 amp 12/07/21 Benzonatate [Tessalon Perle*] 100 mg PO TID PRN #30 cap 12/07/21 Melatonin 5 mg PO BEDTIME #30 tablet 12/07/21 levoFLOXacin [Levaquin*] 500 mg PO DAILY #5 tab 12/07/21 predniSONE [Deltasone*] 10 mg PO BID #20 tab 12/07/21 - Past Medical/Surgical History Diabetic: Yes -: Bipolar disorder -: Schizophrenia -: HIV -: COPD on chronic steroid -: Chronic pain -: Hyperlipidemia -: Diabetes mellitus type 2 insulin-dependent -: History of recurrent UTI -: Diabetic neuropathy -: GERD -: Hysterectomy -: Appendectomy Psychosocial/ Personal History: Patient comes from the longterm. - Family History Father Medical History: Lung disease, Diabetes, Cancer Notes: lung cancer Mother Medical History: Lung disease, Cancer Notes: lung cancer - Social History Smoking Status: Current every day smoker Alcohol use: No CD- Drugs: No Caffeine use: Yes Place of Residence: [place] Review of Systems General: Weakness Respiratory: Cough, Shortness of Breath Physical Examination General: Alert, Oriented x3, Mild distress Respiratory: Expiratory wheezes Cardiovascular: No edema, Regular rate/rhythm, Normal S1 S2 Laboratory Data (last 24 hrs) 12/05/21 05:59: PT 10.6, INR 0.92 12/05/21 05:59: WBC 12.90 H, Hgb 14.4, Hct 43.4, Plt Count 158 12/05/21 05:59: Sodium 138, Potassium 3.9, BUN 12, Creatinine 0.94, Glucose 214 H, Magnesium 1.9, Total Bilirubin 0.3, AST 9 L, ALT 20, Alkaline Phosphatase 71 - Problems (1) COPD exacerbation Onset Date: 01/17/19 Current Visit: No Status: Acute Plan: Patient is 60 years of age admitted with COPD exacerbation doing well and when I saw her in the emergency room BiPAP on nasal cannula oxygen compliant with her bronchodilators has home O2 she is a little hypoxic hypercarbic chest x-ray shows COPD changes plan admit with antibiotic steroids and discharge follow-up with me in 2 weeks labs reviewed
[2021-12-05] MEDS: GABAPENTIN 300 MG CAP PO SCH ×3 (10:57→20:38)
[2021-12-05] MEDS: ASCORBIC ACID 500 MG TABLET PO SCH (10:57)
[2021-12-05] MEDS: ZINC SULFATE 220 MG CAP PO SCH (10:57)
[2021-12-05] MEDS ORDERED: ACETAMINOPHEN 500 MG TAB PO PRN (10:57)
[2021-12-05] MEDS: INSULIN -REGULAR HUMAN 50 UNIT/0.5 ML ML SQ SCH ×4 (10:57→20:39)
[2021-12-05] MEDS: METHYLPREDNISOLONE 40 MG INJ IV SCH ×2 (10:57→16:05)
[2021-12-05] MEDS: ASPIRIN EC 81 MG TAB PO SCH (10:57)
[2021-12-05] MEDS: ARFORMOTEROL TARTRATE 15 MCG/2 ML VIAL.NEB NEB SCH ×2 (10:57→20:15)
[2021-12-05] MEDS ORDERED: ONDANSETRON 4 MG/2 ML VIAL IV PRN (10:57)
[2021-12-05] MEDS: Levofloxacin500mg IV 500 MG/100 ML BAG IV SCH (10:57)
[2021-12-05] MEDS: VITAMIN D 1000 UNIT TAB PO SCH (10:57)
[2021-12-05] MEDS ORDERED: ASCORBIC ACID 500 MG TABLET ONE (11:36)
[2021-12-05] MEDS ORDERED: ASPIRIN EC 81 MG TAB PO ONE (11:36)
[2021-12-05] MEDS ORDERED: DIVALPROEX DR 250 MG TAB PO ONE (11:38)
--- NOTE | 2021-12-05 11:52 | RAD REPORT ---
EXAM DESCRIPTION: RAD - Chest Single View - 12/05/2021 7:06 am CLINICAL HISTORY: COPD Chest pain. COMPARISON: Chest Single View dated 04/08/2021; Chest Single View dated 01/03/2021; Chest Single View d ated 07/31/2020; Chest Single View dated 02/02/2020 FINDINGS: Portable technique limits examination quality. Mild bilateral pulmonary opacities are present, slightly greater on the left, most likely representin g pulmonary infection. The heart is normal in size. No displaced fractures.
[2021-12-05] MEDS: BENZTROPINE 1 MG TAB PO SCH (12:00)
[2021-12-05] MEDS: DIVALPROEX NA 125 MG CAP PO SCH ×3 (12:00→20:38)
[2021-12-05] MEDS: BUSPIRONE HCL 5 MG TABLET PO SCH ×3 (12:00→20:37)
[2021-12-05] MEDS: SERTRALINE HCL 100 MG TAB PO SCH (12:00)
[2021-12-05 12:05] VITALS: BMI 36.9
[2021-12-05] MEDS ORDERED: INSULIN -REGULAR HUMAN 50 UNIT/0.5 ML ML ONE (12:40)
[2021-12-05 12:52] LABS: CKMB Creatine Kinase MB 1.4 ng/mL (1.0-3.6); Troponin I 0.04 ng/mL (0.0-0.045)
[2021-12-05] MEDS: ALBUTEROL 2.5 MG/3 ML NEB SOL NEB PRN (13:43)
[2021-12-05] MEDS: IPRATROPIUM BROM 0.5MG/2.5ML NEB PRN (13:43)
[2021-12-05] MEDS: ENOXAPARIN 40 MG/0.4 ML SQ SCH (13:54)
--- NOTE | 2021-12-05 18:15 | CON ---
Date of Consultation: 12/05/2021 I saw the patient on 12/05/2021. Reason For Consultation: Respiratory failure that is acute secondary to COVID pneumonia with elevate d troponin. History Of Present Illness: Ms. Arias is 60, [place] resident. Does not have really a primary care physician or biztalk architect according to her. She has a history of HIV, CAD, GERD, CHF, and COPD . No recent echo done at this hospital. Came in with shortness of breath, was found to have no COVI D pneumonia. Denied chest pain, nausea, vomiting, diaphoresis, PND, orthopnea, pedal edema, palpitat ion, syncope, fever or chills. Past Medical History: As stated above. Allergies: SHE IS ALLERGIC TO CODEINE, PENICILLIN, SULFA, AND DEMEROL. Review of Systems: Negative. Social History: Positive for being a detention resident. Family History: Noncontributory. Medications: At home include Cogentin, aspirin, inhalers, Lipitor, and insulin. Physical Examination: General: She was in no acute distress. She was pleasant. She was receiving nebulized treatment wit h adequate O2 saturation. No complaint. HEENT: Negative. Neck: Supple with no bruit. Chest: Reveals rales in both bases. Cardiac: Regular rhythm and rate. No murmurs, gallops, or rubs. Abdomen: Benign. Extremities: No clubbing, cyanosis. She had trace edema. Imaging: Chest x-ray showed pneumonia. Troponin was 0.14. BNP is 1892. Impression And Plan: 1.Elevated troponin secondary to demand ischemia from COVID. 2.Acute respiratory failure secondary to COVID, much improved. 3.History of HIV. 4.History of coronary artery disease. No details. 5.History of gastroesophageal reflux disease. 6.History of chronic obstructive pulmonary disease. 7.History of congestive heart failure. 8.Diabetes. We do not really have much in a way of echocardiogram on Ms. Arias. I had recommended that we see h er in the office in the next 2 weeks after discharge. She may be reasonable to get an echocardiogram on her down the road. I agree with her present regimen otherwise. No need for coronary interventio n at this point. She can go home whenever it is okay with Dr. Mixon. KAYLYNN/JOHN Voice ID: [id number] Report ID: [id number]
[2021-12-05 19:06] LABS: CKMB Creatine Kinase MB 1.1 ng/mL (1.0-3.6)
[2021-12-05 19:20] LABS: Urine Appearance CLOUDY (Clear); Urine Bilirubin NEGATIVE (Negative); Urine Blood TRACE (Negative); Urine Color DK YELLOW (Yellow); Urine Glucose NEGATIVE (Negative); Urine Protein NEGATIVE (Negative); Urine Specific Gravity 1.025 (1.005-1.030); Urine Urobilinogen 0.2 mg/dL (0.2-1.0)
[2021-12-05 19:40] LABS: Urine Microscopic Reflex ORDER UMIC
[2021-12-05 19:52] LABS: Urine Bacteria 20-50 /HPF (<20); Urine RBC <5 /HPF (NONE SEEN)
[2021-12-05] MEDS: BENZONATATE 100 MG CAP PO PRN (20:38)
[2021-12-05] MEDS: RISPERIDONE 1 MG TABLET PO SCH (20:38)
[2021-12-05] MEDS: MELATONIN 5 MG TABLET PO SCH (20:39)
[2021-12-05] MEDS: INSULIN GLARGINE 100 UNIT/ML SQ SCH (20:40)
[2021-12-06] MEDS: METHYLPREDNISOLONE 40 MG INJ IV SCH ×2 (00:58→07:55)
--- NOTE | 2021-12-06 06:01 | P.PN ---
Subjective Date of Service: 12/06/21 Primary Care Provider: [facility] Chief Complaint: Shortness of breath Subjective: Improving, Other (Breathing improved. Currently on 8 L per nasal cannula.) Physical Examination - Vital Signs Temperature: 98.1 F Blood Pressure: 118/63 Pulse: 77 Respirations: 18 Pulse Ox (%): 94 - Studies Laboratory Data (last 24 hrs) 12/05/21 05:59: PT 10.6, INR 0.92 12/05/21 05:59: WBC 12.90 H, Hgb 14.4, Hct 43.4, Plt Count 158 12/05/21 05:59: Sodium 138, Potassium 3.9, BUN 12, Creatinine 0.94, Glucose 214 H, Magnesium 1.9, Total Bilirubin 0.3, AST 9 L, ALT 20, Alkaline Phosphatase 71 Assessment & Plan Discharge Plan: Custodial Plan to discharge in: 48 Hours Physician Review Additional Text: COVID: Positive Initial Chest x-ray: COMPARISON: Chest Single View dated 04/08/2021; Chest Single View dated 01/03/2021; Chest Single View dated 07/31/2020; Chest Single View dated 02/02/2020 FINDINGS: Portable technique limits examination quality. Mild bilateral pulmonary opacities are present, slightly greater on the left, most likely representing pulmonary infection. The heart is normal in size. No displaced fractures. Follow up CXR 12/06/2021: Pending Physical Exam: GENERAL: Patient alert, cooperative. VITAL SIGNS: Reviewed HEENT: Neck supple LUNGS: Better air movement bilateral. No longer on BiPAP. Currently on 8 L per nasal cannula. No respiratory distress noted. HEART: Regular rate and rhythm, no appreciable gallops, rubs, murmurs or extra heart sounds ABDOMEN: Soft, nontender, and nondistended. Positive bowel sounds. No hepatosplenomegaly was noted. EXTREMITIES: Without any cyanosis, clubbing, rash, lesions or peripheral edema. NEUROLOGIC: The patient is oriented to person, place and time. Strength and sensation are grossly intact. Face is symmetric. SKIN: Normal color, turgor and temperature. No ulcerations or rashes noted. Impression: Dyspnea secondary to acute respiratory failure with hypoxia/hypercapnia related to COVID pneumonia/COPD exacerbation on chronic steroid Diabetes mellitus type 2 insulin-dependent with hyperglycemia Elevated troponin likely ischemic demand Bipolar disorder with schizophrenia Diabetic neuropathy GERD Plan: Dyspnea secondary to acute respiratory failure with hypoxia/hypercapnia related to COVID pneumonia/COPD exacerbation on chronic steroid: Patient improved. Now down to 8 L per nasal cannula. Continue to wean off oxygen to maintain sats above 93%. Continue IV Solu-Medrol. Patient also on IV Levaquin. Continue vitamin supplementation. Patient also being treated with COPD medicationBrovana, albuterol and Atrovent. Cardiology recommends no intervention. Await recommendations by pulmonology. Continue to monitor closely. Encourage proning, lying on her side. Anticipate continued improvement. Continue to monitor CRP, ferritin and lab closely. Recheck chest x-ray today. Case discussed in detail with son. We will continue to update. I will turn the service over to the hospitalist team tomorrow. I will go plan of care with him. Diabetes mellitus type 2 insulin-dependent with hyperglycemia: Hemoglobin A1c 6.8. Continue basal insulin 10 units subcu at night. Continue to monitor and adjust. Continue Accu-Cheks and sliding scale. Elevated troponin likely ischemic demand: Case discussed with cardiology. No intervention required. Echocardiogram can be done as an outpatient. Follow-up as an outpatient. Bipolar disorder with schizophrenia: Continue with medication including benztropine 1 mg daily, buspirone 5 mg 3 times a day, Depakote sprinkles 250 mg 3 times a day, melatonin 5 mg at bedtime, Zoloft 100 mg daily, and Risperdal 1 mg daily. Diabetic neuropathy: Continue with gabapentin 300 mg 3 times a day GERD: Continue Protonix 40 mg daily HIV: Nurse not able to obtain HIV medication from snf. Patient takes abacavir/dolugravir/lamivud 600/50/300 mg daily Code Status: Spoke with son. Patient full code. DVT prophylaxis: Lovenox Advanced Care Planning-30 minutes: Herminio discussed with son. Patient will return back to the snf once improved. Likely return to snf in the next 48 to 72 hours. Time Spent Managing Pts Care (In Minutes): 55
[2021-12-06 06:05] LABS: Absolute Lymphocytes (CBC) 1.2 K/uL (0.7-4.9); Hematocrit 40.2 % (36.0-45.0); Lymphocytes % 11.3 % (15.3-44.8); MPV 9.5 fL (7.6-11.3); RBC Red Blood Cell Count 3.88 M/uL (3.86-4.86)
[2021-12-06 06:28] LABS: Potassium 4.7 mmol/L (3.5-5.1)
[2021-12-06 06:29] LABS: Albumin 2.7 g/dL (3.4-5.0); Bilirubin Total 0.2 mg/dL (0.2-1.0); Magnesium 2.4 mg/dL (1.8-2.4); Protein, Total 7.3 g/dL (6.4-8.2); Thyroid Stimulating Hormone 0.269 uIU/mL (0.360-3.740)
[2021-12-06] MEDS: ENOXAPARIN 40 MG/0.4 ML SQ SCH (07:54)
[2021-12-06] MEDS: INSULIN -REGULAR HUMAN 50 UNIT/0.5 ML ML SQ SCH ×4 (07:54→21:00)
[2021-12-06] MEDS: DIVALPROEX NA 125 MG CAP PO SCH ×3 (07:55→21:05)
[2021-12-06] MEDS: ASCORBIC ACID 500 MG TABLET PO SCH (07:55)
[2021-12-06] MEDS: SERTRALINE HCL 100 MG TAB PO SCH (07:55)
[2021-12-06] MEDS: PANTOPRAZOLE 40MG TABLET PO SCH (07:55)
[2021-12-06] MEDS: BENZTROPINE 1 MG TAB PO SCH (07:55)
[2021-12-06] MEDS: GABAPENTIN 300 MG CAP PO SCH ×3 (07:55→21:05)
[2021-12-06] MEDS: BUSPIRONE HCL 5 MG TABLET PO SCH ×3 (07:55→21:05)
[2021-12-06] MEDS: ASPIRIN EC 81 MG TAB PO SCH (07:55)
[2021-12-06] MEDS: VITAMIN D 1000 UNIT TAB PO SCH (07:55)
[2021-12-06] MEDS: ZINC SULFATE 220 MG CAP PO SCH (07:55)
--- NOTE | 2021-12-06 08:07 | RAD REPORT ---
EXAM DESCRIPTION: Sachin Single View12/06/2021 6:30 am CLINICAL HISTORY: Shortness breath COMPARISON: November 2021 FINDINGS: Mild bilateral pulmonary opacities are unchanged. Heart is normal size
[2021-12-06] MEDS: ARFORMOTEROL TARTRATE 15 MCG/2 ML VIAL.NEB NEB SCH ×2 (08:51→19:50)
[2021-12-06] MEDS: IPRATROPIUM BROM 0.5MG/2.5ML NEB PRN (08:51)
[2021-12-06] MEDS: Levofloxacin500mg IV 500 MG/100 ML BAG IV SCH (10:43)
--- NOTE | 2021-12-06 11:20 | P.PN ---
Subjective Date of Service: 12/06/21 Primary Care Provider: [facility] Chief Complaint: COPD exacerbation Subjective: Improving (Patient is improving condition stable no new complaints patient very hard of hearing) Condition stable improving more alert responsive oxygenation satisfactory Review of Systems General: Weakness Respiratory: Shortness of Breath Physical Examination - Vital Signs Temperature: 97.5 F Blood Pressure: 113/70 Pulse: 76 Respirations: 16 Pulse Ox (%): 94 - Physical Exam General: Alert, Cooperative Respiratory: Clear to auscultation bilaterally, Diminished Assessment & Plan - Problems (Diagnosis) (1) COPD exacerbation Onset Date: 01/17/19 Current Visit: No Status: Acute Plan: Patient is 60 years of age admitted with COPD exacerbation condition stable titrate sat to 90% patient is COVID-positive change to p.o. prednisone changed to p.o. levofloxacin Physician Review Additional Text: COVID: Positive Initial Chest x-ray: COMPARISON: Chest Single View dated 04/08/2021; Chest Single View dated 01/03/2021; Chest Single View dated 07/31/2020; Chest Single View dated 02/02/2020 FINDINGS: Portable technique limits examination quality. Mild bilateral pulmonary opacities are present, slightly greater on the left, most likely representing pulmonary infection. The heart is normal in size. No displaced fractures. Follow up CXR 12/06/2021: Pending Physical Exam: GENERAL: Patient alert, cooperative. VITAL SIGNS: Reviewed HEENT: Neck supple LUNGS: Better air movement bilateral. No longer on BiPAP. Currently on 8 L per nasal cannula. No respiratory distress noted. HEART: Regular rate and rhythm, no appreciable gallops, rubs, murmurs or extra heart sounds ABDOMEN: Soft, nontender, and nondistended. Positive bowel sounds. No hepatosplenomegaly was noted. EXTREMITIES: Without any cyanosis, clubbing, rash, lesions or peripheral edema. NEUROLOGIC: The patient is oriented to person, place and time. Strength and sensation are grossly intact. Face is symmetric. SKIN: Normal color, turgor and temperature. No ulcerations or rashes noted. Impression: Dyspnea secondary to acute respiratory failure with hypoxia/hypercapnia related to COVID pneumonia/COPD exacerbation on chronic steroid Diabetes mellitus type 2 insulin-dependent with hyperglycemia Elevated troponin likely ischemic demand Bipolar disorder with schizophrenia Diabetic neuropathy GERD Plan: Dyspnea secondary to acute respiratory failure with hypoxia/hypercapnia related to COVID pneumonia/COPD exacerbation on chronic steroid: Patient improved. Now down to 8 L per nasal cannula. Continue to wean off oxygen to maintain sats above 93%. Continue IV Solu-Medrol. Patient also on IV Levaquin. Continue vitamin supplementation. Patient also being treated with COPD medicationBrovana, albuterol and Atrovent. Cardiology recommends no intervention. Await recommendations by pulmonology. Continue to monitor closely. Encourage proning, lying on her side. Anticipate continued impr ovement. Continue to monitor CRP, ferritin and lab closely. Recheck chest x- ray today. Case discussed in detail with son. We will continue to update. I will turn the service over to the hospitalist team tomorrow. I will go plan of care with him. Diabetes mellitus type 2 insulin-dependent with hyperglycemia: Hemoglobin A1c 6.8. Continue basal insulin 10 units subcu at night. Continue to monitor and adjust. Continue Accu-Cheks and sliding scale. Elevated troponin likely ischemic demand: Case discussed with cardiology. No intervention required. Echocardiogram can be done as an outpatient. Follow-up as an outpatient. Bipolar disorder with schizophrenia: Continue with medication including benztropine 1 mg daily, buspirone 5 mg 3 times a day, Depakote sprinkles 250 mg 3 times a day, melatonin 5 mg at bedtime, Zoloft 100 mg daily, and Risperdal 1 mg daily. Diabetic neuropathy: Continue with gabapentin 300 mg 3 times a day GERD: Continue Protonix 40 mg daily HIV: Nurse not able to obtain HIV medication from [facility]. Patient takes abacavir/dolugravir/lamivud 600/50/300 mg daily Code Status: Spoke with son. Patient full code. DVT prophylaxis: Lovenox Advanced Care Planning-30 minutes: Herminio discussed with son. Patient will return back to the [facility] once improved. Likely return to [facility] in the next 48 to 72 hours.
[2021-12-06] MEDS: BENZONATATE 100 MG CAP PO PRN (21:00)
[2021-12-06] MEDS: RISPERIDONE 1 MG TABLET PO SCH (21:00)
[2021-12-06] MEDS: MELATONIN 5 MG TABLET PO SCH (21:01)
[2021-12-06] MEDS: INSULIN GLARGINE 100 UNIT/ML SQ SCH (21:03)
[2021-12-06] MEDS: predniSONE 20 MG TAB PO SCH (21:05)
[2021-12-07 04:01] LABS: Absolute Lymphocytes (CBC) 1.2 K/uL (0.7-4.9); Hematocrit 40.2 % (36.0-45.0); Lymphocytes % 11.3 % (15.3-44.8); MPV 9.4 fL (7.6-11.3); RBC Red Blood Cell Count 3.84 M/uL (3.86-4.86)
[2021-12-07 04:22] LABS: Albumin 2.6 g/dL (3.4-5.0); Bilirubin Total 0.2 mg/dL (0.2-1.0); C-Reactive Protein 62.4 mg/L (<3.00); Ferritin 118.9 ng/mL (8-388); Magnesium 2.4 mg/dL (1.8-2.4); Potassium 4.6 mmol/L (3.5-5.1); Protein, Total 7.1 g/dL (6.4-8.2)
[2021-12-07] MEDS: INSULIN -REGULAR HUMAN 50 UNIT/0.5 ML ML SQ SCH ×4 (07:30→20:36)
--- NOTE | 2021-12-07 07:43 | RAD REPORT ---
EXAM DESCRIPTION: Sachin Single View12/07/2021 7:09 am CLINICAL HISTORY: Shortness breath COMPARISON: December 06, 2021 FINDINGS: No significant change in the mild bilateral pulmonary opacities. Heart is normal size IMPRESSION: No significant change in mild bilateral pulmonary opacities
[2021-12-07] MEDS: predniSONE 20 MG TAB PO SCH ×2 (09:10→20:35)
[2021-12-07] MEDS: SERTRALINE HCL 100 MG TAB PO SCH (09:10)
[2021-12-07] MEDS: ASPIRIN EC 81 MG TAB PO SCH (09:10)
[2021-12-07] MEDS: ZINC SULFATE 220 MG CAP PO SCH (09:10)
[2021-12-07] MEDS: levoFLOXacin 500 MG TAB PO SCH (09:10)
[2021-12-07] MEDS: BUSPIRONE HCL 5 MG TABLET PO SCH ×3 (09:10→20:35)
[2021-12-07] MEDS: VITAMIN D 1000 UNIT TAB PO SCH (09:10)
[2021-12-07] MEDS: BENZTROPINE 1 MG TAB PO SCH (09:10)
[2021-12-07] MEDS: ENOXAPARIN 40 MG/0.4 ML SQ SCH (09:10)
[2021-12-07] MEDS: GABAPENTIN 300 MG CAP PO SCH ×3 (09:10→20:35)
[2021-12-07] MEDS: DIVALPROEX NA 125 MG CAP PO SCH ×3 (09:11→20:36)
[2021-12-07] MEDS: PANTOPRAZOLE 40MG TABLET PO SCH (09:11)
[2021-12-07] MEDS: ASCORBIC ACID 500 MG TABLET PO SCH (09:11)
[2021-12-07] MEDS: ARFORMOTEROL TARTRATE 15 MCG/2 ML VIAL.NEB NEB SCH ×2 (09:43→19:25)
--- NOTE | 2021-12-07 12:32 | P.PN ---
Subjective Date of Service: 12/07/21 Primary Care Provider: [facility] Chief Complaint: COPD exacerbation Patient is doing better breathing has improved on 4 L of nasal cannula oxygen patient has oxygen at home Review of Systems Respiratory: Shortness of Breath Physical Examination - Vital Signs Temperature: 97.5 F Blood Pressure: 119/67 Pulse: 82 Respirations: 16 Pulse Ox (%): 93 - Physical Exam General: Alert, In no apparent distress, Oriented x3 Respiratory: Clear to auscultation bilaterally, Diminished, Expiratory wheezes Assessment & Plan - Problems (Diagnosis) (1) COPD exacerbation Onset Date: 01/17/19 Current Visit: No Status: Acute Plan: Patient admitted with COPD exacerbation doing well no evidence of sepsis plan to discharge on low-dose prednisone 10 mg twice a day for 10 days continue with patient's home bronchodilators patient does take Advair and I think Spiriva at home follow-up with me in 2 weeks he has home oxygen
--- NOTE | 2021-12-07 19:17 | P.PN ---
Subjective Date of Service: 12/07/21 Subjective: Improving, Doing well Review of Systems 10-point ROS is otherwise unremarkable Physical Examination - Vital Signs Temperature: 97.9 F Blood Pressure: 118/61 Pulse: 87 Respirations: 16 Pulse Ox (%): 93 - Physical Exam General: Alert, In no apparent distress HEENT: Atraumatic, PERRLA, EOMI Neck: Supple, JVD not distended Respiratory: Clear to auscultation bilaterally, Normal air movement Cardiovascular: Regular rate/rhythm, Normal S1 S2 Gastrointestinal: Normal bowel sounds, No tenderness Musculoskeletal: No tenderness Integumentary: No rashes Neurological: Normal speech, Normal tone, Normal affect Lymphatics: No axilla or inguinal lymphadenopathy - Studies Medications List Reviewed: Yes Assessment & Plan - Problems (Diagnosis) (1) Pneumonia due to COVID-19 virus Current Visit: Yes Status: Acute (2) COPD exacerbation Onset Date: 01/17/19 Current Visit: No Status: Acute (3) Diabetes mellitus Onset Date: 08/30/18 Current Visit: No Status: Chronic Qualifiers: (4) HIV (human immunodeficiency virus infection) Onset Date: 07/09/15 Current Visit: No Status: Chronic (5) Hyperlipidemia Onset Date: 08/30/18 Current Visit: No Status: Chronic Qualifiers: - Plan 1. IV steroids 2. O2 per protocol 3. Okay to DC 4. Outpatient pulmonary follow-up 5. We will address vaccination status Discharge Plan: Shelter Plan to discharge in: 24 Hours - Advance Directives Does patient have a Living Will: No Does patient have a Durable POA for Healthcare: No - Code Status/Comfort Care Code Status Assessed: Yes Code Status: Full Code Critical Care: No Time Spent Managing PTS Care (In Minutes): 35
[2021-12-07] MEDS: RISPERIDONE 1 MG TABLET PO SCH (20:35)
[2021-12-07] MEDS: MELATONIN 5 MG TABLET PO SCH (20:35)
[2021-12-07] MEDS: INSULIN GLARGINE 100 UNIT/ML SQ SCH (21:17)
[2021-12-08 05:38] LABS: Hematocrit 41.1 % (36.0-45.0); Lymphocytes % 14.4 % (15.3-44.8); RBC Red Blood Cell Count 3.98 M/uL (3.86-4.86)
[2021-12-08 06:03] LABS: Albumin 2.5 g/dL (3.4-5.0); Bilirubin Total 0.3 mg/dL (0.2-1.0); C-Reactive Protein 25.3 mg/L (<3.00); Ferritin 133.7 ng/mL (8-388); Magnesium 2.4 mg/dL (1.8-2.4); Potassium 4.7 mmol/L (3.5-5.1); Protein, Total 6.9 g/dL (6.4-8.2)
[2021-12-08] MEDS: INSULIN -REGULAR HUMAN 50 UNIT/0.5 ML ML SQ SCH ×4 (07:30→20:49)
[2021-12-08] MEDS: ASCORBIC ACID 500 MG TABLET PO SCH (07:55)
[2021-12-08] MEDS: ZINC SULFATE 220 MG CAP PO SCH (07:55)
[2021-12-08] MEDS: PANTOPRAZOLE 40MG TABLET PO SCH (07:55)
[2021-12-08] MEDS: ASPIRIN EC 81 MG TAB PO SCH (07:55)
[2021-12-08] MEDS: GABAPENTIN 300 MG CAP PO SCH ×3 (07:55→20:48)
[2021-12-08] MEDS: SERTRALINE HCL 100 MG TAB PO SCH (07:55)
[2021-12-08] MEDS: DIVALPROEX NA 125 MG CAP PO SCH ×3 (07:56→20:48)
[2021-12-08] MEDS: ENOXAPARIN 40 MG/0.4 ML SQ SCH (07:56)
[2021-12-08] MEDS: VITAMIN D 1000 UNIT TAB PO SCH (07:56)
[2021-12-08] MEDS: BUSPIRONE HCL 5 MG TABLET PO SCH ×3 (07:56→20:48)
[2021-12-08] MEDS: BENZTROPINE 1 MG TAB PO SCH (07:56)
[2021-12-08] MEDS: levoFLOXacin 500 MG TAB PO SCH (07:56)
[2021-12-08] MEDS: predniSONE 20 MG TAB PO SCH ×2 (07:57→20:48)
[2021-12-08] MEDS: ARFORMOTEROL TARTRATE 15 MCG/2 ML VIAL.NEB NEB SCH ×2 (08:23→19:35)
[2021-12-08] MEDS: IPRATROPIUM BROM 0.5MG/2.5ML NEB PRN (19:35)
[2021-12-08] MEDS: RISPERIDONE 1 MG TABLET PO SCH (20:48)
[2021-12-08] MEDS: MELATONIN 5 MG TABLET PO SCH (20:48)
[2021-12-08] MEDS: INSULIN GLARGINE 100 UNIT/ML SQ SCH (20:49)
[2021-12-09 06:58] LABS: C-Reactive Protein 11.6 mg/L (<3.00); Ferritin 103.3 ng/mL (8-388)
[2021-12-09] MEDS: INSULIN -REGULAR HUMAN 50 UNIT/0.5 ML ML SQ SCH ×4 (07:30→20:22)
[2021-12-09] MEDS: ZINC SULFATE 220 MG CAP PO SCH (08:06)
[2021-12-09] MEDS: ASCORBIC ACID 500 MG TABLET PO SCH (08:06)
[2021-12-09] MEDS: BENZTROPINE 1 MG TAB PO SCH (08:06)
[2021-12-09] MEDS: predniSONE 20 MG TAB PO SCH ×2 (08:06→20:24)
[2021-12-09] MEDS: SERTRALINE HCL 100 MG TAB PO SCH (08:06)
[2021-12-09] MEDS: VITAMIN D 1000 UNIT TAB PO SCH (08:06)
[2021-12-09] MEDS: ASPIRIN EC 81 MG TAB PO SCH (08:06)
[2021-12-09] MEDS: BUSPIRONE HCL 5 MG TABLET PO SCH ×3 (08:07→20:24)
[2021-12-09] MEDS: PANTOPRAZOLE 40MG TABLET PO SCH (08:07)
[2021-12-09] MEDS: DIVALPROEX NA 125 MG CAP PO SCH ×3 (08:07→20:24)
[2021-12-09] MEDS: GABAPENTIN 300 MG CAP PO SCH ×3 (08:07→20:24)
[2021-12-09] MEDS: levoFLOXacin 500 MG TAB PO SCH (08:07)
[2021-12-09] MEDS: ENOXAPARIN 40 MG/0.4 ML SQ SCH (08:08)
[2021-12-09] MEDS: ARFORMOTEROL TARTRATE 15 MCG/2 ML VIAL.NEB NEB SCH ×2 (08:15→20:30)
[2021-12-09] MEDS: MELATONIN 5 MG TABLET PO SCH (20:24)
[2021-12-09] MEDS: BENZONATATE 100 MG CAP PO PRN (20:24)
[2021-12-09] MEDS: RISPERIDONE 1 MG TABLET PO SCH (20:24)
[2021-12-09] MEDS: INSULIN GLARGINE 100 UNIT/ML SQ SCH (20:29)
[2021-12-10] MEDS: INSULIN -REGULAR HUMAN 50 UNIT/0.5 ML ML SQ SCH ×4 (07:30→19:55)
[2021-12-10] MEDS: ARFORMOTEROL TARTRATE 15 MCG/2 ML VIAL.NEB NEB SCH ×2 (09:05→21:05)
[2021-12-10] MEDS: VITAMIN D 1000 UNIT TAB PO SCH (09:51)
[2021-12-10] MEDS: ASCORBIC ACID 500 MG TABLET PO SCH (09:52)
[2021-12-10] MEDS: SERTRALINE HCL 100 MG TAB PO SCH (09:52)
[2021-12-10] MEDS: ASPIRIN EC 81 MG TAB PO SCH (09:52)
[2021-12-10] MEDS: GABAPENTIN 300 MG CAP PO SCH ×3 (09:52→19:54)
[2021-12-10] MEDS: PANTOPRAZOLE 40MG TABLET PO SCH (09:52)
[2021-12-10] MEDS: levoFLOXacin 500 MG TAB PO SCH (09:52)
[2021-12-10] MEDS: ZINC SULFATE 220 MG CAP PO SCH (09:52)
[2021-12-10] MEDS: BENZTROPINE 1 MG TAB PO SCH (09:52)
[2021-12-10] MEDS: BUSPIRONE HCL 5 MG TABLET PO SCH ×3 (09:52→19:55)
[2021-12-10] MEDS: predniSONE 20 MG TAB PO SCH ×2 (09:52→19:55)
[2021-12-10] MEDS: ENOXAPARIN 40 MG/0.4 ML SQ SCH (09:53)
[2021-12-10] MEDS: DIVALPROEX NA 125 MG CAP PO SCH ×3 (09:53→19:54)
[2021-12-10] MEDS ORDERED: NA CHLORIDE 0.9% 50 ML ONE (12:19)
[2021-12-10] MEDS: RISPERIDONE 1 MG TABLET PO SCH (19:55)
[2021-12-10] MEDS: INSULIN GLARGINE 100 UNIT/ML SQ SCH (19:56)
[2021-12-10] MEDS: MELATONIN 5 MG TABLET PO SCH (19:59)
[2021-12-10] MEDS: IPRATROPIUM BROM 0.5MG/2.5ML NEB PRN (21:05)
[2021-12-11] MEDS: INSULIN -REGULAR HUMAN 50 UNIT/0.5 ML ML SQ SCH ×4 (07:30→21:00)
--- NOTE | 2021-12-11 07:41 | P.PN ---
Date of Service: 12/08/21 Subjective Subjective: Doing well Review of Systems 10-point ROS is otherwise unremarkable Physical Examination - Vital Signs reviewed - Physical Exam General: Alert, In no apparent distress Respiratory: Clear to auscultation bilaterally, Normal air movement Cardiovascular: Regular rate/rhythm, Normal S1 S2 Gastrointestinal: Normal bowel sounds, No tenderness Neurological: Normal speech, Normal tone, Normal affect Assessment & Plan - Problems (Diagnosis) (1) Pneumonia due to COVID-19 virus Current Visit: Yes Status: Acute (2) COPD exacerbation Onset Date: 01/17/19 Current Visit: No Status: Acute (3) Diabetes mellitus Onset Date: 08/30/18 Current Visit: No Status: Chronic Qualifiers: (4) HIV (human immunodeficiency virus infection) Onset Date: 07/09/15 Current Visit: No Status: Chronic (5) Hyperlipidemia Onset Date: 08/30/18 Current Visit: No Status: Chronic Qualifiers: - Plan Continue with plan of care as mentioned below: 1. Oral steroids 2. O2 per protocol 3. Awaiting for placement 4. Outpatient pulmonary follow-up
--- NOTE | 2021-12-11 07:42 | P.PN ---
Date of Service: 12/09/21 Subjective Subjective: Continues to do well continues to do well Review of Systems 10-point ROS is otherwise unremarkable Physical Examination - Vital Signs reviewed - Physical Exam General: Alert, In no apparent distress Respiratory: Clear to auscultation bilaterally, Normal air movement Cardiovascular: Regular rate/rhythm, Normal S1 S2 Gastrointestinal: Normal bowel sounds, No tenderness Neurological: Normal speech, Normal tone, Normal affect Assessment & Plan - Problems (Diagnosis) (1) Pneumonia due to COVID-19 virus Current Visit: Yes Status: Acute (2) COPD exacerbation Onset Date: 01/17/19 Current Visit: No Status: Acute (3) Diabetes mellitus Onset Date: 08/30/18 Current Visit: No Status: Chronic Qualifiers: (4) HIV (human immunodeficiency virus infection) Onset Date: 07/09/15 Current Visit: No Status: Chronic (5) Hyperlipidemia Onset Date: 08/30/18 Current Visit: No Status: Chronic Qualifiers: - Plan Continue with plan of care as mentioned below: 1. Oral steroids 2. O2 per protocol 3. Awaiting for placement 4. Outpatient pulmonary follow-up
--- NOTE | 2021-12-11 07:44 | P.PN ---
Date of Service: 12/11/21 Subjective Subjective: Patient with no new complaints. Review of Systems 10-point ROS is otherwise unremarkable Physical Examination - Vital Signs reviewed - Physical Exam General: Alert, In no apparent distress Respiratory: Clear to auscultation bilaterally, Normal air movement Cardiovascular: Regular rate/rhythm, Normal S1 S2 Gastrointestinal: Normal bowel sounds, No tenderness Neurological: Normal speech, Normal tone, Normal affect Assessment & Plan - Problems (Diagnosis) (1) Pneumonia due to COVID-19 virus Current Visit: Yes Status: Acute (2) COPD exacerbation Onset Date: 01/17/19 Current Visit: No Status: Acute (3) Diabetes mellitus Onset Date: 08/30/18 Current Visit: No Status: Chronic Qualifiers: (4) HIV (human immunodeficiency virus infection) Onset Date: 07/09/15 Current Visit: No Status: Chronic (5) Hyperlipidemia Onset Date: 08/30/18 Current Visit: No Status: Chronic Qualifiers: - Plan Continue with plan of care as mentioned below: 1. Oral steroids 2. O2 per protocol 3. Awaiting for placement 4. Outpatient pulmonary follow-up
--- NOTE | 2021-12-11 07:44 | P.PN ---
Date of Service: 12/10/21 Subjective Subjective: Awaiting for placement Review of Systems 10-point ROS is otherwise unremarkable Physical Examination - Vital Signs reviewed - Physical Exam General: Alert, In no apparent distress Respiratory: Clear to auscultation bilaterally, Normal air movement Cardiovascular: Regular rate/rhythm, Normal S1 S2 Gastrointestinal: Normal bowel sounds, No tenderness Neurological: Normal speech, Normal tone, Normal affect Assessment & Plan - Problems (Diagnosis) (1) Pneumonia due to COVID-19 virus Current Visit: Yes Status: Acute (2) COPD exacerbation Onset Date: 01/17/19 Current Visit: No Status: Acute (3) Diabetes mellitus Onset Date: 08/30/18 Current Visit: No Status: Chronic Qualifiers: (4) HIV (human immunodeficiency virus infection) Onset Date: 07/09/15 Current Visit: No Status: Chronic (5) Hyperlipidemia Onset Date: 08/30/18 Current Visit: No Status: Chronic Qualifiers: - Plan Continue with plan of care as mentioned below: 1. Oral steroids 2. O2 per protocol 3. Awaiting for placement 4. Outpatient pulmonary follow-up
[2021-12-11] MEDS: ASPIRIN EC 81 MG TAB PO SCH (07:47)
[2021-12-11] MEDS: ENOXAPARIN 40 MG/0.4 ML SQ SCH (07:47)
[2021-12-11] MEDS: DIVALPROEX NA 125 MG CAP PO SCH ×3 (07:48→21:06)
[2021-12-11] MEDS: PANTOPRAZOLE 40MG TABLET PO SCH (07:48)
[2021-12-11] MEDS: GABAPENTIN 300 MG CAP PO SCH ×3 (07:49→21:06)
[2021-12-11] MEDS: levoFLOXacin 500 MG TAB PO SCH (07:49)
[2021-12-11] MEDS: BENZTROPINE 1 MG TAB PO SCH (07:49)
[2021-12-11] MEDS: BUSPIRONE HCL 5 MG TABLET PO SCH ×3 (07:49→21:06)
[2021-12-11] MEDS: predniSONE 20 MG TAB PO SCH (07:49)
[2021-12-11] MEDS: SERTRALINE HCL 100 MG TAB PO SCH (07:50)
[2021-12-11] MEDS: ASCORBIC ACID 500 MG TABLET PO SCH (07:50)
[2021-12-11] MEDS: ARFORMOTEROL TARTRATE 15 MCG/2 ML VIAL.NEB NEB SCH ×2 (08:12→20:00)
[2021-12-11] MEDS: IPRATROPIUM BROM 0.5MG/2.5ML NEB PRN (20:00)
[2021-12-11] MEDS: RISPERIDONE 1 MG TABLET PO SCH (21:06)
[2021-12-11] MEDS: MELATONIN 5 MG TABLET PO SCH (21:06)
[2021-12-11] MEDS: INSULIN GLARGINE 100 UNIT/ML SQ SCH (21:07)
[2021-12-12 06:05] LABS: Absolute Lymphocytes (CBC) 2.3 K/uL (0.7-4.9); Hematocrit 40.9 % (36.0-45.0); Lymphocytes % 34.8 % (15.3-44.8); RBC Red Blood Cell Count 3.97 M/uL (3.86-4.86)
[2021-12-12 06:50] LABS: Folic Acid, (Folate) 8.5 ng/mL (3.1-17.5); Magnesium 2.2 mg/dL (1.8-2.4); Potassium 3.6 mmol/L (3.5-5.1)
[2021-12-12] MEDS: INSULIN -REGULAR HUMAN 50 UNIT/0.5 ML ML SQ SCH ×4 (07:30→21:00)
[2021-12-12] MEDS: levoFLOXacin 500 MG TAB PO SCH (07:52)
[2021-12-12] MEDS: SERTRALINE HCL 100 MG TAB PO SCH (07:52)
[2021-12-12] MEDS: ENOXAPARIN 40 MG/0.4 ML SQ SCH (07:52)
[2021-12-12] MEDS: ASPIRIN EC 81 MG TAB PO SCH (07:53)
[2021-12-12] MEDS: BENZTROPINE 1 MG TAB PO SCH (07:53)
[2021-12-12] MEDS: predniSONE 20 MG TAB PO SCH (07:53)
[2021-12-12] MEDS: GABAPENTIN 300 MG CAP PO SCH ×3 (07:53→21:23)
[2021-12-12] MEDS: PANTOPRAZOLE 40MG TABLET PO SCH (07:53)
[2021-12-12] MEDS: ASCORBIC ACID 500 MG TABLET PO SCH (07:53)
[2021-12-12] MEDS: DIVALPROEX NA 125 MG CAP PO SCH ×3 (07:54→21:23)
[2021-12-12] MEDS: BUSPIRONE HCL 5 MG TABLET PO SCH ×3 (07:54→21:23)
[2021-12-12 08:47] LABS: Blood Morphology Comment NOT SEEN (NOT SEEN); Platelet Estimate ADEQ
[2021-12-12] MEDS: ARFORMOTEROL TARTRATE 15 MCG/2 ML VIAL.NEB NEB SCH ×2 (09:04→19:47)
[2021-12-12] MEDS: INSULIN GLARGINE 100 UNIT/ML SQ SCH (21:22)
[2021-12-12] MEDS: MELATONIN 5 MG TABLET PO SCH (21:23)
[2021-12-12] MEDS: RISPERIDONE 1 MG TABLET PO SCH (21:23)
[2021-12-12] MEDS: BENZONATATE 100 MG CAP PO PRN (21:27)
[2021-12-13] MEDS: INSULIN -REGULAR HUMAN 50 UNIT/0.5 ML ML SQ SCH ×4 (07:30→21:00)
[2021-12-13] MEDS: PANTOPRAZOLE 40MG TABLET PO SCH (07:30)
[2021-12-13] MEDS: BENZTROPINE 1 MG TAB PO SCH (07:48)
[2021-12-13] MEDS: ASPIRIN EC 81 MG TAB PO SCH (07:48)
[2021-12-13] MEDS: BUSPIRONE HCL 5 MG TABLET PO SCH ×3 (07:48→22:04)
[2021-12-13] MEDS: DIVALPROEX NA 125 MG CAP PO SCH ×3 (07:49→21:00)
[2021-12-13] MEDS: ENOXAPARIN 40 MG/0.4 ML SQ SCH (07:49)
[2021-12-13] MEDS: GABAPENTIN 300 MG CAP PO SCH ×3 (07:49→22:04)
[2021-12-13] MEDS: levoFLOXacin 500 MG TAB PO SCH (07:49)
[2021-12-13] MEDS: ASCORBIC ACID 500 MG TABLET PO SCH (07:50)
[2021-12-13] MEDS: SERTRALINE HCL 100 MG TAB PO SCH (07:50)
[2021-12-13] MEDS: predniSONE 20 MG TAB PO SCH (07:51)
[2021-12-13] MEDS: ARFORMOTEROL TARTRATE 15 MCG/2 ML VIAL.NEB NEB SCH ×2 (08:00→20:20)
[2021-12-13] MEDS: IPRATROPIUM BROM 0.5MG/2.5ML NEB PRN (20:20)
[2021-12-13] MEDS: INSULIN GLARGINE 100 UNIT/ML SQ SCH (21:00)
[2021-12-13] MEDS: MELATONIN 5 MG TABLET PO SCH (22:04)
[2021-12-13] MEDS: RISPERIDONE 1 MG TABLET PO SCH (22:04)
--- NOTE | 2021-12-13 23:15 | P.PN ---
Date of Service: 12/12/21 Subjective Subjective: Patient is doing well with no new complaints. Review of Systems 10-point ROS is otherwise unremarkable Physical Examination - Vital Signs reviewed - Physical Exam General: Alert, In no apparent distress Respiratory: Clear to auscultation bilaterally, Normal air movement Cardiovascular: Regular rate/rhythm, Normal S1 S2 Gastrointestinal: Normal bowel sounds, No tenderness Neurological: Normal speech, Normal tone, Normal affect Assessment & Plan - Problems (Diagnosis) (1) Pneumonia due to COVID-19 virus Current Visit: Yes Status: Acute (2) COPD exacerbation Onset Date: 01/17/19 Current Visit: No Status: Acute (3) Diabetes mellitus Onset Date: 08/30/18 Current Visit: No Status: Chronic Qualifiers: (4) HIV (human immunodeficiency virus infection) Onset Date: 07/09/15 Current Visit: No Status: Chronic (5) Hyperlipidemia Onset Date: 08/30/18 Current Visit: No Status: Chronic Qualifiers: - Plan Continue with plan of care as mentioned below: 1. Oral steroids-tapering 2. O2 per protocol 3. Awaiting for placement-December 15 at [facility] 4. Outpatient pulmonary follow-up
--- NOTE | 2021-12-13 23:16 | P.PN ---
Date of Service: 12/13/21 Subjective Subjective: Patient is doing well with no new complaints; awaiting for placement Review of Systems 10-point ROS is otherwise unremarkable Physical Examination - Vital Signs reviewed - Physical Exam General: Alert, In no apparent distress Respiratory: Clear to auscultation bilaterally, Normal air movement Cardiovascular: Regular rate/rhythm, Normal S1 S2 Gastrointestinal: Normal bowel sounds, No tenderness Neurological: Normal speech, Normal tone, Normal affect Assessment & Plan - Problems (Diagnosis) (1) Pneumonia due to COVID-19 virus Current Visit: Yes Status: Acute (2) COPD exacerbation Onset Date: 01/17/19 Current Visit: No Status: Acute (3) Diabetes mellitus Onset Date: 08/30/18 Current Visit: No Status: Chronic Qualifiers: (4) HIV (human immunodeficiency virus infection) Onset Date: 07/09/15 Current Visit: No Status: Chronic (5) Hyperlipidemia Onset Date: 08/30/18 Current Visit: No Status: Chronic Qualifiers: - Plan Continue with plan of care as mentioned below: 1. Oral steroids-tapering 2. O2 per protocol; check room air O2 sats 3. Awaiting for placement-December 15 at [facility] 4. Outpatient pulmonary follow-up
[2021-12-14] MEDS ORDERED: predniSONE 10 MG TAB ONE (07:01)
[2021-12-14] MEDS: BUSPIRONE HCL 5 MG TABLET PO SCH ×3 (07:28→21:26)
[2021-12-14] MEDS: ASCORBIC ACID 500 MG TABLET PO SCH (07:28)
[2021-12-14] MEDS: GABAPENTIN 300 MG CAP PO SCH ×3 (07:28→21:26)
[2021-12-14] MEDS: PANTOPRAZOLE 40MG TABLET PO SCH (07:28)
[2021-12-14] MEDS: ASPIRIN EC 81 MG TAB PO SCH (07:28)
[2021-12-14] MEDS: ENOXAPARIN 40 MG/0.4 ML SQ SCH (07:29)
[2021-12-14] MEDS: DIVALPROEX NA 125 MG CAP PO SCH ×3 (07:29→21:26)
[2021-12-14] MEDS: SERTRALINE HCL 100 MG TAB PO SCH (07:29)
[2021-12-14] MEDS: BENZTROPINE 1 MG TAB PO SCH (07:29)
[2021-12-14] MEDS: INSULIN -REGULAR HUMAN 50 UNIT/0.5 ML ML SQ SCH ×4 (07:30→21:00)
[2021-12-14] MEDS: predniSONE 20 MG TAB PO SCH (07:33)
[2021-12-14] MEDS: ARFORMOTEROL TARTRATE 15 MCG/2 ML VIAL.NEB NEB SCH ×2 (08:50→21:00)
--- NOTE | 2021-12-14 12:49 | P.PN ---
Subjective Date of Service: 12/14/21 Primary Care Provider: [facility] Chief Complaint: Shortness of breath Subjective: Improving Physical Examination - Vital Signs Temperature: 96.9 F Blood Pressure: 110/56 Pulse: 72 Respirations: 18 Pulse Ox (%): 95 - Studies Medications List Reviewed: Yes Assessment & Plan Discharge Plan: [facility] Plan to discharge in: 24 Hours Physician Review Additional Text: COVID: Positive Initial Chest x-ray: COMPARISON: Chest Single View dated 04/08/2021; Chest Single View dated 01/03/2021; Chest Single View dated 07/31/2020; Chest Single View dated 02/02/2020 FINDINGS: Portable technique limits examination quality. Mild bilateral pulmonary opacities are present, slightly greater on the left, most likely representing pulmonary infection. The heart is normal in size. No displaced fractures. Follow up CXR 12/07/2021: COMPARISON: December 06, 2021 FINDINGS: No significant change in the mild bilateral pulmonary opacities. Heart is normal size IMPRESSION: No significant change in mild bilateral pulmonary opacities Physical Exam: GENERAL: Patient alert, cooperative. VITAL SIGNS: Reviewed HEENT: Neck supple LUNGS: Better air movement bilateral. No longer on BiPAP. Currently on 2 L per nasal cannula HEART: Regular rate and rhythm, no appreciable gallops, rubs, murmurs or extra heart sounds ABDOMEN: Soft, nontender, and nondistended. Positive bowel sounds. No hepatosplenomegaly was noted. EXTREMITIES: Without any cyanosis, clubbing, rash, lesions or peripheral edema. NEUROLOGIC: The patient is oriented to person, place and time. Strength and sensation are grossly intact. Face is symmetric. SKIN: Normal color, turgor and temperature. No ulcerations or rashes noted. Impression: Dyspnea secondary to acute respiratory failure with hypoxia/hypercapnia related to COVID pneumonia/COPD exacerbation on chronic steroid Diabetes mellitus type 2 insulin-dependent with hyperglycemia Elevated troponin likely ischemic demand Bipolar disorder with schizophrenia Diabetic neuropathy GERD Plan: Dyspnea secondary to acute respiratory failure with hypoxia/hypercapnia related to COVID pneumonia/COPD exacerbation on chronic steroid: Patient has continued to do well. Currently on 2 L per nasal cannula. Continue to wean off oxygen to maintain sats above 93%. Continue with oral steroid. Continue COPD medicationBrovana, albuterol and Atrovent. Continue to monitor closely. Encourage proning, lying on her side. Anticipate continued improvement. [facility] different [facility] due to her COVID status. Diabetes mellitus type 2 insulin-dependent with hyperglycemia: Hemoglobin A1c 6.8. Continue basal insulin 10 units subcu at night. Continue to monitor and adjust. Continue Accu-Cheks and sliding scale. Elevated troponin likely ischemic demand: Case discussed with cardiology. No intervention required. Echocardiogram can be done as an outpatient. Follow-up as an outpatient. Bipolar disorder with schizophrenia: Continue with medication including benztropine 1 mg daily, buspirone 5 mg 3 times a day, Depakote sprinkles 250 mg 3 times a day, melatonin 5 mg at bedtime, Zoloft 100 mg daily, and Risperdal 1 mg daily. 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 Patient takes abacavir/dolugravir/lamivud 600/50/300 mg daily Code Status: Spoke with son. Patient full code. DVT prophylaxis: Lovenox Advanced Care Planning-30 minutes: [facility]. Time Spent Managing Pts Care (In Minutes): 55
[2021-12-14] MEDS: INSULIN GLARGINE 100 UNIT/ML SQ SCH (21:00)
[2021-12-14] MEDS: RISPERIDONE 1 MG TABLET PO SCH (21:26)
[2021-12-14] MEDS: MELATONIN 5 MG TABLET PO SCH (21:26)
--- NOTE | 2021-12-15 06:19 | P.PN ---
Subjective Date of Service: 12/15/21 Primary Care Provider: [facility] Chief Complaint: Shortness of breath Subjective: Doing well Physical Examination - Vital Signs Temperature: 98.2 F Blood Pressure: 100/55 Pulse: 80 Respirations: 18 Pulse Ox (%): 94 - Studies Medications List Reviewed: Yes Assessment & Plan Discharge Plan: [facility] Plan to discharge in: 24 Hours Physician Review Additional Text: COVID: Positive Initial Chest x-ray: COMPARISON: Chest Single View dated 04/08/2021; Chest Single View dated 01/03/2021; Chest Single View dated 07/31/2020; Chest Single View dated 02/02/2020 FINDINGS: Portable technique limits examination quality. Mild bilateral pulmonary opacities are present, slightly greater on the left, most likely representing pulmonary infection. The heart is normal in size. No displaced fractures. Follow up CXR 12/07/2021: COMPARISON: December 06, 2021 FINDINGS: No significant change in the mild bilateral pulmonary opacities. Heart is normal size IMPRESSION: No significant change in mild bilateral pulmonary opacities Physical Exam: GENERAL: Patient alert, cooperative. VITAL SIGNS: Reviewed HEENT: Neck supple LUNGS: Better air movement bilateral. No longer on BiPAP. Currently on 2 L per nasal cannula HEART: Regular rate and rhythm, no appreciable gallops, rubs, murmurs or extra heart sounds ABDOMEN: Soft, nontender, and nondistended. Positive bowel sounds. No hepatosplenomegaly was noted. EXTREMITIES: Without any cyanosis, clubbing, rash, lesions or peripheral edema. NEUROLOGIC: The patient is oriented to person, place and time. Strength and sensation are grossly intact. Face is symmetric. SKIN: Normal color, turgor and temperature. No ulcerations or rashes noted. Impression: Dyspnea secondary to acute respiratory failure with hypoxia/hypercapnia related to COVID pneumonia/COPD exacerbation on chronic steroid Diabetes mellitus type 2 insulin-dependent with hyperglycemia Elevated troponin likely ischemic demand Bipolar disorder with schizophrenia Diabetic neuropathy GERD Plan: Dyspnea secondary to acute respiratory failure with hypoxia/hypercapnia related to COVID pneumonia/COPD exacerbation on chronic steroid: Patient doing well. Currently on room air. [facility] since it has been 10 days since her diagnosis. Spoke with son. Son plans to transition her to a different [facility] after [facility] back to the current [facility]. At discharge patient may continue with prednisone 10 mg twice daily for 7 days then 1 pill once daily for 7 days. Patient will continue with her COPD medicationBrovana, albuterol and Atrovent. Continue with COVID discharge instructions. Diabetes mellitus type 2 insulin-dependent with hyperglycemia: Hemoglobin A1c 6.8. Continue basal insulin 10 units subcu at night. Continue to monitor and adjust. Continue Accu-Cheks and sliding scale. Elevated troponin likely ischemic demand: Case discussed with cardiology. No intervention required. Echocardiogram can be done as an outpatient. Follow-up as an outpatient. Bipolar disorder with schizophrenia: Continue with medication including benztropine 1 mg daily, buspirone 5 mg 3 times a day, Depakote sprinkles 250 mg 3 times a day, melatonin 5 mg at bedtime, Zoloft 100 mg daily, and Risperdal 1 mg daily. 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 Patient takes abacavir/dolugravir/lamivud 600/50/300 mg daily Code Status: Spoke with son. Patient full code. DVT prophylaxis: Lovenox Advanced Care Planning-30 minutes: [facility]. Time Spent Managing Pts Care (In Minutes): 55
[2021-12-15] MEDS: INSULIN -REGULAR HUMAN 50 UNIT/0.5 ML ML SQ SCH ×2 (07:30→12:07)
[2021-12-15] MEDS: PANTOPRAZOLE 40MG TABLET PO SCH (08:37)
[2021-12-15] MEDS: predniSONE 20 MG TAB PO SCH (08:37)
[2021-12-15] MEDS: DIVALPROEX NA 125 MG CAP PO SCH (08:37)
[2021-12-15] MEDS: BENZTROPINE 1 MG TAB PO SCH (08:37)
[2021-12-15] MEDS: ASPIRIN EC 81 MG TAB PO SCH (08:37)
[2021-12-15] MEDS: BUSPIRONE HCL 5 MG TABLET PO SCH (08:37)
[2021-12-15] MEDS: ASCORBIC ACID 500 MG TABLET PO SCH (08:37)
[2021-12-15] MEDS: GABAPENTIN 300 MG CAP PO SCH (08:37)
[2021-12-15] MEDS: SERTRALINE HCL 100 MG TAB PO SCH (08:37)
[2021-12-15] MEDS: ENOXAPARIN 40 MG/0.4 ML SQ SCH (08:38)
--- NOTE | 2021-12-15 08:39 | P.DS ---
Admission Date: 12/05/21 Discharge Date: 12/15/21 Primary Care Provider: [facility] Disposition: ROUTINE DISCHARGE Discharge Condition: GOOD Reason for Admission: Shortness of breath Consultations: Pulmonary-Dr. Fenton Procedures: COVID: Positive Initial Chest x-ray: COMPARISON: Chest Single View dated 04/08/2021; Chest Single View dated 01/03/2021; Chest Single View dated 07/31/2020; Chest Single View dated 02/02/2020 FINDINGS: Portable technique limits examination quality. Mild bilateral pulmonary opacities are present, slightly greater on the left, most likely representing pulmonary infection. The heart is normal in size. No displaced fractures. Follow up CXR 12/07/2021: COMPARISON: December 06, 2021 FINDINGS: No significant change in the mild bilateral pulmonary opacities. Heart is normal size IMPRESSION: No significant change in mild bilateral pulmonary opacities Medical Problem List: Dyspnea secondary to acute respiratory failure with hypoxia/hypercapnia related to COVID pneumonia/COPD exacerbation on chronic steroid Diabetes mellitus type 2 insulin-dependent with hyperglycemia Elevated troponin likely ischemic demand Bipolar disorder with schizophrenia Diabetic neuropathy GERD Brief History of Present Illness: 60-year-old female with history of COPD on chronic steroid, HIV, diabetes mellitus insulin-dependent, bipolar disorder, GERD, and diabetic neuropathy. Symptoms have been worsening. Some cough noted. She denies any fever. Patient presented with increasing shortness of breath. She denies any chest pain, nausea or vomiting. Symptoms became worse. She was sent from the senior living to the ER for further evaluation. In the ER patient was evaluated. On lab ABG showed pH of 7.33 with a CO2 of 62. Troponin 0 0.14 with a BNP 1892. White count 12.8, hemoglobin 14. Platelet count 158. Sodium 138, potassium 3.9. BUN of 12, creatinine 0.8 with a GFR of 61. Glucose 214. Chest x-ray showed COPD pattern. Recent results from senior living show recent Covid test negative. Repeat Covid test pending. Patient was placed on BiPAP. Symptoms have improved. Patient remained stable on BiPAP. Patient admitted for further evaluation and treatment. Hospital Course: No dyspnea secondary to acute respiratory failure with hypoxia/hypercapnia related to COVID-pneumonia and COPD exacerbation on chronic steroids. Patient was admitted for treatment. Her condition improved with IV steroids and COPD medication. Patient seen and evaluated by pulmonology. Her condition improved. Patient will return back to the senior living to continue her care. At discharge the patient will continue with prednisone 10 mg 1 pill twice daily for 7 days then 1 pill once daily for 7 days. The patient may continue with prednisone 10 mg daily. This can be weaned off over time with the help of pulmonology. At discharge she will also continue with her current COPD medicationAdvair 2 puffs twice daily, Spiriva 1 puff daily, and albuterol 2 puffs 3 times a day as needed for shortness of breath. Recommend follow-up with pulmonology in 1 to 2 weeks to follow-up his hospitalization. At discharge we will continue with CDC guidelines on COVID-19 including handwashing, facemask use and social distancing. At discharge she may continue with vitamin C 500 mg daily, vitamin D daily, melatonin 5 mg daily and Tessalon Perles 100 mg 3 times a day as needed for cough. Patient will return to the senior living to continue her care. Patient with diabetes mellitus type 2 insulin-dependent with hyperglycemia. Hemoglobin A1c 6.8. At discharge she will continue with her current regimen including Lantus 10 units subcu every night and Tradjenta 5 mg daily. Recommend to monitor blood sugar at least once daily. Recommend to maintain blood sugar less than 140 fasting and less than 200 after meals. Further adjustment in her insulin can be done at the senior living. Recommend to recheck hemoglobin A1c every 3 months to monitor progress. Further adjustment can be done by senior living physician. Patient had elevated troponin likely ischemic demand related to her COVID infection. Case discussed with cardiology. No intervention required. Patient can follow-up with cardiology as an outpatient. Patient with bipolar disorder and schizophrenia. Overall stable. At discharge she will continue with Cogentin 1 mg daily, buspirone 5 mg 1 pill 3 times a day, Depakote 125 mg 3 times a day, Risperdal 1 mg daily and Zoloft 100 mg daily. Patient also takes melatonin 5 mg at bedtime. Further adjustment can be done at the senior living. Patient with diabetic neuropathy. At discharge she may continue with gabapentin 300 mg 3 times a day. Patient with GERD. At discharge she may continue with Prilosec 10 mg daily. Patient with history of HIV. At discharge she may continue with her medication abacavir/dolugravir/lamivud 600/50/300 mg daily. Case discussed with son in detail. Son plans to consider switching to a different senior living in the future. Vital Signs/Physical Exam: Temp Pulse Resp BP Pulse Ox 98.2 F 80 18 100/55 L 94 12/15/21 08:31 12/15/21 08:31 12/15/21 08:31 12/15/21 08:31 12/15/21 08:31 General: Alert, In no apparent distress, Oriented x3, Cooperative HEENT: Atraumatic Neck: Supple Respiratory: Clear to auscultation bilaterally, Normal air movement, Other (Currently on room air) Cardiovascular: Normal pulses, Regular rate/rhythm Gastrointestinal: Normal bowel sounds, No tenderness, No masses, No rebound, No guarding Musculoskeletal: No erythema, No tenderness, No warmth Integumentary: No tenderness/swelling, No erythema, No warmth, No cyanosis Neurological: Normal speech, Normal strength at 5/5 x4 extr, Normal tone, Normal affect Laboratory Data at Discharge: WBC 6.60 K/uL (4.3-10.9) 12/12/21 05:10 Hgb 13.6 g/dL (12.0-15.0) 12/12/21 05:10 Hct 40.9 % (36.0-45.0) 12/12/21 05:10 Plt Count 162 K/uL (152-406) 12/12/21 05:10 PT 10.6 SECONDS (9.5-12.5) 12/05/21 05:59 INR 0.92 12/05/21 05:59 Sodium 141 mmol/L (136-145) 12/12/21 05:10 Potassium 3.6 mmol/L (3.5-5.1) 12/12/21 05:10 BUN 29 mg/dL (7-18) H 12/12/21 05:10 Creatinine 0.73 mg/dL (0.55-1.3) 12/12/21 05:10 Glucose 141 mg/dL (74-106) H 12/12/21 05:10 Magnesium 2.2 mg/dL (1.8-2.4) 12/12/21 05:10 Total Bilirubin 0.3 mg/dL (0.2-1.0) 12/08/21 05:01 AST 26 U/L (15-37) 12/08/21 05:01 ALT 43 U/L (12-78) 12/08/21 05:01 Alkaline Phosphatase 58 U/L (45-117) 12/08/21 05:01 Troponin I 0.04 ng/mL (0.0-0.045) 12/05/21 12:22 Triglycerides 189 mg/dL (<150) H 12/06/21 05:19 Cholesterol 166 mg/dL (<200) 12/06/21 05:19 HDL Cholesterol 36 mg/dL (40-60) L 12/06/21 05:19 Cholesterol/HDL Ratio 4.61 12/06/21 05:19 Home Medications: Abacavir/Dolutegravir/Lamivudi [Triumeq 600-50-300 mg Tablet] 1 tab PO DAILY 01/16/19 Cholecalciferol (Vitamin D3) [Vitamin D3] 2,000 unit PO DAILY 01/16/19 Gabapentin 300 mg PO TID 03/09/19 Benztropine Mesylate [Cogentin*] 1 mg PO DAILY #30 tab 09/25/19 Abacavir/Dolutegravir/Lamivudi [Triumeq 600-50-300 mg Tablet] 1 tab PO DAILY 12/06/21 Acetaminophen [Tylenol Extra Strength] 1 tab PO BID 12/06/21 Aspirin 1 tab PO DAILY 12/06/21 Buspirone HCl 1 tab PO TID 12/06/21 Divalproex Sodium [Depakote Sprinkle] 1 cap PO TID 12/06/21 Fluticasone/Salmeterol [Advair Hfa 115-21 Mcg Inhaler] 2 puff IH BID 12/06/21 Linagliptin [Tradjenta] 1 tab PO DAILY 12/06/21 Melatonin 1 tab PO BEDTIME 12/06/21 Mineral Oil/Petrolatum,White [Artificial Eye Lub 15-83% Oint] 1 gtt EACH EYE D AILY 12/06/21 Omeprazole 0.5 tab PO DAILY 12/06/21 Risperidone [Risperdal] 1 mg PO DAILY 12/06/21 Sertraline [Zoloft*] 1 tab PO DAILY 12/06/21 Tiotropium [Spiriva Handihaler*] 1 puff IH DAILY 12/06/21 Zinc 1 tab PO DAILY 12/06/21 glucagon HCL [Glucagon HCl] 1 mg IM SEECOM PRN 12/06/21 Albuterol Inhaler [Ventolin Inhaler*] 2 puff IH Q6H PRN #1 hfa.aer.ad 12/07/21 Albuterol Neb [Proventil 0.083% Neb Soln] 2.5 mg NEB [id number] PRN #60 amp 12/07/21 Benzonatate [Tessalon Perle*] 100 mg PO TID PRN #30 cap 12/07/21 levoFLOXacin [Levaquin*] 500 mg PO DAILY #5 tab 12/07/21 Ascorbic Acid [Vitamin C] 1 cap PO DAILY #30 12/15/21 Insulin Glargine,Hum.rec.anlog [Lantus] 10 units SQ BEDTIME #1 vial 12/15/21 predniSONE [Deltasone*] 10 mg PO SEECOM #21 tab 12/15/21 New Medications: predniSONE [Deltasone*] 10 mg PO SEECOM #21 tab Insulin Glargine,Hum.rec.anlog [Lantus] 10 units SQ BEDTIME #1 vial levoFLOXacin [Levaquin*] 500 mg PO DAILY #5 tab Albuterol Neb [Proventil 0.083% Neb Soln] 2.5 mg NEB [id number] PRN #60 amp PRN Reason: Shortness Of Breath Benzonatate [Tessalon Perle*] 100 mg PO TID PRN #30 cap PRN Reason: Cough Albuterol Inhaler [Ventolin Inhaler*] 2 puff IH Q6H PRN #1 hfa.aer.ad PRN Reason: Shortness Of Breath Ascorbic Acid [Vitamin C] 1 cap PO DAILY #30 Physician Discharge Instructions: No dyspnea secondary to acute respiratory failure with hypoxia/hypercapnia related to COVID-pneumonia and COPD exacerbation on chronic steroids. Patient was admitted for treatment. Her condition improved with IV steroids and COPD medication. Patient seen and evaluated by pulmonology. Her condition improved. Patient will return back to the senior living to continue her care. At discharge the patient will continue with prednisone 10 mg 1 pill twice daily for 7 days then 1 pill once daily for 7 days. The patient may continue with prednisone 10 mg daily. This can be weaned off over time with the help of pulmonology. At discharge she will also continue with her current COPD medicationAdvair 2 puffs twice daily, Spiriva 1 puff daily, and albuterol 2 puffs 3 times a day as needed for shortness of breath. Recommend follow-up with pulmonology in 1 to 2 weeks to follow-up his hospitalization. At discharge we will continue with CDC guidelines on COVID-19 including handwashing, facemask use and social distancing. At discharge she may continue with vitamin C 500 mg daily, vitamin D daily, melatonin 5 mg daily and Tessalon Perles 100 mg 3 times a day as needed for cough. Patient will return to the senior living to continue her care. Patient with diabetes mellitus type 2 insulin-dependent with hyperglycemia. Hemoglobin A1c 6.8. At discharge she will continue with her current regimen including Lantus 10 units subcu every night and Tradjenta 5 mg daily. Recommend to monitor blood sugar at least once daily. Recommend to maintain blood sugar less than 140 fasting and less than 200 after meals. Further adjustment in her insulin can be done at the senior living. Recommend to recheck hemoglobin A1c every 3 months to monitor progress. Further adjustment can be done by senior living physician. Patient had elevated troponin likely ischemic demand related to her COVID infection. Case discussed with cardiology. No intervention required. Patient can follow-up with cardiology as an outpatient. Patient with bipolar disorder and schizophrenia. Overall stable. At discharge she will continue with Cogentin 1 mg daily, buspirone 5 mg 1 pill 3 times a day, Depakote 125 mg 3 times a day, Risperdal 1 mg daily and Zoloft 100 mg daily. Patient also takes melatonin 5 mg at bedtime. Further adjustment can be done at the senior living. Patient with diabetic neuropathy. At discharge she may continue with gabapentin 300 mg 3 times a day. Patient with GERD. At discharge she may continue with Prilosec 10 mg daily. Patient with history of HIV. At discharge she may continue with her medication abacavir/dolugravir/lamivud 600/50/300 mg daily. Case discussed with son in detail. Son plans to consider switching to a different senior living in the future. Diet: AHA Activity: Fall precautions Followup: Deniz Fenton MD [ACTIVE - CAN ADMIT] - 1-2 Weeks (risk management analyst- call to schedule an appointment for follow up visit in 2 weeks ) Time spent managing pt's care (in minutes): 55
[2021-12-15] MEDS: ALBUTEROL 2.5 MG/3 ML NEB SOL NEB PRN (08:55)
[2021-12-15] MEDS: ARFORMOTEROL TARTRATE 15 MCG/2 ML VIAL.NEB NEB SCH (08:55)
[2021-12-15 12:03] VITALS: BP 144/65; TEMP 97.6; O2SAT 92
== END 2021-12-15 12:43 | DRG 177 ==
LOC: ER 05:45 → ERHOLD 07:17 → 4TH 13:08
PROVIDERS: ADMIT Family Medicine; ATTEND Family Medicine
DX: U07.1 COVID-19 (principal); J12.82 Pneumonia due to coronavirus disease 2019; J96.02 Acute respiratory failure with hypercapnia; J96.01 Acute respiratory failure with hypoxia; J44.1 Chronic obstructive pulmonary disease with (acute) exacerbation; I24.8 Other forms of acute ischemic heart disease; J44.0 Chronic obstructive pulmonary disease with (acute) lower respiratory infection; E11.65 Type 2 diabetes mellitus with hyperglycemia; F31.9 Bipolar disorder, unspecified; F20.9 Schizophrenia, unspecified; E11.40 Type 2 diabetes mellitus with diabetic neuropathy, unspecified; K21.9 Gastro-esophageal reflux disease without esophagitis; Z21 Asymptomatic human immunodeficiency virus [HIV] infection status; E78.5 Hyperlipidemia, unspecified; Z79.51 Long term (current) use of inhaled steroids
CPT/HCPCS: 36415; 71045; 80048; 80053; 80061; 80076; 81003; 81015; 82550; 82553; 82607; 82728; 82746; 82805; 82947; 83036; 83540; 83735; 83880; 84145; 84439; 84443; 84484; 85025; 85610; 86140; 87040; 87086; 87088; 93005; 94640; 94660; 97112; 97116; 97161; 97530; 99285; J1650; J2920; J7512; J7605; U0003

== ENCOUNTER 2023-07-07 10:20 | Emergency (ER) | payer OTHER ==
--- OUTSIDE RECORDS SUMMARY | 2023-07-07 10:44 | XMS REPORT | Continuity of Care Document ---
:1960 Author Organization [facility] t Address [address] [facility] [place] [address] Care Team Providers Name Role Phone [email or web address] Attending Clinician Unavailable PANDA_Luigi_Catie Attending Clinician Unavailable KNOW, DOES_NOT Attending Clinician Unavailable Shyam sEcudero Attending Clinician [phone] Nadeen Meyers Attending Clinician [phone] AWILDA HOOKER Attending Clinician Unavailable February Attending Clinician [phone] APNDA_Scarlett Attending Clinician Unavailable French Saldaña Attending Clinician Vasyl Corbin Attending Clinician Unavailable Husam Vital Attending Clinician [phone] Nkechi Montana Attending Clinician Unavailable Nkechi [place] CMA Attending Clinician Unavailable Gavi Em Attending Clinician Unavailable Desktop, [facility] Care Coordination Attending Clinician UnavailMarlee Pollard Attending Clinician Unavailable Nadeen Garcia Attending Clinician Unavailable Tai Britt Attending Clinician Unavailable Clarence Mcnamara Attending Clinician Unavailable Palmer Garcia Attending Clinician Unavailable Meka Montana Attending Clinician Unavailable Status, Fax Attending Clinician Unavailable Valentine Lucas Attending Clinician Unavailable Phi Pearce Attending Clinician Unavailable Sisi Obrien Attending Clinician Unavailable Luci Ríos Attending Clinician Unavailable Marcelle Rosas Attending Clinician Unavailable Ema Pillai Attending Clinician [phone] Molly Velazco Attending Clinician [phone] Richar Peng Attending Clinician Unavailable Leigha Dumont Attending Clinician Unavailable Verito Hugo Attending Clinician Unavailable Vanessa Zarate Attending Clinician Unavailable Jose Lui Attending Clinician Unavailable Angeles Cameron Attending Clinician Unavailable Luann Hugo Attending Clinician Unavailable Amanda Fonseca Attending Clinician Unavailable Iesha Lucas Attending Clinician Unavailable Bailee Cruz Attending Clinician Unavailable Beau Rodriguez Attending Clinician [phone] Shaye Boyd Attending Clinician Unavailable Polina Neal Attending Clinician Unavailable Charisma Lutz Attending Clinician Unavailable Zee Rodriguez Attending Clinician [phone] Cara Langston Attending Clinician Unavailable Baltazar Davison Attending Clinician Unavailable Malu Valladares Attending Clinician Unavailable Tara Haley Attending Clinician Unavailable Remy Perdomo Attending Clinician [phone] Chiara Diallo Attending Clinician Unavailable Dilma Hunt Attending Clinician [phone] Jo Valle Attending Clinician [phone] Odin Rinaldi Attending Clinician Unavailable Lexy Ward Attending Clinician Unavailable Sammie Sparks Attending Clinician [phone] Deidra Wells Attending Clinician Unavailable Elodia Cespedes Attending Clinician [phone] Atif Harris Attending Clinician Unavailable GC_BAHC_Todd_J Admitting Clinician Unavailable GC_BAHC_Spangler_G Admitting Clinician Unavailable Husam Vital MD Unavailable [phone] Payers Payer Name Policy Type Policy Number Effective Date Expiration Date S ariane [employer] P [id number] 2019 STAR+PLUS 00:00:00 Medicaid [employer] [place] - [id number] 2019 [facility]LY [facility] - 00:00:00 STAR PLUS - [facility] CARE (MEDICAID HMO) [employer] CI [id number] 2019 2020 [facility] STAR+PLUS 00:00:00 00:00:00 [facility] [id number] 2019 2019 [facility] STAR+PLUS 00:00:00 00:00:00 [facility] [id number] 2020 [facility] STAR+PLUS 00:00:00 00:00:00 [facility] [id number] 2016 2017 [facility] STAR+PLUS 00:00:00 00:00:00 [id number] 2016 2017 [facility] STAR+PLUS 00:00:00 00:00:00 [facility] [id number] 2015 2017 [facility] STAR+PLUS 00:00:00 00:00:00 Community Medicaid Health Problems Condition Condition Condition Status Onset Resolution Last Treating Co mments Source Name Details Category Date Date Treatment Clinician Date Schizoaffe Schizoaffe Problem Active P [facility] ctive ctive 08 Medical disorder, Disorder, 00:00: bipolar Bipolar 00 type Type Diarrhea Diarrhea Problem Active [facility] a 5-01 Medical 00:00: 00 Intermitte Intermitte Problem Active [facility] nt nt 3-15 Medical claudicati Claudicati 00:00: on on Hypomagnes Hypomagnes Problem Active [facility] emia emia 3-13 Medical 00:00: 00 Dysuria Dysuria Problem Active [facility] 3-13 Medical 00:00: 00 Type 2 Type 2 Problem Active [facility] diabetes Diabetes 3-13 Medica l mellitus Mellitus 00:00: with with 00 peripheral Peripheral angiopathy Angiopathy Vitamin D Vitamin D Problem Active Rachel via deficiency Deficiency 2-08 Me dical 00:00: 00 Schizophre Schizophre Problem Active [facility] bhupendra bhupendra 2-08 Medical 00:00: 00 Cough Cough Problem Active [facility] 2-08 Medical 00:00: 00 Coronary Coronary Problem Active [facility] atheroscle Atheroscle 1-29 Me dical rosis rosis 00:00: 00 Low blood Low Blood Problem Active Rachel via pressure Pressure 1-29 Medica l 00:00: 00 Irritant Irritant Problem Active [facility] contact Contact 1- Medical dermatitis Dermatitis 00:00: due to Due to 00 contact Contact with urine with Urine and/or And/or feces Feces Fatigue Fatigue Problem Active [facility] 1-29 Medical 00:00: 00 Urinary Urinary Problem Active [facility] incontinen Incontinen - Me dical ce ce 00:00: 00 Moderate Moderate Problem Active [facility] recurrent Recurrent 12-16 Medi lawrence major Major 00:00: depression Depression 00 Lives in a Lives in a Problem Active [facility] nursing Nursing 1- Medical home Home 00:00: 00 Recurrent Recurrent Problem Active 2021-11 Rachel via urinary Urinary 2-05 Medical tract Tract 00:00: infection Infection 00 Osteoarthr Osteoarthr Problem Active [facility] itis of itis of 09 Medical multiple Multiple 00:00: joints Joints 00 Sensorineu Sensorineu Problem Active [facility] ral ral 8-03 Medical hearing Hearing 00:00: loss, Loss, 00 bilateral Bilateral Walking Walking Problem Active [facility] disability Disability 8-03 Me dical 00:00: 00 Peripheral Peripheral Problem Active [facility] angiopathy Angiopathy 6-26 Me dical due to Due to 00:00: diabetes Diabetes 00 mellitus Mellitus Peripheral Peripheral Problem Active [facility] neuropathy Neuropathy 6-26 Me dical due to Due to 00:00: type 2 Type 2 00 diabetes Diabetes mellitus Mellitus Morbid Morbid Problem Active [facility] obesity Obesity 5-19 Medical 00:00: 00 Dementia Dementia Problem Active [facility] associated Associated 5-19 Me dical with with 00:00: another Another 00 disease Disease Mixed Mixed Problem Active [facility] hyperlipid Hyperlipid 5-19 Me dical emia due emia Due 00:00: to type 2 to Type 2 00 diabetes Diabetes mellitus Mellitus Secondary Secondary Problem Active [facility] via immune Immune 5-05 Medical deficiency Deficiency 00:00: disorder Disorder 00 Hypercoagu Hypercoagu Problem Active [facility] lability lability 5-05 Medica l state State 00:00: 00 Long-term Long-term Problem Active Rachel via current Current 5-05 Medical use of Use of 00:00: insulin Insulin 00 Opioid Opioid Problem Active [facility] dependence Dependence 5-05 Me dical with with 00:00: current Current 00 use Use Multiple Multiple Problem Active [facility] complicati Complicati 5-05 Me dical ons due to ons Due to 00:00: type 2 Type 2 00 diabetes Diabetes mellitus Mellitus Hearing Hearing Problem Active [facility] loss Loss 4-14 Medical 00:00: 00 Loss of Loss of Problem Active [facility] teeth Teeth 4-14 Medical 00:00: 00 Gastroesop Gastroesop Problem Active [facility] hageal hageal 4-14 Medical reflux Reflux 00:00: disease Disease 00 Tobacco Tobacco Problem Active [facility] dependence Dependence 4-14 Me dical with with 00:00: current Current 00 use Use Vitamin Vitamin Problem Active [facility] deficiency Deficiency 4-13 Me dical 00:00: 00 Chronic Chronic Problem Active [facility] pain Pain 4-13 Medical syndrome Syndrome 00:00: 00 Chronic Chronic Problem Active [facility] obstructiv Obstructiv 4-13 Me dical e lung e Lung 00:00: disease Disease 00 Constipati Constipati Problem Active [facility] on on 4-13 Medical 00:00: 00 Degenerati Degenerati Problem Active [facility] ve joint ve Joint 4-13 Medica l disease Disease 00:00: involving Involving 00 multiple Multiple joints Joints 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 Immunodefi 4-13 Me dical ciency ciency 00:00: virus Virus 00 infection Infection NONSPEC Condition Active 2020-02-07 DEEJAY Vital RXN CMI 3-12 10:56:38 Husam Adult MSR G-IFN 00:00: Medicin ANTIG RSPN 00 e NO ACT TB DIZZINESS Condition Active 2017-10-13 DEEJAY Vital 8 09:19:20 Husam Adult 00:00: Medicin 00 e Hyperlipid Condition Active 2020-02-07 DEEJAY Vital emia 7- 10:44:35 Husam Adult 00:00: Medicin 00 e Preventive Condition [id number]- 09:19:20 Husam Adult care 00:00: Medicin 00 e Screening, Condition Active 2017-10-13 [place]ra[place] [facility] [place] 8- 09:19:20 Husam Adult cancer 00:00: Medicin 00 e Hip Condition Active 2016-07-07 uDy Viatl [facility] arthralgia 4 08:45:03 Husam Adul t 00:00: Medicin 00 e COPD Condition Active 2020-02-07 Duy Vital 4- 10:44:35 Husam Adult 00:00: Medicin 00 e FLU FLU Diagnosis Active [id number] Mem oria SYMPTOMS SYMPTOMS 01-17 12:41:00 l Active 00:00: [place] 11/16/2011 00 [place] Diabetes Diabetes Problem Active 2022-01-27 Memoria mellitus mellitus 22:30:16 l (disorder) (disorder) He rmann Active Problem 01/27/2022 [facility] HIV HIV Problem Active 2022-01-27 Memor ia positive positive 22:30:16 l (finding) (finding) Herm nolvia Active Problem 01/27/2022 [facility] Tremor Tremor Problem Active 2022-01-27 Miguelito susan (finding) (finding) 22:30:16 l Active [place] Problem 01/27/2022 [facility] HIV Condition Active 2020-02-07 Zahraa, hussein 15 0 [facility] [place]FECTION 10:44:35 Husam Adult Medicin e Diabetes Condition Active 2020-02-07 [facility] mellitus, 10:44:35 Husam Adult type II Medicin e Hysterecto Condition Active 2016-07-07 [facility] my, 08:55:52 Husam Adult History of Medici n e SCHIZOPHRE Condition [facility]07[facility] Husam Adult Medicin e Closed Closed Problem Active Common fracture fracture [facility] neck of of neck of [facility] right foot Me dical with with Center routine routine healing healing Closed Closed Problem Active Common fracture fracture Spirit of base of of base of - [facility] fifth fifth St metatarsal metatarsal Sienna kes bone of bone of Medical right foot right foot Ce nter at at metaphysea metaphysea l-diaphyse l-diaphyse al al junction, junction, initial initial encounter encounter Pain, Pain, Diagnosis Active Common joint, joint, Spirit foot, foot, - [facility] right right [facility] Closed Closed Diagnosis Active Common fracture fracture Spirit of base of of base of - [facility] fifth fifth St metatarsal metatarsal Sienna kes bone of bone of Medical right foot right foot Ce nter at at metaphysea metaphysea l-diaphyse l-diaphyse al al junction junction with with routine routine healing, healing, subsequent subsequent encounter encounter Closed Closed Problem Active Common fracture fracture Spirit of neck of of neck of - [facility] metatarsal metatarsal St bone of bone of [facility] right right [facility] foot, foot, Center initial initial encounter encounter Allergies, Adverse Reactions, Alerts Allergy Allergy Status Severity Reaction(s) Onset Inactive Treating Comm ents Source Name Type Date Date Clinician codeine DA Active [facility] 04-19 Clear 00:00: [place] 00 [facility] penicill DA Active [facility] in V 04-19 Clear 00:00: Choe 00 [facility] CODEINE Drug Active [facility] allergy Criticali 4-21 Adult (disorde ty 00:00: Medicin r) 00 e PENICILL Drug Active [facility] IN allergy Criticali 4-21 Adult (disorde ty 00:00: Medicin r) 00 e penicill Adverse Active Info Not Commo n in Reaction Available [facility] codeine Adverse Active Info Not Common Reaction Available [facility] penicill penicill Active Memori a in in l Oscar codeine codeine Active Memoria l Oscar PENICILL Allergy Active [facility] INS to Medical substan e Social History Social Habit Start Date Stop Date Quantity Comments Source time of call 2021-07-17 2021-07-17 07/17/2021 11:37 [facility] 11:36:30 11:36:30 [facility] drug use 2020-12-02 2020-12-02 Previously [facility] 10:39:40 10:39:40 [facility] alcohol use 2020-12-02 2020-12-02 Previously [facility] 10:39:40 10:39:40 [facility] smoking, advice to 2020-12-02 2020-12-02 Yes [facility] quit 10:39:40 10:39:40 [facility] sexual orientation 2020-12-02 2020-12-02 Heterosexual [facility] [facility] 10:39:40 10:39:40 [facility] social history E&M 2020-12-02 2020-12-02 . Not [place] 10:39:40 10:39:40 homeless. Born in [facility]. City: On license of [facility]. State: [place]. Not employed. Gender of partner(s): male. Sexually Active: No. Sex at : female. social history 2020-12-02 2020-12-02 reviewed today [facility] reviewed E&M 10:39:40 10:39:40 [facility] is there any chance 2020-12-02 2020-12-02 No Legac y that you could be 10:39:40 10:39:40 [facility] ? Health tobacco use 2020-12-02 2020-12-02 Currently [facility] (cigarettes, cigar, 10:39:40 10:39:40 Commu nity chew, pipe) Health assessment of health 2020-12-02 2020-12-02 Limited [facility] literacy (NCQA [facility] 10:39:40 10:39:40 Commu nity 2014 Standards, Health 3C10) PHQ2 Questionairre 2020-12-02 2020-12-02 [facility] Score 10:39:40 10:39:40 [facility] albumin, serum 2020-11-18 2020-11-18 4.0 g/dL [facility] 10:28:00 10:28:00 [facility] passive cigarette 2020-02-07 2020-02-07 No [facility] smoke exposure 10:26:43 10:26:43 [facility] if the patient is 2020-02-07 2020-02-07 No [facility] using/has used a 10:26:43 10:26:43 Communit y vaping item, Health Current, Former, Never Used, Not asked cigarettes, number 2017-06-29 2017-06-29 5-6 [facility] smoked per day 08:33:26 08:33:26 [facility] cigar use 2016-08-31 2016-08-31 No [facility] 12:23:52 12:23:52 [facility] age when patient 2016-08-31 2016-08-31 [facility] began smoking 12:23:52 12:23:52 [facility] cigarette use 2016-08-31 2016-08-31 Yes [facility] 12:23:52 12:23:52 [facility] sex at 2015-03-18 2015-03-18 F [facility] 10:06:41 10:06:41 [facility] What type of drug 2015-03-18 2015-03-18 cocaine [facility] was used 10:06:41 10:06:41 [facility] patient considered 2015-03-18 2015-03-18 No [facility] to be homeless 10:06:41 10:06:41 [facility] Smoking Status Start Date Stop Date Source Heavy Tobacco Smoker Irwin bravo Social History 2020-12-17 00:35:42 Sarthak guy Medications Ordered Filled Start Stop Current Ordering Indication Dosage Frequency Signature Comments Components Source Medication Medication Date Date Medication? Clinician (SIG) Name Name sertraline 2020-11 Yes 100 mg = 1 M emoria 100 mg oral 2-02 tab, PO, l tablet 17:04: Daily, # [place] 00 30 tab, 1 Refill(s) sertraline 2020-11 Yes 100 mg = 1 M emoria 100 mg oral 2-02 tab, PO, l tablet 17:04: Daily, # [place] 00 30 tab, 1 Refill(s) sertraline 2020-11 Yes 100 mg = 1 M emoria 100 mg oral 2-02 tab, PO, l tablet 17:04: Daily, # [place] 00 30 tab, 1 Refill(s) ZOLOFT Yes 1{Table 1xD 1 by mouth [place] (SERTRALINE 1-06 t} Every Communi HCL) 50 MG 00:00: Morning ty TABS 00 Health Service s (BUSPIRONE Yes 1{Table 3xD 1 by mouth [facility] HCL) 5 MG 1-06 t} tid Communi TABS 00:00: ty 00 Health Service s ADVAIR Yes 1 puff [facility] DISKUS -06 twice Communi (FLUTICASON 00:00: daily ty E-SALMETERO 00 Health L) 250-50 MCG/DOSE AEPB VITAMIN D3 Yes [facility] (CHOLECALCI 1-06 Communi FEROL TABS) 00:00: ty TABS 00 Health Service s TRADJENTA Yes 1{Table 1xD 1 Every [place] (LINAGLIPTI 1-06 t} Day Communi N) 5 MG 00:00: ty TABS 00 Health Service s (LORATADINE Yes 1{Table 1xD 1 By Mouth [facility] ) 10 MG 1-06 t} once a day Commun i TABS 00:00: ty 00 Health Service s HUMALOG Yes sliding [facility] (INSULIN 1-06 scale Communi LISPRO) 100 00:00: ty UNIT/ML 00 Health SOLN (LACTULOSE) Yes 2 tbsp (30 [facility] 10 GM/15ML 1-06 mL) three Comm uni SOLN 00:00: times a ty 00 day as Health needed for Service constipati s on ADVAIR Yes 1 puff [facility] DISKUS -06 [facility] daily ty MCG/DOSE 00 Health INHALATION Service AEROSOL s POWDER BREATH ACTIVATED HUMALOG 100 Yes sliding Leg acy UNIT/ML -06 [facility] SUBC[facility]OU 00:00: ty S SOLUTION 00 Health Service s Fluticasone 2019-11 Yes NASAL, Miguelito susan propionate 1-19 Daily, 0 l 0.05 21:07: Refill(s) Oscar MG/ACTUAT 00 Metered Dose Nasal Nocate[place] [Flonase] Fluticasone 2019-11 Yes NASAL, Miguelito susan propionate 1-19 Daily, 0 l 0.05 21:07: Refill(s) [place] MG/ACTUAT 00 Metered Dose Nasal [place] [Flonase] gabapentin 2019-11 Yes 300 mg = 1 M emoria 300 MG Oral 1-19 cap, PO, l Capsule 21:07: TID, # 90 Ebony nn 00 cap, 0 Refill(s) Glucagon 2019-11 Yes ONCE, 0 Memori a 1-19 Refill(s) l 21:07: [place] 00 Insulin 2019-11 Yes SUB-Q, Memoria Lispro 100 1-19 TID-Before l UNT/ML 21:07: Meals, 0 [place] Injectable 00 Refill(s) Solution [Humalog] Loperamide 2019-11 [...] tab, PO, l Tablet 21:07: Daily, 0 [place] 00 Refill(s) Spiriva 2019-11 Yes 18 [facility]oria HandiHaler 1-19 microgram, l 21:07: INHALATION [place] 00 , Daily, 0 Refill(s) Linagliptin 2019-11 Yes 5 mg = 1 Me moria 5 MG Oral 1-19 tab, PO, l Tablet 21:07: Daily, 0 [place] [Tradjenta] 00 Refill(s) tramadol 2019-11 Yes 50 mg = 1 Miguelito susan hydrochlori 1-19 tab, PO, l de 50 MG 21:07: [...] 00 Lamivudine 300 MG Oral Tablet [Triumeq] gabapentin 2019-11 Yes 300 mg = 1 M emoria 300 MG Oral 12-16 cap, PO, l Capsule 21:07: TID, # 90 Ebony nn 00 cap, 0 Refill(s) Glucagon 2019-11 Yes ONCE, 0 Memori a 12-16 Refill(s) l 21:07: [place] 00 Insulin 2019-11 Yes SUB-Q, Memoria Lispro 100 12-16 TID-Before l UNT/ML 21:07: Meals, 0 [facility] Injectable 00 Refill(s) Solution [Humalog] Loperamide 2019-11 Yes 2 mg = 1 Mem oria Hydrochlori - tab, PO, l de 2 MG 21:07: Q4H, PRN [place] n Oral Tablet 00 Loose [Imodium] Stools, # 60 tab, 0 Refill(s) Lactulose 2019-11 Yes 20 gm = 30 Me moria 667 MG/ML - mL, PO, l Oral 21:07: TID, PRN [place] Solution 00 constipati on, # 240 mL, 0 Refill(s) Loratadine 2019-11 Yes 10 mg = 1 Me moria 10 MG Oral -19 tab, PO, l Tablet 21:07: Daily, 0 [place] 00 Refill(s) Spiriva 2019-11 Yes 18 Memoria HandiHaler -19 microgram, l 21:07: INHALATION [place] 00 , Daily, 0 Refill(s) Linagliptin 2019-11 Yes 5 mg = 1 Me moria 5 MG Oral -19 tab, PO, l Tablet 21:07: Daily, 0 [place] [Tradjenta] 00 Refill(s) tramadol 2019-11 Yes 50 mg = 1 Miguelito susan hydrochlori -19 tab, PO, l de 50 MG 21:07: BID, # 30 Herm nolvia Oral Tablet 00 tab, 0 Refill(s) Ondansetron 2019-11 Yes 4 mg = 1 Me moria 4 MG Oral -19 tab, PO, l Tablet 21:07: Q8H, PRN [place] [Zofran] 00 Nausea/vom iting, # 30 tab, [...] 00 Lamivudine 300 MG Oral Tablet [Triumeq] Fluticasone 2019-11 Yes NASAL, Miguelito susan propionate 12-16 Daily, 0 l 0.05 21:07: Refill(s) [place] MG/ACTUAT 00 Metered Dose Nasal [place] [Flonase] gabapentin 2019-11 Yes 300 mg = 1 M emoria 300 MG Oral 19 cap, PO, l Capsule 21:07: TID, # 90 Ebony nn 00 cap, 0 Refill(s) Glucagon 2019-11 Yes ONCE, 0 Memori a 19 Refill(s) l 21:07: [place] 00 Insulin 2019-11 Yes SUB-Q, Memoria Lispro 100 -19 TID-Before l UNT/ML 21:07: Meals, 0 [place] Injectable 00 Refill(s) Solution [Humalog] Loperamide 2019-11 Yes 2 mg = 1 Mem oria Hydrochlori -19 tab, PO, l de 2 MG 21:07: [...] tab, PO, l Tablet 21:07: Daily, 0 [place] 00 Refill(s) Spiriva 2019-11 Yes 18 Memoria HandiHaler -19 microgram, l 21:07: INHALATION [place] 00 , Daily, 0 Refill(s) Linagliptin 2019-11 Yes 5 mg = 1 Me moria 5 MG Oral -19 tab, PO, l Tablet 21:07: Daily, 0 [place] [Tradjenta] 00 Refill(s) tramadol 2019-11 Yes 50 [...] Advair 2019-11 Yes 1 Memoria Diskus 250 - inhalation l mcg-50 mcg 20:49: , [place] inhalation 00 INHALATION powder , BID, 0 Refill(s) Aspirin 81 2019-11 Yes 81 mg = 1 Me moria MG Enteric 1-19 tab, PO, l Coated 20:49: Daily, # [place] Tablet 00 90 tab, 3 Refill(s) benztropine 2019-11 Yes 1 mg = 1 Me moria 1 mg oral 1-19 tab, PO, l tablet 20:49: Daily, 0 [place] 00 Refill(s) busPIRone 5 2019-11 Yes 5 mg = 1 Me moria mg oral 1-19 tab, PO, l tablet 20:49: TID, 0 [place] 00 Refill(s) Divalproex 2019-11 Yes 250 mg = 2 M emoria Sodium 125 1-19 cap, PO, l MG Enteric 20:49: TID, 0 Ebony nn Coated 00 Refill(s) Capsule Advair 2019-11 Yes 1 Memoria Diskus 250 [...] tab, PO, l tablet 20:49: Daily, 0 [place] 00 Refill(s) busPIRone 5 2019-11 Yes 5 mg = 1 Me moria mg oral 1-19 tab, PO, l tablet 20:49: TID, 0 [place] 00 Refill(s) Divalproex 2019-11 Yes 250 mg = 2 M emoria Sodium 125 1-19 cap, PO, l MG Enteric 20:49: TID, 0 Ebony nn Coated 00 Refill(s) Capsule Advair 2019-11 Yes 1 Memoria Diskus 250 1-19 inhalation l mcg-50 mcg 20:49: , Oscar inhalation 00 INHALATION powder , BID, 0 Refill(s) Aspirin 81 2019-11 Yes 81 mg = 1 Me moria MG Enteric 1-19 tab, PO, l Coated 20:49: Daily, # [place] Tablet 00 90 tab, 3 Refill(s) benztropine 2019-11 Yes 1 mg = 1 Me moria 1 mg oral 1-19 tab, PO, l tablet 20:49: Daily, 0 [place] 00 Refill(s) busPIRone 5 2019-11 Yes 5 mg = 1 Me moria mg oral 1-19 tab, PO, l tablet 20:49: TID, 0 [place] 00 Refill(s) Divalproex 2019-11 Yes 250 mg = 2 M emoria Sodium 125 1-19 cap, PO, l MG Enteric 20:49: TID, 0 Ebony nn Coated 00 Refill(s) Capsule (BUPROPION 2020- No 1{Table 2xD 1 By Mouth [facility] HCL) 75 MG 7-11 01-06 t} Twice a Commu ni TABS 00:00: 00:00 Day ty 00 :00 Health Service s (TRAMADOL Yes 1{Table 3xD 1 Three [place] HCL) 50 MG 3-14 t} Times a Commun i TABS 00:00: Day ty Health Service s TRILEPTAL 2018- Yes 1{Table 2xD 1 Twice a [facility] (OXCARBAZEP 3-14 t} Day Communi INE) 150 MG 00:00: ty TABS Health Service s RISPERDAL 2018- Yes 1{Table 1xD 1 by mouth [facility] (RISPERIDON 3-14 t} once a day Co mmuni E) 1 MG 00:00: ty TABS 00 Health Service s LANTUS Yes 24 U sc [facility] (INSULIN 3-14 Every pm Communi GLARGINE) 00:00: ty 100 UNIT/ML 00 Health [facility] Service s (GABAPENTIN Yes 1{Capsu 3xD 1 by mouth [facility] ) 300 MG 3-14 le} three Communi CAPS 00:00: times a ty 00 day Health Service s DEPAKOTE Yes 2 by mouth Leg acy (DIVALPROEX 3-14 twice a Commu ni SODIUM) 250 00:00: day ty MG TBEC 00 Health Service s (ASPIRIN) 2018- Yes 1 by mouth [place] 81 MG TBEC 3-14 every day Comm uni 00:00: ty Health Service s FANAPT 2020- No 1{Table 2xD 1 Twice a [place] (ILOPERIDON 3-14 01-06 t} Day Communi E) 8 MG 00:00: 00:00 ty TABS 00 :00 Health Service s BREO 2020- No 1 [facility] ELLIPTA 3-14 12-03 inhalation Commu ni (FLUTICASON 00:00: 00:00 Every Day ty E 00 :00 Health FUROATE-BAMBI Service ANTEROL) s 100-25 MCG/ACT AEPB (MECLIZINE 2018- No 1 by mouth [facility] HCL) 25 MG 06-29 3 times a Com mychal TABS 00:00: 00:00 day as ty 00 :00 needed for Health dizziness Service s (NICOTINE) 2018- No [facility] 14-7 12-16 Communi MG/24HR KIT 00:00: 00:00 ty 00 :00 Health Service s (NAPROXEN) 2018- No 1 by mouth [facility] 500 MG TABS 03-24 twice a Comm uni 00:00: 00:00 day as ty 00 :00 needed for Health pain Service s BENZTROPINE Yes [facility] MESYLATE 03-08 Communi (BENZTROPIN 00:00: ty E MESYLATE 00 Health TABS) TABS Service s LIPITOR 2020- No [facility] (ATORVASTAT 03-08 Communi IN CALCIUM 00:00: 00:00 ty TABS) TABS 00 :00 Health Service s DULOXETINE 2020- No [facility] HCL 03-08 Communi (DULOXETINE 00:00: 00:00 ty HCL CPEP) 00 :00 Health CPEP Service s OMEPRAZOLE 2018- No [facility] CPDR 03-08 Communi 00:00: 00:00 ty 00 :00 Health Service s SEROQUEL 2018- No [facility] (QUETIAPINE 03-08 Communi FUMARATE 00:00: 00:00 ty TABS) TABS 00 :00 Health Service s VENLAFAXINE 2018- No [place] HCL 03-08 [facility] (VENLAFAXIN 00:00: 00:00 ty E HCL TABS) 00 :00 Health TABS Service s TRIUMEQ Yes Husam 1 Take 1 [facility] (ABACAVIR-D 03-18 [facility] BERRY tablet by Communi OLUTEGRAVIR 00:00: mouth once ty -LAMIVUD) 00 a day with Heal th [id number] or without Ser vice MG TABS food s SPIRIVA Yes [facility] Inhale 1 [facility] HANDIHALER 03-18 [place] BERRY cap Every [facility]i (TIOTROPIUM 00:00: Day ty BROMIDE 00 Health MONOHYDRATE Service ) 18 MCG s CAPS PROAIR HFA 2020- No Husam 2 puffs [facility] ac[facility] (ALBUTEROL 03-18 [place] every 4 - Communi SULFATE) 00:00: 00:00 6 hours as ty 108 (90 00 :00 needed Health Base) MCG/ACT AERS PROAIR HFA 2020- No 2 puffs [facility] 108 (90 03-18 every 4 - Commun i BASE) 00:00: 00:00 6 hours as ty MCG/ACT 00 :00 needed Health INHALATION Service AEROSOL s SOLUTION Advair Advair No Advair [facility] Diskus 500 Diskus 500 Diskus 500 Medical mcg-50 mcg-50 mcg-50 mcg/dose mcg/dose mcg/dose powder for powder for powder for inhalation inhalation inhalation Inhale 1 Inhale 1 Inhale 1 puff twice puff twice puff twice a day by a day by a day by inhalation inhalation inhalation route for route for route for 30 days. 30 days. 30 days. Artificial Artificial No 1applic Q1D Artificial [facility] Medical Lubricant Lubricant ) Lubricant 83 %-15 % 83 %-15 % 83 %-15 % ointment ointment ointment Apply 1 Apply 1 Apply 1 application application applicatio every day every day n every by by day by ophthalmic ophthalmic ophthalmic route. route. route. aspirin 81 aspirin 81 No 1 Q1D aspirin 81 [facility] mg mg mg Medical tablet,dago tablet,dago tablet,del yed release yed release ayed Take 1 Take 1 release tablet tablet Take 1 every day every day tablet by oral by oral every day route. route. by oral route. atorvastati atorvastati No atorvastat [facility] n 40 mg n 40 mg in 40 mg Medic al tablet Take tablet Take tablet 1 tablet 1 tablet Take 1 every day every day tablet by oral by oral every day route. route. by oral route. benztropine benztropine No benztropin [facility] 1 mg tablet 1 mg tablet e 1 mg Medical Take 1 Take 1 tablet tablet tablet Take 1 every day every day tablet by oral by oral every day route for route for by oral 30 days. 30 days. route for 30 days. Biofreeze Biofreeze No Biofreeze [facility] (menthol) 5 (menthol) 5 (menthol) Medical % topical % topical 5 % gel every 4 gel every 4 topical hours as hours as gel every needed needed 4 hours as needed buspirone 5 buspirone 5 No buspirone [facility] mg tablet mg tablet 5 mg Medic al Take 1 Take 1 tablet tablet 3 tablet 3 Take 1 times a day times a day tablet 3 by oral by oral times a route for route for day by 30 days. 30 days. oral route for 30 days. diclofenac diclofenac No diclofenac [facility] 1 % topical 1 % topical 1 % M edical gel gel topical gel divalproex divalproex No divalproex [facility] 125 mg 125 mg 125 mg Medical capsule,del capsule,del capsule,de ayed ayed layed release release release sprinkle sprinkle sprinkle Take 2 Take 2 Take 2 capsules 3 capsules 3 capsules 3 times a day times a day times a by oral by oral day by route for route for oral route 30 days. 30 days. for 30 days. ergocalcife ergocalcife No ergocalcif [facility] rol rol black Medical (vitamin (vitamin (vitamin D2) 1,250 D2) 1,250 D2) 1,250 mcg (50,000 mcg (50,000 mcg unit) unit) (50,000 capsule capsule unit) capsule gabapentin gabapentin No gabapentin [facility] 300 mg 300 mg 300 mg Medical capsule capsule capsule Take 1 Take 1 Take 1 capsule 3 capsule 3 capsule 3 times a day times a day times a by oral by oral day by route for route for oral route 30 days. 30 days. for 30 days. GlucaGen GlucaGen No GlucaGen Rachel via HypoKit 1 HypoKit 1 HypoKit 1 Medical mg mg mg Injection Injection Injection as needd as needd as needd PRN PRN PRN ipratropium ipratropium No ipratropiu [facility] 0.5 0.5 m 0.5 Medical mg-albutero mg-albutero mg-albuter l 3 mg (2.5 l 3 mg (2.5 ol 3 mg mg base)/3 mg base)/3 (2.5 mg mL mL base)/3 mL nebulizatio nebulizatio nebulizati n soln n soln on soln Inhale 3 mL Inhale 3 mL Inhale 3 every 6 every 6 mL every 6 hours by hours by hours by inhalation inhalation inhalation route as route as route as needed for needed for needed for 7 days. 7 days. 7 days. Lantus Lantus No Lantus [facility] U-100 U-100 U-100 Medical Insulin 100 Insulin 100 Insulin unit/mL unit/mL 100 subcutaneou subcutaneou unit/mL s solution s solution subcutaneo Inject 24 Inject 24 us units every units every solution day by day by Inject 24 sub-q route sub-q route units at bedtime at bedtime every day for 28 for 28 by sub-q days. days. route at bedtime for 28 days. melatonin 5 melatonin 5 No 1capsul Q1D melatonin [facility] mg capsule mg capsule e(s) 5 mg Med ical Take 1 Take 1 capsule capsule capsule Take 1 every day every day capsule by oral by oral every day route at route at by oral bedtime. bedtime. route at bedtime. Miralax 17 Miralax 17 No 1packet Q1D Miralax 17 [facility] gram oral gram oral (s) gram oral Medical powder powder powder packet Take packet Take packet 1 packet 1 packet Take 1 every day every day packet by oral by oral every day route. route. by oral route. nystatin nystatin No nystatin [facility] via 100,000 100,000 100,000 Medica l unit/gram unit/gram unit/gram topical topical topical ointment ointment ointment risperidone risperidone No risperidon [facility] 1 mg tablet 1 mg tablet e 1 mg Medical Take 1 Take 1 tablet tablet tablet Take 1 every day every day tablet by oral by oral every day route for route for by oral 30 days. 30 days. route for 30 days. sertraline sertraline No sertraline [facility] 100 mg 100 mg 100 mg Medical tablet Take tablet Take tablet 1 tablet 1 tablet Take 1 every day every day tablet by oral by oral every day route. route. by oral route. Spiriva Spiriva No Spiriva [facility] with with with Medical HandiHaler HandiHaler HandiHaler 18 mcg and 18 mcg and 18 mcg and inhalation inhalation inhalation capsules capsules capsules Inhale 1 Inhale 1 Inhale 1 capsule capsule capsule every day every day every day by by by inhalation inhalation inhalation route for route for route for 30 days. 30 days. 30 days. Tradjenta 5 Tradjenta 5 No Tradjenta [facility] mg tablet mg tablet 5 mg Medic al Take 1 Take 1 tablet tablet tablet Take 1 every day every day tablet by oral by oral every day route for route for by oral 30 days. 30 days. route for 30 days. tramadol 50 tramadol 50 No tramadol [facility] mg tablet mg tablet 50 mg Medi lawrence Take 2 Take 2 tablet tablets tablets Take 2 every 12 every 12 tablets hours by hours by every 12 oral route oral route hours by for 30 for 30 oral route days. days. for 30 days. Triumeq 600 Triumeq 600 No 1 Q1D Triumeq [facility] mg-50 mg-50 600 mg-50 Medical mg-300 mg mg-300 mg mg-300 mg tablet Take tablet Take tablet 1 tablet 1 tablet Take 1 every day every day tablet by oral by oral every day route. route. by oral route. Tylenol Tylenol No 1 BID Tylenol [facility] Extra Extra Extra Medical Strength Strength Strength 500 mg 500 mg 500 mg tablet Take tablet Take tablet 1 tablet 1 tablet Take 1 twice a day twice a day tablet by oral by oral twice a route. route. day by oral route. zinc zinc No 1capsul Q1D zinc [facility] sulfate 50 sulfate 50 e(s) sulfate 50 Medical mg zinc mg zinc mg zinc (220 mg) (220 mg) (220 mg) capsule capsule capsule Take 1 Take 1 Take 1 capsule capsule capsule every day every day every day by oral by oral by oral route. route. route. Advair Advair No Advair [facility] Diskus 500 Diskus 500 Diskus 500 Medical mcg-50 mcg-50 mcg-50 mcg/dose mcg/dose mcg/dose powder for powder for powder for inhalation inhalation inhalation Inhale 1 Inhale 1 Inhale 1 puff twice puff twice puff twice a day by a day by a day by inhalation inhalation inhalation route for route for route for 30 days. 30 days. 30 days. Artificial Artificial No 1applic Q1D Artificial [facility] Medical Lubricant Lubricant ) Lubricant 83 %-15 % 83 %-15 % 83 %-15 % ointment ointment ointment Apply 1 Apply 1 Apply 1 application application applicatio every day every day n every by by day by ophthalmic ophthalmic ophthalmic route. route. route. aspirin 81 aspirin 81 No 1 Q1D aspirin 81 [facility] mg mg mg Medical tablet,dago tablet,dago tablet,del yed release yed release ayed Take 1 Take 1 release tablet tablet Take 1 every day every day tablet by oral by oral every day route. route. by oral route. atorvastati atorvastati No atorvastat [facility] n 40 mg n 40 mg in 40 mg Medic al tablet Take tablet Take tablet 1 tablet 1 tablet Take 1 every day every day tablet by oral by oral every day route. route. by oral route. benztropine benztropine No benztropin [facility] 1 mg tablet 1 mg tablet e 1 mg Medical Take 1 Take 1 tablet tablet tablet Take 1 every day every day tablet by oral by oral every day route for route for by oral 30 days. 30 days. route for 30 days. Biofreeze Biofreeze No Biofreeze [facility] (menthol) 5 (menthol) 5 (menthol) Medical % topical % topical 5 % gel every 4 gel every 4 topical hours as hours as gel every needed needed 4 hours as needed buspirone 5 buspirone 5 No buspirone [facility] mg tablet mg tablet 5 mg Medic al Take 1 Take 1 tablet tablet 3 tablet 3 Take 1 times a day times a day tablet 3 by oral by oral times a route for route for day by 30 days. 30 days. oral route for 30 days. diclofenac diclofenac No diclofenac [facility] 1 % topical 1 % topical 1 % M edical gel gel topical gel divalproex divalproex No divalproex [facility] 125 mg 125 mg 125 mg Medical capsule,del capsule,del capsule,de ayed ayed layed release release release sprinkle sprinkle sprinkle Take 2 Take 2 Take 2 capsules 3 capsules 3 capsules 3 times a day times a day times a by oral by oral day by route for route for oral route 30 days. 30 days. for 30 days. ergocalcife ergocalcife No ergocalcif [facility] rol rol black Medical (vitamin (vitamin (vitamin D2) 1,250 D2) 1,250 D2) 1,250 mcg (50,000 mcg (50,000 mcg unit) unit) (50,000 capsule capsule unit) capsule fluticasone fluticasone No fluticason [facility] propionate propionate e Med ical 50 50 propionate mcg/actuati mcg/actuati 50 on nasal on nasal mcg/actuat spray,suspe spray,suspe ion nasal nsion nsion spray,susp ension gabapentin gabapentin No gabapentin [facility] 300 mg 300 mg 300 mg Medical capsule capsule capsule Take 1 Take 1 Take 1 capsule 3 capsule 3 capsule 3 times a day times a day times a by oral by oral day by route for route for oral route 30 days. 30 days. for 30 days. GlucaGen GlucaGen No GlucaGen Rachel via HypoKit 1 HypoKit 1 HypoKit 1 Medical mg mg mg Injection Injection Injection as needd as needd as needd PRN PRN PRN ipratropium ipratropium No ipratropiu [facility] 0.5 0.5 m 0.5 Medical mg-albutero mg-albutero mg-albuter l 3 mg (2.5 l 3 mg (2.5 ol 3 mg mg base)/3 mg base)/3 (2.5 mg mL mL base)/3 mL nebulizatio nebulizatio nebulizati n soln n soln on soln Inhale 3 mL Inhale 3 mL Inhale 3 every 6 every 6 mL every 6 hours by hours by hours by inhalation inhalation inhalation route as route as route as needed for needed for needed for 7 days. 7 days. 7 days. lactulose lactulose No lactulose [facility] 10 gram/15 10 gram/15 10 gram/15 Medical mL oral mL oral mL oral solution solution solution Lantus Lantus No 24unit( Q1D Lantus [facility] Solostar Solostar s) Solostar Med ical U-100 U-100 U-100 Insulin 100 Insulin 100 Insulin unit/mL (3 unit/mL (3 100 mL) mL) unit/mL (3 subcutaneou subcutaneou mL) s pen s pen subcutaneo Inject 24 Inject 24 us pen units every units every Inject 24 day by day by units sub-q route sub-q route every day at bedtime. at bedtime. by sub-q route at bedtime. melatonin 5 melatonin 5 No 1capsul Q1D melatonin [facility] mg capsule mg capsule e(s) 5 mg Med ical Take 1 Take 1 capsule capsule capsule Take 1 every day every day capsule by oral by oral every day route at route at by oral bedtime. bedtime. route at bedtime. Miralax 17 Miralax 17 No 1packet Q1D Miralax 17 [facility] gram oral gram oral (s) gram oral Medical powder powder powder packet Take packet Take packet 1 packet 1 packet Take 1 every day every day packet by oral by oral every day route. route. by oral route. nystatin nystatin No nystatin [facility] via 100,000 100,000 100,000 Medica l unit/gram unit/gram unit/gram topical topical topical ointment ointment ointment risperidone risperidone No risperidon [facility] 1 mg tablet 1 mg tablet e 1 mg Medical Take 1 Take 1 tablet tablet tablet Take 1 every day every day tablet by oral by oral every day route for route for by oral 30 days. 30 days. route for 30 days. sertraline sertraline No sertraline [facility] 100 mg 100 mg 100 mg Medical tablet Take tablet Take tablet 1 tablet 1 tablet Take 1 every day every day tablet by oral by oral every day route. route. by oral route. Spiriva Spiriva No Spiriva [facility] with with with Medical HandiHaler HandiHaler HandiHaler 18 mcg and 18 mcg and 18 mcg and inhalation inhalation inhalation capsules capsules capsules Inhale 1 Inhale 1 Inhale 1 capsule capsule capsule every day every day every day by by by inhalation inhalation inhalation route for route for route for 30 days. 30 days. 30 days. Tradjenta 5 Tradjenta 5 No Tradjenta [facility] mg tablet mg tablet 5 mg Medic al Take 1 Take 1 tablet tablet tablet Take 1 every day every day tablet by oral by oral every day route for route for by oral 30 days. 30 days. route for 30 days. tramadol 50 tramadol 50 No 2 Q12H tramadol [facility] mg tablet mg tablet 50 mg Medi lawrence Take 2 Take 2 tablet tablets tablets Take 2 every 12 every 12 tablets hours by hours by every 12 oral route oral route hours by for 30 for 30 oral route days. days. for 30 days. Triumeq 600 Triumeq 600 No 1 Q1D Triumeq [facility] mg-50 mg-50 600 mg-50 Medical mg-300 mg mg-300 mg mg-300 mg tablet Take tablet Take tablet 1 tablet 1 tablet Take 1 every day every day tablet by oral by oral every day route. route. by oral route. Tylenol Tylenol No 1 BID Tylenol [facility] Extra Extra Extra Medical Strength Strength Strength 500 mg 500 mg 500 mg tablet Take tablet Take tablet 1 tablet 1 tablet Take 1 twice a day twice a day tablet by oral by oral twice a route. route. day by oral route. zinc zinc No 1capsul Q1D zinc [facility] sulfate 50 sulfate 50 e(s) sulfate 50 Medical mg zinc mg zinc mg zinc (220 mg) (220 mg) (220 mg) capsule capsule capsule Take 1 Take 1 Take 1 capsule capsule capsule every day every day every day by oral by oral by oral route. route. route. Advair Advair No Advair [facility] Diskus 500 Diskus 500 Diskus 500 Medical mcg-50 mcg-50 mcg-50 mcg/dose mcg/dose mcg/dose powder for powder for powder for inhalation inhalation inhalation Inhale 1 Inhale 1 Inhale 1 puff twice puff twice puff twice a day by a day by a day by inhalation inhalation inhalation route for route for route for 30 days. 30 days. 30 days. Artificial Artificial No 1applic Q1D Artificial [facility] Medical Lubricant Lubricant ) Lubricant 83 %-15 % 83 %-15 % 83 %-15 % ointment ointment ointment Apply 1 Apply 1 Apply 1 application application applicatio every day every day n every by by day by ophthalmic ophthalmic ophthalmic route. route. route. aspirin 81 aspirin 81 No 1 Q1D aspirin 81 [facility] mg mg mg Medical tablet,dago tablet,dago tablet,del yed release yed release ayed Take 1 Take 1 release tablet tablet Take 1 every day every day tablet by oral by oral every day route. route. by oral route. atorvastati atorvastati No atorvastat [facility] n 40 mg n 40 mg in 40 mg Medic al tablet Take tablet Take tablet 1 tablet 1 tablet Take 1 every day every day tablet by oral by oral every day route. route. by oral route. benztropine benztropine No benztropin [facility] 1 mg tablet 1 mg tablet e 1 mg Medical Take 1 Take 1 tablet tablet tablet Take 1 every day every day tablet by oral by oral every day route for route for by oral 30 days. 30 days. route for 30 days. Biofreeze Biofreeze No Biofreeze [facility] (menthol) 5 (menthol) 5 (menthol) Medical % topical % topical 5 % gel every 4 gel every 4 topical hours as hours as gel every needed needed 4 hours as needed buspirone 5 buspirone 5 No buspirone [facility] mg tablet mg tablet 5 mg Medic al Take 1 Take 1 tablet tablet 3 tablet 3 Take 1 times a day times a day tablet 3 by oral by oral times a route for route for day by 30 days. 30 days. oral route for 30 days. diclofenac diclofenac No diclofenac [facility] 1 % topical 1 % topical 1 % M edical gel gel topical gel divalproex divalproex No divalproex [facility] 125 mg 125 mg 125 mg Medical capsule,del capsule,del capsule,de ayed ayed layed release release release sprinkle sprinkle sprinkle Take 2 Take 2 Take 2 capsules 3 capsules 3 capsules 3 times a day times a day times a by oral by oral day by route for route for oral route 30 days. 30 days. for 30 days. ergocalcife ergocalcife No ergocalcif [facility] rol rol black Medical (vitamin (vitamin (vitamin D2) 1,250 D2) 1,250 D2) 1,250 mcg (50,000 mcg (50,000 mcg unit) unit) (50,000 capsule capsule unit) capsule fluticasone fluticasone No fluticason [facility] propionate propionate e Med ical 50 50 propionate mcg/actuati mcg/actuati 50 on nasal on nasal mcg/actuat spray,suspe spray,suspe ion nasal nsion nsion spray,susp ension gabapentin gabapentin No gabapentin [facility] 300 mg 300 mg 300 mg Medical capsule capsule capsule Take 1 Take 1 Take 1 capsule 3 capsule 3 capsule 3 times a day times a day times a by oral by oral day by route for route for oral route 30 days. 30 days. for 30 days. GlucaGen GlucaGen No GlucaGen Rachel via HypoKit 1 HypoKit 1 HypoKit 1 Medical mg mg mg Injection Injection Injection as needd as needd as needd PRN PRN PRN ipratropium ipratropium No ipratropiu [facility] 0.5 0.5 m 0.5 Medical mg-albutero mg-albutero mg-albuter l 3 mg (2.5 l 3 mg (2.5 ol 3 mg mg base)/3 mg base)/3 (2.5 mg mL mL base)/3 mL nebulizatio nebulizatio nebulizati n soln n soln on soln Inhale 3 mL Inhale 3 mL Inhale 3 every 6 every 6 mL every 6 hours by hours by hours by inhalation inhalation inhalation route as route as route as needed for needed for needed for 7 days. 7 days. 7 days. lactulose lactulose No lactulose [facility] 10 gram/15 10 gram/15 10 gram/15 Medical mL oral mL oral mL oral solution solution solution Lantus Lantus No 24unit( Q1D Lantus [facility] Solostar Solostar s) Solostar Med ical U-100 U-100 U-100 Insulin 100 Insulin 100 Insulin unit/mL (3 unit/mL (3 100 mL) mL) unit/mL (3 subcutaneou subcutaneou mL) s pen s pen subcutaneo Inject 24 Inject 24 us pen units every units every Inject 24 day by day by units sub-q route sub-q route every day at bedtime. at bedtime. by sub-q route at bedtime. melatonin 5 melatonin 5 No 1capsul Q1D melatonin [facility] mg capsule mg capsule e(s) 5 mg Med ical Take 1 Take 1 capsule capsule capsule Take 1 every day every day capsule by oral by oral every day route at route at by oral bedtime. bedtime. route at bedtime. Miralax 17 Miralax 17 No 1packet Q1D Miralax 17 [facility] gram oral gram oral (s) gram oral Medical powder powder powder packet Take packet Take packet 1 packet 1 packet Take 1 every day every day packet by oral by oral every day route. route. by oral route. nystatin nystatin No nystatin [facility] via 100,000 100,000 100,000 Medica l unit/gram unit/gram unit/gram topical topical topical ointment ointment ointment risperidone risperidone No risperidon [facility] 1 mg tablet 1 mg tablet e 1 mg Medical Take 1 Take 1 tablet tablet tablet Take 1 every day every day tablet by oral by oral every day route for route for by oral 30 days. 30 days. route for 30 days. sertraline sertraline No sertraline [facility] 100 mg 100 mg 100 mg Medical tablet Take tablet Take tablet 1 tablet 1 tablet Take 1 every day every day tablet by oral by oral every day route. route. by oral route. Spiriva Spiriva No Spiriva [facility] with with with Medical HandiHaler HandiHaler HandiHaler 18 mcg and 18 mcg and 18 mcg and inhalation inhalation inhalation capsules capsules capsules Inhale 1 Inhale 1 Inhale 1 capsule capsule capsule every day every day every day by by by inhalation inhalation inhalation route for route for route for 30 days. 30 days. 30 days. Tradjenta 5 Tradjenta 5 No Tradjenta [facility] mg tablet mg tablet 5 mg Medic al Take 1 Take 1 tablet tablet tablet Take 1 every day every day tablet by oral by oral every day route for route for by oral 30 days. 30 days. route for 30 days. tramadol 50 tramadol 50 No 2 Q12H tramadol [facility] mg tablet mg tablet 50 mg Medi lawrence Take 2 Take 2 tablet tablets tablets Take 2 every 12 every 12 tablets hours by hours by every 12 oral route oral route hours by for 30 for 30 oral route days. days. for 30 days. Triumeq 600 Triumeq 600 No 1 Q1D Triumeq [facility] mg-50 mg-50 600 mg-50 Medical mg-300 mg mg-300 mg mg-300 mg tablet Take tablet Take tablet 1 tablet 1 tablet Take 1 every day every day tablet by oral by oral every day route. route. by oral route. Tylenol Tylenol No 1 BID Tylenol [facility] Extra Extra Extra Medical Strength Strength Strength 500 mg 500 mg 500 mg tablet Take tablet Take tablet 1 tablet 1 tablet Take 1 twice a day twice a day tablet by oral by oral twice a route. route. day by oral route. zinc zinc No 1capsul Q1D zinc [facility] sulfate 50 sulfate 50 e(s) sulfate 50 Medical mg zinc mg zinc mg zinc (220 mg) (220 mg) (220 mg) capsule capsule capsule Take 1 Take 1 Take 1 capsule capsule capsule every day every day every day by oral by oral by oral route. route. route. Advair Advair No Advair [facility] Diskus 500 Diskus 500 Diskus 500 Medical mcg-50 mcg-50 mcg-50 mcg/dose mcg/dose mcg/dose powder for powder for powder for inhalation inhalation inhalation Inhale 1 Inhale 1 Inhale 1 puff twice puff twice puff twice a day by a day by a day by inhalation inhalation inhalation route for route for route for 30 days. 30 days. 30 days. Artificial Artificial No 1applic Q1D Artificial [facility] Eye Medical Lubricant Lubricant ) Lubricant 83 %-15 % 83 %-15 % 83 %-15 % ointment ointment ointment Apply 1 Apply 1 Apply 1 application application applicatio every day every day n every by by day by ophthalmic ophthalmic ophthalmic route. route. route. aspirin 81 aspirin 81 No 1 Q1D aspirin 81 [facility] mg mg mg Medical tablet,dago tablet,dago tablet,del yed release yed release ayed Take 1 Take 1 release tablet tablet Take 1 every day every day tablet by oral by oral every day route. route. by oral route. atorvastati atorvastati No atorvastat [facility] n 40 mg n 40 mg in 40 mg Medic al tablet Take tablet Take tablet 1 tablet 1 tablet Take 1 every day every day tablet by oral by oral every day route. route. by oral route. benztropine benztropine No benztropin [facility] 1 mg tablet 1 mg tablet e 1 mg Medical Take 1 Take 1 tablet tablet tablet Take 1 every day every day tablet by oral by oral every day route for route for by oral 30 days. 30 days. route for 30 days. Biofreeze Biofreeze No Biofreeze [facility] (menthol) 5 (menthol) 5 (menthol) Medical % topical % topical 5 % gel every 4 gel every 4 topical hours as hours as gel every needed needed 4 hours as needed buspirone 5 buspirone 5 No buspirone [facility] mg tablet mg tablet 5 mg Medic al Take 1 Take 1 tablet tablet 3 tablet 3 Take 1 times a day times a day tablet 3 by oral by oral times a route for route for day by 30 days. 30 days. oral route for 30 days. diclofenac diclofenac No diclofenac [facility] 1 % topical 1 % topical 1 % M edical gel gel topical gel divalproex divalproex No divalproex [facility] 125 mg 125 mg 125 mg Medical capsule,del capsule,del capsule,de ayed ayed layed release release release sprinkle sprinkle sprinkle Take 2 Take 2 Take 2 capsules 3 capsules 3 capsules 3 times a day times a day times a by oral by oral day by route for route for oral route 30 days. 30 days. for 30 days. ergocalcife ergocalcife No ergocalcif [facility] rol rol black Medical (vitamin (vitamin (vitamin D2) 1,250 D2) 1,250 D2) 1,250 mcg (50,000 mcg (50,000 mcg unit) unit) (50,000 capsule capsule unit) capsule fluticasone fluticasone No fluticason [facility] propionate propionate e Med ical 50 50 propionate mcg/actuati mcg/actuati 50 on nasal on nasal mcg/actuat spray,suspe spray,suspe ion nasal nsion nsion spray,susp ension gabapentin gabapentin No gabapentin [facility] 300 mg 300 mg 300 mg Medical capsule capsule capsule Take 1 Take 1 Take 1 capsule 3 capsule 3 capsule 3 times a day times a day times a by oral by oral day by route for route for oral route 30 days. 30 days. for 30 days. GlucaGen GlucaGen No GlucaGen [facility] via HypoKit 1 HypoKit 1 HypoKit 1 Medical mg mg mg Injection Injection Injection as needd as needd as needd PRN PRN PRN ipratropium ipratropium No ipratropiu [facility] 0.5 0.5 m 0.5 Medical mg-albutero mg-albutero mg-albuter l 3 mg (2.5 l 3 mg (2.5 ol 3 mg mg base)/3 mg base)/3 (2.5 mg mL mL base)/3 mL nebulizatio nebulizatio nebulizati n soln n soln on soln Inhale 3 mL Inhale 3 mL Inhale 3 every 6 every 6 mL every 6 hours by hours by hours by inhalation inhalation inhalation route as route as route as needed for needed for needed for 7 days. 7 days. 7 days. lactulose lactulose No lactulose [facility] 10 gram/15 10 gram/15 10 gram/15 Medical mL oral mL oral mL oral solution solution solution Lantus Lantus No Lantus [facility] Solostar Solostar Solostar Med ical U-100 U-100 U-100 Insulin 100 Insulin 100 Insulin unit/mL (3 unit/mL (3 100 mL) mL) unit/mL (3 subcutaneou subcutaneou mL) s pen s pen subcutaneo Inject 24 Inject 24 us pen units every units every Inject 24 day by day by units sub-q route sub-q route every day at bedtime. at bedtime. by sub-q route at bedtime. melatonin 5 melatonin 5 No 1capsul Q1D melatonin [facility] mg capsule mg capsule e(s) 5 mg Med ical Take 1 Take 1 capsule capsule capsule Take 1 every day every day capsule by oral by oral every day route at route at by oral bedtime. bedtime. route at bedtime. Miralax 17 Miralax 17 No 1packet Q1D Miralax 17 [facility] gram oral gram oral (s) gram oral Medical powder powder powder packet Take packet Take packet 1 packet 1 packet Take 1 every day every day packet by oral by oral every day route. route. by oral route. nystatin nystatin No nystatin [facility] via 100,000 100,000 100,000 Medica l unit/gram unit/gram unit/gram topical topical topical cream cream cream nystatin nystatin No nystatin [facility] via 100,000 100,000 100,000 Medica l unit/gram unit/gram unit/gram topical topical topical ointment ointment ointment risperidone risperidone No risperidon [facility] 1 mg tablet 1 mg tablet e 1 mg Medical Take 1 Take 1 tablet tablet tablet Take 1 every day every day tablet by oral by oral every day route for route for by oral 30 days. 30 days. route for 30 days. sertraline sertraline No sertraline [facility] 100 mg 100 mg 100 mg Medical tablet Take tablet Take tablet 1 tablet 1 tablet Take 1 every day every day tablet by oral by oral every day route. route. by oral route. Spiriva Spiriva No Spiriva [facility] with with with Medical HandiHaler HandiHaler HandiHaler 18 mcg and 18 mcg and 18 mcg and inhalation inhalation inhalation capsules capsules capsules Inhale 1 Inhale 1 Inhale 1 capsule capsule capsule every day every day every day by by by inhalation inhalation inhalation route for route for route for 30 days. 30 days. 30 days. Tradjenta 5 Tradjenta 5 No Tradjenta [facility] mg tablet mg tablet 5 mg Medic al Take 1 Take 1 tablet tablet tablet Take 1 every day every day tablet by oral by oral every day route for route for by oral 30 days. 30 days. route for 30 days. tramadol 50 tramadol 50 No tramadol [facility] mg tablet mg tablet 50 mg [facility] Take 2 Take 2 tablet tablets tablets Take 2 every 12 every 12 tablets hours by hours by every 12 oral route oral route hours by for 30 for 30 oral route days. days. for 30 days. Triumeq 600 Triumeq 600 No 1 Q1D Triumeq [facility] mg-50 mg-50 600 mg-50 Medical mg-300 mg mg-300 mg mg-300 mg tablet Take tablet Take tablet 1 tablet 1 tablet Take 1 every day every day tablet by oral by oral every day route. route. by oral route. Tylenol Tylenol No 1 BID Tylenol [facility] Extra Extra Extra Medical Strength Strength Strength 500 mg 500 mg 500 mg tablet Take tablet Take tablet 1 tablet 1 tablet Take 1 twice a day twice a day tablet by oral by oral twice a route. route. day by oral route. zinc zinc No 1capsul Q1D zinc [facility] sulfate 50 sulfate 50 e(s) sulfate 50 Medical mg zinc mg zinc mg zinc (220 mg) (220 mg) (220 mg) capsule capsule capsule Take 1 Take 1 Take 1 capsule capsule capsule every day every day every day by oral by oral by oral route. route. route. Advair Advair No Advair [facility] Diskus 500 Diskus 500 Diskus 500 Medical mcg-50 mcg-50 mcg-50 mcg/dose mcg/dose mcg/dose powder for powder for powder for inhalation inhalation inhalation Inhale 1 Inhale 1 Inhale 1 puff twice puff twice puff twice a day by a day by a day by inhalation inhalation inhalation route for route for route for 30 days. 30 days. 30 days. Artificial Artificial No 1applic Q1D Artificial [facility](s Eye Medical Lubricant Lubricant ) Lubricant 83 %-15 % 83 %-15 % 83 %-15 % ointment ointment ointment Apply 1 Apply 1 Apply 1 application application applicatio every day every day n every by by day by ophthalmic ophthalmic ophthalmic route. route. route. aspirin 81 aspirin 81 No 1 Q1D aspirin 81 [facility] mg mg mg Medical tablet,dago tablet,dago tablet,del yed release yed release ayed Take 1 Take 1 release tablet tablet Take 1 every day every day tablet by oral by oral every day route. route. by oral route. atorvastati atorvastati No atorvastat [facility] n 40 mg n 40 mg in 40 mg Medic al tablet Take tablet Take tablet 1 tablet 1 tablet Take 1 every day every day tablet by oral by oral every day route. route. by oral route. benztropine benztropine No benztropin [facility] 1 mg tablet 1 mg tablet e 1 mg Medical Take 1 Take 1 tablet tablet tablet Take 1 every day every day tablet by oral by oral every day route for route for by oral 30 days. 30 days. route for 30 days. Biofreeze Biofreeze No Biofreeze [facility] (menthol) 5 (menthol) 5 (menthol) Medical % topical % topical 5 % gel every 4 gel every 4 topical hours as hours as gel every needed needed 4 hours as needed buspirone 5 buspirone 5 No buspirone [facility] mg tablet mg tablet 5 mg Medic al Take 1 Take 1 tablet tablet 3 tablet 3 Take 1 times a day times a day tablet 3 by oral by oral times a route for route for day by 30 days. 30 days. oral route for 30 days. diclofenac diclofenac No diclofenac [facility] 1 % topical 1 % topical 1 % M edical gel gel topical gel divalproex divalproex No divalproex [facility] 125 mg 125 mg 125 mg Medical capsule,del capsule,del capsule,de ayed ayed layed release release release sprinkle sprinkle sprinkle Take 2 Take 2 Take 2 capsules 3 capsules 3 capsules 3 times a day times a day times a by oral by oral day by route for route for oral route 30 days. 30 days. for 30 days. ergocalcife ergocalcife No ergocalcif [facility] rol rol black Medical (vitamin (vitamin (vitamin D2) 1,250 D2) 1,250 D2) 1,250 mcg (50,000 mcg (50,000 mcg unit) unit) (50,000 capsule capsule unit) capsule fluticasone fluticasone No fluticason [facility] propionate propionate e Med ical 50 50 propionate mcg/actuati mcg/actuati 50 on nasal on nasal mcg/actuat spray,suspe spray,suspe ion nasal nsion nsion spray,susp ension gabapentin gabapentin No gabapentin [facility] 300 mg 300 mg 300 mg Medical capsule capsule capsule Take 1 Take 1 Take 1 capsule 3 capsule 3 capsule 3 times a day times a day times a by oral by oral day by route for route for oral route 30 days. 30 days. for 30 days. GlucaGen GlucaGen No GlucaGen [facility] via HypoKit 1 HypoKit 1 HypoKit 1 Medical mg mg mg Injection Injection Injection as needd as needd as needd PRN PRN PRN ipratropium ipratropium No ipratropiu [facility] 0.5 0.5 m 0.5 Medical mg-albutero mg-albutero mg-albuter l 3 mg (2.5 l 3 mg (2.5 ol 3 mg mg base)/3 mg base)/3 (2.5 mg mL mL base)/3 mL nebulizatio nebulizatio nebulizati n soln n soln on soln Inhale 3 mL Inhale 3 mL Inhale 3 every 6 every 6 mL every 6 hours by hours by hours by inhalation inhalation inhalation route as route as route as needed for needed for needed for 7 days. 7 days. 7 days. lactulose lactulose No lactulose [facility] 10 gram/15 10 gram/15 10 gram/15 Medical mL oral mL oral mL oral solution solution solution Lantus Lantus No Lantus [facility] Solostar Solostar Solostar Med ical U-100 U-100 U-100 Insulin 100 Insulin 100 Insulin unit/mL (3 unit/mL (3 100 mL) mL) unit/mL (3 subcutaneou subcutaneou mL) s pen s pen subcutaneo Inject 24 Inject 24 us pen units every units every Inject 24 day by day by units sub-q route sub-q route every day at bedtime. at bedtime. by sub-q route at bedtime. melatonin 5 melatonin 5 No 1capsul Q1D melatonin [facility] mg capsule mg capsule e(s) 5 mg Med ical Take 1 Take 1 capsule capsule capsule Take 1 every day every day capsule by oral by oral every day route at route at by oral bedtime. bedtime. route at bedtime. Miralax 17 Miralax 17 No 1packet Q1D Miralax 17 [facility] gram oral gram oral (s) gram oral Medical powder powder powder packet Take packet Take packet 1 packet 1 packet Take 1 every day every day packet by oral by oral every day route. route. by oral route. nystatin nystatin No nystatin [facility] via 100,000 100,000 100,000 Medica l unit/gram unit/gram unit/gram topical topical topical cream cream cream nystatin nystatin No nystatin [facility] via 100,000 100,000 100,000 Medica l unit/gram unit/gram unit/gram topical topical topical ointment ointment ointment risperidone risperidone No risperidon [facility] 1 mg tablet 1 mg tablet e 1 mg Medical Take 1 Take 1 tablet tablet tablet Take 1 every day every day tablet by oral by oral every day route for route for by oral 30 days. 30 days. route for 30 days. sertraline sertraline No sertraline [facility] 100 mg 100 mg 100 mg Medical tablet Take tablet Take tablet 1 tablet 1 tablet Take 1 every day every day tablet by oral by oral every day route. route. by oral route. Spiriva Spiriva No Spiriva [facility] with with with Medical HandiHaler HandiHaler HandiHaler 18 mcg and 18 mcg and 18 mcg and inhalation inhalation inhalation capsules capsules capsules Inhale 1 Inhale 1 Inhale 1 capsule capsule capsule every day every day every day by by by inhalation inhalation inhalation route for route for route for 30 days. 30 days. 30 days. Tradjenta 5 Tradjenta 5 No Tradjenta [facility] mg tablet mg tablet 5 mg Medic al Take 1 Take 1 tablet tablet tablet Take 1 every day every day tablet by oral by oral every day route for route for by oral 30 days. 30 days. route for 30 days. tramadol 50 tramadol 50 No tramadol [facility] mg tablet mg tablet 50 mg Medi lawrence Take 2 Take 2 tablet tablets tablets Take 2 every 12 every 12 tablets hours by hours by every 12 oral route oral route hours by for 30 for 30 oral route days. days. for 30 days. Triumeq 600 Triumeq 600 No 1 Q1D Triumeq [facility] mg-50 mg-50 600 mg-50 Medical mg-300 mg mg-300 mg mg-300 mg tablet Take tablet Take tablet 1 tablet 1 tablet Take 1 every day every day tablet by oral by oral every day route. route. by oral route. Tylenol Tylenol No 1 BID Tylenol [facility] Extra Extra Extra Medical Strength Strength Strength 500 mg 500 mg 500 mg tablet Take tablet Take tablet 1 tablet 1 tablet Take 1 twice a day twice a day tablet by oral by oral twice a route. route. day by oral route. zinc zinc No 1capsul Q1D zinc [facility] sulfate 50 sulfate 50 e(s) sulfate 50 Medical mg zinc mg zinc mg zinc (220 mg) (220 mg) (220 mg) capsule capsule capsule Take 1 Take 1 Take 1 capsule capsule capsule every day every day every day by oral by oral by oral route. route. route. Advair Advair No Advair [facility] Diskus 500 Diskus 500 Diskus 500 Medical mcg-50 mcg-50 mcg-50 mcg/dose mcg/dose mcg/dose powder for powder for powder for inhalation inhalation inhalation Inhale 1 Inhale 1 Inhale 1 puff twice puff twice puff twice a day by a day by a day by inhalation inhalation inhalation route for route for route for 30 days. 30 days. 30 days. Artificial Artificial No 1applic Q1D Artificial [facility](s Eye Medical Lubricant Lubricant ) Lubricant 83 %-15 % 83 %-15 % 83 %-15 % ointment ointment ointment Apply 1 Apply 1 Apply 1 application application applicatio every day every day n every by by day by ophthalmic ophthalmic ophthalmic route. route. route. aspirin 81 aspirin 81 No 1 Q1D aspirin 81 [facility] mg mg mg Medical tablet,dago tablet,dago tablet,del yed release yed release ayed Take 1 Take 1 release tablet tablet Take 1 every day every day tablet by oral by oral every day route. route. by oral route. atorvastati atorvastati No atorvastat [facility] n 40 mg n 40 mg in 40 mg Medic al tablet Take tablet Take tablet 1 tablet 1 tablet Take 1 every day every day tablet by oral by oral every day route. route. by oral route. benztropine benztropine No benztropin [facility] 1 mg tablet 1 mg tablet e 1 mg Medical Take 1 Take 1 tablet tablet tablet Take 1 every day every day tablet by oral by oral every day route for route for by oral 30 days. 30 days. route for 30 days. Biofreeze Biofreeze No Biofreeze [facility] (menthol) 5 (menthol) 5 (menthol) Medical % topical % topical 5 % gel every 4 gel every 4 topical hours as hours as gel every needed needed 4 hours as needed buspirone 5 buspirone 5 No buspirone [facility] mg tablet mg tablet 5 mg Medic al Take 1 Take 1 tablet tablet 3 tablet 3 Take 1 times a day times a day tablet 3 by oral by oral times a route for route for day by 30 days. 30 days. oral route for 30 days. diclofenac diclofenac No diclofenac [facility] 1 % topical 1 % topical 1 % M edical gel gel topical gel divalproex divalproex No divalproex [facility] 125 mg 125 mg 125 mg Medical capsule,del capsule,del capsule,de ayed ayed layed release release release sprinkle sprinkle sprinkle Take 2 Take 2 Take 2 capsules 3 capsules 3 capsules 3 times a day times a day times a by oral by oral day by route for route for oral route 30 days. 30 days. for 30 days. ergocalcife ergocalcife No ergocalcif [facility] rol rol black Medical (vitamin (vitamin (vitamin D2) 1,250 D2) 1,250 D2) 1,250 mcg (50,000 mcg (50,000 mcg unit) unit) (50,000 capsule capsule unit) capsule fluticasone fluticasone No fluticason [facility] propionate propionate e Med ical 50 50 propionate mcg/actuati mcg/actuati 50 on nasal on nasal mcg/actuat spray,suspe spray,suspe ion nasal nsion nsion spray,susp ension gabapentin gabapentin No gabapentin [facility] 300 mg 300 mg 300 mg Medical capsule capsule capsule Take 1 Take 1 Take 1 capsule 3 capsule 3 capsule 3 times a day times a day times a by oral by oral day by route for route for oral route 30 days. 30 days. for 30 days. GlucaGen GlucaGen No GlucaGen [facility] via HypoKit 1 HypoKit 1 HypoKit 1 Medical mg mg mg Injection Injection Injection as needd as needd as needd PRN PRN PRN ipratropium ipratropium No ipratropiu [facility] 0.5 0.5 m 0.5 Medical mg-albutero mg-albutero mg-albuter l 3 mg (2.5 l 3 mg (2.5 ol 3 mg mg base)/3 mg base)/3 (2.5 mg mL mL base)/3 mL nebulizatio nebulizatio nebulizati n soln n soln on soln Inhale 3 mL Inhale 3 mL Inhale 3 every 6 every 6 mL every 6 hours by hours by hours by inhalation inhalation inhalation route as route as route as needed for needed for needed for 7 days. 7 days. 7 days. lactulose lactulose No lactulose [facility] 10 gram/15 10 gram/15 10 gram/15 Medical mL oral mL oral mL oral solution solution solution Lantus Lantus No Lantus [facility] Solostar Solostar Solostar Med ical U-100 U-100 U-100 Insulin 100 Insulin 100 Insulin unit/mL (3 unit/mL (3 100 mL) mL) unit/mL (3 subcutaneou subcutaneou mL) s pen s pen subcutaneo Inject 24 Inject 24 us pen units every units every Inject 24 day by day by units sub-q route sub-q route every day at bedtime. at bedtime. by sub-q route at bedtime. melatonin 5 melatonin 5 No 1capsul Q1D melatonin [facility] mg capsule mg capsule e(s) 5 mg Med ical Take 1 Take 1 capsule capsule capsule Take 1 every day every day capsule by oral by oral every day route at route at by oral bedtime. bedtime. route at bedtime. meropenem meropenem No 500mg Q8H meropenem [facility] 500 mg 500 mg 500 mg Medical intravenous intravenous intravenou solution solution s solution Inject 500 Inject 500 Inject 500 mg every 8 mg every 8 mg every 8 hours by hours by hours by intravenous intravenous intravenou route. route. s route. Miralax 17 Miralax 17 No 1packet Q1D Miralax 17 [facility] gram oral gram oral (s) gram oral Medical powder powder powder packet Take packet Take packet 1 packet 1 packet Take 1 every day every day packet by oral by oral every day route. route. by oral route. nystatin nystatin No nystatin [facility] via 100,000 100,000 100,000 Medica l unit/gram unit/gram unit/gram topical topical topical cream cream cream nystatin nystatin No nystatin [facility] via 100,000 100,000 100,000 Medica l unit/gram unit/gram unit/gram topical topical topical ointment ointment ointment risperidone risperidone No risperidon [facility] 1 mg tablet 1 mg tablet e 1 mg Medical Take 1 Take 1 tablet tablet tablet Take 1 every day every day tablet by oral by oral every day route for route for by oral 30 days. 30 days. route for 30 days. sertraline sertraline No sertraline [facility] 100 mg 100 mg 100 mg Medical tablet Take tablet Take tablet 1 tablet 1 tablet Take 1 every day every day tablet by oral by oral every day route. route. by oral route. Spiriva Spiriva No Spiriva [facility] with with with Medical HandiHaler HandiHaler HandiHaler 18 mcg and 18 mcg and 18 mcg and inhalation inhalation inhalation capsules capsules capsules Inhale 1 Inhale 1 Inhale 1 capsule capsule capsule every day every day every day by by by inhalation inhalation inhalation route for route for route for 30 days. 30 days. 30 days. Tradjenta 5 Tradjenta 5 No Tradjenta [facility] mg tablet mg tablet 5 mg Medic al Take 1 Take 1 tablet tablet tablet Take 1 every day every day tablet by oral by oral every day route for route for by oral 30 days. 30 days. route for 30 days. tramadol 50 tramadol 50 No tramadol [facility] mg tablet mg tablet 50 mg Medi lawrence Take 2 Take 2 tablet tablets tablets Take 2 every 12 every 12 tablets hours by hours by every 12 oral route oral route hours by for 30 for 30 oral route days. days. for 30 days. Triumeq 600 Triumeq 600 No 1 Q1D Triumeq [facility] mg-50 mg-50 600 mg-50 Medical mg-300 mg mg-300 mg mg-300 mg tablet Take tablet Take tablet 1 tablet 1 tablet Take 1 every day every day tablet by oral by oral every day route. route. by oral route. Tylenol Tylenol No 1 BID Tylenol [facility] Extra Extra Extra Medical Strength Strength Strength 500 mg 500 mg 500 mg tablet Take tablet Take tablet 1 tablet 1 tablet Take 1 twice a day twice a day tablet by oral by oral twice a route. route. day by oral route. zinc zinc No 1capsul Q1D zinc [facility] sulfate 50 sulfate 50 e(s) sulfate 50 Medical mg zinc mg zinc mg zinc (220 mg) (220 mg) (220 mg) capsule capsule capsule Take 1 Take 1 Take 1 capsule capsule capsule every day every day every day by oral by oral by oral route. route. route. Advair Advair No Advair [facility] Diskus 500 Diskus 500 Diskus 500 Medical mcg-50 mcg-50 mcg-50 mcg/dose mcg/dose mcg/dose powder for powder for powder for inhalation inhalation inhalation Inhale 1 Inhale 1 Inhale 1 puff twice puff twice puff twice a day by a day by a day by inhalation inhalation inhalation route for route for route for 30 days. 30 days. 30 days. Artificial Artificial No 1applic Q1D Artificial [facility](s Eye Medical Lubricant Lubricant ) Lubricant 83 %-15 % 83 %-15 % 83 %-15 % ointment ointment ointment Apply 1 Apply 1 Apply 1 application application applicatio every day every day n every by by day by ophthalmic ophthalmic ophthalmic route. route. route. aspirin 81 aspirin 81 No 1 Q1D aspirin 81 [facility] mg mg mg Medical tablet,dago tablet,dago tablet,del yed release yed release ayed Take 1 Take 1 release tablet tablet Take 1 every day every day tablet by oral by oral every day route. route. by oral route. atorvastati atorvastati No atorvastat [facility] n 40 mg n 40 mg in 40 mg Medic al tablet Take tablet Take tablet 1 tablet 1 tablet Take 1 every day every day tablet by oral by oral every day route. route. by oral route. benztropine benztropine No benztropin [facility] 1 mg tablet 1 mg tablet e 1 mg Medical Take 1 Take 1 tablet tablet tablet Take 1 every day every day tablet by oral by oral every day route for route for by oral 30 days. 30 days. route for 30 days. Biofreeze Biofreeze No Biofreeze [facility] (menthol) 5 (menthol) 5 (menthol) Medical % topical % topical 5 % gel every 4 gel every 4 topical hours as hours as gel every needed needed 4 hours as needed buspirone 5 buspirone 5 No buspirone [facility] mg tablet mg tablet 5 mg Medic al Take 1 Take 1 tablet tablet 3 tablet 3 Take 1 times a day times a day tablet 3 by oral by oral times a route for route for day by 30 days. 30 days. oral route for 30 days. diclofenac diclofenac No diclofenac [facility] 1 % topical 1 % topical 1 % M edical gel gel topical gel divalproex divalproex No divalproex [facility] 125 mg 125 mg 125 mg Medical capsule,del capsule,del capsule,de ayed ayed layed release release release sprinkle sprinkle sprinkle Take 2 Take 2 Take 2 capsules 3 capsules 3 capsules 3 times a day times a day times a by oral by oral day by route for route for oral route 30 days. 30 days. for 30 days. ergocalcife ergocalcife No ergocalcif [facility] rol rol black Medical (vitamin (vitamin (vitamin D2) 1,250 D2) 1,250 D2) 1,250 mcg (50,000 mcg (50,000 mcg unit) unit) (50,000 capsule capsule unit) capsule fluticasone fluticasone No fluticason [facility] propionate propionate e Med ical 50 50 propionate mcg/actuati mcg/actuati 50 on nasal on nasal mcg/actuat spray,suspe spray,suspe ion nasal nsion nsion spray,susp ension gabapentin gabapentin No gabapentin [facility] 300 mg 300 mg 300 mg Medical capsule capsule capsule Take 1 Take 1 Take 1 capsule 3 capsule 3 capsule 3 times a day times a day times a by oral by oral day by route for route for oral route 30 days. 30 days. for 30 days. GlucaGen GlucaGen No GlucaGen [facility] via HypoKit 1 HypoKit 1 HypoKit 1 Medical mg mg mg Injection Injection Injection as needd as needd as needd PRN PRN PRN ipratropium ipratropium No ipratropiu [facility] 0.5 0.5 m 0.5 Medical mg-albutero mg-albutero mg-albuter l 3 mg (2.5 l 3 mg (2.5 ol 3 mg mg base)/3 mg base)/3 (2.5 mg mL mL base)/3 mL nebulizatio nebulizatio nebulizati n soln n soln on soln Inhale 3 mL Inhale 3 mL Inhale 3 every 6 every 6 mL every 6 hours by hours by hours by inhalation inhalation inhalation route as route as route as needed for needed for needed for 7 days. 7 days. 7 days. lactulose lactulose No lactulose [facility] 10 gram/15 10 gram/15 10 gram/15 Medical mL oral mL oral mL oral solution solution solution Lantus Lantus No Lantus [facility] Solostar Solostar Solostar Med ical U-100 U-100 U-100 Insulin 100 Insulin 100 Insulin unit/mL (3 unit/mL (3 100 mL) mL) unit/mL (3 subcutaneou subcutaneou mL) s pen s pen subcutaneo Inject 24 Inject 24 us pen units every units every Inject 24 day by day by units sub-q route sub-q route every day at bedtime. at bedtime. by sub-q route at bedtime. melatonin 5 melatonin 5 No 1capsul Q1D melatonin [facility] mg capsule mg capsule e(s) 5 mg Med ical Take 1 Take 1 capsule capsule capsule Take 1 every day every day capsule by oral by oral every day route at route at by oral bedtime. bedtime. route at bedtime. meropenem meropenem No 500mg Q8H meropenem [facility] 500 mg 500 mg 500 mg Medical intravenous intravenous intravenou solution solution s solution Inject 500 Inject 500 Inject 500 mg every 8 mg every 8 mg every 8 hours by hours by hours by intravenous intravenous intravenou route. route. s route. Miralax 17 Miralax 17 No 1packet Q1D Miralax 17 [facility] gram oral gram oral (s) gram oral Medical powder powder powder packet Take packet Take packet 1 packet 1 packet Take 1 every day every day packet by oral by oral every day route. route. by oral route. nystatin nystatin No nystatin [facility] via 100,000 100,000 100,000 Medica l unit/gram unit/gram unit/gram topical topical topical cream cream cream nystatin nystatin No nystatin [facility] via 100,000 100,000 100,000 Medica l unit/gram unit/gram unit/gram topical topical topical ointment ointment ointment risperidone risperidone No risperidon [facility] 1 mg tablet 1 mg tablet e 1 mg Medical Take 1 Take 1 tablet tablet tablet Take 1 every day every day tablet by oral by oral every day route for route for by oral 30 days. 30 days. route for 30 days. sertraline sertraline No sertraline [facility] 100 mg 100 mg 100 mg Medical tablet Take tablet Take tablet 1 tablet 1 tablet Take 1 every day every day tablet by oral by oral every day route. route. by oral route. Spiriva Spiriva No Spiriva [facility] with with with Medical HandiHaler HandiHaler HandiHaler 18 mcg and 18 mcg and 18 mcg and inhalation inhalation inhalation capsules capsules capsules Inhale 1 Inhale 1 Inhale 1 capsule capsule capsule every day every day every day by by by inhalation inhalation inhalation route for route for route for 30 days. 30 days. 30 days. Tradjenta 5 Tradjenta 5 No Tradjenta [facility] mg tablet mg tablet 5 mg Medic al Take 1 Take 1 tablet tablet tablet Take 1 every day every day tablet by oral by oral every day route for route for by oral 30 days. 30 days. route for 30 days. tramadol 50 tramadol 50 No 2 Q12H tramadol [facility] mg tablet mg tablet 50 mg Medi lawrence Take 2 Take 2 tablet tablets tablets Take 2 every 12 every 12 tablets hours by hours by every 12 oral route oral route hours by for 30 for 30 oral route days. days. for 30 days. Triumeq 600 Triumeq 600 No 1 Q1D Triumeq [facility] mg-50 mg-50 600 mg-50 Medical mg-300 mg mg-300 mg mg-300 mg tablet Take tablet Take tablet 1 tablet 1 tablet Take 1 every day every day tablet by oral by oral every day route. route. by oral route. Tylenol Tylenol No 1 BID Tylenol [facility] Extra Extra Extra Medical Strength Strength Strength 500 mg 500 mg 500 mg tablet Take tablet Take tablet 1 tablet 1 tablet Take 1 twice a day twice a day tablet by oral by oral twice a route. route. day by oral route. zinc zinc No 1capsul Q1D zinc [facility] sulfate 50 sulfate 50 e(s) sulfate 50 Medical mg zinc mg zinc mg zinc (220 mg) (220 mg) (220 mg) capsule capsule capsule Take 1 Take 1 Take 1 capsule capsule capsule every day every day every day by oral by oral by oral route. route. route. Advair Advair No Advair [facility] Diskus 500 Diskus 500 Diskus 500 Medical mcg-50 mcg-50 mcg-50 mcg/dose mcg/dose mcg/dose powder for powder for powder for inhalation inhalation inhalation Inhale 1 Inhale 1 Inhale 1 puff twice puff twice puff twice a day by a day by a day by inhalation inhalation inhalation route for route for route for 30 days. 30 days. 30 days. Artificial Artificial No 1applic Q1D Artificial [facility](s Eye Medical Lubricant Lubricant ) Lubricant 83 %-15 % 83 %-15 % 83 %-15 % ointment ointment ointment Apply 1 Apply 1 Apply 1 application application applicatio every day every day n every by by day by ophthalmic ophthalmic ophthalmic route. route. route. aspirin 81 aspirin 81 No 1 Q1D aspirin 81 [facility] mg mg mg Medical tablet,dago tablet,dago tablet,del yed release yed release ayed Take 1 Take 1 release tablet tablet Take 1 every day every day tablet by oral by oral every day route. route. by oral route. atorvastati atorvastati No atorvastat [facility] n 40 mg n 40 mg in 40 mg Medic al tablet Take tablet Take tablet 1 tablet 1 tablet Take 1 every day every day tablet by oral by oral every day route. route. by oral route. benztropine benztropine No benztropin [facility] 1 mg tablet 1 mg tablet e 1 mg Medical Take 1 Take 1 tablet tablet tablet Take 1 every day every day tablet by oral by oral every day route for route for by oral 30 days. 30 days. route for 30 days. Biofreeze Biofreeze No Biofreeze [facility] (menthol) 5 (menthol) 5 (menthol) Medical % topical % topical 5 % gel every 4 gel every 4 topical hours as hours as gel every needed needed 4 hours as needed buspirone 5 buspirone 5 No buspirone [facility] mg tablet mg tablet 5 mg Medic al Take 1 Take 1 tablet tablet 3 tablet 3 Take 1 times a day times a day tablet 3 by oral by oral times a route for route for day by 30 days. 30 days. oral route for 30 days. diclofenac diclofenac No diclofenac [facility] 1 % topical 1 % topical 1 % M edical gel gel topical gel divalproex divalproex No divalproex [facility] 125 mg 125 mg 125 mg Medical capsule,del capsule,del capsule,de ayed ayed layed release release release sprinkle sprinkle sprinkle Take 2 Take 2 Take 2 capsules 3 capsules 3 capsules 3 times a day times a day times a by oral by oral day by route for route for oral route 30 days. 30 days. for 30 days. ergocalcife ergocalcife No ergocalcif [facility] rol rol black [facility] (vitamin (vitamin (vitamin D2) 1,250 D2) 1,250 D2) 1,250 mcg (50,000 mcg (50,000 mcg unit) unit) (50,000 capsule capsule unit) capsule fluticasone fluticasone No fluticason [facility] propionate propionate e Med ical 50 50 propionate mcg/actuati mcg/actuati 50 on nasal on nasal mcg/actuat spray,suspe spray,suspe ion nasal nsion nsion spray,susp ension gabapentin gabapentin No gabapentin [facility] 300 mg 300 mg 300 mg Medical capsule capsule capsule Take 1 Take 1 Take 1 capsule 3 capsule 3 capsule 3 times a day times a day times a by oral by oral day by route for route for oral route 30 days. 30 days. for 30 days. GlucaGen GlucaGen No GlucaGen [facility] via HypoKit 1 HypoKit 1 HypoKit 1 Medical mg mg mg Injection Injection Injection as needd as needd as needd PRN PRN PRN ipratropium ipratropium No ipratropiu [facility] 0.5 0.5 m 0.5 Medical mg-albutero mg-albutero mg-albuter l 3 mg (2.5 l 3 mg (2.5 ol 3 mg mg base)/3 mg base)/3 (2.5 mg mL mL base)/3 mL nebulizatio nebulizatio nebulizati n soln n soln on soln Inhale 3 mL Inhale 3 mL Inhale 3 every 6 every 6 mL every 6 hours by hours by hours by inhalation inhalation inhalation route as route as route as needed for needed for needed for 7 days. 7 days. 7 days. lactulose lactulose No lactulose [facility] 10 gram/15 10 gram/15 10 gram/15 Medical mL oral mL oral mL oral solution solution solution Lantus Lantus No Lantus [facility] Solostar Solostar Solostar Med ical U-100 U-100 U-100 Insulin 100 Insulin 100 Insulin unit/mL (3 unit/mL (3 100 mL) mL) unit/mL (3 subcutaneou subcutaneou mL) s pen s pen subcutaneo Inject 24 Inject 24 us pen units every units every Inject 24 day by day by units sub-q route sub-q route every day at bedtime. at bedtime. by sub-q route at bedtime. melatonin 5 melatonin 5 No 1capsul Q1D melatonin [facility] mg capsule mg capsule e(s) 5 mg Med ical Take 1 Take 1 capsule capsule capsule Take 1 every day every day capsule by oral by oral every day route at route at by oral bedtime. bedtime. route at bedtime. meropenem meropenem No 500mg Q8H meropenem [facility] 500 mg 500 mg 500 mg Medical intravenous intravenous intravenou solution solution s solution Inject 500 Inject 500 Inject 500 mg every 8 mg every 8 mg every 8 hours by hours by hours by intravenous intravenous intravenou route. route. s route. Miralax 17 Miralax 17 No 1packet Q1D Miralax 17 [facility] gram oral gram oral (s) gram oral Medical powder powder powder packet Take packet Take packet 1 packet 1 packet Take 1 every day every day packet by oral by oral every day route. route. by oral route. nystatin nystatin No nystatin [facility] via 100,000 100,000 100,000 Medica l unit/gram unit/gram unit/gram topical topical topical cream cream cream nystatin nystatin No nystatin [facility] via 100,000 100,000 100,000 Medica l unit/gram unit/gram unit/gram topical topical topical ointment ointment ointment risperidone risperidone No risperidon [facility] 1 mg tablet 1 mg tablet e 1 mg Medical Take 1 Take 1 tablet tablet tablet Take 1 every day every day tablet by oral by oral every day route for route for by oral 30 days. 30 days. route for 30 days. sertraline sertraline No sertraline [facility] 100 mg 100 mg 100 mg Medical tablet Take tablet Take tablet 1 tablet 1 tablet Take 1 every day every day tablet by oral by oral every day route. route. by oral route. Spiriva Spiriva No Spiriva [facility] with with with Medical HandiHaler HandiHaler HandiHaler 18 mcg and 18 mcg and 18 mcg and inhalation inhalation inhalation capsules capsules capsules Inhale 1 Inhale 1 Inhale 1 capsule capsule capsule every day every day every day by by by inhalation inhalation inhalation route for route for route for 30 days. 30 days. 30 days. Tradjenta 5 Tradjenta 5 No Tradjenta [facility] mg tablet mg tablet 5 mg Medic al Take 1 Take 1 tablet tablet tablet Take 1 every day every day tablet by oral by oral every day route for route for by oral 30 days. 30 days. route for 30 days. tramadol 50 tramadol 50 No tramadol [facility] mg tablet mg tablet 50 mg Medi lawrence Take 2 Take 2 tablet tablets tablets Take 2 every 12 every 12 tablets hours by hours by every 12 oral route oral route hours by for 30 for 30 oral route days. days. for 30 days. Triumeq 600 Triumeq 600 No 1 Q1D Triumeq [facility] mg-50 mg-50 600 mg-50 Medical mg-300 mg mg-300 mg mg-300 mg tablet Take tablet Take tablet 1 tablet 1 tablet Take 1 every day every day tablet by oral by oral every day route. route. by oral route. Tylenol Tylenol No 1 BID Tylenol [facility] Extra Extra Extra Medical Strength Strength Strength 500 mg 500 mg 500 mg tablet Take tablet Take tablet 1 tablet 1 tablet Take 1 twice a day twice a day tablet by oral by oral twice a route. route. day by oral route. zinc zinc No 1capsul Q1D zinc [facility] sulfate 50 sulfate 50 e(s) sulfate 50 Medical mg zinc mg zinc mg zinc (220 mg) (220 mg) (220 mg) capsule capsule capsule Take 1 Take 1 Take 1 capsule capsule capsule every day every day every day by oral by oral by oral route. route. route. Advair Advair No Advair [facility] Diskus 500 Diskus 500 Diskus 500 Medical mcg-50 mcg-50 mcg-50 mcg/dose mcg/dose mcg/dose powder for powder for powder for inhalation inhalation inhalation Inhale 1 Inhale 1 Inhale 1 puff twice puff twice puff twice a day by a day by a day by inhalation inhalation inhalation route for route for route for 30 days. 30 days. 30 days. Advair Advair No Advair [facility] Diskus 500 Diskus 500 Diskus 500 Medical mcg-50 mcg-50 mcg-50 mcg/dose mcg/dose mcg/dose powder for powder for powder for inhalation inhalation inhalation Inhale 1 Inhale 1 Inhale 1 puff twice puff twice puff twice a day by a day by a day by inhalation inhalation inhalation route for route for route for 30 days. 30 days. 30 days. Artificial Artificial No 1applic Q1D Artificial [facility](s Eye Medical Lubricant Lubricant ) Lubricant 83 %-15 % 83 %-15 % 83 %-15 % ointment ointment ointment Apply 1 Apply 1 Apply 1 application application applicatio every day every day n every by by day by ophthalmic ophthalmic ophthalmic route. route. route. aspirin 81 aspirin 81 No 1 Q1D aspirin 81 [facility] mg mg mg Medical tablet,dago tablet,dago tablet,del yed release yed release ayed Take 1 Take 1 release tablet tablet Take 1 every day every day tablet by oral by oral every day route. route. by oral route. atorvastati atorvastati No atorvastat [facility] n 40 mg n 40 mg in 40 mg Medic al tablet Take tablet Take tablet 1 tablet 1 tablet Take 1 every day every day tablet by oral by oral every day route. route. by oral route. benztropine benztropine No benztropin [facility] 1 mg tablet 1 mg tablet e 1 mg Medical Take 1 Take 1 tablet tablet tablet Take 1 every day every day tablet by oral by oral every day route for route for by oral 30 days. 30 days. route for 30 days. Biofreeze Biofreeze No Biofreeze [facility] (menthol) 5 (menthol) 5 (menthol) Medical % topical % topical 5 % gel every 4 gel every 4 topical hours as hours as gel every needed needed 4 hours as needed buspirone 5 buspirone 5 No buspirone [facility] mg tablet mg tablet 5 mg Medic al Take 1 Take 1 tablet tablet 3 tablet 3 Take 1 times a day times a day tablet 3 by oral by oral times a route for route for day by 30 days. 30 days. oral route for 30 days. diclofenac diclofenac No diclofenac [facility] 1 % topical 1 % topical 1 % M edical gel gel topical gel Artificial Artificial No 1applic Q1D Artificial [facility](s Eye Medical Lubricant Lubricant ) Lubricant 83 %-15 % 83 %-15 % 83 %-15 % ointment ointment ointment Apply 1 Apply 1 Apply 1 application application applicatio every day every day n every by by day by ophthalmic ophthalmic ophthalmic route. route. route. divalproex divalproex No divalproex [facility] 125 mg 125 mg 125 mg Medical capsule,del capsule,del capsule,de ayed ayed layed release release release sprinkle sprinkle sprinkle Take 2 Take 2 Take 2 capsules 3 capsules 3 capsules 3 times a day times a day times a by oral by oral day by route for route for oral route 30 days. 30 days. for 30 days. fluticasone fluticasone No fluticason [facility] propionate propionate e Med ical 50 50 propionate mcg/actuati mcg/actuati 50 on nasal on nasal mcg/actuat spray,suspe spray,suspe ion nasal nsion nsion spray,susp ension gabapentin gabapentin No gabapentin [facility] 300 mg 300 mg 300 mg Medical capsule capsule capsule Take 1 Take 1 Take 1 capsule 3 capsule 3 capsule 3 times a day times a day times a by oral by oral day by route for route for oral route 30 days. 30 days. for 30 days. GlucaGen GlucaGen No GlucaGen [facility] via HypoKit 1 HypoKit 1 HypoKit 1 Medical mg mg mg Injection Injection Injection as needd as needd as needd PRN PRN PRN ipratropium ipratropium No ipratropiu [facility] 0.5 0.5 m 0.5 Medical mg-albutero mg-albutero mg-albuter l 3 mg (2.5 l 3 mg (2.5 ol 3 mg mg base)/3 mg base)/3 (2.5 mg mL mL base)/3 mL nebulizatio nebulizatio nebulizati n soln n soln on soln Inhale 3 mL Inhale 3 mL Inhale 3 every 6 every 6 mL every 6 hours by hours by hours by inhalation inhalation inhalation route as route as route as needed for needed for needed for 7 days. 7 days. 7 days. lactulose lactulose No lactulose [facility] 10 gram/15 10 gram/15 10 gram/15 Medical mL oral mL oral mL oral solution solution solution Lantus Lantus No Lantus [facility] Solostar Solostar Solostar Med ical U-100 U-100 U-100 Insulin 100 Insulin 100 Insulin unit/mL (3 unit/mL (3 100 mL) mL) unit/mL (3 subcutaneou subcutaneou mL) s pen s pen subcutaneo Inject 24 Inject 24 us pen units every units every Inject 24 day by day by units sub-q route sub-q route every day at bedtime. at bedtime. by sub-q route at bedtime. melatonin 5 melatonin 5 No 1capsul Q1D melatonin [facility] mg capsule mg capsule e(s) 5 mg Med ical Take 1 Take 1 capsule capsule capsule Take 1 every day every day capsule by oral by oral every day route at route at by oral bedtime. bedtime. route at bedtime. midodrine 5 midodrine 5 No 1 Q1D midodrine [facility] mg tablet mg tablet 5 mg Medic al Take 1 Take 1 tablet tablet tablet Take 1 every day every day tablet by oral by oral every day route for route for by oral 30 days. 30 days. route for 30 days. Miralax 17 Miralax 17 No 1packet Q1D Miralax 17 [facility] gram oral gram oral (s) gram oral Medical powder powder powder packet Take packet Take packet 1 packet 1 packet Take 1 every day every day packet by oral by oral every day route. route. by oral route. aspirin 81 aspirin 81 No 1 Q1D aspirin 81 [facility] mg mg mg Medical tablet,dago tablet,dago tablet,del yed release yed release ayed Take 1 Take 1 release tablet tablet Take 1 every day every day tablet by oral by oral every day route. route. by oral route. nystatin-tr nystatin-tr No nystatin-t [facility] iamcinolone iainolone [facility] 100,000 100,000 ne 100,000 unit/gram-0 unit/gram-0 unit/gram- .1 % .1 % 0.1 % topical topical topical ointment ointment ointment risperidone risperidone No risperidon [facility] 1 mg tablet 1 mg tablet e 1 mg Medical Take 1 Take 1 tablet tablet tablet Take 1 every day every day tablet by oral by oral every day route for route for by oral 30 days. 30 days. route for 30 days. sertraline sertraline No sertraline [facility] 100 mg 100 mg 100 mg Medical tablet Take tablet Take tablet 1 tablet 1 tablet Take 1 every day every day tablet by oral by oral every day route. route. by oral route. Spiriva Spiriva No Spiriva [facility] with with with Medical HandiHaler HandiHaler HandiHaler 18 mcg and 18 mcg and 18 mcg and inhalation inhalation inhalation capsules capsules capsules Inhale 1 Inhale 1 Inhale 1 capsule capsule capsule every day every day every day by by by inhalation inhalation inhalation route for route for route for 30 days. 30 days. 30 days. Tradjenta 5 Tradjenta 5 No Tradjenta [facility] mg tablet mg tablet 5 mg Medic al Take 1 Take 1 tablet tablet tablet Take 1 every day every day tablet by oral by oral every day route for route for by oral 30 days. 30 days. route for 30 days. tramadol 50 tramadol 50 No tramadol [facility] mg tablet mg tablet 50 mg [facility] Take 2 Take 2 tablet tablets tablets Take 2 every 12 every 12 tablets hours by hours by every 12 oral route oral route hours by for 30 for 30 oral route days. days. for 30 days. Triumeq 600 Triumeq 600 No 1 Q1D Triumeq [facility] mg-50 mg-50 600 mg-50 Medical mg-300 mg mg-300 mg mg-300 mg tablet Take tablet Take tablet 1 tablet 1 tablet Take 1 every day every day tablet by oral by oral every day route. route. by oral route. Tylenol Tylenol No 1 BID Tylenol [facility] Extra Extra Extra Medical Strength Strength Strength 500 mg 500 mg 500 mg tablet Take tablet Take tablet 1 tablet 1 tablet Take 1 twice a day twice a day tablet by oral by oral twice a route. route. day by oral route. zinc zinc No 1capsul Q1D zinc [facility] sulfate 50 sulfate 50 e(s) sulfate 50 Medical mg zinc mg zinc mg zinc (220 mg) (220 mg) (220 mg) capsule capsule capsule Take 1 Take 1 Take 1 capsule capsule capsule every day every day every day by oral by oral by oral route. route. route. atorvastati atorvastati No atorvastat [facility] n 40 mg n 40 mg in 40 mg Medic al tablet Take tablet Take tablet 1 tablet 1 tablet Take 1 every day every day tablet by oral by oral every day route. route. by oral route. benztropine benztropine No benztropin [facility] 1 mg tablet 1 mg tablet e 1 mg Medical Take 1 Take 1 tablet tablet tablet Take 1 every day every day tablet by oral by oral every day route for route for by oral 30 days. 30 days. route for 30 days. Biofreeze Biofreeze No Biofreeze [facility] (menthol) 5 (menthol) 5 (menthol) Medical % topical % topical 5 % gel every 4 gel every 4 topical hours as hours as gel every needed needed 4 hours as needed buspirone 5 buspirone 5 No buspirone [facility] mg tablet mg tablet 5 mg Medic al Take 1 Take 1 tablet tablet 3 tablet 3 Take 1 times a day times a day tablet 3 by oral by oral times a route for route for day by 30 days. 30 days. oral route for 30 days. diclofenac diclofenac No diclofenac [facility] 1 % topical 1 % topical 1 % M edical gel gel topical gel Advair Advair No Advair [facility] Diskus 500 Diskus 500 Diskus 500 Medical mcg-50 mcg-50 mcg-50 mcg/dose mcg/dose mcg/dose powder for powder for powder for inhalation inhalation inhalation Inhale 1 Inhale 1 Inhale 1 puff twice puff twice puff twice a day by a day by a day by inhalation inhalation inhalation route for route for route for 30 days. 30 days. 30 days. Artificial Artificial No 1applic Q1D Artificial [facility](s Eye Medical Lubricant Lubricant ) Lubricant 83 %-15 % 83 %-15 % 83 %-15 % ointment ointment ointment Apply 1 Apply 1 Apply 1 application application applicatio every day every day n every by by day by ophthalmic ophthalmic ophthalmic route. route. route. aspirin 81 aspirin 81 No 1 Q1D aspirin 81 [facility] mg mg mg Medical tablet,dago tablet,dago tablet,del yed release yed release ayed Take 1 Take 1 release tablet tablet Take 1 every day every day tablet by oral by oral every day route. route. by oral route. atorvastati atorvastati No atorvastat [facility] n 40 mg n 40 mg in 40 mg Medic al tablet Take tablet Take tablet 1 tablet 1 tablet Take 1 every day every day tablet by oral by oral every day route. route. by oral route. benztropine benztropine No benztropin [facility] 1 mg tablet 1 mg tablet e 1 mg Medical Take 1 Take 1 tablet tablet tablet Take 1 every day every day tablet by oral by oral every day route for route for by oral 30 days. 30 days. route for 30 days. divalproex divalproex No divalproex [facility] 125 mg 125 mg 125 mg Medical capsule,del capsule,del capsule,de ayed ayed layed release release release sprinkle sprinkle sprinkle Take 2 Take 2 Take 2 capsules 3 capsules 3 capsules 3 times a day times a day times a by oral by oral day by route for route for oral route 30 days. 30 days. for 30 days. Biofreeze Biofreeze No Biofreeze [facility] (menthol) 5 (menthol) 5 (menthol) Medical % topical % topical 5 % gel every 4 gel every 4 topical hours as hours as gel every needed needed 4 hours as needed buspirone 5 buspirone 5 No buspirone [facility] mg tablet mg tablet 5 mg Medic al Take 1 Take 1 tablet tablet 3 tablet 3 Take 1 times a day times a day tablet 3 by oral by oral times a route for route for day by 30 days. 30 days. oral route for 30 days. diclofenac diclofenac No diclofenac [facility] 1 % topical 1 % topical 1 % M edical gel gel topical gel divalproex divalproex No divalproex [facility] 125 mg 125 mg 125 mg Medical capsule,del capsule,del capsule,de ayed ayed layed release release release sprinkle sprinkle sprinkle Take 2 Take 2 Take 2 capsules 3 capsules 3 capsules 3 times a day times a day times a by oral by oral day by route for route for oral route 30 days. 30 days. for 30 days. fluticasone fluticasone No fluticason [facility] propionate propionate e Med ical 50 50 propionate mcg/actuati mcg/actuati 50 on nasal on nasal mcg/actuat spray,suspe spray,suspe ion nasal nsion nsion spray,susp ension gabapentin gabapentin No gabapentin [facility] 300 mg 300 mg 300 mg Medical capsule capsule capsule Take 1 Take 1 Take 1 capsule 3 capsule 3 capsule 3 times a day times a day times a by oral by oral day by route for route for oral route 30 days. 30 days. for 30 days. GlucaGen GlucaGen No GlucaGen Rachel via HypoKit 1 HypoKit 1 HypoKit 1 Medical mg mg mg Injection Injection Injection as needd as needd as needd PRN PRN PRN ipratropium ipratropium No ipratropiu [facility] 0.5 0.5 m 0.5 Medical mg-albutero mg-albutero mg-albuter l 3 mg (2.5 l 3 mg (2.5 ol 3 mg mg base)/3 mg base)/3 (2.5 mg mL mL base)/3 mL nebulizatio nebulizatio nebulizati n soln n soln on soln Inhale 3 mL Inhale 3 mL Inhale 3 every 6 every 6 mL every 6 hours by hours by hours by inhalation inhalation inhalation route as route as route as needed for needed for needed for 7 days. 7 days. 7 days. Lipitor Lipitor Yes Terrence 1 tablet Com jana Guerre[facility] lactulose lactulose No lactulose [facility] 10 gram/15 10 gram/15 10 gram/15 Medical mL oral mL oral mL oral solution solution solution Lantus Lantus No Lantus [facility] Solostar Solostar Solostar Med ical U-100 U-100 U-100 Insulin 100 Insulin 100 Insulin unit/mL (3 unit/mL (3 100 mL) mL) unit/mL (3 subcutaneou subcutaneou mL) s pen s pen subcutaneo Inject 24 Inject 24 us pen units every units every Inject 24 day by day by units sub-q route sub-q route every day at bedtime. at bedtime. by sub-q route at bedtime. ergocalcife ergocalcife No ergocalcif [facility] (vitamin (vitamin (vitamin D2) 1,250 D2) 1,250 D2) 1,250 mcg (50,000 mcg (50,000 mcg unit) unit) (50,000 capsule capsule unit) capsule melatonin 5 melatonin 5 No 1capsul Q1D melatonin [facility] mg capsule mg capsule e(s) 5 mg Med ical Take 1 Take 1 capsule capsule capsule Take 1 every day every day capsule by oral by oral every day route at route at by oral bedtime. bedtime. route at bedtime. midodrine 5 midodrine 5 No 1 Q1D midodrine [facility] mg tablet mg tablet 5 mg Medic al Take 1 Take 1 tablet tablet tablet Take 1 every day every day tablet by oral by oral every day route for route for by oral 30 days. 30 days. route for 30 days. Miralax 17 Miralax 17 No 1packet Q1D Miralax 17 [facility] gram oral gram oral (s) gram oral Medical powder powder powder packet Take packet Take packet 1 packet 1 packet Take 1 every day every day packet by oral by oral every day route. route. by oral route. risperidone risperidone No risperidon [facility] 1 mg tablet 1 mg tablet e 1 mg Medical Take 1 Take 1 tablet tablet tablet Take 1 every day every day tablet by oral by oral every day route for route for by oral 30 days. 30 days. route for 30 days. sertraline sertraline No sertraline [facility] 100 mg 100 mg 100 mg Medical tablet Take tablet Take tablet 1 tablet 1 tablet Take 1 every day every day tablet by oral by oral every day route. route. by oral route. Spiriva Spiriva No Spiriva [facility] with with with Medical HandiHaler HandiHaler HandiHaler 18 mcg and 18 mcg and 18 mcg and inhalation inhalation inhalation capsules capsules capsules Inhale 1 Inhale 1 Inhale 1 capsule capsule capsule every day every day every day by by by inhalation inhalation inhalation route for route for route for 30 days. 30 days. 30 days. Tradjenta 5 Tradjenta 5 No Tradjenta [facility] mg tablet mg tablet 5 mg Medic al Take 1 Take 1 tablet tablet tablet Take 1 every day every day tablet by oral by oral every day route for route for by oral 30 days. 30 days. route for 30 days. tramadol 50 tramadol 50 No tramadol [facility] mg tablet mg tablet 50 mg Medi lawrence Take 2 Take 2 tablet tablets tablets Take 2 every 12 every 12 tablets hours by hours by every 12 oral route oral route hours by for 30 for 30 oral route days. days. for 30 days. Triumeq 600 Triumeq 600 No 1 Q1D Triumeq [facility] mg-50 mg-50 600 mg-50 Medical mg-300 mg mg-300 mg mg-300 mg tablet Take tablet Take tablet 1 tablet 1 tablet Take 1 every day every day tablet by oral by oral every day route. route. by oral route. Tylenol Tylenol No 1 BID Tylenol [facility] Extra Extra Extra Medical Strength Strength Strength 500 mg 500 mg 500 mg tablet Take tablet Take tablet 1 tablet 1 tablet Take 1 twice a day twice a day tablet by oral by oral twice a route. route. day by oral route. fluticasone fluticasone No fluticason [facility] propionate propionate e Med ical 50 50 propionate mcg/actuati mcg/actuati 50 on nasal on nasal mcg/actuat spray,suspe spray,suspe ion nasal nsion nsion spray,susp ension zinc zinc No 1capsul Q1D zinc [facility] sulfate 50 sulfate 50 e(s) sulfate 50 Medical mg zinc mg zinc mg zinc (220 mg) (220 mg) (220 mg) capsule capsule capsule Take 1 Take 1 Take 1 capsule capsule capsule every day every day every day by oral by oral by oral route. route. route. gabapentin gabapentin No gabapentin [facility] 300 mg 300 mg 300 mg Medical capsule capsule capsule Take 1 Take 1 Take 1 capsule 3 capsule 3 capsule 3 times a day times a day times a by oral by oral day by route for route for oral route 30 days. 30 days. for 30 days. GlucaGen GlucaGen No GlucaGen [facility] via HypoKit 1 HypoKit 1 HypoKit 1 Medical mg mg mg Injection Injection Injection as needd as needd as needd PRN PRN PRN Advair Advair No Advair [facility] Diskus 500 Diskus 500 Diskus 500 Medical mcg-50 mcg-50 mcg-50 mcg/dose mcg/dose mcg/dose powder for powder for powder for inhalation inhalation inhalation Inhale 1 Inhale 1 Inhale 1 puff twice puff twice puff twice a day by a day by a day by inhalation inhalation inhalation route for route for route for 30 days. 30 days. 30 days. Artificial Artificial No 1applic Q1D Artificial [facility](s Eye Medical Lubricant Lubricant ) Lubricant 83 %-15 % 83 %-15 % 83 %-15 % ointment ointment ointment Apply 1 Apply 1 Apply 1 application application applicatio every day every day n every by by day by ophthalmic ophthalmic ophthalmic route. route. route. ipratropium ipratropium No ipratropiu [facility] 0.5 0.5 m 0.5 Medical mg-albutero mg-albutero mg-albuter l 3 mg (2.5 l 3 mg (2.5 ol 3 mg mg base)/3 mg base)/3 (2.5 mg mL mL base)/3 mL nebulizatio nebulizatio nebulizati n soln n soln on soln Inhale 3 mL Inhale 3 mL Inhale 3 every 6 every 6 mL every 6 hours by hours by hours by inhalation inhalation inhalation route as route as route as needed for needed for needed for 7 days. 7 days. 7 days. aspirin 81 aspirin 81 No 1 Q1D aspirin 81 [facility] mg mg mg Medical tablet,dago tablet,dago tablet,del yed release yed release ayed Take 1 Take 1 release tablet tablet Take 1 every day every day tablet by oral by oral every day route. route. by oral route. atorvastati atorvastati No atorvastat [facility] n 40 mg n 40 mg in 40 mg Medic al tablet Take tablet Take tablet 1 tablet 1 tablet Take 1 every day every day tablet by oral by oral every day route. route. by oral route. benztropine benztropine No benztropin [facility] 1 mg tablet 1 mg tablet e 1 mg Medical Take 1 Take 1 tablet tablet tablet Take 1 every day every day tablet by oral by oral every day route for route for by oral 30 days. 30 days. route for 30 days. Biofreeze Biofreeze No Biofreeze [facility] (menthol) 5 (menthol) 5 (menthol) Medical % topical % topical 5 % gel every 4 gel every 4 topical hours as hours as gel every needed needed 4 hours as needed buspirone 5 buspirone 5 No buspirone [facility] mg tablet mg tablet 5 mg Medic al Take 1 Take 1 tablet tablet 3 tablet 3 Take 1 times a day times a day tablet 3 by oral by oral times a route for route for day by 30 days. 30 days. oral route for 30 days. diclofenac diclofenac No diclofenac [facility] 1 % topical 1 % topical 1 % M edical gel gel topical gel divalproex divalproex No divalproex [facility] 125 mg 125 mg 125 mg Medical capsule,del capsule,del capsule,de ayed ayed layed release release release sprinkle sprinkle sprinkle Take 2 Take 2 Take 2 capsules 3 capsules 3 capsules 3 times a day times a day times a by oral by oral day by route for route for oral route 30 days. 30 days. for 30 days. fluticasone fluticasone No fluticason [facility] propionate propionate e Med ical 50 50 propionate mcg/actuati mcg/actuati 50 on nasal on nasal mcg/actuat spray,suspe spray,suspe ion nasal nsion nsion spray,susp ension gabapentin gabapentin No gabapentin [facility] 300 mg 300 mg 300 mg Medical capsule capsule capsule Take 1 Take 1 Take 1 capsule 3 capsule 3 capsule 3 times a day times a day times a by oral by oral day by route for route for oral route 30 days. 30 days. for 30 days. GlucaGen GlucaGen No GlucaGen [facility] via HypoKit 1 HypoKit 1 HypoKit 1 Medical mg mg mg Injection Injection Injection as needd as needd as needd PRN PRN PRN lactulose lactulose No lactulose [facility] 10 gram/15 10 gram/15 10 gram/15 Medical mL oral mL oral mL oral solution solution solution ipratropium ipratropium No ipratropiu [facility] 0.5 0.5 m 0.5 Medical mg-albutero mg-albutero mg-albuter l 3 mg (2.5 l 3 mg (2.5 ol 3 mg mg base)/3 mg base)/3 (2.5 mg mL mL base)/3 mL nebulizatio nebulizatio nebulizati n soln n soln on soln Inhale 3 mL Inhale 3 mL Inhale 3 every 6 every 6 mL every 6 hours by hours by hours by inhalation inhalation inhalation route as route as route as needed for needed for needed for 7 days. 7 days. 7 days. lactulose lactulose No lactulose [facility] 10 gram/15 10 gram/15 10 gram/15 Medical mL oral mL oral mL oral solution solution solution Lantus Lantus No Lantus [facility] Solostar Solostar Solostar Med ical U-100 U-100 U-100 Insulin 100 Insulin 100 Insulin unit/mL (3 unit/mL (3 100 mL) mL) unit/mL (3 subcutaneou subcutaneou mL) s pen s pen subcutaneo Inject 24 Inject 24 us pen units every units every Inject 24 day by day by units sub-q route sub-q route every day at bedtime. at bedtime. by sub-q route at bedtime. melatonin 5 melatonin 5 No 1capsul Q1D melatonin [facility] mg capsule mg capsule e(s) 5 mg Med ical Take 1 Take 1 capsule capsule capsule Take 1 every day every day capsule by oral by oral every day route at route at by oral bedtime. bedtime. route at bedtime. midodrine 5 midodrine 5 No 1 Q1D midodrine [facility] mg tablet mg tablet 5 mg Medic al Take 1 Take 1 tablet tablet tablet Take 1 every day every day tablet by oral by oral every day route for route for by oral 30 days. 30 days. route for 30 days. Miralax 17 Miralax 17 No 1packet Q1D Miralax 17 [facility] gram oral gram oral (s) gram oral Medical powder powder powder packet Take packet Take packet 1 packet 1 packet Take 1 every day every day packet by oral by oral every day route. route. by oral route. risperidone risperidone No risperidon [facility] 1 mg tablet 1 mg tablet e 1 mg Medical Take 1 Take 1 tablet tablet tablet Take 1 every day every day tablet by oral by oral every day route for route for by oral 30 days. 30 days. route for 30 days. sertraline sertraline No sertraline [facility] 100 mg 100 mg 100 mg Medical tablet Take tablet Take tablet 1 tablet 1 tablet Take 1 every day every day tablet by oral by oral every day route. route. by oral route. Spiriva Spiriva No Spiriva [facility] with with with Medical HandiHaler HandiHaler HandiHaler 18 mcg and 18 mcg and 18 mcg and inhalation inhalation inhalation capsules capsules capsules Inhale 1 Inhale 1 Inhale 1 capsule capsule capsule every day every day every day by by by inhalation inhalation inhalation route for route for route for 30 days. 30 days. 30 days. Tradjenta 5 Tradjenta 5 No Tradjenta [facility] mg tablet mg tablet 5 mg Medic al Take 1 Take 1 tablet tablet tablet Take 1 every day every day tablet by oral by oral every day route for route for by oral 30 days. 30 days. route for 30 days. Lantus Lantus No Lantus [facility] Solostar Solostar Solostar Med ical U-100 U-100 U-100 Insulin 100 Insulin 100 Insulin unit/mL (3 unit/mL (3 100 mL) mL) unit/mL (3 subcutaneou subcutaneou mL) s pen s pen subcutaneo Inject 24 Inject 24 us pen units every units every Inject 24 day by day by units sub-q route sub-q route every day at bedtime. at bedtime. by sub-q route at bedtime. tramadol 50 tramadol 50 No tramadol [facility] mg tablet mg tablet 50 mg Medi lawrence Take 2 Take 2 tablet tablets tablets Take 2 every 12 every 12 tablets hours by hours by every 12 oral route oral route hours by for 30 for 30 oral route days. days. for 30 days. Triumeq 600 Triumeq 600 No 1 Q1D Triumeq [facility] mg-50 mg-50 600 mg-50 Medical mg-300 mg mg-300 mg mg-300 mg tablet Take tablet Take tablet 1 tablet 1 tablet Take 1 every day every day tablet by oral by oral every day route. route. by oral route. Tylenol Tylenol No 1 BID Tylenol [facility] Extra Extra Extra Medical Strength Strength Strength 500 mg 500 mg 500 mg tablet Take tablet Take tablet 1 tablet 1 tablet Take 1 twice a day twice a day tablet by oral by oral twice a route. route. day by oral route. Vitamin D3 Vitamin D3 No 1capsul Q1D Vitamin D3 [facility] 50 mcg 50 mcg e(s) 50 mcg Medical (2,000 (2,000 (2,000 unit) unit) unit) capsule capsule capsule Take 1 Take 1 Take 1 capsule capsule capsule every day every day every day by oral by oral by oral route for route for route for 30 days. 30 days. 30 days. zinc zinc No 1capsul Q1D zinc [facility] sulfate 50 sulfate 50 e(s) sulfate 50 Medical mg zinc mg zinc mg zinc (220 mg) (220 mg) (220 mg) capsule capsule capsule Take 1 Take 1 Take 1 capsule capsule capsule every day every day every day by oral by oral by oral route. route. route. melatonin 5 melatonin 5 No 1capsul Q1D melatonin [facility] mg capsule mg capsule e(s) 5 mg Med ical Take 1 Take 1 capsule capsule capsule Take 1 every day every day capsule by oral by oral every day route at route at by oral bedtime. bedtime. route at bedtime. Miralax 17 Miralax 17 No 1packet Q1D Miralax 17 [facility] gram oral gram oral (s) gram oral Medical powder powder powder packet Take packet Take packet 1 packet 1 packet Take 1 every day every day packet by oral by oral every day route. route. by oral route. nystatin nystatin No nystatin [facility] via 100,000 100,000 100,000 Medica l unit/gram unit/gram unit/gram topical topical topical ointment ointment ointment risperidone risperidone No risperidon [facility] 1 mg tablet 1 mg tablet e 1 mg Medical Take 1 Take 1 tablet tablet tablet Take 1 every day every day tablet by oral by oral every day route for route for by oral 30 days. 30 days. route for 30 days. sertraline sertraline No sertraline [facility] 100 mg 100 mg 100 mg Medical tablet Take tablet Take tablet 1 tablet 1 tablet Take 1 every day every day tablet by oral by oral every day route. route. by oral route. Advair Advair No Advair [facility] Diskus 500 Diskus 500 Diskus 500 Medical mcg-50 mcg-50 mcg-50 mcg/dose mcg/dose mcg/dose powder for powder for powder for inhalation inhalation inhalation Inhale 1 Inhale 1 Inhale 1 puff twice puff twice puff twice a day by a day by a day by inhalation inhalation inhalation route for route for route for 30 days. 30 days. 30 days. Artificial Artificial No 1applic Q1D Artificial [facility](s Eye Medical Lubricant Lubricant ) Lubricant 83 %-15 % 83 %-15 % 83 %-15 % ointment ointment ointment Apply 1 Apply 1 Apply 1 application application applicatio every day every day n every by by day by ophthalmic ophthalmic ophthalmic route. route. route. aspirin 81 aspirin 81 No 1 Q1D aspirin 81 [facility] mg mg mg Medical tablet,dago tablet,dago tablet,del yed release yed release ayed Take 1 Take 1 release tablet tablet Take 1 every day every day tablet by oral by oral every day route. route. by oral route. atorvastati atorvastati No atorvastat [facility] n 40 mg n 40 mg in 40 mg Medic al tablet Take tablet Take tablet 1 tablet 1 tablet Take 1 every day every day tablet by oral by oral every day route. route. by oral route. benztropine benztropine No benztropin [facility] 1 mg tablet 1 mg tablet e 1 mg Medical Take 1 Take 1 tablet tablet tablet Take 1 every day every day tablet by oral by oral every day route for route for by oral 30 days. 30 days. route for 30 days. Biofreeze Biofreeze No Biofreeze [facility] (menthol) 5 (menthol) 5 (menthol) Medical % topical % topical 5 % gel every 4 gel every 4 topical hours as hours as gel every needed needed 4 hours as needed buspirone 5 buspirone 5 No buspirone [facility] mg tablet mg tablet 5 mg Medic al Take 1 Take 1 tablet tablet 3 tablet 3 Take 1 times a day times a day tablet 3 by oral by oral times a route for route for day by 30 days. 30 days. oral route for 30 days. diclofenac diclofenac No diclofenac [facility] 1 % topical 1 % topical 1 % M edical gel gel topical gel divalproex divalproex No divalproex [facility] 125 mg 125 mg 125 mg Medical capsule,del capsule,del capsule,de ayed ayed layed release release release sprinkle sprinkle sprinkle Take 2 Take 2 Take 2 capsules 3 capsules 3 capsules 3 times a day times a day times a by oral by oral day by route for route for oral route 30 days. 30 days. for 30 days. Spiriva Spiriva No Spiriva [facility] with with with Medical HandiHaler HandiHaler HandiHaler 18 mcg and 18 mcg and 18 mcg and inhalation inhalation inhalation capsules capsules capsules Inhale 1 Inhale 1 Inhale 1 capsule capsule capsule every day every day every day by by by inhalation inhalation inhalation route for route for route for 30 days. 30 days. 30 days. fluticasone fluticasone No fluticason [facility] propionate propionate e Med ical 50 50 propionate mcg/actuati mcg/actuati 50 on nasal on nasal mcg/actuat spray,suspe spray,suspe ion nasal nsion nsion spray,susp ension gabapentin gabapentin No gabapentin [facility] 300 mg 300 mg 300 mg Medical capsule capsule capsule Take 1 Take 1 Take 1 capsule 3 capsule 3 capsule 3 times a day times a day times a by oral by oral day by route for route for oral route 30 days. 30 days. for 30 days. GlucaGen GlucaGen No GlucaGen [facility] via HypoKit 1 HypoKit 1 HypoKit 1 Medical mg mg mg Injection Injection Injection as needd as needd as needd PRN PRN PRN ipratropium ipratropium No ipratropiu [facility] 0.5 0.5 m 0.5 Medical mg-albutero mg-albutero mg-albuter l 3 mg (2.5 l 3 mg (2.5 ol 3 mg mg base)/3 mg base)/3 (2.5 mg mL mL base)/3 mL nebulizatio nebulizatio nebulizati n soln n soln on soln Inhale 3 mL Inhale 3 mL Inhale 3 every 6 every 6 mL every 6 hours by hours by hours by inhalation inhalation inhalation route as route as route as needed for needed for needed for 7 days. 7 days. 7 days. lactulose lactulose No lactulose [facility] 10 gram/15 10 gram/15 10 gram/15 Medical mL oral mL oral mL oral solution solution solution Lantus Lantus No Lantus [facility] Solostar Solostar Solostar Med ical U-100 U-100 U-100 Insulin 100 Insulin 100 Insulin unit/mL (3 unit/mL (3 100 mL) mL) unit/mL (3 subcutaneou subcutaneou mL) s pen s pen subcutaneo Inject 24 Inject 24 us pen units every units every Inject 24 day by day by units sub-q route sub-q route every day at bedtime. at bedtime. by sub-q route at bedtime. magnesium magnesium No 1 Q1D magnesium [facility] oxide 400 oxide 400 oxide 400 Medical mg (241.3 mg (241.3 mg (241.3 mg mg mg magnesium) magnesium) magnesium) tablet Take tablet Take tablet 1 tablet 1 tablet Take 1 every day every day tablet by oral by oral every day route for route for by oral 30 days. 30 days. route for 30 days. melatonin 5 melatonin 5 No 1capsul Q1D melatonin [facility] mg capsule mg capsule e(s) 5 mg Med ical Take 1 Take 1 capsule capsule capsule Take 1 every day every day capsule by oral by oral every day route at route at by oral bedtime. bedtime. route at bedtime. midodrine 5 midodrine 5 No 1 Q1D midodrine [facility] mg tablet mg tablet 5 mg Medic al Take 1 Take 1 tablet tablet tablet Take 1 every day every day tablet by oral by oral every day route for route for by oral 30 days. 30 days. route for 30 days. Miralax 17 Miralax 17 No 1packet Q1D Miralax 17 [facility] gram oral gram oral (s) gram oral Medical powder powder powder packet Take packet Take packet 1 packet 1 packet Take 1 every day every day packet by oral by oral every day route. route. by oral route. Tradjenta 5 Tradjenta 5 No Tradjenta [facility] mg tablet mg tablet 5 mg Medic al Take 1 Take 1 tablet tablet tablet Take 1 every day every day tablet by oral by oral every day route for route for by oral 30 days. 30 days. route for 30 days. risperidone risperidone No risperidon [facility] 1 mg tablet 1 mg tablet e 1 mg Medical Take 1 Take 1 tablet tablet tablet Take 1 every day every day tablet by oral by oral every day route for route for by oral 30 days. 30 days. route for 30 days. sertraline sertraline No sertraline [facility] 100 mg 100 mg 100 mg Medical tablet Take tablet Take tablet 1 tablet 1 tablet Take 1 every day every day tablet by oral by oral every day route. route. by oral route. Spiriva Spiriva No Spiriva [facility] with with with Medical HandiHaler HandiHaler HandiHaler 18 mcg and 18 mcg and 18 mcg and inhalation inhalation inhalation capsules capsules capsules Inhale 1 Inhale 1 Inhale 1 capsule capsule capsule every day every day every day by by by inhalation inhalation inhalation route for route for route for 30 days. 30 days. 30 days. Tradjenta 5 Tradjenta 5 No Tradjenta [facility] mg tablet mg tablet 5 mg Medic al Take 1 Take 1 tablet tablet tablet Take 1 every day every day tablet by oral by oral every day route for route for by oral 30 days. 30 days. route for 30 days. tramadol 50 tramadol 50 No 2 Q12H tramadol [facility] mg tablet mg tablet 50 mg Medi lawrence Take 2 Take 2 tablet tablets tablets Take 2 every 12 every 12 tablets hours by hours by every 12 oral route oral route hours by for 30 for 30 oral route days. days. for 30 days. Triumeq 600 Triumeq 600 No 1 Q1D Triumeq [facility] mg-50 mg-50 600 mg-50 Medical mg-300 mg mg-300 mg mg-300 mg tablet Take tablet Take tablet 1 tablet 1 tablet Take 1 every day every day tablet by oral by oral every day route. route. by oral route. Tylenol Tylenol No 1 BID Tylenol [facility] Extra Extra Extra Medical Strength Strength Strength 500 mg 500 mg 500 mg tablet Take tablet Take tablet 1 tablet 1 tablet Take 1 twice a day twice a day tablet by oral by oral twice a route. route. day by oral route. Vitamin D3 Vitamin D3 No 1capsul Q1D Vitamin D3 [facility] 50 mcg 50 mcg e(s) 50 mcg Medical (2,000 (2,000 (2,000 unit) unit) unit) capsule capsule capsule Take 1 Take 1 Take 1 capsule capsule capsule every day every day every day by oral by oral by oral route for route for route for 30 days. 30 days. 30 days. zinc zinc No 1capsul Q1D zinc [facility] sulfate 50 sulfate 50 e(s) sulfate 50 Medical mg zinc mg zinc mg zinc (220 mg) (220 mg) (220 mg) capsule capsule capsule Take 1 Take 1 Take 1 capsule capsule capsule every day every day every day by oral by oral by oral route. route. route. tramadol 50 tramadol 50 No tramadol [facility] mg tablet mg tablet 50 mg Medi lawrence Take 2 Take 2 tablet tablets tablets Take 2 every 12 every 12 tablets hours by hours by every 12 oral route oral route hours by for 30 for 30 oral route days. days. for 30 days. Triumeq 600 Triumeq 600 No 1 Q1D Triumeq [facility] mg-50 mg-50 600 mg-50 Medical mg-300 mg mg-300 mg mg-300 mg tablet Take tablet Take tablet 1 tablet 1 tablet Take 1 every day every day tablet by oral by oral every day route. route. by oral route. Tylenol Tylenol No 1 BID Tylenol [facility] Extra Extra Extra Medical Strength Strength Strength 500 mg 500 mg 500 mg tablet Take tablet Take tablet 1 tablet 1 tablet Take 1 twice a day twice a day tablet by oral by oral twice a route. route. day by oral route. Advair Advair No Advair [facility] Diskus 500 Diskus 500 Diskus 500 Medical mcg-50 mcg-50 mcg-50 mcg/dose mcg/dose mcg/dose powder for powder for powder for inhalation inhalation inhalation Inhale 1 Inhale 1 Inhale 1 puff twice puff twice puff twice a day by a day by a day by inhalation inhalation inhalation route for route for route for 30 days. 30 days. 30 days. Artificial Artificial No 1applic Q1D Artificial [facility](s Eye Medical Lubricant Lubricant ) Lubricant 83 %-15 % 83 %-15 % 83 %-15 % ointment ointment ointment Apply 1 Apply 1 Apply 1 application application applicatio every day every day n every by by day by ophthalmic ophthalmic ophthalmic route. route. route. aspirin 81 aspirin 81 No 1 Q1D aspirin 81 [facility] mg mg mg Medical tablet,dago tablet,dago tablet,del yed release yed release ayed Take 1 Take 1 release tablet tablet Take 1 every day every day tablet by oral by oral every day route. route. by oral route. atorvastati atorvastati No atorvastat [facility] n 40 mg n 40 mg in 40 mg Medic al tablet Take tablet Take tablet 1 tablet 1 tablet Take 1 every day every day tablet by oral by oral every day route. route. by oral route. benztropine benztropine No benztropin [facility] 1 mg tablet 1 mg tablet e 1 mg Medical Take 1 Take 1 tablet tablet tablet Take 1 every day every day tablet by oral by oral every day route for route for by oral 30 days. 30 days. route for 30 days. Biofreeze Biofreeze No Biofreeze [facility] (menthol) 5 (menthol) 5 (menthol) Medical % topical % topical 5 % gel every 4 gel every 4 topical hours as hours as gel every needed needed 4 hours as needed buspirone 5 buspirone 5 No buspirone [facility] mg tablet mg tablet 5 mg Medic al Take 1 Take 1 tablet tablet 3 tablet 3 Take 1 times a day times a day tablet 3 by oral by oral times a route for route for day by 30 days. 30 days. oral route for 30 days. zinc zinc No 1capsul Q1D zinc [facility] sulfate 50 sulfate 50 e(s) sulfate 50 Medical mg zinc mg zinc mg zinc (220 mg) (220 mg) (220 mg) capsule capsule capsule Take 1 Take 1 Take 1 capsule capsule capsule every day every day every day by oral by oral by oral route. route. route. diclofenac diclofenac No diclofenac [facility] 1 % topical 1 % topical 1 % M edical gel gel topical gel divalproex divalproex No divalproex [facility] 125 mg 125 mg 125 mg Medical capsule,del capsule,del capsule,de ayed ayed layed release release release sprinkle sprinkle sprinkle Take 2 Take 2 Take 2 capsules 3 capsules 3 capsules 3 times a day times a day times a by oral by oral day by route for route for oral route 30 days. 30 days. for 30 days. fluticasone fluticasone No fluticason [facility] propionate propionate e Med ical 50 50 propionate mcg/actuati mcg/actuati 50 on nasal on nasal mcg/actuat spray,suspe spray,suspe ion nasal nsion nsion spray,susp ension gabapentin gabapentin No gabapentin [facility] 300 mg 300 mg 300 mg Medical capsule capsule capsule Take 1 Take 1 Take 1 capsule 3 capsule 3 capsule 3 times a day times a day times a by oral by oral day by route for route for oral route 30 days. 30 days. for 30 days. GlucaGen GlucaGen No GlucaGen [facility] via HypoKit 1 HypoKit 1 HypoKit 1 Medical mg mg mg Injection Injection Injection as needd as needd as needd PRN PRN PRN ipratropium ipratropium No ipratropiu [facility] 0.5 0.5 m 0.5 Medical mg-albutero mg-albutero mg-albuter l 3 mg (2.5 l 3 mg (2.5 ol 3 mg mg base)/3 mg base)/3 (2.5 mg mL mL base)/3 mL nebulizatio nebulizatio nebulizati n soln n soln on soln Inhale 3 mL Inhale 3 mL Inhale 3 every 6 every 6 mL every 6 hours by hours by hours by inhalation inhalation inhalation route as route as route as needed for needed for needed for 7 days. 7 days. 7 days. lactulose lactulose No lactulose [facility] 10 gram/15 10 gram/15 10 gram/15 Medical mL oral mL oral mL oral solution solution solution Lantus Lantus No Lantus [facility] Solostar Solostar Solostar Med ical U-100 U-100 U-100 Insulin 100 Insulin 100 Insulin unit/mL (3 unit/mL (3 100 mL) mL) unit/mL (3 subcutaneou subcutaneou mL) s pen s pen subcutaneo Inject 24 Inject 24 us pen units every units every Inject 24 day by day by units sub-q route sub-q route every day at bedtime. at bedtime. by sub-q route at bedtime. magnesium magnesium No 1 Q1D magnesium [facility] oxide 400 oxide 400 oxide 400 Medical mg (241.3 mg (241.3 mg (241.3 mg mg mg magnesium) magnesium) magnesium) tablet Take tablet Take tablet 1 tablet 1 tablet Take 1 every day every day tablet by oral by oral every day route for route for by oral 30 days. 30 days. route for 30 days. Gabapentin Gabapentin Yes [facility] 1 capsule [facility] melatonin 5 melatonin 5 No 1capsul Q1D melatonin [facility] mg capsule mg capsule e(s) 5 mg Med ical Take 1 Take 1 capsule capsule capsule Take 1 every day every day capsule by oral by oral every day route at route at by oral bedtime. bedtime. route at bedtime. midodrine 5 midodrine 5 No 1 Q1D midodrine [facility] mg tablet mg tablet 5 mg Medic al Take 1 Take 1 tablet tablet tablet Take 1 every day every day tablet by oral by oral every day route for route for by oral 30 days. 30 days. route for 30 days. Miralax 17 Miralax 17 No 1packet Q1D Miralax 17 [facility] gram oral gram oral (s) gram oral Medical powder powder powder packet Take packet Take packet 1 packet 1 packet Take 1 every day every day packet by oral by oral every day route. route. by oral route. risperidone risperidone No risperidon [facility] 1 mg tablet 1 mg tablet e 1 mg Medical Take 1 Take 1 tablet tablet tablet Take 1 every day every day tablet by oral by oral every day route for route for by oral 30 days. 30 days. route for 30 days. sertraline sertraline No sertraline [facility] 100 mg 100 mg 100 mg Medical tablet Take tablet Take tablet 1 tablet 1 tablet Take 1 every day every day tablet by oral by oral every day route. route. by oral route. Spiriva Spiriva No Spiriva [facility] with with with Medical HandiHaler HandiHaler HandiHaler 18 mcg and 18 mcg and 18 mcg and inhalation inhalation inhalation capsules capsules capsules Inhale 1 Inhale 1 Inhale 1 capsule capsule capsule every day every day every day by by by inhalation inhalation inhalation route for route for route for 30 days. 30 days. 30 days. Tradjenta 5 Tradjenta 5 No Tradjenta [facility] mg tablet mg tablet 5 mg Medic al Take 1 Take 1 tablet tablet tablet Take 1 every day every day tablet by oral by oral every day route for route for by oral 30 days. 30 days. route for 30 days. tramadol 50 tramadol 50 No 2 Q12H tramadol [facility] mg tablet mg tablet 50 mg Medi [place] Take 2 Take 2 tablet tablets tablets Take 2 every 12 every 12 tablets hours by hours by every 12 oral route oral route hours by for 30 for 30 oral route days. days. for 30 days. Triumeq 600 Triumeq 600 No 1 Q1D Triumeq [facility] mg-50 mg-50 600 mg-50 Medical mg-300 mg mg-300 mg mg-300 mg tablet Take tablet Take tablet 1 tablet 1 tablet Take 1 every day every day tablet by oral by oral every day route. route. by oral route. Tylenol Tylenol No 1 BID Tylenol [facility] Extra Extra Extra Medical Strength Strength Strength 500 mg 500 mg 500 mg tablet Take tablet Take tablet 1 tablet 1 tablet Take 1 twice a day twice a day tablet by oral by oral twice a route. route. day by oral route. Vitamin D3 Vitamin D3 No 1capsul Q1D Vitamin D3 [facility] 50 mcg 50 mcg e(s) 50 mcg Medical (2,000 (2,000 (2,000 unit) unit) unit) capsule capsule capsule Take 1 Take 1 Take 1 capsule capsule capsule every day every day every day by oral by oral by oral route for route for route for 30 days. 30 days. 30 days. zinc zinc No 1capsul Q1D zinc [facility] sulfate 50 sulfate 50 e(s) sulfate 50 Medical mg zinc mg zinc mg zinc (220 mg) (220 mg) (220 mg) capsule capsule capsule Take 1 Take 1 Take 1 capsule capsule capsule every day every day every day by oral by oral by oral route. route. route. Advair Advair No Advair [facility] Diskus 500 Diskus 500 Diskus 500 Medical mcg-50 mcg-50 mcg-50 mcg/dose mcg/dose mcg/dose powder for powder for powder for inhalation inhalation inhalation Inhale 1 Inhale 1 Inhale 1 puff twice puff twice puff twice a day by a day by a day by inhalation inhalation inhalation route for route for route for 30 days. 30 days. 30 days. Artificial Artificial No 1applic Q1D Artificial [facility](s Eye Medical Lubricant Lubricant ) Lubricant 83 %-15 % 83 %-15 % 83 %-15 % ointment ointment ointment Apply 1 Apply 1 Apply 1 application application applicatio every day every day n every by by day by ophthalmic ophthalmic ophthalmic route. route. route. aspirin 81 aspirin 81 No 1 Q1D aspirin 81 [facility] mg mg mg Medical tablet,dago tablet,dago tablet,del yed release yed release ayed Take 1 Take 1 release tablet tablet Take 1 every day every day tablet by oral by oral every day route. route. by oral route. atorvastati atorvastati No atorvastat [facility] n 40 mg n 40 mg in 40 mg Medic al tablet Take tablet Take tablet 1 tablet 1 tablet Take 1 every day every day tablet by oral by oral every day route. route. by oral route. benztropine benztropine No benztropin [facility] 1 mg tablet 1 mg tablet e 1 mg Medical Take 1 Take 1 tablet tablet tablet Take 1 every day every day tablet by oral by oral every day route for route for by oral 30 days. 30 days. route for 30 days. Biofreeze Biofreeze No Biofreeze [facility] (menthol) 5 (menthol) 5 (menthol) Medical % topical % topical 5 % gel every 4 gel every 4 topical hours as hours as gel every needed needed 4 hours as needed buspirone 5 buspirone 5 No buspirone [facility] mg tablet mg tablet 5 mg Medic al Take 1 Take 1 tablet tablet 3 tablet 3 Take 1 times a day times a day tablet 3 by oral by oral times a route for route for day by 30 days. 30 days. oral route for 30 days. diclofenac diclofenac No diclofenac [facility] 1 % topical 1 % topical 1 % M edical gel gel topical gel divalproex divalproex No divalproex [facility] 125 mg 125 mg 125 mg Medical capsule,del capsule,del capsule,de ayed ayed layed release release release sprinkle sprinkle sprinkle Take 2 Take 2 Take 2 capsules 3 capsules 3 capsules 3 times a day times a day times a by oral by oral day by route for route for oral route 30 days. 30 days. for 30 days. fluticasone fluticasone No fluticason [facility] propionate propionate e Med ical 50 50 propionate mcg/actuati mcg/actuati 50 on nasal on nasal mcg/actuat spray,suspe spray,suspe ion nasal nsion nsion spray,susp ension fosfomycin fosfomycin No fosfomycin [facility] tromethamin tromethamin tromethami Medical e 3 gram e 3 gram ne 3 gram oral packet oral packet oral packet gabapentin gabapentin No gabapentin [facility] 300 mg 300 mg 300 mg Medical capsule capsule capsule Take 1 Take 1 Take 1 capsule 3 capsule 3 capsule 3 times a day times a day times a by oral by oral day by route for route for oral route 30 days. 30 days. for 30 days. GlucaGen GlucaGen No GlucaGen [facility] via HypoKit 1 HypoKit 1 HypoKit 1 Medical mg mg mg Injection Injection Injection as needd as needd as needd PRN PRN PRN insulin insulin No insulin [facility] glargine glargine glargine Med ical (U-100) 100 (U-100) 100 (U-100) unit/mL (3 unit/mL (3 100 mL) mL) unit/mL (3 subcutaneou subcutaneou mL) s pen s pen subcutaneo Inject 24 Inject 24 us pen units every units every Inject 24 day by day by units sub-q route sub-q route every day at bedtime. at bedtime. by sub-q route at bedtime. ipratropium ipratropium No ipratropiu [facility] 0.5 0.5 m 0.5 Medical mg-albutero mg-albutero mg-albuter l 3 mg (2.5 l 3 mg (2.5 ol 3 mg mg base)/3 mg base)/3 (2.5 mg mL mL base)/3 mL nebulizatio nebulizatio nebulizati n soln n soln on soln Inhale 3 mL Inhale 3 mL Inhale 3 every 6 every 6 mL every 6 hours by hours by hours by inhalation inhalation inhalation route as route as route as needed for needed for needed for 7 days. 7 days. 7 days. lactulose lactulose No lactulose [facility] 10 gram/15 10 gram/15 10 gram/15 Medical mL oral mL oral mL oral solution solution solution magnesium magnesium No 1 Q1D magnesium [facility] oxide 400 oxide 400 oxide 400 Medical mg (241.3 mg (241.3 mg (241.3 mg mg mg magnesium) magnesium) magnesium) tablet Take tablet Take tablet 1 tablet 1 tablet Take 1 every day every day tablet by oral by oral every day route for route for by oral 30 days. 30 days. route for 30 days. melatonin 5 melatonin 5 No 1capsul Q1D melatonin [facility] mg capsule mg capsule e(s) 5 mg Med ical Take 1 Take 1 capsule capsule capsule Take 1 every day every day capsule by oral by oral every day route at route at by oral bedtime. bedtime. route at bedtime. midodrine midodrine No 1 TID midodrine [facility] 10 mg 10 mg 10 mg Medical tablet Take tablet Take tablet 1 tablet 3 1 tablet 3 Take 1 times a day times a day tablet 3 by oral by oral times a route for route for day by 90 days. 90 days. oral route for 90 days. Miralax 17 Miralax 17 No 1packet Q1D Miralax 17 [facility] gram oral gram oral (s) gram oral Medical powder powder powder packet Take packet Take packet 1 packet 1 packet Take 1 every day every day packet by oral by oral every day route. route. by oral route. nitrofurant nitrofurant No nitrofuran [facility] oin oin toin Medical monohydrate monohydrate monohydrat /macrocryst /macrocryst e/macrocry als 100 mg als 100 mg stals 100 capsule capsule mg capsule risperidone risperidone No risperidon [facility] 1 mg tablet 1 mg tablet e 1 mg Medical Take 1 Take 1 tablet tablet tablet Take 1 every day every day tablet by oral by oral every day route for route for by oral 30 days. 30 days. route for 30 days. sertraline sertraline No sertraline [facility] 100 mg 100 mg 100 mg Medical tablet Take tablet Take tablet 1 tablet 1 tablet Take 1 every day every day tablet by oral by oral every day route. route. by oral route. Spiriva Spiriva No Spiriva [facility] with with with Medical HandiHaler HandiHaler HandiHaler 18 mcg and 18 mcg and 18 mcg and inhalation inhalation inhalation capsules capsules capsules Inhale 1 Inhale 1 Inhale 1 capsule capsule capsule every day every day every day by by by inhalation inhalation inhalation route for route for route for 30 days. 30 days. 30 days. Tradjenta 5 Tradjenta 5 No Tradjenta [facility] mg tablet mg tablet 5 mg Medic al Take 1 Take 1 tablet tablet tablet Take 1 every day every day tablet by oral by oral every day route for route for by oral 30 days. 30 days. route for 30 days. tramadol 50 tramadol 50 No tramadol [facility] mg tablet mg tablet 50 mg [facility]i [facility] Take 2 Take 2 tablet tablets tablets Take 2 every 12 every 12 tablets hours by hours by every 12 oral route oral route hours by for 30 for 30 oral route days. days. for 30 days. Triumeq 600 Triumeq 600 No 1 Q1D Triumeq [facility] mg-50 mg-50 600 mg-50 Medical mg-300 mg mg-300 mg mg-300 mg tablet Take tablet Take tablet 1 tablet 1 tablet Take 1 every day every day tablet by oral by oral every day route. route. by oral route. Tylenol Tylenol No 1 BID Tylenol [facility] Extra Extra Extra Medical Strength Strength Strength 500 mg 500 mg 500 mg tablet Take tablet Take tablet 1 tablet 1 tablet Take 1 twice a day twice a day tablet by oral by oral twice a route. route. day by oral route. Vitamin D3 Vitamin D3 No 1capsul Q1D Vitamin D3 [facility] 50 mcg 50 mcg e(s) 50 mcg Medical (2,000 (2,000 (2,000 unit) unit) unit) capsule capsule capsule Take 1 Take 1 Take 1 capsule capsule capsule every day every day every day by oral by oral by oral route for route for route for 30 days. 30 days. 30 days. zinc zinc No 1capsul Q1D zinc [facility] sulfate 50 sulfate 50 e(s) sulfate 50 Medical mg zinc mg zinc mg zinc (220 mg) (220 mg) (220 mg) capsule capsule capsule Take 1 Take 1 Take 1 capsule capsule capsule every day every day every day by oral by oral by oral route. route. route. Advair Advair No Advair [facility] Diskus 500 Diskus 500 Diskus 500 Medical mcg-50 mcg-50 mcg-50 mcg/dose mcg/dose mcg/dose powder for powder for powder for inhalation inhalation inhalation Inhale 1 Inhale 1 Inhale 1 puff twice puff twice puff twice a day by a day by a day by inhalation inhalation inhalation route for route for route for 30 days. 30 days. 30 days. Artificial Artificial No 1applic Q1D Artificial [facility](s Eye Medical Lubricant Lubricant ) Lubricant 83 %-15 % 83 %-15 % 83 %-15 % ointment ointment ointment Apply 1 Apply 1 Apply 1 application application applicatio every day every day n every by by day by ophthalmic ophthalmic ophthalmic route. route. route. aspirin 81 aspirin 81 No 1 Q1D aspirin 81 [facility] mg mg mg Medical tablet,dago tablet,dago tablet,del yed release yed release ayed Take 1 Take 1 release tablet tablet Take 1 every day every day tablet by oral by oral every day route. route. by oral route. atorvastati atorvastati No atorvastat [facility] n 40 mg n 40 mg in 40 mg Medic al tablet Take tablet Take tablet 1 tablet 1 tablet Take 1 every day every day tablet by oral by oral every day route. route. by oral route. benztropine benztropine No benztropin [facility] 1 mg tablet 1 mg tablet e 1 mg Medical Take 1 Take 1 tablet tablet tablet Take 1 every day every day tablet by oral by oral every day route for route for by oral 30 days. 30 days. route for 30 days. Biofreeze Biofreeze No Biofreeze [facility] (menthol) 5 (menthol) 5 (menthol) Medical % topical % topical 5 % gel every 4 gel every 4 topical hours as hours as gel every needed needed 4 hours as needed buspirone 5 buspirone 5 No buspirone [facility] mg tablet mg tablet 5 mg Medic al Take 1 Take 1 tablet tablet 3 tablet 3 Take 1 times a day times a day tablet 3 by oral by oral times a route for route for day by 30 days. 30 days. oral route for 30 days. diclofenac diclofenac No diclofenac [facility] 1 % topical 1 % topical 1 % M edical gel gel topical gel divalproex divalproex No divalproex [facility] 125 mg 125 mg 125 mg Medical capsule,del capsule,del capsule,de ayed ayed layed release release release sprinkle sprinkle sprinkle Take 2 Take 2 Take 2 capsules 3 capsules 3 capsules 3 times a day times a day times a by oral by oral day by route for route for oral route 30 days. 30 days. for 30 days. fluticasone fluticasone No fluticason [facility] propionate propionate e Med ical 50 50 propionate mcg/actuati mcg/actuati 50 on nasal on nasal mcg/actuat spray,suspe spray,suspe ion nasal nsion nsion spray,susp ension gabapentin gabapentin No gabapentin [facility] 300 mg 300 mg 300 mg Medical capsule capsule capsule Take 1 Take 1 Take 1 capsule 3 capsule 3 capsule 3 times a day times a day times a by oral by oral day by route for route for oral route 30 days. 30 days. for 30 days. GlucaGen GlucaGen No GlucaGen [facility] via HypoKit 1 HypoKit 1 HypoKit 1 Medical mg mg mg Injection Injection Injection as needd as needd as needd PRN PRN PRN insulin insulin No insulin [facility] glargine glargine glargine Med ical (U-100) 100 (U-100) 100 (U-100) unit/mL (3 unit/mL (3 100 mL) mL) unit/mL (3 subcutaneou subcutaneou mL) s pen s pen subcutaneo Inject 24 Inject 24 us pen units every units every Inject 24 day by day by units sub-q route sub-q route every day at bedtime. at bedtime. by sub-q route at bedtime. ipratropium ipratropium No ipratropiu [facility] 0.5 0.5 m 0.5 Medical mg-albutero mg-albutero mg-albuter l 3 mg (2.5 l 3 mg (2.5 ol 3 mg mg base)/3 mg base)/3 (2.5 mg mL mL base)/3 mL nebulizatio nebulizatio nebulizati n soln n soln on soln Inhale 3 mL Inhale 3 mL Inhale 3 every 6 every 6 mL every 6 hours by hours by hours by inhalation inhalation inhalation route as route as route as needed for needed for needed for 7 days. 7 days. 7 days. magnesium magnesium No 1 Q1D magnesium [facility] oxide 400 oxide 400 oxide 400 Medical mg (241.3 mg (241.3 mg (241.3 mg mg mg magnesium) magnesium) magnesium) tablet Take tablet Take tablet 1 tablet 1 tablet Take 1 every day every day tablet by oral by oral every day route for route for by oral 30 days. 30 days. route for 30 days. melatonin 5 melatonin 5 No 1capsul Q1D melatonin [facility] mg capsule mg capsule e(s) 5 mg Med ical Take 1 Take 1 capsule capsule capsule Take 1 every day every day capsule by oral by oral every day route at route at by oral bedtime. bedtime. route at bedtime. midodrine midodrine No midodrine [facility] 10 mg 10 mg 10 mg Medical tablet Take tablet Take tablet 1 tablet 3 1 tablet 3 Take 1 times a day times a day tablet 3 by oral by oral times a route for route for day by 90 days. 90 days. oral route for 90 days. Miralax 17 Miralax 17 No 1packet Q1D Miralax 17 [facility] gram oral gram oral (s) gram oral Medical powder powder powder packet Take packet Take packet 1 packet 1 packet Take 1 every day every day packet by oral by oral every day route. route. by oral route. risperidone risperidone No risperidon [facility] 1 mg tablet 1 mg tablet e 1 mg Medical Take 1 Take 1 tablet tablet tablet Take 1 every day every day tablet by oral by oral every day route for route for by oral 30 days. 30 days. route for 30 days. sertraline sertraline No sertraline [facility] 100 mg 100 mg 100 mg Medical tablet Take tablet Take tablet 1 tablet 1 tablet Take 1 every day every day tablet by oral by oral every day route. route. by oral route. Spiriva Spiriva No Spiriva [facility] with with with Medical HandiHaler HandiHaler HandiHaler 18 mcg and 18 mcg and 18 mcg and inhalation inhalation inhalation capsules capsules capsules Inhale 1 Inhale 1 Inhale 1 capsule capsule capsule every day every day every day by by by inhalation inhalation inhalation route for route for route for 30 days. 30 days. 30 days. Tradjenta 5 Tradjenta 5 No Tradjenta [facility] mg tablet mg tablet 5 mg Medic al Take 1 Take 1 tablet tablet tablet Take 1 every day every day tablet by oral by oral every day route for route for by oral 30 days. 30 days. route for 30 days. tramadol 50 tramadol 50 No 2 Q12H tramadol [facility] mg tablet mg tablet 50 mg [facility] lawrence Take 2 Take 2 tablet tablets tablets Take 2 every 12 every 12 tablets hours by hours by every 12 oral route oral route hours by for 30 for 30 oral route days. days. for 30 days. Triumeq 600 Triumeq 600 No 1 Q1D Triumeq [facility] mg-50 mg-50 600 mg-50 Medical mg-300 mg mg-300 mg mg-300 mg tablet Take tablet Take tablet 1 tablet 1 tablet Take 1 every day every day tablet by oral by oral every day route. route. by oral route. Tylenol Tylenol No 1 BID Tylenol [facility] Extra Extra Extra Medical Strength Strength Strength 500 mg 500 mg 500 mg tablet Take tablet Take tablet 1 tablet 1 tablet Take 1 twice a day twice a day tablet by oral by oral twice a route. route. day by oral route. Vitamin D3 Vitamin D3 No 1capsul Q1D Vitamin D3 [facility] 50 mcg 50 mcg e(s) 50 mcg Medical (2,000 (2,000 (2,000 unit) unit) unit) capsule capsule capsule Take 1 Take 1 Take 1 capsule capsule capsule every day every day every day by oral by oral by oral route for route for route for 30 days. 30 days. 30 days. zinc zinc No 1capsul Q1D zinc [facility] sulfate 50 sulfate 50 e(s) sulfate 50 Medical mg zinc mg zinc mg zinc (220 mg) (220 mg) (220 mg) capsule capsule capsule Take 1 Take 1 Take 1 capsule capsule capsule every day every day every day by oral by oral by oral route. route. route. Advair Advair No Advair [facility] Diskus 500 Diskus 500 Diskus 500 Medical mcg-50 mcg-50 mcg-50 mcg/dose mcg/dose mcg/dose powder for powder for powder for inhalation inhalation inhalation Inhale 1 Inhale 1 Inhale 1 puff twice puff twice puff twice a day by a day by a day by inhalation inhalation inhalation route for route for route for 30 days. 30 days. 30 days. Artificial Artificial No 1applic Q1D Artificial [facility](s Eye Medical Lubricant Lubricant ) Lubricant 83 %-15 % 83 %-15 % 83 %-15 % ointment ointment ointment Apply 1 Apply 1 Apply 1 application application applicatio every day every day n every by by day by ophthalmic ophthalmic ophthalmic route. route. route. aspirin 81 aspirin 81 No 1 Q1D aspirin 81 [facility] mg mg mg Medical tablet,dago tablet,dago tablet,del yed release yed release ayed Take 1 Take 1 release tablet tablet Take 1 every day every day tablet by oral by oral every day route. route. by oral route. atorvastati atorvastati No atorvastat [facility] n 40 mg n 40 mg in 40 mg Medic al tablet Take tablet Take tablet 1 tablet 1 tablet Take 1 every day every day tablet by oral by oral every day route. route. by oral route. benztropine benztropine No benztropin [facility] 1 mg tablet 1 mg tablet e 1 mg Medical Take 1 Take 1 tablet tablet tablet Take 1 every day every day tablet by oral by oral every day route for route for by oral 30 days. 30 days. route for 30 days. Biofreeze Biofreeze No Biofreeze [facility] (menthol) 5 (menthol) 5 (menthol) Medical % topical % topical 5 % gel every 4 gel every 4 topical hours as hours as gel every needed needed 4 hours as needed buspirone 5 buspirone 5 No buspirone [facility] mg tablet mg tablet 5 mg Medic al Take 1 Take 1 tablet tablet 3 tablet 3 Take 1 times a day times a day tablet 3 by oral by oral times a route for route for day by 30 days. 30 days. oral route for 30 days. diclofenac diclofenac No diclofenac [facility] 1 % topical 1 % topical 1 % M edical gel gel topical gel divalproex divalproex No divalproex [facility] 125 mg 125 mg 125 mg Medical capsule,del capsule,del capsule,de ayed ayed layed release release release sprinkle sprinkle sprinkle Take 2 Take 2 Take 2 capsules 3 capsules 3 capsules 3 times a day times a day times a by oral by oral day by route for route for oral route 30 days. 30 days. for 30 days. fluticasone fluticasone No fluticason [facility] propionate propionate e Med ical 50 50 propionate mcg/actuati mcg/actuati 50 on nasal on nasal mcg/actuat spray,suspe spray,suspe ion nasal nsion nsion spray,susp ension gabapentin gabapentin No gabapentin [facility] 300 mg 300 mg 300 mg Medical capsule capsule capsule Take 1 Take 1 Take 1 capsule 3 capsule 3 capsule 3 times a day times a day times a by oral by oral day by route for route for oral route 30 days. 30 days. for 30 days. GlucaGen GlucaGen No GlucaGen [facility] via HypoKit 1 HypoKit 1 HypoKit 1 Medical mg mg mg Injection Injection Injection as needd as needd as needd PRN PRN PRN insulin insulin No insulin [facility] glargine glargine glargine Med ical (U-100) 100 (U-100) 100 (U-100) unit/mL (3 unit/mL (3 100 mL) mL) unit/mL (3 subcutaneou subcutaneou mL) s pen s pen subcutaneo Inject 24 Inject 24 us pen units every units every Inject 24 day by day by units sub-q route sub-q route every day at bedtime. at bedtime. by sub-q route at bedtime. insulin insulin No insulin [facility] glargine-yf glargine-yf glargine-y Medical gn (U-100) gn (U-100) fgn 100 unit/mL 100 unit/mL (U-100) (3 mL) (3 mL) 100 subcutaneou subcutaneou unit/mL (3 s pen s pen mL) subcutaneo us pen ipratropium ipratropium No ipratropiu [facility] 0.5 0.5 m 0.5 Medical mg-albutero mg-albutero mg-albuter l 3 mg (2.5 l 3 mg (2.5 ol 3 mg mg base)/3 mg base)/3 (2.5 mg mL mL base)/3 mL nebulizatio nebulizatio nebulizati n soln n soln on soln Inhale 3 mL Inhale 3 mL Inhale 3 every 6 every 6 mL every 6 hours by hours by hours by inhalation inhalation inhalation route as route as route as needed for needed for needed for 7 days. 7 days. 7 days. magnesium magnesium No 1 Q1D magnesium [facility] oxide 400 oxide 400 oxide 400 Medical mg (241.3 mg (241.3 mg (241.3 mg mg mg magnesium) magnesium) magnesium) tablet Take tablet Take tablet 1 tablet 1 tablet Take 1 every day every day tablet by oral by oral every day route for route for by oral 30 days. 30 days. route for 30 days. melatonin 5 melatonin 5 No 1capsul Q1D melatonin [facility] mg capsule mg capsule e(s) 5 mg Med ical Take 1 Take 1 capsule capsule capsule Take 1 every day every day capsule by oral by oral every day route at route at by oral bedtime. bedtime. route at bedtime. midodrine midodrine No midodrine [facility] 10 mg 10 mg 10 mg Medical tablet Take tablet Take tablet 1 tablet 3 1 tablet 3 Take 1 times a day times a day tablet 3 by oral by oral times a route for route for day by 90 days. 90 days. oral route for 90 days. Miralax 17 Miralax 17 No 1packet Q1D Miralax 17 [facility] gram oral gram oral (s) gram oral Medical powder powder powder packet Take packet Take packet 1 packet 1 packet Take 1 every day every day packet by oral by oral every day route. route. by oral route. risperidone risperidone No risperidon [facility] 1 mg tablet 1 mg tablet e 1 mg Medical Take 1 Take 1 tablet tablet tablet Take 1 every day every day tablet by oral by oral every day route for route for by oral 30 days. 30 days. route for 30 days. sertraline sertraline No sertraline [facility] 100 mg 100 mg 100 mg Medical tablet Take tablet Take tablet 1 tablet 1 tablet Take 1 every day every day tablet by oral by oral every day route. route. by oral route. Spiriva Spiriva No Spiriva [facility] with with with Medical HandiHaler HandiHaler HandiHaler 18 mcg and 18 mcg and 18 mcg and inhalation inhalation inhalation capsules capsules capsules Inhale 1 Inhale 1 Inhale 1 capsule capsule capsule every day every day every day by by by inhalation inhalation inhalation route for route for route for 30 days. 30 days. 30 days. Tradjenta 5 Tradjenta 5 No Tradjenta [facility] mg tablet mg tablet 5 mg Medic al Take 1 Take 1 tablet tablet tablet Take 1 every day every day tablet by oral by oral every day route for route for by oral 30 days. 30 days. route for 30 days. tramadol 50 tramadol 50 No 2 Q12H tramadol [facility] mg tablet mg tablet 50 mg Medi lawrence Take 2 Take 2 tablet tablets tablets Take 2 every 12 every 12 tablets hours by hours by every 12 oral route oral route hours by for 4 days. for 4 days. oral route for 4 days. Triumeq 600 Triumeq 600 No Triumeq [facility] mg-50 mg-50 600 mg-50 Medical mg-300 mg mg-300 mg mg-300 mg tablet Take tablet Take tablet 1 tablet 1 tablet Take 1 every day every day tablet by oral by oral every day route. route. by oral route. Tylenol Tylenol No 1 BID Tylenol [facility] Extra Extra Extra Medical Strength Strength Strength 500 mg 500 mg 500 mg tablet Take tablet Take tablet 1 tablet 1 tablet Take 1 twice a day twice a day tablet by oral by oral twice a route. route. day by oral route. Vitamin D3 Vitamin D3 No 1capsul Q1D Vitamin D3 [facility] 50 mcg 50 mcg e(s) 50 mcg Medical (2,000 (2,000 (2,000 unit) unit) unit) capsule capsule capsule Take 1 Take 1 Take 1 capsule capsule capsule every day every day every day by oral by oral by oral route for route for route for 30 days. 30 days. 30 days. zinc zinc No 1capsul Q1D zinc [facility] sulfate 50 sulfate 50 e(s) sulfate 50 Medical mg zinc mg zinc mg zinc (220 mg) (220 mg) (220 mg) capsule capsule capsule Take 1 Take 1 Take 1 capsule capsule capsule every day every day every day by oral by oral by oral route. route. route. Advair Advair No Advair [facility] Diskus 500 Diskus 500 Diskus 500 Medical mcg-50 mcg-50 mcg-50 mcg/dose mcg/dose mcg/dose powder for powder for powder for inhalation inhalation inhalation Inhale 1 Inhale 1 Inhale 1 puff twice puff twice puff twice a day by a day by a day by inhalation inhalation inhalation route for route for route for 30 days. 30 days. 30 days. Artificial Artificial No 1applic Q1D Artificial [facility](s Eye Medical Lubricant Lubricant ) Lubricant 83 %-15 % 83 %-15 % 83 %-15 % ointment ointment ointment Apply 1 Apply 1 Apply 1 application application applicatio every day every day n every by by day by ophthalmic ophthalmic ophthalmic route. route. route. aspirin 81 aspirin 81 No 1 Q1D aspirin 81 [facility] mg mg mg Medical tablet,dago tablet,dago tablet,del yed release yed release ayed Take 1 Take 1 release tablet tablet Take 1 every day every day tablet by oral by oral every day route. route. by oral route. atorvastati atorvastati No atorvastat [facility] n 40 mg n 40 mg in 40 mg Medic al tablet Take tablet Take tablet 1 tablet 1 tablet Take 1 every day every day tablet by oral by oral every day route. route. by oral route. benztropine benztropine No benztropin [facility] 1 mg tablet 1 mg tablet e 1 mg Medical Take 1 Take 1 tablet tablet tablet Take 1 every day every day tablet by oral by oral every day route for route for by oral 30 days. 30 days. route for 30 days. Biofreeze Biofreeze No Biofreeze [facility] (menthol) 5 (menthol) 5 (menthol) Medical % topical % topical 5 % gel every 4 gel every 4 topical hours as hours as gel every needed needed 4 hours as needed buspirone 5 buspirone 5 No buspirone [facility] mg tablet mg tablet 5 mg Medic al Take 1 Take 1 tablet tablet 3 tablet 3 Take 1 times a day times a day tablet 3 by oral by oral times a route for route for day by 30 days. 30 days. oral route for 30 days. diclofenac diclofenac No diclofenac [facility] 1 % topical 1 % topical 1 % M edical gel gel topical gel divalproex divalproex No divalproex [facility] 125 mg 125 mg 125 mg Medical capsule,del capsule,del capsule,de ayed ayed layed release release release sprinkle sprinkle sprinkle Take 2 Take 2 Take 2 capsules 3 capsules 3 capsules 3 times a day times a day times a by oral by oral day by route for route for oral route 30 days. 30 days. for 30 days. fluticasone fluticasone No fluticason [facility] propionate propionate e Med ical 50 50 propionate mcg/actuati mcg/actuati 50 on nasal on nasal mcg/actuat spray,suspe spray,suspe ion nasal nsion nsion spray,susp ension gabapentin gabapentin No gabapentin [facility] 300 mg 300 mg 300 mg Medical capsule capsule capsule Take 1 Take 1 Take 1 capsule 3 capsule 3 capsule 3 times a day times a day times a by oral by oral day by route for route for oral route 30 days. 30 days. for 30 days. GlucaGen GlucaGen No GlucaGen [facility] via HypoKit 1 HypoKit 1 HypoKit 1 Medical mg mg mg Injection Injection Injection as needd as needd as needd PRN PRN PRN insulin insulin No insulin [facility] glargine glargine glargine Med ical (U-100) 100 (U-100) 100 (U-100) unit/mL (3 unit/mL (3 100 mL) mL) unit/mL (3 subcutaneou subcutaneou mL) s pen s pen subcutaneo Inject 24 Inject 24 us pen units every units every Inject 24 day by day by units sub-q route sub-q route every day at bedtime. at bedtime. by sub-q route at bedtime. insulin insulin No insulin [facility] glargine-yf glargine-yf glargine-y Medical gn (U-100) gn (U-100) fgn 100 unit/mL 100 unit/mL (U-100) (3 mL) (3 mL) 100 subcutaneou subcutaneou unit/mL (3 s pen s pen mL) subcutaneo us pen ipratropium ipratropium No ipratropiu [facility] 0.5 0.5 m 0.5 Medical mg-albutero mg-albutero mg-albuter l 3 mg (2.5 l 3 mg (2.5 ol 3 mg mg base)/3 mg base)/3 (2.5 mg mL mL base)/3 mL nebulizatio nebulizatio nebulizati n soln n soln on soln Inhale 3 mL Inhale 3 mL Inhale 3 every 6 every 6 mL every 6 hours by hours by hours by inhalation inhalation inhalation route as route as route as needed for needed for needed for 7 days. 7 days. 7 days. magnesium magnesium No 1 Q1D magnesium [facility] oxide 400 oxide 400 oxide 400 Medical mg (241.3 mg (241.3 mg (241.3 mg mg mg magnesium) magnesium) magnesium) tablet Take tablet Take tablet 1 tablet 1 tablet Take 1 every day every day tablet by oral by oral every day route for route for by oral 30 days. 30 days. route for 30 days. Ultram Ultram Yes Terrence 1 tablet Commo n [place] as needed [facility] melatonin 5 melatonin 5 No 1capsul Q1D melatonin [facility] mg capsule mg capsule e(s) 5 mg Med ical Take 1 Take 1 capsule capsule capsule Take 1 every day every day capsule by oral by oral every day route at route at by oral bedtime. bedtime. route at bedtime. midodrine midodrine No midodrine [facility] 10 mg 10 mg 10 mg Medical tablet Take tablet Take tablet 1 tablet 3 1 tablet 3 Take 1 times a day times a day tablet 3 by oral by oral times a route for route for day by 90 days. 90 days. oral route for 90 days. Miralax 17 Miralax 17 No 1packet Q1D Miralax 17 [facility] gram oral gram oral (s) gram oral Medical powder powder powder packet Take packet Take packet 1 packet 1 packet Take 1 every day every day packet by oral by oral every day route. route. by oral route. risperidone risperidone No risperidon [facility] 1 mg tablet 1 mg tablet e 1 mg Medical Take 1 Take 1 tablet tablet tablet Take 1 every day every day tablet by oral by oral every day route for route for by oral 30 days. 30 days. route for 30 days. sertraline sertraline No sertraline [facility] 100 mg 100 mg 100 mg Medical tablet Take tablet Take tablet 1 tablet 1 tablet Take 1 every day every day tablet by oral by oral every day route. route. by oral route. Spiriva Spiriva No Spiriva [facility] with with with Medical HandiHaler HandiHaler HandiHaler 18 mcg and 18 mcg and 18 mcg and inhalation inhalation inhalation capsules capsules capsules Inhale 1 Inhale 1 Inhale 1 capsule capsule capsule every day every day every day by by by inhalation inhalation inhalation route for route for route for 30 days. 30 days. 30 days. Tradjenta 5 Tradjenta 5 No Tradjenta [facility] mg tablet mg tablet 5 mg Medic al Take 1 Take 1 tablet tablet tablet Take 1 every day every day tablet by oral by oral every day route for route for by oral 30 days. 30 days. route for 30 days. tramadol 50 tramadol 50 No 2 Q12H tramadol [facility] mg tablet mg tablet 50 mg Medi lawrence Take 2 Take 2 tablet tablets tablets Take 2 every 12 every 12 tablets hours by hours by every 12 oral route oral route hours by for 4 days. for 4 days. oral route for 4 days. Triumeq 600 Triumeq 600 No Triumeq [facility] mg-50 mg-50 600 mg-50 Medical mg-300 mg mg-300 mg mg-300 mg tablet Take tablet Take tablet 1 tablet 1 tablet Take 1 every day every day tablet by oral by oral every day route. route. by oral route. Tylenol Tylenol No 1 BID Tylenol [facility] Extra Extra Extra Medical Strength Strength Strength 500 mg 500 mg 500 mg tablet Take tablet Take tablet 1 tablet 1 tablet Take 1 twice a day twice a day tablet by oral by oral twice a route. route. day by oral route. Vitamin D3 Vitamin D3 No 1capsul Q1D Vitamin D3 [facility] 50 mcg 50 mcg e(s) 50 mcg Medical (2,000 (2,000 (2,000 unit) unit) unit) capsule capsule capsule Take 1 Take 1 Take 1 capsule capsule capsule every day every day every day by oral by oral by oral route for route for route for 30 days. 30 days. 30 days. zinc zinc No 1capsul Q1D zinc [facility] sulfate 50 sulfate 50 e(s) sulfate 50 Medical mg zinc mg zinc mg zinc (220 mg) (220 mg) (220 mg) capsule capsule capsule Take 1 Take 1 Take 1 capsule capsule capsule every day every day every day by oral by oral by oral route. route. route. Advair Advair No Advair [facility] Diskus 500 Diskus 500 Diskus 500 Medical mcg-50 mcg-50 mcg-50 mcg/dose mcg/dose mcg/dose powder for powder for powder for inhalation inhalation inhalation Inhale 1 Inhale 1 Inhale 1 puff twice puff twice puff twice a day by a day by a day by inhalation inhalation inhalation route for route for route for 30 days. 30 days. 30 days. Artificial Artificial No 1applic Q1D Artificial [facility](s Eye Medical Lubricant Lubricant ) Lubricant 83 %-15 % 83 %-15 % 83 %-15 % ointment ointment ointment Apply 1 Apply 1 Apply 1 application application applicatio every day every day n every by by day by ophthalmic ophthalmic ophthalmic route. route. route. aspirin 81 aspirin 81 No 1 Q1D aspirin 81 [facility] mg mg mg Medical tablet,dago tablet,dago tablet,del yed release yed release ayed Take 1 Take 1 release tablet tablet Take 1 every day every day tablet by oral by oral every day route. route. by oral route. atorvastati atorvastati No atorvastat [facility] n 40 mg n 40 mg in 40 mg Medic al tablet Take tablet Take tablet 1 tablet 1 tablet Take 1 every day every day tablet by oral by oral every day route. route. by oral route. benztropine benztropine No benztropin [facility] 1 mg tablet 1 mg tablet e 1 mg Medical Take 1 Take 1 tablet tablet tablet Take 1 every day every day tablet by oral by oral every day route for route for by oral 30 days. 30 days. route for 30 days. Biofreeze Biofreeze No Biofreeze [facility] (menthol) 5 (menthol) 5 (menthol) Medical % topical % topical 5 % gel every 4 gel every 4 topical hours as hours as gel every needed needed 4 hours as needed buspirone 5 buspirone 5 No buspirone [facility] mg tablet mg tablet 5 mg Medic al Take 1 Take 1 tablet tablet 3 tablet 3 Take 1 times a day times a day tablet 3 by oral by oral times a route for route for day by 30 days. 30 days. oral route for 30 days. diclofenac diclofenac No diclofenac [facility] 1 % topical 1 % topical 1 % M edical gel gel topical gel divalproex divalproex No divalproex [facility] 125 mg 125 mg 125 mg Medical capsule,del capsule,del capsule,de ayed ayed layed release release release sprinkle sprinkle sprinkle Take 2 Take 2 Take 2 capsules 3 capsules 3 capsules 3 times a day times a day times a by oral by oral day by route for route for oral route 30 days. 30 days. for 30 days. ergocalcife ergocalcife No ergocalcif [facility] rol rol black Medical (vitamin (vitamin (vitamin D2) 1,250 D2) 1,250 D2) 1,250 mcg (50,000 mcg (50,000 mcg unit) unit) (50,000 capsule capsule unit) capsule fluticasone fluticasone No fluticason [facility] propionate propionate e Med ical 50 50 propionate mcg/actuati mcg/actuati 50 on nasal on nasal mcg/actuat spray,suspe spray,suspe ion nasal nsion nsion spray,susp ension gabapentin gabapentin No gabapentin [facility] 300 mg 300 mg 300 mg Medical capsule capsule capsule Take 1 Take 1 Take 1 capsule 3 capsule 3 capsule 3 times a day times a day times a by oral by oral day by route for route for oral route 30 days. 30 days. for 30 days. GlucaGen GlucaGen No GlucaGen [facility] via HypoKit 1 HypoKit 1 HypoKit 1 Medical mg mg mg Injection Injection Injection as needd as needd as needd PRN PRN PRN ipratropium ipratropium No ipratropiu [facility] 0.5 0.5 m 0.5 Medical mg-albutero mg-albutero mg-albuter l 3 mg (2.5 l 3 mg (2.5 ol 3 mg mg base)/3 mg base)/3 (2.5 mg mL mL base)/3 mL nebulizatio nebulizatio nebulizati n soln n soln on soln Inhale 3 mL Inhale 3 mL Inhale 3 every 6 every 6 mL every 6 hours by hours by hours by inhalation inhalation inhalation route as route as route as needed for needed for needed for 7 days. 7 days. 7 days. lactulose lactulose No lactulose [facility] 10 gram/15 10 gram/15 10 gram/15 Medical mL oral mL oral mL oral solution solution solution Lantus Lantus No Lantus [facility] Solostar Solostar Solostar Med ical U-100 U-100 U-100 Insulin 100 Insulin 100 Insulin unit/mL (3 unit/mL (3 100 mL) mL) unit/mL (3 subcutaneou subcutaneou mL) s pen s pen subcutaneo Inject 24 Inject 24 us pen units every units every Inject 24 day by day by units sub-q route sub-q route every day at bedtime. at bedtime. by sub-q route at bedtime. melatonin 5 melatonin 5 No 1capsul Q1D melatonin [facility] mg capsule mg capsule e(s) 5 mg Med ical Take 1 Take 1 capsule capsule capsule Take 1 every day every day capsule by oral by oral every day route at route at by oral bedtime. bedtime. route at bedtime. Miralax 17 Miralax 17 No 1packet Q1D Miralax 17 [facility] gram oral gram oral (s) gram oral Medical powder powder powder packet Take packet Take packet 1 packet 1 packet Take 1 every day every day packet by oral by oral every day route. route. by oral route. nystatin nystatin No nystatin [facility] via 100,000 100,000 100,000 Medica l unit/gram unit/gram unit/gram topical topical topical ointment ointment ointment risperidone risperidone No risperidon [facility] 1 mg tablet 1 mg tablet e 1 mg Medical Take 1 Take 1 tablet tablet tablet Take 1 every day every day tablet by oral by oral every day route for route for by oral 30 days. 30 days. route for 30 days. sertraline sertraline No sertraline [facility] 100 mg 100 mg 100 mg Medical tablet Take tablet Take tablet 1 tablet 1 tablet Take 1 every day every day tablet by oral by oral every day route. route. by oral route. Spiriva Spiriva No Spiriva [facility] with with with Medical HandiHaler HandiHaler HandiHaler 18 mcg and 18 mcg and 18 mcg and inhalation inhalation inhalation capsules capsules capsules Inhale 1 Inhale 1 Inhale 1 capsule capsule capsule every day every day every day by by by inhalation inhalation inhalation route for route for route for 30 days. 30 days. 30 days. Tradjenta 5 Tradjenta 5 No Tradjenta [facility] mg tablet mg tablet 5 mg Medic al Take 1 Take 1 tablet tablet tablet Take 1 every day every day tablet by oral by oral every day route for route for by oral 30 days. 30 days. route for 30 days. tramadol 50 tramadol 50 No 2 Q12H tramadol [facility] mg tablet mg tablet 50 mg Medi lawrence Take 2 Take 2 tablet tablets tablets Take 2 every 12 every 12 tablets hours by hours by every 12 oral route oral route hours by for 30 for 30 oral route days. days. for 30 days. Triumeq 600 Triumeq 600 No 1 Q1D Triumeq [facility] mg-50 mg-50 600 mg-50 Medical mg-300 mg mg-300 mg mg-300 mg tablet Take tablet Take tablet 1 tablet 1 tablet Take 1 every day every day tablet by oral by oral every day route. route. by oral route. Tylenol Tylenol No 1 BID Tylenol [facility] Extra Extra Extra Medical Strength Strength Strength 500 mg 500 mg 500 mg tablet Take tablet Take tablet 1 tablet 1 tablet Take 1 twice a day twice a day tablet by oral by oral twice a route. route. day by oral route. zinc zinc No 1capsul Q1D zinc [facility] sulfate 50 sulfate 50 e(s) sulfate 50 Medical mg zinc mg zinc mg zinc (220 mg) (220 mg) (220 mg) capsule capsule capsule Take 1 Take 1 Take 1 capsule capsule capsule every day every day every day by oral by oral by oral route. route. route. Advair Advair No Advair [facility] Diskus 500 Diskus 500 Diskus 500 Medical mcg-50 mcg-50 mcg-50 mcg/dose mcg/dose mcg/dose powder for powder for powder for inhalation inhalation inhalation Inhale 1 Inhale 1 Inhale 1 puff twice puff twice puff twice a day by a day by a day by inhalation inhalation inhalation route for route for route for 30 days. 30 days. 30 days. Artificial Artificial No 1applic Q1D Artificial [facility](s Eye Medical Lubricant Lubricant ) Lubricant 83 %-15 % 83 %-15 % 83 %-15 % ointment ointment ointment Apply 1 Apply 1 Apply 1 application application applicatio every day every day n every by by day by ophthalmic ophthalmic ophthalmic route. route. route. aspirin 81 aspirin 81 No 1 Q1D aspirin 81 [facility] mg mg mg Medical tablet,dago tablet,dago tablet,del yed release yed release ayed Take 1 Take 1 release tablet tablet Take 1 every day every day tablet by oral by oral every day route. route. by oral route. atorvastati atorvastati No atorvastat [facility] n 40 mg n 40 mg in 40 mg Medic al tablet Take tablet Take tablet 1 tablet 1 tablet Take 1 every day every day tablet by oral by oral every day route. route. by oral route. benztropine benztropine No benztropin [facility] 1 mg tablet 1 mg tablet e 1 mg Medical Take 1 Take 1 tablet tablet tablet Take 1 every day every day tablet by oral by oral every day route for route for by oral 30 days. 30 days. route for 30 days. Biofreeze Biofreeze No Biofreeze [facility] (menthol) 5 (menthol) 5 (menthol) Medical % topical % topical 5 % gel every 4 gel every 4 topical hours as hours as gel every needed needed 4 hours as needed buspirone 5 buspirone 5 No buspirone [facility] mg tablet mg tablet 5 mg Medic al Take 1 Take 1 tablet tablet 3 tablet 3 Take 1 times a day times a day tablet 3 by oral by oral times a route for route for day by 30 days. 30 days. oral route for 30 days. diclofenac diclofenac No diclofenac [facility] 1 % topical 1 % topical 1 % M edical gel gel topical gel divalproex divalproex No divalproex [facility] 125 mg 125 mg 125 mg Medical capsule,del capsule,del capsule,de ayed ayed layed release release release sprinkle sprinkle sprinkle Take 2 Take 2 Take 2 capsules 3 capsules 3 capsules 3 times a day times a day times a by oral by oral day by route for route for oral route 30 days. 30 days. for 30 days. ergocalcife ergocalcife No ergocalcif [facility] rol rol black Medical (vitamin (vitamin (vitamin D2) 1,250 D2) 1,250 D2) 1,250 mcg (50,000 mcg (50,000 mcg unit) unit) (50,000 capsule capsule unit) capsule fluticasone fluticasone No fluticason [facility] propionate propionate e Med ical 50 50 propionate mcg/actuati mcg/actuati 50 on nasal on nasal mcg/actuat spray,suspe spray,suspe ion nasal nsion nsion spray,susp ension gabapentin gabapentin No gabapentin [facility] 300 mg 300 mg 300 mg Medical capsule capsule capsule Take 1 Take 1 Take 1 capsule 3 capsule 3 capsule 3 times a day times a day times a by oral by oral day by route for route for oral route 30 days. 30 days. for 30 days. GlucaGen GlucaGen No GlucaGen [facility] via HypoKit 1 HypoKit 1 HypoKit 1 Medical mg mg mg Injection Injection Injection as needd as needd as needd PRN PRN PRN ipratropium ipratropium No ipratropiu [facility] 0.5 0.5 m 0.5 Medical mg-albutero mg-albutero mg-albuter l 3 mg (2.5 l 3 mg (2.5 ol 3 mg mg base)/3 mg base)/3 (2.5 mg mL mL base)/3 mL nebulizatio nebulizatio nebulizati n soln n soln on soln Inhale 3 mL Inhale 3 mL Inhale 3 every 6 every 6 mL every 6 hours by hours by hours by inhalation inhalation inhalation route as route as route as needed for needed for needed for 7 days. 7 days. 7 days. lactulose lactulose No lactulose [facility] 10 gram/15 10 gram/15 10 gram/15 Medical mL oral mL oral mL oral solution solution solution Lantus Lantus No Lantus [facility] Solostar Solostar Solostar Med ical U-100 U-100 U-100 Insulin 100 Insulin 100 Insulin unit/mL (3 unit/mL (3 100 mL) mL) unit/mL (3 subcutaneou subcutaneou mL) s pen s pen subcutaneo Inject 24 Inject 24 us pen units every units every Inject 24 day by day by units sub-q route sub-q route every day at bedtime. at bedtime. by sub-q route at bedtime. melatonin 5 melatonin 5 No 1capsul Q1D melatonin [facility] mg capsule mg capsule e(s) 5 mg Med ical Take 1 Take 1 capsule capsule capsule Take 1 every day every day capsule by oral by oral every day route at route at by oral bedtime. bedtime. route at bedtime. Miralax 17 Miralax 17 No 1packet Q1D Miralax 17 [facility] gram oral gram oral (s) gram oral Medical powder powder powder packet Take packet Take packet 1 packet 1 packet Take 1 every day every day packet by oral by oral every day route. route. by oral route. nystatin nystatin No nystatin [facility] via 100,000 100,000 100,000 Medica l unit/gram unit/gram unit/gram topical topical topical cream cream cream nystatin nystatin No nystatin [facility] via 100,000 100,000 100,000 Medica l unit/gram unit/gram unit/gram topical topical topical ointment ointment ointment risperidone risperidone No risperidon [facility] 1 mg tablet 1 mg tablet e 1 mg Medical Take 1 Take 1 tablet tablet tablet Take 1 every day every day tablet by oral by oral every day route for route for by oral 30 days. 30 days. route for 30 days. sertraline sertraline No sertraline [facility] 100 mg 100 mg 100 mg Medical tablet Take tablet Take tablet 1 tablet 1 tablet Take 1 every day every day tablet by oral by oral every day route. route. by oral route. Spiriva Spiriva No Spiriva [facility] with with with Medical HandiHaler HandiHaler HandiHaler 18 mcg and 18 mcg and 18 mcg and inhalation inhalation inhalation capsules capsules capsules Inhale 1 Inhale 1 Inhale 1 capsule capsule capsule every day every day every day by by by inhalation inhalation inhalation route for route for route for 30 days. 30 days. 30 days. ProAir HFA ProAir HFA Yes Terrence 2 puffs as Common [place] needed [facility] Tradjenta 5 Tradjenta 5 No Tradjenta [facility] mg tablet mg tablet 5 mg Medic al Take 1 Take 1 tablet tablet tablet Take 1 every day every day tablet by oral by oral every day route for route for by oral 30 days. 30 days. route for 30 days. tramadol 50 tramadol 50 No tramadol [facility] mg tablet mg tablet 50 mg Medi lawernce Take 2 Take 2 tablet tablets tablets Take 2 every 12 every 12 tablets hours by hours by every 12 oral route oral route hours by for 30 for 30 oral route days. days. for 30 days. Triumeq 600 Triumeq 600 No 1 Q1D Triumeq [facility] mg-50 mg-50 600 mg-50 Medical mg-300 mg mg-300 mg mg-300 mg tablet Take tablet Take tablet 1 tablet 1 tablet Take 1 every day every day tablet by oral by oral every day route. route. by oral route. Tylenol Tylenol No 1 BID Tylenol [facility] Extra Extra Extra Medical Strength Strength Strength 500 mg 500 mg 500 mg tablet Take tablet Take tablet 1 tablet 1 tablet Take 1 twice a day twice a day tablet by oral by oral twice a route. route. day by oral route. zinc zinc No 1capsul Q1D zinc [facility] sulfate 50 sulfate 50 e(s) sulfate 50 Medical mg zinc mg zinc mg zinc (220 mg) (220 mg) (220 mg) capsule capsule capsule Take 1 Take 1 Take 1 capsule capsule capsule every day every day every day by oral by oral by oral route. route. route. Advair Advair No Advair [facility] Diskus 500 Diskus 500 Diskus 500 Medical mcg-50 mcg-50 mcg-50 mcg/dose mcg/dose mcg/dose powder for powder for powder for inhalation inhalation inhalation Inhale 1 Inhale 1 Inhale 1 puff twice puff twice puff twice a day by a day by a day by inhalation inhalation inhalation route for route for route for 30 days. 30 days. 30 days. Artificial Artificial No 1applic Q1D Artificial [facility] [facility] Lubricant Lubricant ) Lubricant 83 %-15 % 83 %-15 % 83 %-15 % ointment ointment ointment Apply 1 Apply 1 Apply 1 application application applicatio every day every day n every by by day by ophthalmic ophthalmic ophthalmic route. route. route. aspirin 81 aspirin 81 No 1 Q1D aspirin 81 [facility] mg mg mg Medical tablet,dago tablet,dago tablet,del yed release yed release ayed Take 1 Take 1 release tablet tablet Take 1 every day every day tablet by oral by oral every day route. route. by oral route. atorvastati atorvastati No atorvastat [facility] n 40 mg n 40 mg in 40 mg Medic al tablet Take tablet Take tablet 1 tablet 1 tablet Take 1 every day every day tablet by oral by oral every day route. route. by oral route. benztropine benztropine No benztropin [facility] 1 mg tablet 1 mg tablet e 1 mg Medical Take 1 Take 1 tablet tablet tablet Take 1 every day every day tablet by oral by oral every day route for route for by oral 30 days. 30 days. route for 30 days. Biofreeze Biofreeze No Biofreeze [facility] (menthol) 5 (menthol) 5 (menthol) Medical % topical % topical 5 % gel every 4 gel every 4 topical hours as hours as gel every needed needed 4 hours as needed buspirone 5 buspirone 5 No buspirone [facility] mg tablet mg tablet 5 mg Medic al Take 1 Take 1 tablet tablet 3 tablet 3 Take 1 times a day times a day tablet 3 by oral by oral times a route for route for day by 30 days. 30 days. oral route for 30 days. diclofenac diclofenac No diclofenac [facility] 1 % topical 1 % topical 1 % M edical gel gel topical gel divalproex divalproex No divalproex [facility] 125 mg 125 mg 125 mg Medical capsule,del capsule,del capsule,de ayed ayed layed release release release sprinkle sprinkle sprinkle Take 2 Take 2 Take 2 capsules 3 capsules 3 capsules 3 times a day times a day times a by oral by oral day by route for route for oral route 30 days. 30 days. for 30 days. ergocalcife ergocalcife No ergocalcif [facility] rol rol black Medical (vitamin (vitamin (vitamin D2) 1,250 D2) 1,250 D2) 1,250 mcg (50,000 mcg (50,000 mcg unit) unit) (50,000 capsule capsule unit) capsule fluticasone fluticasone No fluticason [facility] propionate propionate e Med ical 50 50 propionate mcg/actuati mcg/actuati 50 on nasal on nasal mcg/actuat spray,suspe spray,suspe ion nasal nsion nsion spray,susp ension gabapentin gabapentin No gabapentin [facility] 300 mg 300 mg 300 mg Medical capsule capsule capsule Take 1 Take 1 Take 1 capsule 3 capsule 3 capsule 3 times a day times a day times a by oral by oral day by route for route for oral route 30 days. 30 days. for 30 days. GlucaGen GlucaGen No GlucaGen [facility] via HypoKit 1 HypoKit 1 HypoKit 1 Medical mg mg mg Injection Injection Injection as needd as needd as needd PRN PRN PRN ipratropium ipratropium No ipratropiu [facility] 0.5 0.5 m 0.5 Medical mg-albutero mg-albutero mg-albuter l 3 mg (2.5 l 3 mg (2.5 ol 3 mg mg base)/3 mg base)/3 (2.5 mg mL mL base)/3 mL nebulizatio nebulizatio nebulizati n soln n soln on soln Inhale 3 mL Inhale 3 mL Inhale 3 every 6 every 6 mL every 6 hours by hours by hours by inhalation inhalation inhalation route as route as route as needed for needed for needed for 7 days. 7 days. 7 days. lactulose lactulose No lactulose [facility] 10 gram/15 10 gram/15 10 gram/15 Medical mL oral mL oral mL oral solution solution solution Lantus Lantus No Lantus [facility] Solostar Solostar Solostar Med ical U-100 U-100 U-100 Insulin 100 Insulin 100 Insulin unit/mL (3 unit/mL (3 100 mL) mL) unit/mL (3 subcutaneou subcutaneou mL) s pen s pen subcutaneo Inject 24 Inject 24 us pen units every units every Inject 24 day by day by units sub-q route sub-q route every day at bedtime. at bedtime. by sub-q route at bedtime. melatonin 5 melatonin 5 No 1capsul Q1D melatonin [facility] mg capsule mg capsule e(s) 5 mg Med ical Take 1 Take 1 capsule capsule capsule Take 1 every day every day capsule by oral by oral every day route at route at by oral bedtime. bedtime. route at bedtime. Miralax 17 Miralax 17 No 1packet Q1D Miralax 17 [facility] gram oral gram oral (s) gram oral Medical powder powder powder packet Take packet Take packet 1 packet 1 packet Take 1 every day every day packet by oral by oral every day route. route. by oral route. nystatin nystatin No nystatin [facility] via 100,000 100,000 100,000 Medica l unit/gram unit/gram unit/gram topical topical topical cream cream cream nystatin nystatin No nystatin [facility] via 100,000 100,000 100,000 Medica l unit/gram unit/gram unit/gram topical topical topical ointment ointment ointment risperidone risperidone No risperidon [facility] 1 mg tablet 1 mg tablet e 1 mg Medical Take 1 Take 1 tablet tablet tablet Take 1 every day every day tablet by oral by oral every day route for route for by oral 30 days. 30 days. route for 30 days. sertraline sertraline No sertraline [facility] 100 mg 100 mg 100 mg Medical tablet Take tablet Take tablet 1 tablet 1 tablet Take 1 every day every day tablet by oral by oral every day route. route. by oral route. Spiriva Spiriva No Spiriva [facility] with with with Medical HandiHaler HandiHaler HandiHaler 18 mcg and 18 mcg and 18 mcg and inhalation inhalation inhalation capsules capsules capsules Inhale 1 Inhale 1 Inhale 1 capsule capsule capsule every day every day every day by by by inhalation inhalation inhalation route for route for route for 30 days. 30 days. 30 days. Tradjenta 5 Tradjenta 5 No Tradjenta [facility] mg tablet mg tablet 5 mg Medic al Take 1 Take 1 tablet tablet tablet Take 1 every day every day tablet by oral by oral every day route for route for by oral 30 days. 30 days. route for 30 days. tramadol 50 tramadol 50 No tramadol [facility] mg tablet mg tablet 50 mg Medi lawrence Take 2 Take 2 tablet tablets tablets Take 2 every 12 every 12 tablets hours by hours by every 12 oral route oral route hours by for 30 for 30 oral route days. days. for 30 days. Triumeq 600 Triumeq 600 No 1 Q1D Triumeq [facility] mg-50 mg-50 600 mg-50 Medical mg-300 mg mg-300 mg mg-300 mg tablet Take tablet Take tablet 1 tablet 1 tablet Take 1 every day every day tablet by oral by oral every day route. route. by oral route. Tylenol Tylenol No 1 BID Tylenol [facility] Extra Extra Extra Medical Strength Strength Strength 500 mg 500 mg 500 mg tablet Take tablet Take tablet 1 tablet 1 tablet Take 1 twice a day twice a day tablet by oral by oral twice a route. route. day by oral route. zinc zinc No 1capsul Q1D zinc [facility] sulfate 50 sulfate 50 e(s) sulfate 50 Medical mg zinc mg zinc mg zinc (220 mg) (220 mg) (220 mg) capsule capsule capsule Take 1 Take 1 Take 1 capsule capsule capsule every day every day every day by oral by oral by oral route. route. route. Advair Advair No 1puff(s BID Advair [facility] Diskus 500 Diskus 500 ) Diskus 500 Medical mcg-50 mcg-50 mcg-50 mcg/dose mcg/dose mcg/dose powder for powder for powder for inhalation inhalation inhalation Inhale 1 Inhale 1 Inhale 1 puff twice puff twice puff twice a day by a day by a day by inhalation inhalation inhalation route for route for route for 30 days. 30 days. 30 days. Artificial Artificial No 1applic Q1D Artificial [facility] Lubricant Lubricant ) Lubricant 83 %-15 % 83 %-15 % 83 %-15 % ointment ointment ointment Apply 1 Apply 1 Apply 1 application application applicatio every day every day n every by by day by ophthalmic ophthalmic ophthalmic route. route. route. aspirin 81 aspirin 81 No 1 Q1D aspirin 81 [facility] mg mg mg Medical tablet,dago tablet,dago tablet,del yed release yed release ayed Take 1 Take 1 release tablet tablet Take 1 every day every day tablet by oral by oral every day route. route. by oral route. benztropine benztropine No 1 Q1D benztropin [facility] 1 mg tablet 1 mg tablet e 1 mg Medical Take 1 Take 1 tablet tablet tablet Take 1 every day every day tablet by oral by oral every day route for route for by oral 30 days. 30 days. route for 30 days. Biofreeze Biofreeze No Biofreeze [facility] (menthol) 5 (menthol) 5 (menthol) Medical % topical % topical 5 % gel every 4 gel every 4 topical hours as hours as gel every needed needed 4 hours as needed buspirone 5 buspirone 5 No 1 TID buspirone [facility] mg tablet mg tablet 5 mg Medic al Take 1 Take 1 tablet tablet 3 tablet 3 Take 1 times a day times a day tablet 3 by oral by oral times a route for route for day by 30 days. 30 days. oral route for 30 days. divalproex divalproex No 2capsul TID divalproex [facility] 125 mg 125 mg e(s) 125 mg Medical capsule,del capsule,del capsule,de ayed ayed layed release release release sprinkle sprinkle sprinkle Take 2 Take 2 Take 2 capsules 3 capsules 3 capsules 3 times a day times a day times a by oral by oral day by route for route for oral route 30 days. 30 days. for 30 days. gabapentin gabapentin No 1capsul TID gabapentin [facility] 300 mg 300 mg e(s) 300 mg Medical capsule capsule capsule Take 1 Take 1 Take 1 capsule 3 capsule 3 capsule 3 times a day times a day times a by oral by oral day by route for route for oral route 30 days. 30 days. for 30 days. GlucaGen GlucaGen No GlucaGen [facility] via HypoKit 1 HypoKit 1 HypoKit 1 Medical mg mg mg Injection Injection Injection as needd as needd as needd PRN PRN PRN Humalog Humalog No Humalog [facility] KwikPen KwikPen KwikPen Medica l (U-100) (U-100) (U-100) Insulin 100 Insulin 100 Insulin unit/mL unit/mL 100 subcutaneou subcutaneou unit/mL s s subcutaneo us ipratropium ipratropium No 3mL Q6H ipratropiu [facility] 0.5 0.5 m 0.5 Medical mg-albutero mg-albutero mg-albuter l 3 mg (2.5 l 3 mg (2.5 ol 3 mg mg base)/3 mg base)/3 (2.5 mg mL mL base)/3 mL nebulizatio nebulizatio nebulizati n soln n soln on soln Inhale 3 mL Inhale 3 mL Inhale 3 every 6 every 6 mL every 6 hours by hours by hours by inhalation inhalation inhalation route as route as route as needed for needed for needed for 7 days. 7 days. 7 days. Lantus Lantus No 24unit( Q1D Lantus [facility] U-100 U-100 s) U-100 Medical Insulin 100 Insulin 100 Insulin unit/mL unit/mL 100 subcutaneou subcutaneou unit/mL s solution s solution subcutaneo Inject 24 Inject 24 us units every units every solution day by day by Inject 24 sub-q route sub-q route units at bedtime at bedtime every day for 28 for 28 by sub-q days. days. route at bedtime for 28 days. melatonin 5 melatonin 5 No 1capsul Q1D melatonin [facility] mg capsule mg capsule e(s) 5 mg Med ical Take 1 Take 1 capsule capsule capsule Take 1 every day every day capsule by oral by oral every day route at route at by oral bedtime. bedtime. route at bedtime. Miralax 17 Miralax 17 No 1packet Q1D Miralax 17 [facility] gram oral gram oral (s) gram oral Medical powder powder powder packet Take packet Take packet 1 packet 1 packet Take 1 every day every day packet by oral by oral every day route. route. by oral route. omeprazole omeprazole No omeprazole [facility] 20 mg 20 mg 20 mg Medical capsule,del capsule,del capsule,de ayed ayed layed release release release risperidone risperidone No 1 Q1D risperidon [facility] 1 mg tablet 1 mg tablet e 1 mg Medical Take 1 Take 1 tablet tablet tablet Take 1 every day every day tablet by oral by oral every day route for route for by oral 30 days. 30 days. route for 30 days. Spiriva Spiriva No 1capsul Q1D Spiriva [facility] via with with e(s) with Medical HandiHaler HandiHaler HandiHaler 18 mcg and 18 mcg and 18 mcg and inhalation inhalation inhalation capsules capsules capsules Inhale 1 Inhale 1 Inhale 1 capsule capsule capsule every day every day every day by by by inhalation inhalation inhalation route for route for route for 30 days. 30 days. 30 days. Tradjenta 5 Tradjenta 5 No 1 Q1D Tradjenta [facility] mg tablet mg tablet 5 mg Medic al Take 1 Take 1 tablet tablet tablet Take 1 every day every day tablet by oral by oral every day route for route for by oral 30 days. 30 days. route for 30 days. tramadol 50 tramadol 50 No tramadol [facility] mg tablet mg tablet 50 mg Medi lawrence TAKE 1 TAKE 1 tablet TABLET BY TABLET BY TAKE 1 MOUTH THREE MOUTH THREE TABLET BY TIMES DAILY TIMES DAILY MOUTH THREE TIMES DAILY Triumeq 600 Triumeq 600 No 1 Q1D Triumeq [facility] mg-50 mg-50 600 mg-50 Medical mg-300 mg mg-300 mg mg-300 mg tablet Take tablet Take tablet 1 tablet 1 tablet Take 1 every day every day tablet by oral by oral every day route. route. by oral route. Tylenol Tylenol No 1 BID Tylenol [facility] Extra Extra Extra Medical Strength Strength Strength 500 mg 500 mg 500 mg tablet Take tablet Take tablet 1 tablet 1 tablet Take 1 twice a day twice a day tablet by oral by oral twice a route. route. day by oral route. zinc zinc No 1capsul Q1D zinc [facility] sulfate 50 sulfate 50 e(s) sulfate 50 Medical mg zinc mg zinc mg zinc (220 mg) (220 mg) (220 mg) capsule capsule capsule Take 1 Take 1 Take 1 capsule capsule capsule every day every day every day by oral by oral by oral route. route. route. Advair Advair No 1puff(s BID Advair [facility] Diskus 500 Diskus 500 ) Diskus 500 Medical mcg-50 mcg-50 mcg-50 mcg/dose mcg/dose mcg/dose powder for powder for powder for inhalation inhalation inhalation Inhale 1 Inhale 1 Inhale 1 puff twice puff twice puff twice a day by a day by a day by inhalation inhalation inhalation route for route for route for 30 days. 30 days. 30 days. Artificial Artificial No 1applic Q1D Artificial [facility] Lubricant Lubricant ) Lubricant 83 %-15 % 83 %-15 % 83 %-15 % ointment ointment ointment Apply 1 Apply 1 Apply 1 application application applicatio every day every day n every by by day by ophthalmic ophthalmic ophthalmic route. route. route. aspirin 81 aspirin 81 No 1 Q1D aspirin 81 [facility] mg mg mg Medical tablet,dago tablet,dago tablet,del yed release yed release ayed Take 1 Take 1 release tablet tablet Take 1 every day every day tablet by oral by oral every day route. route. by oral route. benztropine benztropine No benztropin [facility] 1 mg tablet 1 mg tablet e 1 mg Medical Take 1 Take 1 tablet tablet tablet Take 1 every day every day tablet by oral by oral every day route for route for by oral 30 days. 30 days. route for 30 days. Biofreeze Biofreeze No Biofreeze [facility] (menthol) 5 (menthol) 5 (menthol) Medical % topical % topical 5 % gel every 4 gel every 4 topical hours as hours as gel every needed needed 4 hours as needed buspirone 5 buspirone 5 No buspirone [facility] mg tablet mg tablet 5 mg Medic al Take 1 Take 1 tablet tablet 3 tablet 3 Take 1 times a day times a day tablet 3 by oral by oral times a route for route for day by 30 days. 30 days. oral route for 30 days. divalproex divalproex No 2capsul TID divalproex [facility] 125 mg 125 mg e(s) 125 mg Medical capsule,del capsule,del capsule,de ayed ayed layed release release release sprinkle sprinkle sprinkle Take 2 Take 2 Take 2 capsules 3 capsules 3 capsules 3 times a day times a day times a by oral by oral day by route for route for oral route 30 days. 30 days. for 30 days. ergocalcife ergocalcife No ergocalcif [facility] rol rol black Medical (vitamin (vitamin (vitamin D2) 1,250 D2) 1,250 D2) 1,250 mcg (50,000 mcg (50,000 mcg unit) unit) (50,000 capsule capsule unit) capsule gabapentin gabapentin No gabapentin [facility] 300 mg 300 mg 300 mg Medical capsule capsule capsule Take 1 Take 1 Take 1 capsule 3 capsule 3 capsule 3 times a day times a day times a by oral by oral day by route for route for oral route 30 days. 30 days. for 30 days. GlucaGen GlucaGen No GlucaGen [facility] via HypoKit 1 HypoKit 1 HypoKit 1 Medical mg mg mg Injection Injection Injection as needd as needd as needd PRN PRN PRN Humalog Humalog No Humalog [facility] KwikPen KwikPen KwikPen Medica l (U-100) (U-100) (U-100) Insulin 100 Insulin 100 Insulin unit/mL unit/mL 100 subcutaneou subcutaneou unit/mL s s subcutaneo us ipratropium ipratropium No 3mL Q6H ipratropiu [facility] 0.5 0.5 m 0.5 Medical mg-albutero mg-albutero mg-albuter l 3 mg (2.5 l 3 mg (2.5 ol 3 mg mg base)/3 mg base)/3 (2.5 mg mL mL base)/3 mL nebulizatio nebulizatio nebulizati n soln n soln on soln Inhale 3 mL Inhale 3 mL Inhale 3 every 6 every 6 mL every 6 hours by hours by hours by inhalation inhalation inhalation route as route as route as needed for needed for needed for 7 days. 7 days. 7 days. Lantus Lantus No 24unit( Q1D Lantus [facility] U-100 U-100 s) U-100 Medical Insulin 100 Insulin 100 Insulin unit/mL unit/mL 100 subcutaneou subcutaneou unit/mL s solution s solution subcutaneo Inject 24 Inject 24 us units every units every solution day by day by Inject 24 sub-q route sub-q route units at bedtime at bedtime every day for 28 for 28 by sub-q days. days. route at bedtime for 28 days. melatonin 5 melatonin 5 No 1capsul Q1D melatonin [facility] mg capsule mg capsule e(s) 5 mg Med ical Take 1 Take 1 capsule capsule capsule Take 1 every day every day capsule by oral by oral every day route at route at by oral bedtime. bedtime. route at bedtime. Miralax 17 Miralax 17 No 1packet Q1D Miralax 17 [facility] gram oral gram oral (s) gram oral Medical powder powder powder packet Take packet Take packet 1 packet 1 packet Take 1 every day every day packet by oral by oral every day route. route. by oral route. omeprazole omeprazole No omeprazole [facility] 20 mg 20 mg 20 mg Medical capsule,del capsule,del capsule,de ayed ayed layed release release release risperidone risperidone No 1 Q1D risperidon [facility] 1 mg tablet 1 mg tablet e 1 mg Medical Take 1 Take 1 tablet tablet tablet Take 1 every day every day tablet by oral by oral every day route for route for by oral 30 days. 30 days. route for 30 days. Spiriva Spiriva No 1capsul Q1D Sp[facility]iva [facility] via with with e(s) with Medical HandiHaler HandiHaler HandiHaler 18 mcg and 18 mcg and 18 mcg and inhalation inhalation inhalation capsules capsules capsules Inhale 1 Inhale 1 Inhale 1 capsule capsule capsule every day every day every day by by by inhalation inhalation inhalation route for route for route for 30 days. 30 days. 30 days. Tradjenta 5 Tradjenta 5 No Tradjenta [facility] mg tablet mg tablet 5 mg Medic al Take 1 Take 1 tablet tablet tablet Take 1 every day every day tablet by oral by oral every day route for route for by oral 30 days. 30 days. route for 30 days. tramadol 50 tramadol 50 No tramadol [facility] mg tablet mg tablet 50 mg Medi lawrence Take 1 Take 1 tablet tablet tablet Take 1 every 8 every 8 tablet hours by hours by every 8 oral route oral route hours by as needed as needed oral route for 30 for 30 as needed days. days. for 30 days. Triumeq 600 Triumeq 600 No 1 Q1D Triumeq [facility] mg-50 mg-50 600 mg-50 Medical mg-300 mg mg-300 mg mg-300 mg tablet Take tablet Take tablet 1 tablet 1 tablet Take 1 every day every day tablet by oral by oral every day route. route. by oral route. Tylenol Tylenol No 1 BID Tylenol [facility] Extra Extra Extra Medical Strength Strength Strength 500 mg 500 mg 500 mg tablet Take tablet Take tablet 1 tablet 1 tablet Take 1 twice a day twice a day tablet by oral by oral twice a route. route. day by oral route. zinc zinc No 1capsul Q1D zinc [facility] sulfate 50 sulfate 50 e(s) sulfate 50 Medical mg zinc mg zinc mg zinc (220 mg) (220 mg) (220 mg) capsule capsule capsule Take 1 Take 1 Take 1 capsule capsule capsule every day every day every day by oral by oral by oral route. route. route. Advair Advair No 1puff(s BID Advair [facility] Diskus 500 Diskus 500 ) Diskus 500 Medical mcg-50 mcg-50 mcg-50 mcg/dose mcg/dose mcg/dose powder for powder for powder for inhalation inhalation inhalation Inhale 1 Inhale 1 Inhale 1 puff twice puff twice puff twice a day by a day by a day by inhalation inhalation inhalation route for route for route for 30 days. 30 days. 30 days. Artificial Artificial No 1applic Q1D Artificial [facility] Lubricant Lubricant ) Lubricant 83 %-15 % 83 %-15 % 83 %-15 % ointment ointment ointment Apply 1 Apply 1 Apply 1 application application applicatio every day every day n every by by day by ophthalmic ophthalmic ophthalmic route. route. route. aspirin 81 aspirin 81 No 1 Q1D aspirin 81 [facility] mg mg mg Medical tablet,dago tablet,dago tablet,del yed release yed release ayed Take 1 Take 1 release tablet tablet Take 1 every day every day tablet by oral by oral every day route. route. by oral route. benztropine benztropine No benztropin [facility] 1 mg tablet 1 mg tablet e 1 mg Medical Take 1 Take 1 tablet tablet tablet Take 1 every day every day tablet by oral by oral every day route for route for by oral 30 days. 30 days. route for 30 days. Biofreeze Biofreeze No Biofreeze [facility] (menthol) 5 (menthol) 5 (menthol) Medical % topical % topical 5 % gel every 4 gel every 4 topical hours as hours as gel every needed needed 4 hours as needed buspirone 5 buspirone 5 No buspirone [facility] mg tablet mg tablet 5 mg Medic al Take 1 Take 1 tablet tablet 3 tablet 3 Take 1 times a day times a day tablet 3 by oral by oral times a route for route for day by 30 days. 30 days. oral route for 30 days. divalproex divalproex No 2capsul TID divalproex [facility] 125 mg 125 mg e(s) 125 mg Medical capsule,del capsule,del capsule,de ayed ayed layed release release release sprinkle sprinkle sprinkle Take 2 Take 2 Take 2 capsules 3 capsules 3 capsules 3 times a day times a day times a by oral by oral day by route for route for oral route 30 days. 30 days. for 30 days. ergocalcife ergocalcife No ergocalcif [facility] rol rol black Medical (vitamin (vitamin (vitamin D2) 1,250 D2) 1,250 D2) 1,250 mcg (50,000 mcg (50,000 mcg unit) unit) (50,000 capsule capsule unit) capsule gabapentin gabapentin No gabapentin [facility] 300 mg 300 mg 300 mg Medical capsule capsule capsule Take 1 Take 1 Take 1 capsule 3 capsule 3 capsule 3 times a day times a day times a by oral by oral day by route for route for oral route 30 days. 30 days. for 30 days. GlucaGen GlucaGen No GlucaGen [facility] via HypoKit 1 HypoKit 1 HypoKit 1 Medical mg mg mg Injection Injection Injection as needd as needd as needd PRN PRN PRN ipratropium ipratropium No 3mL Q6H ipratropiu [facility] 0.5 0.5 m 0.5 Medical mg-albutero mg-albutero mg-albuter l 3 mg (2.5 l 3 mg (2.5 ol 3 mg mg base)/3 mg base)/3 (2.5 mg mL mL base)/3 mL nebulizatio nebulizatio nebulizati n soln n soln on soln Inhale 3 mL Inhale 3 mL Inhale 3 every 6 every 6 mL every 6 hours by hours by hours by inhalation inhalation inhalation route as route as route as needed for needed for needed for 7 days. 7 days. 7 days. Lantus Lantus No 24unit( Q1D Lantus [facility] U-100 U-100 s) U-100 Medical Insulin 100 Insulin 100 Insulin unit/mL unit/mL 100 subcutaneou subcutaneou unit/mL s solution s solution subcutaneo Inject 24 Inject 24 us units every units every solution day by day by Inject 24 sub-q route sub-q route units at bedtime at bedtime every day for 28 for 28 by sub-q days. days. route at bedtime for 28 days. melatonin 5 melatonin 5 No 1capsul Q1D melatonin [facility] mg capsule mg capsule e(s) 5 mg Med ical Take 1 Take 1 capsule capsule capsule Take 1 every day every day capsule by oral by oral every day route at route at by oral bedtime. bedtime. route at bedtime. Miralax 17 Miralax 17 No 1packet Q1D Miralax 17 [facility] gram oral gram oral (s) gram oral Medical powder powder powder packet Take packet Take packet 1 packet 1 packet Take 1 every day every day packet by oral by oral every day route. route. by oral route. omeprazole omeprazole No omeprazole [facility] 20 mg 20 mg 20 mg Medical capsule,del capsule,del capsule,de ayed ayed layed release release release risperidone risperidone No 1 Q1D risperidon [facility] 1 mg tablet 1 mg tablet e 1 mg Medical Take 1 Take 1 tablet tablet tablet Take 1 every day every day tablet by oral by oral every day route for route for by oral 30 days. 30 days. route for 30 days. sertraline sertraline No 1 Q1D sertraline [facility] 100 mg 100 mg 100 mg Medical tablet Take tablet Take tablet 1 tablet 1 tablet Take 1 every day every day tablet by oral by oral every day route. route. by oral route. Spiriva Spiriva No 1capsul Q1D Spiriva [facility] via with with e(s) with Medical HandiHaler HandiHaler HandiHaler 18 mcg and 18 mcg and 18 mcg and inhalation inhalation inhalation capsules capsules capsules Inhale 1 Inhale 1 Inhale 1 capsule capsule capsule every day every day every day by by by inhalation inhalation inhalation route for route for route for 30 days. 30 days. 30 days. Tradjenta 5 Tradjenta 5 No Tradjenta [facility] mg tablet mg tablet 5 mg Medic al Take 1 Take 1 tablet tablet tablet Take 1 every day every day tablet by oral by oral every day route for route for by oral 30 days. 30 days. route for 30 days. tramadol 50 tramadol 50 No tramadol [facility] mg tablet mg tablet 50 mg Medi lawrence Take 1 Take 1 tablet tablet tablet Take 1 every 8 every 8 tablet hours by hours by every 8 oral route oral route hours by as needed as needed oral route for 30 for 30 as needed days. days. for 30 days. Triumeq 600 Triumeq 600 No 1 Q1D Triumeq [facility] mg-50 mg-50 600 mg-50 Medical mg-300 mg mg-300 mg mg-300 mg tablet Take tablet Take tablet 1 tablet 1 tablet Take 1 every day every day tablet by oral by oral every day route. route. by oral route. Tylenol Tylenol No 1 BID Tylenol [facility] Extra Extra Extra Medical Strength Strength Strength 500 mg 500 mg 500 mg tablet Take tablet Take tablet 1 tablet 1 tablet Take 1 twice a day twice a day tablet by oral by oral twice a route. route. day by oral route. zinc zinc No 1capsul Q1D zinc [facility] sulfate 50 sulfate 50 e(s) sulfate 50 Medical mg zinc mg zinc mg zinc (220 mg) (220 mg) (220 mg) capsule capsule capsule Take 1 Take 1 Take 1 capsule capsule capsule every day every day every day by oral by oral by oral route. route. route. Advair Advair No 1puff(s BID Advair [facility] Diskus 500 Diskus 500 ) Diskus 500 Medical mcg-50 mcg-50 mcg-50 mcg/dose mcg/dose mcg/dose powder for powder for powder for inhalation inhalation inhalation Inhale 1 Inhale 1 Inhale 1 puff twice puff twice puff twice a day by a day by a day by inhalation inhalation inhalation route for route for route for 30 days. 30 days. 30 days. Artificial Artificial No 1applic Q1D Artificial [facility](s Eye Medical Lubricant Lubricant ) Lubricant 83 %-15 % 83 %-15 % 83 %-15 % ointment ointment ointment Apply 1 Apply 1 Apply 1 application application applicatio every day every day n every by by day by ophthalmic ophthalmic ophthalmic route. route. route. aspirin 81 aspirin 81 No 1 Q1D aspirin 81 [facility] mg mg mg Medical tablet,dago tablet,dago tablet,del yed release yed release ayed Take 1 Take 1 release tablet tablet Take 1 every day every day tablet by oral by oral every day route. route. by oral route. benztropine benztropine No benztropin [facility] 1 mg tablet 1 mg tablet e 1 mg Medical Take 1 Take 1 tablet tablet tablet Take 1 every day every day tablet by oral by oral every day route for route for by oral 30 days. 30 days. route for 30 days. Biofreeze Biofreeze No Biofreeze [facility] (menthol) 5 (menthol) 5 (menthol) Medical % topical % topical 5 % gel every 4 gel every 4 topical hours as hours as gel every needed needed 4 hours as needed buspirone 5 buspirone 5 No buspirone [facility] mg tablet mg tablet 5 mg Medic al Take 1 Take 1 tablet tablet 3 tablet 3 Take 1 times a day times a day tablet 3 by oral by oral times a route for route for day by 30 days. 30 days. oral route for 30 days. divalproex divalproex No 2capsul TID divalproex [facility] 125 mg 125 mg e(s) 125 mg Medical capsule,del capsule,del capsule,de ayed ayed layed release release release sprinkle sprinkle sprinkle Take 2 Take 2 Take 2 capsules 3 capsules 3 capsules 3 times a day times a day times a by oral by oral day by route for route for oral route 30 days. 30 days. for 30 days. ergocalcife ergocalcife No ergocalcif [facility] rol rol black Medical (vitamin (vitamin (vitamin D2) 1,250 D2) 1,250 D2) 1,250 mcg (50,000 mcg (50,000 mcg unit) unit) (50,000 capsule capsule unit) capsule gabapentin gabapentin No gabapentin [facility] 300 mg 300 mg 300 mg Medical capsule capsule capsule Take 1 Take 1 Take 1 capsule 3 capsule 3 capsule 3 times a day times a day times a by oral by oral day by route for route for oral route 30 days. 30 days. for 30 days. GlucaGen GlucaGen No GlucaGen [facility] via HypoKit 1 HypoKit 1 HypoKit 1 Medical mg mg mg Injection Injection Injection as needd as needd as needd PRN PRN PRN ipratropium ipratropium No 3mL Q6H ipratropiu [facility] 0.5 0.5 m 0.5 Medical mg-albutero mg-albutero mg-albuter l 3 mg (2.5 l 3 mg (2.5 ol 3 mg mg base)/3 mg base)/3 (2.5 mg mL mL base)/3 mL nebulizatio nebulizatio nebulizati n soln n soln on soln Inhale 3 mL Inhale 3 mL Inhale 3 every 6 every 6 mL every 6 hours by hours by hours by inhalation inhalation inhalation route as route as route as needed for needed for needed for 7 days. 7 days. 7 days. Lantus Lantus No 24unit( Q1D Lantus [facility] U-100 U-100 s) U-100 Medical Insulin 100 Insulin 100 Insulin unit/mL unit/mL 100 subcutaneou subcutaneou unit/mL s solution s solution subcutaneo Inject 24 Inject 24 us units every units every solution day by day by Inject 24 sub-q route sub-q route units at bedtime at bedtime every day for 28 for 28 by sub-q days. days. route at bedtime for 28 days. melatonin 5 melatonin 5 No 1capsul Q1D melatonin [facility] mg capsule mg capsule e(s) 5 mg Med ical Take 1 Take 1 capsule capsule capsule Take 1 every day every day capsule by oral by oral every day route at route at by oral bedtime. bedtime. route at bedtime. Miralax 17 Miralax 17 No 1packet Q1D Miralax 17 [facility] gram oral gram oral (s) gram oral Medical powder powder powder packet Take packet Take packet 1 packet 1 packet Take 1 every day every day packet by oral by oral every day route. route. by oral route. omeprazole omeprazole No omeprazole [facility] 20 mg 20 mg 20 mg Medical capsule,del capsule,del capsule,de ayed ayed layed release release release risperidone risperidone No 1 Q1D risperidon [facility] 1 mg tablet 1 mg tablet e 1 mg Medical Take 1 Take 1 tablet tablet tablet Take 1 every day every day tablet by oral by oral every day route for route for by oral 30 days. 30 days. route for 30 days. sertraline sertraline No 1 Q1D sertraline [facility] 100 mg 100 mg 100 mg Medical tablet Take tablet Take tablet 1 tablet 1 tablet Take 1 every day every day tablet by oral by oral every day route. route. by oral route. Spiriva Spiriva No 1capsul Q1D Spiriva [facility] via with with e(s) with Medical HandiHaler HandiHaler HandiHaler 18 mcg and 18 mcg and 18 mcg and inhalation inhalation inhalation capsules capsules capsules Inhale 1 Inhale 1 Inhale 1 capsule capsule capsule every day every day every day by by by inhalation inhalation inhalation route for route for route for 30 days. 30 days. 30 days. Tradjenta 5 Tradjenta 5 No Tradjenta [facility] mg tablet mg tablet 5 mg Medic al Take 1 Take 1 tablet tablet tablet Take 1 every day every day tablet by oral by oral every day route for route for by oral 30 days. 30 days. route for 30 days. tramadol 50 tramadol 50 No 1 Q8H tramadol [facility] mg tablet mg tablet 50 mg Medi lawrence Take 1 Take 1 tablet tablet tablet Take 1 every 8 every 8 tablet hours by hours by every 8 oral route oral route hours by as needed as needed oral route for 30 for 30 as needed days. days. for 30 days. Triumeq 600 Triumeq 600 No 1 Q1D Triumeq [facility] mg-50 mg-50 600 mg-50 Medical mg-300 mg mg-300 mg mg-300 mg tablet Take tablet Take tablet 1 tablet 1 tablet Take 1 every day every day tablet by oral by oral every day route. route. by oral route. Tylenol Tylenol No 1 BID Tylenol [facility] Extra Extra Extra Medical Strength Strength Strength 500 mg 500 mg 500 mg tablet Take tablet Take tablet 1 tablet 1 tablet Take 1 twice a day twice a day tablet by oral by oral twice a route. route. day by oral route. zinc zinc No 1capsul Q1D zinc [facility] sulfate 50 sulfate 50 e(s) sulfate 50 Medical mg zinc mg zinc mg zinc (220 mg) (220 mg) (220 mg) capsule capsule capsule Take 1 Take 1 Take 1 capsule capsule capsule every day every day every day by oral by oral by oral route. route. route. Advair Advair No Advair [facility] Diskus 500 Diskus 500 Diskus 500 Medical mcg-50 mcg-50 mcg-50 mcg/dose mcg/dose mcg/dose powder for powder for powder for inhalation inhalation inhalation Inhale 1 Inhale 1 Inhale 1 puff twice puff twice puff twice a day by a day by a day by inhalation inhalation inhalation route for route for route for 30 days. 30 days. 30 days. Artificial Artificial No 1applic Q1D Artificial [facility] Eye Medical Lubricant Lubricant ) Lubricant 83 %-15 % 83 %-15 % 83 %-15 % ointment ointment ointment Apply 1 Apply 1 Apply 1 application application applicatio every day every day n every by by day by ophthalmic ophthalmic ophthalmic route. route. route. aspirin 81 aspirin 81 No 1 Q1D aspirin 81 [facility] mg mg mg Medical tablet,dago tablet,dago tablet,del yed release yed release ayed Take 1 Take 1 release tablet tablet Take 1 every day every day tablet by oral by oral every day route. route. by oral route. atorvastati atorvastati No 1 Q1D atorvastat [facility] n 40 mg n 40 mg in 40 mg Medic al tablet Take tablet Take tablet 1 tablet 1 tablet Take 1 every day every day tablet by oral by oral every day route. route. by oral route. benztropine benztropine No benztropin [facility] 1 mg tablet 1 mg tablet e 1 mg Medical Take 1 Take 1 tablet tablet tablet Take 1 every day every day tablet by oral by oral every day route for route for by oral 30 days. 30 days. route for 30 days. Biofreeze Biofreeze No Biofreeze [facility] (menthol) 5 (menthol) 5 (menthol) Medical % topical % topical 5 % gel every 4 gel every 4 topical hours as hours as gel every needed needed 4 hours as needed buspirone 5 buspirone 5 No buspirone [facility] mg tablet mg tablet 5 mg Medic al Take 1 Take 1 tablet tablet 3 tablet 3 Take 1 times a day times a day tablet 3 by oral by oral times a route for route for day by 30 days. 30 days. oral route for 30 days. diclofenac diclofenac No diclofenac [facility] 1 % topical 1 % topical 1 % M edical gel gel topical gel divalproex divalproex No divalproex [facility] 125 mg 125 mg 125 mg Medical capsule,del capsule,del capsule,de ayed ayed layed release release release sprinkle sprinkle sprinkle Take 2 Take 2 Take 2 capsules 3 capsules 3 capsules 3 times a day times a day times a by oral by oral day by route for route for oral route 30 days. 30 days. for 30 days. ergocalcife ergocalcife No ergocalcif [facility] rol rol black Medical (vitamin (vitamin (vitamin D2) 1,250 D2) 1,250 D2) 1,250 mcg (50,000 mcg (50,000 mcg unit) unit) (50,000 capsule capsule unit) capsule gabapentin gabapentin No gabapentin [facility] 300 mg 300 mg 300 mg Medical capsule capsule capsule Take 1 Take 1 Take 1 capsule 3 capsule 3 capsule 3 times a day times a day times a by oral by oral day by route for route for oral route 30 days. 30 days. for 30 days. GlucaGen GlucaGen No GlucaGen [facility] via HypoKit 1 HypoKit 1 HypoKit 1 Medical mg mg mg Injection Injection Injection as needd as needd as needd PRN PRN PRN ipratropium ipratropium No ipratropiu [facility] 0.5 0.5 m 0.5 Medical mg-albutero mg-albutero mg-albuter l 3 mg (2.5 l 3 mg (2.5 ol 3 mg mg base)/3 mg base)/3 (2.5 mg mL mL base)/3 mL nebulizatio nebulizatio nebulizati n soln n soln on soln Inhale 3 mL Inhale 3 mL Inhale 3 every 6 every 6 mL every 6 hours by hours by hours by inhalation inhalation inhalation route as route as route as needed for needed for needed for 7 days. 7 days. 7 days. Lantus Lantus No Lantus [facility] U-100 U-100 U-100 Medical Insulin 100 Insulin 100 Insulin unit/mL unit/mL 100 subcutaneou subcutaneou unit/mL s solution s solution subcutaneo Inject 24 Inject 24 us units every units every solution day by day by Inject 24 sub-q route sub-q route units at bedtime at bedtime every day for 28 for 28 by sub-q days. days. route at bedtime for 28 days. melatonin 5 melatonin 5 No 1capsul Q1D melatonin [facility] mg capsule mg capsule e(s) 5 mg Med ical Take 1 Take 1 capsule capsule capsule Take 1 every day every day capsule by oral by oral every day route at route at by oral bedtime. bedtime. route at bedtime. Miralax 17 Miralax 17 No 1packet Q1D Miralax 17 [facility] gram oral gram oral (s) gram oral Medical powder powder powder packet Take packet Take packet 1 packet 1 packet Take 1 every day every day packet by oral by oral every day route. route. by oral route. nystatin nystatin No nystatin [facility] via 100,000 100,000 100,000 Medica l unit/gram unit/gram unit/gram topical topical topical ointment ointment ointment risperidone risperidone No risperidon [facility] 1 mg tablet 1 mg tablet e 1 mg Medical Take 1 Take 1 tablet tablet tablet Take 1 every day every day tablet by oral by oral every day route for route for by oral 30 days. 30 days. route for 30 days. sertraline sertraline No sertraline [facility] 100 mg 100 mg 100 mg Medical tablet Take tablet Take tablet 1 tablet 1 tablet Take 1 every day every day tablet by oral by oral every day route. route. by oral route. Spiriva Spiriva No Spiriva [facility] with with with Medical HandiHaler HandiHaler HandiHaler 18 mcg and 18 mcg and 18 mcg and inhalation inhalation inhalation capsules capsules capsules Inhale 1 Inhale 1 Inhale 1 capsule capsule capsule every day every day every day by by by inhalation inhalation inhalation route for route for route for 30 days. 30 days. 30 days. Tradjenta 5 Tradjenta 5 No Tradjenta [facility] mg tablet mg tablet 5 mg Medic al Take 1 Take 1 tablet tablet tablet Take 1 every day every day tablet by oral by oral every day route for route for by oral 30 days. 30 days. route for 30 days. tramadol 50 tramadol 50 No tramadol [facility] mg tablet mg tablet 50 mg Medi lawrence Take 1 Take 1 tablet tablet tablet Take 1 every 8 every 8 tablet hours by hours by every 8 oral route oral route hours by as needed as needed oral route for 30 for 30 as needed days. days. for 30 days. Triumeq 600 Triumeq 600 No 1 Q1D Triumeq [facility] mg-50 mg-50 600 mg-50 Medical mg-300 mg mg-300 mg mg-300 mg tablet Take tablet Take tablet 1 tablet 1 tablet Take 1 every day every day tablet by oral by oral every day route. route. by oral route. Tylenol Tylenol No 1 BID Tylenol [facility] Extra Extra Extra Medical Strength Strength Strength 500 mg 500 mg 500 mg tablet Take tablet Take tablet 1 tablet 1 tablet Take 1 twice a day twice a day tablet by oral by oral twice a route. route. day by oral route. zinc zinc No 1capsul Q1D zinc [facility] sulfate 50 sulfate 50 e(s) sulfate 50 Medical mg zinc mg zinc mg zinc (220 mg) (220 mg) (220 mg) capsule capsule capsule Take 1 Take 1 Take 1 capsule capsule capsule every day every day every day by oral by oral by oral route. route. route. Advair Advair No Advair [facility] Diskus 500 Diskus 500 Diskus 500 Medical mcg-50 mcg-50 mcg-50 mcg/dose mcg/dose mcg/dose powder for powder for powder for inhalation inhalation inhalation Inhale 1 Inhale 1 Inhale 1 puff twice puff twice puff twice a day by a day by a day by inhalation inhalation inhalation route for route for route for 30 days. 30 days. 30 days. Artificial Artificial No 1applic Q1D Artificial [facility] Eye Medical Lubricant Lubricant ) Lubricant 83 %-15 % 83 %-15 % 83 %-15 % ointment ointment ointment Apply 1 Apply 1 Apply 1 application application applicatio every day every day n every by by day by ophthalmic ophthalmic ophthalmic route. route. route. aspirin 81 aspirin 81 No 1 Q1D aspirin 81 [facility] mg mg mg Medical tablet,dago tablet,dago tablet,del yed release yed release ayed Take 1 Take 1 release tablet tablet Take 1 every day every day tablet by oral by oral every day route. route. by oral route. atorvastati atorvastati No atorvastat [facility] n 40 mg n 40 mg in 40 mg Medic al tablet Take tablet Take tablet 1 tablet 1 tablet Take 1 every day every day tablet by oral by oral every day route. route. by oral route. benztropine benztropine No benztropin [facility] 1 mg tablet 1 mg tablet e 1 mg Medical Take 1 Take 1 tablet tablet tablet Take 1 every day every day tablet by oral by oral every day route for route for by oral 30 days. 30 days. route for 30 days. Biofreeze Biofreeze No Biofreeze [facility] (menthol) 5 (menthol) 5 (menthol) Medical % topical % topical 5 % gel every 4 gel every 4 topical hours as hours as gel every needed needed 4 hours as needed buspirone 5 buspirone 5 No buspirone [facility] mg tablet mg tablet 5 mg Medic al Take 1 Take 1 tablet tablet 3 tablet 3 Take 1 times a day times a day tablet 3 by oral by oral times a route for route for day by 30 days. 30 days. oral route for 30 days. diclofenac diclofenac No diclofenac [facility] 1 % topical 1 % topical 1 % M edical gel gel topical gel divalproex divalproex No divalproex [facility] 125 mg 125 mg 125 mg Medical capsule,del capsule,del capsule,de ayed ayed layed release release release sprinkle sprinkle sprinkle Take 2 Take 2 Take 2 capsules 3 capsules 3 capsules 3 times a day times a day times a by oral by oral day by route for route for oral route 30 days. 30 days. for 30 days. ergocalcife ergocalcife No ergocalcif [facility] rol rol black Medical (vitamin (vitamin (vitamin D2) 1,250 D2) 1,250 D2) 1,250 mcg (50,000 mcg (50,000 mcg unit) unit) (50,000 capsule capsule unit) capsule gabapentin gabapentin No gabapentin [facility] 300 mg 300 mg 300 mg Medical capsule capsule capsule Take 1 Take 1 Take 1 capsule 3 capsule 3 capsule 3 times a day times a day times a by oral by oral day by route for route for oral route 30 days. 30 days. for 30 days. GlucaGen GlucaGen No GlucaGen [facility] via HypoKit 1 HypoKit 1 HypoKit 1 Medical mg mg mg Injection Injection Injection as needd as needd as needd PRN PRN PRN ipratropium ipratropium No ipratropiu [facility] 0.5 0.5 m 0.5 Medical mg-albutero mg-albutero mg-albuter l 3 mg (2.5 l 3 mg (2.5 ol 3 mg mg base)/3 mg base)/3 (2.5 mg mL mL base)/3 mL nebulizatio nebulizatio nebulizati n soln n soln on soln Inhale 3 mL Inhale 3 mL Inhale 3 every 6 every 6 mL every 6 hours by hours by hours by inhalation inhalation inhalation route as route as route as needed for needed for needed for 7 days. 7 days. 7 days. Lantus Lantus No Lantus [facility] U-100 U-100 U-100 Medical Insulin 100 Insulin 100 Insulin unit/mL unit/mL 100 subcutaneou subcutaneou unit/mL s solution s solution subcutaneo Inject 24 Inject 24 us units every units every solution day by day by Inject 24 sub-q route sub-q route units at bedtime at bedtime every day for 28 for 28 by sub-q days. days. route at bedtime for 28 days. melatonin 5 melatonin 5 No 1capsul Q1D melatonin [facility] mg capsule mg capsule e(s) 5 mg Med ical Take 1 Take 1 capsule capsule capsule Take 1 every day every day capsule by oral by oral every day route at route at by oral bedtime. bedtime. route at bedtime. Miralax 17 Miralax 17 No 1packet Q1D Miralax 17 [facility] gram oral gram oral (s) gram oral Medical powder powder powder packet Take packet Take packet 1 packet 1 packet Take 1 every day every day packet by oral by oral every day route. route. by oral route. nystatin nystatin No nystatin [facility] via 100,000 100,000 100,000 Medica l unit/gram unit/gram unit/gram topical topical topical ointment ointment ointment risperidone risperidone No risperidon [facility] 1 mg tablet 1 mg tablet e 1 mg Medical Take 1 Take 1 tablet tablet tablet Take 1 every day every day tablet by oral by oral every day route for route for by oral 30 days. 30 days. route for 30 days. sertraline sertraline No sertraline [facility] 100 mg 100 mg 100 mg Medical tablet Take tablet Take tablet 1 tablet 1 tablet Take 1 every day every day tablet by oral by oral every day route. route. by oral route. Spiriva Spiriva No Spiriva [facility] with with with Medical HandiHaler HandiHaler HandiHaler 18 mcg and 18 mcg and 18 mcg and inhalation inhalation inhalation capsules capsules capsules Inhale 1 Inhale 1 Inhale 1 capsule capsule capsule every day every day every day by by by inhalation inhalation inhalation route for route for route for 30 days. 30 days. 30 days. Tradjenta 5 Tradjenta 5 No Tradjenta [facility] mg tablet mg tablet 5 mg Medic al Take 1 Take 1 tablet tablet tablet Take 1 every day every day tablet by oral by oral every day route for route for by oral 30 days. 30 days. route for 30 days. tramadol 50 tramadol 50 No tramadol [facility] mg tablet mg tablet 50 mg Medi lawrence Take 1 Take 1 tablet tablet tablet Take 1 every 8 every 8 tablet hours by hours by every 8 oral route oral route hours by as needed as needed oral route for 30 for 30 as needed days. days. for 30 days. Triumeq 600 Triumeq 600 No 1 Q1D Triumeq [facility] mg-50 mg-50 600 mg-50 Medical mg-300 mg mg-300 mg mg-300 mg tablet Take tablet Take tablet 1 tablet 1 tablet Take 1 every day every day tablet by oral by oral every day route. route. by oral route. Tylenol Tylenol No 1 BID Tylenol [facility] Extra Extra Extra Medical Strength Strength Strength 500 mg 500 mg 500 mg tablet Take tablet Take tablet 1 tablet 1 tablet Take 1 twice a day twice a day tablet by oral by oral twice a route. route. day by oral route. zinc zinc No 1capsul Q1D zinc [facility] sulfate 50 sulfate 50 e(s) sulfate 50 Medical mg zinc mg zinc mg zinc (220 mg) (220 mg) (220 mg) capsule capsule capsule Take 1 Take 1 Take 1 capsule capsule capsule every day every day every day by oral by oral by oral route. route. route. Advair Advair No Advair [facility] Diskus 500 Diskus 500 Diskus 500 Medical mcg-50 mcg-50 mcg-50 mcg/dose mcg/dose mcg/dose powder for powder for powder for inhalation inhalation inhalation Inhale 1 Inhale 1 Inhale 1 puff twice puff twice puff twice a day by a day by a day by inhalation inhalation inhalation route for route for route for 30 days. 30 days. 30 days. Artificial Artificial No 1applic Q1D Artificial [facility] Eye Medical Lubricant Lubricant ) Lubricant 83 %-15 % 83 %-15 % 83 %-15 % ointment ointment ointment Apply 1 Apply 1 Apply 1 application application applicatio every day every day n every by by day by ophthalmic ophthalmic ophthalmic route. route. route. aspirin 81 aspirin 81 No 1 Q1D aspirin 81 [facility] mg mg mg Medical tablet,dago tablet,dago tablet,del yed release yed release ayed Take 1 Take 1 release tablet tablet Take 1 every day every day tablet by oral by oral every day route. route. by oral route. atorvastati atorvastati No atorvastat [facility] n 40 mg n 40 mg in 40 mg Medic al tablet Take tablet Take tablet 1 tablet 1 tablet Take 1 every day every day tablet by oral by oral every day route. route. by oral route. benztropine benztropine No benztropin [facility] 1 mg tablet 1 mg tablet e 1 mg Medical Take 1 Take 1 tablet tablet tablet Take 1 every day every day tablet by oral by oral every day route for route for by oral 30 days. 30 days. route for 30 days. Biofreeze Biofreeze No Biofreeze [facility] (menthol) 5 (menthol) 5 (menthol) Medical % topical % topical 5 % gel every 4 gel every 4 topical hours as hours as gel every needed needed 4 hours as needed buspirone 5 buspirone 5 No buspirone [facility] mg tablet mg tablet 5 mg Medic al Take 1 Take 1 tablet tablet 3 tablet 3 Take 1 times a day times a day tablet 3 by oral by oral times a route for route for day by 30 days. 30 days. oral route for 30 days. diclofenac diclofenac No diclofenac [facility] 1 % topical 1 % topical 1 % M edical gel gel topical gel divalproex divalproex No divalproex [facility] 125 mg 125 mg 125 mg Medical capsule,del capsule,del capsule,de ayed ayed layed release release release sprinkle sprinkle sprinkle Take 2 Take 2 Take 2 capsules 3 capsules 3 capsules 3 times a day times a day times a by oral by oral day by route for route for oral route 30 days. 30 days. for 30 days. ergocalcife ergocalcife No ergocalcif [facility] rol rol black Medical (vitamin (vitamin (vitamin D2) 1,250 D2) 1,250 D2) 1,250 mcg (50,000 mcg (50,000 mcg unit) unit) (50,000 capsule capsule unit) capsule gabapentin gabapentin No gabapentin [facility] 300 mg 300 mg 300 mg Medical capsule capsule capsule Take 1 Take 1 Take 1 capsule 3 capsule 3 capsule 3 times a day times a day times a by oral by oral day by route for route for oral route 30 days. 30 days. for 30 days. GlucaGen GlucaGen No GlucaGen [facility] via HypoKit 1 HypoKit 1 HypoKit 1 Medical mg mg mg Injection Injection Injection as needd as needd as needd PRN PRN PRN ipratropium ipratropium No ipratropiu [facility] 0.5 0.5 m 0.5 Medical mg-albutero mg-albutero mg-albuter l 3 mg (2.5 l 3 mg (2.5 ol 3 mg mg base)/3 mg base)/3 (2.5 mg mL mL base)/3 mL nebulizatio nebulizatio nebulizati n soln n soln on soln Inhale 3 mL Inhale 3 mL Inhale 3 every 6 every 6 mL every 6 hours by hours by hours by inhalation inhalation inhalation route as route as route as needed for needed for needed for 7 days. 7 days. 7 days. Lantus Lantus No Lantus [facility] U-100 U-100 U-100 Medical Insulin 100 Insulin 100 Insulin unit/mL unit/mL 100 subcutaneou subcutaneou unit/mL s solution s solution subcutaneo Inject 24 Inject 24 us units every units every solution day by day by Inject 24 sub-q route sub-q route units at bedtime at bedtime every day for 28 for 28 by sub-q days. days. route at bedtime for 28 days. melatonin 5 melatonin 5 No 1capsul Q1D melatonin [facility] mg capsule mg capsule e(s) 5 mg Med ical Take 1 Take 1 capsule capsule capsule Take 1 every day every day capsule by oral by oral every day route at route at by oral bedtime. bedtime. route at bedtime. Miralax 17 Miralax 17 No 1packet Q1D Miralax 17 [facility] gram oral gram oral (s) gram oral Medical powder powder powder packet Take packet Take packet 1 packet 1 packet Take 1 every day every day packet by oral by oral every day route. route. by oral route. nystatin nystatin No nystatin [facility] via 100,000 100,000 100,000 Medica l unit/gram unit/gram unit/gram topical topical topical ointment ointment ointment risperidone risperidone No risperidon [facility] 1 mg tablet 1 mg tablet e 1 mg Medical Take 1 Take 1 tablet tablet tablet Take 1 every day every day tablet by oral by oral every day route for route for by oral 30 days. 30 days. route for 30 days. sertraline sertraline No sertraline [facility] 100 mg 100 mg 100 mg Medical tablet Take tablet Take tablet 1 tablet 1 tablet Take 1 every day every day tablet by oral by oral every day route. route. by oral route. Spiriva Spiriva No Spiriva [facility] with with with Medical HandiHaler HandiHaler HandiHaler 18 mcg and 18 mcg and 18 mcg and inhalation inhalation inhalation capsules capsules capsules Inhale 1 Inhale 1 Inhale 1 capsule capsule capsule every day every day every day by by by inhalation inhalation inhalation route for route for route for 30 days. 30 days. 30 days. Tradjenta 5 Tradjenta 5 No Tradjenta [facility] mg tablet mg tablet 5 mg Medic al Take 1 Take 1 tablet tablet tablet Take 1 every day every day tablet by oral by oral every day route for route for by oral 30 days. 30 days. route for 30 days. tramadol 50 tramadol 50 No tramadol [facility] mg tablet mg tablet 50 mg Medi lawrence Take 1 Take 1 tablet tablet tablet Take 1 every 8 every 8 tablet hours by hours by every 8 oral route oral route hours by as needed as needed oral route for 30 for 30 as needed days. days. for 30 days. Triumeq 600 Triumeq 600 No 1 Q1D Triumeq [facility] mg-50 mg-50 600 mg-50 Medical mg-300 mg mg-300 mg mg-300 mg tablet Take tablet Take tablet 1 tablet 1 tablet Take 1 every day every day tablet by oral by oral every day route. route. by oral route. Tylenol Tylenol No 1 BID Tylenol [facility] Extra Extra Extra Medical Strength Strength Strength 500 mg 500 mg 500 mg tablet Take tablet Take tablet 1 tablet 1 tablet Take 1 twice a day twice a day tablet by oral by oral twice a route. route. day by oral route. zinc zinc No 1capsul Q1D zinc [facility] sulfate 50 sulfate 50 e(s) sulfate 50 Medical mg zinc mg zinc mg zinc (220 mg) (220 mg) (220 mg) capsule capsule capsule Take 1 Take 1 Take 1 capsule capsule capsule every day every day every day by oral by oral by oral route. route. route. Benztropine Benztropine Yes [facility] 1 ml Common Mesylate [facility] Advair Advair No Advair [facility] Diskus 500 Diskus 500 Diskus 500 Medical mcg-50 mcg-50 mcg-50 mcg/dose mcg/dose mcg/dose powder for powder for powder for inhalation inhalation inhalation Inhale 1 Inhale 1 Inhale 1 puff twice puff twice puff twice a day by a day by a day by inhalation inhalation inhalation route for route for route for 30 days. 30 days. 30 days. Artificial Artificial No 1applic Q1D Artificial [facility](s Eye Medical Lubricant Lubricant ) Lubricant 83 %-15 % 83 %-15 % 83 %-15 % ointment ointment ointment Apply 1 Apply 1 Apply 1 application application applicatio every day every day n every by by day by ophthalmic ophthalmic ophthalmic route. route. route. aspirin 81 aspirin 81 No 1 Q1D aspirin 81 [facility] mg mg mg Medical tablet,dago tablet,dago tablet,del yed release yed release ayed Take 1 Take 1 release tablet tablet Take 1 every day every day tablet by oral by oral every day route. route. by oral route. atorvastati atorvastati No atorvastat [facility] n 40 mg n 40 mg in 40 mg Medic al tablet Take tablet Take tablet 1 tablet 1 tablet Take 1 every day every day tablet by oral by oral every day route. route. by oral route. azithromyci azithromyci No azithromyc [facility] n 250 mg n 250 mg in 250 mg Me dical tablet tablet tablet benztropine benztropine No benztropin [facility] 1 mg tablet 1 mg tablet e 1 mg Medical Take 1 Take 1 tablet tablet tablet Take 1 every day every day tablet by oral by oral every day route for route for by oral 30 days. 30 days. route for 30 days. Biofreeze Biofreeze No Biofreeze [facility] (menthol) 5 (menthol) 5 (menthol) Medical % topical % topical 5 % gel every 4 gel every 4 topical hours as hours as gel every needed needed 4 hours as needed buspirone 5 buspirone 5 No buspirone [facility] mg tablet mg tablet 5 mg Medic al Take 1 Take 1 tablet tablet 3 tablet 3 Take 1 times a day times a day tablet 3 by oral by oral times a route for route for day by 30 days. 30 days. oral route for 30 days. diclofenac diclofenac No diclofenac [facility] 1 % topical 1 % topical 1 % M edical gel gel topical gel divalproex divalproex No divalproex [facility] 125 mg 125 mg 125 mg Medical capsule,del capsule,del capsule,de ayed ayed layed release release release sprinkle sprinkle sprinkle Take 2 Take 2 Take 2 capsules 3 capsules 3 capsules 3 times a day times a day times a by oral by oral day by route for route for oral route 30 days. 30 days. for 30 days. ergocalcife ergocalcife No ergocalcif [facility] rol rol black Medical (vitamin (vitamin (vitamin D2) 1,250 D2) 1,250 D2) 1,250 mcg (50,000 mcg (50,000 mcg unit) unit) (50,000 capsule capsule unit) capsule gabapentin gabapentin No gabapentin [facility] 300 mg 300 mg 300 mg Medical capsule capsule capsule Take 1 Take 1 Take 1 capsule 3 capsule 3 capsule 3 times a day times a day times a by oral by oral day by route for route for oral route 30 days. 30 days. for 30 days. GlucaGen GlucaGen No GlucaGen [facility] via HypoKit 1 HypoKit 1 HypoKit 1 Medical mg mg mg Injection Injection Injection as needd as needd as needd PRN PRN PRN ipratropium ipratropium No ipratropiu [facility] 0.5 0.5 m 0.5 Medical mg-albutero mg-albutero mg-albuter l 3 mg (2.5 l 3 mg (2.5 ol 3 mg mg base)/3 mg base)/3 (2.5 mg mL mL base)/3 mL nebulizatio nebulizatio nebulizati n soln n soln on soln Inhale 3 mL Inhale 3 mL Inhale 3 every 6 every 6 mL every 6 hours by hours by hours by inhalation inhalation inhalation route as route as route as needed for needed for needed for 7 days. 7 days. 7 days. Lantus Lantus No Lantus [facility] U-100 U-100 U-100 Medical Insulin 100 Insulin 100 Insulin unit/mL unit/mL 100 subcutaneou subcutaneou unit/mL s solution s solution subcutaneo Inject 24 Inject 24 us units every units every solution day by day by Inject 24 sub-q route sub-q route units at bedtime at bedtime every day for 28 for 28 by sub-q days. days. route at bedtime for 28 days. melatonin 5 melatonin 5 No 1capsul Q1D melatonin [facility] mg capsule mg capsule e(s) 5 mg Med ical Take 1 Take 1 capsule capsule capsule Take 1 every day every day capsule by oral by oral every day route at route at by oral bedtime. bedtime. route at bedtime. Miralax 17 Miralax 17 No 1packet Q1D Miralax 17 [facility] gram oral gram oral (s) gram oral Medical powder powder powder packet Take packet Take packet 1 packet 1 packet Take 1 every day every day packet by oral by oral every day route. route. by oral route. nystatin nystatin No nystatin [facility] via 100,000 100,000 100,000 Medica l unit/gram unit/gram unit/gram topical topical topical ointment ointment ointment risperidone risperidone No risperidon [facility] 1 mg tablet 1 mg tablet e 1 mg Medical Take 1 Take 1 tablet tablet tablet Take 1 every day every day tablet by oral by oral every day route for route for by oral 30 days. 30 days. route for 30 days. sertraline sertraline No sertraline [facility] 100 mg 100 mg 100 mg Medical tablet Take tablet Take tablet 1 tablet 1 tablet Take 1 every day every day tablet by oral by oral every day route. route. by oral route. Spiriva Spiriva No Spiriva [facility] with with with Medical HandiHaler HandiHaler HandiHaler 18 mcg and 18 mcg and 18 mcg and inhalation inhalation inhalation capsules capsules capsules Inhale 1 Inhale 1 Inhale 1 capsule capsule capsule every day every day every day by by by inhalation inhalation inhalation route for route for route for 30 days. 30 days. 30 days. Tradjenta 5 Tradjenta 5 No Tradjenta [facility] mg tablet mg tablet 5 mg Medic al Take 1 Take 1 tablet tablet tablet Take 1 every day every day tablet by oral by oral every day route for route for by oral 30 days. 30 days. route for 30 days. tramadol 50 tramadol 50 No tramadol [facility] mg tablet mg tablet 50 mg Medi lawrence Take 1 Take 1 tablet tablet tablet Take 1 every 8 every 8 tablet hours by hours by every 8 oral route oral route hours by as needed as needed oral route for 30 for 30 as needed days. days. for 30 days. Triumeq 600 Triumeq 600 No 1 Q1D Triumeq [facility] mg-50 mg-50 600 mg-50 Medical mg-300 mg mg-300 mg mg-300 mg tablet Take tablet Take tablet 1 tablet 1 tablet Take 1 every day every day tablet by oral by oral every day route. route. by oral route. Tylenol Tylenol No 1 BID Tylenol [facility] Extra Extra Extra Medical Strength Strength Strength 500 mg 500 mg 500 mg tablet Take tablet Take tablet 1 tablet 1 tablet Take 1 twice a day twice a day tablet by oral by oral twice a route. route. day by oral route. zinc zinc No 1capsul Q1D zinc [facility] sulfate 50 sulfate 50 e(s) sulfate 50 Medical mg zinc mg zinc mg zinc (220 mg) (220 mg) (220 mg) capsule capsule capsule Take 1 Take 1 Take 1 capsule capsule capsule every day every day every day by oral by oral by oral route. route. route. Advair Advair No Advair [facility] Diskus 500 Diskus 500 Diskus 500 Medical mcg-50 mcg-50 mcg-50 mcg/dose mcg/dose mcg/dose powder for powder for powder for inhalation inhalation inhalation Inhale 1 Inhale 1 Inhale 1 puff twice puff twice puff twice a day by a day by a day by inhalation inhalation inhalation route for route for route for 30 days. 30 days. 30 days. Artificial Artificial No 1applic Q1D Artificial [facility] Eye Medical Lubricant Lubricant ) Lubricant 83 %-15 % 83 %-15 % 83 %-15 % ointment ointment ointment Apply 1 Apply 1 Apply 1 application application applicatio every day every day n every by by day by ophthalmic ophthalmic ophthalmic route. route. route. aspirin 81 aspirin 81 No 1 Q1D aspirin 81 [facility] mg mg mg Medical tablet,dago tablet,dago tablet,del yed release yed release ayed Take 1 Take 1 release tablet tablet Take 1 every day every day tablet by oral by oral every day route. route. by oral route. atorvastati atorvastati No atorvastat [facility] n 40 mg n 40 mg in 40 mg Medic al tablet Take tablet Take tablet 1 tablet 1 tablet Take 1 every day every day tablet by oral by oral every day route. route. by oral route. azithromyci azithromyci No azithromyc [facility] n 250 mg n 250 mg in 250 mg Me dical tablet tablet tablet benztropine benztropine No benztropin [facility] 1 mg tablet 1 mg tablet e 1 mg Medical Take 1 Take 1 tablet tablet tablet Take 1 every day every day tablet by oral by oral every day route for route for by oral 30 days. 30 days. route for 30 days. Biofreeze Biofreeze No Biofreeze [facility] (menthol) 5 (menthol) 5 (menthol) Medical % topical % topical 5 % gel every 4 gel every 4 topical hours as hours as gel every needed needed 4 hours as needed buspirone 5 buspirone 5 No buspirone [facility] mg tablet mg tablet 5 mg Medic al Take 1 Take 1 tablet tablet 3 tablet 3 Take 1 times a day times a day tablet 3 by oral by oral times a route for route for day by 30 days. 30 days. oral route for 30 days. diclofenac diclofenac No diclofenac [facility] 1 % topical 1 % topical 1 % M edical gel gel topical gel divalproex divalproex No divalproex [facility] 125 mg 125 mg 125 mg Medical capsule,del capsule,del capsule,de ayed ayed layed release release release sprinkle sprinkle sprinkle Take 2 Take 2 Take 2 capsules 3 capsules 3 capsules 3 times a day times a day times a by oral by oral day by route for route for oral route 30 days. 30 days. for 30 days. ergocalcife ergocalcife No ergocalcif [facility] (vitamin (vitamin (vitamin D2) 1,250 D2) 1,250 D2) 1,250 mcg (50,000 mcg (50,000 mcg unit) unit) (50,000 capsule capsule unit) capsule gabapentin gabapentin No gabapentin [facility] 300 mg 300 mg 300 mg Medical capsule capsule capsule Take 1 Take 1 Take 1 capsule 3 capsule 3 capsule 3 times a day times a day times a by oral by oral day by route for route for oral route 30 days. 30 days. for 30 days. GlucaGen GlucaGen No GlucaGen [facility] via HypoKit 1 HypoKit 1 HypoKit 1 Medical mg mg mg Injection Injection Injection as needd as needd as needd PRN PRN PRN ipratropium ipratropium No ipratropiu [facility] 0.5 0.5 m 0.5 Medical mg-albutero mg-albutero mg-albuter l 3 mg (2.5 l 3 mg (2.5 ol 3 mg mg base)/3 mg base)/3 (2.5 mg mL mL base)/3 mL nebulizatio nebulizatio nebulizati n soln n soln on soln Inhale 3 mL Inhale 3 mL Inhale 3 every 6 every 6 mL every 6 hours by hours by hours by inhalation inhalation inhalation route as route as route as needed for needed for needed for 7 days. 7 days. 7 days. Lantus Lantus No Lantus [facility] U-100 U-100 U-100 Medical Insulin 100 Insulin 100 Insulin unit/mL unit/mL 100 subcutaneou subcutaneou unit/mL s solution s solution subcutaneo Inject 24 Inject 24 us units every units every solution day by day by Inject 24 sub-q route sub-q route units at bedtime at bedtime every day for 28 for 28 by sub-q days. days. route at bedtime for 28 days. melatonin 5 melatonin 5 No 1capsul Q1D melatonin [facility] mg capsule mg capsule e(s) 5 mg Med ical Take 1 Take 1 capsule capsule capsule Take 1 every day every day capsule by oral by oral every day route at route at by oral bedtime. bedtime. route at bedtime. Miralax 17 Miralax 17 No 1packet Q1D Miralax 17 [facility] gram oral gram oral (s) gram oral Medical powder powder powder packet Take packet Take packet 1 packet 1 packet Take 1 every day every day packet by oral by oral every day route. route. by oral route. nystatin nystatin No nystatin [facility] via 100,000 100,000 100,000 Medica l unit/gram unit/gram unit/gram topical topical topical ointment ointment ointment risperidone risperidone No risperidon [facility] 1 mg tablet 1 mg tablet e 1 mg Medical Take 1 Take 1 tablet tablet tablet Take 1 every day every day tablet by oral by oral every day route for route for by oral 30 days. 30 days. route for 30 days. sertraline sertraline No sertraline [facility] 100 mg 100 mg 100 mg Medical tablet Take tablet Take tablet 1 tablet 1 tablet Take 1 every day every day tablet by oral by oral every day route. route. by oral route. Spiriva Spiriva No Spiriva [facility] with with with Medical HandiHaler HandiHaler HandiHaler 18 mcg and 18 mcg and 18 mcg and inhalation inhalation inhalation capsules capsules capsules Inhale 1 Inhale 1 Inhale 1 capsule capsule capsule every day every day every day by by by inhalation inhalation inhalation route for route for route for 30 days. 30 days. 30 days. Tradjenta 5 Tradjenta 5 No Tradjenta [facility] mg tablet mg tablet 5 mg Medic al Take 1 Take 1 tablet tablet tablet Take 1 every day every day tablet by oral by oral every day route for route for by oral 30 days. 30 days. route for 30 days. tramadol 50 tramadol 50 No tramadol [facility] mg tablet mg tablet 50 mg Medi lawrence Take 1 Take 1 tablet tablet tablet Take 1 every 8 every 8 tablet hours by hours by every 8 oral route oral route hours by as needed as needed oral route for 30 for 30 as needed days. days. for 30 days. Triumeq 600 Triumeq 600 No 1 Q1D Triumeq [facility] mg-50 mg-50 600 mg-50 Medical mg-300 mg mg-300 mg mg-300 mg tablet Take tablet Take tablet 1 tablet 1 tablet Take 1 every day every day tablet by oral by oral every day route. route. by oral route. Tylenol Tylenol No 1 BID Tylenol [facility] Extra Extra Extra Medical Strength Strength Strength 500 mg 500 mg 500 mg tablet Take tablet Take tablet 1 tablet 1 tablet Take 1 twice a day twice a day tablet by oral by oral twice a route. route. day by oral route. zinc zinc No 1capsul Q1D zinc [facility] sulfate 50 sulfate 50 e(s) sulfate 50 Medical mg zinc mg zinc mg zinc (220 mg) (220 mg) (220 mg) capsule capsule capsule Take 1 Take 1 Take 1 capsule capsule capsule every day every day every day by oral by oral by oral route. route. route. Advair Advair No Advair [facility] Diskus 500 Diskus 500 Diskus 500 Medical mcg-50 mcg-50 mcg-50 mcg/dose mcg/dose mcg/dose powder for powder for powder for inhalation inhalation inhalation Inhale 1 Inhale 1 Inhale 1 puff twice puff twice puff twice a day by a day by a day by inhalation inhalation inhalation route for route for route for 30 days. 30 days. 30 days. Artificial Artificial No 1applic Q1D Artificial [facility](s Eye Medical Lubricant Lubricant ) Lubricant 83 %-15 % 83 %-15 % 83 %-15 % ointment ointment ointment Apply 1 Apply 1 Apply 1 application application applicatio every day every day n every by by day by ophthalmic ophthalmic ophthalmic route. route. route. aspirin 81 aspirin 81 No 1 Q1D aspirin 81 [facility] mg mg mg Medical tablet,dago tablet,dago tablet,del yed release yed release ayed Take 1 Take 1 release tablet tablet Take 1 every day every day tablet by oral by oral every day route. route. by oral route. atorvastati atorvastati No atorvastat [facility] n 40 mg n 40 mg in 40 mg Medic al tablet Take tablet Take tablet 1 tablet 1 tablet Take 1 every day every day tablet by oral by oral every day route. route. by oral route. benztropine benztropine No benztropin [facility] 1 mg tablet 1 mg tablet e 1 mg Medical Take 1 Take 1 tablet tablet tablet Take 1 every day every day tablet by oral by oral every day route for route for by oral 30 days. 30 days. route for 30 days. Biofreeze Biofreeze No Biofreeze [facility] (menthol) 5 (menthol) 5 (menthol) Medical % topical % topical 5 % gel every 4 gel every 4 topical hours as hours as gel every needed needed 4 hours as needed buspirone 5 buspirone 5 No buspirone [facility] mg tablet mg tablet 5 mg Medic al Take 1 Take 1 tablet tablet 3 tablet 3 Take 1 times a day times a day tablet 3 by oral by oral times a route for route for day by 30 days. 30 days. oral route for 30 days. diclofenac diclofenac No diclofenac [facility] 1 % topical 1 % topical 1 % M edical gel gel topical gel divalproex divalproex No divalproex [facility] 125 mg 125 mg 125 mg Medical capsule,del capsule,del capsule,de ayed ayed layed release release release sprinkle sprinkle sprinkle Take 2 Take 2 Take 2 capsules 3 capsules 3 capsules 3 times a day times a day times a by oral by oral day by route for route for oral route 30 days. 30 days. for 30 days. ergocalcife ergocalcife No ergocalcif [facility] rol rol black [facility] (vitamin (vitamin (vitamin D2) 1,250 D2) 1,250 D2) 1,250 mcg (50,000 mcg (50,000 mcg unit) unit) (50,000 capsule capsule unit) capsule gabapentin gabapentin No gabapentin [facility] 300 mg 300 mg 300 mg Medical capsule capsule capsule Take 1 Take 1 Take 1 capsule 3 capsule 3 capsule 3 times a day times a day times a by oral by oral day by route for route for oral route 30 days. 30 days. for 30 days. GlucaGen GlucaGen No GlucaGen [facility] via HypoKit 1 HypoKit 1 HypoKit 1 Medical mg mg mg Injection Injection Injection as needd as needd as needd PRN PRN PRN ipratropium ipratropium No ipratropiu [facility] 0.5 0.5 m 0.5 Medical mg-albutero mg-albutero mg-albuter l 3 mg (2.5 l 3 mg (2.5 ol 3 mg mg base)/3 mg base)/3 (2.5 mg mL mL base)/3 mL nebulizatio nebulizatio nebulizati n soln n soln on soln Inhale 3 mL Inhale 3 mL Inhale 3 every 6 every 6 mL every 6 hours by hours by hours by inhalation inhalation inhalation route as route as route as needed for needed for needed for 7 days. 7 days. 7 days. Lantus Lantus No Lantus [facility] U-100 U-100 U-100 Medical Insulin 100 Insulin 100 Insulin unit/mL unit/mL 100 subcutaneou subcutaneou unit/mL s solution s solution subcutaneo Inject 24 Inject 24 us units every units every solution day by day by Inject 24 sub-q route sub-q route units at bedtime at bedtime every day for 28 for 28 by sub-q days. days. route at bedtime for 28 days. melatonin 5 melatonin 5 No 1capsul Q1D melatonin [facility] mg capsule mg capsule e(s) 5 mg Med ical Take 1 Take 1 capsule capsule capsule Take 1 every day every day capsule by oral by oral every day route at route at by oral bedtime. bedtime. route at bedtime. Miralax 17 Miralax 17 No 1packet Q1D Miralax 17 [facility] gram oral gram oral (s) gram oral Medical powder powder powder packet Take packet Take packet 1 packet 1 packet Take 1 every day every day packet by oral by oral every day route. route. by oral route. nystatin nystatin No nystatin [facility] via 100,000 100,000 100,000 Medica l unit/gram unit/gram unit/gram topical topical topical ointment ointment ointment risperidone risperidone No risperidon [facility] 1 mg tablet 1 mg tablet e 1 mg Medical Take 1 Take 1 tablet tablet tablet Take 1 every day every day tablet by oral by oral every day route for route for by oral 30 days. 30 days. route for 30 days. sertraline sertraline No sertraline [facility] 100 mg 100 mg 100 mg Medical tablet Take tablet Take tablet 1 tablet 1 tablet Take 1 every day every day tablet by oral by oral every day route. route. by oral route. Spiriva Spiriva No Spiriva [facility] with with with Medical HandiHaler HandiHaler HandiHaler 18 mcg and 18 mcg and 18 mcg and inhalation inhalation inhalation capsules capsules capsules Inhale 1 Inhale 1 Inhale 1 capsule capsule capsule every day every day every day by by by inhalation inhalation inhalation route for route for route for 30 days. 30 days. 30 days. Tradjenta 5 Tradjenta 5 No Tradjenta [facility] mg tablet mg tablet 5 mg Medic al Take 1 Take 1 tablet tablet tablet Take 1 every day every day tablet by oral by oral every day route for route for by oral 30 days. 30 days. route for 30 days. tramadol 50 tramadol 50 No tramadol [facility] mg tablet mg tablet 50 mg Medi lawrence Take 1 Take 1 tablet tablet tablet Take 1 every 8 every 8 tablet hours by hours by every 8 oral route oral route hours by as needed as needed oral route for 30 for 30 as needed days. days. for 30 days. Triumeq 600 Triumeq 600 No 1 Q1D Triumeq [facility] mg-50 mg-50 600 mg-50 Medical mg-300 mg mg-300 mg mg-300 mg tablet Take tablet Take tablet 1 tablet 1 tablet Take 1 every day every day tablet by oral by oral every day route. route. by oral route. Tylenol Tylenol No 1 BID Tylenol [facility] Extra Extra Extra Medical Strength Strength Strength 500 mg 500 mg 500 mg tablet Take tablet Take tablet 1 tablet 1 tablet Take 1 twice a day twice a day tablet by oral by oral twice a route. route. day by oral route. zinc zinc No 1capsul Q1D zinc [facility] sulfate 50 sulfate 50 e(s) sulfate 50 Medical mg zinc mg zinc mg zinc (220 mg) (220 mg) (220 mg) capsule capsule capsule Take 1 Take 1 Take 1 capsule capsule capsule every day every day every day by oral by oral by oral route. route. route. Advair Advair No Advair [facility] Diskus 500 Diskus 500 Diskus 500 Medical mcg-50 mcg-50 mcg-50 mcg/dose mcg/dose mcg/dose powder for powder for powder for inhalation inhalation inhalation Inhale 1 Inhale 1 Inhale 1 puff twice puff twice puff twice a day by a day by a day by inhalation inhalation inhalation route for route for route for 30 days. 30 days. 30 days. Artificial Artificial No 1applic Q1D Artificial [facility](s Eye Medical Lubricant Lubricant ) Lubricant 83 %-15 % 83 %-15 % 83 %-15 % ointment ointment ointment Apply 1 Apply 1 Apply 1 application application applicatio every day every day n every by by day by ophthalmic ophthalmic ophthalmic route. route. route. aspirin 81 aspirin 81 No 1 Q1D aspirin 81 [facility] mg mg mg Medical tablet,dago tablet,dago tablet,del yed release yed release ayed Take 1 Take 1 release tablet tablet Take 1 every day every day tablet by oral by oral every day route. route. by oral route. atorvastati atorvastati No atorvastat [facility] n 40 mg n 40 mg in 40 mg Medic al tablet Take tablet Take tablet 1 tablet 1 tablet Take 1 every day every day tablet by oral by oral every day route. route. by oral route. benztropine benztropine No benztropin [facility] 1 mg tablet 1 mg tablet e 1 mg Medical Take 1 Take 1 tablet tablet tablet Take 1 every day every day tablet by oral by oral every day route for route for by oral 30 days. 30 days. route for 30 days. Biofreeze Biofreeze No Biofreeze [facility] (menthol) 5 (menthol) 5 (menthol) Medical % topical % topical 5 % gel every 4 gel every 4 topical hours as hours as gel every needed needed 4 hours as needed buspirone 5 buspirone 5 No buspirone [facility] mg tablet mg tablet 5 mg Medic al Take 1 Take 1 tablet tablet 3 tablet 3 Take 1 times a day times a day tablet 3 by oral by oral times a route for route for day by 30 days. 30 days. oral route for 30 days. diclofenac diclofenac No diclofenac [facility] 1 % topical 1 % topical 1 % M edical gel gel topical gel divalproex divalproex No divalproex [facility] 125 mg 125 mg 125 mg Medical capsule,del capsule,del capsule,de ayed ayed layed release release release sprinkle sprinkle sprinkle Take 2 Take 2 Take 2 capsules 3 capsules 3 capsules 3 times a day times a day times a by oral by oral day by route for route for oral route 30 days. 30 days. for 30 days. ergocalcife ergocalcife No ergocalcif [facility] rol rol black Medical (vitamin (vitamin (vitamin D2) 1,250 D2) 1,250 D2) 1,250 mcg (50,000 mcg (50,000 mcg unit) unit) (50,000 capsule capsule unit) capsule gabapentin gabapentin No gabapentin [facility] 300 mg 300 mg 300 mg Medical capsule capsule capsule Take 1 Take 1 Take 1 capsule 3 capsule 3 capsule 3 times a day times a day times a by oral by oral day by route for route for oral route 30 days. 30 days. for 30 days. GlucaGen GlucaGen No GlucaGen [facility] via HypoKit 1 HypoKit 1 HypoKit 1 Medical mg mg mg Injection Injection Injection as needd as needd as needd PRN PRN PRN ipratropium ipratropium No ipratropiu [facility] 0.5 0.5 m 0.5 Medical mg-albutero mg-albutero mg-albuter l 3 mg (2.5 l 3 mg (2.5 ol 3 mg mg base)/3 mg base)/3 (2.5 mg mL mL base)/3 mL nebulizatio nebulizatio nebulizati n soln n soln on soln Inhale 3 mL Inhale 3 mL Inhale 3 every 6 every 6 mL every 6 hours by hours by hours by inhalation inhalation inhalation route as route as route as needed for needed for needed for 7 days. 7 days. 7 days. Lantus Lantus No Lantus [facility] U-100 U-100 U-100 Medical Insulin 100 Insulin 100 Insulin unit/mL unit/mL 100 subcutaneou subcutaneou unit/mL s solution s solution subcutaneo Inject 24 Inject 24 us units every units every solution day by day by Inject 24 sub-q route sub-q route units at bedtime at bedtime every day for 28 for 28 by sub-q days. days. route at bedtime for 28 days. melatonin 5 melatonin 5 No 1capsul Q1D melatonin [facility] mg capsule mg capsule e(s) 5 mg Med ical Take 1 Take 1 capsule capsule capsule Take 1 every day every day capsule by oral by oral every day route at route at by oral bedtime. bedtime. route at bedtime. Miralax 17 Miralax 17 No 1packet Q1D Miralax 17 [facility] gram oral gram oral (s) gram oral Medical powder powder powder packet Take packet Take packet 1 packet 1 packet Take 1 every day every day packet by oral by oral every day route. route. by oral route. nystatin nystatin No nystatin [facility] via 100,000 100,000 100,000 Medica l unit/gram unit/gram unit/gram topical topical topical ointment ointment ointment risperidone risperidone No risperidon [facility] 1 mg tablet 1 mg tablet e 1 mg Medical Take 1 Take 1 tablet tablet tablet Take 1 every day every day tablet by oral by oral every day route for route for by oral 30 days. 30 days. route for 30 days. sertraline sertraline No sertraline [facility] 100 mg 100 mg 100 mg Medical tablet Take tablet Take tablet 1 tablet 1 tablet Take 1 every day every day tablet by oral by oral every day route. route. by oral route. Spiriva Spiriva No Spiriva [facility] with with with Medical HandiHaler HandiHaler HandiHaler 18 mcg and 18 mcg and 18 mcg and inhalation inhalation inhalation capsules capsules capsules Inhale 1 Inhale 1 Inhale 1 capsule capsule capsule every day every day every day by by by inhalation inhalation inhalation route for route for route for 30 days. 30 days. 30 days. Tradjenta 5 Tradjenta 5 No Tradjenta [facility] mg tablet mg tablet 5 mg Medic al Take 1 Take 1 tablet tablet tablet Take 1 every day every day tablet by oral by oral every day route for route for by oral 30 days. 30 days. route for 30 days. tramadol 50 tramadol 50 No tramadol [facility] mg tablet mg tablet 50 mg Medi lawrence Take 1 Take 1 tablet tablet tablet Take 1 every 8 every 8 tablet hours by hours by every 8 oral route oral route hours by as needed as needed oral route for 30 for 30 as needed days. days. for 30 days. Triumeq 600 Triumeq 600 No 1 Q1D Triumeq [facility] mg-50 mg-50 600 mg-50 Medical mg-300 mg mg-300 mg mg-300 mg tablet Take tablet Take tablet 1 tablet 1 tablet Take 1 every day every day tablet by oral by oral every day route. route. by oral route. Tylenol Tylenol No 1 BID Tylenol [facility] Extra Extra Extra Medical Strength Strength Strength 500 mg 500 mg 500 mg tablet Take tablet Take tablet 1 tablet 1 tablet Take 1 twice a day twice a day tablet by oral by oral twice a route. route. day by oral route. zinc zinc No 1capsul Q1D zinc [facility] sulfate 50 sulfate 50 e(s) sulfate 50 Medical mg zinc mg zinc mg zinc (220 mg) (220 mg) (220 mg) capsule capsule capsule Take 1 Take 1 Take 1 capsule capsule capsule every day every day every day by oral by oral by oral route. route. route. Advair Advair No Advair [facility] Diskus 500 Diskus 500 Diskus 500 Medical mcg-50 mcg-50 mcg-50 mcg/dose mcg/dose mcg/dose powder for powder for powder for inhalation inhalation inhalation Inhale 1 Inhale 1 Inhale 1 puff twice puff twice puff twice a day by a day by a day by inhalation inhalation inhalation route for route for route for 30 days. 30 days. 30 days. Artificial Artificial No 1applic Q1D Artificial [facility](s Eye Medical Lubricant Lubricant ) Lubricant 83 %-15 % 83 %-15 % 83 %-15 % ointment ointment ointment Apply 1 Apply 1 Apply 1 application application applicatio every day every day n every by by day by ophthalmic ophthalmic ophthalmic route. route. route. aspirin 81 aspirin 81 No 1 Q1D aspirin 81 [facility] mg mg mg Medical tablet,dago tablet,dago tablet,del yed release yed release ayed Take 1 Take 1 release tablet tablet Take 1 every day every day tablet by oral by oral every day route. route. by oral route. atorvastati atorvastati No atorvastat [facility] n 40 mg n 40 mg in 40 mg Medic al tablet Take tablet Take tablet 1 tablet 1 tablet Take 1 every day every day tablet by oral by oral every day route. route. by oral route. benztropine benztropine No benztropin [facility] 1 mg tablet 1 mg tablet e 1 mg Medical Take 1 Take 1 tablet tablet tablet Take 1 every day every day tablet by oral by oral every day route for route for by oral 30 days. 30 days. route for 30 days. Biofreeze Biofreeze No Biofreeze [facility] (menthol) 5 (menthol) 5 (menthol) Medical % topical % topical 5 % gel every 4 gel every 4 topical hours as hours as gel every needed needed 4 hours as needed buspirone 5 buspirone 5 No buspirone [facility] mg tablet mg tablet 5 mg Medic al Take 1 Take 1 tablet tablet 3 tablet 3 Take 1 times a day times a day tablet 3 by oral by oral times a route for route for day by 30 days. 30 days. oral route for 30 days. diclofenac diclofenac No diclofenac [facility] 1 % topical 1 % topical 1 % M edical gel gel topical gel divalproex divalproex No divalproex [facility] 125 mg 125 mg 125 mg Medical capsule,del capsule,del capsule,de ayed ayed layed release release release sprinkle sprinkle sprinkle Take 2 Take 2 Take 2 capsules 3 capsules 3 capsules 3 times a day times a day times a by oral by oral day by route for route for oral route 30 days. 30 days. for 30 days. ergocalcife ergocalcife No ergocalcif [facility] rol rol black [facility] (vitamin (vitamin (vitamin D2) 1,250 D2) 1,250 D2) 1,250 mcg (50,000 mcg (50,000 mcg unit) unit) (50,000 capsule capsule unit) capsule gabapentin gabapentin No gabapentin [facility] 300 mg 300 mg 300 mg Medical capsule capsule capsule Take 1 Take 1 Take 1 capsule 3 capsule 3 capsule 3 times a day times a day times a by oral by oral day by route for route for oral route 30 days. 30 days. for 30 days. GlucaGen GlucaGen No GlucaGen [facility] via HypoKit 1 HypoKit 1 HypoKit 1 Medical mg mg mg Injection Injection Injection as needd as needd as needd PRN PRN PRN ipratropium ipratropium No ipratropiu [facility] 0.5 0.5 m 0.5 Medical mg-albutero mg-albutero mg-albuter l 3 mg (2.5 l 3 mg (2.5 ol 3 mg mg base)/3 mg base)/3 (2.5 mg mL mL base)/3 mL nebulizatio nebulizatio nebulizati n soln n soln on soln Inhale 3 mL Inhale 3 mL Inhale 3 every 6 every 6 mL every 6 hours by hours by hours by inhalation inhalation inhalation route as route as route as needed for needed for needed for 7 days. 7 days. 7 days. Lantus Lantus No Lantus [facility] U-100 U-100 U-100 Medical Insulin 100 Insulin 100 Insulin unit/mL unit/mL 100 subcutaneou subcutaneou unit/mL s solution s solution subcutaneo Inject 24 Inject 24 us units every units every solution day by day by Inject 24 sub-q route sub-q route units at bedtime at bedtime every day for 28 for 28 by sub-q days. days. route at bedtime for 28 days. melatonin 5 melatonin 5 No 1capsul Q1D melatonin [facility] mg capsule mg capsule e(s) 5 mg Med ical Take 1 Take 1 capsule capsule capsule Take 1 every day every day capsule by oral by oral every day route at route at by oral bedtime. bedtime. route at bedtime. Miralax 17 Miralax 17 No 1packet Q1D Miralax 17 [facility] gram oral gram oral (s) gram oral Medical powder powder powder packet Take packet Take packet 1 packet 1 packet Take 1 every day every day packet by oral by oral every day route. route. by oral route. nystatin nystatin No nystatin [facility] via 100,000 100,000 100,000 Medica l unit/gram unit/gram unit/gram topical topical topical ointment ointment ointment risperidone risperidone No risperidon [facility] 1 mg tablet 1 mg tablet e 1 mg Medical Take 1 Take 1 tablet tablet tablet Take 1 every day every day tablet by oral by oral every day route for route for by oral 30 days. 30 days. route for 30 days. sertraline sertraline No sertraline [facility] 100 mg 100 mg 100 mg Medical tablet Take tablet Take tablet 1 tablet 1 tablet Take 1 every day every day tablet by oral by oral every day route. route. by oral route. Spiriva Spiriva No Spiriva [facility] with with with Medical HandiHaler HandiHaler HandiHaler 18 mcg and 18 mcg and 18 mcg and inhalation inhalation inhalation capsules capsules capsules Inhale 1 Inhale 1 Inhale 1 capsule capsule capsule every day every day every day by by by inhalation inhalation inhalation route for route for route for 30 days. 30 days. 30 days. Tradjenta 5 Tradjenta 5 No Tradjenta [facility] mg tablet mg tablet 5 mg Medic al Take 1 Take 1 tablet tablet tablet Take 1 every day every day tablet by oral by oral every day route for route for by oral 30 days. 30 days. route for 30 days. tramadol 50 tramadol 50 No 1 Q8H tramadol [facility] mg tablet mg tablet 50 mg Medi lawrence Take 1 Take 1 tablet tablet tablet Take 1 every 8 every 8 tablet hours by hours by every 8 oral route oral route hours by as needed as needed oral route for 30 for 30 as needed days. days. for 30 days. Triumeq 600 Triumeq 600 No 1 Q1D Triumeq [facility] mg-50 mg-50 600 mg-50 Medical mg-300 mg mg-300 mg mg-300 mg tablet Take tablet Take tablet 1 tablet 1 tablet Take 1 every day every day tablet by oral by oral every day route. route. by oral route. Tylenol Tylenol No 1 BID Tylenol [facility] Extra Extra Extra Medical Strength Strength Strength 500 mg 500 mg 500 mg tablet Take tablet Take tablet 1 tablet 1 tablet Take 1 twice a day twice a day tablet by oral by oral twice a route. route. day by oral route. zinc zinc No 1capsul Q1D zinc [facility] sulfate 50 sulfate 50 e(s) sulfate 50 Medical mg zinc mg zinc mg zinc (220 mg) (220 mg) (220 mg) capsule capsule capsule Take 1 Take 1 Take 1 capsule capsule capsule every day every day every day by oral by oral by oral route. route. route. Vitamin D3 Vitamin D3 Yes [facility] 1 capsule [facility] Depakote Depakote Yes [facility] as Commo n Sprinkles Sprinkles [place] directed [facility] Trileptal Trileptal Yes [facility] 2 tablets [facility] Triumeq Triumeq Yes [facility] [address] [facility] Milk of Milk of Yes [facility] 5 ml as Comm on Magnesia Magnesia Guerrero needed Spi rit [facility] Aspirin Aspirin Yes [facility] [address] [facility] Tramadol Tramadol Yes [facility] 1 tablet [facility] HCl HCl [place] as needed [facility] Butrans Butrans Yes [facility] 1 patch to C ommon [place] skin [facility] Risperdal Risperdal Yes [facility] 1 tablet [facility] Spiriva Spiriva Yes [facility] 1 capsule Co mmon HandiHaler HandiHaler [place] S pirit [facility] Lantus Lantus Yes [facility] as Common [place] directed [facility] Cymbalta Cymbalta Yes [facility] 1 capsule [facility] Fanapt Fanapt Yes [facility] 1 tablet Commo n [facility] Immunizations Ordered Immunization Filled Immunization Date Status Commen ts Source Name Name influenza, influenza, 2022-09-11 Completed [facility] injectable, injectable, 00:00:00 quadrivalent quadrivalent influenza, influenza, 2022-09-11 Completed [facility] injectable, injectable, 00:00:00 quadrivalent quadrivalent influenza, influenza, 2022-09-11 Completed [facility] injectable, injectable, 00:00:00 quadrivalent quadrivalent influenza, influenza, 2022-09-11 Completed [facility] injectable, injectable, 00:00:00 quadrivalent quadrivalent influenza, influenza, 2022-09-11 Completed [facility] injectable, injectable, 00:00:00 quadrivalent quadrivalent influenza, influenza, 2022-09-11 Completed [facility] injectable, injectable, 00:00:00 quadrivalent quadrivalent COVID-19 (SARS-COV-2) COVID-19 2021-11-17 Completed [facility] via Medical vaccine, unspecified (SARS-COV-2) 00:00:00 vaccine, unspecified COVID-19 (SARS-COV-2) COVID-19 2021-11-17 Completed [facility] via Medical vaccine, unspecified (SARS-COV-2) 00:00:00 vaccine, unspecified COVID-19 (SARS-COV-2) COVID-19 2021-11-17 Completed [facility] via Medical vaccine, unspecified (SARS-COV-2) 00:00:00 vaccine, unspecified COVID-19 (SARS-COV-2) COVID-19 2021-11-17 Completed [facility] via Medical vaccine, unspecified (SARS-COV-2) 00:00:00 vaccine, unspecified COVID-19 (SARS-COV-2) COVID-19 2021-11-17 Completed [facility] via Medical vaccine, unspecified (SARS-COV-2) 00:00:00 vaccine, unspecified COVID-19 (SARS-COV-2) COVID-19 2021-11-17 Completed [facility] via Medical vaccine, unspecified (SARS-COV-2) 00:00:00 vaccine, unspecified COVID-19 (SARS-COV-2) COVID-19 2021-11-17 Completed [facility] via Medical vaccine, unspecified (SARS-COV-2) 00:00:00 vaccine, unspecified COVID-19 (SARS-COV-2) COVID-19 2021-11-17 Completed [facility] via Medical vaccine, unspecified (SARS-COV-2) 00:00:00 vaccine, unspecified COVID-19 (SARS-COV-2) COVID-19 2021-11-17 Completed [facility] via Medical vaccine, unspecified (SARS-COV-2) 00:00:00 vaccine, unspecified COVID-19 (SARS-COV-2) COVID-19 2021-11-17 Completed [facility] via Medical vaccine, unspecified (SARS-COV-2) 00:00:00 vaccine, unspecified COVID-19 (SARS-COV-2) COVID-19 2021-11-17 Completed [facility] via Medical vaccine, unspecified (SARS-COV-2) 00:00:00 vaccine, unspecified COVID-19 (SARS-COV-2) COVID-19 2021-11-17 Completed [facility] via Medical vaccine, unspecified (SARS-COV-2) 00:00:00 vaccine, unspecified COVID-19 (SARS-COV-2) COVID-19 2021-11-17 Completed [facility] via Medical vaccine, unspecified (SARS-COV-2) 00:00:00 vaccine, unspecified COVID-19 (SARS-COV-2) COVID-19 2021-11-17 Completed [facility] via Medical vaccine, unspecified (SARS-COV-2) 00:00:00 vaccine, unspecified COVID-19 (SARS-COV-2) COVID-19 2021-11-17 Completed [facility] via Medical vaccine, unspecified (SARS-COV-2) 00:00:00 vaccine, unspecified COVID-19 (SARS-COV-2) COVID-19 2021-11-17 Completed [facility] via Medical vaccine, unspecified (SARS-COV-2) 00:00:00 vaccine, unspecified COVID-19 (SARS-COV-2) COVID-19 2021-11-17 Completed [facility] via Medical vaccine, unspecified (SARS-COV-2) 00:00:00 vaccine, unspecified COVID-19 (SARS-COV-2) COVID-19 2021-11-17 Completed [facility] via Medical vaccine, unspecified (SARS-COV-2) 00:00:00 vaccine, unspecified COVID-19 (SARS-COV-2) COVID-19 2021-11-17 Completed [facility] via Medical vaccine, unspecified (SARS-COV-2) 00:00:00 vaccine, unspecified COVID-19 (SARS-COV-2) COVID-19 2021-11-17 Completed [facility] via Medical vaccine, unspecified (SARS-COV-2) 00:00:00 vaccine, unspecified COVID-19 (SARS-COV-2) COVID-19 2021-11-17 Completed [facility] via Medical vaccine, unspecified (SARS-COV-2) 00:00:00 vaccine, unspecified COVID-19 (SARS-COV-2) COVID-19 2021-11-17 Completed [facility] via Medical vaccine, unspecified (SARS-COV-2) 00:00:00 vaccine, unspecified COVID-19 (SARS-COV-2) COVID-19 2021-11-17 Completed [facility] via Medical vaccine, unspecified (SARS-COV-2) 00:00:00 vaccine, unspecified COVID-19 (SARS-COV-2) COVID-19 2021-11-17 Completed [facility] via Medical vaccine, unspecified (SARS-COV-2) 00:00:00 vaccine, unspecified COVID-19 (SARS-COV-2) COVID-19 2021-11-17 Completed [facility] via Medical vaccine, unspecified (SARS-COV-2) 00:00:00 vaccine, unspecified COVID-19 (SARS-COV-2) COVID-19 2021-11-17 Completed [facility] via Medical vaccine, unspecified (SARS-COV-2) 00:00:00 vaccine, unspecified COVID-19 (SARS-COV-2) COVID-19 2021-11-17 Completed [facility] via Medical vaccine, unspecified (SARS-COV-2) 00:00:00 vaccine, unspecified COVID-19 (SARS-COV-2) COVID-19 2021-11-17 Completed [facility] via Medical vaccine, unspecified (SARS-COV-2) 00:00:00 vaccine, unspecified COVID-19 (SARS-COV-2) COVID-19 2021-11-17 Completed [facility] via Medical vaccine, unspecified (SARS-COV-2) 00:00:00 vaccine, unspecified COVID-19 (SARS-COV-2) COVID-19 2020-12-31 Completed [facility] via Medical vaccine, unspecified (SARS-COV-2) 00:00:00 vaccine, unspecified COVID-19 (SARS-COV-2) COVID-19 2020-12-31 Completed [facility] via Medical vaccine, unspecified (SARS-COV-2) 00:00:00 vaccine, unspecified COVID-19 (SARS-COV-2) COVID-19 2020-12-31 Completed [facility] via Medical vaccine, unspecified (SARS-COV-2) 00:00:00 vaccine, unspecified COVID-19 (SARS-COV-2) COVID-19 2020-12-31 Completed [facility] via Medical vaccine, unspecified (SARS-COV-2) 00:00:00 vaccine, unspecified COVID-19 (SARS-COV-2) COVID-19 2020-12-31 Completed [facility] via Medical vaccine, unspecified (SARS-COV-2) 00:00:00 vaccine, unspecified COVID-19 (SARS-COV-2) COVID-19 2020-12-31 Completed [facility] via Medical vaccine, unspecified (SARS-COV-2) 00:00:00 vaccine, unspecified COVID-19 (SARS-COV-2) COVID-19 2020-12-31 Completed [facility] via Medical vaccine, unspecified (SARS-COV-2) 00:00:00 vaccine, unspecified COVID-19 (SARS-COV-2) COVID-19 2020-12-31 Completed [facility] via Medical vaccine, unspecified (SARS-COV-2) 00:00:00 vaccine, unspecified COVID-19 (SARS-COV-2) COVID-19 2020-12-31 Completed [facility] via Medical vaccine, unspecified (SARS-COV-2) 00:00:00 vaccine, unspecified COVID-19 (SARS-COV-2) COVID-19 2020-12-31 Completed [facility] via Medical vaccine, unspecified (SARS-COV-2) 00:00:00 vaccine, unspecified COVID-19 (SARS-COV-2) COVID-19 2020-12-31 Completed [facility] via Medical vaccine, unspecified (SARS-COV-2) 00:00:00 vaccine, unspecified COVID-19 (SARS-COV-2) COVID-19 2020-12-31 Completed [facility] via Medical vaccine, unspecified (SARS-COV-2) 00:00:00 vaccine, unspecified COVID-19 (SARS-COV-2) COVID-19 2020-12-31 Completed [facility] via Medical vaccine, unspecified (SARS-COV-2) 00:00:00 vaccine, unspecified COVID-19 (SARS-COV-2) COVID-19 2020-12-31 Completed [facility] via Medical vaccine, unspecified (SARS-COV-2) 00:00:00 vaccine, unspecified COVID-19 (SARS-COV-2) COVID-19 2020-12-31 Completed [facility] via Medical vaccine, unspecified (SARS-COV-2) 00:00:00 vaccine, unspecified COVID-19 (SARS-COV-2) COVID-19 2020-12-31 Completed [facility] via Medical vaccine, unspecified (SARS-COV-2) 00:00:00 vaccine, unspecified COVID-19 (SARS-COV-2) COVID-19 2020-12-31 Completed [facility] via Medical vaccine, unspecified (SARS-COV-2) 00:00:00 vaccine, unspecified COVID-19 (SARS-COV-2) COVID-19 2020-12-31 Completed [facility] via Medical vaccine, unspecified (SARS-COV-2) 00:00:00 vaccine, unspecified COVID-19 (SARS-COV-2) COVID-19 2020-12-31 Completed [facility] via Medical vaccine, unspecified (SARS-COV-2) 00:00:00 vaccine, unspecified COVID-19 (SARS-COV-2) COVID-19 2020-12-31 Completed [facility] via Medical vaccine, unspecified (SARS-COV-2) 00:00:00 vaccine, unspecified COVID-19 (SARS-COV-2) COVID-19 2020-12-31 Completed [facility] via Medical vaccine, unspecified (SARS-COV-2) 00:00:00 vaccine, unspecified COVID-19 (SARS-COV-2) COVID-19 2020-12-31 Completed [facility] via Medical vaccine, unspecified (SARS-COV-2) 00:00:00 vaccine, unspecified COVID-19 (SARS-COV-2) COVID-19 2020-12-31 Completed [facility] via Medical vaccine, unspecified (SARS-COV-2) 00:00:00 vaccine, unspecified COVID-19 (SARS-COV-2) COVID-19 2020-12-31 Completed [facility] via Medical vaccine, unspecified (SARS-COV-2) 00:00:00 vaccine, unspecified COVID-19 (SARS-COV-2) COVID-19 2020-12-31 Completed [facility] via Medical vaccine, unspecified (SARS-COV-2) 00:00:00 vaccine, unspecified COVID-19 (SARS-COV-2) COVID-19 2020-12-31 Completed [facility] via Medical vaccine, unspecified (SARS-COV-2) 00:00:00 vaccine, unspecified COVID-19 (SARS-COV-2) COVID-19 2020-12-31 Completed [facility] via Medical vaccine, unspecified (SARS-COV-2) 00:00:00 vaccine, unspecified COVID-19 (SARS-COV-2) COVID-19 2020-12-31 Completed [facility] via Medical vaccine, unspecified (SARS-COV-2) 00:00:00 vaccine, unspecified COVID-19 (SARS-COV-2) COVID-19 2020-12-31 Completed [facility] via Medical vaccine, unspecified (SARS-COV-2) 00:00:00 vaccine, unspecified COVID-19 (SARS-COV-2) COVID-19 2020-12-14 Completed [facility] via Medical vaccine, unspecified (SARS-COV-2) 00:00:00 vaccine, unspecified COVID-19 (SARS-COV-2) COVID-19 2020-12-14 Completed [facility] via Medical vaccine, unspecified (SARS-COV-2) 00:00:00 vaccine, unspecified COVID-19 (SARS-COV-2) COVID-19 2020-12-14 Completed [facility] via Medical vaccine, unspecified (SARS-COV-2) 00:00:00 vaccine, unspecified COVID-19 (SARS-COV-2) COVID-19 2020-12-14 Completed [facility] via Medical vaccine, unspecified (SARS-COV-2) 00:00:00 vaccine, unspecified COVID-19 (SARS-COV-2) COVID-19 2020-12-14 Completed [facility] via Medical vaccine, unspecified (SARS-COV-2) 00:00:00 vaccine, unspecified COVID-19 (SARS-COV-2) COVID-19 2020-12-14 Completed [facility] via Medical vaccine, unspecified (SARS-COV-2) 00:00:00 vaccine, unspecified COVID-19 (SARS-COV-2) COVID-19 2020-12-14 Completed [facility] via Medical vaccine, unspecified (SARS-COV-2) 00:00:00 vaccine, unspecified COVID-19 (SARS-COV-2) COVID-19 2020-12-14 Completed [facility] via Medical vaccine, unspecified (SARS-COV-2) 00:00:00 vaccine, unspecified COVID-19 (SARS-COV-2) COVID-19 2020-12-14 Completed [facility] via Medical vaccine, unspecified (SARS-COV-2) 00:00:00 vaccine, unspecified COVID-19 (SARS-COV-2) COVID-19 2020-12-14 Completed [facility] via Medical vaccine, unspecified (SARS-COV-2) 00:00:00 vaccine, unspecified COVID-19 (SARS-COV-2) COVID-19 2020-12-14 Completed [facility] via Medical vaccine, unspecified (SARS-COV-2) 00:00:00 vaccine, unspecified COVID-19 (SARS-COV-2) COVID-19 2020-12-14 Completed [facility] via Medical vaccine, unspecified (SARS-COV-2) 00:00:00 vaccine, unspecified COVID-19 (SARS-COV-2) COVID-19 2020-12-14 Completed [facility] via Medical vaccine, unspecified (SARS-COV-2) 00:00:00 vaccine, unspecified COVID-19 (SARS-COV-2) COVID-19 2020-12-14 Completed [facility] via Medical vaccine, unspecified (SARS-COV-2) 00:00:00 vaccine, unspecified COVID-19 (SARS-COV-2) COVID-19 2020-12-14 Completed [facility] via Medical vaccine, unspecified (SARS-COV-2) 00:00:00 vaccine, unspecified COVID-19 (SARS-COV-2) COVID-19 2020-12-14 Completed [facility] via Medical vaccine, unspecified (SARS-COV-2) 00:00:00 vaccine, unspecified COVID-19 (SARS-COV-2) COVID-19 2020-12-14 Completed [facility], unspecified (SARS-COV-2) 00:00:00 vaccine, unspecified COVID-19 (SARS-COV-2) COVID-19 2020-12-14 Completed [facility], unspecified (SARS-COV-2) 00:00:00 vaccine, unspecified COVID-19 (SARS-COV-2) COVID-19 2020-12-14 Completed [facility], unspecified (SARS-COV-2) 00:00:00 vaccine, unspecified COVID-19 (SARS-COV-2) COVID-19 2020-12-14 Completed [facility], unspecified (SARS-COV-2) 00:00:00 vaccine, unspecified COVID-19 (SARS-COV-2) COVID-19 2020-12-14 Completed [facility], unspecified (SARS-COV-2) 00:00:00 vaccine, unspecified COVID-19 (SARS-COV-2) COVID-19 2020-12-14 Completed [facility], unspecified (SARS-COV-2) 00:00:00 vaccine, unspecified COVID-19 (SARS-COV-2) COVID-19 2020-12-14 Completed [facility], unspecified (SARS-COV-2) 00:00:00 vaccine, unspecified COVID-19 (SARS-COV-2) COVID-19 2020-12-14 Completed [facility], unspecified (SARS-COV-2) 00:00:00 vaccine, unspecified COVID-19 (SARS-COV-2) COVID-19 2020-12-14 Completed [facility], unspecified (SARS-COV-2) 00:00:00 vaccine, unspecified COVID-19 (SARS-COV-2) COVID-19 2020-12-14 Completed [facility], unspecified (SARS-COV-2) 00:00:00 vaccine, unspecified COVID-19 (SARS-COV-2) COVID-19 2020-12-14 Completed [facility], unspecified (SARS-COV-2) 00:00:00 vaccine, unspecified COVID-19 (SARS-COV-2) COVID-19 2020-12-14 Completed [facility], unspecified (SARS-COV-2) 00:00:00 vaccine, unspecified COVID-19 (SARS-COV-2) COVID-19 2020-12-14 Completed [facility], unspecified (SARS-COV-2) 00:00:00 vaccine, unspecified influenza, influenza, 2020-09-09 Completed [facility] unspecified unspecified 00:00:00 formulation formulation influenza, influenza, 2020-09-09 Completed [facility] unspecified unspecified 00:00:00 formulation formulation influenza, influenza, 2020-09-09 Completed [facility] unspecified unspecified 00:00:00 formulation formulation influenza, influenza, 2020-09-09 Completed [facility] unspecified unspecified 00:00:00 formulation formulation influenza, influenza, 2020-09-09 Completed [facility] unspecified unspecified 00:00:00 formulation formulation influenza, influenza, 2020-09-09 Completed [facility] unspecified unspecified 00:00:00 formulation formulation influenza, influenza, 2020-09-09 Completed [facility] unspecified unspecified 00:00:00 formulation formulation influenza, influenza, 2020-09-09 Completed [facility] unspecified unspecified 00:00:00 formulation formulation influenza, influenza, 2020-09-09 Completed [facility] unspecified unspecified 00:00:00 formulation formulation influenza, influenza, 2020-09-09 Completed [facility] unspecified unspecified 00:00:00 formulation formulation influenza, influenza, 2020-09-09 Completed [facility] unspecified unspecified 00:00:00 formulation formulation influenza, influenza, 2020-09-09 Completed [facility] unspecified unspecified 00:00:00 formulation formulation influenza, influenza, 2020-09-09 Completed [facility] unspecified unspecified 00:00:00 formulation formulation influenza, influenza, 2020-09-09 Completed [facility] unspecified unspecified 00:00:00 formulation formulation influenza, influenza, 2020-09-09 Completed [facility] unspecified unspecified 00:00:00 formulation formulation influenza, influenza, 2020-09-09 Completed [facility] unspecified unspecified 00:00:00 formulation formulation influenza, influenza, 2020-09-09 Completed [facility] unspecified unspecified 00:00:00 formulation formulation influenza, influenza, 2020-09-09 Completed [facility] unspecified unspecified 00:00:00 formulation formulation influenza, influenza, 2020-09-09 Completed [facility] unspecified unspecified 00:00:00 formulation formulation influenza, influenza, 2020-09-09 Completed [facility] unspecified unspecified 00:00:00 formulation formulation influenza, influenza, 2020-09-09 Completed [facility] unspecified unspecified 00:00:00 formulation formulation influenza, influenza, 2020-09-09 Completed [facility] unspecified unspecified 00:00:00 formulation formulation influenza, influenza, 2020-09-09 Completed [facility] unspecified unspecified 00:00:00 formulation formulation influenza, influenza, 2020-09-09 Completed [facility] unspecified unspecified 00:00:00 formulation formulation influenza, influenza, 2020-09-09 Completed [facility] unspecified unspecified 00:00:00 formulation formulation influenza, influenza, 2020-09-09 Completed [facility] unspecified unspecified 00:00:00 formulation formulation influenza, influenza, 2020-09-09 Completed [facility] unspecified unspecified 00:00:00 formulation formulation influenza, influenza, 2020-09-09 Completed [facility] unspecified unspecified 00:00:00 formulation formulation influenza, influenza, 2020-09-09 Completed [facility] unspecified unspecified 00:00:00 formulation formulation influenza, 2020-09-09 [facility]pleted [facility] influenza, influenza, 2019-09-28 Completed [facility] unspecified unspecified 00:00:00 formulation formulation influenza, influenza, 2019-09-28 Completed [facility] unspecified unspecified 00:00:00 formulation formulation influenza, influenza, 2019-09-28 Completed [facility] unspecified unspecified 00:00:00 formulation formulation influenza, influenza, 2019-09-28 Completed [facility] unspecified unspecified 00:00:00 formulation formulation influenza, influenza, 2019-09-28 Completed [facility] unspecified unspecified 00:00:00 formulation formulation influenza, influenza, 2019-09-28 Completed [facility] unspecified unspecified 00:00:00 formulation formulation influenza, influenza, 2019-09-28 Completed [facility] unspecified unspecified 00:00:00 formulation formulation influenza, influenza, 2019-09-28 Completed [facility] unspecified unspecified 00:00:00 formulation formulation influenza, influenza, 2019-09-28 Completed [facility] unspecified unspecified 00:00:00 formulation formulation influenza, influenza, 2019-09-28 Completed [facility] unspecified unspecified 00:00:00 formulation formulation influenza, influenza, 2019-09-28 Completed [facility] unspecified unspecified 00:00:00 formulation formulation influenza, influenza, 2019-09-28 Completed [facility] unspecified unspecified 00:00:00 formulation formulation influenza, influenza, 2019-09-28 Completed [facility] unspecified unspecified 00:00:00 formulation formulation influenza, influenza, 2019-09-28 Completed [facility] unspecified unspecified 00:00:00 formulation formulation influenza, influenza, 2019-09-28 Completed [facility] unspecified unspecified 00:00:00 formulation formulation influenza, influenza, 2019-09-28 Completed [facility] unspecified unspecified 00:00:00 formulation formulation influenza, influenza, 2019-09-28 Completed [facility] unspecified unspecified 00:00:00 formulation formulation influenza, influenza, 2019-09-28 Completed [facility] unspecified unspecified 00:00:00 formulation formulation influenza, influenza, 2019-09-28 Completed [facility] unspecified unspecified 00:00:00 formulation formulation influenza, influenza, 2019-09-28 Completed [facility] unspecified unspecified 00:00:00 formulation formulation influenza, influenza, 2019-09-28 Completed [facility] unspecified unspecified 00:00:00 formulation formulation influenza, influenza, 2019-09-28 Completed [facility] unspecified unspecified 00:00:00 formulation formulation influenza, influenza, 2019-09-28 Completed [facility] unspecified unspecified 00:00:00 formulation formulation influenza, influenza, 2019-09-28 Completed [facility] unspecified unspecified 00:00:00 formulation formulation influenza, influenza, 2019-09-28 Completed [facility] unspecified unspecified 00:00:00 formulation formulation influenza, influenza, 2019-09-28 Completed [facility] unspecified unspecified 00:00:00 formulation formulation influenza, influenza, 2019-09-28 Completed [facility] unspecified unspecified 00:00:00 formulation formulation influenza, influenza, 2019-09-28 Completed [facility] unspecified unspecified 00:00:00 formulation formulation influenza, influenza, 2019-09-28 Completed [facility] unspecified unspecified 00:00:00 formulation formulation influenza, 2019-09-28 Completed [facility] 00:00:00 [facility] flu vax 2017-09-07 Completed [facility] 09:54:47 [facility] influenza, seasonal, influenza, seasonal, 2017-09-07 Completed [facility] injectable injectable 00:00:00 influenza, seasonal, influenza, seasonal, 2017-09-07 Completed [facility] injectable injectable 00:00:00 influenza, seasonal, influenza, seasonal, 2017-09-07 Completed [facility] injectable injectable 00:00:00 influenza, seasonal, influenza, seasonal, 2017-09-07 Completed [facility] injectable injectable 00:00:00 influenza, seasonal, influenza, seasonal, 2017-09-07 Completed [facility] injectable injectable 00:00:00 influenza, seasonal, influenza, seasonal, 2017-09-07 Completed [facility] injectable injectable 00:00:00 influenza, seasonal, influenza, seasonal, 2017-09-07 Completed [facility] injectable injectable 00:00:00 influenza, seasonal, influenza, seasonal, 2017-09-07 Completed [facility] injectable injectable 00:00:00 influenza, seasonal, influenza, seasonal, 2017-09-07 Completed [facility] injectable injectable 00:00:00 influenza, seasonal, influenza, seasonal, 2017-09-07 Completed [facility] injectable injectable 00:00:00 influenza, seasonal, influenza, seasonal, 2017-09-07 Completed [facility] injectable injectable 00:00:00 influenza, seasonal, influenza, seasonal, 2017-09-07 Completed [facility] injectable injectable 00:00:00 influenza, seasonal, influenza, seasonal, 2017-09-07 Completed [facility] injectable injectable 00:00:00 influenza, seasonal, influenza, seasonal, 2017-09-07 Completed [facility] injectable injectable 00:00:00 influenza, seasonal, influenza, seasonal, 2017-09-07 Completed [facility] injectable injectable 00:00:00 influenza, seasonal, influenza, seasonal, 2017-09-07 Completed [facility] injectable injectable 00:00:00 influenza, seasonal, influenza, seasonal, 2017-09-07 Completed [facility] injectable injectable 00:00:00 influenza, seasonal, influenza, seasonal, 2017-09-07 Completed [facility] injectable injectable 00:00:00 influenza, seasonal, influenza, seasonal, 2017-09-07 Completed [facility] injectable injectable 00:00:00 influenza, seasonal, influenza, seasonal, 2017-09-07 Completed [facility] injectable injectable 00:00:00 influenza, seasonal, influenza, seasonal, 2017-09-07 Completed [facility] injectable injectable 00:00:00 influenza, seasonal, influenza, seasonal, 2017-09-07 Completed [facility] injectable injectable 00:00:00 influenza, seasonal, influenza, seasonal, 2017-09-07 Completed [facility] injectable injectable 00:00:00 influenza, seasonal, influenza, seasonal, 2017-09-07 Completed [facility] injectable injectable 00:00:00 influenza, seasonal, influenza, seasonal, 2017-09-07 Completed [facility] injectable injectable 00:00:00 influenza, seasonal, influenza, seasonal, 2017-09-07 Completed [facility] injectable injectable 00:00:00 influenza, seasonal, influenza, seasonal, 2017-09-07 Completed [facility] injectable injectable 00:00:00 influenza, seasonal, influenza, seasonal, 2017-09-07 Completed [facility] injectable injectable 00:00:00 influenza, seasonal, influenza, seasonal, 2017-09-07 Completed [facility] injectable injectable 00:00:00 hepbvax#3 2017-04-19 Completed [facility] 10:19:07 [facility] Hep B, unspecified Hep B, unspecified 2017-04-19 Completed [facility] formulation formulation 00:00:00 Hep B, unspecified Hep B, unspecified 2017-04-19 Completed [facility] formulation formulation 00:00:00 Hep B, unspecified Hep B, unspecified 2017-04-19 Completed [facility] formulation formulation 00:00:00 Hep B, unspecified Hep B, unspecified 2017-04-19 Completed [facility] formulation formulation 00:00:00 Hep B, unspecified Hep B, unspecified 2017-04-19 Completed [facility] formulation formulation 00:00:00 Hep B, unspecified Hep B, unspecified 2017-04-19 Completed [facility] formulation formulation 00:00:00 Hep B, unspecified Hep B, unspecified 2017-04-19 Completed [facility] formulation formulation 00:00:00 Hep B, unspecified Hep B, unspecified 2017-04-19 Completed [facility] formulation formulation 00:00:00 Hep B, unspecified Hep B, unspecified 2017-04-19 Completed [facility] formulation formulation 00:00:00 Hep B, unspecified Hep B, unspecified 2017-04-19 Completed [facility] formulation formulation 00:00:00 Hep B, unspecified Hep B, unspecified 2017-04-19 Completed [facility] formulation formulation 00:00:00 Hep B, unspecified Hep B, unspecified 2017-04-19 Completed [facility] formulation formulation 00:00:00 Hep B, unspecified Hep B, unspecified 2017-04-19 Completed [facility] formulation formulation 00:00:00 Hep B, unspecified Hep B, unspecified 2017-04-19 Completed [facility] formulation formulation 00:00:00 Hep B, unspecified Hep B, unspecified 2017-04-19 Completed [facility] formulation formulation 00:00:00 Hep B, unspecified Hep B, unspecified 2017-04-19 Completed [facility] formulation formulation 00:00:00 Hep B, unspecified Hep B, unspecified 2017-04-19 Completed [facility] formulation formulation 00:00:00 Hep B, unspecified Hep B, unspecified 2017-04-19 Completed [facility] formulation formulation 00:00:00 Hep B, unspecified Hep B, unspecified 2017-04-19 Completed [facility] formulation formulation 00:00:00 Hep B, unspecified Hep B, unspecified 2017-04-19 Completed [facility] formulation formulation 00:00:00 Hep B, unspecified Hep B, unspecified 2017-04-19 Completed [facility] formulation formulation 00:00:00 Hep B, unspecified Hep B, unspecified 2017-04-19 Completed [facility] formulation formulation 00:00:00 Hep B, unspecified Hep B, unspecified 2017-04-19 Completed [facility] formulation formulation 00:00:00 Hep B, unspecified Hep B, unspecified 2017-04-19 Completed [facility] formulation formulation 00:00:00 Hep B, unspecified Hep B, unspecified 2017-04-19 Completed [facility] formulation formulation 00:00:00 Hep B, unspecified Hep B, unspecified 2017-04-19 Completed [facility] formulation formulation 00:00:00 Hep B, unspecified Hep B, unspecified 2017-04-19 Completed [facility] formulation formulation 00:00:00 Hep B, unspecified Hep B, unspecified 2017-04-19 Completed [facility] formulation formulation 00:00:00 Hep B, unspecified Hep B, unspecified 2017-04-19 Completed [facility] formulation formulation 00:00:00 hepbvax#2 2016-11-02 Completed [facility] 08:40:55 [facility] Hep B, unspecified Hep B, unspecified 2016-11-02 Completed [facility] formulation formulation 00:00:00 Hep B, unspecified Hep B, unspecified 2016-11-02 Completed [facility] formulation formulation 00:00:00 Hep B, unspecified Hep B, unspecified 2016-11-02 Completed [facility] formulation formulation 00:00:00 Hep B, unspecified Hep B, unspecified 2016-11-02 Completed [facility] formulation formulation 00:00:00 Hep B, unspecified Hep B, unspecified 2016-11-02 Completed [facility] formulation formulation 00:00:00 Hep B, unspecified Hep B, unspecified 2016-11-02 Completed [facility] formulation formulation 00:00:00 Hep B, unspecified Hep B, unspecified 2016-11-02 Completed [facility] formulation formulation 00:00:00 Hep B, unspecified Hep B, unspecified 2016-11-02 Completed [facility] formulation formulation 00:00:00 Hep B, unspecified Hep B, unspecified 2016-11-02 Completed [facility] formulation formulation 00:00:00 Hep B, unspecified Hep B, unspecified 2016-11-02 Completed [facility] formulation formulation 00:00:00 Hep B, unspecified Hep B, unspecified 2016-11-02 Completed [facility] formulation formulation 00:00:00 Hep B, unspecified Hep B, unspecified 2016-11-02 Completed [facility] formulation formulation 00:00:00 Hep B, unspecified Hep B, unspecified 2016-11-02 Completed [facility] formulation formulation 00:00:00 Hep B, unspecified Hep B, unspecified 2016-11-02 Completed [facility] formulation formulation 00:00:00 Hep B, unspecified Hep B, unspecified 2016-11-02 Completed [facility] formulation formulation 00:00:00 Hep B, unspecified Hep B, unspecified 2016-11-02 Completed [facility] formulation formulation 00:00:00 Hep B, unspecified Hep B, unspecified 2016-11-02 Completed [facility] formulation formulation 00:00:00 Hep B, unspecified Hep B, unspecified 2016-11-02 Completed [facility] formulation formulation 00:00:00 Hep B, unspecified Hep B, unspecified 2016-11-02 Completed [facility] formulation formulation 00:00:00 Hep B, unspecified Hep B, unspecified 2016-11-02 Completed [facility] formulation formulation 00:00:00 Hep B, unspecified Hep B, unspecified 2016-11-02 Completed [facility] formulation formulation 00:00:00 Hep B, unspecified Hep B, unspecified 2016-11-02 Completed [facility] formulation formulation 00:00:00 Hep B, unspecified Hep B, unspecified 2016-11-02 Completed [facility] formulation formulation 00:00:00 Hep B, unspecified Hep B, unspecified 2016-11-02 Completed [facility] formulation formulation 00:00:00 Hep B, unspecified Hep B, unspecified 2016-11-02 Completed [facility] formulation formulation 00:00:00 Hep B, unspecified Hep B, unspecified 2016-11-02 Completed [facility] formulation formulation 00:00:00 Hep B, unspecified Hep B, unspecified 2016-11-02 Completed [facility] formulation formulation 00:00:00 Hep B, unspecified Hep B, unspecified 2016-11-02 Completed [facility] formulation formulation 00:00:00 Hep B, unspecified Hep B, unspecified 2016-11-02 Completed [facility] formulation formulation 00:00:00 flu vax 2016-08-28 Completed [facility] 08:45:22 [facility] influenza, seasonal, influenza, seasonal, 2016-08-28 Completed [facility] injectable injectable 00:00:00 influenza, seasonal, influenza, seasonal, 2016-08-28 Completed [facility] injectable injectable 00:00:00 influenza, seasonal, influenza, seasonal, 2016-08-28 Completed [facility] injectable injectable 00:00:00 influenza, seasonal, influenza, seasonal, 2016-08-28 Completed [facility] injectable injectable 00:00:00 influenza, seasonal, influenza, seasonal, 2016-08-28 Completed [facility] injectable injectable 00:00:00 influenza, seasonal, influenza, seasonal, 2016-08-28 Completed [facility] injectable injectable 00:00:00 influenza, seasonal, influenza, seasonal, 2016-08-28 Completed [facility] injectable injectable 00:00:00 influenza, seasonal, influenza, seasonal, 2016-08-28 Completed [facility] injectable injectable 00:00:00 influenza, seasonal, influenza, seasonal, 2016-08-28 Completed [facility] injectable injectable 00:00:00 influenza, seasonal, influenza, seasonal, 2016-08-28 Completed [facility] injectable injectable 00:00:00 influenza, seasonal, influenza, seasonal, 2016-08-28 Completed [facility] injectable injectable 00:00:00 influenza, seasonal, influenza, seasonal, 2016-08-28 Completed [facility] injectable injectable 00:00:00 influenza, seasonal, influenza, seasonal, 2016-08-28 Completed [facility] injectable injectable 00:00:00 influenza, seasonal, influenza, seasonal, 2016-08-28 Completed [facility] injectable injectable 00:00:00 influenza, seasonal, influenza, seasonal, 2016-08-28 Completed [facility] injectable injectable 00:00:00 influenza, seasonal, influenza, seasonal, 2016-08-28 Completed [facility] injectable injectable 00:00:00 influenza, seasonal, influenza, seasonal, 2016-08-28 Completed [facility] injectable injectable 00:00:00 influenza, seasonal, influenza, seasonal, 2016-08-28 Completed [facility] injectable injectable 00:00:00 influenza, seasonal, influenza, seasonal, 2016-08-28 Completed [facility] injectable injectable 00:00:00 influenza, seasonal, influenza, seasonal, 2016-08-28 Completed [facility] injectable injectable 00:00:00 influenza, seasonal, influenza, seasonal, 2016-08-28 Completed [facility] injectable injectable 00:00:00 influenza, seasonal, influenza, seasonal, 2016-08-28 Completed [facility] injectable injectable 00:00:00 influenza, seasonal, influenza, seasonal, 2016-08-28 Completed [facility] injectable injectable 00:00:00 influenza, seasonal, influenza, seasonal, 2016-08-28 Completed [facility] injectable injectable 00:00:00 influenza, seasonal, influenza, seasonal, 2016-08-28 Completed [facility] injectable injectable 00:00:00 influenza, seasonal, influenza, seasonal, 2016-08-28 Completed [facility] injectable injectable 00:00:00 influenza, seasonal, influenza, seasonal, 2016-08-28 Completed [facility] injectable injectable 00:00:00 influenza, seasonal, influenza, seasonal, 2016-08-28 Completed [facility] injectable injectable 00:00:00 influenza, seasonal, influenza, seasonal, 2016-08-28 Completed [facility] injectable injectable 00:00:00 hepbvax#1 2016-07-07 Completed [facility] 08:32:30 [facility] pneumovax 2016-07-07 Completed [facility] 08:32:30 [facility] Hep B, unspecified Hep B, unspecified 2016-07-07 Completed [facility] formulation formulation 00:00:00 pneumococcal pneumococcal 2016-07-07 Completed [facility] polysaccharide PPV23 polysaccharide PPV23 00:00:00 Hep B, unspecified Hep B, unspecified 2016-07-07 Completed [facility] formulation formulation 00:00:00 pneumococcal pneumococcal 2016-07-07 Completed [facility] polysaccharide PPV23 polysaccharide PPV23 00:00:00 Hep B, unspecified Hep B, unspecified 2016-07-07 Completed [facility] formulation formulation 00:00:00 pneumococcal pneumococcal 2016-07-07 Completed [facility] polysaccharide PPV23 polysaccharide PPV23 00:00:00 Hep B, unspecified Hep B, unspecified 2016-07-07 Completed [facility] formulation formulation 00:00:00 pneumococcal pneumococcal 2016-07-07 Completed [facility] polysaccharide PPV23 polysaccharide PPV23 00:00:00 Hep B, unspecified Hep B, unspecified 2016-07-07 Completed [facility] formulation formulation 00:00:00 pneumococcal pneumococcal 2016-07-07 Completed [facility] polysaccharide PPV23 polysaccharide PPV23 00:00:00 Hep B, unspecified Hep B, unspecified 2016-07-07 Completed [facility] formulation formulation 00:00:00 pneumococcal pneumococcal 2016-07-07 Completed [facility] polysaccharide PPV23 polysaccharide PPV23 00:00:00 Hep B, unspecified Hep B, unspecified 2016-07-07 Completed [facility] formulation formulation 00:00:00 pneumococcal pneumococcal 2016-07-07 Completed [facility] polysaccharide PPV23 polysaccharide PPV23 00:00:00 Hep B, unspecified Hep B, unspecified 2016-07-07 Completed [facility] formulation formulation 00:00:00 pneumococcal pneumococcal 2016-07-07 Completed [facility] polysaccharide PPV23 polysaccharide PPV23 00:00:00 Hep B, unspecified Hep B, unspecified 2016-07-07 Completed [facility] formulation formulation 00:00:00 pneumococcal pneumococcal 2016-07-07 Completed [facility] polysaccharide PPV23 polysaccharide PPV23 00:00:00 Hep B, unspecified Hep B, unspecified 2016-07-07 Completed [facility] formulation formulation 00:00:00 pneumococcal pneumococcal 2016-07-07 Completed [facility] polysaccharide PPV23 polysaccharide PPV23 00:00:00 Hep B, unspecified Hep B, unspecified 2016-07-07 Completed [facility] formulation formulation 00:00:00 pneumococcal pneumococcal 2016-07-07 Completed [facility] polysaccharide PPV23 polysaccharide PPV23 00:00:00 Hep B, unspecified Hep B, unspecified 2016-07-07 Completed [facility] formulation formulation 00:00:00 pneumococcal pneumococcal 2016-07-07 Completed [facility] polysaccharide PPV23 polysaccharide PPV23 00:00:00 Hep B, unspecified Hep B, unspecified 2016-07-07 Completed [facility] formulation formulation 00:00:00 pneumococcal pneumococcal 2016-07-07 Completed [facility] polysaccharide PPV23 polysaccharide PPV23 00:00:00 Hep B, unspecified Hep B, unspecified 2016-07-07 Completed [facility] formulation formulation 00:00:00 pneumococcal pneumococcal 2016-07-07 Completed [facility] polysaccharide PPV23 polysaccharide PPV23 00:00:00 Hep B, unspecified Hep B, unspecified 2016-07-07 Completed [facility] formulation formulation 00:00:00 pneumococcal pneumococcal 2016-07-07 Completed [facility] polysaccharide PPV23 polysaccharide PPV23 00:00:00 Hep B, unspecified Hep B, unspecified 2016-07-07 Completed [facility] formulation formulation 00:00:00 pneumococcal pneumococcal 2016-07-07 Completed [facility] polysaccharide PPV23 polysaccharide PPV23 00:00:00 Hep B, unspecified Hep B, unspecified 2016-07-07 Completed [facility] formulation formulation 00:00:00 pneumococcal pneumococcal 2016-07-07 Completed [facility] polysaccharide PPV23 polysaccharide PPV23 00:00:00 Hep B, unspecified Hep B, unspecified 2016-07-07 Completed [facility] formulation formulation 00:00:00 pneumococcal pneumococcal 2016-07-07 Completed [facility] polysaccharide PPV23 polysaccharide PPV23 00:00:00 Hep B, unspecified Hep B, unspecified 2016-07-07 Completed [facility] formulation formulation 00:00:00 pneumococcal pneumococcal 2016-07-07 Completed [facility] polysaccharide PPV23 polysaccharide PPV23 00:00:00 Hep B, unspecified Hep B, unspecified 2016-07-07 Completed [facility] formulation formulation 00:00:00 pneumococcal pneumococcal 2016-07-07 Completed [facility] polysaccharide PPV23 polysaccharide PPV23 00:00:00 Hep B, unspecified Hep B, unspecified 2016-07-07 Completed [facility] formulation formulation 00:00:00 pneumococcal pneumococcal 2016-07-07 Completed [facility] polysaccharide PPV23 polysaccharide PPV23 00:00:00 Hep B, unspecified Hep B, unspecified 2016-07-07 Completed [facility] formulation formulation 00:00:00 pneumococcal pneumococcal 2016-07-07 Completed [facility] polysaccharide PPV23 polysaccharide PPV23 00:00:00 Hep B, unspecified Hep B, unspecified 2016-07-07 Completed [facility] formulation formulation 00:00:00 pneumococcal pneumococcal 2016-07-07 Completed [facility] polysaccharide PPV23 polysaccharide PPV23 00:00:00 Hep B, unspecified Hep B, unspecified 2016-07-07 Completed [facility] formulation formulation 00:00:00 pneumococcal pneumococcal 2016-07-07 Completed [facility] polysaccharide PPV23 polysaccharide PPV23 00:00:00 Hep B, unspecified Hep B, unspecified 2016-07-07 Completed [facility] formulation formulation 00:00:00 pneumococcal pneumococcal 2016-07-07 Completed [facility] polysaccharide PPV23 polysaccharide PPV23 00:00:00 Hep B, unspecified Hep B, unspecified 2016-07-07 Completed [facility] formulation formulation 00:00:00 pneumococcal pneumococcal 2016-07-07 Completed [facility] polysaccharide PPV23 polysaccharide PPV23 00:00:00 Hep B, unspecified Hep B, unspecified 2016-07-07 Completed [facility] formulation formulation 00:00:00 pneumococcal pneumococcal 2016-07-07 Completed [facility] polysaccharide PPV23 polysaccharide PPV23 00:00:00 Hep B, unspecified Hep B, unspecified 2016-07-07 Completed [facility] formulation formulation 00:00:00 pneumococcal pneumococcal 2016-07-07 Completed [facility] polysaccharide PPV23 polysaccharide PPV23 00:00:00 Hep B, unspecified Hep B, unspecified 2016-07-07 Completed [facility] formulation formulation 00:00:00 pneumococcal pneumococcal 2016-07-07 Completed [facility] polysaccharide PPV23 polysaccharide PPV23 00:00:00 [email or web address] 2015-03-14 Completed [facility] pneumococcal pneumococcal 2015-03-14 Completed [facility] conjugate PCV 13 conjugate PCV 13 00:00:00 pneumococcal pneumococcal 2015-03-14 Completed [facility] conjugate PCV 13 conjugate PCV 13 00:00:00 pneumococcal pneumococcal 2015-03-14 Completed [facility] conjugate PCV 13 conjugate PCV 13 00:00:00 pneumococcal pneumococcal 2015-03-14 Completed [facility] conjugate PCV 13 conjugate PCV 13 00:00:00 pneumococcal pneumococcal 2015-03-14 Completed [facility] conjugate PCV 13 conjugate PCV 13 00:00:00 pneumococcal pneumococcal 2015-03-14 Completed [facility] conjugate PCV 13 conjugate PCV 13 00:00:00 pneumococcal pneumococcal 2015-03-14 Completed [facility] conjugate PCV 13 conjugate PCV 13 00:00:00 pneumococcal pneumococcal 2015-03-14 Completed [facility] conjugate PCV 13 conjugate PCV 13 00:00:00 pneumococcal pneumococcal 2015-03-14 Completed [facility] conjugate PCV 13 conjugate PCV 13 00:00:00 pneumococcal pneumococcal 2015-03-14 Completed [facility] conjugate PCV 13 conjugate PCV 13 00:00:00 pneumococcal pneumococcal 2015-03-14 Completed [facility] conjugate PCV 13 conjugate PCV 13 00:00:00 pneumococcal pneumococcal 2015-03-14 Completed [facility] conjugate PCV 13 conjugate PCV 13 00:00:00 pneumococcal pneumococcal 2015-03-14 Completed [facility] conjugate PCV 13 conjugate PCV 13 00:00:00 pneumococcal pneumococcal 2015-03-14 Completed [facility] conjugate PCV 13 conjugate PCV 13 00:00:00 pneumococcal pneumococcal 2015-03-14 Completed [facility] conjugate PCV 13 conjugate PCV 13 00:00:00 pneumococcal pneumococcal 2015-03-14 Completed [facility] conjugate PCV 13 conjugate PCV 13 00:00:00 pneumococcal pneumococcal 2015-03-14 Completed [facility] conjugate PCV 13 conjugate PCV 13 00:00:00 pneumococcal pneumococcal 2015-03-14 Completed [facility] conjugate PCV 13 conjugate PCV 13 00:00:00 pneumococcal pneumococcal 2015-03-14 Completed [facility] conjugate PCV 13 conjugate PCV 13 00:00:00 pneumococcal pneumococcal 2015-03-14 Completed [facility] conjugate PCV 13 conjugate PCV 13 00:00:00 pneumococcal pneumococcal 2015-03-14 Completed [facility] conjugate PCV 13 conjugate PCV 13 00:00:00 pneumococcal pneumococcal 2015-03-14 Completed [facility] conjugate PCV 13 conjugate PCV 13 00:00:00 pneumococcal pneumococcal 2015-03-14 Completed [facility] conjugate PCV 13 conjugate PCV 13 00:00:00 pneumococcal pneumococcal 2015-03-14 Completed [facility] conjugate PCV 13 conjugate PCV 13 00:00:00 pneumococcal pneumococcal 2015-03-14 Completed [facility] conjugate PCV 13 conjugate PCV 13 00:00:00 pneumococcal pneumococcal 2015-03-14 Completed [facility] conjugate PCV 13 conjugate PCV 13 00:00:00 pneumococcal pneumococcal 2015-03-14 Completed [facility] conjugate PCV 13 conjugate PCV 13 00:00:00 pneumococcal pneumococcal 2015-03-14 Completed [facility] conjugate PCV 13 conjugate PCV 13 00:00:00 pneumococcal pneumococcal 2015-03-14 Completed [facility] conjugate PCV 13 conjugate PCV 13 00:00:00 flu vax 2014-07-29 Completed [facility]11 [facility] influenza, seasonal, influenza, seasonal, 2014-07-29 Completed [facility] injectable injectable 00:00:00 influenza, seasonal, influenza, seasonal, 2014-07-29 Completed [facility] injectable injectable 00:00:00 influenza, seasonal, influenza, seasonal, 2014-07-29 Completed [facility] injectable injectable 00:00:00 influenza, seasonal, influenza, seasonal, 2014-07-29 Completed [facility] injectable injectable 00:00:00 influenza, seasonal, influenza, seasonal, 2014-07-29 Completed [facility] injectable injectable 00:00:00 influenza, seasonal, influenza, seasonal, 2014-07-29 Completed [facility] injectable injectable 00:00:00 influenza, seasonal, influenza, seasonal, 2014-07-29 Completed [facility] injectable injectable 00:00:00 influenza, seasonal, influenza, seasonal, 2014-07-29 Completed [facility] injectable injectable 00:00:00 influenza, seasonal, influenza, seasonal, 2014-07-29 Completed [facility] injectable injectable 00:00:00 influenza, seasonal, influenza, seasonal, 2014-07-29 Completed [facility] injectable injectable 00:00:00 influenza, seasonal, influenza, seasonal, 2014-07-29 Completed [facility] injectable injectable 00:00:00 influenza, seasonal, influenza, seasonal, 2014-07-29 Completed [facility] injectable injectable 00:00:00 influenza, seasonal, influenza, seasonal, 2014-07-29 Completed [facility] injectable injectable 00:00:00 influenza, seasonal, influenza, seasonal, 2014-07-29 Completed [facility] injectable injectable 00:00:00 influenza, seasonal, influenza, seasonal, 2014-07-29 Completed [facility] injectable injectable 00:00:00 influenza, seasonal, influenza, seasonal, 2014-07-29 Completed [facility] injectable injectable 00:00:00 influenza, seasonal, influenza, seasonal, 2014-07-29 Completed [facility] injectable injectable 00:00:00 influenza, seasonal, influenza, seasonal, 2014-07-29 Completed [facility] injectable injectable 00:00:00 influenza, seasonal, influenza, seasonal, 2014-07-29 Completed [facility] injectable injectable 00:00:00 influenza, seasonal, influenza, seasonal, 2014-07-29 Completed [facility] injectable injectable 00:00:00 influenza, seasonal, influenza, seasonal, 2014-07-29 Completed [facility] injectable injectable 00:00:00 influenza, seasonal, influenza, seasonal, 2014-07-29 Completed [facility] injectable injectable 00:00:00 influenza, seasonal, influenza, seasonal, 2014-07-29 Completed [facility] injectable injectable 00:00:00 influenza, seasonal, influenza, seasonal, 2014-07-29 Completed [facility] injectable injectable 00:00:00 influenza, seasonal, influenza, seasonal, 2014-07-29 Completed [facility] injectable injectable 00:00:00 influenza, seasonal, influenza, seasonal, 2014-07-29 Completed [facility] injectable injectable 00:00:00 influenza, seasonal, influenza, seasonal, 2014-07-29 Completed [facility] injectable injectable 00:00:00 influenza, seasonal, influenza, seasonal, 2014-07-29 Completed [facility] injectable injectable 00:00:00 influenza, seasonal, influenza, seasonal, 2014-07-29 Completed [facility] injectable injectable 00:00:00 Vital Signs Vital Name Observation Time Observation Value Comments Source BP Diastolic 2023-04-05 00:00:00 61 mm[Hg] [facility] Height 2023-04-05 00:00:00 62 [in_i] [facility] BMI (Body Mass 2023-04-05 00:00:00 34.8 kg/m2 [facility] Index) BP Systolic 2023-04-05 00:00:00 107 mm[Hg] [facility] Body Weight 2023-04-05 00:00:00 3042 [oz_av] [facility] BP Diastolic 2023-03-02 00:00:00 63 mm[Hg] [facility] Height 2023-03-02 00:00:00 62 [in_i] [facility] BMI (Body Mass 2023-03-02 00:00:00 34.8 kg/m2 [facility] Index) BP Systolic 2023-03-02 00:00:00 117 mm[Hg] [facility] Body Weight 2023-03-02 00:00:00 3042 [oz_av] [facility] BP Diastolic 2023-02-23 00:00:00 68 mm[Hg] [facility] Height 2023-02-23 00:00:00 62 [in_i] [facility] BMI (Body Mass 2023-02-23 00:00:00 34.6 kg/m2 [facility] Index) BP Systolic 2023-02-23 00:00:00 114 mm[Hg] [facility] Body Weight 2023-02-23 00:00:00 3029 [oz_av] [facility] BP Diastolic 2023-01-21 00:00:00 60 mm[Hg] [facility] Height 2023-01-21 00:00:00 62 [in_i] [facility] BMI (Body Mass 2023-01-21 00:00:00 34.6 kg/m2 [facility] Index) BP Systolic 2023-01-21 00:00:00 107 mm[Hg] [facility] Body Weight 2023-01-21 00:00:00 3029 [oz_av] [facility] BP Diastolic 2023-01-08 00:00:00 66 mm[Hg] [facility] Height 2023-01-08 00:00:00 62 [in_i] [facility] BMI (Body Mass 2023-01-08 00:00:00 34.6 kg/m2 [facility] Index) BP Systolic 2023-01-08 00:00:00 106 mm[Hg] [facility] Body Weight 2023-01-08 00:00:00 3029 [oz_av] [facility] BP Diastolic 2023-01-04 00:00:00 63 mm[Hg] [facility] Height 2023-01-04 00:00:00 62 [in_i] [facility] BMI (Body Mass 2023-01-04 00:00:00 34.6 kg/m2 [facility] Index) BP Systolic 2023-01-04 00:00:00 112 mm[Hg] [facility] Body Weight 2023-01-04 00:00:00 3027 [oz_av] [facility] BP Diastolic 2022-12-28 00:00:00 61 mm[Hg] [facility] Height 2022-12-28 00:00:00 62 [in_i] [facility] BMI (Body Mass 2022-12-28 00:00:00 34.6 kg/m2 [facility] Index) BP Systolic 2022-12-28 00:00:00 106 mm[Hg] [facility] Body Weight 2022-12-28 00:00:00 3027 [oz_av] [facility] BP Diastolic 2022-12-14 00:00:00 61 mm[Hg] [facility] Height 2022-12-14 00:00:00 62 [in_i] [facility] BMI (Body Mass 2022-12-14 00:00:00 34.6 kg/m2 [facility] BP Systolic 2022-12-14 00:00:00 105 mm[Hg] [facility] Body Weight 2022-12-14 00:00:00 3027 [oz_av] [facility] BP Diastolic 2022-12-07 00:00:00 62 mm[Hg] [facility] Height 2022-12-07 00:00:00 62 [in_i] [facility] BMI (Body Mass 2022-12-07 00:00:00 34.6 kg/m2 [facility] BP Systolic 2022-12-07 00:00:00 110 mm[Hg] [facility] Body Weight 2022-12-07 00:00:00 3027 [oz_av] [facility] BP Diastolic 2022-11-09 00:00:00 75 mm[Hg] [facility] Height 2022-11-09 00:00:00 62 [in_i] [facility] BMI (Body Mass 2022-11-09 00:00:00 34.5 kg/m2 [facility] BP Systolic 2022-11-09 00:00:00 113 mm[Hg] [facility] Body Weight 2022-11-09 00:00:00 3017 [oz_av] [facility] BP Diastolic 2022-11-02 00:00:00 74 mm[Hg] [facility] Height 2022-11-02 00:00:00 62 [in_i] [facility] BMI (Body Mass 2022-11-02 00:00:00 35 kg/m2 [facility] BP Systolic 2022-11-02 00:00:00 116 mm[Hg] [facility] Body Weight 2022-11-02 00:00:00 3060 [oz_av] [facility] BP Diastolic 2022-10-26 00:00:00 74 mm[Hg] [facility] Height 2022-10-26 00:00:00 62 [in_i] [facility] BMI (Body Mass 2022-10-26 00:00:00 35 kg/m2 [facility] Index) BP Systolic 2022-10-26 00:00:00 116 mm[Hg] [facility] Body Weight 2022-10-26 00:00:00 3060 [oz_av] [facility] BP Diastolic 2022-10-19 00:00:00 70 mm[Hg] [facility] Height 2022-10-19 00:00:00 62 [in_i] [facility] BMI (Body Mass 2022-10-19 00:00:00 35 kg/m2 [facility] Index) BP Systolic 2022-10-19 00:00:00 123 mm[Hg] [facility] Body Weight 2022-10-19 00:00:00 3060 [oz_av] [facility] BP Diastolic 2022-09-28 00:00:00 60 mm[Hg] [facility] Height 2022-09-28 00:00:00 62 [in_i] [facility] BMI (Body Mass 2022-09-28 00:00:00 34.4 kg/m2 [facility] Index) BP Systolic 2022-09-28 00:00:00 107 mm[Hg] [facility] Body Weight 2022-09-28 00:00:00 3012 [oz_av] [facility] BP Diastolic 2022-09-17 00:00:00 62 mm[Hg] [facility] Height 2022-09-17 00:00:00 62 [in_i] [facility] BMI (Body Mass 2022-09-17 00:00:00 34.4 kg/m2 [facility] Index) BP Systolic 2022-09-17 00:00:00 114 mm[Hg] [facility] Body Weight 2022-09-17 00:00:00 3012 [oz_av] [facility] BP Diastolic 2022-09-10 00:00:00 72 mm[Hg] [facility] Height 2022-09-10 00:00:00 62 [in_i] [facility] BMI (Body Mass 2022-09-10 00:00:00 34.4 kg/m2 [facility] Index) BP Systolic 2022-09-10 00:00:00 130 mm[Hg] [facility] Body Weight 2022-09-10 00:00:00 3012 [oz_av] [facility] BP Diastolic 2022-09-03 00:00:00 70 mm[Hg] [facility] Height 2022-09-03 00:00:00 62 [in_i] [facility] BMI (Body Mass 2022-09-03 00:00:00 34.4 kg/m2 [facility] Index) BP Systolic 2022-09-03 00:00:00 129 mm[Hg] [facility] Body Weight 2022-09-03 00:00:00 3012 [oz_av] [facility] BP Diastolic 2022-08-05 00:00:00 76 mm[Hg] [facility] Height 2022-08-05 00:00:00 62 [in_i] [facility] BMI (Body Mass 2022-08-05 00:00:00 35.2 kg/m2 [facility] BP Systolic 2022-08-05 00:00:00 123 mm[Hg] [facility] Body Weight 2022-08-05 00:00:00 3078 [oz_av] [facility] BP Diastolic 2022-07-30 00:00:00 62 mm[Hg] [facility] Height 2022-07-30 00:00:00 62 [in_i] [facility] BMI (Body Mass 2022-07-30 00:00:00 35.2 kg/m2 [facility] BP Systolic 2022-07-30 00:00:00 120 mm[Hg] [facility] Body Weight 2022-07-30 00:00:00 3078 [oz_av] [facility] BP Diastolic 2022-07-20 00:00:00 62 mm[Hg] [facility] Height 2022-07-20 00:00:00 62 [in_i] [facility] BMI (Body Mass 2022-07-20 00:00:00 35.2 kg/m2 [facility] Index) BP Systolic 2022-07-20 00:00:00 127 mm[Hg] [facility] Body Weight 2022-07-20 00:00:00 3078 [oz_av] [facility] BP Diastolic 2022-06-29 00:00:00 62 mm[Hg] [facility] Height 2022-06-29 00:00:00 62 [in_i] [facility] BP Systolic 2022-06-29 00:00:00 110 mm[Hg] [facility] Body Weight 2022-06-29 00:00:00 3112 [oz_av] [facility] BP Diastolic 2022-06-22 00:00:00 62 mm[Hg] [facility] Height 2022-06-22 00:00:00 62 [in_i] [facility] BMI (Body Mass 2022-06-22 00:00:00 35.6 kg/m2 [facility] Index) BP Systolic 2022-06-22 00:00:00 110 mm[Hg] [facility] Body Weight 2022-06-22 00:00:00 3112 [oz_av] [facility] BP Diastolic 2022-06-11 00:00:00 69 mm[Hg] [facility] Height 2022-06-11 00:00:00 62 [in_i] [facility] BMI (Body Mass 2022-06-11 00:00:00 35.6 kg/m2 [facility] Index) BP Systolic 2022-06-11 00:00:00 108 mm[Hg] [facility] Body Weight 2022-06-11 00:00:00 3112 [oz_av] [facility] BP Diastolic 2022-06-08 00:00:00 69 mm[Hg] [facility] Height 2022-06-08 00:00:00 62 [in_i] [facility] BMI (Body Mass 2022-06-08 00:00:00 35.6 kg/m2 [facility] BP Systolic 2022-06-08 00:00:00 132 mm[Hg] [facility] Body Weight 2022-06-08 00:00:00 3112 [oz_av] [facility] BP Diastolic 2022-06-01 00:00:00 66 mm[Hg] [facility] Height 2022-06-01 00:00:00 62 [in_i] [facility] BMI (Body Mass 2022-06-01 00:00:00 35.6 kg/m2 [facility] BP Systolic 2022-06-01 00:00:00 128 mm[Hg] [facility] Body Weight 2022-06-01 00:00:00 3112 [oz_av] [facility] BP Diastolic 2022-05-27 00:00:00 75 mm[Hg] [facility] Height 2022-05-27 00:00:00 62 [in_i] [facility] BMI (Body Mass 2022-05-27 00:00:00 35.6 kg/m2 [facility] BP Systolic 2022-05-27 00:00:00 132 mm[Hg] [facility] Body Weight 2022-05-27 00:00:00 3112 [oz_av] [facility] BP Diastolic 2022-05-14 00:00:00 72 mm[Hg] [facility] Height 2022-05-14 00:00:00 62 [in_i] [facility] BMI (Body Mass 2022-05-14 00:00:00 35.6 kg/m2 [facility] BP Systolic 2022-05-14 00:00:00 128 mm[Hg] [facility] Body Weight 2022-05-14 00:00:00 3112 [oz_av] [facility] BP Diastolic 2022-04-21 00:00:00 64 mm[Hg] [facility] Height 2022-04-21 00:00:00 62 [in_i] [facility] BMI (Body Mass 2022-04-21 00:00:00 35.7 kg/m2 [facility] BP Systolic 2022-04-21 00:00:00 126 mm[Hg] [facility] Body Weight 2022-04-21 00:00:00 3121 [oz_av] [facility] BP Diastolic 2022-04-06 00:00:00 63 mm[Hg] [facility] Height 2022-04-06 00:00:00 62 [in_i] [facility] BMI (Body Mass 2022-04-06 00:00:00 35.7 kg/m2 [facility] Index) BP Systolic 2022-04-06 00:00:00 127 mm[Hg] [facility] Body Weight 2022-04-06 00:00:00 3121 [oz_av] [facility] BP Diastolic 2022-03-25 00:00:00 69 mm[Hg] [facility] Height 2022-03-25 00:00:00 62 [in_i] [facility] BMI (Body Mass 2022-03-25 00:00:00 34.9 kg/m2 [facility] Index) BP Systolic 2022-03-25 00:00:00 132 mm[Hg] [facility] Body Weight 2022-03-25 00:00:00 3056 [oz_av] [facility] BP Diastolic 2022-03-11 00:00:00 62 mm[Hg] [facility] Height 2022-03-11 00:00:00 62 [in_i] [facility] BMI (Body Mass 2022-03-11 00:00:00 34.9 kg/m2 [facility] Index) BP Systolic 2022-03-11 00:00:00 124 mm[Hg] [facility] Body Weight 2022-03-11 00:00:00 3056 [oz_av] [facility] Systolic (mm Hg) 2021-10-29 16:45:00 Miguelito Moore Diastolic (mm Hg) 2021-10-29 16:45:00 Mem [facility] Heart Rate 2021-10-29 16:45:00 [facility] Respitory Rate 2021-10-29 16:45:00 Alexandr al Oscar oxygen saturation, 2020-12-02 10:39:40 94 /min [facility] blood pressure, 2020-12-02 10:39:40 73 mm[Hg] [facility], 2020-12-02 10:39:40 105 mm[Hg] [facility] systolic Health pulse rate 2020-12-02 10:39:40 104 /min [facility] Health temperature E&M 2020-12-02 10:39:40 98.1 [degF] [facility] Health weight E&M 2020-12-02 10:39:40 209 [lb_av] [facility] weight in kilograms 2020-12-02 10:39:40 95 kg [facility] E&M Health height in 2020-12-02 10:39:40 157.48 cm [facility] centimeters E&M Health BMI (body mass 2020-12-02 10:39:40 n/a [facility] index) percentile Health Body Mass Index 2020-12-02 10:39:40 38.36 kg/m2 [facility] (Ratio) Health Height 2020-10-16 20:44:00 [facility] 2020[facility]10[facility] Calculated 2020-10-16 20:44:00 Alexandr Garciaann Systolic (mm Hg) 2020-10-16 20:44:00 Miguelito Horanann Diastolic (mm Hg) 2020-10-16 20:44:00 Mem alessandro Horanann Heart Rate 2020-10-16 20:44:00 Sarthak Moore Respitory Rate 2020-10-16 20:44:00 Alexandr Garcia oxygen saturation, 2020-05-28 09:58:55 95 /min [facility] oximetry Health blood pressure, 2020-05-28 09:58:55 70 mm[Hg] [facility] blood pressure, 2020-05-28 09:58:55 125 mm[Hg] [facility] systolic Health pulse rate 2020-05-28 09:58:55 89 /min [facility] om[facility] Health temperature E&M 2020-05-28 09:58:55 98.2 [degF] [facility] Health height in 2020-05-28 09:58:55 157.48 cm [facility] centimeters E&M Health oxygen saturation, 2020-02-07 10:26:43 90 /min [facility] oximetry Health blood pressure, 2020-02-07 10:26:43 71 mm[Hg] [facility] blood pressure, 2020-02-07 10:26:43 101 mm[Hg] [facility] systolic Health pulse rate 2020-02-07 10:26:43 112 /[facility] 2020-02-07 10:26:43 98.7 [degF] [facility] weight E&M 2020-02-07 10:26:43 193 [lb_av] [facility] weight in kilograms 2020-02-07 10:26:43 87.73 kg [facility] E&M Health height in 2020-02-07 10:26:43 157.48 cm [facility] ommunity centimeters E&M Health temperature site 2020-02-07 10:26:[facility] Body [facility] 2020-02-07 10:26:43 35.43 kg/m2 [facility] BMI (body mass 2020-02-07 10:26:43 [facility] temperature site 2020-02-07 10:26:43 oral [facility] Health oxygen saturation, 2019-10-04 07:16:02 98 /min [facility] oximetry Health blood pressure, 2019-10-04 07:16:02 68 mm[Hg] [facility] Health blood pressure, 2019-10-04 07:16:02 103 mm[Hg] [facility] systolic Health pulse rate 2019-10-04 07:16:02 81 /[facility] E&M 2019-10-04 07:16:02 98.6 [degF] [facility] [facility] weight E&M 2019-10-04 07:16:02 169.60 [lb_av] [facility] weight in kilograms 2019-10-04 07:16:02 77.09 kg L [facility] E&M Health height in 2019-10-04 07:16:02 157.48 cm [facility] ommunity centimeters E&M Health temperature site 2019-10-04 07:16:02 oral [facility] BMI (body mass 2019-10-04 07:16:02 n/a [facility] index) percentile Health Body Mass Index 2019-10-04 07:16:02 31.13 kg/m2 [facility] (Ratio) [facility] site 2019-10-04 07:16:02 oral Lega [facility] Health oxygen saturation, 2019-06-07 09:23:42 89 /min [facility] oximetry Health pulse rate 2019-06-07 09:23:42 95 /min [facility] temperature E&M 2019-06-07 09:23:42 97.3 [degF] [facility] Health blood pressure, 2019-06-07 09:23:42 60 mm[Hg] [facility] diastolic Health blood pressure, 2019-06-07 09:23:42 92 mm[Hg] [facility] systolic Health weight E&M 2019-06-07 09:23:42 180 [lb_av] [facility] Health weight in kilograms 2019-06-07 09:23:42 81.82 [facility] height in 2019-06-07 09:23:42 157.48 [facility]M [facility] site 2019-06-07 09:23:42 oral Lega [facility] BMI (body mass 2019-06-07 09:23:42 n/a [facility] index) percentile Health Body Mass Index 2019-06-07 09:23:42 33.04 kg/m2 [facility] (Ratio) [facility] site 2019-06-07 09:23:42 oral [facility] Health blood pressure, 2019-02-08 07:52:46 80 mm[Hg] [facility] diastolic Health blood pressure, 2019-02-08 07:52:46 110 mm[Hg] [facility] systolic Health oxygen saturation, 2019-02-08 07:52:46 89 /min [facility] oximetry Health pulse rate 2019-02-08 07:52:46 126 /min [facility] temperature E&M 2019-02-08 07:52:46 98.6 [degF] [facility] 2019-02-08 07:52:46 189.13 [lb_av] [facility] weight in kilograms 2019-02-08 07:52:46 85.97 kg L [facility] E& Health height in 2019-02-08 07:52:46 157.48 cm [facility] ommunity centimeters E&M [facility] temperature site 2019-02-08 07:52:46 oral [facility] BMI (body mass 2019-02-08 07:52:46 n/a [facility] index) percentile Health Body Mass Index 2019-02-08 07:52:46 34.72 [facility]/m2 [facility] temperature site 2019-02-08 07:52:46 oral [facility] Health oxygen saturation, 2018-09-26 07:50:53 98 /min [facility] oximetry Health respiratory rate E&M 2018-09-26 07:50:53 16 /min [facility] pulse rate 2018-09-26 07:50:53 78 /min [facility] Health temperature E&M 2018-09-26 07:50:53 98.2 [degF] [facility] blood pressure, 2018-09-26 07:50:53 73 mm[Hg] [facility] diastolic Health blood pressure, 2018-09-26 07:50:53 96 mm[Hg] [facility] systolic Health weight E&M 2018-09-26 07:50:53 188.25 [lb_av] [facility] weight in kilograms 2018-09-26 07:50:53 85.57 kg L [facility] E& Health height in 2018-09-26 07:50:53 157.48 cm [facility] centimeters E&M [facility] temperature site 2018-09-26 07:50:53 oral [facility] BMI (body mass 2018-09-26 07:50:53 n/a [facility] index) percentile Health Body Mass Index 2018-09-26 07:50:53 34.56 kg/m2 [facility] (Ratio) [facility] temperature site 2018-09-26 07:50:53 oral [facility] Health pulse rate 2018-02-21 08:03:52 120 /min [facility] Health blood pressure, 2018-02-21 08:03:52 79 mm[Hg] [facility] diastolic Health blood pressure, 2018-02-21 08:03:52 120 mm[Hg] [facility] systolic Health respiratory rate E&M 2018-02-21 08:03:52 20 /min [facility] oxygen saturation, 2018-02-21 08:03:52 99 /min [facility] oximetry Health temperature E&M 2018-02-21 08:03:52 97.7 [degF] [facility] Health weight E&M 2018-02-21 08:03:52 177 [lb_av] [facility] weight in kilograms 2018-02-21 08:03:52 80.45 kg L [facility] E& Health height in 2018-02-21 08:03:52 157.48 cm [facility] centimeters E&M Health temperature site 2018-02-21 08:03:52 [facility] Body Mass Index 2018-02-21 08:03:52 32.49 kg/m2 [facility] ([facility] Health temperature site 2018-02-21 08:03:52 tympanic [facility] Health blood pressure, 2017-10-13 08:35:18 74 mm[Hg] [facility] diastolic Health blood pressure, 2017-10-13 08:35:18 105 mm[Hg] [facility] systolic Health pulse rate 2017-10-13 08:35:18 104 /min [facility] omformerly [facility] Health respiratory rate E&M 2017-10-13 08:35:18 16 /min [facility] oxygen saturation, 2017-10-13 08:35:18 96 /min [facility] oximetry Health temperature E&M 2017-10-13 08:35:18 99 [degF] [facility] weight E&M 2017-10-13 08:35:18 175 [lb_av] [facility] weight in kilograms 2017-10-13 08:35:18 79.55 kg L [facility] E& Health height in 2017-10-13 08:35:18 157.48 cm [facility] centimeters E&M Health temperature site 2017-10-13 08:35:18 tympanic Lega [facility] Health Body Mass Index 2017-10-13 08:35:18 32.12 kg/m2 [facility] (Ratio) Health temperature site 2017-10-13 08:35:18 tympanic [facility] Health blood pressure, 2017-06-29 08:33:26 50 mm[Hg] [facility] diastolic Health blood pressure, 2017-06-29 08:33:26 86 mm[Hg] [facility] systolic Health pulse rate 2017-06-29 08:33:26 100 /min [facility] Health respiratory rate E&M 2017-06-29 08:33:26 24 /min [facility] oxygen saturation, 2017-06-29 08:33:26 97 /min [facility] oximetry Health temperature E&M 2017-06-29 08:33:26 98.2 [degF] [facility] weight E&M 2017-06-29 08:33:26 169 [lb_av] [facility] weight in kilograms 2017-06-29 08:33:26 76.82 kg L [facility] E&M Health height in 2017-06-29 08:33:26 157.48 cm [facility] centimeters E&M Health temperature site 2017-06-29 08:33:26 tympanic [facility] Health Body Mass Index 2017-06-29 08:33:26 31.02 kg/m2 [facility] (Ratio) [facility] temperature site 2017-06-29 08:33:26 tympanic [facility] Health blood pressure, 2017-06-17 07:40:48 68 mm[Hg] [facility] diastolic Health blood pressure, 2017-06-17 07:40:48 97 mm[Hg] [facility] systolic Health pulse rate 2017-06-17 07:40:48 106 /min [facility] oxygen saturation, 2017-06-17 07:40:48 98 /min [facility] oximetry Health temperature E&M 2017-06-17 07:40:48 97.5 [degF] [facility] weight E&M 2017-06-17 07:40:48 170.13 [lb_av] [facility] weight in kilograms 2017-06-17 07:40:48 77.33 kg L [facility] E&M Health height in 2017-06-17 07:40:48 157.48 cm [facility] centimeters E&M Health temperature site 2017-06-17 07:40:48 tympanic [facility] Health Body Mass Index 2017-06-17 07:40:48 31.23 kg/m2 [facility] (Ratio) [facility] temperature site 2017-06-17 07:40:48 tympanic [facility] Health blood pressure, 2017-04-19 10:19:07 60 mm[Hg] [facility] diastolic Health blood pressure, 2017-04-19 10:19:07 108 mm[Hg] [facility] systolic Health pulse rate 2017-04-19 10:19:07 75 /min [facility] respiratory rate E&M 2017-04-19 10:19:07 24 /min [facility] oxygen saturation, 2017-04-19 10:19:07 96 /min [facility] oximetry Health temperature E&M 2017-04-19 10:19:07 99.1 [degF] [facility] weight E&M 2017-04-19 10:19:07 172 [lb[facility]av] [facility] 2017-04-19 10:19:07 78.18 kg L [facility] E&M Health height in 2017-04-19 10:19:07 157.48 cm [facility] centimeters E&M [facility] temperature site 2017-04-19 10:19:07 tympanic Lega [facility] Body Mass Index 2017-04-19 10:19:07 31.57 kg/m2 [facility] (Ratio) Health temperature site 2017-04-19 10:19:07 tympanic Lega [facility] blood pressure, 2016-11-02 08:40:55 79 mm[Hg] [facility] diastolic Health blood pressure, 2016-11-02 08:40:55 113 mm[Hg] [facility] systolic Health pulse rate 2016-11-02 08:40:55 101 /min [facility] saturation, 2016-11-02 08:40:55 97 /min [facility] oximetry Health temperature E&M 2016-11-02 08:40:55 97.6 [degF] [facility] weight E&M 2016-11-02 08:40:55 180.60 [lb_av] [facility] weight in kilograms 2016-11-02 08:40:55 82.09 kg L [facility] E& Health height in 2016-11-02 08:40:55 157.48 cm [facility] ommunity centimeters E&M [facility] temperature site 2016-11-02 08:40:55 tympanic [facility] Health Body Mass Index 2016-11-02 08:40:55 33.15 kg/m2 [facility] (Ratio) Health temperature site 2016-11-02 08:40:55 tympanic [facility] Health oxygen saturation, 2016-07-07 08:32:30 82 /min [facility] oximetry Health blood pressure, 2016-07-07 08:32:30 83 mm[Hg] [facility] diastolic Health blood pressure, 2016-07-07 08:32:30 119 mm[Hg] [facility] systolic Health pulse rate 2016-07-07 08:32:30 82 /min [facility] temperature E&M 2016-07-07 08:32:30 96.4 [degF] [facility] weight E&M 2016-07-07 08:32:30 170.40 [lb_av] [facility] weight in kilograms 2016-07-07 08:32:30 77.45 kg L [facility] E& Health height in 2016-07-07 08:32:30 157.48 cm [facility] site 2016-07-07 08:32:30 tympanic [facility] Health Body Mass Index 2016-07-07 08:32:30 31.28 kg/m2 [facility] (Ratio) [facility] temperature site 2016-07-07 08:32:30 tympanic [facility] Health blood pressure, 2016-03-24 15:04:18 74 mm[Hg] [facility] diastolic Health blood pressure, 2016-03-24 15:04:18 107 mm[Hg] [facility] systolic Health pulse rate 2016-03-24 15:04:18 92 /min [facility] oxygen saturation, 2016-03-24 15:04:18 94 /min [facility] oximetry Health temperature E&M 2016-03-24 15:04:18 97.2 [degF] [facility] Health weight E&M 2016-03-24 15:04:18 147.70 [lb_av] [facility] weight in [facility] 2016-03-24 15:04:18 67.14 kg L [facility] E& Health height in 2016-03-24 15:04:18 157.48 cm [facility] centimeters E&M Health temperature site 2016-03-24 15:04:18 tympanic [facility] Body Mass Index 2016-03-24 15:04:18 27.11 kg/m2 [facility] (Ratio) [facility] temperature site 2016-03-24 15:04:18 tympanic [facility] Health pulse rate 2016-03-08 09:29:07 91 /min [facility] blood pressure, 2016-03-08 09:29:07 76 mm[Hg] [facility] diastolic Health blood pressure, 2016-03-08 09:29:07 112 mm[Hg] [facility] systolic Health oxygen saturation, 2016-03-08 09:29:07 94 /min [facility] oximetry Health temperature E&M 2016-03-08 09:29:07 96.9 [degF] [facility] weight E&M 2016-03-08 09:29:07 137 [lb_av] [facility] omformerly [facility] Health weight in kilograms 2016-03-08 09:29:07 62.27 kg L [facility] E& Health height in 2016-03-08 09:29:07 157.48 cm [facility] ommunity centimeters E&M [facility] temperature site 2016-03-08 09:29:07 tympanic [facility] Health Body Mass Index 2016-03-08 09:29:07 25.15 kg/m2 [facility] (Ratio) Health temperature site 2016-03-08 09:29:07 tympanic [facility] Health oxygen saturation, 2015-07-01 10:02:02 94 /min [facility] blood [facility], 2015-07-01 10:02:02 64 mm[Hg] [facility] diastolic Health blood pressure, 2015-07-01 10:02:02 89 mm[Hg] [facility] systolic Health pulse rate 2015-07-01 10:02:02 103 /min [facility] Health temperature E&M 2015-07-01 10:02:02 98.5 [degF] [facility] Health weight E&M 2015-07-01 10:02:02 127.40 [lb_av] [facility] weight in kilograms 2015-07-01 10:02:02 57.91 kg L [facility] E& Health height in 2015-07-01 10:02:02 157.48 cm [facility] E&M [facility] temperature site 2015-07-01 10:02:02 [facility] Body Mass Index 2015-07-01 10:02:02 23.39 kg/m2 [facility] ([facility] temperature site 2015-07-01 10:02:02 oral [facility] blood pressure, 2015-03-18 10:06:41 62 mm[Hg] [facility] diastolic Health blood pressure, 2015-03-18 10:06:41 86 mm[Hg] [facility] systolic Health temperature E&M 2015-03-18 10:06:41 98.8 [degF] [facility] height in 2015-03-18 10:06:41 157.48 cm [facility] oxygen saturation, 2015-03-18 10:06:41 93 /min [facility] oximetry Health pulse rate 2015-03-18 10:06:41 111 /min [facility] weight E&M 2015-03-18 10:06:41 137 [lb_av] [facility] weight in kilograms 2015-03-18 10:06:41 62.27 kg L [facility] temperature site 2015-03-18 10:06:41 temporal Lega [facility] Body Mass Index 2015-03-18 10:06:41 25.15 kg/m2 [facility] (Ratio) [facility] temperature site 2015-03-18 10:06:41 [facility] Procedures Procedure Date / Time Performing Clinician Source Performed US, duplex, arterial, 2023-02-09 00:00:00 [facility] lower extremity, complete [facility] 2016-03-08 10:18:09 Dil[facility] Case Management [facility] Primary Care Service 2015-07-02 08:59:43 Zee Rodriguez [facility] Primary Care - 2015-03-21 13:05:22 Zee Rodriguez Co mmunity Assesment-Brief - [facility] Primary Care Service 2015-03-21 13:05:22 Zee Rodriguez [facility] Venipuncture 2015-03-03 09:52:50 Elodia Cespedes [facility] Appendectomy [facility] Hysterectomy [facility] Plan of Care Planned Activity Planned Date Details Comments Source Diagnostic Test Pending 2022-09-10 00:00:00 drug screen, 14 [facility] drugs (detectimed), urine [code = drug screen, 14 drugs (detectimed), urine] Diagnostic Test Pending 2022-03-11 00:00:00 drug screen, 14 [facility] drugs (detectimed), urine [code = drug screen, 14 drugs (detectimed), urine] Encounters Start End Encounter Admission Attending Care Care Encounter Source Date/Time Date/Time Type Type Clinicians Facility Department ID 2023-01-31 Outpatient [email or web address] [place] [id number] [facility] 10:30:29 [id number] formerly [facility] 2023-01-22 Outpatient [email or web address] [facility] [id number] [facility] 13:11:50 [id number] formerly [facility] 2023-01-02 Outpatient [email or web address] [facility] [id number] [facility] 07:01:18 [id number] formerly [facility] 2022-07-01 Outpatient [facility] [id number] [place] 12:34:25 [id number] [facility] 2022-06-29 Outpatient [facility] [id number] [place] 07:49:10 [id number] [facility] 2022-06-28 Outpatient [facility] [id number] [place] 16:05:33 [id number] [facility] 2023-06-22 2023-06-22 Outpatient [facility]Tod PRIV PRIV [id number] [facility] 00:00:00 00:00:00 d_J [id number] Medica l 2023-06-13 2023-06-13 Outpatient [facility]Tod PRIV PRIV [id number] [facility] 00:00:00 00:00:00 d_J [id number] Medica l 2023-06-13 2023-06-13 Outpatient [facility]Tod PRIV PRIV [id number] [facility] 00:00:00 00:00:00 d_J [id number] Medica l 2023-06-06 2023-06-06 Outpatient [facility]Tod PRIV PRIV [id number] [facility] 00:00:00 00:00:00 d_J [id number] Medica l 2023-06-06 2023-06-06 Outpatient [facility]_Tod PRIV PRIV [id number] [facility] 00:00:00 00:00:00 d_J [id number] Medica l 2023-05-14 2023-05-14 Outpatient KNOW, HCANW REF [id number] [facility] 11:47:00 11:47:00 DOES_NOT [facility] [place] [facility] 2023-04-12 2023-04-12 Outpatient KNOW, HCANW REF [id number] [facility] 19:27:00 19:27:00 DOES_NOT [facility] [place] [facility] 2023-04-12 2023-04-12 Outpatient KNOW, HCANW REF [id number] [facility] 19:27:00 19:27:00 DOES_NOT [facility] [place] [facility] 2023-04-05 2023-04-05 Shyam Keita [facility] [id number] [facility] 00:00:00 00:00:00 Kena [facility] - Med grayson BERRY: [address] [address] , Ph. 2023-03-29 2023-03-29 [facility] [id number] [facility] 00:00:00 00:00:00 POLY Meyers: Health - Med ical [address] [address] , Ph. 2023-03-11 2023-03-11 Nadeen [facility] 414 [facility] 00:00:00 00:00:00 POLY Meyers: Health - Med ical [address] [address] , Ph. 2023-03-02 2023-03-02 Nadeen [facility] [id number] [facility] 00:00:00 00:00:00 POLY Meyers: Health - Med ical [address] [address] , Ph. 2023-03-01 2023-03-01 Outpatient [facility]_Tod PRIV PRIV [id number] [facility] 00:00:00 00:00:00 d_J [id number] Medica l 2023-03-01 2023-03-01 Outpatient [facility]_Tod PRIV PRIV [id number] [facility] 00:00:00 00:00:00 d_J [id number] Medica l 2023-03-01 2023-03-01 Outpatient [facility]Tod PRIV PRIV [id number] [facility] 00:00:00 00:00:00 d_J [id number] Medica l 2023-03-01 2023-03-01 Outpatient [facility]Tod PRIV PRIV [id number] [facility] 00:00:00 00:00:00 d_J [id number] Medica l 2023-03-01 2023-03-01 Outpatient [facility]Tod PRIV PRIV [id number] [facility] 00:00:00 00:00:00 d_J [id number] Medica l 2023-03-01 2023-03-01 Outpatient [facility]Tod PRIV PRIV [id number] [facility] 00:00:00 00:00:00 d_J [id number] Medica l 2023-03-01 2023-03-01 Outpatient [facility]Tod PRIV PRIV [id number] [facility] 00:00:00 00:00:00 d_J [id number] Medica l 2023-03-01 2023-03-01 Outpatient [facility]Tod PRIV PRIV [id number] [facility] 00:00:00 00:00:00 d_J [id number] Medica l 2023-03-01 2023-03-01 Outpatient [facility]Tod PRIV PRIV [id number] [facility] 00:00:00 00:00:00 d_J [id number] Medica l 2023-03-01 2023-03-01 Outpatient [facility]_Tod PRIV PRIV [id number] [facility] 00:00:00 00:00:00 d_J [id number] Medica l 2023-03-01 2023-03-01 Outpatient [facility]_Tod PRIV PRIV [id number] [facility] 00:00:00 00:00:00 d_J [id number] Medica l 2023-03-01 2023-03-01 Outpatient [facility]_Tod PRIV PRIV [id number] [facility] 00:00:00 00:00:00 d_J [id number] Medica l 2023-03-01 2023-03-01 Outpatient [facility]Tod PRIV PRIV [id number] [facility] 00:00:00 00:00:00 d_J [id number] Medica l 2023-03-01 2023-03-01 Outpatient [facility]_Tod PRIV PRIV [id number] [facility] 00:00:00 00:00:00 d_J [id number] Medica l 2023-03-01 2023-03-01 Outpatient [facility]_Tod PRIV PRIV [id number] [facility] 00:00:00 00:00:00 d_J [id number] Medica l 2023-03-01 2023-03-01 Outpatient [facility]_Tod PRIV PRIV [id number] [facility] 00:00:00 00:00:00 d_J [id number] Medica l 2023-03-01 2023-03-01 Outpatient [facility]_Tod PRIV PRIV [id number] [facility] 00:00:00 00:00:00 d_J [id number] Medica l 2023-03-01 2023-03-01 Outpatient [facility]_Tod PRIV PRIV [id number] [facility] 00:00:00 00:00:00 d_J [id number] Medica l 2023-03-01 2023-03-01 Outpatient [facility]_Tod PRIV PRIV [id number] [facility] 00:00:00 00:00:00 d_J [id number] Medica l 2023-03-01 2023-03-01 Outpatient [facility]_Tod PRIV PRIV [id number] [facility] 00:00:00 00:00:00 d_J [id number] Medica l 2023-03-01 2023-03-01 Outpatient [facility]_Tod PRIV PRIV [id number] [facility] 00:00:00 00:00:00 d_J [id number] Medica l 2023-03-01 2023-03-01 Outpatient [facility]_Tod PRIV PRIV [id number] [facility] 00:00:00 00:00:00 d_J [id number] Medica l 2023-02-23 2023-02-23 Nadeen [facility] [id number] [facility] 00:00:00 00:00:00 POLY Meyers: Health - Med ical [address] [address] , Ph. 2023-02-08 2023-02-08 Nadeen [facility] [id number] [facility] 00:00:00 00:00:00 POLY Meyers: Health - Med ical [address] [address] , Ph. 2023-01-26 2023-01-26 Outpatient [facility]_Tod PRIV PRIV [id number] [facility] 00:00:00 00:00:00 d_J [id number] Medica l 2023-01-26 2023-01-26 Outpatient [facility]_Tod PRIV PRIV [id number] [facility] 00:00:00 00:00:00 d_J [id number] Medica l 2023-01-26 2023-01-26 Outpatient [facility]_Tod PRIV PRIV [id number] [facility] 00:00:00 00:00:00 d_J [id number] Medica l 2023-01-26 2023-01-26 Outpatient [facility]_Tod PRIV PRIV [id number] [facility] 00:00:00 00:00:00 d_J [id number] Medica l 2023-01-26 2023-01-26 Outpatient [facility]_Tod PRIV PRIV [id number] [facility] 00:00:00 00:00:00 d_J [id number] Medica l 2023-01-26 2023-01-26 Outpatient [facility]_Tod PRIV PRIV [id number] [facility] 00:00:00 00:00:00 d_J [id number] Medica l 2023-01-21 2023-01-21 Nadeen [facility] 224 [facility] 00:00:00 00:00:00 POLY Meyers: Health - Med ical [address] [address] , Ph. 2023-01-08 2023-01-08 [facility] 00:00:00 00:00:00 POLY Meyers: Health - Med ical [address] [address] , Ph. 2023-01-04 2023-01-04 [facility] [id number] [facility] 00:00:00 00:00:00 POLY Meyers: Health - Med ical [address] [address] , Ph. 2022-12-28 2022-12-28 [facility] [id number] [facility] 00:00:00 00:00:00 POLY Meyers: Health - Med ical [address] [address] , Ph. 2022-12-14 2022-12-14 [facility] 117 [facility] 00:00:00 00:00:00 POLY Meyers: Health - Med ical [address] [address] , Ph. 2022-12-07 2022-12-07 Shyam Keita [facility] [id number] [facility] 00:00:00 00:00:00 Kena [facility] - Med ical MD: [address] [place] [address] , Ph. 2022-11-16 2022-11-16 Outpatient GC_BAHC_Tod PRIV PRIV [id number] [facility] 00:00:00 00:00:00 d_J [id number] Medica l 2022-11-16 2022-11-16 Outpatient GC_BAHC_Tod PRIV PRIV 239 [id number] [facility] 00:00:00 00:00:00 d_J [id number] Medica l 2022-11-16 2022-11-16 Outpatient GC_BAHC_Tod PRIV PRIV 239 [id number] [facility] 00:00:00 00:00:00 d_J [id number] Medica l 2022-11-16 2022-11-16 Outpatient GC_BAHC_Tod PRIV PRIV 239 [id number] [facility] 00:00:00 00:00:00 d_J [id number] Medica l 2022-11-16 2022-11-16 Outpatient GC_BAHC_Tod PRIV PRIV 239 [id number] [facility] 00:00:00 00:00:00 d_J [id number] Medica l 2022-11-16 2022-11-16 Outpatient GC_BAHC_Tod PRIV PRIV 239 [id number] [facility] 00:00:00 00:00:00 d_J [id number] Medica l 2022-11-16 2022-11-16 Outpatient GC_BAHC_Tod PRIV PRIV 239 [id number] [facility] 00:00:00 00:00:00 d_J [id number] Medica l 2022-11-16 2022-11-16 Outpatient GC_BAHC_Tod PRIV PRIV 239 [id number] [facility] 00:00:00 00:00:00 d_J [id number] Medica l 2022-11-16 2022-11-16 Outpatient GC_BAHC_Tod PRIV PRIV 239 [id number] [facility] 00:00:00 00:00:00 d_J [id number] Medica l 2022-11-16 2022-11-16 Outpatient GC_BAHC_Tod PRIV PRIV 239 [id number] [facility] 00:00:00 00:00:00 d_J [id number] Medica l 2022-11-09 2022-11-09 Nadeen [facility] 213 [facility] 00:00:00 00:00:00 POLY Meyers: Health - Med ical [address] [place] [address] , Ph. 2022-11-07 2022-11-07 Outpatient KNOW, [facility] [id number] [facility] 06:24:00 06:24:00 DOES_NOT 24 [place] [facility] 2022-11-02 2022-11-02 Nadeen [facility] 206 [facility] 00:00:00 00:00:00 POLY Meyers: Health - Med ical [address] [address] , Ph. 2022-10-26 2022-10-26 Nadeen [facility] [id number] [facility] 00:00:00 00:00:00 POLY Meyers: Health - Med ical [address] [address] , Ph. 2022-10-19 2022-10-19 Nadeen [facility] [id number] 122 [facility] 00:00:00 00:00:00 POLY Meyers: Health - Med ical [address] [address] , Ph. 2022-09-28 2022-09-28 Nadeen [facility] 101 [facility] 00:00:00 00:00:00 POLY Meyers: Health - Med ical [address] [address] , Ph. 2022-09-17 2022-09-17 Nadeen [facility] 021 [facility] 00:00:00 00:00:00 POLY Meyers: Health - Med ical [address] [address] , Ph. 2022-09-10 2022-09-10 Nadeen [facility] - [facility] 014 [facility] 00:00:00 00:00:00 POLY Meyers: Health - Med ical [address] [address] , Ph. 2022-09-03 2022-09-03 Nadeen [facility] - [facility] 007 [facility] 00:00:00 00:00:00 POLY Meyers: Health - Med ical [address] [address] , Ph. 2022-08-19 2022-08-19 Outpatient GC_BAHC_Tod PRIV PRIV 239 [id number] [facility] 00:00:00 00:00:00 d_J [id number] Medica l 2022-08-19 2022-08-19 Outpatient GC_BAHC_Tod PRIV PRIV 239 [id number] [facility] 00:00:00 00:00:00 d_J [id number] Medica l 2022-08-19 2022-08-19 Outpatient GC_BAHC_Tod PRIV PRIV 239 [id number] [facility] 00:00:00 00:00:00 d_J [id number] Medica l 2022-08-19 2022-08-19 Outpatient GC_BAHC_Tod PRIV PRIV 239 [id number] [facility] 00:00:00 00:00:00 d_J [id number] Medica l 2022-08-05 2022-08-05 Shyma Keita [facility] 202 [id number] [facility] 00:00:00 00:00:00 [facility] - Med ical MD: [address] [address] , Ph. 2022-08-05 2022-08-05 Outpatient Kena PRIV PRIV [id number] 00:00:00 00:00:00 Shyam Keita [id number]-[id number] 2022-07-30 2022-07-30 [facility] [id number] [facility] 00:00:00 00:00:00 POLY Meyers: Health - Med ical [address] [address] , Ph. 2022-07-30 2022-07-30 Outpatient Luigi, PRIV PRIV [id number] 00:00:00 00:00:00 Nadeen [id number] 2022-07-22 2022-07-22 Outpatient GC_BAHC_Tod PRIV PRIV 239 [id number] [facility] 00:00:00 00:00:00 d_J [id number] Medica l 2022-07-20 2022-07-20 Nadeen [facility] [id number] [facility] 00:00:00 00:00:00 POLY Meyers: Health - Med ical [address] [address] , Ph. 2022-07-20 2022-07-20 Outpatient Luigi, PRIV PRIV [id number] [id number] 00:00:00 00:00:00 Nadeen [id number] 2022-07-16 2022-07-16 Outpatient GC_BAHC_Tod PRIV PRIV 239 [id number] [facility] 00:00:00 00:00:00 d_J [id number] Medica l 2022-07-08 2022-07-08 Outpatient GC_BAHC_Tod PRIV PRIV 239 [id number] [facility] 00:00:00 00:00:00 d_J [id number] Medica l 2022-07-05 2022-07-05 [facility] [id number] DC 08:30:00 08:30:[address] , [facility] 2022-07-01 2022-07-01 Outpatient GC_BAHC_Tod PRIV PRIV 239 [id number] [facility] 00:00:00 00:00:00 d_J [id number] Medica l 2022-06-29 2022-06-29 Outpatient GC_BAHC_Tod PRIV PRIV 239 [id number] [facility] 00:00:00 00:00:00 d_J [id number] Medica l 2022-06-29 2022-06-29 Outpatient Luigi, PRIV PRIV [id number] e-1 00:00:00 00:00:00 Nadeen [id number] 2022-06-29 2022-06-29 Nadeen [facility] [id number] [facility] 00:00:00 00:00:00 POLY Meyers: Health - Med ical [address] [address] , Ph. 2022-06-22 2022-06-22 Outpatient GC_BAHC_Tod PRIV PRIV 239 [id number] [facility] 00:00:00 00:00:00 d_J [id number] Medica l 2022-06-22 2022-06-22 Outpatient Luigi, PRIV PRIV [id number] e-[id number] 00:00:00 00:00:00 Ndaeen 32d-11ed-a [id number] 2022-06-22 2022-06-22 Nadeen [facility] [id number] [facility] 00:00:00 00:00:00 POLY Meyers: Health - Med ical [address] [address] , Ph. 2022-06-21 2022-06-21 Outpatient GC_BAHC_Tod PRIV PRIV 239 [id number] [facility] 02:27:00 02:27:00 d_J [id number] Medica l 2022-06-15 2022-06-15 Outpatient GC_BAHC_Tod PRIV PRIV 239 [id number] [facility] 12:07:00 12:07:00 d_J [id number] Medica l 2022-06-11 2022-06-11 Outpatient GC_BAHC_Tod PRIV PRIV 239 [id number] [facility] 04:13:00 04:13:00 d_J [id number] Medica l 2022-06-11 2022-06-11 Outpatient Luigi, PRIV PRIV [id number] c-0 00:00:00 00:00:00 Nadeen [id number]-[id number] 2022-06-11 2022-06-11 [facility] [id number] [facility] 00:00:00 00:00:00 POLY Meyers: Health - Med ical [address] [address] , Ph. 2022-06-08 2022-06-08 Outpatient GC_BAHC_Tod PRIV PRIV 239 [id number] [facility] 01:15:00 01:15:00 d_Catie [id number] Medica l 2022-06-08 2022-06-08 Outpatient Luigi, PRIV PRIV [id number] c-0 00:00:00 00:00:00 Nadeen [id number] 2022-06-08 2022-06-08 [facility]IV [facility] [id number] [facility] 00:00:00 00:00:00 POLY Meyers: Health - Med ical [address] [address] , Ph. 2022-06-04 2022-06-04 Outpatient GC_BAHC_Tod PRIV PRIV [id number] [facility] 11:06:00 11:06:00 d_J [id number] Medica l 2022-06-03 2022-06-03 Outpatient GC_BAHC_Tod PRIV PRIV 239 [id number] [facility] 11:51:00 11:51:00 d_J [id number] Medica l 2022-06-02 2022-06-02 Outpatient GC_BAHC_Tod PRIV PRIV 239 [id number] [facility] 02:45:00 02:45:00 d_J [id number] Medica l 2022-06-01 2022-06-01 Outpatient GC_BAHC_Tod PRIV PRIV 239 [id number] [facility] 02:23:00 02:23:00 d_J [id number] Medica l 2022-06-01 2022-06-01 Outpatient Luigi, PRIV PRIV [id number] a-f 00:00:00 00:00:00 Nadeen [id number] 2022-06-01 2022-06-01 [facility] [id number] [facility] 00:00:00 00:00:00 POLY Meyers: Health - Med ical [address] [address] , Ph. 2022-05-31 2022-05-31 Outpatient GC_BAHC_Tod PRIV PRIV 239 [id number] [facility] 10:53:00 10:53:00 d_J [id number] Medica l 2022-05-27 2022-05-27 Outpatient GC_BAHC_Tod PRIV PRIV 239 [id number] [facility] 07:36:00 07:36:00 d_J [id number] Medica l 2022-05-27 2022-05-27 Outpatient Kena, PRIV PRIV [id number]-[id number] 00:00:00 00:00:00 Shyam Keita beb-11ec-8 [id number] 2022-05-27 2022-05-27 Shyam Keita [facility] 00:00:00 00:00:00 [facility] - Med ical : [address] [address] , Ph. 2022-05-26 2022-05-26 Outpatient GC_BAHC_Tod PRIV PRIV 239 [id number] [facility] 09:17:00 09:17:00 d_J [id number] Medica l 2022-05-26 2022-05-26 [facility] [id number] [facility] 00:00:00 00:00:00 POLY Meyers: Health - Med ical [address] [address] , Ph. 2022-05-23 2022-05-23 Outpatient GC_BAHC_Tod PRIV PRIV [id number] [facility] 10:44:00 10:44:00 d_J [id number] Medica l 2022-05-14 2022-05-14 Outpatient GC_BAHC_Tod PRIV PRIV 239 [id number] [facility] 06:32:00 06:32:00 d_J [id number] Medica l 2022-05-14 2022-05-14 Outpatient Luigi, [facility] PRIV [id number] 6-[id number] 00:00:00 00:00:00 Nadeen 580-11ec-8 [id number] 2022-05-14 2022-05-14 [facility] [id number] [facility] 00:00:00 00:00:00 POLY Meyers: Health - Med ical [address] [address] , Ph. 2022-05-07 2022-05-07 Outpatient GC_BAHC_Tod PRIV PRIV 239 [id number] [facility] 02:40:00 02:40:00 d_J [id number] Medica l 2022-04-30 2022-04-30 Outpatient GC_BAHC_Tod PRIV PRIV [id number] [facility] 02:07:00 02:07:00 d_J [id number] Medica l 2022-04-29 2022-04-29 Outpatient GC_BAHC_Tod PRIV PRIV [id number] [facility] 02:07:00 02:07:00 d_J [id number] Medica l 2022-04-21 2022-04-21 Outpatient GC_BAHC_Tod PRIV PRIV [id number] [facility] 08:01:00 08:01:00 d_J [id number] Medica l 2022-04-21 2022-04-21 Outpatient Luigi, PRIV PRIV [id number] 00:00:00 00:00:00 Nadeen 2cd-11ec-a [id number] 2022-04-21 2022-04-21 [facility]adeen [facility] 525 [facility] 00:00:00 00:00:00 POLY Meyers: Health - Med ical [address] [address] , Ph. 2022-04-15 2022-04-15 Outpatient GC_BAHC_Tod PRIV PRIV [id number] [facility] 10:46:00 10:46:00 d_J [id number] Medica l 2022-04-06 2022-04-06 Outpatient GC_BAHC_Tod PRIV PRIV [id number] [facility] 02:09:00 02:09:00 d_J [id number] Medica l 2022-04-06 2022-04-06 Outpatient Luigi PRIV PRIV [id number] 2-d 00:00:00 00:00:00 Nadeen [id number] [id number] 2022-04-06 2022-04-06 Nadeen [facility] 510 [facility] 00:00:00 00:00:00 POLY Meyers: Health - Med ical [address] [address] , Ph. 2022-04-01 2022-04-01 Outpatient GC_BAHC_Tod PRIV PRIV [id number] [facility] 10:54:00 10:54:00 d_J [id number] Medica l 2022-03-31 2022-03-31 Outpatient GC_BAHC_Tod PRIV PRIV [id number] [facility] 05:21:00 05:21:00 d_J [id number] Medica l 2022-03-25 2022-03-25 Outpatient GC_BAHC_Tod PRIV PRIV [id number] [facility] 09:06:00 09:06:00 d_J [id number] Medica l 2022-03-25 2022-03-25 Outpatient Kena, PRIV PRIV [id number] 21c-c 00:00:00 00:00:00 Shyam Keita cd3-11ec-a [id number] 2022-03-25 2022-03-25 Shyambrissa Lermane [facility] 00:00:00 00:00:00 [facility] - Med [facility] MD: [address] [address] , Ph. 2022-03-12 2022-03-12 Outpatient GC_BAHC_Tod PRIV PRIV [id number] [facility] 02:11:00 02:11:00 d_J [id number] Medica l 2022-03-11 2022-03-11 Outpatient GC_BAHC_Tod PRIV PRIV [id number] [facility] 05:12:00 05:12:00 d_J [id number] Medica l 2022-03-11 2022-03-11 Outpatient [place], PRIV PRIV [id number] [id number] 00:00:00 00:00:00 February [id number] 2022-03-11 2022-03-11February [facility] 14 [facility] 00:00:00 00:00:00 [facility] - Medic al HEALTH EDUCATION DIRECTOR: [id number] GC_BAHC_[facility] [place] [address] , Ph. 2022-03-11 2022-03-11 Outpatient Mariel, PRIV PRIV [id number] 4-f 00:00:00 00:00:00 February ed0-11ec-8 [id number] [id number] 2022-03-10 2022-03-10 Outpatient GC_BAHC_Tod PRIV PRIV [id number] [facility] 12:24:00 12:24:00 mary anne_Catie [id number] Medica l 2022-03-08 2022-03-08 Outpatient GC_BAHC_Spa PRIV PRIV [id number] [facility] 10:07:00 10:07:00 Clint [id number] Medica l 2022-01-27 2022-01-27 Outpatient MHIE MHIE [id number] [facility] 10:30:00 10:30:00 03 duy Moore 2022-01-27 2022-01-27 Outpatient MHIE MHIE [id number] 265 [facility] 10:30:00 10:30:00 03 duy Moore 2022-01-25 2022-01-25 Ambulatory nullFlavo MNA [id number] [facility] 16:30:00 16:30:00 Pre-Reg r Neurology 03 l Gina Moore 2022-01-25 2022-01-25 Outpatient EBONI SaldañaSCHER MHMISCHER [id number] 10:30:00 10:30:00 French 03 Clarence 2021-10-29 2021-10-30 Outpatient nullFlavo MNA [id number] [facility] 16:30:00 05:59:59 r Neurology 02 l Gina Moore 2021-10-29 2021-10-30 Outpatient nullFlavo MNA [id number] [facility] 16:30:00 05:59:59 r Neurology 02 l Gina Moore 2021-10-29 2021-10-29 Outpatient EBONI SaldañaSCHER MHMISCHER [id number] 10:30:00 23:59:59 French 02 Clarence 2021-10-29 2021-10-29 Outpatient MHIE MHIE [id number] [facility]oria 10:30:00 10:30:00 02 duy Moore 2020-12-16 2020-12-16 Outpatient MHIE MHIE [id number] [facility] 14:30:00 14:30:00 01 l Oscar 2020-12-16 2020-12-16 Outpatient MHIE MHIE [id number] [facility]oria 14:30:00 14:30:00 01 l [place] 2020-12-05 2020-12-05 Office VERO [facility] Encounte r/ Legacy 00:00:00 00:00:00 Visit Vasyl [id number] Com mychal [id number] [facility] 2020-12-03 2020-12-03 [facility] / Legacy 00:00:00 00:00:00 Visit Husam [id number] Com mychal 834342 [facility] 2020-12-02 2020-12-02 [facility] / Legacy 00:00:00 00:00:00 Visit Husam [id number] Com mychal [id number] [facility] 2020-12-02 2020-12-02 Office [facility] Enco unter/ Legacy 00:00:00 00:00:00 Visit Nan [place] [id number] Communi 826590 [facility] 2020-12-02 2020-12-02 In-person uHsam Vital [facility] Adult [id number] Legacy 00:00:00 00:00:00 encounter [place] Medicine 101 05 Communi Health 2020-11-18 2020-11-18 Office [facility] Enco unter/ Legacy 00:00:00 00:00:00 Visit Gavi Em [id number] Communi [id number] Health 2020-11-18 2020-11-18 [facility] / Legacy 00:00:00 00:00:00 Visit Husam [id number] Com mychal 387542 Health 2020-10-16 2020-10-17 Outpatient nullFlavo MNA [id number] Memoria 20:30:00 05:59:59 r Neurology 00 l [place] 2020-10-16 2020-10-17 Outpatient nullFlavo MNA [id number] Memoria 20:30:00 05:59:59 r Neurology 00 l [place] 2020-10-16 2020-10-16 Outpatient Sivatammy [facility] [id number] 14:30:00 23:59:59 French 00 Cla[place] 2020-09-24 2020-09-24 Office Desktop, [facility] [place] OPHELIA OPHELIA Encounter/ Legacy 00:00:00 00:00:00 Visit OconnorMarlee [id number] Nadeen Lowry 96829 0 Health 2020-07-01 2020-07-01 Office Ritchie JACINTO VERO Encounte r/ Legacy 00:00:00 00:00:00 Visit Teresa [id number] Com mychal Lujan 685167 [facility] 2020-06-16 2020-06-16 Office VERO Mcnamara Encounter/ Legacy 00:00:00 00:00:00 Visit Clarence [id number] Com mychal 858051 Health 2020-05-28 2020-05-28 Office VERO Vital Encounter / Legacy 00:00:00 00:00:00 Visit Husam [id number] Com mychal 032194 ty Health 2020-05-28 2020-05-28 Office Husam Vital Enco unter/ Legacy 00:00:00 00:00:00 Visit Nkechi [place] [id number] 6687 Communi 060679 Health 2020-05-28 2020-05-28 Office VERO Vital Encounter / Legacy 00:00:00 00:00:00 Visit Husam [id number] Com mychal 388232 Health 2020-05-28 2020-05-28 In-person Husam Vital [facility] [place] [id number] Legacy 00:00:00 00:00:00 encounter Nkechi [place] Medicine 007 01 Communi [facility] 2020-02-07 2020-02-07 Office VERO Vital Encounter / Legacy 00:00:00 00:00:00 Visit Husam [id number] Com mychal 892286 Health 2020-02-07 2020-02-07 Office Husam Vital Enco unter/ Legacy 00:00:00 00:00:00 Visit Tai Britt [id number] Communi 177593 ty Health 2020-02-07 2020-02-07 Office VERO Vital OPHELIA Encounter / Legacy 00:00:00 00:00:00 Visit Husam [id number] Com mychal 102144 ty Health 2020-02-07 2020-02-07 Office VERO Vital OPHELIA Encounter / Legacy 00:00:00 00:00:00 Visit Husam [id number] Com mychal 800865 ty Health 2020-02-07 2020-02-07 In-person EstrellaHusam [facility] Adult 316953-544 Legacy 00:00:00 00:00:00 encounter Tai Britt [facility] 87347 Communi ty Health 2019-10-10 2019-10-10 Office Nan VERO JACINTO Encounter/ Legacy 00:00:00 00:00:00 Visit Nkechi [id number] Com mychal 428733 ty Health 2019-10-04 2019-10-04 Office Zahraa OPHELIAFransisca OPHELIA Encounter / Legacy 00:00:00 00:00:00 Visit Husam [id number] Com mychal 427329 ty Health 2019-10-04 2019-10-04 Office ZahraaHusam OPHELIA Enco unter/ Legacy 00:00:00 00:00:00 Visit Nkechi [place] [id number] 3637 Communi 058435 ty Health 2019-10-04 2019-10-04 Office Zahraa OPHELIAFransisca OPHELIA Encounter / Legacy 00:00:00 00:00:00 Visit Husam [id number] Com mychal 420055 ty Health 2019-10-04 2019-10-04 [facility] / Legacy 00:00:00 00:00:00 Visit Husam [id number] Com mychal 786846 ty Health 2019-10-04 2019-10-04 Office Zahraa [facility] Enco unter/ Legacy 00:00:00 00:00:00 Visit Nkechi [place] 524478 2355 Communi Tai Britt 718628 ty Health 2019-10-04 2019-10-04 In-person Husam [facility] Adult [id number] Legacy 00:00:00 00:00:00 encounter [place], [place] Medicine 911 07 [facility] Ritchie Moore Tai ty Health 2019-10-02 2019-10-02 Office OPHELIA Oconnor VERO Encount er/ Legacy 00:00:00 00:00:00 Visit Marele [id number] Com mychal 952663 ty Health 2019-06-07 2019-06-07 Office VERO Vital Encounter / Legacy 00:00:00 00:00:00 Visit Husam [id number] Com mychal 642176 ty Health 2019-06-07 2019-06-07 Office VERO Vital Encounter / Legacy 00:00:00 00:00:00 Visit Husam [id number] Com mychal 100784 ty Health 2019-06-07 2019-06-07 Office VERO Vital Encounter / Legacy 00:00:00 00:00:00 Visit Husam [id number] Com mychal 794282 ty Health 2019-06-07 2019-06-07 Office OPHELIA Garcia OPHELIA Encounte r/ Legacy 00:00:00 00:00:00 Visit Palmer [id number] Com mychal 908503 ty Health 2019-06-07 2019-06-07 Office VERO Vital Encounter / Legacy 00:00:00 00:00:00 Visit Husam [id number] Com mychal 878231 ty Health 2019-06-07 2019-06-07 Office [facility]co unter/ Legacy 00:00:00 00:00:00 Visit Nkechi [place] 705147 3604 Communi 246279 ty Health 2019-06-07 2019-06-07 In-person Husam [facility] Adult [id number] Legacy 00:00:00 00:00:00 encounter Nan, [place] Medicine 907 11 Communi ty Health 2019-06-06 2019-06-06 Office VERO [place] Encounter/ Legacy 00:00:00 00:00:00 Visit Meka [id number] Com mychal 891861 ty Health 2019-04-19 2019-04-19 Office Status, [facility]/ Legacy 00:00:00 00:00:00 Visit [id number] Com mychal 954345 ty Health 2019-02-22 2019-02-22 Outpatient [facility] 24 72992 Common 14:00:00 14:00:00 t [facility] 2019-02-08 2019-02-08 Office VERO Vital Encounter / Legacy 00:00:00 00:00:00 Visit Husam [id number] Com mychal 568278 ty Health 2019-02-08 2019-02-08 Office OPHELIA Vital OPHELIA Encounter / Legacy 00:00:00 00:00:00 Visit Husam [id number] Com mychal 280853 ty Health 2019-02-08 2019-02-08 [facility] / Legacy 00:00:00 00:00:00 Visit Husam [id number] Com mychal 860615 ty Health 2019-02-08 2019-02-08 Office [facility] Encounter / Legacy 00:00:00 00:00:00 Visit Husam [id number] Com mychal 419402 ty Health 2019-02-08 2019-02-08 [facility] En[facility] / Legacy 00:00:00 00:00:00 Visit Husam [id number] Com mychal 287151 ty Health 2019-02-08 2019-02-08 Office Husam Vital [facility] Enco unter/ Legacy 00:00:00 00:00:00 Visit Valentine Lucas 1868 060843 Communi 293328 ty Health 2019-02-08 2019-02-08 In-person Husam [facility] Adult [id number] Legacy 00:00:00 00:00:00 encounter Valentine Lucas [facility] 9 0314 Communi ty Health 2019-02-05 2019-02-05 Office VERO O[facility] [facility] Encount er/ Legacy 00:00:00 00:00:00 Visit Marlee [id number] Com mychal 158721 ty Health 2019-02-02 2019-02-02 Office Elvin, VERO JACINTO Encount er/ Legacy 00:00:00 00:00:00 Visit Marlee [id number] Com mychal 024585 ty Health 2018-12-29 2018-12-29 Office Elvin, OPHELIA OPHELIA Encount er/ Legacy 00:00:00 00:00:00 Visit Marlee [id number] Com mychal 112329 ty Health 2018-12-25 2018-12-25 Office ElvinMarlee [facility] Encounter/ Legacy 00:00:00 00:00:00 Visit PearcePhi kay [id number] Communi 601962 ty Health 2018-12-25 2018-12-25 Office Zahraa, VERO [facility] Encounter / Legacy 00:00:00 00:00:00 Visit Husam [id number] Com mychal 628533 ty Health 2018-12-22 2018-12-22 Office Elvin, [facility]ERO JAC[facility] Encount er/ Legacy 00:00:00 00:00:00 Visit Marlee [id number] Com mychal 044346 ty Health 2018-09-28 2018-09-28 Office Nemandrew, [facility] Encounter / Legacy 00:00:00 00:00:00 Visit Husam [id number] Com mychal 386038 ty Health 2018-09-28 2018-09-28 Office Status, Fax [facility] Encoun ter/ Legacy 00:00:00 00:00:00 Visit [id number] Com mychal 272889 ty Health 2018-09-26 2018-09-26 Office Nemdaviek, OPHELIA [facility] Encounter / Legacy 00:00:00 00:00:00 Visit Husam [id number] Com mychal 060431 ty Health 2018-09-26 2018-09-26 Office Nemdaviek, OPHELIA [facility] Encounter / Legacy 00:00:00 00:00:00 Visit Husam [id number] Com mychal 283563 ty Health 2018-09-26 2018-09-26 Office Nemdaviek, OPHELIA [facility] Encounter / Legacy 00:00:00 00:00:00 Visit Husam [id number] Com mychal 240907 ty Health 2018-09-26 2018-09-26 Office NemdaviekVERO Encounter / Legacy 00:00:00 00:00:00 Visit Husam [id number] Com mychal 586993 ty Health 2018-09-26 2018-09-26 Office ZahraaHusam Enco unter/ Legacy 00:00:00 00:00:00 Visit Sisi Obrien [id number] Communi 567877 ty Health 2018-09-26 2018-09-26 In-person Zahraa Hus[facility] Adult [id number] Legacy 00:00:00 00:00:00 encounter Sisi Obrien [facility] 810 30 Communi ty Health 2018-09-25 2018-09-25 Office VERO Vital Encounter / Legacy 00:00:00 00:00:00 Visit Husam [id number] Com mychal 763594 ty Health 2018-09-23 2018-09-23 Office VERO [place] Encount er/ Legacy 00:00:00 00:00:00 Visit Marlee [id number] Com mychal 487621 ty Health 2018-09-07 2018-09-07 Office Marlee [place] Encounter/ Legacy 00:00:00 00:00:00 Visit Luci Ríos [id number] Communi 708080 ty Health 2018-05-05 2018-05-05 Office [facility] Encoun ter/ Legacy 00:00:00 00:00:00 Visit Marcelle [id number] Com mychal 600419 ty Health 2018-02-21 2018-02-21 Office Status, Fax [facility] Encoun ter/ Legacy 00:00:00 00:00:00 Visit [id number] Com mychal 665127 ty Health 2018-02-21 2018-02-21 Office Status, Fax [facility] Encoun ter/ Legacy 00:00:00 00:00:00 Visit [id number] Com mychal 937767 ty Health 2018-02-21 2018-02-21 Office Status, Fax [facility] Encoun ter/ Legacy 00:00:00 00:00:00 Visit [id number] Com mychal 798757 ty Health 2018-02-21 2018-02-21 Office VERO Vital Encounter / Legacy 00:00:00 00:00:00 Visit Husam [id number] Com mychal 628669 ty Health 2018-02-21 2018-02-21 Office VERO Vital Encounter / Legacy 00:00:00 00:00:00 Visit Husam [id number] Com mychal 143494 ty Health 2018-02-21 2018-02-21 Office Husam Vital Enco unter/ Legacy 00:00:00 00:00:00 Visit [place] [id number] Ema Gupta 41011 0 ty [place], [facility] 2018-02-21 2018-02-21 In-person Husam [place] [facility] [place] [id number] Legacy 00:00:00 00:00:00 encounter [place] [facility] [phone] Ema Gupta [facility] 2018-02-14 2018-02-14 Office [facility] OPHELIA OPHELIA Encoun ter/ Legacy 00:00:00 00:00:00 Visit jaron, [id number] Com mychal [facility] [id number] Health 2018-02-08 2018-02-08 Office [facility] [facility] Encoun [address]/ Legacy 00:00:00 00:00:00 Visit Marcelle [id number] Com mychal 740241 ty Health 2018-02-07 2018-02-07 Office VERO Vital Encounter / Legacy 00:00:00 00:00:00 Visit Husam [id number] Com mychal 034814 ty Health 2018-02-07 2018-02-07 Office Husam Vital Enco unter/ Legacy 00:00:00 00:00:00 Visit Leigha Dumont [id number] Communi [id number] Health 2018-01-25 2018-01-25 Office VERO Hugo Encounter/ Legacy 00:00:00 00:00:00 Visit Verito [id number] C ommuni [id number] Health 2018-01-25 2018-01-25 Office VERO Zarate Encounte r/ Legacy 00:00:00 00:00:00 Visit Vanessa [id number] Com mychal 462212 ty Health 2018-01-17 2018-01-17 Office VERO Vital Encounter / Legacy 00:00:00 00:00:00 Visit Husam [id number] Com mychal 914322 ty Health 2018-01-17 2018-01-17 Office Jose Lui En counter/ Legacy 00:00:00 00:00:00 Visit Marcelle Rosas [id number] Communi 254653 ty Health 2017-10-26 2017-10-[address] Encoun [address]/ Legacy 00:00:00 00:00:00 Visit Marcelle [id number] Com mychal 861235 ty Health 2017-10-25 2017-10-[address]as Encoun [address]/ Legacy 00:00:00 00:00:00 Visit Marcelle [id number] Com mychal 092593 ty Health 2017-10-24 2017-10-24 Office VERO Cameron Encounter / Legacy 00:00:00 00:00:00 Visit [place] [id number] Com mychal 747105 ty Health 2017-10-13 2017-10-13 Office VERO Vital Encounter / Legacy 00:00:00 00:00:00 Visit Husam [id number] Com mychal 052779 ty Health 2017-10-13 2017-10-13 Office VERO Hugo Encounter/ Legacy 00:00:00 00:00:00 Visit Luann [id number] Co mmuni 630112 ty Health 2017-10-13 2017-10-13 Office VERO Vital Encounter / Legacy 00:00:00 00:00:00 Visit Husam [id number] Com mychal 307370 ty Health 2017-10-13 2017-10-13 Office VERO Vital Encounter / Legacy 00:00:00 00:00:00 Visit Husam [id number] Com mychal 624656 ty Health 2017-10-13 2017-10-13 Office Husam Vital Enco unter/ Legacy 00:00:00 00:00:00 Visit Nkechi [place] [id number] [facility] Rakesh [place] 637779 ty Juan [facility] 2017-10-13 2017-10-13 In-person Husam Vital [facility] Adult [id number] Legacy 00:00:00 00:00:00 encounter Esdras [place] Medicine 711 16 [facility] [place] Cameron ty Juan A [facility] 2017-10-12 2017-10-12 Office [facility] Encoun ter/ Legacy 00:00:00 00:00:00 Visit jaron [id number] Com mychal Choice [id number] [facility] 2017-07-05 2017-07-05 Office Husam Vital [facility] Enco unter/ Legacy 00:00:00 00:00:00 Visit Ema Pillai [phone] [id number] [facility] CameronAngeles 733305 [facility] FonsecaAmanda 2017-06-29 2017-06-29 Office Husam Vital [facility] Enco unter/ Legacy 00:00:00 00:00:00 Visit Rick Velazcoika 03561 [id number] [facility] [id number] [facility] 2017-06-29 2017-06-29 Office Zahraa [facility] Encounter / Legacy 00:00:00 00:00:00 Visit Husam [id number] Com mychal [id number] [facility] 2017-06-29 2017-06-29 [facility] Legacy [facility]:00:00 00:00:00 Visit Husam [id number] Com mychal [id number] [facility] 2017-06-29 2017-06-29 Office Husam Vital [facility] Enco unter/ Legacy 00:00:00 00:00:00 Visit Nkechi [place] [id number] [facility] [id number] [facility] 2017-06-29 2017-06-29 In-person Husam Vital [facility] Adult [id number] Legacy 00:00:00 00:00:00 encounter Esdras [place] Medicine 708 02 [facility] 2017-06-28 2017-06-[facility] Legacy 00:00:00 00:00:00 Visit jaron [id number] Com mychal Choice 365018 ty Health 2017-06-20 2017-06-20 Office EstrellaVERO morales Encounter / Legacy 00:00:00 00:00:00 Visit Husam [id number] Com mychal 330682 ty Health 2017-06-17 2017-06-17 Office EstrellaVERO morales Encounter / Legacy 00:00:00 00:00:00 Visit Husam [id number] Com mychal 146628 ty Health 2017-06-17 2017-06-17 Office EstrellaVERO morales Encounter / Legacy 00:00:00 00:00:00 Visit Husam [id number] Com mychal 710000 ty Health 2017-06-17 2017-06-17 Office Husam Vital Enco unter/ Legacy 00:00:00 00:00:00 Visit Iesha Lucas [id number] Communi 164224 Health 2017-06-17 2017-06-17 In-person ZahraaHusam [facility] [place] [id number] Legacy 00:00:00 00:00:00 encounter Iesha Lucas Medicine 707 21 Communi ty Health 2017-06-14 2017-06-14 [address]ACINTO Encoun ter/ Legacy 00:00:00 00:00:00 Visit jaron [id number] Com mychal Choice 646848 ty Health 2017-06-09 2017-06-09 Office VERO Rosas Encoun ter/ Legacy 00:00:00 00:00:00 Visit Marcelle [id number] Com mychal 860367 ty Health 2017-06-08 2017-06-08 Office VERO Rosas Encoun ter/ Legacy 00:00:00 00:00:00 Visit Marcelle [id number] Com mychal 295706 ty Health 2017-05-30 2017-05-30 Office Ashutosh JACINTO Encounter/ Legacy 00:00:00 00:00:00 Visit Kyra [id number] Co obed Morocho 863421 ty Health 2017-05-30 2017-05-30 Office Ashutosh L[facility] Encounter/ Legacy 00:00:00 00:00:00 Visit Kyra [id number] Co obed Morocho [id number] [facility] 2017-05-27 2017-05-27 Office VERO Vital Encounter / Legacy 00:00:00 00:00:00 Visit Husam [id number] Com mychal 220469 [facility] 2017-05-26 2017-05-26 Office Marcelle Rosas [facility] Encounter/ Legacy 00:00:00 00:00:00 Visit Razbrendasean Beau [id number] Communi 458351 Health 2017-05-25 2017-05-25 Office VERO Vital LC Encounter / Legacy 00:00:00 00:00:00 Visit Husam [id number] Com mychal [id number] [facility] 2017-05-25 2017-05-25 Office VERO Vital Encounter / Legacy 00:00:00 00:00:00 Visit Husam [id number] Com mychal [id number] [facility] 2017-05-25 2017-05-25 [address]H Encoun ter/ Legacy 00:00:00 00:00:00 Visit Marcelle [id number] Com mychal 994607 [facility] 2017-05-24 2017-05-24 Office Shaye Boyd [facility] Enco unter/ Legacy 00:00:00 00:00:00 Visit Polina Neal [id number] Charisma Lugo 089259 Jennifer Beau [facility] 2017-05-18 2017-05-18 Office Ashutosh PHAM [facility] Encounter/ Legacy 00:00:00 00:00:00 Visit Kyra [id number] Co obed Morocho [id number] [facility] 2017-05-13 2017-05-13 Office Husam Vital [facility] Enco unter/ Legacy 00:00:00 00:00:00 Visit Zee Rodriguez [id number] Cara Ray [id number] [facility] 2017-04-22 2017-04-22 Office Bailee Cruz [facility] Encounter/ Legacy 00:00:00 00:00:00 Visit Baltazar Davison [id number] [facility] 024[facility] 2017-04-22 2017-04-22 Office Saman OPHELIAFransisca LC Encounter / Legacy 00:00:00 00:00:00 Visit Baltazar [id number] Com mychal 678948 ty Health 2017-04-19 2017-04-19 Office Zahraa OPHELIAFransisca OPHELIA Encounter / Legacy 00:00:00 00:00:00 Visit Husam [id number] Com mychal 574973 ty Health 2017-04-19 2017-04-19 Office Zahraa OPHELIAFransisca OPHELIA Encounter / Legacy 00:00:00 00:00:00 Visit Husam [id number] Com mychal 650802 ty Health 2017-04-19 2017-04-19 Office Husam Vital OPHELIAFransisca OPHELIA Enco unter/ Legacy 00:00:00 00:00:00 Visit Nkechi [place] [id number] 2388 Communi 352802 Health 2017-04-19 2017-04-19 In-person Husam Vital [facility] [place] [id number] Legacy 00:00:00 00:00:00 encounter Nkechi [place] Medicine 705 23 Communi ty Health 2017-04-18 2017-04-18 Office [facility] OPHELIA LC Encoun ter/ Legacy 00:00:00 00:00:00 Visit jaron [id number] Com mychal Choice 091446 ty Health 2017-03-11 2017-03-11 Office Zahraa Husam OPHELIAFransisca OPHELIA Enco unter/ Legacy 00:00:00 00:00:00 Visit Polina Neal [id number] Communi 558126 ty Health 2017-03-01 2017-03-01 Office ZahraaVERO Encounter / Legacy 00:00:00 00:00:00 Visit Husam [id number] Com mychal 309460 ty Health 2017-02-17 2017-02-17 Office BlaineVERO Encounter/ Legacy 00:00:00 00:00:00 Visit Malu [id number] Marjorie ommuni 170957 ty Health 2016-12-09 2016-12-09 Office BlaineVERO Encounter/ Legacy 00:00:00 00:00:00 Visit Malu [id number] C ommuni 509999 ty Health 2016-11-02 2016-11-02 Office VERO Vital [facility] Encounter / Legacy 00:00:00 00:00:00 Visit Husam [id number] Com mychal 056412 ty Health 2016-11-02 2016-11-02 Office VERO Vital [facility] Encounter / Legacy 00:00:00 00:00:00 Visit Husam [id number] Com mychal 565356 ty Health 2016-11-02 2016-11-02 Office Husam [facility]ital [facility]/ Legacy 00:00:00 00:00:00 Visit [place] Nkechi [id number] Communi 280807 Health 2016-11-02 2016-11-02 In-person Husam Vital [facility] Adult [id number] Legacy 00:00:00 00:00:00 encounter Nan Nkechi Medicine 612 06 Communi Health 2016-10-19 2016-10-19 [facility] / Legacy 00:00:00 00:00:00 Visit Husam [id number] Com mychal 785878 ty Health 2016-10-19 2016-10-19 Office VERO Vital [facility] Encounter / Legacy 00:00:00 00:00:00 Visit Husam [id number] Com mychal 338106 Health 2016-09-21 2016-09-21 Office Tera [facility] En[facility]/ Legacy 00:00:00 00:00:00 Visit Tara [id number] Com mychal 168254 ty Health 2016-08-31 2016-08-31 Office Blaine [facility] En[facility]/ Legacy 00:00:00 00:00:00 Visit Malu [id number] C ommuni [id number] Health 2016-07-09 2016-07-09 Office Status, Fax [facility] Encoun ter/ Legacy 00:00:00 00:00:00 Visit [id number] Com mychal 026393 ty Health 2016-07-09 2016-07-09 Office Status, Fax [facility] Encoun ter/ Legacy 00:00:00 00:00:00 Visit [id number] Com mychal 447520 ty Health 2016-07-07 2016-07-07 Office Zahraa VERO JACINTO Encounter / Legacy 00:00:00 00:00:00 Visit Husam [id number] Com mychal 886489 ty Health 2016-07-07 2016-07-07 Office ZahraaVERO Encounter / Legacy 00:00:00 00:00:00 Visit Husam [id number] Com mychal 549888 ty Health 2016-07-07 2016-07-07 Office Zahraa VERO JACINTO Encounter / Legacy 00:00:00 00:00:00 Visit Husam [id number] Com mychal 342555 ty Health 2016-07-07 2016-07-07 Office Husam Vital Enco unter/ Legacy 00:00:00 00:00:00 Visit Nkechi [place] [id number] [facility] [id number] Health 2016-07-07 2016-07-07 In-person Husam [facility] Adult [id number] Legacy 00:00:00 00:00:00 encounter Nkechi [place] Medicine 608 10 [facility] ty Health 2016-07-01 2016-07-01 Office PerdomoVERO Encounter/ Legacy 00:00:00 00:00:00 Visit Remy [id number] Com mychal 628766 ty Health 2016-06-28 2016-06-28 Office YoelVERO Encounter / Legacy 00:00:00 00:00:00 Visit Chiara [id number] Com mychal 453963 ty Health 2016-03-24 2016-03-24 Office VERO Vital Encounter / Legacy 00:00:00 00:00:00 Visit Husam [id number] Com mychal 783985 ty Health 2016-03-24 2016-03-24 Office VERO Vital Encounter / Legacy 00:00:00 00:00:00 Visit Husam [id number] Com mychal 080008 ty Health 2016-03-24 2016-03-24 Office Husam Vital Enco unter/ Legacy 00:00:00 00:00:00 Visit Nkechi [place] [id number] 4780 Communi 493432 ty Health 2016-03-24 2016-03-24 Office VERO Vital Encounter / Legacy 00:00:00 00:00:00 Visit Husam [id number] Com mychal 433177 ty Health 2016-03-24 2016-03-24 In-person Husam [facility] Adult [id number] Legacy 00:00:00 00:00:00 encounter Nkechi [place] Medicine 604 27 [facility] ty Health 2016-03-08 2016-03-08 Office VERO Hunt Encounter / Legacy 00:00:00 00:00:00 Visit Dilma [id number] Com mychal 591329 ty Health 2016-03-08 2016-03-08 Office VERO Perdomo Encounter/ Legacy 00:00:00 00:00:00 Visit Remy [id number] Com mychal 510110 ty Health 2016-03-08 2016-03-08 Office Remy Perdomo [facility] Encou nter/ Legacy 00:00:00 00:00:00 Visit Jo Valle [id number] [facility] 378835 ty Health 2016-03-08 2016-03-08 In-person Remy Perdomo [facility] Adult 3 [id number] Legacy 00:00:00 00:00:00 encounter Jo Valle Medicine 60 411 [facility] Health 2016-02-26 2016-02-26 Office VERO Perdomo Encounter/ Legacy 00:00:00 00:00:00 Visit Remy [id number] Com mychal 564752 ty Health 2016-01-27 2016-01-27 Office VERO Vital Encounter / Legacy 00:00:00 00:00:00 Visit Husam [id number] Com mychal 676929 ty Health 2016-01-22 2016-01-22 Office VERO Diallo Encounter / Legacy 00:00:00 00:00:00 Visit Chiara [id number] Com mychal 849892 ty Health 2015-12-02 2015-12-02 Office VERO [place] Encounter/ Legacy 00:00:00 00:00:00 Visit Nkechi [id number] Com mychal 042474 ty Health 2015-10-27 2015-10-27 Office Yoel, VERO [facility] Encounter / Legacy 00:00:00 00:00:00 Visit Chiara [id number] Com mychal 943349 ty Health 2015-09-05 2015-09-05 Office Zahraa, VERO [facility] Encounter / Legacy 00:00:00 00:00:00 Visit Husam [id number] Com mychal 691847 ty Health 2015-09-05 2015-09-05 Office VERO Vital LC Encounter / Legacy 00:00:00 00:00:00 Visit Husam [id number] Com mychal 388066 ty Health 2015-09-03 2015-09-03 Office VERO Vital LC Encounter / Legacy 00:00:00 00:00:00 Visit Husam [id number] Com mychal 069290 ty Health 2015-07-14 2015-07-14 Office VERO Vital LC Encounter / Legacy 00:00:00 00:00:00 Visit Husam [id number] Com mychal 916530 ty Health 2015-07-02 2015-07-02 Office OPHELIA Rinaldi LC Encounter/ Legacy 00:00:00 00:00:00 Visit Odin [id number] Com mychal 037269 ty Health 2015-07-02 2015-07-02 Office VERO Rodriguez LC Encounter / Legacy 00:00:00 00:00:00 Visit Zee [id number] C ommuni 392874 ty Health 2015-07-01 2015-07-01 Office VERO Rodriguez [facility] Encounter / Legacy 00:00:00 00:00:00 Visit Zee [id number] C ommuni 165020 ty Health 2015-07-01 2015-07-01 Office OPHELIA Vital LC Encounter / Legacy 00:00:00 00:00:00 Visit Husam [id number] Com mychal 311069 ty Health 2015-07-01 2015-07-01 Office Zahraa Husam OPHELIA OPHELIA Enco unter/ Legacy 00:00:00 00:00:00 Visit Nkechi [place] [id number] 3820 Communi 013138 ty Health 2015-07-01 2015-07-01 In-person Husam Vital [facility] [place] [id number] Legacy 00:00:00 00:00:00 encounter Nkechi [place] 508 04 Maikol ty Health 2015-06-17 2015-06-17 Office VERO Vital Encounter / Legacy 00:00:00 00:00:00 Visit Husam [id number] Com mychal 316580 ty Health 2015-06-17 2015-06-17 Office VERO Vital Encounter / Legacy 00:00:00 00:00:00 Visit Husam [id number] Com mychal 037237 ty Health 2015-06-17 2015-06-17 Office VERO Vital Encounter / Legacy 00:00:00 00:00:00 Visit Husam [id number] Com mychal 314306 ty Health 2015-06-17 2015-06-17 Office VERO Vital Encounter / Legacy 00:00:00 00:00:00 Visit Husam [id number] Com mychal 678604 ty Health 2015-03-18 2015-03-18 Office VERO Vital Encounter / Legacy 00:00:00 00:00:00 Visit Huasm [id number] Com mychal 243947 ty Health 2015-03-18 2015-03-18 Office VERO Rodriguez Encounter / Legacy 00:00:00 00:00:00 Visit Zee [id number] Marjorie ommuni 431456 ty Health 2015-03-18 2015-03-18 Office VERO Rodriguez Encounter / Legacy 00:00:00 00:00:00 Visit Zee [id number] C ommuni 081917 ty Health 2015-03-18 2015-03-18 Office OPHELIA Vital OPHELIA Encounter / Legacy 00:00:00 00:00:00 Visit Husam [id number] Com mychal 858500 ty Health 2015-03-18 2015-03-18 Office Husam Vital OPHELIA Enco unter/ Legacy 00:00:00 00:00:00 Visit Lexy Ward 557283 9092 [address] 476324 ty Health 2015-03-18 2015-03-18 In-person Husam [facility] Adult [id number] Legacy 00:00:00 00:00:00 encounter Lexy Ward 504 21 [address] ty Health 2015-03-17 2015-03-17 Office VERO Vital Encounter / Legacy 00:00:00 00:00:00 Visit Husam [id number] Com mychal 616066 ty Health 2015-03-17 2015-03-17 Office VERO Sparks Encounter/ Legacy 00:00:00 00:00:00 Visit Sammie [id number] Co mmuni 716347 ty Health 2015-03-15 2015-03-15 Office VERO Sparks Encounter/ Legacy 00:00:00 00:00:00 Visit Sammie [id number] Co mmuni 027990 ty Health 2015-03-13 2015-03-13 Office Lisa JACINTO OPHELIA Encoun ter/ Legacy 00:00:00 00:00:00 Visit Deidra ramon [id number] Co mmuni 213397 ty Health 2015-03-03 2015-03-03 Office OPHLEIA Cespedes OPHELIA Encounter/ Legacy 00:00:00 00:00:00 Visit Elodia [id number] Com mychal 654025 ty Health 2015-03-03 2015-03-03 Office VERO Cespedes Encounter/ Legacy 00:00:00 00:00:00 Visit Elodia [id number] Com mychal 937460 ty Health 2015-03-03 2015-03-03 Office VERO Cespedes Encounter/ Legacy 00:00:00 00:00:00 Visit Elodia [id number] Com mychal 112989 ty Health 2015-03-03 2015-03-03 Office Elodai Cespedes OPHELIA Enc ounter/ Legacy 00:00:00 00:00:00 Visit Atif Harris [id number] Communi 846522 ty Health 2015-03-03 2015-03-03 Office VERO Vital Encounter / Legacy 00:00:00 00:00:00 Visit Husam [id number] Com mychal 129565 ty Health 2011-11-16 2011-11-16 Emergency nullFlavo [id number] 5478 [facility] 10:30:00 13:00:00 r [place] 00 l Oscar 2011-11-16 2011-11-16 Emergency nullFlavo [id number] 1817 [facility] 10:30:00 13:00:00 r [place] 00 l Oscar Results Test Description Test Time Test Comments Results Result Comments Source URINALYSIS COMPLETE 2023-05-14 12:31:00 Test Item Value Reference Range Interpretation Comme nts UA COLOR (test code = COLU) Ruth YELLOW UA APPEARANCE (test code = Cloudy CLEAR APPU) UA GLUCOSE DIPSTICK (test NEGATIVE NEGATIVE code = DGLUU) UA BILIRUBIN DIPSTICK (test NEGATIVE NEGATIVE code = BILU) UA KETONE DIPSTICK (test Trace NEGATIVE A code = KETU) UA SPECIFIC GRAVITY (test 1.024 1.001-1.030 code = SGU) UA BLOOD DIPSTICK (test code NEGATIVE NEGATIVE = CELSA) UA PH DIPSTICK (test code = 6.0 5.0-9.0 IZABELA) UA PROTEIN DIPSTICK (test 2+ NEGATIVE A code = PROU) UA UROBILINOGEN DIPSTICK NEGATIVE See_Comment [A utomated message] The system (test code = URO) which gene rated this result transmitted ref erence range: <=1.0. The refe rence range was not used to int erpret this result as kirti l/abnormal. UA NITRITE DIPSTICK (test NEGATIVE NEGATIVE code = DONNA) UA ASCORBIC ACID DIPSTICK POSITIVE A Hi gh levels of ascorbic acid (test code = AAU) may cause false negativeresults for blood, gluc ose & nitrite. UA LEUKOCYTE ESTERASE 3+ NEGATIVE A DIPSTICK (test code = LEUU) UA WBC (test code = WBCU) 51-100 /HPF 0-5 A UA RBC (test code = RBCU) 0-5 /HPF 0-5 UA EPITHELIAL CELLS (test OCC /LPF NONE-FEW code = EPIU) UA BACTERIA (test code = None /HPF NONE SEEN BACU) UA CALCIUM OXALATE CRYSTALS OCC /HPF NONE SEEN (test code = CAOXU) UA AMORPHOUS SEDIMENT (test RARE /HPF NONE SEEN code = AMORU) CBC W/AUTO [id number] 12:21:00 Test Item Value Reference Range Interpretation Comments WHITE BLOOD CELL (test code = 5.9 x10 3/uL 3.2-11.5 N WBC) RED BLOOD CELL (test code = 3.76 x10(6)/m 3.70-5.10 N RBC) HEMOGLOBIN (test code = HGB) 13.3 g/dL 12.0-15.0 N HEMATOCRIT (test code = HCT) 41.2 % 35.7-44.8 N MEAN CELL VOLUME (test code = 110 fL 80-100 H MCV) MEAN CELL HGB (test code = MCH) 35.4 pg 26.2-33.8 H MEAN CELL HGB CONCENTRATION 32.3 g/dL 30.0-34.0 N (test code = MCHC) RED CELL DISTRIBUTION WIDTH 12.5 % 11.3-14.5 N (test code = RDW) PLATELET COUNT (test code = 170 x10 3/uL 130-408 N PLT) MEAN PLATELET VOLUME (test code 11.1 fL 8.6-12.6 N = MPV) NEUTROPHIL % (test code = NT%) 51.4 % 40.0-70.0 N LYMPHOCYTE % (test code = LY%) 37.3 % 20-40 N MONOCYTE % (test code = MO%) 7.9 % 1-10 N EOSINOPHIL % (test code = EO%) 2.4 % 0.0-5.0 N BASOPHIL % (test code = BA%) 0.3 % 0.0-1.0 N NUCLEATED RBC % (test code = 0.0 % 0.0-0.9 N NRBC%) NEUTROPHIL # (test code = NT#) 3.0 x10 3/uL 1.6-7.2 N LYMPHOCYTE # (test code = LY#) 2.18 x10 3/uL 1.1-2.7 N MONOCYTE # (test code = MO#) 0.5 x10 3/uL 0.3-0.8 N EOSINOPHIL # (test code = EO#) 0.1 x10 3/uL 0.0-0.5 N IMMATURE GRANULOCYTE % (test 0.7 % 0.0-2.0 N code = IG%) BASOPHIL # (test code = BA#) 0.0 x10 3/uL 0.0-0.1 N COMPREHENSIVE METABOLIC [id number] 12:18:00 Test Item Value Reference Range Interpretation Comments SODIUM (test code 140 mmol/L 135-145 N = NA) POTASSIUM (test 4.4 mmol/L 3.6-5.0 N code = K) CHLORIDE (test 105 mmol/L 101-111 N code = CL) CARBON DIOXIDE 29 mmol/L 21-31 N (test code = CO2) GLUCOSE (test code 107 mg/dl 70-100 H = GLU) BLOOD UREA 11 mg/dl 6-20 N NITROGEN (test code = BUN) GLOMERULAR >=60 max >60 The Glomerular FILTRATION RATE estimate Filtration R ate is a (test code = GFR) calculated parameterbased on serum Creatinin e, patient age and sex. GFR valuesless than 60 mL/min/1.73 square meters are priscila cative ofChronic Kidne y Disease. Values less than 15 mL/min/1.73squa re meters indicate Kidney failure. The calculation for GFR is based on the CK D-EPI (2020) calculat ion. This formulais race indifferent and is the recommended formula for GFR by the National Kidney Foundation for Adults.The GFR will not calculate i f the sex is unknown or if thepatient's ag e is <18 years. CREATININE (test 0.72 mg/dL 0.44-1.03 N code = CREAT) TOTAL PROTEIN 5.6 g/dL 6.7-8.2 L (test code = PROT) ALBUMIN (test code 3.0 g/dL 3.2-5.5 L = ALB) CALCIUM (test code 8.7 mg/dL 8.5-10.5 N = CA) BILIRUBIN TOTAL 0.60 mg/dL 0.2-1.3 N (test code = BILT) SGOT/AST (test 11 U/L 10-42 N code = AST) SGPT/ALT (test 12 U/L 10-60 N code = ALT) ALKALINE 60 U/L 42-121 N PHOSPHATASE (test code = ALKP) INDEX HEMOLYSIS 0 Index/DL See_Comment [Automated message] (test code = The system [employer] HEMINDEX) generated this result transmitted ref erence range: 1 NORMAL . The reference range was not used to int erpret this result as normal/abnormal . INDEX ICTERIC 1 Index/DL See_Comment [Automated me ssage] (test code = The system [employer] ICTINDEX) generated this result transmitted ref erence range: 1 NORMAL . The reference range was not used to int erpret this result as normal/abnormal . INDEX LIPEMIA 0 Index/DL See_Comment [Automated me ssage] (test code = The system [employer] LIPINDEX) generated this result transmitted ref erence range: 1 NORMAL . The reference range was not used to int erpret this result as normal/abnormal . URINALYSIS [id number] 18:06:00 Test Item Value Reference Range Interpretation Comments UA COLOR (test code = YELLOW YELLOW INSTRU MENT DOWN COLU) UA APPEARANCE (test HAZY CLEAR code = APPU) UA GLUCOSE DIPSTICK NEGATIVE NEGATIVE (test code = DGLUU) UA BILIRUBIN DIPSTICK NEGATIVE NEGATIVE (test code = BILU) UA KETONE DIPSTICK NEGATIVE NEGATIVE (test code = KETU) UA SPECIFIC GRAVITY 1.015 1.001-1.030 (test code = SGU) UA BLOOD DIPSTICK (test NEGATIVE NEGATIVE code = CELSA) UA PH DIPSTICK (test 7.0 5.0-9.0 code = IZABELA) UA PROTEIN DIPSTICK NEGATIVE NEGATIVE (test code = PROU) UA UROBILINOGEN NEGATIVE See_Comment [Automated message] DIPSTICK (test code = The sy stem which URO) generated this result transmitted ref erence range: <=1.0. T he reference range was not used to int erpret this result as normal/abnormal . UA NITRITE DIPSTICK NEGATIVE NEGATIVE (test code = DONNA) UA ASCORBIC ACID NEGATIVE DIPSTICK (test code = AAU) UA LEUKOCYTE ESTERASE 2+ NEGATIVE A DIPSTICK (test code = LEUU) UA WBC (test code = 6-10 /HPF 0-5 WBCU) UA RBC (test code = 0-5 /HPF 0-5 RBCU) UA EPITHELIAL CELLS MOD /LPF NONE-FEW (test code = EPIU) UA BACTERIA (test code 1+ /HPF NONE SEEN A = BACU) UA YEAST (test code = OCC /HPF NONE SEEN YEASTU) URINALYSIS [id number] 20:19:00 Test Item Value Reference Range Interpretation Comments UA COLOR (test code YELLOW YELLOW = COLU) UA APPEARANCE (test Turbid CLEAR code = APPU) UA GLUCOSE DIPSTICK NEGATIVE NEGATIVE (test code = DGLUU) UA BILIRUBIN NEGATIVE NEGATIVE DIPSTICK (test code = BILU) UA KETONE DIPSTICK NEGATIVE NEGATIVE (test code = KETU) UA SPECIFIC GRAVITY 1.019 1.001-1.030 (test code = SGU) UA BLOOD DIPSTICK NEGATIVE NEGATIVE (test code = CELSA) UA PH DIPSTICK (test 5.0 5.0-9.0 code = IZABELA) UA PROTEIN DIPSTICK 1+ NEGATIVE A (test code = PROU) UA UROBILINOGEN NEGATIVE See_Comment [Automated message] DIPSTICK (test code The syst em which = URO) generated this result transmitted ref erence range: <=1.0. T he reference range was not used to int erpret this result as normal/abnormal . UA NITRITE DIPSTICK POSITIVE NEGATIVE A (test code = DONNA) UA ASCORBIC ACID POSITIVE A High levels of DIPSTICK (test code ascorbic acid may = AAU) cause false negativeresults for blood, glucose & nitrite. UA LEUKOCYTE 3+ NEGATIVE A ESTERASE DIPSTICK (test code = LEUU) UA WBC (test code = 51-100 /HPF 0-5 A WBCU) UA RBC (test code = 0-5 /HPF 0-5 RBCU) UA EPITHELIAL CELLS MANY /LPF NONE-FEW A (test code = EPIU) UA BACTERIA (test 2+ /HPF NONE SEEN A code = BACU) URINALYSIS [id number] 07:16:00 Test Item Value Reference Range Interpretation Comments UA COLOR (test code YELLOW YELLOW = COLU) UA APPEARANCE (test HAZY CLEAR code = APPU) UA GLUCOSE DIPSTICK NEGATIVE NEGATIVE (test code = DGLUU) UA BILIRUBIN NEGATIVE NEGATIVE DIPSTICK (test code = BILU) UA KETONE DIPSTICK NEGATIVE NEGATIVE (test code = KETU) UA SPECIFIC GRAVITY 1.012 1.001-1.030 (test code = SGU) UA BLOOD DIPSTICK 1+ NEGATIVE (test code = CELSA) UA PH DIPSTICK (test 7.0 5.0-9.0 code = IZABELA) UA PROTEIN DIPSTICK NEGATIVE NEGATIVE (test code = PROU) UA UROBILINOGEN NEGATIVE See_Comment [Automated DIPSTICK (test code message] The system = URO) which generated this result transmitted reference range : <=1.0. The reference range was not used to interpret this result as normal/abnormal . UA NITRITE DIPSTICK NEGATIVE NEGATIVE (test code = DONNA) UA ASCORBIC ACID NEGATIVE DIPSTICK (test code = AAU) UA LEUKOCYTE 1+ NEGATIVE A ESTERASE DIPSTICK (test code = LEUU) UA WBC (test code = 0-5 /HPF 0-5 WBCU) UA RBC (test code = 0-5 /HPF 0-5 RBCU) UA EPITHELIAL CELLS MOD /LPF NONE-FEW (test code = EPIU) UA BACTERIA (test NONE SEEN /HPF NONE SEEN code = BACU) Cholesterol in LDL [Mass/volume] in Serum or [id number] 00:00:00 Test Item Value Reference Range Interpretation Comments Cholesterol in LDL [Mass/volume] in 141 Serum or Plasma (test code = 2088-11) [facility] plasma reagin antibody, [id number] 10:28:00 Test Item Value Reference Range Interpretation Comments rapid plasma reagin antibody, Non Reactive Non Reactive serum (test code = 5291-0) [facility], [id number] 10:28:00 Test Item Value Reference Range Interpretation Comments LDL cholesterol, serum (test code = 115 mg/dL 0-99 H 2088-11) [facility] low density bppongnjeuen2377-54-07 10:28:00 Test Item Value Reference Range Interpretation Comments very low density lipoproteins (test 58 mg/dL 5-40 H code = 2090-7) [facility]HDL cholesterol, [id number] 10:28:00 Test Item Value Reference Range Interpretation Comments HDL cholesterol, serum (test code = 32 mg/dL >39 L 2085-07) [facility]lycer[facility], serum, [id number] 10:28:00 Test Item Value Reference Range Interpretation Comments triglyceride, serum, fasting (test 331 mg/dL 0-149 H code = 2571-8) [facility]cholesterol, [id number] 10:28:00 Test Item Value Reference Range Interpretation Comments cholesterol, serum (test code = 205 mg/dL 100-199 H 2093-01) [facility] aminotransferase (SGPT), [id number] 10:28:00 Test Item Value Reference Range Interpretation Comments alanine aminotransferase (SGPT), serum 15 1/L 0-32 (test code = 1742-6) [facility] Healthaspartate aminotransferase (SGOT), galam4724-22-99 10:28:00 Test Item Value Reference Range Interpretation Comments aspartate aminotransferase (SGOT), 14 1/L 0-40 serum (test code = 1920-8) [facility] Mountainalkaline phosphatase, [id number] 10:28:00 Test Item Value Reference Range Interpretation Comments alkaline phosphatase, serum (test code 93 1/L 39-117 = 1783-0) [facility] Healthbilirubin, serum, [id number] 10:28:00 Test Item Value Reference Range Interpretation Comments bilirubin, serum, total (test code <0.2 mg/dL 0.0-1.2 = 1975-2) [facility] Healthalbumin/globulin ratio, [id number] 10:28:00 Test Item Value Reference Range Interpretation Comments albumin/globulin ratio, 1.4 (unknown unit) 1.2-2.2 serum (test code = 1759-0) [facility] Healthglobulin, [id number] 10:28:00 Test Item Value Reference Range Interpretation Comments globulin, serum (test code 2.8 (unknown unit) 1.5-4.5 = 2336-6) [facility] Healthalbumin, [id number] 10:28:00 Test Item Value Reference Range Interpretation Comments albumin, serum (test code = 1751-7) 4.0 g/dL 3.8-4.9 [facility]protein, total, [id number] 10:28:00 Test Item Value Reference Range Interpretation Comments protein, total, serum (test code = 6.8 g/dL 6.0-8.5 2885-2) [facility] Mountaincalcium, [id number] 10:28:00 Test Item Value Reference Range Interpretation Comments calcium, serum (test code = 1999-8) 9.2 mg/dL 8.7-10.3 [facility]carbon dioxide, venous [id number] 10:28:00 Test Item Value Reference Range Interpretation Comments carbon dioxide, venous blood (test 27 mmol/L 20-29 code = 7-1) [facility] Mountainchloride, [id number] 10:28:00 Test Item Value Reference Range Interpretation Comments chloride, serum (test code = 97 mmol/L 96-106 2075-0) [facility] Healthpotassium, [id number] 10:28:00 Test Item Value Reference Range Interpretation Comments potassium, serum (test code = 4.1 mmol/L 3.5-5.2 2823-3) [facility] Mountainsodium, vlsmt2039-01-49 10:28:00 Test Item Value Reference Range Interpretation Comments sodium, serum (test code = 2951-2) 139 mmol/L 134-144 [facility] Mountainurea nitrogen/creatinine ratio, [id number] 10:28:00 Test Item Value Reference Range Interpretation Comments urea nitrogen/creatinine 15 (unknown unit) 11-24 ratio, serum (test code = 3097-3) [facility] HealtheGFR if Cymlkuna7287-63-94 10:28:00 Test Item Value Reference Range Interpretation Comments eGFR if 102 mL/min/{1.73 m2} >59 (test code = 75974-4) [facility] MountainEstimated Glomerular Filtration Rate (calc)2020-11-18 10:28:00 Test Item Value Reference Range Interpretation Comments Estimated Glomerular 88 mL/min/{1.73 m2} >59 Filtration Rate (calc) (test code = 02550-6) [facility] Mountaincreatinine, [id number] 10:28:00 Test Item Value Reference Range Interpretation Comments creatinine, serum (test code = 0.74 mg/dL 0.57-1.00 2160-0) [facility] Mountainurea nitrogen, [id number] 10:28:00 Test Item Value Reference Range Interpretation Comments urea nitrogen, blood (test code = 11 mg/dL 8-27 3094-0) [facility]blood glucose, gdlfxh3514-48-14 10:28:00 Test Item Value Reference Range Interpretation Comments blood glucose, random (test code = 178 mg/dL 65-99 H 2339-0) [facility] Mountainimmature granulocytes, percentage of total cells, blood 2020-11-18 10:28:00 Test Item Value Reference Range Interpretation Comments immature granulocytes, percentage of 1 % total cells, blood (test code = 69377-8) [facility] Mountainbasophil count, [id number] 10:28:00 Test Item Value Reference Range Interpretation Comments basophil count, absolute (test 0.0 x10E3/uL 0.0-0.2 code = 20706-3) [facility] HealthEosinophil Absolute [id number] 10:28:00 Test Item Value Reference Range Interpretation Comments Eosinophil Absolute Count (test 0.1 X10E3/UL 0.0-0.4 code = 10309-5) [facility] Healthmonocyte count, blood, lbkcugnox3495-97-76 10:28:00 Test Item Value Reference Range Interpretation Comments monocyte count, blood, automated 0.5 X10E3/UL 0.1-0.9 (test code = 742-7) [facility]lymphocyte count, blood, xzyrtkthi6746-74-63 10:28:00 Test Item Value Reference Range Interpretation Comments lymphocyte count, blood, 1.3 X10E3/UL 0.7-3.1 automated (test code = 731-0) [facility] MountainAbsolute Jrbjzwoggvn3468-76-26 10:28:00 Test Item Value Reference Range Interpretation Comments Absolute Neutrophils (test code 5.6 X10E3/UL 1.4-7.0 = 96294-0) [facility] Healthbasophils as percent of blood agtayaxrdh8333-68-40 10:28:00 Test Item Value Reference Range Interpretation Comments basophils as percent of blood 0 % leukocytes (test code = 707-0) [facility] Healtheosinophils as percent of blood kydgsvosay0837-78-17 10:28:00 Test Item Value Reference Range Interpretation Comments eosinophils as percent of blood 1 % leukocytes (test code = 713-8) [facility] Healthmonocytes as percent of blood jdnztuhlzt6655-73-71 10:28:00 Test Item Value Reference Range Interpretation Comments monocytes as percent of blood 6 % leukocytes (test code = 5905-5) [facility]lymphocytes as percent of blood xyvqvoyngb3234-78-15 10:28:00 Test Item Value Reference Range Interpretation Comments lymphocytes as percent of blood 17 % leukocytes (test code = 736-9) [facility] Mountainneutrophils as percent of blood kolotncgvx1289-69-46 10:28:00 Test Item Value Reference Range Interpretation Comments neutrophils as percent of blood 75 % leukocytes (test code = 770-8) [facility] Mountainplatelet igwyh5957-75-29 10:28:00 Test Item Value Reference Range Interpretation Comments platelet count (test code = 194 X10E3/UL 150-450 777-3) [facility] Mountainred blood cell distribution [id number] 10:28:00 Test Item Value Reference Range Interpretation Comments red blood cell distribution width 11.9 % 11.7-15.4 (test code = 788-0) [facility] corpuscular hemoglobin concentration, [id number] 10:28:00 Test Item Value Reference Range Interpretation Comments mean corpuscular hemoglobin 35.3 G/DL 31.5-35.7 concentration, RBC (test code = 786-4) [facility] corpuscular hemoglobin, [id number] 10:28:00 Test Item Value Reference Range Interpretation Comments mean corpuscular hemoglobin, RBC 34.8 pg 26.6-33.0 H (test code = 785-6) [facility] corpuscular volume, [id number] 10:28:00 Test Item Value Reference Range Interpretation Comments mean corpuscular volume, RBC (test code 99 fL 79-97 H = 787-2) [facility] Mountainhematocrit, [id number] 10:28:00 Test Item Value Reference Range Interpretation Comments hematocrit, blood (test code = 4544-3) 40.5 % 34.0-46.6 [facility] Mountainhemoglobin, [id number] 10:28:00 Test Item Value Reference Range Interpretation Comments hemoglobin, blood (test code = 14.3 g/dL 11.1-15.9 718-7) [facility] Mountainerythrocyte (RBC) [id number] 10:28:00 Test Item Value Reference Range Interpretation Comments erythrocyte (RBC) count (test 4.11 X10E6/UL 3.77-5.28 code = 789-8) [facility] Mountainleukocyte count, suawq0855-66-41 10:28:00 Test Item Value Reference Range Interpretation Comments leukocyte count, blood (test 7.5 X10E3/UL 3.4-10.8 code = 6690-2) [facility] HealthT-helper cells (CD4) as percent of blood lymphocytes 2020-11-18 10:28:00 Test Item Value Reference Range Interpretation Comments T-helper cells (CD4) as percent of 26.9 % 30.8-58.5 L blood lymphocytes (test code = 8123-2) [facility] HealthT-helper cells (CD4) [id number] 10:28:00 Test Item Value Reference Range Interpretation Comments T-helper cells (CD4) count (test code 350 /UL 359-1519 L = 03075-7) [facility] HealthHIV-1RNA, serum, by PCR, xhtuzutjcnap7896-23-19 10:28:00 Test Item Value Reference Range Interpretation Comments HIV-1RNA, serum, by PCR, <20 copies/mL quantitative (test code = 95559-9) [facility] HealthCD4/CD8 lpptj4136-08-77 10:28:00 Test Item Value Reference Range Interpretation Comments CD4/CD8 ratio (test code 1.14 (unknown unit) 0.92-3.72 = 97308) [facility] MountainT-suppressor cells (CD8) as percent of blood lymphocytes 2020-11-18 10:28:00 Test Item Value Reference Range Interpretation Comments T-suppressor cells (CD8) as percent of 23.7 % 12.0-35.5 blood lymphocytes (test code = 3517) [facility] Healthabsolute [id number] 10:28:00 Test Item Value Reference Range Interpretation Comments absolute CD8 (test code = 308 (unknown unit) 402-346 82415) [facility] HealthHIV-1RNA, serum, by PCR, sghlaepzwvbe9800-44-31 10:28:00 Test Item Value Reference Range Interpretation Comments HIV-1RNA, serum, by PCR, <20 copies/mL quantitative (test code = 03513) [facility] HealthCD4/CD8 [id number] 10:28:00 Test Item Value Reference Range Interpretation Comments CD4/CD8 ratio (test code 1.14 (unknown unit) 0.92-3.72 = 55823) [facility] HealthT-suppressor cells (CD8) as percent of blood lymphocytes 2020-11-18 10:28:00 Test Item Value Reference Range Interpretation Comments T-suppressor cells (CD8) as percent of 23.7 % 12.0-35.5 blood lymphocytes (test code = 3517) [facility]absolute [id number] 10:28:00 Test Item Value Reference Range Interpretation Comments absolute CD8 (test code = 308 (unknown unit) [phone]) [facility] Mountainrapid plasma reagin antibody, wcjfy6534-21-14 10:39:00 Test Item Value Reference Range Interpretation Comments rapid plasma reagin antibody, Non Reactive Non Reactive serum (test code = 5291-0) [facility] Mountainhemoglobin A1C, blood, as % of total nssduonfdb7690-84-98 10:39:00 Test Item Value Reference Range Interpretation Comments hemoglobin A1C, blood, as % of total 6.3 % 4.8-5.6 H hemoglobin (test code = 4548-4) [facility] MountainLDL cholesterol, iglqv0642-74-58 10:39:00 Test Item Value Reference Range Interpretation Comments LDL cholesterol, serum (test code = 87 mg/dL 0-99 2088-1) [facility] low density aktwcirtosbl6464-70-18 10:39:00 Test Item Value Reference Range Interpretation Comments very low density lipoproteins (test 44 mg/dL 5-40 H code = 2091-7) [facility]HDL cholesterol, [id number] 10:39:00 Test Item Value Reference Range Interpretation Comments HDL cholesterol, serum (test code = 32 mg/dL >39 L 2084-9) [facility] Mountaintriglyceride, serum, [id number] 10:39:00 Test Item Value Reference Range Interpretation Comments triglyceride, serum, fasting (test 220 mg/dL 0-149 H code = 2571-8) [facility] Mountaincholesterol, [id number] 10:39:00 Test Item Value Reference Range Interpretation Comments cholesterol, serum (test code = 163 mg/dL 541-261 0952-3) [facility] Mountainalanine aminotransferase (SGPT), oxvex8469-49-38 10:39:00 Test Item Value Reference Range Interpretation Comments alanine aminotransferase (SGPT), serum 15 1/L 0-32 (test code = 1742-6) [facility] Mountainaspartate aminotransferase (SGOT), gpiuc4890-69-87 10:39:00 Test Item Value Reference Range Interpretation Comments aspartate aminotransferase (SGOT), 17 1/L 0-40 serum (test code = 1920-8) [facility] Mountainalkaline phosphatase, whjct1590-47-51 10:39:00 Test Item Value Reference Range Interpretation Comments alkaline phosphatase, serum (test code 93 1/L 39-117 = 1783-0) [facility]bilirubin, serum, [id number] 10:39:00 Test Item Value Reference Range Interpretation Comments bilirubin, serum, total (test code <0.2 mg/dL 0.0-1.2 = 1975-2) [facility] Healthalbumin/globulin ratio, [id number] 10:39:00 Test Item Value Reference Range Interpretation Comments albumin/globulin ratio, 1.7 (unknown unit) 1.2-2.2 serum (test code = 1759-0) [facility] Healthglobulin, [id number] 10:39:00 Test Item Value Reference Range Interpretation Comments globulin, serum (test code 2.4 (unknown unit) 1.5-4.5 = 2336-6) [facility] Healthalbumin, yeeow5838-79-24 10:39:00 Test Item Value Reference Range Interpretation Comments albumin, serum (test code = 1751-7) 4.0 g/dL 3.8-4.9 [facility]protein, total, [id number] 10:39:00 Test Item Value Reference Range Interpretation Comments protein, total, serum (test code = 6.4 g/dL 6.0-8.5 2885-2) [facility] Mountaincalcium, [id number] 10:39:00 Test Item Value Reference Range Interpretation Comments calcium, serum (test code = 1999-8) 9.1 mg/dL 8.7-10.3 [facility]carbon dioxide, venous iqyra7306-71-17 10:39:00 Test Item Value Reference Range Interpretation Comments carbon dioxide, venous blood (test 27 mmol/L - code = 2026-1) [facility] Mountainchloride, vycws3756-80-16 10:39:00 Test Item Value Reference Range Interpretation Comments chloride, serum (test code = 100 mmol/L 96-106 5-0) [facility] Mountainpotassium, wavbq8916-81-13 10:39:00 Test Item Value Reference Range Interpretation Comments potassium, serum (test code = 4.6 mmol/L 3.5-5.2 2823-3) [facility] Mountainsodium, tvfbk0000-28-95 10:39:00 Test Item Value Reference Range Interpretation Comments sodium, serum (test code = 2951-2) 139 mmol/L 134-144 [facility] Mountainurea nitrogen/creatinine ratio, hyohh2560-90-80 10:39:00 Test Item Value Reference Range Interpretation Comments urea nitrogen/creatinine 13 (unknown unit) 12-28 ratio, serum (test code = 3097-3) [facility] MountaineGFR if Rpwiilwi8942-18-38 10:39:00 Test Item Value Reference Range Interpretation Comments eGFR if 110 mL/min/{1.73 m2} >59 (test code = 88247-5) [facility] MountainEstimated Glomerular Filtration Rate (calc)2020-05-28 10:39:00 Test Item Value Reference Range Interpretation Comments Estimated Glomerular 96 mL/min/{1.73 m2} >59 Filtration Rate (calc) (test code = 58449-3) [facility] Mountaincreatinine, [id number] 10:39:00 Test Item Value Reference Range Interpretation Comments creatinine, serum (test code = 0.67 mg/dL 0.57-1.00 2160-0) [facility] Mountainurea nitrogen, [id number] 10:39:00 Test Item Value Reference Range Interpretation Comments urea nitrogen, blood (test code = 9 mg/dL 8-27 3094-0) [facility] Mountainblood glucose, fwfrab5264-74-52 10:39:00 Test Item Value Reference Range Interpretation Comments blood glucose, random (test code = 106 mg/dL 65-99 H 2339-0) [facility] Mountainimmature granulocytes, percentage of total cells, blood 2020-05-28 10:39:00 Test Item Value Reference Range Interpretation Comments immature granulocytes, percentage of 0 % total cells, blood (test code = 70611-7) [facility] Mountainbasophil count, ydklrwmf1820-39-56 10:39:00 Test Item Value Reference Range Interpretation Comments basophil count, absolute (test 0.0 x10E3/uL 0.0-0.2 code = 40971-2) [facility] HealthEosinophil Absolute Lownm3974-41-73 10:39:00 Test Item Value Reference Range Interpretation Comments Eosinophil Absolute Count (test 0.1 X10E3/UL 0.0-0.4 code = 01283-2) [facility] Healthmonocyte count, blood, lqjescrth8327-23-18 10:39:00 Test Item Value Reference Range Interpretation Comments monocyte count, blood, automated 0.4 X10E3/UL 0.1-0.9 (test code = 742-7) [facility] Mountainlymphocyte count, blood, ssrkdibdn2896-96-90 10:39:00 Test Item Value Reference Range Interpretation Comments lymphocyte count, blood, 1.5 X10E3/UL 0.7-3.1 automated (test code = 731-0) [facility] MountainAbsolute Sbrulpqufau8502-64-63 10:39:00 Test Item Value Reference Range Interpretation Comments Absolute Neutrophils (test code 4.8 X10E3/UL 1.4-7.0 = 16941-6) [facility] Healthbasophils as percent of blood buengsdqzm9224-49-92 10:39:00 Test Item Value Reference Range Interpretation Comments basophils as percent of blood 0 % leukocytes (test code = 707-0) [facility] Healtheosinophils as percent of blood evbwqdnxqg8998-21-28 10:39:00 Test Item Value Reference Range Interpretation Comments eosinophils as percent of blood 1 % leukocytes (test code = 713-8) [facility] Healthmonocytes as percent of blood aminkodgce6817-49-81 10:39:00 Test Item Value Reference Range Interpretation Comments monocytes as percent of blood 6 % leukocytes (test code = 5905-5) [facility] Healthlymphocytes as percent of blood lwhxfpunzg1372-44-35 10:39:00 Test Item Value Reference Range Interpretation Comments lymphocytes as percent of blood 23 % leukocytes (test code = 736-9) [facility] Healthneutrophils as percent of blood aqvnmvloaa2244-92-22 10:39:00 Test Item Value Reference Range Interpretation Comments neutrophils as percent of blood 70 % leukocytes (test code = 770-8) [facility] Healthplatelet cezwy3808-29-53 10:39:00 Test Item Value Reference Range Interpretation Comments platelet count (test code = 203 X10E3/UL 150-450 777-3) [facility]red blood cell distribution ajeas8433-33-06 10:39:00 Test Item Value Reference Range Interpretation Comments red blood cell distribution width 12.4 % 11.7-15.4 (test code = 788-0) [facility] corpuscular hemoglobin concentration, [id number] 10:39:00 Test Item Value Reference Range Interpretation Comments mean corpuscular hemoglobin 36.0 G/DL 31.5-35.7 H concentration, RBC (test code = 786-4) [facility] corpuscular hemoglobin, [id number] 10:39:00 Test Item Value Reference Range Interpretation Comments mean corpuscular hemoglobin, RBC 34.9 pg 26.6-33.0 H (test code = 785-6) [facility] corpuscular volume, [id number] 10:39:00 Test Item Value Reference Range Interpretation Comments mean corpuscular volume, RBC (test code 97 fL 79-97 = 787-2) [facility] Mountainhematocrit, [id number] 10:39:00 Test Item Value Reference Range Interpretation Comments hematocrit, blood (test code = 4544-3) 38.1 % 34.0-46.6 [facility] Mountainhemoglobin, wnglp1753-05-82 10:39:00 Test Item Value Reference Range Interpretation Comments hemoglobin, blood (test code = 13.7 g/dL 11.1-15.9 718-7) [facility] Mountainerythrocyte (RBC) cudrx0171-80-19 10:39:00 Test Item Value Reference Range Interpretation Comments erythrocyte (RBC) count (test 3.93 X10E6/UL 3.77-5.28 code = 789-8) [facility] Mountainleukocyte count, sumok6861-71-29 10:39:00 Test Item Value Reference Range Interpretation Comments leukocyte count, blood (test 6.8 X10E3/UL 3.4-10.8 code = 6690-2) [facility] MountainT-helper cells (CD4) as percent of blood lymphocytes 2020-05-28 10:39:00 Test Item Value Reference Range Interpretation Comments T-helper cells (CD4) as percent of 32.4 % 30.8-58.5 blood lymphocytes (test code = 8123-2) [facility] MountainT-helper cells (CD4) zvxiy3425-86-64 10:39:00 Test Item Value Reference Range Interpretation Comments T-helper cells (CD4) count (test code 486 /UL 359-1519 = 88947-2) [facility] MountainHIV-1RNA, serum, by PCR, qwpryhcuybuc9689-64-11 10:39:00 Test Item Value Reference Range Interpretation Comments HIV-1RNA, serum, by PCR, quantitative 30 /mL (test code = 35088-5) [facility] HealthCD4/CD8 luvxu9736-97-63 10:39:00 Test Item Value Reference Range Interpretation Comments CD4/CD8 ratio (test code 1.20 (unknown unit) 0.92-3.72 = 30364) [facility] MountainT-suppressor cells (CD8) as percent of blood lymphocytes 2020-05-28 10:39:00 Test Item Value Reference Range Interpretation Comments T-suppressor cells (CD8) as percent of 27.1 % 12.0-35.5 blood lymphocytes (test code = 3517) [facility] [id number] 10:39:00 Test Item Value Reference Range Interpretation Comments absolute CD8 (test code = 407 (unknown unit) [phone]) [facility] MountainHIV-1RNA, serum, by PCR, mlfmeutnbqhu1188-11-44 10:39:00 Test Item Value Reference Range Interpretation Comments HIV-1RNA, serum, by PCR, quantitative 30 /mL (test code = 12768) [facility] HealthCD4/CD8 [id number] 10:39:00 Test Item Value Reference Range Interpretation Comments CD4/CD8 ratio (test code 1.20 (unknown unit) 0.92-3.72 = 72522) [facility] MountainT-suppressor cells (CD8) as percent of blood lymphocytes 2020-05-28 10:39:00 Test Item Value Reference Range Interpretation Comments T-suppressor cells (CD8) as percent of 27.1 % 12.0-35.5 blood lymphocytes (test code = 3517) [facility] [id number] 10:39:00 Test Item Value Reference Range Interpretation Comments absolute CD8 (test code = 407 (unknown unit) 109-405 84913) [facility] Mountainrapid plasma reagin antibody, [id number] 11:23:00 Test Item Value Reference Range Interpretation Comments rapid plasma reagin antibody, Non Reactive Non Reactive serum (test code = 5291-0) [facility] Mountainhemoglobin A1C, blood, as % of total ybwlozdcxs0809-14-54 11:23:00 Test Item Value Reference Range Interpretation Comments hemoglobin A1C, blood, as % of total 5.6 % 4.8-5.6 hemoglobin (test code = 4548-4) [facility]LDL cholesterol, [id number] 11:23:00 Test Item Value Reference Range Interpretation Comments LDL cholesterol, serum (test code = 94 mg/dL 0-99 2088-1) [facility] Mountainvery low density bjreepopfvis1600-51-98 11:23:00 Test Item Value Reference Range Interpretation Comments very low density lipoproteins (test 57 mg/dL 5-40 H code = 2091-7) [facility]HDL cholesterol, [id number] 11:23:00 Test Item Value Reference Range Interpretation Comments HDL cholesterol, serum (test code = 36 mg/dL >39 L 2084-9) [facility]aintriglyceride, serum, [id number] 11:23:00 Test Item Value Reference Range Interpretation Comments triglyceride, serum, fasting (test 284 mg/dL 0-149 H code = 2571-8) [facility]cholesterol, [id number] 11:23:00 Test Item Value Reference Range Interpretation Comments cholesterol, serum (test code = 187 mg/dL 308-187 3652-3) [facility]alanine aminotransferase (SGPT), [id number] 11:23:00 Test Item Value Reference Range Interpretation Comments alanine aminotransferase (SGPT), serum 7 1/L 0-32 (test code = 1742-6) [facility] Mountainaspartate aminotransferase (SGOT), [id number] 11:23:00 Test Item Value Reference Range Interpretation Comments aspartate aminotransferase (SGOT), 9 1/L 0-40 serum (test code = 1920-8) [facility] Mountainalkaline phosphatase, [id number] 11:23:00 Test Item Value Reference Range Interpretation Comments alkaline phosphatase, serum (test code 93 1/L 39-117 = 1783-0) [facility] Healthbilirubin, serum, [id number] 11:23:00 Test Item Value Reference Range Interpretation Comments bilirubin, serum, total (test code <0.2 mg/dL 0.0-1.2 = 1975-2) [facility] Healthalbumin/globulin ratio, [id number] 11:23:00 Test Item Value Reference Range Interpretation Comments albumin/globulin ratio, 1.4 (unknown unit) 1.2-2.2 serum (test code = 1759-0) [facility] Healthglobulin, [id number] 11:23:00 Test Item Value Reference Range Interpretation Comments globulin, serum (test code 2.8 (unknown unit) 1.5-4.5 = 2336-6) [facility] Healthalbumin, [id number] 11:23:00 Test Item Value Reference Range Interpretation Comments albumin, serum (test code = 1751-7) 3.9 g/dL 3.8-4.9 [facility]protein, total, [id number] 11:23:00 Test Item Value Reference Range Interpretation Comments protein, total, serum (test code = 6.7 g/dL 6.0-8.5 2885-2) [facility] Mountaincalcium, [id number] 11:23:00 Test Item Value Reference Range Interpretation Comments calcium, serum (test code = 1999-8) 9.1 mg/dL 8.7-10.3 [facility]carbon dioxide, venous [id number] 11:23:00 Test Item Value Reference Range Interpretation Comments carbon dioxide, venous blood (test 27 mmol/L 20-29 code = 7-1) [facility] Mountainchloride, [id number] 11:23:00 Test Item Value Reference Range Interpretation Comments chloride, serum (test code = 99 mmol/L 96-106 5-0) [facility] Mountainpotassium, [id number] 11:23:00 Test Item Value Reference Range Interpretation Comments potassium, serum (test code = 4.7 mmol/L 3.5-5.2 2823-3) [facility] Mountainsodium, [id number] 11:23:00 Test Item Value Reference Range Interpretation Comments sodium, serum (test code = 2951-2) 140 mmol/L 134-144 [facility] Mountainurea nitrogen/creatinine ratio, [id number] 11:23:00 Test Item Value Reference Range Interpretation Comments urea nitrogen/creatinine 17 (unknown unit) 12-28 ratio, serum (test code = 3097-3) [facility] HealtheGFR if Nawmxutc6142-48-30 11:23:00 Test Item Value Reference Range Interpretation Comments eGFR if 100 mL/min/{1.73 m2} >59 (test code = 00415-8) [facility] MountainEstimated Glomerular Filtration Rate (calc)2020-02-07 11:23:00 Test Item Value Reference Range Interpretation Comments Estimated Glomerular 87 mL/min/{1.73 m2} >59 Filtration Rate (calc) (test code = 57375-3) [facility] Mountaincreatinine, [id number] 11:23:00 Test Item Value Reference Range Interpretation Comments creatinine, serum (test code = 0.75 mg/dL 0.57-1.00 2160-0) [facility] Mountainurea nitrogen, [id number] 11:23:00 Test Item Value Reference Range Interpretation Comments urea nitrogen, blood (test code = 13 mg/dL 8-27 3094-0) [facility]blood glucose, [id number] 11:23:00 Test Item Value Reference Range Interpretation Comments blood glucose, random (test code = 74 mg/dL 65-99 2339-0) [facility] Mountainimmature granulocytes, percentage of total cells, blood 2020-02-07 11:23:00 Test Item Value Reference Range Interpretation Comments immature granulocytes, percentage of 0 % total cells, blood (test code = 10985-4) [facility] Mountainbasophil count, dmcovkpo8201-37-81 11:23:00 Test Item Value Reference Range Interpretation Comments basophil count, absolute (test 0.0 x10E3/uL 0.0-0.2 code = 20658-2) [facility] MountainEosinophil Absolute [id number] 11:23:00 Test Item Value Reference Range Interpretation Comments Eosinophil Absolute Count (test 0.1 X10E3/UL 0.0-0.4 code = 47041-7) [facility] Mountainmonocyte count, blood, [id number] 11:23:00 Test Item Value Reference Range Interpretation Comments monocyte count, blood, automated 0.4 X10E3/UL 0.1-0.9 (test code = 742-7) [facility] Mountainlymphocyte count, blood, ntwmfglyf4955-91-89 11:23:00 Test Item Value Reference Range Interpretation Comments lymphocyte count, blood, 1.6 X10E3/UL 0.7-3.1 automated (test code = 731-0) [facility] MountainAbsolute Ihgftidybbn8413-63-23 11:23:00 Test Item Value Reference Range Interpretation Comments Absolute Neutrophils (test code 5.0 X10E3/UL 1.4-7.0 = 56998-8) [facility] Mountainbasophils as percent of blood tesxvfkamu2168-67-14 11:23:00 Test Item Value Reference Range Interpretation Comments basophils as percent of blood 0 % leukocytes (test code = 707-0) [facility] Mountaineosinophils as percent of blood caelbguwjr8323-29-18 11:23:00 Test Item Value Reference Range Interpretation Comments eosinophils as percent of blood 1 % leukocytes (test code = 713-8) [facility] Healthmonocytes as percent of blood wmarqyzyvh3265-98-49 11:23:00 Test Item Value Reference Range Interpretation Comments monocytes as percent of blood 6 % leukocytes (test code = 5905-5) [facility] Mountainlymphocytes as percent of blood rxjtztyrrv6399-38-83 11:23:00 Test Item Value Reference Range Interpretation Comments lymphocytes as percent of blood 22 % leukocytes (test code = 736-9) [facility] Mountainneutrophils as percent of blood nygrmrxici2267-38-29 11:23:00 Test Item Value Reference Range Interpretation Comments neutrophils as percent of blood 71 % leukocytes (test code = 770-8) [facility] Mountainplatelet kyiez2547-77-21 11:23:00 Test Item Value Reference Range Interpretation Comments platelet count (test code = 214 X10E3/UL 150-450 777-3) [facility] Mountainred blood cell distribution toehv2861-92-33 11:23:00 Test Item Value Reference Range Interpretation Comments red blood cell distribution width 12.8 % 11.7-15.4 (test code = 788-0) [facility], [id number] 11:23:00 Test Item Value Reference Range Interpretation Comments mean corpuscular hemoglobin 33.4 G/DL 31.5-35.7 concentration, RBC (test code = 786-4) [facility]mean corpuscular hemoglobin, [id number] 11:23:00 Test Item Value Reference Range Interpretation Comments mean corpuscular hemoglobin, RBC 33.8 pg 26.6-33.0 H (test code = 785-6) [facility], [id number] 11:23:00 Test Item Value Reference Range Interpretation Comments mean corpuscular volume, RBC (test 101 fL 79-97 H code = 787-2) [facility]hematocrit, [id number] 11:23:00 Test Item Value Reference Range Interpretation Comments hematocrit, blood (test code = 4544-3) 40.1 % 34.0-46.6 [facility] Mountainhemoglobin, [id number] 11:23:00 Test Item Value Reference Range Interpretation Comments hemoglobin, blood (test code = 13.4 g/dL 11.1-15.9 718-7) [facility] Mountainerythrocyte (RBC) [id number] 11:23:00 Test Item Value Reference Range Interpretation Comments erythrocyte (RBC) count (test 3.97 X10E6/UL 3.77-5.28 code = 789-8) [facility] Mountainleukocyte count, [id number] 11:23:00 Test Item Value Reference Range Interpretation Comments leukocyte count, blood (test 7.1 X10E3/UL 3.4-10.8 code = 6690-2) [facility] MountainT-helper cells (CD4) as percent of blood lymphocytes 2020-02-07 11:23:00 Test Item Value Reference Range Interpretation Comments T-helper cells (CD4) as percent of 28.4 % 30.8-58.5 L blood lymphocytes (test code = 8123-2) [facility] MountainT-helper cells (CD4) bfjka5326-10-00 11:23:00 Test Item Value Reference Range Interpretation Comments T-helper cells (CD4) count (test code 454 /UL 359-1519 = 18680-3) [facility]HIV-1RNA, serum, by PCR, imizzurnhtvc5446-56-82 11:23:00 Test Item Value Reference Range Interpretation Comments HIV-1RNA, serum, by PCR, <20 copies/mL quantitative (test code = 81346-2) [facility] MountainCD4/CD8 wzrvz2775-27-40 11:23:00 Test Item Value Reference Range Interpretation Comments CD4/CD8 ratio (test code 1.01 (unknown unit) 0.92-3.72 = 23162) [facility] MountainT-suppressor cells (CD8) as percent of blood lymphocytes 2020-02-07 11:23:00 Test Item Value Reference Range Interpretation Comments T-suppressor cells (CD8) as percent of 28.0 % 12.0-35.5 blood lymphocytes (test code = 3517) [facility] [id number] 11:23:00 Test Item Value Reference Range Interpretation Comments absolute CD8 (test code = 448 (unknown unit) 763-993 25607) [facility]HIV-1RNA, serum, by PCR, sfpwssywqzih3597-79-22 11:23:00 Test Item Value Reference Range Interpretation Comments HIV-1RNA, serum, by PCR, <20 copies/mL quantitative (test code = 27911) [facility] MountainCD4/CD8 [id number] 11:23:00 Test Item Value Reference Range Interpretation Comments CD4/CD8 ratio (test code 1.01 (unknown unit) 0.92-3.72 = 75862) [facility] MountainT-suppressor cells (CD8) as percent of blood lymphocytes 2020-02-07 11:23:00 Test Item Value Reference Range Interpretation Comments T-suppressor cells (CD8) as percent of 28.0 % 12.0-35.5 blood lymphocytes (test code = 3517) [facility] [id number] 11:23:00 Test Item Value Reference Range Interpretation Comments absolute CD8 (test code = 448 (unknown unit) 011-453 92356) [facility] MountainQuantiferon Gold TB blood test for tuberculosis screening 2019-10-04 09:29:00 Test Item Value Reference Range Interpretation Comments Quantiferon Gold TB blood test for Positive Negative A tuberculosis screening (test code = 88689-5) [facility], [id number] 09:19:00 Test Item Value Reference Range Interpretation Comments hepatitis C antibody, serum (test code <0.1 0.0-0.9 = 5199-5) [facility] Mountainrapid plasma reagin antibody, [id number] 09:19:00 Test Item Value Reference Range Interpretation Comments rapid plasma reagin antibody, Non Reactive Non Reactive serum (test code = 5291-0) [facility] MountainLDL cholesterol, [id number] 09:19:00 Test Item Value Reference Range Interpretation Comments LDL cholesterol, serum (test code = 82 mg/dL 0-99 9-1) [facility]very low density krgzyvjqmezj7236-48-59 09:19:00 Test Item Value Reference Range Interpretation Comments very low density lipoproteins (test 32 mg/dL 5-40 code = 2091-7) [facility]HDL cholesterol, [id number] 09:19:00 Test Item Value Reference Range Interpretation Comments HDL cholesterol, serum (test code = 42 mg/dL >39 5-9) [facility]aintriglyceride, serum, [id number] 09:19:00 Test Item Value Reference Range Interpretation Comments triglyceride, serum, fasting (test 161 mg/dL 0-149 H code = 2571-8) [facility] Mountaincholesterol, [id number] 09:19:00 Test Item Value Reference Range Interpretation Comments cholesterol, serum (test code = 156 mg/dL 311-687 6769-3) [facility]alanine aminotransferase (SGPT), [id number] 09:19:00 Test Item Value Reference Range Interpretation Comments alanine aminotransferase (SGPT), serum 10 1/L 0-32 (test code = 1742-6) [facility] Mountainaspartate aminotransferase (SGOT), zmtar4824-27-54 09:19:00 Test Item Value Reference Range Interpretation Comments aspartate aminotransferase (SGOT), 9 1/L 0-40 serum (test code = 1920-8) [facility] Mountainalkaline phosphatase, [id number] 09:19:00 Test Item Value Reference Range Interpretation Comments alkaline phosphatase, serum (test code 99 1/L 39-117 = 1783-0) [facility]bilirubin, serum, [id number] 09:19:00 Test Item Value Reference Range Interpretation Comments bilirubin, serum, total (test code 0.3 mg/dL 0.0-1.2 = 1975-2) [facility] Healthalbumin/globulin ratio, [id number] 09:19:00 Test Item Value Reference Range Interpretation Comments albumin/globulin ratio, 1.6 (unknown unit) 1.2-2.2 serum (test code = 1759-0) [facility] Healthglobulin, [id number] 09:19:00 Test Item Value Reference Range Interpretation Comments globulin, serum (test code 2.4 (unknown unit) 1.5-4.5 = 2336-6) [facility] Healthalbumin, [id number] 09:19:00 Test Item Value Reference Range Interpretation Comments albumin, serum (test code = 1751-7) 3.9 g/dL 3.5-5.5 [facility]protein, total, [id number] 09:19:00 Test Item Value Reference Range Interpretation Comments protein, total, serum (test code = 6.3 g/dL 6.0-8.5 2885-2) [facility] Mountaincalcium, [id number] 09:19:00 Test Item Value Reference Range Interpretation Comments calcium, serum (test code = 2000-8) 9.2 mg/dL 8.7-10.2 [facility]carbon dioxide, venous [id number] 09:19:00 Test Item Value Reference Range Interpretation Comments carbon dioxide, venous blood (test 27 mmol/L code = 2026-1) [facility] Healthchloride, [id number] 09:19:00 Test Item Value Reference Range Interpretation Comments chloride, serum (test code = 102 mmol/L 96-106 5-0) [facility] Mountainpotassium, [id number] 09:19:00 Test Item Value Reference Range Interpretation Comments potassium, serum (test code = 4.5 mmol/L 3.5-5.2 2823-3) [facility] Mountainsodium, [id number] 09:19:00 Test Item Value Reference Range Interpretation Comments sodium, serum (test code = 2951-2) 140 mmol/L 134-144 [facility]/creatinine ratio, wszvl3669-62-80 09:19:00 Test Item Value Reference Range Interpretation Comments urea nitrogen/creatinine 25 (unknown unit) 9-23 H ratio, serum (test code = 3097-3) [facility] HealtheGFR if Febvnngn8232-06-30 09:19:00 Test Item Value Reference Range Interpretation Comments eGFR if 118 mL/min/{1.73 m2} >59 (test code = 09126-8) [facility] MountainEstimated Glomerular Filtration Rate (calc)2019-10-04 09:19:00 Test Item Value Reference Range Interpretation Comments Estimated Glomerular 102 mL/min/{1.73 m2} >59 Filtration Rate (calc) (test code = 44204-8) [facility]creatinine, [id number] 09:19:00 Test Item Value Reference Range Interpretation Comments creatinine, serum (test code = 0.56 mg/dL 0.57-1.00 L 2160-0) [facility] Mountainurea nitrogen, [id number] 09:19:00 Test Item Value Reference Range Interpretation Comments urea nitrogen, blood (test code = 14 mg/dL 6-24 3094-0) [facility]blood glucose, zptvyb3183-71-90 09:19:00 Test Item Value Reference Range Interpretation Comments blood glucose, random (test code = 121 mg/dL 65-99 H 2339-0) [facility] Mountainimmature granulocytes, percentage of total cells, blood 2019-10-04 09:19:00 Test Item Value Reference Range Interpretation Comments immature granulocytes, percentage of 0 % total cells, blood (test code = 34309-9) [facility] Mountainbasophil count, zykcqicc2403-63-98 09:19:00 Test Item Value Reference Range Interpretation Comments basophil count, absolute (test 0.0 x10E3/uL 0.0-0.2 code = 20658-7) [facility] MountainEosinophil Absolute [id number] 09:19:00 Test Item Value Reference Range Interpretation Comments Eosinophil Absolute Count (test 0.2 X10E3/UL 0.0-0.4 code = 83719-6) [facility] Mountainmonocyte count, blood, cxfmqsstq9674-81-94 09:19:00 Test Item Value Reference Range Interpretation Comments monocyte count, blood, automated 0.4 X10E3/UL 0.1-0.9 (test code = 742-7) [facility]lymphocyte count, blood, iqdtwyxkx7303-84-25 09:19:00 Test Item Value Reference Range Interpretation Comments lymphocyte count, blood, 1.7 X10E3/UL 0.7-3.1 automated (test code = 731-0) [facility] MountainAbsolute Srppthkwzmg2360-68-66 09:19:00 Test Item Value Reference Range Interpretation Comments Absolute Neutrophils (test code 3.5 X10E3/UL 1.4-7.0 = 00385-6) [facility] Mountainbasophils as percent of blood noaomktnfq1217-36-39 09:19:00 Test Item Value Reference Range Interpretation Comments basophils as percent of blood 1 % leukocytes (test code = 707-0) [facility] Mountaineosinophils as percent of blood ketspgejap7968-43-36 09:19:00 Test Item Value Reference Range Interpretation Comments eosinophils as percent of blood 3 % leukocytes (test code = 713-8) [facility] Healthmonocytes as percent of blood gwenyfpuqb3308-10-65 09:19:00 Test Item Value Reference Range Interpretation Comments monocytes as percent of blood 7 % leukocytes (test code = 5905-5) [facility] Mountainlymphocytes as percent of blood iskbjzhviv6990-82-74 09:19:00 Test Item Value Reference Range Interpretation Comments lymphocytes as percent of blood 29 % leukocytes (test code = 736-9) [facility] Mountainneutrophils as percent of blood rxbzeomntg2437-88-81 09:19:00 Test Item Value Reference Range Interpretation Comments neutrophils as percent of blood 60 % leukocytes (test code = 770-8) [facility] Mountainplatelet fkiup0378-75-15 09:19:00 Test Item Value Reference Range Interpretation Comments platelet count (test code = 234 X10E3/UL 150-450 777-3) [facility] Mountainred blood cell distribution cxket0857-97-35 09:19:00 Test Item Value Reference Range Interpretation Comments red blood cell distribution width 13.0 % 12.3-15.4 (test code = 788-0) [facility] Mountainmean corpuscular hemoglobin concentration, [id number] 09:19:00 Test Item Value Reference Range Interpretation Comments mean corpuscular hemoglobin 33.8 G/DL 31.5-35.7 concentration, RBC (test code = 786-4) [facility]mean corpuscular hemoglobin, [id number] 09:19:00 Test Item Value Reference Range Interpretation Comments mean corpuscular hemoglobin, RBC 34.9 pg 26.6-33.0 H (test code = 785-6) [facility]mean corpuscular volume, [id number] 09:19:00 Test Item Value Reference Range Interpretation Comments mean corpuscular volume, RBC (test 103 fL 79-97 H code = 787-2) [facility] Mountainhematocrit, yfzru1803-59-27 09:19:00 Test Item Value Reference Range Interpretation Comments hematocrit, blood (test code = 4544-3) 41.4 % 34.0-46.6 [facility] Mountainhemoglobin, [id number] 09:19:00 Test Item Value Reference Range Interpretation Comments hemoglobin, blood (test code = 14.0 g/dL 11.1-15.9 718-7) [facility] Mountainerythrocyte (RBC) [id number] 09:19:00 Test Item Value Reference Range Interpretation Comments erythrocyte (RBC) count (test 4.01 X10E6/UL 3.77-5.28 code = 789-8) [facility] Mountainleukocyte count, [id number] 09:19:00 Test Item Value Reference Range Interpretation Comments leukocyte count, blood (test 5.8 X10E3/UL 3.4-10.8 code = 6690-2) [facility] MountainT-helper cells (CD4) as percent of blood lymphocytes 2019-10-04 09:19:00 Test Item Value Reference Range Interpretation Comments T-helper cells (CD4) as percent of 24.4 % 30.8-58.5 L blood lymphocytes (test code = 8123-2) [facility] MountainT-helper cells (CD4) tpjou3864-94-29 09:19:00 Test Item Value Reference Range Interpretation Comments T-helper cells (CD4) count (test code 415 /UL 359-1519 = 53157-8) [facility]he[facility] antibody, [id number] 09:19:00 Test Item Value Reference Range Interpretation Comments hepatitis C antibody, serum (test code <0.1 0.0-0.9 = 54257-2) [facility]HIV-1RNA, serum, by PCR, bjjnlurggpge8641-21-51 09:19:00 Test Item Value Reference Range Interpretation Comments HIV-1RNA, serum, by PCR, quantitative 380 /mL (test code = 92679-2) [facility] HealthCD4/CD8 tlzma8979-63-67 09:19:00 Test Item Value Reference Range Interpretation Comments CD4/CD8 ratio (test code 0.91 (unknown unit) 0.92-3.72 L = 27480) [facility] MountainT-suppressor cells (CD8) as percent of blood lymphocytes 2019-10-04 09:19:00 Test Item Value Reference Range Interpretation Comments T-suppressor cells (CD8) as percent of 26.7 % 12.0-35.5 blood lymphocytes (test code = 3517) [facility] Mountainabsolute [id number] 09:19:00 Test Item Value Reference Range Interpretation Comments absolute CD8 (test code = 454 (unknown unit) [phone]) [facility]HIV-1RNA, serum, by PCR, ydmhkupjkgzc9216-02-52 09:19:00 Test Item Value Reference Range Interpretation Comments HIV-1RNA, serum, by PCR, quantitative 380 /mL (test code = 31701) [facility] MountainCD4/CD8 [id number] 09:19:00 Test Item Value Reference Range Interpretation Comments CD4/CD8 ratio (test code 0.91 (unknown unit) 0.92-3.72 L = 33575) [facility] MountainT-suppressor cells (CD8) as percent of blood lymphocytes 2019-10-04 09:19:00 Test Item Value Reference Range Interpretation Comments T-suppressor cells (CD8) as percent of 26.7 % 12.0-35.5 blood lymphocytes (test code = 3517) [facility] Mountainabsolute [id number] 09:19:00 Test Item Value Reference Range Interpretation Comments absolute CD8 (test code = 454 (unknown unit) 588-483 89813) [facility] MountainLDL cholesterol, vxtzw1188-02-64 10:34:00 Test Item Value Reference Range Interpretation Comments LDL cholesterol, serum (test code = 58 mg/dL 0-99 2088-) [facility] Mountainvery low density ctjiorucounm1100-32-26 10:34:00 Test Item Value Reference Range Interpretation Comments very low density lipoproteins (test 35 mg/dL 5-40 code = 2091-7) [facility] MountainHDL cholesterol, qwsmv8628-07-32 10:34:00 Test Item Value Reference Range Interpretation Comments HDL cholesterol, serum (test code = 34 mg/dL >39 L 2084-9) [facility] Mountaintriglyceride, serum, mebowlg4246-26-27 10:34:00 Test Item Value Reference Range Interpretation Comments triglyceride, serum, fasting (test 174 mg/dL 0-149 H code = 2571-8) [facility] Mountaincholesterol, [id number] 10:34:00 Test Item Value Reference Range Interpretation Comments cholesterol, serum (test code = 127 mg/dL 701-190 1777-3) [facility] Mountainrapid plasma reagin antibody, [id number] 10:25:00 Test Item Value Reference Range Interpretation Comments rapid plasma reagin antibody, Non Reactive Non Reactive serum (test code = 5291-0) [facility] Mountainalanine aminotransferase (SGPT), [id number] 10:25:00 Test Item Value Reference Range Interpretation Comments alanine aminotransferase (SGPT), serum 12 1/L 0-32 (test code = 1742-6) [facility] Mountainaspartate aminotransferase (SGOT), lzjbr5006-77-54 10:25:00 Test Item Value Reference Range Interpretation Comments aspartate aminotransferase (SGOT), 9 1/L 0-40 serum (test code = 1920-8) [facility], [id number] 10:25:00 Test Item Value Reference Range Interpretation Comments alkaline phosphatase, serum (test 102 1/L 39-117 code = 1783-0) [facility]irubin, serum, [id number] 10:25:00 Test Item Value Reference Range Interpretation Comments bilirubin, serum, total (test code 0.4 mg/dL 0.0-1.2 = 1974-) [facility]albumin/globulin ratio, [id number] 10:25:00 Test Item Value Reference Range Interpretation Comments albumin/globulin ratio, 1.4 (unknown unit) 1.2-2.2 serum (test code = 1759-0) [facility] Healthglobulin, [id number] 10:25:00 Test Item Value Reference Range Interpretation Comments globulin, serum (test code 2.8 (unknown unit) 1.5-4.5 = 2336-6) [facility] Healthalbumin, [id number] 10:25:00 Test Item Value Reference Range Interpretation Comments albumin, serum (test code = 1751-7) 4.0 g/dL 3.5-5.5 [facility] Healthprotein, total, asiic8545-67-20 10:25:00 Test Item Value Reference Range Interpretation Comments protein, total, serum (test code = 6.8 g/dL 6.0-8.5 2885-2) [facility] Healthcalcium, [id number] 10:25:00 Test Item Value Reference Range Interpretation Comments calcium, serum (test code = 1999-8) 9.3 mg/dL 8.7-10.2 [facility] dioxide, venous [id number] 10:25:00 Test Item Value Reference Range Interpretation Comments carbon dioxide, venous blood (test 29 mmol/L 20-29 code = 2026-1) [facility] Healthchloride, [id number] 10:25:00 Test Item Value Reference Range Interpretation Comments chloride, serum (test code = 99 mmol/L 96-106 5-0) [facility] Healthpotassium, [id number] 10:25:00 Test Item Value Reference Range Interpretation Comments potassium, serum (test code = 4.4 mmol/L 3.5-5.2 2823-3) [facility] Healthsodium, [id number] 10:25:00 Test Item Value Reference Range Interpretation Comments sodium, serum (test code = 2951-2) 140 mmol/L 134-144 [facility] Healthurea nitrogen/creatinine ratio, zslsp1615-60-05 10:25:00 Test Item Value Reference Range Interpretation Comments urea nitrogen/creatinine 20 (unknown unit) 9-23 ratio, serum (test code = 3097-3) [facility] HealtheGFR if Ajjlrjim0371-13-67 10:25:00 Test Item Value Reference Range Interpretation Comments eGFR if 115 mL/min/{1.73 m2} >59 (test code = 83327-2) [facility]ated Glomerular Filtration Rate (calc)2019-06-07 10:25:00 Test Item Value Reference Range Interpretation Comments Estimated Glomerular 100 mL/min/{1.73 m2} >59 Filtration Rate (calc) (test code = 89220-7) [facility]creatinine, [id number] 10:25:00 Test Item Value Reference Range Interpretation Comments creatinine, serum (test code = 0.61 mg/dL 0.57-1.00 2160-0) [facility] Mountainurea nitrogen, awibn7351-14-21 10:25:00 Test Item Value Reference Range Interpretation Comments urea nitrogen, blood (test code = 12 mg/dL 6-24 3094-0) [facility]blood glucose, [id number] 10:25:00 Test Item Value Reference Range Interpretation Comments blood glucose, random (test code = 131 mg/dL 65-99 H 2339-0) [facility] Mountainimmature granulocytes, percentage of total cells, blood 2019-06-07 10:25:00 Test Item Value Reference Range Interpretation Comments immature granulocytes, percentage of 0 % total cells, blood (test code = 62346-1) [facility]basophil count, kuioqeak7646-90-51 10:25:00 Test Item Value Reference Range Interpretation Comments basophil count, absolute (test 0.0 x10E3/uL 0.0-0.2 code = 09433-9) [facility] MountainEosinophil Absolute Amubq6956-78-98 10:25:00 Test Item Value Reference Range Interpretation Comments Eosinophil Absolute Count (test 0.1 X10E3/UL 0.0-0.4 code = 99802-8) [facility] Mountainmonocyte count, blood, avapjwsuj4121-63-59 10:25:00 Test Item Value Reference Range Interpretation Comments monocyte count, blood, automated 0.3 X10E3/UL 0.1-0.9 (test code = 742-7) [facility]lymphocyte count, blood, nplcheuub9446-43-35 10:25:00 Test Item Value Reference Range Interpretation Comments lymphocyte count, blood, 1.4 X10E3/UL 0.7-3.1 automated (test code = 731-0) [facility] MountainAbsolute Znnxuyfnmer8708-62-01 10:25:00 Test Item Value Reference Range Interpretation Comments Absolute Neutrophils (test code 5.3 X10E3/UL 1.4-7.0 = 27066-0) [facility]basophils as percent of blood bhbsptdtlb5922-42-55 10:25:00 Test Item Value Reference Range Interpretation Comments basophils as percent of blood 0 % leukocytes (test code = 707-0) [facility] Healtheosinophils as percent of blood tcpzldkhge5360-54-89 10:25:00 Test Item Value Reference Range Interpretation Comments eosinophils as percent of blood 1 % leukocytes (test code = 713-8) [facility] Healthmonocytes as percent of blood uhpbttjmqk4681-76-63 10:25:00 Test Item Value Reference Range Interpretation Comments monocytes as percent of blood 5 % leukocytes (test code = 5905-5) [facility]lymphocytes as percent of blood ggiwjctcmy5087-87-36 10:25:00 Test Item Value Reference Range Interpretation Comments lymphocytes as percent of blood 19 % leukocytes (test code = 736-9) [facility] Mountainneutrophils as percent of blood lnavxvyexs1797-98-55 10:25:00 Test Item Value Reference Range Interpretation Comments neutrophils as percent of blood 75 % leukocytes (test code = 770-8) [facility] Mountainplatelet vbroe1122-87-09 10:25:00 Test Item Value Reference Range Interpretation Comments platelet count (test code = 227 X10E3/UL 150-450 777-3) [facility]red blood cell distribution tfgzx1288-20-16 10:25:00 Test Item Value Reference Range Interpretation Comments red blood cell distribution width 13.4 % 12.3-15.4 (test code = 788-0) [facility] corpuscular hemoglobin concentration, [id number] 10:25:00 Test Item Value Reference Range Interpretation Comments mean corpuscular hemoglobin 34.2 G/DL 31.5-35.7 concentration, RBC (test code = 786-4) [facility], [id number] 10:25:00 Test Item Value Reference Range Interpretation Comments mean corpuscular hemoglobin, RBC 34.8 pg 26.6-33.0 H (test code = 785-6) [facility] corpuscular volume, [id number] 10:25:00 Test Item Value Reference Range Interpretation Comments mean corpuscular volume, RBC (test 102 fL 79-97 H code = 787-2) [facility]hematocrit, rgahs8017-22-87 10:25:00 Test Item Value Reference Range Interpretation Comments hematocrit, blood (test code = 4544-3) 42.7 % 34.0-46.6 [facility] Mountainhemoglobin, [id number] 10:25:00 Test Item Value Reference Range Interpretation Comments hemoglobin, blood (test code = 14.6 g/dL 11.1-15.9 718-7) [facility] Mountainerythrocyte (RBC) rwbtl1982-11-22 10:25:00 Test Item Value Reference Range Interpretation Comments erythrocyte (RBC) count (test 4.20 X10E6/UL 3.77-5.28 code = 789-8) [facility] Mountainleukocyte count, adujy5524-09-49 10:25:00 Test Item Value Reference Range Interpretation Comments leukocyte count, blood (test 7.1 X10E3/UL 3.4-10.8 code = 6690-2) [facility] MountainT-helper cells (CD4) as percent of blood lymphocytes 2019-06-07 10:25:00 Test Item Value Reference Range Interpretation Comments T-helper cells (CD4) as percent of 27.5 % 30.8-58.5 L blood lymphocytes (test code = 8123-2) [facility] MountainT-helper cells (CD4) izdow4410-75-02 10:25:00 Test Item Value Reference Range Interpretation Comments T-helper cells (CD4) count (test code 385 /UL 359-1519 = 27113-9) [facility] MountainHIV-1RNA, serum, by PCR, ercduvhrpirc2918-17-59 10:25:00 Test Item Value Reference Range Interpretation Comments HIV-1RNA, serum, by PCR, <20 copies/mL quantitative (test code = 19685-2) [facility] MountainCD4/CD8 ozqcg0116-17-53 10:25:00 Test Item Value Reference Range Interpretation Comments CD4/CD8 ratio (test code 1.00 (unknown unit) 0.92-3.72 = 02853) [facility] MountainT-suppressor cells (CD8) as percent of blood lymphocytes 2019-06-07 10:25:00 Test Item Value Reference Range Interpretation Comments T-suppressor cells (CD8) as percent of 27.5 % 12.0-35.5 blood lymphocytes (test code = 3517) [facility] [id number] 10:25:00 Test Item Value Reference Range Interpretation Comments absolute CD8 (test code = 385 (unknown unit) 662-191 60878) [facility]HIV-1RNA, serum, by PCR, qidbdcgcezrv3578-59-53 10:25:00 Test Item Value Reference Range Interpretation Comments HIV-1RNA, serum, by PCR, <20 copies/mL quantitative (test code = 78491) [facility] MountainCD4/CD8 sqxvv3502-10-20 10:25:00 Test Item Value Reference Range Interpretation Comments CD4/CD8 ratio (test code 1.00 (unknown unit) 0.92-3.72 = 69736) [facility] MountainT-suppressor cells (CD8) as percent of blood lymphocytes 2019-06-07 10:25:00 Test Item Value Reference Range Interpretation Comments T-suppressor cells (CD8) as percent of 27.5 % 12.0-35.5 blood lymphocytes (test code = 3517) [facility] [id number] 10:25:00 Test Item Value Reference Range Interpretation Comments absolute CD8 (test code = 385 (unknown unit) 223-147 79045) [facility] Mountainrapid plasma reagin antibody, [id number] 08:54:00 Test Item Value Reference Range Interpretation Comments rapid plasma reagin antibody, Non Reactive Non Reactive serum (test code = 5291-0) [facility]alanine aminotransferase (SGPT), kmhbu1975-21-20 08:54:00 Test Item Value Reference Range Interpretation Comments alanine aminotransferase (SGPT), serum 12 1/L 0-32 (test code = 1742-6) [facility] Mountainaspartate aminotransferase (SGOT), nwxej4650-27-95 08:54:00 Test Item Value Reference Range Interpretation Comments aspartate aminotransferase (SGOT), 12 1/L 0-40 serum (test code = 1920-8) [facility] Healthalkaline phosphatase, rtswu6064-24-82 08:54:00 Test Item Value Reference Range Interpretation Comments alkaline phosphatase, serum (test 109 1/L 39-117 code = 1783-0) [facility] Healthbilirubin, serum, [id number] 08:54:00 Test Item Value Reference Range Interpretation Comments bilirubin, serum, total (test code 0.2 mg/dL 0.0-1.2 = 1975-2) [facility] Healthalbumin/globulin ratio, [id number] 08:54:00 Test Item Value Reference Range Interpretation Comments albumin/globulin ratio, 1.5 (unknown unit) 1.2-2.2 serum (test code = 1759-0) [facility] Healthglobulin, [id number] 08:54:00 Test Item Value Reference Range Interpretation Comments globulin, serum (test code 2.6 (unknown unit) 1.5-4.5 = 2336-6) [facility] Healthalbumin, [id number] 08:54:00 Test Item Value Reference Range Interpretation Comments albumin, serum (test code = 1751-7) 4.0 g/dL 3.5-5.5 [facility] Healthprotein, total, hemeh1967-27-68 08:54:00 Test Item Value Reference Range Interpretation Comments protein, total, serum (test code = 6.6 g/dL 6.0-8.5 2885-2) [facility] Healthcalcium, [id number] 08:54:00 Test Item Value Reference Range Interpretation Comments calcium, serum (test code = 1999-8) 9.3 mg/dL 8.7-10.2 [facility]carbon dioxide, venous [id number] 08:54:00 Test Item Value Reference Range Interpretation Comments carbon dioxide, venous blood (test 26 mmol/L 20-29 code = 2026-1) [facility] Mountainchloride, zsefz8448-65-15 08:54:00 Test Item Value Reference Range Interpretation Comments chloride, serum (test code = 102 mmol/L 96-106 5-0) [facility] Healthpotassium, nnryv8856-45-04 08:54:00 Test Item Value Reference Range Interpretation Comments potassium, serum (test code = 4.8 mmol/L 3.5-5.2 2823-3) [facility] Mountainsodium, fjpyj5791-96-64 08:54:00 Test Item Value Reference Range Interpretation Comments sodium, serum (test code = 2951-2) 143 mmol/L 134-144 [facility] Mountainurea nitrogen/creatinine ratio, [id number] 08:54:00 Test Item Value Reference Range Interpretation Comments urea nitrogen/creatinine 11 (unknown unit) 9-23 ratio, serum (test code = 3097-3) [facility] HealtheGFR if Hamwwdyd0262-16-16 08:54:00 Test Item Value Reference Range Interpretation Comments eGFR if 113 mL/min/{1.73 m2} >59 (test code = 44376-5) [facility] MountainEstimated Glomerular Filtration Rate (calc)2019-02-08 08:54:00 Test Item Value Reference Range Interpretation Comments Estimated Glomerular 98 mL/min/{1.73 m2} >59 Filtration Rate (calc) (test code = 01877-9) [facility]creatinine, qaxck3958-29-50 08:54:00 Test Item Value Reference Range Interpretation Comments creatinine, serum (test code = 0.64 mg/dL 0.57-1.00 2160-0) [facility] Mountainurea nitrogen, avfru4812-05-00 08:54:00 Test Item Value Reference Range Interpretation Comments urea nitrogen, blood (test code = 7 mg/dL 6-24 3094-0) [facility]blood glucose, boseag7773-16-96 08:54:00 Test Item Value Reference Range Interpretation Comments blood glucose, random (test code = 157 mg/dL 65-99 H 2339-0) [facility] Mountainimmature granulocytes, percentage of total cells, blood 2019-02-08 08:54:00 Test Item Value Reference Range Interpretation Comments immature granulocytes, percentage of 0 % total cells, blood (test code = 24174-5) [facility]basophil count, brfdlkhd7388-16-74 08:54:00 Test Item Value Reference Range Interpretation Comments basophil count, absolute (test 0.0 x10E3/uL 0.0-0.2 code = 18476-2) [facility] HealthEosinophil Absolute [id number] 08:54:00 Test Item Value Reference Range Interpretation Comments Eosinophil Absolute Count (test 0.2 X10E3/UL 0.0-0.4 code = 22872-6) [facility] Healthmonocyte count, blood, bfonskcpd1192-76-31 08:54:00 Test Item Value Reference Range Interpretation Comments monocyte count, blood, automated 0.6 X10E3/UL 0.1-0.9 (test code = 742-7) [facility] Healthlymphocyte count, blood, vbwgyfiqx6242-33-22 08:54:00 Test Item Value Reference Range Interpretation Comments lymphocyte count, blood, 1.2 X10E3/UL 0.7-3.1 automated (test code = 731-0) [facility] HealthAbsolute Xulpsutmvzr5009-74-68 08:54:00 Test Item Value Reference Range Interpretation Comments Absolute Neutrophils (test code 6.1 X10E3/UL 1.4-7.0 = 50913-1) [facility] Healthbasophils as percent of blood mwlcdshvhu9844-64-67 08:54:00 Test Item Value Reference Range Interpretation Comments basophils as percent of blood 0 % leukocytes (test code = 707-0) [facility] Healtheosinophils as percent of blood kbqywesknr3287-38-37 08:54:00 Test Item Value Reference Range Interpretation Comments eosinophils as percent of blood 2 % leukocytes (test code = 713-8) [facility] Healthmonocytes as percent of blood itimtltaoe9479-82-15 08:54:00 Test Item Value Reference Range Interpretation Comments monocytes as percent of blood 8 % leukocytes (test code = 5905-5) [facility] Healthlymphocytes as percent of blood hreopecskt1910-13-09 08:54:00 Test Item Value Reference Range Interpretation Comments lymphocytes as percent of blood 14 % leukocytes (test code = 736-9) [facility] Healthneutrophils as percent of blood gokxfzjfix6670-36-40 08:54:00 Test Item Value Reference Range Interpretation Comments neutrophils as percent of blood 76 % leukocytes (test code = 770-8) [facility] Mountainplatelet egjkh2802-61-93 08:54:00 Test Item Value Reference Range Interpretation Comments platelet count (test code = 213 X10E3/UL 150-379 777-3) [facility] Mountainred blood cell distribution cwiff1783-12-98 08:54:00 Test Item Value Reference Range Interpretation Comments red blood cell distribution width 13.6 % 12.3-15.4 (test code = 788-0) [facility] corpuscular hemoglobin concentration, [id number] 08:54:00 Test Item Value Reference Range Interpretation Comments mean corpuscular hemoglobin 33.7 G/DL 31.5-35.7 concentration, RBC (test code = 786-4) [facility] corpuscular hemoglobin, [id number] 08:54:00 Test Item Value Reference Range Interpretation Comments mean corpuscular hemoglobin, RBC 33.9 pg 26.6-33.0 H (test code = 785-6) [facility] corpuscular volume, [id number] 08:54:00 Test Item Value Reference Range Interpretation Comments mean corpuscular volume, RBC (test 101 fL 79-97 H code = 787-2) [facility] Mountainhematocrit, wmfri1497-91-67 08:54:00 Test Item Value Reference Range Interpretation Comments hematocrit, blood (test code = 4544-3) 43.3 % 34.0-46.6 [facility] Mountainhemoglobin, [id number] 08:54:00 Test Item Value Reference Range Interpretation Comments hemoglobin, blood (test code = 14.6 g/dL 11.1-15.9 718-7) [facility] Mountainerythrocyte (RBC) zbovq4649-00-87 08:54:00 Test Item Value Reference Range Interpretation Comments erythrocyte (RBC) count (test 4.31 X10E6/UL 3.77-5.28 code = 789-8) [facility] Mountainleukocyte count, dluvl7324-57-15 08:54:00 Test Item Value Reference Range Interpretation Comments leukocyte count, blood (test 8.0 X10E3/UL 3.4-10.8 code = 6690-2) [facility] MountainT-helper cells (CD4) as percent of blood lymphocytes 2019-02-08 08:54:00 Test Item Value Reference Range Interpretation Comments T-helper cells (CD4) as percent of 30.9 % 30.8-58.5 blood lymphocytes (test code = 8123-2) [facility] HealthT-helper cells (CD4) oioiv1791-47-33 08:54:00 Test Item Value Reference Range Interpretation Comments T-helper cells (CD4) count (test code 371 /UL 359-1519 = 76054-0) [facility]HIV-1RNA, serum, by PCR, guzsskvojsed4422-08-16 08:54:00 Test Item Value Reference Range Interpretation Comments HIV-1RNA, serum, by PCR, <20 copies/mL quantitative (test code = 37070-1) [facility] HealthCD4/CD8 mcigp6667-30-69 08:54:00 Test Item Value Reference Range Interpretation Comments CD4/CD8 ratio (test code 1.08 (unknown unit) 0.92-3.72 = 71960) [facility] MountainT-suppressor cells (CD8) as percent of blood lymphocytes 2019-02-08 08:54:00 Test Item Value Reference Range Interpretation Comments T-suppressor cells (CD8) as percent of 28.6 % 12.0-35.5 blood lymphocytes (test code = 3517) [facility] Mountainabsolute [id number] 08:54:00 Test Item Value Reference Range Interpretation Comments absolute CD8 (test code = 343 (unknown unit) 410-363 84568) [facility]HIV-1RNA, serum, by PCR, nmeyyubohatf4844-97-41 08:54:00 Test Item Value Reference Range Interpretation Comments HIV-1RNA, serum, by PCR, <20 copies/mL quantitative (test code = 49015) [facility] HealthCD4/CD8 jbnnm7505-56-48 08:54:00 Test Item Value Reference Range Interpretation Comments CD4/CD8 ratio (test code 1.08 (unknown unit) 0.92-3.72 = 62695) [facility] HealthT-suppressor cells (CD8) as percent of blood lymphocytes 2019-02-08 08:54:00 Test Item Value Reference Range Interpretation Comments T-suppressor cells (CD8) as percent of 28.6 % 12.0-35.5 blood lymphocytes (test code = 3517) [facility] Mountainabsolute [id number] 08:54:00 Test Item Value Reference Range Interpretation Comments absolute CD8 (test code = 343 (unknown unit) [phone]) [facility] MountainLDL cholesterol, qusca6750-10-89 08:51:00 Test Item Value Reference Range Interpretation Comments LDL cholesterol, serum (test code = 45 mg/dL 0-99 2088-1) [facility] Mountainvery low density dyzinajkjgli7343-65-20 08:51:00 Test Item Value Reference Range Interpretation Comments very low density lipoproteins (test 38 mg/dL 5-40 code = 2090-7) [facility] MountainHDL cholesterol, nxyev4355-42-22 08:51:00 Test Item Value Reference Range Interpretation Comments HDL cholesterol, serum (test code = 36 mg/dL >39 L 2084-9) [facility] Mountaintriglyceride, serum, ihcaqlc8449-45-09 08:51:00 Test Item Value Reference Range Interpretation Comments triglyceride, serum, fasting (test 188 mg/dL 0-149 H code = 2571-8) [facility] Mountaincholesterol, fdrcz9348-65-59 08:51:00 Test Item Value Reference Range Interpretation Comments cholesterol, serum (test code = 119 mg/dL 767-420 6421-3) [facility] MountainBASIC METABOLIC [id number] 02:25:00 Test Item Value Reference Range Interpretation [...] 8.4 mg/dL 8.0-10.5 N CA) [facility] PHONE# for [phone] or [phone] PHONE , FAX# CB W/AUTO [id number] 02:13:00 Test Item Value Reference Range Interpretation [...] (test code NO = MDIFF) [facility] PHONE# for [phone] or [phone] PHONE , FAX# Quantiferon Gold TB blood test for tuberculosis ibojnqdjd8437-50-75 10:19:59 Test Item Value Reference Range Interpretation Comments Quantiferon Gold TB blood test for negative tuberculosis screening (test code = 95847-6) [facility] MountainQuantiferon Gold TB blood test for tuberculosis screening 2018-09-26 08:58:00 Test Item Value Reference Range Interpretation Comments Quantiferon Gold TB blood test for Negative Negative tuberculosis screening (test code = 75600-6) [facility] Mountainhepatitis C antibody, [id number] 08:52:00 Test Item Value Reference Range Interpretation Comments hepatitis C antibody, 0.3 (unknown unit) 0.0-0.9 serum (test code = 5199-5) [facility] Mountainrapid plasma reagin antibody, veumq7742-74-13 08:52:00 Test Item Value Reference Range Interpretation Comments rapid plasma reagin antibody, Non Reactive Non Reactive serum (test code = 5291-0) [facility] MountainLDL cholesterol, vxikx1327-03-53 08:52:00 Test Item Value Reference Range Interpretation Comments LDL cholesterol, serum (test code = 69 mg/dL 0-99 2088-1) [facility] nlsraxgidtzg9412-63-32 08:52:00 Test Item Value Reference Range Interpretation Comments very low density lipoproteins (test 29 mg/dL 5-40 code = 1-7) [facility]HDL cholesterol, [id number] 08:52:00 Test Item Value Reference Range Interpretation Comments HDL cholesterol, serum (test code = 41 mg/dL >39 2085-9) [facility] Mountaintriglyceride, serum, jdiwrma6996-15-60 08:52:00 Test Item Value Reference Range Interpretation Comments triglyceride, serum, fasting (test 143 mg/dL 0-149 code = 2571-8) [facility] Mountaincholesterol, meqas6119-29-31 08:52:00 Test Item Value Reference Range Interpretation Comments cholesterol, serum (test code = 139 mg/dL 176-907 8428-3) [facility] Mountainalanine aminotransferase (SGPT), xfzvi7423-49-79 08:52:00 Test Item Value Reference Range Interpretation Comments alanine aminotransferase (SGPT), serum 11 1/L 0-32 (test code = 1742-6) [facility] Mountainaspartate aminotransferase (SGOT), tlgxj9581-78-00 08:52:00 Test Item Value Reference Range Interpretation Comments aspartate aminotransferase (SGOT), 12 1/L 0-40 serum (test code = 1920-8) [facility] Mountainalkaline phosphatase, zqmjh4945-79-63 08:52:00 Test Item Value Reference Range Interpretation Comments alkaline phosphatase, serum (test 141 1/L 39-117 H code = 1783-0) [facility]bilirubin, serum, [id number] 08:52:00 Test Item Value Reference Range Interpretation Comments bilirubin, serum, total (test code 0.3 mg/dL 0.0-1.2 = 1974-2) [facility] Mountainalbumin/globulin ratio, vvlmc2341-58-93 08:52:00 Test Item Value Reference Range Interpretation Comments albumin/globulin ratio, 1.7 (unknown unit) 1.2-2.2 serum (test code = 1759-0) [facility] Healthglobulin, zpqcz4545-07-89 08:52:00 Test Item Value Reference Range Interpretation Comments globulin, serum (test code 2.5 (unknown unit) 1.5-4.5 = 2336-6) [facility] Mountainalbumin, ijzpe4763-54-05 08:52:00 Test Item Value Reference Range Interpretation Comments albumin, serum (test code = 1751-7) 4.2 g/dL 3.5-5.5 [facility] total, [id number] 08:52:00 Test Item Value Reference Range Interpretation Comments protein, total, serum (test code = 6.7 g/dL 6.0-8.5 2885-2) [facility]calcium, [id number] 08:52:00 Test Item Value Reference Range Interpretation Comments calcium, serum (test code = 1999-8) 9.4 mg/dL 8.7-10.2 [facility]carbon dioxide, venous jjtte6790-06-20 08:52:00 Test Item Value Reference Range Interpretation Comments carbon dioxide, venous blood (test 26 mmol/L -29 code = 2026-1) [facility] Mountainchloride, [id number] 08:52:00 Test Item Value Reference Range Interpretation Comments chloride, serum (test code = 98 mmol/L 96-106 5-0) [facility] Mountainpotassium, [id number] 08:52:00 Test Item Value Reference Range Interpretation Comments potassium, serum (test code = 4.4 mmol/L 3.5-5.2 2823-3) [facility] Mountainsodium, [id number] 08:52:00 Test Item Value Reference Range Interpretation Comments sodium, serum (test code = 2951-2) 140 mmol/L 134-144 [facility] Mountainurea nitrogen/creatinine ratio, ymwlw5969-92-99 08:52:00 Test Item Value Reference Range Interpretation Comments urea nitrogen/creatinine 12 (unknown unit) 9-23 ratio, serum (test code = 3097-3) [facility] if Hjhbsetm9249-22-51 08:52:00 Test Item Value Reference Range Interpretation Comments eGFR if 98 mL/min/{1.73 m2} >59 (test code = 95071-0) [facility] MountainEstimated Glomerular Filtration Rate (calc)2018-09-26 08:52:00 Test Item Value Reference Range Interpretation Comments Estimated Glomerular 85 mL/min/{1.73 m2} >59 Filtration Rate (calc) (test code = 36231-4) [facility]creatinine, [id number] 08:52:00 Test Item Value Reference Range Interpretation Comments creatinine, serum (test code = 0.77 mg/dL 0.57-1.00 0-0) [facility] Mountainurea nitrogen, [id number] 08:52:00 Test Item Value Reference Range Interpretation Comments urea nitrogen, blood (test code = 9 mg/dL 6-24 3094-0) [facility]blood glucose, pborhi5373-31-31 08:52:00 Test Item Value Reference Range Interpretation Comments blood glucose, random (test code = 129 mg/dL 65-99 H 2339-0) [facility] Mountainimmature granulocytes, percentage of total cells, blood 2018-09-26 08:52:00 Test Item Value Reference Range Interpretation Comments immature granulocytes, percentage of 0 % total cells, blood (test code = 33958-7) [facility] Mountainbasophil count, [id number] 08:52:00 Test Item Value Reference Range Interpretation Comments basophil count, absolute (test 0.0 x10E3/uL 0.0-0.2 code = 18180-0) [facility] MountainEosinophil Absolute [id number] 08:52:00 Test Item Value Reference Range Interpretation Comments Eosinophil Absolute Count (test 0.2 X10E3/UL 0.0-0.4 code = 91549-8) [facility] Mountainmonocyte count, blood, fskentoqe1910-96-87 08:52:00 Test Item Value Reference Range Interpretation Comments monocyte count, blood, automated 0.6 X10E3/UL 0.1-0.9 (test code = 742-7) [facility] Mountainlymphocyte count, blood, wavxduhpp8955-16-32 08:52:00 Test Item Value Reference Range Interpretation Comments lymphocyte count, blood, 1.7 X10E3/UL 0.7-3.1 automated (test code = 731-0) [facility] MountainAbsolute Wgqovczmikt4615-59-58 08:52:00 Test Item Value Reference Range Interpretation Comments Absolute Neutrophils (test code 4.3 X10E3/UL 1.4-7.0 = 21330-9) [facility] Mountainbasophils as percent of blood apctgmxrdd9612-53-25 08:52:00 Test Item Value Reference Range Interpretation Comments basophils as percent of blood 0 % leukocytes (test code = 707-0) [facility] Mountaineosinophils as percent of blood wkkdzmdnpi5741-53-95 08:52:00 Test Item Value Reference Range Interpretation Comments eosinophils as percent of blood 3 % leukocytes (test code = 713-8) [facility] Healthmonocytes as percent of blood ohmjqxmbep4815-39-19 08:52:00 Test Item Value Reference Range Interpretation Comments monocytes as percent of blood 8 % leukocytes (test code = 5905-5) [facility]lymphocytes as percent of blood kcysbpqguh7733-90-33 08:52:00 Test Item Value Reference Range Interpretation Comments lymphocytes as percent of blood 25 % leukocytes (test code = 736-9) [facility] Mountainneutrophils as percent of blood tkrdlsdmop3767-68-53 08:52:00 Test Item Value Reference Range Interpretation Comments neutrophils as percent of blood 64 % leukocytes (test code = 770-8) [facility] Mountainplatelet [id number] 08:52:00 Test Item Value Reference Range Interpretation Comments platelet count (test code = 173 X10E3/UL 150-379 777-3) [facility] Mountainred blood cell distribution cacis8435-58-93 08:52:00 Test Item Value Reference Range Interpretation Comments red blood cell distribution width 12.4 % 12.3-15.4 (test code = 788-0) [facility] corpuscular hemoglobin concentration, [id number] 08:52:00 Test Item Value Reference Range Interpretation Comments mean corpuscular hemoglobin 34.0 G/DL 31.5-35.7 concentration, RBC (test code = 786-4) [facility] corpuscular hemoglobin, [id number] 08:52:00 Test Item Value Reference Range Interpretation Comments mean corpuscular hemoglobin, RBC 34.7 pg 26.6-33.0 H (test code = 785-6) [facility] corpuscular volume, [id number] 08:52:00 Test Item Value Reference Range Interpretation Comments mean corpuscular volume, RBC (test 102 fL 79-97 H code = 787-2) [facility]hematocrit, [id number] 08:52:00 Test Item Value Reference Range Interpretation Comments hematocrit, blood (test code = 4544-3) 40.9 % 34.0-46.6 [facility] Mountainhemoglobin, [id number] 08:52:00 Test Item Value Reference Range Interpretation Comments hemoglobin, blood (test code = 13.9 g/dL 11.1-15.9 718-7) [facility] Mountainerythrocyte (RBC) [id number] 08:52:00 Test Item Value Reference Range Interpretation Comments erythrocyte (RBC) count (test 4.01 X10E6/UL 3.77-5.28 code = 789-8) [facility] Mountainleukocyte count, qpfmy8197-80-35 08:52:00 Test Item Value Reference Range Interpretation Comments leukocyte count, blood (test 6.8 X10E3/UL 3.4-10.8 code = 6690-2) [facility] MountainT-helper cells (CD4) as percent of blood lymphocytes 2018-09-26 08:52:00 Test Item Value Reference Range Interpretation Comments T-helper cells (CD4) as percent of 25.9 % 30.8-58.5 L blood lymphocytes (test code = 8123-2) [facility] MountainT-helper cells (CD4) wriyp9799-70-13 08:52:00 Test Item Value Reference Range Interpretation Comments T-helper cells (CD4) count (test code 440 /UL 359-1519 = 63823-0) [facility] Mountainhepatitis C antibody, [id number] 08:52:00 Test Item Value Reference Range Interpretation Comments hepatitis C antibody, 0.3 (unknown unit) 0.0-0.9 serum (test code = 58191-0) [facility]HIV-1RNA, serum, by PCR, wlzgfynmsbmv2816-58-89 08:52:00 Test Item Value Reference Range Interpretation Comments HIV-1RNA, serum, by PCR, <20 copies/mL quantitative (test code = 09766-6) [facility] MountainCD4/CD8 [id number] 08:52:00 Test Item Value Reference Range Interpretation Comments CD4/CD8 ratio (test code 0.98 (unknown unit) 0.92-3.72 = 72391) [facility] MountainT-suppressor cells (CD8) as percent of blood lymphocytes 2018-09-26 08:52:00 Test Item Value Reference Range Interpretation Comments T-suppressor cells (CD8) as percent of 26.4 % 12.0-35.5 blood lymphocytes (test code = 3517) [facility] Mountainabsolute [id number] 08:52:00 Test Item Value Reference Range Interpretation Comments absolute CD8 (test code = 449 (unknown unit) 446-421 09787) [facility]HIV-1RNA, serum, by PCR, mhelcrvqejwx0373-02-43 08:52:00 Test Item Value Reference Range Interpretation Comments HIV-1RNA, serum, by PCR, <20 copies/mL quantitative (test code = 56885) [facility] MountainCD4/CD8 [id number] 08:52:00 Test Item Value Reference Range Interpretation Comments CD4/CD8 ratio (test code 0.98 (unknown unit) 0.92-3.72 = 92065) [facility] MountainT-suppressor cells (CD8) as percent of blood lymphocytes 2018-09-26 08:52:00 Test Item Value Reference Range Interpretation Comments T-suppressor cells (CD8) as percent of 26.4 % 12.0-35.5 blood lymphocytes (test code = 3517) [facility] Mountainabsolute [id number] 08:52:00 Test Item Value Reference Range Interpretation Comments absolute CD8 (test code = 449 (unknown unit) 965-793 66920) [facility] Mountaincholesterol, [id number] 09:22:00 Test Item Value Reference Range Interpretation Comments cholesterol, serum (test code = 154 mg/dL 984-900 0035-3) [facility] Mountainalanine aminotransferase (SGPT), nlaun1387-76-25 09:22:00 Test Item Value Reference Range Interpretation Comments alanine aminotransferase (SGPT), serum 6 1/L 0-32 (test code = 1742-6) [facility] Mountainaspartate aminotransferase (SGOT), josjl6570-65-72 09:22:00 Test Item Value Reference Range Interpretation Comments aspartate aminotransferase (SGOT), 8 1/L 0-40 serum (test code = 1920-8) [facility] Mountainalkaline phosphatase, [id number] 09:22:00 Test Item Value Reference Range Interpretation Comments alkaline phosphatase, serum (test code 93 1/L 39-117 = 1783-0) [facility]bilirubin, serum, [id number] 09:22:00 Test Item Value Reference Range Interpretation Comments bilirubin, serum, total (test code 0.2 mg/dL 0.0-1.2 = 1975-2) [facility] Healthalbumin/globulin ratio, qiyyd8528-20-37 09:22:00 Test Item Value Reference Range Interpretation Comments albumin/globulin ratio, 1.3 (unknown unit) 1.2-2.2 serum (test code = 1759-0) [facility] Healthglobulin, [id number] 09:22:00 Test Item Value Reference Range Interpretation Comments globulin, serum (test code 3.1 (unknown unit) 1.5-4.5 = 2336-6) [facility] Healthalbumin, [id number] 09:22:00 Test Item Value Reference Range Interpretation Comments albumin, serum (test code = 1751-7) 4.0 g/dL 3.5-5.5 [facility]protein, total, [id number] 09:22:00 Test Item Value Reference Range Interpretation Comments protein, total, serum (test code = 7.1 g/dL 6.0-8.5 2885-2) [facility]calcium, [id number] 09:22:00 Test Item Value Reference Range Interpretation Comments calcium, serum (test code = 1999-8) 9.6 mg/dL 8.7-10.2 [facility]carbon dioxide, venous [id number] 09:22:00 Test Item Value Reference Range Interpretation Comments carbon dioxide, venous blood (test 28 mmol/L 18-29 code = 7-1) [facility] Mountainchloride, [id number] 09:22:00 Test Item Value Reference Range Interpretation Comments chloride, serum (test code = 98 mmol/L 96-106 5-0) [facility] Mountainpotassium, efknm5164-09-06 09:22:00 Test Item Value Reference Range Interpretation Comments potassium, serum (test code = 4.5 mmol/L 3.5-5.2 2823-3) [facility] Mountainsodium, [id number] 09:22:00 Test Item Value Reference Range Interpretation Comments sodium, serum (test code = 2951-2) 140 mmol/L 134-144 [facility] Mountainurea nitrogen/creatinine ratio, itkvd8131-16-00 09:22:00 Test Item Value Reference Range Interpretation Comments urea nitrogen/creatinine 12 (unknown unit) 9-23 ratio, serum (test code = 3097-3) [facility] HealtheGFR if Iptjgrpv0451-15-38 09:22:00 Test Item Value Reference Range Interpretation Comments eGFR if 111 mL/min/{1.73 m2} >59 (test code = 92458-9) [facility] MountainEstimated Glomerular Filtration Rate (calc)2018-02-07 09:22:00 Test Item Value Reference Range Interpretation Comments Estimated Glomerular 96 mL/min/{1.73 m2} >59 Filtration Rate (calc) (test code = 14488-4) [facility] Mountaincreatinine, [id number] 09:22:00 Test Item Value Reference Range Interpretation Comments creatinine, serum (test code = 0.69 mg/dL 0.57-1.00 2160-0) [facility] Mountainurea nitrogen, [id number] 09:22:00 Test Item Value Reference Range Interpretation Comments urea nitrogen, blood (test code = 8 mg/dL 6-24 3094-0) [facility] Mountainblood glucose, xsmykv1527-07-91 09:22:00 Test Item Value Reference Range Interpretation Comments blood glucose, random (test code = 154 mg/dL 65-99 H 2339-0) [facility] Mountainimmature granulocytes, percentage of total cells, blood 2018-02-07 09:22:00 Test Item Value Reference Range Interpretation Comments immature granulocytes, percentage of 0 % total cells, blood (test code = 46916-9) [facility] Mountainbasophil count, [id number] 09:22:00 Test Item Value Reference Range Interpretation Comments basophil count, absolute (test 0.0 x10E3/uL 0.0-0.2 code = 02072-4) [facility] MountainEosinophil Absolute [id number] 09:22:00 Test Item Value Reference Range Interpretation Comments Eosinophil Absolute Count (test 0.1 X10E3/UL 0.0-0.4 code = 31157-3) [facility] Mountainmonocyte count, blood, kxewieosm4019-93-82 09:22:00 Test Item Value Reference Range Interpretation Comments monocyte count, blood, automated 0.4 X10E3/UL 0.1-0.9 (test code = 742-7) [facility] Mountainlymphocyte count, blood, xesincdhx4018-03-78 09:22:00 Test Item Value Reference Range Interpretation Comments lymphocyte count, blood, 1.4 X10E3/UL 0.7-3.1 automated (test code = 731-0) [facility]Absolute Qsytjxnohdg8168-19-16 09:22:00 Test Item Value Reference Range Interpretation Comments Absolute Neutrophils (test code 3.3 X10E3/UL 1.4-7.0 = 08915-1) [facility] Mountainbasophils as percent of blood ndjczoxgtj7163-11-91 09:22:00 Test Item Value Reference Range Interpretation Comments basophils as percent of blood 0 % leukocytes (test code = 707-0) [facility]aineosinophils as percent of blood hclyfnblyw5667-61-74 09:22:00 Test Item Value Reference Range Interpretation Comments eosinophils as percent of blood 2 % leukocytes (test code = 713-8) [facility] Mountainmonocytes as percent of blood eajgunhvdk0491-24-29 09:22:00 Test Item Value Reference Range Interpretation Comments monocytes as percent of blood 8 % leukocytes (test code = 5905-5) [facility] Mountainlymphocytes as percent of blood zhbuhfgble8185-68-52 09:22:00 Test Item Value Reference Range Interpretation Comments lymphocytes as percent of blood 26 % leukocytes (test code = 736-9) [facility] Mountainneutrophils as percent of blood fpqvxdmhfj7311-79-26 09:22:00 Test Item Value Reference Range Interpretation Comments neutrophils as percent of blood 64 % leukocytes (test code = 770-8) [facility] Mountainplatelet eoenl4743-96-66 09:22:00 Test Item Value Reference Range Interpretation Comments platelet count (test code = 194 X10E3/UL 150-379 777-3) [facility] Mountainred blood cell distribution rtofn6319-42-06 09:22:00 Test Item Value Reference Range Interpretation Comments red blood cell distribution width 14.1 % 12.3-15.4 (test code = 788-0) [facility] Mountainmean corpuscular hemoglobin concentration, [id number] 09:22:00 Test Item Value Reference Range Interpretation Comments mean corpuscular hemoglobin 33.9 G/DL 31.5-35.7 concentration, RBC (test code = 786-4) [facility]mean corpuscular hemoglobin, [id number] 09:22:00 Test Item Value Reference Range Interpretation Comments mean corpuscular hemoglobin, RBC 34.2 pg 26.6-33.0 H (test code = 785-6) [facility], [id number] 09:22:00 Test Item Value Reference Range Interpretation Comments mean corpuscular volume, RBC (test 101 fL 79-97 H code = 787-2) [facility]hematocrit, mdicn2196-82-42 09:22:00 Test Item Value Reference Range Interpretation Comments hematocrit, blood (test code = 4544-3) 41.3 % 34.0-46.6 [facility] Mountainhemoglobin, [id number] 09:22:00 Test Item Value Reference Range Interpretation Comments hemoglobin, blood (test code = 14.0 g/dL 11.1-15.9 718-7) [facility] Mountainerythrocyte (RBC) [id number] 09:22:00 Test Item Value Reference Range Interpretation Comments erythrocyte (RBC) count (test 4.09 X10E6/UL 3.77-5.28 code = 789-8) [facility] Mountainleukocyte count, [id number] 09:22:00 Test Item Value Reference Range Interpretation Comments leukocyte count, blood (test 5.1 X10E3/UL 3.4-10.8 code = 6690-2) [facility] MountainT-helper cells (CD4) as percent of blood lymphocytes 2018-02-07 09:22:00 Test Item Value Reference Range Interpretation Comments T-helper cells (CD4) as percent of 25.0 % 30.8-58.5 L blood lymphocytes (test code = 8123-2) [facility] MountainT-helper cells (CD4) hjnnt3249-13-85 09:22:00 Test Item Value Reference Range Interpretation Comments T-helper cells (CD4) count (test code 350 /UL 359-1519 L = 82545-2) [facility]HIV-1RNA, serum, by PCR, svbdilqlegex5514-29-95 09:22:00 Test Item Value Reference Range Interpretation Comments HIV-1RNA, serum, by PCR, <20 copies/mL quantitative (test code = 16130-6) [facility] MountainCD4/CD8 acrko8611-63-74 09:22:00 Test Item Value Reference Range Interpretation Comments CD4/CD8 ratio (test code 0.85 (unknown unit) 0.92-3.72 L = 57539) [facility] MountainT-suppressor cells (CD8) as percent of blood lymphocytes 2018-02-07 09:22:00 Test Item Value Reference Range Interpretation Comments T-suppressor cells (CD8) as percent of 29.5 % 12.0-35.5 blood lymphocytes (test code = 3517) [facility] Mountainabsolaxson [id number] 09:22:00 Test Item Value Reference Range Interpretation Comments absolute CD8 (test code = 413 (unknown unit) [phone]) [facility]HIV-1RNA, serum, by PCR, lezgagwbquze3255-76-78 09:22:00 Test Item Value Reference Range Interpretation Comments HIV-1RNA, serum, by PCR, <20 copies/mL quantitative (test code = 19814) [facility] MountainCD4/CD8 vkdzy4598-78-22 09:22:00 Test Item Value Reference Range Interpretation Comments CD4/CD8 ratio (test code 0.85 (unknown unit) 0.92-3.72 L = 26416) [facility] MountainT-suppressor cells (CD8) as percent of blood lymphocytes 2018-02-07 09:22:00 Test Item Value Reference Range Interpretation Comments T-suppressor cells (CD8) as percent of 29.5 % 12.0-35.5 blood lymphocytes (test code = 3517) [id number] 09:22:00 Test Item Value Reference Range Interpretation Comments absolute CD8 (test code = 413 (unknown unit) [phone]) [facility] Mountainrad plasma reagin antibody, [id number] 09:22:00 Test Item Value Reference Range Interpretation Comments rapid plasma reagin antibody, Non Reactive Non Reactive serum (test code = 5291-0) [facility] MountainLDL cholesterol, otpkq3890-22-26 09:22:00 Test Item Value Reference Range Interpretation Comments LDL cholesterol, serum (test code = 63 mg/dL 0-99 2088-1) [facility]very [facility] oavxcmolypvl2313-49-89 09:22:00 Test Item Value Reference Range Interpretation Comments very low density lipoproteins (test 53 mg/dL 5-40 H code = 1-7) [facility] akdek7800-15-96 09:22:00 Test Item Value Reference Range Interpretation Comments HDL cholesterol, serum (test code = 38 mg/dL >39 L 2084-9) [facility] Mountaintriglyceride, serum, [id number] 09:22:00 Test Item Value Reference Range Interpretation Comments triglyceride, serum, fasting (test 265 mg/dL 0-149 H code = 2571-8) [facility] Mountainrapid plasma reagin antibody, [id number] 10:27:00 Test Item Value Reference Range Interpretation Comments rapid plasma reagin antibody, Non Reactive Non Reactive serum (test code = 5291-0) [facility] MountainLDL cholesterol, [id number] 10:27:00 Test Item Value Reference Range Interpretation Comments LDL cholesterol, serum (test code = 63 mg/dL 0-99 2088-1) [facility] zejfezczqtqv9512-32-87 10:27:00 Test Item Value Reference Range Interpretation Comments very low density lipoproteins (test 32 mg/dL 5-40 code = 1-7) [facility], [id number] 10:27:00 Test Item Value Reference Range Interpretation Comments HDL cholesterol, serum (test code = 47 mg/dL >39 2084-9) [facility] Mountaintriglyceride, serum, [id number] 10:27:00 Test Item Value Reference Range Interpretation Comments triglyceride, serum, fasting (test 162 mg/dL 0-149 H code = 2571-8) [facility] Mountaincholesterol, [id number] 10:27:00 Test Item Value Reference Range Interpretation Comments cholesterol, serum (test code = 142 mg/dL 785-702 8529-3) [facility] Mountainalanine aminotransferase (SGPT), lttts1042-88-43 10:27:00 Test Item Value Reference Range Interpretation Comments alanine aminotransferase (SGPT), serum 9 1/L 0-32 (test code = 1742-6) [facility] Mountainaspartate aminotransferase (SGOT), xjqod4750-71-06 10:27:00 Test Item Value Reference Range Interpretation Comments aspartate aminotransferase (SGOT), 9 1/L 0-40 serum (test code = 1920-8) [facility] Healthalkaline phosphatase, [id number] 10:27:00 Test Item Value Reference Range Interpretation Comments alkaline phosphatase, serum (test 100 1/L 39-117 code = 1783-0) [facility] Healthbilirubin, serum, [id number] 10:27:00 Test Item Value Reference Range Interpretation Comments bilirubin, serum, total (test code 0.3 mg/dL 0.0-1.2 = 1975-2) [facility] Healthalbumin/globulin ratio, [id number] 10:27:00 Test Item Value Reference Range Interpretation Comments albumin/globulin ratio, 1.4 (unknown unit) 1.2-2.2 serum (test code = 1759-0) [facility] Healthglobulin, [id number] 10:27:00 Test Item Value Reference Range Interpretation Comments globulin, serum (test code 2.9 (unknown unit) 1.5-4.5 = 2336-6) [facility] Healthalbumin, [id number] 10:27:00 Test Item Value Reference Range Interpretation Comments albumin, serum (test code = 1751-7) 4.2 g/dL 3.5-5.5 [facility] Healthprotein, total, [id number] 10:27:00 Test Item Value Reference Range Interpretation Comments protein, total, serum (test code = 7.1 g/dL 6.0-8.5 2885-2) [facility] Healthcalcium, gmhet0531-93-27 10:27:00 Test Item Value Reference Range Interpretation Comments calcium, serum (test code = 1999-8) 9.6 mg/dL 8.7-10.2 [facility]carbon dioxide, venous [id number] 10:27:00 Test Item Value Reference Range Interpretation Comments carbon dioxide, venous blood (test 27 mmol/L 18-29 code = 2026-1) [facility] Mountainchloride, [id number] 10:27:00 Test Item Value Reference Range Interpretation Comments chloride, serum (test code = 96 mmol/L 96-106 5-0) [facility] Mountainpotassium, ysvos6118-90-18 10:27:00 Test Item Value Reference Range Interpretation Comments potassium, serum (test code = 5.1 mmol/L 3.5-5.2 2823-3) [facility] Mountainsodium, wnysm4840-38-75 10:27:00 Test Item Value Reference Range Interpretation Comments sodium, serum (test code = 2951-2) 138 mmol/L 134-144 [facility] Mountainurea nitrogen/creatinine ratio, kovtg7891-90-81 10:27:00 Test Item Value Reference Range Interpretation Comments urea nitrogen/creatinine 14 (unknown unit) 9-23 ratio, serum (test code = 3097-3) [facility] HealtheGFR if Hurhayps1440-86-04 10:27:00 Test Item Value Reference Range Interpretation Comments eGFR if 86 mL/min/{1.73 m2} >59 (test code = 38831-8) [facility] MountainEstimated Glomerular Filtration Rate (calc)2017-10-13 10:27:00 Test Item Value Reference Range Interpretation Comments Estimated Glomerular 74 mL/min/{1.73 m2} >59 Filtration Rate (calc) (test code = 06059-0) [facility] Mountaincreatinine, [id number] 10:27:00 Test Item Value Reference Range Interpretation Comments creatinine, serum (test code = 0.87 mg/dL 0.57-1.00 2160-0) [facility], [id number] 10:27:00 Test Item Value Reference Range Interpretation Comments urea nitrogen, blood (test code = 12 mg/dL 6-24 3094-0) [facility] glucose, jbawah7710-88-16 10:27:00 Test Item Value Reference Range Interpretation Comments blood glucose, random (test code = 119 mg/dL 65-99 H 2339-0) [facility]immature granulocytes, percentage of total cells, blood 2017-10-13 10:27:00 Test Item Value Reference Range Interpretation Comments immature granulocytes, percentage of 0 % total cells, blood (test code = 85439-7) [facility]ophil count, zutzywka9056-50-41 10:27:00 Test Item Value Reference Range Interpretation Comments basophil count, absolute (test 0.0 x10E3/uL 0.0-0.2 code = 20414-6) [facility] HealthEosinophil Absolute Ncfbi4899-38-22 10:27:00 Test Item Value Reference Range Interpretation Comments Eosinophil Absolute Count (test 0.1 X10E3/UL 0.0-0.4 code = 56838-0) [facility] Healthmonocyte count, blood, fqhqtsmbl2794-62-28 10:27:00 Test Item Value Reference Range Interpretation Comments monocyte count, blood, automated 0.5 X10E3/UL 0.1-0.9 (test code = 742-7) [facility] Healthlymphocyte count, blood, mnsbmvzke7053-23-19 10:27:00 Test Item Value Reference Range Interpretation Comments lymphocyte count, blood, 1.7 X10E3/UL 0.7-3.1 automated (test code = 731-0) [facility] HealthAbsolute Zicqsfaymlz4941-00-17 10:27:00 Test Item Value Reference Range Interpretation Comments Absolute Neutrophils (test code 5.4 X10E3/UL 1.4-7.0 = 21209-9) [facility] Healthbasophils as percent of blood efpsrjsdht8587-06-24 10:27:00 Test Item Value Reference Range Interpretation Comments basophils as percent of blood 0 % leukocytes (test code = 707-0) [facility] Healtheosinophils as percent of blood qbzforewvr5490-15-23 10:27:00 Test Item Value Reference Range Interpretation Comments eosinophils as percent of blood 1 % leukocytes (test code = 713-8) [facility] Healthmonocytes as percent of blood ecmljbqibj9988-22-37 10:27:00 Test Item Value Reference Range Interpretation Comments monocytes as percent of blood 7 % leukocytes (test code = 5905-5) [facility] Healthlymphocytes as percent of blood hurdwyocnd3953-24-23 10:27:00 Test Item Value Reference Range Interpretation Comments lymphocytes as percent of blood 22 % leukocytes (test code = 736-9) [facility] Healthneutrophils as percent of blood czqvoxccce3195-61-30 10:27:00 Test Item Value Reference Range Interpretation Comments neutrophils as percent of blood 70 % leukocytes (test code = 770-8) [facility] Healthplatelet gteum2506-25-85 10:27:00 Test Item Value Reference Range Interpretation Comments platelet count (test code = 193 X10E3/UL 150-379 777-3) [facility] cell distribution eksga7898-69-86 10:27:00 Test Item Value Reference Range Interpretation Comments red blood cell distribution width 13.7 % 12.3-15.4 (test code = 788-0) [facility] corpuscular hemoglobin concentration, [id number] 10:27:00 Test Item Value Reference Range Interpretation Comments mean corpuscular hemoglobin 35.0 G/DL 31.5-35.7 concentration, RBC (test code = 786-4) [facility] corpuscular hemoglobin, [id number] 10:27:00 Test Item Value Reference Range Interpretation Comments mean corpuscular hemoglobin, RBC 35.6 pg 26.6-33.0 H (test code = 785-6) [facility] corpuscular volume, [id number] 10:27:00 Test Item Value Reference Range Interpretation Comments mean corpuscular volume, RBC (test 102 fL 79-97 H code = 787-2) [facility]hematocrit, [id number] 10:27:00 Test Item Value Reference Range Interpretation Comments hematocrit, blood (test code = 4544-3) 43.7 % 34.0-46.6 [facility] Mountainhemoglobin, xydon0621-55-14 10:27:00 Test Item Value Reference Range Interpretation Comments hemoglobin, blood (test code = 15.3 g/dL 11.1-15.9 718-7) [facility] Mountainerythrocyte (RBC) gyfov9512-82-23 10:27:00 Test Item Value Reference Range Interpretation Comments erythrocyte (RBC) count (test 4.30 X10E6/UL 3.77-5.28 code = 789-8) [facility] Mountainleukocyte count, rvdjc9115-42-54 10:27:00 Test Item Value Reference Range Interpretation Comments leukocyte count, blood (test 7.7 X10E3/UL 3.4-10.8 code = 6690-2) [facility] MountainT-helper cells (CD4) as percent of blood lymphocytes 2017-10-13 10:27:00 Test Item Value Reference Range Interpretation Comments T-helper cells (CD4) as percent of 19.4 % 30.8-58.5 L blood lymphocytes (test code = 8123-2) [facility] HealthT-helper cells (CD4) galnd7294-47-30 10:27:00 Test Item Value Reference Range Interpretation Comments T-helper cells (CD4) count (test code 330 /UL 359-1519 L = 94454-2) [facility] HealthHIV-1RNA, serum, by PCR, rrzolrhotpqg1357-47-84 10:27:00 Test Item Value Reference Range Interpretation Comments HIV-1RNA, serum, by PCR, quantitative 50 /mL (test code = 39867-8) [facility] HealthCD4/CD8 mddnb0148-97-17 10:27:00 Test Item Value Reference Range Interpretation Comments CD4/CD8 ratio (test code 0.70 (unknown unit) 0.92-3.72 L = 79920) [facility] MountainT-suppressor cells (CD8) as percent of blood lymphocytes 2017-10-13 10:27:00 Test Item Value Reference Range Interpretation Comments T-suppressor cells (CD8) as percent of 27.8 % 12.0-35.5 blood lymphocytes (test code = 3517) [facility] [id number] 10:27:00 Test Item Value Reference Range Interpretation Comments absolute CD8 (test code = 473 (unknown unit) 889-684 59658) [facility]HIV-1RNA, serum, by PCR, wavqjvwstecs7174-47-96 10:27:00 Test Item Value Reference Range Interpretation Comments HIV-1RNA, serum, by PCR, quantitative 50 /mL (test code = 03970) [facility] HealthCD4/CD8 llkle4107-41-44 10:27:00 Test Item Value Reference Range Interpretation Comments CD4/CD8 ratio (test code 0.70 (unknown unit) 0.92-3.72 L = 50722) [facility] MountainT-suppressor cells (CD8) as percent of blood lymphocytes 2017-10-13 10:27:00 Test Item Value Reference Range Interpretation Comments T-suppressor cells (CD8) as percent of 27.8 % 12.0-35.5 blood lymphocytes (test code = 3517) [facility] Mountainabsolaxson [id number] 10:27:00 Test Item Value Reference Range Interpretation Comments absolute CD8 (test code = 473 (unknown unit) 823-382 05047) [facility] Mountainrapid plasma reagin antibody, ufheq3855-89-28 13:13:00 Test Item Value Reference Range Interpretation Comments rapid plasma reagin antibody, Non Reactive Non Reactive serum (test code = 5291-0) [facility] MountainLDL cholesterol, srbai3451-52-79 13:13:00 Test Item Value Reference Range Interpretation Comments LDL cholesterol, serum (test code = 38 mg/dL 0-99 2088-1) [facility] Mountainvery low density mwswvbxmgrbw6003-27-16 13:13:00 Test Item Value Reference Range Interpretation Comments very low density lipoproteins (test 24 mg/dL 5-40 code = 2091-7) [facility] MountainHDL cholesterol, qehay9002-87-38 13:13:00 Test Item Value Reference Range Interpretation Comments HDL cholesterol, serum (test code = 36 mg/dL >39 L 2084-9) [facility] Mountaintriglyceride, serum, wrpxtco2462-88-14 13:13:00 Test Item Value Reference Range Interpretation Comments triglyceride, serum, fasting (test 119 mg/dL 0-149 code = 2571-8) [facility] Mountaincholesterol, rbjxm7631-97-29 13:13:00 Test Item Value Reference Range Interpretation Comments cholesterol, serum (test code = 98 mg/dL 100-199 L 3-3) [facility] Mountainalanine aminotransferase (SGPT), hkosy7731-79-16 13:13:00 Test Item Value Reference Range Interpretation Comments alanine aminotransferase (SGPT), serum 19 1/L 0-32 (test code = 1742-6) [facility] Mountainaspartate aminotransferase (SGOT), pafwl0672-39-81 13:13:00 Test Item Value Reference Range Interpretation Comments aspartate aminotransferase (SGOT), 18 1/L 0-40 serum (test code = 1920-8) [facility] Mountainalkaline phosphatase, vuepb0991-26-54 13:13:00 Test Item Value Reference Range Interpretation Comments alkaline phosphatase, serum (test 110 1/L 39-117 code = 1783-0) [facility]bilirubin, serum, yapiz8974-15-33 13:13:00 Test Item Value Reference Range Interpretation Comments bilirubin, serum, total (test code 0.3 mg/dL 0.0-1.2 = 1975-2) [facility] Healthalbumin/globulin ratio, qslka1836-06-70 13:13:00 Test Item Value Reference Range Interpretation Comments albumin/globulin ratio, 1.4 (unknown unit) 1.2-2.2 serum (test code = 1759-0) [facility] Healthglobulin, fyqtz8526-60-29 13:13:00 Test Item Value Reference Range Interpretation Comments globulin, serum (test code 2.7 (unknown unit) 1.5-4.5 = 2336-6) [facility] Healthalbumin, tojlr1546-74-22 13:13:00 Test Item Value Reference Range Interpretation Comments albumin, serum (test code = 1751-7) 3.8 g/dL 3.5-5.5 [facility]protein, total, qzkzm1080-42-38 13:13:00 Test Item Value Reference Range Interpretation Comments protein, total, serum (test code = 6.5 g/dL 6.0-8.5 2885-2) [facility] Mountaincalcium, [id number] 13:13:00 Test Item Value Reference Range Interpretation Comments calcium, serum (test code = 1999-8) 8.9 mg/dL 8.7-10.2 [facility]carbon dioxide, venous euify8475-29-01 13:13:00 Test Item Value Reference Range Interpretation Comments carbon dioxide, venous blood (test 24 mmol/L - code = 7-1) [facility] Mountainchloride, lorex2848-95-13 13:13:00 Test Item Value Reference Range Interpretation Comments chloride, serum (test code = 100 mmol/L 96-106 5-0) [facility] Mountainpotassium, wxkrb0340-88-65 13:13:00 Test Item Value Reference Range Interpretation Comments potassium, serum (test code = 4.1 mmol/L 3.5-5.2 2823-3) [facility] Mountainsodium, [id number] 13:13:00 Test Item Value Reference Range Interpretation Comments sodium, serum (test code = 2951-2) 142 mmol/L 134-144 [facility]a nitrogen/creatinine ratio, bparm5580-36-61 13:13:00 Test Item Value Reference Range Interpretation Comments urea nitrogen/creatinine 13 (unknown unit) 9- ratio, serum (test code = 3097-3) [facility] HealtheGFR if Lopbyayu6779-66-89 13:13:00 Test Item Value Reference Range Interpretation Comments eGFR if 102 mL/min/{1.73 m2} >59 (test code = 30922-0) [facility] MountainEstimated Glomerular Filtration Rate (calc)2017-05-25 13:13:00 Test Item Value Reference Range Interpretation Comments Estimated Glomerular 89 mL/min/{1.73 m2} >59 Filtration Rate (calc) (test code = 11509-8) [facility] Mountaincreatinine, ftddo7497-06-79 13:13:00 Test Item Value Reference Range Interpretation Comments creatinine, serum (test code = 0.75 mg/dL 0.57-1.00 2160-0) [facility]urea nitrogen, [id number] 13:13:00 Test Item Value Reference Range Interpretation Comments urea nitrogen, blood (test code = 10 mg/dL 6-24 3094-0) [facility] Mountainblood glucose, aobzkh5873-84-73 13:13:00 Test Item Value Reference Range Interpretation Comments blood glucose, random (test code = 123 mg/dL 65-99 H 2339-0) [facility] Mountainimmature granulocytes, percentage of total cells, blood 2017-05-25 13:13:00 Test Item Value Reference Range Interpretation Comments immature granulocytes, percentage of 0 % total cells, blood (test code = 97360-4) [facility] Mountainbasophil count, sswuqksu2705-79-99 13:13:00 Test Item Value Reference Range Interpretation Comments basophil count, absolute (test 0.0 x10E3/uL 0.0-0.2 code = 20888-3) [facility] MountainEosinophil Absolute [id number] 13:13:00 Test Item Value Reference Range Interpretation Comments Eosinophil Absolute Count (test 0.1 X10E3/UL 0.0-0.4 code = 73406-7) [facility] Mountainmonocyte count, blood, ibotqcagr4412-88-25 13:13:00 Test Item Value Reference Range Interpretation Comments monocyte count, blood, automated 0.6 X10E3/UL 0.1-0.9 (test code = 742-7) [facility] Mountainlymphocyte count, blood, lmuayphir0751-78-83 13:13:00 Test Item Value Reference Range Interpretation Comments lymphocyte count, blood, 0.9 X10E3/UL 0.7-3.1 automated (test code = 731-0) [facility] MountainAbsolute Cwzdnaykogx7928-02-70 13:13:00 Test Item Value Reference Range Interpretation Comments Absolute Neutrophils (test code 3.6 X10E3/UL 1.4-7.0 = 75874-5) [facility] Mountainbasophils as percent of blood gsrcqrkwuc2796-04-22 13:13:00 Test Item Value Reference Range Interpretation Comments basophils as percent of blood 0 % leukocytes (test code = 707-0) [facility] Mountaineosinophils as percent of blood wsgzxlusfa5197-95-79 13:13:00 Test Item Value Reference Range Interpretation Comments eosinophils as percent of blood 2 % leukocytes (test code = 713-8) [facility] Mountainmonocytes as percent of blood ncathwbiwt8441-34-91 13:13:00 Test Item Value Reference Range Interpretation Comments monocytes as percent of blood 11 % leukocytes (test code = 5905-5) [facility] Mountainlymphocytes as percent of blood nozloifxbl4108-42-54 13:13:00 Test Item Value Reference Range Interpretation Comments lymphocytes as percent of blood 17 % leukocytes (test code = 736-9) [facility] Mountainneutrophils as percent of blood qaowptrtwr3123-38-85 13:13:00 Test Item Value Reference Range Interpretation Comments neutrophils as percent of blood 70 % leukocytes (test code = 770-8) [facility] Mountainplatelet viptg6345-78-32 13:13:00 Test Item Value Reference Range Interpretation Comments platelet count (test code = 159 X10E3/UL 150-379 777-3) [facility]red blood cell distribution jrzig9062-06-99 13:13:00 Test Item Value Reference Range Interpretation Comments red blood cell distribution width 12.4 % 12.3-15.4 (test code = 788-0) [facility] Mountainmean corpuscular hemoglobin concentration, [id number] 13:13:00 Test Item Value Reference Range Interpretation Comments mean corpuscular hemoglobin 35.4 G/DL 31.5-35.7 concentration, RBC (test code = 786-4) [facility]mean corpuscular hemoglobin, [id number] 13:13:00 Test Item Value Reference Range Interpretation Comments mean corpuscular hemoglobin, RBC 35.0 pg 26.6-33.0 H (test code = 785-6) [facility]mean corpuscular volume, [id number] 13:13:00 Test Item Value Reference Range Interpretation Comments mean corpuscular volume, RBC (test code 99 fL 79-97 H = 787-2) [facility] Mountainhematocrit, ysxmi7952-97-34 13:13:00 Test Item Value Reference Range Interpretation Comments hematocrit, blood (test code = 4544-3) 40.4 % 34.0-46.6 [facility] Mountainhemoglobin, awkkk2790-75-98 13:13:00 Test Item Value Reference Range Interpretation Comments hemoglobin, blood (test code = 14.3 g/dL 11.1-15.9 718-7) [facility] Mountainerythrocyte (RBC) eluyn2608-22-80 13:13:00 Test Item Value Reference Range Interpretation Comments erythrocyte (RBC) count (test 4.09 X10E6/UL 3.77-5.28 code = 789-8) [facility] Mountainleukocyte count, hvoyu5949-09-45 13:13:00 Test Item Value Reference Range Interpretation Comments leukocyte count, blood (test 5.1 X10E3/UL 3.4-10.8 code = 6690-2) [facility] MountainT-helper cells (CD4) as percent of blood lymphocytes 2017-05-25 13:13:00 Test Item Value Reference Range Interpretation Comments T-helper cells (CD4) as percent of 15.7 % 30.8-58.5 L blood lymphocytes (test code = 8123-2) [facility] MountainT-helper cells (CD4) xitkw0880-82-34 13:13:00 Test Item Value Reference Range Interpretation Comments T-helper cells (CD4) count (test code 141 /UL 359-1519 L = 41511-6) [facility] MountainHIV-1RNA, serum, by PCR, khelqywlkviz9451-69-98 13:13:00 Test Item Value Reference Range Interpretation Comments HIV-1RNA, serum, by PCR, 51591 /mL quantitative (test code = 95981-5) [facility] MountainCD4/CD8 cdien3090-37-51 13:13:00 Test Item Value Reference Range Interpretation Comments CD4/CD8 ratio (test code 0.51 (unknown unit) 0.92-3.72 L = 12335) [facility] MountainT-suppressor cells (CD8) as percent of blood lymphocytes 2017-05-25 13:13:00 Test Item Value Reference Range Interpretation Comments T-suppressor cells (CD8) as percent of 30.7 % 12.0-35.5 blood lymphocytes (test code = 3517) [facility] [id number] 13:13:00 Test Item Value Reference Range Interpretation Comments absolute CD8 (test code = 276 (unknown unit) 493-648 80422) [facility]HIV-1RNA, serum, by PCR, pxzbocmoxugi7803-36-61 13:13:00 Test Item Value Reference Range Interpretation Comments HIV-1RNA, serum, by PCR, 89657 /mL quantitative (test code = 83519) [facility] MountainCD4/CD8 kzkmw0748-04-40 13:13:00 Test Item Value Reference Range Interpretation Comments CD4/CD8 ratio (test code 0.51 (unknown unit) 0.92-3.72 L = 15708) [facility] MountainT-suppressor cells (CD8) as percent of blood lymphocytes 2017-05-25 13:13:00 Test Item Value Reference Range Interpretation Comments T-suppressor cells (CD8) as percent of 30.7 % 12.0-35.5 blood lymphocytes (test code = 3517) [facility] [id number] 13:13:00 Test Item Value Reference Range Interpretation Comments absolute CD8 (test code = 276 (unknown unit) 910-949 58771) [facility] Mountainrapid plasma reagin antibody, qfrnm1161-73-95 09:12:00 Test Item Value Reference Range Interpretation Comments rapid plasma reagin antibody, Non Reactive Non Reactive serum (test code = 5291-0) [facility]alanine aminotransferase (SGPT), vhvjy3502-76-76 09:12:00 Test Item Value Reference Range Interpretation Comments alanine aminotransferase (SGPT), serum 12 1/L 0-32 (test code = 1742-6) [facility] Healthaspartate aminotransferase (SGOT), dnvmk4483-08-88 09:12:00 Test Item Value Reference Range Interpretation Comments aspartate aminotransferase (SGOT), 12 1/L 0-40 serum (test code = 1920-8) [facility] Mountainalkaline phosphatase, knqpy8388-51-88 09:12:00 Test Item Value Reference Range Interpretation Comments alkaline phosphatase, serum (test 146 1/L 39-117 H code = 1783-0) [facility] Healthbilirubin, serum, sppne9580-59-07 09:12:00 Test Item Value Reference Range Interpretation Comments bilirubin, serum, total (test code 0.3 mg/dL 0.0-1.2 = 1975-2) [facility] Healthalbumin/globulin ratio, pqvnz9902-24-32 09:12:00 Test Item Value Reference Range Interpretation Comments albumin/globulin ratio, 1.6 (unknown unit) 1.2-2.2 serum (test code = 1759-0) [facility] Healthglobulin, iqqqq1306-13-21 09:12:00 Test Item Value Reference Range Interpretation Comments globulin, serum (test code 2.5 (unknown unit) 1.5-4.5 = 2336-6) [facility] Healthalbumin, thkku7326-40-55 09:12:00 Test Item Value Reference Range Interpretation Comments albumin, serum (test code = 1751-7) 3.9 g/dL 3.5-5.5 [facility]protein, total, xlush9909-64-58 09:12:00 Test Item Value Reference Range Interpretation Comments protein, total, serum (test code = 6.4 g/dL 6.0-8.5 2885-2) [facility] Mountaincalcium, kwdlu6426-47-54 09:12:00 Test Item Value Reference Range Interpretation Comments calcium, serum (test code = 1999-8) 9.0 mg/dL 8.7-10.2 [facility] Mountaincarbon dioxide, venous umnim2435-77-15 09:12:00 Test Item Value Reference Range Interpretation Comments carbon dioxide, venous blood (test 24 mmol/L 18-29 code = 7-1) [facility] Mountainchloride, autsh5432-77-99 09:12:00 Test Item Value Reference Range Interpretation Comments chloride, serum (test code = 95 mmol/L 96-106 L 2075-0) [facility] Healthpotassium, smygn8455-86-53 09:12:00 Test Item Value Reference Range Interpretation Comments potassium, serum (test code = 4.5 mmol/L 3.5-5.2 2823-3) [facility] Mountainsodium, emgjq6011-97-83 09:12:00 Test Item Value Reference Range Interpretation Comments sodium, serum (test code = 2951-2) 135 mmol/L 134-144 [facility]urea nitrogen/creatinine ratio, parka5038-19-98 09:12:00 Test Item Value Reference Range Interpretation Comments urea nitrogen/creatinine 10 (unknown unit) 9-23 ratio, serum (test code = 3097-3) [facility] HealtheGFR if Yzorxydz2768-20-13 09:12:00 Test Item Value Reference Range Interpretation Comments eGFR if 106 mL/min/{1.73 m2} >59 (test code = 74057-9) [facility] MountainEstimated Glomerular Filtration Rate (calc)2017-03-01 09:12:00 Test Item Value Reference Range Interpretation Comments Estimated Glomerular 92 mL/min/{1.73 m2} >59 Filtration Rate (calc) (test code = 82451-1) [facility] Mountaincreatinine, mqqfd4962-02-32 09:12:00 Test Item Value Reference Range Interpretation Comments creatinine, serum (test code = 0.73 mg/dL 0.57-1.00 2160-0) [facility] Mountainurea nitrogen, njonc6618-64-99 09:12:00 Test Item Value Reference Range Interpretation Comments urea nitrogen, blood (test code = 7 mg/dL 6-24 3094-0) [facility] Mountainblood glucose, dmarlg6323-81-31 09:12:00 Test Item Value Reference Range Interpretation Comments blood glucose, random (test code = 130 mg/dL 65-99 H 2339-0) [facility] Mountainimmature granulocytes, percentage of total cells, blood 2017-03-01 09:12:00 Test Item Value Reference Range Interpretation Comments immature granulocytes, percentage of 0 % total cells, blood (test code = 77949-0) [facility] Mountainbasophil count, lozyaiav8726-47-85 09:12:00 Test Item Value Reference Range Interpretation Comments basophil count, absolute (test 0.0 x10E3/uL 0.0-0.2 code = 35915-3) [facility] HealthEosinophil Absolute Fiqcz8611-86-34 09:12:00 Test Item Value Reference Range Interpretation Comments Eosinophil Absolute Count (test 0.1 X10E3/UL 0.0-0.4 code = 74375-9) [facility] Healthmonocyte count, blood, ptxwefusl6878-61-52 09:12:00 Test Item Value Reference Range Interpretation Comments monocyte count, blood, automated 0.4 X10E3/UL 0.1-0.9 (test code = 742-7) [facility]lymphocyte count, blood, jykhhuqdv2659-14-98 09:12:00 Test Item Value Reference Range Interpretation Comments lymphocyte count, blood, 1.1 X10E3/UL 0.7-3.1 automated (test code = 731-0) [facility] HealthAbsolute Qgwtpygoypn8721-22-46 09:12:00 Test Item Value Reference Range Interpretation Comments Absolute Neutrophils (test code 3.7 X10E3/UL 1.4-7.0 = 27915-3) [facility] Healthbasophils as percent of blood jdptzotlsk6453-84-82 09:12:00 Test Item Value Reference Range Interpretation Comments basophils as percent of blood 0 % leukocytes (test code = 707-0) [facility] Healtheosinophils as percent of blood vtqkmyyvma4639-74-19 09:12:00 Test Item Value Reference Range Interpretation Comments eosinophils as percent of blood 3 % leukocytes (test code = 713-8) [facility] Healthmonocytes as percent of blood wowwdzwiir2909-16-01 09:12:00 Test Item Value Reference Range Interpretation Comments monocytes as percent of blood 7 % leukocytes (test code = 5905-5) [facility] Mountainlymphocytes as percent of blood ifqylbfjfa2422-60-85 09:12:00 Test Item Value Reference Range Interpretation Comments lymphocytes as percent of blood 21 % leukocytes (test code = 736-9) [facility] Mountainneutrophils as percent of blood flhotrmqfv8883-23-91 09:12:00 Test Item Value Reference Range Interpretation Comments neutrophils as percent of blood 69 % leukocytes (test code = 770-8) [facility] Mountainplatelet uakwf2459-97-26 09:12:00 Test Item Value Reference Range Interpretation Comments platelet count (test code = 233 X10E3/UL 150-379 777-3) [facility] Mountainred blood cell distribution [id number] 09:12:00 Test Item Value Reference Range Interpretation Comments red blood cell distribution width 13.1 % 12.3-15.4 (test code = 788-0) [facility] corpuscular hemoglobin concentration, [id number] 09:12:00 Test Item Value Reference Range Interpretation Comments mean corpuscular hemoglobin 34.4 G/DL 31.5-35.7 concentration, RBC (test code = 786-4) [facility] corpuscular hemoglobin, [id number] 09:12:00 Test Item Value Reference Range Interpretation Comments mean corpuscular hemoglobin, RBC 35.0 pg 26.6-33.0 H (test code = 785-6) [facility] corpuscular volume, [id number] 09:12:00 Test Item Value Reference Range Interpretation Comments mean corpuscular volume, RBC (test 102 fL 79-97 H code = 787-2) [facility] [id number] 09:12:00 Test Item Value Reference Range Interpretation Comments hematocrit, blood (test code = 4544-3) 42.2 % 34.0-46.6 [facility], [id number] 09:12:00 Test Item Value Reference Range Interpretation Comments hemoglobin, blood (test code = 14.5 g/dL 11.1-15.9 718-7) [facility]erythrocyte (RBC) [id number] 09:12:00 Test Item Value Reference Range Interpretation Comments erythrocyte (RBC) count (test 4.14 X10E6/UL 3.77-5.28 code = 789-8) [facility]leukocyte count, [id number] 09:12:00 Test Item Value Reference Range Interpretation Comments leukocyte count, blood (test 5.3 X10E3/UL 3.4-10.8 code = 6690-2) [facility] ([facility]) as percent of blood lymphocytes 2017-03-01 09:12:00 Test Item Value Reference Range Interpretation Comments T-helper cells (CD4) as percent of 19.0 % 30.8-58.5 L blood lymphocytes (test code = 8123-2) [facility] Health[facility] (CD[facility]) [id number] 09:12:00 Test Item Value Reference Range Interpretation Comments T-helper cells (CD4) count (test code 209 /UL 359-1519 L = 81414-8) [facility] HealthHIV-1RNA, serum, by PCR, dvcgekwrmxxy6008-32-80 09:12:00 Test Item Value Reference Range Interpretation Comments HIV-1RNA, serum, by PCR, <20 copies/mL quantitative (test code = 51516) [facility] HealthCD4/CD8 [id number] 09:12:00 Test Item Value Reference Range Interpretation Comments CD4/CD8 ratio (test code 0.68 (unknown unit) 0.92-3.72 L = 12276) [facility] MountainT-suppressor cells (CD8) as percent of blood lymphocytes 2017-03-01 09:12:00 Test Item Value Reference Range Interpretation Comments T-suppressor cells (CD8) as percent of 27.9 % 12.0-35.5 blood lymphocytes (test code = 3517) [facility] Healthabsolute [id number] 09:12:00 Test Item Value Reference Range Interpretation Comments absolute CD8 (test code = 307 (unknown unit) 794-901 87889) [facility]HIV-1RNA, serum, by PCR, tiupjawelsmg2049-00-01 09:12:00 Test Item Value Reference Range Interpretation Comments HIV-1RNA, serum, by PCR, <20 copies/mL quantitative (test code = 26668-3) [facility] HealthCD4/CD8 [id number] 09:12:00 Test Item Value Reference Range Interpretation Comments CD4/CD8 ratio (test code 0.68 (unknown unit) 0.92-3.72 L = 21261) [facility] HealthT-suppressor cells (CD8) as percent of blood lymphocytes 2017-03-01 09:12:00 Test Item Value Reference Range Interpretation Comments T-suppressor cells (CD8) as percent of 27.9 % 12.0-35.5 blood lymphocytes (test code = 3517) [facility] [id number] 09:12:00 Test Item Value Reference Range Interpretation Comments absolute CD8 (test code = 307 (unknown unit) [phone]) [facility] MountainNeisseria gonorrhoeae DNA [id number] 11:00:00 Test Item Value Reference Range Interpretation Comments Neisseria gonorrhoeae DNA probe Negative Negative (test code = 64911-1) [facility] Mountainchlamydia DNA [id number] 11:00:00 Test Item Value Reference Range Interpretation Comments chlamydia DNA probe (test code = Negative Negative 95554-5) [facility] MountainQuantiferon Gold TB blood test for tuberculosis screening 2016-10-19 08:07:00 Test Item Value Reference Range Interpretation Comments Quantiferon Gold TB blood test for Negative Negative tuberculosis screening (test code = 79117-1) [facility] Mountainrapid plasma reagin antibody, [id number] 08:07:00 Test Item Value Reference Range Interpretation Comments rapid plasma reagin antibody, Non Reactive Non Reactive serum (test code = 5291-0) [facility] MountainLDL cholesterol, [id number] 08:07:00 Test Item Value Reference Range Interpretation Comments LDL cholesterol, serum (test code = 53 mg/dL 0-99 2088-1) [facility] Mountainvery low density xfuftddvxciv9690-00-91 08:07:00 Test Item Value Reference Range Interpretation Comments very low density lipoproteins (test 26 mg/dL 5-40 code = 2091-7) [facility] MountainHDL cholesterol, [id number] 08:07:00 Test Item Value Reference Range Interpretation Comments HDL cholesterol, serum (test code = 43 mg/dL >39 2084-9) [facility] Mountaintriglyceride, serum, [id number] 08:07:00 Test Item Value Reference Range Interpretation Comments triglyceride, serum, fasting (test 128 mg/dL 0-149 code = 2571-8) [facility] Mountaincholesterol, [id number] 08:07:00 Test Item Value Reference Range Interpretation Comments cholesterol, serum (test code = 122 mg/dL 613-326 5013-3) [facility] Mountainalanine aminotransferase (SGPT), [id number] 08:07:00 Test Item Value Reference Range Interpretation Comments alanine aminotransferase (SGPT), serum 18 1/L 0-32 (test code = 1742-6) [facility] Mountainaspartate aminotransferase (SGOT), [id number] 08:07:00 Test Item Value Reference Range Interpretation Comments aspartate aminotransferase (SGOT), 13 1/L 0-40 serum (test code = 1920-8) [facility] Mountainalkaline phosphatase, ohqkc0327-31-00 08:07:00 Test Item Value Reference Range Interpretation Comments alkaline phosphatase, serum (test 156 1/L 39-117 H code = 1783-0) [facility] Healthbilirubin, serum, [id number] 08:07:00 Test Item Value Reference Range Interpretation Comments bilirubin, serum, total (test code 0.4 mg/dL 0.0-1.2 = 1975-2) [facility] Healthalbumin/globulin ratio, [id number] 08:07:00 Test Item Value Reference Range Interpretation Comments albumin/globulin ratio, 1.8 (unknown unit) 1.1-2.5 serum (test code = 1759-0) [facility] Healthglobulin, [id number] 08:07:00 Test Item Value Reference Range Interpretation Comments globulin, serum (test code 2.4 (unknown unit) 1.5-4.5 = 2336-6) [facility] Healthalbumin, [id number] 08:07:00 Test Item Value Reference Range Interpretation Comments albumin, serum (test code = 1751-7) 4.3 g/dL 3.5-5.5 [facility] Healthprotein, total, [id number] 08:07:00 Test Item Value Reference Range Interpretation Comments protein, total, serum (test code = 6.7 g/dL 6.0-8.5 2885-2) [facility] Healthcalcium, [id number] 08:07:00 Test Item Value Reference Range Interpretation Comments calcium, serum (test code = 1999-8) 9.4 mg/dL 8.7-10.2 [facility]carbon dioxide, venous [id number] 08:07:00 Test Item Value Reference Range Interpretation Comments carbon dioxide, venous blood (test 28 mmol/L 18-29 code = 7-1) [facility] Healthchloride, [id number] 08:07:00 Test Item Value Reference Range Interpretation Comments chloride, serum (test code = 93 mmol/L 97-106 L 2075-0) [facility] Healthpotassium, [id number] 08:07:00 Test Item Value Reference Range Interpretation Comments potassium, serum (test code = 4.5 mmol/L 3.5-5.2 2823-3) [facility] Mountainsodium, [id number] 08:07:00 Test Item Value Reference Range Interpretation Comments sodium, serum (test code = 2951-2) 136 mmol/L 136-144 [facility] Mountainurea nitrogen/creatinine ratio, skljj9523-41-03 08:07:00 Test Item Value Reference Range Interpretation Comments urea nitrogen/creatinine 10 (unknown unit) 9-23 ratio, serum (test code = 3097-3) [facility] HealtheGFR if Vpcmcxst1194-51-09 08:07:00 Test Item Value Reference Range Interpretation Comments eGFR if 100 mL/min/{1.73 m2} >59 (test code = 02107-0) [facility] MountainEstimated Glomerular Filtration Rate (calc)2016-10-19 08:07:00 Test Item Value Reference Range Interpretation Comments Estimated Glomerular 87 mL/min/{1.73 m2} >59 Filtration Rate (calc) (test code = 07824-3) [facility] Mountaincreatinine, [id number] 08:07:00 Test Item Value Reference Range Interpretation Comments creatinine, serum (test code = 0.77 mg/dL 0.57-1.00 2160-0) [facility] Mountainurea nitrogen, iyajl6430-04-69 08:07:00 Test Item Value Reference Range Interpretation Comments urea nitrogen, blood (test code = 8 mg/dL 6-24 3094-0) [facility] Mountainblood glucose, [id number] 08:07:00 Test Item Value Reference Range Interpretation Comments blood glucose, random (test code = 152 mg/dL 65-99 H 2339-0) [facility] Mountainimmature granulocytes, percentage of total cells, blood 2016-10-19 08:07:00 Test Item Value Reference Range Interpretation Comments immature granulocytes, percentage of 0 % total cells, blood (test code = 10672-1) [facility] Mountainbasophil count, [id number] 08:07:00 Test Item Value Reference Range Interpretation Comments basophil count, absolute (test 0.0 x10E3/uL 0.0-0.2 code = 82018-0) [facility] HealthEosinophil Absolute [id number] 08:07:00 Test Item Value Reference Range Interpretation Comments Eosinophil Absolute Count (test 0.2 X10E3/UL 0.0-0.4 code = 39266-7) [facility] Healthmonocyte count, blood, ltxbucfms2101-06-11 08:07:00 Test Item Value Reference Range Interpretation Comments monocyte count, blood, automated 0.5 X10E3/UL 0.1-0.9 (test code = 742-7) [facility] Mountainlymphocyte count, blood, [id number] 08:07:00 Test Item Value Reference Range Interpretation Comments lymphocyte count, blood, 1.7 X10E3/UL 0.7-3.1 automated (test code = 731-0) [facility] MountainAbsolute Rubwoocxlxe9355-95-22 08:07:00 Test Item Value Reference Range Interpretation Comments Absolute Neutrophils (test code 5.2 X10E3/UL 1.4-7.0 = 81467-4) [facility] Mountainbasophils as percent of blood kslfpzuroi0126-87-81 08:07:00 Test Item Value Reference Range Interpretation Comments basophils as percent of blood 0 % leukocytes (test code = 707-0) [facility] Healtheosinophils as percent of blood osvnctmjks5995-14-04 08:07:00 Test Item Value Reference Range Interpretation Comments eosinophils as percent of blood 3 % leukocytes (test code = 713-8) [facility] Healthmonocytes as percent of blood zvwezvlbfk5692-29-12 08:07:00 Test Item Value Reference Range Interpretation Comments monocytes as percent of blood 6 % leukocytes (test code = 5905-5) [facility] Mountainlymphocytes as percent of blood sttrepnvqc6538-62-33 08:07:00 Test Item Value Reference Range Interpretation Comments lymphocytes as percent of blood 22 % leukocytes (test code = 736-9) [facility] Healthneutrophils as percent of blood nludggbasw7307-66-97 08:07:00 Test Item Value Reference Range Interpretation Comments neutrophils as percent of blood 69 % leukocytes (test code = 770-8) [facility] Mountainplatelet dmltg2024-31-31 08:07:00 Test Item Value Reference Range Interpretation Comments platelet count (test code = 257 X10E3/UL 150-379 777-3) [facility] Mountainred blood cell distribution [id number] 08:07:00 Test Item Value Reference Range Interpretation Comments red blood cell distribution width 12.9 % 12.3-15.4 (test code = 788-0) [facility] corpuscular hemoglobin concentration, [id number] 08:07:00 Test Item Value Reference Range Interpretation Comments mean corpuscular hemoglobin 34.3 G/DL 31.5-35.7 concentration, RBC (test code = 786-4) [facility], [id number] 08:07:00 Test Item Value Reference Range Interpretation Comments mean corpuscular hemoglobin, RBC 34.5 pg 26.6-33.0 H (test code = 785-6) [facility], [id number] 08:07:00 Test Item Value Reference Range Interpretation Comments mean corpuscular volume, RBC (test 101 fL 79-97 H code = 787-2) [facility]hematocrit, knggp0845-90-19 08:07:00 Test Item Value Reference Range Interpretation Comments hematocrit, blood (test code = 4544-3) 44.6 % 34.0-46.6 [facility] Mountainhemoglobin, [id number] 08:07:00 Test Item Value Reference Range Interpretation Comments hemoglobin, blood (test code = 15.3 g/dL 11.1-15.9 718-7) [facility] Mountainerythrocyte (RBC) fzzbz4166-24-12 08:07:00 Test Item Value Reference Range Interpretation Comments erythrocyte (RBC) count (test 4.43 X10E6/UL 3.77-5.28 code = 789-8) [facility] Mountainleukocyte count, [id number] 08:07:00 Test Item Value Reference Range Interpretation Comments leukocyte count, blood (test 7.7 X10E3/UL 3.4-10.8 code = 6690-2) [facility] HealthT-helper cells (CD4) as percent of blood lymphocytes 2016-10-19 08:07:00 Test Item Value Reference Range Interpretation Comments T-helper cells (CD4) as percent of 22.0 % 30.8-58.5 L blood lymphocytes (test code = 8123-2) [facility] HealthT-helper cells (CD4) eplvi8242-29-89 08:07:00 Test Item Value Reference Range Interpretation Comments T-helper cells (CD4) count (test code 374 /UL 359-1519 = 71161-0) [facility] HealthHIV-1RNA, serum, by PCR, yiwlgffvjkqp2548-22-74 08:07:00 Test Item Value Reference Range Interpretation Comments HIV-1RNA, serum, by PCR, <20 copies/mL quantitative (test code = 94146) [facility] HealthCD4/CD8 [id number] 08:07:00 Test Item Value Reference Range Interpretation Comments CD4/CD8 ratio (test code 0.84 (unknown unit) 0.92-3.72 L = 57075) [facility] MountainT-suppressor cells (CD8) as percent of blood lymphocytes 2016-10-19 08:07:00 Test Item Value Reference Range Interpretation Comments T-suppressor cells (CD8) as percent of 26.3 % 12.0-35.5 blood lymphocytes (test code = 3517) [facility] Healthabsolute [id number] 08:07:00 Test Item Value Reference Range Interpretation Comments absolute CD8 (test code = 447 (unknown unit) 746-122 06825) [facility] HealthHIV-1RNA, serum, by PCR, womkingvnikd2915-00-63 08:07:00 Test Item Value Reference Range Interpretation Comments HIV-1RNA, serum, by PCR, <20 copies/mL quantitative (test code = 33701-6) [facility] HealthCD4/CD8 [id number] 08:07:00 Test Item Value Reference Range Interpretation Comments CD4/CD8 ratio (test code 0.84 (unknown unit) 0.92-3.72 L = 36752) [facility] HealthT-suppressor cells (CD8) as percent of blood lymphocytes 2016-10-19 08:07:00 Test Item Value Reference Range Interpretation Comments T-suppressor cells (CD8) as percent of 26.3 % 12.0-35.5 blood lymphocytes (test code = 3517) [facility]absolute [id number] 08:07:00 Test Item Value Reference Range Interpretation Comments absolute CD8 (test code = 447 (unknown unit) 989-820 85776) [facility] Mountainhepatitis C antibody, [id number] 09:14:00 Test Item Value Reference Range Interpretation Comments hepatitis C antibody, 0.2 (unknown unit) 0.0-0.9 serum (test code = 5199-5) [facility] Mountainvitamin D 25-hydroxy, zooqg0962-30-70 09:14:00 Test Item Value Reference Range Interpretation Comments vitamin D 25-hydroxy, serum (test 27.6 ng/mL 30.0-100.0 L code = 98774-0) [facility] Mountainrapid plasma reagin antibody, pjjjl5287-56-60 09:14:00 Test Item Value Reference Range Interpretation Comments rapid plasma reagin antibody, Non Reactive Non Reactive serum (test code = 5291-0) [facility] MountainLDL cholesterol, lkvdm8556-07-38 09:14:00 Test Item Value Reference Range Interpretation Comments LDL cholesterol, serum (test code = 82 mg/dL 0-99 2088-1) [facility] Mountainvery low density yblpwhmfzraq7464-19-22 09:14:00 Test Item Value Reference Range Interpretation Comments very low density lipoproteins (test 40 mg/dL 5-40 code = 2091-7) [facility] MountainHDL cholesterol, hlsrj3527-09-11 09:14:00 Test Item Value Reference Range Interpretation Comments HDL cholesterol, serum (test code = 42 mg/dL >39 2084-9) [facility] Mountaintriglyceride, serum, pjtaicp9124-52-33 09:14:00 Test Item Value Reference Range Interpretation Comments triglyceride, serum, fasting (test 199 mg/dL 0-149 H code = 2571-8) [facility] Mountaincholesterol, [id number] 09:14:00 Test Item Value Reference Range Interpretation Comments cholesterol, serum (test code = 164 mg/dL 621-340 8680-3) [facility] Mountainalanine aminotransferase (SGPT), hckcy5654-69-36 09:14:00 Test Item Value Reference Range Interpretation Comments alanine aminotransferase (SGPT), serum 12 1/L 0-32 (test code = 1742-6) [facility] Mountainaspartate aminotransferase (SGOT), zbnwj0165-19-03 09:14:00 Test Item Value Reference Range Interpretation Comments aspartate aminotransferase (SGOT), 14 1/L 0-40 serum (test code = 1920-8) [facility] Mountainalkaline phosphatase, ynlgr7064-30-28 09:14:00 Test Item Value Reference Range Interpretation Comments alkaline phosphatase, serum (test 169 1/L 39-117 H code = 1783-0) [facility] Mountainbilirubin, serum, [id number] 09:14:00 Test Item Value Reference Range Interpretation Comments bilirubin, serum, total (test code 0.4 mg/dL 0.0-1.2 = 1975-2) [facility] Healthalbumin/globulin ratio, iwlxm2473-10-45 09:14:00 Test Item Value Reference Range Interpretation Comments albumin/globulin ratio, 1.8 (unknown unit) 1.1-2.5 serum (test code = 1759-0) [facility] Healthglobulin, jswlb9869-21-07 09:14:00 Test Item Value Reference Range Interpretation Comments globulin, serum (test code 2.4 (unknown unit) 1.5-4.5 = 2336-6) [facility] Healthalbumin, anfuz5637-03-24 09:14:00 Test Item Value Reference Range Interpretation Comments albumin, serum (test code = 1751-7) 4.3 g/dL 3.5-5.5 [facility] Healthprotein, total, [id number] 09:14:00 Test Item Value Reference Range Interpretation Comments protein, total, serum (test code = 6.7 g/dL 6.0-8.5 2885-2) [facility] Healthcalcium, [id number] 09:14:00 Test Item Value Reference Range Interpretation Comments calcium, serum (test code = 2000-8) 9.4 mg/dL 8.7-10.2 [facility]carbon dioxide, venous [id number] 09:14:00 Test Item Value Reference Range Interpretation Comments carbon dioxide, venous blood (test 24 mmol/L 18-29 code = 2027-1) [facility] Healthchloride, yawwm9912-34-06 09:14:00 Test Item Value Reference Range Interpretation Comments chloride, serum (test code = 96 mmol/L 97-108 L 2075-0) [facility] Healthpotassium, cnpql8376-05-11 09:14:00 Test Item Value Reference Range Interpretation Comments potassium, serum (test code = 4.4 mmol/L 3.5-5.2 2823-3) [facility] Mountainsodium, setwl9000-52-21 09:14:00 Test Item Value Reference Range Interpretation Comments sodium, serum (test code = 2951-2) 137 mmol/L 134-144 [facility] Mountainurea nitrogen/creatinine ratio, evyyr8378-32-27 09:14:00 Test Item Value Reference Range Interpretation Comments urea nitrogen/creatinine 13 (unknown unit) 9-23 ratio, serum (test code = 3097-3) [facility] HealtheGFR if Oyjsfwjh8248-91-57 09:14:00 Test Item Value Reference Range Interpretation Comments eGFR if 117 mL/min/{1.73 m2} >59 (test code = 09628-4) [facility] MountainEstimated Glomerular Filtration Rate (calc)2016-07-01 09:14:00 Test Item Value Reference Range Interpretation Comments Estimated Glomerular 102 mL/min/{1.73 m2} >59 Filtration Rate (calc) (test code = 62475-5) [facility] Mountaincreatinine, gbjfa8922-40-08 09:14:00 Test Item Value Reference Range Interpretation Comments creatinine, serum (test code = 0.61 mg/dL 0.57-1.00 2160-0) [facility] Mountainurea nitrogen, ehvyv1348-22-15 09:14:00 Test Item Value Reference Range Interpretation Comments urea nitrogen, blood (test code = 8 mg/dL 6-24 3094-0) [facility] Mountainblood glucose, mpldvr3820-60-38 09:14:00 Test Item Value Reference Range Interpretation Comments blood glucose, random (test code = 106 mg/dL 65-99 H 2339-0) [facility] Mountainimmature granulocytes, percentage of total cells, blood 2016-07-01 09:14:00 Test Item Value Reference Range Interpretation Comments immature granulocytes, percentage of 0 % total cells, blood (test code = 53117-9) [facility] Mountainbasophil count, herbcsip3350-42-68 09:14:00 Test Item Value Reference Range Interpretation Comments basophil count, absolute (test 0.0 x10E3/uL 0.0-0.2 code = 38119-2) [facility] HealthEosinophil Absolute Ivpam9197-37-02 09:14:00 Test Item Value Reference Range Interpretation Comments Eosinophil Absolute Count (test 0.3 X10E3/UL 0.0-0.4 code = 38021-4) [facility] Healthmonocyte count, blood, atgoddtnj2289-25-89 09:14:00 Test Item Value Reference Range Interpretation Comments monocyte count, blood, automated 0.4 X10E3/UL 0.1-0.9 (test code = 742-7) [facility] Mountainlymphocyte count, blood, nczpimapa3841-05-76 09:14:00 Test Item Value Reference Range Interpretation Comments lymphocyte count, blood, 1.5 X10E3/UL 0.7-3.1 automated (test code = 731-0) [facility] MountainAbsolute Zdarkdpczhd3704-76-32 09:14:00 Test Item Value Reference Range Interpretation Comments Absolute Neutrophils (test code 3.6 X10E3/UL 1.4-7.0 = 26710-4) [facility] Mountainbasophils as percent of blood wzdjjcxabv8225-24-44 09:14:00 Test Item Value Reference Range Interpretation Comments basophils as percent of blood 0 % leukocytes (test code = 707-0) [facility] Healtheosinophils as percent of blood tdsdldanxl4856-71-66 09:14:00 Test Item Value Reference Range Interpretation Comments eosinophils as percent of blood 5 % leukocytes (test code = 713-8) [facility] Healthmonocytes as percent of blood yrhmlcvhqj1957-38-70 09:14:00 Test Item Value Reference Range Interpretation Comments monocytes as percent of blood 7 % leukocytes (test code = 5905-5) [facility] Mountainlymphocytes as percent of blood ovehpecrmh6197-13-25 09:14:00 Test Item Value Reference Range Interpretation Comments lymphocytes as percent of blood 25 % leukocytes (test code = 736-9) [facility] Healthneutrophils as percent of blood lmmjfwwyhq4485-50-81 09:14:00 Test Item Value Reference Range Interpretation Comments neutrophils as percent of blood 63 % leukocytes (test code = 770-8) [facility] Mountainplatelet hcaix6538-52-94 09:14:00 Test Item Value Reference Range Interpretation Comments platelet count (test code = 210 X10E3/UL 150-379 777-3) [facility] Mountainred blood cell distribution ombth5389-01-99 09:14:00 Test Item Value Reference Range Interpretation Comments red blood cell distribution width 13.2 % 12.3-15.4 (test code = 788-0) [facility], [id number] 09:14:00 Test Item Value Reference Range Interpretation Comments mean corpuscular hemoglobin 35.0 G/DL 31.5-35.7 concentration, RBC (test code = 786-4) [facility], [id number] 09:14:00 Test Item Value Reference Range Interpretation Comments mean corpuscular hemoglobin, RBC 35.2 pg 26.6-33.0 H (test code = 785-6) [facility], [id number] 09:14:00 Test Item Value Reference Range Interpretation Comments mean corpuscular volume, RBC (test 101 fL 79-97 H code = 787-2) [facility] Mountainhematocrit, xorlc0938-03-05 09:14:00 Test Item Value Reference Range Interpretation Comments hematocrit, blood (test code = 4544-3) 40.8 % 34.0-46.6 [facility] [place]hemoglobin[place] [id number] 09:14:00 Test Item Value Reference Range Interpretation Comments hemoglobin, blood (test code = 14.3 g/dL 11.1-15.9 718-7) [facility]throcyte (RBC) [id number] 09:14:00 Test Item Value Reference Range Interpretation Comments erythrocyte (RBC) count (test 4.06 X10E6/UL 3.77-5.28 code = 789-8) [facility]leukocyte count, [id number] 09:14:00 Test Item Value Reference Range Interpretation Comments leukocyte count, blood (test 5.8 X10E3/UL 3.4-10.8 code = 6690-2) [facility] MountainT-helper cells (CD4) as percent of blood lymphocytes 2016-07-01 09:14:00 Test Item Value Reference Range Interpretation Comments T-helper cells (CD4) as percent of 19.2 % 30.8-58.5 L blood lymphocytes (test code = 8123-2) [facility] MountainT-helper cells (CD4) [id number] 09:14:00 Test Item Value Reference Range Interpretation Comments T-helper cells (CD4) count (test code 288 /UL 359-1519 L = 22262-2) [facility] [id number] 09:14:00 Test Item Value Reference Range Interpretation Comments hepatitis B surface antigen (test Negative Negative code = 79) [facility] MountainHIV-1RNA, serum, by PCR, [id number] 09:14:00 Test Item Value Reference Range Interpretation Comments HIV-1RNA, serum, by PCR, quantitative 30 /mL (test code = 33067) [facility] MountainCD4/CD8 [id number] 09:14:00 Test Item Value Reference Range Interpretation Comments CD4/CD8 ratio (test code 0.68 (unknown unit) 0.92-3.72 L = 29037) [facility] MountainT-suppressor cells (CD8) as percent of blood lymphocytes 2016-07-01 09:14:00 Test Item Value Reference Range Interpretation Comments T-suppressor cells (CD8) as percent of 28.2 % 12.0-35.5 blood lymphocytes (test code = 3517) [facility]absolute [id number] 09:14:00 Test Item Value Reference Range Interpretation Comments absolute CD8 (test code = 423 (unknown unit) 363-411 69074) [facility] mbzqzqk7760-15-74 09:14:00 Test Item Value Reference Range Interpretation Comments hepatitis B surface antigen (test Negative Negative code = 33548-6) [facility], [id number] 09:14:00 Test Item Value Reference Range Interpretation Comments hepatitis C antibody, 0.2 (unknown unit) 0.0-0.9 serum (test code = 94221-0) [facility]HIV-1RNA, serum, by PCR, duhttdlgxprs0823-24-10 09:14:00 Test Item Value Reference Range Interpretation Comments HIV-1RNA, serum, by PCR, quantitative 30 /mL (test code = 80108-7) [facility] MountainCD4/CD8 [id number] 09:14:00 Test Item Value Reference Range Interpretation Comments CD4/CD8 ratio (test code 0.68 (unknown unit) 0.92-3.72 L = 65415) [facility] MountainT-suppressor cells (CD8) as percent of blood lymphocytes 2016-07-01 09:14:00 Test Item Value Reference Range Interpretation Comments T-suppressor cells (CD8) as percent of 28.2 % 12.0-35.5 blood lymphocytes (test code = 3517) [facility] Mountainabsolute [id number] 09:14:00 Test Item Value Reference Range Interpretation Comments absolute CD8 (test code = 423 (unknown unit) 109-527 85389) [facility] Mountainrapid plasma reagin antibody, [id number] 09:42:00 Test Item Value Reference Range Interpretation Comments rapid plasma reagin antibody, Non Reactive Non Reactive serum (test code = 5291-0) [facility] MountainLDL cholesterol, [id number] 09:42:00 Test Item Value Reference Range Interpretation Comments LDL cholesterol, serum (test code = 58 mg/dL 0-99 2088-1) [facility] Mountainvery low density shckvsjbwxqn7664-76-25 09:42:00 Test Item Value Reference Range Interpretation Comments very low density lipoproteins (test 32 mg/dL 5-40 code = 1-7) [facility] MountainHDL cholesterol, [id number] 09:42:00 Test Item Value Reference Range Interpretation Comments HDL cholesterol, serum (test code = 43 mg/dL >39 5-9) [facility] Mountaintriglyceride, serum, [id number] 09:42:00 Test Item Value Reference Range Interpretation Comments triglyceride, serum, fasting (test 161 mg/dL 0-149 H code = 2571-8) [facility] Mountaincholesterol, [id number] 09:42:00 Test Item Value Reference Range Interpretation Comments cholesterol, serum (test code = 133 mg/dL 988-613 0459-3) [facility] Mountainalanine aminotransferase (SGPT), [id number] 09:42:00 Test Item Value Reference Range Interpretation Comments alanine aminotransferase (SGPT), serum 15 1/L 0-32 (test code = 1742-6) [facility] Mountainaspartate aminotransferase (SGOT), [id number] 09:42:00 Test Item Value Reference Range Interpretation Comments aspartate aminotransferase (SGOT), 16 1/L 0-40 serum (test code = 1920-8) [facility] Mountainalkaline phosphatase, [id number] 09:42:00 Test Item Value Reference Range Interpretation Comments alkaline phosphatase, serum (test 130 1/L 39-117 H code = 1783-0) [facility]bilirubin, serum, [id number] 09:42:00 Test Item Value Reference Range Interpretation Comments bilirubin, serum, total (test code 0.3 mg/dL 0.0-1.2 = 1975-2) [facility] Mountainalbumin/globulin ratio, [id number] 09:42:00 Test Item Value Reference Range Interpretation Comments albumin/globulin ratio, 1.5 (unknown unit) 1.1-2.5 serum (test code = 1759-0) [facility] Healthglobulin, [id number] 09:42:00 Test Item Value Reference Range Interpretation Comments globulin, serum (test code 2.7 (unknown unit) 1.5-4.5 = 2336-6) [facility] Healthalbumin, [id number] 09:42:00 Test Item Value Reference Range Interpretation Comments albumin, serum (test code = 1751-7) 4.1 g/dL 3.5-5.5 [facility] [place]protein, total, [id number] 09:42:00 Test Item Value Reference Range Interpretation Comments protein, total, serum (test code = 6.8 g/dL 6.0-8.5 2885-2) [facility] Mountaincalcium, [id number] 09:42:00 Test Item Value Reference Range Interpretation Comments calcium, serum (test code = 1999-8) 9.4 mg/dL 8.7-10.2 [facility] Mountaincarbon dioxide, venous munar8948-40-68 09:42:00 Test Item Value Reference Range Interpretation Comments carbon dioxide, venous blood (test 29 mmol/L 18-29 code = 2027-1) [facility] Healthchloride, xjpfy7836-72-13 09:42:00 Test Item Value Reference Range Interpretation Comments chloride, serum (test code = 104 mmol/L 97-108 2075-0) [facility] Healthpotassium, [id number] 09:42:00 Test Item Value Reference Range Interpretation Comments potassium, serum (test code = 4.4 mmol/L 3.5-5.2 2823-3) [facility] Mountainsodium, ehkak4210-57-06 09:42:00 Test Item Value Reference Range Interpretation Comments sodium, serum (test code = 2951-2) 145 mmol/L 134-144 H [facility] Mountainurea nitrogen/creatinine ratio, [id number] 09:42:00 Test Item Value Reference Range Interpretation Comments urea nitrogen/creatinine 20 (unknown unit) 9-23 ratio, serum (test code = 3097-3) [facility] HealtheGFR if Etjeadqi7638-73-17 09:42:00 Test Item Value Reference Range Interpretation Comments eGFR if 117 mL/min/{1.73 m2} >59 (test code = 03759-5) [facility] MountainEstimated Glomerular Filtration Rate (calc)2016-01-27 09:42:00 Test Item Value Reference Range Interpretation Comments Estimated Glomerular 102 mL/min/{1.73 m2} >59 Filtration Rate (calc) (test code = 30831-7) [facility] Mountaincreatinine, [id number] 09:42:00 Test Item Value Reference Range Interpretation Comments creatinine, serum (test code = 0.61 mg/dL 0.57-1.00 2160-0) [facility] Mountainurea nitrogen, tjmyg1708-05-11 09:42:00 Test Item Value Reference Range Interpretation Comments urea nitrogen, blood (test code = 12 mg/dL 6-24 3094-0) [facility] Mountainblood glucose, brscge6122-98-17 09:42:00 Test Item Value Reference Range Interpretation Comments blood glucose, random (test code = 127 mg/dL 65-99 H 2339-0) [facility] Mountainimmature granulocytes, percentage of total cells, blood 2016-01-27 09:42:00 Test Item Value Reference Range Interpretation Comments immature granulocytes, percentage of 0 % total cells, blood (test code = 09690-2) [facility] Mountainbasophil count, [id number] 09:42:00 Test Item Value Reference Range Interpretation Comments basophil count, absolute (test 0.0 x10E3/uL 0.0-0.2 code = 72437-1) [facility] HealthEosinophil Absolute [id number] 09:42:00 Test Item Value Reference Range Interpretation Comments Eosinophil Absolute Count (test 0.3 X10E3/UL 0.0-0.4 code = 68858-2) [facility] Healthmonocyte count, blood, [id number] 09:42:00 Test Item Value Reference Range Interpretation Comments monocyte count, blood, automated 0.4 X10E3/UL 0.1-0.9 (test code = 742-7) [facility] Mountainlymphocyte count, blood, wbajskjws9990-13-70 09:42:00 Test Item Value Reference Range Interpretation Comments lymphocyte count, blood, 1.4 X10E3/UL 0.7-3.1 automated (test code = 731-0) [facility] HealthAbsolute Dcuucqnwref5647-37-69 09:42:00 Test Item Value Reference Range Interpretation Comments Absolute Neutrophils (test code 3.2 X10E3/UL 1.4-7.0 = 29730-2) [facility] Mountainbasophils as percent of blood lxctaawkks4478-55-60 09:42:00 Test Item Value Reference Range Interpretation Comments basophils as percent of blood 0 % leukocytes (test code = 707-0) [facility] Healtheosinophils as percent of blood glberunone2562-74-27 09:42:00 Test Item Value Reference Range Interpretation Comments eosinophils as percent of blood 5 % leukocytes (test code = 713-8) [facility] Healthmonocytes as percent of blood lilypcsvzu0942-33-53 09:42:00 Test Item Value Reference Range Interpretation Comments monocytes as percent of blood 7 % leukocytes (test code = 5905-5) [facility] Mountainlymphocytes as percent of blood wybpopdmfk2509-21-75 09:42:00 Test Item Value Reference Range Interpretation Comments lymphocytes as percent of blood 26 % leukocytes (test code = 736-9) [facility] Mountainneutrophils as percent of blood ovczjahwbl8152-20-75 09:42:00 Test Item Value Reference Range Interpretation Comments neutrophils as percent of blood 62 % leukocytes (test code = 770-8) [facility] Mountainplatelet krotz1295-77-00 09:42:00 Test Item Value Reference Range Interpretation Comments platelet count (test code = 197 X10E3/UL 150-379 777-3) [facility] Mountainred blood cell distribution mbiqp9338-12-15 09:42:00 Test Item Value Reference Range Interpretation Comments red blood cell distribution width 13.6 % 12.3-15.4 (test code = 788-0) [facility] corpuscular hemoglobin concentration, [id number] 09:42:00 Test Item Value Reference Range Interpretation Comments mean corpuscular hemoglobin 34.3 G/DL 31.5-35.7 concentration, RBC (test code = 786-4) [facility] corpuscular hemoglobin, [id number] 09:42:00 Test Item Value Reference Range Interpretation Comments mean corpuscular hemoglobin, RBC 35.1 pg 26.6-33.0 H (test code = 785-6) [facility] corpuscular volume, [id number] 09:42:00 Test Item Value Reference Range Interpretation Comments mean corpuscular volume, RBC (test 102 fL 79-97 H code = 787-2) [facility] Mountainhematocrit, [id number] 09:42:00 Test Item Value Reference Range Interpretation Comments hematocrit, blood (test code = 4544-3) 40.2 % 34.0-46.6 [facility] Mountainhemoglobin, [id number] 09:42:00 Test Item Value Reference Range Interpretation Comments hemoglobin, blood (test code = 13.8 g/dL 11.1-15.9 718-7) [facility] Mountainerythrocyte (RBC) [id number] 09:42:00 Test Item Value Reference Range Interpretation Comments erythrocyte (RBC) count (test 3.93 X10E6/UL 3.77-5.28 code = 789-8) [facility]le[facility], [id number] 09:42:00 Test Item Value Reference Range Interpretation Comments leukocyte count, blood (test 5.2 X10E3/UL 3.4-10.8 code = 6690-2) [facility] MountainT-helper cells (CD4) as percent of blood lymphocytes 2016-01-27 09:42:00 Test Item Value Reference Range Interpretation Comments T-helper cells (CD4) as percent of 19.2 % 30.8-58.5 L blood lymphocytes (test code = 8123-2) [facility] HealthT-helper cells (CD4) ddhct7656-60-04 09:42:00 Test Item Value Reference Range Interpretation Comments T-helper cells (CD4) count (test code 269 /UL 359-1519 L = 91217-7) [facility] HealthHIV-1RNA, serum, by PCR, lppvsnhbdskg0926-92-73 09:42:00 Test Item Value Reference Range Interpretation Comments HIV-1RNA, serum, by PCR, <20 copies/mL quantitative (test code = 74170) [facility] HealthCD4/CD8 [id number] 09:42:00 Test Item Value Reference Range Interpretation Comments CD4/CD8 ratio (test code 0.67 (unknown unit) 0.92-3.72 L = 00403) [facility] MountainT-suppressor cells (CD8) as percent of blood lymphocytes 2016-01-27 09:42:00 Test Item Value Reference Range Interpretation Comments T-suppressor cells (CD8) as percent of 28.8 % 12.0-35.5 blood lymphocytes (test code = 3517) [facility] Healthabsolute [id number] 09:42:00 Test Item Value Reference Range Interpretation Comments absolute CD8 (test code = 403 (unknown unit) 048-580 10509) [facility]HIV-1RNA, serum, by PCR, jzxovkbfwbpv0786-04-00 09:42:00 Test Item Value Reference Range Interpretation Comments HIV-1RNA, serum, by PCR, <20 copies/mL quantitative (test code = 94522-5) [facility] HealthCD4/CD8 [id number] 09:42:00 Test Item Value Reference Range Interpretation Comments CD4/CD8 ratio (test code 0.67 (unknown unit) 0.92-3.72 L = 25866) [facility] MountainT-suppressor cells (CD8) as percent of blood lymphocytes 2016-01-27 09:42:00 Test Item Value Reference Range Interpretation Comments T-suppressor cells (CD8) as percent of 28.8 % 12.0-35.5 blood lymphocytes (test code = 3517) [facility]absolute [id number] 09:42:00 Test Item Value Reference Range Interpretation Comments absolute CD8 (test code = 403 (unknown unit) 996-042 23100) [facility] leukocyte antigen [id number] 10:14:15 Test Item Value Reference Range Interpretation Comments human leukocyte antigen B57 (test negative code = 198436) [facility] leukocyte antigen [id number] 10:14:15 Test Item Value Reference Range Interpretation Comments human leukocyte antigen B57 (test negative code = 899455) [facility] MountainQuantiferon Gold TB blood test for tuberculosis screening 2015-06-17 10:13:00 Test Item Value Reference Range Interpretation Comments Quantiferon Gold TB blood test for Negative Negative tuberculosis screening (test code = 21560-2) [facility] Mountainrad plasma reagin antibody, [id number] 10:13:00 Test Item Value Reference Range Interpretation Comments rapid plasma reagin antibody, Non Reactive Non Reactive serum (test code = 5291-0) [facility] MountainLDL cholesterol, ycfgp6925-70-33 10:13:00 Test Item Value Reference Range Interpretation Comments LDL cholesterol, serum (test code = 33 mg/dL 0-99 2088-1) [facility] Mountainvery low density oilyicyffyah8571-68-88 10:13:00 Test Item Value Reference Range Interpretation Comments very low density lipoproteins (test 17 mg/dL 5-40 code = 2091-7) [facility] MountainHDL cholesterol, [id number] 10:13:00 Test Item Value Reference Range Interpretation Comments HDL cholesterol, serum (test code = 38 mg/dL >39 L 2084-9) [facility] Mountaintriglyceride, serum, [id number] 10:13:00 Test Item Value Reference Range Interpretation Comments triglyceride, serum, fasting (test 83 mg/dL 0-149 code = 2571-8) [facility] Mountaincholesterol, ksfhm9289-38-41 10:13:00 Test Item Value Reference Range Interpretation Comments cholesterol, serum (test code = 88 mg/dL 100-199 L 2093-3) [facility] Healthalanine aminotransferase (SGPT), kanyb2956-13-56 10:13:00 Test Item Value Reference Range Interpretation Comments alanine aminotransferase (SGPT), serum 15 1/L 0-32 (test code = 1742-6) [facility] Mountainaspartate aminotransferase (SGOT), spuoz9336-06-10 10:13:00 Test Item Value Reference Range Interpretation Comments aspartate aminotransferase (SGOT), 23 1/L 0-40 serum (test code = 1920-8) [facility] Mountainalkaline phosphatase, [id number] 10:13:00 Test Item Value Reference Range Interpretation Comments alkaline phosphatase, serum (test 120 1/L 39-117 H code = 1783-0) [facility] Mountainbilirubin, serum, [id number] 10:13:00 Test Item Value Reference Range Interpretation Comments bilirubin, serum, total (test code 0.3 mg/dL 0.0-1.2 = 1975-2) [facility] Mountainalbumin/globulin ratio, heukj1865-14-96 10:13:00 Test Item Value Reference Range Interpretation Comments albumin/globulin ratio, 1.8 (unknown unit) 1.1-2.5 serum (test code = 1759-0) [facility] Healthglobulin, [id number] 10:13:00 Test Item Value Reference Range Interpretation Comments globulin, serum (test code 2.2 (unknown unit) 1.5-4.5 = 2336-6) [facility] Healthalbumin, [id number] 10:13:00 Test Item Value Reference Range Interpretation Comments albumin, serum (test code = 1751-7) 3.9 g/dL 3.5-5.5 [facility] Mountainprotein, total, [id number] 10:13:00 Test Item Value Reference Range Interpretation Comments protein, total, serum (test code = 6.1 g/dL 6.0-8.5 2885-2) [facility] Mountaincalcium, [id number] 10:13:00 Test Item Value Reference Range Interpretation Comments calcium, serum (test code = 1999-8) 9.4 mg/dL 8.7-10.2 [facility] Mountaincarbon dioxide, venous [id number] 10:13:00 Test Item Value Reference Range Interpretation Comments carbon dioxide, venous blood (test 26 mmol/L - code = 7-1) [facility] Mountainchloride, [id number] 10:13:00 Test Item Value Reference Range Interpretation Comments chloride, serum (test code = 102 mmol/L 97-108 2075-0) [facility] Mountainpotassium, [id number] 10:13:00 Test Item Value Reference Range Interpretation Comments potassium, serum (test code = 3.1 mmol/L 3.5-5.2 L 2823-3) [facility] Mountainsodium, gpebv4875-46-51 10:13:00 Test Item Value Reference Range Interpretation Comments sodium, serum (test code = 2951-2) 144 mmol/L 134-144 [facility] Mountainurea nitrogen/creatinine ratio, [id number] 10:13:00 Test Item Value Reference Range Interpretation Comments urea nitrogen/creatinine 11 (unknown unit) 9-23 ratio, serum (test code = 3097-3) [facility] MountaineGFR if Kfitokyc5144-76-74 10:13:00 Test Item Value Reference Range Interpretation Comments eGFR if 113 mL/min/{1.73 m2} >59 (test code = 81551-6) [facility] MountainEstimated Glomerular Filtration Rate (calc)2015-06-17 10:13:00 Test Item Value Reference Range Interpretation Comments Estimated Glomerular 98 mL/min/{1.73 m2} >59 Filtration Rate (calc) (test code = 96276-7) [facility] Mountaincreatinine, [id number] 10:13:00 Test Item Value Reference Range Interpretation Comments creatinine, serum (test code = 0.70 mg/dL 0.57-1.00 2160-0) [facility] Mountainurea nitrogen, dyzou2528-59-83 10:13:00 Test Item Value Reference Range Interpretation Comments urea nitrogen, blood (test code = 8 mg/dL 6-24 3094-0) [facility] Mountainblood glucose, cmsorc5594-60-17 10:13:00 Test Item Value Reference Range Interpretation Comments blood glucose, random (test code = 77 mg/dL 65-99 2339-0) [facility] Mountainimmature granulocytes, percentage of total cells, blood 2015-06-17 10:13:00 Test Item Value Reference Range Interpretation Comments immature granulocytes, percentage of 0 % total cells, blood (test code = 78720-3) [facility] Healthbasophil count, pejzzonv2936-33-81 10:13:00 Test Item Value Reference Range Interpretation Comments basophil count, absolute (test 0.0 x10E3/uL 0.0-0.2 code = 45471-0) [facility] HealthEosinophil Absolute [id number] 10:13:00 Test Item Value Reference Range Interpretation Comments Eosinophil Absolute Count (test 0.2 X10E3/UL 0.0-0.4 code = 39034-5) [facility] Mountainmonocyte count, blood, zklpgmdzj5665-11-33 10:13:00 Test Item Value Reference Range Interpretation Comments monocyte count, blood, automated 0.3 X10E3/UL 0.1-0.9 (test code = 742-7) [facility] Mountainlymphocyte count, blood, enrytkxcz1337-96-38 10:13:00 Test Item Value Reference Range Interpretation Comments lymphocyte count, blood, 1.3 X10E3/UL 0.7-3.1 automated (test code = 731-0) [facility] MountainAbsolute Qycdslfepbe8559-55-27 10:13:00 Test Item Value Reference Range Interpretation Comments Absolute Neutrophils (test code 3.5 X10E3/UL 1.4-7.0 = 61611-2) [facility] Mountainbasophils as percent of blood bnwgfoybag5664-12-48 10:13:00 Test Item Value Reference Range Interpretation Comments basophils as percent of blood 0 % leukocytes (test code = 707-0) [facility] Healtheosinophils as percent of blood ljnacetpse3112-54-80 10:13:00 Test Item Value Reference Range Interpretation Comments eosinophils as percent of blood 4 % leukocytes (test code = 713-8) [facility] Healthmonocytes as percent of blood ezferswfug4496-89-62 10:13:00 Test Item Value Reference Range Interpretation Comments monocytes as percent of blood 6 % leukocytes (test code = 5905-5) [facility] Mountainlymphocytes as percent of blood iiwfkiswsz9803-23-53 10:13:00 Test Item Value Reference Range Interpretation Comments lymphocytes as percent of blood 24 % leukocytes (test code = 736-9) [facility] Mountainneutrophils as percent of blood lgbigdvwzt5376-99-32 10:13:00 Test Item Value Reference Range Interpretation Comments neutrophils as percent of blood 66 % leukocytes (test code = 770-8) [facility] Mountainplatelet juhld6986-23-45 10:13:00 Test Item Value Reference Range Interpretation Comments platelet count (test code = 243 X10E3/UL 150-379 777-3) [facility] Mountainred blood cell distribution yuipb6948-66-59 10:13:00 Test Item Value Reference Range Interpretation Comments red blood cell distribution width 14.1 % 12.3-15.4 (test code = 788-0) [facility] corpuscular hemoglobin concentration, [id number] 10:13:00 Test Item Value Reference Range Interpretation Comments mean corpuscular hemoglobin 35.6 G/DL 31.5-35.7 concentration, RBC (test code = 786-4) [facility] corpuscular hemoglobin, [id number] 10:13:00 Test Item Value Reference Range Interpretation Comments mean corpuscular hemoglobin, RBC 37.0 pg 26.6-33.0 H (test code = 785-6) [facility] corpuscular volume, [id number] 10:13:00 Test Item Value Reference Range Interpretation Comments mean corpuscular volume, RBC (test 104 fL 79-97 H code = 787-2) [facility] Mountainhematocrit, kjclj9437-42-34 10:13:00 Test Item Value Reference Range Interpretation Comments hematocrit, blood (test code = 4544-3) 33.1 % 34.0-46.6 L [facility] Mountainhemoglobin, [id number] 10:13:00 Test Item Value Reference Range Interpretation Comments hemoglobin, blood (test code = 11.8 g/dL 11.1-15.9 718-7) [facility] Mountainerythrocyte (RBC) gsaio6355-34-54 10:13:00 Test Item Value Reference Range Interpretation Comments erythrocyte (RBC) count (test 3.19 X10E6/UL 3.77-5.28 L code = 789-8) [facility] Mountainleukocyte count, zyrqt3407-96-71 10:13:00 Test Item Value Reference Range Interpretation Comments leukocyte count, blood (test 5.3 X10E3/UL 3.4-10.8 code = 6690-2) [facility] MountainT-helper cells (CD4) as percent of blood lymphocytes 2015-06-17 10:13:00 Test Item Value Reference Range Interpretation Comments T-helper cells (CD4) as percent of 13.0 % 30.8-58.5 L blood lymphocytes (test code = 8123-2) [facility] MountainT-helper cells (CD4) nthro7970-04-43 10:13:00 Test Item Value Reference Range Interpretation Comments T-helper cells (CD4) count (test code 169 /UL 359-1519 L = 97711-6) [facility]-1RNA, serum, by PCR, ssklqwxeixkb8276-37-35 10:13:00 Test Item Value Reference Range Interpretation Comments HIV-1RNA, serum, by PCR, <20 copies/mL quantitative (test code = 45142) [facility]CD4/CD8 zgjqa5218-86-64 10:13:00 Test Item Value Reference Range Interpretation Comments CD4/CD8 ratio (test code 0.47 (unknown unit) 0.92-3.72 L = 93675) [facility] MountainT-suppressor cells (CD8) as percent of blood lymphocytes 2015-06-17 10:13:00 Test Item Value Reference Range Interpretation Comments T-suppressor cells (CD8) as percent of 27.6 % 12.0-35.5 blood lymphocytes (test code = 3517) [facility]absolute [id number] 10:13:00 Test Item Value Reference Range Interpretation Comments absolute CD8 (test code = 359 (unknown unit) [phone]) [facility]HIV-1RNA, serum, by PCR, iyyfuxlrsbwr8537-19-44 10:13:00 Test Item Value Reference Range Interpretation Comments HIV-1RNA, serum, by PCR, <20 copies/mL quantitative (test code = 90517-4) [facility] MountainCD4/CD8 wirir4155-00-38 10:13:00 Test Item Value Reference Range Interpretation Comments CD4/CD8 ratio (test code 0.47 (unknown unit) 0.92-3.72 L = 38393) [facility] MountainT-suppressor cells (CD8) as percent of blood lymphocytes 2015-06-17 10:13:00 Test Item Value Reference Range Interpretation Comments T-suppressor cells (CD8) as percent of 27.6 % 12.0-35.5 blood lymphocytes (test code = 3517) [facility]absolute [id number] 10:13:00 Test Item Value Reference Range Interpretation Comments absolute CD8 (test code = 359 (unknown unit) [phone]) [facility] MountainT-helper cells (CD4) count, lowest absolute value 2015-03-18 10:06:41 Test Item Value Reference Range Interpretation Comments T-helper cells (CD4) 150 (unknown unit) count, lowest absolute value (test code = 70962) [facility] MountainT-helper cells (CD4) count, lowest absolute value 2015-03-18 10:06:41 Test Item Value Reference Range Interpretation Comments T-helper cells (CD4) 150 (unknown unit) count, lowest absolute value (test code = 79204) [facility] Mountainrad plasma reagin antibody, sruen8110-35-20 09:53:00 Test Item Value Reference Range Interpretation Comments rapid plasma reagin antibody, Non Reactive Non Reactive serum (test code = 5291-0) [facility] Mountainhepatitis C antibody, qnwvj5578-95-44 09:53:00 Test Item Value Reference Range Interpretation Comments hepatitis C antibody, serum (test code <0.1 0.0-0.9 = 5199-5) [facility] MountainLDL cholesterol, juywf5384-53-43 09:53:00 Test Item Value Reference Range Interpretation Comments LDL cholesterol, serum (test code = 133 mg/dL 0-99 H 2088-) [facility] Mountainvery low density ldopjeksiees1774-89-74 09:53:00 Test Item Value Reference Range Interpretation Comments very low density lipoproteins (test 36 mg/dL 5-40 code = 2091-7) [facility] MountainHDL cholesterol, sniji9284-15-11 09:53:00 Test Item Value Reference Range Interpretation Comments HDL cholesterol, serum (test code = 45 mg/dL >39 2084-9) [facility] Mountaintriglyceride, serum, ibocwxx6769-62-66 09:53:00 Test Item Value Reference Range Interpretation Comments triglyceride, serum, fasting (test 178 mg/dL 0-149 H code = 2571-8) [facility] Mountaincholesterol, drzyb0945-08-33 09:53:00 Test Item Value Reference Range Interpretation Comments cholesterol, serum (test code = 214 mg/dL 100-199 H 2093-3) [facility] Mountainalanine aminotransferase (SGPT), fqgic0945-47-70 09:53:00 Test Item Value Reference Range Interpretation Comments alanine aminotransferase (SGPT), serum 9 1/L 0-32 (test code = 1742-6) [facility] Mountainaspartate aminotransferase (SGOT), podza0825-48-04 09:53:00 Test Item Value Reference Range Interpretation Comments aspartate aminotransferase (SGOT), 10 1/L 0-40 serum (test code = 1920-8) [facility] Mountainalkaline phosphatase, gqlaw5076-57-55 09:53:00 Test Item Value Reference Range Interpretation Comments alkaline phosphatase, serum (test 120 1/L 39-117 H code = 1783-0) [facility] Mountainbilirubin, serum, ukyto2941-48-12 09:53:00 Test Item Value Reference Range Interpretation Comments bilirubin, serum, total (test code 0.5 mg/dL 0.0-1.2 = 1975-2) [facility] Mountainalbumin/globulin ratio, ahnns7997-96-48 09:53:00 Test Item Value Reference Range Interpretation Comments albumin/globulin ratio, 1.7 (unknown unit) 1.1-2.5 serum (test code = 1759-0) [facility] Healthglobulin, vfjmk5643-06-81 09:53:00 Test Item Value Reference Range Interpretation Comments globulin, serum (test code 2.7 (unknown unit) 1.5-4.5 = 2336-6) [facility] Mountainalbumin, pyxlk8903-60-79 09:53:00 Test Item Value Reference Range Interpretation Comments albumin, serum (test code = 1751-7) 4.6 g/dL 3.5-5.5 [facility] Mountainprotein, total, edytr5445-46-37 09:53:00 Test Item Value Reference Range Interpretation Comments protein, total, serum (test code = 7.3 g/dL 6.0-8.5 2885-2) [facility] Mountaincalcium, cojyw1771-02-17 09:53:00 Test Item Value Reference Range Interpretation Comments calcium, serum (test code = 2000-8) 9.7 mg/dL 8.7-10.2 [facility] Mountaincarbon dioxide, venous hrgiq2202-11-37 09:53:00 Test Item Value Reference Range Interpretation Comments carbon dioxide, venous blood (test 27 mmol/L 18-29 code = 7-1) [facility] Healthchloride, qezbf1624-16-39 09:53:00 Test Item Value Reference Range Interpretation Comments chloride, serum (test code = 100 mmol/L 97-108 5-0) [facility] Mountainpotassium, ybiak6253-53-24 09:53:00 Test Item Value Reference Range Interpretation Comments potassium, serum (test code = 4.4 mmol/L 3.5-5.2 2823-3) [facility] Mountainsodium, sdrrh5051-13-49 09:53:00 Test Item Value Reference Range Interpretation Comments sodium, serum (test code = 2951-2) 142 mmol/L 134-144 [facility] Mountainurea nitrogen/creatinine ratio, bohkg2601-90-15 09:53:00 Test Item Value Reference Range Interpretation Comments urea nitrogen/creatinine 15 (unknown unit) 9-23 ratio, serum (test code = 3097-3) [facility] HealtheGFR if Wxneofuf8651-82-30 09:53:00 Test Item Value Reference Range Interpretation Comments eGFR if 105 mL/min/{1.73 m2} >59 (test code = 89143-0) [facility] MountainEstimated Glomerular Filtration Rate (calc)2015-03-03 09:53:00 Test Item Value Reference Range Interpretation Comments Estimated Glomerular 91 mL/min/{1.73 m2} >59 Filtration Rate (calc) (test code = 91340-0) [facility] Mountaincreatinine, xniuz4258-25-96 09:53:00 Test Item Value Reference Range Interpretation Comments creatinine, serum (test code = 0.74 mg/dL 0.57-1.00 2160-0) [facility] Mountainurea nitrogen, xfntg4046-95-35 09:53:00 Test Item Value Reference Range Interpretation Comments urea nitrogen, blood (test code = 11 mg/dL 6-24 3094-0) [facility] Mountainblood glucose, hrlrgf3714-68-06 09:53:00 Test Item Value Reference Range Interpretation Comments blood glucose, random (test code = 96 mg/dL 65-99 2339-0) [facility] Mountainimmature granulocytes, percentage of total cells, blood 2015-03-03 09:53:00 Test Item Value Reference Range Interpretation Comments immature granulocytes, percentage of 0 % total cells, blood (test code = 60498-2) [facility] Healthbasophil count, junqgbap7659-56-14 09:53:00 Test Item Value Reference Range Interpretation Comments basophil count, absolute (test 0.0 x10E3/uL 0.0-0.2 code = 55227-4) [facility] HealthEosinophil Absolute Luavm1016-88-20 09:53:00 Test Item Value Reference Range Interpretation Comments Eosinophil Absolute Count (test 0.2 X10E3/UL 0.0-0.4 code = 73412-2) [facility] Mountainmonocyte count, blood, sfqzkfbak4559-35-48 09:53:00 Test Item Value Reference Range Interpretation Comments monocyte count, blood, automated 0.3 X10E3/UL 0.1-0.9 (test code = 742-7) [facility] Mountainlymphocyte count, blood, oeaiytrrz0352-03-62 09:53:00 Test Item Value Reference Range Interpretation Comments lymphocyte count, blood, 1.7 X10E3/UL 0.7-3.1 automated (test code = 731-0) [facility] MountainAbsolute Eubcuadniby9618-73-97 09:53:00 Test Item Value Reference Range Interpretation Comments Absolute Neutrophils (test code 3.5 X10E3/UL 1.4-7.0 = 81146-3) [facility] Mountainbasophils as percent of blood olcevixxle8078-09-43 09:53:00 Test Item Value Reference Range Interpretation Comments basophils as percent of blood 0 % leukocytes (test code = 707-0) [facility] Healtheosinophils as percent of blood oefklnhfll4217-69-21 09:53:00 Test Item Value Reference Range Interpretation Comments eosinophils as percent of blood 4 % leukocytes (test code = 713-8) [facility] Healthmonocytes as percent of blood hazrtvybes1074-26-20 09:53:00 Test Item Value Reference Range Interpretation Comments monocytes as percent of blood 6 % leukocytes (test code = 5905-5) [facility] Mountainlymphocytes as percent of blood aafnmdxbyt9761-51-40 09:53:00 Test Item Value Reference Range Interpretation Comments lymphocytes as percent of blood 30 % leukocytes (test code = 736-9) [facility] Mountainneutrophils as percent of blood fwjxvfgilb8387-59-62 09:53:00 Test Item Value Reference Range Interpretation Comments neutrophils as percent of blood 60 % leukocytes (test code = 770-8) [facility] Mountainplatelet zvpnn0515-88-11 09:53:00 Test Item Value Reference Range Interpretation Comments platelet count (test code = 225 X10E3/UL 150-379 777-3) [facility] Mountainred blood cell distribution gxive3462-37-26 09:53:00 Test Item Value Reference Range Interpretation Comments red blood cell distribution width 13.6 % 12.3-15.4 (test code = 788-0) [facility] corpuscular hemoglobin concentration, MVB2257-92-58 09:53:00 Test Item Value Reference Range Interpretation Comments mean corpuscular hemoglobin 33.3 G/DL 31.5-35.7 concentration, RBC (test code = 786-4) [facility] corpuscular hemoglobin, XHA4506-96-43 09:53:00 Test Item Value Reference Range Interpretation Comments mean corpuscular hemoglobin, RBC 35.4 pg 26.6-33.0 H (test code = 785-6) [facility] corpuscular volume, LNJ5378-62-49 09:53:00 Test Item Value Reference Range Interpretation Comments mean corpuscular volume, RBC (test 106 fL 79-97 H code = 787-2) [facility] Mountainhematocrit, nfxnf5629-95-81 09:53:00 Test Item Value Reference Range Interpretation Comments hematocrit, blood (test code = 4544-3) 44.1 % 34.0-46.6 [facility] Mountainhemoglobin, wdfvu1424-41-11 09:53:00 Test Item Value Reference Range Interpretation Comments hemoglobin, blood (test code = 14.7 g/dL 11.1-15.9 718-7) [facility] Mountainerythrocyte (RBC) gxufw2561-36-27 09:53:00 Test Item Value Reference Range Interpretation Comments erythrocyte (RBC) count (test 4.15 X10E6/UL 3.77-5.28 code = 789-8) [facility] Mountainleukocyte count, waxti5377-70-06 09:53:00 Test Item Value Reference Range Interpretation Comments leukocyte count, blood (test 5.8 X10E3/UL 3.4-10.8 code = 6690-2) [facility] MountainT-helper cells (CD4) as percent of blood lymphocytes 2015-03-03 09:53:00 Test Item Value Reference Range Interpretation Comments T-helper cells (CD4) as percent of 18.7 % 30.8-58.5 L blood lymphocytes (test code = 8123-2) [facility] MountainT-helper cells (CD4) dyirh0803-81-26 09:53:00 Test Item Value Reference Range Interpretation Comments T-helper cells (CD4) count (test code 318 /UL 359-1519 L = 47573-2) [facility] MountainHIV-CMIA (Chemiluminescent Microparticle Immuno Assay) 2015-03-03 09:53:00 Test Item Value Reference Range Interpretation Comments HIV-CMIA (Chemiluminescent Reactive Non Reactive A Microparticle Immuno Assay) (test code = 514922) [facility]HIV-1RNA, serum, by PCR, mentpnnswpsm7879-51-37 09:53:00 Test Item Value Reference Range Interpretation Comments HIV-1RNA, serum, by PCR, <20 copies/mL quantitative (test code = 66966) [facility] Mountainhepatitis A antibody, ragfx0006-47-31 09:53:00 Test Item Value Reference Range Interpretation Comments hepatitis A antibody, total (test Negative Negative code = 75) [facility] Mountainhepatitis B core antibody, sdjux8486-64-17 09:53:00 Test Item Value Reference Range Interpretation Comments hepatitis B core antibody, total Negative Negative (test code = 77) [facility] cgkyrqs3576-47-49 09:53:00 Test Item Value Reference Range Interpretation Comments hepatitis B surface antigen (test Negative Negative code = 79) [facility] Mountaintoxoplasma gondii antibody, DbC5122-69-08 09:53:00 Test Item Value Reference Range Interpretation Comments toxoplasma gondii antibody, IgG (test <3.0 0.0-5.9 code = 2430) [facility] Mountainhepatitis B surface fuvgfjrh3957-55-46 09:53:00 Test Item Value Reference Range Interpretation Comments hepatitis B surface antibody Non Reactive (test code = 78) [facility] MountainCD4/CD8 opeup8747-73-53 09:53:00 Test Item Value Reference Range Interpretation Comments CD4/CD8 ratio (test code 0.73 (unknown unit) 0.92-3.72 L = 44906) [facility] MountainT-suppressor cells (CD8) as percent of blood lymphocytes 2015-03-03 09:53:00 Test Item Value Reference Range Interpretation Comments T-suppressor cells (CD8) as percent of 25.7 % 12.0-35.5 blood lymphocytes (test code = 3517) [facility]absolute GL25188-18-58 09:53:00 Test Item Value Reference Range Interpretation Comments absolute CD8 (test code = 437 (unknown unit) [phone]) [facility]HIV-CMIA (Chemiluminescent Microparticle Immuno Assay) 2015-03-03 09:53:00 Test Item Value Reference Range Interpretation Comments HIV-CMIA (Chemiluminescent Reactive Non Reactive A Microparticle Immuno Assay) (test code = 43157-5) [facility]HIV-1RNA, serum, by PCR, xnnyoisgtqbq8130-07-72 09:53:00 Test Item Value Reference Range Interpretation Comments HIV-1RNA, serum, by PCR, <20 copies/mL quantitative (test code = 58140-3) [facility] antibody, byoar7530-23-16 09:53:00 Test Item Value Reference Range Interpretation Comments hepatitis A antibody, total (test Negative Negative code = 12483-7) [facility] antibody, yzgmw5497-40-19 09:53:00 Test Item Value Reference Range Interpretation Comments hepatitis B core antibody, total Negative Negative (test code = 62326-9) [facility] surface dpfxcbp0807-71-10 09:53:00 Test Item Value Reference Range Interpretation Comments hepatitis B surface antigen (test Negative Negative code = 97226-7) [facility] antibody, zluiu5249-05-52 09:53:00 Test Item Value Reference Range Interpretation Comments hepatitis C antibody, serum (test code <0.1 0.0-0.9 = 43603-6) [facility] Mountaintoxoplasma gondii antibody, GoL0783-35-15 09:53:00 Test Item Value Reference Range Interpretation Comments toxoplasma gondii antibody, IgG (test <3.0 0.0-5.9 code = 5389-2) [facility] Mountainhepatitis B surface nuoatvmm2805-36-54 09:53:00 Test Item Value Reference Range Interpretation Comments hepatitis B surface antibody Non Reactive (test code = 65428-0) [facility] MountainCD4/CD8 eoexz5489-15-11 09:53:00 Test Item Value Reference Range Interpretation Comments CD4/CD8 ratio (test code 0.73 (unknown unit) 0.92-3.72 L = 00401) [facility] MountainT-suppressor cells (CD8) as percent of blood lymphocytes 2015-03-03 09:53:00 Test Item Value Reference Range Interpretation Comments T-suppressor cells (CD8) as percent of 25.7 % 12.0-35.5 blood lymphocytes (test code = 3517) [facility]absolute MP46133-12-13 09:53:00 Test Item Value Reference Range Interpretation Comments absolute CD8 (test code = 437 (unknown unit) [phone]) [facility]- XR CHEST 1 [id number] 08:19:00 FAX: Yudith Crenshaw [phone] [place]: St: DIS FAX: Manuel Esteban MD [phone] --- Name: GUERRERO ARIAS [facility] : 1960 Age/S: 53/F [address] [facility] Unit #: [id number] Loc: [place], [place]: [place] [address] Acct: [id number] Dis Date: Status: DIS IN PHONE #:[phone] Exam Date: 02/27/2014809 FAX #: [phone] Reason: COPD EXAMS: CPT CODE: [id number] CHEST 1 V 26040 CHEST, FRONTAL VIEW HISTORY: COPD FINDINGS: Since 02/26/14, lungs remain emphysematous and clear. The heart size is normal. Aorta is partially calcified. Minimal degenerative changes affect the thoracic spine. IMPRESSION: No evidence of acute airspace disease. at 0819 Reported and signed by: Anita Gonzales M.D. CC: Yudith Eastman MD; Manuel Esteban MD Technologist: LEXI Worthington Date/Time/By: 02/27/2014 (0819) : By: [email or web address] PAGE 1 Signed Report FAX: Yudith Crenshaw [phone] [place]: St: DIS FAX: Manuel Esteban MD [phone] Name: GUERRERO ARIAS [facility] : 1960 Age/S: 53/F [address] [facility] Unit #: [id number] Loc: [place], [place]: [place] [address] Acct: [id number] Dis Date: Status: DIS IN PHONE #: [phone] Exam Date: 02/27/2014809 FAX #: [phone] Reason: COPD EXAMS: CPT CODE: [id number] XR CHEST 1 V 85844 <Continued> Orig Print D/T: S: 02/27/2014 (0822) PAGE 2 Signed Report- XR CHEST 1 [id number] 21:21:00 FAX: Manuel Esteban MD [phone] [place]: St: DIS Name: GUERRERO ARIAS [facility] : 1960 Age/S: 53/F [address] Unit #: [id number] Loc: [place], [place]: [place] [address] Acct: [id number] Dis Date: Status: DIS IN PHONE #: [phone] Exam Date: 02/26/2014 174 FAX #: [phone] Reason: CHEST PAIN EXAMS: CPT CODE: [id number] XR CHEST 1 V 25988 CHEST, FRONTAL VIEW HISTORY: CHEST PAIN FINDINGS: Since 02/03/14, lungs are emphysematous and clear. The heart size isnormal. Aorta is partially calcified. The bones are intact. IMPRESSION: No evidence of acute airspace disease. at 2121 Reported and signed by: Anita Gonzales M.D. CC: Manuel Esteban MD Technologist: PEÑA SMITH [facility] Date/Time/By: 02/26/2014 (2120) : By: [email or web address] PAGE 1 Signed Report FAX: Manuel Esteban MD [phone] [place]: St: DIS -- Name: GUERRERO ARIAS [facility] : 1960 Age/S: 53/F [address] Unit #: [id number] Loc: [place], [place]: [place] [address] Acct: [id number] Dis Date: Status: DIS IN PHONE #: [phone] Exam Date: 02/26/2014 1748 FAX #: [phone] Reason: CHEST PAIN EXAMS: CPT CODE: [id number] XR CHEST 1 V 99715 <Continued> Orig Print D/T: S: 02/26/2014 (7933) PAGE 2 Signed Report- XR CHEST 1 G4730-02-06 16:54:00 FAX: Amaya Estrada MD [phone] [place]: St: UN Name: GUERRERO ARIAS [facility] : 1960 Age/S: 53/F [address] Unit #: [id number] Loc: [place], [place] Phys: Amaya Estrada MD77591 Acct: [id number] Dis Date: Status: UNK PHONE #: [phone] Exam Date: 02/03/2014 1622 FAX#: [phone] Reason: cp EXAMS: CPT CODE: [id number] XR CHEST 1 V 56721 REASON FOR EXAM: Chest pain COMPARISON: October 18, 2013. Chest, single view portable The lungs are hyperinflated and clear. Heart size is normal. No effusion or pneumothorax can be seen. Osseous structures appear to be intact. IMPRESSION: No acute cardiopulmonary disease. Hyperinflated lung pattern. at 1654 Reported and signed by: Zoran Fuller M.D. CC: Amaya Estrada MD Technologist: YESY Ramirez Date/Time/By: 02/03/2014 (4713) : By: Malik PAGE 1 Signed Report FAX: Amaya Estrada MD [phone] [place]: St: UNK Name: GUERRERO ARIAS NOLVIA [facility] : 1960 Age/S: 53/F [address] Unit #: [id number] Loc: [place], [place]: [place] [address] Acct: [id number] Dis Date: Status: [facility] PHONE #: [phone] Exam Date: 02/03/2014 1622 FAX #: [phone] Reason: cp EXAMS: CPT CODE: [id number] XR CHEST 1 V 80698 <Continued> Orig Print D/T: S: 02/03/2014 (8141) PAGE 2 Signed Report- CT ABD PELVIS W/KZKF1971-64-65 07:54:00 FAX: Julia Burns MD [phone] [place]: St: UNK Name: LEXIE ARIASHILTON DE SOUZA [facility] : 1960 Age/S: 52/F[address] Unit: [id number] Loc: [place], [place]: [place] [address] Acct: [id number] Dis Date: Status: [facility] PHONE #: [phone] Exam Date: 10/18/2013 2347 FAX #: [phone] Reason: gen'd abd pain, IV contrast only EXAMS: CPT CODE: [id number] CT ABD PELVIS [id number] HISTORY: Abdominal pain, nausea and vomiting. CT abdomen and pelvis, contrast-enhanced. Following the intravenous administration of 90 mL of Isovue 300, but at the request of the referring physician, no oral contrast, a study of the upper abdomen and pelvis was performed. A comparison is made toa study from December 20, 2012 The study includes some of the lung bases, which appear to be clear. There appears to be some minimal atelectasis or chronic lung change in the right heart border medially. No pericardial or pleural fluid can be found. The liver and spleen appear to be uniformly enhancingwith fatty liver changes in the large left lobe extending around the edge of the spleen as before. Kidneys appear to be intact. Pancreas is normal. Gallbladder with normal configuration. The retroperitoneum does not show distinct adenopathy with normal aortic diameter seen. Bowel loops appear to be free of obstruction the detail limited by the lack of oral contrast. Some of the left upper quadrant sma ll bowel may have upper normal diameter but [...] as well. ER notified of the preliminary findings by the on-call radiology service. PAGE 1 Signed Report (CONTINUED) FAX: Julia Burns [phone] [place]: St: UNK --------- Name: GUERRERO ARIAS [facility] : 1960 Age/S: 52[facility]F [address] [facility]: [id number] Loc: [place], [place]: [place] [address] Acct: [id number] DisDate: Status: [facility] PHONE #: [phone] Exam Date: 10/18/2013 2345 FAX #: [phone] Reason: gen'dabd pain, IV contrast only EXAMS: CPT CODE: [id number] CT ABD PELVIS W/CONT 69753 <Continued> at 0754 Reported and signed by: Zoran Fuller M.D. CC: Julia Burns MD Technologist: YESY Ramirez Dt/Tm: 10/19/2013 (0754) Malik Orig Print D/T: S: 10/19/2013 (0758 6.44 321.13 PAGE 2 Signed Report- XR CHEST 1 Y9715-12-32 21:46:00 FAX: Alec Damian MD [phone] [place]: St: [facility] FAX: Julia Burns MD [phone] Name: GUERRERO ARIAS [facility] : 1960 Age/S: 52/F [address] [facility] [address] Unit #: [id number] Loc: [place], [place]: [place] [address] Acct: [id number] Dis Date: Status: [facility] PHONE #: [phone] Exam Date: 10/18/20132131 FAX #: [phone] Reason: abd pain EXAMS: CPT CODE: [id number] XR CHEST 1 V 90589 CHEST, 1 VIEW HISTORY: abd pain FINDINGS: Since 05/18/13, the lungs remain hyperinflated is and clear. No consolidation, pleural effusion or pneumothorax. The heart size is normal. Aorta is partially calcified. The bones are intact. IMPRESSION: No evidence of acute airspace disease. COPD. at 6 Reported and signedby: Anita Gonzales M.D. CC: Alec Damian MD; Julia Burns MD Technologist: PEÑA SMITH [facility] Date/Time/By: 10/18/2013 (2145) : By: [email or web address] PAGE 1 Signed Report FAX: Alec Damian MD [phone] [place]: St: [facility] FAX: Julia Burns MD [phone] Name: GUERRERO ARIAS [facility] : 1960 Age/S: 52/F [address] [facility] Unit #: [id number] Loc: [place], [place]: [place] [address] Acct: [id number] Dis Date: Status: K PHONE #: [phone] Exam Date: 10/18/20132131 FAX #: [phone] Reason: abd pain EXAMS: CPT CODE: [id number] XR CHEST 1 V 30278 <Continued> Orig Print D/T: S: 10/18/2013 (3) PAGE 2 Signed Report- XR CHEST 1 [id number] 10:12:00 FAX: Mikhail Bender MD [phone] [place]: St: [facility] FAX: Yudith Crenshaw [phone] Name: GUERRERO ARIAS [facility] : 1960 Age/S: 52/F [address] Unit #: [id number] Loc: [place], [place]: [place] [address] Acct: [id number] Dis Date: Status: UNK PHONE #: [phone] Exam Date: 05/18/2013904 FAX #: [phone] Reason: SOB EXAMS: CPT CODE: [id number] XR CHEST 1 V 90837 REASON FOR EXAM: Shortness of breath and COPD COMPARISON: May 14, 2013. Chest, single view portable. The lungs are hyperinflated suggesting COPD, and clear. Interstitial fibrosis pattern s uspected. Heart size is normal. No effusion or pneumothorax can be seen. Osseous structures appear to be intact. IMPRESSION: No acute cardiopulmonary disease. COPD changes. at 1012 Reported and signed by: Zoran Fuller M.D. CC: Mikhail Lamb MD; Yudith Eastman MD Technologist: ROE GARZA [facility] Date/Time/By: 05/18/2013 (1012) : [facility]: [facility] PAGE 1 Signed Report FAX: Mikhail Bender MD [phone] [place]: St: [facility] FAX: Yudith Crenshaw [phone] Name: GUERRERO ARIAS [facility] : 1960 Age/S: 52/F[address] Unit #: [id number] Loc: [place], [place]: [place] [address] Acct: [id number] Dis Date: Status: popAD PHONE #: [phone] Exam Date: 05/18/2013 0905 FAX #: [phone] Reason: SOB EXAMS: CPT CODE: [id number] XR CHEST 1 V 94579 <Continued> Orig Print D/T: S: 05/18/2013 (1015) PAGE 2 Signed Report- MRI BRAIN W WO CONT 2013-05-15 13:45:00 FAX: Mikhail Bender MD [phone] [place]: St: [facility] FAX: Brissa Yudith Choi [phone] ---- Name: GUERRERO ARIAS : 1960 Age/S: 52/F [address] [facility] [address] Unit #: [id number] Loc: [place], [place]: [place] [address] Acct: [id number] Dis Date: Status: [facility] PHONE #: [phone] Exam Date: 05/15/2013 0951 FAX #: [phone] Reason: ANISOCORIA DIPLOPIS EXAMS: CPT CODE: [id number] MRI BRAIN W WO CONT 06729 CLINICAL HISTORY: Anisocoria, diplopia MRI brain ,with and withoutcontrast. Precontrast T1 sagittal images show the pituitary gland to be intact, optic chiasm normal in its position and structures at the base of brain to be appropriate. Contrast axial and coronal images are obtained with 8 mL of Magnevist, given intravenously. The enhancement pattern appears to be intact. Motion artifact seen on some of the later sequences. No unusual vascular structures or enhancing mass lesions are seen. The orbital areas do not show any distinct abnormal enhancement. There is a mild asymmetry seen at the posterior inferior orbital floor. A discrepancy in the size of the rightmaxillary sinus compared to the left side is seen. There does not appear to be any distinct obstruction pattern or chronic sinusitis but there may be evidence for a previous sick Sinus syndrome . The right mastoid and lower temporal bone show fluid present with minimal changes on the left. There does not appear to be middle ear fluid present. T2 axial [...] be symmetric. Appropriate flow-void occurs in the point lay ira of [place]. No evidence of hemorrhage seen. The diffusion- weighted images are unremarkable for bright signal of CVA. The FLAIR sequence does not show evidence of demyelinating disease . No sinusitis changes are seen. IMPRESSION: No acute appearing intracranial abnormality. No enhancing mass lesions. Primarily right mastoiditis changes most likely. Subtle asymmetry in the inferior lateral orbital floor right PAGE 1 Signed Report (CONTINUED) FAX: Mikhail Bender MD [phone] [place]: St: [facility] FAX: Yudith Crenshaw [phone] Name: GUERRERO ARIAS [facility] : 1960 Age/S: 52/F [address] [facility] [address] Unit #: [id number] Loc: [place], [place]: [place] [address] Acct: [id number] Dis Date: Status: [facility] PHONE #: [phone] Exam Date: 05/15/2013 0951 FAX #: [phone] Reason: ANISOCORIA DIPLOPIS EXAMS: CPT CODE: [id number] MRI BRAIN W WO CONT 64783 <Continued> orbit with hypoplastic right maxillary sinus could support sick sinus syndrome. No current obstruction is seen. at 4141 Reported and signed by: Zoran Fuller M.D. CC: Mikhail Lamb MD; Yudith Eastman MD Technologist: MIO HSU; ELVIN RAMIREZ Trnscrd Date/Time/By: 05/15/2013 (4365) : By: [facility] PAGE 2 Signed Report FAX: Mikhail Bender MD [phone] [place]: St: [facility] FAX: Yudith Crenshaw [phone] Name: GUERRERO ARIAS [facility] : 1960 Age/S: 52/F [address] [facility] Unit #: [id number] Loc: [place], [place]: [place] [address] Acct: [id number] Dis Date: Status: UNK PHONE #: [phone] Exam Date: 05/15/2013 0951 FAX #: [phone] Reason: ANISOCORIA DIPLOPIS EXAMS: CPT CODE: [id number] MRI BRAIN W WO CONT 90604 <Continued> Orig Print D/T: S: 05/15/2013 (0539) PAGE 3 Signed Report- CT CHEST W/O [id number] 21:40:00 FAX: Mikhail Bender MD [phone] [place]: EM St: [facility] FAX: Yudith Crenshaw [phone] ---- Name: GUERRERO ARIAS : 1960 Age/S: 52/F [address] [facility] Unit: [id number] Loc: [place], [place]: [place] [address] Acct: [id number] Dis Date: Status: UNK PHONE #: [phone] Exam Date: 05/14/20131953 FAX #: [phone] Reason: SOB EXAMS: CPT CODE: [id number] CT CHEST W/O CONTRAST 08767 Reason for exam, shortness of breath, pneumonia. CT of the chest, unenhanced. Thethyroid tissue appears to be intact and thoracic inlet structures are appropriate. Normal aortic diameter is seen and normal heart size is seen. Anterior thickening of the pericardium is seen which could indicate fluid or thickening. There does not appear to be fluid posteriorly for pericardial effusion distinctly. The mediastinal areas [...] time. No pleural effusion. Very limited study. at 2140 Reported and signed by: Zoran Fuller M.D. CC: Mikhail Lamb MD; Yudith Eastman MD Technologist: SILVANO WRIGHT [facility] Dt/Tm: 05/14/2013 (2140) AlainaM Orig Print D/T: S: 05/14/2013 (2143 6.89 254.08 PAGE 1 Signed Report- XR CHEST 2 [id number] 17:37:00 FAX: Yudith Crenshaw [phone] [place]: St: [facility] Name: GUERRERO ARIAS [facility] : 1960 Age/S:52/F [address] [facility] Unit #: [id number] Loc: [place], [place]: [place] [address] Acct: [id number] Dis Date: Status: [facility] PHONE #: [phone] Exam Date: 05/14/2013 1548 FAX #: [phone] Reason: COPD PNEUMONIA EXAMS: CPT CODE: [id number] XR CHEST 2 V 60819 CHEST, 2 VIEWS HISTORY: COPD PNEUMONIA COMPARISON: Chest x-ray 05/12/2013 FINDINGS: The lungs are hyperexpanded. There are bilateral diffuse interstitial markings. No significant pleural effusions. The cardiomediastinal contours are stable. No acute bone abnormality. IMPRESSION: 1. Diffuse interstitial markings likely represent interstitial pneumonia or other interstitial disease. Followup recommended. 2.Findings compatible clinical diagnosis of COPD. at 8878 Reported and signed by: Gonzalo Hall M.D. CC: Yudith Eastman MD Technologist: PEÑA SMITH Trnscrd Date/Time/By: 05/14/2013 (1155) : By: [email or web address] PAGE 1 Signed Report FAX:Yudith Crenshaw [phone] [place]: St: [facility] Name: GUERRERO ARIAS [facility] : 1960 Age/S: 52/F [address] [facility] Unit #: [id number] Loc: [place], [place]: [place] [address] Acct: [id number] Dis Date: Status: [facility] PHONE #: [phone] Exam Date: 05/14/2013 1548FAX #: [phone] Reason: COPD PNEUMONIA EXAMS: CPT CODE: [id number] XR CHEST 2 V 29394 <Continued> Orig Print D/T: S: 05/14/2013 (3016) PAGE 2 Signed Report- XR CHEST 1 [id number] 16:06:00 FAX: Melida Borges [phone] [place]: St: [facility] Name: GUERRERO ARIAS [facility] : 1960 Age/S: 52/F [address] [facility] Unit #: [id number] Loc: [place], [place]: [place] [address] Acct: [id number] Dis Date: Status: [facility] PHONE #: [phone] Exam Date: 05/12/2013 1547 FAX #: [phone] Reason: copd/cough, shortness of breath EXAMS: CPT CODE: [id number] XR CHEST 1 V 48748 REASON FOR EXAM: Cough, COPD, shortness of breath COMPARISON: October 18, 2012. Chest, single view portable The lungs are hyperinflated consistent with COPD. More but no infiltrates are appreciated focally. Heart size is intact.. No effusion or pneumothorax can be seen. Osseous structures appear to be intact. IMPRESSION: COPD changes. Interstitial pattern could indicate interstitial pneumonia/ disease or non-cardiogenic edema. at 1609 Reported and signed by: Zoran Fuller M.D. CC: Melida Singh Technologist: LEXI HOLCOMB [facility] Date/Time/By: 05/12/2013 (0747) : By: [facility] PAGE 1 Signed Report FAX: Melida Borges [phone] [place]: St: K Name: GUERRERO ARIAS [facility] : 1960 Age/S: 52/F [address] Unit #: [id number] Loc: [place], [place]: [place] [address] Acct: [id number] Dis Date: Status: UNK PHONE #: [phone] Exam Date: 05/12/2013 1547 FAX #: [phone] Reason: copd/cough, shortness of breath EXAMS: CPT CODE: [id number] XR CHEST 1 V 25500 <Continued> Orig Print D/T: S: 05/12/2013 (7880) PAGE 2 Signed Report- CT ABD PELVIS W/[id number] 17:45:00 FAX: Bossman Nassar MD [place]: St: K Name: GUERRERO ARIAS [facility] : 1960 Age/S: 51/F [address] Unit: [id number] Loc: [place], [place]: [place] [address] Acct:[id number] Dis Date: Status: UNK PHONE #: [phone] Exam Date: 12/20/2012 1729 FAX #: [phone] Reason: generalized abd pain EXAMS: CPT CODE: [id number] CT ABD PELVIS W/CONT 75231 HISTORY: Generalized abdominal pain. CT abdomen contrast-enhanced. Following the intravenous administration of 90 mL of Isovue 370, but no oral contrast, a study of the upper abdomen was performed. The study includes some of the lung bases, which show some minimal atelectasis or scarring in the right middle lobe and lingula but otherwise, appear to be clear. No pericardial or pleural fluid can be found. Mild fattyliver changes are seen with the left lobe prominent resting against the spleen which is intact. The pancreas outline is appropriate. Kidneys are intact. Adrenal glands are symmetric. The gallbladder isnot well distended but has normal location. Bowel loops are free of obstruction but limited. There may be borderline constipation changes. No ascites. CONCLUSION: No acute abnormality in the upper abdomen. Limited study for bowel assessment. CT pelvis, contrast-enhanced. Continued imaging of the pelvis was performed. The bladder appears to be intact. Diverticulosis changes affect the sigmoid colon. Ahysterectomy has been performed. No free fluid or inflammatory change can be seen to support diverticulitis. The appendix is not identified and may have been removed. Iliac vessels are appropriate. No hernia formation seen. The bone window settings show some sclerotic changes possibly in the femoral heads. No bony destructive changes are seen. PAGE 1 Signed Report (CONTINUED) FAX: Bossman Nassar MD [place]: St: [facility] -- Name: GUERRERO ARIAS [facility] : 1960 Age/S: 51/F [address] [facility] Unit:[id number] Loc: [place], [place]: [place] [address] Acct: [id number] Dis Date: Status: UNK PHONE #: [phone] Exam Date: 12/20/2012 1729 FAX #: [phone] Reason: generalized abd pain EXAMS: CPT CODE: [id number] CT ABD PELVIS W/CONT 18443 <Continued> CONCLUSION: No acute abnormality in the deep pelvis. Hysterectomy. Sigmoid diverticulosis without obvious active disease.Limited bowel loop assessment however. Electronically Signed by Aureliano Fuller on12/20/2012 at 1749 Reported and signed by: Zoran Fulelr M.D. CC: Bossman Nassar MD Technologist: SILVANO WRIGHT [place] Dt/Tm: 12/20/2012 (0451) Malik Orig Print D/T: S: 12/20/2012 (7248 PAGE 2 Signed Report- XR CHEST 2 [id number] 14:58:00 FAX: Bossman Nassar MD [place]: St: [facility] Name: GUERRERO ARIAS [facility] : 1960 Age/S: 51/F [address] [facility] Unit #: [id number] Loc: [place], [place]: [place] [address] Acct: [id number] Dis Date: Status: UNK PHONE #: [phone] Exam Date: 10/18/2012 1416 FAX #: [phone] Reason: cough, fever EXAMS: CPT CODE: [id number] XR CHEST 2 V 64330 CHEST, 2 VIEWS HISTORY: cough, fever FINDINGS: Since 09/18/12, minimal atelectasis is noted in the left lower lobe. The previously seen faint density in the lung base has resolved. The lungs are otherwise clear. The heart size isnormal. Minimal degenerative changes affect the thoracic spine. IMPRESSION: Aside from minimal atelectasis, no evidence of acute airspace disease. at 6609 Reported and signed by: Anita Gonzales M.D. CC: Bossman Nassar MD Technologist: ANITA Ramirez Date/Time/By: 10/18/2012 (4523) : By: [email or web address] PAGE 1 Signed Report FAX: Bossman Nassar MD [place]: [facility]: [facility] Name: GUERRERO ARIAS [facility] : 1960 Age/S: 51/F [address] [facility] [address] [facility] Unit #: [id number] Loc: [place], [place]: [place] [address] Acct: [id number] Dis Date: Status: UNK PHONE #: [phone] Exam Date: 10/18/2012 1416 FAX #: [phone] Reason: cough, fever EXAMS: CPT CODE: [id number] XR CHEST 2 V 77615 <Continued> OrigPrint D/T: S: 10/18/2012 (1509) PAGE 2 Signed Report- XR CHEST 1 [id number] 13:03:00 [place]: [facility]: [facility] -- Name: GUERRERO ARIAS [facility] : 1960 Age/S: 51/F [address] [facility] [address] Unit #: [id number] Loc: [place], [place]: [place] [address] Acct: [id number] Dis Date: Status: UNK PHONE #: [phone] Exam Date: 09/18/2012 1234 FAX #: [phone] Reason: CHEST PAIN EXAMS: CPT CODE: [id number] XR CHEST 1 V 88132 CHEST, 1 VIEW HISTORY: chest pain. FINDINGS: [...] the chest. at 1303 Reported and signed by: nAita Gonzales M.D. CC: Technologist: ADELA Ramirez Date/Time/By: 09/18/2012 (5473) : By: [email or web address] PAGE 1 Signed Report [place]: [facility]: [facility] Name: GUERRERO ARIAS [facility] : 1960 Age/S: 51/F [address] [facility] [address] Unit #: [id number] Loc: [place], [place] [address] Acct: [id number] Dis Date: Status: [facility] PHONE #: [phone] Exam Date: 09/18/2012 1234 FAX #: [phone] Reason: CHEST PAIN EXAMS: CPT CODE: [id number] XR CHEST 1 V 14208 <Continued> Orig Print D/T: S: 09/18/2012 (7465) PAGE 2 Signed Report- CT HEAD/BRAIN W/O [id number] 11:38:00 [place]: St: [facility] -- Name: GUERRERO ARIAS [facility] : 1960 Age/S: 51/F [address] Unit: [id number] Loc: [place], [place]: [place] [address] Acct: [id number] Dis Date: Status: [facility] PHONE #: [phone] Exam Date: 09/18/2012 1135 FAX #: [phone] Reason: dizzy EXAMS:CPT CODE: [id number] CT HEAD/BRAIN W/O CONT 62786 HISTORY: Dizziness. TECHNIQUE: Axial noncontrast CTimages of the brain were obtained. COMPARISON: No prior CT scan is available. FINDINGS: The ventricles are midline and symmetric with normal size and configuration. There is no evidence of acute hemorrhage, mass effect or major vascular territory infarct. There is no evidence of extra- axial fluid collection. Visualized extra-axial tissues are otherwise normal in appearance. IMPRESSION: No acute intracranial findings . at 1133 Reported and signed by: Colt Sorensen CC: Technologist: ARIEL KERR Trnscrd Dt/Tm: 09/18/2012 (9598) Tania.[email or web address] Orig Print D/T: S: 09/18/2012 (1143 PAGE 1 Signed Report
[2023-07-07 10:48] LABS: Absolute Lymphocytes (CBC) 1.9 K/uL (0.7-4.9); Hematocrit 36.5 % (36.0-45.0); Lymphocytes % 23.9 % (15.3-44.8); MCV 105.6 fL (80-100); MPV 8.5 fL (7.6-11.3); Platelets 185 thou/uL (152-406); RBC Red Blood Cell Count 3.46 M/uL (3.86-4.86)
[2023-07-07 11:06] LABS: ALT/SGPT 11 U/L (13-56); AST/SGOT 6 U/L (15-37); Albumin 2.5 g/dL (3.4-5.0); Alkaline Phosphatase 68 U/L (45-117); BUN Blood Urea Nitrogen 12 mg/dL (7-18); Bicarbonate 30 mEq/L (21-32); Bilirubin Total 0.1 mg/dL (0.2-1.0); Glomerular Filtration Rate 101 ml/min (=/>90); Glucose Level 156 mg/dL (74-106); Magnesium 1.9 mg/dL (1.6-2.4); NT PRO-BNP 90 pg/mL (<125); Potassium 3.9 mEq/L (3.5-5.1); Sodium Level 139 mEq/L (136-145)
[2023-07-07 11:08] LABS: Bilirubin Direct < 0.1 mg/dL (0-0.2); Bilirubin Indirect, Calculated ND mg/dL (0.2-0.8); Blood Morphology Comment NOTED (NOT SEEN); Platelet Estimate ADEQ; Troponin High Sensitivity < 3.0 pg/mL (<58.9); White Blood Cell Scan OK (OK)
[2023-07-07 11:09] LABS: Macrocytosis 1+
--- NOTE | 2023-07-07 12:19 | RAD REPORT ---
EXAM DESCRIPTION: RAD - Chest Single View - 07/07/2023 12:10 pm CLINICAL HISTORY: CHEST PAIN Chest pain. COMPARISON: Chest Single View dated 12/07/2021; Chest Single View dated 12/06/2021; Chest Single View d ated 12/05/2021; Chest Single View dated 04/08/2021 FINDINGS: Portable technique limits examination quality. Mild interstitial pulmonary edema. The heart is mildly enlarged in size. No displaced fractures. IMPRESSION: Mild CHF.
--- NOTE | 2023-07-07 12:40 | EDPHYS ---
Physician Documentation [facility] Name: Lucia Arias Age: 62 yrs Sex: Female : 1960 Arrival Date: 07/07/2023 Time: 10:20 Bed 7 Private MD: ED Physician Julio Segura HPI: 07/07 11:32 This 62 yrs old Female presents to ER via EMS with complaints of Chest Pain > 30 y/o. sp3 11:32 62-year-old female with extensive past medical history including CAD, angina, COPD, sp3 HIV, prior pulmonary edema now presents from the retirement with chief complaint chest pain + somewhat relieved after 2 nitroglycerin. Patient states that she has been taking antibiotics for a pneumonia that she has had as an outpatient. Patient still has an active cough. She denies any current chest pain is resting comfortably. Denies any shortness of breath at baseline, back pain, headache, fever, abdominal pain, nausea, vomiting, diarrhea, rash, syncope, or any other signs or symptoms on ROS at this time.. Historical: - Allergies: 10:27 Codeine; ss 10:27 Demerol; ss 10:27 PENICILLINS; ss 10:27 Sulfa (Sulfonamide Antibiotics); ss - PMHx: 10:27 Angina; CAD; COPD; GERD; HIV; pulmonary edema; ss - Immunization history:: Client reports receiving the 2nd dose of the Covid vaccine. - Social history:: Smoking status: Patient reports the use of cigarette tobacco products, smokes one-half pack cigarettes per day. ROS: 11:33 Constitutional: Negative for fever, chills, and weight loss, Eyes: Negative for injury, sp3 pain, redness, and discharge, Neck: Negative for injury, pain, and swelling, Abdomen/GI: Negative for abdominal pain, nausea, vomiting, diarrhea, and constipation, Back: Negative for injury and pain, MS/Extremity: Negative for injury and deformity, Skin: Negative for injury, rash, and discoloration, Neuro: Negative for headache, weakness, numbness, tingling, and seizure, Psych: Negative for depression, anxiety, suicide ideation, homicidal ideation, and hallucinations, Allergy/Immunology: Negative for hives, rash, and allergies, Endocrine: Negative for neck swelling, polydipsia, polyuria, polyphagia, and marked weight changes, Hematologic/Lymphatic: Negative for swollen nodes, abnormal bleeding, and unusual bruising. 11:33 All other systems are negative. Exam: 11:33 Constitutional: This is a well developed, well nourished patient who is awake, alert, sp3 and in no acute distress. Head/Face: Normocephalic, atraumatic. Eyes: Pupils equal round and reactive to light, extra-ocular motions intact. Lids and lashes normal. Conjunctiva and sclera are non-icteric and not injected. Cornea within normal limits. Periorbital areas with no swelling, redness, or edema. Neck: Trachea midline, no thyromegaly or masses palpated, and no cervical lymphadenopathy. Supple, full range of motion without nuchal rigidity, or vertebral point tenderness. No Meningismus. Chest/axilla: Normal chest wall appearance and motion. Nontender with no deformity. No lesions are appreciated. Cardiovascular: Regular rate and rhythm with a normal S1 and S2. No gallops, murmurs, or rubs. Normal PMI, no JVD. No pulse deficits. Back: No spinal tenderness. No costovertebral tenderness. Full range of motion. Skin: Warm, dry with normal turgor. Normal color with no rashes, no lesions, and no evidence of cellulitis. MS/ Extremity: Pulses equal, no cyanosis. Neurovascular intact. Full, normal range of motion. Neuro: Awake and alert, GCS 15, oriented to person, place, time, and situation. Cranial nerves II-XII grossly intact. Motor strength 5/5 in all extremities. Sensory grossly intact. Cerebellar exam normal. Normal gait. Psych: Awake, alert, with orientation to person, place and time. Behavior, mood, and affect are within normal limits. 11:33 ECG was reviewed by the Attending Physician. EKG demonstrates normal sinus rhythm at 90 bpm with normal intervals, slightly leftward axis, occasional PVC normal axis ST segments without evidence of acute ischemia. 11:33 Respiratory: Active cough and rhonchi bilaterally.. Vital Signs: 10:25 BP 119 / 58; Pulse 97; Resp 17; Temp 98.6(TE); Pulse Ox 90% on R/A; Weight 86.18 kg; ss Height 5 ft. 4 in. ; Pain 9/10; 11:30 BP 107 / 64; Pulse 92; Resp 18; Pulse Ox 99% on 2 lpm NC; ko1 11:30 BP 93 / 67; Pulse 94; Resp 16; Pulse Ox 97% on 2 lpm NC; ko1 12:30 BP 104 / 63; Pulse 91; Resp 18; Pulse Ox 97% on 2 lpm NC; ko1 10:25 Body Mass Index 32.61 (86.18 kg, 162.56 cm) ss 10:25 Pain Scale: Adult ss MDM: 10:31 Patient medically screened. sp3 11:34 Data reviewed: vital signs, nurses notes, EMS record, old medical records, lab test sp3 result(s), EKG, radiologic studies. ED course: 62-year-old female with extensive past medical history now with active cough and chest pain. Differential diagnosis includes pneumonia, bronchitis, early sepsis, acute coronary syndrome, NSTEMI, among others. I am not highly concerned for vascular pathology including aortic dissection or aneurysm, pneumothorax, mediastinitis, GI pathology, or any other critical findings at this time. Vital signs are stable and normal. Disposition pending workup and patient course with possible admission.. 12:37 ED course: Patient has active cough but other than that has no other abnormalities. sp3 Chest x-ray and all laboratory values demonstrate no significant abnormality. Vital signs are normal. Pulse ox is 95% on room air. Will safely discharge patient back to retirement.. 07/07 10:30 Order name: Basic Metabolic Panel; Complete Time: 12: sp3 07/07 10:30 Order name: CBC with Diff; Complete Time: 12: sp3 07/07 10:30 Order name: LFT's; Complete Time: 12: sp3 07/07 10:30 Order name: Magnesium; Complete Time: 12: sp3 07/07 10:30 Order name: NT PRO-BNP; Complete Time: 12:22 sp3 07/07 10:30 Order name: Troponin HS; Complete Time: 12: sp3 07/07 10:52 Order name: CBC Smear Scan; Complete Time: 12:22 EDMS 07/07 10:30 Order name: XRAY Chest (1 view); Complete Time: 12:22 sp3 07/07 10:30 Order name: EKG; Complete Time: 10:31 sp3 07/07 10:30 Order name: Cardiac monitoring; Complete Time: 10:40 sp3 07/07 10:30 Order name: EKG - Nurse/Tech; Complete Time: 10:47 sp3 07/07 10:30 Order name: IV Saline Lock; Complete Time: 10:39 sp3 07/07 10:30 Order name: Labs collected and sent; Complete Time: 10:39 sp3 07/07 10:30 Order name: O2 Sat Monitoring; Complete Time: 10:39 sp3 Administered Medications: No medications were administered Disposition Summary: 07/07/23 12:40 Discharge Ordered Location: Home sp3 Condition: Stable sp3 Diagnosis - Bronchitis, cough sp3 Followup: sp3 - With: Private Physician - When: Upon discharge from the Emergency Department - Reason: Continuance of care Discharge Instructions: - Discharge Summary Sheet sp3 - Cough, Adult sp3 Forms: - SBAR form bp - Medication Reconciliation Form sp3 - Thank You Letter sp3 - Antibiotic Education sp3 - Prescription Opioid Use sp3 - Patient Portal Instructions sp3 Prescriptions: - Tessalon Perles 100 mg Oral Capsule - take 1 capsule by ORAL route every 8 hours As needed; 15 capsule; Refills: 0, sp3 Product Selection Permitted Signatures: Dispatcher [employer] Elva Lee, Julio Whittaker RN, MD MD sp3
--- NOTE | 2023-07-07 12:40 | ER ---
Nurse's Notes [facility] Name: Lucia Arias Age: 62 yrs Sex: Female : 1960 Arrival Date: 07/07/2023 Time: 10:20 Bed 7 Private MD: Diagnosis: Bronchitis, cough Presentation: 07/07 10:25 Chief complaint: Patient states: Chest pain that began this morning at 0400. Pt was ss given unknown amount of ASA by snf staff and Nitro SL x 2 last dose given at 0748. Coronavirus screen: Client denies travel out of the [place] in the last 14 days. Ebola Screen: Patient denies exposure to infectious person. Patient denies travel to an Ebola-affected area in the 21 days before illness onset. Initial Sepsis Screen: Does the patient meet any 2 criteria? No. Patient's initial sepsis screen is negative. Does the patient have a suspected source of infection? No. Patient's initial sepsis screen is negative. Risk Assessment: Do you want to hurt yourself or someone else? Patient reports no desire to harm self or others. Onset of symptoms was July 07, 2023. Care prior to arrival: IV initiated. 20 GA, in the right antecubital area, Glucose check: 156. Transition of care: patient was received from another setting of care (long-term care facility), [facility]. 10:25 Method Of Arrival: EMS: [facility] ss 10:25 Acuity: LATONYA 3 ss Historical: - Allergies: 10:27 Codeine; ss 10:27 Demerol; ss 10:27 PENICILLINS; ss 10:27 Sulfa (Sulfonamide Antibiotics); ss - PMHx: 10:27 Angina; CAD; COPD; GERD; HIV; pulmonary edema; ss - Immunization history:: Client reports receiving the 2nd dose of the Covid vaccine. - Social history:: Smoking status: Patient reports the use of cigarette tobacco products, smokes one-half pack cigarettes per day. Screenin:02 [facility] ED Fall Risk Assessment (Adult) History of falling in the last 3 months, ko1 including since admission No falls in past 3 months (0 pts) Confusion or Disorientation No (0 pts) Intoxicated or Sedated No (0 pts) Impaired Gait No (0 pts) Mobility Assist Device Used No (0 pt) Altered Elimination No (0 pt) Score/Fall Risk Level 0 - 2 = Low Risk Oriented to surroundings, Maintained a safe environment, Educated pt \T\ family on fall prevention, incl call for assistance when getting out of bed, Assessed \T\ reinforced patient's understanding of fall precautions, Provided non-skid footwear, Hourly rounding (assess needs \T\ fall precautionary measures) done, Used ambulatory aids as needed (educated on \T\ assisted with), Used gait belt as appropriate. Abuse screen: Denies threats or abuse. Denies injuries from another. Nutritional screening: No deficits noted. Tuberculosis screening: No symptoms or risk factors identified. Assessment: 10:45 General: Appears in no apparent distress. comfortable, Behavior is calm, cooperative, ko1 appropriate for age. Pain: Pain does not radiate. Pain began gradually. Neuro: No deficits noted. Cardiovascular: Reports chest pain. Respiratory: Breath sounds are coarse bilaterally. GI: No deficits noted. : No deficits noted. EENT: No deficits noted. Derm: No deficits noted. Musculoskeletal: No deficits noted. 13:00 Reassessment: Attempted to call report to snf, was transferred to a phone ko1 which no one answered and was sent to voicemail. Left a message for them to call me back. 13:30 Reassessment: called back snf and was sent to the same phone which sent me to ko1 voicemail, left another message for someone to call me back. 14:02 Reassessment: REPORT TO BEINTEZ AT [facility]. TRANSPORT PENDING. bp Vital Signs: 10:25 BP 119 / 58; Pulse 97; Resp 17; Temp 98.6(TE); Pulse Ox 90% on R/A; Weight 86.18 kg; ss Height 5 ft. 4 in. ; Pain 9/10; 11:30 BP 107 / 64; Pulse 92; Resp 18; Pulse Ox 99% on 2 lpm NC; ko1 11:30 BP 93 / 67; Pulse 94; Resp 16; Pulse Ox 97% on 2 lpm NC; ko1 12:30 BP 104 / 63; Pulse 91; Resp 18; Pulse Ox 97% on 2 lpm NC; ko1 10:25 Body Mass Index 32.61 (86.18 kg, 162.56 cm) ss 10:25 Pain Scale: Adult ED Course: 10:25 Patient arrived in ED. ss 10:27 Triage completed. ss 10:27 Arm band placed on right wrist. ss 10:28 Julio Segura MD is Attending Physician. sp3 10:40 Basic Metabolic Panel Sent. ko1 10:40 CBC with Diff Sent. ko1 10:40 LFT's Sent. ko1 10:40 Magnesium Sent. ko1 10:40 NT PRO-BNP Sent. ko1 10:40 Troponin HS Sent. ko1 11:06 Lakia Thompson, RN is Primary Nurse. ko1 12:12 XRAY Chest (1 view) In Process Unspecified. EDMS 13:02 Patient has correct armband on for positive identification. Placed in gown. Bed in low ko1 position. Call light in reach. Side rails up X2. Provided Education on: na. Client placed on continuous cardiac and pulse oximetry monitoring. NIBP monitoring applied. groundwater monitoring technician on. Door closed. Noise minimized. Warm blanket given. 13:02 No provider procedures requiring assistance completed. Oxygen administration via nasal ko1 cannula \T\ 2L/min. 13:13 IV discontinued, intact, bleeding controlled, No redness/swelling at site. Pressure ko1 dressing applied. Administered Medications: No medications were administered Medication: 13:02 VIS not applicable for this client. ko1 Outcome: 12:40 Discharge ordered by . sp3 15:33 Discharged to snf. ss 15:33 Condition: good 15:33 Discharge instructions given to patient, Instructed on discharge instructions, follow up and referral plans. Demonstrated understanding of instructions, follow-up care. 15:33 Patient left the ED. ss Signatures: Dispatcher [employer] EDOH Elva Cueva, AUBREE MAK Contreras Ferreira, RN AUBREE Julio Segura MD MD sp3 Lakia Thompson, RN RN ko1
[2023-07-07 15:39] VITALS: TEMP 98.6
[2023-07-07 15:41] VITALS: O2SAT 97
[2023-07-07 15:43] VITALS: BP 104/63
--- NOTE | 2023-07-10 15:36 | EKG ---
Test Date: 2023-07-07 Test Time: 10:44:55 Supervisor Drawing: LUIS MEASUREMENT RESULTS: Intervals: Rate: 90 PA: 172 QRSD: 80 QT: 374 QTc: 457 [place]: P: 73 PA: 172 QRS: -36 T: 53 INTERPRETIVE STATEMENTS: Sinus rhythm with occasional premature ventricular complexes Left axis deviation Abnormal ECG Compared to ECG 12/05/2021 05:59:07 Ventricular premature complex(es) now present Sinus tachycardia no longer present Myocardial infarct finding no longer present Electronically Signed On 07-10-23 15:32:36 CDT by Misael Gutierrez
== END 2023-07-07 15:33 | disposition home or self-care (01) ==
LOC: ER 10:20
DX: J40 Bronchitis, not specified as acute or chronic (principal); R07.9 Chest pain, unspecified; J44.9 Chronic obstructive pulmonary disease, unspecified; I25.10 Atherosclerotic heart disease of native coronary artery without angina pectoris; F17.210 Nicotine dependence, cigarettes, uncomplicated; Z21 Asymptomatic human immunodeficiency virus [HIV] infection status; Z88.0 Allergy status to penicillin; Z88.2 Allergy status to sulfonamides; Z88.5 Allergy status to narcotic agent
CPT/HCPCS: 36415; 71045; 80048; 80076; 83735; 83880; 84484; 85025; 93005; 99285